=== PATIENT | female | born 1960 | race Caucasian/White ===

== ENCOUNTER 2018-05-09 13:10 | Emergency (ER) | payer OTHER ==
[2018-05-09] MEDS ORDERED: POTASSIUM 25 MEQ EFFERV TAB ONE (14:11)
[2018-05-09 14:29] LABS: Absolute Lymphocytes (CBC) 2.6 K/uL (0.7-4.9); Absolute Monocytes 0.5 K/uL (0.1-1.3); Absolute Neutrophil 7.3 K/uL (1.8-8.0); Basophils % 0.8 % (0-1.3); Hematocrit 40.6 % (36.0-45.0); Lymphocytes % 23.8 % (15.3-44.8); MCH 29.4 pg (27.0-35.0); MCV 87.8 fL (80-100); MPV 8.4 fL (7.6-11.3); Monocytes % 5.1 % (3.3-12.3); RBC Red Blood Cell Count 4.63 M/uL (3.86-4.86)
[2018-05-09 14:37] LABS: Albumin 3.7 g/dL (3.4-5.0); Bilirubin Direct 0.1 mg/dL (0-0.2); Bilirubin Total 0.4 mg/dL (0.2-1.0); Protein, Total 8.1 g/dL (6.4-8.2)
[2018-05-09 14:41] LABS: Potassium 2.6 mmol/L (3.5-5.1)
--- NOTE | 2018-05-09 15:33 | EDPHYS ---
Physician Documentation [facility] Name: Eliza Hill Age: 57 yrs Sex: Female : 1960 Arrival Date: 05/09/2018 Time: 13:13 Bed 28 Private MD: Nitin Fabian ED Physician Ezekiel Urbina HPI: 05/09 17:51 This 57 yrs old Female presents to ER via Ambulatory with complaints of wa Abnormal Lab Results - potassium. 17:51 "I was told to come in because my potassium is low" Per per, Dr. Fabian advised to come wa to ED due to low K on routine labs. admits to feeling generally tired. admits to taking HCTZ. states her doc has already advised her to stop that med. denies CP, SOB, abd pain, dizziness. . Onset: The symptoms/episode began/occurred today. Severity of symptoms: At their worst the symptoms were moderate in the emergency department the symptoms are unchanged. The patient has not experienced similar symptoms in the past. The patient has been recently seen by a physician: the patient's primary care provider, Dr. FABIAN. Historical: - Allergies: 13:38 Tramadol HCl; ph - PMHx: 13:38 COPD; Hypertension; Hypothyroidism; Osteoporosis; Arthritis; Diabetes - NIDDM; Chronic ph pain; - PSHx: 13:38 Hysterectomy; ph - Immunization history:: Adult Immunizations unknown. - Social history:: Smoking status: Patient/guardian denies using tobacco. - Ebola Screening: : No symptoms or risks identified at this time. - Family history:: not pertinent. - Hospitalizations: : No recent hospitalization is reported. ROS: 18:03 Constitutional: Negative for fever, chills, and weight loss, Eyes: Negative for injury, wa pain, redness, and discharge, ENT: Negative for injury, pain, and discharge, Neck: Negative for injury, pain, and swelling, Cardiovascular: Negative for chest pain, palpitations, and edema, Respiratory: Negative for shortness of breath, cough, wheezing, and pleuritic chest pain, Abdomen/GI: Negative for abdominal pain, nausea, vomiting, diarrhea, and constipation, Back: Negative for injury and pain, : Negative for injury, bleeding, discharge, and swelling, MS/Extremity: Negative for injury and deformity, Skin: Negative for injury, rash, and discoloration. 18:03 Neuro: Positive for weakness. 18:03 All other systems are negative. Exam: 18:04 Constitutional: This is a well developed, well nourished patient who is awake, alert, wa and in no acute distress. Head/Face: Normocephalic, atraumatic. Eyes: Pupils equal round and reactive to light, extra-ocular motions intact. Lids and lashes normal. Conjunctiva and sclera are non-icteric and not injected. Cornea within normal limits. Periorbital areas with no swelling, redness, or edema. ENT: Nares patent. No nasal discharge, no septal abnormalities noted. Tympanic membranes are normal and external auditory canals are clear. Oropharynx with no redness, swelling, or masses, exudates, or evidence of obstruction, uvula midline. Mucous membranes moist. Neck: Trachea midline, no thyromegaly or masses palpated, and no cervical lymphadenopathy. Supple, full range of motion without nuchal rigidity, or vertebral point tenderness. No Meningismus. Chest/axilla: Normal chest wall appearance and motion. Nontender with no deformity. No lesions are appreciated. Cardiovascular: Regular rate and rhythm with a normal S1 and S2. No gallops, murmurs, or rubs. Normal PMI, no JVD. No pulse deficits. Respiratory: Lungs have equal breath sounds bilaterally, clear to auscultation and percussion. No rales, rhonchi or wheezes noted. No increased work of breathing, no retractions or nasal flaring. Abdomen/GI: Soft, non-tender, with normal bowel sounds. No distension or tympany. No guarding or rebound. No evidence of tenderness throughout. Back: No spinal tenderness. No costovertebral tenderness. Full range of motion. Skin: Warm, dry with normal turgor. Normal color with no rashes, no lesions, and no evidence of cellulitis. MS/ Extremity: Pulses equal, no cyanosis. Neurovascular intact. Full, normal range of motion. Psych: Awake, alert, with orientation to person, place and time. Behavior, mood, and affect are within normal limits. 18:04 Neuro: Orientation: is normal, Memory: is normal, Cranial nerves: grossly normal. Vital Signs: 13:38 BP 115 / 59; Pulse 66; Resp 22; Temp 97.9; Pulse Ox 92% on R/A; Weight 113.4 kg; Height ph 5 ft. 3 in. (160.02 cm); 14:42 BP 111 / 56; Pulse 67; Resp 18; Pulse Ox 99% on R/A; kr2 15:23 BP 105 / 62; Pulse 70; Resp 17; Pulse Ox 97% on R/A; kr2 13:38 Body Mass Index 44.29 (113.40 kg, 160.02 cm) ph MDM: 13:34 Patient medically screened. me 18:05 Differential Diagnosis hypokalemia. will check labs. will replace. Data reviewed: vital me signs, nurses notes. Test interpretation: by ED physician or midlevel provider: . Test interpretation: by ED physician or midlevel provider: low K noted. ED course: replaced K po. d/c'd with K with close f/u with Dr. Fabian.. 05/09 13:51 Order name: Basic Metabolic Panel; Complete Time: 15:08 me 05/09 13:51 Order name: CBC with Diff; Complete Time: 15:08 me 05/09 13:51 Order name: Hepatic Function; Complete Time: 15:08 me 05/09 13:51 Order name: Urine Microscopic Only me 05/09 15:33 Order name: Urine Dipstick--Ancillary (enter results) 05/09 13:51 Order name: IV Saline Lock; Complete Time: 14:14 me 05/09 13:51 Order name: Labs collected and sent; Complete Time: 14:14 me 05/09 13:51 Order name: Urine Dipstick-Ancillary (obtain specimen); Complete Time: 15:22 me Administered Medications: 14:14 Drug: Potassium Effervescent Tablet 50 mEq Route: PO; kr2 14:43 Follow up: Response: No adverse reaction kr2 Disposition: 05/09/18 15:33 Discharged to Home. Impression: Acute Hypokalemia. - Condition is Stable. - Discharge Instructions: Hypokalemia. - Prescriptions for Potassium Chloride 10 mEq Oral Capsule, Sustained Release - take 4 tablet by ORAL route once daily for 5 days; 20 tablet. - Medication Reconciliation Form, Thank You Letter, Antibiotic Education, Prescription Opioid Use form. - Follow up: Nitin Fabian MD; When: 1 - 2 days; Reason: Recheck today's complaints. - Problem is new. - Symptoms have improved. - Notes: take potassium as prescribed. follow up with your doctor within 2-3 days for further assessement Signatures: Dispatcher [employer] Gin Worrell, RN RN Ezekiel Urbina MD MD wa Reaves, Karey RN RN kr2 Corrections: (The following items were deleted from the chart) 15:42 15:33 05/09/2018 15:33 Discharged to Home. Impression: Acute Hypokalemia. Condition is kr2 Stable. Forms are Medication Reconciliation Form, Thank You Letter, Antibiotic Education, Prescription Opioid Use. Follow up: Nitin Fabian; When: 1 - 2 days; Reason: Recheck today's complaints. Problem is new. Symptoms have improved. raissa
--- NOTE | 2018-05-09 15:33 | ER ---
Nurse's Notes [facility] Name: Eliza Hill Age: 57 yrs Sex: Female : 1960 Arrival Date: 05/09/2018 Time: 13:13 Bed 28 Private MD: Nitin Fabian Diagnosis: Acute Hypokalemia Presentation: 05/09 13:34 Presenting complaint: Patient states: " I had my bl;ood drawn this morning and they ph said my potassium was 2.8 and to come to the ER." Pt denies chest pain or palpitations, reports fatigue and idalmis lower leg tingling. Transition of care: patient was not received from another setting of care. Onset of symptoms was May 09, 2018. Risk Assessment: Do you want to hurt yourself or someone else? Patient reports no desire to harm self or others. Initial Sepsis Screen: Does the patient meet any 2 criteria? No. Patient's initial sepsis screen is negative. Does the patient have a suspected source of infection? No. Patient's initial sepsis screen is negative. Care prior to arrival: None. 13:34 Method Of Arrival: Ambulatory ph 13:34 Acuity: JENNA 3 ph Historical: - Allergies: 13:38 Tramadol HCl; ph - PMHx: 13:38 COPD; Hypertension; Hypothyroidism; Osteoporosis; Arthritis; Diabetes - NIDDM; Chronic ph pain; - PSHx: 13:38 Hysterectomy; ph - Immunization history:: Adult Immunizations unknown. - Social history:: Smoking status: Patient/guardian denies using tobacco. - Ebola Screening: : No symptoms or risks identified at this time. - Family history:: not pertinent. - Hospitalizations: : No recent hospitalization is reported. Screenin:30 Abuse screen: Denies threats or abuse. Denies injuries from another. Nutritional kr2 screening: No deficits noted. Tuberculosis screening: No symptoms or risk factors identified. Fall Risk None identified. Assessment: 13:30 General: Appears in no apparent distress. comfortable, well groomed, well developed, kr2 well nourished, Behavior is calm, cooperative, appropriate for age. Pain: Denies pain. Neuro: Level of Consciousness is awake, alert, obeys commands, Oriented to person, place, time, situation, Reports paresthesias in right leg and left leg. Cardiovascular: Heart tones S1 S2 Capillary refill < 3 seconds in bilateral fingers Patient's skin is warm and dry. Rhythm is regular. Cardiovascular: Reports fatigue, Denies chest pain. Respiratory: Airway is patent Respiratory effort is even, unlabored, Respiratory pattern is regular, symmetrical. GI: Abdomen is flat, non-distended. : Denies burning with urination. EENT: Oral mucosa is dry. Derm: Skin is intact, with poor turgor Skin is pink, warm \\T\\ dry. Musculoskeletal: Circulation, motion, and sensation intact. 14:43 Reassessment: Patient appears in no apparent distress at this time. Patient and/or kr2 family updated on plan of care and expected duration. Pain level reassessed. Patient is alert, oriented x 3, equal unlabored respirations, skin warm/dry/pink. Patient denies pain at this time. 15:22 Reassessment: Patient appears in no apparent distress at this time. Patient and/or kr2 family updated on plan of care and expected duration. Pain level reassessed. Patient is alert, oriented x 3, equal unlabored respirations, skin warm/dry/pink. Patient denies pain at this time. Vital Signs: 13:38 BP 115 / 59; Pulse 66; Resp 22; Temp 97.9; Pulse Ox 92% on R/A; Weight 113.4 kg; Height ph 5 ft. 3 in. (160.02 cm); 14:42 BP 111 / 56; Pulse 67; Resp 18; Pulse Ox 99% on R/A; kr2 15:23 BP 105 / 62; Pulse 70; Resp 17; Pulse Ox 97% on R/A; kr2 13:38 Body Mass Index 44.29 (113.40 kg, 160.02 cm) ph ED Course: 13:13 Patient arrived in ED. sb2 13:14 Nitin Fabian MD is Private Physician. sb2 13:30 Patient has correct armband on for positive identification. Bed in low position. Call kr2 light in reach. Side rails up X 1. residential monitor on. Pulse ox on. NIBP on. Door closed. Warm blanket given. Pillow given. Head of bed elevated. 13:33 Ezekiel Urbina MD is Attending Physician. wa 13:35 Triage completed. ph 13:39 Arm band placed on. ph 13:39 EKG done, by head of academic technology. reviewed by Ezekiel Urbina MD. sm3 13:56 Dolores Faulkner, RN is Primary Nurse. kr2 14:00 Inserted saline lock: 22 gauge in left antecubital area, using aseptic technique. Blood kr2 collected. 15:10 Urine collected: clean catch specimen, clear. kr2 15:32 Nitin Fabian MD is Referral Physician. wa 15:41 No provider procedures requiring assistance completed. IV discontinued, intact, kr2 bleeding controlled, No redness/swelling at site. Pressure dressing applied. Administered Medications: 14:14 Drug: Potassium Effervescent Tablet 50 mEq Route: PO; kr2 14:43 Follow up: Response: No adverse reaction kr2 Outcome: 15:33 Discharge ordered by . wa 15:41 Discharged to home ambulatory, with family. kr2 15:41 Condition: good 15:41 Discharge instructions given to patient, family, Instructed on discharge instructions, follow up and referral plans. medication usage, Demonstrated understanding of instructions, follow-up care, medications, Prescriptions given X 1. 15:42 Patient left the ED. kr2 Signatures: Gin Ramesh, RN RN Ezekiel Urbina MD MD mt Dolores Faulkner, RN RN kr2 Aster Torre sb2 Sarah Sanchez sm3
[2018-05-09 15:40] LABS: Urine Blood NEGATIVE (NEG); Urine Glucose NEGATIVE (NEG); Urine Protein NEGATIVE (NEG); Urine Specific Gravity 1.025 (1.005-1.030); Urine pH 6.5 (5.0-7.0)
[2018-05-09 15:41] LABS: Urine Bacteria <20 /HPF (<20); Urine Culture Reflex Order NOT NEEDED; Urine Mucus 1+ /HPF (NONE SEEN); Urine RBC <5 /HPF (NONE SEEN)
[2018-05-09 15:56] VITALS: TEMP 97.9
[2018-05-09 15:58] VITALS: BP 105/62; O2SAT 97
--- NOTE | 2018-05-10 13:55 | EKG ---
Test Date: 2018-05-09 Test Time: 13:30:36 Erp Business Analyst: NAHOMI MEASUREMENT RESULTS: Intervals: Rate: 66 UT: 154 QRSD: 84 QT: 390 QTc: 408 [place]: P: 37 UT: 154 QRS: 8 T: 167 INTERPRETIVE STATEMENTS: Normal sinus rhythm Inferior infarct, age undetermined Cannot rule out Anterior infarct, age undetermined ST & T wave abnormality, consider lateral ischemia Abnormal ECG Compared to ECG 02/26/2015 16:32:34 Myocardial infarct finding now present ST (T wave) deviation now present Possible ischemia now present Electronically Signed On 05-10-18 13:52:14 CDT by Apolinar Mccain
== END 2018-05-09 15:42 | disposition home or self-care (01) ==
LOC: ER 13:10
DX: E87.6 Hypokalemia (principal); J44.9 Chronic obstructive pulmonary disease, unspecified; E03.9 Hypothyroidism, unspecified; E11.9 Type 2 diabetes mellitus without complications; I10 Essential (primary) hypertension
CPT/HCPCS: 36415; 80048; 80076; 81003; 81015; 85025; 93005; 99284

== ENCOUNTER 2020-03-03 19:41 | Emergency (ER) | payer OTHER ==
--- OUTSIDE RECORDS SUMMARY | 2020-03-03 19:44 | XMS REPORT ---
:1960 Author Organization [facility] t Address [address] [place] [address] [address]. [address] [place] [address] Care Team Providers Name Role Phone Unavailable Unavailable Unavailable Problems Condition Condition Condition Status Onset Resolution Last Treatin g Comments Name Details Category Date Date Treatment Clinician Date Dependence Dependence Problem Active on other on other enabling enabling machines machines and devices and devices Essential Essential Problem Active (primary) (primary) hypertensio hypertensio n n Obstructive Obstructive Problem Active sleep apnea sleep apnea (adult) (adult) (pediatric) (pediatric) Acquired Acquired Problem Active hypothyroid hypothyroid ism ism Generalized Generalized Problem Active anxiety anxiety disorder disorder GERD GERD Problem Active without without esophagitis esophagitis Current Current Problem Active moderate moderate episode of episode of major major depressive depressive disorder disorder without without prior prior episode episode Chronic Chronic Problem Active depression depression Restless Restless Problem Active leg leg syndrome syndrome Morbid Morbid Problem Active (severe) (severe) obesity due obesity due to excess to excess calories calories Insomnia, Insomnia, Problem Active unspecified unspecified type type Controlled Controlled Problem Active type 2 type 2 diabetes diabetes mellitus mellitus without without complicatio complicatio n, without n, without long-term long-term current use current use of insulin of insulin Primary Primary Problem Active osteoarthri osteoarthri tis of both tis of both knees knees Status post Status post Problem Active right knee right knee replacement replacement Chronic Chronic Problem Active obstructive obstructive pulmonary pulmonary disease, disease, unspecified unspecified COPD type COPD type Mixed Mixed Problem Active hyperlipide hyperlipide tonya tonya Urinary Urinary Problem Active incontinenc incontinenc e, e, unspecified unspecified type type Mixed Mixed Problem Active stress and stress and urge urge urinary urinary incontinenc incontinenc e e Status post Status post Problem Active total left total left knee knee replacement replacement Allergies, Adverse Reactions, Alerts Allergy Name Allergy Status Severity Reaction(s) Onset Inactive Treat ing Comments Type Date Date Clinician Toradol Adverse Active Info Not Reaction Available Wellbutrin Adverse Active Info Not Reaction Available Medications Ordered Filled Start Stop Current Ordering Indication Dosage Frequency Signature Comments Components Medication Medication Date Date Medication? Clinician (SIG) Name Name Levi Sims 2019-0 2019- No Reji 1 puff Karen Jones 02-27 Farris 00:00: 00:00 00 :00 HydrOXYzine HydrOXYzine Yes Reji 1 table t HCl HCl Farris as needed Ropinirole Ropinirole Yes Reji 1 tablet 1 HCl HCl Farris to 3 hours before bedtime ReliOn ReliOn Yes Reji as Prime Test Prime Test Farris directed Pantoprazol Pantoprazol Yes Reji 1 table t e Sodium e Sodium Farris Verapamil Verapamil Yes Reji 1 tablet HCl ER HCl ER Farris Accu-Chek Accu-Chek Yes Reji as FastClix FastClix Farris directed Lancets Lancets Albuterol Albuterol Yes Reji 3 ml as Sulfate Sulfate Farris needed CPAP CPAP Yes Reji nightly Machine Machine Farris Clonazepam Clonazepam Yes Reji 1 tablet Farris at bedtime Levothyroxi Levothyroxi Yes Reji 1 table t ne Sodium ne Sodium Farris on an empty stomach in the morning Losartan Losartan Yes Reji 1 tablet Potassium Potassium Farris Metformin Metformin Yes Reji 1 tablet HCl HCl Farris with a meal Atorvastati Atorvastati Yes Reji 1 table t n Calcium n Calcium Farris Gabapentin Gabapentin Yes Reji 1 capsule Farris OneTouch OneTouch Yes Reji TEST BLOOD Verio Verio Farris SUGAR ONCE A DAY Losartan Losartan Yes Reji 1 tablet Potassium Potassium Farris Quetiapine Quetiapine Yes Reji 1 tablet Fumarate Fumarate Farris Venlafaxine Venlafaxine Yes Reji 1 capsu le HCl ER HCl ER Farris with food Spironolact Spironolact Yes Reji 1 table t one one Farris Diclofenac Diclofenac Yes Reji as Sodium Sodium Farris directed Hydrocodone Hydrocodone Yes Reji 1 table t -Acetaminop -Acetaminop Farris as neede d hen hen Metformin Metformin Yes Reji 1/2 tablet HCl HCl Farris Pantoprazol Pantoprazol Yes Reji 1 table t e Sodium e Sodium Farris Amitriptyli Amitriptyli Yes Reji 1 table t ne HCl ne HCl Farris at bedtime Sertraline Sertraline Yes Reji 1 tablet HCl HCl Farris Encounters Start End Encounter Admission Attending Care Care Encounter Date/Time Date/Time Type Type Clinicians Facility Department ID 2020-01-22 2020-01-22 [id number] 08:39:00 08:39:00 [facility] 2020-01-20 2020-01-20 [facility] [id number] 11:28:00 11:28:00 [facility] 2020-01-02 2020-01-02 [id number] 14:00:00 14:00:00 [facility] 2019-12-23 2019-12-23 [facility] [id number] 15:26:00 15:26:00 [facility] 2019-12-04 2019-12-04 [facility] [id number] 13:45:00 13:45:00 [facility] 2019-11-27 2019-11-27 [facility] [id number] 11:15:00 11:15:00 [facility] 2019-10-31 2019-10-31 [facility] [id number] 17:29:00 17:29:00 [facility] 2019-09-30 2019-09-30 [facility] [id number] 16:54:00 16:54:00 [facility] 2019-09-04 2019-09-04 [facility] [id number] 09:00:00 09:00:00 [facility] 2019-05-30 2019-05-30 [id number] 10:45:00 10:45:00 Specialty/U [facility] 2019-05-20 2019-05-20 [facility] [id number] 15:00:00 15:00:00 [facility] 2019-05-08 2019-05-08 [facility] [id number] 09:45:00 09:45:00 [facility] 2019-04-03 2019-04-03 [id number] 12:00:00 12:00:[address] [facility] 2019-03-01 2019-03-01 [facility] [id number] 09:51:00 09:51:[address] [facility] 2019-02-27 2019-02-27 [facility] [id number] 13:45:00 13:45:[address] [facility] 2019-02-04 2019-02-04 [id number] 14:34:00 14:34:[address] [facility] 2019-01-30 2019-01-30 [facility] [id number] 10:33:00 10:33:[address] [facility] 2019-01-29 2019-01-29 [id number] 14:00:00 14:00:[address] [facility] 2018-12-26 2018-12-26 [facility] [id number] 16:11:00 16:11:[address] [facility] 2018 2018 [id number] 14:30:00 14:30:[address] [facility] 2018-12-12 2018-12-12 [id number] 14:31:00 14:31:[address] [facility] 2018-12-11 2018-12-11 [id number] 14:00:00 14:00:[address] [facility] 2018-12-11 2018-12-11 [id number] 09:30:00 09:30:00 [facility] 2018-12-05 2018-12-05 [id number] 09:21:00 09:21:[address] [facility] 2018-12-04 2018-12-04 [id number] 14:45:00 [facility]45:[facility] 2018-12-04 2018-12-04 [id number] 12:18:00 12:18:00 [facility] [employer] [facility] 2018-11-28 2018-11-28 [facility] [id number] 14:45:00 14:45:00 [facility] [employer] [facility] 2018-11-27 2018-11-27 [facility] [id number] 12:23:00 12:23:00 [facility] [employer] [facility] 2018-11-05 2018-11-05 [facility] [id number] 15:27:00 15:27:00 [facility] [employer] [facility] 2018-10-29 2018-10-29 [facility] [id number] 15:06:00 15:06:00 [facility] 2018-10-02 2018-10-02 [facility] [id number] 14:30:00 14:30:00 [facility]
--- OUTSIDE RECORDS SUMMARY | 2020-03-03 19:45 | XMS REPORT ---
:1960 Author Organization [employer] Care Team Providers Name Role Phone FarrisReji Provider Role Unavailable Allergies No Known Allergies Problems Problem Type Condition Code Onset Dates Condition Statu s Problem Chronic depression F32.9 Active Problem 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 Problem Primary osteoarthritis of both M17.0 Active knees Problem Morbid (severe) obesity due to E66.01 Active excess calories Problem Essential (primary) hypertension I10 Active Problem Acquired hypothyroidism E03.9 Acti ve Problem GERD without esophagitis K21.9 Act nadine Problem Insomnia, unspecified type G47.00 A ctive Problem Controlled type 2 diabetes mellitus E11.9 Active without complication, without long-term current use of insulin Problem Status post right knee replacement Z96.651 Active Problem Obstructive sleep apnea (adult) G47.33 Active (pediatric) Problem Restless leg syndrome G25.81 Active Problem Current moderate episode of major F32.1 Active depressive disorder without prior episode Problem Generalized anxiety disorder F41.1 Active Medications No Known Medications Results No Known Results Summary Purpose [employer] Submission
--- OUTSIDE RECORDS SUMMARY | 2020-03-03 19:45 | XMS REPORT ---
:1960 Author Organization [employer]Works Care Team Providers Name Role Phone Talya Farrish Provider Role Unavailable Allergies, Adverse Reactions, Alerts Substance Reaction Event Type Toradol Info Not Available Drug Allergy Wellbutrin Info Not Available Drug Allergy Problems Problem Type Condition Code Onset Dates Condition Statu s Problem Chronic depression F32.9 Active Problem 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 Problem Primary osteoarthritis of both M17.0 Active knees Problem Insomnia, unspecified type G47.00 A ctive [...] episode Problem Generalized anxiety disorder F41.1 Active Assessment Primary osteoarthritis of both M17.0 Active knees Problem Morbid (severe) obesity due to E66.01 Active excess calories Problem Essential (primary) hypertension I10 Active Assessment Status post right knee replacement Z96.651 Active Problem Acquired hypothyroidism E03.9 Acti ve Problem GERD without esophagitis K21.9 Act nadine Medications Medication Code Code Instructions Start End Status Dosage System Date Date Ropinirole HCl ND 18692615579 2 MG Orally Active 1 tablet 1 Once a day to 3 hours before bedtime HydrOXYzine HCl ND 56079942457 25 MG Orally Active 1 tablet every 8 hrs as needed ReliOn Prime Test ND 73435418109 - In Vitro Active as twice a day directed Pantoprazole Sodium NDC 11892822547 40 MG Orally Act nadine 1 tablet Once a day HydrOXYzine HCl NDC 68063729500 50 MG/ML Nov 27, Active 1 t ablet Intramuscular 2019 as needed every 8 hrs PRN for Itching itching Metformin HCl ND 70888308770 500 MG Orally Active 1 tablet Twice a day with a meal Tylenol # 3 NDC 0 300/30mg PO BID Active one tab PRN Verapamil HCl ER ND 55360523851 120 MG Orally Activ e 1 tablet Once a day Accu-Chek FastClix ND 13270322851 - in vitro Active as Lancets twice daily directed Venlafaxine HCl ER ND 04775713282 150 MG Orally Act nadine as directed Venlafaxine HCl ER ND 89282531920 37.5 MG Orally Ac tive 1 capsule Once a day with food Albuterol Sulfate ND 69732042980 (2.5 MG/3ML) Activ e 3 ml as 0.083% needed Inhalation Three times a day MethylPREDNISolone ND 87469304676 4 MG Orally Use Nov 28, A ctive as as directed 2018 directed CPAP Machine ND 0 max pressure 9 Active nigh tly cm of water Losartan Potassium ND 89086948733 100 MG Orally Act nadine 1 tablet Once a day Clonazepam ND 32933458653 0.5 MG Orally Active 1 t ablet Once a day at bedtime Levothyroxine Sodium ND 03848429106 100 MCG Orally Active 1 tablet Once a day on an empty stomach in the morning Quetiapine Fumarate ND 35661407081 200 MG Orally Ac tive 1 tablet Once a day Results No Known Results Summary Purpose eClinicalWorks Submission
--- OUTSIDE RECORDS SUMMARY | 2020-03-03 19:46 | XMS REPORT ---
:1960 Author Organization [employer] Care Team Providers Name Role Phone Brenton Reji Provider Role Unavailable Allergies No Known Allergies Problems Problem Type Condition Code Onset Dates Condition Statu s Problem Controlled type 2 diabetes mellitus E11.9 Active without complication, without long-term current use of insulin Problem Primary osteoarthritis of both M17.0 Active knees Problem Insomnia, unspecified type G47.00 A ctive Problem Chronic obstructive pulmonary J44.9 Active disease, unspecified COPD type Problem Mixed hyperlipidemia E78.2 Active Problem Status post right knee replacement Z96.651 Active Problem Obstructive sleep apnea (adult) G47.33 Active (pediatric) Problem Restless leg syndrome G25.81 Active Problem 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
--- OUTSIDE RECORDS SUMMARY | 2020-03-03 19:46 | XMS REPORT ---
:1960 Author Organization [employer] Care Team Providers Name Role Phone Dary Kristen Provider Role Unavailable Allergies, Adverse Reactions, Alerts Substance Reaction Event Type Toradol Info Not Available Drug Allergy Wellbutrin Info Not Available Drug Allergy Problems Problem Type Condition Code Onset Dates Condition Statu s Problem Primary osteoarthritis of both M17.0 Active knees Problem Obstructive sleep apnea (adult) G47.33 Active (pediatric) Problem Restless leg syndrome G25.81 Active Problem Urinary incontinence, unspecified R32 Active type Problem Status post right knee replacement Z96.651 Active Problem Mixed stress and urge 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 Problem 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 Problem Generalized anxiety disorder F41.1 Active Problem Chronic obstructive pulmonary J44.9 Active disease, unspecified COPD type Problem Mixed hyperlipidemia E78.2 Active Problem Morbid (severe) obesity due to E66.01 Active excess calories Problem GERD without esophagitis K21.9 Act nadine Assessment Mixed stress and urge 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 Problem Chronic depression F32.9 Active Problem Current moderate episode of major F32.1 Active depressive disorder without prior episode Problem Essential (primary) hypertension I10 Active Problem Controlled type 2 diabetes mellitus E11.9 Active without complication, without long-term current use of insulin Problem Acquired hypothyroidism E03.9 Acti ve Problem Insomnia, unspecified type G47.00 A ctive Medications Medication Code Code Instructions Start End Status Dosage System Date Date Levothyroxine ND 73130243754 100 MCG Orally Active 1 tablet Sodium Once a day on an empty stomach in the morning Quetiapine ND 19446141685 200 MG Orally Active 1 t ablet Fumarate Once a day Ropinirole HCl ND 99415452282 2 MG Orally Active 1 tablet 1 Once a day to 3 hours before bedtime Verapamil HCl ER ND 70443467170 120 MG Orally Activ e 1 tablet Once a day Metformin HCl ND 09072314051 500 MG Orally Active 1 tablet Twice a day with a meal Atorvastatin ND 16228289050 20 MG Orally Active 1 tablet Calcium Once a day Albuterol ND 10650716640 (2.5 MG/3ML) Active 3 ml as Sulfate 0.083% needed Inhalation Three times a day Clonazepam ND 59690279979 0.5 MG Orally Active 1 t ablet Once a day at bedtime Levothyroxine ND 65535707716 100 MCG Orally Active 1 tablet Sodium Once a day on an empty stomach in the morning Accu-Chek [facility] 36474969223 - in vitro Active as FastClix Lancets twice daily dir ected Metformin HCl [facility] 92380789172 500 MG Orally Active 1 tablet Twice a day with a meal Venlafaxine HCl [facility] 87066199595 150 MG Orally Active as ER directed HydrOXYzine HCl [facility] 10210685556 25 MG Orally Active 1 tablet every 8 hrs as needed Breo Ellipta [facility] 73013000748 100-25 MCG/INH Active 1 puff Inhalation Once a day CPAP Machine [facility] 0 max pressure 9 Active nigh tly cm of water Pantoprazole [facility] 54593051394 40 MG Orally Active 1 tablet Sodium Once a day Hydrocodone-Acet [facility] [address]-51 7.5-500 MG Active as aminophen Orally directed Pantoprazole [facility] 19501403441 40 MG Orally Active 1 tablet Sodium Once a day ReliOn Prime [facility] 74495217730 - In Vitro Active as Test twice a day directed Losartan [facility] 53326382314 100 MG Orally Active 1 tab let Potassium Once a day Losartan [facility] 35279684078 100 MG Orally Active 1 tab let Potassium Once a day Results Name Result Date Reference Range Unit Abnormali ty Flag URINALYSIS AUTO W/O SCOPE (37993) ----NIT neg 20190530 ----URO 0.2 20190530 ----PROTEIN neg 20190530 ----pH 5.0 20190530 ----BLO neg 20190530 ----GLUCOSE neg 20190530 ----RITA neg 20190530 ----BILIRUBIN neg 20190530 ----KETONES neg 20190530 ----SPECIFIC GRAVITY 1.015 20190530 Summary Purpose eClinicalWorks Submission
--- OUTSIDE RECORDS SUMMARY | 2020-03-03 19:46 | XMS REPORT ---
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 Assessment Obstructive sleep apnea (adult) G47.33 Active (pediatric) Assessment Generalized anxiety disorder F41.1 Active Assessment Current moderate episode of major F32.1 Active depressive disorder without prior episode Assessment Morbid (severe) obesity due to E66.01 Active excess calories Assessment Primary osteoarthritis of both M17.0 Active knees Problem Chronic depression F32.9 Active Assessment Chronic obstructive pulmonary J44.9 Active disease, unspecified COPD type Problem Current moderate episode of major F32.1 Active depressive disorder without prior episode Assessment Restless leg syndrome G25.81 Active Problem Controlled type 2 diabetes mellitus E11.9 Active without complication, without long-term current use of insulin Problem Primary osteoarthritis of both M17.0 Active knees Problem Insomnia, unspecified type G47.00 A ctive Problem Chronic obstructive pulmonary J44.9 Active disease, unspecified COPD type Problem Mixed hyperlipidemia E78.2 Active Assessment Acquired hypothyroidism E03.9 Acti ve Assessment Insomnia, unspecified type G47.00 A ctive Problem Status post right knee replacement Z96.651 Active Assessment GERD without esophagitis K21.9 Act nadine Problem Obstructive sleep apnea (adult) G47.33 Active (pediatric) Problem Restless leg syndrome G25.81 Active Problem 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 Problem Generalized anxiety disorder F41.1 Active Assessment Mixed hyperlipidemia E78.2 Active Assessment Essential (primary) hypertension I10 Active Assessment Controlled type 2 diabetes mellitus E11.9 Active without complication, without long-term current use of insulin Problem Essential (primary) hypertension I10 Active Problem Acquired hypothyroidism E03.9 Acti ve Problem Morbid (severe) obesity due to E66.01 Active excess calories Problem GERD without esophagitis K21.9 Act nadine Medications Medication Code Code Instructions Start End Status Dosage System Date Date Atorvastatin ND 78802844468 10 MG Orally February 27, Active 1 tablet Calcium Once a day 2018 Breo Ellipta ND 11955615714 100-25 MCG/INH February 27May Active 1 puff Inhalation Once 2018 06, a day 2018 CPAP Machine [facility] 0 max pressure 9 Active nigh tly cm of water HydrOXYzine HCl ND 68872449227 25 MG Orally Active 1 tablet every 8 hrs as needed Losartan ND 25474761630 100 MG Orally Active 1 tab let Potassium Once a day Ropinirole HCl ND 40146690094 2 MG Orally Active 1 tablet 1 Once a day to 3 hours before bedtime Levothyroxine ND 52396038490 100 MCG Orally Active 1 tablet Sodium Once a day on an empty stomach in the morning Metformin HCl ND 70625776079 500 MG Orally Active 1 tablet Twice a day with a meal Verapamil HCl ER ND 98325207818 120 MG Orally Activ e 1 tablet Once a day Albuterol ND 28552088983 (2.5 MG/3ML) Active 3 ml as Sulfate 0.083% needed Inhalation Three times a day ReliOn Prime ND 17033362611 - In Vitro Active as Test twice a day directed Accu-Chek [facility] 52274734550 - in vitro Active as FastClix Lancets twice daily dir ected Levothyroxine ND 62748059954 100 MCG Orally Active 1 tablet Sodium Once a day on an empty stomach in the morning Clonazepam ND 19662746885 0.5 MG Orally Active 1 t ablet Once a day at bedtime Venlafaxine HCl ND 39448515875 150 MG Orally Active as ER directed Hydrocodone-Acet [facility] [address]-25 7.5-500 MG Active as aminophen Orally directed Quetiapine ND 64724810853 200 MG Orally Active 1 t ablet Fumarate Once a day Pantoprazole ND 39289215774 40 MG Orally Active 1 tablet Sodium Once a day Venlafaxine HCl ND 62911439136 37.5 MG Orally Activ e 1 capsule ER Once a day with food Results No Known Results Summary Purpose eClinicalWorks Submission
--- OUTSIDE RECORDS SUMMARY | 2020-03-03 19:46 | XMS REPORT ---
[...] Problem Generalized anxiety disorder F41.1 Active Assessment Follow-up exam Z09 Active Assessment Intractable headache, unspecified R51 Active chronicity pattern, unspecified headache type Problem Essential (primary) hypertension I10 Active Problem Acquired hypothyroidism E03.9 Acti ve Problem Morbid (severe) obesity due to E66.01 Active excess calories Problem Chronic depression F32.9 Active Problem GERD without esophagitis K21.9 Act nadine Problem Current moderate episode of major F32.1 Active depressive disorder without prior episode Medications Medication Code Code Instructions Start End Status Dosage System Date Date Levothyroxine ND 97381144799 100 MCG Orally Active 1 tablet Sodium Once a day on an empty stomach in the morning Clonazepam ND 02804587954 0.5 MG Orally Active 1 t ablet Once a day at bedtime ReliOn Prime ND 61487023438 - In Vitro Active as Test twice a day directed Accu-Chek [facility] 84196818369 - in vitro Active as FastClix Lancets twice daily dir ected Verapamil HCl ER ND 83381963431 120 MG Orally Activ e 1 tablet Once a day Atorvastatin ND 96242413380 10 MG Orally February 27, Active 1 tablet Calcium Once a day 2018 Albuterol [facility] 29421321921 (2.5 MG/3ML) Active 3 ml as Sulfate 0.083% needed Inhalation Three times a day Venlafaxine HCl ND 05792374946 150 MG Orally Active as ER directed Pantoprazole ND 44667794584 40 MG Orally Active 1 tablet Sodium Once a day Metformin HCl [facility] 99328350875 500 MG Orally Active 1 tablet Twice a day with a meal Quetiapine ND 20922487397 200 MG Orally Active 1 t ablet Fumarate Once a day CPAP Machine [facility] 0 max pressure 9 Active nigh tly cm of water Ropinirole HCl [facility] 43883333393 2 MG Orally Active 1 tablet 1 Once a day to 3 hours before bedtime HydrOXYzine HCl [facility] 12687879275 25 MG Orally Active 1 tablet every 8 hrs as needed Hydrocodone-Acet [facility] [address]-82 7.5-500 MG Active as aminophen Orally directed Breo Ellipta [facility] 79540941813 100-25 MCG/INH February 27May Active 1 puff Inhalation Once 2018 06, a day 2018 Losartan [facility] 14419942378 100 MG Orally Active 1 tab let Potassium Once a day Results No Known Results Summary Purpose eClinicalWorks Submission
--- OUTSIDE RECORDS SUMMARY | 2020-03-03 19:46 | XMS REPORT ---
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 Assessment Generalized anxiety disorder F41.1 Active Assessment Current moderate episode of major F32.1 Active depressive disorder without prior episode Assessment Morbid (severe) obesity due to E66.01 Active excess calories Assessment Primary osteoarthritis of both M17.0 Active knees Assessment Chronic obstructive pulmonary J44.9 Active disease, unspecified COPD type Problem Current moderate episode of major F32.1 Active depressive disorder without prior episode Assessment Restless leg syndrome G25.81 Active Problem Controlled type 2 diabetes mellitus E11.9 Active without complication, without long-term current use of insulin Assessment GERD without esophagitis K21.9 Act nadine Problem Insomnia, unspecified type G47.00 A ctive Problem Restless leg syndrome G25.81 Active Problem Primary osteoarthritis of both M17.0 Active knees Problem Status post right knee replacement Z96.651 Active Problem Chronic obstructive pulmonary J44.9 Active disease, unspecified COPD type Assessment Essential (primary) hypertension I10 Active Assessment Acquired hypothyroidism E03.9 Acti ve Problem Urinary incontinence, unspecified R32 Active type Assessment Insomnia, unspecified type G47.00 A ctive Problem Generalized anxiety disorder F41.1 Active Problem Obstructive sleep apnea (adult) G47.33 Active (pediatric) Problem Mixed hyperlipidemia E78.2 Active Problem 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 82213312342 150 MG Orally Active as ER directed Albuterol [facility] 32354496195 (2.5 MG/3ML) Active 3 ml as Sulfate 0.083% needed Inhalation Three times a day Levothyroxine ND 25134175049 100 MCG Orally Active 1 tablet Sodium Once a day on an empty stomach in the morning Pantoprazole [facility] 98867495971 40 MG Orally Active 1 tablet Sodium Once a day Clonazepam ND 82653341190 0.5 MG Orally Active 1 t ablet Once a day at bedtime Verapamil HCl ER ND 65851525397 120 MG Orally Activ e 1 tablet Once a day CPAP Machine [facility] 0 max pressure 9 Active nigh tly cm of water HydrOXYzine HCl [facility] 68184592316 25 MG Orally Active 1 tablet every 8 hrs as needed Breo Ellipta [facility] 46158238524 100-25 MCG/INH Active 1 puff Inhalation Once a day Metformin HCl [facility] 50548846298 500 MG Orally Active 1 tablet Twice a day with a meal ReliOn Prime [facility] 03391716900 - In Vitro Active as Test twice a day directed Losartan [facility] 98646088749 100 MG Orally Active 1 tab let Potassium Once a day Levothyroxine [facility] 36826929445 100 MCG Orally Active 1 tablet Sodium Once a day on an empty stomach in the morning Metformin HCl [facility] 17940623152 500 MG Orally Active 1 tablet Twice a day with a meal Hydrocodone-Acet [facility] [address]-65 7.5-500 MG Active as aminophen Orally directed Losartan [facility] 29965363668 100 MG Orally Active 1 tab let Potassium Once a day Pantoprazole ND 64563205635 40 MG Orally Active 1 tablet Sodium Once a day Atorvastatin ND 63077194432 20 MG Orally Active 1 tablet Calcium Once a day Ropinirole HCl [facility] 77472445073 2 MG Orally Active 1 tablet 1 Once a day to 3 hours before bedtime Quetiapine ND 56652974632 200 MG Orally Active 1 t ablet Fumarate Once a day Accu-Chek [facility] 72558237758 - in vitro Active as FastClix Lancets twice daily dir ected Results No Known Results Summary Purpose eClinicalWorks Submission
--- OUTSIDE RECORDS SUMMARY | 2020-03-03 19:47 | XMS REPORT ---
[...] GERD without esophagitis K21.9 Act nadine Assessment Chronic depression F32.9 Active Problem Chronic depression F32.9 Active Problem Current moderate episode of major F32.1 Active depressive disorder without prior episode Problem Essential (primary) hypertension I10 Active Problem Controlled type 2 diabetes mellitus E11.9 Active without complication, without long-term current use of insulin Problem Acquired hypothyroidism E03.9 Acti ve Problem Insomnia, unspecified type G47.00 A ctive Medications No Known Medications Results No Known Results Summary Purpose eClinicalWorks Submission
--- OUTSIDE RECORDS SUMMARY | 2020-03-03 19:47 | XMS REPORT ---
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 Assessment Urinary incontinence, unspecified R32 Active type Assessment Generalized anxiety disorder F41.1 Active Assessment Obstructive sleep apnea (adult) G47.33 Active (pediatric) Assessment Current moderate episode of major F32.1 Active depressive disorder without prior episode Assessment Morbid (severe) obesity due to E66.01 Active excess calories Assessment Primary osteoarthritis of both M17.0 Active knees Assessment Chronic obstructive pulmonary J44.9 Active disease, unspecified COPD type Assessment Restless leg syndrome G25.81 Active Problem Controlled type 2 diabetes mellitus E11.9 Active without complication, without long-term current use of insulin Assessment GERD without esophagitis K21.9 Act nadine Problem Insomnia, unspecified type G47.00 A ctive Assessment Insomnia, unspecified type G47.00 A ctive Problem Primary osteoarthritis of both M17.0 Active knees Problem Obstructive sleep apnea (adult) G47.33 Active (pediatric) Problem Restless leg syndrome G25.81 Active Problem Urinary incontinence, unspecified R32 Active type Problem Status post right knee replacement Z96.651 Active Assessment Controlled type 2 diabetes mellitus E11.9 Active without complication, without long-term current use of insulin Assessment Essential (primary) hypertension I10 Active Problem Mixed stress and urge 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 Assessment Acquired hypothyroidism E03.9 Acti ve Problem 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 Problem Generalized anxiety disorder F41.1 Active Problem Chronic obstructive pulmonary J44.9 Active disease, unspecified COPD type Problem Mixed hyperlipidemia E78.2 Active Problem Morbid (severe) obesity due to E66.01 Active excess calories Problem GERD without esophagitis K21.9 Act nadine Assessment Mixed hyperlipidemia E78.2 Active Problem Chronic depression F32.9 Active Problem Current moderate episode of major F32.1 Active depressive disorder without prior episode Problem Essential (primary) hypertension I10 Active Problem Acquired hypothyroidism E03.9 Acti ve Medications Medication Code Code Instructions Start End Status Dosage System Date Date CPAP Machine ND 0 max pressure 9 Active nigh tly cm of water Quetiapine ND 91364004310 200 MG Orally Active 1 t ablet Fumarate Once a day Metformin HCl [facility] 76440889713 500 MG Orally Active 1 tablet Twice a day with a meal Losartan ND 82948019834 100 MG Orally Active 1 tab let Potassium Once a day Gabapentin ND 06889227208 300 MG Orally Active 1 c apsule Once a day Breo Ellipta [facility] 43117906104 100-25 MCG/INH Active 1 puff Inhalation Once a day Ropinirole HCl [facility] 90059356608 2 MG Orally Active 1 tablet 1 Once a day to 3 hours before bedtime Atorvastatin [facility] 77983105228 20 MG Orally Active 1 tablet Calcium Once a day ReliOn Prime [facility] 98883592166 - In Vitro Active as Test twice a day directed Venlafaxine HCl [facility] 99025275635 150 MG Orally Active as ER directed Atorvastatin [facility] 66058520609 20 MG Orally Active 1 tablet Calcium Once a day Verapamil HCl ER [facility] 94679167170 120 MG Orally Activ e 1 tablet Once a day Hydrocodone-Acet [facility] [address]-72 7.5-500 MG Active as aminophen Orally directed Clonazepam [facility] 88541412181 0.5 MG Orally Active 1 t ablet Once a day at bedtime Levothyroxine [facility] 35492539531 100 MCG Orally Active 1 tablet Sodium Once a day on an empty stomach in the morning HydrOXYzine HCl [facility] 96585666464 25 MG Orally Active 1 tablet every 8 hrs as needed Venlafaxine HCl [facility] 69397082446 75 MG Orally Active 1 tablet Once a day with food Pantoprazole [facility] 40684871667 40 MG Orally Active 1 tablet Sodium Once a day Accu-Chek [facility] 41614635981 - in vitro Active as FastClix Lancets twice daily dir ected Albuterol [facility] 99477191433 (2.5 MG/3ML) Active 3 ml as Sulfate 0.083% needed Inhalation Three times a day Results No Known Results Summary Purpose eClinicalWorks Submission
--- OUTSIDE RECORDS SUMMARY | 2020-03-03 19:47 | XMS REPORT ---
[...] GERD without esophagitis K21.9 Act nadine Problem Chronic depression F32.9 Active Problem Current [...]
--- OUTSIDE RECORDS SUMMARY | 2020-03-03 19:47 | XMS REPORT | Summary of Care ---
:1960 Author Organization [facility] Address [address] [place] [address] Care Team Providers Name Role Phone Rey Farris Primary Care Provider Reason for Visit Reason Comments Refill Request Encounter Details Date Type Department Care Team Description 06/13/2019 Refill [facility] Orthopaedic Rolf, Steven rain S, PAC Refill Request Surgery- [place] [address], [place] [address] [place] [address] [address] [place] [address] [phone] Allergies Active Allergy Reactions Severity Noted Date Comments Bupropion Hcl Itching 04/06/2016 Codeine Itching 08/04/2015 Hyper- is able to take but has to have a counter reaction for th e itching. - per pt. No longer aller gic, when she takes codeine she has to eat.Eliza rasheed MA 01/18/2016 4:26 PM Latex, Natural Rubber Itching Medium 01/08/2019 Ketorolac Tromethamine Anaphylaxis 08/04/2015 Bupropion Unknown - See comments 08/04/2015 Zolpidem Unknown - See comments 04/06/2016 Sleep walk documented as of this encounter (statuses as of 06/13/2019) Medications Medication Sig Dispensed Refills Start Date End Date Status losartan (COZAAR) 50 mg 100 mg daily. 0 07/14/2015 Active tablet HYDROcodone-acetaminophe Take 1 tablet 0 Active n (NORCO) 10-325 mg by mouth every tablet 6 (six) hours as needed. verapamil (VERELAN PM) Take 120 mg by 0 Active 120 mg 24 hr capsule mouth. atorvastatin 80 mg Take 80 mg by 0 Active tablet mouth. Levothyroxine 100 mcg Take 100 mcg 0 Active capsule by mouth. BREO ELLIPTA 100-25 0 03/25/2016 Active mcg/dose DsDv QUEtiapine 200 mg tablet Take 200 mg by 0 Active mouth at bedtime. metFORMIN 500 mg tablet Take 500 mg by 0 Active mouth 2 (two) times daily with meals. rOPINIRole 2 mg tablet Take 2 mg by 0 Active mouth at bedtime. venlafaxine XR 150 mg 24 Take 150 mg by 0 Active hr capsule mouth daily with breakfast. venlafaxine XR 37.5 mg Take 37.5 mg 0 Active 24 hr capsule by mouth daily with breakfast. clonazePAM 0.5 mg Take 0.5 mg by 0 Active tabletIndications: mouth at 1/2tab bedtime. pantoprazole 40 mg EC Take 40 mg by 0 Active tablet mouth daily. amitriptyline 75 mg Take 75 mg by 0 Active tablet mouth at bedtime. cyclobenzaprine 5 mg Take 1 tablet 15 tablet 0 05/05/2019 Active tabletIndications: by mouth 3 Intractable headache, (three) times unspecified chronicity daily. pattern, unspecified headache type cyclobenzaprine 5 mg Take 1 tablet 9 tablet 0 05/05/2019 Active tabletIndications: by mouth 3 Intractable headache, (three) times unspecified chronicity daily. pattern, unspecified headache type DICLOFENAC 75 mg EC TAKE 1 TABLET 60 tablet 0 06/13/201907/13 Active tabletIndications: BY MOUTH 2 Status post total right (TWO) TIMES knee replacement DAILY WITH MEALS FOR 30 DAYS. documented as of this encounter (statuses as of 06/13/2019) Active Problems Problem Noted Date Total knee replacement status 01/07/2019 Primary osteoarthritis of right knee 01/02/2019 Overview: Added automatically from request for michela sky [id number] Hypoxia 04/11/2018 Morbid obesity with body mass index of 40.0-49.9 04/11 Knee pain, left 01/18/2016 Right knee pain 08/04/2015 documented as of this encounter (statuses as of 06/13/2019) Immunizations Name Administration Dates Next Due Pneumococcal Polysaccharide, PPSV23 (PNEUMOVAX) 01/08/2019 documented as of this encounter Social History Tobacco Use Types Packs/Day Years Used Date Never Smoker Cigarettes 2 10 Smokeless Tobacco: Never Used Alcohol Use Drinks/Week oz/Week Comments No 0 Standard drinks or equivalent 0.0 Sex Assigned at Date Recorded Not on file Job Start Date Occupation Industry Not on file Not on file Not on file Travel History Travel Start Travel End No recent travel history available. documented as of this encounter Last Filed Vital Signs Not on filedocumented in this encounter Plan of Treatment Health Maintenance Due Date Last Done Comments HEPATITIS C (HCV) SCREEN 1960 EYE EXAM 12/24/1969 DTaP,Tdap,and Td Vaccines (1 - 12/24/1978 Tdap) PAP SMEAR 12/24/1980 MAMMOGRAM 1999 COLONOSCOPY 12/24/2009 Zoster Recombinant Vaccine 12/24/2009 (SHINGRIX) (1 of 2) INFLUENZA VACCINE (#1) 2019 HgA1C 08/07/2019 02/05/2019, 08/07/2018, 04/11/2018 LDL-C 08/07/2019 08/07/2018, 04/11/2018, 04/06/2016 URINE MICROALBUMIN 08/07/2019 08/07/2018 FOOT EXAM 02/06/2020 02/05/2019, 02/05/2019, 08/07/2018, Additional history exists CREATININE (SERUM) 05/05/2020 05/05/2019, 01/08/2019, 01/04/2019, Additional history exists PNEUMOCOCCAL 0-64 YEARS COMBINED Completed 01/08/2019 SERIES documented as of this encounter Implants Implanted Type Area Journey Lineman Device Shelf Model / Identifier Expiration Serial / Lot Date Bone Cement Palacos R Radiopaque Ayaan #[id number] - [id number] CEMENT Right: Ayaan 08/23/2019 [id number] / Implanted: Qty: 1 on 01/07/2019 by Sedrick Kendall MD at [facility] Knee 8 [id number] / [id number] Bearing Tibial 10 X 63/67 Mm #[id number] - [id number] KNEE Right: Bio met 08/24/2023 [id number] / Implanted: Qty: 1 on 01/07/2019 by Sedrick Kendall MD at [facility] Knee 9 [id number] / [id number] Patella 8 X 31mm Biomet#[id number] - [id number] KNEE Right: Biomet 08/29/2023 [id number] / Implanted: Qty: 1 on 01/07/2019 by Sedrick Kendall MD at [facility] Knee 1 [id number] / [id number] Cr Femoral Right KNEE Right: Biomet 01/21/2028 18 [id number] / Implanted: Qty: 1 on 01/07/2019 by Sedrick Kendall MD at [facility] Knee 1 [id number] / [id number] Adc Plate Tibial Cruciate 67 Mm - [id number] PLATE Right: Biomet 05/03/2028 [id number] / Implanted: Qty: 1 on 01/07/2019 by Sedrick Kendall MD at [facility] Knee J [id number] / [id number] documented as of this encounter Results Not on filedocumented in this encounter Visit Diagnoses Diagnosis Status post total right knee replacement documented in this encounter Insurance Payer Benefit Plan / Subscriber ID Effective Phone Address T ype Group Dates [email or web address] [id number] 2018-Prese Medic are Adv MEDICARE NON MEDICARE NON nt PPO CONTRACTED CONTRACTED [facility] [id number] 2018-Prese Medicare Adv PLUS PLUS nt HMO CLASSIC/VALUE documented as of this encounter
--- OUTSIDE RECORDS SUMMARY | 2020-03-03 19:48 | XMS REPORT | Summary of Care ---
:1960 Author Organization [facility] - Health Address [address] [place] [address] Care Team Providers Name Role Phone Rey Farris Primary Care Provider Encounter Details Date Type Department Care Team Description 11/29/2019 Orders Only [facility] Doctor Unassigned, No [address] [facility] [place] [address] [address] [place] [phone] Allergies Active Allergy Reactions Severity Noted Date [...] as of this encounter (statuses as of 12/02/2019) Medications Medication Sig Dispensed Refills Start Date End Date Status losartan (COZAAR) 50 mg 100 mg daily. 0 07/14/2015 Active tablet HYDROcodone-acetaminophen Take 1 tablet 0 Active (NORCO) 10-325 mg tablet by mouth every 6 (six) hours as needed. verapamil (VERELAN PM) Take 120 mg by 0 Active 120 mg 24 hr capsule mouth. atorvastatin 80 mg tablet Take 80 mg by 0 Active mouth. Levothyroxine 100 mcg Take 100 mcg by 0 Active capsule mouth. BREO ELLIPTA 100-25 0 03/25/2016 Active [...] daily with breakfast. venlafaxine XR 37.5 mg 24 Take 37.5 mg by 0 Active hr capsule mouth daily with breakfast. clonazePAM 0.5 mg Take 0.5 mg by 0 Active tabletIndications: 1/2tab mouth at bedtime. pantoprazole 40 mg EC Take 40 [...] unspecified chronicity daily. pattern, unspecified headache type documented as of this encounter (statuses as of 12/02/2019) Active Problems Problem Noted Date Total knee replacement status 01/07/2019 Primary osteoarthritis of right knee 01/02/2019 Overview: Added automatically from request for michela sky [id number] Hypoxia 04/11/2018 Morbid obesity with body mass index of 40.0-49.9 04/11 Knee pain, left 01/18/2016 Right knee pain 08/04/2015 documented as of this encounter (statuses as of 12/02/2019) Immunizations Name Administration Dates Next Due Pneumococcal [...] filedocumented in this encounter Plan of Treatment Date Type Specialty Care Team Description 12/09/2019 Hospital Encounter Surgery Stevan Calabrese MD [address] [phone] Health Maintenance Due Date Last Done Comments HEPATITIS C (HCV) SCREEN 1960 EYE EXAM 12/24/1969 DTaP,Tdap,and Td Vaccines (1 - 12/24/1970 Tdap) PAP SMEAR 12/24/1980 Breast Cancer Screening 1999 (MAMMOGRAM) COLONOSCOPY 12/24/2009 Zoster Recombinant Vaccine 12/24/2009 (SHINGRIX) (1 of 2) INFLUENZA VACCINE (#1) 2019 HgA1C 08/07/2019 02/05/2019, 08/07/2018, 04/11/2018 LDL-C 08/07/2019 08/07/2018, 04/11/2018, 04/06/2016 URINE MICROALBUMIN 08/07/2019 08/07/2018 FOOT EXAM 02/06/2020 02/05/2019, 02/05/2019, 08/07/2018, Additional history exists CREATININE (SERUM) 05/05/2020 05/05/2019, 01/08/2019, 01/04/2019, Additional history exists PNEUMOCOCCAL 0-64 YEARS COMBINED Completed 01/08/2019 SERIES documented as of this encounter Implants Implanted Type Area Pie Bakery Laborer Device Shelf Model / Identifier Expiration Serial / Lot Date Bone Cement Palacos R Radiopaque Ayaan #[id number] - [id number] CEMENT Right: Ayaan 08/23/2019 [id number] / Implanted: Qty: 1 on 01/07/2019 by Sedrick Kendall MD at [facility] Knee 8 [id number] / [id number] Bearing Tibial 10 X 63/67 Mm #[id number] - [id number] KNEE Right: Bio met 08/24/2023 [id number] / Implanted: Qty: 1 on 01/07/2019 by Sedrick Kendall MD at [facility] Knee 9 [id number] / [id number] Patella 8 X 31mm Biomet#[id number] - [id number] KNEE Right: Biomet 08/29/2023 [id number] / Implanted: Qty: 1 on 01/07/2019 by Sedrick Kendall MD at [facility] Knee 1 [id number] / [id number] Cr Femoral Right KNEE Right: Biomet 01/21/2028 18 3042 / Implanted: Qty: 1 on 01/07/2019 by Sedrick Kendall MD at [facility] Knee 1 [id number] / [id number] Adc Plate Tibial Cruciate 67 Mm - [id number] PLATE Right: Biomet 05/03/2028 [id number] / Implanted: Qty: 1 on 01/07/2019 by Sedrick Kendall MD at [facility] Knee J [id number] / [id number] documented as of this encounter Procedures Procedure Name Priority Date/Time Associated Diagnosis Comme nts REFERRAL- Routine 11/29/2019 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
--- OUTSIDE RECORDS SUMMARY | 2020-03-03 19:48 | XMS REPORT ---
[...] post right knee replacement Z96.651 Active Assessment Mixed hyperlipidemia E78.2 Active Assessment Essential (primary) hypertension I10 Active Problem [...] GERD without esophagitis K21.9 Act nadine Assessment Controlled type 2 diabetes mellitus E11.9 Active without complication, without long-term current use of insulin Problem Chronic depression F32.9 Active Problem Current moderate episode of major F32.1 Active depressive disorder without prior episode Problem Essential (primary) hypertension I10 Active Problem Acquired hypothyroidism E03.9 Acti ve Medications Medication Code Code Instructions Start End Status Dosage System Date Date Metformin HCl [facility] 59026068138 500 MG Active TAKE 1 TABLET BY MOUTH TWICE A DAY WITH A MEAL Pantoprazole [facility] 28489051186 40 MG Active TAKE 1 Sodium TABLET BY MOUTH EVERY DAY HydrOXYzine HCl [facility] 24683063829 25 MG Orally Active 1 tablet every 8 hrs as needed Gabapentin ND 81182968117 300 MG Orally Active 1 c apsule Once a day Accu-Chek [facility] 76132969158 - in vitro Active as FastClix Lancets twice daily dir ected Breo Ellipta [facility] 14389593115 100-25 MCG/INH Active 1 puff Inhalation Once a day Verapamil HCl ER [facility] 21122599359 120 MG Orally Activ e 1 tablet Once a day Levothyroxine [facility] 72702408550 100 MCG Orally Active 1 tablet Sodium Once a day on an empty stomach in the morning Hydrocodone-Acet [facility] [address]-92 7.5-500 MG Active as aminophen Orally directed Levothyroxine [facility] 17742216190 100 MCG Orally Active 1 tablet Sodium Once a day on an empty stomach in the morning ReliOn Prime [facility] 40577093464 - In Vitro Active as Test twice a day directed Metformin HCl [facility] 26478608435 500 MG Orally Active 1 tablet Twice a day with a meal Losartan [facility] 62776694853 100 MG Orally Active 1 tab let Potassium Once a day Venlafaxine HCl [facility] 02685481867 150 MG Orally Active as ER directed Losartan [facility] 37529078791 100 MG Active TAKE 1 Potassium TABLET BY MOUTH EVERY DAY Venlafaxine HCl [facility] 27549249119 75 MG Orally Active 1 tablet Once a day with food Atorvastatin ND 37615298865 20 MG Orally Active 1 tablet Calcium Once a day Atorvastatin [facility] 37426697684 20 MG Orally Active 1 tablet Calcium Once a day Albuterol [facility] 10459505268 (2.5 MG/3ML) Active 3 ml as Sulfate 0.083% needed Inhalation Three times a day Quetiapine ND 33986897145 200 MG Orally Active 1 t ablet Fumarate Once a day OneTouch Verio NDC 0 - Active TEST BLOO D SUGAR ONCE A DAY CPAP Machine NDC 0 max pressure 9 Active nigh tly cm of water Ropinirole HCl ND 37408708988 2 MG Orally Active 1 tablet 1 Once a day to 3 hours before bedtime Clonazepam ND 35815829089 0.5 MG Orally Active 1 t ablet Once a day at bedtime Pantoprazole [facility] 13953267206 40 MG Orally Active 1 tablet Sodium Once a day Results No Known Results Summary Purpose eClinicalWorks Submission
--- OUTSIDE RECORDS SUMMARY | 2020-03-03 19:49 | XMS REPORT ---
:1960 Author Organization eClinicalWorks Care Team Providers Name Role Phone Talya Farrish Provider Role Unavailable Allergies, Adverse Reactions, Alerts Substance Reaction Event Type Toradol Info Not Available Drug Allergy Wellbutrin Info Not Available Drug Allergy Problems Problem Type Condition Code Onset Dates Condition Statu s Assessment Obstructive sleep apnea (adult) G47.33 Active (pediatric) Assessment 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 Assessment Current moderate episode of major F32.1 Active depressive disorder without prior episode Assessment Generalized anxiety disorder F41.1 Active Assessment Morbid (severe) obesity due to E66.01 Active excess calories Assessment Primary osteoarthritis of both M17.0 Active knees Assessment Chronic obstructive pulmonary J44.9 Active disease, unspecified COPD type Assessment Restless leg syndrome G25.81 Active Assessment GERD without esophagitis K21.9 Act nadine Problem Controlled type 2 diabetes mellitus E11.9 Active without complication, without long-term current use of insulin Assessment Insomnia, unspecified type G47.00 A ctive Problem Insomnia, unspecified type G47.00 A ctive Assessment Acquired hypothyroidism E03.9 Acti ve Problem Primary osteoarthritis of both M17.0 Active knees Problem Obstructive sleep apnea (adult) G47.33 Active (pediatric) Problem Restless leg syndrome G25.81 Active Problem Urinary incontinence, unspecified R32 Active type Problem Status post right knee replacement Z96.651 Active Assessment Medicare annual wellness visit, Z00.00 Active subsequent Assessment Mixed hyperlipidemia E78.2 Active Problem Mixed stress and urge 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 Assessment Essential (primary) hypertension I10 Active Problem 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 Problem Generalized anxiety disorder F41.1 Active Problem Chronic obstructive pulmonary J44.9 Active disease, unspecified COPD type Problem Mixed hyperlipidemia E78.2 Active Problem Morbid (severe) obesity due to E66.01 Active excess calories Assessment Urinary incontinence, unspecified R32 Active type Problem GERD without esophagitis K21.9 Act nadine [...] Start End Status Dosage System Date Date Losartan [facility] 63870342287 100 MG Orally Active 1 tab let Potassium Once a day Breo Ellipta [facility] 00312101292 100-25 MCG/INH Active 1 puff Inhalation Once a day Hydrocodone-Acet [facility] [address]-06 7.5-500 MG Active as aminophen Orally directed Ropinirole HCl ND 08192625762 2 MG Orally Active 1 tablet 1 Once a day to 3 hours before bedtime HydrOXYzine HCl ND 14151404520 25 MG Orally Active 1 tablet every 8 hrs as needed Metformin HCl [facility] 12713319352 500 MG Orally Active 1 tablet Twice a day with a meal Clonazepam ND 84972363501 0.5 MG Orally Active 1 t ablet Once a day at bedtime Atorvastatin ND 58532704223 20 MG Orally Active 1 tablet Calcium Once a day Quetiapine ND 07247027948 200 MG Orally Active 1 t ablet Fumarate Once a day CPAP Machine ND 0 max pressure 9 Active nigh tly cm of water Gabapentin ND 49870584964 300 MG Orally Active 1 c apsule Once a day Levothyroxine ND 75729471723 100 MCG Orally Active 1 tablet Sodium Once a day on an empty stomach in the morning ReliOn Prime [facility] 29170596670 - In Vitro Active as Test twice a day directed Accu-Chek [facility] 67799613463 - in vitro Active as FastClix Lancets twice daily dir ected Albuterol [facility] 74371639814 (2.5 MG/3ML) Active 3 ml as Sulfate 0.083% needed Inhalation Three times a day Pantoprazole ND 74267601544 40 MG Orally Active 1 tablet Sodium Once a day Venlafaxine HCl ND 12163852742 150 MG Orally Active as ER directed Verapamil HCl ER ND 26096285440 120 MG Orally Activ e 1 tablet Once a day OneTouch Verio ND 0 - Active TEST BLOO D SUGAR ONCE A DAY Results No Known Results Summary Purpose eClinicalWorks Submission
--- OUTSIDE RECORDS SUMMARY | 2020-03-03 19:49 | XMS REPORT | Summary of Care ---
:[address] [facility] - Health Address [address] [place] [address] Care Team Providers Name Role Phone Rey Farris Primary Care Provider Encounter Details Date Type Department Care Team Description 11/15/[address] [facility] Doctor Unassigned, No [address] [facility] [place] [address] [address] [phone] Allergies Active Allergy Reactions Severity Noted Date [...] as of this encounter (statuses as of 12/04/2019) Medications Medication Sig Dispensed Refills Start Date [...] as of this encounter (statuses as of 12/04/2019) Active Problems Problem Noted Date Total knee replacement status 01/07/2019 Primary osteoarthritis of right knee 01/02/2019 Overview: Added automatically from request for michela sky [id number] Hypoxia 04/11/2018 Morbid obesity with body mass index of 40.0-49.9 04/11 Knee pain, left 01/18/2016 Right knee pain 08/04/2015 documented as of this encounter (statuses as of 12/04/2019) Immunizations Name Administration Dates Next Due Pneumococcal [...] Encounter Surgery Stevan Calabrese MD [address] [address] [phone] Health Maintenance Due Date Last Done [...] of this encounter Implants Implanted Type Area Quantitative Equity Head Device Shelf Model / Identifier Expiration Serial / Lot Date Bone Cement Palacos R Radiopaque Ayaan #[id number] - [id number] CEMENT Right: Ayaan 08/23/2019 [id number] / Implanted: Qty: 1 on 01/07/2019 by Sedrick Kendall MD at [facility] Knee 8 [id number] / [id number] Bearing Tibial 10 X 63/67 Mm #[id number] - [id number] KNEE Right: Bio met 08/24/2023 [id number] / Implanted: Qty: 1 on 01/07/2019 by Sedrick Kendall MD at [facility] Knee 9 [id number] / [id number] Patella 8 X 31mm Biomet#[id number] - [id number] KNEE Right: Biomet 08/29/2023 [id number] / Implanted: Qty: 1 on 01/07/2019 by Sedrick Kendall MD at [facility] Knee 1 [id number] / [id number] Femoral Right KNEE Right: Biomet 01/21/2028 18 [id number] / Implanted: Qty: 1 on 01/07/2019 by Sedrick Kendall MD at [facility] Knee 1 [id number] / [id number] Adc Plate Tibial Cruciate 67 Mm - [id number] PLATE Right: Biomet 05/03/2028 [id number] / Implanted: Qty: 1 on 01/07/2019 by Sedrick Kendall MD at 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
--- OUTSIDE RECORDS SUMMARY | 2020-03-03 19:49 | XMS REPORT | Summary of Care ---
:1960 Author Organization [facility] Address [address] [place] [address] Care Team Providers Name Role Phone Rey Farris Primary Care Provider Reason for Visit Reason Comments New Patient Establish Care/Cardiac Clear ance (Routine) Status Reason Specialty Diagnoses / Referred By Referred To Procedures Contact Contact Closed IM-CARDIOVASCULAR Diagnoses Essential (primary) hypertension Dr. Calabrese requestig cardiac clearance R TKR Need auth from PCP for [facility] Auth: [id number] Reji Farris Qiangjun, DISEASE / Procedures CONSULT/REFERRAL CARDIOLOGY NEW VISIT (FIRST TIME) [address] [facility] Cardiology [address] [address] [place], [place] Phone: [phone] Phone: Encounter Details Date Type Department Care Team Description 01/01/2019 Office Visit [facility] Mauricio Banda M D Chronic pain of right knee (Primary Dx); Cardiology- [address] Essential hypertension; [facility]; [facility], [address] Morbid obesity with body mass index of 4 0.0-49.9; [place], [place] [address] Hyperlipidemia, unspecified hyperlipidem ia type; [address] Type 2 diabetes mellitus without complic ation, without long-term current use of insulin; [phone] SHANNAN (obst ructive sleep apnea) Allergies Active Allergy Reactions Severity Noted Date [...] 12/02/2019) Medications Medication Sig Dispensed Refills Start End Date Status Date losartan (COZAAR) 50 mg 100 mg 0 Active tablet daily. 5 HYDROcodone-acetaminoph Take 1 0 Active en (NORCO) 10-325 mg tablet by tablet mouth every 6 (six) hours as needed. verapamil (VERELAN PM) Take 120 mg 0 Active 120 mg 24 hr capsule by mouth. atorvastatin 80 mg Take 80 mg 0 Active tablet by mouth. Levothyroxine 100 mcg Take 100 mcg 0 Active capsule by mouth. BREO ELLIPTA 100-25 0 Active mcg/dose DsDv 6 QUEtiapine 200 mg Take 200 mg 0 Active tablet by mouth at bedtime. metFORMIN 500 mg tablet Take 500 mg 0 Active by mouth 2 (two) times daily with meals. rOPINIRole 2 mg tablet Take 2 mg by 0 Active mouth at bedtime. venlafaxine XR 150 mg Take 150 mg 0 Active 24 hr capsule by mouth daily with breakfast. venlafaxine XR 37.5 mg Take 37.5 mg 0 Active 24 hr capsule by mouth daily with breakfast. clonazePAM 0.5 mg Take 0.5 mg 0 Active tabletIndications: by mouth at 1/2tab bedtime. hydrOXYzine (ATARAX) 25 Take 25 mg 0 01/01 Discontinued mg tablet by mouth 19 (Therapy every 6 completed) (six) hours. venlafaxine (EFFEXOR) Take 150 mg 0 Discontinued 75 mg tablet by mouth 19 (Dose daily. adjustment ) mirtazapine (REMERON Take 30 mg 0 01/02/20 Discontinued BERTHA-TAB) 30 mg by mouth at 19 (Th erapy disintegrating tablet bedtime. completed) hydrochlorothiazide Take 12.5 mg 0 0 Discontinued (ESIDRIX) 12.5 mg by mouth 19 (D iscontinued capsule daily. by another clinician) SODIUM FLUORIDE by Dental 0 02/06/20 Disc ontinued (PREVIDENT 5000 BOOSTER route. 19 DENTAL) traZODONE 100 mg tablet Take 100 mg 0 04/22 02/09 Discontinued by mouth at 19 bedtime. acetaminophen-codeine Take 1 0 05/05/20 Discontinued 300-30 mg tablet tablet by 19 mouth 2 (two) times daily. aspirin 81 mg chewable Take 81 mg 0 Discontinued tablet by mouth 19 (Patient daily. Preference ) amitriptyline 50 mg 0 01/02/20 Discontinued tablet 8 19 (Discontin ued by another clinician) cycloSPORINE (RESTASIS) Place 1 Drop 0 10/11 Discontinued 0.05 % drops in left eye 19 (Ther apy every 12 completed) (twelve) hours. ALBUTEROL SULFATE Inhale. 0 01/02/20 Di scontinued INHALE 19 (Therapy completed) amoxicillin-clavulanate Take 1 28 tablet 0 Discontinued 875-125 mg per tablet tablet by 9 19 (Therapy mouth every complete d) 12 (twelve) hours. bacitracin 500 Apply to 14 g 0 01/02/20 Disco ntinued unit/gram affected 07 11 (Therapy ointmentIndications: area(s) 3 completed) Infected dog bite of (three) forearm, left, times daily. subsequent encounter documented as of this encounter (statuses as of 12/02/2019) Active Problems Problem Noted Date Total knee replacement status 01/07/2019 Primary osteoarthritis of right knee 01/02/2019 Overview: Added automatically from request for michela jose daniel [id number] Hypoxia 04/11/2018 Morbid obesity with body mass index of 40.0-49.9 04/11 Knee pain, left 01/18/2016 Right knee pain 08/04/2015 documented as of this encounter (statuses as of 12/02/2019) Social History Tobacco Use Types Packs/Day Years Used Date Former Smoker Cigarettes 2 10 Smokeless Tobacco: Never Used Alcohol Use Drinks/Week oz/Week Comments No 0 Standard drinks or equivalent 0.0 Sex Assigned at Date Recorded Not on file Job Start Date Occupation Industry Not on file Not on file Not on file Travel History Travel Start Travel End No recent travel history available. documented as of this encounter Last Filed Vital Signs Vital Sign Reading Time Taken Comments Blood Pressure 129/80 01/01/2019 10:28 AM CDT Pulse 68 01/01/2019 10:28 AM CDT Temperature - - Respiratory Rate 20 01/01/2019 10:28 AM CDT Oxygen Saturation 97% 01/01/2019 10:28 AM CDT Inhaled Oxygen Concentration - - Weight 110.4 kg (243 lb 4.8 oz) 01/01/2019 10:28 AM CDT Height 157.5 cm (5' 2") 01/01/2019 10:28 AM CDT Body Mass Index 44.5 01/01/2019 10:28 AM CDT documented in this encounter Progress Notes Mauricio Banda MD - 01/01/2019 10:00 AM CDT CARDIOLOGY CLINIC NOTE 01/01/2019 Reason for Referral/Presenting Complaint: preop for knee surgery PCP: Reji Farris History of Present Illness: Eliza Collazo is a 58 years old female with history of HTN, HLD, DM, morbid obesity, SHANNAN, COPD,etc. She is scheduled to have right knee surgery next week. Here for preop. Limited walking capacitydue to knee pain. No chest pain. Chronic mild dyspnea on exertion. No edema or orthopnea. BP is wellcontrolled. Had ECHO in 2018 showing normal LVEF. No major valve issues. Then had a nuclear stress te st from Dr. Matthews--self reported normal. Review of Systems: General: (-) fever, (-) chills, (-) weight change, (-) dizziness, (+) fatigue Skin: (-) rash HEENT: (-) headache, (-) change in vision Neck: (-) difficulty swallowing Heme: negative Resp: (-) cough, (+) dyspnea on exertion Cardio: (-) chest pain, (-) palpitations, (-) syncope GI: (-) vomiting, (-) diarrhea : negative Endo: (+) diabetes, (-) thyroid disease Neuro: (-) numbness, (-) tingling, (-) weakness Back: (-) pain DARCI: (-) muscle pain, (-) claudication Psych: (-) anxiety, (-) depression Past Medical History: Past Medical History: Diagnosis Date Anxiety Chlamydia Chronic pain COPD (chronic obstructive pulmonary disease) Depression Diabetes mellitus type 2, noninsulin dependent Gout unclear Hyperlipidemia Hypertension Knee pain, left 01/18/2016 Pain Sleep apnea Spinal stenosis Thyroid disease Current Medications: Current Outpatient Prescriptions Medication Sig Dispense Refill clonazePAM 0.5 mg tablet Take 0.5 mg by mouth at bedtime. venlafaxine XR 150 mg 24 hr capsule Take 150 mg by mouth daily with breakfast. venlafaxine XR 37.5 mg 24 hr capsule Take 37.5 mg by mouth daily with breakfast. acetaminophen-codeine 300-30 mg tablet Take 1 tablet by mouth 2 (two) times daily. metFORMIN 500 mg tablet Take 500 mg by mouth 2 (two) times daily with meals. rOPINIRole 2 mg tablet Take 2 mg by mouth at bedtime. traZODONE 100 mg tablet Take 100 mg by mouth at bedtime. QUEtiapine 200 mg tablet Take 200 mg by mouth at bedtime. SODIUM FLUORIDE (PREVIDENT 5000 BOOSTER DENTAL) by Dental route. atorvastatin 80 mg tablet Take 80 mg by mouth. BREO ELLIPTA 100-25 mcg/dose DsDv Levothyroxine 100 mcg capsule Take 100 mcg by mouth. verapamil (VERELAN PM) 120 mg 24 hr capsule Take 120 mg by mouth. HYDROcodone-acetaminophen (NORCO) 10-325 mg tablet Take 1 tablet by mouth every 6 (six) hours asneeded. losartan (COZAAR) 50 mg tablet 100 mg daily. No current facility-administered medications for this visit. Social History: Social History Social History Marital status: Spouse name: N/A Number of children: N/A Years of education: N/A Occupational History Retired Social History Main Topics Smoking status: Former Smoker Packs/day: 2.00 Years: 10.00 Types: Cigarettes Smokeless tobacco: Never Used Alcohol use No Drug use: No Sexual activity: No Other Topics Concern Not on file Social History Narrative No unusual occupations, pets, hobbies, travel Family History Family History Problem Relation Age of Onset Cancer Mother Breast, Colon Cancer Maternal Aunt Breast Physical Examination: BP 129/80 (BP Location: Left arm, Patient Position: Sitting, BP CUFF SIZE: Adult Large) | Pulse 68| Resp 20 | Ht 5' 2" (1.575 m) | Wt 243 lb 4.8 oz (110.4 kg) | SpO2 97% | BMI 44.50 kg/m Constitutional: alert and oriented x 3 (person, place and date/time); no apparent distress ENT: normocephalic atraumatic, supple, no lymphadenopathy, no bruits, no JVD Lungs: clear to auscultation bilaterally Cardiovascular: S1, S2 normal, regular; no murmurs, rubs or gallops GI: soft; non-tender; non-distended; normoactive bowel sounds : not examined Musculoskeletal: Extremities: no clubbing, cyanosis, or edema Skin: no rashes Neuro: no focal deficits Cardiovascular testing: EKG: Normal sinus rhythm. Non-specific ST-T abnormality Echocardiogram: Left ventricular systolic function is normal. Ejection Fraction = 55-60%. There is mild mitral regurgitation. The aortic root is normal size. There is no pericardial effusion. Stress Test: 2018--Nuclear stress test 04/2018 Nuclear stress test--Negative Assessment/Plan: ICD-10-CM ICD-9-CM 1. Chronic pain of right knee M25.561 719.46 G89.29 338.29 2. Essential hypertension I10 401.9 3. Preop cardiovascular exam Z01.810 V72.81 4. Morbid obesity with body mass index of 40.0-49.9 E66.01 278.01 5. Hyperlipidemia, unspecified hyperlipidemia type E78.5 272.4 6. Type 2 diabetes mellitus without complication, without long-term current use of insulin E11.9 250.00 7. SHANNAN (obstructive sleep apnea) G47.33 327.23 Poor functional capacity mainly due to knee arthritis. No new or worsening cardiac symptoms. ECHO was normal. Reported a negative nuclear stress test in 2018. Low to intermediate cardiac risk. No further testing needed. Thank you for allowing us to participate in the care of your patient. Please feel free to contact usfor any questions or if we can be of further assistance. Addendum--12/02/2019--Low to intermediate cardiac risk. Mauricio Banda MD, FACGONZALEZ [place] [facility] [address] Liaison, Division of Cardiology [facility] documented in this encounter Plan of Treatment Date Type Specialty Care Team Description 12/09/2019 Hospital Encounter Surgery Stevan Calabrese MD [address] [place] [address] [phone] Name Type Priority Associated Diagnoses Order S chedule EKG-12 LEAD ROUTINE HEART STATION Routine Essential hypertensi on Ordered: 01/01/2019 Health Maintenance Due Date Last Done Comments [...] of this encounter Implants Implanted Type Area Executive Vice President And Chief Operating Officer Device Shelf Model / Identifier Expiration Serial / Lot Date Bone Cement Palacos R Radiopaque Ayaan #[id number] - [id number] CEMENT Right: Ayaan 08/23/2019 [id number] / Implanted: Qty: 1 on 01/07/2019 by Sedrick Kendall MD at [facility] Knee 8 [id number] / [id number] Bearing Tibial 10 X 63/67 Mm #[id number] - [id number] KNEE Right: Bio met 08/24/2023 [id number] / Implanted: Qty: 1 on 01/07/2019 by Sedrick Kendall MD at [facility] Knee 9 [id number] / [id number] Patella 8 X 31mm Biomet#[id number] - [id number] KNEE Right: Biomet 08/29/2023 [id number] / Implanted: Qty: 1 on 01/07/2019 by Sedrick Kendall MD at [facility] Knee 1 [id number] / [id number] Cr Femoral Right KNEE Right: Biomet 01/21/2028 18 3042 / Implanted: Qty: 1 on 01/07/2019 by Sedrick Kendall MD at [facility] Knee 1 [id number] / [id number] Adc Plate Tibial Cruciate 67 Mm - [id number] PLATE Right: Biomet 05/03/2028 [id number] / Implanted: Qty: 1 on 01/07/2019 by Sedrick Kendall MD at [facility] Knee J [id number] / [id number] documented as of this encounter Procedures Procedure Name Priority Date/Time Associated Diagnosis Comme nts EKG-12 LEAD Routine 01/01/2019 10:46 AM CDT documented in this encounter Results Not on filedocumented in this encounter Visit Diagnoses Diagnosis Chronic pain of right knee - Primary Essential hypertension Unspecified essential hypertension Preop cardiovascular exam Pre-operative cardiovascular examination Morbid obesity with body mass index of 4 0.0-49.9 Hyperlipidemia, unspecified hyperlipidem ia type Type 2 diabetes mellitus without complic ation, without long-term current use of insulin SHANNAN (obstructive sleep apnea) Obstructive sleep apnea (adult) (pediatr ic) documented in this encounter Insurance Payer Benefit Plan / Subscriber ID Effective Phone Address T ype Group Dates [facility] [id number] 2018-Prese Medic are Adv MEDICARE NON MEDICARE NON nt PPO CONTRACTED CONTRACTED documented as of this encounter
--- OUTSIDE RECORDS SUMMARY | 2020-03-03 19:50 | XMS REPORT | Summary of Care ---
:1960 Author Organization [facility] Address [address] [place] [address] Care Team Providers Name Role Phone Rey Farris Primary Care Provider Encounter Details Date Type Department Care Team Description 12/05/2019 Prep For Surgery [facility], Primary ost eoarthritis Orthopaedic Surgery- Sedrick Moon MD of left knee (Primary [place] [address]) [address] [facility] [address] [place] [id number] [phone] Allergies Active Allergy Reactions Severity Noted Date [...] as of this encounter (statuses as of 12/05/2019) Medications Medication Sig Dispensed Refills Start Date [...] unspecified chronicity daily. pattern, unspecified headache type Hospital, Clinic, or Other Ordered Dose Route Frequency Start Date End Date Status Facility Administered Medication ceFAZolin in dextrose 2 g IVPB ONCE NOW 12/09/2019 020 Active (iso-os) (ANCEF) 2 gram/100 mL Piggyback 2 g celecoxib (CELEBREX) 400 mg Oral ONCE 12/09/2019 12/09/19 20 Active capsule 400 mg gabapentin (NEURONTIN) 300 mg Oral ONCE 12/09/20192019 Active capsule 300 mg oxyCODONE-acetaminophen 2 tablet Oral ONCE 12/09/201912/09 Active (PERCOCET) 5-325 mg per tablet 2 tablet tranexamic acid 1000 mg IVPB ONCE 12/09/2019 12/09/2019 Ac tive (CYKLOKAPRON) 1,000 mg in NaCl 0.9% (NS) 250 mL piggyback documented as of this encounter (statuses as of 12/05/2019) Active Problems Problem Noted Date Total knee replacement status 01/07/2019 Primary osteoarthritis of right knee 01/02/2019 Overview: Added automatically from request for michela sky [id number] Hypoxia 04/11/2018 Morbid obesity with body mass index of 40.0-49.9 04/11 Knee pain, left 01/18/2016 Right knee pain 08/04/2015 documented as of this encounter (statuses as of 12/05/2019) Immunizations Name Administration Dates Next Due Pneumococcal [...] 12/09/2019 Hospital [place] [address] [place] [address] [phone] Name Type Priority Associated Diagnoses Order S chedule Type and Screen - LAB Routine Primary osteoarthritis of 1 Occurrences starting left knee 12/05/2019 unti l 02/03/2020 URINALYSIS LAB Routine Primary osteoarthritis of 1 Occurrences starting left knee 12/05/2019 unti l 02/03/2020 Health Maintenance Due Date Last Done Comments [...] of this encounter Implants Implanted Type Area Tile Burner Device Shelf Model / Identifier Expiration Serial / Lot Date Bone Cement Palacos R Radiopaque Ayaan #[id number] - [id number] CEMENT Right: Ayaan 08/23/2019 [id number] / Implanted: Qty: 1 on 01/07/2019 by Sedrick Kendall MD at [facility] Knee 8 [id number] / [id number] Bearing Tibial 10 X 63/67 Mm #[id number] - [id number] KNEE Right: Bio met 08/24/2023 [id number] / Implanted: Qty: 1 on 01/07/2019 by Sedrick Kendall MD at [facility] Knee 9 [id number] / [id number] Patella 8 X 31mm Biomet#[id number] - [id number] KNEE Right: Biomet 08/29/2023 [id number] / Implanted: Qty: 1 on 01/07/2019 by Sedrick Kendall MD at [facility] Knee 1 [id number] / [id number] Cr Femoral Right KNEE Right: Biomet 01/21/2028 18 3042 / Implanted: Qty: 1 on 01/07/2019 by Sedrick Kendall MD at [facility] Knee 1 [id number] / [id number] Adc Plate Tibial Cruciate 67 Mm - [id number] PLATE Right: Biomet 05/03/2028 [id number] / Implanted: Qty: 1 on 01/07/2019 by Sedrick Kendall MD at [facility] Knee J [id number] / [id number] documented as of this encounter Results Not on filedocumented in this encounter Visit Diagnoses Diagnosis Primary osteoarthritis of left knee - Pr imary Primary localized osteoarthrosis, lower leg documented in this encounter Insurance Payer Benefit Plan / Subscriber ID Effective Phone Address T ype Group Dates [facility] [id number] 2018-Prese Medic are Adv MEDICARE NON MEDICARE NON nt PPO CONTRACTED [facility]ED [facility] [id number] 2018-Prese Medicare Adv PLUS PLUS nt HMO CLASSIC/VALUE documented as of this encounter
--- OUTSIDE RECORDS SUMMARY | 2020-03-03 19:50 | XMS REPORT | Summary of Care ---
:1960 Author Organization [facility] Address [address] [place] [address] Care Team Providers Name Role Phone Rey Farris Primary Care Provider Reason for Visit Reason Comments Notification [facility] from Dr. Banda. She should be having surgery on Monday and hasn't heard from anyone yet Encounter Details Date Type Department Care Team Description 12/05/2019 Telephone [facility] Orthopaedic Sedrick Calabrese otification (The Surgery- Arthur Moon MD patient is calling to [address], [address] check if we received her [address] [place] [address] [address] [place], [place] Dr. Banda. She should be [phone] having surgery on Monday [phone] and hasn't heard from [phone] anyone yet) (Fax) Allergies Active Allergy Reactions Severity Noted Date [...] Added automatically from request for michela sky [id number] Hypoxia 04/11/2018 Morbid obesity with body mass [...] 12/09/2019 Hospital Encounter Surgery Stevan Calabrese MD [facility] [address] [address] [phone] Health Maintenance Due Date Last Done [...] of this encounter Implants Implanted Type Area Graphic Design Manager Device Shelf Model / Identifier Expiration Serial / Lot Date Bone Cement Palacos R Radiopaque Ayaan #[id number] - [id number] CEMENT Right: Ayaan 08/23/2019 [id number] / Implanted: Qty: 1 on 01/07/2019 by Sedrick Kendall MD at [facility] Knee 8 [id number] / [id number] Bearing Tibial 10 X 63/67 Mm #[id number] - [id number] KNEE Right: Bio met 08/24/2023 [id number] / Implanted: Qty: 1 on 01/07/2019 by Sedrick Kendall MD at [facility] Knee 9 [id number] / [id number] Patella 8 X 31mm Biomet#[id number] - [id number] KNEE Right: Biomet 08/29/2023 [id number] / Implanted: Qty: 1 on 01/07/2019 by Sedrick Kendall MD at [facility] Knee 1 [id number] / [id number] Cr Femoral Right KNEE Right: Biomet 01/21/2028 18 3042 / Implanted: Qty: 1 on 01/07/2019 by Sedrick Kendall MD at [facility] Knee 1 [id number] / [id number] Adc Plate Tibial Cruciate 67 Mm - [id number] PLATE Right: Biomet 05/03/2028 [id number] / Implanted: Qty: 1 on 01/07/2019 by Sedrick Kendall MD at [facility] Knee J [id number] / [id number] documented as of this encounter Results Not on filedocumented in this encounter Insurance Payer Benefit Plan / Subscriber ID Effective Phone Address T ype Group Dates [facility] [id number] 2018-Prese Medic are Adv MEDICARE NON MEDICARE NON nt PPO CONTRACTED CONTRACTED [facility] [id number] 2018-Prese Medicare Adv PLUS PLUS nt HMO CLASSIC/VALUE documented as of this encounter
--- OUTSIDE RECORDS SUMMARY | 2020-03-03 19:51 | XMS REPORT | Summary of Care ---
:1960 Author Organization [facility] Address [address] [place] [address] Care Team Providers Name Role Phone Rey Farris Primary Care Provider Reason for Referral Radiology Services (Routine) Status Reason Specialty Diagnoses / Referred By Referred To Procedures Contact Contact New Request Diagnostic Diagnoses Primary osteoarthritis of left knee Reuben Bansal Radiology Procedures XR KNEE <3 VW LEFT S, PAC [address] [place] [address] [place] [address] Reason for Visit Reason Comments Follow-up LT knee OA (Routine) Status Reason Specialty Diagnoses / Referred By Referred To Procedures Contact Contact Authorized Orthopedic Surgery Diagnoses Presence of right artificial knee joint Reji Farris Craig Procedures CONSULT/REFERRAL ORTHOPAEDIC SURGERY 208 [facility] MD Sarai [facility] [address] [place] [phone] Phone: Fax: Encounter Details Date Type Department Care Team Description 11/14/2019 Office Visit [facility] Reuben Bansal S, Primary oste oarthritis Orthopaedic Surgery- PAC of left knee (Primary [place] [address]) [address] [facility] [place] [address] [place] [phone] Allergies Active Allergy Reactions Severity Noted Date [...] as of this encounter (statuses as of 11/14/2019) Medications Medication Sig Dispensed Refills Start Date [...] as of this encounter (statuses as of 11/14/2019) Active Problems Problem Noted Date Total knee replacement status 01/07/2019 Primary osteoarthritis of right knee 01/02/2019 Overview: Added automatically from request for michela sky [id number] [facility] 04/11/2018 Morbid obesity with body mass index of 40.0-49.9 04/11 Knee pain, left 01/18/2016 Right knee pain 08/04/2015 documented as of this encounter (statuses as of 11/14/2019) Immunizations Name Administration Dates Next Due Pneumococcal [...] Sign Reading Time Taken Comments Blood Pressure 124/72 11/14/2019 2:56 PM FURNACE FEEDER Pulse 77 11/14/2019 2:56 PM FURNACE FEEDER Temperature - - Respiratory Rate - - Oxygen Saturation - - Inhaled Oxygen Concentration - - Weight 109.3 kg (241 lb) 11/14/2019 2:56 PM FURNACE FEEDER Height 157.5 cm (5' 2") 11/14/2019 2:56 PM FURNACE FEEDER Body Mass Index 44.08 11/14/2019 2:56 PM FURNACE FEEDER documented in this encounter Progress Notes Reuben Bansal S, PAC - 11/14/2019 2:45 PM CST Cc: Chief Complaint Patient presents with Follow-up LT knee OA Discuss Lt knee surgery options. Has had Rt tkr done already, now is ready for left knee. Came in wbat with cane for assistance. Eh Roth 11/14/2019 2:58 PM Eliza Collazo is a 58 year old female. Here for osteoarthritis of the left knee would like to discuss surgical options, she has had pain inher left knee for 6 years she has to walk with a cane to help with the pain. She is on pain management with and takes hydrocodone for pain control. Her use of narcotic pain control is intermittent and sometimes she can go 3 weeks without hydrocodone. This limits her activities of daily living such as going grocery shopping She underwent a right total knee replacement and that knee is doing excellent she would like to havea left total knee replacement. Allergies Eliza is allergic to latex, natural rubber; bupropion hcl; codeine; toradol [ketorolac tromethamine]; wellbutrin [bupropion]; and zolpidem. Medications Outpatient Medications Prior to Visit Medication Sig Dispense Refill amitriptyline 75 mg tablet Take 75 mg by mouth at bedtime. cyclobenzaprine 5 mg tablet Take 1 tablet by mouth 3 (three) times daily. 15 tablet 0 cyclobenzaprine 5 mg tablet Take 1 tablet by mouth 3 (three) times daily. 9 tablet 0 pantoprazole 40 mg EC tablet Take 40 mg by mouth daily. clonazePAM 0.5 mg tablet Take 0.5 mg by mouth at bedtime. venlafaxine XR 150 mg 24 hr capsule Take 150 mg by mouth daily with breakfast. venlafaxine XR 37.5 mg 24 hr capsule Take 37.5 mg by mouth daily with breakfast. metFORMIN 500 mg tablet Take 500 mg by mouth 2 (two) times daily with meals. rOPINIRole 2 mg tablet Take 2 mg by mouth at bedtime. QUEtiapine 200 mg tablet Take 200 mg by mouth at bedtime. atorvastatin 80 mg tablet Take 80 mg by mouth. BREO ELLIPTA 100-25 mcg/dose DsDv Levothyroxine 100 mcg capsule Take 100 mcg by mouth. verapamil (VERELAN PM) 120 mg 24 hr capsule Take 120 mg by mouth. HYDROcodone-acetaminophen (NORCO) 10-325 mg tablet Take 1 tablet by mouth every 6 (six) hours asneeded. losartan (COZAAR) 50 mg tablet 100 mg daily. No facility-administered medications prior to visit. Histories Past Medical History: Diagnosis Date Anxiety Chlamydia Chronic pain COPD (chronic obstructive pulmonary disease) Depression Diabetes mellitus type 2, noninsulin dependent Gout unclear Hyperlipidemia Hypertension Knee pain, left 01/18/2016 Pain Sleep apnea Spinal stenosis Thyroid disease Past Surgical History: Procedure Laterality Date ADENOIDECTOMY SECTION HYSTERECTOMY JOINT SURGERY Rt knee APA - no TKA, just scope TONSILLECTOMY TOTAL KNEE ARTHROPLASTY Right 01/07/2019 Surgeon: Sedrick Calabrese MD; Location: [facility] Social History Socioeconomic History Marital status: Spouse name: Not on file Number of children: Not on file Years of education: Not on file Highest education level: Not on file Occupational History Occupation: Retired Social Needs Financial resource strain: Not on file Food insecurity: Worry: Not on file Inability: Not on file Transportation needs: Medical: Not on file Non-medical: Not on file Tobacco Use Smoking status: Never Smoker Smokeless tobacco: Never Used Substance and Sexual Activity Alcohol use: No Alcohol/week: 0.0 standard drinks Drug use: No Sexual activity: Never Lifestyle Physical activity: Days per week: Not on file Minutes per session: Not on file Stress: Not on file Relationships Social connections: Talks on phone: Not on file Gets together: Not on file Attends worship service: Not on file Active member of club or organization: Not on file Attends meetings of clubs or organizations: Not on file Relationship status: Not on file Intimate partner violence: Fear of current or ex partner: Not on file Emotionally abused: Not on file Physically abused: Not on file Forced sexual activity: Not on file Other Topics Concern Not on file Social History Narrative No unusual occupations, pets, hobbies, travel Family History Problem Relation Age of Onset Cancer Mother Breast, Colon Cancer Maternal Aunt Breast Review of Systems Constitutional: Negative. HENT: Negative. Eyes: Negative. Respiratory: Negative. Breasts: Negative. Cardiovascular: Negative. Gastrointestinal: Negative. Genitourinary: Negative. Musculoskeletal: Positive for joint swelling. Skin: Negative. Neurological: Negative. Psychiatric/Behavioral: Negative. Endocrine: Endocrine negative Vital Signs BP 124/72 | Pulse 77 | Ht 62" (157.5 cm) | Wt 109.3 kg (241 lb) | BMI 44.08 kg/m Physical Exam Musculoskeletal: Physical Exam Constitutional: oriented to person, place, and time. appears well-developed and well-nourished. HENT: Head: Normocephalic and atraumatic. Right Ear: External ear normal. Left Ear: External ear normal. Eyes: Conjunctivae are normal. Neck: Normal range of motion. No strabismus Neck supple. Cardiovascular: Normal rate and regular rhythm. Pulmonary/Chest: Normal respiratory rate equal chest rise and fall in no apparent distress Abdominal: Abdomen nondistended nontender Neurological: alert and oriented to person, place, and time. No asymmetry Skin: Skin is warm and dry. Psychiatric: normal mood and affect. behavior is normal. Judgment and thought content normal. Nursing note and vitals reviewed. Left knee pain in the medial compartment as well as in the patellofemoral compartment, she has crepitus with a palpable clunking with attempting to extend her knee she has a stable ligamentous exam. Assessment/Plan Diagnosis: 1. Primary osteoarthritis of left knee We will schedule her for a left total knee replacement at [facility] for December 09, 2019 I have discussed the patient's physical exam and reviewed their x- rays/imaging/results with them in detail. Discussed surgery at great lengths regarding risks and benefits. Explained as with any procedure there may be pain, damage to nerve and vascular structures, fat embolism, need for additional surgery, failure of procedure to relieve pain. We spoke of recovery time, expected outcome, possible restrictions and anticipation return to work date as well as possible rehabilitation if needed or required after the surgery. All questions have been answered. Condition and plans were discussed with patient, who expressed understanding and is agreeable to theplan. She will talk to her pain management doctor about postop pain medicine. ACE FEEDER documented in this encounter Plan of Treatment Name Type Priority Associated Diagnoses Date/Ti me XR KNEE <3 VW LEFT IMAGING Routine Primary osteoarthritis of 11/14/2019 3:28 PM left knee FURNACE FEEDER Name Type Priority Associated Diagnoses Order S chedule XR KNEE <3 VW LEFT IMAGING Routine Primary osteoarthritis of Expected: 11/14/2019, left knee Expires: 2020 Health Maintenance Due Date Last Done Comments [...] of this encounter Implants Implanted Type Area Device Repair Technician Device Shelf Model / Identifier Expiration Serial / Lot Date Bone Cement Palacos R Radiopaque Ayaan #[id number] - [id number] CEMENT Right: Ayaan 08/23/2019 [id number] / Implanted: Qty: 1 on 01/07/2019 by Sedrick Kendall MD at [facility] Knee 8 [id number] / [id number] Bearing Tibial 10 X 63/67 Mm #[id number] - [id number] KNEE Right: Bio met 08/24/2023 [id number] / Implanted: Qty: 1 on 01/07/2019 by Sedrick Kendall MD at [facility] Knee 9 [id number] / [id number] Patella 8 X 31mm Biomet#[id number] - [id number] KNEE Right: Biomet 08/29/2023 [id number] / Implanted: Qty: 1 on 01/07/2019 by Sedrick Kendall MD at [facility] Knee 1 [id number] / [id number] Cr Femoral Right KNEE Right: Biomet 01/21/2028 18 3042 / Implanted: Qty: 1 on 01/07/2019 by Sedrick Kendall MD at [facility] Knee 1 [id number] / [id number] Adc Plate Tibial Cruciate 67 Mm - [id number] PLATE Right: Biomet 05/03/2028 [id number] / Implanted: Qty: 1 on 01/07/2019 by Sedrick Kendall MD at [facility] Knee J [id number] / [id number] documented as of this encounter Results Not on filedocumented in this encounter Visit Diagnoses Diagnosis Primary osteoarthritis of left knee - Pr imary Primary localized osteoarthrosis, lower leg documented in this encounter Insurance Payer Benefit Plan / Subscriber ID Effective Dates Phone Addre ss Type Group CAIO CONWAY [id number] 2018-Presen Medicare Adv PLUS PLUS t HMO CLASSIC/VALUE documented as of this encounter
--- OUTSIDE RECORDS SUMMARY | 2020-03-03 19:51 | XMS REPORT | Summary of Care ---
:1960 Author Organization [facility] Address [address] [place] [address] Care Team Providers Name Role Phone Rey Farris Primary Care Provider Encounter Details Date Type Department Care Team Description 11/14/2019 Hospital Encounter [facility] Reuben Bansal S [facility] Orthopedics - PAC Radiology [address] [place] [address] [place] [address] [place], [place] [phone] Allergies Active Allergy Reactions Severity Noted Date [...] as of this encounter (statuses as of 11/15/2019) Medications Medication Sig Dispensed Refills Start Date [...] as of this encounter (statuses as of 11/15/2019) Active Problems Problem Noted Date Total knee replacement status 01/07/2019 Primary osteoarthritis of right knee 01/02/2019 Overview: Added automatically from request for michela jose daniel [id number] [facility] 04/11/2018 Morbid obesity with body mass index of 40.0-49.9 04/11 Knee pain, left 01/18/2016 Right knee pain 08/04/2015 documented as of this encounter (statuses as of 11/15/2019) Immunizations Name Administration Dates Next Due Pneumococcal [...] of this encounter Implants Implanted Type Area Materials Technician Device Shelf Model / Identifier Expiration Serial / Lot Date Bone Cement Palacos R Radiopaque Ayaan #[id number] - [id number] CEMENT Right: Ayaan 08/23/2019 [id number] / Implanted: Qty: 1 on 01/07/2019 by Sedrick Kendall MD at [facility] Knee 8 [id number] / [id number] Bearing Tibial 10 X 63/67 Mm #[id number] - [id number] KNEE Right: Bio met 08/24/2023 [id number] / Implanted: Qty: 1 on 01/07/2019 by Sedrick Kendall MD at [facility] Knee 9 [id number] / [id number] Patella 8 X 31mm Biomet#[id number] - [id number] KNEE Right: Biomet 08/29/2023 [id number] / Implanted: Qty: 1 on 01/07/2019 by Sedrick Kendall MD at [facility] Knee 1 [id number] / [id number] Cr Femoral Right KNEE Right: Biomet 01/21/2028 18 3042 / Implanted: Qty: 1 on 01/07/2019 by Sedrick Kendall MD at [facility] Knee 1 [id number] / [id number] Adc Plate Tibial Cruciate 67 Mm - [id number] PLATE Right: Biomet 05/03/2028 [id number] / Implanted: Qty: 1 on 01/07/2019 by Sedrick Kendall MD at [facility] Knee J [id number] / [id number] documented as of this encounter Procedures Procedure Name Priority Date/Time Associated Diagnosis Comme nts XR KNEE <3 VW LEFT Routine 11/14/2019 3:28 PM Primary osteoar thritis of JUNIOR BUSINESS ANALYST left knee documented in this encounter Results XR KNEE <3 VW LEFT (11/14/2019 3:28 PM JUNIOR BUSINESS ANALYST) Specimen Narrative Performed At This result has an attachment that is no t available. Performing Organization Address City/State/Zipcode Phone Number PACS documented in this encounter Visit Diagnoses Diagnosis Primary osteoarthritis of left knee Primary localized osteoarthrosis, lower leg documented in this encounter Insurance Payer Benefit Plan / Subscriber ID Effective Dates Phone Addre ss Type Group WELLCARE [place] WELLCARE [place] [id number] 2018-Presen Medicare Adv PLUS PLUS t HMO CLASSIC/VALUE ([place]) [place] [address] documented as of this encounter
--- OUTSIDE RECORDS SUMMARY | 2020-03-03 19:51 | XMS REPORT | Summary of Care ---
:1960 Author Organization [facility] Address [address] [place] [address] Care Team Providers Name Role Phone Rey Farris Primary Care Provider Reason for Referral Radiology Services (Routine) Status Reason Specialty Diagnoses / Referred By Referred To Procedures Contact Contact New Request Diagnostic Diagnoses Primary osteoarthritis of left knee Reuben Bansal Radiology Procedures XR KNEE <3 VW LEFT S, PAC [address] [place] [address] [place] [address] Reason for Visit Reason Comments Follow-up LT knee OA (Routine) Status Reason Specialty Diagnoses / Referred By Referred To Procedures Contact Contact Authorized Orthopedic Surgery Diagnoses Presence of right artificial knee joint Reji Farris Craig Procedures CONSULT/REFERRAL ORTHOPAEDIC SURGERY 208 [facility] MD Sarai [facility] [address] [place] [phone] Phone: Fax: Encounter Details Date Type Department Care Team Description 11/14/2019 Office Visit [facility] Reuben Bansal S, Primary oste oarthritis Orthopaedic Surgery- PAC of left knee (Primary [place] [address]) [address] [facility] [place] [address] [place] [phone] Allergies Active Allergy Reactions [...] Added automatically from request for michela sky [id number] [facility] 04/11/2018 Morbid obesity with body mass [...] Comments Blood Pressure 124/72 11/14/2019 2:56 PM CABIN MAN Pulse 77 11/14/2019 2:56 PM CABIN MAN Temperature - - Respiratory Rate - - Oxygen Saturation - - Inhaled Oxygen Concentration - - Weight 109.3 kg (241 lb) 11/14/2019 2:56 PM CABIN MAN Height 157.5 cm (5' 2") 11/14/2019 2:56 PM CABIN MAN Body Mass Index 44.08 11/14/2019 2:56 PM CABIN MAN documented in this encounter Progress Notes Reuben [...] Right 01/07/2019 Surgeon: Sedrick Calabrese MD; Location[place] [facility] Social History Socioeconomic History Marital status: Spouse [...] file Gets together: Not on file Attends judaism service: Not on file Active member of [...] for a left total knee replacement at [facility] for December 09, 2019 I have discussed [...] pain management doctor about postop pain medicine. N MAN documented in this encounter Plan of Treatment Name Type Priority Associated Diagnoses Date/Ti me XR KNEE <3 VW LEFT IMAGING Routine Primary osteoarthritis of 11/14/2019 3:28 PM left knee CABIN MAN Name Type Priority Associated Diagnoses Order S [...] of this encounter Implants Implanted Type Area Senior Manager Asset Protection Device Shelf Model / Identifier Expiration Serial / Lot Date Bone Cement Palacos R Radiopaque Ayaan #[id number] - [id number] CEMENT Right: Ayaan 08/23/2019 [id number] / Implanted: Qty: 1 on 01/07/2019 by Sedrick Kendall MD at [facility] Knee 8 [id number] / [id number] Bearing Tibial 10 X 63/67 Mm #[id number] - [id number] KNEE Right: Bio met 08/24/2023 [id number] / Implanted: Qty: 1 on 01/07/2019 by Sedrick Kendall MD at [facility] Knee 9 [id number] / [id number] Patella 8 X 31mm Biomet#[id number] - [id number] KNEE Right: Biomet 08/29/2023 [id number] / Implanted: Qty: 1 on 01/07/2019 by Sedrick Kendall MD at [facility] Knee 1 [id number] / [id number] Cr Femoral Right KNEE Right: Biomet 01/21/2028 18 3042 / Implanted: Qty: 1 on 01/07/2019 by Sedrick Kendall MD at [facility] Knee 1 [id number] / [id number] Adc Plate Tibial Cruciate 67 Mm - [id number] PLATE Right: Biomet 05/03/2028 [id number] / Implanted: Qty: 1 on 01/07/2019 by Sedrick Kendall MD at [facility] Knee J [id number] / [id number] documented as of this encounter Results Not on filedocumented in this encounter Visit Diagnoses Diagnosis Primary osteoarthritis of left knee - Pr imary Primary localized osteoarthrosis, lower leg documented in this encounter Insurance Payer Benefit Plan / Subscriber ID Effective Dates Phone Addre ss Type Group CAIO CONWAY [id number] 2018-Presen Medicare Adv PLUS PLUS t HMO CLASSIC/VALUE documented as of this encounter
--- OUTSIDE RECORDS SUMMARY | 2020-03-03 19:52 | XMS REPORT | Summary of Care ---
:1960 Author Organization [facility] - Health Address [address] [place] [address] Care Team Providers Name Role Phone Rey Farris Primary Care Provider Encounter Details Date Type Department Care Team Description 11/04/2019 Orders Only [facility] Doctor Unassigned, No [address] [facility] [place] [address] [address] [place] [id number] Allergies Active Allergy Reactions Severity Noted Date [...] as of this encounter (statuses as of 11/20/2019) Medications Medication Sig Dispensed Refills Start Date [...] as of this encounter (statuses as of 11/20/2019) Active Problems Problem Noted Date Total knee replacement status 01/07/2019 Primary osteoarthritis of right knee 01/02/2019 Overview: Added automatically from request for michela sky [id number] [facility] 04/11/2018 Morbid obesity with body mass index of 40.0-49.9 04/11 Knee pain, left 01/18/2016 Right knee pain 08/04/2015 documented as of this encounter (statuses as of 11/20/2019) Immunizations Name Administration Dates Next Due Pneumococcal [...] Encounter Surgery Stevan Calabrese MD [address] [address] [phone] Health Maintenance Due Date Last Done [...] of this encounter Implants Implanted Type Area Aircraft Structure Mechanic Device Shelf Model / Identifier Expiration Serial / Lot Date Bone Cement Palacos R Radiopaque Ayaan #[id number] - [id number] [id number] CEMENT Right: Ayaan 08/23/2019 [id number] / Implanted: Qty: 1 on 01/07/2019 by Sedrick Kendall MD at [facility] Knee 8 [id number] / [id number] Bearing Tibial 10 X 63/67 Mm #[id number] - [id number] KNEE Right: Bio met 08/24/2023 [id number] / Implanted: Qty: 1 on 01/07/2019 by Sedrick Kendall MD at [facility] Knee 9 [id number] / [id number] Patella 8 X 31mm Biomet#[id number] - [id number] KNEE Right: Biomet 08/29/2023 [id number] / Implanted: Qty: 1 on 01/07/2019 by Sedrick Kendall MD at [facility] Knee 1 [id number] / [id number] Cr Femoral Right KNEE Right: Biomet 01/21/2028 18 3042 / Implanted: Qty: 1 on 01/07/2019 by Sedrick Kendall MD at [facility] Knee 1 [id number] / [id number] Adc Plate Tibial Cruciate 67 Mm - [id number] PLATE Right: Biomet 05/03/2028 [id number] / Implanted: Qty: 1 on 01/07/2019 by Sedrick Kendall MD at [facility] Knee J [id number] / [id number] documented as of this encounter Procedures Procedure Name Priority Date/Time Associated Diagnosis Comme nts REFERRAL- Routine 11/04/2019 12:01 AM FOOD AND BEVERAGE OUTLETS MANAGER REQUEST/RESPONSE documented in this encounter Results Not on filedocumented in this encounter Insurance Payer Benefit Plan / Subscriber ID Effective Phone Address T ype Group Dates WELLCARE WELLCARE [id number] 2018-Prese Medic are Adv MEDICARE NON MEDICARE NON nt PPO CONTRACTED CONTRACTED WELL[employer]ARE [place] WELL[employer]ARE [place] [id number] 2018-Prese Medicare Adv PLUS PLUS nt HMO CLASSIC/VALUE documented as of this encounter
--- OUTSIDE RECORDS SUMMARY | 2020-03-03 19:52 | XMS REPORT | Summary of Care ---
:1960 Author Organization [facility] Address [address] [place] [address] Care Team Providers Name Role Phone Rey Farris Primary Care Provider Encounter Details Date Type Department Care Team Description 12/06/2019 Orders Only [facility] Doctor Unassigned, No [address] [facility] [place] [address] [address] [phone] Allergies Active Allergy Reactions Severity Noted Date Comments Bupropion Hcl Itching 04/06/2016 Latex, Natural Rubber Itching Medium 01/08/2019 Ketorolac Tromethamine Anaphylaxis 08/04/2015 Bupropion Unknown - See comments 08/04/2015 Zolpidem Unknown - See comments 04/06/2016 Sleep walk documented as of this encounter (statuses as of 12/06/2019) Medications Medication Sig Dispensed Refills Start Date End Date Status verapamil (VERELAN PM) Take 120 mg by 0 Active 120 mg 24 hr capsule mouth at bedtime. BREO ELLIPTA 100-25 Inhale 1 Puff as 0 03/25/2016 Active mcg/dose DsDv needed. metFORMIN 500 mg tablet Take 500 mg [...] by 0 Active tablet mouth at bedtime. methocarbamol 750 mg Take 750 mg by 0 10/29/2019 Active tablet mouth daily. SERTraline 50 mg tablet Take 50 mg by 0 11/07/2019 Active mouth at bedtime. spironolactone 25 mg Take 25 mg by 0 11/13/2019 Active tablet mouth daily. atorvastatin 20 mg Take 20 mg by 0 10/18/2019 Active tablet mouth daily. HYDROcodone-acetaminophe Take 1 tablet by 0 11/27/19 20 Active n 7.5-325 mg per tablet mouth 3 (three) times daily as needed. levothyroxine 100 mcg Take 100 mcg by 0 10/14/2019 Active tablet mouth every morning. losartan 100 mg tablet Take 100 mg by 0 10/04/2019 Active mouth daily. QUEtiapine 100 mg tablet Take 100 mg by 0 11/25/2019 Active mouth at bedtime. venlafaxine XR 75 mg 24 Take 75 mg by 0 10/29/2019 Active hr capsule mouth every evening. Hospital, Clinic, or Other Ordered Dose Route [...] as of this encounter (statuses as of 12/06/2019) Active Problems Problem Noted Date Primary osteoarthritis of left knee 12/05/2019 Overview: Added automatically from request for michela sky [id number] Total knee replacement status 01/07/2019 Primary osteoarthritis of right knee 01/02/2019 Overview: Added automatically from request for michela sky [id number] Hypoxia 04/11/2018 Morbid obesity with body mass index of 40.0-49.9 04/11 Knee pain, left 01/18/2016 Right knee pain 08/04/2015 documented as of this encounter (statuses as of 12/06/2019) Immunizations Name Administration Dates Next Due Pneumococcal [...] Care Team Description 12/09/2019 Hospital Encounter Surgery Sedrick Calabrese, [address] [place] [address] 12/09/2019 Hospital Encounter Surgery Sedrick Calabrese, Elizabeth sera osteoarthritis of MD left knee [address] [place] [address] [phone] 12/09/2019 Surgery Surgery Sedrick Calabrese, TOTAL KNE E ARTHROPLASTY [address] [place] [address] Health Maintenance Due Date Last Done Comments [...] of this encounter Implants Implanted Type Area Driver Examiner Device Shelf Model / Identifier Expiration Serial / Lot Date Bone Cement Palacos R Radiopaque Ayaan #[id number] - [id number] CEMENT Right: Ayaan 08/23/2019 [id number] / Implanted: Qty: 1 on 01/07/2019 by Sedrick Kendall MD at [facility] Knee 8 [id number] / [id number] Bearing Tibial 10 X 63/67 Mm #[id number] - [id number] KNEE Right: Bio met 08/24/2023 [id number] / Implanted: Qty: 1 on 01/07/2019 by Sedrick Kendall MD at [facility] Knee 9 [id number] / [id number] Patella 8 X 31mm Biomet#397310 - [id number] KNEE Right: Biomet 08/29/2023 [id number] / Implanted: Qty: 1 on 01/07/2019 by Sedrick Kendall MD at [facility] Knee 1 [id number] / [id number] Cr Femoral Right KNEE Right: Biomet 01/21/2028 18 3042 / Implanted: Qty: 1 on 01/07/2019 by Sedrick Kendall MD at [facility] Knee 1 [id number] / [id number] Adc Plate Tibial Cruciate 67 Mm - [id number] PLATE Right: Biomet 05/03/2028 [id number] / Implanted: Qty: 1 on 01/07/2019 by Sedrick Kendall MD at [facility] Knee J [id number] / [id number] documented as of this encounter Procedures Procedure Name Priority Date/Time Associated Diagnosis Comme nts ASSIGNMENT OF BENEFITS Routine 12/06/2019 2:12 PM TONG HOOKER documented in this encounter Results Not on filedocumented in this encounter Insurance Payer Benefit Plan / Subscriber ID Effective Phone Address T ype Group Dates [facility] [id number] 2018-Prese Medic are Adv MEDICARE NON MEDICARE NON nt PPO CONTRACTED CONTRACTED [facility] [place] [facility] HOWIENESHA [id number] 2018-Prese Medicare Adv PLUS PLUS nt HMO CLASSIC/VALUE documented as of this encounter
--- OUTSIDE RECORDS SUMMARY | 2020-03-03 19:53 | XMS REPORT | Summary of Care ---
:1960 Author Organization [facility] Address [address] [place] [address] Care Team Providers Name Role Phone Rey Farris Primary Care Provider Reason for Visit Reason Comments Notification The patient is calling to se e if we have authorization for her surgery. She also stated she has not signed any paperwork Encounter Details Date Type Department Care Team Description 12/02/2019 Telephone [facility] Orthopaedic Sedrick Calabrese otification (The Surgery- Arthur Moon MD patient is calling to [address], [address] see if we have [address] [place] [address] [place], [place] surgery. She also stated [phone] [address] she has not signed any [phone] paperwork) Allergies Active Allergy Reactions Severity Noted Date [...] Added automatically from request for michela sky [id number] Hypoxia 04/11/2018 Morbid obesity with body mass [...] Encounter Surgery Stevan Calabrese MD [address] [phone] Health Maintenance Due Date Last Done [...] of this encounter Implants Implanted Type Area Vmware Consultant Device Shelf Model / Identifier Expiration Serial / Lot Date Bone Cement Palacos R Radiopaque Ayaan #[id number] - [id number] CEMENT Right: Ayaan 08/23/2019 [id number] / Implanted: Qty: 1 on 01/07/2019 by Sedrick Kendall MD at [facility] Knee 8 [id number] / [id number] Bearing Tibial 10 X 63/67 Mm #[id number] - [id number] KNEE Right: Bio met 08/24/2023 [id number] / Implanted: Qty: 1 on 01/07/2019 by Sedrick Kendall MD at [facility] Knee 9 [id number] / [id number] Patella 8 X 31mm Biomet#173981 - [id number] KNEE Right: Biomet 08/29/2023 710869 / Implanted: Qty: 1 on 01/07/2019 by Sedrick Kendall MD at [facility] Knee 1 [id number] / [id number] Cr Femoral Right KNEE Right: Biomet 01/21/2028 18 3042 / Implanted: Qty: 1 on 01/07/2019 by Sedrick Kendall MD at [facility] Knee 1 [id number] / [id number] Adc Plate Tibial Cruciate 67 Mm - [id number] PLATE Right: Biomet 05/03/2028 482012 / Implanted: Qty: 1 on 01/07/2019 by Sedrick Kendall MD at [facility] Knee J [id number] / [id number] documented as of this encounter Results Not on filedocumented in this encounter Insurance Payer Benefit Plan / Subscriber ID Effective Phone Address T ype Group Dates [facility] [id number] 2018-Prese Medic are Adv MEDICARE NON MEDICARE NON nt PPO CONTRACTED CONTRACTED [facility]HA [facility] [id number] 2018-Prese Medicare Adv PLUS PLUS nt HMO CLASSIC/VALUE documented as of this encounter
--- OUTSIDE RECORDS SUMMARY | 2020-03-03 19:53 | XMS REPORT | Summary of Care ---
:1960 Author Organization [facility] Address [address] [place] [address] Care Team Providers Name Role Phone Rey Farris Primary Care Provider Reason for Visit Reason Comments LAB WORK Auth/Cert Status Reason Specialty Diagnoses / Procedures Referred By Mo gironerred To Contact Contact Phlebotomy Diagnoses Primary osteoarthritis of left knee M17.12 (ICD-10-CM) - Primary osteoarthritis of left knee Adc Pob Lab Draw Procedures URINALYSIS TYPE AND SCREEN URINALYSIS TYPE AND SCREEN Professional Office [address] , [address] [place] [address] Fax: Encounter Details Date Type Department Care Team Description 12/06/2019 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 [facility] Sedrick Calabrese MD [address] [place] [address] [place] [address] Primary osteoarthritis Professional Office Pob, 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 of left knee Building Phlebotomy Lab Professional Office Building [address] [facility] , [address] [place] [address] Allergies Active Allergy Reactions Severity Noted Date [...] Added automatically from request for michela sky [id number] Total knee replacement status 01/07/2019 Primary osteoarthritis of right knee 01/02/2019 Overview: Added automatically from request for michela sky [id number] Hypoxia 04/11/2018 Morbid obesity with body mass [...] Team Description 12/09/2019 Hospital Encounter Surgery Sedrick Calabrese MD [address] [place] [address] 12/09/2019 Hospital Encounter Surgery Sedrick Calabrese, Elizabeth sera osteoarthritis of MD left knee [address] [place] [address] 12/09/2019 Surgery Surgery Sedrick Calabrese, TOTAL KNE E ARTHROPLASTY [address] [place] [address] Name Type Priority Associated Diagnoses Date/Ti me URINALYSIS LAB Routine Primary osteoarthritis of le ft knee 12/06/2019 2:39 PM TAG MARKER Health Maintenance Due Date Last Done Comments [...] of this encounter Implants Implanted Type Area Grounds Crew Supervisor Device Shelf Model / Identifier Expiration Serial / Lot Date Bone Cement Palacos R Radiopaque Ayaan #[id number] - [id number] [id number] CEMENT Right: Ayaan 08/23/2019 [id number] / Implanted: Qty: 1 on 01/07/2019 by Sedrick Kendall MD at [facility] Knee 8 [id number] / [id number] Bearing Tibial 10 X 63/67 Mm #815060 - [id number] KNEE Right: Bio met 08/24/2023 409528 / Implanted: Qty: 1 on 01/07/2019 by Sedrick Kendall MD at [facility] Knee 9 [id number] / [id number] Patella 8 X 31mm Biomet#448304 - [id number] KNEE Right: Biomet 08/29/2023 036647 / Implanted: Qty: 1 on 01/07/2019 by Sedrick Kendall MD at [facility] Knee 1 [id number] / [id number] Cr Femoral Right KNEE Right: Biomet 01/21/2028 18 3042 / Implanted: Qty: 1 on 01/07/2019 by Sedrick Kendall MD at [facility] Knee 1 [id number] / [id number] Adc Plate Tibial Cruciate 67 Mm - [id number] PLATE Right: Biomet 05/03/2028 [id number] / Implanted: Qty: 1 on 01/07/2019 by Sedrick Kendall MD at [facility] Knee J [id number] / [id number] documented as of this encounter Results Not on filedocumented in this encounter Visit Diagnoses Diagnosis Primary osteoarthritis of left knee Primary localized osteoarthrosis, lower leg documented in this encounter Insurance Payer Benefit Plan / Subscriber ID Effective Dates Phone Addre ss Type Group [employer] [place] [employer] [place] [id number] 2018-Presen Medicare Adv PLUS PLUS t HMO CLASSIC/VALUE documented as of this encounter
--- OUTSIDE RECORDS SUMMARY | 2020-03-03 19:53 | XMS REPORT | Summary of Care ---
:1960 Author Organization [facility] Address [address] [place] [address] Care Team Providers Name Role Phone Rey Farris Primary Care Provider Encounter Details Date Type Department Care Team Description 12/02/2019 Orders Only [facility] Doctor Unassigned, No [address] [facility] [place] [address] [address] [phone] Allergies Active Allergy Reactions Severity Noted Date [...] by 0 Active tablet mouth at bedtime. documented as of this encounter (statuses as of 12/06/2019) Active Problems Problem Noted Date Primary osteoarthritis of left knee 12/05/2019 Overview: Added automatically from request for michela sky [id number] Total knee replacement status 01/07/2019 Primary osteoarthritis of right knee 01/02/2019 Overview: Added automatically from request for micheal sky [id number] Hypoxia 04/11/2018 Morbid obesity with body mass [...] 12/09/2019 Hospital Encounter Surgery Sedrick Calabrese MD [address] [place] [phone] 12/09/2019 Hospital Encounter Surgery Sedrick Calabrese, [facility] sera osteoarthritis of MD left knee [address] [place] [address] [phone] 12/09/2019 Surgery Surgery Sedrick Calabrese, TOTAL KNE E ARTHROPLASTY [address] [place] [address] [phone] Health Maintenance Due Date Last Done Comments [...] of this encounter Implants Implanted Type Area Rag Sorter Device Shelf Model / Identifier Expiration Serial / Lot Date Bone Cement Palacos R Radiopaque Ayaan #[id number] - [id number] [id number] CEMENT Right: Ayaan 08/23/2019 [id number] / Implanted: Qty: 1 on 01/07/2019 by Sedrick Kendall MD at [facility] Knee 8 [id number] / [id number] Bearing Tibial 10 X 63/67 Mm #092249 - [id number] KNEE Right: Bio met 08/24/2023 812432 / Implanted: Qty: 1 on 01/07/2019 by Sedrick Kendall MD at [facility] Knee 9 [id number] / [id number] Patella 8 X 31mm Biomet#475933 - [id number] KNEE Right: Biomet 08/29/2023 027484 / Implanted: Qty: 1 on 01/07/2019 by Sedrick Kendall MD at [facility] Knee 1 55067 / [id number] Cr Femoral Right KNEE Right: Biomet 01/21/2028 18 3042 / Implanted: Qty: 1 on 01/07/2019 by Sedrick Kendall MD at [facility] Knee 1 [id number] / [id number] Adc Plate Tibial Cruciate 67 Mm - [id number] PLATE Right: Biomet 05/03/2028 304586 / Implanted: Qty: 1 on 01/07/2019 by Sedrick Kendall MD at [facility] Knee J [id number] / [id number] documented as of this encounter Procedures Procedure Name Priority Date/Time Associated Diagnosis Comme nts MEDICAL Routine 12/02/2019 12:01 AM 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
--- OUTSIDE RECORDS SUMMARY | 2020-03-03 19:53 | XMS REPORT | Summary of Care ---
:1960 Author Organization [facility] Address [address] [place] [address] Care Team Providers Name Role Phone Rey Farris Primary Care Provider Encounter Details Date Type Department Care Team Description 12/02/2019 Letter (Out) [facility] Orthopaedic Sedrick Calabrese MD Surgery- [place] [address], [place] [address] [place] [address] [place], [place] [phone] Allergies Active Allergy Reactions Severity Noted Date [...] Added automatically from request for michela sky [id number] Hypoxia 04/11/2018 Morbid obesity with body mass [...] Encounter Surgery Stevan Calabrese MD [address] [phone] Health Maintenance Due Date Last Done [...] of this encounter Implants Implanted Type Area Utility Worker Device Shelf Model / Identifier Expiration Serial / Lot Date Bone Cement Palacos R Radiopaque Ayaan #[id number] - [id number] CEMENT Right: Ayaan 08/23/2019 [id number] / Implanted: Qty: 1 on 01/07/2019 by Sedrick Kendall MD at [facility] Knee 8 [id number] / [id number] Bearing Tibial 10 X 63/67 Mm #383219 - [id number] KNEE Right: Bio met 08/24/2023 978996 / Implanted: Qty: 1 on 01/07/2019 by Sedrick Kendall MD at [facility] Knee 9 [id number] / [id number] Patella 8 X 31mm Biomet#310068 - [id number] KNEE Right: Biomet 08/29/2023 096305 / Implanted: Qty: 1 on 01/07/2019 by Sedrick Kendall MD at [facility] Knee 1 30775 / [id number] Cr Femoral Right KNEE Right: Biomet 01/21/2028 18 3042 / Implanted: Qty: 1 on 01/07/2019 by Sedrick Kendall MD at [facility] Knee 1 [id number] / [id number] Adc Plate Tibial Cruciate 67 Mm - [id number] PLATE Right: Biomet 05/03/2028 [id number] / Implanted: Qty: 1 on 01/07/2019 by Sedrick Kendall MD at [facility] Knee J [id number] / [id number] documented as of this encounter Results Not on filedocumented in this encounter Insurance Payer Benefit Plan / Subscriber ID Effective Phone Address T ype Group Dates [facility] [id number] 2018-Prese Medic are Adv MEDICARE NON MEDICARE NON nt PPO CONTRACTED CONTRACTED [facility] [place]OR[place] [employer] ZORAIDA [id number] 2018-Prese Medicare Adv PLUS PLUS nt HMO CLASSIC/VALUE documented as of this encounter
--- OUTSIDE RECORDS SUMMARY | 2020-03-03 19:54 | XMS REPORT | Summary of Care ---
:1960 Author Organization [facility] - [facility] Address [address] [place] [address] Care Team Providers Name Role Phone Rey Farris Primary Care Provider Reason for Visit Auth/Cert Status Reason Specialty Diagnoses / Procedures Referred By Mo eferred To Contact Contact Surgery Diagnoses Unilateral primary osteoarthritis, left knee Primary osteoarthritis of left knee [M17.12] Adc Pre/P acu/Post Procedures ID TOTAL KNEE ARTHROPLASTY TOTAL KNEE ARTHROPLASTY [id number] - [place] TOTAL KNEE ARTHROPLASTY [address] [place], [place] [address] Fax: Encounter Details Date Type Department Care Team Description 12/09/2019 Anesthesia [facility] Mabel Diehl CRNA [address] [place] [address] [phone] Surgical Center Fariha Lee CRNA [address] [place] [address] [place] [phone] [address] [place] [address] [place] [address] Allergies Active Allergy Reactions Severity Noted Date Comments Bupropion Hcl Itching 04/06/2016 Latex, Natural Rubber Itching Medium 01/08/2019 Ketorolac Tromethamine Anaphylaxis 08/04/2015 Bupropion Unknown - See comments 08/04/2015 Zolpidem Unknown - See comments 04/06/2016 Sleep walk documented as of this encounter (statuses as of 12/09/2019) Medications Medication Sig Dispensed Refills Start Date End Date Status verapamil (VERELAN PM) Take 120 mg by 0 Suspended 120 mg 24 hr capsule mouth at bedtime. BREO ELLIPTA 100-25 Inhale 1 Puff 0 03/25/2016 Suspended mcg/dose DsDv as needed. metFORMIN 500 mg tablet Take 500 mg by 0 Suspended mouth 2 (two) times daily with meals. rOPINIRole 2 mg tablet Take 2 mg by 0 Suspended mouth at bedtime. venlafaxine XR 150 mg Take 150 mg by 0 Suspended 24 hr capsule mouth daily with breakfast. clonazePAM 0.5 mg Take 0.5 mg by 0 Suspended tabletIndications: mouth at 1/2tab bedtime. pantoprazole 40 mg EC Take 40 mg by 0 Suspended tablet mouth daily. amitriptyline 75 mg Take 75 mg by 0 Suspended tablet mouth at bedtime. methocarbamol 750 mg Take 750 mg by 0 10/29/2019 Suspended tablet mouth daily. SERTraline 50 mg tablet Take 50 mg by 0 11/07/2019 Suspended mouth at bedtime. spironolactone 25 mg Take 25 mg by 0 11/13/2019 Suspended tablet mouth daily. atorvastatin 20 mg Take 20 mg by 0 10/18/2019 Suspended tablet mouth daily. HYDROcodone-acetaminoph Take 1 tablet 0 11/27/2019 Suspended en 7.5-325 mg per by mouth 3 tablet (three) times daily as needed. levothyroxine 100 mcg Take 100 mcg 0 10/14/2019 Suspended tablet by mouth every morning. losartan 100 mg tablet Take 100 mg by 0 10/04/2019 Suspended mouth daily. QUEtiapine 100 mg Take 100 mg by 0 11/25/2019 Suspended tablet mouth at bedtime. venlafaxine XR 75 mg 24 Take 75 mg by 0 10/29/2019 Suspended hr capsule mouth every evening. documented as of this encounter (statuses as of 12/09/2019) Active Problems Problem Noted Date Primary osteoarthritis of left knee 12/05/2019 Overview: Added automatically from request for michela jose daniel [id number] Total knee replacement status 01/07/2019 Primary osteoarthritis of right knee 01/02/2019 Overview: Added automatically from request for michela sky [id number] Hypoxia 04/11/2018 Morbid obesity with body mass index of 40.0-49.9 04/11 Knee pain, left 01/18/2016 Right knee pain 08/04/2015 documented as of this encounter (statuses as of 12/09/2019) Immunizations Name Administration Dates Next Due Pneumococcal [...] of this encounter Implants Implanted Type Area Acoustical Installer Device Shelf Model / Identifier Expiration Serial / Date Lot Bone Cement Palacos R Rad[place]aque Ayaan #[id number] - [id number] CEMENT Right: Ayaan 08/23/2019 [id number] / Implanted: Qty: 1 on 01/07/2019 by Sedrick Kendall MD at [facility] Knee 8 [id number] / [id number] Cement Simplex Hv #6194-1-001 - Sn/A CEMENT Left: [place] 01/20/2021 6194-1-001 / Implanted: Qty: 1 on 12/09/2019 by Sedrick Kendall MD at [facility] Knee N /A / [id number] Bearing Tibial 10 X 63/67 Mm #[id number] - [id number] KNEE Right: Bio met 08/24/2023 [id number] / Implanted: Qty: 1 on 01/07/2019 by Sedrick Kendall MD at [facility] Knee 9 [id number] / [id number] Patella 8 X 31mm Biomet#[id number] - [id number] KNEE Right: Biomet 08/29/2023 [id number] / Implanted: Qty: 1 on 01/07/2019 by Sedrick Kendall MD at [facility] Knee 1 [id number] / [id number] Cr Femoral Right KNEE Right: Biomet 01/21/2028 18 [id number] / Implanted: Qty: 1 on 01/07/2019 by Sedrick Kendall MD at [facility] Knee 1 [id number] / [id number] Component Patella 32mm Vera 8mm Biomet #[id number] - [id number] Other Le ft: Biomet 11/11/2024 [id number] / Implanted: Qty: 1 on 12/09/2019 by Sedrick Kendall MD at [facility] Implant Knee 1 [id number] / [id number] Adc Plate Tibial Cruciate 67 Mm - [id number] PLATE Right: Biomet 05/03/2028 [id number] / Implanted: Qty: 1 on 01/07/2019 by Sedrick Kendall MD at [facility] Knee J [id number] / [id number] Screw Acetabular 6.5mm Vera 30mml Cancellous Ayaan #[id number] - [id number] Left: Biomet 09/02/2029 [id number] / Implanted: Qty: 4 on 12/09/2019 by Sedrick Kendall MD at [facility] Knee 1 [id number] / [id number] Component Tibial Tray Cementless 67mml Biomet #[id number] - [id number] Left: Biomet 03/20/2024 [id number] / Implanted: Qty: 1 on 12/09/2019 by Sedrick Kendall MD at [facility] Knee 1 [id number] / [id number] Bearing Tibial 10 X 63/67 Mm #[id number] - [id number] Left: Bio met 07/01/2024 [id number] / Implanted: Qty: 1 on 12/09/2019 by Sedrick Kendall MD at [facility] Knee 1 [id number] / [id number] Adc Femur 57.5 Mm Left - [id number] Left: Biomet 02/11/2029 [id number] / Implanted: Qty: 1 on 12/09/2019 by Sedrick Kendall MD at [facility] Knee 1 [id number] / [id number] Stem Finned Primary 40mm Biomet #[id number] - [id number] Left: Biomet 11/19/2029 [id number] / Implanted: Qty: 1 on 12/09/2019 by Sedrick Kendall MD at [facility] Knee 1 [id number] / [id number] documented as of this encounter Procedures Procedure Name Priority Date/Time Associated Diagnosis Comme nts NERVE BLOCK Routine 12/09/2019 10:23 AM Results for this BACTERIOLOGY RESEARCH ASSISTANT procedure are i n the results section . documented in this encounter Results adductor canal canal blockk (12/09/2019 10:23 AM BACTERIOLOGY RESEARCH ASSISTANT) Narrative Performed At [facility] CRNA 12/09/2019 3:30 PM Nerve Block Laterality: Left Surgical Anesthesia: no Start Time: 12/09/2019 10:02 AM End Time: 12/09/2019 10:20 AM Resident/BALANCER SCALE: Mabel Priest CRNAPerformed by: reside nt/BALANCER SCALE Preanesthetic timeout completed prior to procedure: heriberto duron identified,IV checked, site marked, risks and benefits discussed, surgical consent Patient position: supine. Monitoring: continuous pulse ox, blood p ressure and ECG Injection Technique: single-shot Nerve Block Needle Gauge: 20g. Needle Length: 4.0 Number of Attempts: 1 Technique: Ultrasound guided, Negative a spiration and Intermittent aspiration during injection Medications Given: Regional: Bupiv 0.25% 12.5 mL Bupiv 0.5% 12.5 mL dexamethasone 10 mg/ml 1 mL Additional Notes:Block performed by Nidia Freitas, BALANCER SCALE ___ __ documented in this encounter Administered Medications Medication Order MAR Action Action Date Dose Rate Site ceFAZolin in dextrose (iso-os) Given 12/09/2019 8:22 AM BACTERIOLOGY RESEARCH ASSISTANT 2 g (ANCEF) 2 gram/100 mL Piggyback 2 g 2 g (2,000 mg), IV Piggyback, O.R. HOLDING ONCE, 1 dose, Starting Mon12/09/19 at 0930, Until Mon12/09/19 at 0822, 100 mL, DSU Pre-op, Reason for Anti-Infective: Surgical Prophylaxis, Surgical Prophylaxis: Orthopaedic, Duration of therapy: within 24 hours of surgery Given 12/09/2019 8:07 AM BACTERIOLOGY RESEARCH ASSISTANT 2 g dexamethasone sod phos PF injection Given 12/09/2019 10:25 AM BACTERIOLOGY RESEARCH ASSISTANT 5 mg ONCE INTRA PROCEDURE, Starting 12/09/19 at 1025, Until Mon12/09/19 at 1532, Routine, Intra-op diphenhydrAMINE (BENADRYL) injection Given 12/09/2019 8:56 AM BACTERIOLOGY RESEARCH ASSISTANT 25 mg ONCE INTRA PROCEDURE, Starting 12/09/19 at 0856, Until Mon12/09/19 at 1027, Routine, Intra-op FENTanyl PF (SUBLIMAZE (PF)) injection Given 12/09/2019 8:52 AM BACTERIOLOGY RESEARCH ASSISTANT 50 mcg ONCE INTRA PROCEDURE, Starting 12/09/19 at 0852, Until Mon12/09/19 at 1027, Routine, Intra-op Given 12/09/2019 8:39 AM BACTERIOLOGY RESEARCH ASSISTANT 50 mcg hydralAZINE (APRESOLINE) injection Given 12/09/2019 9:04 AM BACTERIOLOGY RESEARCH ASSISTANT 5 mg ONCE INTRA PROCEDURE, Starting 12/09/19 at 0904, Until Mon12/09/19 at 1027, Routine, Intra-op HYDROmorphOne (DILAUDID) injection Given 12/09/2019 8:56 AM BACTERIOLOGY RESEARCH ASSISTANT 1 mg ONCE INTRA PROCEDURE, Starting 12/09/19 at 0856, Until Mon12/09/19 at 1027, Routine, Intra-op lidocaine 1% (XYLOCAINE) 100 mg/10 mL (1 %) Given 12/09/2019 8:22 AM BACTERIOLOGY RESEARCH ASSISTANT 50 mL injection ONCE INTRA PROCEDURE, Starting 12/09/19 at 0822, Until Mon12/09/19 at 1027, Routine, Intra-op midazolam (VERSED) injection Given 12/09/2019 8:12 AM BACTERIOLOGY RESEARCH ASSISTANT 2 mg ONCE INTRA PROCEDURE, Starting Mon12/09/19 at 0812, Until Mon12/09/19 at 1027, Routine, Intra-op ondansetron (ZOFRAN (PF)) injection Given 12/09/2019 8:53 AM BACTERIOLOGY RESEARCH ASSISTANT 4 mg ONCE INTRA PROCEDURE, Starting Mon12/09/19 at 0853, Until Mon12/09/19 at 1027, Routine, Intra-op propofol IV infusion Given 12/09/2019 8:22 AM BACTERIOLOGY RESEARCH ASSISTANT 150 mg Intravenous, ONCE INTRA PROCEDURE, Starting Mon12/09/19 at 0822, Until Mon12/09/19 at 1027, Routine, Intra-op ropivacaine 0.2 % (NAROPIN (PF)) epidural Given 12/09/2019 1 0:25 AM BACTERIOLOGY RESEARCH ASSISTANT 12.5 mL infusion ONCE INTRA PROCEDURE, Starting Mon12/09/19 at 1025, Until Mon12/09/19 at 1027, Routine, Intra-op ropivacaine 0.5 % (NAROPIN (PF)) injecti on Given 12/09/2019 10:25 AM BACTERIOLOGY RESEARCH ASSISTANT 12.5 mL ONCE INTRA PROCEDURE, Starting Mon12/09/19 at 1025, Until Mon12/09/19 at 1531, Routine, Intra-op tranexamic acid (CYKLOKAPRON) 1,000 mg New Bag 12/09/2019 8:3 1 AM BACTERIOLOGY RESEARCH ASSISTANT 1,000 mg in NaCl 0.9% (NS) 250 mL piggyback 1,000 mg, IV Piggyback, ONCE, 1 dose, Mon12/09/19 at 0715, 250 mL, DSU Pre-op documented in this encounter Insurance Payer Benefit Plan / Subscriber ID Effective Dates Phone Addre ss Type Group [facility] [place] [facility] [place] [id number] 2018-Presen Medicare Adv PLUS PLUS t HMO CLASSIC/VALUE documented as of this encounter
--- OUTSIDE RECORDS SUMMARY | 2020-03-03 19:54 | XMS REPORT | Summary of Care ---
:1960 Author Organization [facility] Address [address] [place] [address] Care Team Providers Name Role Phone Rey Farris Primary Care Provider Encounter Details Date Type Department Care Team Description 12/02/2019 Letter (Out) [facility] Orthopaedic Sedrick Calabrese MD Surgery- [place] [address], [place] [address] [place], [place] [phone] [address] [phone] Allergies Active Allergy Reactions Severity Noted Date [...] as of this encounter (statuses as of 12/03/2019) Medications Medication Sig Dispensed Refills Start Date [...] as of this encounter (statuses as of 12/03/2019) Active Problems Problem Noted Date Total knee replacement status 01/07/2019 Primary osteoarthritis of right knee 01/02/2019 Overview: Added automatically from request for michela sky [id number] Hypoxia 04/11/2018 Morbid obesity with body mass index of 40.0-49.9 04/11 Knee pain, left 01/18/2016 Right knee pain 08/04/2015 documented as of this encounter (statuses as of 12/03/2019) Immunizations Name Administration Dates Next Due Pneumococcal [...] Encounter Surgery Stevan Calabrese MD [address] [place] [phone] Health Maintenance Due Date Last Done [...] of this encounter Implants Implanted Type Area Trolley Operator Device Shelf Model / Identifier Expiration Serial / Lot Date Bone Cement Palacos R Radiopaque Ayaan #[id number] - [id number] CEMENT Right: Ayaan 08/23/2019 [id number] / Implanted: Qty: 1 on 01/07/2019 by Sedrick Kendall MD at [facility] Knee 8 [id number] / [id number] Bearing Tibial 10 X 63/67 Mm #941253 - [id number] KNEE Right: Bio met 08/24/2023 184099 / Implanted: Qty: 1 on 01/07/2019 by Sedrick Kendall MD at [facility] Knee 9 [id number] / [id number] Patella 8 X 31mm Biomet#260736 - [id number] KNEE Right: Biomet 08/29/2023 [id number] / Implanted: Qty: 1 on 01/07/2019 by Sedrick Kendall MD at [facility] Knee 1 [id number] / [id number] Cr Femoral Right KNEE Right: Biomet 01/21/2028 18 3042 / Implanted: Qty: 1 on 01/07/2019 by Sedrick Kendall MD at [facility] Knee 1 [id number] / [id number] Adc Plate Tibial Cruciate 67 Mm - [id number] PLATE Right: Biomet 05/03/2028 [id number] / Implanted: Qty: 1 on 01/07/2019 by Sedrick Kendall MD at [facility] Knee J [id number] / [id number] documented as of this encounter Results Not on filedocumented in this encounter Insurance Payer Benefit Plan / Subscriber ID Effective Phone Address T ype Group Dates [email or web address] [id number] 2018-Prese Medic are Adv MEDICARE NON MEDICARE NON nt PPO CONTRACTED CONTRACTED [facility] [employer] [place] [id number] 2018-Prese Medicare Adv PLUS PLUS nt HMO CLASSIC/VALUE documented as of this encounter
--- OUTSIDE RECORDS SUMMARY | 2020-03-03 19:55 | XMS REPORT | Summary of Care ---
:1960 Author Organization [facility] - [facility] Address [address] [place] [address] Care Team Providers Name Role Phone Rey Farris Primary Care Provider Reason for Visit Auth/Cert Status Reason Specialty Diagnoses / Procedures Referred By Mo eferred To Contact Contact Surgery Diagnoses Unilateral primary osteoarthritis, left knee Primary osteoarthritis of left knee [M17.12] Adc Pre/P acu/Post Procedures [place] TOTAL KNEE ARTHROPLASTY TOTAL KNEE ARTHROPLASTY [id number] - [place] TOTAL KNEE ARTHROPLASTY [address] [facility] [address] [place], [place] [address] Fax: Encounter Details Date Type Department Care Team Description 12/09/2019 Anesthesia [facility] Mabel Diehl CRNA [address] [place] [address] [phone] Surgical Center Fariha Lee CRNA [address] [place] [address] [place] [phone] [address] [place] [address] [place] [address] Allergies Active Allergy Reactions Severity Noted Date Comments Bupropion Hcl Itching 04/06/2016 Latex, Natural Rubber Itching Medium 01/08/2019 Ketorolac Tromethamine Anaphylaxis 08/04/2015 Bupropion Unknown - See comments 08/04/2015 Zolpidem Unknown - See comments 04/06/2016 Sleep walk documented as of this encounter (statuses as of 12/12/2019) Medications Medication Sig Dispensed Refills Start Date [...] as of this encounter (statuses as of 12/12/2019) Active Problems Problem Noted Date Primary osteoarthritis of left knee 12/05/2019 Overview: Added automatically from request for michela jose daniel [id number] Total knee replacement status 01/07/2019 Primary osteoarthritis of right knee 01/02/2019 Overview: Added automatically from request for michela sky [id number] Hypoxia 04/11/2018 Morbid obesity with body mass index of 40.0-49.9 04/11 Knee pain, left 01/18/2016 Right knee pain 08/04/2015 documented as of this encounter (statuses as of 12/12/2019) Immunizations Name Administration Dates Next Due Pneumococcal [...] Treatment Date Type Specialty Care Team Description 12/24/2019 Office Visit Orthopedic Surgery Reuben Bansal, PAC [address] [place] [address] [phone] Health Maintenance Due Date Last Done Comments HEPATITIS C (HCV) SCREEN 1960 EYE EXAM 12/24/1969 DTaP,Tdap,and Td Vaccines (1 - 12/24/1970 Tdap) PAP SMEAR 12/24/1980 Breast Cancer Screening 1999 (MAMMOGRAM) COLONOSCOPY 12/24/2009 Zoster Recombinant Vaccine 12/24/2009 (SHINGRIX) (1 of 2) INFLUENZA VACCINE (#1) 2019 LDL-C 08/07/2019 08/07/2018, 04/11/2018, 04/06/2016 URINE MICROALBUMIN 08/07/2019 08/07/2018 FOOT EXAM 02/06/2020 02/05/2019, 02/05/2019, 08/07/2018, Additional history exists HgA1C 06/08/2020 12/09/2019, 02/05/2019, 08/07/2018, Additional history exists CREATININE (SERUM) 12/10/2020 12/10/2019, 05/05/2019, 01/08/2019, Additional history exists PNEUMOCOCCAL 0-64 YEARS COMBINED Completed 01/08/2019 SERIES documented as of this encounter Implants Implanted Type Area Fishing Rod Mechanic Device Shelf Model / Identifier Expiration Serial / Date Lot Bone Cement Palacos R Rad[place]aque Ayaan #[id number] - [id number] CEMENT Right: Ayaan 08/23/2019 [id number] / Implanted: Qty: 1 on 01/07/2019 by Sedrick Kendall MD at [facility] Knee 8 [id number] / [id number] Cement Simplex Hv #6194-1-001 - Sn/A CEMENT Left: [place] 01/20/2021 6194-1-001 / Implanted: Qty: 1 on 12/09/2019 by Sedrick Kendall MD at [facility] Knee N /A / [id number] Bearing Tibial 10 X 63/67 Mm #[id number] - [id number] KNEE Right: Bio met 08/24/2023 [id number] / Implanted: Qty: 1 on 01/07/2019 by Sedrick Kendall MD at [facility] Knee 9 [id number] / [id number] Patella 8 X 31mm Biomet#047456 - [id number] KNEE Right: Biomet 08/29/2023 [id number] / Implanted: Qty: 1 on 01/07/2019 by Sedrick Kendall MD at [facility] Knee 1 [id number] / [id number] Cr Femoral Right KNEE Right: Biomet 01/21/2028 18 3042 / Implanted: Qty: 1 on 01/07/2019 by Sedrick Kendall MD at [facility] Knee 1 [id number] / [id number] Component Patella 32mm Vera 8mm Biomet #417442 - [id number] Other Le ft: Biomet 11/11/2024 [id number] / Implanted: Qty: 1 on 12/09/2019 by Sedrick Kendall MD at [facility] Implant Knee 1 92064 / [id number] Adc Plate Tibial Cruciate 67 Mm - [id number] PLATE Right: Biomet 05/03/2028 722366 / Implanted: Qty: 1 on 01/07/2019 by Sedrick Kendall MD at [facility] Knee J [id number] / [id number] Screw Acetabular 6.5mm Vera 30mml Cancellous Ayaan #725694 - [id number] SCREW Left: Biomet 09/02/2029 [id number] / Implanted: Qty: 4 on 12/09/2019 by Sedrick Kendall MD at [facility] Knee 1 [id number] / [id number] Component Tibial Tray Cementless 67mml Biomet #137442 - [id number] Left: Biomet 03/20/2024 [id number] / Implanted: Qty: 1 on 12/09/2019 by Sedrick Kendall MD at [facility] Knee 1 [id number] / [id number] Bearing Tibial 10 X 63/67 Mm #850058 - [id number] Left: Bio met 07/01/2024 [id number] / Implanted: Qty: 1 on 12/09/2019 by Sedrick Kendall MD at [facility] Knee 1 [id number] / [id number] Adc Femur 57.5 Mm Left - [id number] Left: Biomet 02/11/2029 [id number] / Implanted: Qty: 1 on 12/09/2019 by Sedrick Kendall MD at [facility] Knee 1 [id number] / [id number] Stem Finned Primary 40mm Biomet #[id number] - [id number] Left: Biomet 11/19/2029 [id number] / Implanted: Qty: 1 on 12/09/2019 by Sedrick Kendall MD at [facility] Knee 1 [id number] / [id number] documented as of this encounter Procedures Procedure Name Priority Date/Time Associated Diagnosis Comme nts NERVE BLOCK Routine 12/09/2019 10:23 AM Results for this IRRIGATION INSTALLATION SPECIALIST procedure are i n the results section . documented in this encounter Results adductor canal canal blockk (12/09/2019 10:23 AM IRRIGATION INSTALLATION SPECIALIST) Narrative Performed At [facility] 12/09/2019 3:30 PM Nerve Block Laterality: Left Surgical Anesthesia: no Start Time: 12/09/2019 10:02 AM End Time: 12/09/2019 10:20 AM Resident/PROGRAM MANAGER ENVIRONMENTAL PLANNING: Mabel Priest CRNAPerformed by: reside nt/PROGRAM MANAGER ENVIRONMENTAL PLANNING Preanesthetic timeout completed prior to procedure: pa tient identified,IV checked, site marked, risks and benefits [...] mL Additional Notes:Block performed by Nidia Freitas, PROGRAM MANAGER ENVIRONMENTAL PLANNING ___ __ documented in this encounter Administered Medications Medication Order MAR Action Action Date Dose Rate Site ceFAZolin in dextrose (iso-os) Given 12/09/2019 8:22 AM IRRIGATION INSTALLATION SPECIALIST 2 g (ANCEF) 2 gram/100 mL Piggyback 2 g 2 g (2,000 mg), IV Piggyback, O.R. HOLDING ONCE, 1 dose, Starting Mon12/09/19 at 0930, Until Mon12/09/19 at 0822, 100 mL, DSU Pre-op, Reason for Anti-Infective: Surgical Prophylaxis, Surgical Prophylaxis: Orthopaedic, Duration of therapy: within 24 hours of surgery Given 12/09/2019 8:07 AM IRRIGATION INSTALLATION SPECIALIST 2 g dexamethasone sod phos PF injection Given 12/09/2019 10:25 AM IRRIGATION INSTALLATION SPECIALIST 5 mg ONCE INTRA PROCEDURE, Starting 12/09/19 at 1025, Until Mon12/09/19 at 1532, Routine, Intra-op diphenhydrAMINE (BENADRYL) injection Given 12/09/2019 8:56 AM IRRIGATION INSTALLATION SPECIALIST 25 mg ONCE INTRA PROCEDURE, Starting 12/09/19 at 0856, Until Mon12/09/19 at 1027, Routine, Intra-op FENTanyl PF (SUBLIMAZE (PF)) injection Given 12/09/2019 8:52 AM IRRIGATION INSTALLATION SPECIALIST 50 mcg ONCE INTRA PROCEDURE, Starting 12/09/19 at 0852, Until Mon12/09/19 at 1027, Routine, Intra-op Given 12/09/2019 8:39 AM IRRIGATION INSTALLATION SPECIALIST 50 mcg hydralAZINE (APRESOLINE) injection Given 12/09/2019 9:04 AM IRRIGATION INSTALLATION SPECIALIST 5 mg ONCE INTRA PROCEDURE, Starting Mon12/09/19 at 0904, Until 12/09/19 at 1027, Routine, Intra-op HYDROmorphOne (DILAUDID) injection Given 12/09/2019 8:56 AM IRRIGATION INSTALLATION SPECIALIST 2 mg ONCE INTRA PROCEDURE, Starting 12/09/19 at 0856, Until 12/09/19 at 1027, Routine, Intra-op lidocaine 1% (XYLOCAINE) 100 mg/10 mL (1 %) Given 12/09/2019 8:22 AM IRRIGATION INSTALLATION SPECIALIST 50 mL injection ONCE INTRA PROCEDURE, Starting 12/09/19 at 0822, Until Mon12/09/19 at 1027, Routine, Intra-op midazolam (VERSED) injection Given 12/09/2019 8:12 AM IRRIGATION INSTALLATION SPECIALIST 2 mg ONCE INTRA PROCEDURE, Starting Mon12/09/19 at 0812, Until Mon12/09/19 at 1027, Routine, Intra-op ondansetron (ZOFRAN (PF)) injection Given 12/09/2019 8:53 AM IRRIGATION INSTALLATION SPECIALIST 4 mg ONCE INTRA PROCEDURE, Starting 12/09/19 at 0853, Until Mon12/09/19 at 1027, Routine, Intra-op propofol IV infusion Given 12/09/2019 8:22 AM IRRIGATION INSTALLATION SPECIALIST 150 mg Intravenous, ONCE INTRA PROCEDURE, Starting 12/09/19 at 0822, Until Mon12/09/19 at 1027, Routine, Intra-op ropivacaine 0.2 % (NAROPIN (PF)) epidural Given 12/09/2019 1 0:25 AM IRRIGATION INSTALLATION SPECIALIST 12.5 mL infusion ONCE INTRA PROCEDURE, Starting 12/09/19 at 1025, Until Mon12/09/19 at 1027, Routine, Intra-op ropivacaine 0.5 % (NAROPIN (PF)) injecti on Given 12/09/2019 10:25 AM IRRIGATION INSTALLATION SPECIALIST 12.5 mL ONCE INTRA PROCEDURE, Starting 12/09/19 at 1025, Until 12/09/19 at 1531, Routine, Intra-op tranexamic acid (CYKLOKAPRON) 1,000 mg New Bag 12/09/2019 8:3 1 AM IRRIGATION INSTALLATION SPECIALIST 1,000 mg in NaCl 0.9% (NS) 250 mL piggyback 1,000 mg, IV Piggyback, ONCE, 1 dose, Mon12/09/19 at 0715, 250 mL, DSU Pre-op documented in this encounter Insurance Payer Benefit Plan / Subscriber ID Effective Dates Phone Addre ss Type Group [employer] [facility] [place] [id number] 2018-Presen Medicare Adv PLUS PLUS t HMO CLASSIC/VALUE documented as of this encounter
--- OUTSIDE RECORDS SUMMARY | 2020-03-03 19:56 | XMS REPORT | Summary of Care ---
:1960 Author Organization [facility] Address [address] [place] [address] Care Team Providers Name Role Phone Rey Farris Primary Care Provider Reason for Visit Reason Comments Notification condition of wound Encounter Details Date Type Department Care Team Description 12/15/2019 Telephone [facility] Orthopaedic Sedrick Calabrese otification (condition Surgery- Arthur Moon MD of wound) [address], [address] [place] [place] [address] [place], [place] [phone] Allergies Active Allergy Reactions Severity Noted Date Comments Bupropion Hcl Itching 04/06/2016 Latex, Natural Rubber Itching Medium 01/08/2019 Ketorolac Tromethamine Anaphylaxis 08/04/2015 Bupropion Unknown - See comments 08/04/2015 Zolpidem Unknown - See comments 04/06/2016 Sleep walk documented as of this encounter (statuses as of 12/16/2019) Medications Medication Sig Dispensed Refills Start Date End Date Status verapamil (VERELAN Take 120 mg by 0 Active PM) 120 mg 24 hr mouth at bedtime. capsule BREO ELLIPTA 100-25 Inhale 1 Puff as 0 03/25/2016 Active mcg/dose DsDv needed. metFORMIN 500 mg Take 500 mg by 0 Active tablet mouth 2 (two) times daily with meals. rOPINIRole 2 mg Take 2 mg by mouth 0 Active tablet at bedtime. venlafaxine XR 150 mg Take 150 mg by 0 Active 24 hr capsule mouth daily with breakfast. clonazePAM 0.5 mg Take 0.5 mg by 0 Active tabletIndications: mouth at bedtime. 1/2tab pantoprazole 40 mg EC Take 40 mg by 0 Active tablet mouth daily. amitriptyline 75 mg Take 75 mg by 0 Active tablet mouth at bedtime. methocarbamol 750 mg Take 750 mg by 0 10/29/2019 Active tablet mouth daily. SERTraline 50 mg Take 50 mg by 0 11/07/2019 Active tablet mouth at bedtime. spironolactone 25 mg Take 25 mg by 0 11/13/2019 Active tablet mouth daily. atorvastatin 20 mg Take 20 mg by 0 10/18/2019 Active tablet mouth daily. HYDROcodone-acetamino Take 1 tablet by 0 11/27/2019 Active phen 7.5-325 mg per mouth 3 (three) tablet times daily as needed. levothyroxine 100 mcg Take 100 mcg by 0 10/14/2019 Active tablet mouth every morning. losartan 100 mg Take 100 mg by 0 10/04/2019 Active tablet mouth daily. QUEtiapine 100 mg Take 100 mg by 0 11/25/2019 Active tablet mouth at bedtime. venlafaxine XR 75 mg Take 75 mg by 0 10/29/2019 Active 24 hr capsule mouth every evening. acetaminophen-codeine Take 2 tablets by 40 tablet 0 12/11/2019 Active (TYLENOL-CODEINE #3) mouth every 4 300-30 mg (four) hours as tabletIndications: needed for Pain Status post total (scale 4-6) or left knee replacement Pain (scale 7-10) (Maximum 10 tablets a day). rivaroxaban (XARELTO) Take 1 tablet by 10 tablet 0 12/11/2019 12/21/2019 Active tabletIndications: mouth daily for 10 knee replacement deep days. Indications: vein thrombosis deep vein prevention thrombosis prevention in knee replacement documented as of this encounter (statuses as of 12/16/2019) Active Problems Problem Noted Date Primary osteoarthritis of left knee 12/05/2019 Overview: Added automatically from request for michela jose daniel [id number] Total knee replacement status 01/07/2019 Primary osteoarthritis of right knee 01/02/2019 Overview: Added automatically from request for michela sky [id number] Hypoxia 04/11/2018 Morbid obesity with body mass index of 40.0-49.9 04/11 Knee pain, left 01/18/2016 Right knee pain 08/04/2015 documented as of this encounter (statuses as of 12/16/2019) Immunizations Name Administration Dates Next Due Pneumococcal [...] Treatment Date Type Specialty Care Team Description 12/17/2019 Office Visit Orthopedic Surgery Reuben Bansal, WILLIAM [address] [place], [place] [phone] 12/24/2019 Office Visit Orthopedic Surgery Reuben Bansal PAC [address] [place], [place] [phone] Health Maintenance Due Date Last Done Comments [...] of this encounter Implants Implanted Type Area Communications Professor Device Shelf Model / Identifier Expiration Serial / Date Lot Bone Cement Palacos R Radiopaque Ayaan #[id number] - [id number] CEMENT Right: Ayaan 08/23/2019 [id number] / Implanted: Qty: 1 on 01/07/2019 by Sedrick Kendall MD at [facility] Knee 8 [id number] / [id number] Cement Simplex #6194-1-001 - Sn/A CEMENT Left: [place] 01/20/2021 6194-1-001 / Implanted: Qty: 1 on 12/09/2019 by Sedrick Kendall MD at [facility] Knee N /A / [id number] Bearing Tibial 10 X 63/67 Mm #[id number] - [id number] KNEE Right: Bio met 08/24/2023 [id number] / Implanted: Qty: 1 on 01/07/2019 by Sedrick Kendall MD at [facility] Knee 9 [id number] / [id number] Patella 8 X 31mm Biomet#478005 - [id number] KNEE Right: Biomet 08/29/2023 [id number] / Implanted: Qty: 1 on 01/07/2019 by Sedrick Kendall MD at [facility] Knee 1 [id number] / [id number] Cr Femoral Right KNEE Right: Biomet 01/21/2028 18 3042 / Implanted: Qty: 1 on 01/07/2019 by Sedrick Kendall MD at [facility] Knee 1 [id number] / [id number] Component Patella 32mm Vera 8mm Biomet #356659 - [id number] Other Le ft: Biomet 11/11/2024 [id number] / Implanted: Qty: 1 on 12/09/2019 by Sedrick Kendall MD at [facility] Implant Knee 1 56306 / [id number] Adc Plate Tibial Cruciate 67 Mm - [id number] PLATE Right: Biomet 05/03/2028 074778 / Implanted: Qty: 1 on 01/07/2019 by Sedrick Kendall MD at [facility] Knee J [id number] / [id number] Screw Acetabular 6.5mm Vera 30mml Cancellous Ayaan #813116 - [id number] Left: Biomet 09/02/2029 123461 / Implanted: Qty: 4 on 12/09/2019 by Sedrick Kendall MD at [facility] Knee 1 [id number] / [id number] Component Tibial Tray Cementless 67mml Biomet #479915 - [id number] Left: Biomet 03/20/2024 [id number] / Implanted: Qty: 1 on 12/09/2019 by Sedrick Kendall MD at [facility] Knee 1 74533 / [id number] Bearing Tibial 10 X 63/67 Mm #793801 - [id number] Left: Bio met 07/01/2024 038192 / Implanted: Qty: 1 on 12/09/2019 by Sedrick Kendall MD at [facility] Knee 1 95634 / [id number] Adc Femur 57.5 Mm Left - [id number] Left: Biomet 02/11/2029 744074 / Implanted: Qty: 1 on 12/09/2019 by Sedrick Kendall MD at [facility] Knee 1 75083 / [id number] Stem Finned Primary 40mm Biomet #674188 - [id number] Left: Biomet 11/19/2029 911475 / Implanted: Qty: 1 on 12/09/2019 by Sedrick Kendall MD at [facility] Knee 1 [id number] / [id number] documented as of this encounter Results Not on filedocumented in this encounter Insurance Payer Benefit Plan / Subscriber ID Effective Phone Address T ype Group Dates [email or web address] [id number] 2018-Prese Medic are Adv MEDICARE NON MEDICARE NON nt PPO CONTRACTED CONTRACTED [facility] [id number] 2018-Prese Medicare Adv PLUS PLUS nt HMO CLASSIC/VALUE documented as of this encounter
--- OUTSIDE RECORDS SUMMARY | 2020-03-03 19:56 | XMS REPORT | Summary of Care ---
:1960 Author Organization [facility] Address [address] [place] [address] Care Team Providers Name Role Phone Rey Farris Primary Care Provider Encounter Details Date Type Department Care Team Description 12/09/2019 Orders Only [facility] Doctor Unassigned, [address] [facility] [place] [address] [address] [place] [id number] Allergies Active Allergy Reactions Severity Noted Date Comments Bupropion Hcl Itching 04/06/2016 Latex, Natural Rubber Itching Medium 01/08/2019 Ketorolac Tromethamine Anaphylaxis 08/04/2015 Bupropion Unknown - See comments 08/04/2015 Zolpidem Unknown - See comments 04/06/2016 Sleep walk documented as of this encounter (statuses as of 12/13/2019) Medications Medication Sig Dispensed Refills Start Date [...] as of this encounter (statuses as of 12/13/2019) Active Problems Problem Noted Date Primary osteoarthritis of left knee 12/05/2019 Overview: Added automatically from request for michela jose daniel [id number] Total knee replacement status 01/07/2019 Primary osteoarthritis of right knee 01/02/2019 Overview: Added automatically from request for michela jose daniel [id number] Hypoxia 04/11/2018 Morbid obesity with body mass index of 40.0-49.9 04/11 Knee pain, left 01/18/2016 Right knee pain 08/04/2015 documented as of this encounter (statuses as of 12/13/2019) Immunizations Name Administration Dates Next Due Pneumococcal [...] Office Visit Orthopedic Surgery Reuben Bansal, PAC [address] [place] [phone] Health Maintenance Due Date Last Done [...] of this encounter Implants Implanted Type Area Delivery Tech Device Shelf Model / Identifier Expiration Serial / Date Lot Bone Cement Palacos R [place] Ayaan #[id number] - [id number] CEMENT Right: Ayaan 08/23/2019 [id number] / Implanted: Qty: 1 on 01/07/2019 by Sedrick Kendall MD at [facility] Knee 8 [id number] / [id number] Cement Simplex Hv #6194-1-001 - Sn/A CEMENT Left: [place] 01/20/2021 6194-1-001 / Implanted: Qty: 1 on 12/09/2019 by Sedrick Kendall MD at [facility] Knee N /A / [id number] Bearing Tibial 10 X 63/67 Mm #987205 - [id number] KNEE Right: Bio met 08/24/2023 262624 / Implanted: Qty: 1 on 01/07/2019 by Sedrick Kendall MD at [facility] Knee 9 90232 / [id number] Patella 8 X 31mm Biomet#894741 - [id number] KNEE Right: Biomet 08/29/2023 [id number] / Implanted: Qty: 1 on 01/07/2019 by Sedrick Kendall MD at [facility] Knee 1 [id number] / [id number] Cr Femoral Right KNEE Right: Biomet 01/21/2028 18 3042 / Implanted: Qty: 1 on 01/07/2019 by Sedrick Kendall MD at [facility] Knee 1 [id number] / [id number] Component Patella 32mm Vera 8mm Biomet #996068 - [id number] Other Le ft: Biomet 11/11/2024 935283 / Implanted: Qty: 1 on 12/09/2019 by Sedrick Kendall MD at [facility] Implant Knee 1 57534 / [id number] Adc Plate Tibial Cruciate 67 Mm - [id number] PLATE Right: Biomet 05/03/2028 998930 / Implanted: Qty: 1 on 01/07/2019 by Sedrick Kendall MD at [facility] Knee J [id number] / [id number] Screw Acetabular 6.5mm Vera 30mml Cancellous Ayaan #043294 - [id number] Left: Biomet 09/02/2029 [id number] / Implanted: Qty: 4 on 12/09/2019 by Sedrick Kendall MD at [facility] Knee 1 30827 / [id number] Component Tibial Tray Cementless 67mml Biomet #712822 - [id number] Left: Biomet 03/20/2024 016273 / Implanted: Qty: 1 on 12/09/2019 by Sedrick Kendall MD at [facility] Knee 1 [id number] / [id number] Bearing Tibial 10 X 63/67 Mm #902377 - [id number] Left: Bio met 07/01/2024 401269 / Implanted: Qty: 1 on 12/09/2019 by Sedrick Kendall MD at [facility] Knee 1 07168 / [id number] Adc Femur 57.5 Mm Left - [id number] Left: Biomet 02/11/2029 985591 / Implanted: Qty: 1 on 12/09/2019 by Sedrick Kendall MD at [facility] Knee 1 65763 / [id number] Stem Finned Primary 40mm Biomet #058642 - [id number] Left: Biomet 11/19/2029 877519 / Implanted: Qty: 1 on 12/09/2019 by Sedrick Kendall MD at [facility] Knee 1 91621 / [id number] documented as of this encounter Procedures Procedure Name Priority Date/Time Associated Diagnosis Comme nts HOSPITAL ADMISSION Routine 12/09/2019 12:01 AM [facility] documented in this encounter Results Not on filedocumented in this encounter Insurance Payer Benefit Plan / Subscriber ID Effective Phone Address T ype Group Dates [facility] [id number] 2018-Prese Medic are Adv MEDICARE NON MEDICARE NON nt PPO [facility]ED [facility] [id number] 2018-Prese Medicare Adv PLUS PLUS nt HMO CLASSIC/VALUE documented as of this encounter
--- OUTSIDE RECORDS SUMMARY | 2020-03-03 19:56 | XMS REPORT | Summary of Care ---
:1960 Author Organization [facility] Address [address] [place] [id number] Care Team Providers Name Role Phone Rey Farris Primary Care Provider Reason for Referral (Routine) Status Reason Specialty Diagnoses / Referred By Referred To Procedures Contact Contact New Request ORT-ORTHOPAEDIC Diagnoses Status post total left knee replacement Reuben Bansal, SURGERY Procedures Discharge Follow-Up: Specialty Service ORT-ORTHOPAEDIC SURGERY; Other - See Comment (2 weeks postop) PAC [address] [place] [address] Radiology Services (Routine) Status Reason Specialty Diagnoses / Referred By Referred To Procedures Contact Contact New Request Diagnostic Diagnoses Primary osteoarthritis of left knee [place], Radiology Procedures X-ray knee less than 3 views left Sedrick Moon MD [address] [place] [address] Reason for Visit Auth/Cert Status Reason Specialty Diagnoses / Procedures Referred By Mo stephenson To Contact Contact Surgery Diagnoses Unilateral primary osteoarthritis, left knee Primary osteoarthritis of left knee [M17.12] Adc Pre/P acu/Post Procedures [place] TOTAL KNEE ARTHROPLASTY TOTAL KNEE ARTHROPLASTY [id number] - [place] TOTAL KNEE ARTHROPLASTY [address] [place] [address] Dr [place], [place] [address] Fax: Encounter Details Date Type Department Care Team Description 12/09/2019 - Hospital Encounter ADC Medicine [place], Primary o steoarthritis 12/12/2019 Surgery Unit Sedrick Moon MD of left knee [address] [place] [address] [place] [address] [address] [phone] [place] [address] Allergies Active Allergy Reactions Severity Noted [...] PM) 120 mg 24 hr mouth at capsule bedtime. BREO ELLIPTA 100-25 Inhale 1 Puff as 0 03/25/2016 Active mcg/dose DsDv needed. metFORMIN 500 mg Take 500 mg by 0 Active tablet mouth 2 (two) times daily with meals. rOPINIRole 2 mg Take 2 mg by 0 A ctive tablet mouth at bedtime. venlafaxine XR 150 Take 150 mg by 0 Active mg 24 hr capsule mouth daily with breakfast. clonazePAM 0.5 mg Take 0.5 mg by 0 Active tabletIndications: mouth at 1/2tab bedtime. pantoprazole 40 mg Take 40 mg by 0 Active EC tablet mouth daily. amitriptyline 75 mg Take [...] by 0 10/18/2019 Active tablet mouth daily. HYDROcodone-acetamin Take 1 tablet by 0 11/27/2019 Active ophen 7.5-325 mg per mouth 3 (three) tablet times daily as needed. levothyroxine 100 Take 100 mcg by 0 10/14/2019 Active mcg tablet mouth every morning. losartan 100 mg Take 100 mg by 0 10/04/2019 Active tablet mouth daily. QUEtiapine 100 mg Take 100 mg by 0 11/25/2019 Active tablet mouth at bedtime. venlafaxine XR 75 mg Take 75 mg by 0 10/29/2019 Active 24 hr capsule mouth every evening. acetaminophen-codein Take 2 tablets 40 tablet 0 12/11/2019 Active e (TYLENOL-CODEINE by mouth every 4 #3) 300-30 mg (four) hours as tabletIndications: needed for Pain Status post total (scale 4-6) or left knee Pain (scale replacement 7-10) (Maximum 10 tablets a day). rivaroxaban Take 1 tablet by 10 tablet 0 12/11/2019 12/21/19 Active (XARELTO) mouth daily for 20 tabletIndications: 10 days. knee replacement Indications: deep vein thrombosis deep vein prevention thrombosis prevention in knee replacement losartan (COZAAR) 50 100 mg daily. 0 07/14/201511/23 Discontinued mg tablet 20 HYDROcodone-acetamin Take 1 tablet by 0 Discontinued ophen (NORCO) 10-325 mouth every 6 20 mg tablet (six) hours as needed. atorvastatin 80 mg Take 80 mg by 0 0 Discontinued tablet mouth. 20 Levothyroxine 100 Take 100 mcg by 0 Discontinued mcg capsule mouth. 20 QUEtiapine 200 mg Take 200 mg by 0 0 Discontinued tablet mouth at 20 bedtime. venlafaxine XR 37.5 Take 37.5 mg by 0 11/23 02/09 Discontinued mg 24 hr capsule mouth daily with 20 breakfast. cyclobenzaprine 5 mg Take 1 tablet by 15 tablet 0 05/05/2019 0 12/06/19 Discontinued tabletIndications: mouth 3 (three) 20 Intractable times daily. headache, unspecified chronicity pattern, unspecified headache type cyclobenzaprine 5 mg Take 1 tablet by 9 tablet 0 05/05/2019 0 12/06/19 Discontinued tabletIndications: mouth 3 (three) 20 Intractable times daily. headache, unspecified chronicity pattern, unspecified headache type documented as of this encounter (statuses as of 12/12/2019) Active Problems Problem Noted Date Primary osteoarthritis of left knee 12/05/2019 Overview: Added automatically from request for michela jose daniel [id number] Total knee replacement status 01/07/2019 Primary osteoarthritis of right knee 01/02/2019 Overview: Added automatically from request for michela jose daniel [id number] Hypoxia 04/11/2018 Morbid obesity with body mass [...] Sign Reading Time Taken Comments Blood Pressure 123/58 12/12/2019 11:00 AM [facility] Pulse 67 12/12/2019 11:00 AM [facility] SEISMO[facility] Temperature 36.9 C (98.4 F) 12/12/2019 11:00 AM [facility] SEISMOGRAPH Respiratory Rate 18 12/12/2019 11:00 AM [facility]TER SEISMOGRAPH Oxygen Saturation 94% 12/12/2019 11:00 AM [facility] SEISMO[facility]APH Inhaled Oxygen Concentration - - Weight 112.5 kg (248 lb) 12/06/2019 11:00 AM [facility] SEISMO[facility] Height 157.5 cm (5' 2") 12/06/2019 11:00 AM [facility] SEISMO[facility] Body Mass Index 45.36 12/06/2019 11:00 AM [facility] SEISMO[facility]APH documented in this encounter Discharge Instructions Yessenia Hussein - 12/10/2019 8:58 AM CSTPlease schedule a 1-[address] Farris when you are discharged from the hospital. Dr Farris [address] [place] [address] [address] [facility] [phone] [facility]APH Additional InstructionsRamona Loza RN - 12/12/2019 Patient Discharge Instructions Discharge date: 12/12/2019 Procedure(s): Procedure(s): TOTAL KNEE ARTHROPLASTY Discharge Orders Nursing Other - Order Comments: Make sure that the drain was pulled yesterday Change postoperative dressing to a aqua cell dressing instructed patient to leave intact until follow-up in the office in 2 weeks Cardiac (2 g Na, Low Fat/Chol) 1800 Calorie Diabetic Consistent Carbs Diet - includes HS Snack; Texture: Regular Texture Regular Diabetic: IDDM Discharge Condition - Discharge Condition: FAIR Discharge Activity Discharge Activity: Amb with Walker/Crutches-Wt Bearing as Tolerated VTE Propylaxis- Was ordered during hospitalization Discharge Follow-Up: Specialty Service ORT-ORTHOPAEDIC SURGERY; Other - See Comment (2 weeks postop) Specialty: ORT-ORTHOPAEDIC SURGERY [26] Patient's Preferred Location: [facility] Discharge Disposition: Home Health not related to Admit, (ARS) When (Patients with risk for unplanned readmission score over 16 or those noted as Hospital Dependent should follow up within 7 days with PCP or primary DX specialist): Other - See Comment 2 weeks postop Risk of Unplanned Readmission:( Score greater than 16 indicates high risk) 10 Home Health Order Order Comments: I certify that Eliza Puentes Ronilenny is under my care and that I, or a nurse practitioner or physician's orthotic assistant working with me, had a lxqb-oh-iecz encounter with this patient on: 12/09/2019. The encounter with Eliza Puentes Zay was in whole or in part, for the following medical condition(s), which is the primary reason for home health care: Left total knee arthoplasty I am ordering and certify that based on my findings the following services are medically necessary home health services: Evaluation and Treatment, Home Safety Eval and Physical Therapy Eval & Treatment Residential Services: Medication Management and Teaching PCP follow up: Reji Farris Call lab results to: My clinical findings support the need for the services listed above because: limited mobility and ROM Further, I certify that my clinical findings support that this patient is homebound (i.e. absences from home require considerable and taxing effort and are for medical reasons or bahai services or infrequently or of short duration when for other reasons) because: Requires assistance of supported de vices to leave the home I understand and acknowledge that this is not a valid order until it is authenticated by a medical provider who has authority within their Scope of Practice to do so. I am inputting this information in my capacity as a scribe. Josh Swanson RN DMEPOS Order Order Comments: Eliza Collazo [id number]- Estimated VERO: 99 Date of Qstn-tg-Lxrv Needs Assessment: 12/09/19 I certify that this patient is under my care and that I, or a nurse practitioner, a certified nurse specialist, or a physician's orthotic assistant working with me, had a pqph-st-uxvv encounter that meets the physician mcep-lf-zoba encounter requirement with this patient on the above given date. Diagnosis and Medical Necessity of Requested Service: Left total knee arthoplasty Ambulatory Aids: Walker (Folder w/Wheels) Please Attach the Following (as applicable): Patient Demographics Sheet I understand and acknowledge that this is not a valid order until it is authenticated by a medical provider who has authority within their Scope of Practice to do so. I am inputting this information in my capacity as a scribe. Josh Swanson RN DMEPOS Order Order Comments: Eliza Collazo [id number] Estimated VERO: 99 Date of Fdby-fr-Kqbt Needs Assessment: 12/11/19 I certify that this patient is under my care and that I, or a nurse practitioner, a certified nurse specialist, or a physician's orthotic assistant working with me, had a khfa-uu-kjcl encounter that meets the physician pobn-mc-wuck encounter requirement with this patient on the above given date. Diagnosis and Medical Necessity of Requested Service: Left total knee arthoplasty 3in1 bedside commode Please Attach the Following (as applicable): Patient Demographics Sheet I understand and acknowledge that this is not a valid order until it is authenticated by a medical provider who has authority within their Scope of Practice to do so. I am inputting this information in my capacity as a scribe. Josh Swanson RN Take Home Medications These are medications ordered for you by your healthcare provider. Do not take any other medications or supplements unless advised by your healthcare provider. Current Discharge Medication List START taking these medications Details acetaminophen-codeine (TYLENOL-CODEINE #3) 300-30 mg tablet Take 2 tablets by mouth every 4 (four) hours as needed for Pain (scale 4-6) or Pain (scale 7-10) (Maximum 10 tablets a day). Qty: 40 tablet, Refills: 0 Associated Diagnoses: Status post total left knee replacement rivaroxaban (XARELTO) tablet Take 1 tablet by mouth daily for 10 days. Indications: deep vein thrombosis prevention in knee replacement Qty: 10 tablet, Refills: 0 Associated Diagnoses: Status post total left knee replacement CONTINUE these medications which have NOT CHANGED Details atorvastatin 20 mg tablet Take 20 mg by mouth daily. HYDROcodone-acetaminophen 7.5-325 mg per tablet Take 1 tablet by mouth 3 (three) times daily as needed. levothyroxine 100 mcg tablet Take 100 mcg by mouth every morning. losartan 100 mg tablet Take 100 mg by mouth daily. methocarbamol 750 mg tablet Take 750 mg by mouth daily. QUEtiapine 100 mg tablet Take 100 mg by mouth at bedtime. SERTraline 50 mg tablet Take 50 mg by mouth at bedtime. spironolactone 25 mg tablet Take 25 mg by mouth daily. !! venlafaxine XR 75 mg 24 hr capsule Take 75 mg by mouth every evening. amitriptyline 75 mg tablet Take 75 mg by mouth at bedtime. pantoprazole 40 mg EC tablet Take 40 mg by mouth daily. clonazePAM 0.5 mg tablet Take 0.5 mg by mouth at bedtime. !! venlafaxine XR 150 mg 24 hr capsule Take 150 mg by mouth daily with breakfast. metFORMIN 500 mg tablet Take 500 mg by mouth 2 (two) times daily with meals. rOPINIRole 2 mg tablet Take 2 mg by mouth at bedtime. BREO ELLIPTA 100-25 mcg/dose DsDv Inhale 1 Puff as needed. verapamil (VERELAN PM) 120 mg 24 hr capsule Take 120 mg by mouth at bedtime. !! - Potential duplicate medications found. Please discuss with provider. If you receive the patient satisfaction survey by mail please complete and return and let us know how we are doing. TOBACCO AVOIDANCE Exposure to tobacco either from smoking or from second hand (environmental) smoke or smokeless tobacco (snuff) is damaging to your health. This information is to encourage everyone to avoid tobacco exposure. It is recommended that you: ? If you smoke or use smokeless tobacco, we encourage you to quit. ? If you have already quit smoking, continue your good work! ? If you do not smoke or use smokeless tobacco, do not start. ? Avoid secondhand smoke. Additional Resources You may want to contact these organizations for further information on smoking and how to quit. [place] Lung Association, http://www.lungusa.org/stop-smoking/ [place] Cancer Society, http://www.cancer.org/Healthy/StayAwayfromTobacco/index [place] Heart Association, http://www.heart.org/HEARTORG/GettingHealthy/QuitSmoking/Quit-Smoking_[facility] _001085_SubHomePage.jsp AttachmentsThe following attachments cannot be sent through Care Everywhere.Knee Arthritis and Fixed Knee Replacement - VIDEO ([place]adian)Knee Replacement, After: Keeping Your Knee Healthy (Chadian)Knee Replacement, After: The First Month ([place])Knee Replacement, Total ([place]adian)Knee Replacement,After: Back at Home ([place])Knee Replacement,After: Controlling Swelling ([place])Acetaminophen; Codeine tablets ([place])Rivaroxaban oral tablets ([place])documented in this encounter Progress Notes Reuben Bansal, PAC - 12/11/2019 5:25 PM CST Orthopedic Surgery Post Operative Note Date of Service: 12/11/2019 Procedure: Patient Active Problem List Diagnosis Right knee pain Knee pain, left Hypoxia Morbid obesity with body mass index of 40.0-49.9 Primary osteoarthritis of right knee Total knee replacement status Primary osteoarthritis of left knee Post-operative Day: 2 Patient is experiencing moderate pain. Her pain came down from 10 over 10 yesterday to 8/10 today she is gradually improving this knee hurt much more than the last total knee she had performed Patient is up and in chair. She has been up and made it out of the bedroom to the hallway but has not yet made around the hallway this is improved from yesterday but still not adequate to get to her home Range of motion is improving. Vitals: BP 126/68 | Pulse 79 | Temp 36.6 C (97.9 F) (Oral) | Resp 18 | Ht 1.575 m (5' 2") | Wt 112.5 kg (248 lb) | SpO2 96% | BMI 45.36 kg/m Wound status: clean, dry and intact Neovascular status: neurovascularly intact Labs: CBC BMP PT/INR WBC (10*3/L) Date Value 12/10/2019 11.65 (H) NA (mmol/L) Date Value 12/10/2019 139 No results found for: PT RBC (10*6/L) Date Value 12/10/2019 4.15 K (mmol/L) Date Value 12/10/2019 3.9 No results found for: PTINR PLT (10*3/L) Date Value 12/10/2019 319 CALCIUM (mg/dL) Date Value 12/10/2019 9.3 HGB (g/dL) Date Value 12/10/2019 11.8 CL (mmol/L) Date Value 12/10/2019 101 aPTT HCT (%) Date Value 12/10/2019 37.6 BUN (mg/dL) Date Value 12/10/2019 11 No results found for: APTTPAT CREATININE (mg/dL) Date Value 12/10/2019 0.54 Assessment and Plan: Eliza Collazo is a 58 year old female with PMH as listed above, admitted to the hospital on 12/09/2019 with: Principal Problem: Primary osteoarthritis of left knee (12/05/2019) POA: Unknown Active Problems: Total knee replacement status (01/07/2019) POA: Yes Assessment: Status post total knee replacement with severe pain control issues and mobility issues this is improving and she should be fit to go home in the morning she also has a comorbid factors of diabetes insulin-dependent as well as hypertension Plan: She will be discharged home in the morning with home health physical therapy follow-up in the office 2 weeks postop. Samir Urbina MD - 12/11/2019 5:00 PM CST [facility] Hospitalist Progress Note SUBJECTIVE: No acute events overnight. CURRENT MEDICATIONS - reviewed. Current Facility-Administered Medications Medication Dose Route Frequency Last Rate Last Dose amitriptyline (ELAVIL) tablet 75 mg 75 mg Oral QHS 75 mg at 12/10/191951 atorvastatin (LIPITOR) tablet 20 mg 20 mg Oral DAILY 20 mg at 12/11/19930 clonazePAM (KLONOPIN) tablet 0.5 mg 0.5 mg Oral QHS 0.5 mg at 12/10/191951 diphenhydrAMINE (BENADRYL) tablet 50 mg 50 mg Oral Q6HPRN 50 mg at 12/11/191654 docusate (COLACE) capsule 100 mg 100 mg Oral Q12H 100 mg at 12/11/19 0931 enoxaparin (LOVENOX) injection 30 mg 30 mg Subcutaneous Q12HA2 30 mg at 12/11/19 0602 HYDROcodone-acetaminophen (NORCO 5) 5-325 mg tablet 1 tablet 1 tablet Oral Q6HPRN 1 tablet at12/10/19 0509 HYDROcodone-acetaminophen (NORCO) 10-325 mg tablet 1 tablet 1 tablet Oral Q4HPRN 1 tablet at 12/11/19 1655 lactated ringers IV infusion 1,000 mL 1,000 mL IV Infusion CONTINUOUS Stopped at 12/09/19 1202 levothyroxine (SYNTHROID) tablet 100 mcg 100 mcg Oral QAM-0600 100 mcg at 12/11/19 0602 losartan (COZAAR) tablet 100 mg 100 mg Oral DAILY 100 mg at 12/11/19 0931 methocarbamol (ROBAXIN) tablet 750 mg 750 mg Oral DAILY 750 mg at 12/11/19 0931 morpHINE 30 mg/30 mL (fixed dose) [employer] injection IV Infusion TITRATE 30 mg at 12/10/19 1140 naloxone (NARCAN) injection 0.4 mg 0.4 mg Slow IV Push SEE-INSTRUCTIONS ondansetron (ZOFRAN (PF)) injection 4 mg 4 mg Slow IV Push Q6HPRN pantoprazole (PROTONIX) EC tablet 40 mg 40 mg Oral DAILY 40 mg at 12/11/19 09 pramipexole (MIRAPEX) tablet 0.25 mg 0.25 mg Oral BID 0.25 mg at 12/11/19 09 SERTraline (ZOLOFT) tablet 50 mg 50 mg Oral QHS 50 mg at 12/10/19 195 Sliding Scale Insulin - Aspart (NOVOLOG) + Fsbg Testing Subcutaneous TID MEALS+HS Stopped at12/10/19 0800 spironolactone (ALDACTONE) tablet 25 mg 25 mg Oral DAILY 25 mg at 12/11/19 0942 venlafaxine XR (EFFEXOR XR) 24 hr capsule 150 mg 150 mg Oral QAM WITH BREAKFAST 150 mg at 12/11/1931 venlafaxine XR (EFFEXOR XR) 24 hr capsule 75 mg 75 mg Oral QPM 75 mg at 12/11/19 1655 verapamil SR (CALAN SR) ER tablet 120 mg 120 mg Oral DAILY 120 mg at 12/11/19 0931 PHYSICAL EXAM: BP (!) 171/91 | Pulse 72 | Temp 36.5 C (97.7 F) (Oral) | Resp 18 | Ht 5' 2" (1.575 m) | Wt 248 lb (112.5 kg) | SpO2 96% | BMI 45.36 kg/m Unable to examine as patient was not present in room LABS/IMAGING - reviewed, pertinent results as below: CBC BMP PT/INR WBC (10*3/L) Date Value 12/10/2019 11.65 (H) NA (mmol/L) Date Value 12/10/2019 139 No results found for: PT RBC (10*6/L) Date Value 12/10/2019 4.15 K (mmol/L) Date Value 12/10/2019 3.9 No results found for: PTINR PLT (10*3/L) Date Value 12/10/2019 319 CALCIUM (mg/dL) Date Value 12/10/2019 9.3 HGB (g/dL) Date Value 12/10/2019 11.8 CL (mmol/L) Date Value 12/10/2019 101 aPTT HCT (%) Date Value 12/10/2019 37.6 BUN (mg/dL) Date Value 12/10/2019 11 No results found for: APTTPAT CREATININE (mg/dL) Date Value 12/10/2019 0.54 IMAGING- Hospital Encounter on 12/09/19 X-ray knee less than 3 views left Narrative EXAM: XR KNEE <3 VW LEFT HISTORY: total knee Maintain knee immobilizer/brace/splint/cast COMPARISON: 11/14/2019. FINDINGS: Images of the left knee demonstrate interval changes of a total knee arthroplasty in satisfactory alignment and without hardware complication. No acute fracture or dislocation is identified. Surgical macy overlie the anterior knee. A partially visualized drainage catheter terminates in the infrapatellar region. Postsurgical changes in the form of soft tissue swelling and subcutaneous gas surrounding the knee joint. Impression Interval total knee arthroplasty without complication. No acute bony abnormality. Preliminary Report Dictated by Resident: Jackelin Perry I, Gina Canseco MD., have reviewed this study and agree with the above report. ASSESSMENT/PLAN Eliza Collazo is a 58 year old female with PMH as listed above, admitted to the hospital with: Status post total left knee arthroplasty by Dr. Calabrese on 12/09/2019 DVT prophylaxis, discharge planning, Ortho pain management will be done by Dr. Calabrese and his team Itching likely due to opioid effect, not a true allergy Benadryl prn Will monitor may benefit with Atarax scheduled SHANNAN Patient may use home CPAP as needed Tachycardia Verapamil 120 mg at bedtime HTN Losartan 100 mg daily HLD Atorvastatin 20 mg daily Hx hypothyroidism On levothyroxine DM type II Hgb A1c pending SSI, Accu-Cheks before meals and at bedtime Holding metformin 500 mg twice a day until discharge Depression/anxiety disorder Sertraline 50 mg at bedtime Venlafaxine 75 mg every bedtime Venlafaxine 150 mg every morning Clonazepam 0.5 mg at bedtime Amitriptyline 75 mg at bedtime Parasomnia Ropinirole 2 mg at bedtime Prophylaxis: DVT- enoxaparin Stress Ulcer: pantoprazole Samir Goode MD ristopher Reece PTA - 12/11/2019 2:35 PM [facility] Physical Therapy Progress Note: Recommendations: Primary discharge plan: home with 15/05 family supervision and home health PT Secondary discharge plan: outpatient PT Equipment recommendations: Rolling Walker PAIN: Continue to c/o left knee pain. Did not rate. PRECAUTIONS: Weight Bearing Precaution: WBAT General Precautions: Fall, Lines/Tubes IV . Bracing/Cast present or required:N/A S: Patient agreeable to working with PT. Less c/o pain this session. Reports she is tired and wants to nap. O: Patient met up in chair. Patient seen for the following: Transfers: Sit to stand: Mod I Stand to sit: Mod I Gait: Ambulated 100ft with RW, Mod I with cues for safety. Therapeutic exercise: instructed patient in the following: TKA protocol x 10 reps each Gait is steady this session. Estefania remained slow with short stride length. Patient took 2 standing rest breaks during gait. Patient agrees she feels ready to DC home. After session, patient Up in chair and call marks provided. A: Patient tolerated session fair. . P: PT will continue POC with emphasis on gait, transfers and functional mobility. Total Timed Tx Codes in Minutes: 41 Min Total Treatment Time in Minutes: 41 Min Cristopher Reece PTA [facility] [place] [id number] [facility] [phone] Gloria Yates PT supv Cristopher Diaz PTA - 12/11/2019 2:31 PM [facility] SEISMOGRAPH Physical Therapy Progress Note: Recommendations: Primary discharge plan: home with 24/7 family supervision and home health PT Secondary discharge plan: outpatient PT Equipment recommendations: Rolling Walker PAIN: Continue to c/o severe pain to left knee. PRECAUTIONS: Weight Bearing Precaution: WBAT General Precautions: Fall, Lines/Tubes IV . Bracing/Cast present or required:N/A S: Patient agreeable to working with PT. Patient c/o left knee pain up to 08/01. O: Patient met up in chair. Patient seen for the following: Transfers: Sit to stand: SBA with verbal cues for technique. Stand to sit: SBA with verbal cues for hand placement. Gait: Ambulated 60ft with RW, SBA with cues for safety. Therapeutic exercise: instructed patient in the following: TKA protocol x 10 reps each Mobility continues to improve. Still reports significant pain but able to distract her from pain with conversation. Gait continues to demonstrated slowed estefania with short stride length. Improved weight bearing. After session, patient Up in chair and call marks provided. A: Patient tolerated session fair. . P: PT will continue POC with emphasis on gait, transfers and functional mobility. Total Timed Tx Codes in Minutes: 43 Min Total Treatment Time in Minutes: 43 Min Cristopher Reece PTA [place] Lic [id number] [facility] [phone] Gloria Yates PT supv Cristopher Diaz PTA - 12/10/2019 2:05 PM [facility]RAFTER SEISMOGRAPH Physical Therapy Progress Note: Recommendations: Primary discharge plan: home with / family supervision and home health PT Secondary discharge plan: outpatient PT Equipment recommendations: Rolling Walker PAIN: Continue to c/o severe pain to left knee. PRECAUTIONS: Weight Bearing Precaution: WBAT General Precautions: Fall, Lines/Tubes IV . Bracing/Cast present or required:N/A S: Patient agreeable to working with PT. Patient c/o left knee pain up to 10/10. Increased pain with movement. Patient medicated for pain (PO) and used [employer]. O: Patient met up in chair. Patient seen for the following: Bed mobility: Sit to supine: CGA with LLE. Transfers: Sit to stand: CGA with verbal cues for technique. Stand to sit: CGA with verbal cues for hand placement. Gait: Ambulated 45ft with RW, CGA with cues for safety. Therapeutic exercise: instructed patient in the following: TKA protocol x 10 reps each Gait continues to be mildly unsteady with 1 balance check (self corrected). Estefania is slowed with less weight bearing than last session. Patient moans with pain on almost every step. Slight improvement with mobility but pain seems slightly worse. Patient reports she is unable to return home yet. After session, patient Up in chair and call marks provided. A: Patient tolerated session fair. . P: PT will continue POC with emphasis on gait, transfers and functional mobility. Total Timed Tx Codes in Minutes: 40 Min Total Treatment Time in Minutes: 40 Min Cristopher Reece PTA Franco Lic [id number] [facility] Rehab Services [facility] [phone] Gloria Yates PT supv Reuben Stark PAC - 12/10/2019 12:40 PM CST Orthopedic Surgery Post Operative Note Date of Service: 12/10/2019 Procedure: Patient Active Problem List Diagnosis Right knee pain Knee pain, left Hypoxia Morbid obesity with body mass index of 40.0-49.9 Primary osteoarthritis of right knee Total knee replacement status Primary osteoarthritis of left knee Post-operative Day: 1 Patient is experiencing severe pain. Patient states the pain is much more severe this time than herlast total knee replacement her pain level is 10 over 10. Patient is up and in chair. She made it to the bedside chair and even to the window but not has notmade it out of the room yet with physical therapy and has not yet proven the mobility needed to go home Range of motion is unchanged. Vitals: BP (!) 160/91 | Pulse 88 | Temp 37.1 C (98.7 F) | Resp 18 | Ht 1.575 m (5' 2") | Wt 112.5 kg (248 lb) | SpO2 98% | BMI 45.36 kg/m Wound status: clean, dry and intact Neovascular status: neurovascularly intact Labs: CBC BMP PT/INR WBC (10*3/L) Date Value 12/10/2019 11.65 (H) NA (mmol/L) Date Value 12/10/2019 139 No results found for: PT RBC (10*6/L) Date Value 12/10/2019 4.15 K (mmol/L) Date Value 12/10/2019 3.9 No results found for: PTINR PLT (10*3/L) Date Value 12/10/2019 319 CALCIUM (mg/dL) Date Value 12/10/2019 9.3 HGB (g/dL) Date Value 12/10/2019 11.8 CL (mmol/L) Date Value 12/10/2019 101 aPTT HCT (%) Date Value 12/10/2019 37.6 BUN (mg/dL) Date Value 12/10/2019 11 No results found for: APTTPAT CREATININE (mg/dL) Date Value 12/10/2019 0.54 Assessment and Plan: Eliza Collazo is a 58 year old female with PMH as listed above, admitted to the hospital on 12/09/2019 with: Principal Problem: Primary osteoarthritis of left knee (12/05/2019) POA: Unknown Active Problems: Total knee replacement status (01/07/2019) POA: Yes Assessment: Status post left total knee replacement postop day one She is having difficulty with pain control and mobility Plan: She should work with physical therapy this afternoon and see if they can get her more mobile also we will have her take the oral medication first on a regular basis and then supplemented with [employer]. Cristopher Diaz PTA - 12/10/2019 11:34 AM DRAFTER SEISMOGRAPH Physical Therapy Progress Note: Recommendations: Primary discharge plan: home with 15/05 family supervision and home health PT Secondary discharge plan: outpatient PT Equipment recommendations: Rolling Walker PAIN: Patient reports severe pain in bed. Does not rate. PRECAUTIONS: Weight Bearing Precaution: WBAT General Precautions: Fall, Lines/Tubes IV . Bracing/Cast present or required:N/A S: Patient agreeable to working with PT. Patient reports she is in severe pain. She feels this surgery was worse than last TKA. Reports she can't go home today due to severe pain. O: Patient met supine in bed with CPM on. Patient seen for the following: Bed mobility: - Supine to sit: Minimal assist Transfers: Sit to stand: Minimal assist using Rolling Walker Stand to sit: Minimal assist using Rolling Walker Static/dynamic standing balance: Fair+ Gait: Assisted patient with ambulation as follows: 20 feet using Rolling Walker and CGA Patient presenting with Step-to gait pattern. . Therapeutic exercise: instructed patient in the following: TKA protocol x 10 reps each Gait is mildly unsteady with very slow estefania. Required occasional cues for RW management, sequence and safety. Patient performs better when distracted with conversation. Patient indicated severe pain with gait. After session, patient Up in chair and call marks provided. A: Patient tolerated session fair. . P: PT will continue POC with emphasis on gait, transfers and functional mobility. Total Timed Tx Codes in Minutes: 42 Min Total Treatment Time in Minutes: 42 Min Cristopher Reece PTA Franco Lic [id number] [facility] Rehab Services [facility] [phone] Gloria Yates PT supv Caryl Lezama LB - 12/09/2019 1:33 PM CSTSubjective Patient ID: Eliza Collazo is a 58 year old female. Care Management Social Functional Assessment Patient Name: Eliza Collazo Age: [age] year old Sex: female Patient's Previous Admission Date at [facility]: 01/07/2019 Current diagnosis and co-morbidities: Primary osteoarthritis of left knee (M17.12) Readmission Questions: Was patient discharged from any acute care hospital within the last 30 days: No Social Functional Assessment: Primary language spoken/preferred: Chadian Mental Status: Alert & Oriented to Person,Place & Time Information given by: Self Patient's support system: Spouse Name and number of support system: César Collazo, Primary Chief Dog License Inspector: Self MPOA: No Living Arrangement: Home Address of living arrangement : [address] [place] [phone] Persons living in home: Self Barriers to returning home: None Baseline functional status- ambulation: Independent Functional status-baseline personal care: Independent Baseline functional status- driving: Independent Baseline functional status- grocery shopping: Independent Functional status-baseline housekeeping: Independent Functional status-baseline meal prep: Independent Current functional status same as prior: Yes Do you have a PCP?: Yes Name of PCP: Reji Farris [facility] Care Agency: No Provider Services: No DME Company: No Equipment: Walker Hemodialysis: No Community resources utilized: None Funding Resources: Medicare Replacement Medicare Replacement name and information: [facility] Prescription coverage plan: Medicare Part D Pharmacy where meds are filled: Other Other pharmacy[facility] Anticipated services prior to disharge: Continue Medical Eval Expected mode of discharge transportation: Same as support system Additional Recommendations for DC: Medical clearance and home health Additional info required for discharge planning: Pending medical evaluation Recommended discharge plan: Home with new Home Health SFA Complete: Social Functional Assessment complete: Yes Alcohol Use Screening (AUDIT-C) How often do you have a drink containing alcohol?: Never SCORE: 0 Did patient elect to have resources provided: No Role of Care Management explained. Any issues or concerns with obtaining/affording your medications at home: no. Are you or your support system able to pick up driver medications at discharge: yes. Review of Systems Objective Physical Exam Assessment/Plan Home with , will arrange for new home health with [facility] Staff Relief FIFI Crenshaw Continuity Person - Care Management [facility] [phone] [email or web address] Mancia PT - 12/09/2019 11:30 AM CST12/09/2019 11:30 AM CPM Initial Set-up S: Orders received. 12/09/2019 O: CPM adjusted for proper fit and padded for comfort. Set-up for L knee with ROM at 0-30 degrees. A: Patient tolerated ROM well P: Therapy will monitor CPM and will increase ROM of CPM while patient is in the hospital per MD orders as patient tolerates. PT will return for functional evaluation tomorrow. Thank you. Arelis Mancia PT Tx License: [id number] TER SEISMOGRAPH documented in this encounter Plan of Treatment Date Type Specialty Care Team Description 12/24/2019 Office Visit Orthopedic Surgery Reuben Bansal, PAC [address] [place], [place] [phone] Name Type Priority Associated Diagnoses Order S chedule CBC with Differential LAB Routine EVERY 24 HOURS (START TIME ADJUSTABLE ) for 1 Days starting 0 12/09/2019 until 0 BASIC METABOLIC PANEL (NA, LAB Routine E VERY 24 HOURS (START K, CL, CO2, GLUCOSE, BUN, TI ME ADJUSTABLE) for 1 CREATININE, CA) Days startin g 12/09/2019 until 0 CBC WITH DIFFERENTIAL LAB Routine Once f or 1 Occurrences starting 2019 until 0 Health Maintenance Due Date Last Done Comments [...] of this encounter Implants Implanted Type Area Privacy Compliance Manager Device Shelf Model / Identifier Expiration Serial / Date Lot Bone Cement [place] Ayaan #[id number] - [id number] CEMENT Right: Ayaan 08/23/2019 [id number] / Implanted: Qty: 1 on 01/07/2019 by [place] Kendall MD at [facility] Knee 8 [id number] / [id number] Cement Simplex Hv #[id number] - Sn/A CEMENT Left: Dixon 01/20/2021 [id number] / Implanted: Qty: 1 on 12/09/2019 by [place] Kendall MD at [facility] Knee N /A / [id number] Bearing Tibial 10 X 63/67 Mm #[id number] - [id number] KNEE Right: Bio met 08/24/2023 [id number] / Implanted: Qty: 1 on 01/07/2019 by [place] Kendall MD at [facility] Knee 9 [id number] / [id number] Patella 8 X 31mm Biomet#[id number] - [id number] KNEE Right: Biomet 08/29/2023 [id number] / Implanted: Qty: 1 on 01/07/2019 by Sedrick Kendall MD at [facility] Knee 1 [id number] / [id number] Femoral Right KNEE Right: Biomet 01/21/2028 [id number] / Implanted: Qty: 1 on 01/07/2019 by Sedrick Kendall MD at [facility] Knee 1 [id number] / [id number] Component Patella 32mm Vera 8mm Biomet #[id number] - [id number] Other Le ft: Biomet 11/11/2024 [id number] / Implanted: Qty: 1 on 12/09/2019 by Sedrick Kendall MD at [facility] Implant Knee 1 [id number] / [id number] Adc Plate Tibial Cruciate 67 Mm - [id number] PLATE Right: Biomet 05/03/2028 [id number] / Implanted: Qty: 1 on 01/07/2019 by Sedrick Kendall MD at [facility] Knee J [id number] / [id number] Screw Acetabular 6.5mm Vera 30mml Cancellous Ayaan #[id number] - [id number] Left: Biomet 09/02/2029 [id number] / Implanted: Qty: 4 on 12/09/2019 by Sedrick Kendall MD at [facility] Knee 1 [id number] / [id number] Component Tibial Tray Cementless 67mml Biomet #[id number] - [id number] Left: Biomet 03/20/2024 [id number] / Implanted: Qty: 1 on 12/09/2019 by Sedrick Kendall MD at [facility] Knee 1 [id number] / [id number] Bearing Tibial 10 X 63/67 Mm #[id number] - [id number] Left: Bio met 07/01/2024 [id number] / Implanted: Qty: 1 on 12/09/2019 by Sedrick Kendall MD at [facility] Knee 1 [id number] / [id number] Adc Femur 57.5 Mm Left - [id number] Left: Biomet 02/11/2029 [id number] / Implanted: Qty: 1 on 12/09/2019 by Sedrick Kendall MD at [facility] Knee 1 [id number] / [id number] Stem Finned Primary 40mm Biomet #[id number] - [id number] Left: Biomet 11/19/2029 [id number] / Implanted: Qty: 1 on 12/09/2019 by Sedrick Kendall MD at [facility] Knee 1 [id number] / [id number] documented as of this encounter Procedures Procedure Name Priority Date/Time Associated Diagnosis Comme nts POCT GLUCOSE Routine 12/12/2019 11:18 Results for (AUTOMATED) AM DRAFTER SEISMOGRAPH this procedure are in the results section. POCT GLUCOSE Routine 12/12/2019 7:36 Results for (AUTOMATED) AM DRAFTER SEISMOGRAPH this procedure are in the results section. POCT GLUCOSE Routine 12/11/2019 8:35 Results for (AUTOMATED) PM DRAFTER SEISMOGRAPH this procedure are in the results section. POCT GLUCOSE Routine 12/11/2019 3:29 Results for (AUTOMATED) PM DRAFTER SEISMOGRAPH this procedure are in the results section. POCT GLUCOSE Routine 12/11/2019 11:49 Results for (AUTOMATED) AM DRAFTER SEISMOGRAPH this procedure are in the results section. POCT GLUCOSE Routine 12/11/2019 7:37 Results for (AUTOMATED) AM DRAFTER SEISMOGRAPH this procedure are in the results section. POCT GLUCOSE Routine 12/10/2019 7:35 Results for (AUTOMATED) PM DRAFTER SEISMOGRAPH this procedure are in the results section. POCT GLUCOSE Routine 12/10/2019 4:04 Results for (AUTOMATED) PM DRAFTER SEISMOGRAPH this procedure are in the results section. POCT GLUCOSE Routine 12/10/2019 7:27 Results for (AUTOMATED) AM DRAFTER SEISMOGRAPH this procedure are in the results section. CBC WITH Routine 12/10/2019 5:03 Results for DIFFERENTIAL AM DRAFTER SEISMOGRAPH this procedure are in the results section. CBC WITH Routine 12/10/2019 5:03 Results for DIFFERENTIAL AM DRAFTER SEISMOGRAPH this procedure are in the results section. BASIC METABOLIC Routine 12/10/2019 5:03 Results for PANEL (NA, K, CL, AM DRAFTER SEISMOGRAPH this proce dure CO2, GLUCOSE, BUN, are in th e CREATININE, CA) results section. POCT GLUCOSE Routine 12/09/2019 7:34 Results for (AUTOMATED) PM DRAFTER SEISMOGRAPH this procedure are in the results section. POCT GLUCOSE Routine 12/09/2019 5:29 Results for (AUTOMATED) PM DRAFTER SEISMOGRAPH this procedure are in the results section. GLYCOSYLATED Routine 12/09/2019 3:54 Results for HEMOGLOBIN (A1C) PM DRAFTER SEISMOGRAPH this proced ure are in the results section. XR KNEE <3 VW LEFT Routine 12/09/2019 11:24 Primary Resul ts for AM DRAFTER SEISMOGRAPH osteoarthritis of this proce dure left knee are in the results section. TOTAL KNEE Level 4 (within 12/09/2019 8:00 Primary ARTHROPLASTY 0-5 days) AM DRAFTER SEISMOGRAPH osteoarthritis of left knee Special Needs BIOMET NOTIFIED 12/05/2019 ( sm HB ABO GROUPING Routine 12/09/2019 7:41 AM DRAFTER SEISMOGRAPH R esults for this procedure are in the resu lts section. POCT GLUCOSE(AGE >30DAYS) Routine 12/09/2019 7:38 AM DRAFTER SEISMOGRAPH Results for this procedure are in the resu lts section. documented in this encounter Results POCT GLUCOSE (AUTOMATED) (12/12/2019 11:18 AM DRAFTER SEISMOGRAPH) Pathologist Sig [facility] POCT GLU 136 (H) 70 - 110 mg/dL [facility] Specimen Blood Performing Organization Address [facility]ode Phone Number [facility] CLIA: [id number], [address] [place], [place] [address] POCT GLUCOSE (AUTOMATED) (12/12/2019 7:36 AM DRAFTER SEISMOGRAPH) Pathologist Sig [facility] POCT GLU 102 70 - 110 mg/dL [facility] Specimen Blood Performing Organization Address City/[facility]/Zipcode Phone Number [facility] CLIA: [id number], [address] [place], [place] [address] POCT GLUCOSE (AUTOMATED) (12/11/2019 8:35 PM DRAFTER SEISMOGRAPH) Pathologist Sig nature POCT GLU 111 (H) 70 - 110 mg/dL [facility] Specimen Blood Performing Organization Address [facility] Phone Number [facility] CLIA: [id number], [address] [place] [address] POCT GLUCOSE (AUTOMATED) (12/11/2019 3:29 PM DRAFTER SEISMOGRAPH) Pathologist Sig nature POCT GLU 120 (H) 70 - 110 mg/dL [facility] Specimen Blood Performing Organization Address [facility] Phone Number [facility] CLIA: [id number], [address] [place] [address] POCT GLUCOSE (AUTOMATED) (12/11/2019 11:49 AM DRAFTER SEISMOGRAPH) Pathologist Sig nature POCT GLU 122 (H) 70 - 110 mg/dL [facility] Specimen Blood Performing Organization Address [facility] Phone Number [facility] CLIA: [id number], [address] [place] [address] POCT GLUCOSE (AUTOMATED) (12/11/2019 7:37 AM DRAFTER SEISMOGRAPH) Pathologist Sig nature POCT GLU 96 70 - 110 mg/dL [facility] Specimen Blood Performing Organization Address [facility] Phone Number [facility] CLIA: [id number], [address] [place] [address] POCT GLUCOSE (AUTOMATED) (12/10/2019 7:35 PM DRAFTER SEISMOGRAPH) Pathologist Sig nature POCT GLU 134 (H) 70 - 110 mg/dL [facility] Specimen Blood Performing Organization Address [facility] Phone Number [facility] CLIA: [id number], [address] [place] [address] POCT GLUCOSE (AUTOMATED) (12/10/2019 4:04 PM DRAFTER SEISMOGRAPH) Pathologist Sig nature POCT GLU 126 (H) 70 - 110 mg/dL [facility] Specimen Blood Performing Organization Address [facility] Phone Number [facility] CLIA: [id number], [address] [place] [address] POCT GLUCOSE (AUTOMATED) (12/10/2019 7:27 AM DRAFTER SEISMOGRAPH) [facility] [place] [place] POCT GLU 110 70 - 110 mg/dL [facility] Specimen Blood Performing Organization Address City/State/Zipcode Phone Number [facility] CLIA: [id number], [address] [place] [address] CBC WITH DIFFERENTIAL (12/10/2019 5:03 AM DRAFTER SEISMOGRAPH) [facility] [place] [place] WBC 11.65 (H) 4.30 - 11.10 [facility] 10*3/L [facility] RBC 4.15 3.93 - 5.25 [facility] 10*6/L [facility] HGB 11.8 11.6 - 15.0 [facility] g/dL [facility] HCT 37.6 35.7 - 45.2 % [facility] MCV 90.6 80.6 - 95.5 fL [facility] MCH 28.4 25.9 - 32.8 pg [facility] MCHC 31.4 (L) 31.6 - 35.1 [facility] g/dL [facility] RDW-SD 41.1 39.0 - 49.9 fL [facility] RDW-CV 12.5 12.0 - 15.5 % [facility] PLT 319 166 - 358 [facility] 10*3/L [facility] MPV 9.9 9.5 - 12.9 fL [facility] NRBC/100 WBC 0.0 0.0 - 10.0 /100 [facility] WBCs [facility] NRBC x10^3 <0.01 10*3/L [facility] GRAN MAT (NEUT) % 76.5 % [facility] IMM GRAN % 0.60 % [facility] LYMPH % 14.5 % [facility] MONO % 8.3 % [facility] EOS % 0.0 % [facility] BASO % 0.1 % [facility] GRAN MAT x10^3(ANC) 8.91 (H) 1.88 - 7.09 [facility] 10*3/uL [facility] IMM GRAN x10^3 0.07 (H) 0.00 - 0.06 [facility] 10*3/uL [facility] LYMPH x10^3 1.69 1.32 - 3.29 [facility] 10*3/uL [facility] MONO x10^3 0.97 (H) 0.33 - 0.92 [facility] 10*3/uL [facility] EOS x10^3 <0.03 (L) 0.03 - 0.39 [facility] 10*3/uL [facility] BASO x10^3 <0.03 0.01 - 0.07 [facility] 10*3/uL [facility] Specimen Blood - ARM, LEFT Performing Organization Address City/State/Zipcode Phone Number [facility] CLIA: [id number], [address] [place], [place] [address] BASIC METABOLIC PANEL (NA, K, CL, CO2, GLUCOSE, BUN, CREATININE, CA) (12/10/2019 5:03 AM DRAFTER SEISMOGRAPH) Pathologist [facility] nature NA 139 135 - 145 [facility] mmol/L [facility] K 3.9 3.5 - 5.0 [facility] mmol/L [facility] CL 101 98 - 108 mmol/L [facility] CO2 TOTAL 29 23 - 31 mmol/L [facility] AGAP 9 2 - 16 [facility] BUN 11 7 - 23 mg/dL [facility] GLUCOSE 144 (H) 70 - 110 mg/dL [facility] CREATININE 0.54 0.50 - 1.04 [facility] mg/dL [facility] CALCIUM 9.3 8.6 - 10.6 [facility] mg/dL [facility] eGFR Calculation 115.6 mL/min/1.73m2 [facility] ([facility] Citizen Of [place]) eGFR Calculation 140.0 mL/min/1.73m2 [facility] () [facility] Specimen Blood - ARM, LEFT Narrative Performed At [facility] ([facility] and Staging of Kidney Disease* + + +- + | GFR (mL/min/1.73 m2) | With Kidney Damage | Without Kidney Damage + + +- + | >90 | Stage one | Normal + + +- + | 60-89 | Stage two | Decreased GFR + + +- + | 30-59 | Stage three | Stage three + + +- + | 15-29 | Stage four | Stage four + + +- + | <15 (or dialysis) | Stage five | Stage five + + +- + *Each stage assumes the associated GFR level has been in effect for at least three months. Stages 1 to 5, with or without kidney disease, indicate chronic kidney disease. Notes: Determination of stages one and two (with eGFR >59mL/min/1.73 m2) requires estimation of kidney damage for at least three months as defined by structural or functional abnormalities of the kidney, manifested by either: Pathological abnormalities or Markers of kidney damage (including abnormalities in the composition of the blood or urine or abnormalities in imaging tests). Performing Organization Address [facility] Phone Number [facility] CLIA: [id number], [address] [place] [address] POCT GLUCOSE (AUTOMATED) (12/09/2019 7:34 PM DRAFTER SEISMOGRAPH) Pathologist Sig nature POCT GLU 212 (H) 70 - 110 mg/dL [facility] Specimen Blood Performing Organization Address [facility] Phone Number [facility] CLIA: [id number], [address] [place] [address] POCT GLUCOSE (AUTOMATED) (12/09/2019 5:29 PM DRAFTER SEISMOGRAPH) Pathologist Sig nature POCT GLU 169 (H) 70 - 110 mg/dL [facility] Specimen Blood Performing Organization Address [facility] Phone Number [facility] CLIA: [id number], [address] [place] [address] GLYCOSYLATED HEMOGLOBIN (A1C) (12/09/2019 3:54 PM DRAFTER SEISMOGRAPH) Pathologist Sig nature HGB A1C 6.6 (H) 4.0 - 6.0 % [facility] Specimen Blood - ARM, RIGHT Narrative Performed At %A1C ([facility]) Interpretation (ADA) [facility] 4.8-5.6 Normal or (Non-Diabetic Ra nge) 5.7-6.4 Increased Risk (Pre-Diabet ic) >6.5 Diabetes Indicated Performing Organization Address [facility] Phone Number [facility] CLIA: [id number], [address] [place] [address] X-ray knee less than 3 views left (12/09/2019 11:24 AM DRAFTER SEISMOGRAPH) Specimen Impressions Performed At PACS/VR/DOSE Interval total knee arthroplasty without complication. No acute bony abnormality. Preliminary Report Dictated by Resident: Gina Frank MD., have reviewed this study an d agree with the above report. Narrative Performed At PACS/VR/DOSE EXAM: XR KNEE <3 VW LEFT HISTORY: total knee Maintain knee immobi lizer/brace/splint/cast COMPARISON: 11/14/2019. FINDINGS: Images of the left knee demonstrate inte rval changes of a total knee arthroplasty in satisfactory alignment and without clarissa dware complication. No acute fracture or dislocation is iden tified. Surgical macy overlie the anterior knee. A partially visualized drainage cat heter terminates in the infrapatellar region. Postsurgical changes in the form of soft tissue swelling and subcutaneous gas surroundin g the knee joint. Procedure Note [facility], Radiant Results Inft User - 2019 1:05 PM DRAFTER SEISMOGRAPH EXAM: XR KNEE <3 VW LEFT HISTORY: total knee Maintain knee immobi lizer/brace/splint/cast COMPARISON: 11/14/2019. FINDINGS: Images of the left knee demonstrate inte rval changes of a total knee arthroplasty in satisfactory alignment a nd without hardware complication. No acute fracture or dislocation is iden tified. Surgical macy overlie the anterior knee. A partially visualize d drainage catheter terminates in the infrapatellar region. Postsurgical c hanges in the form of soft tissue swelling and subcutaneous gas surroundin g the knee joint. IMPRESSION Interval total knee arthroplasty without complication. No acute bony abnormality. Preliminary Report Dictated by Resident: Gina Frank MD., have reviewed this study and agree with the above report. Performing Organization Address City/State/Zipcode Phone Number PACS/VR/DOSE Type and Screen - ONCE Routine (12/09/2019 7:41 AM DRAFTER SEISMOGRAPH) Pathologist Sig nature ABO & RH A Negative LAB Comment: Performed at [facility] Laboratory Services - [facility] Blood Bank [address] [place] [phone] Toll Free: [phone] CLIA No. [id number] IAT Negative LAB Comment: Performed at [facility] Laboratory Services - [facility] Blood Bank [address] [place], [place] [address] Toll Free: [phone] CLIA No. [id number] Specimen Blood - VENOUS Performing Organization Address City/State/Zipcode Phone Number BLD LAB POCT GLUCOSE(AGE >30DAYS) (12/09/2019 7:38 AM DRAFTER SEISMOGRAPH) [facility] Sig nature POCT Glu (age>30days) 134 (A) 70 - 110 mg/dL Specimen Blood - CAPILLARY documented in this encounter Visit Diagnoses Diagnosis Status post total left knee replacement - Primary Primary osteoarthritis of left knee Primary localized osteoarthrosis, lower leg documented in this encounter Administered Medications Medication Order MAR Action Action Date Dose Rate Site amitriptyline (ELAVIL) tablet 75 Given 12/11/2019 9:45 PM DRAFTER SEISMOGRAPH 7 5 mg mg 75 mg, Oral, QHS, First dose on Mon12/09/19 at 2100, Until Discontinued, Routine Given 12/10/2019 7:52 PM DRAFTER SEISMOGRAPH 75 mg Given 12/09/2019 8:42 PM DRAFTER SEISMOGRAPH 75 mg atorvastatin (LIPITOR) tablet 20 mg Given 12/12/2019 8:32 AM DRAFTER SEISMOGRAPH 20 mg 20 mg, Oral, DAILY, First dose on Mon12/10/19 at 0900, Until Discontinued, Routine Given 12/11/2019 9:31 AM DRAFTER SEISMOGRAPH 20 mg Given 12/10/2019 9:13 AM DRAFTER SEISMOGRAPH 20 mg clonazePAM (KLONOPIN) tablet 0.5 mg Given 12/11/2019 9:45 PM DRAFTER SEISMOGRAPH 0.5 mg 0.5 mg, Oral, QHS, First dose on Mon12/09/19 at 2100, Until Discontinued, Routine Given 12/10/2019 7:52 PM DRAFTER SEISMOGRAPH 0.5 mg Given 12/09/2019 8:42 PM DRAFTER SEISMOGRAPH 0.5 mg diphenhydrAMINE (BENADRYL) tablet 50 mg Given 12/12/2019 8:32 AM DRAFTER SEISMOGRAPH 50 mg 50 mg, Oral, Q6HPRN, Starting Mon12/09/19 at 1206, Until Discontinued, Routine, Itching Given 12/11/2019 4:55 PM DRAFTER SEISMOGRAPH 50 mg Given 12/10/2019 2:38 PM DRAFTER SEISMOGRAPH 50 mg docusate (COLACE) capsule 100 mg Given 12/12/2019 8:31 AM DRAFTER SEISMOGRAPH 100 mg 100 mg, Oral, Q12H, First dose on Mon12/09/19 at 2000, Until Discontinued, Routine Given 12/11/2019 9:45 PM DRAFTER SEISMOGRAPH 100 mg Given 12/11/2019 9:31 AM DRAFTER SEISMOGRAPH 100 mg enoxaparin (LOVENOX) injection 30 mg Given 12/12/2019 5:29 AM DRAFTER SEISMOGRAPH 30 mg Abdo men-SC 30 mg, Subcutaneous, Q12HA2, First dose on Mon12/10/19 at 0600, Until Discontinued, Routine Given 12/11/2019 6:19 PM DRAFTER SEISMOGRAPH 30 mg Abdo men Given 12/11/2019 6:02 AM DRAFTER SEISMOGRAPH 30 mg Abdo men-SC HYDROcodone-acetaminophen (NORCO 5) 5-325 Given 2019 5:09 AM DRAFTER SEISMOGRAPH 1 tablet mg tablet 1 tablet 1 tablet, Oral, Q6HPRN, Starting Mon12/09/19 at 0944, Until Discontinued, Routine, Pain (scale 4-6) HYDROcodone-acetaminophen (NORCO) 10-325 Given 12/12/2019 5 :32 AM DRAFTER SEISMOGRAPH 1 tablet mg tablet 1 tablet 1 tablet, Oral, Q4HPRN, Starting Mon12/09/19 at 0944, Until Discontinued, Routine, Pain (scale 7-10) Given 12/12/2019 1:55 AM DRAFTER SEISMOGRAPH 1 tablet Given 12/11/2019 9:45 PM DRAFTER SEISMOGRAPH 1 tablet lactated ringers IV infusion New Bag 12/09/2019 11:49 AM DRAFTER SEISMOGRAPH 1,000 mL 100 mL/hr 1,000 mL at 100 mL/hr, 1,000 mL, IV Infusion, CONTINUOUS, Starting Mon12/09/19 at 0900, Until Discontinued, Routine New Bag 12/09/2019 7:55 AM DRAFTER SEISMOGRAPH 1,000 mL 100 mL/hr levothyroxine (SYNTHROID) tablet 100 mcg Given 12/12/2019 5:30 AM DRAFTER SEISMOGRAPH 100 mcg 100 mcg, Oral, QAM-0600, First dose on Mon12/10/19 at 0600, Until Discontinued, Routine Given 12/11/2019 6:02 AM DRAFTER SEISMOGRAPH 100 mcg Given 12/10/2019 5:09 AM DRAFTER SEISMOGRAPH 100 mcg losartan (COZAAR) tablet 100 mg Given 12/12/2019 8:32 AM DRAFTER SEISMOGRAPH 100 mg 100 mg, Oral, DAILY, First dose on Mon12/10/19 at 0900, Until Discontinued, Routine Given 12/11/2019 9:31 AM DRAFTER SEISMOGRAPH 100 mg Given 12/10/2019 9:13 AM DRAFTER SEISMOGRAPH 100 mg methocarbamol (ROBAXIN) tablet 750 mg Given 12/12/2019 8:31 AM DRAFTER SEISMOGRAPH 750 mg 750 mg, Oral, DAILY, First dose on Mon12/10/19 at 0900, Until Discontinued, Routine Given 12/11/2019 9:31 AM DRAFTER SEISMOGRAPH 750 mg Given 12/10/2019 9:14 AM DRAFTER SEISMOGRAPH 750 mg pantoprazole (PROTONIX) EC tablet 40 mg Given 12/12/2019 8:31 AM DRAFTER SEISMOGRAPH 40 mg 40 mg, Oral, DAILY, First dose on Mon12/10/19 at 0900, Until Discontinued, Routine Given 12/11/2019 9:31 AM DRAFTER SEISMOGRAPH 40 mg Given 12/10/2019 9:14 AM DRAFTER SEISMOGRAPH 40 mg pramipexole (MIRAPEX) tablet 0.25 mg Given 12/12/2019 8:32 AM DRAFTER SEISMOGRAPH 0.25 mg 0.25 mg, Oral, BID, First dose on Mon12/09/19 at 2000, Until Discontinued, managing member approving Restricted medication: SORADC Given 12/11/2019 9:47 PM DRAFTER SEISMOGRAPH 0.25 mg Given 12/11/2019 9:42 AM DRAFTER SEISMOGRAPH 0.25 mg SERTraline (ZOLOFT) tablet 50 mg Given 12/11/2019 9:47 PM DRAFTER SEISMOGRAPH 50 mg 50 mg, Oral, QHS, First dose on Mon12/09/19 at 2100, Until Discontinued, Routine Given 12/10/2019 7:52 PM DRAFTER SEISMOGRAPH 50 mg Given 12/09/2019 8:42 PM DRAFTER SEISMOGRAPH 50 mg Sliding Scale Insulin - Aspart Given 12/09/2019 8:43 PM DRAFTER SEISMOGRAPH 2 U nits Abdomen-SC (NOVOLOG) + Fsbg Testing Subcutaneous, TID MEALS+HS, First dose on Mon12/09/19 at 1700, Until Discontinued, Routine spironolactone (ALDACTONE) tablet 25 mg Given 12/12/2019 8:32 AM DRAFTER SEISMOGRAPH 25 mg 25 mg, Oral, DAILY, First dose on Mon12/10/19 at 0900, Until Discontinued, Routine Given 12/11/2019 9:42 AM DRAFTER SEISMOGRAPH 25 mg Given 12/10/2019 9:13 AM DRAFTER SEISMOGRAPH 25 mg venlafaxine XR (EFFEXOR XR) 24 hr capsule Given 12/12/2019 8:32 AM DRAFTER SEISMOGRAPH 150 mg 150 mg 150 mg, Oral, QAM WITH BREAKFAST, First dose on Mon12/10/19 at 0800, Until Discontinued, Routine Given 12/11/2019 9:31 AM DRAFTER SEISMOGRAPH 150 mg Given 12/10/2019 9:13 AM DRAFTER SEISMOGRAPH 150 mg venlafaxine XR (EFFEXOR XR) 24 hr capsule 75 Given 4:55 PM DRAFTER SEISMOGRAPH 75 mg mg 75 mg, Oral, QPM, First dose on Mon12/09/19 at 1700, Until Discontinued, Routine Given 12/10/2019 5:24 PM DRAFTER SEISMOGRAPH 75 mg Given 12/09/2019 5:38 PM DRAFTER SEISMOGRAPH 75 mg verapamil SR (CALAN SR) ER tablet 120 mg Given 12/12/2019 8:32 AM DRAFTER SEISMOGRAPH 120 mg 120 mg, Oral, DAILY, First dose on Mon12/10/19 at 0900, Until Discontinued Given 12/11/2019 9:31 AM DRAFTER SEISMOGRAPH 120 mg Given 12/10/2019 9:14 AM DRAFTER SEISMOGRAPH 120 mg Medication Order MAR Action Action Date Dose Rate Site ceFAZolin (ANCEF) 1 g in NaCl 0.9% Given 12/10/2019 1:25 AM DRAFTER SEISMOGRAPH 1 g (NS) 50 mL MINI-BAG 1 g, IV Piggyback, Q8H ABX, 2 doses, First dose on Mon12/09/19 at 1600, Last dose on Mon12/10/19 at 0000, 50 mL, Reason for Anti-Infective: Surgical Prophylaxis, Surgical Prophylaxis: Orthopaedic, Duration of therapy: within 24 hours of surgery Given 12/09/2019 4:28 PM DRAFTER SEISMOGRAPH 1 g diphenhydrAMINE (BENADRYL) injection 25 mg Given 12/09/2019 11:00 AM DRAFTER SEISMOGRAPH 25 mg 25 mg, Slow IV Push, ONCE, 1 dose, Mon12/09/19 at 1130, Routine, PACU famotidine (PEPCID AC) tablet 20 mg Given 12/09/2019 12:31 PM DRAFTER SEISMOGRAPH 20 mg 20 mg, Oral, ONCE NOW, 1 dose, Mon12/09/19 at 1315, Routine gabapentin (NEURONTIN) capsule 300 mg Given 12/09/2019 7:54 AM DRAFTER SEISMOGRAPH 300 mg 300 mg, Oral, ONCE, 1 dose, Mon12/09/19 at 0730, Routine, DSU Pre-op lactated ringers IV infusion New Bag 12/10/2019 7:51 PM DRAFTER SEISMOGRAPH 1,000 mL 100 mL/hr 1,000 mL at 100 mL/hr, 1,000 mL, IV Infusion, CONTINUOUS, Starting Mon12/09/19 at 1030, Until Mon12/11/19 at 0706, Routine, PACU morpHINE 30 mg/30 mL (fixed dose) [employer] New Bag 12/10/2019 11:40 AM DRAFTER SEISMOGRAPH 30 mg injection New Bag 12/09/2019 11:56 AM DRAFTER SEISMOGRAPH 30 mg oxyCODONE-acetaminophen (PERCOCET) 5-325 Given 020 7:54 AM DRAFTER SEISMOGRAPH 2 tablets mg per tablet 2 tablet 2 tablet, Oral, ONCE, 1 dose, Mon12/09/19 at 0730, Routine, DSU Pre-op predniSONE (DELTASONE) tablet 40 mg Given 12/09/2019 12:31 PM DRAFTER SEISMOGRAPH 40 mg 40 mg, Oral, ONCE NOW, 1 dose, Mon12/09/19 at 1315, Routine documented in this encounter Insurance Payer Benefit Plan / Subscriber ID Effective Dates Phone Addre ss Type Group [facility] [id number] 2018-Presen Medicare Adv PLUS PLUS t HMO CLASSIC/[place] ) [place] [address] documented as of this encounter
--- OUTSIDE RECORDS SUMMARY | 2020-03-03 19:57 | XMS REPORT | Summary of Care ---
:1960 Author Organization [facility] Address [address] [place] [address] Care Team Providers Name Role Phone Rey Farris Primary Care Provider Reason for Visit Reason Comments Follow-up Wound Check s/p Left TKR DOS:12/09/2019/ Bandage Change (Routine) Status Reason Specialty Diagnoses / Referred By Referred To Procedures Contact Contact Authorized Orthopedic Surgery Diagnoses Presence of right artificial knee joint Reji Farris Craig Procedures CONSULT/REFERRAL ORTHOPAEDIC SURGERY [address] Moon MD [address] [place] [phone] Phone: Fax: Encounter Details Date Type Department Care Team Description 12/17/2019 Office Visit [facility] Orthopaedic Reuben Bansal S, S tatus post total knee Surgery- [place] PAC replacement, left [address], [address] (Primary Dx) [place] [address] [place], [place] [phone] Allergies Active Allergy Reactions Severity Noted Date Comments Bupropion Hcl Itching 04/06/2016 Latex, Natural Rubber Itching Medium 01/08/2019 Ketorolac Tromethamine Anaphylaxis 08/04/2015 Bupropion Unknown - See comments 08/04/2015 Zolpidem Unknown - See comments 04/06/2016 Sleep walk documented as of this encounter (statuses as of 12/17/2019) Medications Medication Sig Dispensed Refills Start Date [...] as of this encounter (statuses as of 12/17/2019) Active Problems Problem Noted Date Primary osteoarthritis of left knee 12/05/2019 Overview: Added automatically from request for michela sky [id number] Total knee replacement status 01/07/2019 Primary osteoarthritis of right knee 01/02/2019 Overview: Added automatically from request for michela sky [id number] Hypoxia 04/11/2018 Morbid obesity with body mass index of 40.0-49.9 04/11 Knee pain, left 01/18/2016 Right knee pain 08/04/2015 documented as of this encounter (statuses as of 12/17/2019) Immunizations Name Administration Dates Next Due Pneumococcal [...] Sign Reading Time Taken Comments Blood Pressure - - Pulse - - Temperature - - Respiratory Rate - - Oxygen Saturation - - Inhaled Oxygen Concentration - - Weight 112.5 kg (248 lb) 12/17/2019 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 For follow-up status post left total knee replacement on 12/09/2019 she has been having severe pain and difficulty sleeping she is not getting relief with Tylenol 3 her aqua cell dressing was coming loose and falling off so it was replaced with Tegaderm from [facility], She got a prescription for [place] from Dr. Brito and the pharmacy is not releasing it to her. Allergies Eliza is allergic to latex, natural rubber; bupropion hcl; toradol [ketorolac tromethamine]; wellbutrin [bupropion]; and zolpidem. Medications Outpatient Medications Prior to Visit Medication Sig Dispense Refill acetaminophen-codeine (TYLENOL-CODEINE #3) 300-30 mg tablet Take 2 tablets by mouth every 4 (four) hours as needed for Pain (scale 4-6) or Pain (scale 7- 10) (Maximum 10 tablets a day). 40 tablet 0 rivaroxaban (XARELTO) tablet Take 1 tablet by mouth daily for 10 days. Indications: deep vein thrombosis prevention in knee replacement 10 tablet 0 atorvastatin 20 mg tablet Take 20 mg [...] tablet Take 25 mg by mouth daily. venlafaxine XR 75 mg 24 hr capsule [...] Take 120 mg by mouth at bedtime. No facility-administered medications prior to visit. Histories [...] Right 01/07/2019 Surgeon: Sedrick Calabrese MD; [place] [facility] [place]ROP[place] Left 12/09/2019 Surgeon: Sedrick Calabrese MD; Location: [facility] Social History Socioeconomic History Marital status: Spouse [...] file Gets together: Not on file Attends zoroastrian service: Not on file Active member of [...] Psychiatric/Behavioral: Negative. Endocrine: Endocrine negative Vital Signs Ht 62" (157.5 cm) | Wt 112.5 kg (248 lb) | BMI 45.36 kg/m Physical Exam Musculoskeletal: Wound is well approximated there is no erythema edema or ecchymosis there is no drainage -6 extension to 92 flexion Assessment/Plan Diagnosis: 1. Status post total knee replacement, left Plan: Her dressings were reapplied with Xeroform 4 x 4's and transport tape She should keep these clean and dry and continue to work on her therapy we will follow-up in 2 weekspostop for staple removal. documented in this encounter Plan of Treatment Date Type Specialty Care Team Description 12/24/2019 Office Visit Orthopedic Surgery Reuben Bansal PAC [facility] [phone] Health Maintenance Due Date Last Done [...] of this encounter Implants Implanted Type Area Market Risk Analyst Device Shelf Model / Identifier Expiration Serial / Date Lot Bone Cement Palacos R Radiopaque Ayaan #[id number] - [id number] CEMENT Right: Ayaan 08/23/2019 [id number] / Implanted: Qty: 1 on 01/07/2019 by Sedrick Kendall MD at [facility] Knee 8 [id number] / [id number] Cement Simplex Hv #6194-1-001 - Sn/A CEMENT Left: Dixon 01/20/2021 6194-1-001 / Implanted: Qty: 1 on 12/09/2019 by Sedrick Kendall MD at [facility] Knee N /A / [id number] Bearing Tibial 10 X 63/67 Mm #[id number] - [id number] KNEE Right: Bio met 08/24/2023 [id number] / Implanted: Qty: 1 on 01/07/2019 by Sedrick Kendall MD at [facility] Knee 9 [id number] / [id number] Patella 8 X 31mm Biomet#093457 - [id number] KNEE Right: Biomet 08/29/2023 [id number] / Implanted: Qty: 1 on 01/07/2019 by Sedrick Kendall MD at [facility] Knee 1 [id number] / [id number] Cr Femoral Right KNEE Right: Biomet 01/21/2028 18 3042 / Implanted: Qty: 1 on 01/07/2019 by Sedrick Kendall MD at [facility] Knee 1 [id number] / [id number] Component Patella 32mm Vera 8mm Biomet #559232 - [id number] Other Le ft: Biomet 11/11/2024 [id number] / Implanted: Qty: 1 on 12/09/2019 by Sedrick Kendall MD at [facility] Implant Knee 1 54815 / [id number] Adc Plate Tibial Cruciate 67 Mm - [id number] PLATE Right: Biomet 05/03/2028 [id number] / Implanted: Qty: 1 on 01/07/2019 by Sedrick Kendall MD at [facility] Knee J [id number] / [id number] Screw Acetabular 6.5mm Vera 30mml Cancellous Ayaan #082921 - [id number] Left: Biomet 09/02/2029 [id number] / Implanted: Qty: 4 on 12/09/2019 by Sedrick Kendall MD at [facility] Knee 1 83818 / [id number] Component Tibial Tray Cementless 67mml Biomet #346635 - [id number] Left: Biomet 03/20/2024 [id number] / Implanted: Qty: 1 on 12/09/2019 by Sedrick Kendall MD at [facility] Knee 1 [id number] / [id number] Bearing Tibial 10 X 63/67 Mm #591273 - [id number] Left: Bio met 07/01/2024 [id number] / Implanted: Qty: 1 on 12/09/2019 by Sedrick Kendall MD at [facility] Knee 1 [id number] / [id number] Adc Femur 57.5 Mm Left - [id number] Left: Biomet 02/11/2029 275587 / Implanted: Qty: 1 on 12/09/2019 by Sedrick Kendall MD at [facility] Knee 1 53637 / [id number] Stem Finned Primary 40mm Biomet #019020 - [id number] Left: Biomet 11/19/2029 [id number] / Implanted: Qty: 1 on 12/09/2019 by Sedrick Kendall MD at [facility] Knee 1 [id number] / [id number] documented as of this encounter Results Not on filedocumented in this encounter Visit Diagnoses Diagnosis Status post total knee replacement, left - Primary documented in this encounter Insurance Payer Benefit Plan / Subscriber ID Effective Dates Phone Addre ss Type Group [facility] [id number] 2018-Presen Medicare Adv PLUS PLUS t HMO CLASSIC/VALUE ) [place] [address] documented as of this encounter
--- OUTSIDE RECORDS SUMMARY | 2020-03-03 19:57 | XMS REPORT | Summary of Care ---
:1960 Author Organization [facility] Address [address] [place] [address] Care Team Providers Name Role Phone Rey [...] [address] [place], [place] [phone] Phone: Fax: Encounter Details Date Type Department Care Team Description 12/17/2019 Office Visit [facility] Orthopaedic Reuben Bansal S, S tatus post total knee Surgery- [place] PAC replacement, left [address], [address] (Primary Dx) [place] [address] [place], [place] [phone] Allergies Active Allergy Reactions Severity Noted [...] Added automatically from request for michela sky [id number] Total knee replacement status 01/07/2019 Primary osteoarthritis of right knee 01/02/2019 Overview: Added automatically from request for michela sky [id number] Hypoxia 04/11/2018 Morbid obesity with body mass [...] 112.5 kg (248 lb) 12/17/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 Brito and the pharmacy is [...] Right 01/07/2019 Surgeon: Sedrick Calabrese MD; [place] [facility] [place]NEE ARTHROPLASTY Left 12/09/2019 Surgeon: Sedrick Calabrese MD; Location: [facility] Social History Socioeconomic History Marital status: Spouse [...] file Gets together: Not on file Attends tenriism service: Not on file Active member of [...] Office Visit Orthopedic Surgery Reuben Bansal PAC [facility] [phone] Health Maintenance Due Date Last Done [...] of this encounter Implants Implanted Type Area Electrician Deck Device Shelf Model / Identifier Expiration Serial / Date Lot Bone Cement Palacos R Radiopaque Ayaan #[id number] - [id number] CEMENT Right: Ayaan 08/23/2019 [id number] / Implanted: Qty: 1 on 01/07/2019 by Sedrick Kendall MD at [facility] Knee 8 [id number] / [id number] Cement Simplex Hv #[id number] - Sn/A CEMENT Left: Dixon 01/20/2021 6194-1-001 / Implanted: Qty: 1 on 12/09/2019 by Sedrick Kendall MD at [facility] Knee N /A / [id number] Bearing Tibial 10 X 63/67 Mm #[id number] - [id number] KNEE Right: Bio met 08/24/2023 [id number] / Implanted: Qty: 1 on 01/07/2019 by Sedrick Kendall MD at [facility] Knee 9 35636 / [id number] Patella 8 X 31mm Biomet#370932 - [id number] KNEE Right: Biomet 08/29/2023 [id number] / Implanted: Qty: 1 on 01/07/2019 by Sedrick Kendall MD at [facility] Knee 1 66092 / [id number] Cr Femoral Right KNEE Right: Biomet 01/21/2028 18 3042 / Implanted: Qty: 1 on 01/07/2019 by Sedrick Kendall MD at [facility] Knee 1 [id number] / [id number] Component Patella 32mm Vera 8mm Biomet #726256 - [id number] Other Le ft: Biomet 11/11/2024 134988 / Implanted: Qty: 1 on 12/09/2019 by Sedrick Kendall MD at [facility] Implant Knee 1 [id number] / [id number] Adc Plate Tibial Cruciate 67 Mm - [id number] PLATE Right: Biomet 05/03/2028 838346 / Implanted: Qty: 1 on 01/07/2019 by Sedrick Kendall MD at [facility] Knee J [id number] / [id number] Screw Acetabular 6.5mm Vera 30mml Cancellous Ayaan #748428 - [id number] Left: Biomet 09/02/2029 905082 / Implanted: Qty: 4 on 12/09/2019 by Sedrick Kendall MD at [facility] Knee 1 26737 / [id number] Component Tibial Tray Cementless 67mml Biomet #415142 - [id number] Left: Biomet 03/20/2024 [id number] / Implanted: Qty: 1 on 12/09/2019 by Sedrick Kendall MD at [facility] Knee 1 93735 / [id number] Bearing Tibial 10 X 63/67 Mm #454745 - [id number] Left: Bio met 07/01/2024 906072 / Implanted: Qty: 1 on 12/09/2019 by Sedrick Kendall MD at [facility] Knee 1 22820 / [id number] Adc Femur 57.5 Mm Left - [id number] Left: Biomet 02/11/2029 801868 / Implanted: Qty: 1 on 12/09/2019 by Sedrick Kendall MD at [facility] Knee 1 [id number] / [id number] Stem Finned Primary 40mm Biomet #088670 - [id number] Left: Biomet 11/19/2029 [id number] / Implanted: Qty: 1 on 12/09/2019 by Sedrick Kendall MD at [facility] Knee 1 [id number] / [id number] documented as of this encounter Results Not on filedocumented in this encounter Visit Diagnoses Diagnosis Status post total knee replacement, left - Primary documented in this encounter Insurance Payer Benefit Plan / Subscriber ID Effective Dates Phone Addre ss Type Group [facility] [id number] 2018-Presen Medicare Adv PLUS PLUS t HMO CLASSIC/VALUE ) [place] [address] documented as of this encounter
--- OUTSIDE RECORDS SUMMARY | 2020-03-03 19:58 | XMS REPORT | Summary of Care ---
:1960 Author Organization [facility] Address [address] [place] [address] Care Team Providers Name Role Phone Rey [...] [address] [place] [phone] Phone: Fax: Encounter Details Date Type Department Care Team Description 12/17/2019 Office Visit [facility] Orthopaedic Reuben Bansal S, S tatus post total knee Surgery- [place] PAC replacement, left [address], [address] (Primary Dx) [place] [address] [place], [place] [phone] Allergies Active Allergy Reactions Severity Noted [...] Added automatically from request for michela sky [id number] Total knee replacement status 01/07/2019 Primary osteoarthritis of right knee 01/02/2019 Overview: Added automatically from request for michela sky [id number] Hypoxia 04/11/2018 Morbid obesity with body mass [...] 112.5 kg (248 lb) 12/17/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 Brito and the pharmacy is [...] Right 01/07/2019 Surgeon: Sedrick Calabrese MD; [place] [facility] [place] Left 12/09/2019 Surgeon: Sedrick Calabrese MD; Location: [facility] OR [facility] Social History Socioeconomic History Marital status: Spouse [...] file Gets together: Not on file Attends church service: Not on file Active member of [...] follow-up in 2 weekspostop for staple removal. Please give her a note to take to the pharmacy that says she is acutely status post total knee replacement on 12/09/2019 Dr. Trevino is handling her pain medication but she will need more than her regular amount to recover from the surgery. TUTOR documented in this encounter Plan of Treatment Date Type Specialty Care Team Description 12/24/2019 Office Visit Orthopedic Surgery Reuben Bansal PAC [address] [address] [phone] Health Maintenance Due Date Last Done [...] of this encounter Implants Implanted Type Area Calciner Feeder Device Shelf Model / Identifier Expiration Serial / Date Lot Bone Cement Palacos R Radiopaque Ayaan #[id number] - [id number] CEMENT Right: Ayaan 08/23/2019 [id number] / Implanted: Qty: 1 on 01/07/2019 by Sedrick Kendall MD at [facility] Knee 8 [id number] / [id number] Cement Simplex Hv #6194-1-001 - Sn/A CEMENT Left: Dixon 01/20/2021 6194-1-001 / Implanted: Qty: 1 on 12/09/2019 by Sedrick Kendall MD at [facility] Knee N /A / [id number] Bearing Tibial 10 X 63/67 Mm #947628 - [id number] KNEE Right: Bio met 08/24/2023 [id number] / Implanted: Qty: 1 on 01/07/2019 by Sedrick Kendall MD at [facility] Knee 9 [id number] / [id number] Patella 8 X 31mm Biomet#744048 - [id number] KNEE Right: Biomet 08/29/2023 [id number] / Implanted: Qty: 1 on 01/07/2019 by Sedrick Kendall MD at [facility] Knee 1 [id number] / [id number] Cr Femoral Right KNEE Right: Biomet 01/21/2028 18 3042 / Implanted: Qty: 1 on 01/07/2019 by Sedrick Kendall MD at [facility] Knee 1 [id number] / [id number] Component Patella 32mm Vera 8mm Biomet #297140 - [id number] Other Le ft: Biomet 11/11/2024 [id number] / Implanted: Qty: 1 on 12/09/2019 by Sedrick Kendall MD at [facility] Im[facility] Knee 1 98454 / [id number] Adc Plate Tibial Cruciate 67 Mm - [id number] PLATE Right: Biomet 05/03/2028 034090 / Implanted: Qty: 1 on 01/07/2019 by Sedrick Kendall MD at [facility] Knee J [id number] / [id number] Screw Acetabular 6.5mm Vera 30mml Cancellous Ayaan #286251 - [id number] Left: Biomet 09/02/2029 [id number] / Implanted: Qty: 4 on 12/09/2019 by Sedrick Kendall MD at [facility] Knee 1 56587 / [id number] Component Tibial Tray Cementless 67mml Biomet #540539 - [id number] Left: Biomet 03/20/2024 [id number] / Implanted: Qty: 1 on 12/09/2019 by Sedrick Kendall MD at [facility] Knee 1 97736 / [id number] Bearing Tibial 10 X 63/67 Mm #351520 - [id number] Left: Bio met 07/01/2024 723058 / Implanted: Qty: 1 on 12/09/2019 by Sedrick Kendall MD at [facility] Knee 1 29583 / [id number] Adc Femur 57.5 Mm Left - [id number] Left: Biomet 02/11/2029 193113 / Implanted: Qty: 1 on 12/09/2019 by Sedrick Kendall MD at [facility] Knee 1 89164 / [id number] Stem Finned Primary 40mm Biomet #434486 - [id number] Left: Biomet 11/19/2029 588692 / Implanted: Qty: 1 on 12/09/2019 by Sedrick Kendall MD at [facility] Knee 1 [id number] / [id number] documented as of this encounter Results Not on filedocumented in this encounter Visit Diagnoses Diagnosis Status post total knee replacement, left - Primary documented in this encounter Insurance Payer Benefit Plan / Subscriber ID Effective Dates Phone Addre ss Type Group [facility] [id number] 2018-Presen Medicare Adv PLUS PLUS t HMO CLASSIC/[place] ([place]) [place] [address] documented as of this encounter
--- OUTSIDE RECORDS SUMMARY | 2020-03-03 19:58 | XMS REPORT | Summary of Care ---
:1960 Author Organization [facility] Address [address] [place] [address] Care Team Providers Name Role Phone Rey aFrris Primary Care Provider Reason for Referral (Routine) Status Reason Specialty Diagnoses / Referred By Referred To Procedures Contact Contact New Request Location Physical Diagnoses Status post total knee replacement, left Reuben Bansal Preference Therapy Procedures CONSULT/REFERRAL PHYSICAL THERAPY S, PAC [address] [place] [address] Radiology Services (Routine) Status Reason Specialty Diagnoses / Referred By Referred To Procedures Contact Contact New Request Diagnostic Diagnoses Status post total knee replacement, left Reuben Bansal, Radiology Procedures XR KNEE <3 VW LEFT PAC [address] [place] [address] Reason for Visit Reason Comments Follow-up Knee Pain left TKR DOS 12/09/19 (Routine) Status Reason Specialty Diagnoses / Referred By Referred To Procedures Contact Contact Authorized ORT-ORTHOPAEDIC Diagnoses Status post total left knee replacement Reuben Bansal, SURGERY / Procedures Discharge Follow-Up: Specialty Service ORT-ORTHOPAEDIC SURGERY; Other - See Comment (2 weeks postop) PAC Orthopedic Surgery [address] [place] [address] Encounter Details Date Type Department Care Team Description 12/24/2019 Office Visit [facility] Orthopaedic Bansal, Reuben S, S tatus post total knee Surgery- [place] PAC replacement, left [address], [address] (Primary Dx) [place] [address] [place], [place] [phone] [phone] Allergies Active Allergy Reactions Severity Noted Date Comments Bupropion Hcl Itching 04/06/2016 Latex, Natural Rubber Itching Medium 01/08/2019 Ketorolac Tromethamine Anaphylaxis 08/04/2015 Bupropion Unknown - See comments 08/04/2015 Zolpidem Unknown - See comments 04/06/2016 Sleep walk documented as of this encounter (statuses as of 12/24/2019) Medications Medication Sig Dispensed Refills Start Date [...] 10/29/2019 Active hr capsule mouth every evening. acetaminophen-codeine Take 2 tablets 40 tablet 0 12/11/2019 Active (TYLENOL-CODEINE #3) by mouth every 4 300-30 mg (four) hours as tabletIndications: needed for Pain Status post total left (scale 4-6) or knee replacement Pain (scale 7-10) (Maximum 10 tablets a day). documented as of this encounter (statuses as of 12/24/2019) Active Problems Problem Noted Date Primary osteoarthritis of left knee 12/05/2019 Overview: Added automatically from request for michela sky [id number] Total knee replacement status 01/07/2019 Primary osteoarthritis of right knee 01/02/2019 Overview: Added automatically from request for michela sky [id number] Hypoxia 04/11/2018 Morbid obesity with body mass index of 40.0-49.9 04/11 Knee pain, left 01/18/2016 Right knee pain 08/04/2015 documented as of this encounter (statuses as of 12/24/2019) Immunizations Name Administration Dates Next Due Pneumococcal [...] Sign Reading Time Taken Comments Blood Pressure 113/84 12/24/2019 1:21 PM CARDIAC CATH TECHNICIAN Pulse - - Temperature - - Respiratory Rate - - Oxygen Saturation - - Inhaled Oxygen Concentration - - Weight 112.5 kg (248 lb) 12/24/2019 1:21 PM CARDIAC CATH TECHNICIAN Height 157.5 cm (5' 2") 12/24/2019 1:21 PM CARDIAC CATH TECHNICIAN Body Mass Index 45.36 12/24/2019 1:21 PM CARDIAC CATH TECHNICIAN documented in this encounter Progress Notes Reuben Bansal, PAC - 12/24/2019 1:00 PM CST Cc: Chief Complaint Patient presents with Follow-up Knee Pain left TKR DOS 12/09/19 Eliza Collazo is a 58 year old female. For follow-up status post left total knee replacement on 12/09/2019 she has been having severe pain and difficulty sleeping she is not getting relief with Tylenol. She has talked to her pain medicine doctor and they have helped to increase her dosage. She got a prescription for [place] from Dr. Brito and the pharmacy is [...] 10 tablets a day). 40 tablet 0 atorvastatin 20 mg tablet Take [...] Right 01/07/2019 Surgeon: Sedrick Calabrese MD; [place] [facility] [place]OTAL KNEE ARTHROPLASTY Left 12/09/2019 Surgeon: Sedrick Calabrese MD; Location[place] [facility] [place] Social History Socioeconomic History Marital status: Spouse [...] file Gets together: Not on file Attends scientology service: Not on file Active member of [...] | BMI 45.36 kg/m Physical Exam Musculoskeletal: Physical Exam Constitutional: [...] content normal. Nursing note and vitals reviewed. Wound is well approximated there is no erythema edema or ecchymosis there is no drainage She has very uncomfortable range of motion but we were able to extend to -4 and flex to 90 Assessment/Plan Diagnosis 1. Status post total knee replacement, left XR KNEE <3 VW LEFT Is scheduled for a note to give to the physical therapist that says she is having point tenderness at the patellar tendon attachment to the tibia and to use caution with active resisted range of motionif there is tenderness in this location. IAC CATH TECHNICIAN documented in this encounter Plan of Treatment Health [...] of this encounter Implants Implanted Type Area Make Up Arranger Device Shelf Model / Identifier Expiration Serial / Date Lot Bone Cement Palacos R Radiopaque Ayaan #[id number] - [id number] [id number] CEMENT Right: Ayaan 08/23/2019 [id number] / Implanted: Qty: 1 on 01/07/2019 by Sedrick Kendall MD at [facility] Knee 8 [id number] / [id number] Cement Simplex Hv #6194-1-001 - Sn/A CEMENT Left: Dixon 01/20/2021 6194-1-001 / Implanted: Qty: 1 on 12/09/2019 by Sedrick Kendall MD at [facility] Knee N /A / [id number] Bearing Tibial 10 X 63/67 Mm #774865 - [id number] KNEE Right: Bio met 08/24/2023 439247 / Implanted: Qty: 1 on 01/07/2019 by Sedrick Kendall MD at [facility] Knee 9 [id number] / [id number] Patella 8 X 31mm Biomet#485593 - [id number] KNEE Right: Biomet 08/29/2023 207670 / Implanted: Qty: 1 on 01/07/2019 by Sedrick Kendall MD at [facility] Knee 1 93343 / [id number] Cr Femoral Right KNEE Right: Biomet 01/21/2028 18 3042 / Implanted: Qty: 1 on 01/07/2019 by Sedrick Kendall MD at [facility] Knee 1 [id number] / [id number] Component Patella 32mm Vera 8mm Biomet #642241 - [id number] Other Le ft: Biomet 11/11/2024 636064 / Implanted: Qty: 1 on 12/09/2019 by Sedrick Kendall MD at [facility] Implant Knee 1 05342 / [id number] Adc Plate Tibial Cruciate 67 Mm - [id number] PLATE Right: Biomet 05/03/2028 145994 / Implanted: Qty: 1 on 01/07/2019 by Sedrick Kendall MD at [facility] Knee J [id number] / [id number] Screw Acetabular 6.5mm Vera 30mml Cancellous Ayaan #148186 - [id number] Left: Biomet 09/02/2029 372506 / Implanted: Qty: 4 on 12/09/2019 by Sedrick Kendall MD at [facility] Knee 1 09067 / [id number] Component Tibial Tray Cementless 67mml Biomet #214396 - [id number] Left: Biomet 03/20/2024 994315 / Implanted: Qty: 1 on 12/09/2019 by Sedrick Kendall MD at [facility] Knee 1 75169 / [id number] Bearing Tibial 10 X 63/67 Mm #133808 - [id number] Left: Bio met 07/01/2024 913985 / Implanted: Qty: 1 on 12/09/2019 by Sedrick Kendall MD at [facility] Knee 1 80887 / [id number] Adc Femur 57.5 Mm Left - [id number] Left: Biomet 02/11/2029 897622 / Implanted: Qty: 1 on 12/09/2019 by Sedrick Kendall MD at [facility] Knee 1 61381 / [id number] Stem Finned Primary 40mm Biomet #792904 - [id number] Left: Biomet 11/19/2029 849642 / Implanted: Qty: 1 on 12/09/2019 by Sedrick Kendall MD at [facility] Knee 1 33260 / [id number] documented as of this encounter Results XR KNEE <3 VW LEFT (12/24/2019 1:22 PM CARDIAC CATH TECHNICIAN) Specimen Narrative Performed At This result has an attachment that is no t available. Status post total knee replacement with press-fit tibia and femur and PACS excellent alignment no signs of periprosthetic fractur e she does have a tibial tubercle osteophyte that is intact. Performing Organization Address City[facility] Phone Number PACS documented in this encounter Visit Diagnoses Diagnosis Status post total knee replacement, left - Primary documented in this encounter Insurance Payer Benefit Plan / Subscriber ID Effective Dates Phone Addre ss Type Group [employer] [place] [id number] 2018-Presen Medicare Adv PLUS PLUS t HMO CLASSIC/VALUE documented as of this encounter
--- OUTSIDE RECORDS SUMMARY | 2020-03-03 19:59 | XMS REPORT | Summary of Care ---
:1960 Author Organization [facility] Address [address] [place] [address] Care Team Providers Name Role Phone Rey Farris Primary Care Provider Encounter Details Date Type Department Care Team Description 12/24/2019 Hospital Encounter [facility] Reuben Bansal S [facility] Orthopedics - PAC Radiology [address] [place] [place] [address] [place], [place] [phone] [phone] Allergies Active Allergy Reactions Severity Noted Date Comments Bupropion Hcl Itching 04/06/2016 Latex, Natural Rubber Itching Medium 01/08/2019 Ketorolac Tromethamine Anaphylaxis 08/04/2015 Bupropion Unknown - See comments 08/04/2015 Zolpidem Unknown - See comments 04/06/2016 Sleep walk documented as of this encounter (statuses as of 2019) Medications Medication Sig Dispensed Refills Start Date [...] as of this encounter (statuses as of 2019) Active Problems Problem Noted Date Primary osteoarthritis of left knee 12/05/2019 Overview: Added automatically from request for michela jose daniel [id number] Total knee replacement status 01/07/2019 Primary osteoarthritis of right knee 01/02/2019 Overview: Added automatically from request for michela jose daniel [id number] Hypoxia 04/11/2018 Morbid obesity with body mass index of 40.0-49.9 04/11 Knee pain, left 01/18/2016 Right knee pain 08/04/2015 documented as of this encounter (statuses as of 2019) Immunizations Name Administration Dates Next Due Pneumococcal [...] Treatment Date Type Specialty Care Team Description 01/27/2020 Office Visit Orthopedic Surgery Reuben Bansal, PAC [address] [place] [phone] Health Maintenance Due Date Last Done [...] of this encounter Implants Implanted Type Area Tax Examiner Device Shelf Model / Identifier Expiration Serial / Date Lot Bone Cement Palacos R Radiopaque Ayaan #[id number] - [id number] CEMENT Right: Ayaan 08/23/2019 [id number] / Implanted: Qty: 1 on 01/07/2019 by Sedrick Kendall MD at [facility] Knee 8 [id number] / [id number] Cement Simplex Hv #6194-1-001 - Sn/A CEMENT Left: Dixon 01/20/2021 6194-1-001 / Implanted: Qty: 1 on 12/09/2019 by Sedrick Kendall MD at [facility] Knee N /A / [id number] Bearing Tibial 10 X 63/67 Mm #221189 - [id number] KNEE Right: Bio met 08/24/2023 632294 / Implanted: Qty: 1 on 01/07/2019 by Sedrick Kendall MD at [facility] Knee 9 [id number] / [id number] Patella 8 X 31mm Biomet#662648 - [id number] KNEE Right: Biomet 08/29/2023 083634 / Implanted: Qty: 1 on 01/07/2019 by Sedrick Kendall MD at [facility] Knee 1 69301 / [id number] Cr Femoral Right KNEE Right: Biomet 01/21/2028 18 3042 / Implanted: Qty: 1 on 01/07/2019 by Sedrick Kendall MD at [facility] Knee 1 00842 / [id number] Component Patella 32mm Vera 8mm Biomet #104727 - [id number] Other Le ft: Biomet 11/11/2024 637884 / Implanted: Qty: 1 on 12/09/2019 by Sedrick Kendall MD at [facility] Implant Knee 1 03645 / [id number] Adc Plate Tibial Cruciate 67 Mm - [id number] PLATE Right: Biomet 05/03/2028 194165 / Implanted: Qty: 1 on 01/07/2019 by Sedrick Kendall MD at [facility] Knee J [id number] / [id number] Screw Acetabular 6.5mm Vera 30mml Cancellous Ayaan #047444 - [id number] Left: Biomet 09/02/2029 967619 / Implanted: Qty: 4 on 12/09/2019 by Sedrick Kendall MD at [facility] Knee 1 57059 / [id number] Component Tibial Tray Cementless 67mml Biomet #196521 - [id number] Left: Biomet 03/20/2024 448249 / Implanted: Qty: 1 on 12/09/2019 by Sedrick Kendall MD at [facility] Knee 1 35925 / [id number] Bearing Tibial 10 X 63/67 Mm #868005 - [id number] Left: Bio met 07/01/2024 850947 / Implanted: Qty: 1 on 12/09/2019 by Sedrick Kendall MD at [facility] Knee 1 87372 / [id number] Adc Femur 57.5 Mm Left - [id number] Left: Biomet 02/11/2029 210542 / Implanted: Qty: 1 on 12/09/2019 by Sedrick Kendall MD at [facility] Knee 1 98968 / [id number] Stem Finned Primary 40mm Biomet #363276 - [id number] Left: Biomet 11/19/2029 916043 / Implanted: Qty: 1 on 12/09/2019 by Sedrick Kendall MD at [facility] Knee 1 28009 / [id number] documented as of this encounter Procedures Procedure Name Priority Date/Time Associated Diagnosis Comme nts XR KNEE <3 VW LEFT Routine 12/24/2019 1:22 PM Status post tot al Results for this ELECTRICAL TECH/PROJECT MANAGER knee replacement, procedure are in left the results section. documented in this encounter Results XR KNEE <3 VW LEFT (12/24/2019 1:22 PM ELECTRICAL TECH/PROJECT MANAGER) Specimen Narrative Performed At This result has an attachment that is no t available. Status post total knee replacement with press-fit tibia and femur and PACS excellent alignment no signs of periprosthetic fractur e she does have a tibial tubercle osteophyte that is intact. Performing Organization Address City/State/Zipcode Phone Number PACS documented in this encounter Visit Diagnoses Diagnosis Status post total knee replacement, left documented in this encounter Insurance Payer Benefit Plan / Subscriber ID Effective Dates Phone Addre ss Type Group [employer] [place] [id number] 2018-Presen Medicare Adv PLUS PLUS t HMO CLASSIC/VALUE documented as of this encounter
--- OUTSIDE RECORDS SUMMARY | 2020-03-03 19:59 | XMS REPORT | Summary of Care ---
:1960 Author Organization [facility] Address [address] [place] [address] Care Team Providers Name Role Phone Rey Farris Primary Care Provider Reason for Visit Reason Comments Follow-up left TKR DOS 12/09/19 (Routine) Status Reason Specialty Diagnoses / Referred By Referred To Procedures Contact Contact Authorized Orthopedic Diagnoses Bilateral primary osteoarthritis of knee Reji Farris, Surgery Procedures CONSULT/REFERRAL ORTHOPAEDIC SURGERY [address] [facility] Sedrick Moon MD SOUTH [address] [facility] 200 [facility] [place] [id number] [place] [address] Phone: [phone] Phone: Encounter Details Date Type Department Care Team Description 01/01/2020 Office Visit [facility] Orthopaedic Reuben Bansal S, S tatus post total knee Surgery- [place] PAC replacement, left [address], [address] (Primary Dx) [place] [address] [place], [place] [phone] [address] Allergies Active Allergy Reactions Severity Noted Date Comments Bupropion Hcl Itching 04/06/2016 Latex, Natural Rubber Itching Medium 01/08/2019 Ketorolac Tromethamine Anaphylaxis 08/04/2015 Bupropion Unknown - See comments 08/04/2015 Zolpidem Unknown - See comments 04/06/2016 Sleep walk documented as of this encounter (statuses as of 01/01/2020) Medications Medication Sig Dispensed Refills Start Date [...] (scale 7-10) (Maximum 10 tablets a day). Diclofenac Sodium 1 % Apply to 100 g 0 01/01/2020 Active gelIndications: Status area(s) 2 (two) post total knee times daily as replacement, left needed for Pain (scale 4-6) (Apply 2 g do not exceed 4 g in a day). documented as of this encounter (statuses as of 01/01/2020) Active Problems Problem Noted Date Primary osteoarthritis of left knee 12/05/2019 Overview: Added automatically from request for michela sky [id number] Total knee replacement status 01/07/2019 Primary osteoarthritis of right knee 01/02/2019 Overview: Added automatically from request for michela sky [id number] Hypoxia 04/11/2018 Morbid obesity with body mass index of 40.0-49.9 04/11 Knee pain, left 01/18/2016 Right knee pain 08/04/2015 documented as of this encounter (statuses as of 01/01/2020) Immunizations Name Administration Dates Next Due Pneumococcal [...] Sign Reading Time Taken Comments Blood Pressure 123/80 01/01/2020 10:55 AM CDT Pulse 83 01/01/2020 10:55 AM CDT Temperature - - Respiratory Rate - - Oxygen Saturation - - Inhaled Oxygen Concentration - - Weight 112.5 kg (248 lb) 01/01/2020 10:55 AM CDT Height 157.5 cm (5' 2") 01/01/2020 10:55 AM CDT Body Mass Index 45.36 01/01/2020 10:55 AM CDT documented in this encounter Progress Notes Reuben Bansal S, PAC - 01/01/2020 10:30 AM CDT Cc: Chief Complaint Patient presents with Follow-up left TKR DOS 12/09/19 Eliza Collazo is a 59 year old female. follow up left total knee replacement 12/09/2019. Allergies Eliza is allergic to latex, natural [...] Right 01/07/2019 Surgeon: Sedrick Calabrese MD; [place] [facility] [place] Left 12/09/2019 Surgeon: Sedrick Calabrese MD; [place] [facility] [place] History Socioeconomic History Marital status: Spouse [...] file Gets together: Not on file Attends yazdanism service: Not on file Active member of [...] Gastrointestinal: Negative. Genitourinary: Negative. Musculoskeletal: Positive for gait problem and joint swelling. Skin: Negative. Psychiatric/Behavioral: Negative. Endocrine: Endocrine negative Vital Signs BP 123/80 | Pulse 83 | Ht 62" (157.5 cm) | Wt 112.5 [...] content normal. Nursing note and vitals reviewed. She has some medial joint line pain and she has some swelling in her left popliteal fossa consistentwith mild effusion she has warmth to her knee which is normal at this point postop her incisions healing nicely she is able to extend to -4 with some patellofemoral crepitus, she has 97 of flexion sheis very sensitive to range of motion. Assessment/Plan 1. Status post total knee replacement, left She is quite uncomfortable in her left knee she has hydrocodone from her pain management doctor we will supplement with some diclofenac gel . documented in this encounter Plan of Treatment Date Type Specialty Care Team Description 01/01/2020 Ancillary Visit Physical Therapy Kathy Fontanez , PT [address] [place] [address] 01/27/2020 Office Visit Orthopedic Surgery Reuben Bansal PAC [address] [place], [place] [address] Health Maintenance Due Date Last Done [...] of this encounter Implants Implanted Type Area Mattress Maker Device Shelf Model / Identifier Expiration Serial / Date Lot Bone Cement Palacos R Radiopaque Ayaan #[id number] - [id number] CEMENT Right: Ayaan 08/23/2019 [id number] / Implanted: Qty: 1 on 01/07/2019 by Sedrick Kendall MD at [facility] Knee 8 [id number] / [id number] Cement Simplex Hv #6194-1-001 - Sn/A CEMENT Left: Dixon 01/20/2021 6194-1-001 / Implanted: Qty: 1 on 12/09/2019 by Sedrick Kendall MD at [facility] Knee N /A / [id number] Bearing Tibial 10 X 63/67 Mm #264607 - [id number] KNEE Right: Bio met 08/24/2023 [id number] / Implanted: Qty: 1 on 01/07/2019 by Sedrick Kendall MD at [facility] Knee 9 96499 / [id number] Patella 8 X 31mm Biomet#194162 - [id number] KNEE Right: Biomet 08/29/2023 163539 / Implanted: Qty: 1 on 01/07/2019 by Sedrick Kendall MD at [facility] Knee 1 98422 / [id number] Cr Femoral Right KNEE Right: Biomet 01/21/2028 18 3042 / Implanted: Qty: 1 on 01/07/2019 by Sedrick Kendall MD at [facility] Knee 1 17156 / [id number] Component Patella 32mm Vera 8mm Biomet #493205 - [id number] Other Le ft: Biomet 11/11/2024 [id number] / Implanted: Qty: 1 on 12/09/2019 by Sedrick Kendall MD at [facility] Implant Knee 1 22722 / [id number] Adc Plate Tibial Cruciate 67 Mm - [id number] PLATE Right: Biomet 05/03/2028 [id number] / Implanted: Qty: 1 on 01/07/2019 by Sedrick Kendall MD at [facility] Knee J [id number] / [id number] Screw Acetabular 6.5mm Vera 30mml Cancellous Ayaan #131710 - [id number] Left: Biomet 09/02/2029 996456 / Implanted: Qty: 4 on 12/09/2019 by Sedrick Kendall MD at [facility] Knee 1 89655 / [id number] Component Tibial Tray Cementless 67mml Biomet #624924 - [id number] Left: Biomet 03/20/2024 163540 / Implanted: Qty: 1 on 12/09/2019 by Sedrick Kendall MD at [facility] Knee 1 72694 / [id number] Bearing Tibial 10 X 63/67 Mm #585869 - [id number] Left: Bio met 07/01/2024 041356 / Implanted: Qty: 1 on 12/09/2019 by Sedrick Kendall MD at [facility] Knee 1 24403 / [id number] Adc Femur 57.5 Mm Left - [id number] Left: Biomet 02/11/2029 287953 / Implanted: Qty: 1 on 12/09/2019 by Sedrick Kendall MD at [facility] Knee 1 02782 / [id number] Stem Finned Primary 40mm Biomet #293962 - [id number] Left: Biomet 11/19/2029 900295 / Implanted: Qty: 1 on 12/09/2019 by Sedrick Kendall MD at [facility] Knee 1 38799 / [id number] documented as of this encounter Results Not on filedocumented in this encounter Visit Diagnoses Diagnosis Status post total knee replacement, left - Primary documented in this encounter Insurance Payer Benefit Plan / Subscriber ID Effective Dates Phone Addre ss Type Group CAIO CONWAY [id number] 2018-Presen Medicare Adv PLUS PLUS t HMO CLASSIC/VALUE ) [place] [address] documented as of this encounter
--- OUTSIDE RECORDS SUMMARY | 2020-03-03 19:59 | XMS REPORT | Summary of Care ---
:1960 Author Organization [facility] Address [address] [place] [address] Care Team Providers Name Role Phone Rey Farris Primary Care Provider Reason for Referral (Routine) Status Reason Specialty Diagnoses / Referred By Referred To Procedures Contact Contact New Request Location Physical Diagnoses Status post total knee replacement, left Reuben Bansal Preference Therapy Procedures CONSULT/REFERRAL PHYSICAL THERAPY S, PAC [address] [place] [address] Radiology Services (Routine) Status Reason Specialty Diagnoses / Referred By Referred To Procedures Contact Contact New Request Diagnostic Diagnoses Status post total knee replacement, left Reuben Bansal, Radiology Procedures XR KNEE <3 VW LEFT PAC [address] [place] [address] Reason for Visit Reason Comments Follow-up Knee Pain left TKR DOS 12/09/19 (Routine) Status Reason Specialty Diagnoses / Referred By Referred To Procedures Contact Contact Authorized ORT-ORTHOPAEDIC Diagnoses Status post total left knee replacement Reuben Bansal, SURGERY / Procedures Discharge Follow-Up: Specialty Service ORT-ORTHOPAEDIC SURGERY; Other - See Comment (2 weeks postop) PAC Orthopedic Surgery [address] [place] [address] Encounter Details Date Type Department Care Team Description 12/24/2019 Office Visit [facility] Orthopaedic Bansal, Reuben S, S tatus post total knee Surgery- [place] PAC replacement, left [address], [address] (Primary Dx) [place] [address] [place], [place] [phone] [address] [phone] Allergies Active Allergy Reactions Severity Noted Date [...] Added automatically from request for michela sky [id number] Total knee replacement status 01/07/2019 Primary osteoarthritis of right knee 01/02/2019 Overview: Added automatically from request for michela sky [id number] Hypoxia 04/11/2018 Morbid obesity with body mass [...] Comments Blood Pressure 113/84 12/24/2019 1:21 PM CLEAT FEEDER Pulse - - Temperature - - Respiratory Rate - - Oxygen Saturation - - Inhaled Oxygen Concentration - - Weight 112.5 kg (248 lb) 12/24/2019 1:21 PM CLEAT FEEDER Height 157.5 cm (5' 2") 12/24/2019 1:21 PM CLEAT FEEDER Body Mass Index 45.36 12/24/2019 1:21 PM CLEAT FEEDER documented in this encounter Progress Notes [...] her dosage. She got a prescription for [place] from Dr. Brito and the pharmacy is [...] TOTAL KNEE ARTHROPLASTY Left 12/09/2019 Surgeon: Sedrick Calabrees MD; [place] [facility] [place] Socioeconomic History Marital status: [...] file Gets together: Not on file Attends mormon service: Not on file Active member of [...] motionif there is tenderness in this location. 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 Device Shelf Model / Identifier Expiration Serial / Date Lot Bone Cement Palacos R Radiopaque Ayaan #[id number] - [id number] CEMENT Right: Ayaan 08/23/2019 [id number] / Implanted: Qty: 1 on 01/07/2019 by Sedrick Kendall MD at [facility] Knee 8 [id number] / [id number] Cement Simplex Hv #6194-1-001 - Sn/A CEMENT Left: Dixon 01/20/2021 6194-1-001 / Implanted: Qty: 1 on 12/09/2019 by Sedrick Kendall MD at [facility] Knee N /A / [id number] Bearing Tibial 10 X 63/67 Mm #257062 - [id number] KNEE Right: Bio met 08/24/2023 927787 / Implanted: Qty: 1 on 01/07/2019 by Sedrick Kendall MD at [facility] Knee 9 [id number] / [id number] Patella 8 X 31mm Biomet#643687 - [id number] KNEE Right: Biomet 08/29/2023 035859 / Implanted: Qty: 1 on 01/07/2019 by Sedrick Kendall MD at [facility] Knee 1 19572 / [id number] Cr Femoral Right KNEE Right: Biomet 01/21/2028 18 3042 / Implanted: Qty: 1 on 01/07/2019 by Sedrick Kendall MD at [facility] Knee 1 18194 / [id number] Component Patella 32mm Vera 8mm Biomet #278448 - [id number] Other Le ft: Biomet 11/11/2024 865736 / Implanted: Qty: 1 on 12/09/2019 by Sedrick Kendall MD at [facility] Implant Knee 1 66911 / [id number] Adc Plate Tibial Cruciate 67 Mm - [id number] PLATE Right: Biomet 05/03/2028 162192 / Implanted: Qty: 1 on 01/07/2019 by Sedrick Kendall MD at [facility] Knee J [id number] / [id number] Screw Acetabular 6.5mm Vera 30mml Cancellous Ayaan #856522 - [id number] SCREW Left: Biomet 09/02/2029 022567 / Implanted: Qty: 4 on 12/09/2019 by Sedrick Kendall MD at [facility] Knee 1 33736 / [id number] Component Tibial Tray Cementless 67mml Biomet #637794 - [id number] Left: Biomet 03/20/2024 183727 / Implanted: Qty: 1 on 12/09/2019 by Sedrick Kendall MD at [facility] Knee 1 16934 / [id number] Bearing Tibial 10 X 63/67 Mm #014898 - [id number] Left: Bio met 07/01/2024 999917 / Implanted: Qty: 1 on 12/09/2019 by Sedrick Kendall MD at [facility] Knee 1 92765 / [id number] Adc Femur 57.5 Mm Left - [id number] Left: Biomet 02/11/2029 500600 / Implanted: Qty: 1 on 12/09/2019 by Sedrick Kendall MD at [facility] Knee 1 37856 / [id number] Stem Finned Primary 40mm Biomet #413236 - [id number] Left: Biomet 11/19/2029 370672 / Implanted: Qty: 1 on 12/09/2019 by Sedrick Kendall MD at [facility] Knee 1 53435 / [id number] documented as of this encounter Results XR KNEE <3 VW LEFT (12/24/2019 1:22 PM CLEAT FEEDER) Specimen Narrative Performed At This result has an attachment that is no t available. Status post total knee replacement with press-fit tibia and femur and PACS excellent alignment no signs of periprosthetic fractur e she does have a tibial tubercle osteophyte that is intact. Performing Organization Address [facility] Phone Number PACS documented in this encounter Visit Diagnoses Diagnosis Status post total knee replacement, left - Primary documented in this encounter Insurance Payer Benefit Plan / Subscriber ID Effective Dates Phone Addre ss Type Group CAIO CONWAY [id number] 2018-Presen Medicare Adv PLUS PLUS t HMO CLASSIC/VALUE documented as of this encounter
--- OUTSIDE RECORDS SUMMARY | 2020-03-03 19:59 | XMS REPORT ---
:1960 Author Organization [employer] Care Team Providers Name Role Phone Reji Farris Provider Role Unavailable Allergies No Known Allergies Problems Problem Type Condition Code Onset Dates Condition Statu s Problem Primary osteoarthritis of both M17.0 Active knees Problem Obstructive sleep apnea (adult) G47.33 Active (pediatric) Problem Restless leg syndrome G25.81 Active Problem Urinary incontinence, unspecified R32 Active type Assessment Current moderate episode of major F32.1 Active depressive disorder without prior episode Problem Status post right knee replacement Z96.651 [...] GERD without esophagitis K21.9 Act nadine Assessment Generalized anxiety disorder F41.1 Active Problem Chronic depression F32.9 Active Problem [...]
--- OUTSIDE RECORDS SUMMARY | 2020-03-03 20:00 | XMS REPORT | Summary of Care ---
:1960 Author Organization [facility] Address [address] [place] [address] Care Team Providers Name Role Phone Rey Farris Primary Care Provider Reason for Visit Reason Comments Follow-up left TKR DOS 12/09/19 (Routine) Status Reason Specialty Diagnoses / Referred By Referred To Procedures Contact Contact Authorized Orthopedic Diagnoses Bilateral primary osteoarthritis of knee Reji Farris, Surgery Procedures CONSULT/REFERRAL ORTHOPAEDIC SURGERY [address] [facility] Sedrick Moon MD SOUTH [address] [facility] 200 [facility] [place] [address] [place] [address] Phone: [phone] Phone: Encounter Details Date Type Department Care Team Description 01/01/2020 Office Visit [facility] Orthopaedic Reuben Bansal S, S tatus post total knee Surgery- [place] PAC replacement, left [address], [address] (Primary Dx) [place] [address] [address] [place], [place] [phone] [address] Allergies Active Allergy Reactions Severity Noted [...] Added automatically from request for michela sky [id number] Total knee replacement status 01/07/2019 Primary osteoarthritis of right knee 01/02/2019 Overview: Added automatically from request for michela sky [id number] Hypoxia 04/11/2018 Morbid obesity with body mass [...] Right 01/07/2019 Surgeon: Sedrick Calabrese MD; [place] [facility] [place] Left 12/09/2019 Surgeon: Sedrick Calabrese MD; [place] [facility] [place] Socioeconomic History Marital [...] file Gets together: Not on file Attends buddhist service: Not on file Active member of [...] Physical Therapy Kathy Fontanez , PT [address] [place] [address] 01/27/2020 Office Visit Orthopedic Surgery Reuben Bansal PAC [address] [place], [place] [address] Health Maintenance Due Date [...] of this encounter Implants Implanted Type Area Door Patcher Device Shelf Model / Identifier Expiration Serial / Date Lot Bone Cement Palacos R Radiopaque Ayaan #[id number] - [id number] CEMENT Right: Ayaan 08/23/2019 [id number] / Implanted: Qty: 1 on 01/07/2019 by Sedrick Kendall MD at [facility] Knee 8 [id number] / [id number] Cement Simplex Hv #6194-1-001 - Sn/A CEMENT Left: Dixon 01/20/2021 6194-1-001 / Implanted: Qty: 1 on 12/09/2019 by Sedrick Kendall MD at [facility] Knee N /A / [id number] Bearing Tibial 10 X 63/67 Mm #084359 - [id number] KNEE Right: Bio met 08/24/2023 791580 / Implanted: Qty: 1 on 01/07/2019 by Sedrick Kendall MD at [facility] Knee 9 43902 / [id number] Patella 8 X 31mm Biomet#499563 - [id number] KNEE Right: Biomet 08/29/2023 221337 / Implanted: Qty: 1 on 01/07/2019 by Sedrick Kendall MD at [facility] Knee 1 02014 / [id number] Cr Femoral Right KNEE Right: Biomet 01/21/2028 18 3042 / Implanted: Qty: 1 on 01/07/2019 by Sedrick Kendall MD at [facility] Knee 1 [id number] / [id number] Component Patella 32mm Vera 8mm Biomet #647116 - [id number] Other Le ft: Biomet 11/11/2024 260389 / Implanted: Qty: 1 on 12/09/2019 by Sedrick Kendall MD at [facility] Implant Knee 1 93224 / [id number] Adc Plate Tibial Cruciate 67 Mm - [id number] PLATE Right: Biomet 05/03/2028 356360 / Implanted: Qty: 1 on 01/07/2019 by Sedrick Kendall MD at [facility] Knee J [id number] / [id number] Screw Acetabular 6.5mm Vera 30mml Cancellous Ayaan #119256 - [id number] Left: Biomet 09/02/2029 437457 / Implanted: Qty: 4 on 12/09/2019 by Sedrick Kendall MD at [facility] Knee 1 95898 / [id number] Component Tibial Tray Cementless 67mml Biomet #284546 - [id number] Left: Biomet 03/20/2024 305796 / Implanted: Qty: 1 on 12/09/2019 by Sedrick Kendall MD at [facility] Knee 1 61358 / [id number] Bearing Tibial 10 X 63/67 Mm #934956 - [id number] Left: Bio met 07/01/2024 481688 / Implanted: Qty: 1 on 12/09/2019 by Sedrick Kendall MD at [facility] Knee 1 94656 / [id number] Adc Femur 57.5 Mm Left - [id number] Left: Biomet 02/11/2029 236507 / Implanted: Qty: 1 on 12/09/2019 by Sedrick Kendall MD at [facility] Knee 1 30696 / [id number] Stem Finned Primary 40mm Biomet #758297 - [id number] Left: Biomet 11/19/2029 047889 / Implanted: Qty: 1 on 12/09/2019 by Sedrick Kendall MD at [facility] Knee 1 81159 / [id number] documented as of this encounter Results Not on filedocumented in this encounter Visit Diagnoses Diagnosis Status post total knee replacement, left - Primary documented in this encounter Insurance Payer Benefit Plan / Subscriber ID Effective Dates Phone Addre ss Type Group CAIO CONWAY [id number] 2018-Presen Medicare Adv PLUS PLUS t HMO CLASSIC/VALUE ) [place] [address] documented as of this encounter
--- OUTSIDE RECORDS SUMMARY | 2020-03-03 20:00 | XMS REPORT | Summary of Care ---
:1960 Author Organization [facility] Address [address] [place] [address] Care Team Providers Name Role Phone Rey Farris Primary Care Provider Reason for Visit Reason Comments Knee Pain (Routine) Status Reason Specialty Diagnoses / Referred By Referred To Procedures Contact Contact Closed Location Physical Therapy Diagnoses Status post total knee replacement, left Reuben Bansal Syst, Preference Procedures CONSULT/REFERRAL PHYSICAL THERAPY [place] PHYSICAL THERAPY EVALUATION LOW COMPLEX 20 MINS [place] PH[facility]AP[facility] EVALUATION MOD COMPLEX 30 MINS [place] PHYSICAL THERAPY EVALUATION HIGH COMPLEX 45 MINS S, PAC Referring/Pcp [place] PHYSICAL THERAPY EVALUATION LOW C OMPLEX 20 MINS [address] [place] [address] Encounter Details Date Type Department Care Team Description 01/01/2020 Ancillary Visit [facility] Sedrick Calabrese MD [address] [facility] [place] [address] Status post total left knee replacement (Primary Dx); Physical Therapy- Kathy Fontanez, PT [address] [place] [address] Weakness; Arthur Gait abnormality; Professional Office [address] [place] [address] Allergies Active Allergy Reactions Severity [...] Added automatically from request for michela sky [id number] Total knee replacement status 01/07/2019 Primary osteoarthritis of right knee 01/02/2019 Overview: Added automatically from request for michela sky [id number] Hypoxia 04/11/2018 Morbid obesity with body mass [...] Signs Not on filedocumented in this encounter Progress Notes Kathy Fontanez, PT - 01/01/2020 2:20 PM CDT Initial Evaluation Date: January 01, 2020 Diagnosis: 1. Status post total left knee replacement 2. Weakness 3. Gait abnormality 4. Poor balance Date of onset: 12/09/19 History of Condition:Patient states that she had left TKA on 12/09/19. She states that she was receiving home health therapy but they only came out about 4 times before she was in so much pain when she would do exercises. She states that she went to follow-up appointment today with orthopedic; she states that he told her that she has got to push through and do the exercises. She states that she requires assistance to get up out of chair. Reports taking hydrocodone about an hour ago due to the intensepain. Knowledge of condition: Fair Quality of life: Fair Prior physical therapy: Yes - Right Knee s/p right TKA 2018 Patient Goals: To be more mobile. Past Medical History: Diagnosis Date Anxiety Chlamydia [...] Right 01/07/2019 Surgeon: Sedrick Calabrese MD; Location: [facility] TOTAL KNEE ARTHROPLASTY Left 12/09/2019 Surgeon: Sedrick Calabrese [place]; [place] [facility] [place]: [place] Evaluation Row Name 01/01/20 1500 General Visit Number 1 Chart Reviewed Yes Family/Caregiver Present Yes Precautions Precautions None Pain Assessment Pain Assessment 0-10 Pain Score 8 Post-Treatment Pain Score 8 Pain Location Knee Pain Orientation Left Pain Descriptors Aching;Burning;Discomfort;Dull;Jabbing;Pins and needles;Pressure;Sharp;Shooting;Stabbing;Throbbing Home Living Type of Home House Lives With Spouse Home Adaptive Equipment Walker rolling or standard;Other (Comment) Prior Function Level of [place] Independent with ADLs and functional transfers Prior Function Comments Patient states that she was Independnent with all ADLs, Transfers, and functional mobility prior to surgery. IADL History Occupation On disability Activity Tolerance Endurance Tolerates 30 min exercise with multiple rests Sensation Therapy Sensation Options Hypersenitive to light touch on left LE Proprioception Proprioception Partial deficits in the RLE;Severe deficits in the LLE Proprioception Comments Right SLS: 5 seconds; Left SLS: Unable Static Sitting Balance Static Sitting-Balance Support No upper extremity supported Static Sitting-Level of Assistance Independent Dynamic Sitting Balance Dynamic Sitting-Balance Support Unilateral upper extremity supported Dynamic Sitting-Balance Lateral lean;Forward lean;Reaching across midline Static Standing Balance Static Standing-Balance Support Right upper extremity supported;Left upper extremity supported Static Standing-Level of Assistance Contact guard;Minimum assistance Dynamic Standing Balance Dynamic Standing-Balance Support Right upper extremity supported;Left upper extremity supported Dynamic Standing-Balance Reaching across midline Transfers Transfer Yes Transfers 2 Transfer From 2 Sit Transfer Type 2 To Transfer to 2 Stand Technique 2 Sit to stand Transfer Device 2 Rolling Walker Transfer Level of Assistance 2 Minimum assistance Ambulation Ambulation Yes Ambulation 1 Surface 1 Level tile Device 1 Rolling walker Assistance 1 Close supervision Quality of Gait 1 Poor Comments/Distance (ft) 1 Decrease estefania, step length, step-two pattern, flexed trun Stairs Stairs No Not tested due to patient's pain level RLE Assessment RLE Assessment WFL LLE Assessment LLE Assessment X AROM LLE (degrees) L Hip Flexion 0-125 120 L Hip Extension 0-30 15 L Hip ABduction 0-45 40 L Hip ADduction 0-25 20 L Knee Flexion 0-140 74 L Knee Extension 0-130 -5 L Ankle Dorsiflexion 0-20 10 L Ankle Plantar Flexion 0-45 42 PROM LLE (degrees) L Knee Flexion 0-140 78 L Knee Extension 0-130 -5 Patient screaming; unable to test due to pain. Strength LLE L Hip Flexion 3/5 L Hip Extension 3/5 L Hip ABduction 3/5 L Hip ADduction 3/5 L Knee Flexion 3/5 L Knee Extension 3/5 L Ankle Dorsiflexion 4/5 L Ankle Plantar Flexion 4/5 Tone LLE LLE Tone WFL Treatment: See Outpatient PT Treatment Flowsheet Assessment: Patient is a 59 year old female who presents to outpatient physical therapy s/p left TKAon 12/09/19. Patient presents with multiple impairments including pain, decreased ROM, gross LE strength, gait deficits, poor balance, and reduced functional mobility. Patient will benefit from skilled physical therapy in order to address stated impairments. Initially we will focus on improving knee ROM (focusing on achieving 0 degrees extension before flexion), and reducing pain. As patient progresses patient will benefit from progressions in LE strengthening, gait pattern, balance, and functional activities in order for patient to return to OF. If you have questions please feel free to contact me. Thank you for your referral. Rehab potential: fair Facilitators to goal achievement: Adequate resources for care Barriers to goal achievement: Medical complexity, Decreased motivation and Pain Short Term Goals: To be met in 9 visits: 1. Patient will increase knee extension ROM to 0 degrees for improved gait pattern. 2. Patient will report no more than 5/10 pain with TE. 3. Patient will be able to perform sit to stand from chair Mod I for improved functional mobility. 4. Patient will report standing tolerance to be at least 15 minutes in order to complete ADLs with greater ease. 5. Patient will be able to complete quad set with good activation for improved quad control. Process Designer Goals: To be met in 16 visits: 1. Patient will increase gross LE strength to at least 4+/5 bilateral in order to ascend/descend step with greater ease. 2. Patient will be able to perform SLS on bilateral LE's for at least 10 seconds for improved gait pattern with LRAD. 3. Patient will be able to perform SLR on left without extension lag indicating improved quad control. 4. Patient will be able to ambulate greater than 200 feet with step-through pattern with no AD for improved community ambulation with decreased fall risk. Plan of Care ROM (knee extension before flexion), Quad Control, Stretching (Hamstring, Gastroc, Quad), LE strengthening, Functional Mobility, Neuromuscular Exercises, Gait Training, Manual (PROM, Joint Mobs), and Modalities PRN. Frequency: 3x/week Duration: 4-8 weeks I have discussed the risks and benefits of the above plan with Eliza Deloris Zay. She is aware of the diagnosis and potential to improve. She participated in the setting of the goals and understandsthe importance of complying with the treatment plan, including home instruction. She agreed to the above frequency and duration of rehab services. Patient- Family Teaching: Patient provided with preferred teaching of verbal information, written information and demonstration on POC and HEP. Shows readiness to learn. Verbal instruction and Writtenmaterial teaching provided. Individual is able to read and verbalizes understanding of teaching provided. Kathy Fontanez PT, DPT [place] License Number: [id number] [email or web address] signed by Kathy Fontanez PT at 01/01/2020 4:36 PM CDTdocumented in this encounter Plan of Treatment Date Type Specialty Care Team Description 01/03/2020 Ancillary Visit Physical Therapy Sedrick Calabrese MD [address] [place] [address] Kathy Fontanez, PT [address] [place] [address] 01/06/2020 Ancillary Visit Physical Therapy Sedrick Calabrese MD [address] [place] [address] Arelis Mancia, PT [address] [place] [address] 01/08/2020 Ancillary Visit Physical Therapy Sedrick Calabrese MD [address] [place] [address] Claudine Reece, MANAGER HUMAN RESOURCES [address] [place] [address] 01/10/2020 Ancillary Visit Physical Therapy Sedrick Calabrese MD [address] [place] [address] Claudine Reece, MANAGER HUMAN RESOURCES [address] [place] [address] 01/27/2020 Office Visit Orthopedic Surgery Reuben Bansal, PAC [address] [place], [place] [address] Health Maintenance Due Date Last Done Comments [...] of this encounter Implants Implanted Type Area Grades 1 Through 5 Teacher Device Shelf Model / Identifier Expiration Serial / Date Lot Bone Cement Palacos R Radiopaque Ayaan #[id number] - [id number] CEMENT Right: Ayaan 08/23/2019 [id number] / Implanted: Qty: 1 on 01/07/2019 by Sedrick Kendall MD at [facility] Knee 8 [id number] / [id number] Cement Simplex Hv #6194-1-001 - Sn/A CEMENT Left: [place] 01/20/2021 6194-1-001 / Implanted: Qty: 1 on 12/09/2019 by Sedrick Kendall MD at [facility] Knee N /A / [id number] Bearing Tibial 10 X 63/67 Mm #[id number] - [id number] KNEE Right: Bio met 08/24/2023 [id number] / Implanted: Qty: 1 on 01/07/2019 by Sedrick Kendall MD at [facility] Knee 9 [id number] / [id number] Patella 8 X 31mm Biomet#533035 - [id number] KNEE Right: Biomet 08/29/2023 [id number] / Implanted: Qty: 1 on 01/07/2019 by Sedrick Kendall MD at [facility] Knee 1 97426 / [id number] Cr Femoral Right KNEE Right: Biomet 01/21/2028 18 3042 / Implanted: Qty: 1 on 01/07/2019 by Sedrick Kendall MD at [facility] Knee 1 02802 / [id number] Component Patella 32mm Vera 8mm Biomet #367018 - [id number] Other Le ft: Biomet 11/11/2024 [id number] / Implanted: Qty: 1 on 12/09/2019 by Sedrick Kendall MD at [facility] Implant Knee 1 [id number] / [id number] Adc Plate Tibial Cruciate 67 Mm - [id number] PLATE Right: Biomet 05/03/2028 753362 / Implanted: Qty: 1 on 01/07/2019 by Sedrick Kendall MD at [facility] Knee J [id number] / [id number] Screw Acetabular 6.5mm Vera 30mml Cancellous Ayaan #038855 - [id number] Left: Biomet 09/02/2029 881982 / Implanted: Qty: 4 on 12/09/2019 by Sedrick Kendall MD at [facility] Knee 1 71251 / [id number] Component Tibial Tray Cementless 67mml Biomet #254170 - [id number] Left: Biomet 03/20/2024 594498 / Implanted: Qty: 1 on 12/09/2019 by Sedrick Kendall MD at [facility] Knee 1 35605 / [id number] Bearing Tibial 10 X 63/67 Mm #074511 - [id number] Left: Bio met 07/01/2024 173394 / Implanted: Qty: 1 on 12/09/2019 by Sedrick Kendall MD at [facility] Knee 1 47699 / [id number] Adc Femur 57.5 Mm Left - [id number] Left: Biomet 02/11/2029 286117 / Implanted: Qty: 1 on 12/09/2019 by Sedrick Kendall MD at [facility] Knee 1 08830 / [id number] Stem Finned Primary 40mm Biomet #629538 - [id number] Left: Biomet 11/19/2029 388838 / Implanted: Qty: 1 on 12/09/2019 by Sedrick Kendall MD at [facility] Knee 1 90483 / [id number] documented as of this encounter Results Not on filedocumented in this encounter Visit Diagnoses Diagnosis Status post total left knee replacement - Primary Weakness Other malaise and fatigue Gait abnormality Abnormality of gait Poor balance documented in this encounter Insurance Payer Benefit Plan / Subscriber ID Effective Dates Phone Addre ss Type Group [employer] [employer] [id number] 2018-Presen Medicare Adv PLUS PLUS t HMO CLASSIC/VALUE documented as of this encounter
--- OUTSIDE RECORDS SUMMARY | 2020-03-03 20:01 | XMS REPORT ---
:1960 Author Organization [employer] Care Team Providers Name Role Phone Brenton Reji Provider Role Unavailable Allergies, Adverse Reactions, Alerts Substance Reaction Event Type Toradol Info Not Available Drug Allergy Wellbutrin Info Not Available Drug Allergy Problems Problem Type Condition Code Onset Dates Condition Statu s Assessment Current moderate episode of major F32.1 Active depressive disorder without prior episode Assessment Generalized anxiety disorder F41.1 Active Assessment Primary osteoarthritis of both M17.0 Active knees Assessment Morbid (severe) obesity due to E66.01 Active excess calories Assessment Chronic obstructive pulmonary J44.9 Active disease, unspecified COPD type Assessment Restless leg syndrome G25.81 Active Assessment GERD without esophagitis K21.9 Act nadine Assessment Insomnia, unspecified type G47.00 A ctive Assessment Acquired hypothyroidism E03.9 Acti ve Problem Insomnia, unspecified type G47.00 A ctive Assessment Essential (primary) hypertension I10 Active Problem Primary osteoarthritis of both M17.0 Active knees Assessment Controlled type 2 diabetes mellitus E11.9 Active without complication, without long-term current use of insulin Problem Restless leg syndrome G25.81 Active Problem Generalized anxiety disorder F41.1 Active Problem Obstructive sleep apnea (adult) G47.33 Active (pediatric) Problem Mixed stress and urge 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 Problem Urinary incontinence, unspecified R32 Active type Assessment 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 Assessment Swelling of left knee joint M25.462 Active Problem 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 Assessment Mixed hyperlipidemia E78.2 Active Problem Mixed hyperlipidemia E78.2 Active Problem 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 Problem Status post right knee replacement Z96.651 Active Problem Chronic obstructive pulmonary J44.9 Active disease, unspecified COPD type Assessment 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 Problem GERD without esophagitis K21.9 Act nadine Assessment Obstructive sleep apnea (adult) G47.33 Active (pediatric) Problem Essential (primary) hypertension I10 Active Assessment Urinary incontinence, unspecified R32 Active type Problem Morbid (severe) obesity due to E66.01 Active excess calories Problem Current moderate episode of major F32.1 Active depressive disorder without prior episode Problem Controlled type 2 diabetes mellitus E11.9 Active without complication, without long-term current use of insulin Problem Acquired hypothyroidism E03.9 Acti ve Problem Chronic depression F32.9 Active Medications Medication Code Code Instructions Start End Status Dosage System Date Date Breo Ellipta [facility] 80155307295 100-25 MCG/INH Active 1 puff Inhalation Once a day Verapamil HCl ER ND 41674768229 120 MG Orally Activ e 1 tablet Once a day Hydrocodone-Acet [facility] [address]-53 7.5-500 MG Active as aminophen Orally directed Venlafaxine HCl ND 19474731607 150 MG Orally Active as ER directed Pantoprazole ND 70615099269 40 MG Orally Active 1 tablet Sodium Once a day Gabapentin ND 24187238364 300 MG Orally Active 1 c apsule Once a day Losartan ND 45507947137 100 MG Orally Active 1 tab let Potassium Once a day Metformin HCl ND 62280218549 500 MG Orally Active 1 tablet Twice a day with a meal OneTouch Verio ND 0 - Active TEST BLOO D SUGAR ONCE A DAY Ropinirole HCl ND 83105640114 2 MG Orally Active 1 tablet 1 Once a day to 3 hours before bedtime CPAP Machine ND 0 max pressure 9 Active nigh tly cm of water Clonazepam ND 11083352709 0.5 MG Orally Active 1 t ablet Once a day at bedtime Levothyroxine ND 28619242197 100 MCG Orally Active 1 tablet Sodium Once a day on an empty stomach in the morning ReliOn Prime [facility] 68324041632 - In Vitro Active as Test twice a day directed Accu-Chek ND 01506086659 - in vitro Active as FastClix Lancets twice daily dir ected HydrOXYzine HCl ND 21913820543 25 MG Orally Active 1 tablet every 8 hrs as needed Quetiapine ND 99636504717 200 MG Orally Active 1 t ablet Fumarate Once a day Atorvastatin ND 63239997313 20 MG Orally Active 1 tablet Calcium Once a day Losartan ND 20225833716 100 MG Active TAKE 1 Potassium TABLET BY MOUTH EVERY DAY Albuterol ND 82034077966 (2.5 MG/3ML) Active 3 ml as Sulfate 0.083% needed Inhalation Three times a day Results No Known Results Summary Purpose eClinicalWorks Submission
--- OUTSIDE RECORDS SUMMARY | 2020-03-03 20:01 | XMS REPORT | Summary of Care ---
:1960 Author Organization [facility] Address [address] [place] [address] Care Team Providers Name Role Phone Rey Farris Primary Care Provider Reason for Visit Reason Comments Rx Concern/Question The patient said that she is allergic to the diclofenac and has discontinued the use of it. It was causing redness and swelling. Please prescribe something d ifferent or give recommendation on what she should do. Encounter Details Date Type Department Care Team Description 01/06/2020 Telephone [facility] Orthopaedic Sedrick Calabrese Concern/Question (The Surgery- Arthur Moon MD patient said that she is [address], [address] allergic to the [address] dic[place] [address] [place], [place] discontinued the use of [phone] [address] it. It was causing [phone] redness and swelling. [phone] Please prescrib e (Fax) something diffe rent or give recommenda tion on what she should do. ) Allergies Active Allergy Reactions Severity Noted Date Comments Bupropion Hcl Itching 04/06/2016 Diclofenac Sodium Swelling 01/07/2020 redness Latex, Natural Rubber Itching Medium 01/08/2019 Ketorolac Tromethamine Anaphylaxis 08/04/2015 Bupropion Unknown - See comments 08/04/2015 Zolpidem Unknown - See comments 04/06/2016 Sleep walk documented as of this encounter (statuses as of 01/07/2020) Medications Medication Sig Dispensed Refills Start Date [...] as of this encounter (statuses as of 01/07/2020) Active Problems Problem Noted Date Primary osteoarthritis of left knee 12/05/2019 Overview: Added automatically from request for michela sky [id number] Total knee replacement status 01/07/2019 Primary osteoarthritis of right knee 01/02/2019 Overview: Added automatically from request for michela sky [id number] Hypoxia 04/11/2018 Morbid obesity with body mass index of 40.0-49.9 04/11 Knee pain, left 01/18/2016 Right knee pain 08/04/2015 documented as of this encounter (statuses as of 01/07/2020) Immunizations Name Administration Dates Next Due Pneumococcal [...] Treatment Date Type Specialty Care Team Description 01/08/2020 Ancillary Visit Physical Therapy Sedrick Calabrese MD [address] [place] [address] [phone] Claudine Reece, MIDDLE SCHOOL DIRECTOR [address] [place] [address] 01/10/2020 Ancillary Visit Physical Therapy Sedrick Calabrese MD [address] [place] [address] Claudine Reece, MIDDLE SCHOOL DIRECTOR [address] [place] [address] 01/27/2020 Office Visit Orthopedic Surgery Reuben Bansal PAC [address] [place], [place] [address] Health Maintenance Due Date Last Done Comments [...] of this encounter Implants Implanted Type Area Kiln Car Repairer Device Shelf Model / Identifier Expiration Serial / Date Lot Bone Cement Palacos R Radiopaque Ayaan #[id number] - [id number] CEMENT Right: Ayaan 08/23/2019 [id number] / Implanted: Qty: 1 on 01/07/2019 by Sedrick Kendall MD at [facility] Knee 8 [id number] / [id number] Cement Simplex Hv #6194-1-001 - Sn/A CEMENT Left: [place] 01/20/2021 6194-1-001 / Implanted: Qty: 1 on 12/09/2019 by Sedrick Kendall MD at [facility] Knee N /A / [id number] Bearing Tibial 10 X 63/67 Mm #840150 - [id number] Right: Bio met 08/24/2023 549740 / Implanted: Qty: 1 on 01/07/2019 by Sedrick Kendall MD at [facility] Knee 9 05968 / [id number] Patella 8 X 31mm Biomet#320436 - [id number] KNEE Right: Biomet 08/29/2023 069055 / Implanted: Qty: 1 on 01/07/2019 by Sedrick Kendall MD at [facility] Knee 1 24657 / [id number] Cr Femoral Right KNEE Right: Biomet 01/21/2028 18 3042 / Implanted: Qty: 1 on 01/07/2019 by Sedrick Kendall MD at [facility] Knee 1 [id number] / [id number] Component Patella 32mm Vera 8mm Biomet #234405 - [id number] Other Le ft: Biomet 11/11/2024 038902 / Implanted: Qty: 1 on 12/09/2019 by Sedrick Kendall MD at [facility] Implant Knee 1 [id number] / [id number] Adc Plate Tibial Cruciate 67 Mm - [id number] PLATE Right: Biomet 05/03/2028 587940 / Implanted: Qty: 1 on 01/07/2019 by Sedrick Kendall MD at [facility] Knee J [id number] / [id number] Screw Acetabular 6.5mm Vera 30mml Cancellous Ayaan #887268 - [id number] Left: Biomet 09/02/2029 525729 / Implanted: Qty: 4 on 12/09/2019 by Sedrick Kendall MD at [facility] Knee 1 [id number] / [id number] Component Tibial Tray Cementless 67mml Biomet #655955 - [id number] Left: Biomet 03/20/2024 [id number] / Implanted: Qty: 1 on 12/09/2019 by Sedrick Kendall MD at [facility] Knee 1 98345 / [id number] Bearing Tibial 10 X 63/67 Mm #866226 - [id number] Left: Bio met 07/01/2024 771981 / Implanted: Qty: 1 on 12/09/2019 by Sedrick Kendall MD at [facility] Knee 1 56884 / [id number] Adc Femur 57.5 Mm Left - [id number] Left: Biomet 02/11/2029 649477 / Implanted: Qty: 1 on 12/09/2019 by Sedrick Kendall MD at [facility] Knee 1 [id number] / [id number] Stem Finned Primary 40mm Biomet #819414 - [id number] Left: Biomet 11/19/2029 [id number] / Implanted: Qty: 1 on 12/09/2019 by Sedrick Kendall MD at [facility] Knee 1 73170 / [id number] documented as of this encounter Results Not on filedocumented in this encounter Insurance Payer Benefit Plan / Subscriber ID Effective Dates Phone Addre ss Type Group [employer] [id number] 2018-Presen Medicare Adv PLUS PLUS t HMO CLASSIC/VALUE documented as of this encounter
--- OUTSIDE RECORDS SUMMARY | 2020-03-03 20:01 | XMS REPORT | Summary of Care ---
:1960 Author Organization [facility] Address [address] [place] [address] Care Team Providers Name Role Phone Rey Farris Primary Care Provider Reason for Visit Reason Comments Follow-up (Routine) Status Reason Specialty Diagnoses / Referred By Referred To Procedures Contact Contact Authorized Physical Therapy Diagnoses Presence of left artificial knee joint Weakness Unspecified abnormalities of gait and mobility Other abnormalities of gait and mobility Reuben Bansal, Gómez Fontanez er, Procedures NM THERAPEUTIC EXERCISES NM NEUROMUSC REEDUCAT,1+ AREAS, EA 15 MIN NM MANUAL THER TECH,1+REGIONS,EA 15 MIN NM THERAPEUT ACTVITY DIRECT PT CONTACT EACH 15 MIN FOLLOW-UP 40 PAC PT [address] [place] [address] [place] [phone] Encounter Details Date Type Department Care Team Description 01/13/2020 Ancillary Visit [facility] Sedrick Calabrese MD [address] [place] [address] Status post total left knee replacement (Primary Dx); Physical Therapy- Cristopher Reece, [address] [address] Weakness; [place] Gait abnormality; Professional Office Decrease d muscle strength; Building Decreased range of motion (R OM) of right knee; 146 [facility] Becka marcos; Dr. Shore 107 Aftercare following right [place] [phone] Allergies Active Allergy Reactions Severity Noted Date Comments Bupropion Hcl Itching 04/06/2016 Diclofenac Sodium Swelling 01/07/2020 redness Latex, Natural Rubber Itching Medium 01/08/2019 Ketorolac Tromethamine Anaphylaxis 08/04/2015 Bupropion Unknown - See comments 08/04/2015 Zolpidem Unknown - See comments 04/06/2016 Sleep walk documented as of this encounter (statuses as of 01/13/2020) Medications Medication Sig Dispensed Refills Start Date [...] as of this encounter (statuses as of 01/13/2020) Active Problems Problem Noted Date Primary osteoarthritis of left knee 12/05/2019 Overview: Added automatically from request for michela sky [id number] Total knee replacement status 01/07/2019 Primary osteoarthritis of right knee 01/02/2019 Overview: Added automatically from request for michela sky [id number] Hypoxia 04/11/2018 Morbid obesity with body mass index of 40.0-49.9 04/11 Knee pain, left 01/18/2016 Right knee pain 08/04/2015 documented as of this encounter (statuses as of 01/13/2020) Immunizations Name Administration Dates Next Due Pneumococcal [...] on filedocumented in this encounter Progress Notes Cristopher Reece, COMPUTER SCIENTIST - 01/13/2020 3:40 PM CDT Physical Therapy Treatment Date: January 13, 2020 Subjective: Reports 4/10 pain to left knee cap. Used gel and pain medication. 1. Status post total left knee replacement 2. Weakness 3. Gait abnormality 4. Decreased muscle strength 5. Decreased range of motion (ROM) of right knee 6. Poor balance 7. Aftercare following right knee joint replacement surgery Objective: Outpatient PT Treatment Row Name 01/13/20 1500 General Visit Number 3 Chart Reviewed Yes General Comments Visit 2 of 12 Activity Tolerance Activity Tolerance Comments AAROM 2-105 Pain Assessment Pain Assessment 0-10 Pain Score 8 Post-Treatment Pain Score 5 - Moderate pain Pain Location Knee Pain Orientation Left Therapeutic Exercise Therapeutic Exercise Activity 1 HS stretch 3x30", Heel slides 5" x2', Quad sets 5" x2' Therapeutic Exercise Activity 2 Supine: SAQ's x15, SLR's x15 Therapeutic Exercise Acitivity 3 Hip adduction with ball x15, Hip abduction with L3 Tband x20 Therapeutic Exercise Activity 4 Seated: LAQ's x20, Hip flex x20, HS curls with Tband L3 x20 Therapeutic Exercise Activity 5 Standing hip flex, hip ext, hip abd, and HS curls - not done today Therapeutic Exercise Activity 6 LE Bike x 4' Gait Training Gait Training Activity 1 2x 50 ft with STC and SBA as precaution. Modalities Cryotherapy (Minutes\\Location) 8' Assessment: Good exercise tolerance today. Able to increase exercise as noted. Able to make full rotations on bike. Increased AROM significantly. God progress today. Plan: Continue with POC 2-3 x 4-8 weeks to decrease pain, increase ROM, improve strength and functional mobility. Will add/advance exercises as able. Cristopher Reece PTA [place] Lic [id number] [facility] Rehab Services [facility] [phone] Gloria Yates, FAYE supv documented in this encounter Plan of Treatment Date Type Specialty Care Team Description 01/15/2020 Ancillary Visit Physical Therapy Sedrick Calabrese MD [address] [place] [address] [phone] Claudine Reece, COMPUTER SCIENTIST [address] [place] [address] 01/27/2020 Office Visit Orthopedic Surgery Reuben Bansal, WILLIAM [address] [place], [place] [address] Health Maintenance Due Date [...] of this encounter Implants Implanted Type Area Java Consultant Device Shelf Model / Identifier Expiration Serial / Date Lot Bone Cement Palacos R Rad[place] Ayaan #[id number] - [id number] CEMENT Right: Ayaan 08/23/2019 [id number] / Implanted: Qty: 1 on 01/07/2019 by Sedrick Kendall MD at [facility] Knee 8 [id number] / [id number] Cement Simplex Hv #6194-1-001 - Sn/A CEMENT Left: Dixon 01/20/2021 6194-1-001 / Implanted: Qty: 1 on 12/09/2019 by Sedrick Kendall MD at [facility] Knee N /A / [id number] Bearing Tibial 10 X 63/67 Mm #010229 - [id number] KNEE Right: Bio met 08/24/2023 [id number] / Implanted: Qty: 1 on 01/07/2019 by Sedrick Kendall MD at [facility] Knee 9 [id number] / [id number] Patella 8 X 31mm Biomet#160078 - [id number] KNEE Right: Biomet 08/29/2023 [id number] / Implanted: Qty: 1 on 01/07/2019 by Sedrick Kendall MD at [facility] Knee 1 20475 / [id number] Cr Femoral Right KNEE Right: Biomet 01/21/2028 18 3042 / Implanted: Qty: 1 on 01/07/2019 by Sedrick Kendall MD at [facility] Knee 1 06107 / [id number] Component Patella 32mm Vera 8mm Biomet #123473 - [id number] Other Le ft: Biomet 11/11/2024 [id number] / Implanted: Qty: 1 on 12/09/2019 by Sedrick Kendall MD at [facility] Implant Knee 1 93060 / [id number] Adc Plate Tibial Cruciate 67 Mm - [id number] PLATE Right: Biomet 05/03/2028 [id number] / Implanted: Qty: 1 on 01/07/2019 by Sedrick Kendall MD at [facility] Knee J [id number] / [id number] Screw Acetabular 6.5mm Vera 30mml Cancellous Ayaan #096187 - [id number] Left: Biomet 09/02/2029 454606 / Implanted: Qty: 4 on 12/09/2019 by Sedrick Kendall MD at [facility] Knee 1 [id number] / [id number] Component Tibial Tray Cementless 67mml Biomet #690352 - [id number] Left: Biomet 03/20/2024 [id number] / Implanted: Qty: 1 on 12/09/2019 by Sedrick Kendall MD at [facility] Knee 1 61738 / [id number] Bearing Tibial 10 X 63/67 Mm #236677 - [id number] Left: Bio met 07/01/2024 000612 / Implanted: Qty: 1 on 12/09/2019 by Sedrick Kendall MD at [facility] Knee 1 41471 / [id number] Adc Femur 57.5 Mm Left - [id number] Left: Biomet 02/11/2029 256025 / Implanted: Qty: 1 on 12/09/2019 by Sedrick Kendall MD at [facility] Knee 1 39946 / [id number] Stem Finned Primary 40mm Biomet #880947 - [id number] Left: Biomet 11/19/2029 625044 / Implanted: Qty: 1 on 12/09/2019 by Sedrick Kendall MD at [facility] Knee 1 65923 / [id number] documented as of this encounter Results Not on filedocumented in this encounter Visit Diagnoses Diagnosis Status post total left knee replacement - Primary Weakness Other malaise and fatigue Gait abnormality Abnormality of gait Decreased muscle strength Muscle weakness (generalized) Decreased range of motion (ROM) of right knee Poor balance Aftercare following right knee joint rep lacement surgery documented in this encounter Insurance Payer Benefit Plan / Subscriber ID Effective Dates Phone Addre ss Type Group [employer] [id number] 2018-Presen Medicare Adv PLUS PLUS t HMO CLASSIC/VALUE documented as of this encounter
--- OUTSIDE RECORDS SUMMARY | 2020-03-03 20:01 | XMS REPORT | Summary of Care ---
:1960 Author Organization [facility] Address [address] [place] [address] Care Team Providers Name Role Phone Rey Farris Primary Care Provider Reason for Visit Reason Comments Follow-up (Routine) Status Reason Specialty Diagnoses / Referred By Referred To Procedures Contact Contact Authorized Physical Therapy Diagnoses Presence of left artificial knee joint Weakness Unspecified abnormalities of gait and mobility Other abnormalities of gait and mobility Reuben Bansal, Gómez Fontanez er, Procedures [place] THERAPEUTIC EXERCISES MI NEUROMUSC REEDUCAT,1+ AREAS, EA 15 MIN MI MANUAL THER TECH,1+REGIONS,EA 15 MIN MI THERAPEUT ACTVITY DIRECT PT CONTACT EACH 15 MIN FOLLOW-UP 40 PAC PT [address] [place] [phone] Encounter Details Date Type Department Care Team Description 01/10/2020 Ancillary Visit [facility] Sedrick Calabrese MD [address] [place] [address] Status post total left knee replacement (Primary Dx); Physical Therapy- Claudine Reece, ICT SUPPORT ENGINEER [address] [place] [address] Weakness; [place] Gait abnormality; Professional Office [address] [place] [address] Allergies Active Allergy Reactions Severity Noted Date Comments Bupropion Hcl Itching 04/06/2016 Diclofenac Sodium Swelling 01/07/2020 redness Latex, Natural Rubber Itching Medium 01/08/2019 Ketorolac Tromethamine Anaphylaxis 08/04/2015 Bupropion Unknown - See comments 08/04/2015 Zolpidem Unknown - See comments 04/06/2016 Sleep walk documented as of this encounter (statuses as of 01/10/2020) Medications Medication Sig Dispensed Refills Start Date [...] as of this encounter (statuses as of 01/10/2020) Active Problems Problem Noted Date Primary osteoarthritis of left knee 12/05/2019 Overview: Added automatically from request for michela sky [id number] Total knee replacement status 01/07/2019 Primary osteoarthritis of right knee 01/02/2019 Overview: Added automatically from request for michela sky [id number] Hypoxia 04/11/2018 Morbid obesity with body mass index of 40.0-49.9 04/11 Knee pain, left 01/18/2016 Right knee pain 08/04/2015 documented as of this encounter (statuses as of 01/10/2020) Immunizations Name Administration Dates Next Due Pneumococcal [...] on filedocumented in this encounter Progress Notes Claudine Reece, ICT SUPPORT ENGINEER - 01/10/2020 11:20 AM CDT Physical Therapy Treatment Date: January 10, 2020 Subjective: Pt reports she has quite a bit of pain this morning. She reports less pain after session, and that she feels "confident". 1. Status post total left knee replacement 2. Weakness 3. Gait abnormality 4. Poor balance Objective: Outpatient PT Treatment Row Name 01/10/20 1100 General Visit Number 2 Chart Reviewed Yes General Comments Visit 1 of 12 Activity Tolerance Activity Tolerance Comments AAROM 3 - 96 Pain Assessment Pain Assessment 0-10 Pain Score 8 Post-Treatment Pain Score 5 - Moderate pain Pain Location Knee Pain Orientation Left Therapeutic Exercise Enter Number of Therapeutic Exercise Activities: 6 Therapeutic Exercise Activity 1 HS stretch 3x30", Heel slides 5" x2', Quad sets 5" x2' Therapeutic Exercise Activity 2 Supine: SAQ's x15, SLR's 2x 10 Therapeutic Exercise Acitivity 3 Hip adduction with ball x15, Hip abduction with L2 Tband x15 Therapeutic Exercise Activity 4 Seated: LAQ's x15, Hip flex x15, HS curls with Tband L2 x15 Therapeutic Exercise Activity 5 Standing hip flex, hip ext, hip abd, and HS curls - not done today Therapeutic Exercise Activity 6 Bike Rock 5' Gait Training Gait Training Activity 1 2x 50 ft with STC and SBA as precaution. Modalities Cryotherapy (Minutes\\Location) 10' HEP: Continue HEP as instructed. Assessment: Pt exhibits slowly improving strength and ROM. She required cues for performance and heel strike with gait. Pt tolerated treatment fair. Plan: Continue with POC 2-3 x 4-8 weeks to decrease pain, increase ROM, improve strength and functional mobility. Will add/advance exercises as able. Claudine Reece PTA [place] Lic#[id number] Supervised by: Gloria Yates PT [facility] Dept. [phone] (phone) documented in this encounter Plan of Treatment Date Type Specialty Care Team Description 01/13/2020 Ancillary Visit Physical Therapy Cristopher Reece PTA [address] [place] [address] 01/15/2020 Ancillary Visit Physical Therapy Claudine Reece PTA [address] [place] [address] 01/27/2020 Office Visit Orthopedic Surgery Reuben Bansal, PAC [address] [place] [phone] Health Maintenance Due Date Last Done [...] of this encounter Implants Implanted Type Area Compensation Programs Manager Device Shelf Model / Identifier Expiration Serial / Date Lot Bone Cement Palacos R [place] Ayaan #[id number] - [id number] CEMENT Right: Ayaan 08/23/2019 [id number] / Implanted: Qty: 1 on 01/07/2019 by Sedrick Kendall MD at [facility] Knee 8 [id number] / [id number] Cement Simplex Hv #6194-1-001 - Sn/A CEMENT Left: Dixon 01/20/2021 6194-1-001 / Implanted: Qty: 1 on 12/09/2019 by Sedrick Kendall MD at [facility] Knee N /A / [id number] Bearing Tibial 10 X 63/67 Mm #381171 - [id number] KNEE Right: Bio met 08/24/2023 499533 / Implanted: Qty: 1 on 01/07/2019 by Sedrick Kendall MD at [facility] Knee 9 37480 / [id number] Patella 8 X 31mm Biomet#144898 - [id number] KNEE Right: Biomet 08/29/2023 254910 / Implanted: Qty: 1 on 01/07/2019 by Sedrick Kendall MD at [facility] Knee 1 85367 / [id number] Cr Femoral Right KNEE Right: Biomet 01/21/2028 18 3042 / Implanted: Qty: 1 on 01/07/2019 by Sedrick Kendall MD at [facility] Knee 1 [id number] / [id number] Component Patella 32mm Vera 8mm Biomet #622787 - [id number] Other Le ft: Biomet 11/11/2024 263255 / Implanted: Qty: 1 on 12/09/2019 by Sedrick Kendall MD at [facility] Implant Knee 1 34232 / [id number] Adc Plate Tibial Cruciate 67 Mm - [id number] PLATE Right: Biomet 05/03/2028 939054 / Implanted: Qty: 1 on 01/07/2019 by Sedrick Kendall MD at [facility] Knee J [id number] / [id number] Screw Acetabular 6.5mm Vera 30mml Cancellous Ayaan #993345 - [id number] Left: Biomet 09/02/2029 015613 / Implanted: Qty: 4 on 12/09/2019 by Sedrick Kendall MD at [facility] Knee 1 80418 / [id number] Component Tibial Tray Cementless 67mml Biomet #812735 - [id number] Left: Biomet 03/20/2024 938441 / Implanted: Qty: 1 on 12/09/2019 by Sedrick Kendall MD at [facility] Knee 1 43755 / [id number] Bearing Tibial 10 X 63/67 Mm #129758 - [id number] Left: Bio met 07/01/2024 488590 / Implanted: Qty: 1 on 12/09/2019 by Sedrick Kendall MD at [facility] Knee 1 86949 / [id number] Adc Femur 57.5 Mm Left - [id number] Left: Biomet 02/11/2029 387645 / Implanted: Qty: 1 on 12/09/2019 by Sedrick Kendall MD at [facility] Knee 1 60886 / [id number] Stem Finned Primary 40mm Biomet #158693 - [id number] Left: Biomet 11/19/2029 166794 / Implanted: Qty: 1 on 12/09/2019 by Sedrick Kendall MD at [facility] Knee 1 33998 / [id number] documented as of this encounter Results Not on filedocumented in this encounter Visit Diagnoses Diagnosis Status post total left knee replacement - Primary Weakness Other malaise and fatigue Gait abnormality Abnormality of gait Poor balance documented in this encounter Insurance Payer Benefit Plan / Subscriber ID Effective Dates Phone Addre ss Type Group [employer] [facility] [id number] 2018-Presen Medicare Adv PLUS PLUS t HMO CLASSIC/VALUE documented as of this encounter
--- OUTSIDE RECORDS SUMMARY | 2020-03-03 20:02 | XMS REPORT | Summary of Care ---
:1960 Author Organization [facility] Address [address] [place] [address] Care Team Providers Name Role Phone Rey Farris Primary Care Provider Encounter Details Date Type Department Care Team Description 01/10/2020 Orders Only [facility] Doctor Unassigned, No [address] [facility] [place] [address] [address] [place] [id number] Allergies Active Allergy Reactions Severity Noted Date Comments Bupropion Hcl Itching 04/06/2016 Diclofenac Sodium Swelling 01/07/2020 redness Latex, Natural Rubber Itching Medium 01/08/2019 Ketorolac Tromethamine Anaphylaxis 08/04/2015 Bupropion Unknown - See comments 08/04/2015 Zolpidem Unknown - See comments 04/06/2016 Sleep walk documented as of this encounter (statuses as of 01/14/2020) Medications Medication Sig Dispensed Refills Start Date [...] as of this encounter (statuses as of 01/14/2020) Active Problems Problem Noted Date Primary osteoarthritis of left knee 12/05/2019 Overview: Added automatically from request for michela jose daniel [id number] Total knee replacement status 01/07/2019 Primary osteoarthritis of right knee 01/02/2019 Overview: Added automatically from request for michela jose daniel [id number] Hypoxia 04/11/2018 Morbid obesity with body mass index of 40.0-49.9 04/11 Knee pain, left 01/18/2016 Right knee pain 08/04/2015 documented as of this encounter (statuses as of 01/14/2020) Immunizations Name Administration Dates Next Due Pneumococcal [...] Ancillary Visit Physical Therapy Sedrick Calabrese MD [address] [place] [address] Claudine Reece, [facility] [address] [place] [address] 01/27/2020 Office Visit Orthopedic Surgery Reuben Bansal, WILLIAM [address] [place], [place] [address] Health Maintenance Due Date [...] of this encounter Implants Implanted Type Area Manager Assessment Device Shelf Model / Identifier Expiration Serial / Date Lot Bone Cement Palac[place] R [place] Ayaan #[id number] - [id number] [id number] CEMENT Right: Ayaan 08/23/2019 [id number] / Implanted: Qty: 1 on 01/07/2019 by Sedrick Kendall MD at [facility] Knee 8 [id number] / [id number] Cement Simplex Hv #6194-1-001 - Sn/A CEMENT Left: Dixon 01/20/2021 6194-1-001 / Implanted: Qty: 1 on 12/09/2019 by Sedrick Kendall MD at [facility] Knee N /A / [id number] Bearing Tibial 10 X 63/67 Mm #731931 - [id number] KNEE Right: Bio met 08/24/2023 457246 / Implanted: Qty: 1 on 01/07/2019 by Sedrick Kendall MD at [facility] Knee 9 50238 / [id number] Patella 8 X 31mm Biomet#210026 - [id number] KNEE Right: Biomet 08/29/2023 755453 / Implanted: Qty: 1 on 01/07/2019 by Sedrick Kendall MD at [facility] Knee 1 00641 / [id number] Cr Femoral Right KNEE Right: Biomet 01/21/2028 18 3042 / Implanted: Qty: 1 on 01/07/2019 by Sedrick Kendall MD at [facility] Knee 1 60559 / [id number] Component Patella 32mm Vera 8mm Biomet #500566 - [id number] Other Le ft: Biomet 11/11/2024 360117 / Implanted: Qty: 1 on 12/09/2019 by Sedrick Kendall MD at [facility] Implant Knee 1 55264 / [id number] Adc Plate Tibial Cruciate 67 Mm - [id number] PLATE Right: Biomet 05/03/2028 469320 / Implanted: Qty: 1 on 01/07/2019 by Sedrick Kendall MD at [facility] Knee J [id number] / [id number] Screw Acetabular 6.5mm Vera 30mml Cancellous Ayaan #050198 - [id number] Left: Biomet 09/02/2029 189621 / Implanted: Qty: 4 on 12/09/2019 by Sedrick Kendall MD at [facility] Knee 1 88301 / [id number] Component Tibial Tray Cementless 67mml Biomet #390805 - [id number] Left: Biomet 03/20/2024 095820 / Implanted: Qty: 1 on 12/09/2019 by Sedrick Kendall MD at [facility] Knee 1 47966 / [id number] Bearing Tibial 10 X 63/67 Mm #042562 - [id number] Left: Bio met 07/01/2024 117132 / Implanted: Qty: 1 on 12/09/2019 by Sedrick Kendall MD at [facility] Knee 1 63815 / [id number] Adc Femur 57.5 Mm Left - [id number] Left: Biomet 02/11/2029 363310 / Implanted: Qty: 1 on 12/09/2019 by Sedrick Kendall MD at [facility] Knee 1 99258 / [id number] Stem Finned Primary 40mm Biomet #628200 - [id number] Left: Biomet 11/19/2029 520042 / Implanted: Qty: 1 on 12/09/2019 by Sedrick Kendall MD at [facility] Knee 1 64114 / [id number] documented as of this encounter Procedures Procedure Name Priority Date/Time Associated Diagnosis Comme nts HOME HEALTH - OTHER Routine 01/10/2020 12:01 AM CDT documented in this encounter Results Not on filedocumented in this encounter Insurance Payer Benefit Plan / Subscriber ID Effective Dates Phone Addre ss Type Group [employer] [place] [id number] 2018-Pres Medicare Adv PLUS PLUS t HMO CLASSIC/VALUE documented as of this encounter
--- OUTSIDE RECORDS SUMMARY | 2020-03-03 20:03 | XMS REPORT | Summary of Care ---
:1960 Author Organization [facility] Address [address] [place] [address] Care Team Providers Name Role Phone Rey Farris Primary Care Provider Encounter Details Date Type Department Care Team Description 12/18/2019 Patient [facility] Orthopaedic Doctor Unamaddie signed, Surgery- [place] [address] [place] [address], [facility] [place] [address] [place] [address] [place] [address] Allergies Active Allergy Reactions Severity Noted Date Comments Bupropion Hcl Itching 04/06/2016 Diclofenac Sodium Swelling 01/07/2020 redness Latex, Natural Rubber Itching Medium 01/08/2019 Ketorolac Tromethamine Anaphylaxis 08/04/2015 Bupropion Unknown - See comments 08/04/2015 Zolpidem Unknown - See comments 04/06/2016 Sleep walk documented as of this encounter (statuses as of 01/18/2020) Medications Medication Sig Dispensed Refills Start Date [...] as of this encounter (statuses as of 01/18/2020) Active Problems Problem Noted Date Primary osteoarthritis of left knee 12/05/2019 Overview: Added automatically from request for michela jose daniel [id number] Total knee replacement status 01/07/2019 Primary osteoarthritis of right knee 01/02/2019 Overview: Added automatically from request for michela jose daniel [id number] Hypoxia 04/11/2018 Morbid obesity with body mass index of 40.0-49.9 04/11 Knee pain, left 01/18/2016 Right knee pain 08/04/2015 documented as of this encounter (statuses as of 01/18/2020) Immunizations Name Administration Dates Next Due Pneumococcal [...] Treatment Date Type Specialty Care Team Description 01/20/2020 Ancillary Visit Physical Therapy Arelis Mancia , PT [address] [place] [address] 01/22/2020 Ancillary Visit Physical Therapy Claudine Reece, BUSINESS LIAISON OFFICER [address] [place] [address] 01/27/2020 Office Visit Orthopedic Surgery Reuben Bansal, PAC [address] [place], [place] [address] Health Maintenance Due Date [...] of this encounter Implants Implanted Type Area Ribbon Winder Device Shelf Model / Identifier Expiration Serial / Date Lot Bone Cement Palacos R Radiopaque Ayaan #[id number] - [id number] CEMENT Right: Ayaan 08/23/2019 [id number] / Implanted: Qty: 1 on 01/07/2019 by Sedrick Kendall MD at [facility] Knee 8 [id number] / [id number] Cement Simplex Hv #6194-1-001 - Sn/A CEMENT Left: Hamlet 01/20/2021 6194-1-001 / Implanted: Qty: 1 on 12/09/2019 by Sedrick Kendall MD at [facility] Knee N /A / [id number] Bearing Tibial 10 X 63/67 Mm #108797 - [id number] KNEE Right: Bio met 08/24/2023 [id number] / Implanted: Qty: 1 on 01/07/2019 by Sedrick Kendall MD at [facility] Knee 9 [id number] / [id number] Patella 8 X 31mm Biomet#044160 - [id number] KNEE Right: Biomet 08/29/2023 929300 / Implanted: Qty: 1 on 01/07/2019 by Sedrick Kendall MD at [facility] Knee 1 [id number] / [id number] Cr Femoral Right KNEE Right: Biomet 01/21/2028 18 3042 / Implanted: Qty: 1 on 01/07/2019 by Sedrick Kendall MD at [facility] Knee 1 32246 / [id number] Component Patella 32mm Vera 8mm Biomet #114951 - [id number] Other Le ft: Biomet 11/11/2024 562879 / Implanted: Qty: 1 on 12/09/2019 by Sedrick Kendall MD at [facility] Implant Knee 1 51097 / [id number] Adc Plate Tibial Cruciate 67 Mm - [id number] PLATE Right: Biomet 05/03/2028 497308 / Implanted: Qty: 1 on 01/07/2019 by Sedrick Kendall MD at [facility] Knee J [id number] / [id number] Screw Acetabular 6.5mm Vera 30mml Cancellous Ayaan #336632 - [id number] Left: Biomet 09/02/2029 507097 / Implanted: Qty: 4 on 12/09/2019 by Sedrick Kendall MD at [facility] Knee 1 14779 / [id number] Component Tibial Tray Cementless 67mml Biomet #940426 - [id number] Left: Biomet 03/20/2024 233405 / Implanted: Qty: 1 on 12/09/2019 by Sedrick Kendall MD at [facility] Knee 1 94089 / [id number] Bearing Tibial 10 X 63/67 Mm #113683 - [id number] Left: Bio met 07/01/2024 477126 / Implanted: Qty: 1 on 12/09/2019 by Sedrick Kendall MD at [facility] Knee 1 08756 / [id number] Adc Femur 57.5 Mm Left - [id number] Left: Biomet 02/11/2029 745810 / Implanted: Qty: 1 on 12/09/2019 by Sedrick Kendall MD at [facility] Knee 1 55509 / [id number] Stem Finned Primary 40mm Biomet #379004 - [id number] Left: Biomet 11/19/2029 227567 / Implanted: Qty: 1 on 12/09/2019 by Sedrick Kendall MD at [facility] Knee 1 85547 / [id number] documented as of this encounter Results Not on filedocumented in this encounter Insurance Payer Benefit Plan / Subscriber ID Effective Dates Phone Addre ss Type Group CAIO CONWAY [id number] 2018-Presen Medicare Adv PLUS PLUS t HMO CLASSIC/VALUE documented as of this encounter
--- OUTSIDE RECORDS SUMMARY | 2020-03-03 20:03 | XMS REPORT | Summary of Care ---
:1960 Author Organization [facility] Address [address] [place] [address] Care Team Providers Name Role Phone Rey Farris Primary Care Provider Reason for Visit Reason Comments Follow-up (Routine) Status Reason Specialty Diagnoses / Referred By Referred To Procedures Contact Contact Authorized Physical Therapy Diagnoses Presence of left artificial knee joint Weakness Unspecified abnormalities of gait and mobility Other abnormalities of gait and mobility Reuben Bansal, Gómez Fontanez er, Procedures [place] THERAPEUTIC EXERCISES [place] NEUROMUSC REEDUCAT,1+ AREAS, EA 15 MIN WA MANUAL THER TECH,1+REGIONS,EA 15 MIN [place] THERAPEUT ACTVITY DIRECT PT CONTACT EACH 15 MIN FOLLOW-UP 40 PAC PT [address] [place] [address] [place] [id number] Encounter Details Date Type Department Care Team Description 01/15/[address] [facility] Sedrick Calabrese MD [address] [place] [address] Status post total left knee replacement (Primary Dx); Physical Therapy- Gloria Sena, PT [address] [place] [address] Weakness; [place] Gait abnormality; Professional Office Decrease d muscle strength; Building Decreased range of motion (R OM) of right knee; [address] [facility] Becka marcos; Dr. Shore 107 Aftercare following right kn ee joint replacement surgery [place] [phone] Allergies Active Allergy Reactions Severity Noted Date Comments Bupropion Hcl Itching 04/06/2016 Diclofenac Sodium Swelling 01/07/2020 redness Latex, Natural Rubber Itching Medium 01/08/2019 Ketorolac Tromethamine Anaphylaxis 08/04/2015 Bupropion Unknown - See comments 08/04/2015 Zolpidem Unknown - See comments 04/06/2016 Sleep walk documented as of this encounter (statuses as of 01/15/2020) Medications Medication Sig Dispensed Refills Start Date [...] as of this encounter (statuses as of 01/15/2020) Active Problems Problem Noted Date Primary osteoarthritis of left knee 12/05/2019 Overview: Added automatically from request for michela sky [id number] Total knee replacement status 01/07/2019 Primary osteoarthritis of right knee 01/02/2019 Overview: Added automatically from request for michela sky [id number] Hypoxia 04/11/2018 Morbid obesity with body mass index of 40.0-49.9 04/11 Knee pain, left 01/18/2016 Right knee pain 08/04/2015 documented as of this encounter (statuses as of 01/15/2020) Immunizations Name Administration Dates Next Due Pneumococcal [...] on filedocumented in this encounter Progress Notes Gloria Sena, PT - 01/15/2020 2:20 PM CDT Physical Therapy Treatment Date: January 15, 2020 Subjective: " I am sore today and my vertigo acted up really bad today." 1. Status post total left knee replacement 2. Weakness 3. Gait abnormality 4. Decreased muscle strength 5. Decreased range of motion (ROM) of right knee 6. Poor balance 7. Aftercare following right knee joint replacement surgery Objective: Outpatient PT Treatment Row Name 01/15/20 1400 General Visit Number 4 Chart Reviewed Yes General Comments Visit 3 of 12 Activity Tolerance Activity Tolerance Comments AAROM 1-103 Pain Assessment Pain Assessment 0-10 Pain Score 5 - Moderate pain Post-Treatment Pain Score 5 - Moderate pain [...] ext, hip abd, and HS curls - x 10 ea with weight bearing on RLE. Therapeutic Exercise Activity 6 Bike not performed today due to increased pain and soreness. Pt refused. Gait Training Gait Training Activity 1 2x 50 ft with STC and SBA as precaution. Modalities Cryotherapy (Minutes\\Location) 8' Assessment: Pt tolerated treatment well today. Patient progressing well and able to tolerate increased repetitions. Patient performing gait with RW but with equal stance time BLEs and good ROM throughout gait cycle. Plan: Patient to continue with POC focusing on strengthening, ROM, and increasing overall mobility. Gloria Yates, PT [place] PT License [phone] [facility] Department (phone) (fax) documented in this encounter Plan of Treatment Date Type Specialty Care Team Description 01/20/2020 Ancillary Visit Physical Therapy Arelis Mancia , PT [address] [place] [address] 01/22/2020 Ancillary Visit Physical Therapy Claudine Reece, IN HOME CAREGIVER [address] [place] [address] 01/27/2020 Office Visit Orthopedic Surgery Reuben Bansal, PAC [address] [place], [place] [address] Health Maintenance Due Date [...] of this encounter Implants Implanted Type Area Pediatric Physician Device Shelf Model / Identifier Expiration Serial / Date Lot Bone Cement Palacos R Radiopaque Ayaan #[id number] - [id number] CEMENT Right: Ayaan 08/23/2019 [id number] / Implanted: Qty: 1 on 01/07/2019 by Sedrick Kendall MD at [facility] Knee 8 [id number] / [id number] Cement Simplex Hv #6194-1-001 - Sn/A CEMENT Left: Dixon 01/20/2021 6194-1-001 / Implanted: Qty: 1 on 12/09/2019 by Sedrick Kendall MD at [facility] Knee N /A / [id number] Bearing Tibial 10 X 63/67 Mm #513990 - [id number] KNEE Right: Bio met 08/24/2023 418927 / Implanted: Qty: 1 on 01/07/2019 by Sedrick Kendall MD at [facility] Knee 9 89659 / [id number] Patella 8 X 31mm Biomet#747078 - [id number] KNEE Right: Biomet 08/29/2023 523481 / Implanted: Qty: 1 on 01/07/2019 by Sedrick Kendall MD at [facility] Knee 1 09612 / [id number] Cr Femoral Right KNEE Right: Biomet 01/21/2028 18 3042 / Implanted: Qty: 1 on 01/07/2019 by Sedrick Kendall MD at [facility] Knee 1 42672 / [id number] Component Patella 32mm Vera 8mm Biomet #720019 - [id number] Other Le ft: Biomet 11/11/2024 112844 / Implanted: Qty: 1 on 12/09/2019 by Sedrick Kendall MD at [facility] Implant Knee 1 40647 / [id number] Adc Plate Tibial Cruciate 67 Mm - [id number] PLATE Right: Biomet 05/03/2028 631868 / Implanted: Qty: 1 on 01/07/2019 by Sedrick Kendall MD at [facility] Knee J [id number] / [id number] Screw Acetabular 6.5mm Vera 30mml Cancellous Ayaan #828705 - [id number] Left: Biomet 09/02/2029 886465 / Implanted: Qty: 4 on 12/09/2019 by Sedrick Kendall MD at [facility] Knee 1 53881 / [id number] Component Tibial Tray Cementless 67mml Biomet #547110 - [id number] Left: Biomet 03/20/2024 224793 / Implanted: Qty: 1 on 12/09/2019 by Sedrick Kendall MD at [facility] Knee 1 15769 / [id number] Bearing Tibial 10 X 63/67 Mm #181990 - [id number] Left: Bio met 07/01/2024 113683 / Implanted: Qty: 1 on 12/09/2019 by Sedrick Kendall MD at [facility] Knee 1 60562 / [id number] Adc Femur 57.5 Mm Left - [id number] Left: Biomet 02/11/2029 059582 / Implanted: Qty: 1 on 12/09/2019 by Sedrick Kendall MD at [facility] Knee 1 40110 / [id number] Stem Finned Primary 40mm Biomet #996268 - [id number] Left: Biomet 11/19/2029 291718 / Implanted: Qty: 1 on 12/09/2019 by Sedrick Kendall MD at [facility] Knee 1 70934 / [id number] documented as of this encounter Results Not [...] Phone Addre ss Type Group [employer] [id number] 2018-Presen Medicare Adv PLUS PLUS t HMO CLASSIC/VALUE documented as of this encounter
--- OUTSIDE RECORDS SUMMARY | 2020-03-03 20:03 | XMS REPORT | Summary of Care ---
:1960 Author Organization [facility] Address [address] [place] [address] Care Team Providers Name Role Phone Rey Farris Primary Care Provider Encounter Details Date Type Department Care Team Description 12/13/2019 Orders Only [facility] Doctor Unassigned, No [address] [facility] [place] [address] [address] [place] [phone] Allergies Active Allergy Reactions Severity Noted Date [...] automatically from request for michela jose daniel [id number] Total knee replacement status 01/07/2019 Primary osteoarthritis of right knee 01/02/2019 Overview: Added automatically from request for michela jose daniel [id number] Hypoxia 04/11/2018 Morbid obesity with body mass [...] Ancillary Visit Physical Therapy Sedrick Calabrese MD [address] [place] [address] Claudine Reece, [facility] [address] [place] [address] 01/27/2020 Office Visit Orthopedic Surgery Reuben Bansal, PAC [address] [place], [place] [address] Health Maintenance Due Date [...] of this encounter Implants Implanted Type Area Signal Circuit Designer Device Shelf Model / Identifier Expiration Serial / Date Lot Bone Cement Palacos R Radiopaque Ayaan #[id number] - [id number] [id number] CEMENT Right: Ayaan 08/23/2019 [id number] / Implanted: Qty: 1 on 01/07/2019 by Sedrick Kendall MD at [facility] Knee 8 [id number] / [id number] Cement Simplex Hv #6194-1-001 - Sn/A CEMENT Left: Dixon 01/20/2021 6194-1-001 / Implanted: Qty: 1 on 12/09/2019 by Sedrick Kendall MD at [facility] Knee N /A / [id number] Bearing Tibial 10 X 63/67 Mm #873865 - [id number] KNEE Right: Bio met 08/24/2023 900281 / Implanted: Qty: 1 on 01/07/2019 by Sedrick Kendall MD at [facility] Knee 9 78383 / [id number] Patella 8 X 31mm Biomet#547402 - [id number] KNEE Right: Biomet 08/29/2023 320309 / Implanted: Qty: 1 on 01/07/2019 by Sedrick Kendall MD at [facility] Knee 1 43011 / [id number] Cr Femoral Right KNEE Right: Biomet 01/21/2028 18 3042 / Implanted: Qty: 1 on 01/07/2019 by Sedrick Kendall MD at [facility] Knee 1 69683 / [id number] Component Patella 32mm Vera 8mm Biomet #377675 - [id number] Other Le ft: Biomet 11/11/2024 681400 / Implanted: Qty: 1 on 12/09/2019 by Sedrick Kendall MD at [facility] Implant Knee 1 05282 / [id number] Adc Plate Tibial Cruciate 67 Mm - [id number] PLATE Right: Biomet 05/03/2028 619357 / Implanted: Qty: 1 on 01/07/2019 by Sedrick Kendall MD at [facility] Knee J [id number] / [id number] Screw Acetabular 6.5mm Vera 30mml Cancellous Ayaan #512819 - [id number] Left: Biomet 09/02/2029 957857 / Implanted: Qty: 4 on 12/09/2019 by Sedrick Kendall MD at [facility] Knee 1 04264 / [id number] Component Tibial Tray Cementless 67mml Biomet #528844 - [id number] Left: Biomet 03/20/2024 692195 / Implanted: Qty: 1 on 12/09/2019 by Sedrick Kendall MD at [facility] Knee 1 52157 / [id number] Bearing Tibial 10 X 63/67 Mm #187470 - [id number] Left: Bio met 07/01/2024 041447 / Implanted: Qty: 1 on 12/09/2019 by Sedrick Kendall MD at [facility] Knee 1 68880 / [id number] Adc Femur 57.5 Mm Left - [id number] Left: Biomet 02/11/2029 149427 / Implanted: Qty: 1 on 12/09/2019 by Sedrick Kendall MD at [facility] Knee 1 41526 / [id number] Stem Finned Primary 40mm Biomet #090983 - [id number] Left: Biomet 11/19/2029 648614 / Implanted: Qty: 1 on 12/09/2019 by Sedrick Kendall MD at [facility] Knee 1 38612 / [id number] documented as of this encounter Procedures Procedure Name Priority Date/Time Associated Diagnosis Comme [facility] 485 Routine 12/13/2019 12:01 AM DIGITAL MEDIA ASSOCIATE documented in this encounter Results Not on filedocumented in this encounter Insurance Payer Benefit Plan / Subscriber ID Effective Dates Phone Addre ss Type Group [employer] [id number] 2018-Presen Medicare Adv PLUS PLUS t HMO CLASSIC/VALUE documented as of this encounter
--- OUTSIDE RECORDS SUMMARY | 2020-03-03 20:04 | XMS REPORT ---
:1960 Author Organization [employer] Care Team Providers Name Role Phone Reji Farris Provider Role Unavailable Allergies No Known Allergies Problems Problem Type Condition Code Onset Dates Condition Statu s Problem Restless leg syndrome G25.81 Active Problem Generalized anxiety disorder F41.1 Active Problem Obstructive sleep apnea (adult) G47.33 Active (pediatric) Problem Mixed stress and urge 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 Problem Urinary incontinence, unspecified R32 Active type Problem 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 Problem Mixed hyperlipidemia E78.2 Active Problem 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 Problem Status post right knee replacement Z96.651 Active Problem Chronic obstructive pulmonary J44.9 Active disease, unspecified COPD type Problem GERD without esophagitis K21.9 Act nadine Problem Essential (primary) hypertension I10 Active Problem Morbid (severe) obesity due to E66.01 Active excess calories Problem Current moderate episode of major F32.1 Active depressive disorder without prior episode Problem Controlled type 2 diabetes mellitus E11.9 Active without complication, without long-term current use of insulin Problem Acquired hypothyroidism E03.9 Acti ve Problem Insomnia, unspecified type G47.00 A ctive Problem Chronic depression F32.9 Active Problem Primary osteoarthritis of both M17.0 Active knees Medications No Known Medications Results No Known Results Summary Purpose eClinical[employer] Submission
--- OUTSIDE RECORDS SUMMARY | 2020-03-03 20:04 | XMS REPORT ---
[...] osteoarthritis of both M17.0 Active knees Medications Medication Code Code Instructions Start End Status Dosage System Date Date ReliOn Prime Test ND 00108675570 - In Vitro Active as twice a day directed Accu-Chek ND 92208422433 - in vitro Active as FastClix Lancets twice daily dir ected HydrOXYzine HCl ND 89084154338 25 MG Orally Active 1 tablet every 8 hrs as needed OneTouch Verio ND 0 - Active TEST BLOO D SUGAR ONCE A DAY Quetiapine NDC 64773591192 100 MG Orally Active 1 t ablet Fumarate Once a day Metformin HCl ND 02714128334 500 MG Orally Active 1 tablet Once a day with a meal Venlafaxine HCl ND 42517789862 75 MG Orally Active 1 capsule ER Once a day with food Ropinirole HCl ND 90012392268 2 MG Orally Active 1 tablet Once a day Albuterol Sulfate ND 57465371866 (2.5 MG/3ML) Activ e 3 ml as 0.083% needed Inhalation Three times a day Spironolactone ND 92957680654 25 MG Orally Active 1 tablet Once a day Clonazepam ND 79514614179 0.5 MG Orally Active 1 t ablet Once a day at bedtime Ropinirole HCl ND 61215820539 2 MG Orally Active 1 tablet 1 Once a day to 3 hours before bedtime Losartan ND 09262577830 100 MG Orally Active 1 tab let Potassium Once a day Verapamil HCl ER ND 38213390817 120 MG Orally Activ e 1 tablet Once a day Diclofenac Sodium ND 01303753381 1 % Transdermal Ac tive as Twice a day directed Gabapentin ND 75186996905 300 MG Orally Active 1 c apsule Once a day Hydrocodone-Aceta ND 84466965134 7.5-325 MG Active 1 tablet minophen Orally PRN as needed Breo Ellipta [facility] 16413397777 100-25 MCG/INH Active 1 puff Inhalation Once a day Losartan ND 40611512028 100 MG Orally Active 1 tab let Potassium Once a day Metformin HCl ND 28168409955 1000 MG Orally Active 1/2 tablet Once a day Atorvastatin ND 81672737063 20 MG Orally Active 1 tablet Calcium Once a day Breo Ellipta ND 83759912500 100-25 MCG/INH Active 1 puff Inhalation Twice a day Pantoprazole ND 66212379132 40 MG Orally Active 1 tablet Sodium Once a day Levothyroxine ND 76400545404 100 MCG Orally Active 1 tablet Sodium Once a day on an empty stomach in the morning CPAP Machine ND 0 max pressure 9 Active nigh tly cm of water Amitriptyline HCl ND 11878329309 75 MG Orally Activ e 1 tablet Once a day at bedtime Sertraline HCl ND 51352368224 50 MG Orally Active 1 tablet Once a day Pantoprazole ND 83314276413 40 MG Orally Active 1 tablet Sodium Once a day Results No Known Results Summary Purpose eClinicalWorks Submission
--- OUTSIDE RECORDS SUMMARY | 2020-03-03 20:05 | XMS REPORT | Summary of Care ---
:1960 Author Organization [facility] Address [address] [place] [address] Care Team Providers Name Role Phone Rey Farris Primary Care Provider Reason for Visit Reason Comments Refill Request Encounter Details Date Type Department Care Team Description 02/18/2020 Refill [facility] Orthopaedic Steven Bansal, PAC Refill Request Surgery- [place] [address], [place] [address] [place] [address] [phone] Allergies Active Allergy Reactions Severity Noted Date Comments Bupropion Hcl Itching 04/06/2016 Diclofenac Sodium Swelling 01/07/2020 redness Latex, Natural Rubber Itching Medium 01/08/2019 Ketorolac Tromethamine Anaphylaxis 08/04/2015 Bupropion Unknown - See comments 08/04/2015 Zolpidem Unknown - See comments 04/06/2016 Sleep walk documented as of this encounter (statuses as of 02/18/2020) Medications Medication Sig Dispensed Refills Start Date End Date Status verapamil (VERELAN Take 120 mg by 0 Active PM) 120 mg 24 hr mouth at capsule bedtime. BREO ELLIPTA 100-25 Inhale 1 Puff 0 03/25/2016 Active mcg/dose DsDv as needed. metFORMIN 500 mg Take 500 mg [...] tablet mouth daily. HYDROcodone-acetamin Take 1 tablet 0 11/27/2019 Active ophen 7.5-325 mg per by mouth 3 tablet (three) times daily as needed. levothyroxine 100 Take 100 mcg 0 10/14/2019 Active mcg tablet by mouth every morning. losartan 100 mg Take 100 mg by 0 10/04/2019 Active tablet mouth daily. QUEtiapine 100 mg Take 100 mg by 0 11/25/2019 Active tablet mouth at bedtime. venlafaxine XR 75 mg Take 75 mg by 0 10/29/2019 Active 24 hr capsule mouth every evening. acetaminophen-codein Take 2 tablets 40 tablet 0 12/11/2019 Active e (TYLENOL-CODEINE by mouth every #3) 300-30 mg 4 (four) hours tabletIndications: as needed for Status post total Pain (scale left knee 4-6) or Pain replacement (scale 7-10) (Maximum 10 tablets a day). DICLOFENAC SODIUM 1 APPLY TO 100 g 0 02/18/2020 Active % gelIndications: AFFECTED AREA Status post total TWICE A DAY knee replacement, NEEDED FOR left PAIN APPLY 2 GRAMS DO NOT EXCEED 4 GRAMS IN A DAY DICLOFENAC SODIUM 1 APPLY TO 100 g 0 01/24/2020 Discontinued % gelIndications: AFFECTED AREA 0 Status post total TWICE A DAY knee replacement, NEEDED FOR left PAIN APPLY 2 GRAMS DO NOT EXCEED 4 GRAMS IN A DAY documented as of this encounter (statuses as of 02/18/2020) Active Problems Problem Noted Date Primary osteoarthritis of left knee 12/05/2019 Overview: Added automatically from request for michela sky [id number] Total knee replacement status 01/07/2019 Primary osteoarthritis of right knee 01/02/2019 Overview: Added automatically from request for michela sky [id number] Hypoxia 04/11/2018 Morbid obesity with body mass index of 40.0-49.9 04/11 Knee pain, left 01/18/2016 Right knee pain 08/04/2015 documented as of this encounter (statuses as of 02/18/2020) Immunizations Name Administration Dates Next Due Pneumococcal [...] Treatment Date Type Specialty Care Team Description 02/24/2020 Ancillary Visit Physical Therapy Sedrick Calabrese MD [address] [place] [phone] Arelis Mancia, PT [address] [place] [phone] Health Maintenance Due Date Last Done Comments HEPATITIS C (HCV) SCREEN 1960 DTaP,Tdap,and Td Vaccines (1 - 12/24/1970 Tdap) PAP SMEAR 12/24/1980 Breast Cancer Screening 1999 (MAMMOGRAM) COLONOSCOPY 12/24/2009 Zoster Recombinant Vaccine 12/24/2009 (SHINGRIX) (1 of 2) INFLUENZA VACCINE (#1) 2019 PNEUMOCOCCAL 0-64 YEARS COMBINED Aged Out 01/08/2019 No longer eligible based on SERIES patient's age to complete this topic documented as of this encounter Implants Implanted Type Area Hvac Estimator Device Shelf Model / Identifier Expiration Serial / Date Lot Bone Cement Palacos R Radiopaque Ayaan #[id number] - [id number] CEMENT Right: Ayaan 08/23/2019 [id number] / Implanted: Qty: 1 on 01/07/2019 by Sedrick Kendall MD at [facility] Knee 8 [id number] / [id number] Cement Simplex Hv #6194-1-001 - Sn/A CEMENT Left: Dixon 01/20/2021 6194-1-001 / Implanted: Qty: 1 on 12/09/2019 by Sedrick Kendall MD at [facility] Knee N /A / [id number] Bearing Tibial 10 X 63/67 Mm #[id number] - [id number] KNEE Right: Bio met 08/24/2023 [id number] / Implanted: Qty: 1 on 01/07/2019 by Sedrick Kendall MD at [facility] Knee 9 [id number] / [id number] Patella 8 X 31mm Biomet#183797 - [id number] KNEE Right: Biomet 08/29/2023 [id number] / Implanted: Qty: 1 on 01/07/2019 by Sedrick Kendall MD at [facility] Knee 1 38926 / [id number] Cr Femoral Right KNEE Right: Biomet 01/21/2028 18 3042 / Implanted: Qty: 1 on 01/07/2019 by Sedrick Kendall MD at [facility] Knee 1 48499 / [id number] Component Patella 32mm Vera 8mm Biomet #814489 - [id number] Other Le ft: Biomet 11/11/2024 [id number] / Implanted: Qty: 1 on 12/09/2019 by Sedrick Kendall MD at [facility] Implant Knee 1 23287 / [id number] Adc Plate Tibial Cruciate 67 Mm - [id number] PLATE Right: Biomet 05/03/2028 [id number] / Implanted: Qty: 1 on 01/07/2019 by Sedrick Kendall MD at [facility] Knee J [id number] / [id number] Screw Acetabular 6.5mm Vera 30mml Cancellous Ayaan #294853 - [id number] Left: Biomet 09/02/2029 064935 / Implanted: Qty: 4 on 12/09/2019 by Sedrick Kendall MD at [facility] Knee 1 [id number] / [id number] Component Tibial Tray Cementless 67mml Biomet #127656 - [id number] Left: Biomet 03/20/2024 [id number] / Implanted: Qty: 1 on 12/09/2019 by Sedrick Kendall MD at [facility] Knee 1 64690 / [id number] Bearing Tibial 10 X 63/67 Mm #795583 - [id number] Left: Bio met 07/01/2024 298284 / Implanted: Qty: 1 on 12/09/2019 by Sedrick Kendall MD at [facility] Knee 1 18734 / [id number] Adc Femur 57.5 Mm Left - [id number] Left: Biomet 02/11/2029 520753 / Implanted: Qty: 1 on 12/09/2019 by Sedrick Kendall MD at [facility] Knee 1 23189 / [id number] Stem Finned Primary 40mm Biomet #148597 - [id number] Left: Biomet 11/19/2029 216505 / Implanted: Qty: 1 on 12/09/2019 by Sedrick Kendall MD at [facility] Knee 1 58020 / [id number] documented as of this encounter Results Not on filedocumented in this encounter Visit Diagnoses Diagnosis Status post total knee replacement, left documented in this encounter Insurance Payer Benefit Plan / Subscriber ID Effective Dates Phone Addre ss Type Group [facility] [id number] 2018-Presen Medicare Adv PLUS PLUS t HMO CLASSIC/VALUE documented as of this encounter
--- OUTSIDE RECORDS SUMMARY | 2020-03-03 20:05 | XMS REPORT | Summary of Care ---
:1960 Author Organization [facility] Address [address] [place] [address] Care Team Providers Name Role Phone Rey Farris Primary Care Provider Reason for Visit Reason Comments Re-evaluation (Routine) Status Reason Specialty Diagnoses / Referred By Referred To Procedures Contact Contact Authorized Physical Therapy Diagnoses Presence of left artificial knee joint Weakness Unspecified abnormalities of gait and mobility Other abnormalities of gait and mobility Reuben Bansal, Gómez Fontanez er, Procedures VT THERAPEUTIC EXERCISES VT NEUROMUSC REEDUCAT,1+ AREAS, EA 15 MIN VT MANUAL THER TECH,1+REGIONS,EA 15 MIN VT THERAPEUT ACTVITY DIRECT PT CONTACT EACH 15 MIN FOLLOW-UP 40 PAC PT [address] [place] [phone] Encounter Details Date Type Department Care Team Description 02/24/2020 Ancillary Visit [facility] Sedrick Calabrese MD [address] [place] [address] Status post total left knee replacement (Primary Dx); Physical Therapy- Arelis Mancia, PT [address] [place] [address] Weakness; [place] Gait abnormality; Professional Office Decrease d muscle strength; Building Decreased range of motion (R OM) of right knee; [address] [facility] Becka marcos; Dr. [address] Aftercare following right kn [place] [phone] Allergies Active Allergy Reactions Severity Noted Date Comments Bupropion Hcl Itching 04/06/2016 Diclofenac Sodium Swelling 01/07/2020 redness Latex, Natural Rubber Itching Medium 01/08/2019 Ketorolac Tromethamine Anaphylaxis 08/04/2015 Bupropion Unknown - See comments 08/04/2015 Zolpidem Unknown - See comments 04/06/2016 Sleep walk documented as of this encounter (statuses as of 02/26/2020) Medications Medication Sig Dispensed Refills Start Date [...] by 0 10/18/2019 Active tablet mouth daily. HYDROcodone-acetaminoph Take 1 tablet by 0 0 Active en 7.5-325 mg per mouth 3 (three) tablet times daily as needed. levothyroxine 100 mcg Take 100 mcg by 0 10/14/2019 Active tablet mouth every morning. losartan 100 mg tablet Take 100 mg by 0 10/04/2019 Active mouth daily. QUEtiapine 100 mg Take 100 [...] 10 tablets a day). DICLOFENAC SODIUM 1 % APPLY TO AFFECTED 100 g 0 02/18/2020 Active gelIndications: Status AREA TWICE A DAY post total knee NEEDED FOR replacement, left PAIN APPLY 2 GRAMS DO NOT EXCEED 4 GRAMS IN A DAY documented as of this encounter (statuses as of 02/26/2020) Active Problems Problem Noted Date Primary osteoarthritis of left knee 12/05/2019 Overview: Added automatically from request for michela sky [id number] Total knee replacement status 01/07/2019 Primary osteoarthritis of right knee 01/02/2019 Overview: Added automatically from request for michela sky [id number] Hypoxia 04/11/2018 Morbid obesity with body mass index of 40.0-49.9 04/11 Knee pain, left 01/18/2016 Right knee pain 08/04/2015 documented as of this encounter (statuses as of 02/26/2020) Immunizations Name Administration Dates Next Due Pneumococcal [...] on filedocumented in this encounter Progress Notes Arelis Mancia, PT - 02/24/2020 1:40 PM CDT Physical Therapy Treatment Date: February 24, 2020 Subjective: L knee pain 5/10. Patient returning to continue PT after Covid 19. 1. Status post total left knee replacement 2. Weakness 3. Gait abnormality 4. Decreased muscle strength 5. Decreased range of motion (ROM) of right knee 6. Poor balance 7. Aftercare following right knee joint replacement surgery Objective: Outpatient PT Treatment Row Name 02/24/20 1400 General General Comments Visit 5 of 12 Activity Tolerance Activity Tolerance Comments AAROM 0-98 Therapeutic Exercise Therapeutic Exercise Activity 1 HS [...] bearing on RLE. Therapeutic Exercise Activity 6 Nu-step: L3 x 6' Modalities Cryotherapy (Minutes\\Location) 8' Assessment: Patient pain level on R knee after PT is 5/10. Patient tolerated PT management during therapeutic exercise with rest due to pain. Plan: Patient to continue with POC focusing on strengthening, ROM, and increasing overall mobility. Arelis Mancia,PT [place] License: [id number] documented in this encounter Plan of Treatment Date Type Specialty Care Team Description 02/28/2020 Ancillary Visit Physical Therapy Claudine Reece, ENTRY WRITER [address] [place] [address] 03/02/2020 Ancillary Visit Physical Therapy Arelis Mancia , PT [address] [place] [address] 03/04/2020 Ancillary Visit Physical Therapy Claudine Reece, ENTRY WRITER [address] [place] [address] Health Maintenance Due Date Last Done Comments HEPATITIS C (HCV) SCREEN 1960 DTaP,Tdap,and Td Vaccines (1 - 12/24/1970 Tdap) PAP SMEAR 12/24/1980 Breast Cancer Screening 1999 (MAMMOGRAM) COLONOSCOPY 12/24/2009 Zoster Recombinant Vaccine 12/24/2009 (SHINGRIX) (1 of 2) INFLUENZA VACCINE (Season Ended) 2020 PNEUMOCOCCAL 0-64 YEARS COMBINED Aged Out 01/08/2019 No longer eligible based on SERIES patient's age to complete this topic documented as of this encounter Implants Implanted Type Area Plate Setter Device Shelf Model / Identifier Expiration Serial / Date Lot Bone Cement Palacos R Radiopaque Ayaan #[id number] - [id number] CEMENT Right: Ayaan 08/23/2019 [id number] / Implanted: Qty: 1 on 01/07/2019 by Sedrick Kendall MD at [facility] Knee 8 [id number] / [id number] Cement Simplex Hv #6194-1-001 - Sn/A CEMENT Left: [place] 01/20/2021 6194-1-001 / Implanted: Qty: 1 on 12/09/2019 by Sedrick Kendall MD at [facility] Knee N /A / [id number] Bearing Tibial 10 X 63/67 Mm #638980 - [id number] KNEE Right: Bio met 08/24/2023 430678 / Implanted: Qty: 1 on 01/07/2019 by Sedrick Kendall MD at [facility] Knee 9 13361 / [id number] Patella 8 X 31mm Biomet#588163 - [id number] KNEE Right: Biomet 08/29/2023 965132 / Implanted: Qty: 1 on 01/07/2019 by Sedrick Kendall MD at [facility] Knee 1 69922 / [id number] Cr Femoral Right KNEE Right: Biomet 01/21/2028 18 3042 / Implanted: Qty: 1 on 01/07/2019 by Sedrick Kendall MD at [facility] Knee 1 68050 / [id number] Component Patella 32mm Vera 8mm Biomet #777263 - [id number] Other Le ft: Biomet 11/11/2024 769938 / Implanted: Qty: 1 on 12/09/2019 by Sedrick Kendall MD at [facility] Implant Knee 1 15562 / [id number] Adc Plate Tibial Cruciate 67 Mm - [id number] PLATE Right: Biomet 05/03/2028 759800 / Implanted: Qty: 1 on 01/07/2019 by Sedrick Kendall MD at [facility] Knee J [id number] / [id number] Screw Acetabular 6.5mm Vera 30mml Cancellous Ayaan #666915 - [id number] Left: Biomet 09/02/2029 764723 / Implanted: Qty: 4 on 12/09/2019 by Sedrick Kendall MD at [facility] Knee 1 42736 / [id number] Component Tibial Tray Cementless 67mml Biomet #395113 - [id number] Left: Biomet 03/20/2024 801877 / Implanted: Qty: 1 on 12/09/2019 by Sedrick Kendall MD at [facility] Knee 1 00012 / [id number] Bearing Tibial 10 X 63/67 Mm #137471 - [id number] Left: Bio met 07/01/2024 829475 / Implanted: Qty: 1 on 12/09/2019 by Sedrick Kendall MD at [facility] Knee 1 67232 / [id number] Adc Femur 57.5 Mm Left - [id number] Left: Biomet 02/11/2029 287542 / Implanted: Qty: 1 on 12/09/2019 by Sedrick Kendall MD at [facility] Knee 1 24508 / [id number] Stem Finned Primary 40mm Biomet #096569 - [id number] Left: Biomet 11/19/2029 444721 / Implanted: Qty: 1 on 12/09/2019 by Sedrick Kendall MD at [facility] Knee 1 31982 / [id number] documented as of this encounter Results Not [...] ss Type Group [facility] [id number] 2018-Presen Medicare Adv PLUS PLUS t HMO CLASSIC/VALUE documented as of this encounter
--- OUTSIDE RECORDS SUMMARY | 2020-03-03 20:05 | XMS REPORT | Summary of Care ---
:1960 Author Organization [facility] Address [address] [place] [address] Care Team Providers Name Role Phone Rey Farris Primary Care Provider Reason for Visit Reason Comments Refill Request Encounter Details Date Type Department Care Team Description 01/24/2020 Refill [facility] Orthopaedic Steven Bansal, PAC Refill Request Surgery- [place] [address], [place] [address] [address] [place] [address] [phone] Allergies Active Allergy Reactions Severity Noted Date Comments Bupropion Hcl Itching 04/06/2016 Diclofenac Sodium Swelling 01/07/2020 redness Latex, Natural Rubber Itching Medium 01/08/2019 Ketorolac Tromethamine Anaphylaxis 08/04/2015 Bupropion Unknown - See comments 08/04/2015 Zolpidem Unknown - See comments 04/06/2016 Sleep walk documented as of this encounter (statuses as of 01/24/2020) Medications Medication Sig Dispensed Refills Start Date [...] 1 APPLY TO 100 g 0 01/24/2020 Active % gelIndications: AFFECTED AREA Status post total TWICE A DAY knee replacement, NEEDED FOR left PAIN APPLY 2 GRAMS DO NOT EXCEED 4 GRAMS IN A DAY Diclofenac Sodium 1 Apply to 100 g 0 01/01/2020 Discontinued % gelIndications: area(s) 2 0 Status post total (two) times knee replacement, daily as left needed for Pain (scale 4-6) (Apply 2 g do not exceed 4 g in a day). documented as of this encounter (statuses as of 01/24/2020) Active Problems Problem Noted Date Primary osteoarthritis of left knee 12/05/2019 Overview: Added automatically from request for michela jose daniel [id number] Total knee replacement status 01/07/2019 Primary osteoarthritis of right knee 01/02/2019 Overview: Added automatically from request for michela sky [id number] Hypoxia 04/11/2018 Morbid obesity with body mass index of 40.0-49.9 04/11 Knee pain, left 01/18/2016 Right knee pain 08/04/2015 documented as of this encounter (statuses as of 01/24/2020) Immunizations Name Administration Dates Next Due Pneumococcal [...] Date Type Specialty Care Team Description 01/27/2020 Ancillary Visit Physical Therapy Arelis Mancia , PT [address] [place] [address] 01/27/2020 Office Visit Orthopedic Surgery Reuben Bansal, PAC [address] [place] [phone] 01/29/2020 Ancillary Visit Physical Therapy Claudine Reece, SENIOR CONTRACTS ADMINISTRATOR [address] [place] [address] Health Maintenance Due Date Last Done Comments [...] of this encounter Implants Implanted Type Area Dope Maintenance Worker Device Shelf Model / Identifier Expiration Serial / Date Lot Bone Cement Palacos R Radiopaque Ayaan #[id number] - [id number] CEMENT Right: Ayaan 08/23/2019 [id number] / Implanted: Qty: 1 on 01/07/2019 by Sedrick Kendall MD at [facility] Knee 8 [id number] / [id number] Cement Simplex Hv #6194-1-001 - Sn/A CEMENT Left: Dixon 01/20/2021 6194-1-001 / Implanted: Qty: 1 on 12/09/2019 by Sedrick Kendall MD at [facility] Knee N /A / [id number] Bearing Tibial 10 X 63/67 Mm #028759 - [id number] KNEE Right: Bio met 08/24/2023 305510 / Implanted: Qty: 1 on 01/07/2019 by Sedrick Kendall MD at [facility] Knee 9 28665 / [id number] Patella 8 X 31mm Biomet#253806 - [id number] KNEE Right: Biomet 08/29/2023 839024 / Implanted: Qty: 1 on 01/07/2019 by Sedrick Kendall MD at [facility] Knee 1 14554 / [id number] Cr Femoral Right KNEE Right: Biomet 01/21/2028 18 3042 / Implanted: Qty: 1 on 01/07/2019 by Sedrick Kendall MD at [facility] Knee 1 62513 / [id number] Component Patella 32mm Vera 8mm Biomet #816989 - [id number] Other Le ft: Biomet 11/11/2024 270461 / Implanted: Qty: 1 on 12/09/2019 by Sedrick Kendall MD at [facility] Implant Knee 1 24421 / [id number] Adc Plate Tibial Cruciate 67 Mm - [id number] PLATE Right: Biomet 05/03/2028 648040 / Implanted: Qty: 1 on 01/07/2019 by Sedrick Kendall MD at [facility] Knee J [id number] / [id number] Screw Acetabular 6.5mm Vera 30mml Cancellous Ayaan #610782 - [id number] Left: Biomet 09/02/2029 668027 / Implanted: Qty: 4 on 12/09/2019 by Sedrick Kendall MD at [facility] Knee 1 29089 / [id number] Component Tibial Tray Cementless 67mml Biomet #783962 - [id number] Left: Biomet 03/20/2024 719725 / Implanted: Qty: 1 on 12/09/2019 by Sedrick Kendall MD at [facility] Knee 1 53549 / [id number] Bearing Tibial 10 X 63/67 Mm #052450 - [id number] Left: Bio met 07/01/2024 070685 / Implanted: Qty: 1 on 12/09/2019 by Sedrick Kendall MD at [facility] Knee 1 33915 / [id number] Adc Femur 57.5 Mm Left - [id number] Left: Biomet 02/11/2029 063474 / Implanted: Qty: 1 on 12/09/2019 by Sedrick Kendall MD at [facility] Knee 1 84785 / [id number] Stem Finned Primary 40mm Biomet #490052 - [id number] Left: Biomet 11/19/2029 762053 / Implanted: Qty: 1 on 12/09/2019 by Sedrick Kendall MD at [facility] Knee 1 63259 / [id number] documented as of this encounter Results Not on filedocumented in this encounter Visit Diagnoses Diagnosis Status post total knee replacement, left documented in this encounter Insurance Payer Benefit Plan / Subscriber ID Effective Dates Phone Addre ss Type Group [facility] [id number] 2018-Presen Medicare Adv PLUS PLUS t HMO CLASSIC/VALUE documented as of this encounter
--- OUTSIDE RECORDS SUMMARY | 2020-03-03 20:06 | XMS REPORT | Summary of Care ---
:1960 Author Organization [facility] Address [address] [place] [id number] Care Team Providers Name Role Phone Rey Farris Primary Care Provider Reason for Visit Reason Comments Follow-up (Routine) Status Reason Specialty Diagnoses / Referred By Referred To Procedures Contact Contact Authorized Physical Therapy Diagnoses Presence of left artificial knee joint Weakness Unspecified abnormalities of gait and mobility Other abnormalities of gait and mobility Reuben Bansal, Gómez Fontanez er, Procedures TN THERAPEUTIC EXERCISES TN NEUROMUSC REEDUCAT,1+ AREAS, EA 15 MIN TN MANUAL THER TECH,1+REGIONS,EA 15 MIN TN THERAPEUT ACTVITY DIRECT PT CONTACT EACH 15 MIN FOLLOW-UP 40 PAC PT [address] [place] [address] X [id number] Encounter Details Date Type Department Care Team Description 02/28/2020 Ancillary Visit [facility] Sedrick Calabrese MD [address] [place] [address] Status post total left knee replacement (Primary Dx); Physical Therapy- Claudine Reece, TIN CONTAINER STRAIGHTENER [address] [place] [address] Weakness; Vaughn Gait abnormality; Professional Office Decrease d muscle strength; Building Decreased range of motion (R OM) of right knee [address] [facility] [address] [place] [address] Allergies Active Allergy Reactions Severity Noted Date Comments Bupropion Hcl Itching 04/06/2016 Diclofenac Sodium Swelling 01/07/2020 redness Latex, Natural Rubber Itching Medium 01/08/2019 Ketorolac Tromethamine Anaphylaxis 08/04/2015 Bupropion Unknown - See comments 08/04/2015 Zolpidem Unknown - See comments 04/06/2016 Sleep walk documented as of this encounter (statuses as of 02/28/2020) Medications Medication Sig Dispensed Refills Start Date [...] as of this encounter (statuses as of 02/28/2020) Active Problems Problem Noted Date Primary osteoarthritis of left knee 12/05/2019 Overview: Added automatically from request for michela sky [id number] Total knee replacement status 01/07/2019 Primary osteoarthritis of right knee 01/02/2019 Overview: Added automatically from request for michela sky [id number] Hypoxia 04/11/2018 Morbid obesity with body mass index of 40.0-49.9 04/11 Knee pain, left 01/18/2016 Right knee pain 08/04/2015 documented as of this encounter (statuses as of 02/28/2020) Immunizations Name Administration Dates Next Due Pneumococcal [...] in this encounter Progress Notes Claudine Reece, TIN CONTAINER STRAIGHTENER - 02/28/2020 1:40 PM CDT Physical Therapy Treatment Date: February 28, 2020 Subjective: Pt has no c/o pain, she states it just feels tight. 1. Status post total left knee replacement 2. Weakness 3. Gait abnormality 4. Decreased muscle strength 5. Decreased range of motion (ROM) of right knee Objective: Outpatient PT Treatment Row Name 02/28/20 1400 General Visit Number 6 Chart Reviewed Yes Family/Caregiver Present No General Comments Visit 6 of 12 Activity Tolerance Activity Tolerance Comments AAROM 0-101 Pain Assessment Pain Assessment 0-10 Pain Location Knee Pain Orientation Left Pain Descriptors Tightness Therapeutic Exercise Therapeutic Exercise Activity 1 HS stretch 3x30", Heel slides 5" x2', Quad sets 5" x2', seated flex stretch 3x30" Therapeutic Exercise Activity 2 Supine: SAQ's x20, SLR's x15 Therapeutic Exercise Acitivity 3 Hip adduction with ball x20, Hip abduction with L3 Tband x20 Therapeutic Exercise Activity 4 Seated: LAQ's x20, Hip flex x20, HS curls with Tband L3 x20 Therapeutic Exercise Activity 5 B Standing hip flex, hip ext, hip abd, and HS curls - x 10 ea withweight bearing on RLE. Therapeutic Exercise Activity 6 Nu-step: L3 x 6' Modalities Cryotherapy (Minutes\\Location) 8' HEP: Continue HEP as instructed. Assessment: Pt exhibits improved strength and should be able to tolerate a weight at next session. She required assistance with keeping track of reps and staying on task. Pt tolerated treatment fair. Plan: Continue with POC 2x 12 sessions to decrease pain, increase ROM, improve strength and functional mobility. Will add/advance exercises as able. Claudine Reece PTA [place] Lic#[id number] Supervised by: Gloria Yates PT [facility] Dept. [phone] (phone) documented in this encounter Plan of Treatment Date Type Specialty Care Team Description 03/02/2020 Ancillary Visit Physical Therapy Arelis Mancia , PT [address] [place] [id number] 03/04/2020 Ancillary Visit Physical Therapy Claudine Reece PTA [address] [place] [address] Health Maintenance Due Date Last Done Comments [...] of this encounter Implants Implanted Type Area Leadership Coach Device Shelf Model / Identifier Expiration Serial / Date Lot Bone Cement [place] Ayaan #[id number] - [id number] CEMENT Right: Ayaan 08/23/2019 [id number] / Implanted: Qty: 1 on 01/07/2019 by Sedrick Kendall MD at [facility] Knee 8 [id number] / [id number] Cement Simplex Hv #[id number] - Sn/A CEMENT Left: [place] 01/20/2021 [id number] / Implanted: Qty: 1 on 12/09/2019 by Sedrick Kendall MD at [facility] Knee N /A / [id number] Bearing Tibial 10 X 63/67 Mm #[id number] - [id number] KNEE Right: Bio met 08/24/2023 [id number] / Implanted: Qty: 1 on 01/07/2019 by Sedrick Kendall MD at [facility] Knee 9 [id number] / [id number] Patella 8 X 31mm Biomet#[id number] - [id number] KNEE Right: Biomet 08/29/2023 [id number] / Implanted: Qty: 1 on 01/07/2019 by Sedrick Kendall MD at [facility] Knee 1 [id number] / [id number] Cr Femoral Right KNEE Right: Biomet 01/21/2028 [id number] / Implanted: Qty: 1 on 01/07/2019 by Sedrick Kendall MD at [facility] Knee 1 [id number] / [id number] Component Patella 32mm Vera 8mm Biomet #[id number] - [id number] Other Le ft: Biomet 11/11/2024 [id number] / Implanted: Qty: 1 on 12/09/2019 by Sedrick Kendall MD at [facility] Implant Knee 1 [id number] / [id number] Adc Plate Tibial Cruciate 67 Mm - [id number] PLATE Right: Biomet 05/03/2028 [id number] / Implanted: Qty: 1 on 01/07/2019 by Sedrick Kendall MD at [facility] Knee J [id number] / [id number] Screw Acetabular 6.5mm Vera 30mml Cancellous Ayaan #[id number] - [id number] Left: Biomet 09/02/2029 [id number] / Implanted: Qty: 4 on 12/09/2019 by Sedrick Kendall MD at [facility] Knee 1 [id number] / [id number] Component Tibial Tray Cementless 67mml Biomet #[id number] - [id number] Left: Biomet 03/20/2024 [id number] / Implanted: Qty: 1 on 12/09/2019 by Sedrick Kendall MD at [facility] Knee 1 [id number] / [id number] Bearing Tibial 10 X 63/67 Mm #[id number] - [id number] Left: Bio met 07/01/2024 [id number] / Implanted: Qty: 1 on 12/09/2019 by Sedrick Kendall MD at [facility] Knee 1 [id number] / [id number] Adc Femur 57.5 Mm Left - [id number] Left: Biomet 02/11/2029 [id number] / Implanted: Qty: 1 on 12/09/2019 by Sedrick Kendall MD at [facility] Knee 1 [id number] / [id number] Stem Finned Primary 40mm Biomet #[id number] - [id number] Left: Biomet 11/19/2029 [id number] / Implanted: Qty: 1 on 12/09/2019 by Sedrick Kendall MD at [facility] Knee 1 [id number] / [id number] documented as of this encounter Results Not on filedocumented in this encounter Visit Diagnoses Diagnosis Status post total left knee replacement - Primary Weakness Other malaise and fatigue Gait abnormality Abnormality of gait Decreased muscle strength Muscle weakness (generalized) Decreased range of motion (ROM) of right knee documented in this encounter Insurance Payer Benefit Plan / Subscriber ID Effective Dates Phone Addre ss Type Group CAIO [place]AY [id number] 2018-Presen Medicare Adv PLUS PLUS t HMO CLASSIC/VALUE documented as of this encounter
[2020-03-03 21:17] LABS: Absolute Lymphocytes (CBC) 3.5 K/uL (0.7-4.9); Basophils % 1.9 % (0-1.3); Hematocrit 39.4 % (36.0-45.0); Lymphocytes % 27.7 % (15.3-44.8); MPV 8.2 fL (7.6-11.3); RBC Red Blood Cell Count 4.55 M/uL (3.86-4.86)
[2020-03-03 21:33] LABS: BUN Blood Urea Nitrogen 16 mg/dL (7-18); Bicarbonate 29 mmol/L (21-32); Glucose Level 75 mg/dL (74-106); NT PRO-BNP 119 pg/mL (<125); Potassium 4.2 mmol/L (3.5-5.1); Sodium Level 140 mmol/L (136-145); Troponin (Emerg Dept Use Only) < 0.02 ng/mL (0.0-0.045)
[2020-03-03 21:35] LABS: Blood Morphology Comment NOT SEEN (NOT SEEN); Platelet Estimate ADEQ; Urine White Blood Cell Casts OK
--- NOTE | 2020-03-03 21:39 | RAD REPORT ---
EXAM DESCRIPTION: RAD - Chest Pa And Lat (2 Views) - 03/03/2020 8:37 pm CLINICAL HISTORY: Cough;COPD;Dyspnea COMPARISON: Limited February 2015 and December 2014 comparison TECHNIQUE: Frontal and lateral views of the chest were obtained. FINDINGS: The lungs are normal volume. No peripheral mass or consolidation. Lung markings are promin ent. 2015 study or significantly limited. Lateral view on this examination is limited. Markings are not clearly different. Heart size is normal and central vasculature is within normal limits. No pleu ral effusion or pneumothorax seen. No acute bony finding noted. No aortic abnormality. IMPRESSION: No acute cardiopulmonary finding confirmed. Prominent baseline interstitial pattern, particularly the left base, could potentially mask early kaitlin ma or infiltrate.
--- NOTE | 2020-03-03 22:10 | EDPHYS ---
Physician Documentation [facility] Name: Eliza Hill Age: 59 yrs Sex: Female : 1960 Arrival Date: 03/03/2020 Time: 19:43 Bed 23 Private MD: ED Physician Adin Anand HPI: 03/03 20:08 This 59 yrs old Female presents to ER via Ambulatory with complaints of rn Shortness Of Breath, Cough, Chills. 20:08 The patient has shortness of breath at rest, with light activity. rn 20:08 Onset: The symptoms/episode began/occurred yesterday. Duration: The symptoms are rn intermittent. The patient's shortness of breath is aggravated by exertion, light activity, is alleviated by nothing. Severity of symptoms: At their worst the symptoms were mild in the emergency department the symptoms are unchanged. The patient has experienced similar episodes in the past. Reports "feels like my bronchitis again", reports productive cough of yellow sputum, no blood, + chills, called pcp and told to come here. No sick contacts. Doesn't feel really sick. No chest pain/abd pain. No trauma. No unilateral leg swelling. . Historical: - Allergies: 19:57 Tramadol HCl; ca1 19:57 Wellbutrin; ca1 - Home Meds: 19:57 atorvastatin Oral [Active]; levothyroxine oral [Active]; losartan Oral [Active]; ca1 - PMHx: 19:57 Arthritis; Chronic pain; COPD; Diabetes - NIDDM; Hypertension; Hypothyroidism; ca1 Osteoporosis; - PSHx: 19:57 Hysterectomy; Knee surgery; ca1 - Immunization history:: Adult Immunizations up to date, . - Social history:: Smoking status: Patient/guardian denies using tobacco, the patient reports quitting approximately 10 years ago. - Family history:: not pertinent. - Hospitalizations: : No recent hospitalization is reported. ROS: 20:08 Constitutional: Negative for fever, + chills Eyes: Negative for injury, pain, redness, rn and discharge, Cardiovascular: Negative for chest pain, palpitations, and edema, Respiratory: + sob and productive cough Abdomen/GI: Negative for abdominal pain, nausea, vomiting, diarrhea, and constipation, Back: Negative for injury and pain, MS/Extremity: Negative for injury and deformity, Skin: Negative for injury, rash, and discoloration, Neuro: Negative for headache, weakness, numbness, tingling, and seizure. Exam: 20:08 Constitutional: This is a well developed, well nourished patient who is awake, alert, rn and in no acute distress. Laughing and joking. Head/Face: Normocephalic, atraumatic. ENT: No stridor Cardiovascular: Regular rate and rhythm. No pulse deficits. Respiratory: Clear bilateral breath sounds. No increased work of breathing, no retractions or nasal flaring. Skin: Warm, dry MS/ Extremity: Pulses equal, no cyanosis. Neurovascular intact. Full, normal range of motion. Equal circumference. Neuro: Awake and alert, GCS 15, oriented to person, place, time, and situation. Motor strength 5/5 in all extremities. Sensory grossly intact. Normal gait. 21:23 ECG was reviewed by the Attending Physician. rn Vital Signs: 19:51 BP 118 / 56; Pulse 78; Resp 19 S; Temp 97.4(TE); Pulse Ox 100% on R/A; Weight 99.79 kg ca1 (R); Height 5 ft. 2 in. (157.48 cm) (R); 22:00 BP 116 / 66; Pulse 72; Resp 16; Pulse Ox 100% on R/A; Pain 0/10; ls4 19:51 Body Mass Index 40.24 (99.79 kg, 157.48 cm) ca1 MDM: 19:58 Patient medically screened. rn 22:06 Differential diagnosis: Bronchitis Chronic Obstructive Pulmonary Disease pneumonia, rn reactive airway disease, COVID-19, viral syndrome. Data reviewed: vital signs, nurses notes, lab test result(s), radiologic studies, plain films, and as a result, I will discharge patient. Test interpretation: by ED physician or midlevel provider: plain radiologic studies, CXR neg for pneumonia or pneumothorax. Counseling: I had a detailed discussion with the patient and/or guardian regarding: the historical points, exam findings, and any diagnostic results supporting the discharge/admit diagnosis, lab results, radiology results, the need for outpatient follow up, to return to the emergency department if symptoms worsen or persist or if there are any questions or concerns that arise at home. Special discussion: I discussed with the patient/guardian in detail that at this point there is no indication for admission to the hospital. It is understood, however, that if the symptoms persist or worsen the patient needs to return immediately for re-evaluation. ED course: No oxygen requirement, slight elevation of wbc, no pneumonia on CXR, will treat with steroids and abx given COPD and change in sputum with subjective chills, will also refill albuterol nebs. . 03/03 20:07 Order name: Blood Culture Adult (2) rn 03/03 20:07 Order name: BMP; Complete Time: 21:49 03/03 20:07 Order name: CBC with Diff; Complete Time: 21:49 03/03 20:07 Order name: NT PRO-BNP; Complete Time: 21:49 03/03 20:07 Order name: Troponin (emerg Dept Use Only); Complete Time: :49 03/03 20:08 Order name: Flu; Complete Time: 21:49 03/03 20:07 Order name: XRAY Chest Pa And Lat (2 Views); Complete Time: 21:49 03/03 20:07 Order name: EKG; Complete Time: 20: 03/03 20:08 Order name: Strep; Complete Time: :49 03/03 20:08 Order name: Procalcitonin 03/03 21:35 Order name: CBC Smear Scan; Complete Time: :49 EDMD 03/03 21:37 Order name: Throat Culture [facility] 03/03 21:58 Order name: COVID-19 03/03 20:08 Order name: Cardiac monitoring; Complete Time: 21: 03/03 20:08 Order name: EKG - Nurse/Tech; Complete Time: 21: 03/03 20:08 Order name: IV Saline Lock; Complete Time: : 03/03 20:08 Order name: Labs collected and sent; Complete Time: : 03/03 20:08 Order name: O2 Per Protocol; Complete Time: : 03/03 20:08 Order name: O2 Sat Monitoring; Complete Time: 21:06 rn EC:23 Rate is 76 beats/min. Rhythm is regular. QRS [place] is Normal. PA interval is normal. QRS rn interval is normal. QT interval is normal. No Q waves. T waves are Normal. No ST changes noted. Clinical impression: Normal ECG. Interpreted by me. Reviewed by me. Administered Medications: 22:42 Drug: Zithromax 500 mg Route: PO; ls4 22:52 Follow up: Response: No adverse reaction ls4 Disposition: 03/03/20 22:09 Discharged to Home. Impression: Chronic obstructive pulmonary disease with acute lower respiratory infection, Bronchitis, not specified as acute or chronic. - Condition is Stable. - Discharge Instructions: Acute Bronchitis, Adult, Chronic Obstructive Pulmonary Disease Exacerbation. - Prescriptions for Prednisone 20 mg Oral Tablet - take 3 tablet by ORAL route once daily for 5 days; 15 tablet. Albuterol Sulfate 2.5 mg /3 mL (0.083 %) Inhalation Solution for Nebulization - inhale 1 unit by NEBULIZATION route every 8 hours As needed; 1 box. Zithromax Z- Rey 250 mg Oral Tablet - take 1 tablet by ORAL route as directed for 5 days Day 1 - take two (2) tablets one time. Day 2, 3, 4 , 5 take one (1) tablet once daily.; 6 tablet. - Medication Reconciliation Form, Thank You Letter, Antibiotic Education, Prescription Opioid Use form. - Follow up: Private Physician; When: As needed; Reason: Recheck today's complaints, Re-evaluation by your physician. - Problem is new. - Symptoms have improved. Signatures: Dispatcher [employer] EDMS Adin Anand MD MD rn Stewart, Lisa, RN RN ls4 Morena Hughes RN RN ca1 Corrections: (The following items were deleted from the chart) 23:01 22:09 03/03/2020 22:09 Discharged to Home. Impression: Chronic obstructive pulmonary ls4 disease with acute lower respiratory infection; Bronchitis, not specified as acute or chronic. Condition is Stable. Forms are Medication Reconciliation Form, Thank You Letter, Antibiotic Education, Prescription Opioid Use. Follow up: Private Physician; When: As needed; Reason: Recheck today's complaints, Re-evaluation by your physician. Problem is new. Symptoms have improved. rn
--- NOTE | 2020-03-03 22:10 | ER ---
Nurse's Notes [facility] Name: Eliza Hill Age: 59 yrs Sex: Female : 1960 Arrival Date: 03/03/2020 Time: 19:43 Bed 23 Private MD: Diagnosis: Chronic obstructive pulmonary disease with acute lower respiratory infection;Bronchitis, not specified as acute or chronic Presentation: 03/03 19:51 Chief complaint: Patient states: "Coughing since last night, chest pains with cough. ca1 After series of coughing spells, my lung would feel tight and I will get out of breath" Reports SOB with exertion since yesterday. Denies fever. Coronavirus screen: Patient reports a cough. Patient reports shortness of breath or difficulty breathing. Patient denies measured and/or subjective temperature greater than 100.4F prior to today's visit. Patient denies travel on a cruise ship or to a country the [facility] currently lists as an affected area. Patient denies contact with known and/or suspected case of COVID-19. Ebola Screen: Patient negative for fever greater than or equal to 101.5 degrees Fahrenheit, and additional compatible Ebola Virus Disease symptoms Patient denies exposure to infectious person. Patient denies travel to an Ebola-affected area in the 21 days before illness onset. No symptoms or risks identified at this time. Initial Sepsis Screen: Does the patient meet any 2 criteria? No. Patient's initial sepsis screen is negative. Does the patient have a suspected source of infection? No. Patient's initial sepsis screen is negative. Risk Assessment: Do you want to hurt yourself or someone else? Patient reports no desire to harm self or others. Onset of symptoms was March 03, 2020. 19:51 Method Of Arrival: Ambulatory ca1 19:51 Acuity: JENNA 3 ca1 Triage Assessment: 19:51 General: Appears in no apparent distress. comfortable, Behavior is calm, cooperative. ls4 Pain: Denies pain. Cardiovascular: Denies chest pain, diaphoresis, fatigue, lightheadedness, nausea, palpitations, shortness of breath, syncope, vomiting, Chest pain is denied. Respiratory: Reports cough that is non-productive, dry, hacking, Airway is patent Respiratory effort is even, unlabored, Respiratory pattern is regular, Breath sounds are clear bilaterally. Onset: The symptoms/episode began/occurred at an unknown time. the patient has mild shortness of breath. GI: No deficits noted. No signs and/or symptoms were reported involving the gastrointestinal system. : No deficits noted. No signs and/or symptoms were reported regarding the genitourinary system. Derm: Skin is pink, warm \\T\\ dry. Musculoskeletal: No deficits noted. Historical: - Allergies: 19:57 Tramadol HCl; ca1 19:57 Wellbutrin; ca1 - Home Meds: 19:57 atorvastatin Oral [Active]; levothyroxine oral [Active]; losartan Oral [Active]; ca1 - PMHx: 19:57 Arthritis; Chronic pain; COPD; Diabetes - NIDDM; Hypertension; Hypothyroidism; ca1 Osteoporosis; - PSHx: 19:57 Hysterectomy; Knee surgery; ca1 - Immunization history:: Adult Immunizations up to date, . - Social history:: Smoking status: Patient/guardian denies using tobacco, the patient reports quitting approximately 10 years ago. - Family history:: not pertinent. - Hospitalizations: : No recent hospitalization is reported. Screenin:31 Abuse screen: Denies threats or abuse. Denies injuries from another. Nutritional ls4 screening: No deficits noted. Tuberculosis screening: No symptoms or risk factors identified. Fall Risk None identified. Assessment: 20:32 Cardiovascular: Denies chest pain, Capillary refill < 3 seconds Patient's skin is warm ls4 and dry. Rhythm is regular Chest pain is denied. 21:56 Reassessment: Patient appears in no apparent distress at this time. Patient and/or ls4 family updated on plan of care and expected duration. Pain level reassessed. Patient is alert, oriented x 3, equal unlabored respirations, skin warm/dry/pink. Respiratory: Airway is patent Respiratory effort is even, unlabored, Respiratory pattern is regular, Breath sounds are clear bilaterally. Breath sounds are diminished in left posterior lower lobe and right posterior lower lobe. 22:30 Reassessment: Patient appears in no apparent distress at this time. Patient and/or ls4 family updated on plan of care and expected duration. Pain level reassessed. Patient is alert, oriented x 3, equal unlabored respirations, skin warm/dry/pink. Vital Signs: 19:51 BP 118 / 56; Pulse 78; Resp 19 S; Temp 97.4(TE); Pulse Ox 100% on R/A; Weight 99.79 kg ca1 (R); Height 5 ft. 2 in. (157.48 cm) (R); 22:00 BP 116 / 66; Pulse 72; Resp 16; Pulse Ox 100% on R/A; Pain 0/10; ls4 19:51 Body Mass Index 40.24 (99.79 kg, 157.48 cm) ca1 ED Course: 19:43 Patient arrived in ED. cl3 19:51 EKG done per protocol. Performed by ED Staff. ls4 19:54 Triage completed. ca1 19:56 Adin Anand MD is Attending Physician. rn 19:57 Arm band placed on right wrist. ca1 20:19 Alesha Jackman RN is Primary Nurse. ls4 20:31 Patient has correct armband on for positive identification. Placed in gown. Bed in low ls4 position. Call light in reach. Side rails up X 1. nurse ortho on. Pulse ox on. NIBP on. Warm blanket given. Pillow given. Verbal reassurance given. 20:31 No provider procedures requiring assistance completed. Inserted saline lock: 20 gauge ls4 in right antecubital area, using aseptic technique. Blood collected. 20:36 XRAY Chest Pa And Lat (2 Views) In Process Unspecified. EDMS 03/04 00:54 IV discontinued, intact, bleeding controlled, No redness/swelling at site. Pressure ls4 dressing applied. Administered Medications: 05 22:42 Drug: Zithromax 500 mg Route: PO; ls4 22:52 Follow up: Response: No adverse reaction ls4 Outcome: 22:09 Discharge ordered by . rn 23:00 Discharged to home ambulatory. ls4 23:00 Condition: good 23:00 Discharge instructions given to patient, Instructed on discharge instructions, follow ls4 up and referral plans. medication usage, Demonstrated understanding of instructions, follow-up care, medications, Prescriptions given X 3. 23:01 Patient left the ED. ls4 Addendum: 03/05/2020 16:27 Addendum: Other pt notified of negative COVID-19 swab results. d m5 Signatures: Dispatcher [employer] EDDC Leonor Sky RN RN dm5 Adin Anand MD MD rn Stewart, Lisa, RN RN ls4 Morena Hughes RN RN ca1 Omari Rosario cl3 Corrections: (The following items were deleted from the chart) 03/03 21:57 20:32 Cardiovascular: Rhythm is regular ls4 ls4
[2020-03-03] MEDS ORDERED: AZITHROMYCIN 250 MG TAB ONE (22:45)
[2020-03-03 23:19] VITALS: BP 118/56; TEMP 97.4; O2SAT 100
--- NOTE | 2020-03-04 07:23 | EKG ---
Test Date: 2020-03-03 Test Time: 20:45:14 Safety Belt Installer: MARLO MEASUREMENT RESULTS: Intervals: Rate: 76 CA: 144 QRSD: 80 QT: 396 QTc: 445 [place]: P: 51 CA: 144 QRS: 21 T: 52 INTERPRETIVE STATEMENTS: Normal sinus rhythm Cannot rule out Anterior infarct, age undetermined Abnormal ECG Compared to ECG 05/09/2018 13:30:36 ST (T wave) deviation no longer present Possible ischemia no longer present Myocardial infarct finding still present Electronically Signed On 03-04-20 07:22:54 CDT by Apolinar Mccain
== END 2020-03-03 23:01 | disposition home or self-care (01) ==
LOC: ER 19:41
DX: J44.0 Chronic obstructive pulmonary disease with (acute) lower respiratory infection (principal); J40 Bronchitis, not specified as acute or chronic; Z20.828 Contact with and (suspected) exposure to other viral communicable diseases; I10 Essential (primary) hypertension; E03.9 Hypothyroidism, unspecified; Z88.5 Allergy status to narcotic agent; Z88.8 Allergy status to other drugs, medicaments and biological substances
CPT/HCPCS: 93005; 87040 ×2; 87070; 85025; 80048; 36415; 87081; 84484; 84145; 83880; 87804 ×2; 71046; 99284; U0001

== ENCOUNTER 2020-11-08 16:02 | Emergency (ER) | payer OTHER ==
--- OUTSIDE RECORDS SUMMARY | 2020-11-08 16:05 | XMS REPORT | Continuity of Care Document ---
:[address] [facility] t Address [address] [place] [address] Care Team Providers Name Role Phone Skylar Klein Attending Clinician Problems Condition Condition Condition Status Onset Resolution Last Treating Co mments Source Name Details Category Date Date Treatment Clinician Date Type 2 Type 2 Problem Active 2019-10 [facility] diabetes Diabetes 0-21 Family mellitus Mellitus 00:00: Practi c without without 00 e complicati Complicati on on Chronic Chronic Problem Active 2019-10 [facility] obstructiv Obstructiv 0- [facility] e lung e Lung 00:00: Practic disease Disease 00 e Obesity Obesity Problem Active [facility] 07-17 Family 00:00: Practic 00 e Migraine Migraine Problem Active Timur ocasio with with 07-17 Family persistent Persistent 00:00: Pr actic visual Visual 00 e aura Aura Female Female Problem Active [place] stress Stress 07-17 Family incontinen Incontinen 00:00: Pr actic ce ce 00 e Osteoarthr Osteoarthr Problem Active [facility] itis itis 07-17 Family 00:00: Practic 00 e Depressive Depressive Problem Active [facility] disorder Disorder 05-19 Family 00:00: Practic 00 e Insomnia Insomnia Problem Active Timur ocasio 05-19 Family 00:00: Practic 00 e Essential Essential Problem Active Carlo chavez hypertensi Hypertensi 7-28 Fa kathleen on on 00:00: Practic 00 e Gastroesop Gastroesop Problem Active [facility] hageal hageal 05-19 Family reflux Reflux 00:00: Practic disease Disease 00 e Allergies, Adverse Reactions, Alerts Allergy Allergy Status Severity Reaction(s) Onset Inactive Treating Comm ents Source Name Type Date Date Clinician TORADOL Allergy Active Moderate Anaphylaxis [facility] to to severe Family substanc Practic e e WELLBUTR Allergy Active Moderate Hives Ding ge IN to to severe Family substanc Practic e e Toradol Adverse Active Info Not [facility] Reaction Available [facility] Wellbutr Adverse Active Info Not [facility] Reaction Available [facility] Medications Ordered Filled Start Stop Current Ordering Indication Dosage Frequency Signature Comments Components Source Medication Medication Date Date Medication? Clinician (SIG) Name Name Levi Sims 2019- No Reji [address] [facility] Ellipta Ellipta 5-08 08-06 [facility]: [facility]:00 [facility]oria 00 :00 [facility] levothyroxi levothyroxi No 1capsul Q1D levothyrox [place] ne 100 mcg ne 100 mcg e(s) ine 100 Family capsule capsule mcg Practic Take 1 Take 1 capsule e capsule capsule Take 1 every day every day capsule by oral by oral every day route. route. by oral route. metformin metformin No 1 Q1D metformin [facility] 1,000 mg 1,000 mg 1,000 mg Fam joelle tablet Take tablet Take tablet Practic 1 tablet 1 tablet Take 1 e every day every day tablet by oral by oral every day route. route. by oral route. pantoprazol pantoprazol No 1 Q1D pantoprazo [place] e 40 mg e 40 mg le 40 mg Famil y tablet,brody tablet,brody tablet,del Practic yed release yed release ayed e Take 1 Take 1 release tablet tablet Take 1 every day every day tablet by oral by oral every day route. route. by oral route. Ropinirole Ropinirole Yes Reji [address] [facility] HCl HCl [facility]arris to 3 hours [facility] - before [facility] bedtime [facility] ReliOn ReliOn Yes Reji as [facility] Prime Test Prime Test Farris directed [facility] Pantoprazol Pantoprazol Yes Reji [address] [facility] e S[facility] e [facility] Verapamil Verapamil Yes Reji [address] [facility] HCl ER HCl ER [facility] Accu-Chek Accu-Chek Yes Reji as [facility] FastClix FastClix Farris directed Rosa kes - Lancets Lancets Memoria l [facility] CPAP CPAP Yes Reji nightly [facility] Machine Machine [facility] Clonazepam Clonazepam Yes Reji [address] [facility] Farris at bedtime [facility] Levothyroxi Levothyroxi Yes Reji [address] [facility] ne Sodium ne Sodium Farris on an Quentin es - empty [facility] Losartan Losartan Yes Reji [address] Potassium Potassium Afrris [facility] Metformin Metformin Yes Reji [address] [facility] HCl HCl Farris with a [facility] - meal [facility] l [facility] Atorvastati Atorvastati Yes Reji TAKE [address] [facility] n Calcium n Calcium Farris TABLET BY [facility] - MOUTH Memoria EVERY DAY l [facility] OneTouch OneTouch Yes Reji TEST BLOOD [facility] Verio Verio Farris SUGAR ONCE [facility] - A DAY [facility] l [facility] Spironolact Spironolact Yes Reji [address] [facility] one one [facility] Diclofenac Diclofenac Yes Reji as [facility] Sodium Sodium Farris directed [facility] Hydrocodone Hydrocodone Yes Reji [address] [facility] -Acetaminop -Acetaminop Farris as needed [facility] - hen hen [facility] l [facility] Venlafaxine Venlafaxine Yes Reji [address] [facility] [address] HCl ER HCl ER Farris with food [facility] Venlafaxine Venlafaxine Yes Reji [address] [facility] [address] HCl HCl Farris with food [facility] Amitriptyli Amitriptyli Yes Reji [address] [facility] ne HCl ne HCl Farris at bedtime [facility] Quetiapine Quetiapine Yes Reji [address] [facility] Fumarate Fumarate [facility] Metformin Metformin Yes Reji TAKE [address] HCl HCl Farris TABLET BY [facility] - M[facility]TH Memoria TWICE A l DAY WITH A Outpati MEAL ent Clinics Atorvastati Atorvastati Yes Reji [address] [facility] n Calcium n Calcium [facility] Losartan Losartan Yes Reji TAKE [address] [facility] Potassium Potassium Farris TABLET BY [facility] - MOUTH Memoria EVERY DAY l Outpati ent Clinics Pantoprazol Pantoprazol Yes Reji TAKE [address] [facility] [facility] e Sodium e Sodium Farris TABLET BY L ukes - MOUTH Memoria EVERY DAY l Outpati ent Clinics Immunizations Ordered Immunization Filled Immunization Date Status Commen ts Source Name Name influenza, influenza, 2020-07-23 Completed [facility] injectable, injectable, 00:00:00 Practice quadrivalent quadrivalent Procedures This patient has no known procedures. Plan of Care Planned Activity Planned Date Details Comments Source Instructions [facility] Encounters Start End Encounter Admission Attending Care Care Encounter Source Date/Time Date/Time Type Type Clinicians Facility Department ID 2020-10-22 2020-10-22 Office FE Bansal [id number] 10:58:24 11:13:24 Visit [facility] [id number] Surgical [id number] Specialti [id number] es [address] 2020-09-22 2020-09-22 [facility] [id number] [facility] 2020-09-16 2020-09-16 [facility] [id number] [facility] 2020-09-02 2020-09-02 [facility] [id number] [facility] 2020-08-10 2020-08-10 [facility] [place] - [id number] [facility] 00:00:00 00:00:00 [facility] joelle box 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 2020-07-23 2020-07-23 [facility] [id number] [facility] 2020-07-14 2020-07-14 [facility] [id number] [facility] 2020-06-18 2020-06-18 [facility] [id number] [facility] 14:13:00 14:13:00 t [facility] [employer] - Drive [facility] Medicine Medicine Outpati ent Clinics 2020-06-17 2020-06-17 [facility] [id number] 11:15:00 11:15:00 t [facility] [employer] - [facility] Medicine Outpati ent Clinics 2020-06-17 2020-06-17 [facility] [id number] 10:40:00 10:40:00 t [employer] s - [facility] Medicine Outpati ent Clinics 2020-06-16 2020-06-16 [facility] [id number] 13:34:00 13:34:00 t [employer] s - [facility] Medicine Outpati ent Clinics 2020-06-08 2020-06-08 [facility] [id number] 14:55:00 14:55:00 t [employer] s - [facility] Medicine Outpati ent Clinics 2020-04-28 2020-04-28 [facility] [id number] 16:48:00 16:48:00 t [employer] [facility] Medicine Outpati ent Clinics 2020-04-07 2020-04-07 [facility] [id number] 08:50:00 08:50:00 t [facility] [employer] - [facility] Medicine Outpati ent Clinics 2020-04-06 2020-04-06 [facility] [id number] 13:20:00 13:20:00 t [facility] [employer] - [facility] Medicine Outpati ent Clinics 2020-04-03 2020-04-03 [facility] [id number] 11:22:00 11:22:00 t [employer] - [facility] Family Medicine l Medicine Outpati ent Clinics 2020-03-17 2020-03-17 [facility] [id number] 10:12:00 10:12:00 t [employer] - [facility] Medicine l Medicine Outpati ent Clinics 2020-03-17 2020-03-17 [facility] [id number] 09:45:00 09:45:00 t [facility] - [facility] Medicine l Medicine Outpati ent Clinics 2020-01-22 2020-01-22 [facility] [id number] 08:39:00 08:39:00 t [employer] [facility] [facility] Medicine l Medicine Outpati ent Clinics 2020-01-20 2020-01-20 [facility] [id number] [facility] 11:28:00 11:28:00 t [facility] [employer] - [facility] Medicine l Medicine Outpati ent Clinics 2020-01-02 2020-01-02 [facility] [id number] 14:00:00 14:00:00 t [employer] [place] [facility] Medicine l Medicine Outpati ent Clinics 2019-12-23 2019-12-23 [facility] [id number] [address] 15:26:00 15:26:00 t [employer] [place] [facility] Medicine l Medicine Outpati ent Clinics 2019-12-04 2019-12-04 [facility] [id number] 13:45:00 13:45:00 t [employer] [facility] Medicine l Medicine Outpati ent Clinics 2019-11-27 2019-11-27 [facility] [id number] [address] 11:15:00 11:15:00 t [employer] [place] [facility] Medicine l Medicine Outpati ent Clinics 2019-10-31 2019-10-31 [facility] [id number] 17:29:00 17:29:00 t [employer] [place] [facility] Medicine l Medicine Outpati ent Clinics 2019-09-30 2019-09-30 [facility] [id number] 16:54:00 16:54:[address] Luke s - Drive [facility] Medicine l Medicine Outpati ent Clinics 2019-09-04 2019-09-04 [facility] [id number] 09:00:00 09:00:00 t Wykoff [employer] [facility] Luke s - Drive [facility] Medicine l Medicine Outpati ent Clinics 2019-05-30 2019-05-30 [facility] [id number] 10:45:00 10:45:00 t Specialty/U Rosa kes - Specialty rology Memori a /Urology Clinic l Clinic Outpati ent Clinics 2019-05-20 2019-05-20 [facility] [id number] [address] 15:00:00 15:00:00 t Wykoff Wykoff [facility] Luke s - Drive [facility] l Medicine Outpati ent Clinics 2019-05-08 2019-05-08 [facility] [id number] 09:45:00 09:45:00 t Wykoff Wy[employer]off [facility] Luke s - Drive [facility] Medicine l Medicine Outpati ent Clinics 2019-04-03 2019-04-03 [facility] [id number] 12:00:00 12:00:00 t Wykoff Wy[employer] Luke s - Drive [facility] Medicine l Medicine Outpati ent Clinics 2019-03-01 2019-03-01 [facility] [id number] 09:51:00 09:51:00 t Wykoff Wykoff [facility] Luke s - Drive [facility] Medicine l Medicine Outpati ent Clinics 2019-02-27 2019-02-27 [facility] [id number] 13:45:00 13:45:00 t Wykoff Wy[employer] Luke s - Drive [facility] l Medicine Outpati ent Clinics 2019-02-04 2019-02-04 [facility] [id number] 14:34:00 14:34:[address] Luke s - Drive [facility] Medicine l Medicine Outpati ent Clinics 2019-01-30 2019-01-30 [facility] [id number] 10:33:00 10:33:00 t Wykoff Wykoff [employer] s - Drive [facility] Medicine Medicine Outpati ent Clinics 2019-01-29 2019-01-29 [facility] [id number] 14:00:00 14:00:00 t Wykoff Wykoff [employer] - Drive [facility] Medicine Outpati ent Clinics 2018-12-26 2018-12-26 [facility] [id number] 16:11:00 16:11:00 t Wykoff Wykoff [employer] - Drive [facility] Medicine Medicine Outpati ent Clinics 2018 2018 [facility] [id number] [facility] 14:30:00 14:30:00 t [employer] [facility] Medicine Outpati ent Clinics 2018-12-12 2018-12-12 [facility] [id number] 14:31:00 14:31:00 t [place] [employer] - [facility] Medicine Outpati ent Clinics 2018-12-11 2018-12-11 [facility] [id number] 14:00:00 14:00:00 t [facility] [employer] [facility] [facility] Medicine Outpati ent Clinics 2018-12-11 2018-12-11 [facility] [id number] 09:30:00 09:30:00 t [facility] - Care Clinic [facility] Clinic l Outpati ent Clinics 2018-12-05 2018-12-05 [facility] [id number] 09:21:00 09:21:00 t [facility] [employer] [address] [facility] Medicine Medicine Outpati ent Clinics 2018-12-04 2018-12-04 [facility] [id number] 14:45:00 14:45:00 t Womens [facility] L [facility] - Care Clinic [facility] Clinic l Outpati ent Clinics 2018-12-04 2018-12-04 [facility] [id number] 12:18:00 12:18:00 t Wykoff Wykoff [employer] s - Drive [facility] Medicine Outpati ent Clinics 2018-11-28 2018-11-28 [facility] [id number] [facility] 14:45:00 14:45:00 t Tech [employer] [facility] Medicine Outpati ent Clinics 2018-11-27 2018-11-27 [facility] [id number] 12:23:00 12:23:00 t Tech [employer] [facility] Medicine Outpati ent Clinics 2018-11-05 2018-11-05 [facility] [id number] [facility] 15:27:00 15:27:00 t [employer] [facility] Medicine Outpati ent Clinics 2018-10-29 2018-10-29 [facility] [id number] 15:06:00 15:06:00 t Tech [employer] [facility] Medicine Outpati ent Clinics 2018-10-02 2018-10-02 [facility] [id number] [facility] 14:30:00 14:30:00 t [employer] [facility] Medicine Outpati ent Clinics Results This patient has no known results.
--- OUTSIDE RECORDS SUMMARY | 2020-11-08 16:06 | XMS REPORT | Summary of Care ---
:1960 Author Organization [facility] Address [address] [place] [address] Care Team Providers Name Role Phone Rey Farris Primary Care Provider Encounter Details Date Type Department Care Team Description 08/19/2020 Orders Only [facility] Doctor Unassigned, No 301 [facility] [place] [address] [address] [place] [id number] Allergies Active Allergy Reactions Severity Noted Date Comments Bupropion Hcl Itching 04/06/2016 Diclofenac Sodium Swelling 01/07/2020 redness Gabapentin Other - See comments 04/20/2020 Weight gain and sleep walk Latex, Natural Rubber Itching Medium 01/08/2019 Ketorolac Tromethamine Anaphylaxis 08/04/2015 Bupropion Unknown - See comments 08/04/2015 Zolpidem Unknown - See comments 04/06/2016 Sleep walk documented as of this encounter (statuses as of 08/19/2020) Medications Medication Sig Dispensed Refills Start Date [...] tablet mouth daily. amitriptyline 75 mg Take 100 mg by 0 Active tablet mouth at [...] % APPLY TO AFFECTED 100 g 0 03/17/2020 Active gelIndications: Status AREA TWICE A DAY post total knee NEEDED FOR replacement, left PAIN APPLY 2 GRAMS DO NOT EXCEED 4 GRAMS IN A DAY albuterol 2.5 mg /3 mL 1 NEBULE PER 0 03/04/2020 Active (0.083 %) nebulizer NEBULIZER EVERY 8 solution HOURS NEEDED melatonin 3 mg tablet Take 3 mg by 0 Active mouth 3 (three) times daily. cinnamon Take by mouth. 0 Acti ve ltdj-nhjojxus-MPL 500-100-150 mg-mcg-mg Cap calcium Take by mouth. 0 Acti ve carbonate/vitamin D3 (CALCIUM 500 + D ORAL) Cholecalciferol, Take by mouth. 0 Active Vitamin D3, (D3-2000) 50 mcg (2,000 unit) capsule MILK THISTLE ORAL Take 350 mg by 0 Active mouth. evening primrose oil Take 100 mg by 0 Active (EVENING PRIMROSE ORAL) mouth. meloxicam 7.5 mg tablet Take 1 tablet by 30 tablet 1 0 Active mouth daily. documented as of this encounter (statuses as of 08/19/2020) Active Problems Problem Noted Date Primary osteoarthritis of left knee 12/05/2019 Overview: Added automatically from request for michela sky [id number] Total knee replacement status 01/07/2019 Primary osteoarthritis of right knee 01/02/2019 Overview: Added automatically from request for michela sky [id number] Hypoxia 04/11/2018 Morbid obesity with body mass index of 40.0-49.9 04/11 Knee pain, left 01/18/2016 Right knee pain 08/04/2015 documented as of this encounter (statuses as of 08/19/2020) Immunizations Name Administration Dates Next Due Pneumococcal Polysaccharide, PPSV23 (PNEUMOVAX) 01/08/2019 documented as of this encounter Social History Tobacco Use Types Packs/Day Years Used Date Never Smoker Cigarettes 2 10 Smokeless Tobacco: Never Used Alcohol Use Drinks/Week oz/Week Comments No 0 Standard drinks or equivalent 0.0 Sex Assigned at Date Recorded Not on file COVID-19 Exposure Response Date Recorded In the last month, have you been in contact with No / Unsure 08/18/2020 3:39 PM CDT someone who was confirmed or suspected to have Coronavirus / COVID-19? documented as of this encounter Last Filed Vital Signs Not on filedocumented in this encounter Plan of Treatment Health Maintenance Due Date Last Done Comments HEPATITIS C (HCV) SCREEN 1960 DTaP,Tdap,and Td Vaccines ( - 12/24/1978 Tdap) PAP SMEAR 12/24/1980 Breast Cancer Screening 1999 (MAMMOGRAM) COLON CANCER SCREENING ANNUAL 12/24/2009 FIT/FOBT COLON CANCER SCREENING FIT DNA 12/24/2009 EVERY 3 YEARS COLON CANCER SCREENING 12/24/2009 SIGMOIDOSCOPY EVERY 5 YEARS COLONOSCOPY 12/24/2009 Colorectal Cancer Screening 12/24/2009 Zoster Recombinant Vaccine 12/24/2009 (SHINGRIX) (1 of 2) INFLUENZA VACCINE (#1) 2020 Depression Screening 12/23/2020 12/24/2019 PNEUMOCOCCAL 0-64 YEARS COMBINED Aged Out 01/08/2019 No longer eligible based on SERIES patient's age to complete this topic documented as of this encounter Implants Implanted Type Area Assistant Department Manager Device Shelf Model / Identifier Expiration Serial / Date Lot Bone Cement Palacos R Radiopaque Ayaan #[id number] - [id number] CEMENT Right: Ayaan 08/23/2019 [id number] / Implanted: Qty: 1 on 01/07/2019 by Sedrick Kendall MD at [facility] Knee 8 [id number] / [id number] Cement Simplex Hv #[id number] - Sn/A CEMENT Left: Dixon 01/20/2021 [id number] / Implanted: Qty: 1 on 12/09/2019 by Sedrick Kendall MD at [facility] Knee N /A / [id number] Bearing Tibial 10 X 63/67 Mm #[id number] - [id number] KNEE Right: Bio met 08/24/2023 [id number] / Implanted: Qty: 1 on 01/07/2019 by Sedrick Kendall MD at [facility] Knee 9 [id number] / [id number] Patella 8 X 31mm Biomet#[id number] - [id number] KNEE Right: Biomet 08/29/2023 [id number] / Implanted: Qty: 1 on 01/07/2019 by Sedrick Kendall MD at [facility] Knee 1 [id number] / [id number] Cr Femoral Right KNEE Right: Biomet 01/21/2028 [id number] / Implanted: Qty: 1 on 01/07/2019 by Sedrick Kendall MD at [facility] Knee 1 [id number] / [id number] Component Patella 32mm Vera 8mm Biomet #[id number] - [id number] Other Le ft: Biomet 11/11/2024 [id number] / Implanted: Qty: 1 on 12/09/2019 by Sedrick Kendall MD at [facility] Implant Knee 1 [id number] / [id number] Adc Plate Tibial Cruciate 67 Mm - [id number] PLATE Right: Biomet 05/03/2028 [id number] / Implanted: Qty: 1 on 01/07/2019 by Sedrick Kendall MD at [facility] Knee J [id number] / [id number] Screw Acetabular 6.5mm Vera 30mml Cancellous Ayaan #[id number] - [id number] Left: Biomet 09/02/2029 [id number] / Implanted: Qty: 4 on 12/09/2019 by Sedrick Kendall MD at [facility] Knee 1 [id number] / [id number] Component Tibial Tray Cementless 67mml Biomet #[id number] - [id number] Left: Biomet 03/20/2024 [id number] / Implanted: Qty: 1 on 12/09/2019 by Sedrick Kendall MD at [facility] Knee 1 [id number] / [id number] Bearing Tibial 10 X 63/67 Mm #[id number] - [id number] Left: Bio met 07/01/2024 [id number] / Implanted: Qty: 1 on 12/09/2019 by Sedrick Kendall MD at [facility] Knee 1 [id number] / [id number] Adc Femur 57.5 Mm Left - [id number] Left: Biomet 02/11/2029 [id number] / Implanted: Qty: 1 on 12/09/2019 by Sedrick Kendall MD at [facility] Knee 1 [id number] / [id number] Stem Finned Primary 40mm Biomet #[id number] - [id number] Left: Biomet 11/19/2029 [id number] / Implanted: Qty: 1 on 12/09/2019 by Sedrick Kendall MD at [facility] Knee 1 [id number] / [id number] documented as of this encounter Procedures Procedure Name Priority Date/Time Associated Diagnosis Comme nts RADIOLOGY DOCUMENTATION Routine 08/19/2020 12:01 AM CDT documented in this encounter Results Not on filedocumented in this encounter Insurance Payer Benefit Plan / Subscriber ID Effective Dates Phone Addre ss Type Group CAIO CONWAY [id number] 2018-[facility] Medicare Adv PLUS PLUS t HMO CLASSIC/VALUE documented as of this encounter
--- OUTSIDE RECORDS SUMMARY | 2020-11-08 16:06 | XMS REPORT | Summary of Care ---
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 [address] [place] [address] Reason for Visit Reason Comments BREAST MASS Encounter Details Date Type Department Care Team Description 09/04/2020 Case Management [facility] Urology- Corazon Garcia la A, SWITCHBOARD OPERATOR HELPER BREAST MASS [place] [address] [address] [place] [address] [place], [place] [address] [place] [address]8 [address] [phone] Allergies Active Allergy Reactions Severity Noted Date Comments Bupropion Hcl Itching 04/06/2016 Diclofenac Sodium Swelling 01/07/2020 redness Gabapentin Other - See comments 04/20/2020 Weight gain and sleep walk Latex, Natural Rubber Itching Medium 01/08/2019 Ketorolac Tromethamine Anaphylaxis 08/04/2015 Bupropion Unknown - See comments 08/04/2015 Zolpidem Unknown - See comments 04/06/2016 Sleep walk documented as of this encounter (statuses as of 09/04/2020) Medications Medication Sig Dispensed Refills Start Date [...] cinnamon Take by mouth. 0 Acti ve scmj-okhmydts-MKV 500-100-150 mg-mcg-mg Cap calcium Take by mouth. 0 Acti ve carbonate/vitamin D3 (CALCIUM 500 + D ORAL) Cholecalciferol, Take by mouth. 0 Active Vitamin D3, (D3-2000) 50 mcg (2,000 unit) capsule MILK THISTLE ORAL Take 350 mg by 0 Active mouth. evening primrose oil Take 100 mg by 0 Active (EVENING PRIMROSE ORAL) mouth. MELOXICAM 7.5 mg TAKE 1 TABLET BY 30 tablet 1 08/27/2020 Active tabletIndications: MOUTH EVERY DAY Status post total knee replacement, left documented as of this encounter (statuses as of 09/04/2020) Active Problems Problem Noted Date Primary osteoarthritis of left knee 12/05/2019 Overview: Added automatically from request for michela sky [id number] Total knee replacement status 01/07/2019 Primary osteoarthritis of right knee 01/02/2019 Overview: Added automatically from request for michela sky [id number] Hypoxia 04/11/2018 Morbid obesity with body mass index of 40.0-49.9 04/11 Knee pain, left 01/18/2016 Right knee pain 08/04/2015 documented as of this encounter (statuses as of 09/04/2020) Immunizations Name Administration Dates Next Due Pneumococcal [...] filedocumented in this encounter Plan of Treatment Name Type Priority Associated Diagnoses Order S chedule BI DIAGNOSTIC MAMMOGRAM IMAGING Routine Mammographic Expe cted: BILATERAL calcification found on 09/04, Expires: diagnostic imaging of 2021 breast Breast mass, left Health Maintenance Due Date Last Done Comments HEPATITIS C (HCV) SCREEN 1960 DTaP,Tdap,and Td Vaccines (1 - 12/24/1978 Tdap) PAP SMEAR 12/24/1980 Breast [...] of this encounter Implants Implanted Type Area Test Administrator Device Shelf Model / Identifier Expiration Serial / Date Lot Bone Cement Palacos R Radiopaque Ayaan #[id number] - [id number] CEMENT Right: Ayaan 08/23/2019 [id number] / Implanted: Qty: 1 on 01/07/2019 by Sedrick Kendall MD at [facility] Knee 8 [id number] / [id number] Cement Simplex Hv #6194-1-001 - Sn/A CEMENT Left: Warner 01/20/2021 [id number] / Implanted: Qty: 1 on 12/09/2019 by Sedrick Kendall MD at [facility] Knee N /A / [id number] Bearing Tibial 10 X 63/67 Mm #[id number] - [id number] KNEE Right: Bio met 08/24/2023 [id number] / Implanted: Qty: 1 on 01/07/2019 by Sedrick Kendall MD at [facility] Knee 9 [id number] / [id number] Patella 8 X 31mm Biomet#242885 - [id number] KNEE Right: Biomet 08/29/2023 [id number] / Implanted: Qty: 1 on 01/07/2019 by Sedrick Kendall MD at [facility] Knee 1 [id number] / [id number] Cr Femoral Right KNEE Right: Biomet 01/21/2028 18 [id number] / Implanted: Qty: 1 on 01/07/2019 by Sedrick Kendall MD at [facility] Knee 1 [id number] / [id number] Component Patella 32mm Vera 8mm Biomet #591503 - [id number] Other Le ft: Biomet 11/11/2024 [id number] / Implanted: Qty: 1 on 12/09/2019 by Sedrick Kendall MD at [facility] Implant Knee 1 11491 / [id number] Adc Plate Tibial Cruciate 67 Mm - [id number] PLATE Right: Biomet 05/03/2028 [id number] / Implanted: Qty: 1 on 01/07/2019 by Sedrick Kendall MD at [facility] Knee J [id number] / [id number] Screw Acetabular 6.5mm Vera 30mml Cancellous Ayaan #[id number] - [id number] Left: Biomet 09/02/2029 [id number] / Implanted: Qty: 4 on 12/09/2019 by Sedrick Kendall MD at [facility] Knee 1 [id number] / [id number] Component Tibial Tray Cementless 67mml Biomet #793300 - [id number] Left: Biomet 03/20/2024 [id number] / Implanted: Qty: 1 on 12/09/2019 by Sedrick Kendall MD at [facility] Knee 1 85130 / [id number] Bearing Tibial 10 X 63/67 Mm #355285 - [id number] Left: Bio met 07/01/2024 [id number] / Implanted: Qty: 1 on 12/09/2019 by Sedrick Kendall MD at [facility] Knee 1 94219 / [id number] Adc Femur 57.5 Mm Left - [id number] Left: Biomet 02/11/2029 [id number] / Implanted: Qty: 1 on 12/09/2019 by Sedrick Kendall MD at [facility] Knee 1 [id number] / [id number] Stem Finned Primary 40mm Biomet #908835 - [id number] Left: Biomet 11/19/2029 [id number] / Implanted: Qty: 1 on 12/09/2019 by Sedrick Kendall MD at [facility] Knee 1 [id number] / [id number] documented as of this encounter Results Not on filedocumented in this encounter Visit Diagnoses Diagnosis Breast mass, left - Primary Lump or mass in breast Mammographic calcification found on diag nostic imaging of breast Other (abnormal) findings on radiologica l examination of breast documented in this encounter Insurance Payer Benefit Plan / Subscriber ID Effective Dates Phone Addre ss Type Group [employer] HOWIENESHA [id number] 2018-Presen Medicare Adv PLUS PLUS t HMO CLASSIC/VALUE documented as of this encounter
--- OUTSIDE RECORDS SUMMARY | 2020-11-08 16:06 | XMS REPORT | Encounter Summary ---
:1960 Author Care Team Providers Name Role Phone Dr. Reji Farris Primary Care Provider [phone] Reason for Visit home visit (initial) Instructions 1. Frailty 2. Essential hypertension 3. Gastroesophageal reflux disea se 4. Type 2 diabetes mellitus with out complication 5. Severe obesity Discussion Note Patient denies any acute issues at this time. Patient encouraged to notify his pcp for any acute cough,fever, and sob. Patient verbalized understanding. Will follow up with patient to complete a AWV. Patient educational handouts: No information available. Plan of Care Patient Instructions Today, I reviewed your medications. If you need help getting your medications filled, our [facility] can sync medication refills, deliver within a 10 mile radius, or [facility] overnight at no additional cost. Please watch for warning symptoms that m ay occur: fever redness/oozing at surgical site shortness of breath uncontrolled pain unexpected weight gain/loss high or low blood p ressure chest pain confusion any other health concerns Call us at if you experie nce any of these symptoms. Evening and Monday clinic hours are av ailable if you have problems. If you have problems after hours, you ca n reach the [facility] physician e business consultant at . Reminders Provider Appointments Telemedicine on or around [facility] 09/12/2020 [facility] None recorded. Referral None recorded. Procedures None recorded. Surgeries None recorded. Imaging None recorded. Medications Name Start Date levothyroxine 100 mcg capsule Take 1 capsule every day by oral route. metformin 1,000 mg tablet Take 1 tablet every day by oral route. pantoprazole 40 mg tablet,delayed release Take 1 tablet every day by oral route. Medications Administered None recorded. Vitals None recorded. Results Lab Results None recorded. Allergies Code Code System Name Reaction Severity Status Onset Toradol Anaphylaxis Moderate to Active Severe Wellbutrin Hives Moderate to Active Severe Problems Name Status Onset Date Source Depressive Disorder Active 05/19/2019 Insomnia Active 05/19/2019 Essential Hypertension Active 05/19/2019 Gastroesophageal Reflux Disease Active 05/19/2019 Obesity Active 07/17/2019 Migraine with Persistent Visual Aura Active 07/17/2019 Female Stress Incontinence Active 07/17/2019 Osteoarthritis Active 07/17/2019 Type 2 Diabetes Mellitus without Complication Active Chronic Obstructive Lung Disease Active 08/12/2020 Procedures None recorded. Vaccine List Vaccine Type influenza, injectable, quadrivalent 07/23/2020 Social History None recorded. 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 History of Present Illness Mini Cog (with scoring) Reported By: Patient Functional Ability: Personal/Social/ 3 word reca ll: Your nurse or doctor will ask you to remember 3 words. In 5 m inutes, they will ask you to repeat them. Patient recalled 3 w ords (3 points) Note: Patient was evaluated today for the following chronic and acute conditions (see HPI below), as well as other concerns:
<p>1. Diabetes
</p><p>2. Hypothyroid </p><p>3. Gerd</p><p>4. HTN</p><p>5.Obesity

Patient utilizes the following resources:
</p><li>Home health care: {{Yes|No, doesn't have skilled needs that require assistance*|No, has skilled needs that require assistance, see Assmentment and Plan}} </li>
<li>Wood And Hardware Outfitter: {{Yes*|No, does not need assistance with ADLs|No, needs assistance with ADLs, see Assessment and Plan}} </li>
<li>Durable Medical Equipment: {{Yes, walker#|Yes|No|No, needs order for _ , see Assessment and Plan}} &lt ;/li>
How many times has the patient been admitted to the hospital in the last 12 months? {{0|1*|2+}}

How many times has the patient been seen in the emergency room in the last 12 months? {{0*|1|2+}}

Has patient been evaluated for Care Management? {{Yes â€“ currently enrolled|Yes - has graduated from care management|Yes â€“ declined Care Management|No â€“ see Assessment andPlan*}}

Does patient have needs or concerns in any of the following areas (Housing, Food, Transportation, Utilities, Personal Safety)? {{Yes â€“ see Assessment and Plan|No*}}

Patient lives: {{In his/her own home or apartment*|In home or apartment of relative|Senior Apartment|Assisted Living Facility|Personal Fci|Jail Faci lity}}

Does patient have difficulty taking his / her medications as directed? {{Yes â€“ see Assessment and Plan*|No}}
<p></p> Review of Systems Comprehensive General Adult ROS Reported By: Patient Constitutional: Constitutional: no fever, no night sweats, no significant weight gain, no significant weight loss, no exercise intolerance Eyes: Eyes: no dry eyes, no vision change, no irritation ENMT: Ears: no difficulty hearing, no ear pain. Nose: no frequent nosebleeds, no nose problems , no sinus problems. Mouth/Throat: no sore throat, no bleeding gums, no snoring, no dry mouth, no mouth ulcers, no oral abnorm alities, no teeth problems Cardiovascular: Cardiovascular: no chest willam n, no arm pain on exertion, no shortness of breath when wal nii, no shortness of breath when lying down, no palpitations, no known heart murmur, no lightheadedness Respiratory: Respiratory: no cough, no wh eezing, no shortness of breath, no coughing up blood, no sleep apnea Gastrointestinal: Gastrointestinal: no abdomin al pain, no nausea, no vomiting, no constipation, normal appe tite, no diarrhea, not vomiting blood, no dyspepsia, no GERD Genitourinary: Genitourinary: no incontinen ce, no difficulty urinating, no hematuria, no increased freq uency Musculoskeletal: Musculoskeletal: no muscle a ches, no muscle weakness, no arthralgias/joint pain, no b ack pain, no swelling in the extremities Integumentary: Skin: no abnormal mole, no j aundice, no rashes, no laceration Neurologic: Neurologic: no loss of consc iousness, no weakness, no numbness, no seizures, no di zziness, no migraines, no headaches, no tremor Psychiatric: Psych: no depression, no sle ep disturbances, feeling safe in a relationship, no alcohol abu se, no anxiety, no hallucinations, no suicidal thoughts Endocrine: Endocrine: no fatigue Hematologic/Lymphatic: Hematologic/Lymphatic no swo llen glands, no bruising, no excessive bleeding Allergic/Immunologic: Allergy/Immunologic: no runn y nose, no sinus pressure, no itching, no hives, no freque nt sneezing Physical Exam Geriatrics Exam Reported By: Patient Psychiatric: Insight: good judgement. Men adalid Status: active and alert, normal mood, normal affect, normal attent iveness. Thought Process: ordered. Orientation: to time, to phuc ce, to person. Memory: recent memory normal, remote memory normal, no per sonality changes. Speech normal speech, normal comprehension"
--- OUTSIDE RECORDS SUMMARY | 2020-11-08 16:06 | XMS REPORT | Summary of Care ---
:1960 Author Organization [facility] Address [address] [place] [address] Care Team Providers Name Role Phone Rey Farris Primary Care Provider Reason for Visit Reason Comments Refill Request Encounter Details Date Type Department Care Team Description 08/27/2020 Refill [facility] Orthopaedic Sedrick Calabrese MD Refill Request Surgery- [place] [address], [place] [address] [place] [address] [place] [address] [phone] Allergies Active Allergy Reactions Severity Noted Date Comments Bupropion Hcl Itching 04/06/2016 Diclofenac Sodium Swelling 01/07/2020 redness Gabapentin Other - See comments 04/20/2020 Weight gain and sleep walk Latex, Natural Rubber Itching Medium 01/08/2019 Ketorolac Tromethamine Anaphylaxis 08/04/2015 Bupropion Unknown - See comments 08/04/2015 Zolpidem Unknown - See comments 04/06/2016 Sleep walk documented as of this encounter (statuses as of 08/27/2020) Medications Medication Sig Dispensed Refills Start Date [...] SODIUM 1 APPLY TO 100 g 0 03/17/2020 Active % gelIndications: AFFECTED AREA Status post total TWICE A DAY knee replacement, NEEDED FOR PAIN left APPLY 2 GRAMS DO NOT EXCEED 4 GRAMS IN A DAY albuterol 2.5 mg /3 1 NEBULE PER 0 03/04/2020 Active mL (0.083 %) NEBULIZER EVERY nebulizer solution 8 HOURS NEEDED melatonin 3 mg Take 3 mg by 0 Ac tive tablet mouth 3 (three) times daily. cinnamon Take by mouth. 0 Acti ve kgii-spdbqmim-YJY 500-100-150 mg-mcg-mg Cap calcium Take by mouth. 0 Acti ve carbonate/vitamin D3 (CALCIUM 500 + D ORAL) Cholecalciferol, Take by mouth. 0 Active Vitamin D3, (D3-2000) 50 mcg (2,000 unit) capsule MILK THISTLE ORAL Take 350 mg by 0 Active mouth. evening primrose oil Take 100 mg by 0 Active (EVENING PRIMROSE mouth. ORAL) MELOXICAM 7.5 mg TAKE 1 TABLET 30 tablet 1 08/27/2020 Active tabletIndications: BY MOUTH EVERY Status post total DAY knee replacement, left meloxicam 7.5 mg Take 1 tablet 30 tablet 1 04/24/2020 08/27/20 2 Discontinued tablet by mouth daily. 0 documented as of this encounter (statuses as of 08/27/2020) Active Problems Problem Noted Date Primary osteoarthritis of left knee 12/05/2019 Overview: Added automatically from request for michela sky [id number] Total knee replacement status 01/07/2019 Primary osteoarthritis of right knee 01/02/2019 Overview: Added automatically from request for michela sky [id number] Hypoxia 04/11/2018 Morbid obesity with body mass index of 40.0-49.9 04/11 Knee pain, left 01/18/2016 Right knee pain 08/04/2015 documented as of this encounter (statuses as of 08/27/2020) Immunizations Name Administration Dates Next Due Pneumococcal [...] of this encounter Implants Implanted Type Area Pricing Manager Device Shelf Model / Identifier Expiration Serial / Date Lot Bone Cement Palacos R Radiopaque Ayaan #[id number] - [id number] CEMENT Right: Ayaan 08/23/2019 [id number] / Implanted: Qty: 1 on 01/07/2019 by Sedrick Kendall MD at [facility] Knee 8 [id number] / [id number] Cement Simplex Hv #6194-1-001 - Sn/A CEMENT Left: [place] 01/20/2021 6194-1-001 / Implanted: Qty: 1 on 12/09/2019 by Sedrick Kendall MD at [facility] Knee N /A / [id number] Bearing Tibial 10 X 63/67 Mm #052473 - [id number] KNEE Right: Bio met 08/24/2023 [id number] / Implanted: Qty: 1 on 01/07/2019 by Sedrick Kendall MD at [facility] Knee 9 [id number] / [id number] Patella 8 X 31mm Biomet#610902 - [id number] KNEE Right: Biomet 08/29/2023 [id number] / Implanted: Qty: 1 on 01/07/2019 by Sedrick Kendall MD at [facility] Knee 1 [id number] / [id number] Cr Femoral Right KNEE Right: Biomet 01/21/2028 18 3042 / Implanted: Qty: 1 on 01/07/2019 by Sedrick Kendall MD at [facility] Knee 1 [id number] / [id number] Component Patella 32mm Vera 8mm Biomet #255242 - [id number] Other Le ft: Biomet 11/11/2024 [id number] / Implanted: Qty: 1 on 12/09/2019 by Sedrick Kendall MD at [facility] Implant Knee 1 20422 / [id number] Adc Plate Tibial Cruciate 67 Mm - [id number] PLATE Right: Biomet 05/03/2028 [id number] / Implanted: Qty: 1 on 01/07/2019 by Sedrick Kendall MD at [facility] Knee J [id number] / [id number] Screw Acetabular 6.5mm Vera 30mml Cancellous Ayaan #214665 - [id number] Left: Biomet 09/02/2029 [id number] / Implanted: Qty: 4 on 12/09/2019 by Sedrick Kendall MD at [facility] Knee 1 [id number] / [id number] Component Tibial Tray Cementless 67mml Biomet #451514 - [id number] Left: Biomet 03/20/2024 [id number] / Implanted: Qty: 1 on 12/09/2019 by Sedrick Kendall MD at [facility] Knee 1 36260 / [id number] Bearing Tibial 10 X 63/67 Mm #466594 - [id number] Left: Bio met 07/01/2024 530874 / Implanted: Qty: 1 on 12/09/2019 by Sedrick Kendall MD at [facility] Knee 1 64728 / [id number] Adc Femur 57.5 Mm Left - [id number] Left: Biomet 02/11/2029 746989 / Implanted: Qty: 1 on 12/09/2019 by Sedrick Kendall MD at [facility] Knee 1 [id number] / [id number] Stem Finned Primary 40mm Biomet #613488 - [id number] Left: Biomet 11/19/2029 [id number] / Implanted: Qty: 1 on 12/09/2019 by Sedrick Kendall MD at [facility] Knee 1 [id number] / [id number] documented as of this encounter Results Not on filedocumented in this encounter Visit Diagnoses Diagnosis Status post total knee replacement, left - Primary documented in this encounter Insurance Payer Benefit Plan / Subscriber ID Effective Dates Phone Addre ss Type Group [employer] [place] [id number] 2018-[id number] Medicare Adv PLUS PLUS t HMO CLASSIC/VALUE documented as of this encounter
--- OUTSIDE RECORDS SUMMARY | 2020-11-08 16:06 | XMS REPORT ---
:1960 Author Organization [facility] Address [address], [address] [place] [address] Care Team Providers Name Role Phone Farris Unavailable [phone] PROBLEMS Type Condition ICD9-CM [id number] Onset Condition SNOMED Code Notes Code Code Dates Status Problem Essential I10 Active 79932620 (primary) hypertension Problem GERD without K21.9 Active 435623619 esophagitis Problem Restless leg G25.81 Active 72682940 syndrome Problem Acquired E03.9 Active 034649089 hypothyroidism Problem Generalized F41.1 Active 65712600 anxiety disorder Problem Obstructive sleep G47.33 Active 29291142 apnea (adult) (pediatric) Problem Current moderate F32.1 Active 93360474 episode of major depressive disorder without prior episode Problem 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 Active 135474549 other enabling machines and devices Problem Primary M17.0 Active 086930878 osteoarthritis of both knees Problem Mixed E78.2 Active 017641185 hyperlipidemia Problem Chronic J44.9 Active 58051589 obstructive pulmonary disease, unspecified COPD type Problem Encounter for Z01.00 Active 572083445 examination of eyes and vision without abnormal findings Problem Insomnia, G47.00 Active 220811321 unspecified type Problem Chronic F32.9 Active 955124209 depression Problem Type 2 diabetes E11.9 Active 052458245 mellitus without complications Problem Controlled type 2 E11.9 Active 083271365 diabetes mellitus without complication, without long-term current use of insulin Problem Morbid (severe) E66.01 Active 582619658 obesity due to excess calories Problem Status post right Z96.651 Active 6768317729365 knee replacement Problem Urinary R32 Active 209179702 incontinence, unspecified type Problem Mixed stress and N39.46 Active 972737566 urge urinary incontinence Problem Status post total Z96.652 Active 4396564574733 left knee replacement ALLERGIES Allergen (clinical drug Drug/Non Drug Allergy Reaction Allergy Type Onset Date Status ingredient) documented on EMR Toradol Unknown Drug Allergy Active Wellbutrin Unknown Drug Allergy Active ENCOUNTERS from 1960 to 2020-09-04 Encounter Location Date Provider Diagnosis [facility] [address], [place] [address] IMMUNIZATIONS Vaccine Route Administration Date Status Fluzone IM Intramuscular Aug 01, 2019 Administered Kenalog (Triamcinolone) IM Intramuscular Nov 28, 2018 Adminis tered SOCIAL HISTORY Tobacco Use: Social History Observation Description Date Details (start date - stop date) Never Smoker Sex Assigned At : Social History Observation Description Sex Assigned At Unknown PHQ9 Question Answer Notes Little interest or pleasure in doing things Nearly every day Feeling down, depressed, or hopeless Nearly every day Trouble falling or staying asleep or sleeping too much Sever al days Feeling tired or having little energy Several days Poor appetite or overeating Not at all Feeling bad about yourself, or that you are a failure, Sever al days or have let yourself or your family down Trouble concentrating on things, such as reading the More th an half the days newspaper or watching television Moving or speaking so slowly that other people could Not at all have noticed; or the opposite, being so fidgety or restless that you have been moving around a lot more than usual Total Score 11 Interpretation Moderate Depression Thoughts that you would be better off or of Not at all hurting yourself in some way Alcohol Screen Question Answer Notes Did you have a drink containing alcohol in the past year? No Points 0 Interpretation Negative Tobacco Use/Smoking Question Answer Notes Are you a never smoker REASON FOR REFERRAL No Information VITAL SIGNS No information MEDICATIONS Medication SIG (Take, Route, Start Date End Date Status Frequency, Duration) Losartan Potassium 100 MG TAKE 1 TABLET BY MOUTH Active EVERY DAY for 90 Diclofenac Sodium 1 % as directed Transdermal Active Twice a day Pantoprazole Sodium 40 MG TAKE 1 TABLET BY MOUTH Active EVERY DAY for 90 CPAP Machine max pressure 9 cm nightly Active of water Metformin HCl 500 MG TAKE 1 TABLET BY MOUTH Active TWICE A DAY WITH A MEAL for 90 Ropinirole HCl 2 MG 1 tablet 1 to 3 hours Active before bedtime Orally Once a day for 90 days Atorvastatin Calcium 20 MG TAKE 1 TABLET BY MOUTH Active EVERY DAY for 90 ReliOn Prime Test - as directed In Vitro twice Active a day for 90 days Accu-Chek FastClix Lancets - as directed in vitro twice Active daily for 90 days Verapamil HCl ER 120 MG TAKE 1 TABLET BY MOUTH Active EVERY DAY for 90 Hydrocodone-Acetaminophen 1 tablet as needed Orally Active 7.5-325 MG PRN Venlafaxine HCl ER 150 MG 1 capsule with food Orally Active Once a day for 90 days Atorvastatin Calcium 40 MG 1 tablet Orally Once a day Active for 90 days Breo Ellipta 100-25 MCG/INH 1 puff Inhalation Twice a Active day Quetiapine Fumarate 200 MG 1 tablet Orally Once a day Active for 90 days Venlafaxine HCl 75 MG 1 tablet with food Orally Active Once a day for 90 days Levothyroxine Sodium 100 MCG 1 tablet on an empty Active stomach in the morning Orally Once a day for 90 Spironolactone 25 MG 1 tablet Orally Once a day Active for 90 days Breo Ellipta 100-25 MCG/INH 1 puff Inhalation Once a Active day for 30 days OneTouch Verio - TEST BLOOD SUGAR ONCE A DAY Unknown for 90 PROCEDURES No Information RESULTS No Results REASON FOR VISIT Imaging disk MEDICAL (GENERAL) HISTORY Type Description Date Medical History Acquired hypothyroidism Medical History Morbid (severe) obesity due to excess ca lories Medical History GERD without esophagitis Medical History Essential (primary) hypertension Medical History Acquired hypothyroidism Medical History GERD without esophagitis Medical History Essential (primary) hypertension Medical History Morbid (severe) obesity due to excess ca lories Medical History Controlled type 2 diabetes mellitus with out complication, without long-term current use of insulin Medical History Primary osteoarthritis of both knees Medical History Insomnia, unspecified type Medical History Restless leg syndrome Medical History Current moderate episode of major depres sive disorder without prior episode Medical History Generalized anxiety disorder Medical History Obstructive sleep apnea (adult) (pediatr ic) Medical History Dependence on other enabling machines an d devices Surgical History C section 1981 Surgical History Knee scope-Osteoarthritis 2012 Surgical History Hysterectomy 2013 Surgical History Tonsillectomy 1977 Surgical History Right TKA- Dr. Calabrese 12/2018 Goals Section No Information Health Concerns No Information MEDICAL EQUIPMENT No Information MENTAL STATUS No Information FUNCTIONAL STATUS No Information ASSESSMENTS No Information PLAN OF TREATMENT Medication Medication Name Sig Start Date Stop Date Verapamil HCl ER 120 MG TAKE 1 TABLET BY MOUTH EVERY DAY for 90 Spironolactone 25 MG 1 tablet Orally Once a day for 90 days Accu-Chek FastClix Lancets - as directed in vitro twice daily for 90 days ReliOn Prime Test - as directed In Vitro twice a day for 90 days Venlafaxine HCl ER 150 MG 1 capsule with food Orally Once a day for 90 days CPAP Machine max pressure 9 cm of nightly water Atorvastatin Calcium 40 MG 1 tablet Orally Once a day for 90 days Ropinirole HCl 2 MG 1 tablet 1 to 3 hours before bedtime Orally Once a day for 90 days Quetiapine Fumarate 200 MG 1 tablet Orally Once a day for 90 days Breo Ellipta 100-25 MCG/INH 1 puff Inhalation Once a day for 30 days Venlafaxine HCl 75 MG 1 tablet with food Orally Once a day for 90 days Metformin HCl 500 MG TAKE 1 TABLET BY MOUTH TWICE A DAY WITH A MEAL for 90 Losartan Potassium 100 MG TAKE 1 TABLET BY MOUTH EVERY DAY for 90 Levothyroxine Sodium 100 MCG 1 tablet on an empty stomach in the morning Orally Once a day for 90 Pantoprazole Sodium 40 MG TAKE 1 TABLET BY MOUTH EVERY DAY for 90 Next Appt Details Provider Name:Reji Farris, 2020-09-08 0 8:30:00 AM, [address], [place], [address], Provider Name:Reji Farris 2020-09-15 1 1:00:00 AM, [address], [place], [address], Insurance Providers Payer Name Payer Address Payer Insured Patient Coverage Cover age End Phone Name Relationship to Start Date David e Insured [employer] [address] [place] [phone]
--- OUTSIDE RECORDS SUMMARY | 2020-11-08 16:06 | XMS REPORT | Summary of Care ---
:1960 Author Organization [facility] Address [address] [place] [address] Care Team Providers Name Role Phone Rey Farris Primary Care Provider Encounter Details Date Type Department Care Team Description 09/04/2020 Orders Only [facility] Doctor Unassigned, No [address] [facility] [place] [address] [address] [id number] Allergies Active Allergy Reactions Severity Noted Date [...] cinnamon Take by mouth. 0 Acti ve [id number] 500-100-150 mg-mcg-mg Cap calcium Take by mouth. [...] Added automatically from request for michela sky [id number] Total knee replacement status 01/07/2019 Primary osteoarthritis of right knee 01/02/2019 Overview: Added automatically from request for michela sky [id number] Hypoxia 04/11/2018 Morbid obesity with body mass [...] of this encounter Implants Implanted Type Area Farmworker Device Shelf Model / Identifier Expiration Serial / Date Lot Bone Cement Palacos R Radiopaque Ayaan #[id number] - [id number] CEMENT Right: Ayaan 08/23/2019 [id number] / Implanted: Qty: 1 on 01/07/2019 by Sedrick Kendall MD at [facility] Knee 8 [id number] / [id number] Cement Simplex Hv #6194-1-001 - Sn/A CEMENT Left: Dixon 01/20/2021 [id number] / Implanted: Qty: 1 on 12/09/2019 by Sedrick Kendall MD at [facility] Knee N /A / [id number] Bearing Tibial 10 X 63/67 Mm #911036 - [id number] KNEE Right: Bio met 08/24/2023 [id number] / Implanted: Qty: 1 on 01/07/2019 by Sedrick Kendall MD at [facility] Knee 9 [id number] / [id number] Patella 8 X 31mm Biomet#575054 - [id number] KNEE Right: Biomet 08/29/2023 [id number] / Implanted: Qty: 1 on 01/07/2019 by Sedrick Kendall MD at [facility] Knee 1 26610 / [id number] Cr Femoral Right KNEE Right: Biomet 01/21/2028 18 3042 / Implanted: Qty: 1 on 01/07/2019 by Sedrick Kendall MD at [facility] Knee 1 [id number] / [id number] Component Patella 32mm Vera 8mm Biomet #728470 - [id number] Other Le ft: Biomet 11/11/2024 704408 / Implanted: Qty: 1 on 12/09/2019 by Sedrick Kendall MD at [facility] Implant Knee 1 85903 / [id number] Adc Plate Tibial Cruciate 67 Mm - [id number] PLATE Right: Biomet 05/03/2028 978147 / Implanted: Qty: 1 on 01/07/2019 by Sedrick Kendall MD at [facility] Knee J [id number] / [id number] Screw Acetabular 6.5mm Vera 30mml Cancellous Ayaan #539927 - [id number] Left: Biomet 09/02/2029 [id number] / Implanted: Qty: 4 on 12/09/2019 by Sedrick Kendall MD at [facility] Knee 1 17029 / [id number] Component Tibial Tray Cementless 67mml Biomet #477332 - [id number] Left: Biomet 03/20/2024 032518 / Implanted: Qty: 1 on 12/09/2019 by Sedrick Kendall MD at [facility] Knee 1 57363 / [id number] Bearing Tibial 10 X 63/67 Mm #632861 - [id number] Left: Bio met 07/01/2024 506249 / Implanted: Qty: 1 on 12/09/2019 by Sedrick Kendall MD at [facility] Knee 1 00896 / [id number] Adc Femur 57.5 Mm Left - [id number] Left: Biomet 02/11/2029 936197 / Implanted: Qty: 1 on 12/09/2019 by Sedrick Kendall MD at [facility] Knee 1 32981 / [id number] Stem Finned Primary 40mm Biomet #636437 - [id number] Left: Biomet 11/19/2029 191881 / Implanted: Qty: 1 on 12/09/2019 by Sedrick Kendall MD at [facility] Knee 1 32500 / [id number] documented as of this encounter Procedures Procedure Name Priority Date/Time Associated Diagnosis Comme nts RADIOLOGY DOCUMENTATION Routine 09/04/2020 12:01 AM 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
--- OUTSIDE RECORDS SUMMARY | 2020-11-08 16:07 | XMS REPORT ---
:1960 Author Organization [facility] Address [address] [place] [address] Care Team Providers Name Role Phone Farris Unavailable [phone] PROBLEMS Type Condition ICD9-CM [id number] Onset Condition SNOMED Code Notes Code Code Dates Status Problem Essential I10 Active 25150806 (primary) hypertension Problem GERD without K21.9 Active 758204758 esophagitis Problem Restless leg G25.81 Active 73198106 syndrome Problem Acquired E03.9 Active 737968482 hypothyroidism Problem Generalized F41.1 Active 34346596 anxiety disorder Problem Obstructive sleep G47.33 Active 67716599 apnea (adult) (pediatric) Problem Current moderate F32.1 Active 32856671 episode of major depressive disorder without prior episode Problem 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 Active 430225491 other enabling machines and devices Problem Primary M17.0 Active 626936168 osteoarthritis of both knees Problem Mixed E78.2 Active 992565476 hyperlipidemia Problem Chronic J44.9 Active 74840269 obstructive pulmonary disease, unspecified COPD type Problem Encounter for Z01.00 Active 114580765 examination of eyes and vision without abnormal findings Problem Insomnia, G47.00 Active 423561547 unspecified type Problem Chronic F32.9 Active 641815044 depression Problem Type 2 diabetes E11.9 Active 250490918 mellitus without complications Problem Controlled type 2 E11.9 Active 645918613 diabetes mellitus without complication, without long-term current use of insulin Problem Morbid (severe) E66.01 Active 946081605 obesity due to excess calories Problem Status post right Z96.651 Active 1285412362226 knee replacement Problem Urinary R32 Active 909693777 incontinence, unspecified type Problem Mixed stress and N39.46 Active 401952144 urge urinary incontinence Problem Status post total Z96.652 Active 1828413251841 left knee replacement ALLERGIES Allergen (clinical drug Drug/Non Drug Allergy Reaction Allergy Type Onset Date Status ingredient) documented on EMR Toradol Unknown Drug Allergy Active Wellbutrin Unknown Drug Allergy Active ENCOUNTERS from 1960 to 2020-09-16 Encounter Location Date Provider Diagnosis [facility] [address] [facility] Aug, [facility] [address] [place], [place] [id number] depressive dis order without prior episode F32.1 IMMUNIZATIONS Vaccine Route Administration Date Status Fluzone [...] No information MEDICATIONS Medication SIG (Take, Route, Notes Start Date End Date Status Frequency, Duration) Losartan Potassium 100 MG TAKE 1 TABLET BY MOUTH Active EVERY DAY for 90 Diclofenac Sodium 1 % as directed Transdermal Active Twice a day Pantoprazole Sodium 40 MG TAKE 1 TABLET BY MOUTH Active EVERY DAY for 90 Venlafaxine HCl ER 150 MG 1 capsule with food in Active the morning Orally Once a day for 30 days Metformin HCl 500 MG TAKE 1 TABLET BY MOUTH Active TWICE A DAY WITH A MEAL for 90 Ropinirole HCl 2 MG 1 tablet 1 to 3 hours Active before bedtime Orally Once a day for 90 days Atorvastatin Calcium 20 MG TAKE 1 TABLET BY MOUTH Active EVERY DAY for 90 ReliOn Prime Test - as directed In Vitro Active twice a day for 90 days Accu-Chek FastClix Lancets as directed in vitro Active - twice daily for 90 days Verapamil HCl ER 120 MG TAKE 1 TABLET BY MOUTH Active EVERY DAY for 90 CPAP Machine max pressure 9 nightly Active cm of water Quetiapine Fumarate 200 MG 1 tablet Orally Once a Active day for 90 days Atorvastatin Calcium 40 MG 1 tablet Orally Once a Active day for 90 days Breo Ellipta 100-25 MCG/INH 1 puff Inhalation Twice Active a day Breo Ellipta 100-25 MCG/INH 1 puff Inhalation Once a Active day for 30 days Hydrocodone-Acetaminophen 1 tablet as needed Active 7.5-325 MG Orally PRN Levothyroxine Sodium 100 1 tablet on an empty Active MCG stomach in the morning Orally Once a day for 90 Spironolactone 25 MG 1 tablet Orally Once a Active day for 90 days Venlafaxine HCl 75 MG 1 tablet with food at Active night Orally Once a day for 30 days OneTouch Verio - TEST BLOOD SUGAR ONCE A Unknown DAY for 90 PROCEDURES No Information RESULTS No Results REASON FOR VISIT refill venlafaxine MEDICAL (GENERAL) HISTORY Type Description Date Medical [...] No Information FUNCTIONAL STATUS No Information ASSESSMENTS Encounter Date Diagnosis Assessment Notes Treatment Notes Treatm ent Clinical Notes Aug, Current moderate episode of major depressive disorder without prior episode (ICD-10 - F32.1) PLAN OF TREATMENT Medication Medication Name Sig [...] Vitro twice a day for 90 days Quetiapine Fumarate 200 MG 1 tablet Orally Once a day for 90 days Venlafaxine HCl ER 150 MG 1 capsule with food in the morning Orally Once a day for 30 days Atorvastatin Calcium 40 MG 1 tablet Orally Once a day for 90 days Ropinirole HCl 2 MG 1 tablet 1 to 3 hours before bedtime Orally Once a day for 90 days Breo Ellipta 100-25 MCG/INH 1 puff Inhalation Once a day for 30 days Venlafaxine HCl 75 MG 1 tablet with food at night Orally Once a day for 30 days CPAP Machine max pressure 9 cm of nightly water Metformin HCl 500 MG TAKE 1 [...] 90 Next Appt Details Provider Name:Reji Farris, 2020-09-22 0 3:20:00 PM, [address], [place], [address], Insurance Providers Payer Name Payer Address Payer Insured Patient Coverage Cover age End Phone Name Relationship to Start Date David e Insured [employer] [address] [place] [phone]
--- OUTSIDE RECORDS SUMMARY | 2020-11-08 16:07 | XMS REPORT | Summary of Care ---
:1960 Author Organization [facility] Address [address] [place] [address] Care Team Providers Name Role Phone Rey Farris Primary Care Provider Reason for Referral Radiology Services (Routine) Status Reason Specialty Diagnoses / Referred By Referred To Procedures Contact Contact New Request Diagnostic Diagnoses Mammographic calcification found on diagnostic imaging of breast Breast mass, left Gramm, Veronica Radiology Procedures BI DIAGNOSTIC MAMMOGRAM BILATERAL A, OIL BURNER SERVICER AND INSTALLER [address] [place] [address] Reason for Visit Radiology Services (Routine) Status Reason Specialty Diagnoses / Referred By Referred To Procedures Contact Contact New Request Diagnostic Diagnoses Mammographic calcification found on diagnostic imaging of breast Breast mass, left Gramm, Veronica Radiology Procedures BI DIAGNOSTIC MAMMOGRAM BILATERAL A, OIL BURNER SERVICER AND INSTALLER [address] [place] [address] Encounter Details Date Type Department Care Team Description 09/04/2020 Hospital Encounter [facility] Gramm , Veronica A, OIL BURNER SERVICER AND INSTALLER Arrived [facility] Karen ry [address] [phone] Allergies Active Allergy Reactions Severity Noted Date Comments Bupropion Hcl Itching 04/06/2016 Diclofenac Sodium Swelling 01/07/2020 redness Gabapentin Other - See comments 04/20/2020 Weight gain and sleep walk Latex, Natural Rubber Itching Medium 01/08/2019 Ketorolac Tromethamine Anaphylaxis 08/04/2015 Bupropion Unknown - See comments 08/04/2015 Zolpidem Unknown - See comments 04/06/2016 Sleep walk documented as of this encounter (statuses as of 09/05/2020) Medications Medication Sig Dispensed Refills Start Date [...] cinnamon Take by mouth. 0 Acti ve [id number]-[id number] 500-100-150 mg-mcg-mg Cap calcium Take by mouth. [...] as of this encounter (statuses as of 09/05/2020) Active Problems Problem Noted Date Primary osteoarthritis of left knee 12/05/2019 Overview: Added automatically from request for michela sky [id number] Total knee replacement status 01/07/2019 Primary osteoarthritis of right knee 01/02/2019 Overview: Added automatically from request for michela sky [id number] Hypoxia 04/11/2018 Morbid obesity with body mass index of 40.0-49.9 04/11 Knee pain, left 01/18/2016 Right knee pain 08/04/2015 documented as of this encounter (statuses as of 09/05/2020) Immunizations Name Administration Dates Next Due Pneumococcal [...] Name Type Priority Associated Diagnoses Date/Ti me BI DIAGNOSTIC IMAGING Routine Mammographic 09/04/2020 2: 23 PM MAMMOGRAM BILATERAL calcification found o n GENERAL OFFICE ASSOCIATE diagnostic imaging of breast Breast mass, left Health Maintenance Due [...] of this encounter Implants Implanted Type Area Engine Cowling Installer Device Shelf Model / Identifier Expiration Serial / Date Lot Bone Cement Palacos R Radiopaque Ayaan #[id number] - [id number] CEMENT Right: Ayaan 08/23/2019 [id number] / Implanted: Qty: 1 on 01/07/2019 by Sedrick Kendall MD at [facility] Knee 8 [id number] / [id number] Cement Simplex Hv #[id number] - Sn/A CEMENT Left: Dixon 01/20/2021 6194-1-001 / Implanted: Qty: 1 on 12/09/2019 by Sedrick Kendall MD at [facility] Knee N /A / [id number] Bearing Tibial 10 X 63/67 Mm #572523 - [id number] KNEE Right: Bio met 08/24/2023 123974 / Implanted: Qty: 1 on 01/07/2019 by Sedrick Kendall MD at [facility] Knee 9 [id number] / [id number] Patella 8 X 31mm Biomet#100846 - [id number] KNEE Right: Biomet 08/29/2023 [id number] / Implanted: Qty: 1 on 01/07/2019 by Sedrick Kendall MD at [facility] Knee 1 41241 / [id number] Cr Femoral Right KNEE Right: Biomet 01/21/2028 18 3042 / Implanted: Qty: 1 on 01/07/2019 by Sedrick Kendall MD at [facility] Knee 1 [id number] / [id number] Component Patella 32mm Vera 8mm Biomet #455631 - [id number] Other Le ft: Biomet 11/11/2024 486757 / Implanted: Qty: 1 on 12/09/2019 by Sedrick Kendall MD at [facility] Implant Knee 1 [id number] / [id number] Adc Plate Tibial Cruciate 67 Mm - [id number] PLATE Right: Biomet 05/03/2028 081929 / Implanted: Qty: 1 on 01/07/2019 by Sedrick Kendall MD at [facility] Knee J [id number] / [id number] Screw Acetabular 6.5mm Vera 30mml Cancellous Ayaan #559012 - [id number] Left: Biomet 09/02/2029 [id number] / Implanted: Qty: 4 on 12/09/2019 by Sedrick Kendall MD at [facility] Knee 1 [id number] / [id number] Component Tibial Tray Cementless 67mml Biomet #126020 - [id number] Left: Biomet 03/20/2024 [id number] / Implanted: Qty: 1 on 12/09/2019 by Sedrick Kendall MD at [facility] Knee 1 [id number] / [id number] Bearing Tibial 10 X 63/67 Mm #993345 - [id number] Left: Bio met 07/01/2024 964179 / Implanted: Qty: 1 on 12/09/2019 by Sedrick Kendall MD at [facility] Knee 1 [id number] / [id number] Adc Femur 57.5 Mm Left - [id number] Left: Biomet 02/11/2029 [id number] / Implanted: Qty: 1 on 12/09/2019 by Sedrick Kendall MD at [facility] Knee 1 [id number] / [id number] Stem Finned Primary 40mm Biomet #741905 - [id number] Left: Biomet 11/19/2029 [id number] / Implanted: Qty: 1 on 12/09/2019 by Sedrick Kendall MD at [facility] Knee 1 12689 / [id number] documented as of this encounter Procedures Procedure Name Priority Date/Time Associated Diagnosis Comme nts BI DIAGNOSTIC Routine 09/04/2020 2:23 PM Mammographic MAMMOGRAM BILATERAL GENERAL OFFICE ASSOCIATE calcification found o n diagnostic imaging of breast Breast mass, left Procedure Note - Skylar Rayo MD - 09/04/2020 5:00 PM GENERAL OFFICE ASSOCIATE Examination: Outside film review of mammogram . Agree with outside imaging o f microcalcifications in the left upper outer mid depth . Further evaluation with stereotactic biopsy of these calcifications advised. BI-RADS Category: Overall: 4B - biopsy is desmond mmended. Recommendation: Stereotactic biopsy is advis ed.. documented in this encounter Results Not on filedocumented in this encounter Visit Diagnoses Diagnosis Mammographic calcification found on diag nostic imaging of breast Other (abnormal) findings on radiologica l examination of breast Breast mass, left Lump or mass in breast documented in this encounter Insurance Payer Benefit Plan / Subscriber ID Effective Dates Phone Addre ss Type Group [facility] [id number] 2018-Presen Medicare Adv PLUS PLUS t HMO CLASSIC/VALUE documented as of this encounter
--- OUTSIDE RECORDS SUMMARY | 2020-11-08 16:07 | XMS REPORT | Summary of Care ---
:1960 Author Organization [facility] Address [address] [place] [address] Care Team Providers Name Role Phone Rey Farris Primary Care Provider Reason for Referral Radiology Services (Routine) Status Reason Specialty Diagnoses / Referred By Referred To Procedures Contact Contact Closed Diagnostic Diagnoses Breast calcification, left Rossana Pozo Radiology Procedures BI STEREOTACTIC CORE BREAST BIOPSY KY Cheng MD [address] [place] [phone] Reason for Visit Radiology Services (Routine) Status Reason Specialty Diagnoses / Referred By Referred To Procedures Contact Contact Closed Diagnostic Diagnoses Breast calcification, left Rossana Pozo Radiology Procedures BI STEREOTACTIC CORE BREAST BIOPSY KY Cheng MD [address] [place] [phone] Encounter Details Date Type Department Care Team Description 09/15/2020 Hospital Encounter [facility] David Pozo S, Arrived [place] Breast Ara reeves MD [address] [facility] [address] [place] [phone] Allergies Active Allergy Reactions Severity Noted Date Comments Bupropion Hcl Itching 04/06/2016 Diclofenac Sodium Swelling 01/07/2020 redness Gabapentin Other - See comments 04/20/2020 Weight gain and sleep walk Latex, Natural Rubber Itching Medium 01/08/2019 Ketorolac Tromethamine Anaphylaxis 08/04/2015 Bupropion Unknown - See comments 08/04/2015 Zolpidem Unknown - See comments 04/06/2016 Sleep walk documented as of this encounter (statuses as of 09/16/2020) Medications Medication Sig Dispensed Refills Start Date [...] cinnamon Take by mouth. 0 Acti ve xbym-gbzhwuis-QDR 500-100-150 mg-mcg-mg Cap calcium Take by mouth. [...] as of this encounter (statuses as of 09/16/2020) Active Problems Problem Noted Date Primary osteoarthritis of left knee 12/05/2019 Overview: Added automatically from request for michela sky [id number] Total knee replacement status 01/07/2019 Primary osteoarthritis of right knee 01/02/2019 Overview: Added automatically from request for michela sky [id number] Hypoxia 04/11/2018 Morbid obesity with body mass index of 40.0-49.9 04/11 Knee pain, left 01/18/2016 Right knee pain 08/04/2015 documented as of this encounter (statuses as of 09/16/2020) Immunizations Name Administration Dates Next Due Pneumococcal [...] been in contact with No / Unsure 09/15/2020 2:09 PM DISPLAY MECHANIC someone who was confirmed or suspected to have Coronavirus / COVID-19? documented as of this encounter Last Filed Vital Signs Not on filedocumented in this encounter Plan of Treatment Name Type Priority Associated Diagnoses Date/Ti me BI STEREOTACTIC CORE IMAGING Routine Breast calcification , 09/15/2020 4:15 PM BREAST BIOPSY LEFT left DISPLAY MECHANIC SURGICAL PATHOLOGY EXAM LAB STAT 08/24 3:33 PM DISPLAY MECHANIC Name Type Priority Associated Diagnoses Order S chedule BI STEREOTACTIC CORE IMAGING Routine Breast calcification , ONCE for 1 Occurrences BREAST BIOPSY LEFT left starting 09/15/2020 until 0 SURGICAL PATHOLOGY EXAM LAB Routine Rele ase Upon Ordering for 1 Occurrenc es starting 2019 Health Maintenance Due Date Last Done Comments HEPATITIS C (HCV) SCREEN 1960 DTaP,Tdap,and Td Vaccines (1 - 12/24/1978 Tdap) PAP SMEAR 12/24/1980 COLON CANCER SCREENING ANNUAL 12/24/2009 FIT/FOBT COLON CANCER SCREENING FIT DNA 12/24/2009 EVERY 3 YEARS COLON CANCER SCREENING 12/24/2009 SIGMOIDOSCOPY EVERY 5 YEARS COLONOSCOPY 12/24/2009 Colorectal Cancer Screening 12/24/2009 Zoster Recombinant Vaccine 12/24/2009 (SHINGRIX) (1 of 2) INFLUENZA VACCINE (#1) 2020 Depression Screening 12/23/2020 12/24/2019 Breast Cancer Screening 09/04/2021 09/04/2020 (MAMMOGRAM) PNEUMOCOCCAL 0-64 YEARS COMBINED Aged Out 01/08/2019 No longer eligible based on SERIES patient's age to complete this topic documented as of this encounter Implants Implanted Type Area Medical Claims Representative Device Shelf Model / Identifier Expiration Serial / Date Lot Bone Cement Palacos R Radiopaque Ayaan #[id number] - [id number] CEMENT Right: Ayaan 08/23/2019 [id number] / Implanted: Qty: 1 on 01/07/2019 by Sedrick Kendall MD at [facility] Knee 8 [id number] / [id number] Cement Simplex Hv #6194-1-001 - Sn/A CEMENT Left: [place] 01/20/2021 6194-1-001 / Implanted: Qty: 1 on 12/09/2019 by Sedrick Kendall MD at [facility] Knee N /A / [id number] Bearing Tibial 10 X 63/67 Mm #662286 - [id number] KNEE Right: Bio met 08/24/2023 017631 / Implanted: Qty: 1 on 01/07/2019 by Sedrick Kendall MD at [facility] Knee 9 16434 / [id number] Patella 8 X 31mm Biomet#258311 - [id number] KNEE Right: Biomet 08/29/2023 [id number] / Implanted: Qty: 1 on 01/07/2019 by Sedrick Kendall MD at [facility] Knee 1 14136 / [id number] Cr Femoral Right KNEE Right: Biomet 01/21/2028 18 3042 / Implanted: Qty: 1 on 01/07/2019 by Sedrick Kendall MD at [facility] Knee 1 [id number] / [id number] Component Patella 32mm Vera 8mm Biomet #280639 - [id number] Other Le ft: Biomet 11/11/2024 149652 / Implanted: Qty: 1 on 12/09/2019 by Sedrick Kendall MD at [facility] Implant Knee 1 20404 / [id number] Adc Plate Tibial Cruciate 67 Mm - [id number] PLATE Right: Biomet 05/03/2028 843962 / Implanted: Qty: 1 on 01/07/2019 by Sedrick Kendall MD at [facility] Knee J [id number] / [id number] Screw Acetabular 6.5mm Vera 30mml Cancellous Ayaan #258401 - [id number] Left: Biomet 09/02/2029 525475 / Implanted: Qty: 4 on 12/09/2019 by Sedrick Kendall MD at [facility] Knee 1 87338 / [id number] Component Tibial Tray Cementless 67mml Biomet #404252 - [id number] Left: Biomet 03/20/2024 135174 / Implanted: Qty: 1 on 12/09/2019 by Sedrick Kendall MD at [facility] Knee 1 72239 / [id number] Bearing Tibial 10 X 63/67 Mm #730585 - [id number] Left: Bio met 07/01/2024 287773 / Implanted: Qty: 1 on 12/09/2019 by Sedrick Kendall MD at [facility] Knee 1 85580 / [id number] Adc Femur 57.5 Mm Left - [id number] Left: Biomet 02/11/2029 884738 / Implanted: Qty: 1 on 12/09/2019 by Sedrick Kendall MD at [facility] Knee 1 35645 / [id number] Stem Finned Primary 40mm Biomet #522684 - [id number] Left: Biomet 11/19/2029 793335 / Implanted: Qty: 1 on 12/09/2019 by Sedrick Kendall MD at [facility] Knee 1 59045 / [id number] documented as of this encounter Results Not on filedocumented in this encounter Visit Diagnoses Diagnosis Breast calcification, left Other (abnormal) findings on radiologica l examination of breast documented in this encounter Insurance Payer Benefit Plan / Subscriber ID Effective Dates Phone Addre ss Type Group [employer] [place] [employer] [place] [id number] 2018-Presen Medicare Adv PLUS PLUS t HMO CLASSIC/VALUE documented as of this encounter
--- OUTSIDE RECORDS SUMMARY | 2020-11-08 16:07 | XMS REPORT | Summary of Care ---
:1960 Author Organization [facility] Address [address] [place] [address] Care Team Providers Name Role Phone Rey Farris Primary Care Provider Reason for Visit Radiology Services (Routine) Status Reason Specialty Diagnoses / Referred By Referred To Procedures Contact Contact New Request Diagnostic Diagnoses Breast calcification, left Rossana Pozo Radiology Procedures BI DIAGNOSTIC TOMOSYNTHESIS LEFT BI DIAGNOSTIC TOMOSYNTHESIS RIGHT S, [address] [place] [address] Encounter Details Date Type Department Care Team Description 09/15/2020 Hospital Encounter [facility] David Pozo S, [facility] Breast Ara g [address] [facility] [address] [place] [phone] Allergies Active Allergy Reactions Severity Noted [...] cinnamon Take by mouth. 0 Acti ve cybi-mpzeajmk-BJM 500-100-150 mg-mcg-mg Cap calcium Take by mouth. [...] Added automatically from request for michela sky [id number] Total knee replacement status 01/07/2019 Primary osteoarthritis of right knee 01/02/2019 Overview: Added automatically from request for michela sky [id number] Hypoxia 04/11/2018 Morbid obesity with body mass [...] with No / Unsure 09/15/2020 2:09 PM VASCULAR SONOGRAPHER someone who was confirmed or suspected to have Coronavirus / COVID-19? documented as of this encounter Last Filed Vital Signs Not on filedocumented in this encounter Plan of Treatment Name Type Priority Associated Diagnoses Date/Ti me BI DIAGNOSTIC IMAGING Routine Breast calcification, 09/15 2:51 PM TOMOSYNTHESIS LEFT left VASCULAR SONOGRAPHER Name Type Priority Associated Diagnoses Order S chedule BI DIAGNOSTIC IMAGING Routine Breast calcification, ONCE for 1 Occurrences TOMOSYNTHESIS LEFT left starting 09/15/2020 until 0 Health Maintenance Due Date Last [...] of this encounter Implants Implanted Type Area Starch Factory Laborer Device Shelf Model / Identifier Expiration Serial / Date Lot Bone Cement Palacos R Radiopaque Ayaan #[id number] - [id number] CEMENT Right: Ayaan 08/23/2019 [id number] / Implanted: Qty: 1 on 01/07/2019 by Sedrick Kendall MD at [facility] Knee 8 [id number] / [id number] Cement Simplex Hv #6194-1-001 - Sn/A CEMENT Left: [place] 01/20/2021 6194-1-001 / Implanted: Qty: 1 on 12/09/2019 by Sedrick Kendall MD at [facility] Knee N /A / [id number] Bearing Tibial 10 X 63/67 Mm #367646 - [id number] KNEE Right: Bio met 08/24/2023 669889 / Implanted: Qty: 1 on 01/07/2019 by Serdick Kendall MD at [facility] Knee 9 95743 / [id number] Patella 8 X 31mm Biomet#530654 - [id number] KNEE Right: Biomet 08/29/2023 990241 / Implanted: Qty: 1 on 01/07/2019 by Sedrick Kendall MD at [facility] Knee 1 97381 / [id number] Cr Femoral Right KNEE Right: Biomet 01/21/2028 18 3042 / Implanted: Qty: 1 on 01/07/2019 by Sedrick Kendall MD at [facility] Knee 1 70895 / [id number] Component Patella 32mm Vera 8mm Biomet #566398 - [id number] Other Le ft: Biomet 11/11/2024 431709 / Implanted: Qty: 1 on 12/09/2019 by Sedrick Kendall MD at [facility] Implant Knee 1 42331 / [id number] Adc Plate Tibial Cruciate 67 Mm - [id number] PLATE Right: Biomet 05/03/2028 181367 / Implanted: Qty: 1 on 01/07/2019 by Sedirck Kendall MD at [facility] Knee J [id number] / [id number] Screw Acetabular 6.5mm Vera 30mml Cancellous Ayaan #830262 - [id number] Left: Biomet 09/02/2029 857598 / Implanted: Qty: 4 on 12/09/2019 by Sedrick Kendall MD at [facility] Knee 1 80323 / [id number] Component Tibial Tray Cementless 67mml Biomet #540077 - [id number] Left: Biomet 03/20/2024 782348 / Implanted: Qty: 1 on 12/09/2019 by Sedrick Kendall MD at [facility] Knee 1 15536 / [id number] Bearing Tibial 10 X 63/67 Mm #400559 - [id number] Left: Bio met 07/01/2024 134934 / Implanted: Qty: 1 on 12/09/2019 by Sedrick Kendall MD at [facility] Knee 1 01653 / [id number] Adc Femur 57.5 Mm Left - [id number] Left: Biomet 02/11/2029 134790 / Implanted: Qty: 1 on 12/09/2019 by Sedrick Kendall MD at [facility] Knee 1 75890 / [id number] Stem Finned Primary 40mm Biomet #514995 - [id number] Left: Biomet 11/19/2029 380028 / Implanted: Qty: 1 on 12/09/2019 by Sedrick Kendall MD at [facility] Knee 1 98641 / [id number] documented as of this encounter Results Not on filedocumented in this encounter Visit Diagnoses Diagnosis Breast calcification, left Other (abnormal) findings on radiologica l examination of breast documented in this encounter Insurance Payer Benefit Plan / Subscriber ID Effective Dates Phone Addre ss Type Group [employer] [place] [employer] [place] [id number] 2018-Presen Medicare Adv PLUS PLUS t HMO CLASSIC/VALUE documented as of this encounter
--- OUTSIDE RECORDS SUMMARY | 2020-11-08 16:08 | XMS REPORT | Summary of Care ---
:1960 Author Organization [facility] Address [address] [place] [address] Care Team Providers Name Role Phone Rey Farris Primary Care Provider Reason for Visit Reason Comments Refill Request Encounter Details Date Type Department Care Team Description 10/19/2020 Refill [facility] Orthopaedic Steven Bansal S, PAC Refill Request Surgery- [place] [address], [place] [address] [place] [address] [phone] Allergies Active Allergy Reactions Severity Noted Date Comments Bupropion Hcl Itching 04/06/2016 Diclofenac Sodium Swelling 01/07/2020 redness Gabapentin Other - See comments 04/20/2020 Weight gain and sleep walk Latex, Natural Rubber Itching Medium 01/08/2019 Ketorolac Tromethamine Anaphylaxis 08/04/2015 Bupropion Unknown - See comments 08/04/2015 Zolpidem Unknown - See comments 04/06/2016 Sleep walk documented as of this encounter (statuses as of 10/20/2020) Medications Medication Sig Dispensed Refills Start Date [...] (scale 7-10) (Maximum 10 tablets a day). albuterol 2.5 mg /3 1 NEBULE PER 0 03/04/2020 Active mL (0.083 %) NEBULIZER EVERY nebulizer solution 8 HOURS NEEDED melatonin 3 mg Take 3 mg by 0 Ac tive tablet mouth 3 (three) times daily. cinnamon Take by mouth. 0 Acti ve ckyv-tuttxgte-ZRP 500-100-150 mg-mcg-mg Cap calcium Take by mouth. 0 Acti ve carbonate/vitamin D3 (CALCIUM 500 + D ORAL) Cholecalciferol, Take by mouth. 0 Active Vitamin D3, (D3-2000) 50 mcg (2,000 unit) capsule MILK THISTLE ORAL Take 350 mg by 0 Active mouth. evening primrose oil Take 100 mg by 0 Active (EVENING PRIMROSE mouth. ORAL) DICLOFENAC SODIUM 1 APPLY TO 100 g 0 09/21/2020 Active % gelIndications: AFFECTED AREA Status post total TWICE A DAY knee replacement, NEEDED FOR PAIN left APPLY 2 GRAMS DO NOT EXCEED 4 GRAMS IN A DAY MELOXICAM 7.5 mg TAKE 1 TABLET 30 tablet 1 10/20/2020 Active tabletIndications: BY MOUTH EVERY Status post total DAY knee replacement, left MELOXICAM 7.5 mg TAKE 1 TABLET 30 tablet 1 08/27/2020 10/20/20 2 Discontinued tabletIndications: BY MOUTH EVERY 0 Status post total DAY knee replacement, left documented as of this encounter (statuses as of 10/20/2020) Active Problems Problem Noted Date Primary osteoarthritis of left knee 12/05/2019 Overview: Added automatically from request for michela sky [id number] Total knee replacement status 01/07/2019 Primary osteoarthritis of right knee 01/02/2019 Overview: Added automatically from request for michela sky [id number] Hypoxia 04/11/2018 Morbid obesity with body mass index of 40.0-49.9 04/11 Knee pain, left 01/18/2016 Right knee pain 08/04/2015 documented as of this encounter (statuses as of 10/20/2020) Immunizations Name Administration Dates Next Due Pneumococcal [...] been in contact with No / Unsure 09/22/2020 12:44 PM [address]M SETTER [address] [address] FORMS someone who was confirmed or suspected to have Coronavirus / COVID-19? documented as of this encounter Last Filed Vital Signs Not on filedocumented in this encounter Plan of Treatment Health Maintenance Due Date Last Done Comments HEPATITIS C (HCV) SCREEN 1960 DTaP,Tdap,and Td Vaccines ( - 12/24/1978 Tdap) PAP SMEAR 12/24/1980 COLON [...] of this encounter Implants Implanted Type Area Press Catcher Device Shelf Model / Identifier Expiration Serial / Date Lot Bone Cement Palacos R Radiopaque Ayaan #[id number] - [id number] CEMENT Right: Ayaan 08/23/2019 [id number] / Implanted: Qty: 1 on 01/07/2019 by Sedrick Kendall MD at [facility] Knee 8 [id number] / [id number] Cement Simplex Hv #6194-1-001 - Sn/A CEMENT Left: [place] 01/20/2021 6194-1-001 / Implanted: Qty: 1 on 12/09/2019 by Sedrick Kendall MD at [facility] Knee N /A / [id number] Bearing Tibial 10 X 63/67 Mm #109632 - [id number] KNEE Right: Bio met 08/24/2023 882833 / Implanted: Qty: 1 on 01/07/2019 by Sedrick Kendall MD at [facility] Knee 9 84645 / [id number] Patella 8 X 31mm Biomet#508004 - [id number] KNEE Right: Biomet 08/29/2023 410363 / Implanted: Qty: 1 on 01/07/2019 by Sedrick Kendall MD at [facility] Knee 1 70156 / [id number] Cr Femoral Right KNEE Right: Biomet 01/21/2028 18 3042 / Implanted: Qty: 1 on 01/07/2019 by Sedrick Kendall MD at [facility] Knee 1 07312 / [id number] Component Patella 32mm Vera 8mm Biomet #786533 - [id number] Other Le ft: Biomet 11/11/2024 468688 / Implanted: Qty: 1 on 12/09/2019 by Sedrick Kendall MD at [facility] Implant Knee 1 06535 / [id number] Adc Plate Tibial Cruciate 67 Mm - [id number] PLATE Right: Biomet 05/03/2028 549705 / Implanted: Qty: 1 on 01/07/2019 by Sedrick Kendall MD at [facility] Knee J [id number] / [id number] Screw Acetabular 6.5mm Vera 30mml Cancellous Ayaan #992724 - [id number] SCREW Left: Biomet 09/02/2029 050802 / Implanted: Qty: 4 on 12/09/2019 by Sedrick Kendall MD at [facility] Knee 1 66322 / [id number] Component Tibial Tray Cementless 67mml Biomet #852488 - [id number] Left: Biomet 03/20/2024 556748 / Implanted: Qty: 1 on 12/09/2019 by Sedrick Kendall MD at [facility] Knee 1 89782 / [id number] Bearing Tibial 10 X 63/67 Mm #502662 - [id number] Left: Bio met 07/01/2024 275797 / Implanted: Qty: 1 on 12/09/2019 by Sedrick Kendall MD at [facility] Knee 1 48690 / [id number] Adc Femur 57.5 Mm Left - [id number] Left: Biomet 02/11/2029 738347 / Implanted: Qty: 1 on 12/09/2019 by Sedrick Kendall MD at [facility] Knee 1 52641 / [id number] Stem Finned Primary 40mm Biomet #946017 - [id number] Left: Biomet 11/19/2029 345229 / Implanted: Qty: 1 on 12/09/2019 by Sedrick Kendall MD at [facility] Knee 1 25867 / [id number] documented as of this encounter Results Not on filedocumented in this encounter Visit Diagnoses Diagnosis Status post total knee replacement, left documented in this encounter Insurance Payer Benefit Plan / Subscriber ID Effective Dates Phone Addre ss Type Group [employer] [place] [id number] 2018-Presen Medicare Adv PLUS PLUS t HMO CLASSIC/VALUE documented as of this encounter
--- OUTSIDE RECORDS SUMMARY | 2020-11-08 16:08 | XMS REPORT ---
:1960 Author Organization [facility] Address [address] [place], [address] [place] [address] Care Team Providers Name Role Phone Farris Unavailable [phone] PROBLEMS Type Condition ICD9-CM [id number] Onset Condition SNOMED Code Notes Code Code Dates Status Problem Essential I10 Active 18525275 (primary) hypertension Problem GERD without K21.9 Active 451056957 esophagitis Problem Restless leg G25.81 Active 76395944 syndrome Problem Acquired E03.9 Active 631916142 hypothyroidism Problem Generalized F41.1 Active 44258780 anxiety disorder Problem Obstructive sleep G47.33 Active 81627065 apnea (adult) (pediatric) Problem Current moderate F32.1 Active 81234158 episode of major depressive disorder without prior episode Problem 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 Active 545876976 other enabling machines and devices Problem Primary M17.0 Active 759339905 osteoarthritis of both knees Problem Mixed E78.2 Active 880241270 hyperlipidemia Problem Chronic J44.9 Active 94044407 obstructive pulmonary disease, unspecified COPD type Problem Encounter for Z01.00 Active 703029428 examination of eyes and vision without abnormal findings Problem Insomnia, G47.00 Active 812480297 unspecified type Problem Chronic F32.9 Active 381885930 depression Problem Type 2 diabetes E11.9 Active 713015838 mellitus without complications Problem Controlled type 2 E11.9 Active 667230283 diabetes mellitus without complication, without long-term current use of insulin Problem Morbid (severe) E66.01 Active 353041752 obesity due to excess calories Problem Status post right Z96.651 Active 7216406110054 knee replacement Problem Urinary R32 Active 787662314 incontinence, unspecified type Problem Mixed stress and N39.46 Active 149957946 urge urinary incontinence Problem Status post total Z96.652 Active 8157067846405 left knee replacement ALLERGIES Allergen (clinical drug Drug/Non Drug Allergy Reaction Allergy Type Onset Date Status ingredient) documented on EMR Toradol Unknown Drug Allergy Active Wellbutrin Unknown Drug Allergy Active ENCOUNTERS from 1960 to 2020-09-22 Encounter Location Date Provider Diagnosis [facility] [place] [address] [place] Sep, Reji Farris Mixed hyp erlipidemia Drive [address] [place], E78.2 ; [place] [address] 2 diabetes gary litus without complic ation, without long-te rm current use of insulin E11.9 ; Essenti al (primary) hyper tension I10 ; Acquired hypothyroidism E03.9 ; Insomnia, unspe cified type G47.00 ; G ERD without esophag itis K21.9 ; Restles s leg syndrome G25.81 ; Chronic obstruc tive pulmonary disea se, unspecified [employer] D type J44.9 ; Status post total left knee replacement Z96 .652 ; Swelling of lef t knee joint M25.462 ; Primary osteoarthritis of both knees M17.0 ; M orbid (severe) obesit y due to excess calories E66.01 ; Current moder ate episode of rahcel r depressive diso rder without prior e pisode F32.1 ; General ized anxiety disorde r F41.1 ; Obstructive s leep apnea (adult) (pediatric) G47 .33 ; Dependence on o ther enabling jody es and devices Z99.89 and Urinary inconti nence, unspecified typ e R32 IMMUNIZATIONS Vaccine Route Administration Date Status Afluria single dose Unknown Jun 16, 2020 Administered Shingrix Unknown Jun 17, 2020 Administered Fluzone IM Intramuscular Aug 01, 2019 Administered [...] REASON FOR REFERRAL No Information VITAL SIGNS Height 62 in Sep, Weight 257.7 lbs Sep, Temperature 96.6 degrees Fahrenheit Sep, BMI 47.13 kg/m2 Sep, Oximetry 96 % Sep, Respiratory Rate 18 /min Sep, Blood pressure systolic 118 mm Hg Sep, Blood pressure diastolic 57 mm Hg Sep, MEDICATIONS Medication SIG (Take, Route, Notes Start Date End Date Status Frequency, Duration) CPAP Machine max pressure 9 nightly Active cm of water Losartan Potassium 100 MG TAKE 1 TABLET BY MOUTH Active EVERY DAY for 90 Quetiapine Fumarate 200 MG 1 tablet Orally Once a Active day for 90 days Metformin HCl 500 MG TAKE 1 TABLET BY MOUTH Active TWICE A DAY WITH A MEAL for 90 Metformin HCl 500 MG 1 tablet with a meal Active Orally Twice a day for 90 days Pantoprazole Sodium 40 MG 1 tablet Orally Once a Active day for 90 days Levothyroxine Sodium 100 1 tablet on an empty Active MCG stomach in the morning Orally Once a day for 90 Breo Ellipta 100-25 MCG/INH 1 puff Inhalation Once a Active day for 30 days Losartan Potassium 100 MG 1 tablet Orally Once a Active day for 90 days Pantoprazole Sodium 40 MG TAKE 1 TABLET BY MOUTH Active EVERY DAY for 90 Diclofenac Sodium 1 % as directed Transdermal Active Twice a day Verapamil HCl ER 120 MG 1 tablet Orally Once a Active day for 90 days Spironolactone 25 MG 1 tablet Orally Once a Active day for 90 days Verapamil HCl ER 120 MG TAKE 1 TABLET BY MOUTH Active EVERY DAY for 90 Hydrocodone-Acetaminophen 1 tablet as needed Active 7.5-325 MG Orally PRN Atorvastatin Calcium 40 MG 1 tablet Orally Once a Active day for 90 days OneTouch Verio - TEST BLOOD SUGAR ONCE A Unknown DAY for 90 Accu-Chek FastClix Lancets as directed in vitro Active - twice daily for 90 days Atorvastatin Calcium 20 MG TAKE 1 TABLET BY MOUTH Active EVERY DAY for 90 ReliOn Prime Test - as directed In Vitro Active twice a day for 90 days Ropinirole HCl 2 MG 1 tablet 1 to 3 hours Active before bedtime Orally Once a day for 90 days Levothyroxine Sodium 100 1 tablet on an empty Active MCG stomach in the morning Orally Once a day for 90 days Breo Ellipta 100-25 MCG/INH 1 puff Inhalation Twice Active a day Venlafaxine HCl 75 MG 1 tablet with food Active Orally Once a day for 90 days Venlafaxine HCl ER 150 MG 1 capsule with food Active Orally Once a day for 90 days PROCEDURES No Information RESULTS No Results REASON FOR VISIT 3 [facility] lab f/u. In office. MEDICAL (GENERAL) HISTORY Type Description Date Medical [...] Notes Treatment Notes Treatm ent Clinical Notes Sep, Mixed hyperlipidemia INCREASED Lipitor 40 (ICD-10 - E78.2) mg. Side effect discussed. Education given. , Hyperlipidemia Education: Hyperlipidemia refers to increased levels of lipids(fats) in the blood, including cholesterol and triglycerides. This can significantly increase your risk of developing coronary artery disease and peripheral artery disease. This can cause chest pain, heart attack, stroke, and fatigue. Treatment is recommended to decrease your risk. Treatment includes: lifestyle modification, low salt/low fat diet, exercise, tobacco cessation, low alcohol intake and sometimes medication. Blood tests (TC,TG, HDL, LDL) are utilized to determine treatment regimens. TC(Total cholesterol) should be below 200. TG(Total Triglycerides) should be below 150. HDL(Good cholesterol) should be above 40. LDL(Bad Cholesterol) should be below 130(if you have one risk factor) or less than 100( if you have more than one risk factor or have DM/CAD/PVD). Compliance with medication and treatment is vital. If you have questions, talk to your doctor. Sep, Controlled type 2 Controlled. diabetes mellitus Education given. , without Diabetes Education complication, Diabetes is a without long-term disorder that current use of disrupts the way insulin (ICD-10 - your body uses E11.9) glucose (sugar). It is a chronic medication condition that requires regular monitoring and treatment throughout your life. Treatment includes: lifestyle modification, self-care measures, and medication. Fortunately, these treatments can keep the blood sugar levels close to normal and minimize the risk of developing complications. The primary blood test to measure the progress of diabetes is the Hemoglobin A1c. Normal levels is less than 7.0 but less than 6.5 is considered excellent control. Fasting blood sugars should be in the range of 80-120 while random blood sugars should range below 200 especially after meals. Carbohydrate (sugar) intake for diabetics should be below 45 grams per meal and 15 grams per snack. Diabetic preventive care is vital to prevent complications, so it is important to have yearly diabetic eye and foot exams with specialists. If your diabetes is not controlled, then contact your doctor to further address.Medication may need to be adjusted and/or added. Sep, Essential (primary) Intermittent hypertension (ICD-10 controlled. - I10) Instructed to measure BP at home and bring in log. Education given. , HTN Education This is a condition that puts at risk for heart attack, stroke, and kidney disease. Lifestyle modification, low fat/low salt diet, exercise, low alcohol intake and medication is utilized to help control your BP. Untreated HTN increases the strain on the heart and arteries, eventually causing organ damage.Normal BP is less than 140/90. High BP is greater than 140/90. If your BP is not controlled, call your doctor. Medication may need to be adjusted and/or added. Compliance with medication is vital. If you have chest pain, shortness of breath, severe nausea/vomiting, fatigue, and other symptoms, you will need to contact your doctor or go to the ER immediately to address. Sep, Acquired Education given. hypothyroidism Stable. (ICD-10 - E03.9) Sep, Insomnia, Referral to unspecified type psychiatrist given. (ICD-10 - G47.00) Education given. Discussed good sleep hygiene.. Sep, GERD without GI protection with esophagitis (ICD-10 NSAIDs intake. - K21.9) Education given. Sep, Restless leg Stable. syndrome (ICD-10 - G25.81) Sep, Chronic obstructive Will trial breo. pulmonary disease, managed by unspecified COPD Aggrawal. type (ICD-10 - J44.9) Sep, Status post total Managed by left knee orthopedic and replacement (ICD-10 recently evaluated - Z96.652) on 12/30/2019. Education given. Encouraged on being compliant. Continue outpatient rehab. Pain managed by pain management. Sep, Swelling of left Discussed knee joint (ICD-10 - differential M25.462) diagnosis. Likely etiology recent surgery. Education given Sep, Primary Managed by PNM. osteoarthritis of Started on Tylenol + both knees (ICD-10 - Codiene. s/p Rirght M17.0) TKA. Planning for Left TKA. Needs cardiac clearance. Sep, Morbid (severe) Counseling given. obesity due to Education given. excess calories (ICD-10 - E66.01) Sep, Current moderate Managed by Psych: episode of major Referral given to depressive disorder new psychiatrist. without prior Education given. , episode (ICD-10 - -- Depression F32.1) Education: Depression is a brain disease that makes you sad, but it is different than normal sadness. Depressed people feel down most of the time for at least 2 weeks. They also have at least one of these 2 symptoms: 1. They no longer enjoy or care about doing the things they used to like to do. 2. They feel sad, down, hopeless, or cranky most of the day, almost every day. It can also make you: lose or gain weight; sleep too much or too little; fell tired or like you have no energy; feel guilty or like you are worth nothing; forget things or feel confused; and think about or suicide. Medication and/or seeing a counselor (such as a psychiatrist, psychologist, nurse or social group worker) may be necessary to treat depression. Both treatments take time to work. If you ever feel like you might hurt yourself or some else, then call your doctor or call 911 or go to the ER. Sep, Generalized anxiety Referral given to disorder (ICD-10 - psychiatrist.-- F41.1) Anxiety Education: Anxiety is a feeling of anxiousness or nervousness. Being extremely anxious or worried on most days for 6 months or longer is not normal. This is a type of anxiety disorder. This disorder can make it hard to do everyday tasks. Other types of anxiety include: post traumatic stress disorder, panic disorder, and phobias. Symptoms of anxiety may include: feeling worried or on the edge, trouble sleeping, or forgetting things. Feelings of stomach aches or chest tightness is another common symptom. Medicine, exercise, and other treatments like counseling, talk therapy, yoga, and massages maybe necessary to treat this disorder. Sep, Obstructive sleep Encouaged on apnea (adult) compliance with (pediatric) (ICD-10 CPAP. - G47.33) Sep, Dependence on other enabling machines and devices (ICD-10 - Z99.89) Sep, Urinary Managed by Urology. incontinence, Education given. unspecified type (ICD-10 - R32) Sep, Other -- Medication reviewed and updated. -- Dietary and Lifestyle modifications addressed regarding diet, exercise and weight managemen t. -- Treatment options, risks and benefits, side effects reviewed in detail. -- Advised on signs/symptoms to monitor and when to call clinic and/or visit the nearest ER. Patient verbalized understanding and agreeable with plan. PLAN OF TREATMENT Medication Medication Name Sig Start Date Stop Date Venlafaxine HCl 75 MG 1 tablet with food Orally Once a day for 90 days Venlafaxine HCl ER 150 MG 1 capsule with food Orally Once a day for 90 days Ropinirole HCl 2 MG 1 tablet 1 to 3 hours before bedtime Orally Once a day for 90 days Levothyroxine Sodium 100 MCG 1 tablet on an empty stomach in the morning Orally Once a day for 90 days CPAP Machine max pressure 9 cm of nightly water Quetiapine Fumarate 200 MG 1 tablet Orally Once a day for 90 days ReliOn Prime Test - as directed In Vitro twice a day for 90 days Accu-Chek FastClix Lancets - as directed in vitro twice daily for 90 days Verapamil HCl ER 120 MG 1 tablet Orally Once a day for 90 days Losartan Potassium 100 MG 1 tablet Orally Once a day for 90 days Pantoprazole Sodium 40 MG 1 tablet Orally Once a day for 90 days Breo Ellipta 100-25 MCG/INH 1 puff Inhalation Once a day for 30 days Metformin HCl 500 MG 1 tablet with a meal Orally Twice a day for 90 days Spironolactone 25 MG 1 tablet Orally Once a day for 90 days Atorvastatin Calcium 40 MG 1 tablet Orally Once a day for 90 days Treatment Notes Assessment Notes Clinical Notes Generalized anxiety disorder Referral given to psychiatrist. -- Anxiety Education: Anxiety is a feeling of anxiousness or nervousness. Being extremely anxious or worried on most days for 6 months or longer is not normal. This is a type of anxiety disorder. This disorder can make it hard to do everyday tasks. Other types of anxiety include: post traumatic stress disorder, panic disorder, and phobias. Symptoms of anxiety may include: feeling worried or on the edge, trouble sleeping, or forgetting things. Feelings of stomach aches or chest tightness is another common symptom. Medicine, exercise, and other treatments like counseling, talk therapy, yoga, and massages maybe necessary to treat this disorder. Mixed hyperlipidemia INCREASED Lipitor 40 mg. Side effect discussed. Education given. , Hyperlipidemia Education: Hyperlipidemia refers to increased levels of lipids(fats) in the blood, including cholesterol and triglycerides. This can significantly increase your risk of developing coronary artery disease and peripheral artery disease. This can cause chest pain, heart attack, stroke, and fatigue. Treatment is recommended to decrease your risk. Treatment includes: lifestyle modification, low salt/low fat diet, exercise, tobacco cessation, low alcohol intake and sometimes medication. Blood tests (TC,TG, HDL, LDL) are utilized to determine treatment regimens. TC(Total cholesterol) should be below 200. TG(Total Triglycerides) should be below 150. HDL(Good cholesterol) should be above 40. LDL(Bad Cholesterol) should be below 130(if you have one risk factor) or less than 100( if you have more than one risk factor or have DM/CAD/PVD). Compliance with medication and treatment is vital. If you have questions, talk to your doctor. Current moderate episode of major Managed by Psych: Referral given to depressive disorder without prior new psychiatrist. Educatio n given. episode , -- Depression Education: Depression is a brain disease that makes you sad, but it is different than normal sadness. Depressed people feel down most of the time for at least 2 weeks. They also have at least one of these 2 symptoms: 1. They no longer enjoy or care about doing the things they used to like to do. 2. They feel sad, down, hopeless, or cranky most of the day, almost every day. It can also make you: lose or gain weight; sleep too much or too little; fell tired or like you have no energy; feel guilty or like you are worth nothing; forget things or feel confused; and think about or suicide. Medication and/or seeing a counselor (such as a psychiatrist, psychologist, nurse or social group worker) may be necessary to treat depression. Both treatments take time to work. If you ever feel like you might hurt yourself or some else, then call your doctor or call 911 or go to the ER. Controlled type 2 diabetes mellitus Controlled. Education gi adam. , without complication, without Diabetes Education Diabetes is a long-term current use of insulin disorder that disrupts the way your body uses glucose (sugar). It is a chronic medication condition that requires regular monitoring and treatment throughout your life. Treatment includes: lifestyle modification, self-care measures, and medication. Fortunately, these treatments can keep the blood sugar levels close to normal and minimize the risk of developing complications. The primary blood test to measure the progress of diabetes is the Hemoglobin A1c. Normal levels is less than 7.0 but less than 6.5 is considered excellent control. Fasting blood sugars should be in the range of 80-120 while random blood sugars should range below 200 especially after meals. Carbohydrate (sugar) intake for diabetics should be below 45 grams per meal and 15 grams per snack. Diabetic preventive care is vital to prevent complications, so it is important to have yearly diabetic eye and foot exams with specialists. If your diabetes is not controlled, then contact your doctor to further address.Medication may need to be adjusted and/or added. Urinary incontinence, unspecified Managed by Urology. Educat ion type given. Essential (primary) hypertension Intermittent controlled. In structed to measure BP at home and bring in log. Education given. , HTN Education This is a condition that puts at risk for heart attack, stroke, and kidney disease. Lifestyle modification, low fat/low salt diet, exercise, low alcohol intake and medication is utilized to help control your BP. Untreated HTN increases the strain on the heart and arteries, eventually causing organ damage.Normal BP is less than 140/90. High BP is greater than 140/90. If your BP is not controlled, call your doctor. Medication may need to be adjusted and/or added. Compliance with medication is vital. If you have chest pain, shortness of breath, severe nausea/vomiting, fatigue, and other symptoms, you will need to contact your doctor or go to the ER immediately to address. Obstructive sleep apnea (adult) Encouaged on compliance with CPAP. (pediatric) Acquired hypothyroidism Education given. Stable. Insomnia, unspecified type Referral to psychiatrist given. Education given. Discussed good sleep hygiene.. GERD without esophagitis GI protection with NSAIDs intake. Education given. Restless leg syndrome Stable. Morbid (severe) obesity due to Counseling given. Education g iven. excess calories Primary osteoarthritis of both Managed by PNM. Started on Ty lenol knees + Codiene. s/p Rirght TKA. Planning for Left TKA. Needs cardiac clearance. Chronic obstructive pulmonary Will trial breo. managed by Dr Guzman disease, unspecified COPD type Aggrawal. Status post total left knee Managed by orthopedic and recent ly replacement evaluated on 12/30/2019. Education given. Encouraged on being compliant. Continue outpatient rehab. Pain managed by pain management. Swelling of left knee joint Discussed differential diagnosis . Likely etiology recent surgery. Education given Treatment Notes Test Name Order Date Lipid Panel With LDL/HDL Ratio 2020-09-22 Thyroid Panel With TSH 2020-09-22 Microalbumin/Creat Ratio, Random Ur 2020-09-22 Hemoglobin A1c 2020-09-22 Comp. Metabolic Panel (14) (CMP) 2020-09-22 CBC With Differential/Platelet 2020-09-22 Next Appt Details 3 Months + Labs 1 week Reason: Provider Name:Rejishabbir Farris, 2020-12-14 0 8:15:00 AM, [address], [address], [place], [address], Provider Name:Reji Farris, 2020-12-21 0 2:10:00 PM, [address] [place], [facility] [address], [place], [address], Insurance Providers Payer Name Payer Address Payer Insured Patient Coverage Cover age End Phone Name Relationship to Start Date David e Insured [employer] [address] [place] self [place] [facility] [place] [phone]
--- OUTSIDE RECORDS SUMMARY | 2020-11-08 16:08 | XMS REPORT | Summary of Care ---
:[address] [facility] Address [address] [place] [address] Care Team Providers Name Role Phone Rey Farris Primary Care Provider Reason for Visit Reason Comments Refill Request Encounter Details Date Type Department Care Team Description 09/14/2020 Refill [facility] Orthopaedic Steven Bansal, PAC Refill Request Surgery- [place] [address], [place] [address] [place] [address] [phone] Allergies Active Allergy Reactions Severity Noted Date Comments Bupropion Hcl Itching 04/06/2016 Diclofenac Sodium Swelling 01/07/2020 redness Gabapentin Other - See comments 04/20/2020 Weight gain and sleep walk Latex, Natural Rubber Itching Medium 01/08/2019 Ketorolac Tromethamine Anaphylaxis 08/04/2015 Bupropion Unknown - See comments 08/04/2015 Zolpidem Unknown - See comments 04/06/2016 Sleep walk documented as of this encounter (statuses as of 09/21/2020) Medications Medication Sig Dispensed Refills Start Date [...] cinnamon Take by mouth. 0 Acti ve pohp-zhioxwhu-UYQ 500-100-150 mg-mcg-mg Cap calcium Take by mouth. [...] Status post total DAY knee replacement, left DICLOFENAC SODIUM 1 APPLY TO 100 g 0 09/21/2020 Active % gelIndications: AFFECTED AREA Status post total TWICE A DAY knee replacement, NEEDED FOR PAIN left APPLY 2 GRAMS DO NOT EXCEED 4 GRAMS IN A DAY DICLOFENAC SODIUM 1 APPLY TO 100 g 0 03/17/2020 Discontinued % gelIndications: AFFECTED AREA 0 Status post total TWICE A DAY knee replacement, NEEDED FOR PAIN left APPLY 2 GRAMS DO NOT EXCEED 4 GRAMS IN A DAY documented as of this encounter (statuses as of 09/21/2020) Active Problems Problem Noted Date Primary osteoarthritis of left knee 12/05/2019 Overview: Added automatically from request for michela sky [id number] Total knee replacement status 01/07/2019 Primary osteoarthritis of right knee 01/02/2019 Overview: Added automatically from request for michela sky [id number] Hypoxia 04/11/2018 Morbid obesity with body mass index of 40.0-49.9 04/11 Knee pain, left 01/18/2016 Right knee pain 08/04/2015 documented as of this encounter (statuses as of 09/21/2020) Immunizations Name Administration Dates Next Due Pneumococcal [...] with No / Unsure 09/15/2020 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 documented as of this encounter Last Filed Vital Signs Not on filedocumented in this encounter Plan of Treatment Date Type Specialty Care Team Description 09/22/2020 Office Visit Surgery Oncology Rossana Pozo MD [address] [place] [address] [phone] Health Maintenance Due Date Last Done Comments [...] of this encounter Implants Implanted Type Area Dive Master Device Shelf Model / Identifier Expiration Serial / Date Lot Bone Cement Palacos R Radiopaque Ayaan #[id number] - [id number] CEMENT Right: Ayaan 08/23/2019 [id number] / Implanted: Qty: 1 on 01/07/2019 by Sedrick Kendall MD at [facility] Knee 8 [id number] / [id number] Cement Simplex Hv #6194-1-001 - Sn/A CEMENT Left: [place] 01/20/2021 6194-1-001 / Implanted: Qty: 1 on 12/09/2019 by Sedrick Kendall MD at [facility] Knee N /A / [id number] Bearing Tibial 10 X 63/67 Mm #849057 - [id number] KNEE Right: Bio met 08/24/2023 [id number] / Implanted: Qty: 1 on 01/07/2019 by Sedrick Kendall MD at [facility] Knee 9 97936 / [id number] Patella 8 X 31mm Biomet#950356 - [id number] KNEE Right: Biomet 08/29/2023 [id number] / Implanted: Qty: 1 on 01/07/2019 by Sedrick Kendall MD at [facility] Knee 1 [id number] / [id number] Cr Femoral Right KNEE Right: Biomet 01/21/2028 18 3042 / Implanted: Qty: 1 on 01/07/2019 by Sedrick Kendall MD at [facility] Knee 1 31212 / [id number] Component Patella 32mm Vera 8mm Biomet #511007 - [id number] Other Le ft: Biomet 11/11/2024 [id number] / Implanted: Qty: 1 on 12/09/2019 by Sedrick Kendall MD at [facility] Implant Knee 1 28027 / [id number] Adc Plate Tibial Cruciate 67 Mm - [id number] PLATE Right: Biomet 05/03/2028 [id number] / Implanted: Qty: 1 on 01/07/2019 by Sedrick Kendall MD at [facility] Knee J [id number] / [id number] Screw Acetabular 6.5mm Vera 30mml Cancellous Ayaan #769103 - [id number] Left: Biomet 09/02/2029 [id number] / Implanted: Qty: 4 on 12/09/2019 by Sedrick Kendall MD at [facility] Knee 1 65060 / [id number] Component Tibial Tray Cementless 67mml Biomet #253580 - [id number] Left: Biomet 03/20/2024 [id number] / Implanted: Qty: 1 on 12/09/2019 by Sedrick Kendall MD at [facility] Knee 1 53267 / [id number] Bearing Tibial 10 X 63/67 Mm #517871 - [id number] Left: Bio met 07/01/2024 [id number] / Implanted: Qty: 1 on 12/09/2019 by Sedrick Kendall MD at [facility] Knee 1 47230 / [id number] Adc Femur 57.5 Mm Left - [id number] Left: Biomet 02/11/2029 [id number] / Implanted: Qty: 1 on 12/09/2019 by Sedrick Kendall MD at [facility] Knee 1 00628 / [id number] Stem Finned Primary 40mm Biomet #462572 - [id number] Left: Biomet 11/19/2029 [id number] / Implanted: Qty: 1 on 12/09/2019 by Sedrick Kendall MD at [facility] Knee 1 52890 / [id number] documented as of this encounter Results Not on filedocumented in this encounter Visit Diagnoses Diagnosis Status post total knee replacement, left documented in this encounter Insurance Payer Benefit Plan / Subscriber ID Effective Dates Phone Addre ss Type Group [facility] [id number] 2018-[place] Medicare Adv PLUS PLUS t HMO CLASSIC/VALUE documented as of this encounter
--- OUTSIDE RECORDS SUMMARY | 2020-11-08 16:08 | XMS REPORT | Summary of Care ---
:1960 Author Organization [facility] Address [address] [place] [address] Care Team Providers Name Role Phone Rey Farris Primary Care Provider Reason for Referral (Routine) Status Reason Specialty Diagnoses / Referred By Referred To Procedures Contact Contact Open Location Physical Therapy Diagnoses Acute pain of right shoulder Status post total knee replacement, left Reuben Bansal Preference Procedures CONSULT/REFERRAL PHYSICAL THERAPY S, PAC [address] [place] [address] Reason for Visit Reason Comments Follow-up Knee Pain Left knee pain/ tingling (Routine) Status Reason Specialty Diagnoses / Referred By Referred To Procedures Contact Contact Authorized Orthopedic Diagnoses Bilateral primary osteoarthritis of knee Reji Farris, Surgery Procedures CONSULT/REFERRAL ORTHOPAEDIC SURGERY [address] [facility] Sedrick Moon MD [facility] [address] Phone: [phone] Phone: Encounter Details Date Type Department Care Team Description 10/22/2020 Office Visit [facility] Orthopaedic Sedrick Calabrese MD [address] [place] [address] Acute pain of right shoulder (Primary Dx ); Surgery- Reuben Lyons S, PAC [address] [place] [address] [phone] Status post total knee replacement, left [address] [place] [address] Allergies Active Allergy Reactions Severity Noted Date Comments Bupropion Hcl Itching 04/06/2016 Diclofenac Sodium Swelling 01/07/2020 redness Gabapentin Other - See comments 04/20/2020 Weight gain and sleep walk Latex, Natural Rubber Itching Medium 01/08/2019 Ketorolac Tromethamine Anaphylaxis 08/04/2015 Bupropion Unknown - See comments 08/04/2015 Zolpidem Unknown - See comments 04/06/2016 Sleep walk documented as of this encounter (statuses as of 10/22/2020) Medications Medication Sig Dispensed Refills Start Date [...] Active tablet mouth at bedtime. methocarbamol 750 Take 750 mg by 0 10/29/2019 Active mg tablet mouth daily. SERTraline 50 mg Take 50 mg by 0 11/07/2019 Active tablet mouth at bedtime. spironolactone 25 Take 25 mg by 0 11/13/2019 Active mg tablet mouth daily. atorvastatin 20 mg Take 20 mg by 0 10/18/2019 Active tablet mouth daily. HYDROcodone-acetami Take 1 tablet 0 11/27/2019 Active nophen 7.5-325 mg by mouth 3 per tablet (three) times daily as needed. levothyroxine 100 Take 100 mcg 0 10/14/2019 Active mcg tablet by mouth every morning. losartan 100 mg Take 100 mg by 0 10/04/2019 Active tablet mouth daily. QUEtiapine 100 mg Take 100 mg by 0 11/25/2019 Active tablet mouth at bedtime. venlafaxine XR 75 Take 75 mg by 0 10/29/2019 Active mg 24 hr capsule mouth every evening. acetaminophen-codei Take 2 tablets 40 tablet 0 12/11/2019 Active ne (TYLENOL-CODEINE by mouth every #3) 300-30 mg 4 (four) hours tabletIndications: as needed for Status post total Pain (scale left knee 4-6) or Pain replacement (scale 7-10) (Maximum 10 tablets a day). albuterol 2.5 mg /3 1 NEBULE PER 0 03/04/2020 Active mL (0.083 %) NEBULIZER nebulizer solution EVERY 8 HOURS NEEDED melatonin 3 mg Take 3 mg by 0 Ac tive tablet mouth 3 (three) times daily. cinnamon Take by 0 Active rcnz-eotizbem-TWM mouth. 500-100-150 mg-mcg-mg Cap calcium Take by 0 Active carbonate/vitamin mouth. D3 (CALCIUM 500 + D ORAL) Cholecalciferol, Take by 0 Act nadine Vitamin D3, mouth. (D3-2000) 50 mcg (2,000 unit) capsule MILK THISTLE ORAL Take 350 mg by 0 Active mouth. evening primrose Take 100 mg by 0 Active oil (EVENING mouth. PRIMROSE ORAL) DICLOFENAC SODIUM 1 APPLY TO 100 g 0 09/21/2020 10/22/20 Discontinued % gelIndications: AFFECTED AREA 20 (Alternate Status post total TWICE A DAY therapy) knee replacement, NEEDED FOR left PAIN APPLY 2 GRAMS DO NOT EXCEED 4 GRAMS IN A DAY MELOXICAM 7.5 mg TAKE 1 TABLET 30 tablet 1 10/20/2020 10/22/20 Discontinued tabletIndications: BY MOUTH EVERY 20 (Alternate Status post total DAY th erapy) knee replacement, left documented as of this encounter (statuses as of 10/22/2020) Active Problems Problem Noted Date Primary osteoarthritis of left knee 12/05/2019 Overview: Added automatically from request for michela jose daniel [id number] Total knee replacement status 01/07/2019 Primary osteoarthritis of right knee 01/02/2019 Overview: Added automatically from request for michela sky [id number] Hypoxia 04/11/2018 Morbid obesity with body mass index of 40.0-49.9 04/11 Knee pain, left 01/18/2016 Right knee pain 08/04/2015 documented as of this encounter (statuses as of 10/22/2020) Immunizations Name Administration Dates Next Due Pneumococcal [...] been in contact with No / Unsure 10/22/2020 10:56 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 documented as of this encounter Last Filed Vital Signs Vital Sign Reading Time Taken Comments Blood Pressure 132/80 10/22/2020 11:08 AM COPY OPERATOR Pulse 73 10/22/2020 11:07 AM COPY OPERATOR Temperature - - Respiratory Rate - - Oxygen Saturation - - Inhaled Oxygen Concentration - - Weight - - Height - - Body Mass Index - - documented in this encounter Progress Notes Reuben Bansal S, PAC - 10/22/2020 4:00 PM CST Cc: Chief Complaint Patient presents with Follow-up Knee Pain Left knee pain/ tingling Follow up Left knee pain/ tinging x2 months No films Eliza Collazo is a 59 year old female. Plating of left knee pain she is status post total knee replacement 12/09/2019. On her left knee herhusband wanted her to have an end of year checkup. Yesterday right shoulder pain was the reason she scheduled the appointment, He has pain on her posterior shoulder where she had a deep muscle massage when she [place] to the massage therapist [place] the mall. Allergies Eliza is allergic to latex, natural rubber; bupropion hcl; diclofenac sodium; gabapentin; toradol [ketorolac tromethamine]; wellbutrin [bupropion]; and zolpidem. Medications Outpatient Medications Prior to Visit Medication Sig Dispense Refill MELOXICAM 7.5 mg tablet TAKE 1 TABLET BY MOUTH EVERY DAY 30 tablet 1 DICLOFENAC SODIUM 1 % gel APPLY TO AFFECTED AREA TWICE A DAY NEEDED FOR PAIN APPLY 2 GRAMS DONOT EXCEED 4 GRAMS IN A DAY 100 g 0 albuterol 2.5 mg /3 mL (0.083 %) nebulizer solution 1 NEBULE PER NEBULIZER EVERY 8 HOURS NEEDED calcium carbonate/vitamin D3 (CALCIUM 500 + D ORAL) Take by mouth. Cholecalciferol, Vitamin D3, (D3-2000) 50 mcg (2,000 unit) capsule Take by mouth. cinnamon kpfe-kpnqigrj-RTV 500-100-150 mg-mcg-mg Cap Take by mouth. evening primrose oil (EVENING PRIMROSE ORAL) Take 100 mg by mouth. melatonin 3 mg tablet Take 3 mg by mouth 3 (three) times daily. MILK THISTLE ORAL Take 350 mg by mouth. acetaminophen-codeine (TYLENOL-CODEINE #3) 300-30 mg tablet Take [...] every evening. amitriptyline 75 mg tablet Take 100 mg by mouth at bedtime. pantoprazole 40 [...] Right 01/07/2019 Surgeon: Sedrick Calabrese MD; Location: [facility] TOTAL KNEE ARTHROPLASTY Left 12/09/2019 Surgeon: Sedrick Calabrese MD; Location: [facility] Social History Socioeconomic History Marital status: Spouse name: Not on file Number of children: Not on file Years of education: Not on file Highest education level: Not on file Occupational History Occupation: Retired Social Needs Financial resource strain: Not on file Food insecurity Worry: Not on file Inability: Not on file Transportation needs Medical: Not on file Non-medical: Not on file Tobacco Use Smoking status: Never Smoker Smokeless tobacco: Never Used Substance and Sexual Activity Alcohol use: No Alcohol/week: 0.0 standard drinks Drug use: No Sexual activity: Never Lifestyle Physical activity Days per week: Not on file Minutes per session: Not on file Stress: Not on file Relationships Social connections Talks on phone: Not on file Gets together: Not on file Attends lutheran service: Not on file Active member of club or organization: Not on file Attends meetings of clubs or organizations: Not on file Relationship status: Not on file Intimate partner violence Fear of current or ex partner: Not [...] Psychiatric/Behavioral: Negative. Endocrine: Endocrine negative Vital Signs There were no vitals taken for this visit. Physical Exam Musculoskeletal: Comments: Physical Exam Constitutional: oriented to person, place, [...] Nursing note and vitals reviewed. Left knee her incision is nicely healed she has a full extension she is only able to flex to 95 her knee is not hot to the touch there is no . She has point tenderness on her posterior lateral scapula to palpation she has full strength internal rotation external rotation supraspinatus 5 over 5 negative Burns impingement test positive Neer impingement test Assessment/Plan 1. Acute pain of right shoulder 2. Status post total knee replacement, left We will give her a prescription for physical therapy for her right shoulder as well as her left kneeshe still needs to work on knee range of motion. OPERATOR documented in this encounter Plan of Treatment [...] of this encounter Implants Implanted Type Area Automatic Presser Device Shelf Model / Identifier Expiration Serial / Date Lot Bone Cement Palacos R Radiopaque Ayaan #[id number] - [id number] CEMENT Right: Ayaan 08/23/2019 [id number] / Implanted: Qty: 1 on 01/07/2019 by Sedrick Kendall MD at [facility] Knee 8 [id number] / [id number] Cement Simplex Hv #6194-1-001 - Sn/A CEMENT Left: [place] 01/20/2021 6194-1-001 / Implanted: Qty: 1 on 12/09/2019 by Sedrick Kendall MD at [facility] Knee N /A / [id number] Bearing Tibial 10 X 63/67 Mm #761819 - [id number] KNEE Right: Bio met 08/24/2023 430968 / Implanted: Qty: 1 on 01/07/2019 by Sedrick Kendall MD at [facility] Knee 9 78343 / [id number] Patella 8 X 31mm Biomet#240897 - [id number] KNEE Right: Biomet 08/29/2023 250958 / Implanted: Qty: 1 on 01/07/2019 by Sedrick Kendall MD at [facility] Knee 1 39782 / [id number] Cr Femoral Right KNEE Right: Biomet 01/21/2028 18 3042 / Implanted: Qty: 1 on 01/07/2019 by Sedrick Kendall MD at [facility] Knee 1 04881 / [id number] Component Patella 32mm Vera 8mm Biomet #767588 - [id number] Other Le ft: Biomet 11/11/2024 186524 / Implanted: Qty: 1 on 12/09/2019 by Sedrick Kendall MD at [facility] Implant Knee 1 98155 / [id number] Adc Plate Tibial Cruciate 67 Mm - [id number] PLATE Right: Biomet 05/03/2028 481755 / Implanted: Qty: 1 on 01/07/2019 by Sedrick Kendall MD at [facility] Knee J [id number] / [id number] Screw Acetabular 6.5mm Vera 30mml Cancellous Ayaan #905385 - [id number] Left: Biomet 09/02/2029 952117 / Implanted: Qty: 4 on 12/09/2019 by Sedrick Kendall MD at [facility] Knee 1 85381 / [id number] Component Tibial Tray Cementless 67mml Biomet #586314 - [id number] Left: Biomet 03/20/2024 526976 / Implanted: Qty: 1 on 12/09/2019 by Sedrick Kendall MD at [facility] Knee 1 93901 / [id number] Bearing Tibial 10 X 63/67 Mm #443494 - [id number] Left: Bio met 07/01/2024 637853 / Implanted: Qty: 1 on 12/09/2019 by Sedrick Kendall MD at [facility] Knee 1 54323 / [id number] Adc Femur 57.5 Mm Left - [id number] Left: Biomet 02/11/2029 775176 / Implanted: Qty: 1 on 12/09/2019 by Sedrick Kendall MD at [facility] Knee 1 67059 / [id number] Stem Finned Primary 40mm Biomet #455177 - [id number] Left: Biomet 11/19/2029 511021 / Implanted: Qty: 1 on 12/09/2019 by Sedrick Kendall MD at [facility] Knee 1 01835 / [id number] documented as of this encounter Results Not on filedocumented in this encounter Visit Diagnoses Diagnosis Acute pain of right shoulder - Primary Status post total knee replacement, left documented in this encounter Insurance Payer Benefit Plan / Subscriber ID Effective Dates Phone Addre ss Type Group [employer] WE[employer] TEX[employer]HA [id number] 2018-[facility] Medicare Adv PLUS PLUS t HMO CLASSIC/VALUE ([place]) [place] [address] documented as of this encounter
--- OUTSIDE RECORDS SUMMARY | 2020-11-08 16:09 | XMS REPORT | Summary of Care ---
:1960 Author Organization [facility] Address [address] [place] [address] Care Team Providers Name Role Phone Rey Farris Primary Care Provider Reason for Referral (Routine) Status Reason Specialty Diagnoses / Referred By Referred To Procedures Contact Contact Open Location Physical Therapy Diagnoses Acute pain of right shoulder Status post total knee replacement, left Reuben Bansal Preference Procedures CONSULT/REFERRAL PHYSICAL THERAPY S, PAC [address] [place] [address] Reason for Visit Reason Comments Follow-up Knee Pain Left knee pain/ tingling (Routine) Status Reason Specialty Diagnoses / Referred By Referred To Procedures Contact Contact Authorized Orthopedic Diagnoses Bilateral primary osteoarthritis of knee Reji Farris, Surgery Procedures CONSULT/REFERRAL ORTHOPAEDIC SURGERY [address] [facility] Sedrick Moon MD [facility] [address] Phone: [phone] Phone: Encounter Details Date Type Department Care Team Description 10/22/2020 Office Visit [facility] Orthopaedic Sedrick Calabrese MD [address] [place] [address] Acute pain of right shoulder (Primary Dx ); Surgery- Reuben Lyons S, PAC [address] [place] [address] [phone] Status post total knee replacement, left [address] [place] [address] Allergies Active Allergy Reactions Severity Noted [...] times daily. cinnamon Take by 0 Active vfxa-ahbltlrf-UDG mouth. 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 documented as of this encounter Last Filed Vital Signs Vital Sign Reading Time Taken Comments Blood Pressure 132/80 10/22/2020 11:08 AM AUTO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 Pulse 73 10/22/2020 11:07 AM AUTO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 Temperature - - Respiratory Rate - - [...] (2,000 unit) capsule Take by mouth. cinnamon tcib-ietiobwm-KDW 500-100-150 mg-mcg-mg Cap Take by mouth. evening [...] Right 01/07/2019 Surgeon: Sedrick Calabrese MD; Location: [facility] TOTAL KNEE ARTHROPLASTY Left 12/09/2019 Surgeon: Sedrick Calabrese MD; Location: [facility] Social History Socioeconomic History Marital status: Spouse [...] to work on knee range of motion. 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 documented in this encounter Plan of Treatment [...] of this encounter Implants Implanted Type Area Chemical Instrumentation Officer Device Shelf Model / Identifier Expiration Serial / Date Lot Bone Cement Palacos R Radiopaque Ayaan #[id number] - [id number] CEMENT Right: Ayaan 08/23/2019 [id number] / Implanted: Qty: 1 on 01/07/2019 by Sedrick Kendall MD at [facility] Knee 8 [id number] / [id number] Cement Simplex Hv #6194-1-001 - Sn/A CEMENT Left: [place] 01/20/2021 6194-1-001 / Implanted: Qty: 1 on 12/09/2019 by Sedrick Kendall MD at [facility] Knee N /A / [id number] Bearing Tibial 10 X 63/67 Mm #137702 - [id number] KNEE Right: Bio met 08/24/2023 338492 / Implanted: Qty: 1 on 01/07/2019 by Sedrick Kendall MD at [facility] Knee 9 25996 / [id number] Patella 8 X 31mm Biomet#389074 - [id number] KNEE Right: Biomet 08/29/2023 997996 / Implanted: Qty: 1 on 01/07/2019 by Sedrick Kendall MD at [facility] Knee 1 51824 / [id number] Cr Femoral Right KNEE Right: Biomet 01/21/2028 18 3042 / Implanted: Qty: 1 on 01/07/2019 by Sedrick Kendall MD at [facility] Knee 1 80415 / [id number] Component Patella 32mm Vera 8mm Biomet #998763 - [id number] Other Le ft: Biomet 11/11/2024 146002 / Implanted: Qty: 1 on 12/09/2019 by Sedrick Kendall MD at [facility] Implant Knee 1 64899 / [id number] Adc Plate Tibial Cruciate 67 Mm - [id number] PLATE Right: Biomet 05/03/2028 744269 / Implanted: Qty: 1 on 01/07/2019 by Sedrick Kendall MD at [facility] Knee J [id number] / [id number] Screw Acetabular 6.5mm Vera 30mml Cancellous Ayaan #980879 - [id number] Left: Biomet 09/02/2029 523735 / Implanted: Qty: 4 on 12/09/2019 by Sedrick Kendall MD at [facility] Knee 1 85486 / [id number] Component Tibial Tray Cementless 67mml Biomet #013070 - [id number] Left: Biomet 03/20/2024 295517 / Implanted: Qty: 1 on 12/09/2019 by Sedrick Kendall MD at [facility] Knee 1 30406 / [id number] Bearing Tibial 10 X 63/67 Mm #059084 - [id number] Left: Bio met 07/01/2024 143948 / Implanted: Qty: 1 on 12/09/2019 by Sedrick Kendall MD at [facility] Knee 1 21511 / [id number] Adc Femur 57.5 Mm Left - [id number] Left: Biomet 02/11/2029 947005 / Implanted: Qty: 1 on 12/09/2019 by Sedrick Kendall MD at [facility] Knee 1 42427 / [id number] Stem Finned Primary 40mm Biomet #311041 - [id number] Left: Biomet 11/19/2029 611678 / Implanted: Qty: 1 on 12/09/2019 by Sedrick Kendall MD at [facility] Knee 1 98544 / [id number] documented as of this encounter Results Not on filedocumented in this encounter Visit Diagnoses Diagnosis Acute pain of right shoulder - Primary Status post total knee replacement, left documented in this encounter Insurance Payer Benefit Plan / Subscriber ID Effective Dates Phone Addre ss Type Group [employer] WE[employer] [id number] 2018-[facility] Medicare Adv PLUS PLUS t HMO CLASSIC/VALUE ([place]) [place] [address] documented as of this encounter
--- NOTE | 2020-11-08 16:37 | EDPHYS ---
Physician Documentation [facility] Name: Eliza Hill Age: 59 yrs Sex: Female : 1960 Arrival Date: 11/08/2020 Time: 16:03 Bed 6 Private MD: ED Physician Luis Jacob HPI: 11/08 16:36 This 59 yrs old Female presents to ER via Ambulatory with complaints of pm1 nervous breakdown. 16:36 The patient presents to the emergency department with nervous breakdown and suicidal pm1 ideation. Onset: The symptoms/episode began/occurred today. Associated signs and symptoms: The patient has no apparent associated signs or symptoms, Pertinent negatives: homicidal ideation. Severity of symptoms: in the emergency department the symptoms have resolved Pain is currently a 0 / 10. Patient had an argument with her sister and mother earlier today about family issues. At the end of the argument as she was leaving the house, she told her mother and family that she was done with their family drama and did not want to visit with her mother if her sister was around. She felt suicidal at that time but does not feel that way now. Her mother called the police and the mental health deputy brought her here. She does not want to be here, she is not suicidal or homicidal, and just wants to go home. Historical: - Allergies: 16:11 Tramadol HCl; ll1 16:11 Wellbutrin; ll1 - PMHx: 16:11 Arthritis; Chronic pain; COPD; Diabetes - NIDDM; Hypertension; Hypothyroidism; ll1 Osteoporosis; - PSHx: 16:11 Knee surgery; Hysterectomy; ll1 - Immunization history:: Adult Immunizations up to date, Flu vaccine is up to date. - Social history:: Smoking status: Patient denies any tobacco usage or history of. ROS: 16:36 Constitutional: Negative for fever, chills, and weight loss, Cardiovascular: Negative pm1 for chest pain, palpitations, and edema, Respiratory: Negative for shortness of breath, cough, wheezing, and pleuritic chest pain, Abdomen/GI: Negative for abdominal pain, nausea, vomiting, diarrhea, and constipation, Back: Negative for injury and pain, MS/Extremity: Negative for injury and deformity, Skin: Negative for injury, rash, and discoloration, Neuro: Negative for headache, weakness, numbness, tingling, and seizure. 16:36 Psych: Negative for drug dependence, alcohol dependence, homicidal ideation, suicidal ideation-resolved. Exam: 16:36 Constitutional: This is a well developed, well nourished patient who is awake, alert, pm1 and in no acute distress. Head/Face: Normocephalic, atraumatic. 16:36 Cardiovascular: Exam negative for acute changes, Rate: normal, Rhythm: regular, Pulses: no pulse deficits are appreciated, Edema: is not appreciated. 16:36 Respiratory: Exam negative for acute changes, respiratory distress, shortness of breath. 16:36 Abdomen/GI: Exam negative for acute changes, Inspection: abdomen appears normal, Palpation: abdomen is soft and non-tender, in all quadrants. 16:36 Neuro: Exam negative for acute changes, Orientation: is normal, Mentation: is normal, Motor: is normal, moves all fours. 16:36 Psych: Behavior/mood is pleasant, cooperative, Affect is calm, Oriented to person, place, time, Patient has no thoughts/intents to harm self or others. Judgement / Insight is normal. Vital Signs: 16:07 BP 143 / 75; Pulse 83; Resp 17; Temp 98.0; Pulse Ox 95% on R/A; Weight 111.13 kg; ll1 Height 5 ft. 2 in. (157.48 cm); Pain 6/10; 16:07 Body Mass Index 44.81 (111.13 kg, 157.48 cm) ll1 MDM: 16:19 Patient medically screened. pm1 16:36 Data reviewed: vital signs. pm1 16:36 Counseling: I had a detailed discussion with the patient and/or guardian regarding: the pm1 historical points, exam findings, and any diagnostic results supporting the discharge/admit diagnosis, the need for outpatient follow up, a psychiatrist, to return to the emergency department if symptoms worsen or persist or if there are any questions or concerns that arise at home. Administered Medications: No medications were administered Disposition: 11/08/20 16:37 Discharged to Home. Impression: Acute stress reaction. - Condition is Stable. - Discharge Instructions: Stress and Stress Management. - Medication Reconciliation Form, Thank You Letter, Antibiotic Education, Prescription Opioid Use form. - Follow up: Emergency Department; When: As needed; Reason: Worsening of condition. Follow up: Private Physician; When: 2 - 3 days; Reason: Recheck today's complaints, Continuance of care, Re-evaluation by your physician. - Problem is new. - Symptoms are resolved. Addendum: 11/09/2020 20:13 Co-signature as Attending Physician, Luis Jacob MD. m a2 Signatures: Darryl Melton RN RN em Red Amos, RETAIL WAREHOUSE SUPERVISOR RETAIL WAREHOUSE SUPERVISOR pm1 Luis Jacob MD MD ma2 Ninfa Rosario RN RN ll1 Corrections: (The following items were deleted from the chart) 11/08 16:54 16:37 Accucheck ordered. pm1 ph 17:12 16:37 11/08/2020 16:37 Discharged to Home. Impression: Acute stress reaction. Condition em is Stable. Forms are Medication Reconciliation Form, Thank You Letter, Antibiotic Education, Prescription Opioid Use. Follow up: Emergency Department; When: As needed; Reason: Worsening of condition. Follow up: Private Physician; When: 2 - 3 days; Reason: Recheck today's complaints, Continuance of care, Re-evaluation by your physician. Problem is new. Symptoms are resolved. pm1
--- NOTE | 2020-11-08 16:37 | ER ---
Nurse's Notes [facility] Name: Eliza Hill Age: 59 yrs Sex: Female : 1960 Arrival Date: 11/08/2020 Time: 16:03 Bed 6 Private MD: Diagnosis: Acute stress reaction Presentation: 11/08 16:07 Chief complaint: Patient states: "I'm having a nervous breakdown." States she felt ll1 suicidal earlier today, but not now. Brought in by mental health deputy. States she is taking her meds as prescribed. BA now. Chief complaint:. Coronavirus screen: Client denies travel out of the [place] in the last 14 days. At this time, the client does not indicate any symptoms associated with coronavirus-19. Ebola Screen: Patient denies travel to an Ebola-affected area in the 21 days before illness onset. Initial Sepsis Screen: Does the patient meet any 2 criteria? No. Patient's initial sepsis screen is negative. Does the patient have a suspected source of infection? No. Patient's initial sepsis screen is negative. Risk Assessment: Do you want to hurt yourself or someone else? Patient reports no desire to harm self or others. Onset of symptoms was November 08, 2020. 16:07 Method Of Arrival: Ambulatory ll1 16:07 Acuity: JENNA 3 ll1 Historical: - Allergies: 16:11 Tramadol HCl; ll1 16:11 Wellbutrin; ll1 - PMHx: 16:11 Arthritis; Chronic pain; COPD; Diabetes - NIDDM; Hypertension; Hypothyroidism; ll1 Osteoporosis; - PSHx: 16:11 Knee surgery; Hysterectomy; ll1 - Immunization history:: Adult Immunizations up to date, Flu vaccine is up to date. - Social history:: Smoking status: Patient denies any tobacco usage or history of. Screenin:00 Abuse screen: Denies threats or abuse. Nutritional screening: No deficits noted. em Tuberculosis screening: No symptoms or risk factors identified. Fall Risk None identified. Assessment: 17:00 General: Appears in no apparent distress. comfortable, Behavior is calm, cooperative, em appropriate for age, Denies denies HI/SI at this time. Pain: Denies pain. Neuro: Level of Consciousness is awake, alert, obeys commands, Oriented to person, place, time, situation, Appropriate for age. Cardiovascular: Capillary refill < 3 seconds Patient's skin is warm and dry. Respiratory: Airway is patent Respiratory effort is even, unlabored, Respiratory pattern is regular, symmetrical. GI: Abdomen is flat. Derm: Skin is intact, is fragile, is thin, Skin is pink, warm \\T\\ dry. Musculoskeletal: Capillary refill < 3 seconds, Range of motion: intact in all extremities. Vital Signs: 16:07 BP 143 / 75; Pulse 83; Resp 17; Temp 98.0; Pulse Ox 95% on R/A; Weight 111.13 kg; ll1 Height 5 ft. 2 in. (157.48 cm); Pain 6/10; 16:07 Body Mass Index 44.81 (111.13 kg, 157.48 cm) ll1 ED Course: 16:03 Patient arrived in ED. ds1 16:11 Triage completed. ll1 16:11 Arm band placed on Patient placed in an exam room, on a stretcher. ll1 16:19 Red Amos NP is PHCP. pm1 16:19 Luis Jacob MD is Attending Physician. pm1 16:41 Darryl Melton, ARTUR is Primary Nurse. em 17:00 Patient has correct armband on for positive identification. em 17:00 No provider procedures requiring assistance completed. Patient did not have IV access em during this emergency room visit. Administered Medications: No medications were administered Outcome: 16:37 Discharge ordered by MD. pm1 17:00 Discharged to home ambulatory. em 17:00 Condition: improved 17:00 Discharge instructions given to patient, Instructed on discharge instructions, follow up and referral plans. Demonstrated understanding of instructions, follow-up care. 17:12 Patient left the ED. em Signatures: Darryl Melton, ARTUR RN Angella Bolton ds1 Red Amos NP NEWSP[employer]ER COLUMNIST pm1 Ninfa Rosario RN RN [facility]
[2020-11-08 17:17] VITALS: BP 143/75; TEMP 98; O2SAT 95
== END 2020-11-08 17:12 | disposition home or self-care (01) ==
LOC: ER 16:02
DX: F43.0 Acute stress reaction (principal); I10 Essential (primary) hypertension; Z88.5 Allergy status to narcotic agent; Z88.8 Allergy status to other drugs, medicaments and biological substances
CPT/HCPCS: 99281

== ENCOUNTER 2022-05-14 18:15 | Emergency (ER) | payer OTHER ==
--- OUTSIDE RECORDS SUMMARY | 2022-05-14 18:31 | XMS REPORT | Continuity of Care Document ---
:1960 Author Organization [facility] t Address [address] [place] [address] Care Team Providers Name Role Phone SHARPLESS Primary Care Physician Unavailable Rey Farris Attending Clinician Unavailable RADIOLOGY Attending Clinician Unavailable Radiology Attending Clinician Unavailable Doctor Unassigned, Name Attending Clinician Unavailable Nurse, Pob Immunization Attending Clinician Unavailable Audi Banerjee DO Attending Clinician Darío RN, T Attending Clinician Unavailable Ebracecilia BOOKING SUPERVISOR Attending Clinician Green BOOKING SUPERVISOR Attending Clinician GREEN Attending Clinician Unavailable Pcp, Does Not Have A Attending Clinician Neil_S_AH Attending Clinician Unavailable Lorraine-Heidi_A_AH Attending Clinician Unavailable Sarai OLIVARES Attending Clinician Unavailable Tutu THOMAS S Attending Clinician Sarai Olivares MD Attending Clinician Skylar JUARES Attending Clinician Unavailable Skylar Juaers MD Attending Clinician Gramm BOOKING SUPERVISOR, A Attending Clinician GRAMM, A Attending Clinician Unavailable Ige-Odunmarisol_J_AH Attending Clinician Unavailable Pob, Lab Main Attending Clinician Unavailable Skylar CAM Attending Clinician Unavailable Chevy CRANE, F Attending Clinician Unavailable Milan Bruno PT Attending Clinician Unavailable Chevy CRANE, Elena Attending Clinician Unavailable Blanche PT, G Attending Clinician Unavailable Huseyin PT Attending Clinician Unavailable Rosa DYE Attending Clinician O Attending Clinician Geovany Banda MD Attending Clinician EASON Admitting Clinician Unavailable Miller_S_AH Admitting Clinician Unavailable Lorraine-Mbayo_A_AH Admitting Clinician Unavailable Ige-Odunuga_J_AH Admitting Clinician Unavailable Sarai OLIVARES Admitting Clinician Unavailable Marshall DOTSON, Sarai Admitting Clinician Payers Payer Name Policy Type Policy Number Effective Date Expiration Date [place] [employer] [place] [id number] 2018 CLASSIC NO PREMIUM 00:00:00 [facility] [place] [facility] [id number] [place] (MEDICARE REPLACEMENT/ADVANT AGE - HMO) Problems Condition Condition Condition Status Onset Resolution Last Treating Co mments Source Name Details Category Date Date Treatment Clinician Date Type 2 Type 2 Problem Active 2019-10 [facility] diabetes Diabetes 0-21 Family mellitus Mellitus 00:00: Practi c without without 00 e complicati Complicati on on Chronic Chronic Problem Active 2019-10 [facility] obstructiv Obstructiv 0-21 Fa kathleen e lung e Lung 00:00: Practic disease Disease 00 e Primary Primary Disease Active Overview: Univ ers osteoarthr osteoarthr 2-13 Formattin ity of itis of itis of 00:00: g of this [place] left knee left knee 00 note Medi mac might be Branch different from the original. Added automatic ally from request for surgery [id number] Obesity Obesity Problem Active [place] -25 Family 00:00: Practic 00 e Migraine Migraine Problem Active Ding ge with with 07-17 Family persistent Persistent 00:00: Pr actic visual Visual 00 e aura Aura Female Female Problem Active [place] stress Stress 07-17 Family incontinen Incontinen 00:00: Pr actic ce ce 00 e Osteoarthr Osteoarthr Problem Active [place] itis itis -25 Family 00:00: Practic 00 e Depressive Depressive Problem Active [place] disorder Disorder 7-28 Family 00:00: Practic 00 e Insomnia Insomnia Problem Active Timur ge 7-28 Family 00:00: Practic 00 e Essential Essential Problem Active Carlo byrne hypertensi Hypertensi 7- Fa kathleen on on 00:00: Practic 00 e Gastroesop Gastroesop Problem Active [place] hageal hageal 7 Family reflux Reflux 00:00: Practic disease Disease 00 e Total knee Total knee Disease Active U nivers replacemen replacemen 3-18 it y of t status t status 00:00: 00 Medical Branch Primary Primary Disease Active Overview: Univ ers osteoarthr osteoarthr 3-13 Formattin ity of itis of itis of 00:00: g of this [place] right knee right knee 00 note Me dical might be Branch different from the original. Added automatic ally from request for surgery [id number] Morbid Morbid Disease Active Univers obesity obesity 6-20 [place] of with body [place] body 00:[place] mass index 00 Me dical of of Branch 40.0-49.9 40.0-49.9 Hypoxia Hypoxia Disease Active Univers 6-20 ity of 00:00: 00 Medical Branch Morbid Morbid Disease Active Univers obesity obesity 6-20 it[place] of with body with body 00:[place] mass index mass index 00 Me dical of of Branch 40.0-49.9 40.0-49.9 Knee pain, Knee pain, Disease Active U nivers left left 3-28 ity of 00:00: [place] [facility] Right knee Right knee Disease Active 2014-10 U nivers pain pain 0-13 ity of 00:00: Medical Branch Allergies, Adverse Reactions, Alerts Allergy Allergy Status Severity Reaction(s) Onset Inactive Treating Comm ents Source Name Type Date Date Clinician Gabapent Propensi Active Other - See Weight U nivers in ty to comments 6 gain and ity of adverse 00:00: sleep [place] reaction 00 walk Medical s Branch GABAPENT DRUG Active Other-Cmnt Univ ers IN INGREDI 6-29 ity of 00:00: [place] 00 Medical Branch DICLOFEN DRUG Active Swelling 2020-0 Univer s AC INGREDI 3-17 ity of SODIUM 00:00: [place] 00 Medical Branch Diclofen Propensi Active Swelling 2020-0 redness Uni vers ac ty to 3-17 ity of Sodium adverse 00:00: [place] reaction 00 Medical s Branch Latex, Propensi Active Itching 2019-0 Univers Natural ty to 3-19 ity of Rubber adverse 00:00: [place] reaction 00 Medical s Branch LATEX, Drug Active Med ITCHING 2018-0 Univers NATURAL Class 3-19 ity of RUBBER 00:00: [place] 00 Medical Branch Latex, Propensi Active Itching 2019-0 Univers Natural ty to 3-19 ity of Rubber adverse 00:00: [place] reaction Medical s Branch Bupropio Propensi Active Itching Unive rs n Hcl ty to 6-15 ity of adverse 00:00: [place] reaction Medical s Branch Zolpidem Propensi Active Unknown - Sleep Uni vers ty to See comments 6-15 walk ity of adverse 00:00: [place] reaction Medical s Branch BUPROPIO DRUG Active ITCHING Univers N HCL INGREDI 6-15 ity of 00:00: [place] 00 Medical Branch ZOLPIDEM DRUG Active Unknown-Cmnt Un edmond INGREDI 6-15 ity of 00:00: [place] 00 Medical Branch Codeine Propensi Active Itching 2014-10 Hyper- is Uni vers ty to 0-13 able to ity of adverse 00:00: take but [place] reaction 00 has to Medical s have a Branch counter reaction for the itching. - per pt. No longer allergic, when she takes codeine she has to eat.Oskar Polanco MA 01/18/2016 4:26 PM [place] Propensi Active Anaphylaxis 2014-10 U nivers c ty to 0-13 ity of Trometha adverse 00:00: [place] mine reaction 00 Medical s Branch Bupropio Propensi Active Unknown - 2014-10 Uni vers n ty to See comments 0-13 ity of adverse 00:00: [place] reaction 00 Medical s Branch KETOROLA DRUG Active Anaphylaxis 2014-10 Uni vers C INGREDI 0-13 ity of TROMETHA 00:00: [place] MINE 00 Medical Branch BUPROPIO DRUG Active Unknown-Cmnt 2014-10 Un edmond N INGREDI 0-13 ity of 00:00: [place] [facility] ZOLPIDEM Allergy Active 2012-[address] [facility]: Medical [place] CODEINE Allergy Active Itching 2012-[address] [facility]: Medical [place] BUPROPIO Allergy Active Itching 2012-[address] [facility] [facility] 00:[facility]: Medical 00 [place] TORADOL Allergy Active Moderate Anaphylaxis [place] to to severe Family substanc Practic e e WELLBUTR Allergy Active Moderate Hives Ding ge IN to to severe Family substanc Practic e e Toradol Adverse Active Info Not Common Reaction Available [facility] Wellbutr Adverse Active Info Not Commo n in Reaction Available [facility] Social History Social Habit Start Date Stop Date Quantity Comments Source Exposure to Not sure [facility] SARS-CoV-2 (event) [facility] History of tobacco Cigarette Smoker [facility] Alcohol intake 2021-07-29 2021-07-29 0 /d University 00:00[facility]00 [facility] Tobacco use and 2019-01-04 2019-01-04 Never used Universit y of exposure 00:00:00 [facility] Cigarettes smoked 2019-01-04 2019-01-04 Univers ity of current (pack per 00:00:00 00:00:00 ) - Reported Branch Cigarette 2019-01-04 2019-01-04 University of pack-years 00:00:00 [facility] Sex [birth year] At [birth year] Universit [facility] 00:00:00 [facility] Smoking Status Start Date Stop Date Source [facility] 2019-01-01 00:00:00 2019-01-01 [facility]:00:00 [facility] Medications Ordered Filled Start Stop Current Ordering Indication Dosage Frequency Signature Comments Components Source Medication Medication Date Date Medication? Clinician (SIG) Name Name jcarlos 2020-10- No 10mL Take 10 mL Univers ifenesin 0-07 10-15 by mouth ity of 10-100 mg/5 00:00: 04:59 [place] 6 [place] mL oral 00 :00 (six) Medical solution hours as Branch needed for Cough for up to 7 days. Indication s: cough codeine-gua 2020-10- No 10mL Take 10 mL Univers ifenesin 0-07 10-15 by mouth ity of 10-100 mg/5 00:00: 04:59 [place] 6 [place] mL oral 00 :00 (six) Medical solution hours as Branch needed for Cough for up to 7 days. Indication s: cough codeine-gua 2020-10- No 10mL Take 10 mL Univers ifenesin 0-07 10-15 by mouth ity of 10-100 mg/5 00:00: 04:59 [place] 6 [place] mL oral 00 :00 (six) Medical solution hours as Branch needed for Cough for up to 7 days. Indication s: cough MELOXICAM 2019-10 Yes [id number] TAKE 1 Univers 7.5 mg 2-29 05 TABLET BY ity of tablet 00:00: MOUTH [place] 00 EVERY DAY Medical Branch MELOXICAM 2019-10- No [id number] TAKE 1 Univers 7.5 mg 2-29 - 05 TABLET BY ity of tablet 00:00: 00:00 MOUTH [place] 00 :00 EVERY DAY Medical Branch MELOXICAM 2019-10- No [id number] TAKE 1 Univers 7.5 mg 2-29 - 05 TABLET BY ity of tablet 00:00: 00:00 MOUTH [place] 00 :00 EVERY DAY Medical Branch DICLOFENAC 2019-10 Yes [id number] APPLY TO Univers SODIUM 1 % 1-30 05 AFFECTED ity o f gel 00:00: AREA TWICE [place] 00 A DAY Medical NEEDED FOR Branch PAIN APPLY 2 GRAMS DO NOT EXCEED 4 GRAMS IN A DAY DICLOFENAC 2019-10 Yes [id number] APPLY TO Univers SODIUM 1 % 1-30 05 AFFECTED ity o f gel 00:00: AREA TWICE [place] 00 A DAY Medical NEEDED FOR Branch PAIN APPLY 2 GRAMS DO NOT EXCEED 4 GRAMS IN A DAY DICLOFENAC 2019-10- No [id number] APPLY TO Univers SODIUM 1 % -10-22 05 AFFECTED ity of gel 00:00: 00:00 AREA TWICE [place] 00 :00 A DAY Medical NEEDED FOR Branch PAIN APPLY 2 GRAMS DO NOT EXCEED 4 GRAMS IN A DAY DICLOFENAC 2019-10- No [id number] APPLY TO Univers SODIUM 1 % 11-21 05 AFFECTED ity of gel 00:00: 00:00 AREA TWICE [place] 00 :00 A DAY Medical NEEDED FOR Branch PAIN APPLY 2 GRAMS DO NOT EXCEED 4 GRAMS IN A DAY MELOXICAM 2019-10 Yes [id number] TAKE 1 Univers 7.5 mg 1-05 05 TABLET BY ity of tablet 00:00: MOUTH [place] 00 EVERY DAY Medical Branch MELOXICAM 2019-10 Yes [id number] TAKE 1 Univers 7.5 mg 1-05 05 TABLET BY ity of tablet 00:00: MOUTH [place] 00 EVERY DAY Medical Branch MELOXICAM 2019-10 Yes [id number] TAKE 1 Univers 7.5 mg 1-05 05 TABLET BY ity of tablet 00:00: MOUTH [place] 00 EVERY DAY Medical Branch MELOXICAM 2019-10 Yes [id number] TAKE 1 Univers 7.5 mg 1-05 05 TABLET BY ity of tablet 00:00: MOUTH [place] 00 EVERY DAY Medical Branch MELOXICAM 2019-10 Yes [id number] TAKE 1 Univers 7.5 mg 1-05 05 TABLET BY ity of tablet 00:00: MOUTH [place] 00 EVERY DAY Medical Branch MELOXICAM 2019-10 Yes [id number] TAKE 1 Univers 7.5 mg 1-05 05 TABLET BY ity of tablet 00:00: MOUTH [place] 00 EVERY DAY Medical Branch MELOXICAM 2019-10 Yes [id number] TAKE 1 Univers 7.5 mg 1-05 05 TABLET BY ity of tablet 00:00: MOUTH [place] 00 EVERY DAY Medical Branch MELOXICAM 2019-10 2020- No [id number] TAKE 1 Univers 7.5 mg 1-05 12-29 05 TABLET BY ity of tablet 00:00: 00:00 MOUTH [place] 00 :00 EVERY DAY Medical Branch meloxicam 2020- No 7.5mg Univer s (MOBIC) 04-24 ity of tablet 7.5 17:00: 04:59 [place] mg 00 :00 Medical Branch meloxicam 2019- 2020- No 7.5mg Univer s (MOBIC) 04-24 ity of tablet 7.5 17:00: 04:59 [place] mg 00 :00 Medical Branch meloxicam 2019- 2020- No 7.5mg Univer s (MOBIC) 04-24 ity of tablet 7.5 17:00: 04:59 [place] mg 00 :00 Medical Branch meloxicam 2020-0 Yes 7.5mg Take 1 Unive rs 7.5 mg 7-03 tablet by ity of tablet 00:00: mouth [place] 00 daily. Medical Branch meloxicam 2020-0 Yes 7.5mg Take 1 Unive rs 7.5 mg 7-03 tablet by ity of tablet 00:00: mouth [place] 00 daily. Medical Branch meloxicam 2020-0 Yes 7.5mg Take 1 Unive rs 7.5 mg 7-03 tablet by ity of tablet 00:00: mouth [place] 00 daily. Medical Branch meloxicam 2020-0 2020- No 7.5mg Take 1 Univ ers 7.5 mg 7-03 11-05 tablet by ity of tablet 00:00: 00:00 mouth [place] 00 :00 daily. Medical Branch calcium 2020-0 Yes Take by Univer s carbonate/v 6-29 mouth. ity of itamin D3 20:44: [place] (CALCIUM 32 Medical 500 + D Branch ORAL) Cholecalcif 2020-0 Yes Take by Un edmond romi, 6-29 mouth. ity of Vitamin D3, 20:44: [place] (D3) Medical 50 mcg Branch (2,000 unit) capsule MILK 2020-0 Yes 350mg Take 350 Univers THISTLE 6-29 mg by ity of ORAL 20:44: mouth. [place] [address] Medical Branch evening 2020-0 Yes 100mg Take 100 Unive rs primrose 6-29 mg by ity of oil 20:44: mouth. [place] (EVENING 32 Medical PRIMROSE Branch ORAL) calcium 2020-0 Yes Take by Univer s carbonate/v 6-29 mouth. ity of itamin D3 20:44: [place] (CALCIUM 32 Medical 500 + D Branch ORAL) Cholecalcif 2020-0 Yes Take by Un edmond romi, 6-29 mouth. ity of Vitamin D3, 20:44: [place] (D3) 32 Medical 50 mcg Branch (2,000 unit) capsule MILK 2020-0 Yes 350mg Take 350 Univers THISTLE 6-29 mg by ity of ORAL 20:44: mouth. [place] [address] Medical Branch evening 2020-0 Yes 100mg Take 100 Unive rs primrose 6-29 mg by ity of oil 20:44: mouth. [place] (EVENING 32 Medical PRIMROSE Branch ORAL) calcium 2020-0 Yes Take by Univer s carbonate/v 6-29 mouth. ity of itamin D3 20:44: [place] (CALCIUM 32 Medical 500 + D Branch ORAL) Cholecalcif 2020-0 Yes Take by Un edmond romi, 6-29 mouth. ity of Vitamin D3, 20:44: [place] (D3) 32 Medical 50 mcg Branch (2,000 unit) capsule MILK 2020-0 Yes 350mg Take 350 Univers THISTLE 6-29 mg by ity of ORAL 20:44: mouth. [place] [address] Medical Branch evening 2020-0 Yes 100mg Take 100 Unive rs primrose 6-29 mg by ity of oil 20:44: mouth. [place] (EVENING 32 Medical PRIMROSE Branch ORAL) calcium 2020-0 Yes Take by Univer s carbonate/v 6-29 mouth. ity of itamin D3 20:44: [place] (CALCIUM 32 Medical 500 + D Branch ORAL) Cholecalcif 2020-0 Yes Take by Un edmond romi, 6-29 mouth. ity of Vitamin D3, 20:44: [place] (D3) 32 Medical 50 mcg Branch (2,000 unit) capsule MILK 2020-0 Yes 350mg Take 350 Univers THISTLE 6-29 mg by ity of ORAL 20:44: mouth. [place] [address] Medical Branch evening 2020-0 Yes 100mg Take 100 Unive rs primrose 6-29 mg by ity of oil 20:44: mouth. [place] (EVENING 32 Medical PRIMROSE Branch ORAL) calcium 2020-0 Yes Take by Univer s carbonate/v 6-29 mouth. ity of itamin D3 20:44: [place] (CALCIUM 32 Medical 500 + D Branch ORAL) Cholecalcif 2020-0 Yes Take by Un edmond romi, 6-29 mouth. ity of Vitamin D3, 20:44: [place] (D3) Medical 50 mcg Branch (2,000 unit) capsule MILK 2020-0 Yes 350mg Take 350 Univers THISTLE 6-29 mg by ity of ORAL 20:44: mouth. [place] [address] Medical Branch evening 2020-0 Yes 100mg Take 100 Unive rs primrose 6-29 mg by ity of oil 20:44: mouth. [place] (EVENING 32 Medical PRIMROSE Branch ORAL) calcium 2020-0 Yes Take by Univer s carbonate/v 6-29 mouth. ity of itamin D3 20:44: [place] (CALCIUM 32 Medical 500 + D Branch ORAL) Cholecalcif 2020-0 Yes Take by Un edmond romi, 6-29 mouth. ity of Vitamin D3, 20:44: [place] (D3) 32 Medical 50 mcg Branch (2,000 unit) capsule MILK 2020-0 Yes 350mg Take 350 Univers THISTLE 6-29 mg by ity of ORAL 20:44: mouth. [place] [address] Medical Branch evening 2020-0 Yes 100mg Take 100 Unive rs primrose 6-29 mg by ity of oil 20:44: mouth. [place] (EVENING 32 Medical PRIMROSE Branch ORAL) calcium 2020-0 Yes Take by Univer s carbonate/v 6-29 mouth. ity of itamin D3 20:44: [place] (CALCIUM 32 Medical 500 + D Branch ORAL) Cholecalcif 2020-0 Yes Take by Un edmond romi, 6-29 mouth. ity of Vitamin D3, 20:44: [place] (D3) 32 Medical 50 mcg Branch (2,000 unit) capsule MILK 2020-0 Yes 350mg Take 350 Univers THISTLE 6-29 mg by ity of ORAL 20:44: mouth. [place] [address] Medical Branch evening 2020-0 Yes 100mg Take 100 Unive rs primrose 6-29 mg by ity of oil 20:44: mouth. [place] (EVENING 32 Medical PRIMROSE Branch ORAL) calcium 2020-0 Yes Take by Univer s carbonate/v 6-29 mouth. ity of itamin D3 20:44: [place] (CALCIUM 32 Medical 500 + D Branch ORAL) Cholecalcif 2020-0 Yes Take by Un edmond romi, 6-29 mouth. ity of Vitamin D3, 20:44: [place] () 32 Medical 50 mcg Branch (2,000 unit) capsule MILK 2020-0 Yes 350mg Take 350 Univers THISTLE 6-29 mg by ity of ORAL 20:44: mouth. [place] [address] Medical Branch evening 2020-0 Yes 100mg Take 100 Unive rs primrose 6-29 mg by ity of oil 20:44: mouth. [place] (EVENING 32 Medical PRIMROSE Branch ORAL) calcium 2020-0 Yes Take by Univer s carbonate/v 6-29 mouth. ity of itamin D3 20:44: [place] (CALCIUM 32 Medical 500 + D Branch ORAL) Cholecalcif 2020-0 Yes Take by Un edmond romi, 6-29 mouth. ity of Vitamin D3, 20:44: [place] (D3) 32 Medical 50 mcg Branch (2,000 unit) capsule MILK 2020-0 Yes 350mg Take 350 Univers THISTLE 6-29 mg by ity of ORAL 20:44: mouth. [place] [address] Medical Branch evening 2020-0 Yes 100mg Take 100 Unive rs primrose 6-29 mg by ity of oil 20:44: mouth. [place] (EVENING 32 Medical PRIMROSE Branch ORAL) calcium 2020-0 Yes Take by Univer s carbonate/v 6-29 mouth. ity of itamin D3 20:44: [place] (CALCIUM 32 Medical 500 + D Branch ORAL) Cholecalcif 2020-0 Yes Take by Un edmond romi, 6-29 mouth. ity of Vitamin D3, 20:44: [place] (D3) Medical 50 mcg Branch (2,000 unit) capsule MILK 2020-0 Yes 350mg Take 350 Univers THISTLE 6-29 mg by ity of ORAL 20:44: mouth. [address] evening 2020-0 Yes 100mg Take 100 Unive rs primrose 6-29 mg by ity of oil 20:44: mouth. [place] (EVENING 32 Medical PRIMROSE Branch ORAL) calcium 2020-0 Yes Take by Univer s carbonate/v 6-29 mouth. ity of itamin D3 20:44: [place] (CALCIUM 32 Medical 500 + D Branch ORAL) Cholecalcif 2020-0 Yes Take by Un edmond romi, 6-29 mouth. ity of Vitamin D3, 20:44: [place] (D3) Medical 50 mcg Branch (2,000 unit) capsule MILK 2020-0 Yes 350mg Take 350 Univers THISTLE 6-29 mg by ity of ORAL 20:44: mouth. [address] Branch evening 2020-0 Yes 100mg Take 100 Unive rs primrose 6-29 mg by ity of oil 20:44: mouth. [place] (EVENING 32 Medical PRIMROSE Branch ORAL) calcium 2020-0 Yes Take by Univer s carbonate/v 6-29 mouth. ity of itamin D3 20:44: [place] (CALCIUM 32 Medical 500 + D Branch ORAL) Cholecalcif 2020-0 Yes Take by Un edmond romi, 6-29 mouth. ity of Vitamin D3, 20:44: [place] (D3) Medical 50 mcg Branch (2,000 unit) capsule MILK 2020-0 Yes 350mg Take 350 Univers THISTLE 6-29 mg by ity of ORAL 20:44: mouth. [place] 32 Medical Branch evening 2020-0 Yes 100mg Take 100 Unive rs primrose 6-29 mg by ity of oil 20:44: mouth. [place] (EVENING 32 Medical PRIMROSE Branch ORAL) calcium 2020-0 Yes Take by Univer s carbonate/v 6-29 mouth. ity of itamin D3 20:44: [place] (CALCIUM 32 Medical 500 + D Branch ORAL) Cholecalcif 2020-0 Yes Take by Un edmond romi, 6-29 mouth. ity of Vitamin D3, 20:44: [place] (D3) Medical 50 mcg Branch (2,000 unit) capsule MILK 2020-0 Yes 350mg Take 350 Univers THISTLE 6-29 mg by ity of ORAL 20:44: mouth. [address] evening 2020-0 Yes 100mg Take 100 Unive rs primrose 6-29 mg by ity of oil 20:44: mouth. [place] (EVENING Medical PRIMROSE Branch ORAL) calcium 2020-0 Yes Take by Univer s carbonate/v 6-29 mouth. ity of itamin D3 20:44: [place] (CALCIUM Medical 500 + D Branch ORAL) Cholecalcif 2020-0 Yes Take by Un edmond romi, 6-29 mouth. ity of Vitamin D3, 20:44: [place] (D3) Medical 50 mcg Branch (2,000 unit) capsule MILK 2020-0 Yes 350mg Take 350 Univers THISTLE 6-29 mg by ity of ORAL 20:44: mouth. [address] evening 2020-0 Yes 100mg Take 100 Unive rs primrose 6-29 mg by ity of oil 20:44: mouth. [place] (EVENING 32 Medical PRIMROSE Branch ORAL) calcium 2020-0 Yes Take by Univer s carbonate/v 6-29 mouth. ity of itamin D3 20:44: [place] (CALCIUM 32 Medical 500 + D Branch ORAL) Cholecalcif 2020-0 Yes Take by Un edmond romi, 6-29 mouth. ity of Vitamin D3, 20:44: [place] (D3) Medical 50 mcg Branch (2,000 unit) capsule MILK 2020-0 Yes 350mg Take 350 Univers THISTLE 6-29 mg by ity of ORAL 20:44: mouth. [address] evening 2020-0 Yes 100mg Take 100 Unive rs primrose 6-29 mg by ity of oil 20:44: mouth. [place] (EVENING 32 Medical PRIMROSE Branch ORAL) calcium 2020-0 Yes Take by Univer s carbonate/v 6-29 mouth. ity of itamin D3 20:44: [place] (CALCIUM 32 Medical 500 + D Branch ORAL) Cholecalcif 2020-0 Yes Take by Un edmond romi, 6-29 mouth. ity of Vitamin D3, 20:44: [place] (D3) Medical 50 mcg Branch (2,000 unit) capsule MILK 2020-0 Yes 350mg Take 350 Univers THISTLE 6-29 mg by ity of ORAL 20:44: mouth. [place] [address] Medical Branch evening 2020-0 Yes 100mg Take 100 Unive rs primrose 6-29 mg by ity of oil 20:44: mouth. [place] (EVENING 32 Medical PRIMROSE Branch ORAL) calcium 2020-0 Yes Take by Univer s carbonate/v 6-29 mouth. ity of itamin D3 20:44: [place] (CALCIUM 32 Medical 500 + D Branch ORAL) Cholecalcif 2020-0 Yes Take by Un edmond rmoi, 6-29 mouth. ity of Vitamin D3, 20:44: [place] (D3) Medical 50 mcg Branch (2,000 unit) capsule MILK 2020-0 Yes 350mg Take 350 Univers THISTLE 6-29 mg by ity of ORAL 20:44: mouth. [place] [address] Medical [place] evening 2020-0 Yes 100mg Take 100 Unive rs primrose 6-29 mg by ity of oil 20:44: mouth. [place] (EVENING 32 Medical PRIMROSE Branch ORAL) calcium 2020-0 Yes Take by Univer s carbonate/v 6-29 mouth. ity of itamin D3 20:44: [place] (CALCIUM 32 Medical 500 + D Branch ORAL) Cholecalcif 2020-0 Yes Take by Un edmond romi, 6-29 mouth. ity of Vitamin D3, 20:44: [place] (D3) Medical 50 mcg Branch (2,000 unit) capsule MILK 2020-0 Yes 350mg Take 350 Univers THISTLE 6-29 mg by ity of ORAL 20:44: mouth. [place] [address] Medical Branch evening 2020-0 Yes 100mg Take 100 Unive rs primrose 6-29 mg by ity of oil 20:44: mouth. [place] (EVENING 32 Medical PRIMROSE Branch ORAL) calcium 2020-0 Yes Take by Univer s carbonate/v 6-29 mouth. ity of itamin D3 20:44: [place] (CALCIUM 32 Medical 500 + D Branch ORAL) Cholecalcif 2020-0 Yes Take by Un edmond romi, 6-29 mouth. ity of Vitamin D3, 20:44: [place] (D3) 32 Medical 50 mcg Branch (2,000 unit) capsule MILK 2020-0 Yes 350mg Take 350 Univers THISTLE 6-29 mg by ity of ORAL 20:44: mouth. [place] [address] Medical Branch evening 2020-0 Yes 100mg Take 100 Unive rs primrose 6-29 mg by ity of oil 20:44: mouth. [place] (EVENING 32 Medical PRIMROSE Branch ORAL) calcium 2020-0 Yes Take by Univer s carbonate/v 6-29 mouth. ity of itamin D3 20:44: [place] (CALCIUM 32 Medical 500 + D Branch ORAL) Cholecalcif 2020-0 Yes Take by Un edmond romi, 6-29 mouth. ity of Vitamin D3, 20:44: [place] (D3) 32 Medical 50 mcg Branch (2,000 unit) capsule MILK 2020-0 Yes 350mg Take 350 Univers THISTLE 6-29 mg by ity of ORAL 20:44: mouth. [place] [address] Medical Branch evening 2020-0 Yes 100mg Take 100 Unive rs primrose 6-29 mg by ity of oil 20:44: mouth. [place] (EVENING 32 Medical PRIMROSE Branch ORAL) calcium 2020-0 Yes Take by Univer s carbonate/v 6-29 mouth. ity of itamin D3 20:44: [place] (CALCIUM 32 Medical 500 + D Branch ORAL) Cholecalcif 2020-0 Yes Take by Un edmond romi, 6-29 mouth. ity of Vitamin D3, 20:44: [place] (D3) 32 Medical 50 mcg Branch (2,000 unit) capsule MILK 2020-0 Yes 350mg Take 350 Univers THISTLE 6-29 mg by ity of ORAL 20:44: mouth. [place] [address] Medical Branch evening 2020-0 Yes 100mg Take 100 Unive rs primrose 6-29 mg by ity of oil 20:44: mouth. [place] (EVENING 32 Medical PRIMROSE Branch ORAL) calcium 2020-0 Yes Take by Univer s carbonate/v 6-29 mouth. ity of itamin D3 20:44: [place] (CALCIUM 32 Medical 500 + D Branch ORAL) Cholecalcif 2020-0 Yes Take by Un edmond romi, 6-29 mouth. ity of Vitamin D3, 20:44: [place] (D3-1999) 32 Medical 50 mcg Branch (2,000 unit) capsule MILK 2020-0 Yes 350mg Take 350 Univers THISTLE 6-29 mg by ity of ORAL 20:44: mouth. [place] 32 Medical Branch evening 2020-0 Yes 100mg Take 100 Unive rs primrose 6-29 mg by ity of oil 20:44: mouth. [place] (EVENING 32 Medical PRIMROSE Branch ORAL) melatonin 3 2020-0 Yes 3mg Take 3 mg U nivers mg tablet 6-29 by mouth 3 ity of 20:38: (three) [place] 55 times Medical daily. Branch cinnamon 2020-0 Yes Take by [employer] bark-chromi 6-29 mouth. ity of um-ALA 20:38: [place] 500-100-150 55 Medical mg-mcg-mg Branch Cap melatonin 3 2020-0 Yes 3mg Take 3 mg U nivers mg tablet 6-29 by mouth 3 ity of 20:38: (three) [place] 55 times Medical daily. Branch cinnamon 2020-0 Yes Take by [employer] bark-chromi 6-29 mouth. ity of um-ALA 20:38: [place] 500-100-150 55 Medical mg-mcg-mg Branch Cap melatonin 3 2020-0 Yes 3mg Take 3 mg U nivers mg tablet 6-29 by mouth 3 ity of 20:38: (three) [place] 55 times Medical daily. Branch cinnamon 2020-0 Yes Take by [place] bark-chromi 6-29 mouth. ity of um-ALA 20:38: [place] 500-100-150 55 Medical mg-mcg-mg Branch Cap melatonin 3 2020-0 Yes 3mg Take 3 mg U nivers mg tablet 6-29 by mouth 3 ity of 20:38: (three) [place] 55 times Medical daily. Branch cinnamon 2020-0 Yes Take by [employer] bark-chromi 6-29 mouth. ity of um-ALA 20:38: [place] 500-100-150 55 Medical mg-mcg-mg Branch Cap melatonin 3 2020-0 Yes 3mg Take 3 mg U nivers mg tablet 6-29 by mouth 3 ity of 20:38: (three) [place] 55 times Medical daily. Branch cinnamon 2020-0 Yes Take by [employer] 6- mouth. ity of um-ALA 20:38: [place] 500-100-150 55 Medical mg-mcg-mg Branch Cap melatonin 3 2020-0 Yes 3mg Take 3 mg U nivers mg tablet 6-29 by mouth 3 ity of 20:38: (three) [place] 55 times Medical daily. Branch cinnamon 2020-0 Yes Take by [employer]-chromi 6-29 mouth. ity of um-ALA 20:38: [place] 500-100-150 55 Medical mg-mcg-mg Branch Cap melatonin 3 2020-0 Yes 3mg Take 3 mg U nivers mg tablet 6-29 by mouth 3 ity of 20:38: (three) [place] 55 times Medical daily. Branch cinnamon 2020-0 Yes Take by [employer] 6- mouth. ity of um-ALA 20:38: [place] 500-100-150 55 Medical mg-mcg-mg Branch Cap melatonin 3 2020-0 Yes 3mg Take 3 mg U nivers mg tablet 6-29 by mouth 3 ity of 20:38: (three) [place] 55 times Medical daily. Branch cinnamon 2020-0 Yes Take by [employer]-chrom[employer] 6- mouth. ity of um-ALA 20:38: [place] 500-100-150 55 Medical mg-mcg-mg Branch Cap melatonin 3 2020-0 Yes 3mg Take 3 mg U nivers mg tablet 6-29 by mouth 3 ity of 20:38: (three) [place] 55 times Medical daily. Branch cinnamon 2020-0 Yes Take by [employer] 6- mouth. ity of um-ALA 20:38: [place] 500-100-150 55 Medical mg-mcg-mg Branch Cap melatonin 3 2020-0 Yes 3mg Take 3 mg U nivers mg tablet 6-29 by mouth 3 ity of 20:38: (three) [place] 55 times Medical daily. Branch cinnamon 2020-0 Yes Take by [employer] 6-29 mouth. ity of um-ALA 20:38: [place] 500-100-150 55 Medical mg-mcg-mg Branch Cap melatonin 3 2020-0 Yes 3mg Take 3 mg U nivers mg tablet 6-29 by mouth 3 ity of 20:38: (three) [place] 55 times Medical daily. Branch cinnamon 2020-0 Yes Take by [place] bark-chromi 6-29 mouth. ity of um-ALA 20:38: [place] 500-100-150 55 Medical mg-mcg-mg Branch Cap melatonin 3 2020-0 Yes 3mg Take 3 mg U nivers mg tablet 6-29 by mouth 3 ity of 20:38: (three) [place] 55 times Medical daily. Branch cinnamon 2020-0 Yes Take by [facility] [employer] bark-chromi 6-29 mouth. ity of um-ALA 20:38: [place] 500-100-150 55 Medical mg-mcg-mg Branch Cap melatonin 3 2020-0 Yes 3mg Take 3 mg U nivers mg tablet 6-29 by mouth 3 ity of 20:38: (three) [place] 55 times Medical daily. Branch cinnamon 2020-0 Yes Take by [facility] [employer] bark-chromi 6-29 mouth. ity of um-ALA 20:38: [place] 500-100-150 55 Medical mg-mcg-mg Branch Cap melatonin 3 2020-0 Yes 3mg Take 3 mg U nivers mg tablet 6-29 by mouth 3 ity of 20:38: (three) [place] 55 times Medical daily. Branch cinnamon 2020-0 Yes Take by [facility] [employer]chrom[employer] 6- mouth. ity of um-ALA 20:38: [place] 500-100-150 55 Medical mg-mcg-mg Branch Cap melatonin 3 2020-0 Yes 3mg Take 3 mg U nivers mg tablet 6-29 by mouth 3 ity of 20:38: (three) [place] 55 times Medical daily. Branch cinnamon 2020-0 Yes Take by [facility] [employer]chrom[employer] 6-29 mouth. ity of um-ALA 20:38: [place] 500-100-150 55 Medical mg-mcg-mg Branch Cap melatonin 3 2020-0 Yes 3mg Take 3 mg U nivers mg tablet 6-29 by mouth 3 ity of 20:38: (three) [place] 55 times Medical daily. Branch cinnamon 2020-0 Yes Take by [facility] [employer] bark-chromi 6-29 mouth. ity of um-ALA 20:38: [place] 500-100-150 55 Medical mg-mcg-mg Branch Cap melatonin 3 2020-0 Yes 3mg Take 3 mg U nivers mg tablet 6-29 by mouth 3 ity of 20:38: (three) [place] 55 times Medical daily. Branch cinnamon 2020-0 Yes Take by [facility] [employer] bark-chromi 6-29 mouth. ity of um-ALA 20:38: [place] 500-100-150 55 Medical mg-mcg-mg Branch Cap melatonin 3 2020-0 Yes 3mg Take 3 mg U nivers mg tablet 6-29 by mouth 3 ity of 20:38: (three) [place] 55 times Medical daily. Branch cinnamon 2020-0 Yes Take by [facility] [employer] bark-chromi 6-29 mouth. ity of um-ALA 20:38: [place] 500-100-150 55 Medical mg-mcg-mg Branch Cap melatonin 3 2020-0 Yes 3mg Take 3 mg U nivers mg tablet 6-29 by mouth 3 ity of 20:38: (three) [place] 55 times Medical daily. Branch cinnamon 2020-0 Yes Take by [facility] [employer] bark-chromi 6-29 mouth. ity of um-ALA 20:38: [place] 500-100-150 55 Medical mg-mcg-mg Branch Cap melatonin 3 2020-0 Yes 3mg Take 3 mg U nivers mg tablet 6-29 by mouth 3 ity of 20:38: (three) [place] 55 times Medical daily. Branch cinnamon 2020-0 Yes Take by [facility] [employer] bark-chromi 6-29 mouth. ity of um-ALA 20:38: [place] 500-100-150 55 Medical mg-mcg-mg Branch Cap melatonin 3 2020-0 Yes 3mg Take 3 mg U nivers mg tablet 6-29 by mouth 3 ity of 20:38: (three) [place] 55 times Medical daily. Branch cinnamon 2020-0 Yes Take by [facility] [employer] bark-chromi 6-29 mouth. ity of um-ALA 20:38: [place] 500-100-150 55 Medical mg-mcg-mg Branch Cap melatonin 3 2020-0 Yes 3mg Take 3 mg U nivers mg tablet 6-29 by mouth 3 ity of 20:38: (three) [place] 55 times Medical daily. Branch cinnamon 2020-0 Yes Take by [facility] [employer] bark-chromi 6-29 mouth. ity of um-ALA 20:38: [place] 500-100-150 55 Medical mg-mcg-mg Branch Cap melatonin 3 2020-0 Yes 3mg Take 3 mg U nivers mg tablet 6-29 by mouth 3 ity of 20:38: (three) [place] 55 times Medical daily. Branch cinnamon 2020-0 Yes Take by [employer] bark-chromi 6-29 mouth. ity of um-ALA 20:38: [place] 500-100-150 55 Medical mg-mcg-mg Branch Cap verapamil 2020-0 Yes 120mg Take 120 Uni vers (VERELAN 6-29 mg by ity of PM) 120 mg 20:35: mouth at [place] 24 hr 30 bedtime. Medical capsule Branch metFORMIN 2020-0 Yes 500mg Take 500 Uni vers 500 mg 6-29 mg by ity of tablet 20:35: mouth 2 [place] 30 (two) Medical times Branch daily with meals. rOPINIRole 2020-0 Yes 2mg Take 2 mg [facility] [place] 2 mg tablet 6-29 by mouth ity of 20:35: at [place] 30 bedtime. Medical Branch venlafaxine 2020-0 Yes 150mg Take 150 U nivers XR 150 mg 6-29 mg by ity of 24 hr 20:35: mouth [place] capsule 30 daily with Medica l breakfast. Branch pantoprazol 2020-0 Yes 40mg Take 40 mg [facility] e 40 mg EC 6-29 by mouth ity o f tablet 20:35: daily. [place] 30 Medical Branch amitriptyli 2020-0 Yes 100mg Take 100 U nivers ne 75 mg 6-29 mg by ity of tablet 20:35: mouth at [place] 30 bedtime. Medical Branch verapamil 2020-0 Yes 120mg Take 120 Uni vers (VERELAN 6-29 mg by ity of PM) 120 mg 20:35: mouth at [place] 24 hr 30 bedtime. Medical capsule Branch metFORMIN 2020-0 Yes 500mg Take 500 Uni vers 500 mg 6-29 mg by ity of tablet 20:35: mouth 2 [place] 30 (two) Medical times Branch daily with meals. rOPINIRole 2020-0 Yes 2mg Take 2 mg [facility] [place] 2 mg tablet 6-29 by mouth ity of 20:35: at [place] 30 bedtime. Medical Branch venlafaxine 2020-0 Yes 150mg Take 150 U nivers XR 150 mg 6-29 mg by ity of 24 hr 20:35: mouth [place] capsule 30 daily with Medica l breakfast. Branch pantoprazol 2020-0 Yes 40mg Take 40 mg [facility] e 40 mg EC 6-29 by mouth ity o f tablet 20:35: daily. [place] 30 Medical Branch amitriptyli 2020-0 Yes 100mg Take 100 U nivers ne 75 mg 6-29 mg by ity of tablet 20:35: mouth at [place] 30 bedtime. Medical Branch verapamil 2020-0 Yes 120mg Take 120 Uni vers (VERELAN 6-29 mg by ity of PM) 120 mg 20:35: mouth at [place] 24 hr 30 bedtime. Medical capsule Branch metFORMIN 2020-0 Yes 500mg Take 500 Uni vers 500 mg 6-29 mg by ity of tablet 20:35: mouth 2 [place] 30 (two) Medical times Branch daily with meals. rOPINIRole 2020-0 Yes 2mg Take 2 mg [facility] [place] 2 mg tablet 6-29 by mouth ity of 20:35: at [place] 30 bedtime. Medical Branch venlafaxine 2020-0 Yes 150mg Take 150 U nivers XR 150 mg 6-29 mg by ity of 24 hr 20:35: mouth [place] capsule 30 daily with Medica l breakfast. Branch pantoprazol 2020-0 Yes 40mg Take 40 mg [facility] e 40 mg EC 6-29 by mouth ity o f tablet 20:35: daily. [place] Medical Branch amitriptyli 2020-0 Yes 100mg Take 100 U nivers ne 75 mg 6-29 mg by ity of tablet 20:35: mouth at [place] 30 bedtime. Medical Branch verapamil 2020-0 Yes 120mg Take 120 Uni vers (VERELAN 6-29 mg by ity of PM) 120 mg 20:35: mouth at [place] 24 hr 30 bedtime. Medical capsule Branch metFORMIN 2020-0 Yes 500mg Take 500 Uni vers 500 mg 6-29 mg by ity of tablet 20:35: mouth 2 [place] 30 (two) Medical times Branch daily with meals. rOPINIRole 2020-0 Yes 2mg Take 2 mg [facility] [place] 2 mg tablet 6-29 by mouth ity of 20:35: at [place] 30 bedtime. Medical Branch venlafaxine 2020-0 Yes 150mg Take 150 U nivers XR 150 mg 6-29 mg by ity of 24 hr 20:35: mouth [place] capsule 30 daily with Medica l breakfast. Branch pantoprazol 2020-0 Yes 40mg Take 40 mg [facility] e 40 mg EC 6-29 by mouth ity o f tablet 20:35: daily. [place] 30 Medical Branch amitriptyli 2020-0 Yes 100mg Take 100 U nivers ne 75 mg 6-29 mg by ity of tablet 20:35: mouth at [place] 30 bedtime. Medical Branch verapamil 2020-0 Yes 120mg Take 120 Uni vers (VERELAN 6-29 mg by ity of PM) 120 mg 20:35: mouth at [place] 24 hr 30 bedtime. Medical capsule Branch metFORMIN 2020-0 Yes 500mg Take 500 Uni vers 500 mg 6-29 mg by ity of tablet 20:35: mouth 2 [place] 30 (two) Medical times Branch daily with meals. rOPINIRole 2020-0 Yes 2mg Take 2 mg [facility] [place] 2 mg tablet 6-29 by mouth ity of 20:35: at [place] 30 bedtime. Medical Branch venlafaxine 2020-0 Yes 150mg Take 150 U nivers XR 150 mg 6-29 mg by ity of 24 hr 20:35: mouth [place] capsule 30 daily with Medica l breakfast. Branch pantoprazol 2020-0 Yes 40mg Take 40 mg [facility] e 40 mg EC 6-29 by mouth ity o f tablet 20:35: daily. [place] [address] Medical Branch amitriptyli 2020-0 Yes 100mg Take 100 U nivers ne 75 mg 6-29 mg by ity of tablet 20:35: mouth at [place] 30 bedtime. Medical Branch verapamil 2020-0 Yes 120mg Take 120 Uni vers (VERELAN 6-29 mg by ity of PM) 120 mg 20:35: mouth at [place] 24 hr 30 bedtime. Medical capsule Branch metFORMIN 2020-0 Yes 500mg Take 500 Uni vers 500 mg 6-29 mg by ity of tablet 20:35: mouth 2 [place] 30 (two) Medical times Branch daily with meals. rOPINIRole 2020-0 Yes 2mg Take 2 mg [facility] [place] 2 mg tablet 6-29 by mouth ity of 20:35: at [place] 30 bedtime. Medical Branch venlafaxine 2020-0 Yes 150mg Take 150 U nivers XR 150 mg 6-29 mg by ity of 24 hr 20:35: mouth [place] capsule 30 daily with Medica l breakfast. Branch pantoprazol 2020-0 Yes 40mg Take 40 mg [facility] e 40 mg EC 6-29 by mouth ity o f tablet 20:35: daily. [place] [address] Medical Branch amitriptyli 2020-0 Yes 100mg Take 100 U nivers ne 75 mg 6-29 mg by ity of tablet 20:35: mouth at [place] 30 bedtime. Medical Branch verapamil 2020-0 Yes 120mg Take 120 Uni vers (VERELAN 6-29 mg by ity of PM) 120 mg 20:35: mouth at [place] 24 hr 30 bedtime. Medical capsule Branch metFORMIN 2020-0 Yes 500mg Take 500 Uni vers 500 mg 6-29 mg by ity of tablet 20:35: mouth 2 [place] 30 (two) Medical times Branch daily with meals. rOPINIRole 2020-0 Yes 2mg Take 2 mg [facility] [place] 2 mg tablet 6-29 by mouth ity of 20:35: at [place] 30 bedtime. Medical Branch venlafaxine 2020-0 Yes 150mg Take 150 U nivers XR 150 mg 6-29 mg by ity of 24 hr 20:35: mouth [place] capsule 30 daily with Medica l breakfast. Branch pantoprazol 2020-0 Yes 40mg Take 40 mg [facility] e 40 mg EC 6-29 by mouth ity o f tablet 20:35: daily. [place] [address] Medical Branch amitriptyli 2020-0 Yes 100mg Take 100 U nivers ne 75 mg 6-29 mg by ity of tablet 20:35: mouth at [place] 30 bedtime. Medical Branch verapamil 2020-0 Yes 120mg Take 120 Uni vers (VERELAN 6-29 mg by ity of PM) 120 mg 20:35: mouth at [place] 24 hr 30 bedtime. Medical capsule Branch metFORMIN 2020-0 Yes 500mg Take 500 Uni vers 500 mg 6-29 mg by ity of tablet 20:35: mouth 2 [place] 30 (two) Medical times Branch daily with meals. rOPINIRole 2020-0 Yes 2mg Take 2 mg [place] 2 mg tablet 6-29 by mouth ity of 20:35: at [place] 30 bedtime. Medical Branch venlafaxine 2020-0 Yes 150mg Take 150 U nivers XR 150 mg 6-29 mg by ity of 24 hr 20:35: mouth [place] capsule 30 daily with Medica l breakfast. Branch pantoprazol 2020-0 Yes 40mg Take 40 mg [facility] e 40 mg EC 6-29 by mouth ity o f tablet 20:35: daily. [place] [address] Medical Branch amitriptyli 2020-0 Yes 100mg Take 100 U nivers ne 75 mg 6-29 mg by ity of tablet 20:35: mouth at [place] 30 bedtime. Medical Branch verapamil 2020-0 Yes 120mg Take 120 Uni vers (VERELAN 6-29 mg by ity of PM) 120 mg 20:35: mouth at [place] 24 hr 30 bedtime. Medical capsule Branch metFORMIN 2020-0 Yes 500mg Take 500 Uni vers 500 mg 6-29 mg by ity of tablet 20:35: mouth 2 [place] 30 (two) Medical times Branch daily with meals. rOPINIRole 2020-0 Yes 2mg Take 2 mg [place] 2 mg tablet 6-29 by mouth ity of 20:35: at [place] 30 bedtime. Medical Branch venlafaxine 2020-0 Yes 150mg Take 150 U nivers XR 150 mg 6-29 mg by ity of 24 hr 20:35: mouth [place] capsule 30 daily with Medica l breakfast. Branch pantoprazol 2020-0 Yes 40mg Take 40 mg [facility] e 40 mg EC 6-29 by mouth ity o f tablet 20:35: daily. [place] 30 Medical Branch amitriptyli 2020-0 Yes 100mg Take 100 U nivers ne 75 mg 6-29 mg by ity of tablet 20:35: mouth at [place] 30 bedtime. Medical Branch verapamil 2020-0 Yes 120mg Take 120 Uni vers (VERELAN 6-29 mg by ity of PM) 120 mg 20:35: mouth at [place] 24 hr 30 bedtime. Medical capsule Branch metFORMIN 2020-0 Yes 500mg Take 500 Uni vers 500 mg 6-29 mg by ity of tablet 20:35: mouth 2 [place] 30 (two) Medical times Branch daily with meals. rOPINIRole 2020-0 Yes 2mg Take 2 mg [place] 2 mg tablet 6-29 by mouth ity of 20:35: at [place] 30 bedtime. Medical Branch venlafaxine 2020-0 Yes 150mg Take 150 U nivers XR 150 mg 6-29 mg by ity of 24 hr 20:35: mouth [place] capsule 30 daily with Medica l breakfast. Branch pantoprazol 2020-0 Yes 40mg Take 40 mg [facility] e 40 mg EC 6-29 by mouth ity o f tablet 20:35: daily. [place] 30 Medical Branch amitriptyli 2020-0 Yes 100mg Take 100 U nivers ne 75 mg 6-29 mg by ity of tablet 20:35: mouth at [place] 30 bedtime. Medical Branch verapamil 2020-0 Yes 120mg Take 120 Uni vers (VERELAN 6-29 mg by ity of PM) 120 mg 20:35: mouth at [place] 24 hr 30 bedtime. Medical capsule Branch metFORMIN 2020-0 Yes 500mg Take 500 Uni vers 500 mg 6-29 mg by ity of tablet 20:35: mouth 2 [place] 30 (two) Medical times Branch daily with meals. rOPINIRole 2020-0 Yes 2mg Take 2 mg [place] 2 mg tablet 6-29 by mouth ity of 20:35: at [place] 30 bedtime. Medical Branch venlafaxine 2020-0 Yes 150mg Take 150 U nivers XR 150 mg 6-29 mg by ity of 24 hr 20:35: mouth [place] capsule 30 daily with Medica l breakfast. Branch pantoprazol 2020-0 Yes 40mg Take 40 mg [facility] e 40 mg EC 6-29 by mouth ity o f tablet 20:35: daily. [place] 30 Medical Branch amitriptyli 2020-0 Yes 100mg Take 100 U nivers ne 75 mg 6-29 mg by ity of tablet 20:35: mouth at [place] 30 bedtime. Medical Branch verapamil 2020-0 Yes 120mg Take 120 Uni vers (VERELAN 6-29 mg by ity of PM) 120 mg 20:35: mouth at [place] 24 hr 30 bedtime. Medical capsule Branch metFORMIN 2020-0 Yes 500mg Take 500 Uni vers 500 mg 6-29 mg by ity of tablet 20:35: mouth 2 [place] 30 (two) Medical times Branch daily with meals. rOPINIRole 2020-0 Yes 2mg Take 2 mg [place] 2 mg tablet 6-29 by mouth ity of 20:35: at [place] 30 bedtime. Medical Branch venlafaxine 2020-0 Yes 150mg Take 150 U nivers XR 150 mg 6-29 mg by ity of 24 hr 20:35: mouth [place] capsule 30 daily with Medica l breakfast. Branch pantoprazol 2020-0 Yes 40mg Take 40 mg [facility] e 40 mg EC 6-29 by mouth ity o f tablet 20:35: daily. [place] 30 Medical Branch amitriptyli 2020-0 Yes 100mg Take 100 U nivers ne 75 mg 6-29 mg by ity of tablet 20:35: mouth at [place] 30 bedtime. Medical Branch verapamil 2020-0 Yes 120mg Take 120 Uni vers (VERELAN 6-29 mg by ity of PM) 120 mg 20:35: mouth at [place] 24 hr 30 bedtime. Medical capsule Branch metFORMIN 2020-0 Yes 500mg Take 500 Uni vers 500 mg 6-29 mg by ity of tablet 20:35: mouth 2 [place] 30 (two) Medical times Branch daily with meals. rOPINIRole 2020-0 Yes 2mg Take 2 mg [place] 2 mg tablet 6-29 by mouth ity of 20:35: at [place] 30 bedtime. Medical Branch venlafaxine 2020-0 Yes 150mg Take 150 U nivers XR 150 mg 6-29 mg by ity of 24 hr 20:35: mouth [place] capsule 30 daily with Medica l breakfast. Branch pantoprazol 2020-0 Yes 40mg Take 40 mg [facility] e 40 mg EC 6-29 by mouth ity o f tablet 20:35: daily. 30 Medical Branch amitriptyli 2020-0 Yes 100mg Take 100 U nivers ne 75 mg 6-29 mg by ity of tablet 20:35: mouth at [place] 30 bedtime. Medical Branch verapamil 2020-0 Yes 120mg Take 120 Uni vers (VERELAN 6-29 mg by ity of PM) 120 mg 20:35: mouth at [place] 24 hr 30 bedtime. Medical capsule Branch metFORMIN 2020-0 Yes 500mg Take 500 Uni vers 500 mg 6-29 mg by ity of tablet 20:35: mouth 2 [place] 30 (two) Medical times Branch daily with meals. rOPINIRole 2020-0 Yes 2mg Take 2 mg [place] 2 mg tablet 6-29 by mouth ity of 20:35: at [place] 30 bedtime. Medical Branch venlafaxine 2020-0 Yes 150mg Take 150 U nivers XR 150 mg 6-29 mg by ity of 24 hr 20:35: mouth [place] capsule 30 daily with Medica l breakfast. Branch pantoprazol 2020-0 Yes 40mg Take 40 mg [facility] e 40 mg EC 6-29 by mouth ity o f tablet 20:35: daily. [place] 30 Medical Branch amitriptyli 2020-0 Yes 100mg Take 100 U nivers ne 75 mg 6-29 mg by ity of tablet 20:35: mouth at [place] 30 bedtime. Medical Branch verapamil 2020-0 Yes 120mg Take 120 Uni vers (VERELAN 6-29 mg by ity of PM) 120 mg 20:35: mouth at [place] 24 hr 30 bedtime. Medical capsule Branch metFORMIN 2020-0 Yes 500mg Take 500 Uni vers 500 mg 6-29 mg by ity of tablet 20:35: mouth 2 [place] 30 (two) Medical times Branch daily with meals. rOPINIRole 2020-0 Yes 2mg Take 2 mg [place] 2 mg tablet 6-29 by mouth ity of 20:35: at [place] 30 bedtime. Medical Branch venlafaxine 2020-0 Yes 150mg Take 150 U nivers XR 150 mg 6-29 mg by ity of 24 hr 20:35: mouth [place] capsule 30 daily with Medica l breakfast. Branch pantoprazol 2020-0 Yes 40mg Take 40 mg [facility] e 40 mg EC 6-29 by mouth ity o f tablet 20:35: daily. [place] 30 Medical Branch amitriptyli 2020-0 Yes 100mg Take 100 U nivers ne 75 mg 6-29 mg by ity of tablet 20:35: mouth at [place] 30 bedtime. Medical Branch verapamil 2020-0 Yes 120mg Take 120 Uni vers (VERELAN 6-29 mg by ity of PM) 120 mg 20:35: mouth at [place] 24 hr 30 bedtime. Medical capsule Branch metFORMIN 2020-0 Yes 500mg Take 500 Uni vers 500 mg 6-29 mg by ity of tablet 20:35: mouth 2 [place] 30 (two) Medical times Branch daily with meals. rOPINIRole 2020-0 Yes 2mg Take 2 mg [place] 2 mg tablet 6-29 by mouth ity of 20:35: at [place] 30 bedtime. Medical Branch venlafaxine 2020-0 Yes 150mg Take 150 U nivers XR 150 mg 6-29 mg by ity of 24 hr 20:35: mouth [place] capsule 30 daily with Medica l breakfast. Branch pantoprazol 2020-0 Yes 40mg Take 40 mg [facility] e 40 mg EC 6-29 by mouth ity o f tablet 20:35: daily. [place] 30 Medical Branch amitriptyli 2020-0 Yes 100mg Take 100 U nivers ne 75 mg 6-29 mg by ity of tablet 20:35: mouth at [place] 30 bedtime. Medical Branch verapamil 2020-0 Yes 120mg Take 120 Uni vers (VERELAN 6-29 mg by ity of PM) 120 mg 20:35: mouth at [place] 24 hr 30 bedtime. Medical capsule Branch metFORMIN 2020-0 Yes 500mg Take 500 Uni vers 500 mg 6-29 mg by ity of tablet 20:35: mouth 2 [place] 30 (two) Medical times Branch daily with meals. rOPINIRole 2020-0 Yes 2mg Take 2 mg [place] 2 mg tablet 6-29 by mouth ity of 20:35: at [place] 30 bedtime. Medical Branch venlafaxine 2020-0 Yes 150mg Take 150 U nivers XR 150 mg 6-29 mg by ity of 24 hr 20:35: mouth [place] capsule 30 daily with Medica l breakfast. Branch pantoprazol 2020-0 Yes 40mg Take 40 mg [facility] e 40 mg EC 6-29 by mouth ity o f tablet 20:35: daily. [place] Medical Branch amitriptyli 2020-0 Yes 100mg Take 100 U nivers ne 75 mg 6-29 mg by ity of tablet 20:35: mouth at [place] 30 bedtime. Medical Branch verapamil 2020-0 Yes 120mg Take 120 Uni vers (VERELAN 6-29 mg by ity of PM) 120 mg 20:35: mouth at [place] 24 hr 30 bedtime. Medical capsule Branch metFORMIN 2020-0 Yes 500mg Take 500 Uni vers 500 mg 6-29 mg by ity of tablet 20:35: mouth 2 [place] (two) Medical times Branch daily with meals. rOPINIRole 2020-0 Yes 2mg Take 2 mg [place] 2 mg tablet 6-29 by mouth ity of 20:35: at [place] 30 bedtime. Medical Branch venlafaxine 2020-0 Yes 150mg Take 150 U nivers XR 150 mg 6-29 mg by ity of 24 hr 20:35: mouth [place] capsule 30 daily with Medica l breakfast. Branch pantoprazol 2020-0 Yes 40mg Take 40 mg [facility] e 40 mg EC 6-29 by mouth ity o f tablet 20:35: daily. [place] Medical Branch amitriptyli 2020-0 Yes 100mg Take 100 U nivers ne 75 mg 6-29 mg by ity of tablet 20:35: mouth at [place] 30 bedtime. Medical Branch verapamil 2020-0 Yes 120mg Take 120 Uni vers (VERELAN 6-29 mg by ity of PM) 120 mg 20:35: mouth at [place] 24 hr 30 bedtime. Medical capsule Branch metFORMIN 2020-0 Yes 500mg Take 500 Uni vers 500 mg 6-29 mg by ity of tablet 20:35: mouth 2 [place] 30 (two) Medical times Branch daily with meals. rOPINIRole 2020-0 Yes 2mg Take 2 mg [place] 2 mg tablet 6-29 by mouth ity of 20:35: at [place] 30 bedtime. Medical Branch venlafaxine 2020-0 Yes 150mg Take 150 U nivers XR 150 mg 6-29 mg by ity of 24 hr 20:35: mouth [place] capsule 30 daily with Medica l breakfast. Branch pantoprazol 2020-0 Yes 40mg Take 40 mg [facility] e 40 mg EC 6-29 by mouth ity o f tablet 20:35: daily. 30 Medical Branch amitriptyli 2020-0 Yes 100mg Take 100 U nivers ne 75 mg 6-29 mg by ity of tablet 20:35: mouth at [place] 30 bedtime. Medical Branch verapamil 2020-0 Yes 120mg Take 120 Uni vers (VERELAN 6-29 mg by ity of PM) 120 mg 20:35: mouth at [place] 24 hr 30 bedtime. Medical capsule Branch metFORMIN 2020-0 Yes 500mg Take 500 Uni vers 500 mg 6-29 mg by ity of tablet 20:35: mouth 2 [place] 30 (two) Medical times Branch daily with meals. rOPINIRole 2020-0 Yes 2mg Take 2 mg [place] 2 mg tablet 6-29 by mouth ity of 20:35: at [place] 30 bedtime. Medical Branch venlafaxine 2020-0 Yes 150mg Take 150 U nivers XR 150 mg 6-29 mg by ity of 24 hr 20:35: mouth [place] capsule 30 daily with Medica l breakfast. Branch pantoprazol 2020-0 Yes 40mg Take 40 mg [facility] e 40 mg EC 6-29 by mouth ity o f tablet 20:35: daily. Medical Branch amitriptyli 2020-0 Yes 100mg Take 100 U nivers ne 75 mg 6-29 mg by ity of tablet 20:35: mouth at [place] 30 bedtime. Medical Branch verapamil 2020-0 Yes 120mg Take 120 Uni vers (VERELAN 6-29 mg by ity of PM) 120 mg 20:35: mouth at [place] 24 hr 30 bedtime. Medical capsule Branch metFORMIN 2020-0 Yes 500mg Take 500 Uni vers 500 mg 6-29 mg by ity of tablet 20:35: mouth 2 [place] 30 (two) Medical times Branch daily with meals. rOPINIRole 2020-0 Yes 2mg Take 2 mg [place] 2 mg tablet 6-29 by mouth ity of 20:35: at [place] 30 bedtime. Medical Branch venlafaxine 2020-0 Yes 150mg Take 150 U nivers XR 150 mg 6-29 mg by ity of 24 hr 20:35: mouth [place] capsule 30 daily with Medica l breakfast. Branch pantoprazol 2020-0 Yes 40mg Take 40 mg [facility] e 40 mg EC 6-29 by mouth ity o f tablet 20:35: daily. 30 Medical Branch amitriptyli 2020-0 Yes 100mg Take 100 U nivers ne 75 mg 6-29 mg by ity of tablet 20:35: mouth at [place] 30 bedtime. Medical Branch verapamil 2020-0 Yes 120mg Take 120 Uni vers (VERELAN 6-29 mg by ity of PM) 120 mg 20:35: mouth at [place] 24 hr 30 bedtime. Medical capsule Branch metFORMIN 2020-0 Yes 500mg Take 500 Uni vers 500 mg 6-29 mg by ity of tablet 20:35: mouth 2 30 (two) Medical times Branch daily with meals. rOPINIRole 2020-0 Yes 2mg Take 2 mg [facility] [place] 2 mg tablet 6-29 by mouth ity of 20:35: at [place] 30 bedtime. Medical Branch venlafaxine 2020-0 Yes 150mg Take 150 U nivers XR 150 mg 6-29 mg by ity of 24 hr 20:35: mouth [place] capsule 30 daily with Medica l breakfast. Branch pantoprazol 2020-0 Yes 40mg Take 40 mg [facility] e 40 mg EC 6-29 by mouth ity o f tablet 20:35: daily. Medical Branch amitriptyli 2020-0 Yes 100mg Take 100 U nivers ne 75 mg 6-29 mg by ity of tablet 20:35: mouth at [place] 30 bedtime. Medical Branch verapamil 2020-0 Yes 120mg Take 120 Uni vers (VERELAN 6-29 mg by ity of PM) 120 mg 20:35: mouth at [place] 24 hr 30 bedtime. Medical capsule Branch metFORMIN 2020-0 Yes 500mg Take 500 [facility] vers 500 mg 6-29 mg by ity of tablet 20:35: mouth 2 30 (two) Medical times Branch daily with meals. rOPINIRole 2020-0 Yes 2mg Take 2 mg [facility] [place] 2 mg tablet 6-29 by mouth ity of 20:35: at [place] 30 bedtime. Medical Branch venlafaxine 2020-0 Yes 150mg Take 150 U nivers XR 150 mg 6-29 mg by ity of 24 hr 20:35: mouth [place] capsule 30 daily with Medica l breakfast. Branch pantoprazol 2020-0 Yes 40mg Take 40 mg [facility] e 40 mg EC 6-29 by mouth ity o f tablet 20:35: daily. [place] [address] Medical Branch amitriptyli 2020-0 Yes 100mg Take 100 U nivers ne 75 mg 6-29 mg by ity of tablet 20:35: mouth at [place] 30 bedtime. Medical Branch calcium 2020-0 Yes Take by [facility] s carbonate/v 6-29 mouth. ity of itamin D3 15:44: [place] (CALCIUM 32 Medical 500 + D Branch ORAL) Cholecalcif 2020-0 Yes Take by [facility] romi, 04-20 mouth. ity of Vitamin D3, 15:44: [place] (D3) Medical 50 mcg Branch (2,000 unit) capsule MILK 2020-0 Yes 350mg Take 350 [facility] THISTLE 6-29 mg by ity of ORAL 15:44: mouth. [place] [address] Medical Branch evening 2020-0 Yes 100mg Take 100 Un[facility] rs primrose 6-29 mg by ity of oil 15:44: mouth. [place] (EVENING 32 Medical PRIMROSE Branch ORAL) calcium 2020-0 Yes Take by [facility]iver s carbonate/v -29 mouth. ity of itamin D3 15:44: [place] (CALCIUM 32 Medical 500 + D Branch ORAL) Cholecalcif 2020-0 Yes Take by [facility] romi, 04-20 mouth. ity of Vitamin D3, 15:44: [place] (D3) Medical 50 mcg Branch (2,000 unit) capsule MILK 2020-0 Yes 350mg Take 350 [facility] THISTLE 6-29 mg by ity of ORAL 15:44: mouth. [place] [address] Medical Branch evening 2020-0 Yes 100mg Take 100 Un[facility] rs primrose 6-29 mg by ity of oil 15:44: mouth. [place] (EVENING 32 Medical PRIMROSE Branch ORAL) calcium 2020-0 Yes Take by [facility] carbonate/v 6-29 mouth. ity of itamin D3 15:44: [place] (CALCIUM 32 Medical 500 + D Branch ORAL) Cholecalcif 2020-0 Yes Take by [facility] romi, 6-29 mouth. ity of Vitamin D3, 15:44: [place] (D3) Medical 50 mcg Branch (2,000 unit) capsule MILK 2020-0 Yes 350mg Take 350 [facility] THISTLE 6-29 mg by ity of ORAL 15:44: mouth. [place] [address] Medical Branch evening 2020-0 Yes 100mg Take 100 Un[facility] rs primrose 6-29 mg by ity of oil 15:44: mouth. [place] (EVENING 32 Medical PRIMROSE Branch ORAL) calcium 2020-0 Yes Take by [facility] carbonate/v 6-29 mouth. ity of itamin D3 15:44: [place] (CALCIUM 32 Medical 500 + D Branch ORAL) Cholecalcif 2020-0 Yes Take by [facility] romi, 6-29 mouth. ity of Vitamin D3, 15:44: [place] (D3) Medical 50 mcg Branch (2,000 unit) capsule MILK 2020-0 Yes 350mg Take 350 [facility] THISTLE 6-29 mg by ity of ORAL 15:44: mouth. [place] [address] Medical Branch evening 2020-0 Yes 100mg Take 100 Un[facility] rs primrose 6-29 mg by ity of oil 15:44: mouth. [place] (EVENING 32 Medical PRIMROSE Branch ORAL) calcium 2020-0 Yes Take by [facility]iver s carbonate/v 6-29 mouth. ity of itamin D3 15:44: [place] (CALCIUM 32 Medical 500 + D Branch ORAL) Cholecalcif 2020-0 Yes Take by [facility] romi, 6-29 mouth. ity of Vitamin D3, 15:44: [place] (D3) Medical 50 mcg Branch (2,000 unit) capsule MILK 2020-0 Yes 350mg Take 350 [facility] THISTLE 6-29 mg by ity of ORAL 15:44: mouth. [place] [address] Medical Branch evening 2020-0 Yes 100mg Take 100 [facility] rs primrose 6-29 mg by ity of oil 15:44: mouth. [place] (EVENING 32 Medical PRIMROSE Branch ORAL) calcium 2020-0 Yes Take by [facility] s carbonate/v 6-29 mouth. ity of itamin D3 15:44: [place] (CALCIUM 32 Medical 500 + D Branch ORAL) Cholecalcif 2020-0 Yes Take by [facility] romi, 6-29 mouth. ity of Vitamin D3, 15:44: [place] (D3) 32 Medical 50 mcg Branch (2,000 unit) capsule MILK 2020-0 Yes 350mg Take 350 [facility] THISTLE 6-29 mg by ity of ORAL 15:44: mouth. [place] [address] Medical Branch evening 2020-0 Yes 100mg Take 100 Un[facility] rs primrose 6-29 mg by ity of oil 15:44: mouth. [place] (EVENING 32 Medical PRIMROSE Branch ORAL) calcium 2020-0 Yes Take by [facility] s carbonate/v 6-29 mouth. ity of itamin D3 15:44: [place] (CALCIUM 32 Medical 500 + D Branch ORAL) Cholecalcif 2020-0 Yes Take by [facility] romi, 6-29 mouth. ity of Vitamin D3, 15:44: [place] (D3) Medical 50 mcg Branch (2,000 unit) capsule MILK 2020-0 Yes 350mg Take 350 [facility] THISTLE 6-29 mg by ity of ORAL 15:44: mouth. [place] [address] Medical [place] evening 2020-0 Yes 100mg Take 100 Unive rs primrose 6-29 mg by ity of oil 15:44: mouth. [place] (EVENING 32 Medical PRIMROSE Branch ORAL) calcium 2020-0 Yes Take by Univer s carbonate/v 6-29 mouth. ity of itamin D3 15:44: [place] (CALCIUM 32 Medical 500 + D Branch ORAL) Cholecalcif 2020-0 Yes Take by [facility] romi, 6-29 mouth. ity of Vitamin D3, 15:44: [place] (D3) Medical 50 mcg Branch (2,000 unit) capsule MILK 2020-0 Yes 350mg Take 350 [facility] THISTLE 6-29 mg by ity of ORAL 15:44: mouth. [address] evening 2020-0 Yes 100mg Take 100 Un[facility] rs primrose 6-29 mg by ity of oil 15:44: mouth. [place] (EVENING 32 Medical PRIMROSE Branch ORAL) calcium 2020-0 Yes Take by Univer s carbonate/v 6-29 mouth. ity of itamin D3 15:44: [place] (CALCIUM 32 Medical 500 + D Branch ORAL) Cholecalcif 2020-0 Yes Take by [facility] romi, 6-29 mouth. ity of Vitamin D3, 15:44: [place] (D3) Medical 50 mcg Branch (2,000 unit) capsule MILK 2020-0 Yes 350mg Take 350 [facility] THISTLE 6-29 mg by ity of ORAL 15:44: mouth. [place] 32 Medical Branch evening 2020-0 Yes 100mg Take 100 Un[facility] rs primrose 6-29 mg by ity of oil 15:44: mouth. [place] (EVENING 32 Medical PRIMROSE Branch ORAL) melatonin 3 2020-0 Yes 3mg Take 3 mg U nivers mg tablet 6-29 by mouth 3 ity of 15:38: (three) [place] 55 times Medical daily. Branch cinnamon 2020-0 Yes Take by Unive rs bark-chromi 6-29 mouth. ity of um-ALA 15:38: [place] 500-100-150 55 Medical mg-mcg-mg Branch Cap melatonin 3 2020-0 Yes 3mg Take 3 mg U nivers mg tablet 6-29 by mouth 3 ity of 15:38: (three) [place] 55 times Medical daily. Branch cinnamon 2020-0 Yes Take by Unive rs bark-chromi 6-29 mouth. ity of um-ALA 15:38: [place] 500-100-150 55 Medical mg-mcg-mg Branch Cap melatonin 3 2020-0 Yes 3mg Take 3 mg U nivers mg tablet 6-29 by mouth 3 ity of 15:38: (three) [place] 55 times Medical daily. Branch cinnamon 2020-0 Yes Take by Unive rs bark-chromi 6-29 mouth. ity of um-ALA 15:38: [place] 500-100-150 55 Medical mg-mcg-mg Branch Cap melatonin 3 2020-0 Yes 3mg Take 3 mg U nivers mg tablet 6-29 by mouth 3 ity of 15:38: (three) [place] 55 times Medical daily. Branch cinnamon 2020-0 Yes Take by Un[facility] rs bark-chromi 6-29 mouth. ity of um-ALA 15:38: [place] 500-100-150 55 Medical mg-mcg-mg Branch Cap melatonin 3 2020-0 Yes 3mg Take 3 mg U nivers mg tablet 6-29 by mouth 3 ity of 15:38: (three) [place] 55 times Medical daily. Branch cinnamon 2020-0 Yes Take by Un[facility] rs bark-chromi 6-29 mouth. ity of um-ALA 15:38: [place] 500-100-150 55 Medical mg-mcg-mg Branch Cap melatonin 3 2020-0 Yes 3mg Take 3 mg U nivers mg tablet 6-29 by mouth 3 ity of 15:38: (three) [place] 55 times Medical daily. Branch cinnamon 2020-0 Yes Take by [facility] rs bark-chromi 6-29 mouth. ity of um-ALA 15:38: [place] 500-100-150 55 Medical mg-mcg-mg Branch Cap melatonin 3 2020-0 Yes 3mg Take 3 mg U nivers mg tablet 6-29 by mouth 3 ity of 15:38: (three) [place] 55 times Medical daily. Branch cinnamon 2020-0 Yes Take by [facility] rs bark-chromi 6-29 mouth. ity of um-ALA 15:38: [place] 500-100-150 55 Medical mg-mcg-mg Branch Cap melatonin 3 2020-0 Yes 3mg Take 3 mg U nivers mg tablet 6-29 by mouth 3 ity of 15:38: (three) [place] 55 times Medical daily. Branch cinnamon 2020-0 Yes Take by [facility] rs bark-chromi 6-29 mouth. ity of um-ALA 15:38: [place] 500-100-150 55 Medical mg-mcg-mg Branch Cap melatonin 3 2020-0 Yes 3mg Take 3 mg U nivers mg tablet 6-29 by mouth 3 ity of 15:38: (three) [place] 55 times Medical daily. Branch cinnamon 2020-0 Yes Take by [facility] bark-chromi 6-29 mouth. ity of um-ALA 15:38: [place] 500-100-150 55 Medical mg-mcg-mg Branch Cap verapamil 2020-0 Yes 120mg Take 120 Uni vers (VERELAN 6-29 mg by ity of PM) 120 mg 15:35: mouth at [place] 24 hr 30 bedtime. Medical capsule Branch metFORMIN 2020-0 Yes 500mg Take 500 Uni vers 500 mg 6-29 mg by ity of tablet 15:35: mouth 2 [place] 30 (two) Medical times Branch daily with meals. rOPINIRole 2020-0 Yes 2mg Take 2 mg [facility] [place] 2 mg tablet 6-29 by mouth ity of 15:35: at [place] 30 bedtime. Medical Branch venlafaxine 2020-0 Yes 150mg Take 150 U nivers XR 150 mg 6-29 mg by ity of 24 hr 15:35: mouth [place] capsule 30 daily with Medica l breakfast. Branch pantoprazol 2020-0 Yes 40mg Take 40 mg [facility] e 40 mg EC 6-29 by mouth ity o f tablet 15:35: daily. [place] 30 Medical Branch amitriptyli 2020-0 Yes 100mg Take 100 U nivers ne 75 mg 6-29 mg by ity of tablet 15:35: mouth at [place] 30 bedtime. Medical Branch verapamil 2020-0 Yes 120mg Take 120 Uni vers (VERELAN 6-29 mg by ity of PM) 120 mg 15:35: mouth at [place] 24 hr 30 bedtime. Medical capsule Branch metFORMIN 2020-0 Yes 500mg Take 500 Uni vers 500 mg 6-29 mg by ity of tablet 15:35: mouth 2 [place] 30 (two) Medical times Branch daily with meals. rOPINIRole 2020-0 Yes 2mg Take 2 mg [facility] [place] 2 mg tablet 6-29 by mouth ity of 15:35: at [place] 30 bedtime. Medical Branch venlafaxine 2020-0 Yes 150mg Take 150 U nivers XR 150 mg 6-29 mg by ity of 24 hr 15:35: mouth [place] capsule 30 daily with Medica l breakfast. Branch pantoprazol 2020-0 Yes 40mg Take 40 mg [facility] e 40 mg EC 6-29 by mouth ity o f tablet 15:35: daily. [place] [address] Medical Branch amitriptyli 2020-0 Yes 100mg Take 100 U nivers ne 75 mg 6-29 mg by ity of tablet 15:35: mouth at [place] 30 bedtime. Medical Branch verapamil 2020-0 Yes 120mg Take 120 Uni vers (VERELAN 6-29 mg by ity of PM) 120 mg 15:35: mouth at [place] 24 hr 30 bedtime. Medical capsule Branch metFORMIN 2020-0 Yes 500mg Take 500 Uni vers 500 mg 6-29 mg by ity of tablet 15:35: mouth 2 [place] 30 (two) Medical times Branch daily with meals. rOPINIRole 2020-0 Yes 2mg Take 2 mg [facility] [place] 2 mg tablet 6-29 by mouth ity of 15:35: at [place] 30 bedtime. Medical Branch venlafaxine 2020-0 Yes 150mg Take 150 U nivers XR 150 mg 6-29 mg by ity of 24 hr 15:35: mouth [place] capsule 30 daily with Medica l breakfast. Branch pantoprazol 2020-0 Yes 40mg Take 40 mg [facility] e 40 mg EC 6-29 by mouth ity o f tablet 15:35: daily. [place] [address] Medical Branch amitriptyli 2020-0 Yes 100mg Take 100 U nivers ne 75 mg 6-29 mg by ity of tablet 15:35: mouth at [place] 30 bedtime. Medical Branch verapamil 2020-0 Yes 120mg Take 120 Uni vers (VERELAN 6-29 mg by ity of PM) 120 mg 15:35: mouth at [place] 24 hr 30 bedtime. Medical capsule Branch metFORMIN 2020-0 Yes 500mg Take 500 Uni vers 500 mg 6-29 mg by ity of tablet 15:35: mouth 2 [place] 30 (two) Medical times Branch daily with meals. rOPINIRole 2020-0 Yes 2mg Take 2 mg [facility] [place] 2 mg tablet 6-29 by mouth ity of 15:35: at [place] 30 bedtime. Medical Branch venlafaxine 2020-0 Yes 150mg Take 150 U nivers XR 150 mg 6-29 mg by ity of 24 hr 15:35: mouth [place] capsule 30 daily with Medica l breakfast. Branch pantoprazol 2020-0 Yes 40mg Take 40 mg [facility] e 40 mg EC 6-29 by mouth ity o f tablet 15:35: daily. [place] 30 Medical Branch amitriptyli 2020-0 Yes 100mg Take 100 U nivers ne 75 mg 6-29 mg by ity of tablet 15:35: mouth at [place] 30 bedtime. Medical Branch verapamil 2020-0 Yes 120mg Take 120 Uni vers (VERELAN 6-29 mg by ity of PM) 120 mg 15:35: mouth at [place] 24 hr 30 bedtime. Medical capsule Branch metFORMIN 2020-0 Yes 500mg Take 500 Uni vers 500 mg 6-29 mg by ity of tablet 15:35: mouth 2 [place] 30 (two) Medical times Branch daily with meals. rOPINIRole 2020-0 Yes 2mg Take 2 mg [facility] [place] 2 mg tablet 6-29 by mouth ity of 15:35: at [place] 30 bedtime. Medical Branch venlafaxine 2020-0 Yes 150mg Take 150 U nivers XR 150 mg 6-29 mg by ity of 24 hr 15:35: mouth [place] capsule 30 daily with Medica l breakfast. Branch pantoprazol 2020-0 Yes 40mg Take 40 mg [facility] e 40 mg EC 6-29 by mouth ity o f tablet 15:35: daily. [place] 30 Medical Branch amitriptyli 2020-0 Yes 100mg Take 100 U nivers ne 75 mg 6-29 mg by ity of tablet 15:35: mouth at [place] 30 bedtime. Medical Branch verapamil 2020-0 Yes 120mg Take 120 Uni vers (VERELAN 6-29 mg by ity of PM) 120 mg 15:35: mouth at [place] 24 hr 30 bedtime. Medical capsule Branch metFORMIN 2020-0 Yes 500mg Take 500 Uni vers 500 mg 6-29 mg by ity of tablet 15:35: mouth 2 [place] 30 (two) Medical times Branch daily with meals. rOPINIRole 2020-0 Yes 2mg Take 2 mg [facility] [place] 2 mg tablet 6-29 by mouth ity of 15:35: at [place] 30 bedtime. Medical Branch venlafaxine 2020-0 Yes 150mg Take 150 U nivers XR 150 mg 6-29 mg by ity of 24 hr 15:35: mouth [place] capsule 30 daily with Medica l breakfast. Branch pantoprazol 2020-0 Yes 40mg Take 40 mg [facility] e 40 mg EC 6-29 by mouth ity o f tablet 15:35: daily. [place] [address] Medical Branch amitriptyli 2020-0 Yes 100mg Take 100 U nivers ne 75 mg 6-29 mg by ity of tablet 15:35: mouth at [place] 30 bedtime. Medical Branch verapamil 2020-0 Yes 120mg Take 120 Uni vers (VERELAN 6-29 mg by ity of PM) 120 mg 15:35: mouth at [place] 24 hr 30 bedtime. Medical capsule Branch metFORMIN 2020-0 Yes 500mg Take 500 Uni vers 500 mg 6-29 mg by ity of tablet 15:35: mouth 2 [place] 30 (two) Medical times Branch daily with meals. rOPINIRole 2020-0 Yes 2mg Take 2 mg [facility] [place] 2 mg tablet 6-29 by mouth ity of 15:35: at [place] 30 bedtime. Medical Branch venlafaxine 2020-0 Yes 150mg Take 150 U nivers XR 150 mg 6-29 mg by ity of 24 hr 15:35: mouth [place] capsule 30 daily with Medica l breakfast. Branch pantoprazol 2020-0 Yes 40mg Take 40 mg [facility] e 40 mg EC 6-29 by mouth ity o f tablet 15:35: daily. [place] [address] Medical Branch amitriptyli 2020-0 Yes 100mg Take 100 U nivers ne 75 mg 6-29 mg by ity of tablet 15:35: mouth at [place] 30 bedtime. Medical Branch verapamil 2020-0 Yes 120mg Take 120 Uni vers (VERELAN 6-29 mg by ity of PM) 120 mg 15:35: mouth at [place] 24 hr 30 bedtime. Medical capsule Branch metFORMIN 2020-0 Yes 500mg Take 500 Uni vers 500 mg 6-29 mg by ity of tablet 15:35: mouth 2 [place] 30 (two) Medical times Branch daily with meals. rOPINIRole 2020-0 Yes 2mg Take 2 mg [facility] [place] 2 mg tablet 6-29 by mouth ity of 15:35: at [place] 30 bedtime. Medical Branch venlafaxine 2020-0 Yes 150mg Take 150 U nivers XR 150 mg 6-29 mg by ity of 24 hr 15:35: mouth [place] capsule 30 daily with Medica l breakfast. Branch pantoprazol 2020-0 Yes 40mg Take 40 mg [facility] e 40 mg EC 6-29 by mouth ity o f tablet 15:35: daily. [place] [address] Medical Branch amitriptyli 2020-0 Yes 100mg Take 100 U nivers ne 75 mg 6-29 mg by ity of tablet 15:35: mouth at [place] 30 bedtime. Medical Branch verapamil 2020-0 Yes 120mg Take 120 Uni vers (VERELAN 6-29 mg by ity of PM) 120 mg 15:35: mouth at [place] 24 hr 30 bedtime. Medical capsule Branch metFORMIN 2020-0 Yes 500mg Take 500 Uni vers 500 mg 6-29 mg by ity of tablet 15:35: mouth 2 [place] 30 (two) Medical times Branch daily with meals. rOPINIRole 2020-0 Yes 2mg Take 2 mg [facility] [place] 2 mg tablet 6-29 by mouth ity of 15:35: at [place] 30 bedtime. Medical Branch venlafaxine 2020-0 Yes 150mg Take 150 U nivers XR 150 mg 6-29 mg by ity of 24 hr 15:35: mouth [place] capsule 30 daily with Medica l breakfast. Branch pantoprazol 2020-0 Yes 40mg Take 40 mg [facility] e 40 mg EC 6-29 by mouth ity o f tablet 15:35: daily. [place] [address] Medical Branch amitriptyli 2020-0 Yes 100mg Take 100 U nivers ne 75 mg 6-29 mg by ity of tablet 15:35: mouth at [place] 30 bedtime. Medical Branch DICLOFENAC 2020-0 Yes [id number] APPLY TO Univers SODIUM 1 % 5-26 05 AFFECTED ity o f gel 00:00: AREA TWICE [place] 00 A DAY Medical NEEDED FOR Branch PAIN APPLY 2 GRAMS DO NOT EXCEED 4 GRAMS IN A DAY DICLOFENAC 2020-0 Yes [id number] APPLY TO Univers SODIUM 1 % 5-26 05 AFFECTED ity o f gel 00:00: AREA TWICE [place] 00 A DAY Medical NEEDED FOR Branch PAIN APPLY 2 GRAMS DO NOT EXCEED 4 GRAMS IN A DAY DICLOFENAC 2020-0 Yes [id number] APPLY TO Univers SODIUM 1 % 5-26 05 AFFECTED ity o f gel 00:00: AREA TWICE [place] 00 A DAY Medical NEEDED FOR Branch PAIN APPLY 2 GRAMS DO NOT EXCEED 4 GRAMS IN A DAY DICLOFENAC 2020-0 Yes [id number] APPLY TO Univers SODIUM 1 % 5-26 05 AFFECTED ity o f gel 00:00: AREA TWICE [place] 00 A DAY Medical NEEDED FOR Branch PAIN APPLY 2 GRAMS DO NOT EXCEED 4 GRAMS IN A DAY DICLOFENAC 2020-0 Yes [id number] APPLY TO Univers SODIUM 1 % 5-26 05 AFFECTED ity o f gel 00:00: AREA TWICE [place] 00 A DAY Medical NEEDED FOR Branch PAIN APPLY 2 GRAMS DO NOT EXCEED 4 GRAMS IN A DAY DICLOFENAC 2020-0 Yes [id number] APPLY TO [facility] SODIUM 1 % 5-26 05 AFFECTED ity o f gel 00:00: AREA TWICE [place] 00 A DAY Medical NEEDED FOR Branch PAIN APPLY 2 GRAMS DO NOT EXCEED 4 GRAMS IN A DAY DICLOFENAC 2020-0 Yes [id number] APPLY TO [facility] SODIUM 1 % 5-26 05 AFFECTED ity o f gel 00:00: AREA TWICE [place] 00 A DAY Medical NEEDED FOR Branch PAIN APPLY 2 GRAMS DO NOT EXCEED 4 GRAMS IN A DAY DICLOFENAC 2020-0 Yes [id number] APPLY TO [facility] SODIUM 1 % 5-26 05 AFFECTED ity o f gel 00:00: AREA TWICE [place] 00 A DAY Medical NEEDED FOR Branch PAIN APPLY 2 GRAMS DO NOT EXCEED 4 GRAMS IN A DAY DICLOFENAC 2020-0 Yes [id number] APPLY TO [facility] SODIUM 1 % 5-26 05 AFFECTED ity o f gel 00:00: AREA TWICE [place] 00 A DAY Medical NEEDED FOR Branch PAIN APPLY 2 GRAMS DO NOT EXCEED 4 GRAMS IN A DAY DICLOFENAC 2020-0 Yes [id number] APPLY TO [facility] SODIUM 1 % 5-26 05 AFFECTED ity o f gel 00:00: AREA TWICE [place] 00 A DAY Medical NEEDED FOR Branch PAIN APPLY 2 GRAMS DO NOT EXCEED 4 GRAMS IN A DAY DICLOFENAC 2020-0 Yes [id number] APPLY TO [facility] SODIUM 1 % 5-26 05 AFFECTED ity o f gel 00:00: AREA TWICE [place] 00 A DAY Medical NEEDED FOR Branch PAIN APPLY 2 GRAMS DO NOT EXCEED 4 GRAMS IN A DAY DICLOFENAC 2020-0 Yes [id number] APPLY TO [facility] SODIUM 1 % 5-26 05 AFFECTED ity o f gel 00:00: AREA TWICE [place] 00 A DAY Medical NEEDED FOR Branch PAIN APPLY 2 GRAMS DO NOT EXCEED 4 GRAMS IN A DAY DICLOFENAC 2020-0 Yes [id number] APPLY TO Univers SODIUM 1 % 5-26 05 AFFECTED ity o f gel 00:00: AREA TWICE [place] 00 A DAY Medical NEEDED FOR Branch PAIN APPLY 2 GRAMS DO NOT EXCEED 4 GRAMS IN A DAY DICLOFENAC 2020-0 Yes [id number] APPLY TO Univers SODIUM 1 % 5-26 05 AFFECTED ity o f gel 00:00: AREA TWICE [place] 00 A DAY Medical NEEDED FOR Branch PAIN APPLY 2 GRAMS DO NOT EXCEED 4 GRAMS IN A DAY DICLOFENAC 2020-0 Yes [id number] APPLY TO Univers SODIUM 1 % 5-26 05 AFFECTED ity o f gel 00:00: AREA TWICE [place] 00 A DAY Medical NEEDED FOR Branch PAIN APPLY 2 GRAMS DO NOT EXCEED 4 GRAMS IN A DAY DICLOFENAC 2020-0 Yes [id number] APPLY TO Univers SODIUM 1 % 5-26 05 AFFECTED ity o f gel 00:00: AREA TWICE [place] 00 A DAY Medical NEEDED FOR Branch PAIN APPLY 2 GRAMS DO NOT EXCEED 4 GRAMS IN A DAY DICLOFENAC 2020-0 Yes [id number] APPLY TO Univers SODIUM 1 % 5-26 05 AFFECTED ity o f gel 00:00: AREA TWICE [place] 00 A DAY Medical NEEDED FOR Branch PAIN APPLY 2 GRAMS DO NOT EXCEED 4 GRAMS IN A DAY DICLOFENAC 2020-0 Yes [id number] APPLY TO [facility] SODIUM 1 % 5-26 05 AFFECTED ity o f gel 00:00: AREA TWICE [place] 00 A DAY Medical NEEDED FOR Branch PAIN APPLY 2 GRAMS DO NOT EXCEED 4 GRAMS IN A DAY DICLOFENAC 2020-0 Yes [id number] APPLY TO Univers SODIUM 1 % 5-26 05 AFFECTED ity o f gel 00:00: AREA TWICE [place] 00 A DAY Medical NEEDED FOR Branch PAIN APPLY 2 GRAMS DO NOT EXCEED 4 GRAMS IN A DAY DICLOFENAC 2020-0 Yes [id number] APPLY TO [facility] SODIUM 1 % 5-26 05 AFFECTED ity o f gel 00:00: AREA TWICE [place] 00 A DAY Medical NEEDED FOR Branch PAIN APPLY 2 GRAMS DO NOT EXCEED 4 GRAMS IN A DAY DICLOFENAC 2020-0 Yes [id number] APPLY TO [facility] SODIUM 1 % 03-17 05 AFFECTED ity o f gel 00:00: AREA TWICE [place] 00 A DAY Medical NEEDED FOR Branch PAIN APPLY 2 GRAMS DO NOT EXCEED 4 GRAMS IN A DAY DICLOFENAC 2020-0 Yes [id number] APPLY TO [facility] SODIUM 1 % 03-17 05 AFFECTED ity o f gel 00:00: AREA TWICE [place] 00 A DAY Medical NEEDED FOR Branch PAIN APPLY 2 GRAMS DO NOT EXCEED 4 GRAMS IN A DAY DICLOFENAC 2020-0 2020- No [id number] APPLY TO [facility] SODIUM 1 % 5-26 09-21 05 AFFECTED ity of gel 00:00: 00:00 AREA TWICE [place] 00 :00 A DAY Medical NEEDED FOR Branch PAIN APPLY 2 GRAMS DO NOT EXCEED 4 GRAMS IN A DAY albuterol 2020-0 Yes 1 NEBULE [facility] ers 2.5 mg /3 5-13 PER ity of mL (0.083 00:00: NEBULIZER [place] as %) 00 EVERY 8 Medical nebulizer HOURS Branch solution NEEDED albuterol 2020-0 Yes 1 NEBULE [facility] ers 2.5 mg /3 5-13 PER ity of mL (0.083 00:00: NEBULIZER [place] %) 00 EVERY 8 Medical nebulizer HOURS Branch solution NEEDED albuterol 2020-0 Yes 1 NEBULE [facility] ers 2.5 mg /3 5-13 PER ity of mL (0.083 00:00: NEBULIZER [place] %) 00 EVERY 8 Medical nebulizer HOURS Branch solution NEEDED albuterol 2020-0 Yes 1 NEBULE [facility] ers 2.5 mg /3 5-13 PER ity of mL (0.083 00:00: NEBULIZER [place] %) 00 EVERY 8 Medical nebulizer HOURS Branch solution NEEDED albuterol 2020-0 Yes 1 NEBULE [facility] ers 2.5 mg /3 5-13 PER ity of mL (0.083 00:00: NEBULIZER [place] %) 00 EVERY 8 Medical nebulizer HOURS Branch solution NEEDED albuterol 2020-0 Yes 1 NEBULE [facility] ers 2.5 mg /3 5-13 PER ity of mL (0.083 00:00: NEBULIZER [place] %) 00 EVERY 8 Medical nebulizer HOURS Branch solution NEEDED albuterol 2020-0 Yes 1 NEBULE [facility] ers 2.5 mg /3 5-13 PER ity of mL (0.083 00:00: NEBULIZER [place] %) 00 EVERY 8 Medical nebulizer HOURS Branch solution NEEDED albuterol 2020-0 Yes 1 NEBULE [facility] ers 2.5 mg /3 5-13 PER ity of mL (0.083 00:00: NEBULIZER [place] %) 00 EVERY 8 Medical nebulizer HOURS Branch solution NEEDED albuterol 2020-0 Yes 1 NEBULE [facility] ers 2.5 mg /3 5-13 PER ity of mL (0.083 00:00: NEBULIZER [place] %) 00 EVERY 8 Medical nebulizer HOURS Branch solution NEEDED albuterol 2020-0 Yes 1 NEBULE [facility] ers 2.5 mg /3 5-13 PER ity of mL (0.083 00:00: NEBULIZER [place] %) 00 EVERY 8 Medical nebulizer HOURS Branch solution NEEDED albuterol 2020-0 Yes 1 NEBULE [facility] ers 2.5 mg /3 5-13 PER ity of mL (0.083 00:00: NEBULIZER [place] %) 00 EVERY 8 Medical nebulizer HOURS Branch solution NEEDED albuterol 2020-0 Yes 1 NEBULE [facility] ers 2.5 mg /3 5-13 PER ity of mL (0.083 00:00: NEBULIZER [place] %) 00 EVERY 8 Medical nebulizer HOURS Branch solution NEEDED albuterol 2020-0 Yes 1 NEBULE [facility] ers 2.5 mg /3 5-13 PER ity of mL (0.083 00:00: NEBULIZER [place] as %) 00 EVERY 8 Medical nebulizer HOURS Branch solution NEEDED albuterol 2020-0 Yes 1 NEBULE [facility] ers 2.5 mg /3 5-13 PER ity of mL (0.083 00:00: NEBULIZER [place] as %) 00 EVERY 8 Medical nebulizer HOURS Branch solution NEEDED albuterol 2020-0 Yes 1 NEBULE [facility] ers 2.5 mg /3 5-13 PER ity of mL (0.083 00:00: NEBULIZER [place] as %) 00 EVERY 8 Medical nebulizer HOURS Branch solution NEEDED albuterol 2020-0 Yes 1 NEBULE [facility] ers 2.5 mg /3 5-13 PER ity of mL (0.083 00:00: NEBULIZER [place] as %) 00 EVERY 8 Medical nebulizer HOURS Branch solution NEEDED albuterol 2020-0 Yes 1 NEBULE [facility] ers 2.5 mg /3 5-13 PER ity of mL (0.083 00:00: NEBULIZER [place] as %) 00 EVERY 8 Medical nebulizer HOURS Branch solution NEEDED albuterol 2020-0 Yes 1 NEBULE [facility] ers 2.5 mg /3 5-13 PER ity of mL (0.083 00:00: NEBULIZER [place] as %) 00 EVERY 8 Medical nebulizer HOURS Branch solution NEEDED albuterol 2020-0 Yes 1 NEBULE [facility] ers 2.5 mg /3 5-13 PER ity of mL (0.083 00:00: NEBULIZER [place] as %) 00 EVERY 8 Medical nebulizer HOURS Branch solution NEEDED albuterol 2020-0 Yes 1 NEBULE [facility] ers 2.5 mg /3 5-13 PER ity of mL (0.083 00:00: NEBULIZER [place] as %) 00 EVERY 8 Medical nebulizer HOURS Branch solution NEEDED albuterol 2020-0 Yes 1 NEBULE [facility] ers 2.5 mg /3 5-13 PER ity of mL (0.083 00:00: NEBULIZER [place] as %) 00 EVERY 8 Medical nebulizer HOURS Branch solution NEEDED albuterol 2020-0 Yes 1 [facility] 2.5 mg /3 5-13 PER ity of mL (0.083 00:00: NEBULIZER [place] as %) 00 EVERY 8 Medical nebulizer HOURS Branch solution NEEDED albuterol 2020-0 Yes 1 [facility] 2.5 mg /3 5-13 PER ity of mL (0.083 00:00: NEBULIZER [place] as %) 00 EVERY 8 Medical nebulizer HOURS Branch solution NEEDED albuterol 2020-0 Yes 1 [facility] 2.5 mg /3 5-13 PER ity of mL (0.083 00:00: NEBULIZER [place] as %) 00 EVERY 8 Medical nebulizer HOURS Branch solution NEEDED albuterol 2020-0 Yes 1 [facility] 2.5 mg /3 5-13 PER ity of mL (0.083 00:00: NEBULIZER [place] as %) 00 EVERY 8 Medical nebulizer HOURS Branch solution NEEDED albuterol 2020-0 Yes 1 [facility] 2.5 mg /3 5-13 PER ity of mL (0.083 00:00: NEBULIZER [place] [facility] %) 00 EVERY 8 Medical nebulizer HOURS Branch solution NEEDED albuterol 2020-0 Yes 1 [facility] 2.5 mg /3 5-13 PER ity of mL (0.083 00:00: NEBULIZER [place] as %) 00 EVERY 8 Medical nebulizer HOURS Branch solution NEEDED albuterol 2020-0 Yes 1 [facility] 2.5 mg /3 5-13 PER ity of mL (0.083 00:00: NEBULIZER [place] as %) 00 EVERY 8 Medical nebulizer HOURS Branch solution NEEDED albuterol 2020-0 Yes 1 [facility] 2.5 mg /3 5-13 PER ity of mL (0.083 00:00: NEBULIZER [place] as %) 00 EVERY 8 Medical nebulizer HOURS Branch solution NEEDED albuterol 2020-0 Yes 1 [facility] 2.5 mg /3 5-13 PER ity of mL (0.083 00:00: NEBULIZER [place] as %) 00 EVERY 8 Medical nebulizer HOURS Branch solution NEEDED albuterol 2020-0 Yes 1 [facility] 2.5 mg /3 5-13 PER ity of mL (0.083 00:00: NEBULIZER [place] as %) 00 EVERY 8 Medical nebulizer HOURS Branch solution NEEDED albuterol 2020-0 Yes 1 [facility] 2.5 mg /3 5-13 PER ity of mL (0.083 00:00: NEBULIZER [place] as %) 00 EVERY 8 Medical nebulizer HOURS Branch solution NEEDED DICLOFENAC 2020-0 Yes [id number] APPLY TO [facility] SODIUM 1 % 4-28 05 AFFECTED ity o f gel 00:00: AREA TWICE [place] 00 A DAY Medical NEEDED FOR Branch PAIN APPLY 2 GRAMS DO NOT EXCEED 4 GRAMS IN A DAY DICLOFENAC 2020-0 Yes [id number] APPLY TO [facility] SODIUM 1 % 4-28 05 AFFECTED ity o f gel 00:00: AREA TWICE [place] 00 A DAY Medical NEEDED FOR Branch PAIN APPLY 2 GRAMS DO NOT EXCEED 4 GRAMS IN A DAY DICLOFENAC 2020-0 Yes [id number] APPLY TO [facility] SODIUM 1 % 4-28 05 AFFECTED ity o f gel 00:00: AREA TWICE [place] 00 A DAY Medical NEEDED FOR Branch PAIN APPLY 2 GRAMS DO NOT EXCEED 4 GRAMS IN A DAY DICLOFENAC 2020- No [id number] APPLY TO [facility] SODIUM 1 % - 05-26 05 AFFECTED ity of gel 00:00: 00:00 AREA TWICE [place] 00 :00 A DAY Medical NEEDED FOR Branch PAIN APPLY 2 GRAMS DO NOT EXCEED 4 GRAMS IN A DAY DICLOFENAC Yes [id number] APPLY TO [facility] SODIUM 1 % 4- 05 AFFECTED ity o f gel 00:00: AREA TWICE [place] 00 A DAY Medical NEEDED FOR Branch PAIN APPLY 2 GRAMS DO NOT EXCEED 4 GRAMS IN A DAY DICLOFENAC 2019- No [id number] APPLY TO [facility] SODIUM 1 % 4- 04-28 05 AFFECTED ity of gel 00:00: 00:00 AREA TWICE [place] 00 :00 A DAY Medical NEEDED FOR Branch PAIN APPLY 2 GRAMS DO NOT EXCEED 4 GRAMS IN A DAY Diclofenac Yes [id number] Apply to [facility] Sodium 1 % 3-11 05 area(s) 2 ity of gel 00:00: (two) [place] 00 times Medical daily as Branch needed for Pain (scale 4-6) (Apply 2 g do not exceed 4 g in a day). Diclofenac Yes [id number] Apply to [facility] Sodium 1 % 3-11 05 area(s) 2 ity of gel 00:00: (two) [place] 00 times Medical daily as Branch needed for Pain (scale 4-6) (Apply 2 g do not exceed 4 g in a day). Diclofenac Yes [id number] Apply to [facility] Sodium 1 % 3-11 05 area(s) 2 ity of gel 00:00: (two) [place] 00 times Medical daily as Branch needed for Pain (scale 4-6) (Apply 2 g do not exceed 4 g in a day). Diclofenac Yes [id number] Apply to [facility] Sodium 1 % 3-11 05 area(s) 2 ity of gel 00:00: (two) [place] 00 times Medical daily as Branch needed for Pain (scale 4-6) (Apply 2 g do not exceed 4 g in a day). Diclofenac Yes [id number] Apply to [facility] Sodium 1 % 3-11 05 area(s) 2 ity of gel 00:00: (two) [place] 00 times Medical daily as Branch needed for Pain (scale 4-6) (Apply 2 g do not exceed 4 g in a day). Diclofenac 2020-0 Yes [id number] Apply to [facility] Sodium 1 % 3-11 05 area(s) 2 ity of gel 00:00: (two) [place] 00 times Medical daily as Branch needed for Pain (scale 4-6) (Apply 2 g do not exceed 4 g in a day). Diclofenac 2020-0 Yes [id number] Apply to [facility] Sodium 1 % 3-11 05 area(s) 2 ity of gel 00:00: (two) [place] 00 times Medical daily as Branch needed for Pain (scale 4-6) (Apply 2 g do not exceed 4 g in a day). Diclofenac 2020-0 Yes [id number] Apply to [facility] Sodium 1 % 3-11 05 area(s) 2 ity of gel 00:00: (two) [place] 00 times Medical daily as Branch needed for Pain (scale 4-6) (Apply 2 g do not exceed 4 g in a day). Diclofenac 2020-0 2020- No [id number] Apply to [facility] Sodium 1 % 3-11 04-03 05 area(s) 2 ity of gel 00:00: 00:00 (two) [place] 00 :00 times Medical daily as Branch needed for Pain (scale 4-6) (Apply 2 g do not exceed 4 g in a day). verapamil 2020-0 Yes 120mg Take 120 Uni vers (VERELAN 2-20 mg by ity of PM) 120 mg 19:22: mouth at [place] as 24 hr 26 bedtime. Medical capsule Branch metFORMIN 2020-0 Yes 500mg Take 500 [facility] vers 500 mg 2-20 mg by ity of tablet 19:22: mouth [place] (two) Medical times Branch daily with meals. rOPINIRole 2020-0 Yes 2mg Take 2 mg [facility] [place] 2 mg tablet 2-20 by mouth ity of 19:22: at [place] [address] bedtime. Medical Branch venlafaxine 2020-0 Yes 150mg Take 150 U nivers XR 150 mg 2-20 mg by ity of 24 hr 19:22: mouth [place] daily with Medica l breakfast. Branch clonazePAM 2020-0 Yes .5mg Take 0.5 [facility] vers 0.5 mg 2-20 mg by ity of tablet 19:22: mouth at [place] [address] bedtime. Medical Branch pantoprazol 2020-0 Yes 40mg Take 40 mg [facility] e 40 mg EC 2-20 by mouth ity o f tablet 19:22: daily. [place] [address] Medical Branch amitriptyli 2020-0 Yes 75mg Take 75 mg [facility] ne 75 mg 2-20 by mouth ity of tablet 19:22: at [place] [address] bedtime. Medical Branch verapamil 2020-0 Yes 120mg Take 120 Uni vers (VERELAN 2-20 mg by ity of PM) 120 mg 19:22: mouth at [place] 24 hr 26 bedtime. Medical capsule Branch metFORMIN 2020-0 Yes 500mg Take 500 [facility] vers 500 mg 2-20 mg by ity of tablet 19:22: mouth 2 [place] [address] (two) Medical times Branch daily with meals. rOPINIRole 2020-0 Yes 2mg Take 2 mg [facility] [place] 2 mg tablet 2-20 by mouth ity of 19:22: at [place] [address] bedtime. Medical Branch venlafaxine 2020-0 Yes 150mg Take 150 U nivers XR 150 mg 2-20 mg by ity of 24 hr 19:22: mouth [place] [address] daily with Medica l breakfast. Branch clonazePAM 2020-0 Yes .5mg Take 0.5 Uni vers 0.5 mg 2-20 mg by ity of tablet 19:22: mouth at [place] [address] bedtime. Medical Branch pantoprazol 2020-0 Yes 40mg Take 40 mg [facility] e 40 mg EC 2-20 by mouth ity o f tablet 19:22: daily. [place] [address] Medical Branch amitriptyli 2020-0 Yes 75mg Take 75 mg [facility] ne 75 mg 2-20 by mouth ity of tablet 19:22: at [place] [address] bedtime. Medical Branch verapamil 2020-0 Yes 120mg Take 120 [facility] vers (VERELAN 2-20 mg by ity of PM) 120 mg 19:22: mouth at [place] 24 hr 26 bedtime. Medical capsule Branch metFORMIN 2020-0 Yes 500mg Take 500 [facility] vers 500 mg 2-20 mg by ity of tablet 19:22: mouth 2 [place] [address] (two) Medical times Branch daily with meals. rOPINIRole 2020-0 Yes 2mg Take 2 mg [facility] [place] 2 mg tablet 2-20 by mouth ity of 19:22: at [place] [address] bedtime. Medical Branch venlafaxine 2020-0 Yes 150mg Take 150 U nivers XR 150 mg 2-20 mg by ity of 24 hr 19:22: mouth [place] capsule daily with Medica l breakfast. Branch clonazePAM 2020-0 Yes .5mg Take 0.5 Uni vers 0.5 mg 2-20 mg by ity of tablet 19:22: mouth at [place] [address] bedtime. Medical Branch pantoprazol 2020-0 Yes 40mg Take 40 mg [facility] e 40 mg EC 2-20 by mouth ity o f tablet 19:22: daily. [place] [address] Medical Branch amitriptyli 2020-0 Yes 75mg Take 75 mg [facility] ne 75 mg 2-20 by mouth ity of tablet 19:22: at [place] [address] bedtime. Medical Branch verapamil 2020-0 Yes 120mg Take 120 [facility] vers (VERELAN 2-20 mg by ity of PM) 120 mg 19:22: mouth at [place] 24 hr 26 bedtime. Medical capsule Branch metFORMIN 2020-0 Yes 500mg Take 500 [facility] vers 500 mg 2-20 mg by ity of tablet 19:22: mouth 2 [place] [address] (two) Medical times Branch daily with meals. rOPINIRole 2020-0 Yes 2mg Take 2 mg [facility] [place] 2 mg tablet 2-20 by mouth ity of 19:22: at [place] [address] bedtime. Medical Branch venlafaxine 2020-0 Yes 150mg Take 150 U nivers XR 150 mg 2-20 mg by ity of 24 hr 19:22: mouth [place] capsule daily with Medica l breakfast. Branch clonazePAM 2020-0 Yes .5mg Take 0.5 [facility] vers 0.5 mg 2-20 mg by ity of tablet 19:22: mouth at [place] [address] bedtime. Medical Branch pantoprazol 2020-0 Yes 40mg Take 40 mg [facility] e 40 mg EC 2-20 by mouth ity o f tablet 19:22: daily. [place] [address] Medical Branch amitriptyli 2020-0 Yes 75mg Take 75 mg [facility] ne 75 mg 2-20 by mouth ity of tablet 19:22: at [place] [address] bedtime. Medical Branch verapamil 2020-0 Yes 120mg Take 120 [facility] vers (VERELAN 2-20 mg by ity of PM) 120 mg 19:22: mouth at [place] as 24 hr 26 bedtime. Medical capsule Branch metFORMIN 2020-0 Yes 500mg Take 500 [facility] vers 500 mg 2-20 mg by ity of tablet 19:22: mouth 2 [place] [address] (two) Medical times Branch daily with meals. rOPINIRole 2020-0 Yes 2mg Take 2 mg [facility] [place] 2 mg tablet 2-20 by mouth ity of 19:22: at [place] [address] bedtime. Medical Branch venlafaxine 2020-0 Yes 150mg Take 150 U nivers XR 150 mg 2-20 mg by ity of 24 hr 19:22: mouth [place] [address] daily with Medica l breakfast. Branch clonazePAM 2020-0 Yes .5mg Take 0.5 Uni vers 0.5 mg 2-20 mg by ity of tablet 19:22: mouth at [place] [address] bedtime. Medical Branch pantoprazol 2020-0 Yes 40mg Take 40 mg [facility] e 40 mg EC 2-20 by mouth ity o f tablet 19:22: daily. [place] [address] Medical Branch amitriptyli 2020-0 Yes 75mg Take 75 mg [facility] ne 75 mg 2-20 by mouth ity of tablet 19:22: at [place] [address] bedtime. Medical Branch verapamil 2020-0 Yes 120mg Take 120 [facility] vers (VERELAN 2-20 mg by ity of PM) 120 mg 19:22: mouth at [facility] as 24 hr 26 bedtime. Medical capsule Branch metFORMIN 2020-0 Yes 500mg Take 500 [facility] vers 500 mg 2-20 mg by ity of tablet 19:22: mouth 2 [place] [address] (two) Medical times Branch daily with meals. rOPINIRole 2020-0 Yes 2mg Take 2 mg [facility] [place] 2 mg tablet 2-20 by mouth ity of 19:22: at [place] [address] bedtime. Medical Branch venlafaxine 2020-0 Yes 150mg Take 150 U nivers XR 150 mg 2-20 mg by ity of 24 hr 19:22: mouth [place] [address] daily with Medica l breakfast. Branch clonazePAM 2020-0 Yes .5mg Take 0.5 Uni vers 0.5 mg 2-20 mg by ity of tablet 19:22: mouth at [place] [address] bedtime. Medical Branch pantoprazol 2020-0 Yes 40mg Take 40 mg [facility] e 40 mg EC 2-20 by mouth ity o f tablet 19:22: daily. [place] [address] Medical Branch amitriptyli 2020-0 Yes 75mg Take 75 mg [facility] ne 75 mg 2-20 by mouth ity of tablet 19:22: at [place] [address] bedtime. Medical Branch verapamil 2020-0 Yes 120mg Take 120 [facility] vers (VERELAN 2-20 mg by ity of PM) 120 mg 19:22: mouth at [place] as 24 hr 26 bedtime. Medical capsule Branch metFORMIN 2020-0 Yes 500mg Take 500 [facility] vers 500 mg 2-20 mg by ity of tablet 19:22: mouth 2 [place] [address] (two) Medical times Branch daily with meals. rOPINIRole 2020-0 Yes 2mg Take 2 mg [facility] [place] 2 mg tablet 2-20 by mouth ity of 19:22: at [place] [address] bedtime. Medical Branch venlafaxine 2020-0 Yes 150mg Take 150 U nivers XR 150 mg 2-20 mg by ity of 24 hr 19:22: mouth [place] capsule daily with Medica l breakfast. Branch clonazePAM 2020-0 Yes .5mg Take 0.5 Uni vers 0.5 mg 2-20 mg by ity of tablet 19:22: mouth at [place] [address] bedtime. Medical Branch pantoprazol 2020-0 Yes 40mg Take 40 mg [facility] e 40 mg EC 2-20 by mouth ity o f tablet 19:22: daily. [place] [address] Medical Branch amitriptyli 2020-0 Yes 75mg Take 75 mg [facility] ne 75 mg 2-20 by mouth ity of tablet 19:22: at [place] [address] bedtime. Medical Branch verapamil 2020-0 Yes 120mg Take 120 Uni vers (VERELAN 2-20 mg by ity of PM) 120 mg 19:22: mouth at [place] as 24 hr 26 bedtime. Medical capsule Branch metFORMIN 2020-0 Yes 500mg Take 500 [facility] vers 500 mg 2-20 mg by ity of tablet 19:22: mouth 2 [place] [address] (two) Medical times [place] daily with meals. rOPINIRole 2020-0 Yes 2mg Take 2 mg [facility] [place] 2 mg tablet 2-20 by mouth ity of 19:22: at [place] [address] bedtime. Medical Branch venlafaxine 2020-0 Yes 150mg Take 150 U nivers XR 150 mg 2-20 mg by ity of 24 hr 19:22: mouth [place] capsule daily with Medica l breakfast. Branch clonazePAM 2020-0 Yes .5mg Take 0.5 [facility] vers 0.5 mg 2-20 mg by ity of tablet 19:22: mouth at [place] [address] bedtime. Medical Branch pantoprazol 2020-0 Yes 40mg Take 40 mg [facility] e 40 mg EC 2-20 by mouth ity o f tablet 19:22: daily. [place] [address] Medical Branch amitriptyli 2020-0 Yes 75mg Take 75 mg [facility] ne 75 mg 2-20 by mouth ity of tablet 19:22: at [place] [address] bedtime. Medical Branch verapamil 2020-0 Yes 120mg Take 120 Uni vers (VERELAN 2-20 mg by ity of PM) 120 mg 19:22: mouth at [facility] as 24 hr 26 bedtime. Medical capsule Branch metFORMIN 2020-0 Yes 500mg Take 500 [facility] vers 500 mg 2-20 mg by ity of tablet 19:22: mouth 2 [place] [address] (two) Medical times Branch daily with meals. rOPINIRole 2020-0 Yes 2mg Take 2 mg [facility] [place] 2 mg tablet 2-20 by mouth ity of 19:22: at [place] [address] bedtime. Medical Branch venlafaxine 2020-0 Yes 150mg Take 150 U nivers XR 150 mg 2-20 mg by ity of 24 hr 19:22: mouth [place] [address] daily with Medica l breakfast. Branch clonazePAM 2020-0 Yes .5mg Take 0.5 Uni vers 0.5 mg 2-20 mg by ity of tablet 19:22: mouth at [place] [address] bedtime. Medical Branch pantoprazol 2020-0 Yes 40mg Take 40 mg [facility] e 40 mg EC 2-20 by mouth ity o f tablet 19:22: daily. [place] [address] Medical Branch amitriptyli 2020-0 Yes 75mg Take 75 mg [facility] ne 75 mg 2-20 by mouth ity of tablet 19:22: at [place] [address] bedtime. Medical Branch clonazePAM 2020-0 Yes .5mg Take 0.5 Uni vers 0.5 mg 2-20 mg by ity of tablet 19:22: mouth at [place] [address] bedtime. Medical Branch clonazePAM 2020-0 Yes .5mg Take 0.5 Uni vers 0.5 mg 2-20 mg by ity of tablet 19:22: mouth at [place] [address] bedtime. Medical Branch clonazePAM 2020-0 Yes .5mg Take 0.5 Uni vers 0.5 mg 2-20 mg by ity of tablet 19:22: mouth at [place] [address] bedtime. Medical Branch clonazePAM 2020-0 Yes .5mg Take 0.5 Uni vers 0.5 mg 2-20 mg by ity of tablet 19:22: mouth at [place] [address] bedtime. Medical Branch clonazePAM 2020-0 Yes .5mg Take 0.5 [facility] vers 0.5 mg 2-20 mg by ity of tablet 19:22: mouth at [place] [address] bedtime. Medical Branch clonazePAM 2020-0 Yes .5mg Take 0.5 Uni vers 0.5 mg 2-20 mg by ity of tablet 19:22: mouth at [place] [address] bedtime. Medical Branch clonazePAM 2020-0 Yes .5mg Take 0.5 Uni vers 0.5 mg 2-20 mg by ity of tablet 19:22: mouth at [place] [address] bedtime. Medical Branch clonazePAM 2020-0 Yes .5mg Take 0.5 Uni vers 0.5 mg 2-20 mg by ity of tablet 19:22: mouth at [place] [address] bedtime. Medical Branch clonazePAM 2020-0 Yes .5mg Take 0.5 Uni vers 0.5 mg 2-20 mg by ity of tablet 19:22: mouth at [place] [address] bedtime. Medical Branch clonazePAM 2020-0 Yes .5mg Take 0.5 Uni vers 0.5 mg 2-20 mg by ity of tablet 19:22: mouth at [place] [address] bedtime. Medical Branch clonazePAM 2020-0 Yes .5mg Take 0.5 Uni vers 0.5 mg 2-20 mg by ity of tablet 19:22: mouth at [place] [address] bedtime. Medical Branch clonazePAM 2020-0 Yes .5mg Take 0.5 Uni vers 0.5 mg 2-20 mg by ity of tablet 19:22: mouth at [place] [address] bedtime. Medical Branch clonazePAM 2020-0 Yes .5mg Take 0.5 Uni vers 0.5 mg 2-20 mg by ity of tablet 19:22: mouth at [place] [address] bedtime. Medical Branch clonazePAM 2020-0 Yes .5mg Take 0.5 Uni vers 0.5 mg 2-20 mg by ity of tablet 19:22: mouth at [place] [address] bedtime. Medical Branch clonazePAM 2020-0 Yes .5mg Take 0.5 Uni vers 0.5 mg 2-20 mg by ity of tablet 19:22: mouth at [place] [address] bedtime. Medical Branch clonazePAM 2020-0 Yes .5mg Take 0.5 Uni vers 0.5 mg 2-20 mg by ity of tablet 19:22: mouth at [place] [address] bedtime. Medical Branch clonazePAM 2020-0 Yes .5mg Take 0.5 Uni vers 0.5 mg 2-20 mg by ity of tablet 19:22: mouth at [place] [address] bedtime. Medical Branch clonazePAM 2020-0 Yes .5mg Take 0.5 Uni vers 0.5 mg 2-20 mg by ity of tablet 19:22: mouth at [place] [address] bedtime. Medical Branch clonazePAM 2020-0 Yes .5mg Take 0.5 Uni vers 0.5 mg 2-20 mg by ity of tablet 19:22: mouth at [place] [address] bedtime. Medical Branch clonazePAM 2020-0 Yes .5mg Take 0.5 Uni vers 0.5 mg 2-20 mg by ity of tablet 19:22: mouth at [place] [address] bedtime. Medical Branch clonazePAM 2020-0 Yes .5mg Take 0.5 Uni vers 0.5 mg 2-20 mg by ity of tablet 19:22: mouth at [place] [address] bedtime. Medical Branch clonazePAM 2020-0 Yes .5mg Take 0.5 Uni vers 0.5 mg 2-20 mg by ity of tablet 19:22: mouth at [place] [address] bedtime. Medical Branch clonazePAM 2020-0 Yes .5mg Take 0.5 Uni vers 0.5 mg 2-20 mg by ity of tablet 19:22: mouth at [place] [address] bedtime. Medical Branch verapamil 2020-0 Yes 120mg Take 120 Uni vers (VERELAN 2-20 mg by ity of PM) 120 mg 19:22: mouth at [place] as 24 hr 26 bedtime. Medical capsule Branch metFORMIN 2020-0 Yes 500mg Take 500 Uni vers 500 mg 2-20 mg by ity of tablet 19:22: mouth 2 26 (two) Medical times Branch daily with meals. rOPINIRole 2020-0 Yes 2mg Take 2 mg [place] 2 mg tablet 2-20 by mouth ity of 19:22: at [place] [address] bedtime. Medical Branch venlafaxine 2020-0 Yes 150mg Take 150 U nivers XR 150 mg 2-20 mg by ity of 24 hr 19:22: mouth [place] [address] daily with Medica l breakfast. Branch clonazePAM 2020-0 Yes .5mg Take 0.5 Uni vers 0.5 mg 2-20 mg by ity of tablet 19:22: mouth at [place] [address] bedtime. Medical Branch pantoprazol 2020-0 Yes 40mg Take 40 mg [facility] e 40 mg EC 2-20 by mouth ity o f tablet 19:22: daily. [place] [address] Medical Branch amitriptyli 2020-0 Yes 75mg Take 75 mg [facility] ne 75 mg 2-20 by mouth ity of tablet 19:22: at [place] [address] bedtime. Medical Branch verapamil 2020-0 Yes 120mg Take 120 Uni vers (VERELAN 2-20 mg by ity of PM) 120 mg 19:22: mouth at [place] as 24 hr 26 bedtime. Medical capsule Branch metFORMIN 2020-0 Yes 500mg Take 500 Uni vers 500 mg 2-20 mg by ity of tablet 19:22: mouth 2 [place] [address] (two) Medical times Branch daily with meals. rOPINIRole 2020-0 Yes 2mg Take 2 mg [place] 2 mg tablet 2-20 by mouth ity of 19:22: at [place] [address] bedtime. Medical Branch venlafaxine 2020-0 Yes 150mg Take 150 U nivers XR 150 mg 2-20 mg by ity of 24 hr 19:22: mouth [place] [address] daily with Medica l breakfast. Branch clonazePAM 2020-0 Yes .5mg Take 0.5 Uni vers 0.5 mg 2-20 mg by ity of tablet 19:22: mouth at [place] [address] bedtime. Medical Branch pantoprazol 2020-0 Yes 40mg Take 40 mg [facility] e 40 mg EC 2-20 by mouth ity o f tablet 19:22: daily. [place] [address] Medical Branch amitriptyli 2020-0 Yes 75mg Take 75 mg [facility] ne 75 mg 2-20 by mouth ity of tablet 19:22: at [place] [address] bedtime. Medical Branch verapamil 2020-0 Yes 120mg Take 120 Uni vers (VERELAN 2-20 mg by ity of PM) 120 mg 19:22: mouth at [place] as 24 hr 26 bedtime. Medical capsule Branch metFORMIN 2020-0 Yes 500mg Take 500 Uni vers 500 mg 2-20 mg by ity of tablet 19:22: mouth 2 [place] [address] (two) Medical times Branch daily with meals. rOPINIRole 2020-0 Yes 2mg Take 2 mg [place] 2 mg tablet 2-20 by mouth ity of 19:22: at [place] [address] bedtime. Medical Branch venlafaxine 2020-0 Yes 150mg Take 150 U nivers XR 150 mg 2-20 mg by ity of 24 hr 19:22: mouth [place] [address] daily with Medica l breakfast. Branch clonazePAM 2020-0 Yes .5mg Take 0.5 Uni vers 0.5 mg 2-20 mg by ity of tablet 19:22: mouth at [place] [address] bedtime. Medical Branch pantoprazol 2020-0 Yes 40mg Take 40 mg [facility] e 40 mg EC 2-20 by mouth ity o f tablet 19:22: daily. [place] [address] Medical Branch amitriptyli 2020-0 Yes 75mg Take 75 mg [facility] ne 75 mg 2-20 by mouth ity of tablet 19:22: at [place] [address] bedtime. Medical Branch verapamil 2020-0 Yes 120mg Take 120 Uni vers (VERELAN 2-20 mg by ity of PM) 120 mg 19:22: mouth at [place] as 24 hr bedtime. Medical capsule Branch metFORMIN 2020-0 Yes 500mg Take 500 Uni vers 500 mg 2-20 mg by ity of tablet 19:22: mouth 2 [place] [address] (two) Medical times Branch daily with meals. rOPINIRole 2020-0 Yes 2mg Take 2 mg [place] 2 mg tablet 2-20 by mouth ity of 19:22: at [place] [address] bedtime. Medical Branch venlafaxine 2020-0 Yes 150mg Take 150 U nivers XR 150 mg 2-20 mg by ity of 24 hr 19:22: mouth [place] [address] daily with Medica l breakfast. Branch clonazePAM 2020-0 Yes .5mg Take 0.5 Uni vers 0.5 mg 2-20 mg by ity of tablet 19:22: mouth at [place] [address] bedtime. Medical Branch pantoprazol 2020-0 Yes 40mg Take 40 mg [facility] e 40 mg EC 2-20 by mouth ity o f tablet 19:22: daily. [place] [address] Medical Branch amitriptyli 2020-0 Yes 75mg Take 75 mg [facility] ne 75 mg 2-20 by mouth ity of tablet 19:22: at [place] [address] bedtime. Medical Branch verapamil 2020-0 Yes 120mg Take 120 Uni vers (VERELAN 2-20 mg by ity of PM) 120 mg 19:22: mouth at [place] as 24 hr bedtime. Medical capsule Branch metFORMIN 2020-0 Yes 500mg Take 500 [facility] vers 500 mg 2-20 mg by ity of tablet 19:22: mouth 2 [place] [address] (two) Medical times Branch daily with meals. rOPINIRole 2020-0 Yes 2mg Take 2 mg [place] 2 mg tablet 2-20 by mouth ity of 19:22: at [place] [address] bedtime. Medical Branch venlafaxine 2020-0 Yes 150mg Take 150 U nivers XR 150 mg 2-20 mg by ity of 24 hr 19:22: mouth [place] [address] daily with Medica l breakfast. Branch clonazePAM 2020-0 Yes .5mg Take 0.5 Uni vers 0.5 mg 2-20 mg by ity of tablet 19:22: mouth at [place] [address] bedtime. Medical Branch pantoprazol 2020-0 Yes 40mg Take 40 mg [facility] e 40 mg EC 2-20 by mouth ity o f tablet 19:22: daily. [place] [address] Medical Branch amitriptyli 2020-0 Yes 75mg Take 75 mg [facility] ne 75 mg 2-20 by mouth ity of tablet 19:22: at [place] [address] bedtime. Medical Branch verapamil 2020-0 Yes 120mg Take 120 Uni vers (VERELAN 2-20 mg by ity of PM) 120 mg 19:22: mouth at [facility] as 24 hr bedtime. Medical capsule Branch metFORMIN 2020-0 Yes 500mg Take 500 Uni vers 500 mg 2-20 mg by ity of tablet 19:22: mouth 2 [place] [address] (two) Medical times Branch daily with meals. rOPINIRole 2020-0 Yes 2mg Take 2 mg [place] 2 mg tablet 2-20 by mouth ity of 19:22: at [place] [address] bedtime. Medical Branch venlafaxine 2020-0 Yes 150mg Take 150 U nivers XR 150 mg 2-20 mg by ity of 24 hr 19:22: mouth [place] [address] daily with Medica l breakfast. Branch clonazePAM 2020-0 Yes .5mg Take 0.5 Uni vers 0.5 mg 2-20 mg by ity of tablet 19:22: mouth at [place] [address] bedtime. Medical Branch pantoprazol 2020-0 Yes 40mg Take 40 mg [facility] e 40 mg EC 2-20 by mouth ity o f tablet 19:22: daily. [place] [address] Medical Branch amitriptyli 2020-0 Yes 75mg Take 75 mg [facility] ne 75 mg 2-20 by mouth ity of tablet 19:22: at [place] [address] bedtime. Medical Branch verapamil 2020-0 Yes 120mg Take 120 Uni vers (VERELAN 2-20 mg by ity of PM) 120 mg 19:22: mouth at [place] as 24 hr bedtime. Medical capsule Branch metFORMIN 2020-0 Yes 500mg Take 500 [facility] vers 500 mg 2-20 mg by ity of tablet 19:22: mouth 2 [place] [address] (two) Medical times Branch daily with meals. rOPINIRole 2020-0 Yes 2mg Take 2 mg [place] 2 mg tablet 2-20 by mouth ity of 19:22: at [place] [address] bedtime. Medical Branch venlafaxine 2020-0 Yes 150mg Take 150 U nivers XR 150 mg 2-20 mg by ity of 24 hr 19:22: mouth [place] [address] daily with Medica l breakfast. Branch clonazePAM 2020-0 Yes .5mg Take 0.5 Uni vers 0.5 mg 2-20 mg by ity of tablet 19:22: mouth at [place] [address] bedtime. Medical Branch pantoprazol 2020-0 Yes 40mg Take 40 mg [facility] e 40 mg EC 2-20 by mouth ity o f tablet 19:22: daily. [place] [address] Medical Branch amitriptyli 2020-0 Yes 75mg Take 75 mg [facility] ne 75 mg 2-20 by mouth ity of tablet 19:22: at [place] [address] bedtime. Medical Branch verapamil 2020-0 Yes 120mg Take 120 Uni vers (VERELAN 2-20 mg by ity of PM) 120 mg 19:22: mouth at [facility] as 24 hr 26 bedtime. Medical capsule Branch metFORMIN 2020-0 Yes 500mg Take 500 [facility] vers 500 mg 2-20 mg by ity of tablet 19:22: mouth 2 [place] [address] (two) Medical times Branch daily with meals. rOPINIRole 2020-0 Yes 2mg Take 2 mg [facility] [place] 2 mg tablet 2-20 by mouth ity of 19:22: at [place] [address] bedtime. Medical Branch venlafaxine 2020-0 Yes 150mg Take 150 U nivers XR 150 mg 2-20 mg by ity of 24 hr 19:22: mouth [place] [address] daily with Medica l breakfast. Branch clonazePAM 2020-0 Yes .5mg Take 0.5 Uni vers 0.5 mg 2-20 mg by ity of tablet 19:22: mouth at [place] [address] bedtime. Medical Branch pantoprazol 2020-0 Yes 40mg Take 40 mg [facility] e 40 mg EC 2-20 by mouth ity o f tablet 19:22: daily. [place] [address] Medical Branch amitriptyli 2020-0 Yes 75mg Take 75 mg [facility] ne 75 mg 2-20 by mouth ity of tablet 19:22: at [place] [address] bedtime. Medical Branch verapamil 2020-0 Yes 120mg Take 120 [facility] vers (VERELAN 2-20 mg by ity of PM) 120 mg 19:22: mouth at [place] as 24 hr 26 bedtime. Medical capsule Branch metFORMIN 2020-0 Yes 500mg Take 500 [facility] vers 500 mg 2-20 mg by ity of tablet 19:22: mouth 2 [place] [address] (two) Medical times [place] daily with meals. rOPINIRole 2020-0 Yes 2mg Take 2 mg [facility] [place] 2 mg tablet 2-20 by mouth ity of 19:22: at [place] [address] bedtime. Medical Branch venlafaxine 2020-0 Yes 150mg Take 150 U nivers XR 150 mg 2-20 mg by ity of 24 hr 19:22: mouth [place] [address] daily with Medica l breakfast. Branch clonazePAM 2020-0 Yes .5mg Take 0.5 Uni vers 0.5 mg 2-20 mg by ity of tablet 19:22: mouth at [place] [address] bedtime. Medical Branch pantoprazol 2020-0 Yes 40mg Take 40 mg [facility] e 40 mg EC 2-20 by mouth ity o f tablet 19:22: daily. [place] [address] Medical Branch amitriptyli 2020-0 Yes 75mg Take 75 mg [facility] ne 75 mg 2-20 by mouth ity of tablet 19:22: at [place] [address] bedtime. Medical Branch verapamil 2020-0 Yes 120mg Take 120 [facility] vers (VERELAN 2-20 mg by ity of PM) 120 mg 19:22: mouth at [facility] as 24 hr 26 bedtime. Medical capsule Branch metFORMIN 2020-0 Yes 500mg Take 500 [facility] vers 500 mg 2-20 mg by ity of tablet 19:22: mouth 2 [place] [address] (two) Medical times [place] daily with meals. rOPINIRole 2020-0 Yes 2mg Take 2 mg [facility] [place] 2 mg tablet 2-20 by mouth ity of 19:22: at [place] [address] bedtime. Medical Branch venlafaxine 2020-0 Yes 150mg Take 150 U nivers XR 150 mg 2-20 mg by ity of 24 hr 19:22: mouth [place] [address] daily with Medica l breakfast. Branch clonazePAM 2020-0 Yes .5mg Take 0.5 Uni vers 0.5 mg 2-20 mg by ity of tablet 19:22: mouth at [place] [address] bedtime. Medical Branch pantoprazol 2020-0 Yes 40mg Take 40 mg [facility] e 40 mg EC 2-20 by mouth ity o f tablet 19:22: daily. [place] [address] Medical Branch amitriptyli 2020-0 Yes 75mg Take 75 mg [facility] ne 75 mg 2-20 by mouth ity of tablet 19:22: at [place] [address] bedtime. Medical Branch verapamil 2020-0 Yes 120mg Take 120 [facility] vers (VERELAN 2-20 mg by ity of PM) 120 mg 19:22: mouth at [place] as 24 hr 26 bedtime. Medical capsule Branch metFORMIN 2020-0 Yes 500mg Take 500 [facility] vers 500 mg 2-20 mg by ity of tablet 19:22: mouth 2 [place] [address] (two) Medical times [place] daily with meals. rOPINIRole 2020-0 Yes 2mg Take 2 mg [facility] [place] 2 mg tablet 2-20 by mouth ity of 19:22: at [place] [address] bedtime. Medical Branch venlafaxine 2020-0 Yes 150mg Take 150 U nivers XR 150 mg 2-20 mg by ity of 24 hr 19:22: mouth [place] [address] daily with Medica l breakfast. Branch clonazePAM 2020-0 Yes .5mg Take 0.5 Uni vers 0.5 mg 2-20 mg by ity of tablet 19:22: mouth at [place] [address] bedtime. Medical Branch pantoprazol 2020-0 Yes 40mg Take 40 mg [facility] e 40 mg EC 2-20 by mouth ity o f tablet 19:22: daily. [place] [address] Medical Branch amitriptyli 2020-0 Yes 75mg Take 75 mg [facility] ne 75 mg 2-20 by mouth ity of tablet 19:22: at [place] [address] bedtime. Medical Branch verapamil 2020-0 Yes 120mg Take 120 [facility] vers (VERELAN 2-20 mg by ity of PM) 120 mg 19:22: mouth at [place] as 24 hr bedtime. Medical capsule Branch metFORMIN 2020-0 Yes 500mg Take 500 [facility] vers 500 mg 2-20 mg by ity of tablet 19:22: mouth 2 [place] [address] (two) Medical times [place] daily with meals. rOPINIRole 2020-0 Yes 2mg Take 2 mg [facility] [place] 2 mg tablet 2-20 by mouth ity of 19:22: at [place] [address] bedtime. Medical Branch venlafaxine 2020-0 Yes 150mg Take 150 U nivers XR 150 mg 2-20 mg by ity of 24 hr 19:22: mouth [place] capsule daily with Medica l breakfast. Branch clonazePAM 2020-0 Yes .5mg Take 0.5 Uni vers 0.5 mg 2-20 mg by ity of tablet 19:22: mouth at [place] [address] bedtime. Medical Branch pantoprazol 2020-0 Yes 40mg Take 40 mg [facility] e 40 mg EC 2-20 by mouth ity o f tablet 19:22: daily. [place] [address] Medical Branch amitriptyli 2020-0 Yes 75mg Take 75 mg [facility] ne 75 mg 2-20 by mouth ity of tablet 19:22: at [place] [address] bedtime. Medical Branch verapamil 2020-0 Yes 120mg Take 120 Uni vers (VERELAN 2-20 mg by ity of PM) 120 mg 19:22: mouth at [place] as 24 hr 26 bedtime. Medical capsule Branch metFORMIN 2020-0 Yes 500mg Take 500 [facility] vers 500 mg 2-20 mg by ity of tablet 19:22: mouth [place] [address] (two) Medical times Branch daily with meals. rOPINIRole 2020-0 Yes 2mg Take 2 mg [facility] [place] 2 mg tablet 2-20 by mouth ity of 19:22: at [place] [address] bedtime. Medical Branch venlafaxine 2020-0 Yes 150mg Take 150 U nivers XR 150 mg 2-20 mg by ity of 24 hr 19:22: mouth [place] [address] daily with Medica l breakfast. Branch clonazePAM 2020-0 Yes .5mg Take 0.5 Uni vers 0.5 mg 2-20 mg by ity of tablet 19:22: mouth at [place] [address] bedtime. Medical Branch pantoprazol 2020-0 Yes 40mg Take 40 mg [facility] e 40 mg EC 2-20 by mouth ity o f tablet 19:22: daily. [place] [address] Medical Branch amitriptyli 2020-0 Yes 75mg Take 75 mg [facility] ne 75 mg 2-20 by mouth ity of tablet 19:22: at [place] [address] bedtime. Medical Branch verapamil 2020-0 Yes 120mg Take 120 Uni vers (VERELAN 2-20 mg by ity of PM) 120 mg 19:22: mouth at [place] as 24 hr 26 bedtime. Medical capsule Branch metFORMIN 2020-0 Yes 500mg Take 500 [facility] vers 500 mg 2-20 mg by ity of tablet 19:22: mouth 2 [place] [address] (two) Medical times Branch daily with meals. rOPINIRole 2020-0 Yes 2mg Take 2 mg [facility] [place] 2 mg tablet 2-20 by mouth ity of 19:22: at [place] [address] bedtime. Medical Branch venlafaxine 2020-0 Yes 150mg Take 150 U nivers XR 150 mg 2-20 mg by ity of 24 hr 19:22: mouth [place] capsule daily with Medica l breakfast. Branch clonazePAM 2020-0 Yes .5mg Take 0.5 Uni vers 0.5 mg 2-20 mg by ity of tablet 19:22: mouth at [place] [address] bedtime. Medical Branch pantoprazol 2020-0 Yes 40mg Take 40 mg [facility] e 40 mg EC 2-20 by mouth ity o f tablet 19:22: daily. [place] [address] Medical Branch amitriptyli 2020-0 Yes 75mg Take 75 mg [facility] ne 75 mg 2-20 by mouth ity of tablet 19:22: at [place] [address] bedtime. Medical Branch verapamil 2020-0 Yes 120mg Take 120 Uni vers (VERELAN 2-20 mg by ity of PM) 120 mg 19:22: mouth at [facility] as 24 hr bedtime. Medical capsule Branch metFORMIN 2020-0 Yes 500mg Take 500 [facility] vers 500 mg 2-20 mg by ity of tablet 19:22: mouth 2 [place] [address] (two) Medical times Branch daily with meals. rOPINIRole 2020-0 Yes 2mg Take 2 mg [facility] [place] 2 mg tablet 2-20 by mouth ity of 19:22: at [place] [address] bedtime. Medical Branch venlafaxine 2020-0 Yes 150mg Take 150 U nivers XR 150 mg 2-20 mg by ity of 24 hr 19:22: mouth [place] capsule daily with Medica l breakfast. Branch clonazePAM 2020-0 Yes .5mg Take 0.5 Uni vers 0.5 mg 2-20 mg by ity of tablet 19:22: mouth at [place] [address] bedtime. Medical Branch pantoprazol 2020-0 Yes 40mg Take 40 mg [facility] e 40 mg EC 2-20 by mouth ity o f tablet 19:22: daily. [place] [address] Medical Branch amitriptyli 2020-0 Yes 75mg Take 75 mg [facility] ne 75 mg 2-20 by mouth ity of tablet 19:22: at [place] [address] bedtime. Medical Branch verapamil 2020-0 Yes 120mg Take 120 [facility] vers (VERELAN 2-20 mg by ity of PM) 120 mg 19:22: mouth at [place] as 24 hr 26 bedtime. Medical capsule Branch metFORMIN 2020-0 Yes 500mg Take 500 [facility] vers 500 mg 2-20 mg by ity of tablet 19:22: mouth 2 [place] [address] (two) Medical times Branch daily with meals. rOPINIRole 2020-0 Yes 2mg Take 2 mg [facility] [place] 2 mg tablet 2-20 by mouth ity of 19:22: at [place] [address] bedtime. Medical Branch venlafaxine 2020-0 Yes 150mg Take 150 U nivers XR 150 mg 2-20 mg by ity of 24 hr 19:22: mouth [place] capsule daily with Medica l breakfast. Branch clonazePAM 2020-0 Yes .5mg Take 0.5 Uni vers 0.5 mg 2-20 mg by ity of tablet 19:22: mouth at [place] [address] bedtime. Medical Branch pantoprazol 2020-0 Yes 40mg Take 40 mg [facility] e 40 mg EC 2-20 by mouth ity o f tablet 19:22: daily. [place] [address] Medical Branch amitriptyli 2020-0 Yes 75mg Take 75 mg [facility] ne 75 mg 2-20 by mouth ity of tablet 19:22: at [place] [address] bedtime. Medical Branch verapamil 2020-0 Yes 120mg Take 120 Uni vers (VERELAN 2-20 mg by ity of PM) 120 mg 19:22: mouth at [place] as 24 hr 26 bedtime. Medical capsule Branch metFORMIN 2020-0 Yes 500mg Take 500 [facility] vers 500 mg 2-20 mg by ity of tablet 19:22: mouth 2 [place] [address] (two) Medical times Branch daily with meals. rOPINIRole 2020-0 Yes 2mg Take 2 mg [facility] [place] 2 mg tablet 2-20 by mouth ity of 19:22: at [place] [address] bedtime. Medical Branch venlafaxine 2020-0 Yes 150mg Take 150 U nivers XR 150 mg 2-20 mg by ity of 24 hr 19:22: mouth [place] capsule daily with Medica l breakfast. Branch clonazePAM 2020-0 Yes .5mg Take 0.5 Uni vers 0.5 mg 2-20 mg by ity of tablet 19:22: mouth at [place] [address] bedtime. Medical Branch pantoprazol 2020-0 Yes 40mg Take 40 mg [facility] e 40 mg EC 2-20 by mouth ity o f tablet 19:22: daily. [place] [address] Medical Branch amitriptyli 2020-0 Yes 75mg Take 75 mg [facility] ne 75 mg 2-20 by mouth ity of tablet 19:22: at [place] [address] bedtime. Medical Branch verapamil 2020-0 Yes 120mg Take 120 Uni vers (VERELAN 2-20 mg by ity of PM) 120 mg 19:22: mouth at [facility] as 24 hr 26 bedtime. Medical capsule Branch metFORMIN 2020-0 Yes 500mg Take 500 Uni vers 500 mg 2-20 mg by ity of tablet 19:22: mouth 2 [place] [address] (two) Medical times Branch daily with meals. rOPINIRole 2020-0 Yes 2mg Take 2 mg [facility] [place] 2 mg tablet 2-20 by mouth ity of 19:22: at [place] [address] bedtime. Medical Branch venlafaxine 2020-0 Yes 150mg Take 150 U nivers XR 150 mg 2-20 mg by ity of 24 hr 19:22: mouth [place] [address] daily with Medica l breakfast. Branch clonazePAM 2020-0 Yes .5mg Take 0.5 Uni vers 0.5 mg 2-20 mg by ity of tablet 19:22: mouth at [place] [address] bedtime. Medical Branch pantoprazol 2020-0 Yes 40mg Take 40 mg [facility] e 40 mg EC 2-20 by mouth ity o f tablet 19:22: daily. [place] [address] Medical Branch amitriptyli 2020-0 Yes 75mg Take 75 mg [facility] ne 75 mg 2-20 by mouth ity of tablet 19:22: at [place] [address] bedtime. Medical Branch verapamil 2020-0 Yes 120mg Take 120 Uni vers (VERELAN 2-20 mg by ity of PM) 120 mg 19:22: mouth at [place] as 24 hr 26 bedtime. Medical capsule Branch metFORMIN 2020-0 Yes 500mg Take 500 Uni vers 500 mg 2-20 mg by ity of tablet 19:22: mouth 2 [place] [address] (two) Medical times Branch daily with meals. rOPINIRole 2020-0 Yes 2mg Take 2 mg [facility] [place] 2 mg tablet 2-20 by mouth ity of 19:22: at [place] [address] bedtime. Medical Branch venlafaxine 2020-0 Yes 150mg Take 150 U nivers XR 150 mg 2-20 mg by ity of 24 hr 19:22: mouth [place] [address] daily with Medica l breakfast. Branch clonazePAM 2020-0 Yes .5mg Take 0.5 Uni vers 0.5 mg 2-20 mg by ity of tablet 19:22: mouth at [place] [address] bedtime. Medical Branch pantoprazol 2020-0 Yes 40mg Take 40 mg [facility] e 40 mg EC 2-20 by mouth ity o f tablet 19:22: daily. [place] [address] Medical Branch amitriptyli 2020-0 Yes 75mg Take 75 mg [facility] ne 75 mg 2-20 by mouth ity of tablet 19:22: at [place] [address] bedtime. Medical Branch clonazePAM 2020-0 Yes .5mg Take 0.5 Uni vers 0.5 mg 2-20 mg by ity of tablet 13:22: mouth at [place] [address] bedtime. Medical Branch clonazePAM 2020-0 Yes .5mg Take 0.5 Uni vers 0.5 mg 2-20 mg by ity of tablet 13:22: mouth at [place] [address] bedtime. Medical Branch clonazePAM 2020-0 Yes .5mg Take 0.5 Uni vers 0.5 mg 2-20 mg by ity of tablet 13:22: mouth at [place] [address] bedtime. Medical Branch clonazePAM 2020-0 Yes .5mg Take 0.5 Uni vers 0.5 mg 2-20 mg by ity of tablet 13:22: mouth at [place] [address] bedtime. Medical Branch clonazePAM 2020-0 Yes .5mg Take 0.5 Uni vers 0.5 mg 2-20 mg by ity of tablet 13:22: mouth at [place] [address] bedtime. Medical Branch clonazePAM 2020-0 Yes .5mg Take 0.5 Uni vers 0.5 mg 2-20 mg by ity of tablet 13:22: mouth at [place] [address] bedtime. Medical Branch clonazePAM 2020-0 Yes .5mg Take 0.5 Uni vers 0.5 mg 2-20 mg by ity of tablet 13:22: mouth at [place] [address] bedtime. Medical Branch clonazePAM 2020-0 Yes .5mg Take 0.5 Uni vers 0.5 mg 2-20 mg by ity of tablet 13:22: mouth at [place] [address] bedtime. Medical Branch clonazePAM 2020-0 Yes .5mg Take 0.5 Uni vers 0.5 mg 2-20 mg by ity of tablet 13:22: mouth at [place] [address] bedtime. Medical Branch verapamil 2020-0 Yes 120mg Take 120 Uni vers (VERELAN 2-19 mg by ity of PM) 120 mg 23:24: mouth at [place] as 24 hr 51 bedtime. Medical capsule Branch metFORMIN 2020-0 Yes 500mg Take 500 Uni vers 500 mg 2-19 mg by ity of tablet 23:24: mouth 2 [place] [address] (two) Medical times Branch daily with meals. rOPINIRole 2020-0 Yes 2mg Take 2 mg [facility] [place] 2 mg tablet 2-19 by mouth ity of 23:24: at [place] [address] bedtime. Medical Branch venlafaxine 2020-0 Yes 150mg Take 150 U nivers XR 150 mg 2-19 mg by ity of 24 hr 23:24: mouth [place] capsule daily with Medica l breakfast. Branch clonazePAM 2020-0 Yes .5mg Take 0.5 Uni vers 0.5 mg 2-19 mg by ity of tablet 23:24: mouth at [place] [address] bedtime. Medical Branch pantoprazol 2020-0 Yes 40mg Take 40 mg [facility] e 40 mg EC 2-19 by mouth ity o f tablet 23:24: daily. [place] [address] Medical Branch amitriptyli 2020-0 Yes 75mg Take 75 mg [facility] ne 75 mg 2-19 by mouth ity of tablet 23:24: at [place] [address] bedtime. Medical Branch acetaminoph 2020-0 Yes [id number] 2{tbl} Take 2 Univers en-codeine 2-19 05 tablets by ity of (TYLENOL-CO 00:00: mouth [place] DEINE #3) 00 every 4 Medical 300-30 mg (four) Branch tablet hours as needed for Pain (scale 4-6) or Pain (scale 7-10) (Maximum 10 tablets a day). acetaminoph 2020-0 Yes [id number] 2{tbl} Take 2 Univers en-codeine 2-19 05 tablets by ity of (TYLENOL-CO 00:00: mouth [place] DEINE #3) 00 every 4 Medical 300-30 mg (four) Branch tablet hours as needed for Pain (scale 4-6) or Pain (scale 7-10) (Maximum 10 tablets a day). acetaminoph 2020-0 Yes [id number] 2{tbl} Take 2 [facility] en-codeine 2-19 05 tablets by ity of (TYLENOL-CO 00:00: mouth [place] DEINE #3) 00 every 4 Medical 300-30 mg (four) Branch tablet hours as needed for Pain (scale 4-6) or Pain (scale 7-10) (Maximum 10 tablets a day). acetaminoph 2020-0 Yes [id number] 2{tbl} Take 2 [facility] en-codeine 2-19 05 tablets by ity of (TYLENOL-CO 00:00: mouth [place] DEINE #3) 00 every 4 Medical 300-30 mg (four) Branch tablet hours as needed for Pain (scale 4-6) or Pain (scale 7-10) (Maximum 10 tablets a day). acetaminoph 2020-0 Yes [id number] 2{tbl} Take 2 [facility] en-codeine 2-19 05 tablets by ity of (TYLENOL-CO 00:00: mouth [place] DEINE #3) 00 every 4 Medical 300-30 mg (four) Branch tablet hours as needed for Pain (scale 4-6) or Pain (scale 7-10) (Maximum 10 tablets a day). acetaminoph 2020-0 Yes [id number] 2{tbl} Take 2 [facility] en-codeine 2-19 05 tablets by ity of (TYLENOL-CO 00:00: mouth [place] DEINE #3) 00 every 4 Medical 300-30 mg (four) Branch tablet hours as needed for Pain (scale 4-6) or Pain (scale 7-10) (Maximum 10 tablets a day). acetaminoph 2020-0 Yes [id number] 2{tbl} Take 2 [facility] en-codeine 2-19 05 tablets by ity of (TYLENOL-CO 00:00: mouth [place] DEINE #3) 00 every 4 Medical 300-30 mg (four) Branch tablet hours as needed for Pain (scale 4-6) or Pain (scale 7-10) (Maximum 10 tablets a day). acetaminoph 2020-0 Yes [id number] 2{tbl} Take 2 [facility] en-codeine 2-19 05 tablets by ity of (TYLENOL-CO 00:00: mouth [place] DEINE #3) 00 every 4 Medical 300-30 mg (four) Branch tablet hours as needed for Pain (scale 4-6) or Pain (scale 7-10) (Maximum 10 tablets a day). acetaminoph 2020-0 Yes [id number] 2{tbl} Take 2 [facility] en-codeine 2-19 05 tablets by ity of (TYLENOL-CO 00:00: mouth [place] DEINE #3) 00 every 4 Medical 300-30 mg (four) Branch tablet hours as needed for Pain (scale 4-6) or Pain (scale 7-10) (Maximum 10 tablets a day). acetaminoph 2020-0 Yes [id number] 2{tbl} Take 2 [facility] en-codeine 2-19 05 tablets by ity of (TYLENOL-CO 00:00: mouth [place] DEINE #3) 00 every 4 Medical 300-30 mg (four) Branch tablet hours as needed for Pain (scale 4-6) or Pain (scale 7-10) (Maximum 10 tablets a day). acetaminoph 2020-0 Yes [id number] 2{tbl} Take 2 [facility] en-codeine 2-19 05 tablets by ity of (TYLENOL-CO 00:00: mouth [place] DEINE #3) 00 every 4 Medical 300-30 mg (four) Branch tablet hours as needed for Pain (scale 4-6) or Pain (scale 7-10) (Maximum 10 tablets a day). acetaminoph 2020-0 Yes [id number] 2{tbl} Take 2 [facility] en-codeine 2-19 05 tablets by ity of (TYLENOL-CO 00:00: mouth [place] DEINE #3) 00 every 4 Medical 300-30 mg (four) Branch tablet hours as needed for Pain (scale 4-6) or Pain (scale 7-10) (Maximum 10 tablets a day). acetaminoph 2020-0 Yes [id number] 2{tbl} Take 2 Univers en-codeine 2-19 05 tablets by ity of (TYLENOL-CO 00:00: mouth [place] DEINE #3) 00 every 4 Medical 300-30 mg (four) Branch tablet hours as needed for Pain (scale 4-6) or Pain (scale 7-10) (Maximum 10 tablets a day). acetaminoph 2020-0 Yes [id number] 2{tbl} Take 2 Univers en-codeine 2-19 05 tablets by ity of (TYLENOL-CO 00:00: mouth [place] DEINE #3) 00 every 4 Medical 300-30 mg (four) Branch tablet hours as needed for Pain (scale 4-6) or Pain (scale 7-10) (Maximum 10 tablets a day). acetaminoph 2020-0 Yes [id number] 2{tbl} Take 2 Univers en-codeine 2-19 05 tablets by ity of (TYLENOL-CO 00:00: mouth [place] DEINE #3) 00 every 4 Medical 300-30 mg (four) Branch tablet hours as needed for Pain (scale 4-6) or Pain (scale 7-10) (Maximum 10 tablets a day). acetaminoph 2020-0 Yes [id number] 2{tbl} Take 2 Univers en-codeine 2-19 05 tablets by ity of (TYLENOL-CO 00:00: mouth [place] DEINE #3) 00 every 4 Medical 300-30 mg (four) Branch tablet hours as needed for Pain (scale 4-6) or Pain (scale 7-10) (Maximum 10 tablets a day). acetaminoph 2020-0 Yes [id number] 2{tbl} Take 2 Univers en-codeine 2-19 05 tablets by ity of (TYLENOL-CO 00:00: mouth [place] DEINE #3) 00 every 4 Medical 300-30 mg (four) Branch tablet hours as needed for Pain (scale 4-6) or Pain (scale 7-10) (Maximum 10 tablets a day). acetaminoph 2020-0 Yes [id number] 2{tbl} Take 2 [facility] en-codeine 2-19 05 tablets by ity of (TYLENOL-CO 00:00: mouth [place] DEINE #3) 00 every 4 Medical 300-30 mg (four) Branch tablet hours as needed for Pain (scale 4-6) or Pain (scale 7-10) (Maximum 10 tablets a day). acetaminoph 2020-0 Yes [id number] 2{tbl} Take 2 Univers en-codeine 2-19 05 tablets by ity of (TYLENOL-CO 00:00: mouth [place] DEINE #3) 00 every 4 Medical 300-30 mg (four) Branch tablet hours as needed for Pain (scale 4-6) or Pain (scale 7-10) (Maximum 10 tablets a day). acetaminoph 2020-0 Yes [id number] 2{tbl} Take 2 [facility] en-codeine 2-19 05 tablets by ity of (TYLENOL-CO 00:00: mouth [place] DEINE #3) 00 every 4 Medical 300-30 mg (four) Branch tablet hours as needed for Pain (scale 4-6) or Pain (scale 7-10) (Maximum 10 tablets a day). acetaminoph 2020-0 Yes [id number] 2{tbl} Take 2 [facility] en-codeine 2-19 05 tablets by ity of (TYLENOL-CO 00:00: mouth [place] DEINE #3) 00 every 4 Medical 300-30 mg (four) Branch tablet hours as needed for Pain (scale 4-6) or Pain (scale 7-10) (Maximum 10 tablets a day). acetaminoph 2020-0 Yes [id number] 2{tbl} Take 2 Univers en-codeine 2-19 05 tablets by ity of (TYLENOL-CO 00:00: mouth [place] DEINE #3) 00 every 4 Medical 300-30 mg (four) Branch tablet hours as needed for Pain (scale 4-6) or Pain (scale 7-10) (Maximum 10 tablets a day). acetaminoph 2020-0 Yes [id number] 2{tbl} Take 2 [facility] en-codeine 2-19 05 tablets by ity of (TYLENOL-CO 00:00: mouth [place] DEINE #3) 00 every 4 Medical 300-30 mg (four) Branch tablet hours as needed for Pain (scale 4-6) or Pain (scale 7-10) (Maximum 10 tablets a day). acetaminoph 2020-0 Yes [id number] 2{tbl} Take 2 Univers en-codeine 2-19 05 tablets by ity of (TYLENOL-CO 00:00: mouth [place] DEINE #3) 00 every 4 Medical 300-30 mg (four) Branch tablet hours as needed for Pain (scale 4-6) or Pain (scale 7-10) (Maximum 10 tablets a day). acetaminoph 2020-0 Yes [id number] 2{tbl} Take 2 Univers en-codeine 2-19 05 tablets by ity of (TYLENOL-CO 00:00: mouth [place] DEINE #3) 00 every 4 Medical 300-30 mg (four) Branch tablet hours as needed for Pain (scale 4-6) or Pain (scale 7-10) (Maximum 10 tablets a day). acetaminoph 2020-0 Yes [id number] 2{tbl} Take 2 Univers en-codeine 2-19 05 tablets by ity of (TYLENOL-CO 00:00: mouth [place] DEINE #3) 00 every 4 Medical 300-30 mg (four) Branch tablet hours as needed for Pain (scale 4-6) or Pain (scale 7-10) (Maximum 10 tablets a day). acetaminoph 2020-0 Yes [id number] 2{tbl} Take 2 Univers en-codeine 2-19 05 tablets by ity of (TYLENOL-CO 00:00: mouth [place] DEINE #3) 00 every 4 Medical 300-30 mg (four) Branch tablet hours as needed for Pain (scale 4-6) or Pain (scale 7-10) (Maximum 10 tablets a day). acetaminoph 2020-0 Yes [id number] 2{tbl} Take 2 Univers en-codeine 2-19 05 tablets by ity of (TYLENOL-CO 00:00: mouth [place] DEINE #3) 00 every 4 Medical 300-30 mg (four) Branch tablet hours as needed for Pain (scale 4-6) or Pain (scale 7-10) (Maximum 10 tablets a day). acetaminoph 2020-0 Yes [id number] 2{tbl} Take 2 Univers en-codeine 2-19 05 tablets by ity of (TYLENOL-CO 00:00: mouth [place] DEINE #3) 00 every 4 Medical 300-30 mg (four) Branch tablet hours as needed for Pain (scale 4-6) or Pain (scale 7-10) (Maximum 10 tablets a day). acetaminoph 2020-0 Yes [id number] 2{tbl} Take 2 Univers en-codeine 2-19 05 tablets by ity of (TYLENOL-CO 00:00: mouth [place] DEINE #3) 00 every 4 Medical 300-30 mg (four) Branch tablet hours as needed for Pain (scale 4-6) or Pain (scale 7-10) (Maximum 10 tablets a day). acetaminoph 2020-0 Yes [id number] 2{tbl} Take 2 Univers en-codeine 2-19 05 tablets by ity of (TYLENOL-CO 00:00: mouth [place] DEINE #3) 00 every 4 Medical 300-30 mg (four) Branch tablet hours as needed for Pain (scale 4-6) or Pain (scale 7-10) (Maximum 10 tablets a day). acetaminoph 2020-0 Yes [id number] 2{tbl} Take 2 [facility] en-codeine 2-19 05 tablets by ity of (TYLENOL-CO 00:00: mouth [place] DEINE #3) 00 every 4 Medical 300-30 mg (four) Branch tablet hours as needed for Pain (scale 4-6) or Pain (scale 7-10) (Maximum 10 tablets a day). acetaminoph 2020-0 Yes [id number] 2{tbl} Take 2 [facility] en-codeine 2-19 05 tablets by ity of (TYLENOL-CO 00:00: mouth [place] DEINE #3) 00 every 4 Medical 300-30 mg (four) Branch tablet hours as needed for Pain (scale 4-6) or Pain (scale 7-10) (Maximum 10 tablets a day). acetaminoph 2020-0 Yes [id number] 2{tbl} Take 2 [facility] en-codeine 2-19 05 tablets by ity of (TYLENOL-CO 00:00: mouth [place] DEINE #3) 00 every 4 Medical 300-30 mg (four) Branch tablet hours as needed for Pain (scale 4-6) or Pain (scale 7-10) (Maximum 10 tablets a day). acetaminoph 2020-0 Yes [id number] 2{tbl} Take 2 [facility] en-codeine 2-19 05 tablets by ity of (TYLENOL-CO 00:00: mouth [place] DEINE #3) 00 every 4 Medical 300-30 mg (four) Branch tablet hours as needed for Pain (scale 4-6) or Pain (scale 7-10) (Maximum 10 tablets a day). acetaminoph 2020-0 Yes [id number] 2{tbl} Take 2 Univers en-codeine 2-19 05 tablets by ity of (TYLENOL-CO 00:00: mouth [place] DEINE #3) 00 every 4 Medical 300-30 mg (four) Branch tablet hours as needed for Pain (scale 4-6) or Pain (scale 7-10) (Maximum 10 tablets a day). acetaminoph 2020-0 Yes [id number] 2{tbl} Take 2 Univers en-codeine 2-19 05 tablets by ity of (TYLENOL-CO 00:00: mouth [place] DEINE #3) 00 every 4 Medical 300-30 mg (four) Branch tablet hours as needed for Pain (scale 4-6) or Pain (scale 7-10) (Maximum 10 tablets a day). acetaminoph 2020-0 Yes [id number] 2{tbl} Take 2 [facility] en-codeine 2-19 05 tablets by ity of (TYLENOL-CO 00:00: mouth [place] DEINE #3) 00 every 4 Medical 300-30 mg (four) Branch tablet hours as needed for Pain (scale 4-6) or Pain (scale 7-10) (Maximum 10 tablets a day). acetaminoph 2020-0 Yes [id number] 2{tbl} Take 2 [facility] en-codeine 2-19 05 tablets by ity of (TYLENOL-CO 00:00: mouth [place] DEINE #3) 00 every 4 Medical 300-30 mg (four) Branch tablet hours as needed for Pain (scale 4-6) or Pain (scale 7-10) (Maximum 10 tablets a day). acetaminoph 2020-0 Yes [id number] 2{tbl} Take 2 Univers en-codeine 2-19 05 tablets by ity of (TYLENOL-CO 00:00: mouth [place] DEINE #3) 00 every 4 Medical 300-30 mg (four) Branch tablet hours as needed for Pain (scale 4-6) or Pain (scale 7-10) (Maximum 10 tablets a day). acetaminoph 2020-0 Yes [id number] 2{tbl} Take 2 [facility] en-codeine 2-19 05 tablets by ity of (TYLENOL-CO 00:00: mouth [place] DEINE #3) 00 every 4 Medical 300-30 mg (four) Branch tablet hours as needed for Pain (scale 4-6) or Pain (scale 7-10) (Maximum 10 tablets a day). acetaminoph 2020-0 Yes [id number] 2{tbl} Take 2 [facility] en-codeine 2-19 05 tablets by ity of (TYLENOL-CO 00:00: mouth [place] DEINE #3) 00 every 4 Medical 300-30 mg (four) Branch tablet hours as needed for Pain (scale 4-6) or Pain (scale 7-10) (Maximum 10 tablets a day). acetaminoph 2020-0 Yes [id number] 2{tbl} Take 2 [facility] en-codeine 2-19 05 tablets by ity of (TYLENOL-CO 00:00: mouth [place] DEINE #3) 00 every 4 Medical 300-30 mg (four) Branch tablet hours as needed for Pain (scale 4-6) or Pain (scale 7-10) (Maximum 10 tablets a day). acetaminoph 2020-0 Yes [id number] 2{tbl} Take 2 [facility] en-codeine 2-19 05 tablets by ity of (TYLENOL-CO 00:00: mouth [place] DEINE #3) 00 every 4 Medical 300-30 mg (four) Branch tablet hours as needed for Pain (scale 4-6) or Pain (scale 7-10) (Maximum 10 tablets a day). acetaminoph 2020-0 Yes [id number] 2{tbl} Take 2 [facility] en-codeine 2-19 05 tablets by ity of (TYLENOL-CO 00:00: mouth [place] DEINE #3) 00 every 4 Medical 300-30 mg (four) Branch tablet hours as needed for Pain (scale 4-6) or Pain (scale 7-10) (Maximum 10 tablets a day). acetaminoph 2020-0 Yes [id number] 2{tbl} Take 2 [facility] en-codeine 2-19 05 tablets by ity of (TYLENOL-CO 00:00: mouth [place] DEINE #3) 00 every 4 Medical 300-30 mg (four) Branch tablet hours as needed for Pain (scale 4-6) or Pain (scale 7-10) (Maximum 10 tablets a day). acetaminoph 2019-0 Yes [id number] 2{tbl} Take 2 [facility] en-codeine 2-19 05 tablets by ity of (TYLENOL-CO 00:00: mouth [place] DEINE #3) 00 every 4 Medical 300-30 mg (four) Branch tablet hours as needed for Pain (scale 4-6) or Pain (scale 7-10) (Maximum 10 tablets a day). acetaminoph 2020-0 Yes [id number] 2{tbl} Take 2 Univers en-codeine 2-19 05 tablets by ity of (TYLENOL-CO 00:00: mouth [place] DEINE #3) 00 every 4 Medical 300-30 mg (four) Branch tablet hours as needed for Pain (scale 4-6) or Pain (scale 7-10) (Maximum 10 tablets a day). acetaminoph 0 Yes [id number] 2{tbl} Take 2 Univers en-codeine 2-19 05 tablets by ity of (TYLENOL-CO 00:00: mouth [place] DEINE #3) 00 every 4 Medical 300-30 mg (four) Branch tablet hours as needed for Pain (scale 4-6) or Pain (scale 7-10) (Maximum 10 tablets a day). acetaminoph 2020-0 Yes [id number] 2{tbl} Take 2 Univers en-codeine 2-19 05 tablets by ity of (TYLENOL-CO 00:00: mouth [place] DEINE #3) 00 every 4 Medical 300-30 mg (four) Branch tablet hours as needed for Pain (scale 4-6) or Pain (scale 7-10) (Maximum 10 tablets a day). acetaminoph 2020-0 Yes [id number] 2{tbl} Take 2 [facility] en-codeine 2-19 05 tablets by ity of (TYLENOL-CO 00:00: mouth [place] DEINE #3) 00 every 4 Medical 300-30 mg (four) Branch tablet hours as needed for Pain (scale 4-6) or Pain (scale 7-10) (Maximum 10 tablets a day). acetaminoph 2020-0 Yes [id number] 2{tbl} Take 2 Univers en-codeine 2-19 05 tablets by ity of (TYLENOL-CO 00:00: mouth [place] DEINE #3) 00 every 4 Medical 300-30 mg (four) Branch tablet hours as needed for Pain (scale 4-6) or Pain (scale 7-10) (Maximum 10 tablets a day). acetaminoph 2020-0 Yes [id number] 2{tbl} Take 2 Univers en-codeine 2-19 05 tablets by ity of (TYLENOL-CO 00:00: mouth [place] DEINE #3) 00 every 4 Medical 300-30 mg (four) Branch tablet hours as needed for Pain (scale 4-6) or Pain (scale 7-10) (Maximum 10 tablets a day). acetaminoph 2020-0 Yes [id number] 2{tbl} Take 2 Univers en-codeine 2-19 05 tablets by ity of (TYLENOL-CO 00:00: mouth [place] DEINE #3) 00 every 4 Medical 300-30 mg (four) Branch tablet hours as needed for Pain (scale 4-6) or Pain (scale 7-10) (Maximum 10 tablets a day). acetaminoph 2020-0 Yes [id number] 2{tbl} Take 2 Univers en-codeine 2-19 05 tablets by ity of (TYLENOL-CO 00:00: mouth [place] DEINE #3) 00 every 4 Medical 300-30 mg (four) Branch tablet hours as needed for Pain (scale 4-6) or Pain (scale 7-10) (Maximum 10 tablets a day). acetaminoph 2020-0 Yes [id number] 2{tbl} Take 2 Univers en-codeine 2-19 05 tablets by ity of (TYLENOL-CO 00:00: mouth [place] DEINE #3) 00 every 4 Medical 300-30 mg (four) Branch tablet hours as needed for Pain (scale 4-6) or Pain (scale 7-10) (Maximum 10 tablets a day). acetaminoph 2020-0 Yes [id number] 2{tbl} Take 2 Univers en-codeine 2-19 05 tablets by ity of (TYLENOL-CO 00:00: mouth [place] DEINE #3) 00 every 4 Medical 300-30 mg (four) Branch tablet hours as needed for Pain (scale 4-6) or Pain (scale 7-10) (Maximum 10 tablets a day). acetaminoph 2020-0 Yes [id number] 2{tbl} Take 2 Univers en-codeine 2-19 05 tablets by ity of (TYLENOL-CO 00:00: mouth [place] DEINE #3) 00 every 4 Medical 300-30 mg (four) Branch tablet hours as needed for Pain (scale 4-6) or Pain (scale 7-10) (Maximum 10 tablets a day). acetaminoph 2020-0 Yes [id number] 2{tbl} Take 2 Univers en-codeine 2-19 05 tablets by ity of (TYLENOL-CO 00:00: mouth [place] DEINE #3) 00 every 4 Medical 300-30 mg (four) Branch tablet hours as needed for Pain (scale 4-6) or Pain (scale 7-10) (Maximum 10 tablets a day). acetaminoph 2020-0 Yes [id number] 2{tbl} Take 2 Univers en-codeine 2-19 05 tablets by ity of (TYLENOL-CO 00:00: mouth [place] DEINE #3) 00 every 4 Medical 300-30 mg (four) Branch tablet hours as needed for Pain (scale 4-6) or Pain (scale 7-10) (Maximum 10 tablets a day). rivaroxaban 2019-0 2020- No 1481 10mg Take 1 Uni vers (XARELTO) 12-11- tablet by ity of tablet 00:00: 05:59 mouth [place] 00 :00 daily for Medical 10 days. Branch Indication s: deep vein thrombosis prevention in knee replacemen t rivaroxaban 2019-0 2020- No 1481 10mg Take 1 Uni vers (XARELTO) 12-11- tablet by ity of tablet 00:00: 05:59 mouth [place] 00 :00 daily for Medical 10 days. Branch Indication s: deep vein thrombosis prevention in knee replacemen t rivaroxaban 2019- 2020- No 1481 10mg Take 1 Uni vers (XARELTO) 12-11 tablet by ity of tablet 00:00: 05:59 mouth [place] 00 :00 daily for Medical 10 days. Branch Indication s: deep vein thrombosis prevention in knee replacemen t rivaroxaban 2019-0 2020- No 1481 10mg Take 1 Uni vers (XARELTO) 12-11- tablet by ity of tablet 00:00: 05:59 mouth [place] 00 :00 daily for Medical 10 days. Branch Indication s: deep vein thrombosis prevention in knee replacemen t rivaroxaban 2019-0 2020- No 1481 10mg Take 1 Uni vers (XARELTO) 12-11- tablet by ity of tablet 00:00: 05:59 mouth [place] 00 :00 daily for Medical 10 days. Branch Indication s: deep vein thrombosis prevention in knee replacemen t rivaroxaban 2020-0 2020- No 1481 10mg Take 1 Uni vers (XARELTO) 12-11- tablet by ity of tablet 00:00: 05:59 mouth [place] 00 :00 daily for Medical 10 days. Branch Indication s: deep vein thrombosis prevention in knee replacemen t verapamil 2020-0 Yes 120mg 120 mg, Univ ers SR (CALAN 2-18 Oral, ity of SR) ER 15:00: DAILY, [place] tablet 120 00 First dose Med ical mg on Mon Branch 12/10/19 at 0900, Until Discontinu ed spironolact 2020-0 Yes 25mg 25 mg, Univ ers one 2-18 Oral, ity of (ALDACTONE) 15:00: DAILY, [place] tablet 25 00 First dose Medi mac mg on [facility] 12/10/19 at 0900, Until Discontinu ed, Routine pantoprazol 2020-0 Yes 40mg 40 mg, Univ ers e 2-18 Oral, ity of (PROTONIX) 15:00: DAILY, [place] EC tablet 00 First dose Medi mac 40 mg on [facility] 12/10/19 at 0900, Until Discontinu ed, Routine methocarbam 2020-0 Yes 750mg 750 mg, [facility] [place] ol 2-18 Oral, ity of (ROBAXIN) 15:00: DAILY, [place] tablet 750 00 First dose Med ical mg on [facility] 12/10/19 at 0900, Until Discontinu ed, Routine losartan 2020-0 Yes 100mg 100 mg, Unive rs (COZAAR) 2-18 Oral, ity of tablet 100 15:00: DAILY, [place] mg 00 First dose Medical on [facility] 12/10/19 at 0900, Until Discontinu ed, Routine atorvastati 2020-0 Yes 20mg 20 mg, Univ ers n (LIPITOR) 2-18 Oral, ity of tablet 20 15:00: DAILY, [place] mg 00 First dose Medical on [facility] 12/10/19 at 0900, Until Discontinu ed, Routine venlafaxine 2020-0 Yes 150mg 150 mg, [facility] [place] XR (EFFEXOR 2-18 Oral, QAM ity of XR) 24 hr 14:00: WITH [place] capsule 150 00 BREAKFAST, Me dical mg First dose Branch on Mon12/10/19 at 0800, Until Discontinu ed, Routine enoxaparin 2020-0 Yes 30mg 30 mg, Unive rs (LOVENOX) 2-18 Subcutaneo ity of injection 12:00: us, [place] 30 mg 00 Q12HA2, Medical First dose Branch on Mon12/10/19 at 0600, Until Discontinu ed, Routine levothyroxi 2020-0 Yes 100ug 100 mcg, U nivers ne 2-18 Oral, ity of (SYNTHROID) 12:00: QAM-0600, [place] tablet 100 00 First dose Med ical mcg on Mon [place] 12/10/19 at 0600, Until Discontinu ed, Routine SERTraline 2020-0 Yes 50mg 50 mg, Unive rs (ZOLOFT) 2-18 Oral, QHS, ity o f tablet 50 03:00: First dose [place] mg 00 on [facility] 12/09/19 at Branch 2100, Until Discontinu ed, Routine clonazePAM 2020-0 Yes .5mg 0.5 mg, Univ ers (KLONOPIN) 2-18 Oral, QHS, ity of tablet 0.5 03:00: First dose [place] mg 00 on [facility] 12/09/19 at Branch 2100, Until Discontinu ed, Routine amitriptyli 2020-0 Yes 75mg 75 mg, Univ ers ne (ELAVIL) 2-18 Oral, QHS, it y of tablet 75 03:00: First dose [place] mg 00 on [facility] 12/09/19 at Branch 2100, Until Discontinu ed, Routine docusate 2020-0 Yes 100mg 100 mg, Unive rs (COLACE) 2-18 Oral, ity of capsule 100 02:00: Q12H, [place] mg 00 First dose Medical on Mon [place] 12/09/19 at 2000, Until Discontinu ed, Routine pramipexole 2020-0 Yes .25mg 0.25 mg, U nivers (MIRAPEX) 2-18 Oral, BID, ity of tablet 0.25 02:00: First dose [place] mg 00 on [facility] 12/09/19 at Branch 2000, Until Discontinu ed
Facu lty member approving Restricted medication : SORADC Sliding 2020-0 Yes Subcutaneo Univ ers Scale 2-17 us, TID ity of Insulin - 23:00: MEALS+HS, [place] Aspart 00 First dose Medical (NOVOLOG) + on Mon [place] [facility] 12/09/19 at Testing 1700, Until Discontinu ed, Routine venlafaxine 2020-0 Yes 75mg 75 mg, Univ ers XR (EFFEXOR 2-17 Oral, QPM, it y of XR) 24 hr 23:00: First dose [place] capsule 75 00 on [facility] mg 12/09/19 at Branch 1700, Until Discontinu ed, Routine predniSONE 2020-0 2020- No 40mg 40 mg, Univ ers (DELTASONE) 12-09 Oral, ONCE i ty of tablet 40 19:15: 18:31 NOW, 1 [place] mg 00 :00 dose, [facility] 12/09/19 at Branch 1315, Routine famotidine 2020- No 20mg 20 mg, [facility] (PEPCID AC) 12-09 Oral, ONCE i ty of tablet 20 19:15: 18:31 NOW, 1 [place] mg 00 :00 dose, [facility] 12/09/19 at Branch 1315, Routine diphenhydrA Yes 50mg 50 mg, [facility] 12-09 Oral, ity of (BENADRYL) 18:06: Q6HPRN, [place] tablet 50 29 Starting Medica l mg [facility] 12/09/19 at 1206, Until Discontinu ed, Routine, Itching diphenhydrA 0 2020- No 25mg 25 mg, [place] [facility] 12-09 Slow IV ity of (BENADRYL) 17:30: 17:00 Push, [place] injection 00 :00 ONCE, 1 Medical 25 mg dose, [facility] 12/09/19 at 1130, Routine, PACU morpHINE 30 2019- 2020- No Unive rs mg/30 mL 12-09 ity of (fixed 16:44: 23:15 [place] dose) MEDICAL/SURGERY REGISTERED NURSE 17 :34 Medical injection [place] lactated 2020- No 1000mL at 100 [facility] ringers IV 12-09 mL/hr, ity of infusion 16:30: 13:06 1,000 mL, [place] 1,000 mL 00 :24 IV Medical Infusion, [place] CONTINUOUS , Starting [facility] 12/09/19 at 1030, Until Mon12/11/19 at 0706, Routine, PACU dexamethaso 2019-0 2020- No ONCE INTRA Univers ne sod phos 12-09 PROCEDURE, i ty of PF 16:25: 21:32 Starting [place] injection 00 :13 [facility] 12/09/19 at Branch 1025, Until Mon12/09/19 at 1532, Routine, Intra-op ropivacaine 2019-0 2020- No ONCE INTRA Univers 0.5 % 12-09 PROCEDURE, ity of (NAROPIN 16:25: 21:31 [place] (PF)) 00 :44 Mon Medical injection 12/09/19 at [facility] 1025, Until 12/09/19 at 1531, Routine, Intra-op ropivacaine 2020-0 2020- No ONCE INTRA Univers 0.2 % 12-09 PROCEDURE, ity of (NAROPIN 16:25: 16:27 [place] (PF)) 00 :56 Mon Medical epidural 12/09/19 at [facility] h infusion 1025, Until 12/09/19 at 1027, Routine, Intra-op dexamethaso 2020-0 2020- No ONCE INTRA Univers ne sod phos 12-09 PROCEDURE, i ty of PF 16:25: 21:32 Starting [place] injection 00 :13 Mon Medical 12/09/19 at [place] 1025, Until 12/09/19 at 1532, Routine, Intra-op ropivacaine 2020-0 2020- No ONCE INTRA Univers 0.5 % 12-09 PROCEDURE, ity of (NAROPIN 16:25: 21:31 [place] (PF)) 00 :44 Mon Medical injection 12/09/19 at [facility] 1025, Until 12/09/19 at 1531, Routine, Intra-op ropivacaine 2020-0 2020- No ONCE INTRA Univers 0.2 % 12-09 PROCEDURE, ity of (NAROPIN 16:25: 16:27 [place] (PF)) 00 :56 Mon Medical epidural 12/09/19 at [facility] h infusion 1025, Until 12/09/19 at 1027, Routine, Intra-op verapamil 2020-0 Yes 120mg Take 120 Uni vers (VERELAN 2-17 mg by ity of PM) 120 mg 15:47: mouth at [facility] as 24 hr 19 bedtime. Medical capsule Branch metFORMIN 2020-0 Yes 500mg Take 500 Uni vers 500 mg 2-17 mg by ity of tablet 15:47: mouth 2 [place] 19 (two) Medical times Branch daily with meals. rOPINIRole 2020-0 Yes 2mg Take 2 mg [place] 2 mg tablet 2-17 by mouth ity of 15:47: at [place] 19 bedtime. Medical Branch venlafaxine 2020-0 Yes 150mg Take 150 U nivers XR 150 mg 2-17 mg by ity of 24 hr 15:47: mouth [place] capsule 19 daily with Medica l breakfast. Branch clonazePAM 2020-0 Yes .5mg Take 0.5 Uni vers 0.5 mg 2-17 mg by ity of tablet 15:47: mouth at [place] [address] bedtime. Medical Branch pantoprazol 2020-0 Yes 40mg Take 40 mg Univers e 40 mg EC 2-17 by mouth ity o f tablet 15:47: daily. [place] [address] Medical Branch amitriptyli 2020-0 Yes 75mg Take 75 mg Univers ne 75 mg 2-17 by mouth ity of tablet 15:47: at [place] [address] bedtime. Medical Branch naloxone 2020-0 Yes .4mg 0.4 mg, Univer s (NARCAN) 2-17 Slow IV ity of injection 15:44: Push, [place] 0.4 mg 34 SEE-INSTRU Medical CTIONS, Branch Starting 12/09/19 at 0944, Until Discontinu ed, Routine HYDROcodone 2020-0 Yes 1{tbl} 1 tablet, Univers -acetaminop 2-17 Oral, ity of hen (NORCO) 15:44: Q4HPRN, [place] 10-325 mg 10 Starting Medica l tablet 1 Mon [place] tablet 12/09/19 at 0944, Until Discontinu ed, Routine, Pain (scale 7-10) HYDROcodone 2020-0 Yes 1{tbl} 1 tablet, Univers -acetaminop 2-17 Oral, ity of hen (NORCO 15:44: Q6HPRN, [place] 5) 5-325 mg 07 Starting Medi mac tablet [address] [facility] tablet 12/09/19 at 0944, Until Discontinu ed, Routine, Pain (scale 4-6) ondansetron 2020-0 Yes 4mg 4 mg, Slow Univers (ZOFRAN 2-17 IV Push, ity of (PF)) 15:43: Q6HPRN, [place] injection 4 54 Starting Medi mac mg Mon Branch 12/09/19 at 0943, Until Discontinu ed, Routine, Nausea and Vomiting (N/V) ceFAZolin 2020-0 2020- No 2000mg 2 g (2,000 Univers in dextrose 2-17 02-17 mg), IV ity of (iso-os) 15:30: 14:22 [place], [place] (ANCEF) 2 00 :00 O.R. Medical gram/100 mL HOLDING Branc h Piggyback 2 ONCE, 1 g dose, Starting 12/09/19 at 0930, Until 12/09/19 at 0822, 100 mL, DSU Pre-op
Reason for Anti-Infec tive: Surgical Prophylaxi s
Surgi mac Prophylaxi s: Orthopaedi c
Durat ion of therapy: within 24 hours of surgery ceFAZolin 2020-0 2020- No 2000mg 2 g (2,000 Univers in dextrose 12-09 mg), IV ity of (iso-os) 15:30: 14:22 [place], [place] (ANCEF) 2 00 :00 O.R. Medical gram/100 mL HOLDING Branc h Piggyback 2 ONCE, 1 g dose, Starting 12/09/19 at 0930, Until 12/09/19 at 0822, 100 mL, DSU Pre-op
Reason for Anti-Infec tive: Surgical Prophylaxi s
Surgi mac Prophylaxi s: Orthopaedi c
Durat ion of therapy: within 24 hours of surgery hydralAZINE 2020-0 2020- No ONCE INTRA Univers (APRESOLINE 12-09 PROCEDURE, i ty of ) injection 15:04: 16:27 Starting [place] 00 :56 Mon Medical 12/09/19 at Branch 0904, Until 12/09/19 at 1027, Routine, Intra-op hydralAZINE 2020-0 2020- No ONCE INTRA Univers (APRESOLINE 12-09 PROCEDURE, i ty of ) injection 15:04: 16:27 Starting [place] 00 :56 Mon Medical 12/09/19 at Branch 0904, Until 12/09/19 at 1027, Routine, Intra-op lactated 2020-0 Yes 1000mL at 100 Unive rs ringers IV 2-17 mL/hr, ity of infusion 15:00: 1,000 mL, [place] 1,000 mL 00 IV Medical Infusion, Branch CONTINUOUS , Starting 12/09/19 at 0900, Until Discontinu ed, Routine HYDROmorphO 2020-0 2020- No ONCE INTRA Univers ne 12-09 PROCEDURE, ity of (DILAUDID) 14:56: 16:27 [place] injection 00 :56 Mon Medical 12/09/19 at Branch 08, Until 12/09/19 at 1027, Routine, Intra-op diphenhydrA 2020-0 2020- No ONCE INTRA Univers MINE 12-09 PROCEDURE, ity of (BENADRYL) 14:56: 16:27 [place] injection 00 :56 Mon Medical 12/09/19 at Branch [facility], Until 12/09/19 at 1027, Routine, Intra-op HYDROmorphO 2020-0 2020- No ONCE INTRA Univers ne 12-09 PROCEDURE, ity of (DILAUDID) 14:56: 16:27 [place] injection 00 :56 Mon Medical 12/09/19 at Branch [facility], Until Mon12/09/19 at 1027, Routine, Intra-op diphenhydrA 2020-0 2020- No ONCE INTRA Univers MINE 12-09 PROCEDURE, ity of (BENADRYL) 14:56: 16:27 [place] injection 00 :56 Mon Medical 12/09/19 at Branch [facility], Until Mon12/09/19 at 1027, Routine, Intra-op ondansetron 2020-0 2020- No ONCE INTRA Univers (ZOFRAN 12-09 PROCEDURE, ity o f (PF)) 14:53: 16:27 Starting [place] injection 00 :56 Mon Medical 12/09/19 at [place] [address], Until Mon12/09/19 at 1027, Routine, Intra-op ondansetron 2020-0 2020- No ONCE INTRA Univers (ZOFRAN 12-09 PROCEDURE, ity o f (PF)) 14:53: 16:27 Starting [place] injection 00 :56 [facility] Medical 12/09/19 at Branch [facility], Until 12/09/19 at 1027, Routine, Intra-op FENTanyl PF 2020-0 2020- No ONCE INTRA Univers (SUBLIMAZE 12-09 PROCEDURE, it y of (PF)) 14:52: 16:27 Starting [place] injection 00 :56 Mon Medical 12/09/19 at Branch [facility], Until 12/09/19 at 1027, Routine, Intra-op FENTanyl PF 2020-0 2020- No ONCE INTRA Univers (SUBLIMAZE 12-09 PROCEDURE, it y of (PF)) 14:52: 16:27 Starting [place] injection 00 :56 Mon Medical 12/09/19 at Branch 0852, Until 12/09/19 at 1027, Routine, Intra-op propofol IV 2020-0 2020- No Intravenou Univers infusion 12-09 s, ONCE ity of 14:22: 16:27 INTRA [place] 00 :56 PROCEDURE, Medical Starting Branch 12/09/19 at 0822, Until 12/09/19 at 1027, Routine, Intra-op lidocaine 2020-0 2020- No ONCE INTRA U nivers 1% 12-09 PROCEDURE, ity of (XYLOCAINE) 14:22: 16:27 Starting [place] 100 mg/10 00 :56 Mon Medical mL (1 %) 12/09/19 at [facility] h injection 0822, Until 12/09/19 at 1027, Routine, Intra-op propofol IV 2020-0 2020- No Intravenou Univers infusion 12-09 s, ONCE ity of 14:22: 16:27 INTRA [place] 00 :56 PROCEDURE, Medical Starting Branch [facility] 12/09/19 at 0822, Until Mon12/09/19 at 1027, Routine, Intra-op lidocaine 2020-0 2020- No ONCE INTRA U nivers 1% 12-09 PROCEDURE, ity of (XYLOCAINE) 14:22: 16:27 Starting [place] 100 mg/10 00 :56 Mon Medical mL (1 %) 12/09/19 at [facility] h injection 0822, Until 12/09/19 at 1027, Routine, Intra-op midazolam 2020-0 2020- No ONCE INTRA U nivers (VERSED) 12-09 PROCEDURE, ity of injection 14:12: 16:27 Starting [place] 00 :56 Mon Medical 12/09/19 at Branch 0812, Until 12/09/19 at 1027, Routine, Intra-op midazolam 2020-0 2020- No ONCE INTRA U nivers (VERSED) 12-09 PROCEDURE, ity of injection 14:12: 16:27 Starting [place] 00 :56 Mon Medical 12/09/19 at Branch 0812, Until 12/09/19 at 1027, Routine, Intra-op gabapentin 2020-0 2020- No 300mg 300 mg, [place] (NEURONTIN) 12-09 Oral, ity of capsule 300 13:30: 13:54 ONCE, 1 [place] mg 00 :00 dose, [facility] Medical 12/09/19 at Branch 0730, Routine, DSU Pre-op oxyCODONE-a 2020- No 2{tbl} 2 tablet, Univers cetaminophe 12-09 Oral, ity of n 13:30: 13:54 ONCE, 1 [place] (PERCOCET) 00 :00 dose, [facility] Medi mac 5-325 mg 12/09/19 at Bran h per tablet 0730, 2 tablet Routine, DSU Pre-op tranexamic 2019- No 1000mg 1,000 mg, Univers acid 12-09 IV ity of (CYKLOKAPRO 13:15: 14:31 Piggyback, [place] N) 1,000 mg 00 :00 ONCE, 1 Medic al in NaCl dose, [facility] 0.9% (NS) 12/09/19 at 250 mL 0715, 250 piggyback mL, DSU Pre-op tranexamic 2019- No 1000mg 1,000 mg, Univers acid 12-09 IV ity of (CYKLOKAPRO 13:15: 14:[facility] [place] [facility]) 1,000 mg 00 :00 ONCE, 1 Medic al in NaCl dose, [facility] 0.9% (NS) 12/09/19 at 250 mL 0715, 250 piggyback mL, DSU Pre-op ceFAZolin 2019- No 2g Univers in dextrose 12-09 ity of (iso-os) 06:00: 17:59 [place] (ANCEF) 2 00 :00 Medical gram/100 mL Branch Piggyback 2 g celecoxib 2020- No 400mg Univer s (CELEBREX) 12-09 ity of capsule 400 06:00: 17:59 [place] mg 00 :00 Medical Branch gabapentin 2019-0 2020- No 300mg Unive rs (NEURONTIN) 12-09 ity of capsule 300 06:00: 17:59 [place] mg 00 :00 Medical Branch oxyCODONE-a 2019-0 2020- No 2{tbl} Uni vers cetaminophe 12-09 ity of n 06:00: 17:59 [place] (PERCOCET) 00 :00 Medical 5-325 mg Branch per tablet 2 tablet tranexamic 2020-0 2020- No 1000mg Univ ers acid 12-09 ity of (CYKLOKAPRO 06:00: 17:59 [place] N) 1,000 mg 00 :00 Medical in NaCl Branch 0.9% (NS) 250 mL piggyback ceFAZolin 2019-0 2020- No 2g Univers in dextrose 12-09 ity of (iso-os) 06:00: 17:59 [place] (ANCEF) 2 00 :00 Medical gram/100 mL Branch Piggyback 2 g celecoxib 2019-0 2020- No 400mg Univer s (CELEBREX) 12-09 ity of capsule 400 06:00: 17:59 [place] mg 00 :00 Medical Branch gabapentin 2019-0 2020- No 300mg Unive rs (NEURONTIN) 12-09 ity of capsule 300 06:00: 17:59 [place] mg 00 :00 Medical Branch oxyCODONE-a 2019-0 2020- No 2{tbl} Uni vers cetaminophe 12-09 ity of n 06:00: 17:59 [place] (PERCOCET) 00 :00 Medical 5-325 mg Branch per tablet 2 tablet tranexamic 2019-0 2020- No 1000mg Univ ers acid 12-09 ity of (CYKLOKAPRO 06:00: 17:59 [place] N) 1,000 mg 00 :00 Medical in NaCl Branch 0.9% (NS) 250 mL piggyback ceFAZolin 0 2020- No 2g Univers in dextrose 12-09 ity of (iso-os) 06:00: 17:59 [place] (ANCEF) 2 00 :00 Medical gram/100 mL Branch Piggyback 2 g celecoxib 2019-0 2020- No 400mg Univer s (CELEBREX) 12-09 ity of capsule 400 06:00: 17:59 [place] mg 00 :00 Medical Branch gabapentin 2019-0 2020- No 300mg Unive rs (NEURONTIN) 12-09 ity of capsule 300 06:00: 17:59 [place] mg 00 :00 Medical Branch oxyCODONE-a 2019-0 2020- No 2{tbl} Uni vers cetaminophe 12-09 ity of n 06:00: 17:59 [place] (PERCOCET) 00 :00 Medical 5-325 mg Branch per tablet 2 tablet tranexamic 2019- No 1000mg Univ ers acid 12-09 ity of (CYKLOKAPRO 06:00: 17:59 [place] N) 1,000 mg 00 :00 Medical in NaCl Branch 0.9% (NS) 250 mL piggyback ceFAZolin 2019- No 2g Univers in dextrose 12-09 ity of (iso-os) 06:00: 17:59 [place] (ANCEF) 2 00 :00 Medical gram/100 mL Branch Piggyback 2 g celecoxib 2019- No 400mg Univer s (CELEBREX) 12-09 ity of capsule 400 06:00: 17:59 [place] mg 00 :00 Medical Branch gabapentin 2020- No 300mg Unive rs (NEURONTIN) 12-09 ity of capsule 300 06:00: 17:59 [place] mg 00 :00 Medical Branch oxyCODONE-a 2020- No 2{tbl} Uni vers cetaminophe 12-09 ity of n 06:00: 17:59 [place] (PERCOCET) 00 :00 Medical 5-325 mg Branch per tablet 2 tablet tranexamic 2020- No 1000mg Univ ers acid 12-09 ity of (CYKLOKAPRO 06:00: 17:59 [place] N) 1,000 mg 00 :00 Medical in NaCl Branch 0.9% (NS) 250 mL piggyback verapamil 2019-0 Yes 120mg Take 120 Uni vers (VERELAN 2-14 mg by ity of PM) 120 mg 17:34: mouth at [place] as 24 hr 28 bedtime. Medical capsule Branch metFORMIN 2019-0 Yes 500mg Take 500 Uni vers 500 mg 2-14 mg by ity of tablet 17:34: mouth 2 [place] 28 (two) Medical times Branch daily with meals. rOPINIRole 2019-0 Yes 2mg Take 2 mg [facility] [place] 2 mg tablet 2-14 by mouth ity of 17:34: at [place] 28 bedtime. Medical Branch venlafaxine 0 Yes 150mg Take 150 U nivers XR 150 mg 2-14 mg by ity of 24 hr 17:34: mouth [place] capsule 28 daily with Medica l breakfast. Branch clonazePAM 2020-0 Yes .5mg Take 0.5 Uni vers 0.5 mg 2-14 mg by ity of tablet 17:34: mouth at [place] [address] bedtime. Medical Branch pantoprazol 2020-0 Yes 40mg Take 40 mg Univers e 40 mg EC 2-14 by mouth ity o f tablet 17:34: daily. [place] [address] Medical Branch amitriptyli 2020-0 Yes 75mg Take 75 mg Univers ne 75 mg 2-14 by mouth ity of tablet 17:34: at [place] [address] bedtime. Medical Branch verapamil 2020-0 Yes 120mg Take 120 Uni vers (VERELAN 2-14 mg by ity of PM) 120 mg 17:34: mouth at [place] as 24 hr 28 bedtime. Medical capsule Branch metFORMIN 2020-0 Yes 500mg Take 500 Uni vers 500 mg 2-14 mg by ity of tablet 17:34: mouth 2 (two) Medical times Branch daily with meals. rOPINIRole 2020-0 Yes 2mg Take 2 mg [place] 2 mg tablet 2-14 by mouth ity of 17:34: at [place] [address] bedtime. Medical Branch venlafaxine 2020-0 Yes 150mg Take 150 U nivers XR 150 mg 2-14 mg by ity of 24 hr 17:34: mouth [place] daily with Medica l breakfast. Branch clonazePAM 2020-0 Yes .5mg Take 0.5 Uni vers 0.5 mg 2-14 mg by ity of tablet 17:34: mouth at [place] [address] bedtime. Medical Branch pantoprazol 2020-0 Yes 40mg Take 40 mg Univers e 40 mg EC 2-14 by mouth ity o f tablet 17:34: daily. [place] [address] Medical Branch amitriptyli 2020-0 Yes 75mg Take 75 mg [facility] ne 75 mg 2-14 by mouth ity of tablet 17:34: at [place] [address] bedtime. Medical Branch verapamil 2020-0 Yes 120mg Take 120 Uni vers (VERELAN 2-14 mg by ity of PM) 120 mg 17:34: mouth at [place] as 24 hr 28 bedtime. Medical capsule Branch metFORMIN 2020-0 Yes 500mg Take 500 Uni vers 500 mg 2-14 mg by ity of tablet 17:34: mouth 2 [place] [address] (two) Medical times Branch daily with meals. rOPINIRole 2019-0 Yes 2mg Take 2 mg [place] 2 mg tablet 2-14 by mouth ity of 17:34: at [place] [address] bedtime. Medical Branch venlafaxine 0 Yes 150mg Take 150 U nivers XR 150 mg 2-14 mg by ity of 24 hr 17:34: mouth [place] capsule 28 daily with Medica l breakfast. Branch clonazePAM 2019- Yes .5mg Take 0.5 Uni vers 0.5 mg 2-14 mg by ity of tablet 17:34: mouth at [place] [address] bedtime. Medical Branch pantoprazol Yes 40mg Take 40 mg Univers e 40 mg EC 2-14 by mouth ity o f tablet 17:34: daily. [place] [address] Medical Branch amitriptyli 2019-0 Yes 75mg Take 75 mg Univers ne 75 mg 2-14 by mouth ity of tablet 17:34: at [place] [address] bedtime. Medical Branch HYDROcodone 2020- No 1{tbl} Take 1 U nivers -acetaminop 2-14 02-14 tablet by it y of hen (NORCO) 17:33: 00:00 [place] 10-325 mg 12 :00 every 6 Medical tablet (six) Branch hours as needed. atorvastati 2019-0 2020- No 80mg Take 80 mg Univers n 80 mg 2-14 02-14 by mouth. ity of tablet 17:33: 00:00 [place] 12 :00 Medical Branch Levothyroxi 2019-0 2020- No 100ug Take 100 Univers ne 100 mcg 2-14 02-14 mcg by ity of capsule 17:33: 00:00 mouth. [place] 12 :00 Medical Branch QUEtiapine 2019-0 2020- No 200mg Take 200 U nivers 200 mg 2-14 02-14 mg by ity of tablet 17:33: 00:00 mouth at [place] 12 :00 bedtime. Medical Branch venlafaxine 0 2020- No 37.5mg Take 37.5 Univers XR 37.5 mg 2-14 02-14 mg by ity of 24 hr 17:33: 00:00 mouth [place] capsule 12 :00 daily with Medica l breakfast. Branch HYDROcodone 2019- Yes 1{tbl} Take 1 [place] -acetaminop 2-05 tablet by ity of hen 7.5-325 00:00: mouth 3 [place] mg per 00 (three) Medical tablet times Branch daily as needed. HYDROcodone 2020-0 Yes 1{tbl} Take 1 [place] -acetaminop 2-05 tablet by ity of hen 7.5-325 00:00: mouth 3 [place] mg per 00 (three) Medical tablet times Branch daily as needed. HYDROcodone 2020-0 Yes 1{tbl} Take 1 [place] -acetaminop 2-05 tablet by ity of hen 7.5-325 00:00: mouth 3 [place] mg per 00 (three) Medical tablet times Branch daily as needed. HYDROcodone 2020-0 Yes 1{tbl} Take 1 [place] -acetaminop 2-05 tablet by ity of hen 7.5-325 00:00: mouth 3 [place] mg per 00 (three) Medical tablet times Branch daily as needed. HYDROcodone 2020-0 Yes 1{tbl} Take 1 [place] -acetaminop 2-05 tablet by ity of hen 7.5-325 00:00: mouth 3 [place] mg per 00 (three) Medical tablet times Branch daily as needed. HYDROcodone 2020-0 Yes 1{tbl} Take 1 [place] -acetaminop 2-05 tablet by ity of hen 7.5-325 00:00: mouth 3 [place] mg per 00 (three) Medical tablet times Branch daily as needed. HYDROcodone 2020-0 Yes 1{tbl} Take 1 [place] -acetaminop 2-05 tablet by ity of hen 7.5-325 00:00: mouth 3 [place] mg per 00 (three) Medical tablet times Branch daily as needed. HYDROcodone 2020-0 Yes 1{tbl} Take 1 [place] -acetaminop 2-05 tablet by ity of hen 7.5-325 00:00: mouth 3 [place] mg per 00 (three) Medical tablet times Branch daily as needed. HYDROcodone 2020-0 Yes 1{tbl} Take 1 [place] -acetaminop 2-05 tablet by ity of hen 7.5-325 00:00: mouth 3 [place] mg per 00 (three) Medical tablet times Branch daily as needed. HYDROcodone 2020-0 Yes 1{tbl} Take 1 [facility] [place] -acetaminop 2-05 tablet by ity of hen 7.5-325 00:00: mouth 3 [place] mg per 00 (three) Medical tablet times Branch daily as needed. HYDROcodone 2020-0 Yes 1{tbl} Take 1 [facility] [place] -acetaminop 2-05 tablet by ity of hen 7.5-325 00:00: mouth 3 [place] mg per 00 (three) Medical tablet times Branch daily as needed. HYDROcodone 2020-0 Yes 1{tbl} Take 1 [facility] [place] -acetaminop 2-05 tablet by ity of hen 7.5-325 00:00: mouth 3 [place] mg per 00 (three) Medical tablet times Branch daily as needed. HYDROcodone 2020-0 Yes 1{tbl} Take 1 [place] -acetaminop 2-05 tablet by ity of hen 7.5-325 00:00: mouth 3 [place] mg per 00 (three) Medical tablet times Branch daily as needed. HYDROcodone 2020-0 Yes 1{tbl} Take 1 [place] -acetaminop 2-05 tablet by ity of hen 7.5-325 00:00: mouth 3 [place] mg per 00 (three) Medical tablet times Branch daily as needed. HYDROcodone 2020-0 Yes 1{tbl} Take 1 [place] -acetaminop 2-05 tablet by ity of hen 7.5-325 00:00: mouth 3 [place] mg per 00 (three) Medical tablet times Branch daily as needed. HYDROcodone 2020-0 Yes 1{tbl} Take 1 [place] -acetaminop 2-05 tablet by ity of hen 7.5-325 00:00: mouth 3 [place] mg per 00 (three) Medical tablet times Branch daily as needed. HYDROcodone 2020-0 Yes 1{tbl} Take 1 [place] -acetaminop 2-05 tablet by ity of hen 7.5-325 00:00: mouth 3 [place] mg per 00 (three) Medical tablet times Branch daily as needed. HYDROcodone 2020-0 Yes 1{tbl} Take 1 [place] -acetaminop 2-05 tablet by ity of hen 7.5-325 00:00: mouth 3 [place] mg per 00 (three) Medical tablet times Branch daily as needed. HYDROcodone 2020-0 Yes 1{tbl} Take 1 [facility] [place] -acetaminop 2-05 tablet by ity of hen 7.5-325 00:00: mouth 3 [place] mg per 00 (three) Medical tablet times Branch daily as needed. HYDROcodone 2020-0 Yes 1{tbl} Take 1 [facility] [place] -acetaminop 2-05 tablet by ity of hen 7.5-325 00:00: mouth 3 [place] mg per 00 (three) Medical tablet times Branch daily as needed. HYDROcodone 2020-0 Yes 1{tbl} Take 1 [facility] [place] -acetaminop 2-05 tablet by ity of hen 7.5-325 00:00: mouth 3 [place] mg per 00 (three) Medical tablet times Branch daily as needed. HYDROcodone 2020-0 Yes 1{tbl} Take 1 [place] -acetaminop 2-05 tablet by ity of hen 7.5-325 00:00: mouth 3 [place] mg per 00 (three) Medical tablet times Branch daily as needed. HYDROcodone 2020-0 Yes 1{tbl} Take 1 [place] -acetaminop 2-05 tablet by ity of hen 7.5-325 00:00: mouth 3 [place] mg per 00 (three) Medical tablet times Branch daily as needed. HYDROcodone 2020-0 Yes 1{tbl} Take 1 [place] -acetaminop 2-05 tablet by ity of hen 7.5-325 00:00: mouth 3 [place] mg per 00 (three) Medical tablet times Branch daily as needed. HYDROcodone 2020-0 Yes 1{tbl} Take 1 [place] -acetaminop 2-05 tablet by ity of hen 7.5-325 00:00: mouth 3 [place] as mg per 00 (three) Medical tablet times Branch daily as needed. HYDROcodone 2020-0 Yes 1{tbl} Take 1 [place] -acetaminop 2-05 tablet by ity of hen 7.5-325 00:00: mouth 3 [place] mg per 00 (three) Medical tablet times Branch daily as needed. HYDROcodone 2020-0 Yes 1{tbl} Take 1 [place] -acetaminop 2-05 tablet by ity of hen 7.5-325 00:00: mouth 3 [place] mg per 00 (three) Medical tablet times Branch daily as needed. HYDROcodone 2020-0 Yes 1{tbl} Take 1 [place] -acetaminop 2-05 tablet by ity of hen 7.5-325 00:00: mouth 3 [place] mg per 00 (three) Medical tablet times Branch daily as needed. HYDROcodone 2020-0 Yes 1{tbl} Take 1 [facility] [place] -acetaminop 2-05 tablet by ity of hen 7.5-325 00:00: mouth 3 [place] mg per 00 (three) Medical tablet times Branch daily as needed. HYDROcodone 2020-0 Yes 1{tbl} Take 1 [place] -acetaminop 2-05 tablet by ity of hen 7.5-325 00:00: mouth 3 [place] as mg per 00 (three) Medical tablet times Branch daily as needed. HYDROcodone 2020-0 Yes 1{tbl} Take 1 [place] -acetaminop 2-05 tablet by ity of hen 7.5-325 00:00: mouth 3 [place] as mg per 00 (three) Medical tablet times Branch daily as needed. HYDROcodone 2020-0 Yes 1{tbl} Take 1 [place] -acetaminop 2-05 tablet by ity of hen 7.5-325 00:00: mouth 3 [place] as mg per 00 (three) Medical tablet times Branch daily as needed. HYDROcodone 2020-0 Yes 1{tbl} Take 1 [place] -acetaminop 2-05 tablet by ity of hen 7.5-325 00:00: mouth 3 [place] mg per 00 (three) Medical tablet times Branch daily as needed. HYDROcodone 2020-0 Yes 1{tbl} Take 1 [place] -acetaminop 2-05 tablet by ity of hen 7.5-325 00:00: mouth 3 [place] as mg per 00 (three) Medical tablet times Branch daily as needed. HYDROcodone 2020-0 Yes 1{tbl} Take 1 [place] -acetaminop 2-05 tablet by ity of hen 7.5-325 00:00: mouth 3 [place] as mg per 00 (three) Medical tablet times Branch daily as needed. HYDROcodone 2020-0 Yes 1{tbl} Take 1 [place] -acetaminop 2-05 tablet by ity of hen 7.5-325 00:00: mouth 3 [place] as mg per 00 (three) Medical tablet times Branch daily as needed. HYDROcodone 2020-0 Yes 1{tbl} Take 1 [place] -acetaminop 2-05 tablet by ity of hen 7.5-325 00:00: mouth 3 [place] as mg per 00 (three) Medical tablet times Branch daily as needed. HYDROcodone 2020-0 Yes 1{tbl} Take 1 [place] -acetaminop 2-05 tablet by ity of hen 7.5-325 00:00: mouth 3 [place] as mg per 00 (three) Medical tablet times Branch daily as needed. HYDROcodone 2020-0 Yes 1{tbl} Take 1 [place] -acetaminop 2-05 tablet by ity of hen 7.5-325 00:00: mouth 3 [place] as mg per 00 (three) Medical tablet times Branch daily as needed. HYDROcodone 2020-0 Yes 1{tbl} Take 1 [place] -acetaminop 2-05 tablet by ity of hen 7.5-325 00:00: mouth 3 [place] as mg per 00 (three) Medical tablet times Branch daily as needed. HYDROcodone 2020-0 Yes 1{tbl} Take 1 [place] -acetaminop 2-05 tablet by ity of hen 7.5-325 00:00: mouth 3 [place] as mg per 00 (three) Medical tablet times Branch daily as needed. HYDROcodone 2020-0 Yes 1{tbl} Take 1 [place] -acetaminop 2-05 tablet by ity of hen 7.5-325 00:00: mouth 3 [place] mg per 00 (three) Medical tablet times Branch daily as needed. HYDROcodone 2020-0 Yes 1{tbl} Take 1 [place] -acetaminop 2-05 tablet by ity of hen 7.5-325 00:00: mouth 3 [place] as mg per 00 (three) Medical tablet times Branch daily as needed. HYDROcodone 2020-0 Yes 1{tbl} Take 1 [place] -acetaminop 2-05 tablet by ity of hen 7.5-325 00:00: mouth 3 [place] as mg per 00 (three) Medical tablet times Branch daily as needed. HYDROcodone 2020-0 Yes 1{tbl} Take 1 [place] -acetaminop 2-05 tablet by ity of hen 7.5-325 00:00: mouth 3 [place] mg per 00 (three) Medical tablet times Branch daily as needed. HYDROcodone 2020-0 Yes 1{tbl} Take 1 [place] -acetaminop 2-05 tablet by ity of hen 7.5-325 00:00: mouth 3 [place] as mg per 00 (three) Medical tablet times Branch daily as needed. HYDROcodone 2020-0 Yes 1{tbl} Take 1 [place] -acetaminop 2-05 tablet by ity of hen 7.5-325 00:00: mouth 3 [place] as mg per 00 (three) Medical tablet times Branch daily as needed. HYDROcodone 2020-0 Yes 1{tbl} Take 1 [place] -acetaminop 2-05 tablet by ity of hen 7.5-325 00:00: mouth 3 [place] mg per 00 (three) Medical tablet times Branch daily as needed. HYDROcodone 2020-0 Yes 1{tbl} Take 1 [place] -acetaminop 2-05 tablet by ity of hen 7.5-325 00:00: mouth 3 [place] as mg per 00 (three) Medical tablet times Branch daily as needed. HYDROcodone 2020-0 Yes 1{tbl} Take 1 [place] -acetaminop 2-05 tablet by ity of hen 7.5-325 00:00: mouth 3 [place] as mg per 00 (three) Medical tablet times Branch daily as needed. HYDROcodone 2020-0 Yes 1{tbl} Take 1 [place] -acetaminop 2-05 tablet by ity of hen 7.5-325 00:00: mouth 3 [place] as mg per 00 (three) Medical tablet times Branch daily as needed. HYDROcodone 2020-0 Yes 1{tbl} Take 1 [place] -acetaminop 2-05 tablet by ity of hen 7.5-325 00:00: mouth 3 [place] as mg per 00 (three) Medical tablet times Branch daily as needed. HYDROcodone 2020-0 Yes 1{tbl} Take 1 [place] -acetaminop 2-05 tablet by ity of hen 7.5-325 00:00: mouth 3 [place] as mg per 00 (three) Medical tablet times Branch daily as needed. HYDROcodone 2020-0 Yes 1{tbl} Take 1 [place] -acetaminop 2-05 tablet by ity of hen 7.5-325 00:00: mouth 3 [place] as mg per 00 (three) Medical tablet times Branch daily as needed. HYDROcodone 2020-0 Yes 1{tbl} Take 1 [place] -acetaminop 2-05 tablet by ity of hen 7.5-325 00:00: mouth 3 [place] as mg per 00 (three) Medical tablet times Branch daily as needed. HYDROcodone 2020-0 Yes 1{tbl} Take 1 [place] -acetaminop 2-05 tablet by ity of hen 7.5-325 00:00: mouth 3 [place] as mg per 00 (three) Medical tablet times Branch daily as needed. HYDROcodone 2020-0 Yes 1{tbl} Take 1 [place] -acetaminop 2-05 tablet by ity of hen 7.5-325 00:00: mouth 3 [place] as mg per 00 (three) Medical tablet times Branch daily as needed. HYDROcodone 2020-0 Yes 1{tbl} Take 1 [place] -acetaminop 2-05 tablet by ity of hen 7.5-325 00:00: mouth 3 [place] as mg per 00 (three) Medical tablet times Branch daily as needed. HYDROcodone 2020-0 Yes 1{tbl} Take 1 [place] -acetaminop 2-05 tablet by ity of hen 7.5-325 00:00: mouth 3 [place] as mg per 00 (three) Medical tablet times Branch daily as needed. HYDROcodone 2020-0 Yes 1{tbl} Take 1 [place] -acetaminop 2-05 tablet by ity of hen 7.5-325 00:00: mouth 3 [place] as mg per 00 (three) Medical tablet times Branch daily as needed. HYDROcodone 2020-0 Yes 1{tbl} Take 1 [place] -acetaminop 2-05 tablet by ity of hen 7.5-325 00:00: mouth 3 [place] as mg per 00 (three) Medical tablet times Branch daily as needed. HYDROcodone 2020-0 Yes 1{tbl} Take 1 [place] -acetaminop 2-05 tablet by ity of hen 7.5-325 00:00: mouth 3 [place] as mg per 00 (three) Medical tablet times Branch daily as needed. HYDROcodone 2020-0 Yes 1{tbl} Take 1 [place] -acetaminop 2-05 tablet by ity of hen 7.5-325 00:00: mouth 3 [place] as mg per 00 (three) Medical tablet times Branch daily as needed. HYDROcodone 2020-0 Yes 1{tbl} Take 1 [place] -acetaminop 2-05 tablet by ity of hen 7.5-325 00:00: mouth 3 [place] mg per 00 (three) Medical tablet times Branch daily as needed. QUEtiapine 2020-0 Yes 100mg Take 100 [place] 100 mg 2-03 mg by ity of tablet 00:00: mouth at [place] [address] bedtime. Medical Branch QUEtiapine 2020-0 Yes 100mg Take 100 [place] 100 mg 2-03 mg by ity of tablet 00:00: mouth at [place] [address] bedtime. Medical Branch QUEtiapine 2020-0 Yes 100mg Take 100 [place] 100 mg 2-03 mg by ity of tablet 00:00: mouth at [place] [address] bedtime. Medical Branch QUEtiapine 2020-0 Yes 100mg Take 100 [place] 100 mg 2-03 mg by ity of tablet 00:00: mouth at [place] [address] bedtime. Medical Branch QUEtiapine 2020-0 Yes 100mg Take 100 [place] 100 mg 2-03 mg by ity of tablet 00:00: mouth at [place] [address] bedtime. Medical Branch QUEtiapine 2020-0 Yes 100mg Take 100 [place] 100 mg 2-03 mg by ity of tablet 00:00: mouth at [place] [address] bedtime. Medical Branch QUEtiapine 2020-0 Yes 100mg Take 100 [place] 100 mg 2-03 mg by ity of tablet 00:00: mouth at [place] [address] bedtime. Medical Branch QUEtiapine 2020-0 Yes 100mg Take 100 [place] 100 mg 2-03 mg by ity of tablet 00:00: mouth at [place] [address] bedtime. Medical Branch QUEtiapine 2020-0 Yes 100mg Take 100 [place] 100 mg 2-03 mg by ity of tablet 00:00: mouth at [place] [address] bedtime. Medical Branch QUEtiapine 2020-0 Yes 100mg Take 100 [place] 100 mg 2-03 mg by ity of tablet 00:00: mouth at [place] [address] bedtime. Medical Branch QUEtiapine 2020-0 Yes 100mg Take 100 [place] 100 mg 2-03 mg by ity of tablet 00:00: mouth at [place] [address] bedtime. Medical Branch QUEtiapine 2020-0 Yes 100mg Take 100 [place] 100 mg 2-03 mg by ity of tablet 00:00: mouth at [place] [address] bedtime. Medical Branch QUEtiapine 2020-0 Yes 100mg Take 100 [place] 100 mg 2-03 mg by ity of tablet 00:00: mouth at [place] [address] bedtime. Medical Branch QUEtiapine 2020-0 Yes 100mg Take 100 [place] 100 mg 2-03 mg by ity of tablet 00:00: mouth at [place] [address] bedtime. Medical Branch QUEtiapine 2020-0 Yes 100mg Take 100 [place] 100 mg 2-03 mg by ity of tablet 00:00: mouth at [place] [address] bedtime. Medical Branch QUEtiapine 2020-0 Yes 100mg Take 100 [place] 100 mg 2-03 mg by ity of tablet 00:00: mouth at [place] [address] bedtime. Medical Branch QUEtiapine 2020-0 Yes 100mg Take 100 [place] 100 mg 2-03 mg by ity of tablet 00:00: mouth at [place] [address] bedtime. Medical Branch QUEtiapine 2020-0 Yes 100mg Take 100 [place] 100 mg 2-03 mg by ity of tablet 00:00: mouth at [place] [address] bedtime. Medical Branch QUEtiapine 2020-0 Yes 100mg Take 100 [place] 100 mg 2-03 mg by ity of tablet 00:00: mouth at [place] [address] bedtime. Medical Branch QUEtiapine 2020-0 Yes 100mg Take 100 [place] 100 mg 2-03 mg by ity of tablet 00:00: mouth at [place] [address] bedtime. Medical Branch QUEtiapine 2020-0 Yes 100mg Take 100 [place] 100 mg 2-03 mg by ity of tablet 00:00: mouth at [place] [address] bedtime. Medical Branch QUEtiapine 2020-0 Yes 100mg Take 100 [place] 100 mg 2-03 mg by ity of tablet 00:00: mouth at [place] [address] bedtime. Medical Branch QUEtiapine 2020-0 Yes 100mg Take 100 [place] 100 mg 2-03 mg by ity of tablet 00:00: mouth at [place] [address] bedtime. Medical Branch QUEtiapine 2020-0 Yes 100mg Take 100 [place] 100 mg 2-03 mg by ity of tablet 00:00: mouth at [place] [address] bedtime. Medical Branch QUEtiapine 2020-0 Yes 100mg Take 100 [place] 100 mg 2-03 mg by ity of tablet 00:00: mouth at [place] [address] bedtime. Medical Branch QUEtiapine 2020-0 Yes 100mg Take 100 [place] 100 mg 2-03 mg by ity of tablet 00:00: mouth at [place] [address] bedtime. Medical Branch QUEtiapine 2020-0 Yes 100mg Take 100 [place] 100 mg 2-03 mg by ity of tablet 00:00: mouth at [place] [address] bedtime. Medical Branch QUEtiapine 2020-0 Yes 100mg Take 100 [place] 100 mg 2-03 mg by ity of tablet 00:00: mouth at [place] [address] bedtime. Medical Branch QUEtiapine 2020-0 Yes 100mg Take 100 [place] 100 mg 2-03 mg by ity of tablet 00:00: mouth at [place] [address] bedtime. Medical Branch QUEtiapine 2020-0 Yes 100mg Take 100 [place] 100 mg 2-03 mg by ity of tablet 00:00: mouth at [place] [address] bedtime. Medical Branch QUEtiapine 2020-0 Yes 100mg Take 100 [place] 100 mg 2-03 mg by ity of tablet 00:00: mouth at [place] [address] bedtime. Medical Branch QUEtiapine 2020-0 Yes 100mg Take 100 [place] 100 mg 2-03 mg by ity of tablet 00:00: mouth at [place] [address] bedtime. Medical Branch QUEtiapine 2020-0 Yes 100mg Take 100 [place] 100 mg 2-03 mg by ity of tablet 00:00: mouth at [place] [address] bedtime. Medical Branch QUEtiapine 2020-0 Yes 100mg Take 100 [place] 100 mg 2-03 mg by ity of tablet 00:00: mouth at [place] [address] bedtime. Medical Branch QUEtiapine 2020-0 Yes 100mg Take 100 [place] 100 mg 2-03 mg by ity of tablet 00:00: mouth at [place] [address] bedtime. Medical Branch QUEtiapine 2020-0 Yes 100mg Take 100 [place] 100 mg 2-03 mg by ity of tablet 00:00: mouth at [place] [address] bedtime. Medical Branch QUEtiapine 2020-0 Yes 100mg Take 100 [place] 100 mg 2-03 mg by ity of tablet 00:00: mouth at [place] [address] bedtime. Medical Branch QUEtiapine 2020-0 Yes 100mg Take 100 [place] 100 mg 2-03 mg by ity of tablet 00:00: mouth at [place] [address] bedtime. Medical Branch QUEtiapine 2020-0 Yes 100mg Take 100 [place] 100 mg 2-03 mg by ity of tablet 00:00: mouth at [place] [address] bedtime. Medical Branch QUEtiapine 2020-0 Yes 100mg Take 100 [place] 100 mg 2-03 mg by ity of tablet 00:00: mouth at [place] [address] bedtime. Medical Branch QUEtiapine 2020-0 Yes 100mg Take 100 [place] 100 mg 2-03 mg by ity of tablet 00:00: mouth at [place] [address] bedtime. Medical Branch QUEtiapine 2020-0 Yes 100mg Take 100 [place] 100 mg 2-03 mg by ity of tablet 00:00: mouth at [place] [address] bedtime. Medical Branch QUEtiapine 2020-0 Yes 100mg Take 100 [place] 100 mg 2-03 mg by ity of tablet 00:00: mouth at [place] [address] bedtime. Medical Branch QUEtiapine 2020-0 Yes 100mg Take 100 [place] 100 mg 2-03 mg by ity of tablet 00:00: mouth at [place] [address] bedtime. Medical Branch QUEtiapine 2020-0 Yes 100mg Take 100 [place] 100 mg 2-03 mg by ity of tablet 00:00: mouth at [place] [address] bedtime. Medical Branch QUEtiapine 2020-0 Yes 100mg Take 100 [place] 100 mg 2-03 mg by ity of tablet 00:00: mouth at [place] [address] bedtime. Medical Branch QUEtiapine 2020-0 Yes 100mg Take 100 [place] 100 mg 2-03 mg by ity of tablet 00:00: mouth at [place] [address] bedtime. Medical Branch QUEtiapine 2020-0 Yes 100mg Take 100 [place] 100 mg 2-03 mg by ity of tablet 00:00: mouth at [place] [address] bedtime. Medical Branch QUEtiapine 2020-0 Yes 100mg Take 100 [place] 100 mg 2-03 mg by ity of tablet 00:00: mouth at [place] [address] bedtime. Medical Branch QUEtiapine 2020-0 Yes 100mg Take 100 [place] 100 mg 2-03 mg by ity of tablet 00:00: mouth at [place] [address] bedtime. Medical Branch QUEtiapine 2020-0 Yes 100mg Take 100 [place] 100 mg 2-03 mg by ity of tablet 00:00: mouth at [place] [address] bedtime. Medical Branch QUEtiapine 2020-0 Yes 100mg Take 100 [place] 100 mg 2-03 mg by ity of tablet 00:00: mouth at [place] [address] bedtime. Medical Branch QUEtiapine 2020-0 Yes 100mg Take 100 [place] 100 mg 2-03 mg by ity of tablet 00:00: mouth at [place] [address] bedtime. Medical Branch QUEtiapine 2020-0 Yes 100mg Take 100 [place] 100 mg 2-03 mg by ity of tablet 00:00: mouth at [place] [address] bedtime. Medical Branch QUEtiapine 2020-0 Yes 100mg Take 100 [facility] [place] 100 mg 2-03 mg by ity of tablet 00:00: mouth at [place] [address] bedtime. Medical Branch QUEtiapine 2020-0 Yes 100mg Take 100 [place] 100 mg 2-03 mg by ity of tablet 00:00: mouth at [place] [address] bedtime. Medical Branch QUEtiapine 2020-0 Yes 100mg Take 100 [place] 100 mg 2-03 mg by ity of tablet 00:00: mouth at [place] [address] bedtime. Medical Branch QUEtiapine 2020-0 Yes 100mg Take 100 [place] 100 mg 2-03 mg by ity of tablet 00:00: mouth at [place] [address] bedtime. Medical Branch QUEtiapine 2020-0 Yes 100mg Take 100 [place] 100 mg 2-03 mg by ity of tablet 00:00: mouth at [place] [address] bedtime. [facility] QUEtiapine 2020-0 Yes 100mg Take 100 [place] 100 mg 2-03 mg by ity of tablet 00:00: mouth at [place] [address] bedtime. [facility] QUEtiapine 2020-0 Yes 100mg Take 100 [place] 100 mg 2-03 mg by ity of tablet 00:00: mouth at [place] [address] bedtime. [facility] QUEtiapine 2020-0 Yes 100mg Take 100 [place] 100 mg 2-03 mg by ity of tablet 00:00: mouth at [place] [address] bedtime. [facility] QUEtiapine 2020-0 Yes 100mg Take 100 [place] 100 mg 2-03 mg by ity of tablet 00:00: mouth at [place] [address] bedtime. [facility] QUEtiapine 2020-0 Yes 100mg Take 100 [place] 100 mg 2-03 mg by ity of tablet 00:00: mouth at [place] [address] bedtime. [facility] spironolact 2020-0 Yes 25mg Take 25 mg [facility] one 25 mg 1-22 by mouth ity of tablet 00:00: daily. [place] [facility] spironolact 2020-0 Yes 25mg Take 25 mg [facility] one 25 mg 1-22 by mouth ity of tablet 00:00: daily. [place] [facility] spironolact 2020-0 Yes 25mg Take 25 mg [facility] one 25 mg 1-22 by mouth ity of tablet 00:00: daily. [place] [facility] spironolact 2020-0 Yes 25mg Take 25 mg [facility] one 25 mg 1-22 by mouth ity of tablet 00:00: daily. [place] [facility] spironolact 2020-0 Yes 25mg Take 25 mg [facility] one 25 mg 1-22 by mouth ity of tablet 00:00: daily. [place] [facility] spironolact 2020-0 Yes 25mg Take 25 mg [facility] one 25 mg 1-22 by mouth ity of tablet 00:00: daily. [place] [facility] spironolact 2020-0 Yes 25mg Take 25 mg [facility] one 25 mg 1-22 by mouth ity of tablet 00:00: daily. [place] [facility] spironolact 2020-0 Yes 25mg Take 25 mg [facility] one 25 mg 1-22 by mouth ity of tablet 00:00: daily. [place] [facility] spironolact 2020-0 Yes 25mg Take 25 mg [facility] one 25 mg 1-22 by mouth ity of tablet 00:00: daily. [place] [facility] spironolact 2020-0 Yes 25mg Take 25 mg [facility] one 25 mg 1-22 by mouth ity of tablet 00:00: daily. [place] [facility] spironolact 2020-0 Yes 25mg Take 25 mg [facility] one 25 mg 1-22 by mouth ity of tablet 00:00: daily. [place] [facility] spironolact 2020-0 Yes 25mg Take 25 mg [facility] one 25 mg 1-22 by mouth ity of tablet 00:00: daily. [place] [facility] spironolact 2020-0 Yes 25mg Take 25 mg [facility] one 25 mg 1-22 by mouth ity of tablet 00:00: daily. [place] [facility] spironolact 2020-0 Yes 25mg Take 25 mg [facility] one 25 mg 1-22 by mouth ity of tablet 00:00: daily. [place] [facility] spironolact 2020-0 Yes 25mg Take 25 mg [facility] one 25 mg 1-22 by mouth ity of tablet 00:00: daily. [place] [facility] spironolact 2020-0 Yes 25mg Take 25 mg [facility] one 25 mg 1-22 by mouth ity of tablet 00:00: daily. [place] [facility] spironolact 2020-0 Yes 25mg Take 25 mg [facility] one 25 mg 1-22 by mouth ity of tablet 00:00: daily. [place] [facility] spironolact 2020-0 Yes 25mg Take 25 mg [facility] one 25 mg 1-22 by mouth ity of tablet 00:00: daily. [place] [facility] spironolact 2020-0 Yes 25mg Take 25 mg [facility] one 25 mg 1-22 by mouth ity of tablet 00:00: daily. [place] [facility] spironolact 2020-0 Yes 25mg Take 25 mg [facility] one 25 mg 1-22 by mouth ity of tablet 00:00: daily. [place] [facility] spironolact 2020-0 Yes 25mg Take 25 mg [facility] one 25 mg 1-22 by mouth ity of tablet 00:00: daily. [place] [facility] spironolact 2020-0 Yes 25mg Take 25 mg [facility] one 25 mg 1-22 by mouth ity of tablet 00:00: daily. [place] [facility] spironolact 2020-0 Yes 25mg Take 25 mg [facility] one 25 mg 1-22 by mouth ity of tablet 00:00: daily. [place] [facility] spironolact 2020-0 Yes 25mg Take 25 mg [facility] one 25 mg 1-22 by mouth ity of tablet 00:00: daily. [place] [facility] spironolact 2020-0 Yes 25mg Take 25 mg [facility] one 25 mg 1-22 by mouth ity of tablet 00:00: daily. [place] [facility] spironolact 2020-0 Yes 25mg Take 25 mg [facility] one 25 mg 1-22 by mouth ity of tablet 00:00: daily. [place] [facility] spironolact 2020-0 Yes 25mg Take 25 mg [facility] one 25 mg 1-22 by mouth ity of tablet 00:00: daily. [address] spironolact 2020-0 Yes 25mg Take 25 mg [facility] one 25 mg 1-22 by mouth ity of tablet 00:00: daily. [place] [facility] spironolact 2020-0 Yes 25mg Take 25 mg [facility] one 25 mg 1-22 by mouth ity of tablet 00:00: daily. [place] [facility] spironolact 2020-0 Yes 25mg Take 25 mg [facility] one 25 mg 1-22 by mouth ity of tablet 00:00: daily. [place] [facility] spironolact 2020-0 Yes 25mg Take 25 mg [facility] one 25 mg 1-22 by mouth ity of tablet 00:00: daily. [place] [facility] spironolact 2020-0 Yes 25mg Take 25 mg [facility] one 25 mg 1-22 by mouth ity of tablet 00:00: daily. [place] [facility] spironolact 2020-0 Yes 25mg Take 25 mg [facility] one 25 mg 1-22 by mouth ity of tablet 00:00: daily. [place] [facility] spironolact 2020-0 Yes 25mg Take 25 mg [facility] one 25 mg 1-22 by mouth ity of tablet 00:00: daily. [place] [facility] spironolact 2020-0 Yes 25mg Take 25 mg [facility] one 25 mg 1-22 by mouth ity of tablet 00:00: daily. [place] [facility] spironolact 2020-0 Yes 25mg Take 25 mg [facility] one 25 mg 1-22 by mouth ity of tablet 00:00: daily. [place] [facility] spironolact 2020-0 Yes 25mg Take 25 mg [facility] one 25 mg 1-22 by mouth ity of tablet 00:00: daily. [place] [facility] spironolact 2020-0 Yes 25mg Take 25 mg [facility] one 25 mg 1-22 by mouth ity of tablet 00:00: daily. [place] [facility] spironolact 2020-0 Yes 25mg Take 25 mg [facility] one 25 mg 1-22 by mouth ity of tablet 00:00: daily. [place] [facility] spironolact 2020-0 Yes 25mg Take 25 mg [facility] one 25 mg 1-22 by mouth ity of tablet 00:00: daily. [place] [facility] spironolact 2020-0 Yes 25mg Take 25 mg [facility] one 25 mg 1-22 by mouth ity of tablet 00:00: daily. [place] [facility] spironolact 2020-0 Yes 25mg Take 25 mg [facility] one 25 mg 1-22 by mouth ity of tablet 00:00: daily. [place] [facility] spironolact 2020-0 Yes 25mg Take 25 mg [facility] one 25 mg 1-22 by mouth ity of tablet 00:00: daily. [place] [facility] spironolact 2020-0 Yes 25mg Take 25 mg [facility] one 25 mg 1-22 by mouth ity of tablet 00:00: daily. [place] [facility] spironolact 2020-0 Yes 25mg Take 25 mg [facility] one 25 mg 1-22 by mouth ity of tablet 00:00: daily. [place] [facility] spironolact 2020-0 Yes 25mg Take 25 mg [facility] one 25 mg 1-22 by mouth ity of tablet 00:00: daily. [place] [facility] spironolact 2020-0 Yes 25mg Take 25 mg [facility] one 25 mg 1-22 by mouth ity of tablet 00:00: daily. [place] [facility] spironolact 2020-0 Yes 25mg Take 25 mg [facility] one 25 mg 1-22 by mouth ity of tablet 00:00: daily. [place] [facility] spironolact 2020-0 Yes 25mg Take 25 mg [facility] one 25 mg 1-22 by mouth ity of tablet 00:00: daily. [place] [facility] spironolact 2020-0 Yes 25mg Take 25 mg [facility] one 25 mg 1-22 by mouth ity of tablet 00:00: daily. [place] [facility] spironolact 2020-0 Yes 25mg Take 25 mg [facility] one 25 mg 1-22 by mouth ity of tablet 00:00: daily. [place] [facility] spironolact 2020-0 Yes 25mg Take 25 mg [facility] one 25 mg 1-22 by mouth ity of tablet 00:00: daily. [place] [facility] spironolact 2020-0 Yes 25mg Take 25 mg [facility] one 25 mg 1-22 by mouth ity of tablet 00:00: daily. [place] [facility] spironolact 2020-0 Yes 25mg Take 25 mg [facility] one 25 mg 1-22 by mouth ity of tablet 00:00: daily. [place] [facility] spironolact 2020-0 Yes 25mg Take 25 mg [facility] one 25 mg 1-22 by mouth ity of tablet 00:00: daily. [address] spironolact 2020-0 Yes 25mg Take 25 mg [facility] one 25 mg 1-22 by mouth ity of tablet 00:00: daily. [facility] spironolact 2020-0 Yes 25mg Take 25 mg [facility] one 25 mg 1-22 by mouth ity of tablet 00:00: daily. [facility] spironolact 2020-0 Yes 25mg Take 25 mg [facility] one 25 mg 1-22 by mouth ity of tablet 00:00: daily. [facility] spironolact 2020-0 Yes 25mg Take 25 mg [facility] one 25 mg 1-22 by mouth ity of tablet 00:00: daily. [facility] spironolact 2020-0 Yes 25mg Take 25 mg [facility] one 25 mg 1-22 by mouth ity of tablet 00:00: daily. [facility] spironolact 2020-0 Yes 25mg Take 25 mg [facility] one 25 mg 1-22 by mouth ity of tablet 00:00: daily. [facility] spironolact 2020-0 Yes 25mg Take 25 mg [facility] one 25 mg 1-22 by mouth ity of tablet 00:00: daily. [facility] spironolact 2020-0 Yes 25mg Take 25 mg [facility] one 25 mg 1-22 by mouth ity of tablet 00:00: daily. [facility] spironolact 2020-0 Yes 25mg Take 25 mg [facility] one 25 mg 1-22 by mouth ity of tablet 00:00: daily. [place] [facility] SERTraline 2020-0 Yes 50mg Take 50 mg U nivers 50 mg 1-16 by mouth ity of tablet 00:00: at [place] [address] bedtime. [facility] SERTraline 2020-0 Yes 50mg Take 50 mg U nivers 50 mg 1-16 by mouth ity of tablet 00:00: at [place] [address] bedtime. [facility] SERTraline 2020-0 Yes 50mg Take 50 mg U nivers 50 mg 1-16 by mouth ity of tablet 00:00: at [place] [address] bedtime. [facility] SERTraline 2020-0 Yes 50mg Take 50 mg U n[facility] 50 mg 1-16 by mouth ity of tablet 00:00: at [place] [address] bedtime. [facility] SERTraline 2020-0 Yes 50mg Take 50 mg U nivers 50 mg 1-16 by mouth ity of tablet 00:00: at [place] [address] bedtime. [facility] SERTraline 2020-0 Yes 50mg Take 50 mg U nivers 50 mg 1-16 by mouth ity of tablet 00:00: at [place] [address] bedtime. [facility] SERTraline 2020-0 Yes 50mg Take 50 mg U nivers 50 mg 1-16 by mouth ity of tablet 00:00: at [place] [address] bedtime. [facility] SERTraline 2020-0 Yes 50mg Take 50 mg U nivers 50 mg 1-16 by mouth ity of tablet 00:00: at [place] [address] bedtime. [facility] SERTraline 2020-0 Yes 50mg Take 50 mg U nivers 50 mg 1-16 by mouth ity of tablet 00:00: at [place] [address] bedtime. [facility] SERTraline 2020-0 Yes 50mg Take 50 mg U nivers 50 mg 1-16 by mouth ity of tablet 00:00: at [place] [address] bedtime. [facility] SERTraline 2020-0 Yes 50mg Take 50 mg U nivers 50 mg 1-16 by mouth ity of tablet 00:00: at [place] [address] bedtime. [facility] SERTraline 2020-0 Yes 50mg Take 50 mg U nivers 50 mg 1-16 by mouth ity of tablet 00:00: at [place] [address] bedtime. [facility] SERTraline 2020-0 Yes 50mg Take 50 mg U nivers 50 mg 1-16 by mouth ity of tablet 00:00: at [place] [address] bedtime. [facility] SERTraline 2020-0 Yes 50mg Take 50 mg U nivers 50 mg 1-16 by mouth ity of tablet 00:00: at [place] [address] bedtime. [facility] SERTraline 2020-0 Yes 50mg Take 50 mg U nivers 50 mg 1-16 by mouth ity of tablet 00:00: at [place] [address] bedtime. [facility] SERTraline 2020-0 Yes 50mg Take 50 mg U nivers 50 mg 1-16 by mouth ity of tablet 00:00: at [place] [address] bedtime. [facility] SERTraline 2020-0 Yes 50mg Take 50 mg U nivers 50 mg 1-16 by mouth ity of tablet 00:00: at [place] [address] bedtime. [facility] SERTraline 2020-0 Yes 50mg Take 50 mg U nivers 50 mg 1-16 by mouth ity of tablet 00:00: at [place] [address] bedtime. [facility] SERTraline 2020-0 Yes 50mg Take 50 mg U nivers 50 mg 1-16 by mouth ity of tablet 00:00: at [place] [address] bedtime. [facility] SERTraline 2020-0 Yes 50mg Take 50 mg U nivers 50 mg 1-16 by mouth ity of tablet 00:00: at [place] [address] bedtime. [facility] SERTraline 2020-0 Yes 50mg Take 50 mg U nivers 50 mg 1-16 by mouth ity of tablet 00:00: at [place] [address] bedtime. [facility] SERTraline 2020-0 Yes 50mg Take 50 mg U nivers 50 mg 1-16 by mouth ity of tablet 00:00: at [place] [address] bedtime. [facility] SERTraline 2020-0 Yes 50mg Take 50 mg U nivers 50 mg 1-16 by mouth ity of tablet 00:00: at [place] [address] bedtime. [facility] SERTraline 2020-0 Yes 50mg Take 50 mg U n[facility] 50 mg 1-16 by mouth ity of tablet 00:00: at [place] [address] bedtime. [facility] SERTraline 2020-0 Yes 50mg Take 50 mg U n[facility] 50 mg 1-16 by mouth ity of tablet 00:00: at [place] [address] bedtime. [facility] SERTraline 2020-0 Yes 50mg Take 50 mg U nivers 50 mg 1-16 by mouth ity of tablet 00:00: at [place] [address] bedtime. [facility] SERTraline 2020-0 Yes 50mg Take 50 mg U nivers 50 mg 1-16 by mouth ity of tablet 00:00: at [place] [address] bedtime. [facility] SERTraline 2020-0 Yes 50mg Take 50 mg U nivers 50 mg 1-16 by mouth ity of tablet 00:00: at [place] [address] bedtime. [facility] SERTraline 2020-0 Yes 50mg Take 50 mg U nivers 50 mg 1-16 by mouth ity of tablet 00:00: at [place] [address] bedtime. [facility] SERTraline 2020-0 Yes 50mg Take 50 mg U nivers 50 mg 1-16 by mouth ity of tablet 00:00: at [place] [address] bedtime. [facility] SERTraline 2020-0 Yes 50mg Take 50 mg U nivers 50 mg 1-16 by mouth ity of tablet 00:00: at [place] [address] bedtime. [facility] SERTraline 2020-0 Yes 50mg Take 50 mg U nivers 50 mg 1-16 by mouth ity of tablet 00:00: at [place] [address] bedtime. [facility] SERTraline 2020-0 Yes 50mg Take 50 mg U n[facility] 50 mg 1-16 by mouth ity of tablet 00:00: at [place] [address] bedtime. [facility] SERTraline 2020-0 Yes 50mg Take 50 mg U nivers 50 mg 1-16 by mouth ity of tablet 00:00: at [place] [address] bedtime. [facility] SERTraline 2020-0 Yes 50mg Take 50 mg U nivers 50 mg 1-16 by mouth ity of tablet 00:00: at [place] [address] bedtime. [facility] SERTraline 2020-0 Yes 50mg Take 50 mg U nivers 50 mg 1-16 by mouth ity of tablet 00:00: at [place] [address] bedtime. [facility] SERTraline 2020-0 Yes 50mg Take 50 mg U nivers 50 mg 1-16 by mouth ity of tablet 00:00: at [place] [address] bedtime. [facility] SERTraline 2020-0 Yes 50mg Take 50 mg U n[facility] 50 mg 1-16 by mouth ity of tablet 00:00: at [place] [address] bedtime. [facility] SERTraline 2020-0 Yes 50mg Take 50 mg U nivers 50 mg 1-16 by mouth ity of tablet 00:00: at [place] [address] bedtime. [facility] SERTraline 2020-0 Yes 50mg Take 50 mg U nivers 50 mg 1-16 by mouth ity of tablet 00:00: at [place] [address] bedtime. [facility] SERTraline 2020-0 Yes 50mg Take 50 mg U n[facility] 50 mg 1-16 by mouth ity of tablet 00:00: at [place] [address] bedtime. [facility] SERTraline 2020-0 Yes 50mg Take 50 mg U [facility] 50 mg 1-16 by mouth ity of tablet 00:00: at [place] [address] bedtime. [facility] SERTraline 2020-0 Yes 50mg Take 50 mg U nivers 50 mg 1-16 by mouth ity of tablet 00:00: at [place] [address] bedtime. [facility] SERTraline 2020-0 Yes 50mg Take 50 mg U nivers 50 mg 1-16 by mouth ity of tablet 00:00: at [place] [address] bedtime. [facility] SERTraline 2020-0 Yes 50mg Take 50 mg U nivers 50 mg 1-16 by mouth ity of tablet 00:00: at [place] 00 bedtime. [facility] SERTraline 2020-0 Yes 50mg Take 50 mg U nivers 50 mg 1-16 by mouth ity of tablet 00:00: at [place] [address] bedtime. [facility] SERTraline 2020-0 Yes 50mg Take 50 mg U nivers 50 mg 1-16 by mouth ity of tablet 00:00: at [place] [address] bedtime. [facility] SERTraline 2020-0 Yes 50mg Take 50 mg U [facility] 50 mg 1-16 by mouth ity of tablet 00:00: at [place] [address] bedtime. [facility] SERTraline 2020-0 Yes 50mg Take 50 mg U nivers 50 mg 1-16 by mouth ity of tablet 00:00: at [place] [address] bedtime. [facility] SERTraline 2020-0 Yes 50mg Take 50 mg U nivers 50 mg 1-16 by mouth ity of tablet 00:00: at [place] [address] bedtime. [facility] SERTraline 2020-0 Yes 50mg Take 50 mg U nivers 50 mg 1-16 by mouth ity of tablet 00:00: at [place] [address] bedtime. [facility] SERTraline 2020-0 Yes 50mg Take 50 mg U nivers 50 mg 1-16 by mouth ity of tablet 00:00: at [place] [address] bedtime. [facility] SERTraline 2020-0 Yes 50mg Take 50 mg U nivers 50 mg 1-16 by mouth ity of tablet 00:00: at [place] [address] bedtime. [facility] SERTraline 2020-0 Yes 50mg Take 50 mg U nivers 50 mg 1-16 by mouth ity of tablet 00:00: at [place] [address] bedtime. [facility] SERTraline 2020-0 Yes 50mg Take 50 mg U nivers 50 mg 1-16 by mouth ity of tablet 00:00: at [place] [address] bedtime. [facility] SERTraline 2020-0 Yes 50mg Take 50 mg U nivers 50 mg 1-16 by mouth ity of tablet 00:00: at [place] [address] bedtime. [facility] SERTraline 2020-0 Yes 50mg Take 50 mg U nivers 50 mg 1-16 by mouth ity of tablet 00:00: at [place] [address] bedtime. [facility] SERTraline 2020-0 Yes 50mg Take 50 mg U nivers 50 mg 1-16 by mouth ity of tablet 00:00: at [place] [address] bedtime. [facility] SERTraline 2020-0 Yes 50mg Take 50 mg U nivers 50 mg 1-16 by mouth ity of tablet 00:00: at [place] [address] bedtime. [facility] SERTraline 2020-0 Yes 50mg Take 50 mg U nivers 50 mg 1-16 by mouth ity of tablet 00:00: at [place] [address] bedtime. [facility] SERTraline 2020-0 Yes 50mg Take 50 mg U nivers 50 mg 1-16 by mouth ity of tablet 00:00: at [place] [address] bedtime. [facility] SERTraline 2020-0 Yes 50mg Take 50 mg U nivers 50 mg 1-16 by mouth ity of tablet 00:00: at [place] [address] bedtime. [facility] SERTraline 2020-0 Yes 50mg Take 50 mg U nivers 50 mg 1-16 by mouth ity of tablet 00:00: at [place] [address] bedtime. [facility] SERTraline 2020-0 Yes 50mg Take 50 mg U nivers 50 mg 1-16 by mouth ity of tablet 00:00: at [place] [address] bedtime. [facility] methocarbam 2020-0 Yes 750mg Take 750 U nivers [place] 750 mg 1-07 mg by ity of tablet 00:00: mouth [place] daily. [facility] venlafaxine 2020-0 Yes 75mg Take 75 mg [facility] XR 75 mg 24 1-07 by mouth ity of hr capsule 00:00: every [place] [address] evening. [facility] methocarbam 2020-0 Yes 750mg Take 750 U nivers [place] 750 mg 1-07 mg by ity of tablet 00:00: mouth [place] daily. [facility] venlafaxine 2020-0 Yes 75mg Take 75 mg [facility] XR 75 mg 24 1-07 by mouth ity of hr capsule 00:00: every [place] [address] evening. [facility] methocarbam 2020-0 Yes 750mg Take 750 U nivers ol 750 mg 1-07 mg by ity of tablet 00:00: mouth [place] daily. [facility] venlafaxine 2020-0 Yes 75mg Take 75 mg [facility] XR 75 mg 24 1-07 by mouth ity of hr capsule 00:00: every [place] [address] evening. [facility] methocarbam 2020-0 Yes 750mg Take 750 U nivers ol 750 mg 1-07 mg by ity of tablet 00:00: mouth [place] 00 daily. [facility] venlafaxine 2020-0 Yes 75mg Take 75 mg [facility] XR 75 mg 24 1-07 by mouth ity of hr capsule 00:00: every [place] 00 evening. [facility] methocarbam 2020-0 Yes 750mg Take 750 U nivers ol 750 mg 1-07 mg by ity of tablet 00:00: mouth [place] 00 daily. [facility] venlafaxine 2020-0 Yes 75mg Take 75 mg [facility] XR 75 mg 24 1-07 by mouth ity of hr capsule 00:00: every [place] 00 evening. [facility] methocarbam 2020-0 Yes 750mg Take 750 U nivers ol 750 mg 1-07 mg by ity of tablet 00:00: mouth 00 daily. [facility] venlafaxine 2020-0 Yes 75mg Take 75 mg [facility] XR 75 mg 24 1-07 by mouth ity of hr capsule 00:00: every [place] 00 evening. [facility] methocarbam 2020-0 Yes 750mg Take 750 U nivers ol 750 mg 1-07 mg by ity of tablet 00:00: mouth [place] 00 daily. [facility] venlafaxine 2020-0 Yes 75mg Take 75 mg [facility] XR 75 mg 24 1-07 by mouth ity of hr capsule 00:00: every [place] 00 evening. [facility] methocarbam 2020-0 Yes 750mg Take 750 U nivers ol 750 mg 1-07 mg by ity of tablet 00:00: mouth [place] 00 daily. [facility] venlafaxine 2020-0 Yes 75mg Take 75 mg [facility] XR 75 mg 24 1-07 by mouth ity of hr capsule 00:00: every [place] 00 evening. [facility] methocarbam 2020-0 Yes 750mg Take 750 U nivers ol 750 mg 1-07 mg by ity of tablet 00:00: mouth [place] 00 daily. [facility] venlafaxine 2020-0 Yes 75mg Take 75 mg [facility] XR 75 mg 24 1-07 by mouth ity of hr capsule 00:00: every [place] 00 evening. [facility] methocarbam 2020-0 Yes 750mg Take 750 U nivers ol 750 mg 1-07 mg by ity of tablet 00:00: mouth [place] 00 daily. [facility] venlafaxine 2020-0 Yes 75mg Take 75 mg [facility] XR 75 mg 24 1-07 by mouth ity of hr capsule 00:00: every [place] 00 evening. [facility] methocarbam 2020-0 Yes 750mg Take 750 U nivers ol 750 mg 1-07 mg by ity of tablet 00:00: mouth [place] 00 daily. [facility] venlafaxine 2020-0 Yes 75mg Take 75 mg [facility] XR 75 mg 24 1-07 by mouth ity of hr capsule 00:00: every [place] 00 evening. [facility] methocarbam 2020-0 Yes 750mg Take 750 U nivers ol 750 mg 1-07 mg by ity of tablet 00:00: mouth [place] 00 daily. [facility] venlafaxine 2020-0 Yes 75mg Take 75 mg [facility] XR 75 mg 24 1-07 by mouth ity of hr capsule 00:00: every 00 evening. [facility] methocarbam 2020-0 Yes 750mg Take 750 U nivers ol 750 mg 1-07 mg by ity of tablet 00:00: mouth 00 daily. [facility] venlafaxine 2020-0 Yes 75mg Take 75 mg [facility] XR 75 mg 24 1-07 by mouth ity of hr capsule 00:00: every 00 evening. [facility] methocarbam 2020-0 Yes 750mg Take 750 U nivers ol 750 mg 1-07 mg by ity of tablet 00:00: mouth 00 daily. [facility] venlafaxine 2020-0 Yes 75mg Take 75 mg [facility] XR 75 mg 24 1-07 by mouth ity of hr capsule 00:00: every 00 evening. [facility] methocarbam 2020-0 Yes 750mg Take 750 U nivers ol 750 mg 1-07 mg by ity of tablet 00:00: mouth [place] 00 daily. [facility] venlafaxine 2020-0 Yes 75mg Take 75 mg [facility] XR 75 mg 24 1-07 by mouth ity of hr capsule 00:00: every 00 evening. [facility] methocarbam 2020-0 Yes 750mg Take 750 U nivers ol 750 mg 1-07 mg by ity of tablet 00:00: mouth [place] 00 daily. [facility] venlafaxine 2020-0 Yes 75mg Take 75 mg [facility] XR 75 mg 24 1-07 by mouth ity of hr capsule 00:00: every [place] 00 evening. [facility] methocarbam 2020-0 Yes 750mg Take 750 U nivers ol 750 mg 1-07 mg by ity of tablet 00:00: mouth [place] 00 daily. [facility] venlafaxine 2020-0 Yes 75mg Take 75 mg [facility] XR 75 mg 24 1-07 by mouth ity of hr capsule 00:00: every 00 evening. [facility] methocarbam 2020-0 Yes 750mg Take 750 U nivers ol 750 mg 1-07 mg by ity of tablet 00:00: mouth 00 daily. [facility] venlafaxine 2020-0 Yes 75mg Take 75 mg [facility] XR 75 mg 24 1-07 by mouth ity of hr capsule 00:00: every 00 evening. [facility] methocarbam 2020-0 Yes 750mg Take 750 U nivers ol 750 mg 1-07 mg by ity of tablet 00:00: mouth 00 daily. [facility] venlafaxine 2020-0 Yes 75mg Take 75 mg [facility] XR 75 mg 24 1-07 by mouth ity of hr capsule 00:00: every 00 evening. [facility] methocarbam 2020-0 Yes 750mg Take 750 U nivers ol 750 mg 1-07 mg by ity of tablet 00:00: mouth 00 daily. [facility] venlafaxine 2020-0 Yes 75mg Take 75 mg [facility] XR 75 mg 24 1-07 by mouth ity of hr capsule 00:00: every [place] 00 evening. [facility] methocarbam 2020-0 Yes 750mg Take 750 U nivers ol 750 mg 1-07 mg by ity of tablet 00:00: mouth 00 daily. [facility] venlafaxine 2020-0 Yes 75mg Take 75 mg [facility] XR 75 mg 24 1-07 by mouth ity of hr capsule 00:00: every 00 evening. [facility] methocarbam 2020-0 Yes 750mg Take 750 U nivers ol 750 mg 1-07 mg by ity of tablet 00:00: mouth 00 daily. [facility] venlafaxine 2020-0 Yes 75mg Take 75 mg [facility] XR 75 mg 24 1-07 by mouth ity of hr capsule 00:00: every 00 evening. [facility] methocarbam 2020-0 Yes 750mg Take 750 U nivers ol 750 mg 1-07 mg by ity of tablet 00:00: mouth 00 daily. [facility] venlafaxine 2020-0 Yes 75mg Take 75 mg [facility] XR 75 mg 24 1-07 by mouth ity of hr capsule 00:00: every 00 evening. [facility] methocarbam 2020-0 Yes 750mg Take 750 U nivers ol 750 mg 1-07 mg by ity of tablet 00:00: mouth 00 daily. [facility] venlafaxine 2020-0 Yes 75mg Take 75 mg [facility] XR 75 mg 24 1-07 by mouth ity of hr capsule 00:00: every 00 evening. [facility] methocarbam 2020-0 Yes 750mg Take 750 U nivers ol 750 mg 1-07 mg by ity of tablet 00:00: mouth 00 daily. [facility] venlafaxine 2020-0 Yes 75mg Take 75 mg [facility] XR 75 mg 24 1-07 by mouth ity of hr capsule 00:00: every [place] 00 evening. [facility] methocarbam 2020-0 Yes 750mg Take 750 U nivers ol 750 mg 1-07 mg by ity of tablet 00:00: mouth [place] 00 daily. [facility] venlafaxine 2020-0 Yes 75mg Take 75 mg [facility] XR 75 mg 24 1-07 by mouth ity of hr capsule 00:00: every [place] 00 evening. [facility] methocarbam 2020-0 Yes 750mg Take 750 U nivers ol 750 mg 1-07 mg by [facility]y of tablet 00:00: mouth [place] 00 daily. [facility] venlafaxine 2020-0 Yes 75mg Take 75 mg [facility] XR 75 mg 24 1-07 by mouth ity of hr capsule 00:00: every [place] 00 evening. [facility] methocarbam 2020-0 Yes 750mg Take 750 U nivers ol 750 mg 1-07 mg by ity of tablet 00:00: mouth 00 daily. [facility] venlafaxine 2020-0 Yes 75mg Take 75 mg [facility] XR 75 mg 24 1-07 by mouth ity of hr capsule 00:00: every [place] 00 evening. [facility] methocarbam 2020-0 Yes 750mg Take 750 U nivers ol 750 mg 1-07 mg by ity of tablet 00:00: mouth 00 daily. [facility] venlafaxine 2020-0 Yes 75mg Take 75 mg [facility] XR 75 mg 24 1-07 by mouth ity of hr capsule 00:00: every [place] 00 evening. [facility] methocarbam 2020-0 Yes 750mg Take 750 U nivers ol 750 mg 1-07 mg by ity of tablet 00:00: mouth [place] 00 daily. [facility] venlafaxine 2020-0 Yes 75mg Take 75 mg [facility] XR 75 mg 24 1-07 by mouth ity of hr capsule 00:00: every [place] 00 evening. [facility] methocarbam 2020-0 Yes 750mg Take 750 U nivers ol 750 mg 1-07 mg by ity of tablet 00:00: mouth 00 daily. [facility] venlafaxine 2020-0 Yes 75mg Take 75 mg [facility] XR 75 mg 24 1-07 by mouth ity of hr capsule 00:00: every 00 evening. [facility] methocarbam 2020-0 Yes 750mg Take 750 U nivers ol 750 mg 1-07 mg by ity of tablet 00:00: mouth 00 daily. [facility] venlafaxine 2020-0 Yes 75mg Take 75 mg [facility] XR 75 mg 24 1-07 by mouth ity of hr capsule 00:00: every 00 evening. [facility] methocarbam 2020-0 Yes 750mg Take 750 U nivers ol 750 mg 1-07 mg by ity of tablet 00:00: mouth 00 daily. [facility] venlafaxine 2020-0 Yes 75mg Take 75 mg [facility] XR 75 mg 24 1-07 by mouth ity of hr capsule 00:00: every [place] 00 evening. [facility] methocarbam 2020-0 Yes 750mg Take 750 U nivers ol 750 mg 1-07 mg by ity of tablet 00:00: mouth 00 daily. [facility] venlafaxine 2020-0 Yes 75mg Take 75 mg [facility] XR 75 mg 24 1-07 by mouth ity of hr capsule 00:00: every [place] 00 evening. [facility] methocarbam 2020-0 Yes 750mg Take 750 U nivers ol 750 mg 1-07 mg by ity of tablet 00:00: mouth [place] 00 daily. [facility] venlafaxine 2020-0 Yes 75mg Take 75 mg [facility] XR 75 mg 24 1-07 by mouth ity of hr capsule 00:00: every [place] 00 evening. [facility] methocarbam 2020-0 Yes 750mg Take 750 [facility] nivers ol 750 mg 1-07 mg by ity of tablet 00:00: mouth 00 daily. [facility] venlafaxine 2020-0 Yes 75mg Take 75 mg [facility] XR 75 mg 24 1-07 by mouth ity of hr capsule 00:00: every [place] 00 evening. [facility] methocarbam 2020-0 Yes 750mg Take 750 [facility] nivers ol 750 mg 1-07 mg by ity of tablet 00:00: mouth 00 daily. [facility] venlafaxine 2020-0 Yes 75mg Take 75 mg [facility] XR 75 mg 24 1-07 by mouth ity of hr capsule 00:00: every [place] 00 evening. [facility] methocarbam 2020-0 Yes 750mg Take 750 U nivers ol 750 mg 1-07 mg by ity of tablet 00:00: mouth [place] 00 daily. [facility] venlafaxine 2020-0 Yes 75mg Take 75 mg [facility] XR 75 mg 24 1-07 by mouth ity of hr capsule 00:00: every [place] 00 evening. [facility] methocarbam 2020-0 Yes 750mg Take 750 [facility] nivers ol 750 mg 1-07 mg by ity of tablet 00:00: mouth [place] 00 daily. [facility] venlafaxine 2020-0 Yes 75mg Take 75 mg [facility] XR 75 mg 24 1-07 by mouth ity of hr capsule 00:00: every [place] 00 evening. [facility] methocarbam 2020-0 Yes 750mg Take 750 [facility] nivers ol 750 mg 1-07 mg by ity of tablet 00:00: mouth [place] 00 daily. [facility] venlafaxine 2020-0 Yes 75mg Take 75 mg [facility] XR 75 mg 24 1-07 by mouth ity of hr capsule 00:00: every [place] 00 evening. [facility] methocarbam 2020-0 Yes 750mg Take 750 U nivers ol 750 mg 1-07 mg by ity of tablet 00:00: mouth [place] 00 daily. [facility] venlafaxine 2020-0 Yes 75mg Take 75 mg [facility] XR 75 mg 24 1-07 by mouth ity of hr capsule 00:00: every [place] 00 evening. [facility] methocarbam 2020-0 Yes 750mg Take 750 U nivers ol 750 mg 1-07 mg by ity of tablet 00:00: mouth [place] 00 daily. [facility] venlafaxine 2020-0 Yes 75mg Take 75 mg [facility] XR 75 mg 24 1-07 by mouth ity of hr capsule 00:00: every [place] 00 evening. [facility] methocarbam 2020-0 Yes 750mg Take 750 U nivers ol 750 mg 1-07 mg by ity of tablet 00:00: mouth [place] 00 daily. [facility] venlafaxine 2020-0 Yes 75mg Take 75 mg [facility] XR 75 mg 24 1-07 by mouth ity of hr capsule 00:00: every [place] 00 evening. [facility] methocarbam 2020-0 Yes 750mg Take 750 U nivers ol 750 mg 1-07 mg by ity of tablet 00:00: mouth [place] 00 daily. [facility] venlafaxine 2020-0 Yes 75mg Take 75 mg [facility] XR 75 mg 24 1-07 by mouth ity of hr capsule 00:00: every [place] 00 evening. [facility] methocarbam 2020-0 Yes 750mg Take 750 U nivers ol 750 mg 1-07 mg by ity of tablet 00:00: mouth 00 daily. [facility] venlafaxine 2020-0 Yes 75mg Take 75 mg [facility] XR 75 mg 24 1-07 by mouth ity of hr capsule 00:00: every 00 evening. [facility] methocarbam 2020-0 Yes 750mg Take 750 U nivers ol 750 mg 1-07 mg by ity of tablet 00:00: mouth 00 daily. [facility] venlafaxine 2020-0 Yes 75mg Take 75 mg [facility] XR 75 mg 24 1-07 by mouth ity of hr capsule 00:00: every 00 evening. [facility] methocarbam 2020-0 Yes 750mg Take 750 U nivers ol 750 mg 1-07 mg by ity of tablet 00:00: mouth 00 daily. [facility] venlafaxine 2020-0 Yes 75mg Take 75 mg [facility] XR 75 mg 24 1-07 by mouth ity of hr capsule 00:00: every 00 evening. [facility] methocarbam 2020-0 Yes 750mg Take 750 U nivers ol 750 mg 1-07 mg by ity of tablet 00:00: mouth 00 daily. [facility] venlafaxine 2020-0 Yes 75mg Take 75 mg [facility] XR 75 mg 24 1-07 by mouth ity of hr capsule 00:00: every 00 evening. [facility] methocarbam 2020-0 Yes 750mg Take 750 U nivers ol 750 mg 1-07 mg by ity of tablet 00:00: mouth 00 daily. [facility] venlafaxine 2020-0 Yes 75mg Take 75 mg [facility] XR 75 mg 24 1-07 by mouth ity of hr capsule 00:00: every 00 evening. [facility] methocarbam 2020-0 Yes 750mg Take 750 U nivers ol 750 mg 1-07 mg by ity of tablet 00:00: mouth 00 daily. [facility] venlafaxine 2020-0 Yes 75mg Take 75 mg [facility] XR 75 mg 24 1-07 by mouth ity of hr capsule 00:00: every [place] 00 evening. [facility] methocarbam 2020-0 Yes 750mg Take 750 U nivers ol 750 mg 1-07 mg by ity of tablet 00:00: mouth [place] 00 daily. [facility] venlafaxine 2020-0 Yes 75mg Take 75 mg [facility] XR 75 mg 24 1-07 by mouth ity of hr capsule 00:00: every [place] 00 evening. [facility] methocarbam 2020-0 Yes 750mg Take 750 U nivers ol 750 mg 1-07 mg by ity of tablet 00:00: mouth [place] 00 daily. [facility] venlafaxine 2020-0 Yes 75mg Take 75 mg [facility] XR 75 mg 24 1-07 by mouth ity of hr capsule 00:00: every [place] 00 evening. [facility] methocarbam 2020-0 Yes 750mg Take 750 U nivers ol 750 mg 1-07 mg by ity of tablet 00:00: mouth [place] 00 daily. [facility] venlafaxine 2020-0 Yes 75mg Take 75 mg [facility] XR 75 mg 24 1-07 by mouth ity of hr capsule 00:00: every [place] 00 evening. [facility] methocarbam 2020-0 Yes 750mg Take 750 U nivers ol 750 mg 1-07 mg by ity of tablet 00:00: mouth [place] 00 daily. [facility] venlafaxine 2020-0 Yes 75mg Take 75 mg [facility] XR 75 mg 24 1-07 by mouth ity of hr capsule 00:00: every [place] 00 evening. [facility] methocarbam 2020-0 Yes 750mg Take 750 U nivers ol 750 mg 1-07 mg by ity of tablet 00:00: mouth [place] 00 daily. [facility] venlafaxine 2020-0 Yes 75mg Take 75 mg [facility] XR 75 mg 24 1-07 by mouth ity of hr capsule 00:00: every [place] 00 evening. [facility] methocarbam 2020-0 Yes 750mg Take 750 U nivers ol 750 mg 1-07 mg by ity of tablet 00:00: mouth [place] 00 daily. [facility] venlafaxine 2020-0 Yes 75mg Take 75 mg [facility] XR 75 mg 24 1-07 by mouth ity of hr capsule 00:00: every [place] 00 evening. [facility] methocarbam 2020-0 Yes 750mg Take 750 U nivers ol 750 mg 1-07 mg by ity of tablet 00:00: mouth [place] 00 daily. [facility] venlafaxine 2020-0 Yes 75mg Take 75 mg [facility] XR 75 mg 24 1-07 by mouth ity of hr capsule 00:00: every [place] 00 evening. [facility] methocarbam 2020-0 Yes 750mg Take 750 U nivers ol 750 mg 1-07 mg by ity of tablet 00:00: mouth 00 daily. [facility] venlafaxine 2020-0 Yes 75mg Take 75 mg [facility] XR 75 mg 24 1-07 by mouth ity of hr capsule 00:00: every [place] 00 evening. [facility] methocarbam 2020-0 Yes 750mg Take 750 U nivers ol 750 mg 1-07 mg by ity of tablet 00:00: mouth 00 daily. [facility] venlafaxine 2020-0 Yes 75mg Take 75 mg [facility] XR 75 mg 24 1-07 by mouth ity of hr capsule 00:00: every [place] 00 evening. [facility] methocarbam 2020-0 Yes 750mg Take 750 U nivers ol 750 mg 1-07 mg by ity of tablet 00:00: mouth [place] 00 daily. [facility] venlafaxine 2020-0 Yes 75mg Take 75 mg [facility] XR 75 mg 24 1-07 by mouth ity of hr capsule 00:00: every [place] 00 evening. [facility] methocarbam 2020-0 Yes 750mg Take 750 U nivers ol 750 mg 1-07 mg by ity of tablet 00:00: mouth 00 daily. [facility] venlafaxine 2020-0 Yes 75mg Take 75 mg [facility] XR 75 mg 24 1-07 by mouth ity of hr capsule 00:00: every [place] 00 evening. [facility] methocarbam 2020-0 Yes 750mg Take 750 U nivers ol 750 mg 1-07 mg by ity of tablet 00:00: mouth 00 daily. [facility] venlafaxine 2020-0 Yes 75mg Take 75 mg [facility] XR 75 mg 24 1-07 by mouth ity of hr capsule 00:00: every [place] 00 evening. [facility] methocarbam 2020-0 Yes 750mg Take 750 U nivers ol 750 mg 1-07 mg by ity of tablet 00:00: mouth [place] 00 daily. [facility] venlafaxine 2020-0 Yes 75mg Take 75 mg [facility] XR 75 mg 24 1-07 by mouth ity of hr capsule 00:00: every [place] evening. [facility] methocarbam 0 Yes 750mg Take 750 U nivers ol 750 mg 1-07 mg by ity of tablet 00:00: mouth daily. [facility] venlafaxine 0 Yes 75mg Take 75 mg [facility] XR 75 mg 24 1-07 by mouth ity of hr capsule 00:00: every [place] evening. [facility] atorvastati 2018-10 Yes 20mg Take 20 mg [facility] n 20 mg 2-27 by mouth ity of tablet 00:00: daily. [facility] atorvastati 2018-10 Yes 20mg Take 20 mg [facility] n 20 mg 2-27 by mouth ity of tablet 00:00: daily. [facility] atorvastati 2018-10 Yes 20mg Take 20 mg [facility] n 20 mg 2-27 by mouth ity of tablet 00:00: daily. [facility] atorvastati 2018-10 Yes 20mg Take 20 mg [facility] n 20 mg 2-27 by mouth ity of tablet 00:00: daily. [facility] atorvastati 2018-10 Yes 20mg Take 20 mg [facility] n 20 mg 2-27 by mouth ity of tablet 00:00: daily. [facility] atorvastati 2018-10 Yes 20mg Take 20 mg [facility] n 20 mg 2-27 by mouth ity of tablet 00:00: daily. [facility] atorvastati 2018-10 Yes 20mg Take 20 mg [facility] n 20 mg 2-27 by mouth ity of tablet 00:00: daily. [facility] atorvastati 2018-10 Yes 20mg Take 20 mg [facility] n 20 mg 2-27 by mouth ity of tablet 00:00: daily. [facility] atorvastati 2018-10 Yes 20mg Take 20 mg [facility] n 20 mg 2-27 by mouth ity of tablet 00:00: daily. [facility] atorvastati 2018-10 Yes 20mg Take 20 mg [facility] n 20 mg 2-27 by mouth ity of tablet 00:00: daily. [facility] atorvastati 2018-10 Yes 20mg Take 20 mg [facility] n 20 mg 2-27 by mouth ity of tablet 00:00: daily. [facility] atorvastati 2018-10 Yes 20mg Take 20 mg [facility] n 20 mg 2-27 by mouth ity of tablet 00:00: daily. [facility] atorvasta 2018-10 Yes 20mg Take 20 mg [facility] n 20 mg 2-27 by mouth ity of tablet 00:00: daily. [facility] atorvasta 2018-10 Yes 20mg Take 20 mg [facility] n 20 mg 2-27 by mouth ity of tablet 00:00: daily. [facility] atorvasta 2018-10 Yes 20mg Take 20 mg [facility] n 20 mg 2-27 by mouth ity of tablet 00:00: daily. [facility] atorvasta 2018-10 Yes 20mg Take 20 mg [facility] n 20 mg 2-27 by mouth ity of tablet 00:00: daily. [facility] atorvasta 2018-10 Yes 20mg Take 20 mg [facility] n 20 mg 2-27 by mouth ity of tablet 00:00: daily. [facility] atorvasta 2018-10 Yes 20mg Take 20 mg [facility] n 20 mg 2-27 by mouth ity of tablet 00:00: daily. [facility] atorvasta 2018-10 Yes 20mg Take 20 mg [facility] n 20 mg 2-27 by mouth ity of tablet 00:00: daily. [facility] atorvasta 2018-10 Yes 20mg Take 20 mg [facility] n 20 mg 2-27 by mouth ity of tablet 00:00: daily. [facility] atorvasta 2018-10 Yes 20mg Take 20 mg [facility] n 20 mg 2-27 by mouth ity of tablet 00:00: daily. [facility] atorvasta 2018-10 Yes 20mg Take 20 mg [facility] n 20 mg 2-27 by mouth ity of tablet 00:00: daily. [facility] atorvasta 2018-10 Yes 20mg Take 20 mg [facility] n 20 mg 2-27 by mouth ity of tablet 00:00: daily. [facility] atorvasta 2018-10 Yes 20mg Take 20 mg [facility] n 20 mg 2-27 by mouth ity of tablet 00:00: daily. [facility] atorvasta 2018-10 Yes 20mg Take 20 mg [facility] n 20 mg 2-27 by mouth ity of tablet 00:00: daily. [facility] atorvasta 2018-10 Yes 20mg Take 20 mg [facility] n 20 mg 2-27 by mouth ity of tablet 00:00: daily. [facility] atorvasta 2018-10 Yes 20mg Take 20 mg [facility] n 20 mg 2-27 by mouth ity of tablet 00:00: daily. [facility] atorvasta 2018-10 Yes 20mg Take 20 mg [facility] n 20 mg 2-27 by mouth ity of tablet 00:00: daily. [facility] atorvasta 2018-10 Yes 20mg Take 20 mg [facility] n 20 mg 2-27 by mouth ity of tablet 00:00: daily. [facility] atorvasta 2018-10 Yes 20mg Take 20 mg [facility] n 20 mg 2-27 by mouth ity of tablet 00:00: daily. [facility] atorvasta 2018-10 Yes 20mg Take 20 mg [facility] n 20 mg 2-27 by mouth ity of tablet 00:00: daily. [facility] atorvasta 2018-10 Yes 20mg Take 20 mg [facility] n 20 mg 2-27 by mouth ity of tablet 00:00: daily. [facility] atorvasta 2018-10 Yes 20mg Take 20 mg [facility] n 20 mg 2-27 by mouth ity of tablet 00:00: daily. [facility] atorvasta 2018-10 Yes 20mg Take 20 mg [facility] n 20 mg 2-27 by mouth ity of tablet 00:00: daily. [facility] atorvasta 2018-10 Yes 20mg Take 20 mg [facility] n 20 mg 2-27 by mouth ity of tablet 00:00: daily. [facility] atorvasta 2018-10 Yes 20mg Take 20 mg [facility] n 20 mg 2-27 by mouth ity of tablet 00:00: daily. [facility] atorvasta 2018-10 Yes 20mg Take 20 mg [facility] n 20 mg 2-27 by mouth ity of tablet 00:00: daily. [facility] atorvasta 2018-10 Yes 20mg Take 20 mg [facility] n 20 mg 2-27 by mouth ity of tablet 00:00: daily. [facility] atorvasta 2018-10 Yes 20mg Take 20 mg [facility] n 20 mg 2-27 by mouth ity of tablet 00:00: daily. [facility] atorvasta 2018-10 Yes 20mg Take 20 mg [facility] n 20 mg 2-27 by mouth ity of tablet 00:00: daily. [facility] atorvasta 2018-10 Yes 20mg Take 20 mg [facility] n 20 mg 2-27 by mouth ity of tablet 00:00: daily. [facility] atorvasta 2018-10 Yes 20mg Take 20 mg [facility] n 20 mg 2-27 by mouth ity of tablet 00:00: daily. [facility] atorvasta 2018-10 Yes 20mg Take 20 mg [facility] n 20 mg 2-27 by mouth ity of tablet 00:00: daily. [facility] atorvasta 2018-10 Yes 20mg Take 20 mg [facility] n 20 mg 2-27 by mouth ity of tablet 00:00: daily. [facility] atorvasta 2018-10 Yes 20mg Take 20 mg [facility] n 20 mg 2-27 by mouth ity of tablet 00:00: daily. [facility] atorvasta 2018-10 Yes 20mg Take 20 mg [facility] n 20 mg 2-27 by mouth ity of tablet 00:00: daily. [facility] atorvasta 2018-10 Yes 20mg Take 20 mg [facility] n 20 mg 2-27 by mouth ity of tablet 00:00: daily. [facility] atorvasta 2018-10 Yes 20mg Take 20 mg [facility] n 20 mg 2-27 by mouth ity of tablet 00:00: daily. [facility] atorvasta 2018-10 Yes 20mg Take 20 mg [facility] n 20 mg 2-27 by mouth ity of tablet 00:00: daily. [facility] atorvasta 2018-10 Yes 20mg Take 20 mg [facility] n 20 mg 2-27 by mouth ity of tablet 00:00: daily. [facility] atorvasta 2018-10 Yes 20mg Take 20 mg [facility] n 20 mg 2-27 by mouth ity of tablet 00:00: daily. [facility] atorvasta 2018-10 Yes 20mg Take 20 mg [facility] n 20 mg 2-27 by mouth ity of tablet 00:00: daily. [facility] atorvasta 2018-10 Yes 20mg Take 20 mg [facility] n 20 mg 2-27 by mouth ity of tablet 00:00: daily. [facility] atorvasta 2018-10 Yes 20mg Take 20 mg [facility] n 20 mg 2-27 by mouth ity of tablet 00:00: daily. [facility] atorvasta 2018-10 Yes 20mg Take 20 mg [facility] n 20 mg 2-27 by mouth ity of tablet 00:00: daily. [facility] atorvastati 2018-10 Yes 20mg Take 20 mg [facility] n 20 mg 2-27 by mouth ity of tablet 00:00: daily. [facility] atorvastati 2018-10 Yes 20mg Take 20 mg [facility] n 20 mg 2-27 by mouth ity of tablet 00:00: daily. [facility] atorvasta 2018-10 Yes 20mg Take 20 mg [facility] n 20 mg 2-27 by mouth ity of tablet 00:00: daily. [facility] atorvasta 2018-10 Yes 20mg Take 20 mg [facility] n 20 mg 2-27 by mouth ity of tablet 00:00: daily. [facility] atorvasta 2018-10 Yes 20mg Take 20 mg [facility] n 20 mg 2-27 by mouth ity of tablet 00:00: daily. [facility] atorvasta 2018-10 Yes 20mg Take 20 mg [facility] n 20 mg 2-27 by mouth ity of tablet 00:00: daily. [place] [facility] atorvasta 2018-10 Yes 20mg Take 20 mg [facility] n 20 mg 2-27 by mouth ity of tablet 00:00: daily. [place] [facility] atorvastati 2018-10 Yes 20mg Take 20 mg [facility] n 20 mg 2-27 by mouth ity of tablet 00:00: daily. [facility] atorvastati 2018-10 Yes 20mg Take 20 mg [facility] n 20 mg 2-27 by mouth ity of tablet 00:00: daily. [address] levothyroxi 2018- Yes 100ug Take 100 U nivers ne 100 mcg 2-23 mcg by ity of tablet 00:00: mouth [place] every Medical morning. Branch levothyroxi 2018-10 Yes 100ug Take 100 U nivers ne 100 mcg 2-23 mcg by ity of tablet 00:00: mouth [place] every Medical morning. Branch levothyroxi 2018-10 Yes 100ug Take 100 U nivers ne 100 mcg 2-23 mcg by ity of tablet 00:00: mouth [place] every Medical morning. Branch levothyroxi 2018-10 Yes 100ug Take 100 U nivers ne 100 mcg 2-23 mcg by ity of tablet 00:00: mouth [place] 00 every Medical morning. Branch levothyroxi 2018-10 Yes 100ug Take 100 U nivers ne 100 mcg 2-23 mcg by ity of tablet 00:00: mouth [place] 00 every Medical morning. Branch levothyroxi 2018-10 Yes 100ug Take 100 U nivers ne 100 mcg 2-23 mcg by ity of tablet 00:00: mouth [place] 00 every Medical morning. Branch levothyroxi 2018-10 Yes 100ug Take 100 U nivers ne 100 mcg 2-23 mcg by ity of tablet 00:00: mouth [place] 00 every Medical morning. Branch levothyroxi 2018-10 Yes 100ug Take 100 U nivers ne 100 mcg 2-23 mcg by ity of tablet 00:00: mouth [place] 00 every Medical morning. Branch levothyroxi 2018-10 Yes 100ug Take 100 U nivers ne 100 mcg 2-23 mcg by ity of tablet 00:00: mouth [place] 00 every Medical morning. Branch levothyroxi 2018-10 Yes 100ug Take 100 U nivers ne 100 mcg 2-23 mcg by ity of tablet 00:00: mouth [place] 00 every Medical morning. Branch levothyroxi 2018-10 Yes 100ug Take 100 U nivers ne 100 mcg 2-23 mcg by ity of tablet 00:00: mouth [place] 00 every Medical morning. Branch levothyroxi 2018-10 Yes 100ug Take 100 U nivers ne 100 mcg 2-23 mcg by ity of tablet 00:00: mouth [place] 00 every Medical morning. Branch levothyroxi 2018-10 Yes 100ug Take 100 U nivers ne 100 mcg 2-23 mcg by ity of tablet 00:00: mouth [place] 00 every Medical morning. Branch levothyroxi 2018-10 Yes 100ug Take 100 U nivers ne 100 mcg 2-23 mcg by ity of tablet 00:00: mouth [place] 00 every Medical morning. Branch levothyroxi 2018-10 Yes 100ug Take 100 U nivers ne 100 mcg 2-23 mcg by ity of tablet 00:00: mouth [place] 00 every Medical morning. Branch levothyroxi 2018-10 Yes 100ug Take 100 U nivers ne 100 mcg 2-23 mcg by ity of tablet 00:00: mouth [place] 00 every Medical morning. Branch levothyroxi 2018-10 Yes 100ug Take 100 U nivers ne 100 mcg 2-23 mcg by ity of tablet 00:00: mouth [place] 00 every Medical morning. Branch levothyroxi 2018-10 Yes 100ug Take 100 U nivers ne 100 mcg 2-23 mcg by ity of tablet 00:00: mouth [place] 00 every Medical morning. Branch levothyroxi 2018-10 Yes 100ug Take 100 U nivers ne 100 mcg 2-23 mcg by ity of tablet 00:00: mouth [place] 00 every Medical morning. Branch levothyroxi 2018-10 Yes 100ug Take 100 U nivers ne 100 mcg 2-23 mcg by ity of tablet 00:00: mouth [place] 00 every Medical morning. Branch levothyroxi 2018-10 Yes 100ug Take 100 U nivers ne 100 mcg 2-23 mcg by ity of tablet 00:00: mouth [place] 00 every Medical morning. Branch levothyroxi 2018-10 Yes 100ug Take 100 U nivers ne 100 mcg 2-23 mcg by ity of tablet 00:00: mouth [place] 00 every Medical morning. Branch levothyroxi 2018-10 Yes 100ug Take 100 U nivers ne 100 mcg 2-23 mcg by ity of tablet 00:00: mouth [place] 00 every Medical morning. Branch levothyroxi 2018-10 Yes 100ug Take 100 U nivers ne 100 mcg 2-23 mcg by ity of tablet 00:00: mouth [place] 00 every Medical morning. Branch levothyroxi 2018-10 Yes 100ug Take 100 U nivers ne 100 mcg 2-23 mcg by ity of tablet 00:00: mouth [place] 00 every Medical morning. Branch levothyroxi 2018-10 Yes 100ug Take 100 U nivers ne 100 mcg 2-23 mcg by ity of tablet 00:00: mouth [place] 00 every Medical morning. Branch levothyroxi 2018-10 Yes 100ug Take 100 U nivers ne 100 mcg 2-23 mcg by ity of tablet 00:00: mouth [place] 00 every Medical morning. Branch levothyroxi 2018-10 Yes 100ug Take 100 U nivers ne 100 mcg 2-23 mcg by ity of tablet 00:00: mouth [place] 00 every Medical morning. Branch levothyroxi 2018-10 Yes 100ug Take 100 U nivers ne 100 mcg 2-23 mcg by ity of tablet 00:00: mouth [place] 00 every Medical morning. Branch levothyroxi 2018-10 Yes 100ug Take 100 U nivers ne 100 mcg 2-23 mcg by ity of tablet 00:00: mouth [place] 00 every Medical morning. Branch levothyroxi 2018-10 Yes 100ug Take 100 U nivers ne 100 mcg 2-23 mcg by ity of tablet 00:00: mouth [place] 00 every Medical morning. Branch levothyroxi 2018-10 Yes 100ug Take 100 U nivers ne 100 mcg 2-23 mcg by ity of tablet 00:00: mouth [place] 00 every Medical morning. Branch levothyroxi 2018-10 Yes 100ug Take 100 U nivers ne 100 mcg 2-23 mcg by ity of tablet 00:00: mouth [place] 00 every Medical morning. Branch levothyroxi 2018-10 Yes 100ug Take 100 U nivers ne 100 mcg 2-23 mcg by ity of tablet 00:00: mouth [place] 00 every Medical morning. Branch levothyroxi 2018-10 Yes 100ug Take 100 U nivers ne 100 mcg 2-23 mcg by ity of tablet 00:00: mouth [place] 00 every Medical morning. Branch levothyroxi 2018-10 Yes 100ug Take 100 U nivers ne 100 mcg 2-23 mcg by ity of tablet 00:00: mouth [place] 00 every Medical morning. Branch levothyroxi 2018-10 Yes 100ug Take 100 U nivers ne 100 mcg 2-23 mcg by ity of tablet 00:00: mouth [place] 00 every Medical morning. Branch levothyroxi 2018-10 Yes 100ug Take 100 U nivers ne 100 mcg 2-23 mcg by ity of tablet 00:00: mouth [place] 00 every Medical morning. Branch levothyroxi 2018-10 Yes 100ug Take 100 U nivers ne 100 mcg 2-23 mcg by ity of tablet 00:00: mouth [place] 00 every Medical morning. Branch levothyroxi 2018-10 Yes 100ug Take 100 U nivers ne 100 mcg 2-23 mcg by ity of tablet 00:00: mouth [place] 00 every Medical morning. Branch levothyroxi 2018-10 Yes 100ug Take 100 U nivers ne 100 mcg 2-23 mcg by ity of tablet 00:00: mouth [place] 00 every Medical morning. Branch levothyroxi 2018-10 Yes 100ug Take 100 U nivers ne 100 mcg 2-23 mcg by ity of tablet 00:00: mouth [place] 00 every Medical morning. Branch levothyroxi 2018-10 Yes 100ug Take 100 U nivers ne 100 mcg 2-23 mcg by ity of tablet 00:00: mouth [place] 00 every Medical morning. Branch levothyroxi 2018-10 Yes 100ug Take 100 U nivers ne 100 mcg 2-23 mcg by ity of tablet 00:00: mouth [place] 00 every Medical morning. Branch levothyroxi 2018-10 Yes 100ug Take 100 U nivers ne 100 mcg 2-23 mcg by ity of tablet 00:00: mouth [place] 00 every Medical morning. Branch levothyroxi 2018-10 Yes 100ug Take 100 U nivers ne 100 mcg 2-23 mcg by ity of tablet 00:00: mouth [place] 00 every Medical morning. Branch levothyroxi 2018-10 Yes 100ug Take 100 U nivers ne 100 mcg 2-23 mcg by ity of tablet 00:00: mouth [place] 00 every Medical morning. Branch levothyroxi 2018-10 Yes 100ug Take 100 U nivers ne 100 mcg 2-23 mcg by ity of tablet 00:00: mouth [place] 00 every Medical morning. Branch levothyroxi 2018-10 Yes 100ug Take 100 U nivers ne 100 mcg 2-23 mcg by [facility] of tablet 00:00: mouth [place] 00 every Medical morning. Branch levothyroxi 2018-10 Yes 100ug Take 100 U nivers ne 100 mcg 2-23 mcg by ity of tablet 00:00: mouth [place] 00 every Medical morning. Branch levothyroxi 2018-10 Yes 100ug Take 100 [facility] nivers ne 100 mcg 2-23 mcg by ity of tablet 00:00: mouth [place] 00 every Medical morning. Branch levothyroxi 2018-10 Yes 100ug Take 100 [facility] nivers ne 100 mcg 2-23 mcg by ity of tablet 00:00: mouth [place] 00 every Medical morning. Branch levothyroxi 2018-10 Yes 100ug Take 100 [facility] nivers ne 100 mcg 2-23 mcg by ity of tablet 00:00: mouth [place] 00 every Medical morning. Branch levothyroxi 2018-10 Yes 100ug Take 100 [facility] nivers ne 100 mcg 2-23 mcg by ity of tablet 00:00: mouth [place] 00 every Medical morning. Branch levothyroxi 2018-10 Yes 100ug Take 100 [facility] nivers ne 100 mcg 2-23 mcg by [facility]y of tablet 00:00: mouth [place] 00 every Medical morning. Branch levothyroxi 2018-10 Yes 100ug Take 100 [facility] nivers ne 100 mcg 2-23 mcg by [facility]y of tablet 00:00: mouth [place] 00 every Medical morning. Branch levothyroxi 2018-10 Yes 100ug Take 100 [facility] n[facility] ne 100 mcg 2-23 mcg by [facility]y of tablet 00:00: mouth [place] 00 every Medical morning. Branch levothyroxi 2018-10 Yes 100ug Take 100 [facility] n[facility] ne 100 mcg 2-23 mcg by [facility]y of tablet 00:00: mouth [place] 00 every Medical morning. Branch levothyroxi 2018-10 Yes 100ug Take 100 [facility] nivers ne 100 mcg 2-23 mcg by [facility]y of tablet 00:00: mouth [place] 00 every Medical morning. Branch levothyroxi 2018-10 Yes 100ug Take 100 [facility] n[facility] ne 100 mcg 2-23 mcg by [facility]y of tablet 00:00: mouth [place] 00 every Medical morning. Branch levothyroxi 2018-10 Yes 100ug Take 100 [facility] n[facility] ne 100 mcg 2-23 mcg by [facility] of tablet 00:00: mouth [place] 00 every Medical morning. Branch levothyroxi 2018-10 Yes 100ug Take 100 [facility] n[facility] ne 100 mcg 2-23 mcg by [facility]y of tablet 00:00: mouth [place] 00 every Medical morning. Branch levothyroxi 2018-10 Yes 100ug Take 100 [facility] n[facility] ne 100 mcg 2-23 mcg by [facility]y of tablet 00:00: mouth [place] 00 every Medical morning. Branch levothyroxi 2018-10 Yes 100ug Take 100 [facility] n[facility] ne 100 mcg 2-23 mcg by [facility]y of tablet 00:00: mouth [place] 00 every Medical morning. Branch losartan 2018-10 Yes 100mg Take 100 [facility] 100 mg 2-13 mg by [facility] of tablet 00:00: mouth [place] 00 daily. Medical Branch losartan 2018-10 Yes 100mg Take 100 [facility] 100 mg 2-13 mg by [facility] of tablet 00:00: mouth [place] 00 daily. Medical Branch losartan 2018-10 Yes 100mg Take 100 [facility] 100 mg 2-13 mg by [facility] of tablet 00:00: mouth [place] 00 daily. Medical Branch losartan 2018-10 Yes 100mg Take 100 [facility] 100 mg 2-13 mg by ity of tablet 00:00: mouth [place] 00 daily. Medical Branch losartan 2018- Yes 100mg Take 100 [facility] 100 mg 2-13 mg by [facility]y of tablet 00:00: mouth [place] 00 daily. Medical Branch losartan 2018- Yes 100mg Take 100 [facility] 100 mg 2-13 mg by [facility]y of tablet 00:00: mouth [place] 00 daily. Medical Branch losartan 2018- Yes 100mg Take 100 [facility] 100 mg 2-13 mg by ity of tablet 00:00: mouth [place] 00 daily. Medical Branch losartan 2018- Yes 100mg Take 100 [facility] 100 mg 2-13 mg by ity of tablet 00:00: mouth [place] 00 daily. Medical Branch losartan 2018-10 Yes 100mg Take 100 [facility] 100 mg 2-13 mg by ity of tablet 00:00: mouth [place] 00 daily. Medical Branch losartan 2018-10 Yes 100mg Take 100 [facility] 100 mg 2-13 mg by ity of tablet 00:00: mouth [place] 00 daily. Medical Branch losartan 2018- Yes 100mg Take 100 [facility] 100 mg 2-13 mg by ity of tablet 00:00: mouth [place] 00 daily. Medical Branch losartan 2018-10 Yes 100mg Take 100 [facility] 100 mg 2-13 mg by ity of tablet 00:00: mouth [place] 00 daily. Medical Branch losartan 2018- Yes 100mg Take 100 [facility] 100 mg 2-13 mg by ity of tablet 00:00: mouth [place] 00 daily. Medical Branch losartan 2018- Yes 100mg Take 100 [facility] 100 mg 2-13 mg by ity of tablet 00:00: mouth [place] 00 daily. Medical Branch losartan 2018- Yes 100mg Take 100 [facility] 100 mg 2-13 mg by ity of tablet 00:00: mouth [place] 00 daily. Medical Branch losartan 2018- Yes 100mg Take 100 [facility] 100 mg 2-13 mg by [facility]y of tablet 00:00: mouth [place] 00 daily. Medical Branch losartan 2018- Yes 100mg Take 100 [facility] 100 mg 2-13 mg by [facility]y of tablet 00:00: mouth [place] 00 daily. Medical Branch losartan 2018- Yes 100mg Take 100 [facility] 100 mg 2-13 mg by [facility]y of tablet 00:00: mouth [place] 00 daily. Medical Branch losartan 2018- Yes 100mg Take 100 [facility] 100 mg 2-13 mg by [facility]y of tablet 00:00: mouth [place] 00 daily. Medical [facility] losartan 2018- Yes 100mg Take 100 [facility] 100 mg 2-13 mg by [facility]y of tablet 00:00: mouth [place] 00 daily. Medical Branch losartan 2018- Yes 100mg Take 100 [facility] 100 mg 2-13 mg by [facility]y of tablet 00:00: mouth [place] 00 daily. Medical Branch losartan 2018- Yes 100mg Take 100 [facility] 100 mg 2-13 mg by [facility] of tablet 00:00: mouth [place] 00 daily. Medical Branch losartan 2018- Yes 100mg Take 100 [facility] 100 mg 2-13 mg by [facility]y of tablet 00:00: mouth [place] 00 daily. Medical Branch losartan 2018- Yes 100mg Take 100 [facility] 100 mg 2-13 mg by ity of tablet 00:00: mouth [place] 00 daily. Medical Branch losartan 2018- Yes 100mg Take 100 [facility] 100 mg 2-13 mg by [facility]y of tablet 00:00: mouth [place] 00 daily. Medical Branch losartan 2018- Yes 100mg Take 100 [facility] 100 mg 2-13 mg by ity of tablet 00:00: mouth [place] 00 daily. Medical Branch losartan 2018-10 Yes 100mg Take 100 [facility] 100 mg 2-13 mg by [facility]y of tablet 00:00: mouth [place] 00 daily. Medical Branch losartan 2018- Yes 100mg Take 100 [facility] 100 mg 2-13 mg by ity of tablet 00:00: mouth [place] 00 daily. Medical Branch losartan 2018- Yes 100mg Take 100 [facility] 100 mg 2-13 mg by ity of tablet 00:00: mouth [place] 00 daily. Medical Branch losartan 2019- Yes 100mg Take 100 [facility] 100 mg 2-13 mg by ity of tablet 00:00: mouth [place] 00 daily. Medical [facility] losartan 2018- Yes 100mg Take 100 [facility] 100 mg 2-13 mg by ity of tablet 00:00: mouth [place] 00 daily. Medical Branch losartan 2019- Yes 100mg Take 100 [facility] 100 mg 2-13 mg by ity of tablet 00:00: mouth [place] 00 daily. Medical Branch losartan 2018- Yes 100mg Take 100 [facility] 100 mg 2-13 mg by ity of tablet 00:00: mouth [place] 00 daily. Medical [facility] losartan 2018- Yes 100mg Take 100 [facility] 100 mg 2-13 mg by [facility]y of tablet 00:00: mouth [place] 00 daily. Medical [facility] losartan 2019- Yes 100mg Take 100 [facility] 100 mg 2-13 mg by ity of tablet 00:00: mouth [place] 00 daily. Medical [facility] losartan 2018- Yes 100mg Take 100 [facility] 100 mg 2-13 mg by ity of tablet 00:00: mouth [place] 00 daily. Medical [facility] losartan 2018- Yes 100mg Take 100 [facility] 100 mg 2-13 mg by [facility]y of tablet 00:00: mouth [place] 00 daily. Medical [facility] losartan 2018- Yes 100mg Take 100 [facility] 100 mg 2-13 mg by ity of tablet 00:00: mouth [place] 00 daily. [facility] losartan 2018- Yes 100mg Take 100 [facility] 100 mg 2-13 mg by [facility]y of tablet 00:00: mouth [place] 00 daily. Medical [facility] losartan 2018-10 Yes 100mg Take 100 [facility] 100 mg 2-13 mg by ity of tablet 00:00: mouth [place] 00 daily. Medical [facility] losartan 2018- Yes 100mg Take 100 [facility] 100 mg 2-13 mg by [facility]y of tablet 00:00: mouth [place] 00 daily. Medical [facility] losartan 2018- Yes 100mg Take 100 [facility] 100 mg 2-13 mg by ity of tablet 00:00: mouth [place] 00 daily. Medical [facility] losartan 2018- Yes 100mg Take 100 [facility] 100 mg 2-13 mg by ity of tablet 00:00: mouth [place] 00 daily. Medical Branch losartan 2018- Yes 100mg Take 100 [facility] 100 mg 2-13 mg by [facility] of tablet 00:00: mouth [place] 00 daily. Medical Branch losartan 2018- Yes 100mg Take 100 [facility] 100 mg 2-13 mg by [facility] of tablet 00:00: mouth [place] 00 daily. [facility] losartan 2018- Yes 100mg Take 100 [facility] 100 mg 2-13 mg by ity of tablet 00:00: mouth [place] 00 daily. Medical [facility] losartan 2019-1 Yes 100mg Take 100 [facility] 100 mg 2-13 mg by ity of tablet 00:00: mouth [place] 00 daily. Medical [facility] losartan 2018- Yes 100mg Take 100 [facility] 100 mg 2-13 mg by ity of tablet 00:00: mouth [place] 00 daily. [facility] Branch losartan 2019- Yes 100mg Take 100 [facility] 100 mg 2-13 mg by ity of tablet 00:00: mouth [place] 00 daily. Medical [facility] losartan 2019- Yes 100mg Take 100 [facility] 100 mg 2-13 mg by ity of tablet 00:00: mouth [place] 00 daily. Medical [facility] losartan 2018- Yes 100mg Take 100 [facility] 100 mg 2-13 mg by ity of tablet 00:00: mouth [place] 00 daily. Medical Branch losartan 2018- Yes 100mg Take 100 [facility] 100 mg 2-13 mg by ity of tablet 00:00: mouth [place] 00 daily. Medical [facility] losartan 2018- Yes 100mg Take 100 [facility] 100 mg 2-13 mg by ity of tablet 00:00: mouth [place] 00 daily. Medical Branch losartan 2018- Yes 100mg Take 100 [facility] 100 mg 2-13 mg by ity of tablet 00:00: mouth [place] 00 daily. Medical Branch losartan 2018- Yes 100mg Take 100 [facility] 100 mg 2-13 mg by ity of tablet 00:00: mouth [place] 00 daily. Medical [facility] losartan 2018- Yes 100mg Take 100 [facility] 100 mg 2-13 mg by ity of tablet 00:00: mouth [place] 00 daily. Medical Branch losartan 2018- Yes 100mg Take 100 [facility] 100 mg 2-13 mg by ity of tablet 00:00: mouth [place] 00 daily. Medical Branch losartan 2018-1 Yes 100mg Take 100 [facility] 100 mg 2-13 mg by ity of tablet 00:00: mouth [place] 00 daily. Medical Branch losartan 2018- Yes 100mg Take 100 [facility] 100 mg 2-13 mg by ity of tablet 00:00: mouth [place] 00 daily. Medical Branch losartan 2018- Yes 100mg Take 100 [facility] 100 mg 2-13 mg by ity of tablet 00:00: mouth [place] 00 daily. Medical Branch losartan 2019- Yes 100mg Take 100 [facility] 100 mg 2-13 mg by ity of tablet 00:00: mouth [place] 00 daily. Medical Branch losartan 2019-1 Yes 100mg Take 100 [facility] 100 mg 2-13 mg by ity of tablet 00:00: mouth [place] 00 daily. Medical Branch losartan 2019-1 Yes 100mg Take 100 [facility] 100 mg 2-13 mg by ity of tablet 00:00: mouth [place] 00 daily. Medical Branch losartan 2019-1 Yes 100mg Take 100 [facility] 100 mg 2-13 mg by ity of tablet 00:00: mouth [place] 00 daily. Medical Branch DICLOFENAC 2019-0 2019- No [id number] 75mg TAKE 1 [facility] 75 mg EC 06-13 05 TABLET BY ity o f tablet 00:00: 04:59 MOUTH 2 [place] 00 :00 (TWO) Medical TIMES Branch DAILY WITH MEALS FOR 30 DAYS. amitriptyli 2018-0 Yes 75mg Take 75 mg [facility] ne 75 mg 7-14 by mouth [facility] of tablet 21:41: at [place] [address] bedtime. Medical Branch amitriptyli 2018-0 Yes 75mg Take 75 mg [facility] ne 75 mg 7-14 by mouth ity of tablet 21:41: at [place] [address] bedtime. Medical Branch amitriptyli 2018-0 Yes 75mg Take 75 mg [facility] ne 75 mg 7-14 by mouth ity of tablet 21:41: at [place] [address] bedtime. Medical Branch amitriptyli 2018-0 Yes 75mg Take 75 mg [facility] ne 75 mg 7-14 by mouth ity of tablet 21:41: at [place] [address] bedtime. Medical Branch amitriptyli 2018-0 Yes 75mg Take 75 mg [facility] ne 75 mg 7-14 by mouth ity of tablet 21:41: at [place] [address] bedtime. Medical Branch amitriptyli 2018-0 Yes 75mg Take 75 mg [facility] ne 75 mg 7-14 by mouth ity of tablet 21:41: at [place] [address] bedtime. Medical Branch amitriptyli 2018-0 Yes 75mg Take 75 mg [facility] ne 75 mg 7-14 by mouth ity of tablet 21:41: at [place] [address] bedtime. Medical Branch amitriptyli 2018-0 Yes 75mg Take 75 mg [facility] ne 75 mg 7-14 by mouth ity of tablet 21:41: at [place] [address] bedtime. Medical Branch amitriptyli 2018-0 Yes 75mg Take 75 mg [facility] ne 75 mg 7-14 by mouth ity of tablet 21:41: at [place] [address] bedtime. Medical Branch amitriptyli 2019-0 Yes 75mg Take 75 mg [facility] ne 75 mg 7-14 by mouth ity of tablet 21:41: at [place] [address] bedtime. Medical Branch amitriptyli 2018-0 Yes 75mg Take 75 mg [facility] ne 75 mg 7-14 by mouth ity of tablet 21:41: at [place] [address] bedtime. Medical Branch amitriptyli 2018-0 Yes 75mg Take 75 mg [facility] ne 75 mg 7-14 by mouth ity of tablet 21:41: at [place] [address] bedtime. Medical Branch atorvastati Yes 80mg Take 80 mg [facility] n 80 mg 7-14 by mouth. ity of tablet 21:39: [place] [address] Medical Branch Levothyroxi Yes 100ug Take 100 [facility] nivers ne 100 mcg 7-14 mcg by ity of capsule 21:39: mouth. [place] [address] Medical Branch QUEtiapine Yes 200mg Take 200 [facility] [place] 200 mg 7-14 mg by ity of tablet 21:39: mouth at [place] [address] bedtime. Medical Branch metFORMIN Yes 500mg Take 500 [facility] vers 500 mg 7-14 mg by ity of tablet 21:39: mouth 2 [place] [address] (two) Medical times Branch daily with meals. rOPINIRole Yes 2mg Take 2 mg [facility] [place] 2 mg tablet 7-14 by mouth ity of 21:39: at [place] [address] bedtime. Medical Branch venlafaxine Yes 150mg Take 150 U nivers XR 150 mg 7-14 mg by ity of 24 hr 21:39: mouth [place] capsule 29 daily with Medica l breakfast. Branch venlafaxine Yes 37.5mg Take 37.5 [facility] XR 37.5 mg 7-14 mg by ity of 24 hr 21:39: mouth [place] capsule 29 daily with Medica l breakfast. Branch clonazePAM Yes .5mg Take 0.5 [facility] vers 0.5 mg 7-14 mg by ity of tablet 21:39: mouth at [place] [address] bedtime. Medical Branch pantoprazol Yes 40mg Take 40 mg [facility] e 40 mg EC 7-14 by mouth ity o f tablet 21:39: daily. [place] [address] Medical Branch HYDROcodone Yes 1{tbl} Take 1 [facility] [place] -acetaminop 7-14 tablet by [facility] of hen (NORCO) 21:39: mouth [place] 10-325 mg 29 every 6 Medical tablet (six) Branch hours as needed. verapamil Yes 120mg Take 120 [facility] vers (VERELAN 7-14 mg by ity of PM) 120 mg 21:39: mouth. [place] 24 hr 29 Medical capsule Branch atorvastati Yes 80mg Take 80 mg [facility] n 80 mg 7-14 by mouth. ity of tablet 21:39: [place] [address] Medical Branch Levothyroxi Yes 100ug Take 100 [facility] nivers ne 100 mcg 7-14 mcg by ity of capsule 21:39: mouth. [place] [address] Medical Branch QUEtiapine 0 Yes 200mg Take 200 [facility] [place] 200 mg 7-14 mg by ity of tablet 21:39: mouth at [place] [address] bedtime. Medical Branch metFORMIN Yes 500mg Take 500 [facility] vers 500 mg 7-14 mg by ity of tablet 21:39: mouth 2 [place] [address] (two) Medical times Branch daily with meals. rOPINIRole Yes 2mg Take 2 mg [facility] [place] 2 mg tablet 7-14 by mouth ity of 21:39: at [place] [address] bedtime. Medical Branch venlafaxine Yes 150mg Take 150 [facility] nivers XR 150 mg 7-14 mg by ity of 24 hr 21:39: mouth [place] capsule 29 daily with Medica l breakfast. Branch venlafaxine Yes 37.5mg Take 37.5 [facility] XR 37.5 mg 7-14 mg by ity of 24 hr 21:39: mouth [place] capsule 29 daily with Medica l breakfast. Branch clonazePAM Yes .5mg Take 0.5 [facility] vers 0.5 mg 7-14 mg by ity of tablet 21:39: mouth at [place] [address] bedtime. Medical Branch pantoprazol Yes 40mg Take 40 mg [facility] e 40 mg EC 7-14 by mouth ity o f tablet 21:39: daily. [address] Branch HYDROcodone 0 Yes 1{tbl} Take 1 [facility] [place] -acetaminop 7-14 tablet by ity of hen (NORCO) 21:39: mouth [place] 10-325 mg 29 every 6 Medical tablet (six) Branch hours as needed. verapamil Yes 120mg Take 120 [facility] vers (VERELAN 7-14 mg by ity of PM) 120 mg 21:39: mouth. [place] 24 hr Medical capsule Branch atorvastati 0 Yes 80mg Take 80 mg [facility] n 80 mg 7-14 by mouth. ity of tablet 21:39: [place] [address] Medical Branch Levothyroxi 0 Yes 100ug Take 100 [facility] nivers ne 100 mcg 7-14 mcg by ity of capsule 21:39: mouth. [place] 29 Medical Branch QUEtiapine Yes 200mg Take 200 [facility] [place] 200 mg 7-14 mg by ity of tablet 21:39: mouth at [place] [address] bedtime. Medical Branch metFORMIN Yes 500mg Take 500 [facility] vers 500 mg 7-14 mg by ity of tablet 21:39: mouth 2 [place] [address] (two) Medical times Branch daily with meals. rOPINIRole Yes 2mg Take 2 mg [facility] [place] 2 mg tablet 7-14 by mouth ity of 21:39: at [place] [address] bedtime. Medical Branch venlafaxine Yes 150mg Take 150 [facility] nivers XR 150 mg 7-14 mg by ity of 24 hr 21:39: mouth [place] capsule 29 daily with Medica l breakfast. Branch venlafaxine Yes 37.5mg Take 37.5 [facility] XR 37.5 mg 7-14 mg by ity of 24 hr 21:39: mouth [place] capsule 29 daily with Medica l breakfast. Branch clonazePAM Yes .5mg Take 0.5 [facility] vers 0.5 mg 7-14 mg by ity of tablet 21:39: mouth at [place] [address] bedtime. Medical Branch pantoprazol Yes 40mg Take 40 mg [facility] e 40 mg EC 7-14 by mouth ity o f tablet 21:39: daily. [place] [address] Medical Branch HYDROcodone Yes 1{tbl} Take 1 [facility] [place] -acetaminop 7-14 tablet by ity of hen (NORCO) 21:39: mouth [place] 10-325 mg 29 every 6 Medical tablet (six) Branch hours as needed. verapamil Yes 120mg Take 120 [facility] vers (VERELAN 7-14 mg by ity of PM) 120 mg 21:39: mouth. [place] 24 hr Medical capsule Branch atorvastati Yes 80mg Take 80 mg [facility] n 80 mg 7-14 by mouth. ity of tablet 21:39: [place] [address] Medical Branch Levothyroxi Yes 100ug Take 100 [facility] nivers ne 100 mcg 7-14 mcg by ity of capsule 21:39: mouth. [place] [address] Medical Branch QUEtiapine Yes 200mg Take 200 [facility] [place] 200 mg 7-14 mg by ity of tablet 21:39: mouth at [place] [address] bedtime. Medical Branch metFORMIN Yes 500mg Take 500 [facility] vers 500 mg 7-14 mg by ity of tablet 21:39: mouth 2 [place] [address] (two) Medical times Branch daily with meals. rOPINIRole Yes 2mg Take 2 mg [facility] [place] 2 mg tablet 7-14 by mouth ity of 21:39: at [place] [address] bedtime. Medical Branch venlafaxine Yes 150mg Take 150 U nivers XR 150 mg 7-14 mg by ity of 24 hr 21:39: mouth [place] capsule 29 daily with Medica l breakfast. Branch venlafaxine Yes 37.5mg Take 37.5 [facility] XR 37.5 mg 7-14 mg by ity of 24 hr 21:39: mouth [place] capsule 29 daily with Medica l breakfast. Branch clonazePAM Yes .5mg Take 0.5 [facility] vers 0.5 mg 7-14 mg by ity of tablet 21:39: mouth at [place] [address] bedtime. Medical Branch pantoprazol Yes 40mg Take 40 mg [facility] e 40 mg EC 7-14 by mouth ity o f tablet 21:39: daily. [place] [address] Medical Branch HYDROcodone Yes 1{tbl} Take 1 [facility] [place] -acetaminop 7-14 tablet by ity of hen ([facility]CO) 21:39: mouth [place] 10-325 mg 29 every 6 Medical tablet (six) Branch hours as needed. verapamil Yes 120mg Take 120 [facility] vers (VERELAN 7-14 mg by ity of PM) 120 mg 21:39: mouth. [place] 24 hr Medical capsule Branch atorvastati Yes 80mg Take 80 mg [facility] n 80 mg 7-14 by mouth. ity of tablet 21:39: [place] [address] Medical Branch Levothyroxi Yes 100ug Take 100 [facility] nivers ne 100 mcg 7-14 mcg by ity of capsule 21:39: mouth. [place] [address] Medical Branch QUEtiapine Yes 200mg Take 200 [facility] [place] 200 mg 7-14 mg by ity of tablet 21:39: mouth at [place] [address] bedtime. Medical Branch metFORMIN Yes 500mg Take 500 [facility] vers 500 mg 7-14 mg by ity of tablet 21:39: mouth 2 [place] [address] (two) Medical times Branch daily with meals. rOPINIRole Yes 2mg Take 2 mg [facility] [place] 2 mg tablet 7-14 by mouth ity of 21:39: at [place] [address] bedtime. Medical Branch venlafaxine Yes 150mg Take 150 [facility] nivers XR 150 mg 7-14 mg by ity of 24 hr 21:39: mouth [place] capsule 29 daily with Medica l breakfast. Branch venlafaxine Yes 37.5mg Take 37.5 [facility] XR 37.5 mg 7-14 mg by ity of 24 hr 21:39: mouth [place] capsule 29 daily with Medica l breakfast. Branch clonazePAM Yes .5mg Take 0.5 [facility] vers 0.5 mg 7-14 mg by ity of tablet 21:39: mouth at [place] [address] bedtime. Medical Branch pantoprazol Yes 40mg Take 40 mg [facility] e 40 mg EC 7-14 by mouth ity o f tablet 21:39: daily. [place] [address] Medical Branch HYDROcodone Yes 1{tbl} Take 1 [facility] [place] -acetaminop 7-14 tablet by ity of hen ([facility]CO) 21:39: mouth [place] 10-325 mg 29 every 6 Medical tablet (six) Branch hours as needed. verapamil Yes 120mg Take 120 [facility] vers (VERELAN 7-14 mg by ity of PM) 120 mg 21:39: mouth. [place] 24 hr Medical capsule Branch atorvastati Yes 80mg Take 80 mg [facility] n 80 mg 7-14 by mouth. ity of tablet 21:39: [place] [address] Medical Branch Levothyroxi Yes 100ug Take 100 [facility] nivers ne 100 mcg 7-14 mcg by ity of capsule 21:39: mouth. [place] [address] Medical Branch QUEtiapine Yes 200mg Take 200 [facility] [place] 200 mg 7-14 mg by ity of tablet 21:39: mouth at [place] [address] bedtime. Medical Branch metFORMIN Yes 500mg Take 500 [facility] vers 500 mg 7-14 mg by ity of tablet 21:39: mouth 2 [place] [address] (two) Medical times Branch daily with meals. rOPINIRole Yes 2mg Take 2 mg [facility] [place] 2 mg tablet 7-14 by mouth ity of 21:39: at [place] [address] bedtime. Medical Branch venlafaxine Yes 150mg Take 150 U nivers XR 150 mg 7-14 mg by ity of 24 hr 21:39: mouth [place] capsule 29 daily with Medica l breakfast. Branch venlafaxine Yes 37.5mg Take 37.5 [facility] XR 37.5 mg 7-14 mg by ity of 24 hr 21:39: mouth [place] capsule 29 daily with Medica l breakfast. Branch clonazePAM Yes .5mg Take 0.5 [facility] vers 0.5 mg 7-14 mg by ity of tablet 21:39: mouth at [place] [address] bedtime. Medical Branch HYDROcodone Yes 1{tbl} Take 1 [facility] [place] -acetaminop 7-14 tablet by ity of hen (NORCO) 21:39: mouth [place] 10-325 mg 29 every 6 Medical tablet (six) Branch hours as needed. verapamil Yes 120mg Take 120 [facility] vers (VERELAN 7-14 mg by ity of PM) 120 mg 21:39: mouth. [place] 24 hr Medical capsule Branch atorvastati Yes 80mg Take 80 mg [facility] n 80 mg 7-14 by mouth. ity of tablet 21:39: [place] [address] Medical Branch Levothyroxi Yes 100ug Take 100 [facility] nivers ne 100 mcg 7-14 mcg by ity of capsule 21:39: mouth. [place] [address] Medical Branch QUEtiapine Yes 200mg Take 200 [facility] [place] 200 mg 7-14 mg by ity of tablet 21:39: mouth at [place] [address] bedtime. Medical Branch metFORMIN Yes 500mg Take 500 [facility] vers 500 mg 7-14 mg by ity of tablet 21:39: mouth 2 [place] 29 (two) Medical times Branch daily with meals. rOPINIRole Yes 2mg Take 2 mg [facility] [place] 2 mg tablet 7-14 by mouth ity of 21:39: at [place] [address] bedtime. Medical Branch venlafaxine Yes 150mg Take 150 U nivers XR 150 mg 7-14 mg by ity of 24 hr 21:39: mouth [place] capsule 29 daily with Medica l breakfast. Branch venlafaxine Yes 37.5mg Take 37.5 [facility] XR 37.5 mg 7-14 mg by ity of 24 hr 21:39: mouth [place] capsule 29 daily with Medica l breakfast. Branch clonazePAM Yes .5mg Take 0.5 [facility] vers 0.5 mg 7-14 mg by ity of tablet 21:39: mouth at [place] [address] bedtime. Medical Branch pantoprazol Yes 40mg Take 40 mg [facility] e 40 mg EC 7-14 by mouth ity o f tablet 21:39: daily. [place] [address] Medical Branch HYDROcodone Yes 1{tbl} Take 1 [facility] [place] -acetaminop 7-14 tablet by ity of hen (NORCO) 21:39: mouth [place] 10-325 mg 29 every 6 Medical tablet (six) Branch hours as needed. verapamil Yes 120mg Take 120 [facility] vers (VERELAN 7-14 mg by ity of PM) 120 mg 21:39: mouth. [place] [address] hr Medical capsule Branch atorvastati Yes 80mg Take 80 mg [facility] n 80 mg 7-14 by mouth. ity of tablet 21:39: [place] [address] Medical Branch Levothyroxi Yes 100ug Take 100 U nivers ne 100 mcg 7-14 mcg by ity of capsule 21:39: mouth. [place] [address] Medical Branch QUEtiapine Yes 200mg Take 200 [facility] [place] 200 mg 7-14 mg by ity of tablet 21:39: mouth at [place] [address] bedtime. Medical Branch metFORMIN Yes 500mg Take 500 [facility] vers 500 mg 7-14 mg by ity of tablet 21:39: mouth 2 [place] [address] (two) Medical times Branch daily with meals. rOPINIRole Yes 2mg Take 2 mg [facility] [place] 2 mg tablet 7-14 by mouth ity of 21:39: at [place] [address] bedtime. Medical Branch venlafaxine Yes 150mg Take 150 U nivers XR 150 mg 7-14 mg by ity of 24 hr 21:39: mouth [place] capsule 29 daily with Medica l breakfast. Branch venlafaxine Yes 37.5mg Take 37.5 [facility] XR 37.5 mg 7-14 mg by ity of 24 hr 21:39: mouth [place] capsule 29 daily with Medica l breakfast. Branch clonazePAM Yes .5mg Take 0.5 [facility] vers 0.5 mg 7-14 mg by ity of tablet 21:39: mouth at [place] [address] bedtime. Medical Branch pantoprazol Yes 40mg Take 40 mg [facility] e 40 mg EC 7-14 by mouth ity o f tablet 21:39: daily. [place] [address] Medical Branch HYDROcodone Yes 1{tbl} Take 1 [facility] [place] -acetaminop 7-14 tablet by ity of hen (NORCO) 21:39: mouth [place] 10-325 mg 29 every 6 Medical tablet (six) Branch hours as needed. verapamil Yes 120mg Take 120 [facility] vers (VERELAN 7-14 mg by ity of PM) 120 mg 21:39: mouth. [place] 24 hr Medical capsule Branch atorvastati Yes 80mg Take 80 mg [facility] n 80 mg 7-14 by mouth. ity of tablet 21:39: [place] [address] Medical Branch Levothyroxi Yes 100ug Take 100 U nivers ne 100 mcg 7-14 mcg by ity of capsule 21:39: mouth. [place] [address] Medical Branch QUEtiapine Yes 200mg Take 200 [facility] [place] 200 mg 7-14 mg by ity of tablet 21:39: mouth at [place] [address] bedtime. Medical Branch metFORMIN Yes 500mg Take 500 [facility] vers 500 mg 7-14 mg by ity of tablet 21:39: mouth 2 [place] [address] (two) Medical times Branch daily with meals. rOPINIRole Yes 2mg Take 2 mg [facility] [place] 2 mg tablet 7-14 by mouth ity of 21:39: at [place] [address] bedtime. Medical Branch venlafaxine Yes 150mg Take 150 U nivers XR 150 mg 7-14 mg by ity of 24 hr 21:39: mouth [place] capsule 29 daily with Medica l breakfast. Branch venlafaxine Yes 37.5mg Take 37.5 [facility] XR 37.5 mg 7-14 mg by ity of 24 hr 21:39: mouth [place] capsule 29 daily with Medica l breakfast. Branch clonazePAM Yes .5mg Take 0.5 Uni vers 0.5 mg 7-14 mg by ity of tablet 21:39: mouth at [place] [address] bedtime. Medical Branch pantoprazol Yes 40mg Take 40 mg [facility] e 40 mg EC 7-14 by mouth ity o f tablet 21:39: daily. [place] [address] Medical Branch HYDROcodone Yes 1{tbl} Take 1 [facility] [place] -acetaminop 7-14 tablet by ity of hen (NORCO) 21:39: mouth [place] 10-325 mg 29 every 6 Medical tablet (six) Branch hours as needed. verapamil Yes 120mg Take 120 Uni vers (VERELAN 7-14 mg by ity of PM) 120 mg 21:39: mouth. [place] 24 hr 29 Medical capsule Branch atorvastati Yes 80mg Take 80 mg [facility] n 80 mg 7-14 by mouth. ity of tablet 21:39: [place] [address] Medical Branch Levothyroxi Yes 100ug Take 100 U nivers ne 100 mcg 7-14 mcg by ity of capsule 21:39: mouth. [place] [address] Medical Branch QUEtiapine Yes 200mg Take 200 [facility] [place] 200 mg 7-14 mg by ity of tablet 21:39: mouth at [place] [address] bedtime. Medical Branch metFORMIN Yes 500mg Take 500 Uni vers 500 mg 7-14 mg by ity of tablet 21:39: mouth 2 [place] [address] (two) Medical times Branch daily with meals. rOPINIRole Yes 2mg Take 2 mg [facility] [place] 2 mg tablet 7-14 by mouth ity of 21:39: at [place] [address] bedtime. Medical Branch venlafaxine Yes 150mg Take 150 U nivers XR 150 mg 7-14 mg by ity of 24 hr 21:39: mouth [place] capsule 29 daily with Medica l breakfast. Branch venlafaxine Yes 37.5mg Take 37.5 [facility] XR 37.5 mg 7-14 mg by ity of 24 hr 21:39: mouth [place] capsule 29 daily with Medica l breakfast. Branch clonazePAM Yes .5mg Take 0.5 Uni vers 0.5 mg 7-14 mg by ity of tablet 21:39: mouth at [place] [address] bedtime. Medical Branch pantoprazol Yes 40mg Take 40 mg [facility] e 40 mg EC 7-14 by mouth ity o f tablet 21:39: daily. [place] [address] Medical Branch HYDROcodone Yes 1{tbl} Take 1 [facility] [place] -acetaminop 7-14 tablet by ity of hen (NORCO) 21:39: mouth [place] 10-325 mg 29 every 6 Medical tablet (six) Branch hours as needed. verapamil Yes 120mg Take 120 Uni vers (VERELAN 7-14 mg by ity of PM) 120 mg 21:39: mouth. [place] 24 hr 29 Medical capsule Branch atorvastati Yes 80mg Take 80 mg [facility] n 80 mg 7-14 by mouth. ity of tablet 21:39: [place] [address] Medical Branch Levothyroxi Yes 100ug Take 100 U nivers ne 100 mcg 7-14 mcg by ity of capsule 21:39: mouth. [place] [address] Medical Branch QUEtiapine Yes 200mg Take 200 [place] 200 mg 7-14 mg by ity of tablet 21:39: mouth at [place] [address] bedtime. Medical Branch metFORMIN Yes 500mg Take 500 Uni vers 500 mg 7-14 mg by ity of tablet 21:39: mouth 2 [place] [address] (two) Medical times Branch daily with meals. rOPINIRole Yes 2mg Take 2 mg [place] 2 mg tablet 7-14 by mouth ity of 21:39: at [place] [address] bedtime. Medical Branch venlafaxine Yes 150mg Take 150 U nivers XR 150 mg 7-14 mg by ity of 24 hr 21:39: mouth [place] capsule 29 daily with Medica l breakfast. Branch venlafaxine Yes 37.5mg Take 37.5 [facility] XR 37.5 mg 7-14 mg by ity of 24 hr 21:39: mouth [place] capsule 29 daily with Medica l breakfast. Branch clonazePAM Yes .5mg Take 0.5 Uni vers 0.5 mg 7-14 mg by ity of tablet 21:39: mouth at [place] [address] bedtime. Medical Branch pantoprazol Yes 40mg Take 40 mg [facility] e 40 mg EC 7-14 by mouth ity o f tablet 21:39: daily. [place] [address] Medical Branch HYDROcodone Yes 1{tbl} Take 1 [facility] [place] -acetaminop 7-14 tablet by ity of hen (NORCO) 21:39: mouth [place] 10-325 mg 29 every 6 Medical tablet (six) Branch hours as needed. verapamil Yes 120mg Take 120 Uni vers (VERELAN 7-14 mg by ity of PM) 120 mg 21:39: mouth. [place] 24 hr Medical capsule Branch atorvastati Yes 80mg Take 80 mg [facility] n 80 mg 7-14 by mouth. ity of tablet 21:39: [place] [address] Medical Branch Levothyroxi Yes 100ug Take 100 U nivers ne 100 mcg 7-14 mcg by ity of capsule 21:39: mouth. [place] [address] Medical Branch QUEtiapine Yes 200mg Take 200 [place] 200 mg 7-14 mg by ity of tablet 21:39: mouth at [place] [address] bedtime. Medical Branch metFORMIN Yes 500mg Take 500 Uni vers 500 mg 7-14 mg by ity of tablet 21:39: mouth 2 [place] [address] (two) Medical times Branch daily with meals. rOPINIRole Yes 2mg Take 2 mg [place] 2 mg tablet 7-14 by mouth ity of 21:39: at [place] [address] bedtime. Medical Branch venlafaxine Yes 150mg Take 150 U nivers XR 150 mg 7-14 mg by ity of 24 hr 21:39: mouth [place] capsule 29 daily with Medica l breakfast. Branch venlafaxine Yes 37.5mg Take 37.5 [facility] XR 37.5 mg 7-14 mg by ity of 24 hr 21:39: mouth [place] capsule 29 daily with Medica l breakfast. Branch clonazePAM Yes .5mg Take 0.5 Uni vers 0.5 mg 7-14 mg by ity of tablet 21:39: mouth at [place] [address] bedtime. Medical Branch pantoprazol Yes 40mg Take 40 mg [facility] e 40 mg EC 7-14 by mouth ity o f tablet 21:39: daily. [address] Branch HYDROcodone Yes 1{tbl} Take 1 [facility] [place] -acetaminop 7-14 tablet by ity of hen (NORCO) 21:39: mouth [place] 10-325 mg 29 every 6 Medical tablet (six) Branch hours as needed. verapamil Yes 120mg Take 120 Uni vers (VERELAN 7-14 mg by ity of PM) 120 mg 21:39: mouth. [place] 24 hr Medical capsule Branch atorvastati Yes 80mg Take 80 mg [facility] n 80 mg 7-14 by mouth. ity of tablet 21:39: [place] [address] Medical Branch Levothyroxi Yes 100ug Take 100 U nivers ne 100 mcg 7-14 mcg by ity of capsule 21:39: mouth. [place] 29 Medical Branch QUEtiapine Yes 200mg Take 200 [place] 200 mg 7-14 mg by ity of tablet 21:39: mouth at [place] 29 bedtime. Medical Branch metFORMIN 2019 Yes 500mg Take 500 Uni vers 500 mg 7-14 mg by ity of tablet 21:39: mouth 2 [place] 29 (two) Medical times Branch daily with meals. rOPINIRole Yes 2mg Take 2 mg [facility] [place] 2 mg tablet 7-14 by mouth ity of 21:39: at [place] 29 bedtime. Medical Branch venlafaxine Yes 150mg Take 150 U nivers XR 150 mg 7-14 mg by ity of 24 hr 21:39: mouth [place] capsule 29 daily with Medica l breakfast. Branch venlafaxine Yes 37.5mg Take 37.5 [facility] XR 37.5 mg 7-14 mg by ity of 24 hr 21:39: mouth [place] capsule 29 daily with Medica l breakfast. Branch clonazePAM Yes .5mg Take 0.5 Uni vers 0.5 mg 7-14 mg by ity of tablet 21:39: mouth at [place] 29 bedtime. Medical Branch pantoprazol Yes 40mg Take 40 mg [facility] e 40 mg EC 7-14 by mouth ity o f tablet 21:39: daily. [place] 29 Medical Branch HYDROcodone Yes 1{tbl} Take 1 [facility] [place] -acetaminop 7-14 tablet by ity of hen (NORCO) 21:39: mouth [place] 10-325 mg 29 every 6 Medical tablet (six) Branch hours as needed. verapamil Yes 120mg Take 120 Uni vers (VERELAN 7-14 mg by ity of PM) 120 mg 21:39: mouth. [place] 24 hr 29 Medical capsule Branch traZODONE 2019- No 100mg Take 100 [facility] [place] 100 mg 7-14 07-14 mg by ity of tablet 21:39: 00:00 mouth at [place] 01 :00 bedtime. Medical Branch acetaminoph 2019 2019- No 1{tbl} Take 1 U nivers en-codeine 7-14 07-14 tablet by ity of 300-30 mg 21:36: 00:00 [place] 2 [place] tablet 15 :00 (two) Medical times Branch daily. cyclobenzap 2019 Yes [id number] 5mg Take 1 Univers rine 5 mg 7-14 tablet by ity o f tablet 00:00: mouth 3 00 (three) Medical times Branch daily. cyclobenzap Yes [id number] 5mg Take 1 [facility] rine 5 mg 7-14 tablet by ity o f tablet 00:00: mouth 3 00 (three) Medical times Branch daily. cyclobenzap Yes [id number] 5mg Take 1 [facility] rine 5 mg 7-14 tablet by ity o f tablet 00:00: mouth 3 00 (three) Medical times Branch daily. cyclobenzap Yes [id number] 5mg Take 1 [facility] rine 5 mg 7-14 tablet by ity o f tablet 00:00: mouth 3 00 (three) Medical times Branch daily. cyclobenzap Yes [id number] 5mg Take 1 [facility] rine 5 mg 7-14 tablet by ity o f tablet 00:00: mouth 3 (three) Medical times Branch daily. cyclobenzap Yes [id number] 5mg Take 1 [facility] rine 5 mg 7-14 tablet by ity o f tablet 00:00: mouth 3 (three) Medical times Branch daily. cyclobenzap Yes [id number] 5mg Take 1 [facility] rine 5 mg 7-14 tablet by ity o f tablet 00:00: mouth 3 (three) Medical times Branch daily. cyclobenzap Yes [id number] 5mg Take 1 [facility] rine 5 mg 7-14 tablet by ity o f tablet 00:00: mouth 3 (three) Medical times Branch daily. cyclobenzap Yes [id number] 5mg Take 1 [facility] rine 5 mg 7-14 tablet by ity o f tablet 00:00: mouth 3 00 (three) Medical times Branch daily. cyclobenzap 2018-0 Yes [id number] 5mg Take 1 [facility] rine 5 mg 7-14 tablet by ity o f tablet 00:00: mouth 3 00 (three) Medical times Branch daily. cyclobenzap 2018-0 Yes [id number] 5mg Take 1 [facility] rine 5 mg 7-14 tablet by ity o f tablet 00:00: mouth 3 00 (three) Medical times Branch daily. cyclobenzap Yes [id number] 5mg Take 1 [facility] rine 5 mg 7-14 tablet by ity o f tablet 00:00: mouth 3 [place] 00 (three) Medical times Branch daily. cyclobenzap Yes [id number] 5mg Take 1 [facility] rine 5 mg 7-14 tablet by ity o f tablet 00:00: mouth 3 [place] 00 (three) Medical times Branch daily. cyclobenzap Yes [id number] 5mg Take 1 [facility] rine 5 mg 7-14 tablet by ity o f tablet 00:00: mouth 3 00 (three) Medical times Branch daily. cyclobenzap Yes [id number] 5mg Take 1 [facility] rine 5 mg 7-14 tablet by ity o f tablet 00:00: mouth 3 00 (three) Medical times Branch daily. cyclobenzap 0 Yes [id number] 5mg Take 1 [facility] rine 5 mg 7-14 tablet by ity o f tablet 00:00: mouth 3 00 (three) Medical times Branch daily. cyclobenzap Yes [id number] 5mg Take 1 [facility] rine 5 mg 7-14 tablet by ity o f tablet 00:00: mouth 3 00 (three) Medical times Branch daily. cyclobenzap Yes [id number] 5mg Take 1 [facility] rine 5 mg 7-14 tablet by ity o f tablet 00:00: mouth 3 00 (three) Medical times Branch daily. cyclobenzap Yes [id number] 5mg Take 1 [facility] rine 5 mg 7-14 tablet by ity o f tablet 00:00: mouth 3 (three) Medical times Branch daily. cyclobenzap 0 Yes [id number] 5mg Take 1 [facility] rine 5 mg 7-14 tablet by ity o f tablet 00:00: mouth 3 00 (three) Medical times Branch daily. cyclobenzap 2018-0 Yes [id number] 5mg Take 1 [facility] rine 5 mg 7-14 tablet by ity o f tablet 00:00: mouth 3 00 (three) Medical times Branch daily. cyclobenzap 2018-0 Yes [id number] 5mg Take 1 [facility] rine 5 mg 7-14 tablet by ity o f tablet 00:00: mouth 3 00 (three) Medical times Branch daily. cyclobenzap 2018- Yes [id number] 5mg Take 1 [facility] rine 5 mg 7-14 tablet by ity o f tablet 00:00: mouth 3 [place] 00 (three) Medical times Branch daily. cyclobenzap 2018- Yes [id number] 5mg Take 1 [facility] rine 5 mg 7-14 tablet by ity o f tablet 00:00: mouth 3 [place] 00 (three) Medical times Branch daily. cyclobenzap 2019- No [id number] 5mg Take 1 [facility] rine 5 mg 7-14 02-14 tablet by ity of tablet 00:00: 00:00 mouth 3 [place] 00 :00 (three) Medical times Branch daily. cyclobenzap 2020- No [id number] 5mg Take 1 [facility] rine 5 mg 7-14 02-14 tablet by ity of tablet 00:00: 00:00 mouth 3 [place] 00 :00 (three) Medical times Branch daily. Breo Breo 2018- No Reji 1 puff [facility] Ellipta Ellipta 08 08-06 [facility] 00:00: 00:00 - [facility] 00 :00 [facility] SODIUM 2018- No by Dental Unive rs FLUORIDE 16 16 route. ity of (PREVIDENT 17:01: 00:00 [place] 5000 48 :00 Medical BOOSTER Branch DENTAL) mirtazapine 2018- No 30mg Take 30 mg Univers (REMERON 01-01 by mouth ity of BERTHA-TAB) 30 15:40: 00:00 at [place] mg 13 :00 bedtime. Medical disintegrat Branch ing tablet hydrOXYzine 2018- No 25mg Take 25 mg Univers (ATARAX) 25 01-0112 by mouth ity of mg tablet 15:38: 00:00 every 6 [place] 32 :00 (six) Medical hours. Branch hydrochloro 2019- No 12.5mg Take 12.5 Univers thiazide 01-01-12 mg by ity of (ESIDRIX) 15:38: 00:00 mouth [place] 12.5 mg 08 :00 daily. Medical capsule Branch cycloSPORIN 2019- No 1[drp] Place 1 Univers E - 03-12 Drop in ity of (RESTASIS) 15:36: 00:00 left eye [place] 0.05 % 49 :00 every 12 Medical drops (twelve) Branch hours. aspirin 81 2019-0 2019- No 81mg Take 81 mg Univers mg chewable 01-0112 by mouth ity of tablet 15:36: 00:00 daily. [place] 27 :00 Medical Branch venlafaxine 2018- No 150mg Take 150 Univers (EFFEXOR) 01-01 mg by ity of 75 mg 15:34: 00:00 mouth [place] tablet 15 :00 daily. Medical Branch ALBUTEROL 2018- No Inhale. Univ ers SULFATE 01-01 ity of INHALE 15:31: 00:00 [place] 02 :00 Medical Branch bacitracin 2019- No [id number] Apply to Univers 500 11-07 affected ity of unit/gram 00:00: 00:00 area(s) 3 [place] ointment 00 :00 (three) Medical times Branch daily. amoxicillin 2018- No 1{tbl} Take 1 U nivers -clavulanat 10-30 tablet by it y of e 875-125 00:00: 00:00 mouth [place] mg per 00 :00 every 12 Medical tablet (twelve) Branch hours. amitriptyli 2017-10- No Unive rs ne 50 mg 12 ity of tablet 00:00: 00:00 [place] 00 :00 Medical Branch BREO Yes 1{puff} Inhale 1 Univer s ELLIPTA 6-03 Puff as ity of 100-25 00:00: needed. [place] mcg/dose Medical DsDv Branch BREO Yes Univers ELLIPTA 6-03 ity of 100-25 00:00: [place] mcg/dose Medical DsDv Branch BREO Yes 1{puff} Inhale 1 Univer s ELLIPTA 6-03 Puff as ity of 100-25 00:00: needed. [place] mcg/dose Medical DsDv Branch BREO Yes 1{puff} Inhale 1 Univer s ELLIPTA 6-03 Puff as ity of 100-25 00:00: needed. [place] mcg/dose 00 Medical [facility] Branch [facility] Yes 1{puff} Inhale 1 Univer s ELLIPTA 6-03 Puff as ity of 100-25 00:00: needed. [place] mcg/dose [address] [facility] [address] Yes 1{puff} Inhale 1 Univer s ELLIPTA 6-03 Puff as ity of 100-25 00:00: needed. [place] mcg/dose 00 Medical [facility] Branch [facility] 0 Yes 1{puff} Inhale 1 Univer s ELLIPTA 6-03 Puff as ity of 100-25 00:00: needed. [place] mcg/dose 00 Medical [facility]Dv Branch [facility] 0 Yes 1{puff} Inhale 1 Univer s ELLIPTA 6-03 Puff as ity of 100-25 00:00: needed. [place] mcg/dose 00 Medical [facility] Branch [facility] 0 Yes 1{puff} Inhale 1 Univer s ELLIPTA 6-03 Puff as ity of 100-25 00:00: needed. [place] mcg/dose [address] [facility] 0 Yes 1{puff} Inhale 1 Univer s ELLIPTA 6-03 Puff as ity of 100-25 00:00: needed. [place] mcg/dose [address] [facility] 0 Yes Univers ELLIPTA 6-03 ity of 100-25 00:00: [place] mcg/dose [address] [facility] 0 Yes 1{puff} Inhale 1 Univer s ELLIPTA 6-03 Puff as ity of 100-25 00:00: needed. [place] mcg/dose [address] [facility] 0 Yes 1{puff} Inhale 1 Univer s ELLIPTA 6-03 Puff as ity of 100-25 00:00: needed. [place] mcg/dose [address] [facility] 0 Yes 1{puff} Inhale 1 Univer s ELLIPTA 6-03 Puff as ity of 100-25 00:00: needed. [place] mcg/dose [address] [facility] 0 Yes 1{puff} Inhale 1 Univer s ELLIPTA 6-03 Puff as ity of 100-25 00:00: needed. [place] mcg/dose 00 Medical [facility]v Branch [facility] 0 Yes 1{puff} Inhale 1 Univer s ELLIPTA 6-03 Puff as ity of 100-25 00:00: needed. [place] mcg/dose [address] [facility] 2016-0 Yes 1{puff} Inhale 1 Univer s ELLIPTA 6-03 Puff as ity of 100-25 00:00: needed. [place] mcg/dose [address] [facility] 2015-0 Yes 1{puff} Inhale 1 Univer s ELLIPTA 6-03 Puff as ity of 100-25 00:00: needed. [place] mcg/dose [address] [facility] 2016-0 Yes Univers ELLIPTA 6-03 ity of 100-25 00:00: [place] mcg/dose [address] [facility] 2015-0 Yes 1{puff} Inhale 1 Univer s ELLIPTA 6-03 Puff as ity of 100-25 00:00: needed. [place] mcg/dose [address] [facility] 2015-0 Yes 1{puff} Inhale 1 Univer s ELLIPTA 6-03 Puff as ity of 100-25 00:00: needed. [place] mcg/dose [address] [facility] 0 Yes 1{puff} Inhale 1 Univer s ELLIPTA 6-03 Puff as ity of 100-25 00:00: needed. [place] mcg/dose [address] [facility] 0 Yes 1{puff} Inhale 1 Univer s ELLIPTA 6-03 Puff as ity of 100-25 00:00: needed. [place] mcg/dose [address] [facility] 2015-0 Yes 1{puff} Inhale 1 Univer s ELLIPTA 6-03 Puff as ity of 100-25 00:00: needed. [place] mcg/dose [address] [facility] 0 Yes 1{puff} Inhale 1 Univer s ELLIPTA 6-03 Puff as ity of 100-25 00:00: needed. [place] mcg/dose [address] [facility] 2016-0 Yes Univers ELLIPTA 6-03 ity of 100-25 00:00: [place] mcg/dose [address] [facility] 2015-0 Yes 1{puff} Inhale 1 Univer s ELLIPTA 6-03 Puff as ity of 100-25 00:00: needed. [place] mcg/dose [address] [facility] 2015-0 Yes 1{puff} Inhale 1 Univer s ELLIPTA 6-03 Puff as ity of 100-25 00:00: needed. [place] mcg/dose [address] [facility] 2016-0 Yes 1{puff} Inhale 1 Univer s ELLIPTA 6-03 Puff as ity of 100-25 00:00: needed. [place] mcg/dose [address] [facility] 2015-0 Yes 1{puff} Inhale 1 Univer s ELLIPTA 6-03 Puff as ity of 100-25 00:00: needed. [place] mcg/dose [address] [facility] 2015-0 Yes 1{puff} Inhale 1 Univer s ELLIPTA 6-03 Puff as ity of 100-25 00:00: needed. [place] mcg/dose [address] [facility] 2015-0 Yes 1{puff} Inhale 1 Univer s ELLIPTA 6-03 Puff as ity of 100-25 00:00: needed. [place] mcg/dose [address] [facility] 2015-0 Yes Univers ELLIPTA 6-03 ity of 100-25 00:00: [place] mcg/dose [address] 0 Yes 1{puff} Inhale 1 Univer s ELLIPTA 6-03 Puff as ity of 100-25 00:00: needed. [place] mcg/dose [address] [facility] 2015-0 Yes 1{puff} Inhale 1 Univer s ELLIPTA 6-03 Puff as ity of 100-25 00:00: needed. [place] mcg/dose [address] [facility] 2015-0 Yes 1{puff} Inhale 1 Univer s ELLIPTA 6-03 Puff as ity of 100-25 00:00: needed. [place] mcg/dose [address] [facility] 2015-0 Yes 1{puff} Inhale 1 Univer s ELLIPTA 6-03 Puff as ity of 100-25 00:00: needed. [place] mcg/dose [address] [facility] 2015-0 Yes 1{puff} Inhale 1 Univer s ELLIPTA 6-03 Puff as ity of 100-25 00:00: needed. [place] mcg/dose [address] [facility] 2015-0 Yes 1{puff} Inhale 1 Univer s ELLIPTA 6-03 Puff as ity of 100-25 00:00: needed. [place] mcg/dose 00 Medical D[facility]Dv Branch [facility] 2016-0 Yes 1{puff} Inhale 1 Univer s ELLIPTA 6-03 Puff as ity of 100-25 00:00: needed. [place] mcg/dose 00 Medical D[facility]Dv Branch [facility] 2016-0 Yes 1{puff} Inhale 1 Univer s ELLIPTA 6-03 Puff as ity of 100-25 00:00: needed. [place] mcg/dose 00 Medical DsDv Branch [facility] 2016-0 Yes Univers ELLIPTA 6-03 ity of 100-25 00:00: [place] mcg/dose 00 Medical D[facility]Dv Branch [facility] 2016-0 Yes 1{puff} Inhale 1 Univer s ELLIPTA 6-03 Puff as ity of 100-25 00:00: needed. [place] mcg/dose 00 Medical [facility]Dv Branch [facility] 0 Yes 1{puff} Inhale 1 Univer s ELLIPTA 6-03 Puff as ity of 100-25 00:00: needed. [place] mcg/dose [address] [facility] 0 Yes 1{puff} Inhale 1 Univer s ELLIPTA 6-03 Puff as ity of 100-25 00:00: needed. [place] mcg/dose [address] [facility] 0 Yes 1{puff} Inhale 1 Univer s ELLIPTA 6-03 Puff as ity of 100-25 00:00: needed. [place] mcg/dose [address] [facility] 0 Yes 1{puff} Inhale 1 Univer s ELLIPTA 6-03 Puff as ity of 100-25 00:00: needed. [place] mcg/dose [address] [facility] 2016-0 Yes Univers ELLIPTA 6-03 ity of 100-25 00:00: [place] mcg/dose [address] [facility] 2016-0 Yes Univers ELLIPTA 6-03 ity of 100-25 00:00: [place] mcg/dose 00 Medical D[facility]Dv Branch [facility] 2016-0 Yes Univers ELLIPTA 6-03 ity of 100-25 00:00: [place] mcg/dose 00 Medical DsDv Branch [facility] 2016-0 Yes Univers ELLIPTA 6-03 ity of 100-25 00:00: [place] mcg/dose 00 Medical D[facility]Dv Branch [facility] 2016-0 Yes 1{puff} Inhale 1 Univer s ELLIPTA 6-03 Puff as ity of 100-25 00:00: needed. [place] mcg/dose [address] [facility] 2016-0 Yes 1{puff} Inhale 1 Univer s ELLIPTA 6-03 Puff as ity of 100-25 00:00: needed. [place] mcg/dose [address] [facility] 2016-0 Yes Univers ELLIPTA 6-03 ity of 100-25 00:00: [place] mcg/dose [address] [facility] 2016-0 Yes 1{puff} Inhale 1 Univer s ELLIPTA 6-03 Puff as ity of 100-25 00:00: needed. [place] mcg/dose [address] [facility] 2015-0 Yes 1{puff} Inhale 1 Univer s ELLIPTA 6-03 Puff as ity of 100-25 00:00: needed. [place] mcg/dose [address] [facility] 2015-0 Yes 1{puff} Inhale 1 Univer s ELLIPTA 6-03 Puff as ity of 100-25 00:00: needed. [place] mcg/dose 00 Medical [facility] Branch [facility] 0 Yes 1{puff} Inhale 1 Univer s ELLIPTA 6-03 Puff as ity of 100-25 00:00: needed. [place] mcg/dose [address] [facility] 2015-0 Yes 1{puff} Inhale 1 Univer s ELLIPTA 6-03 Puff as ity of 100-25 00:00: needed. [place] mcg/dose [address] [facility] 2016-0 Yes Univers ELLIPTA 6-03 ity of 100-25 00:00: [place] mcg/dose 00 Medical DsDv [facility] 2016-0 Yes 1{puff} Inhale 1 Univer s ELLIPTA 6-03 Puff as ity of 100-25 00:00: needed. [place] mcg/dose [address] [facility] 2015-0 Yes 1{puff} Inhale 1 Univer s ELLIPTA 6-03 Puff as ity of 100-25 00:00: needed. [place] mcg/dose [address] [facility] 2015-0 Yes 1{puff} Inhale 1 Univer s ELLIPTA 6-03 Puff as ity of 100-25 00:00: needed. [place] mcg/dose [address] [facility] 2015-0 Yes 1{puff} Inhale 1 Univer s ELLIPTA 6-03 Puff as ity of 100-25 00:00: needed. [place] mcg/dose 00 Medical [facility]v Branch [facility] 2015-0 Yes 1{puff} Inhale 1 Univer s ELLIPTA 6-03 Puff as ity of 100-25 00:00: needed. [place] mcg/dose [address] [facility] 2015-0 Yes 1{puff} Inhale 1 Univer s ELLIPTA 6-03 Puff as ity of 100-25 00:00: needed. [place] mcg/dose [address] [facility] 0 Yes 1{puff} Inhale 1 Univer s ELLIPTA 6-03 Puff as ity of 100-25 00:00: needed. [place] mcg/dose [address] [facility] 0 Yes 1{puff} Inhale 1 Univer s ELLIPTA 6-03 Puff as ity of 100-25 00:00: needed. [place] mcg/dose [address] [facility] 0 Yes 1{puff} Inhale 1 Univer s ELLIPTA 6-03 Puff as ity of 100-25 00:00: needed. [place] mcg/dose [address] [facility] 0 Yes 1{puff} Inhale 1 Univer s ELLIPTA 6-03 Puff as ity of 100-25 00:00: needed. [place] mcg/dose [address] [facility] 2015-0 Yes Univers ELLIPTA 6-03 ity of 100-25 00:00: [place] mcg/dose [address] [facility] 2015-0 Yes 1{puff} Inhale 1 Univer s ELLIPTA 6-03 Puff as ity of 100-25 00:00: needed. [place] mcg/dose [address] [facility] 2015-0 Yes 1{puff} Inhale 1 Univer s ELLIPTA 6-03 Puff as ity of 100-25 00:00: needed. [place] mcg/dose [address] [facility] 0 Yes 1{puff} Inhale 1 Univer s ELLIPTA 6-03 Puff as ity of 100-25 00:00: needed. [place] mcg/dose 00 [facility] BREO 2016-0 Yes 1{puff} Inhale 1 Univer s ELLIPTA 6-03 Puff as ity of 100-25 00:00: needed. [place] mcg/dose 00 Medical [facility] BREO 2016-0 Yes 1{puff} Inhale 1 Univer s ELLIPTA 6-03 Puff as ity of 100-25 00:00: needed. [place] mcg/dose 00 Medical [facility] BREO 2016-0 Yes 1{puff} Inhale 1 Univer s ELLIPTA 6-03 Puff as ity of 100-25 00:00: needed. [place] mcg/dose 00 Medical [facility] BREO 2015-0 Yes 1{puff} Inhale 1 Univer s ELLIPTA 6-03 Puff as ity of 100-25 00:00: needed. [place] mcg/dose 00 [facility] losartan 2014-0 Yes 100mg 100 mg Univer s (COZAAR) 50 9-22 daily. ity of mg tablet 00:00: [facility] losartan 2014-0 Yes 100mg 100 mg Univer s (COZAAR) 50 9-22 daily. ity of mg tablet 00:00: [facility] losartan 2014-0 Yes 100mg 100 mg Univer s (COZAAR) 50 9-22 daily. ity of mg tablet 00:00: [facility] losartan 2014-0 Yes 100mg 100 mg Univer s (COZAAR) 50 9-22 daily. ity of mg tablet 00:00: Medical Branch losartan 2014-0 Yes 100mg 100 mg Univer s (COZAAR) 50 9-22 daily. ity of mg tablet 00:00: Medical Branch losartan 2014-0 Yes 100mg 100 mg Univer s (COZAAR) 50 9-22 daily. ity of mg tablet 00:00: Medical Branch losartan 2014-0 Yes 100mg 100 mg Univer s (COZAAR) 50 9-22 daily. ity of mg tablet 00:00: [facility] [place] losartan 2014-0 Yes 100mg 100 mg Univer s (COZAAR) 50 9-22 daily. ity of mg tablet 00:00: Medical Branch losartan 2014-0 Yes 100mg 100 mg Univer s (COZAAR) 50 9-22 daily. ity of mg tablet 00:00: [facility] losartan Yes 100mg 100 mg Univer s (COZAAR) 50 9-22 daily. ity of mg tablet 00:00: [place] [facility] losartan Yes 100mg 100 mg Univer s (COZAAR) 50 9-22 daily. ity of mg tablet 00:00: [place] [facility] losartan Yes 100mg 100 mg Univer s (COZAAR) 50 9-22 daily. ity of mg tablet 00:00: [place] [facility] losartan Yes 100mg 100 mg Univer s (COZAAR) 50 9-22 daily. ity of mg tablet 00:00: [place] [facility] losartan 2020- No 100mg 100 mg Unive rs (COZAAR) 50 9- 02-14 daily. ity o f mg tablet 00:00: 00:00 [place] : [facility] Ropinirole Ropinirole Yes Reji 1 tablet 1 Common HCl HCl [facility]arris to 3 hours [facility] before [facility] bedtime [facility] ReliOn ReliOn Yes Reji as Common Prime Test Prime Test [facility] directed [facility] Pantoprazol Pantoprazol Yes Reji 1 tablet Common e Sodium e Sodium Farris [facility] Verapamil Verapamil Yes Reji 1 tablet Common HCl ER HCl ER Farris [facility] Accu-Chek Accu-Chek Yes Reji as Com mon FastClix FastClix Farris directed Sp edmund Lancets Lancets [facility] CPAP CPAP Yes Reji nightly Common Machine Machine Farris [facility] Clonazepam Clonazepam Yes Reji 1 tablet Common [facility] at bedtime [facility] Levothyroxi Levothyroxi Yes Reji 1 tablet Common ne Sodium ne Sodium [place] on an Spi rit empty - [facility] stomach in [facility] Losartan Losartan Yes Reji 1 tablet C ommon Potassium Potassium [facility] Spir it [facility] Metformin Metformin Yes Reji 1 tablet Common HCl HCl [place] with a [facility] meal [facility] Atorvastati Atorvastati Yes Reji TAKE 1 Common n Calcium n Calcium [facility]arris TABLET BY Spirit MOUTH - [facility] EVERY DAY [facility] OneTouch OneTouch Yes Reji TEST BLOOD Common Verio Verio [facility] SUGAR ONCE [facility] A DAY [facility] Spironolact Spironolact Yes Reji 1 tablet Common one one Farris [facility] Diclofenac Diclofenac Yes Reji as C ommon Sodium Sodium [facility] directed [facility] Hydrocodone Hydrocodone Yes Reji 1 tablet Common -Acetaminop -Acetaminop [place] as needed [facility] hen hen [facility] Venlafaxine Venlafaxine Yes Reji 1 capsule Common HCl ER HCl ER [facility] Venlafaxine Venlafaxine Yes Reji 1 tablet Common HCl HCl [place] with food [facility] Amitriptyli Amitriptyli Yes Reji 1 tablet Common ne HCl ne HCl [place] at bedtime [facility] Quetiapine Quetiapine Yes Reji 1 tablet Common Fumarate Fumarate Farris [facility] Metformin Metformin Yes Reji TAKE 1 C ommon HCl HCl [place] TABLET BY Spirit MOUTH - [facility] TWICE A DAY WITH A [facility] Atorvastati Atorvastati Yes Reji 1 tablet Common n Calcium n Calcium [place] Spir [facility] Losartan Losartan Yes Reji TAKE 1 Com mon Potassium Potassium [place] TABLET BY Spirit MOUTH - [facility] EVERY DAY [facility] Pantoprazol Pantoprazol Yes Reji TAKE 1 Common e Sodium e Sodium [place] TABLET BY S pirit MOUTH - CHI EVERY DAY [facility] levothyroxi levothyroxi No 1capsul Q1D levothyrox [place] ne 100 mcg ne 100 mcg e(s) ine 100 Family capsule capsule mcg Practic Take 1 Take 1 capsule e capsule capsule Take 1 every day every day capsule by oral by oral every day route. route. by oral route. metformin metformin No 1 Q1D metformin [place] 1,000 mg 1,000 mg 1,000 mg Fam [...] every day route. route. by oral route. Immunizations Ordered Filled Immunization Date Status Comments [facility] e Immunization Name Name SARS-COV-2 COVID-19 2021-08-17 Completed Unive rsity of MODERNA BOOSTER 00:00:00 [place] [facility] ical VACCINE Branch SARS-COV-2 COVID-19 2021-08-17 Completed Unive rsity of MODERNA BOOSTER 00:00:00 [place] [facility] VACCINE Branch SARS-COV-2 COVID-19 2021-08-17 Completed Unive rsity of MODERNA BOOSTER 00:00:00 [place] [facility] VACCINE Branch SARS-COV-2 COVID-19 2021-08-17 Completed Unive rsity of MODERNA BOOSTER 00:00:00 [place] [facility] ical VACCINE Branch influenza, influenza, 2020-07-23 Completed [facility] Family injectable, injectable, 00:00:00 Practice quadrivalent quadrivalent Pneumococcal 2019-01-08 Completed University o f Polysaccharide, 00:00:00 [place] [facility] ical PPSV23 (PNEUMOVAX) Branch Pneumococcal 2019-01-08 Completed University o f Polysaccharide, 00:00:00 [place] [facility] ical PPSV23 (PNEUMOVAX) Branch Pneumococcal 2019-01-08 Completed University o f Polysaccharide, 00:00:00 [place] [facility] ical PPSV23 (PNEUMOVAX) Branch Pneumococcal 2019-01-08 Completed University o f Polysaccharide, 00:00:00 [place] [facility] ical PPSV23 (PNEUMOVAX) Branch Pneumococcal 2019-01-08 Completed University o f Polysaccharide, 00:00:00 [place] [facility] ical PPSV23 (PNEUMOVAX) Branch Pneumococcal 2019-01-08 Completed University o f Polysaccharide, 00:00:00 [place] [facility] ical PPSV23 (PNEUMOVAX) Branch Pneumococcal 2019-01-08 Completed University o f Polysaccharide, 00:00:00 [place] Med ical PPSV23 (PNEUMOVAX) Branch Pneumococcal 2019-01-08 Completed University o f Polysaccharide, 00:00:00 [place] [facility] ical PPSV23 (PNEUMOVAX) Branch Pneumococcal 2019-01-08 Completed University o f Polysaccharide, 00:00:00 [place] [facility] ical PPSV23 (PNEUMOVAX) Branch Pneumococcal 2019-01-08 Completed University o f Polysaccharide, 00:00:00 [place] [facility] ical PPSV23 (PNEUMOVAX) Branch Pneumococcal 2019-01-08 Completed University o f Polysaccharide, 00:00:00 [place] Med ical PPSV23 (PNEUMOVAX) Branch Pneumococcal 2019-01-08 Completed University o f Polysaccharide, 00:00:00 [place] [facility] ical PPSV23 (PNEUMOVAX) Branch Pneumococcal 2019-01-08 Completed University o f Polysaccharide, 00:00:00 [place] [facility] ical PPSV23 (PNEUMOVAX) Branch Pneumococcal 2019-01-08 Completed University o f Polysaccharide, 00:00:00 [place] [facility] ical PPSV23 (PNEUMOVAX) Branch Pneumococcal 2019-01-08 Completed University o f Polysaccharide, 00:00:00 [place] [facility] ical PPSV23 (PNEUMOVAX) Branch Pneumococcal 2019-01-08 Completed University o f Polysaccharide, 00:00:00 [place] Med ical PPSV23 (PNEUMOVAX) Branch Pneumococcal 2019-01-08 Completed University o f Polysaccharide, 00:00:00 [place] Med ical PPSV23 (PNEUMOVAX) Branch Pneumococcal 2019-01-08 Completed University o f Polysaccharide, 00:00:00 [place] Med ical PPSV23 (PNEUMOVAX) Branch Pneumococcal 2019-01-08 Completed University o f Polysaccharide, 00:00:00 [place] Med ical PPSV23 (PNEUMOVAX) Branch Pneumococcal 2019-01-08 Completed University o f Polysaccharide, 00:00:00 [place] Med ical PPSV23 (PNEUMOVAX) Branch Pneumococcal 2019-01-08 Completed University o f Polysaccharide, 00:00:00 [place] Med ical PPSV23 (PNEUMOVAX) Branch Pneumococcal 2019-01-08 Completed University o f Polysaccharide, 00:00:00 [place] [facility] ical PPSV23 (PNEUMOVAX) Branch Pneumococcal 2019-01-08 Completed University o f Polysaccharide, 00:00:00 [place] [facility] ical PPSV23 (PNEUMOVAX) Branch Pneumococcal 2019-01-08 Completed University o f Polysaccharide, 00:00:00 [place] [facility] ical PPSV23 (PNEUMOVAX) Branch Pneumococcal 2019-01-08 Completed University o f Polysaccharide, 00:00:00 [place] Med ical PPSV23 (PNEUMOVAX) Branch Pneumococcal 2019-01-08 Completed University o f Polysaccharide, 00:00:00 [place] Med ical PPSV23 (PNEUMOVAX) Branch Pneumococcal 2019-01-08 Completed University o f Polysaccharide, 00:00:00 [place] Med ical PPSV23 (PNEUMOVAX) Branch Pneumococcal 2019-01-08 Completed University o f Polysaccharide, 00:00:00 [place] [facility] ical PPSV23 (PNEUMOVAX) Branch Pneumococcal 2019-01-08 Completed University o f Polysaccharide, 00:00:00 [place] Med ical PPSV23 (PNEUMOVAX) Branch Pneumococcal 2019-01-08 Completed University o f Polysaccharide, 00:00:00 [place] [facility] ical PPSV23 (PNEUMOVAX) Branch Pneumococcal 2019-01-08 Completed University o f Polysaccharide, 00:00:00 [place] Med ical PPSV23 (PNEUMOVAX) Branch Pneumococcal 2019-01-08 Completed University o f Polysaccharide, 00:00:00 [place] Med ical PPSV23 (PNEUMOVAX) Branch Pneumococcal 2019-01-08 Completed University o f Polysaccharide, 00:00:00 [place] [facility] ical PPSV23 (PNEUMOVAX) Branch Pneumococcal 2019-01-08 Completed University o f Polysaccharide, 00:00:00 [place] Med ical PPSV23 (PNEUMOVAX) Branch Pneumococcal 2019-01-08 Completed University o f Polysaccharide, 00:00:00 [place] Med ical PPSV23 (PNEUMOVAX) Branch Pneumococcal 2019-01-08 Completed University o f Polysaccharide, 00:00:00 [place] Med ical PPSV23 (PNEUMOVAX) Branch Pneumococcal 2019-01-08 Completed University o f Polysaccharide, 00:00:00 [place] Med ical PPSV23 (PNEUMOVAX) Branch Pneumococcal 2019-01-08 Completed University o f Polysaccharide, 00:00:00 [place] Med ical PPSV23 (PNEUMOVAX) Branch Pneumococcal 2019-01-08 Completed University o f Polysaccharide, 00:00:00 [place] Med ical PPSV23 (PNEUMOVAX) Branch Pneumococcal 2019-01-08 Completed University o f Polysaccharide, 00:00:00 [place] Med ical PPSV23 (PNEUMOVAX) Branch Pneumococcal 2019-01-08 Completed University o f Polysaccharide, 00:00:00 [place] Med ical PPSV23 (PNEUMOVAX) Branch Pneumococcal 2019-01-08 Completed University o f Polysaccharide, 00:00:00 [place] Med ical PPSV23 (PNEUMOVAX) Branch Pneumococcal 2019-01-08 Completed University o f Polysaccharide, 00:00:00 [place] [facility] ical PPSV23 (PNEUMOVAX) Branch Pneumococcal 2019-01-08 Completed University o f Polysaccharide, 00:00:00 [place] [facility] ical PPSV23 (PNEUMOVAX) Branch Pneumococcal 2019-01-08 Completed University o f Polysaccharide, 00:00:00 [place] Med ical PPSV23 (PNEUMOVAX) Branch Pneumococcal 2019-01-08 Completed University o f Polysaccharide, 00:00:00 [place] Med ical PPSV23 (PNEUMOVAX) Branch Pneumococcal 2019-01-08 Completed University o f Polysaccharide, 00:00:00 [place] Med ical PPSV23 (PNEUMOVAX) Branch Pneumococcal 2019-01-08 Completed University o f Polysaccharide, 00:00:00 [place] Med ical PPSV23 (PNEUMOVAX) Branch Pneumococcal 2019-01-08 Completed University o f Polysaccharide, 00:00:00 [place] Med ical PPSV23 (PNEUMOVAX) Branch Pneumococcal 2019-01-08 Completed University o f Polysaccharide, 00:00:00 [place] Med ical PPSV23 (PNEUMOVAX) Branch Pneumococcal 2019-01-08 Completed University o f Polysaccharide, 00:00:00 [place] [facility] ical PPSV23 (PNEUMOVAX) Branch Pneumococcal 2019-01-08 Completed University o f Polysaccharide, 00:00:00 [place] [facility] ical PPSV23 (PNEUMOVAX) Branch Pneumococcal 2019-01-08 Completed University o f Polysaccharide, 00:00:00 [place] [facility] ical PPSV23 (PNEUMOVAX) Branch Pneumococcal 2019-01-08 Completed University o f Polysaccharide, 00:00:00 [place] Med ical PPSV23 (PNEUMOVAX) Branch Pneumococcal 2019-01-08 Completed University o f Polysaccharide, 00:00:00 [place] Med ical PPSV23 (PNEUMOVAX) Branch Pneumococcal 2019-01-08 Completed University o f Polysaccharide, 00:00:00 [place] [facility] ical PPSV23 (PNEUMOVAX) Branch Pneumococcal 2019-01-08 Completed University o f Polysaccharide, 00:00:00 [place] [facility] ical PPSV23 (PNEUMOVAX) Branch Pneumococcal 2019-01-08 Completed University o f Polysaccharide, 00:00:00 [place] [facility] ical PPSV23 (PNEUMOVAX) Branch Pneumococcal 2019-01-08 Completed University o f Polysaccharide, 00:00:00 [place] Med ical PPSV23 (PNEUMOVAX) Branch Pneumococcal 2019-01-08 Completed University o f Polysaccharide, 00:00:00 [place] Med ical PPSV23 (PNEUMOVAX) Branch Pneumococcal 2019-01-08 Completed University o f Polysaccharide, 00:00:00 [place] Med ical PPSV23 (PNEUMOVAX) Branch Pneumococcal 2019-01-08 Completed University o f Polysaccharide, 00:00:00 [place] Med ical PPSV23 (PNEUMOVAX) Branch Pneumococcal 2019-01-08 Completed University o f Polysaccharide, 00:00:00 [place] Med ical PPSV23 (PNEUMOVAX) Branch Pneumococcal 2019-01-08 Completed University o f Polysaccharide, 00:00:00 [place] Med ical PPSV23 (PNEUMOVAX) Branch Pneumococcal 2019-01-08 Completed University o f Polysaccharide, 00:00:00 [place] Med ical PPSV23 (PNEUMOVAX) Branch Pneumococcal 2019-01-08 Completed University o f Polysaccharide, 00:00:00 [place] Med ical PPSV23 (PNEUMOVAX) Branch Pneumococcal 2019-01-08 Completed University o f Polysaccharide, 00:00:00 [place] Med ical PPSV23 (PNEUMOVAX) Branch Pneumococcal 2019-01-08 Completed University o f Polysaccharide, 00:00:00 [place] Med ical PPSV23 (PNEUMOVAX) Branch Pneumococcal 2019-01-08 Completed University o f Polysaccharide, 00:00:00 [place] Med ical PPSV23 (PNEUMOVAX) Branch Pneumococcal 2019-01-08 Completed University o f Polysaccharide, 00:00:00 [place] Med ical PPSV23 (PNEUMOVAX) Branch Pneumococcal 2019-01-08 Completed University o f Polysaccharide, 00:00:00 [place] Med ical PPSV23 (PNEUMOVAX) Branch Pneumococcal 2019-01-08 Completed University o f Polysaccharide, 00:00:00 [place] Med ical PPSV23 (PNEUMOVAX) Branch Pneumococcal 2019-01-08 Completed University o f Polysaccharide, 00:00:00 [place] Med ical PPSV23 (PNEUMOVAX) Branch Pneumococcal 2019-01-08 Completed University o f Polysaccharide, 00:00:00 [place] Med ical PPSV23 (PNEUMOVAX) Branch Pneumococcal 2019-01-08 Completed University o f Polysaccharide, 00:00:00 [place] Med ical PPSV23 (PNEUMOVAX) Branch Pneumococcal 2019-01-08 Completed University o f Polysaccharide, 00:00:00 [place] Med ical PPSV23 (PNEUMOVAX) Branch Pneumococcal 2019-01-08 Completed University o f Polysaccharide, 00:00:00 [place] [facility] ical PPSV23 (PNEUMOVAX) Branch Vital Signs Vital Name Observation Time Observation Value Comments Source Systolic blood 2021-07-29 18:49:00 135 mm[Hg] [facility] Diastolic blood 2021-07-29 18:49:00 83 mm[Hg] [facility]ive [facility] Heart rate 2021-07-29 18:49:00 72 /min [facility] Body temperature 2021-07-29 18:49:00 36.56 Macarena [facility] Respiratory rate 2021-07-29 18:49:00 20 /min [facility] Body height 2021-07-29 18:49:00 157.5 cm [facility] Body weight 2021-07-29 18:49:00 107.049 kg [facility] BMI 2021-07-29 18:49:00 43.16 kg/m2 Universi ty [facility] Oxygen saturation in 2021-07-29 18:49:00 96 /min University of Arterial blood by [facility] Pulse oximetry Branch Systolic blood 2020-10-22 17:08:00 132 mm[Hg] [facility]iver [facility] Diastolic blood 2020-10-22 17:08:00 80 mm[Hg] [facility]ive rsity [facility] Heart rate 2020-10-22 17:07:00 73 /min Universi ty of [facility] Branch Systolic blood 2020-10-22 17:08:00 132 mm[Hg] [facility]iver [facility] Diastolic blood 2020-10-22 17:08:00 80 mm[Hg] [facility]ive [facility] Heart rate 2020-10-22 17:07:00 73 /min [facility] Systolic blood 2020-04-24 15:41:00 132 mm[Hg] [facility] Diastolic blood 2020-04-24 15:41:00 82 mm[Hg] [facility] Heart rate 2020-04-24 15:41:00 71 /min [facility] Body height 2020-04-24 15:41:00 157.5 cm [facility] Body weight 2020-04-24 15:41:00 109.317 kg Universi ty of [facility] BMI 2020-04-24 15:41:00 44.08 kg/m2 [facility]i ty of [facility] Systolic blood 2020-04-20 20:12:00 136 mm[Hg] [facility] Diastolic blood 2020-04-20 20:12:00 88 mm[Hg] Unive rsity of pressure [facility] Heart rate 2020-04-20 20:08:00 80 /min Universi ty of [facility] Body weight 2020-04-20 20:08:00 112.492 kg Universi ty of [facility] BMI 2020-04-20 20:08:00 45.36 kg/m2 [facility] Systolic blood 2020-01-01 15:55:00 123 mm[Hg] [facility] Diastolic blood 2020-01-01 15:55:00 80 mm[Hg] [facility] Heart rate 2020-01-01 15:55:00 83 /min [facility] Body height 2020-01-01 15:55:00 157.5 cm [facility] Body weight 2020-01-01 15:55:00 112.492 kg [facility] BMI 2020-01-01 15:55:00 45.36 kg/m2 [facility] Systolic blood 2019-12-24 19:21:00 113 mm[Hg] [facility] Diastolic blood 2019-12-24 19:21:00 84 mm[Hg] [facility] Body height 2019-12-24 19:21:00 157.5 cm Universi ty of [facility] Body weight 2019-12-24 19:21:00 112.492 kg Universi ty of [facility] BMI 2019-12-24 19:21:00 45.36 kg/m2 [facility] Body height 2019-12-17 19:15:00 157.5 cm [facility] Body weight 2019-12-17 19:15:00 112.492 kg Universi ty of [facility] BMI 2019-12-17 19:15:00 45.36 kg/m2 Universi ty [facility] [place] [facility] Systolic blood 2019-12-12 17:00:00 123 mm[Hg] Univer sity of pressure [place] [facility] Diastolic blood 2019-12-12 17:00:00 58 mm[Hg] Unive rsity of pressure [place] [facility] Heart rate 2019-12-12 17:00:00 67 /min [facility]i ty [facility] [place] [facility] Body temperature 2019-12-12 17:00:00 36.89 Macarena Univ ersity of [place] [facility] Respiratory rate 2019-12-12 17:00:00 18 /min Univ ersity of [place] [facility] Oxygen saturation in 2019-12-12 17:00:00 94 /min University of Arterial blood by [employer] Pulse oximetry Branch Body height 2019-12-06 17:00:00 157.5 cm [facility]i ty [facility] [place] [facility] Body weight 2019-12-06 17:00:00 112.492 kg [facility]i [facility] [place] [facility] BMI 2019-12-06 17:00:00 45.36 kg/m2 [facility] [place] [facility] Systolic blood 2019-01-01 15:28:00 129 mm[Hg] Univer sity of pressure [place] [facility] Diastolic blood 2019-01-01 15:28:00 80 mm[Hg] Unive rsity of pressure [place] [facility] Heart rate 2019-01-01 15:28:00 68 /min [facility]i ty [facility] [place] [facility] Respiratory rate 2019-01-01 15:28:00 20 /min Univ ersity of [place] [facility] Body height 2019-01-01 15:28:00 157.5 cm Universi ty [facility] [place] [facility] Body weight 2019-01-01 15:28:00 110.36 kg Universi ty of [place] [facility] BMI 2019-01-01 15:28:00 44.50 kg/m2 [facility]i ty [facility] [place] [facility] Oxygen saturation in 2019-01-01 15:28:00 97 /min University of Arterial blood by [employer] Pulse oximetry Branch Systolic blood 2019-11-14 20:56:00 124 mm[Hg] Univer sity of pressure [place] [facility] Diastolic blood 2019-11-14 20:56:00 72 mm[Hg] Unive rsity of pressure [place] [facility] Heart rate 2019-11-14 20:56:00 77 /min [facility]i ty [facility] [place] [facility] Body height 2019-11-14 20:56:00 157.5 cm [facility] Body weight 2019-11-14 20:56:00 109.317 kg [facility] BMI 2019-11-14 20:56:00 44.08 kg/m2 [facility] Procedures Procedure Date / Time Performing Clinician Source Performed DEXA AXIAL (HIP AND 2022-02-09 20:42:00 Requisition, Paper [facility] SPINE) Medical Branch ASSIGNMENT OF BENEFITS 2022-02-09 19:39:03 Doctor Unassigned, Un [facility] AUTHORIZATION FOR RELEASE 2022-01-19 05:01:00 Doctor [place], [place] [facility] SARS-COV-2 COVID-19 2021-08-17 18:27:50 Doctor [place], [facility] VACCINE BOOSTER,0.25ML,IM [place] [facility] (MODERNA) XR CHEST 2 VW 2021-07-29 19:11:12 Latha [facility] o f [place] [facility] ASSIGNMENT OF BENEFITS 2021-07-29 18:44:44 Doctor Unassigned, [facility] INSURANCE CORRESPONDENCE 2020-11-27 06:01:00 Doctor Unassigned, [facility] [place] [facility] BI DIAGNOSTIC MAMMOGRAM 2020-09-04 20:23:40 Veronica Garcia [facility] BILATERAL Medical Branch RADIOLOGY DOCUMENTATION 2020-09-04 06:01:00 Doctor Unassigned, [facility] RADIOLOGY DOCUMENTATION 2020-08-19 05:01:00 Doctor Unassigned, [facility] AUTHORIZATION TO RELEASE 2020-07-23 05:01:00 Doctor Lauriessmolly, [facility] PHI TO [facility] CBC WITH DIFFERENTIAL 2020-04-20 20:58:00 Jeanie Olivares [facility] [place] XR KNEE <3 VW LEFT 2020-04-20 18:44:02 Jeanie Olivares [facility] [place] HOME HEALTH - OTHER 2020-01-10 05:01:00 Doctor Eduardo, [facility] XR KNEE <3 VW LEFT 2019-12-24 19:22:41 [facility] HOME HEALTH 485 2019-12-13 06:01:00 Doctor Unassigned, [facility] POCT GLUCOSE (AUTOMATED) 2019-12-12 17:18:00 [facility] POCT GLUCOSE (AUTOMATED) 2019-12-12 13:36:00 Jeanie Olivares [facility] POCT GLUCOSE (AUTOMATED) 2019-12-12 02:35:00 Jeanie Olivares [facility] POCT GLUCOSE (AUTOMATED) 2019-12-11 21:29:00 Jeanie Olivares U niversity [facility] POCT GLUCOSE (AUTOMATED) 2019-12-11 17:49:00 [facility]) 2019-12-11 13:37:00 Jeanie Olivares U niversity [facility] POCT GLUCOSE (AUTOMATED) 2019-12-11 01:35:00 Jeanie Olivares [facility] POCT GLUCOSE (AUTOMATED) 2019-12-10 22:04:00 Jeanie Olivares U niversity [facility] POCT GLUCOSE (AUTOMATED) 2019-12-10 13:27:00 [facility] BASIC METABOLIC PANEL 2019-12-10 11:03:00 [facility] Cummings [facility] [place] (NA, K, CL, CO2, GLUCOSE, Medica l Branch BUN, CREATININE, CA) CBC WITH DIFFERENTIAL 2019-12-10 11:03:00 Alicia Cummings [facility] POCT GLUCOSE (AUTOMATED) 2019-12-10 01:34:00 [facility] PO[facility] GLUCOSE (AUTOMATED) 2019-12-09 23:29:00 [facility] GLYCOSYLATED HEMOGLOBIN 2019-12-09 21:54:00 Alicia Cummigns [facility] (A1C) [facility] XR KNEE <3 VW LEFT 2019-12-09 17:24:03 Olivares, Jeanie L [facility] NERVE BLOCK 2019-12-09 16:23:03 O [facility] Mabel Armenta [facility] TOTAL KNEE ARTHROPLASTY 2019-12-09 14:00:00 Jeanie Olivares Un [facility] HB ABO GROUPING 2019-12-09 13:41:00 Jeanie Olivares [facility] POCT GLUCOSE(AGE >30DAYS) 2019-12-09 13:38:00 [place] [facility] HOSPITAL ADMISSION 2019-12-09 06:01:00 Doctor Unassmolly, [facility] Name Medical Branch ASSIGNMENT OF BENEFITS 2019-12-06 20:12:00 Doctor Unassmolly, [facility] Name Medical [place] MEDICAL RELEASE/CLEARANCE 2019-12-02 06:01:00 Doctor Eduardo, [facility] FORMS [facility] REFERRAL- 2019-11-29 06:01:00 Doctor [place], [facility] REQUEST/RESPONSE [facility] [place] INSURANCE CORRESPONDENCE 2019-11-15 06:01:00 Doctor Unassigned, [facility] Name Medical [place] XR KNEE <3 VW LEFT 2019-11-14 21:28:52 [facility] REFERRAL- 2019-11-04 06:01:00 Doctor Unaoctaviaigned, [facility] REQUEST/RESPONSE [facility] EKG-12 LEAD 2019-01-01 15:46:22 [facility] Plan of Care Planned Activity Planned Date Details Comments Source Instructions [facility] Practice Encounters Start End Encounter Admission Attending Care Care Encounter Source Date/Time Date/Time Type Type Clinicians Facility Department ID 2021-11-17 Outpatient Farris, ST[facility] [id number] Common 14:39:28 Reji [facility] 2021-11-17 Outpatient Farris, STLMLC [facility] [id number] Common 14:03:56 Reji [facility] 2021-11-17 Outpatient Farris, STLC [facility] [id number] Common 14:00:52 Reji [facility] 2021-11-17 Outpatient Farris, [facility] [id number] Common 13:58:35 Reji [id number] [facility] 2021-11-17 Outpatient Farris, STLMLC STLMLC [id number] Common 13:57:02 Reji [id number] [facility] 2021-11-17 Outpatient Farris, STLMLC STLMLC [id number] Common 13:06:10 Reji [id number] [facility] 2021-11-17 Outpatient Farris, STLMLC STLMLC [id number] Common 12:34:42 Reji [id number] [facility] 2021-11-17 Outpatient Farris, STLMLC STLMLC [id number] Common 12:33:57 Reji [id number] [facility] 2021-11-17 Outpatient Farris, STLMLC STLMLC [id number] Common 12:09:48 Reji [id number] [facility] 2021-11-17 Outpatient Farris, STLMLC STLMLC [id number] Common 11:22:51 Reji [id number] [facility] 2021-11-17 Outpatient Farris, STLMLC STLMLC [id number] Common 11:17:29 Reji [id number] [facility] 2021-11-17 Outpatient Farris, STLMLC STLMLC [id number] Common 11:05:43 Reji [id number] [facility] 2021-11-17 Outpatient Farris, STLMLC STLMLC [id number] Common 11:01:56 Reji [id number] [facility] 2022-10-06 2022-10-06 Outpatient R RADIOLOGY [facility] [id number] 1P-20 Univers 00:00:00 00:00:00 [id number] [facility] 2022-04-01 2022-04-01 ambulatory STLMLC STLMLC [id number] Common 00:00:00 00:00:00 [facility] 2022-02-15 2022-02-15 ambulatory STLMLC STLMLC [id number] Common 00:00:00 00:00:00 [facility] 2022-02-09 2022-02-09 Outpatient R RADIOLOGY [facility] [id number] Univers 14:41:40 23:59:00 [facility] 2022-02-09 2022-02-09 Hospital Radiology [facility] 1.2.840.114 [id number] Univers 14:41:40 23:59:00 Encounter [place] 350.1.13.10 ity [facility] 4.2.7.2.686 [facility] [phone] [facility] [address] 2022-02-09 2022-02-09 Outpatient R RADIOLOGY [facility] [id number] 1P-20 Univers 15:35:00 15:35:00 [id number] [facility] 2022-02-09 2022-02-09 Orders Doctor BREA 1.2.840.114 [id number] Univers 00:00:00 00:00:00 Only Unassigned, KARIN 350.1.13.10 ity of [place] [facility] 4.2.7.2.686 Franco as [phone] [address] 2022-01-19 2022-01-19 Orders Doctor BREA 1.2.840.114 [id number] Univers 00:00:00 00:00:00 Only Unassigned, KARIN 350.1.13.10 ity of [place] [facility] 4.2.7.2.686 Franco as [phone] [address] 2021-12-19 2021-12-19 ambulatory STLMLC STLMLC [id number] Common 00:00:00 00:00:00 [facility] 2021-11-16 2021-11-16 ambulatory STLMLC STLMLC [id number] Common 00:00:00 00:00:00 [facility] 2021-11-16 2021-11-16 ambulatory STLMLC STLMLC [id number] Common 00:00:00 00:00:00 [facility] 2021-08-17 2021-08-17 Outpatient [facility] [id number] Univers 14:00:00 14:00:00 [facility] 2021-08-17 2021-08-17 Imm/Inj Nurse, Adc Pob Immunization [facility] 1.2.840.114 [id number] Univers 13:26:44 13:26:58 Visit Larry Banerjee 350.1.13 .10 it[place] of [place].7.2.[place] ricardocelso [phone] Ak dical nal 421 [facility] 2021-08-16 2021-08-16 Outpatient [facility] [id number] Univers 16:10:00 16:10:00 ity [facility] 2021-08-16 2021-08-16 Outpatient STLMLC STLMLC [id number] Common 00:00:00 00:00:00 [facility] 2021-07-31 2021-07-31 Letter BREA Chanel 1.2.840.114 [id number] Univers 00:00:00 00:00:00 (Out) Elissa FRAZIER 350.1.13.10 it y of [facility] 4.2.7.2.686 Franco as [phone] [address] 2021-07-29 2021-07-29 [facility] 1.2.386.493 [id number] Univers 13:59:13 23:59:00 Encounter [facility] 350.1.13.10 ity of [place] 4.2.7.2.686 Franco as Matthew?Blea [phone] Ak dicjose marques [address] [facility] 2021-07-29 2021-07-29 Urgent [facility]pson [facility] 1.2.840.114 [id number] Univers 13:44:55 14:13:[address] [facility] 350.1.13.10 ity of [place] 4.2.7.2.686 Franco as Matthew?Blea [phone] Ak dical jaylyney [address] [facility] 2021-07-29 2021-07-29 Outpatient R [facility] [id number] -[id number] Univers 13:45:00 13:45:00 [id number] ity [facility] 2021-07-29 2021-07-29 [facility] [id number] Univers 13:45:00 13:45:00 LOVE [facility] 2021-07-29 2021-07-29 Outpatient STLMLC STLMLC [id number] Common 00:00:00 00:00:00 [facility] 2021-07-29 2021-07-29 Orders Doctor BREA 1.2.840.114 [id number] Univers 00:00:00 00:00:00 Only Unassigned, KARIN 350.1.13.10 ity of [place] [facility] 4.2.7.2.686 Franco as [phone] [address] 2021-07-29 2021-07-29 Telephone Pcp, [facility] 1.2.422.656 [id number] Univers 00:00:00 00:00:00 Patient Health 350.1.13.10 it y of Does Not Surgical [place].2.[place].2.686 [place] Specialti [phone] Ak dical es [address] [place] 2021-07-02 2021-07-02 Outpatient STLMLC STLMLC [id number] Common 00:00:00 00:00:00 [facility] 2021-05-14 2021-05-14 Outpatient STLMLC STLMLC [id number] Common 00:00:00 00:00:00 [facility] 2021-04-08 2021-04-08 Outpatient Miller_S_AH VFP VFP [id number] [facility] 04:53:00 04:53:00 [id number] Family Practic e 2021-03-09 2021-03-09 Outpatient Lorraine-Mbayo VFP VFP [id number] [facility] 04:44:00 04:44:00 _A_AH 64450 Family Practic e 2021-02-16 2021-02-16 Outpatient STLMLC STLMLC [id number] Common 00:00:00 00:00:00 [facility] 2021-01-26 2021-01-26 Outpatient STLMLC STLMLC [id number] Common 00:00:00 00:00:00 [facility] 2021-01-14 2021-01-14 Outpatient STLMLC STLMLC [id number] Common 00:00:00 00:00:00 [facility] 2020-12-30 2020-12-30 [facility] 1.2.840.114 [id number] Univers 00:00:00 00:00:00 Outreach Larry VILLANUEVA 350.1.13.10 i ty of [facility] 4.2.7.2.686 [place] [phone] Ak dic[address] 2020 2020 Outpatient [facility] [id number] Univers 14:30:00 14:30:00 [facility] 2020-12-21 2020-12-21 Outpatient STLMLC STLC [id number] Common 00:00:00 00:00:00 [facility] 2020-12-07 2020-12-07 Outpatient R [facility] [id number] -[id number] Univers 10:00:00 10:00:00 [id number] [facility] 2020-12-07 2020-12-07 [facility] [id number] Univers 10:00:00 10:00:[address] [facility] [place] [place] 2020-11-30 2020-11-30 Outpatient R [facility] [id number] -20 Univers 11:00:00 11:00:00 [id number] [facility] 2020-11-30 2020-11-30 [facility] [id number] Univers 11:00:00 11:00:[address] [facility] [place] 2020-11-30 2020-11-30 Outpatient STLC STLC [id number] Common 00:00:00 00:00:00 [facility] 2020-11-30 2020-11-30 Outpatient STLC STLC [id number] Common 00:00:00 00:00:00 [facility] 2020-11-27 2020-11-27 Orders Doctor GUIDRY 1.2.840.114 [id number] Univers 00:00:00 00:00:00 Only Unassigned, KARIN 350.1.13.10 ity of [place] [facility] 4.2.7.2.686 Franco as [phone] [address] 2020-11-23 2020-11-23 Outpatient STLMLC STLMLC [id number] Common 00:00:00 00:00:00 [facility] 2020-10-22 2020-10-22 [facility] [id number] 1P-20 Univers 16:00:00 16:00:00 JEANIE [id number] [facility] 2020-10-22 2020-10-22 Outpatient [facility] [id number] Univers 16:00:00 16:00:00 JEANIE [facility] 2020-10-22 2020-10-22 Office [facility] 1.2.840.114 [id number] 10:58:24 11:13:24 Visit [facility] 350.1.13.10 Surgical 4.2.7.2.686 Specialti [phone] es [address] [place] [address] 2020-10-22 2020-10-22 Office Madhav Cam [facility] 1.2.840.114 [id number] Univers 10:58:24 11:13:24 Visit Marshall Jeanie Sarai [facility] 350.1.13.10 ity of Surgical 4.2.7.2.686 Franco as Specialti [phone] Ak dical es 198 [facility] 2020-10-19 2020-10-19 Refill [facility] 1.2.840.114 [id number] Univers 00:00:00 00:00:00 [facility] 350.1.13.10 it y of Surgical 4.2.7.2.686 Franco as Specialti [phone] Ak dical es 198 [facility] 2020-09-22 2020-09-22 Outpatient [facility] [id number] 1P-20 Univers 13:00:00 13:00:00 ROSSANA [facility] 2020-09-22 2020-09-22 Outpatient [facility] [id number] Univers 13:00:00 13:00:00 [facility] 2020-09-22 2020-09-22 Outpatient STLMLC STLMLC [id number] Common 00:00:00 00:00:00 [facility] 2020-09-16 2020-09-16 Outpatient STLMLC STLC [id number] Common 00:00:00 00:00:00 [facility] 2020-09-15 2020-09-15 [facility] 1.2.840.114 [id number] Univers 14:18:23 23:59:00 Encounter Rossana Cheng SPECIALTY 350.1.13.10 ity of CARE [place]2.7.2.686 [place] [phone] Ak dical [place] 800 [facility] 2020-09-15 2020-09-15 Outpatient R [facility] [id number] 1P-20 Univers 15:00:00 15:00:00 ROSSANA [id number] ity [facility] 2020-09-15 2020-09-15 [facility] 1.2.840.114 [id number] Univers 14:17:33 14:17:33 Encounter Rossana Cheng SPECIALTY 350.1.13.10 ity of CARE 4.2.7.2.686 [place] NOT[place] D[place] AT [phone] Ak dicjose AGUILARCammie 800 [facility] 2020-09-15 2020-09-15 Outpatient R [facility] [id number] Univers 00:00:00 00:00:00 [facility] 2020-09-14 2020-09-14 [facility] 1.2.840.114 [id number] Univers 00:00:00 00:00:00 [facility] 350.1.13.10 it y of Surgical 4.2.7.2.686 Franco as Specialti [phone] Ak dical es 198 [facility] 2020-09-04 2020-09-04 [facility] 1.2.840.114 [id number] Univers 14:23:39 23:59:00 Encounter Veronica A SPECIALTY 350.1.13.10 ity of CARE [place]2.7.2.[place] [phone] Ak dical VICTORY 802 [facility] 2020-09-04 2020-09-04 Outpatient R [facility] [id number] Univers 14:23:39 14:23:39 VERONICA [facility] 2020-09-04 2020-09-04 Case Radha, [facility] 1.2.840.114 [id number] Univers 00:00:00 00:00:00 Management Veronica Martinez Arthur 350.1.13.10 it[place] of [place].2.[place] Profess[place] [phone] Me dical nal 204 [facility] 2020-09-04 2020-09-04 Orders Doctor BREA 1.2.840.114 [id number] Univers 00:00:00 00:00:00 Only Unassigned, KARIN 350.1.13.10 ity of [place] [facility] 4.2.7.2.686 Franco as [phone] [address] 2020-09-02 2020-09-02 Outpatient STLMLC STLMLC [id number] Common 00:00:00 00:00:00 [facility] 2020-08-27 2020-08-27 [facility] 1.2.870.525 [id number] Univers 00:00:00 00:00:00 [facility] 350.1.13.10 it y of Surgical 4.2.7.2.686 [place] as Specialti [phone] Ak dical es 198 [facility] 2020-08-25 2020-08-25 Outpatient [facility] [id number] [facility] 01:08:00 01:08:00 _J_AH 53511 Family Practic e 2020-08-19 2020-08-19 Orders Doctor GUIDRY 1.2.840.114 [id number] Univers 00:00:00 00:00:00 Only Unassigned, KARIN 350.1.13.10 ity of [place] [facility] 4.2.7.2.686 Franco as [phone] [address] 2020-08-18 2020-08-18 Outpatient Mo JUARES [facility] [id number] 1P-20 Univers 16:00:00 16:00:00 ROSSANA [id number] [facility] 2020-08-18 2020-08-18 Outpatient Mo JUARES [facility] [id number] Univers 16:00:00 16:00:00 ROSSANA [facility] 2020-08-10 2020-08-10 [place] VFP [place] - [id number] V illage 00:00:00 00:00:00 [facility] Ozzy box SWINE NUTRITIONIST: Medical - Practi c [address] [email or web address] [email or web address], [address], [place] [address] , Ph. 2020-08-04 2020-08-04 Outpatient R [facility] [id number] 1P-20 Univers 14:15:00 14:15:00 ROSSANA [id number] [facility] 2020-08-04 2020-08-04 Outpatient R [facility] [id number] Univers 14:15:00 14:15:00 ROSSANA [facility] 2020-07-28 2020-07-28 Outpatient R [facility] [id number] 1P-20 Univers 13:30:00 13:30:00 ROSSANA [facility] 2020-07-23 2020-07-23 Outpatient STLMLC STLMLC [id number] Common 00:00:00 00:00:00 [facility] 2020-07-23 2020-07-23 Orders Doctor GUIDRY 1.2.840.114 [id number] Univers 00:00:00 00:00:00 Only Unassigned, KARIN 350.1.13.10 ity of [place] [facility] 4.2.7.2.686 Franco as [phone] [address] 2020-07-14 2020-07-14 Outpatient STLMLC STLMLC [id number] Common 00:00:00 00:00:00 [facility] 2020-06-18 2020-06-18 Outpatient [facility] [id number] Common 14:13:00 14:13:00 t [employer] [address] [facility] 2020-06-17 2020-06-17 Outpatient [facility] [id number] Common 11:15:00 11:15:[address] [facility] 2020-06-17 2020-06-17 Outpatient [facility] [id number] Common 10:40:00 10:40:00 [place] [address] [facility] 2020-06-16 2020-06-16 Outpatient [facility] [id number] Common 13:34:00 13:34:00 t [place] [address] [facility] 2020-06-08 2020-06-08 Outpatient [facility] [id number] Common 14:55:00 14:55:00 t [place] [address] [facility] 2020-05-25 2020-05-25 Out[facility] [id number] 1P-20 Univers 14:00:00 14:00:00 JEANIE [facility] 2020-05-25 2020-05-25 Out[facility] [id number] Univers 14:00:00 14:00[facility] 2020-04-28 2020-04-28 Outpatient Brazyolande [facility] [id number] Common 16:48:00 16:48:00 t [place] [address] [facility] 2020-04-24 2020-04-24 Office [facility] 1.2.845.067 [id number] Univers 10:15:34 10:56:19 Visit Jeanie Moon [employer] 350.1.13.10 it y of Surgical 4.2.7.2.686 [place] as Specialti [phone] Ak dical [address] 2020-04-24 2020-04-24 Outpatient R MARSHALL [facility] [id number] 1P-20 Univers 10:45:00 10:45:00 JEANIE [facility] 2020-04-24 2020-04-24 Outpatient [facility] [id number] Univers 10:45:00 10:45:00 JEANIE [facility] 2020-04-24 2020-04-24 Telephone [facility] 1.2.840.114 [id number] Univers 00:00:00 00:00:00 Jeanie Sarai [employer] 350.1.13.10 it y of Surgical 4.2.7.2.686 [place] as Specialti [phone] Ak dical es 198 [facility] 2020-04-22 2020-04-22 Outpatient R [facility] [id number] -[id number] Univers 14:00:00 14:00:00 [facility] 2020-04-22 2020-04-22 Outpatient R [facility] [id number] Univers 14:00:00 14:00:00 [facility] 2020-04-22 2020-04-22 Telephone Marshall [facility] 1.2.840.114 [id number] Univers 00:00:00 00:00:00 Jeanie [facility] 350.1.13.10 it y of Surgical 4.2.7.2.686 Franco as Specialti [phone] Ak dical es 198 [facility] 2020-04-21 2020-04-21 Telephone Marshall [facility] 1.2.840.114 [id number] [facility] 00:00:00 00:00:00 Jeanie [facility] 350.1.13.10 it y of Surgical 4.2.7.2.686 [place] as Specialti [phone] Ak dical es 198 [facility] 2020-04-20 2020-04-20 Hospital [facility] 1.2.840.114 [id number] Univers 13:18:00 23:59:00 Encounter Jeanie Gibson 350.1.13.10 it[place] of [place] 4[place]2.7.2.686 [place] [phone] [facility] [address] 2020-04-20 2020-04-20 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 [facility] 1.2.8 40.114 [id number] Univers 15:43:30 15:58:30 Visit Jeanie Olivares 350.1.13.10 it[place] of [place] 4.2.7.2.686 [place] [phone] Ak dical nal 353 [facility] 2020-04-20 2020-04-20 Office Marshall [facility] 1.2.264.211 [id number] Univers 14:51:38 15:28:40 Visit Jeanie [facility] 350.1.13.10 it y of Surgical 4.2.7.2.686 [place] as Specialti [phone] Me dical es 198 [facility] 2020-04-20 2020-04-20 Outpatient R MARSHALL [facility] [id number]-20 Univers 15:15:00 15:15:00 JEANIE [id number] [facility] 2020-04-20 2020-04-20 [facility] [id number] Univers 15:15:00 15:15:00 JEANIE ity [facility] 2020-04-20 2020-04-20 Telephone Marshall [facility] 1.2.840.114 [id number] Univers 00:00:00 00:00:00 Jeanie [facility] 350.1.13.10 it y of Surgical 4.2.7.2.686 [place] as Specialti [phone] Ak dical es 198 [facility] 2020-04-15 2020-04-15 Outpatient [facility] [id number] -[id number] Univers 15:40:00 15:40:00 [id number] ity [facility] 2020-04-14 2020-04-14 [facility] [id number] -[id number] Univers 16:00:00 16:00:00 MADHAV [id number] ity [facility] 2020-04-14 2020-04-14 Outpatient Mo CAM [facility] [id number] Univers 16:00:00 16:00:00 [facility] 2020-04-13 2020-04-13 Outpatient R [facility] [id number] -[id number] Univers 15:00:00 15:00:00 [id number] ity [facility] 2020-04-08 2020-04-08 Ancillary Cristopher Reece [facility] 1.2.840. 114 [id number] Univers 16:28:21 17:08:21 Visit Olivares Jeanie Moon [place] 350.1.13.10 ity [facility] 4.2.7.2.686 [place] Professio [phone] Ak dical nal 179 [facility] 2020-04-08 2020-04-08 Outpatient [facility] [id number] -[id number] Univers 16:20:00 16:20:00 [id number] ity [facility] 2020-04-07 2020-04-07 Outpatient [facility] [id number] Common 08:50:00 08:50:00 t [employer] [address] it [address] [facility] 2020-04-06 2020-04-06 Outpatient R [facility] [id number] -[id number] Univers 16:40:00 16:40:00 [id number] ity [facility] 2020-04-06 2020-04-06 Outpatient Brazyolande [facility] [id number] Common 13:20:00 13:20:[address] [facility] 2020-04-03 2020-04-03 Ancillary Milan Gloria Bruno [facility] 1 .2.840.114 [id number] Univers 15:07:26 15:47:26 Visit Jeanie Olivares 350.1.13.10 it[place].2.[place] [phone] Ak dical nal 179 [facility] 2020-04-03 2020-04-03 Outpatient [facility] [id number] -[id number] Univers 15:00:00 15:00:00 [id number] ity [facility] 2020-04-03 2020-04-03 Outpatient [facility]ande [facility] [id number] Common 11:22:00 11:22:00 t [employer] Spir it [address] [facility] 2020-04-02 2020-04-02 Outpatient [facility] [id number] -[id number] Univers 16:20:00 16:20:00 [id number] ity [facility] 2020-03-26 2020-03-26 Ancillary [place] Gloria Bruno [facility] 1 .2.840.114 [id number] Univers 14:01:58 14:41:58 Visit Jeanie Olivares 350.1.13.10 [place].2.[place].2.[place] [phone] Ak dical nal 179 [facility] 2020-03-26 2020-03-26 Outpatient R [facility] [id number] -[id number] Univers 14:00:00 14:00:00 ity [facility] 2020-03-26 2020-03-26 [facility] [id number] Univers 14:00:00 14:00:00 JEANIE [facility] 2020-03-17 2020-03-17 Outpatient [facility] [id number] Common 10:12:00 10:12:00 t [place] [employer] [address] Spir [address] [facility] 2020-03-17 2020-03-17 Outpatient [facility] [id number] Common 09:45:00 09:45:00 [place] [address] [facility] 2020-03-13 2020-03-13 Jefferson Cam [facility] 1.2.840.114 [id number] Univers 00:00:00 00:00:00 [facility] 350.1.13.10 it y of Surgical 4.2.7.2.686 Franco as Specialti [phone] Ak dical es 198 [facility] 2020-03-04 2020-03-04 Outpatient [facility] [id number] Univers 14:00:00 14:00:00 [id number] [facility] 2020-03-02 2020-03-02 Outpatient R [facility] [id number] -[id number] Univers 14:00:00 14:00:00 [id number] [facility] 2020-02-28 2020-02-28 Ancillary Claudine Reece [facility] 1.2.840 .114 [id number] Univers 13:40:00 14:20:00 Visit Jeanie Olivares 350.1.13.10 [place].2.[place] [phone] Ak dical nal 179 [facility] 2020-02-28 2020-02-28 Outpatient R [facility] [id number] -[id number] Univers 13:40:00 13:40:00 [id number] ity [facility] 2020-02-24 2020-02-24 Ancillary Arelis Mancia [facility] 1.2.840. 114 [id number] Univers 13:46:56 14:26:56 Visit Jeanie Olivares 350.1.13.10 it[place] 4.2.7.2.686 [place] [phone] Ak dical nal 179 [facility] 2020-02-24 2020-02-24 Outpatient R [facility] [id number] Univers 13:40:00 13:40:00 y [facility] 2020-02-24 2020-02-24 [facility]patient [facility] [id number] Univers 13:40:00 13:40:00 JEANIE [facility] 2020-02-18 2020-02-18 [facility] [id number] Univers 00:00:00 00:00:00 [facility] [id number] it y of Surgical [id number] [place] as Specialti [phone] Me dical es 198 [facility] 2020-01-29 2020-01-29 Outpatient R [facility] [id number] Univers 13:40:00 13:40:00 y [facility] 2020-01-27 2020-01-27 [facility] [id number] Univers 14:45:00 14:45:00 MADHAV [facility] 2020-01-27 2020-01-27 [facility] [id number] Univers 14:45:00 14:45:00 [facility] 2020-01-24 2020-01-24 [facility] [id number] Univers 00:00:00 00:00:00 [place] [facility] [facility] [id number] it y of Surgical 4.2.7.2.686 Franco as Specialti [phone] Me dical es 198 [facility] 2020-01-22 2020-01-22 Outpatient [facility] [id number] -[id number] Univers 15:40:00 15:40:00 ity [facility] 2020-01-22 2020-01-22 Outpatient [facility] 30 Common 08:39:00 08:39:00 t [employer] [facility] it [facility] 2020-01-20 2020-01-20 Outpatient R [facility] [id number] -[id number] Univers 15:40:00 15:40:00 ity [facility] 2020-01-20 2020-01-20 Outpatient [facility] [id number] Common 11:28:00 11:28:00 t [employer] [facility] it [facility] 2020-01-15 2020-01-15 Ancillary Gloria Sena [facility] 1 .2.840.114 [id number] Univers 14:13:47 15:21:49 Visit Jeanie Olivares 350.1.13.10 ity [facility] [place] [phone] Ak dical nal 179 [facility] 2020-01-15 2020-01-15 Outpatient [facility] [id number] -[id number] Univers 14:20:00 14:20:00 [id number] [facility] 2020-01-13 2020-01-13 Ancillary Chevy Cristopher Edwards [facility] 1.2.840. 114 [id number] Univers 15:19:19 15:59:19 Visit Jeanie Olivares 350.1.13.10 ity [facility] [place]2.7.2.[place] [phone] Ak dical nal 179 [facility] 2020-01-13 2020-01-13 Outpatient R [facility] [id number] -[id number] Univers 15:40:00 15:40:00 [id number] [facility] 2020-01-10 2020-01-10 Ancillary Chevy Claudine Elena [facility] 1.2.840 .114 [id number] Univers 11:22:12 12:16:12 Visit Jeanie Olivares 350.1.13.10 ity [facility] [place].7.2.[place] [phone] Ak dical nal 179 [facility] 2020-01-10 2020-01-10 Outpatient [facility] [id number] -[id number] Univers 11:20:00 11:20:00 ity [facility] 2020-01-10 2020-01-10 Orders Doctor GUIDRY 1.2.840.114 [id number] Univers 00:00:00 00:00:00 Only Unassigned, KARIN 350.1.13.10 ity of [facility] 4.2.7.2.686 Franco as [phone] [facility] [address] [place] 2020-01-08 2020-01-08 Outpatient [facility] [id number] -[id number] Univers 14:00:00 14:00:00 [id number] [facility] 2020-01-06 2020-01-06 Outpatient [facility] [id number] -[id number] Univers 13:40:00 13:40:00 [id number] ity [facility] 2020-01-06 2020-01-06 Telephone Marshall [facility] 1.2.840.114 [id number] Univers 00:00:00 00:00:00 Jeanie Moon [facility] 350.1.13.10 it y of Surgical 4.2.7.2.686 Franco as Specialti [phone] Ak dical es 198 [facility] 2020-01-03 2020-01-03 Outpatient R [facility] [id number] -[id number] Univers 10:40:00 10:40:00 [id number] ity [facility] 2020-01-02 2020-01-02 Out[facility] [id number] Common 14:00:00 14:00:00 t [employer] [facility] it Drive [facility] 2020-01-01 2020-01-01 Ancillary Kathy Fontanez [facility] 1.2.840. 114 [id number] Univers 13:53:42 15:14:13 Visit Jeanie Olivareston 350.1.13.10 ity of [place] 4.2.7.2.686 [place] Professio [phone] Me dical nal 179 [facility] 2020-01-01 2020-01-01 Outpatient [facility] [id number] -[id number] Univers 14:20:00 14:20:00 [id number] [facility] 2020-01-01 2020-01-01 Outpatient R [facility] [id number] Univers 14:20:00 14:20:00 ity [facility] 2020-01-01 2020-01-01 Office Tutu [facility] 1.2.840.114 [id number] Univers 10:33:21 10:48:21 Visit Madhav Cheng [facility] 350.1.13.10 it y of Surgical 4.2.7.2.686 Franco as Specialti [phone] Me dical es 198 [facility] 2020-01-01 2020-01-01 [facility] [id number] Univers 10:30:00 10:30:00 [facility] 2019-12-24 2019-12-24 [facility] [id number] Univers 13:22:40 23:59:00 [facility] 2019-12-24 2019-12-24 [facility] 1.2.840.114 [id number] Univers 13:22:00 23:59:00 Encounter [facility] 350.1.13.10 ity of Surgical 4.2.7.2.686 Franco as Specialti [phone] Me dical es 809 [facility] 2019-12-24 2019-12-24 [facility] 1.2.840.114 [id number] Univers 13:06:00 13:21:00 Visit [facility] 350.1.13.10 it y of Surgical 4.2.7.2.686 Franco as Specialti [phone] Me dical es 198 [facility] 2019-12-23 2019-12-23 Out[facility] [id number] Common 15:26:00 15:26:00 [employer] [facility] 2019-12-18 2019-12-18 Patient Doctor [facility] 1.2.840.114 [id number] Univers 00:00:00 00:00:00 Secure Msg Unassigned, Health 350.1.13.10 ity of [place] [facility] 4.2.7.2.686 Franco as Specialti [phone] Me dical es 198 [facility] 2019-12-17 2019-12-17 [facility] 1.2.840.114 [id number] Univers 13:14:41 14:01:42 Visit [facility] 350.1.13.10 it y of Surgical 4.2.7.2.686 Franco as Specialti [phone] Me dical es 198 [facility] 2019-12-17 2019-12-17 [facility] [id number] -[id number] Univers 13:30:00 13:30:00 MADHAV [id number] ity [facility] 2019-12-17 2019-12-17 Outpatient R CAM [facility] [id number] Univers 13:30:00 13:30:00 MADHAV ity [facility] 2019-12-15 2019-12-15 [facility]phone [facility] 1.2.840.114 [id number] Univers 00:00:00 00:00:00 Jeanie Moon [facility] 350.1.13.10 it y of Surgical 4.2.7.2.686 Franco as Special [phone] Ak dical es 198 [facility] 2019-12-13 2019-12-13 Orders Doctor BREA 1.2.840.114 [id number] Univers 00:00:00 00:00:00 Only Unassigned, KARIN 350.1.13.10 ity of [place] [facility] 4.2.7.2.686 Franco as [phone] [facility] [address] [place] 2019-12-09 2019-12-12 [facility] S[facility] [id number] Univers 07:00:00 13:20:00 [facility]-12[facility]09 2019-12-12 [facility] 1.2.840.114 [id number] Univers 07:00:00 13:20:00 Encounter Jeanie Gibson 350.1.13.10 it[place].2.686 [place] [phone] [facility] [address] [place] 2019-12-11 2019-12-11 Outpatient [facility] [facility] [phone] [facility] 07:26:00 07:26:00 _J_AH [id number] Family Practic e 2019-12-09 2019-12-09 Anesthesia Fariha Lee [facility] 1. 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 [facility] 1.2.8 40.114 [id number] Univers 14:09:10 14:24:10 Visit Jeanie Olivares 350.1.13.10 ity of [place].7.2.[place] [phone] Me dical nal 353 [facility] 2019-12-06 2019-12-06 Orders Doctor BREA 1.2.840.114 [id number] Univers 00:00:00 00:00:00 Only Unassigned, KARIN 350.1.13.10 ity of [place] [facility] 4.2.7.2.686 Franco as [phone] [address] 2019-12-05 2019-12-05 [facility] 1.2.840.114 [id number] Univers 00:00:00 00:00:00 Surgery Jeanie Moon [facility] 350.1.13.10 it y of Surgical 4.2.7.2.686 Franco as Specialti [phone] Me dical es 198 [facility] 2019-12-05 2019-12-05 Telephone Marshall [facility] 1.2.840.114 [id number] Univers 00:00:00 00:00:00 Jeanie Moon [employer] 350.1.13.10 it y of Surgical 4.2.7.2.686 Franco as Specialti [phone] Ak dical es 198 [facility] 2019-12-04 2019-12-04 Outpatient [facility] [id number] Common 13:45:00 13:45:00 t [employer] [facility] 2019-01-01 2019-12-02 Office Solo [facility] 1.2.840.114 [id number] Univers 10:19:05 17:54:28 Visit Mauricio Gibson 350.1.13.10 ity [place]2.7.2.[place] [phone] Ak dical nal 059 [facility] 2019-12-02 2019-12-02 Letter Marshall [facility] 1.2.680.350 [id number] Univers 00:00:00 00:00:00 (Out) Jeanie Moon [facility] 350.1.13.10 it y of Surgical 4.2.7.2.686 Franco as Specialti [phone] Ak dical es 198 [facility] 2019-12-02 2019-12-02 Telephone Marshall [facility] 1.2.840.114 [id number] Univers 00:00:00 00:00:00 Jeanie Moon Health 350.1.13.10 it y of Surgical 4.2.7.2.686 Franco as Specialti [phone] Ak dical es 198 [facility] 2019-12-02 2019-12-02 Letter Marshall [facility] 1.2.995.412 [id number] Univers 00:00:00 00:00:00 (Out) Jeanie Moon Health 350.1.13.10 it y of Surgical 4.2.7.2.686 Franco as Specialti [phone] Ak dical es 198 [facility] 2019-12-02 2019-12-02 Orders Doctor BREA Jay.2.840.114 [id number] Univers 00:00:00 00:00:00 Only Unassigned, KARIN 350.1.13.10 ity of [place] [facility] 4.2.7.2.686 Franco as [phone] [address] 2019-11-29 2019-11-29 Orders Doctor BREA 1.2.840.114 [id number] Univers 00:00:00 00:00:00 Only Unassigned, KARIN 350.1.13.10 ity of [place] [facility] 4.2.7.2.686 Franco as [phone] [address] 2019-11-27 2019-11-27 Out[facility] [id number] Common 11:15:00 11:15:00 t [employer] Sp[address] it [address] [facility] 2019-11-15 2019-11-15 Orders Doctor BREA Jay.2.840.114 [id number] Univers 00:00:00 00:00:00 Only Unassigned, KARIN 350.1.13.10 ity of [place] [facility] 4.2.7.2.686 Franco as [phone] [address] 2019-11-14 2019-11-14 [facility] 1.2.840.114 [id number] Univers 15:28:00 23:59:00 Encounter Madhav [facility] 350.1.13.10 ity of Surgical 4.2.7.2.686 Franco as Specialti [phone] Me dical es 809 [facility] 2019-11-14 2019-11-14 Outpatient R [facility] [id number] Univers 14:45:00 15:38:34 [facility] 2019-11-14 2019-11-14 Office [facility] 1.2.840.114 [id number] Univers 14:50:54 15:05:54 Visit Madhav [facility] 350.1.13.10 it y of Surgical 4.2.7.2.686 Franco as Specialti [phone] Ak dical es 198 [facility] 2019-11-14 2019-11-14 [facility] [id number] Univers 10:30:00 10:30:[address] [facility] [place] 2019-11-08 2019-11-08 [facility] [id number] Univers 08:15:00 08:15:[address] [facility] [place] 2019-11-07 2019-11-07 [facility] [id number] Univers 10:30:00 10:30:[address] [facility] [place] 2019-11-04 2019-11-04 Orders Doctor GUIDRY 1.2.840.114 [id number] Univers 00:00:00 00:00:00 Only Unassigned, KARIN 350.1.13.10 ity of [place] [facility] 4.2.7.2.686 Franco as [phone] [address] 2019-10-31 2019-10-31 Outpatient [facility] [id number] Common 17:29:00 17:29:00 [employer] [facility] 2019-09-30 2019-09-30 Outpatient [facility] [id number] Common 16:54:00 16:54:00 [place] [address] [facility] 2019-09-04 2019-09-04 Outpatient [facility] [id number] Common 09:00:00 09:00:00 [place] [address] [facility] 2019-06-13 2019-06-13 [place] [facility] 1.2.840.114 [id number] Univers 00:00:00 00:00:00 [facility] 350.1.13.10 it y of Surgical 4.2.7.2.686 Franco as Specialti [phone] Ak dical es 198 [place] 2019-05-30 2019-05-30 Outpatient [facility] [id number] Common 10:45:00 10:45:00 t Specialty/U [facility] 2019-05-20 2019-05-20 [facility] [id number] Common 15:00:00 15:00:00 [place] [address] [facility] 2019-05-08 2019-05-08 Out[facility] [id number] Common 09:45:00 09:45:00 [place] [address] [facility] 2019-04-03 2019-04-03 Out[facility] [id number] Common 12:00:00 12:00:00 [place] [address] Family [facility] 2019-03-01 2019-03-01 Out[facility] [id number] Common 09:51:00 09:51:00 [place] [address] [facility] 2019-02-27 2019-02-27 Out[facility] [id number] Common 13:45:00 13:45:00 [place] [address] [facility] 2019-02-11 2019-02-11 Outpatient Mo OLIVARES [facility] [id number] Univers 16:00:00 16:54:05 JEANIE russo [facility] 2019-02-04 2019-02-04 Out[facility] [id number] Common 14:34:00 14:34:00 [place] [address] [facility] 2019-01-30 2019-01-30 Outpatient [facility] [id number] Common 10:33:00 10:33:00 [place] [address] [facility] 2019-01-29 2019-01-29 Outpatient [facility] [id number] Common 14:00:00 14:00:00 [place] [address] [facility] 2019-01-04 2019-01-04 Outpatient Mo OLIVARES [facility] [id number] Univers 14:45:00 14:45:00 JEANIE russo [facility] 2018-12-26 2018-12-26 Out[facility] [id number] Common 16:11:00 16:11:00 [place] [address] [facility] 2018 2018 Outpatient [facility] [id number] Common 14:30:00 14:30:00 [place] [address] [facility] 2018-12-12 2018-12-12 Out[facility] [id number] Common 14:31:00 14:31:00 [place] [address] [facility] 2018-12-11 2018-12-11 Out[facility] [id number] Common 14:00:00 14:00:00 [place] [address] [facility] 2018-12-11 2018-12-11 Outpatient [facility] [id number] Common 09:30:00 09:30:00 t [facility] 2018-12-05 2018-12-05 Out[facility] [id number] Common 09:21:00 09:21:00 [place] [address] [facility] 2018-12-04 2018-12-04 Outpatient [facility] [id number] Common 14:45:00 14:45:00 t [facility] 2018-12-04 2018-12-04 Outpatient [facility] [id number] Common 12:18:00 12:18:00 [place] [address] [facility] 2018-11-28 2018-11-28 Outpatient [facility] [id number] Common 14:45:00 14:45:00 [place] [address] [facility] 2018-11-27 2018-11-27 Outpatient [facility] [id number] Common 12:23:00 12:23:00 [place] [address] [facility] 2018-11-05 2018-11-05 Outpatient [facility] [id number] Common 15:27:00 15:27:00 [place] [address] [facility] 2018-10-29 2018-10-29 Outpatient [facility] [id number] Common 15:06:00 15:06:00 [place] [address] [facility] 2018-10-02 2018-10-02 Outpatient [facility] [id number] Common 14:30:00 14:30:00 [place] [address] [facility] Results Test Description Test Time Test Comments Results Result Comments Source CBC WITH DIFFERENTIAL 2020-04-20 21:02:00 Test Item Value Reference Range Interpretation Comme nts WBC (test code = 6690-2) See_Comment [A utomated message] The system which ge nerated this result transmit shyann reference range: 4.30 - 1 1.10 10*3/?L. The reference r ronnie was not used to interpr et this result as normal/abnor mal. RBC (test code = 789-8) See_Comment [Au tomated message] The system which ge nerated this result transmit shyann reference range: 3.93 - 5 .25 10*6/?L. The reference r ronnie was not used to interpr et this result as normal/abnor mal. HGB (test code = 718-7) 14.1 g/dL 11.6-15 HCT (test code = 4544-3) 44.3 % 35.7-45.2 MCV (test code = 787-2) 88.1 fL 80.6-95.5 MCH (test code = 785-6) 28.0 pg 25.9-32.8 MCHC (test code = 786-4) 31.8 g/dL 31.6-35.1 RDW-SD (test code = 10183-3) 42.5 fL 39-49.9 RDW-CV (test code = 788-0) 13.2 % 12-15.5 PLT (test code = 777-3) See_Comment H [Au tomated message] The system which ge nerated this result transmit shyann reference range: 166 - 35 8 10*3/?L. The reference range was not used to interpret th is result as normal/abnormal . MPV (test code = 00505-6) 9.0 fL 9.5-12.9 L NRBC/100 WBC (test code = See_Comment [ Automated message] The [id number]) system which [employer] nerated this result transmit shyann reference range: 0.0 - 10 .0 /100 WBCs. The reference r ronnie was not used to interpr et this result as normal/abnor mal. NRBC x10^3 (test code = <0.01 See_Comment [Au tomated message] The 5453937818) system which [employer] nerated this result transmit shyann reference range: 10*3/?L. The reference range was not u sed to interpret this result as normal/abnormal . GRAN MAT (NEUT) % (test code 81.5 % = 770-8) IMM GRAN % (test code = 0.60 % 8820524341) LYMPH % (test code = 736-9) 15.4 % MONO % (test code = 5905-5) 2.2 % EOS % (test code = 713-8) 0.1 % BASO % (test code = 706-2) 0.2 % GRAN MAT x10^3(ANC) (test 9.02 10*3/uL 1.88-7.09 H code = 2336911176) IMM GRAN x10^3 (test code = 0.07 10*3/uL 0-0.06 H 5305282508) LYMPH x10^3 (test code = 1.70 10*3/uL 1.32-3.29 731-0) MONO x10^3 (test code = 0.24 10*3/uL 0.33-0.92 L 742-7) EOS x10^3 (test code = <0.03 0.03-0.39 L 711-2) BASO x10^3 (test code = <0.03 0.01-0.07 704-7) Lab Interpretation (test Abnormal code = 30315-6) [facility] [id number] 19:50:00 No acute fracture. Small joint effusion and mild soft tissue swelling. Stable alignment of the kneearthroplasty without hardware complication EXAM: XR KNEE <3 VW LEFT HISTORY: Left knee pain - Standing knee AP and lateral Standing left knee AP andlateral COMPARISON: 12/24/2019 FINDINGS: Changes of total knee arthroplasty are seen with stable componentalignment. A small joint effusion is present along with mild soft tissueswelling. No acute fracture is seen. [facility], Radiant Results Inft User - 04/20/2020 2:51 PM CDTEXAM:XR KNEE <3 VW LEFTHISTORY:Left knee pain - Standing knee AP and lateral Standing left knee AP andlateralCOMPARISON:12/24/2019FINDINGS: Changes of total knee arthroplasty are seenwith stable componentalignment. A small joint effusion is present along with mild soft tissueswelling. No acute fracture is seen.IMPRESSIONNo acute fracture.Small joint effusion and mild soft tissue swelling.Stable alignment of the knee arthroplasty without hardware complicationUnNorth [facility] Surgical Center HospitalXR KNEE <3 VW [id number] 19:52:13Status post total knee replacement with press-fit tibia and femur and excellent alignment no signs of periprosthetic fracture she does have a tibial tubercle osteophyte that is intact. ?[facility]2019-12-12 17:37:00 Test Item Value Reference Range Interpretation Comments POCT GLU (test code = 3775722012) 136 mg/dL 70-110 H Lab Interpretation (test code = Abnormal 12973-3) [facility] GLUCOSE (AUTOMATED)2019-12-12 14:18:00 Test Item Value Reference Range Interpretation Comments POCT GLU (test code = 5002319944) 102 mg/dL 70-110 Lab Interpretation (test code = Normal 67129-9) [facility] GLUCOSE (AUTOMATED)2019-12-12 02:54:00 Test Item Value Reference Range Interpretation Comments POCT GLU (test code = 1990547663) 111 mg/dL 70-110 H Lab Interpretation (test code = Abnormal 71969-9) [facility] GLUCOSE (AUTOMATED)2019-12-11 23:20:00 Test Item Value Reference Range Interpretation Comments POCT GLU (test code = 1209728959) 120 mg/dL 70-110 H Lab Interpretation (test code = Abnormal 38963-1) [facility] GLUCOSE (AUTOMATED)2019-12-11 17:55:00 Test Item Value Reference Range Interpretation Comments POCT GLU (test code = 8380116266) 122 mg/dL 70-110 H Lab Interpretation (test code = Abnormal 77579-9) [facility] GLUCOSE (AUTOMATED)2019-12-11 13:46:00 Test Item Value Reference Range Interpretation Comments POCT GLU (test code = 9895554440) 96 mg/dL 70-110 Lab Interpretation (test code = Normal 22366-8) [facility] GLUCOSE (AUTOMATED)2019-12-11 02:14:00 Test Item Value Reference Range Interpretation Comments POCT GLU (test code = 2452663839) 134 mg/dL 70-110 H Lab Interpretation (test code = Abnormal 47066-1) [facility] GLUCOSE (AUTOMATED)2019-12-10 22:28:00 Test Item Value Reference Range Interpretation Comments POCT GLU (test code = 5426713407) 126 mg/dL 70-110 H Lab Interpretation (test code = Abnormal 55150-4) [facility] GLUCOSE (AUTOMATED)2019-12-10 18:58:00 Test Item Value Reference Range Interpretation Comments POCT GLU (test code = 1288597144) 110 mg/dL 70-110 Lab Interpretation (test code = Normal 35242-6) [facility] METABOLIC PANEL (NA, K, CL, CO2, GLUCOSE, BUN, CREATININE, CA)2019-12-10 12:25:00 Test Item Value Reference Range Interpretation Comments NA (test code = 139 mmol/L 135-145 5264376298) K (test code = 3.9 mmol/L 3.5-5 6161126604) CL (test code = 101 mmol/L 98-108 2652721350) CO2 TOTAL (test code = 29 mmol/L 23-31 3488949929) AGAP (test code = 2-16 9387083384) BUN (test code = 11 mg/dL 7-23 1718798552) GLUCOSE (test code = 144 mg/dL 70-110 H 3416993787) CREATININE (test code = 0.54 mg/dL 0.5-1.04 4178072287) CALCIUM (test code = 9.3 mg/dL 8.6-10.6 0235260642) eGFR Calculation mL/min/1.73m2 (Non-) (test code = 6526081791) eGFR Calculation mL/min/1.73m2 () (test code = 2577734708) ALIDA (test code = ALIDA) Association of Glomerular Filtration Rate (GFR) and Staging of Kidney Disease* + --+ --+ ------+| GFR (mL/min/1.73 m2) ?| With Kidney Damage ?| ?Without Kidney Damage+ --------+ --------+ +| ?>90 ?| ?Stage one ?| ? Normal ?+ ---+ ---+ -------+| ?60-89 ?| ?Stage two ?| ? Decreased GFR ? + --+ --+ ------+| ?30-59 ?| ?Stage three ?| ? Stage three ? + --+ --+ ------+| ?15-29 ?| ?Stage four ? | ? Stage four ?+ ---+ ---+ -------+| ?<15 (or dialysis) ? ?| ?Stage five ? | ? Stage five ?+ ---+ ---+ -------+ *Each stage assumes the associated GFR level has been in effect for at least three months. ?Stages 1 to 5, with or without kidney disease, indicate chronic kidney disease. Notes: Determination of stages one and two (with eGFR >59mL/min/1.73 m2) requires estimation of kidney damage for at least three months as defined by structural or functional abnormalities of the kidney, manifested by either:Pathological abnormalities or Markers of kidney damage (including abnormalities in the composition of the blood or urine or abnormalities in imaging tests). Lab Interpretation Abnormal (test code = 52497-9) [facility] WITH [id number] 12:16:00 Test Item Value Reference Range Interpretation Comments WBC (test code = See_Comment H [Automated 6890-2) message] The sy stem which generated this result transmitted reference range : 4.30 - 11.10 10*3/?L. The reference range was not used to interpret this result as normal/abnormal . RBC (test code = See_Comment [Automated 789-8) message] The sy stem which generated this result transmitted reference range : 3.93 - 5.25 10*6/?L. The reference range was not used to interpret this result as normal/abnormal . HGB (test code = 11.8 g/dL 11.6-15 718-7) HCT (test code = 37.6 % 35.7-45.2 4544-3) MCV (test code = 90.6 fL 80.6-95.5 787-2) MCH (test code = 28.4 pg 25.9-32.8 785-6) MCHC (test code = 31.4 g/dL 31.6-35.1 L 786-4) RDW-SD (test code = 41.1 fL 39-49.9 63304-7) RDW-CV (test code = 12.5 % 12-15.5 788-0) PLT (test code = See_Comment [Automated 777-3) message] The sy stem which generated this result transmitted reference range : 166 - 358 10*3/ ?L. The reference r ronnie was not used to interpret this result as normal/abnormal . MPV (test code = 9.9 fL 9.5-12.9 46634-5) NRBC/100 WBC (test See_Comment [Automat ed code = 8866332610) message] The system which generated this result transmitted reference range : 0.0 - 10.0 /100 WBCs. The refer ence range was not u sed to interpret th is result as normal/abnormal . NRBC x10^3 (test code <0.01 See_Comment [Auto mated = 1574337084) message] The s ystem which generated this result transmitted reference range : 10*3/?L. The reference range was not used to interpret this result as normal/abnormal . GRAN MAT (NEUT) % 76.5 % (test code = 770-8) IMM GRAN % (test code 0.60 % = 9302355150) LYMPH % (test code = 14.5 % 736-9) MONO % (test code = 8.3 % 5905-5) EOS % (test code = 0.0 % 713-8) BASO % (test code = 0.1 % 706-2) GRAN MAT x10^3(ANC) 8.91 10*3/uL 1.88-7.09 H (test code = 1290048610) IMM GRAN x10^3 (test 0.07 10*3/uL 0-0.06 H code = 3858753460) LYMPH x10^3 (test code 1.69 10*3/uL 1.32-3.29 = 731-0) MONO x10^3 (test code 0.97 10*3/uL 0.33-0.92 H = 742-7) EOS x10^3 (test code = <0.03 0.03-0.39 L 711-2) BASO x10^3 (test code <0.03 0.01-0.07 = 704-7) Lab Interpretation Abnormal (test code = 60741-8) [facility] GLUCOSE (AUTOMATED)2019-12-10 11:25:00 Test Item Value Reference Range Interpretation Comments POCT GLU (test code = 4820133003) 169 mg/dL 70-110 H Lab Interpretation (test code = Abnormal 87181-7) [facility] GLUCOSE (AUTOMATED)2019-12-10 02:02:00 Test Item Value Reference Range Interpretation Comments POCT GLU (test code = 5878449015) 212 mg/dL 70-110 H Lab Interpretation (test code = Abnormal 48056-8) [facility]-12-09 22:20:00 Test Item Value Reference Interpretation Comments Range HGB A1C (test code = See_Comment H [Autom ated 4548-4) message] The system which generated this result transmitted reference range : 4.0 - 6.0 % NGSP. The reference range was not used to interpret this result as normal/abnormal . ALIDA (test code = %A1C (NGSP) ALIDA) Interpretation (ADA)4.8-5.6 ? ? Normal or (Non-Diabetic Range)5.7-6.4 ? ? Increased Risk (Pre-Diabetic)>6.5 ?Diabetes Indicated Lab Interpretation Abnormal (test code = 57305-0) [facility] views [id number] 19:04:07 Interval total knee arthroplasty without complication. No acute bony abnormality. Preliminary Report Dictated by Resident: Gina Frank MD., have reviewed this study and agree with the abovereport. EXAM: XR KNEE <3 VW LEFT HISTORY: total knee Maintain knee immobilizer/bra ce/splint/cast COMPARISON: 11/14/2019. FINDINGS: Images of the left knee demonstrate interval changesof a total kneearthroplasty in satisfactory alignment and without hardware complication.No acute fracture or dislocation is identified. Surgical macy overliethe anterior knee. A partially visualized drainage catheter terminates inthe infrapatellar region. Postsurgical changes in the form of soft tissueswelling and subcutaneous gas surrounding the knee joint. [facility], Radiant Results Inft User - 12/09/2019 1:05 PM CSTEXAM: XR KNEE <3 VW LEFTHISTORY: total knee Maintain knee immobilizer/brace/splint/castCOMPARISON: 11/14/2019.FINDINGS:Images of the left knee demonstrate interval changes of a totalkneearthroplasty in satisfactory alignment and without hardware complication.No acute fracture or dislocation is identified. Surgical macy overliethe anterior knee. A partially visualized drainage catheter terminates inthe infrapatellar region. Postsurgical changes in the form of soft tissueswelling and subcutaneous gas surrounding the knee joint.IMPRESSIONInterval total knee arthroplasty without complication.No acute bony abnormality.Preliminary Report Dictated by Resident: Lyle Valencia MD., have reviewed this study and agree with the abovereport. [facility] canal [id number] 16:23:03 Mitchell Pa CRNA ? ? 12/09/2019 ?3:30 PM Nerve Block Laterality: LeftSurgical Anesthesia: no Start Time: 12/09/2019 10:02 AMEnd Time: 12/09/2019 10:20 AMResident/MANAGER CONVENTION: Mabel Nguyen CRNAPerformed by: resident/HARDIKPreanesthetic timeout completed prior to procedure: patient identified,IV checked, site marked, risks and benefits discussed, surgical consentPatient position: supine.Monitoring: continuous pulse ox, blood pressure and ECGInjection Technique: single-shotNerve Block Needle Gauge: 20g.Needle Length: 4.0Number of Attempts: 1Technique: Ultrasound guided, Negative aspiration and Intermittent aspiration during injection Medications Given: Regional:Bupiv 0.25% 12.5 mLBupiv 0.5% 12.5 mLdexamethasone 10 mg/ml 1 mL Additional Notes:Block performed by Nidia Shah CRNA [facility] Centerad[facility] canal [id number] 16:23:03Mitchell Pa CRNA ? ? 12/09/2019 ?3:30 PM Nerve Block Laterality: LeftSurgical Anesthesia: no Start Time: 12/09/2019 10:02 AMEnd Time: 12/09/2019 10:20 HARLEENesident/MANAGER CONVENTION: Mabel Nguyen CRNAPerformed by: resident/HARDIKPreanesthetic timeout completed prior to procedure: patient identified,IV checked, site marked, risks and benefits discussed, surgical consentPatient position: supine.Monitoring: c ontinuous pulse ox, blood pressure and ECGInjection Technique: single-shotNerve Block Needle Gauge: 20g.Needle Length: 4.0Number of Attempts: 1Technique: Ultrasound guided, Negative aspiration and Intermittent aspiration during injection Medications Given: Regional:Bupiv 0.25% 12.5 mLBupiv 0.5% 12.5 mL dexamethasone 10 mg/ml 1 mL Additional Notes:Block performed by Niida Shah, HARDIK [facility] CenterType and Screen - ONCE [id number] 14:40:06 Test Item Value Reference Range Interpretation Comments ABO & RH (test code A Negative Performe d at [facility] = 20) [facility] [place], [place] [id number] Free: [phone] A No. [id number] IAT (test code = Negative Performed a t [facility] 1185) [facility] [place] [address]Toll Free: [phone] A No. [id number] [facility]AGE >30DAYS)2019-12-09 13:38:00 Test Item Value Reference Range Interpretation Comments POCT Glu (age>30days) (test code = 134 mg/dL 70-110 A 3342) Lab Interpretation (test code = Abnormal 67500-0) [facility]"
[2022-05-14] MEDS ORDERED: BEBTELOVIMAB 175 MG/2 ML VIAL IV ONE (21:51)
[2022-05-14] MEDS ORDERED: METHYLPREDNISOLONE 125 MG INJ ONE (22:39)
[2022-05-14] MEDS ORDERED: DIPHENHYDRAMINE 50 MG/ML VIAL ONE (22:39)
[2022-05-14] MEDS ORDERED: LORazepam 2 MG/ML VIAL ONE (23:03)
--- NOTE | 2022-05-14 23:39 | ER ---
Nurse's Notes [facility] Name: Eliza Hill Age: 61 yrs Sex: Female : 1960 Arrival Date: 05/14/2022 Time: 18:18 Bed 16 Private MD: Diagnosis: Coronavirus infection, unspecified Presentation: 05/14 19:13 Chief complaint: Patient states: PATIENT STATED HER TESTED POSITIVE FOR COVID 1 AND SHE NEEDS TO BE TESTED. Coronavirus screen: Vaccine status: Patient reports receiving the 2nd dose of the covid vaccine. Ebola Screen: Patient negative for fever greater than or equal to 101.5 degrees Fahrenheit, and additional compatible Ebola Virus Disease symptoms. Initial Sepsis Screen: Does the patient meet any 2 criteria? No. Patient's initial sepsis screen is negative. Does the patient have a suspected source of infection? No. Patient's initial sepsis screen is negative. Risk Assessment: Do you want to hurt yourself or someone else? Patient reports no desire to harm self or others. 19:13 Method Of Arrival: Ambulatory [facility] 19:13 Acuity: JENNA [address] [facility] Triage Assessment: 19:16 General: Appears in no apparent distress. Behavior is calm, cooperative, appropriate [facility] for age. Pain: Denies pain. Historical: - Allergies: 19:16 Tramadol HCl; 1 19:16 Wellbutrin; [facility] - Home Meds: 19:16 atorvastatin Oral [Active]; levothyroxine oral [Active]; losartan Oral [Active]; [facility] - PMHx: 19:16 Arthritis; Chronic pain; COPD; Diabetes - NIDDM; Hypothyroidism; Hypertension; 1 Osteoporosis; - Immunization history:: Adult Immunizations up to date. - Social history:: Smoking status: Patient denies any tobacco usage or history of. Screenin:30 Fall Risk Total Edwards Fall Scale indicates High Risk Score (45 or more points). Fall lp1 prevention measures have been instituted. Family Present and informed to notify staff if the need to leave the bedside As available patient and family educated on Fall Prevention Program and Strategies. 05/15 00:02 Abuse screen: Denies threats or abuse. Denies injuries from another. Nutritional lp1 screening: No deficits noted. Tuberculosis screening: No symptoms or risk factors identified. Assessment: 00:16 Reassessment: at bedside for patient discharge. General: Appears in no apparent lp1 distress. Behavior is calm, cooperative. Pain: Denies pain. Neuro: Level of Consciousness is awake, alert, obeys commands, Oriented to person, place, time, situation, Gait is steady. Cardiovascular: Patient's skin is warm and dry. Respiratory: Respiratory effort is even, unlabored. Derm: Skin is pink, warm \\T\\ dry. Musculoskeletal: No deficits noted. 00:17 Reassessment: Patient given sandwich and juice per request. 1 Vital Signs: 05/14 19:13 BP 145 / 88; Pulse 69; Resp 20; Temp 97.9(TE); Pulse Ox 98% on R/A; Weight 99.79 kg; 1 Height 5 ft. 3 in. (160.02 cm); Pain 0/10; 23:15 BP 137 / 56; Pulse 63; Resp 18; Pulse Ox 97% on R/A; lp1 05/15 00:18 BP 142 / 70; Pulse 60; Resp 18; Pulse Ox 97% on R/A; Pain 0/10; lp1 05/14 19:13 Body Mass Index 38.97 (99.79 kg, 160.02 cm) [facility] ED Course: 05/14 18:18 Patient arrived in ED. as 19:09 Joaquim Duff PA is PHCP. [facility] 19:09 Balta Barreto DO is Attending Physician. [facility] 19:[address] [facility] 19:17 Arm band placed on right wrist. [facility] 19:46 COVID-19 SARS RT PCR (Document "Date of Onset" if Symptomatic) Sent. [facility] 05/15 00:02 Patient has correct armband on for positive identification. lp1 00:02 No provider procedures requiring assistance completed. 1 00:17 IV discontinued, No redness/swelling at site. Pressure dressing applied. lp1 Administered Medications: 05/14 21:59 Drug: Bebtelovimab 1 application Route: IV; Rate: calculated rate; Site: right vc1 antecubital; 22:35 Drug: SOLU-Medrol (methylPrednisoLONE) 125 mg Route: IVP; Site: right antecubital; vc1 23:00 Drug: Ativan (LORazepam) 0.5 mg Route: IVP; Site: right antecubital; vc1 05/15 00:18 Follow up: Response: No adverse reaction; Marked relief of symptoms; RASS: Alert and lp1 Calm (0) 05/14 23:01 Drug: diphenhydrAMINE 12.5 mg Route: IVP; Site: right antecubital; vc1 Medication: 05/15 00:02 VIS not applicable for this client. lp1 Outcome: 05/14 23:39 Discharge ordered by MD. skelton 05/15 00:17 Discharged to home with significant other. lp1 Condition: good Discharge instructions given to patient, Instructed on discharge instructions, follow up and referral plans. medication usage, Demonstrated understanding of instructions, follow-up care, medications, Prescriptions given X 1. 00:18 Patient left the ED. lp1 Signatures: Joaquim Duff PA PA jmm Martinez, Amelia as Pena, Laura, RN RN lp1 Elizabeth Proctor RN RN vc1 Belgica Finn RN RN 1
--- NOTE | 2022-05-14 23:39 | EDPHYS ---
Physician Documentation [facility] Name: Eliza Hill Age: 61 yrs Sex: Female : 1960 Arrival Date: 05/14/2022 Time: 18:18 Bed 16 Private MD: ED Physician Balta Barreto HPI: 05/14 19:19 This 61 yrs old Female presents to ER via Ambulatory with complaints of r/o covid. jmm 19:19 The patient or guardian reports cough. Onset: The symptoms/episode began/occurred jmm gradually. Modifying factors: The symptoms are alleviated by nothing. the symptoms are aggravated by nothing. Associated signs and symptoms: Pertinent positives: sore throat. It is unknown whether or not the patient has had similar symptoms in the past. Multiple family members just tested positive for COVID. Historical: - Allergies: 19:16 Tramadol HCl; bh1 19:16 Wellbutrin; bh1 - Home Meds: 19:16 atorvastatin Oral [Active]; levothyroxine oral [Active]; losartan Oral [Active]; bh1 - PMHx: 19:16 Arthritis; Chronic pain; COPD; Diabetes - NIDDM; Hypothyroidism; Hypertension; bh1 Osteoporosis; - Immunization history:: Adult Immunizations up to date. - Social history:: Smoking status: Patient denies any tobacco usage or history of. ROS: 19:19 Cardiovascular: Negative for chest pain, palpitations, and edema. jmm 19:19 Constitutional: Positive for body aches, chills. 19:19 Respiratory: Positive for cough. 19:19 All other systems are negative. Exam: 19:19 Constitutional: This is a well developed, well nourished patient who is awake, alert, jmm and in no acute distress. Head/Face: atraumatic. Eyes: EOMI, no conjunctival erythema appreciated ENT: Moist Mucus Membranes Neck: Trachea midline, Supple Chest/axilla: Normal chest wall appearance and motion. Cardiovascular: Regular rate and rhythm. No edema appreciated Respiratory: Normal respirations, no respiratory distress appreciated Abdomen/GI: Non distended Back: Normal ROM Skin: General appearance color normal MS/ Extremity: Moves all extremities, no obvious deformities appreciated, no edema noted to the lower extremities Neuro: Awake and alert Psych: Behavior is normal, Mood is normal, Patient is cooperative and pleasant Vital Signs: 19:13 BP 145 / 88; Pulse 69; Resp 20; Temp 97.9(TE); Pulse Ox 98% on R/A; Weight 99.79 kg; 1 Height 5 ft. 3 in. (160.02 cm); Pain 0/10; 23:15 BP 137 / 56; Pulse 63; Resp 18; Pulse Ox 97% on R/A; lp1 05/15 00:18 BP 142 / 70; Pulse 60; Resp 18; Pulse Ox 97% on R/A; Pain 0/10; lp1 05/14 19:13 Body Mass Index 38.97 (99.79 kg, 160.02 cm) 1 MDM: 05/14 19:51 Patient medically screened. [facility] 23:37 Data reviewed: vital signs, nurses notes. Counseling: I had a detailed discussion with costa the patient and/or guardian regarding: the historical points, exam findings, and any diagnostic results supporting the discharge/admit diagnosis, the need for outpatient follow up, to return to the emergency department if symptoms worsen or persist or if there are any questions or concerns that arise at home. ED course: After monoclonal antibodies were administered. Patient states that he felt lightheaded. Patient subsequently developed seizure-like activity. Patient soon was able to speak without difficulty and exhibited no postictal symptoms. Patient was able to text without difficulty with her family while being observed.. 05/14 19:19 Order name: COVID-19 SARS RT PCR (Document "Date of Onset" if Symptomatic); Complete [facility] Time: 20:53 05/14 20:54 Order name: Saline Lock; Complete Time: 21:59 [facility] 05/14 22:40 Order name: EKG; Complete Time: 22:40 [facility] Administered Medications: 21:59 Drug: Bebtelovimab 1 application Route: IV; Rate: calculated rate; Site: right vc1 antecubital; 22:35 Drug: SOLU-Medrol (methylPrednisoLONE) 125 mg Route: IVP; Site: right antecubital; vc1 23:00 Drug: Ativan (LORazepam) 0.5 mg Route: IVP; Site: right antecubital; vc1 05/15 00:18 Follow up: Response: No adverse reaction; Marked relief of symptoms; RASS: Alert and lp1 Calm (0) 05/14 23:01 Drug: diphenhydrAMINE 12.5 mg Route: IVP; Site: right antecubital; vc1 Disposition: 05/15 06:32 Co-signature as Attending Physician, Balta Barreto DO I was immediately available on-site ms3 in the Emergency Department for consultation in the care of the patient.. Disposition Summary: 05/14/22 23:39 Discharge Ordered Location: Home [facility] Condition: Stable [facility] Diagnosis - Coronavirus infection, unspecified [facility] Followup: [facility] - With: Private Physician - When: 2 - 3 days - Reason: Recheck today's complaints, Continuance of care, Re-evaluation by your physician Discharge Instructions: - Discharge Summary Sheet [facility] - COVID-19 [facility] Forms: - Medication Reconciliation Form [facility] - Thank You Letter [facility] - Antibiotic Education [facility] - Prescription Opioid Use [facility] Prescriptions: - PAXLOVID - take 300 milligram by ORAL route 2 times per day for 5 days; 1 packet; Refills: [facility] 0, Product Selection Permitted Signatures: Dispatcher [employer] EDMS Joaquim Duff PA PA jmm Sims, Marcus, DO DO ms3 Elizabeth Proctor RN RN vc1 Belgica Finn RN RN 1 Francie Beckman RN lp1 Corrections: (The following items were deleted from the chart) 05/14 22:42 22:40 EKG - Nurse/Tech ordered. costa skelton 22:42 22:40 Labs collected and sent ordered. costa skelton 22:42 22:40 Suicide Screening ([place]) ordered. costa skelton 22:44 22:40 Urine Dipstick-Ancillary ordered. [facility]1
[2022-05-15 00:54] VITALS: TEMP 97.9
[2022-05-15 00:56] VITALS: O2SAT 97
[2022-05-15 00:57] VITALS: BP 142/70
== END 2022-05-15 00:18 | disposition home or self-care (01) ==
LOC: ER 18:15
DX: U07.1 COVID-19 (principal); E11.9 Type 2 diabetes mellitus without complications; I10 Essential (primary) hypertension; E03.9 Hypothyroidism, unspecified; J44.9 Chronic obstructive pulmonary disease, unspecified
CPT/HCPCS: 82947; 96375; 96374; 99283; U0003; J1200; J2930

== ENCOUNTER 2022-05-19 11:34 | Emergency (ER) | payer OTHER ==
--- NOTE | 2022-05-19 12:56 | RAD REPORT ---
EXAM DESCRIPTION: RAD - Chest Single View - 05/19/2022 12:25 pm CLINICAL HISTORY: COUGH COMPARISON: Two view chest 03/03/2020 TECHNIQUE: AP portable chest image was obtained 05/19/2022 12:25 pm . FINDINGS: Lungs are clear. Interstitial pattern matches comparison. Heart and vasculature are normal . No measurable pleural effusion and no pneumothorax. No acute bony abnormality seen. No acute aortic findings suspected. IMPRESSION: No acute cardiopulmonary process. No significant change from comparison study.
--- NOTE | 2022-05-19 13:50 | EDPHYS ---
Physician Documentation [facility] Name: Eliza Hill Age: 61 yrs Sex: Female : 1960 Arrival Date: 05/19/2022 Time: 11:36 Bed 12 Private MD: Brenton [facility] ED Physician Jeff Hernandez HPI: 05/19 13:47 This 61 yrs old Female presents to ER via Ambulatory with complaints of covid+, low pm1 pulse ox. 13:47 The patient or guardian reports low reading on her home pulse ox at home. Reports pm1 readings in the 70s. Onset: The symptoms/episode began/occurred. 13:47 Onset: The symptoms/episode began/occurred today, checked pulse ox reading today. pm1 Severity of symptoms: in the emergency department the symptoms are unchanged. Modifying factors: The symptoms are alleviated by nothing, the symptoms are aggravated by nothing. Associated signs and symptoms: Pertinent positives: productive cough at night. Ran out of her Guaifenesin with codeine and it helps her cough and congestion. Patient has been using her albuterol treatment at home as needed, Pertinent negatives: chest pain, fever, shortness of breath. The patient has not experienced similar symptoms in the past. The patient has been recently seen at the [facility] Emergency Department, Patient diagnosed with covid 4 days ago in the ER here. Historical: - Allergies: 11:48 Wellbutrin; bm7 11:48 Tramadol HCl; bm7 11:48 Latex, Natural Rubber; bm7 - PMHx: 11:48 Arthritis; Chronic pain; COPD; Diabetes - NIDDM; Hypertension; Hypothyroidism; bm7 Osteoporosis; - Immunization history:: Adult Immunizations up to date. - Social history:: Smoking status: Patient/guardian denies using tobacco products. ROS: 13:47 Constitutional: Negative for fever, chills, and weight loss, Cardiovascular: Negative pm1 for chest pain, palpitations, and edema. 13:47 Abdomen/GI: Negative for abdominal pain, nausea, vomiting, diarrhea, and constipation, MS/Extremity: Negative for injury and deformity, Skin: Negative for injury, rash, and discoloration, Neuro: Negative for headache, weakness, numbness, tingling, and seizure. 13:47 Respiratory: Positive for cough, Negative for dyspnea on exertion, shortness of breath, wheezing. 13:47 All other systems are negative. Exam: 13:47 Constitutional: This is a well developed, well nourished patient who is awake, alert, pm1 and in no acute distress. Head/Face: Normocephalic, atraumatic. 13:47 Skin: Warm, dry with normal turgor. Normal color with no rashes, no lesions, and no evidence of cellulitis. MS/ Extremity: Pulses equal, no cyanosis. Neurovascular intact. Full, normal range of motion. 13:47 Eyes: Exam is negative for acute changes, Periorbital structures: appear normal, Pupils: no acute changes, Extraocular movements: no acute changes, Conjunctiva: no acute changes, no injection. 13:47 ENT: Exam is negative for acute changes, Mouth: Lips: normal, moist, Oral mucosa: normal, pink and intact, moist. 13:47 Cardiovascular: Exam negative for acute changes, Rate: normal, Rhythm: regular, Pulses: no pulse deficits are appreciated, Heart sounds: normal, normal S1and S2. 13:47 Respiratory: Exam negative for acute changes, respiratory distress, shortness of breath, Breath sounds: are clear throughout. 13:47 Neuro: Exam negative for acute changes, Orientation: is normal, Mentation: is normal, Motor: is normal, moves all fours. Vital Signs: 11:43 BP 133 / 82; Pulse 80; Resp 20; Temp 97.3(TE); Pulse Ox 98% on R/A; Weight 99.79 kg bm7 (R); Height 5 ft. 2 in. (157.48 cm); Pain 0/10; 11:43 Body Mass Index 40.24 (99.79 kg, 157.48 cm) bm7 MDM: 13:18 Patient medically screened. pm1 13:47 ED course: The patient placed her personal pulse ox on her finger and she will be what pm1 she believed to be 74% saturation. Reported to the patient that it was actually her heart rate that she was mistaking for her O2 saturation. Patient with heart rate 74 and pulse ox saturation of 95%. Patient will be given cough medication for symptomatic relief. Patient's most bothersome symptom is cough at night. She ran out of her guaifenesin with codeine will give her Tussionex in the ER and discharged her home with a prescription for guaifenesin with codeine. 13:47 Data reviewed: vital signs. Data interpreted: Pulse oximetry: on room air is 95 %. pm1 Interpretation: normal. 13:52 ED course: [place] reviewed. pm1 05/19 12:08 Order name: Chest Single View XRAY; Complete Time: 13:16 bm7 Administered Medications: No medications were administered Disposition Summary: 05/19/22 13:49 Discharge Ordered Location: Home pm1 Problem: new pm1 Symptoms: have improved pm1 Condition: Stable pm1 Diagnosis - Coronavirus infection, unspecified pm1 Followup: pm1 - With: Emergency Department - When: As needed - Reason: Worsening of condition Followup: pm1 - With: Private Physician - When: 2 - 3 days - Reason: Recheck today's complaints, Continuance of care, Re-evaluation by your physician Discharge Instructions: - Discharge Summary Sheet pm1 - COVID-19 pm1 - COVID-19 Frequently Asked Questions pm1 - 10 Things You Can Do to Manage Your COVID-19 Symptoms at Home - [facility] pm1 - COVID-19: Quarantine vs. Isolation - [facility] pm1 Forms: - Medication Reconciliation Form pm1 - Thank You Letter pm1 - Antibiotic Education pm1 - Prescription Opioid Use pm1 Prescriptions: - Guaifenesin AC 10-100 mg/5 mL Oral Liquid - take 10 milliliters by ORAL route every 4 hours As needed; 240 milliliter; pm1 Refills: 0, Product Selection Permitted Signatures: Dispatcher [employer] EDRed Burr NP DYE BOX OPERATOR pm1 Bernarda Carrillo, RN RN bm7
--- NOTE | 2022-05-19 13:50 | ER ---
Nurse's Notes [facility] Name: Eliza Hill Age: 61 yrs Sex: Female : 1960 Arrival Date: 05/19/2022 Time: 11:36 Bed 12 Private MD: Reji Farris Diagnosis: Coronavirus infection, unspecified Presentation: 05/19 11:46 Chief complaint: Patient states: I was diagnosed with COVID here on Monday and this bm7 morning I was checking my oxygen because I was coughing and it said 72 % on my home reader and my doctor said to come right in. Coronavirus screen: Vaccine status: Patient reports receiving the 2nd dose of the covid vaccine. Patient reports receiving the 1st dose of the Covid vaccine. Client presents with at least one sign or symptom that may indicate coronavirus-19. Standard/surgical mask placed on the client. Ebola Screen: No symptoms or risks identified at this time. Initial Sepsis Screen: Does the patient meet any 2 criteria? No. Patient's initial sepsis screen is negative. Does the patient have a suspected source of infection? No. Patient's initial sepsis screen is negative. Risk Assessment: Do you want to hurt yourself or someone else? Patient reports no desire to harm self or others. Onset of symptoms was May 05, 2022. Care prior to arrival: None. 11:46 Method Of Arrival: Ambulatory 7 11:46 Acuity: JENNA 3 bm7 Triage Assessment: 11:48 General: Appears in no apparent distress. uncomfortable, Behavior is anxious, pt states bm7 my brother and I all have COVID and we can not all get along because we are all together all the time and I have PTSD from my and it makes me feel worse. Pain: Denies pain. EENT: No deficits noted. No signs and/or symptoms were reported regarding the EENT system. Neuro: Level of Consciousness is awake, alert, obeys commands, Oriented to person, place, time. Cardiovascular: Heart tones S1 S2 Patient's skin is warm and dry. Chest pain is denied. Respiratory: Airway is patent Respiratory effort is even, unlabored, Respiratory pattern is regular, symmetrical, Breath sounds are clear bilaterally. Denies cough, shortness of breath on exertion, pain with cough. GI: No deficits noted. No signs and/or symptoms were reported involving the gastrointestinal system. : No deficits noted. No signs and/or symptoms were reported regarding the genitourinary system. Derm: No deficits noted. No signs and/or symptoms reported regarding the dermatologic system. Musculoskeletal: No deficits noted. No signs and/or symptoms reported regarding the musculoskeletal system. Historical: - Allergies: 11:48 Wellbutrin; bm7 11:48 Tramadol HCl; bm7 11:48 Latex, Natural Rubber; bm7 - PMHx: 11:48 Arthritis; Chronic pain; COPD; Diabetes - NIDDM; Hypertension; Hypothyroidism; bm7 Osteoporosis; - Immunization history:: Adult Immunizations up to date. - Social history:: Smoking status: Patient/guardian denies using tobacco products. Screenin:20 Abuse screen: Denies threats or abuse. Denies injuries from another. Nutritional iw screening: No deficits noted. Tuberculosis screening: No symptoms or risk factors identified. Fall Risk None identified. Assessment: 12:00 General: Appears in no apparent distress. Behavior is calm, cooperative. Neuro: Level iw of Consciousness is awake, alert, obeys commands, Oriented to person, place, time, situation, Moves all extremities. Full function. Cardiovascular: Patient's skin is warm and dry. Respiratory: Reports cough that is non-productive, Airway is patent Respiratory effort is even, unlabored, Respiratory pattern is regular, symmetrical, Breath sounds are clear bilaterally. GI: Abdomen is non-distended. Derm: Skin is intact, is healthy with good turgor. Musculoskeletal: Range of motion: intact in all extremities. Vital Signs: 11:43 BP 133 / 82; Pulse 80; Resp 20; Temp 97.3(TE); Pulse Ox 98% on R/A; Weight 99.79 kg bm7 (R); Height 5 ft. 2 in. (157.48 cm); Pain 0/10; 11:43 Body Mass Index 40.24 (99.79 kg, 157.48 cm) bm7 ED Course: 11:36 Patient arrived in ED. as 11:37 Reji Farris DO is Private Physician. as 11:43 Arm band placed on right wrist. bm7 11:48 Triage completed. bm7 12:00 Patient has correct armband on for positive identification. iw 12:00 No provider procedures requiring assistance completed. Patient did not have IV access iw during this emergency room visit. 12:26 Chest Single View XRAY In Process Unspecified. EDMS 13:16 Kanwal Mcdonald, RN is Primary Nurse. iw 13:16 Red Amos NP is PHCP. pm1 13:16 Jeff Hernandez MD is Attending Physician. pm1 Administered Medications: No medications were administered Medication: 12:00 VIS not applicable for this client. iw Outcome: 13:49 Discharge ordered by MD. pm1 14:20 Discharged to home ambulatory, with family. iw 14:20 Condition: good 14:20 Discharge instructions given to patient, Instructed on discharge instructions, follow up and referral plans. Demonstrated understanding of instructions, follow-up care, medications, Prescriptions given X 1. 14:21 Patient left the ED. iw Signatures: Dispatcher [employer] EDMS Judith Rangel as Kanwal Mcdonald, ARTUR RN iw Red Amos NP MARKETING LIAISON pm1 Bernarda Carrillo RN RN bm7 Corrections: (The following items were deleted from the chart) 12:08 11:46 Acuity: JENNA 4 bm7 bm7
[2022-05-19] MEDS ORDERED: HYDROCODONE/CHLORPHEN 5 ML/OSYR ONE (14:16)
[2022-05-19 15:10] VITALS: BP 133/82; TEMP 97.3; O2SAT 98
== END 2022-05-19 14:21 | disposition home or self-care (01) ==
LOC: ER 11:34
DX: U07.1 COVID-19 (principal); J44.9 Chronic obstructive pulmonary disease, unspecified; I10 Essential (primary) hypertension; E11.9 Type 2 diabetes mellitus without complications; Z88.5 Allergy status to narcotic agent; Z88.8 Allergy status to other drugs, medicaments and biological substances; Z91.040 Latex allergy status; Z91.048 Other nonmedicinal substance allergy status
CPT/HCPCS: 71045; 99283

== ENCOUNTER 2022-07-17 19:46 | Emergency (ER) | payer OTHER ==
--- OUTSIDE RECORDS SUMMARY | 2022-07-17 20:17 | XMS REPORT | Continuity of Care Document ---
:1960 Author Organization [facility] t Address [address] [place] [address] Care Team Providers Name Role Phone Sharpless Primary Care Physician Reji Farris Attending Clinician Unavailable RADIOLOGY Attending Clinician Unavailable Radiology Attending Clinician Unavailable Doctor Unassigned, [place] Attending Clinician Unavailable Nurse, Adc Pob Immunization Attending Clinician Unavailable Larry Banerjee DO Attending Clinician Elissa Chanel RN Attending Clinician Unavailable Katerina Medellin Attending Clinician Love Bruce Attending Clinician LOVE ROBERTS Attending Clinician Unavailable Pcp, Patient Does Not Have A Attending Clinician [phone] Neil_S_AH Attending Clinician Unavailable Erin_Juan_BROOKE Attending Clinician Unavailable JEANIE OLIVARES Attending Clinician Unavailable Madhav Klein Attending Clinician Jeanie Olivares MD Attending Clinician ROSSANA JUARES Attending Clinician Unavailable Blanquita DOTSON, Rossana Perkins Attending Clinician Hyacinth HUMAN RESOURCES RECRUITERVeronica Torres Attending Clinician VERONICA CLAROS Attending Clinician Unavailable Ige-Odunuga_J_AH Attending Clinician Unavailable Pob, 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 Attending Clinician Unavailable MADHAV CAM Attending Clinician Unavailable Chevy OYSTERMAN, Cristopher Edwards Attending Clinician Unavailable Milan Bruno PT, Gloria Attending Clinician Unavailable Chevy CRANE, Claudine Parker Attending Clinician Unavailable Blanche PT, Arelis Pineda Attending Clinician Unavailable Huseyin PT, Kathy Attending Clinician Unavailable Fariha Lee CRNA Attending Clinician [phone] Attending Clinician Mabel Armenta CRNA, MD, Mauricio Attending Clinician LAURA EASON Admitting Clinician Unavailable Miller_S_AH Admitting Clinician Unavailable Lorraine-Claudyo_A_AH Admitting Clinician Unavailable Ige-Odunmarisol_J_AH Admitting Clinician Unavailable JEANIE OLIVARES Admitting Clinician Unavailable Marshall DOTSON, Jeanie Moon Admitting Clinician Payers Payer Name Policy Type Policy Number Effective Date Expiration Date Skylar horton [employer] [place] [id number] 2018 CLASSIC NO PREMIUM 00:00:00 [facility] [place] [id number] [place] (MEDICARE REPLACEMENT/ADVANT AGE - HMO) Problems Condition Condition Condition Status Onset Resolution Last Treating Co mments Source Name Details Category Date Date Treatment Clinician Date Type 2 Type 2 Problem Active 2019-10 [facility] diabetes Diabetes 0-21 Family mellitus Mellitus 00:00: Practi c without without 00 e complicati Complicati on on Chronic Chronic Problem Active 2019-10 [facility] obstructiv Obstructiv 0-21 Fa kathleen e lung e Lung 00:00: Practic disease Disease 00 e Primary Primary Disease Active Overview: Univ ers osteoarthr osteoarthr 2-13 Formatt[place] ity of itis of itis of 00:00: g of this [place] left knee left knee 00 note Medi mac might be Branch different from the original. 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 e aura Aura Female Female Problem Active [facility] stress Stress 9-25 Family incontinen Incontinen 00:00: Pr actic ce ce 00 e Osteoarthr Osteoarthr Problem Active [place] [facility] itis itis 9-25 Family 00:00: Practic 00 e Depressive Depressive Problem Active [place] disorder Disorder 7-28 Family 00:00: Practic 00 e Insomnia Insomnia Problem Active Timur ge 7-28 Family 00:00: Practic 00 e Essential Essential Problem Active Carlo chavez hypertensi Hypertensi 7- Fa kathleen on on 00:00: Practic 00 e Gastroesop Gastroesop Problem Active [place] [facility] hageal hageal 7-28 Family reflux Reflux 00:00: Practic disease Disease 00 e Total knee Total knee Disease Active U nivers replacemen replacemen 3-18 it y of t status t status 00:00: [place] 00 Medical Branch Primary Primary Disease Active Overview: Univ ers osteoarthr osteoarthr 3-13 Formattin ity of itis of itis of 00:00: g of this [place] right knee right knee 00 note Me dical might be Branch different from the original. Added automatic ally from request for surgery [id number] Morbid Morbid Disease Active Univers obesity obesity 6-20 ity of with body with body 00:[place] mass index mass index 00 Me dical of of Branch 40.0-49.9 40.0-49.9 Hypoxia Hypoxia Disease Active Univers 6-20 ity of 00:00: [place] 00 Medical Branch Morbid Morbid Disease Active [...] nivers pain pain 0-13 ity of 00:00: [place] 00 Medical Branch Allergies, Adverse Reactions, Alerts Allergy Allergy Status Severity Reaction(s) Onset Inactive Treating Comm ents Source Name Type Date Date Clinician Gabapent Propensi Active Other - See Weight U nivers in ty to comments 04-20 gain and ity of adverse 00:00: sleep [place] reaction 00 walk Medical s Branch GABAPENT DRUG Active Other-Cmnt Univ ers IN INGREDI - ity of 00:00: [place] [facility] DICLOFEN DRUG Active Swelling Univer s AC INGREDI 3-17 ity of SODIUM 00:00: [place] [facility] Diclofen Propensi Active Swelling 0 redness Uni vers ac ty to 3-17 ity of Sodium adverse 00:00: [place] reaction Medical s Branch Latex, Propensi Active Itching Univers Natural ty to 3-19 ity of Rubber adverse 00:00: [place] reaction Medical s Branch LATEX, Drug Active Med ITCHING Univers NATURAL Class 3-19 ity of RUBBER 00:00: Medical Branch Latex, Propensi Active Itching Univers Natural ty to 3-19 ity of Rubber adverse 00:00: [place] reaction Medical s Branch Bupropio Propensi Active Itching Unive rs n Hcl ty to 6-15 ity of adverse 00:00: [place] reaction Medical s Branch Zolpidem Propensi Active Unknown - Sleep Uni vers ty to See comments 04-06 walk ity of adverse 00:00: [place] reaction Medical s Branch BUPROPIO DRUG Active ITCHING Univers N HCL INGREDI 6-15 ity of 00:00: [place] [facility] ZOLPIDEM DRUG Active Unknown-Cmnt Un edmond INGREDI 6-15 ity of 00:00: [place] [facility] Codeine Propensi Active Itching 2014-10 Hyper- is Uni vers ty to 0-13 able to ity of adverse 00:00: take but [place] reaction has to Medical s have a Branch [...] N INGREDI 0-13 ity of 00:00: [place] 00 [facility] ZOLPIDEM Allergy Active 2012-[address] [facility] 00 [place] CODEINE Allergy Active Itching 2012-[address] [facility] Zolpidem Drug Active 2012-[address] [facility] [facility] Codeine Drug Active Itching 2012-[address] [facility] [address] [facility] 00 [facility] Bupropio Drug Active Itching 2012-[address] [facility] [facility] Medical 00 [facility] BUPROPIO Allergy Active Itching 2012-[address] [facility] [facility] 00:[facility]: Medical 00 [place] Toradol Adverse Active Info Not Common Reaction Available [facility] Wellbutr Adverse Active Info Not Commo n in Reaction Available [facility] TORADOL Allergy Active Moderate Anaphylaxis [place] to to severe Family substanc Practic e e WELLBUTR Allergy Active Moderate Hives Ding ge IN to to severe Family substanc Practic e e Social History Social Habit Start Date Stop Date Quantity Comments Source Exposure to Not sure [facility] SARS-CoV-2 (event) [facility] History of tobacco Cigarette Smoker University of use [facility] Tobacco use and 2019-01-04 2019-01-04 Never used Universit y of exposure 00:00:00 00:00:00 [facility] Cigarettes smoked 2019-01-04 2019-01-04 Univers ity of current (pack per 00:00:00 00:00:00 ) - Reported Branch Cigarette 2019-01-04 2019-01-04 University of pack-years 00:00:00 00:00:00 [facility] Alcohol intake 2013-09-11 2013-09-[address] [facility] 00:[facility] 00:00:00 non-drinker of Medical Ce nter alcohol (finding) Sex Ass[birth year] At [birth year] [facility] Pages 00:00:00 00:00:00 [facility] Center Smoking Status Start Date Stop Date Source Never smoker [facility] Former smoker 2019-01-01 00:00:00 2019-01-01 00:00:00 [facility] Medications Ordered Filled Start Stop Current Ordering [...] days. Indication s: cough MELOXICAM 2019-10 Yes [id number] TAKE 1 Univers 7.5 mg 2-29 05 TABLET BY ity of tablet 00:00: MOUTH [place] 00 EVERY DAY Medical Branch MELOXICAM 2019-10 2020- No [id number] TAKE 1 Univers 7.5 mg 2-29 12-31 05 TABLET BY ity of tablet 00:00: 00:00 MOUTH [place] 00 :00 EVERY DAY Medical Branch MELOXICAM 2019-10 2020- No [id number] TAKE 1 Univers 7.5 mg 2-29 12-31 05 TABLET BY ity of tablet 00:00: 00:00 MOUTH [place] 00 :00 EVERY DAY Medical Branch DICLOFENAC 2019-10 Yes [id number] APPLY TO Univers SODIUM 1 % 11-21 05 AFFECTED ity o f gel 00:00: AREA TWICE [place] 00 A DAY Medical NEEDED FOR Branch PAIN APPLY 2 GRAMS DO NOT EXCEED 4 GRAMS IN A DAY DICLOFENAC 2019-10 Yes [id number] APPLY TO Univers SODIUM 1 % 11-21 05 AFFECTED ity o f gel 00:00: AREA TWICE [place] 00 A DAY Medical NEEDED FOR Branch PAIN APPLY 2 GRAMS DO NOT EXCEED 4 GRAMS IN A DAY DICLOFENAC 2019-10 2020- No [id number] APPLY TO Univers SODIUM 1 % 11-21 05 AFFECTED ity of gel 00:00: 00:00 AREA TWICE [place] 00 :00 A DAY Medical NEEDED FOR Branch PAIN APPLY 2 GRAMS DO NOT EXCEED 4 GRAMS IN A DAY DICLOFENAC 2019-10 2020- No [id number] APPLY TO Univers SODIUM 1 % 11-21 05 AFFECTED ity of gel 00:00: 00:00 AREA TWICE [place] 00 :00 A DAY Medical NEEDED FOR Branch PAIN APPLY 2 GRAMS DO NOT EXCEED 4 GRAMS IN A DAY MELOXICAM 2019-10 Yes [id number] TAKE 1 Univers 7.5 mg 1-05 05 TABLET BY ity of tablet 00:00: MOUTH [place] 00 EVERY DAY Medical Branch MELOXICAM 2019-10 Yes [id number] TAKE 1 Univers 7.5 mg 1-05 05 TABLET BY ity of tablet 00:00: MOUTH [place] 00 EVERY DAY Medical Branch MELOXICAM 2019-10 Yes [id number] TAKE 1 Univers 7.5 mg 1-05 05 TABLET BY ity of tablet 00:00: MOUTH [place] 00 EVERY DAY Medical Branch MELOXICAM 2019-10 Yes [id number] TAKE 1 Univers 7.5 mg 1-05 05 TABLET BY ity of tablet 00:00: MOUTH [place] 00 EVERY DAY Medical Branch MELOXICAM 2019-10 Yes [id number] TAKE 1 Univers 7.5 mg 1-05 05 TABLET BY ity of tablet 00:00: MOUTH [place] 00 EVERY DAY Medical Branch MELOXICAM 2019-10 Yes [id number] TAKE 1 Univers 7.5 mg 1-05 05 TABLET BY ity of tablet 00:00: MOUTH [place] 00 EVERY DAY Medical Branch MELOXICAM 2019-10 Yes [id number] TAKE 1 Univers 7.5 mg 1-05 05 TABLET BY ity of tablet 00:00: MOUTH [place] 00 EVERY DAY Medical Branch MELOXICAM 2020-1 2020- No [id number] TAKE 1 Univers 7.5 mg 10-27 05 TABLET BY ity of tablet 00:00: 00:00 MOUTH [place] 00 :00 EVERY DAY [facility] meloxicam 2020-0 2020- No 7.5mg Univer s (MOBIC) 04-24 ity of tablet 7.5 17:00: 04:59 [place] mg 00 :00 [facility] meloxicam 2020-0 2020- No 7.5mg Univer s (MOBIC) 04-24 ity of tablet 7.5 17:00: 04:59 [place] mg 00 :00 [facility] meloxicam 2019-0 2020- No 7.5mg Univer s (MOBIC) 04-24 ity of tablet 7.5 17:00: 04:59 [place] mg 00 :00 [facility] meloxicam 2020-0 Yes 7.5mg Take 1 Unive rs 7.5 mg 7-03 tablet by ity of tablet 00:00: mouth [place] 00 daily. [facility] meloxicam 2019-0 Yes 7.5mg Take 1 Unive rs 7.5 mg 7-03 tablet by ity of tablet 00:00: mouth [place] 00 daily. [facility] meloxicam 2020-0 Yes 7.5mg Take 1 Unive rs 7.5 mg 7-03 tablet by ity of tablet 00:00: mouth [place] 00 daily. [facility] meloxicam 2020- No 7.5mg Take 1 Univ ers 7.5 mg 7- 11-05 tablet by ity of tablet 00:00: 00:00 mouth [place] 00 :00 daily. [facility] calcium 2020-0 Yes Take by Univers carbonate/v 04-20 mouth. ity of itamin D3 20:44: [place] (CALCIUM 32 [facility] 500 + D [place] ORAL) Cholecalcif 2019-0 Yes Take by Uni vers romi, 6 mouth. ity of Vitamin D3, 20:44: [place] (D3-1999) [address] [place] [address] 50 mcg [place] (2,000 unit) capsule MILK 2020-0 Yes 350mg Take 350 Univers THISTLE 6-29 mg by ity of ORAL 20:44: mouth. [address] evening 2020-0 Yes 100mg Take 100 Unive rs primrose 6-29 mg by ity of oil 20:44: mouth. [place] (EVENING 32 Medical PRIMROSE Branch ORAL) calcium 2020-0 Yes Take by Univers carbonate/v 6-29 mouth. ity of itamin D3 20:44: [place] (CALCIUM 32 Medical 500 + D Branch ORAL) Cholecalcif 2020-0 Yes Take by Uni vers romi, 6-29 mouth. ity of Vitamin D3, 20:44: [place] (D3) Medical 50 mcg Branch (2,000 unit) capsule MILK 2020-0 Yes 350mg Take 350 Univers THISTLE 6-29 mg by ity of ORAL 20:44: mouth. [place] [address] Medical Branch evening 2020-0 Yes 100mg Take 100 Unive rs primrose 6-29 mg by ity of oil 20:44: mouth. [place] (EVENING 32 Medical PRIMROSE Branch ORAL) calcium 2020-0 Yes Take by Univers carbonate/v 6-29 mouth. ity of itamin D3 20:44: [place] (CALCIUM 32 Medical 500 + D Branch ORAL) Cholecalcif 2020-0 Yes Take by Uni vers romi, 6-29 mouth. ity of Vitamin D3, 20:44: [place] (D3) Medical 50 mcg Branch (2,000 unit) capsule MILK 2020-0 Yes 350mg Take 350 Univers THISTLE 6-29 mg by ity of ORAL 20:44: mouth. [address] evening 2020-0 Yes 100mg Take 100 Unive rs primrose 6-29 mg by ity of oil 20:44: mouth. [place] (EVENING 32 Medical PRIMROSE Branch ORAL) calcium 2020-0 Yes Take by Univers carbonate/v 6-29 mouth. ity of itamin D3 20:44: [place] (CALCIUM 32 Medical 500 + D Branch ORAL) Cholecalcif 2020-0 Yes Take by Uni vers romi, 6-29 mouth. ity of Vitamin D3, 20:44: [place] (D3) Medical 50 mcg Branch (2,000 unit) capsule MILK 2020-0 Yes 350mg Take 350 Univers THISTLE 6-29 mg by ity of ORAL 20:44: mouth. [address] evening 2020-0 Yes 100mg Take 100 Unive rs primrose 6-29 mg by ity of oil 20:44: mouth. [place] (EVENING 32 Medical PRIMROSE Branch ORAL) calcium 2020-0 Yes Take by Univers carbonate/v 6-29 mouth. ity of itamin D3 20:44: [place] (CALCIUM 32 Medical 500 + D Branch ORAL) Cholecalcif 2020-0 Yes Take by Uni vers romi, 6-29 mouth. ity of Vitamin D3, 20:44: [place] () Medical 50 mcg Branch (2,000 unit) capsule MILK 2020-0 Yes 350mg Take 350 Univers THISTLE 6-29 mg by ity of ORAL 20:44: mouth. [place] [address] Medical Branch evening 2020-0 Yes 100mg Take 100 Unive rs primrose 6-29 mg by ity of oil 20:44: mouth. [place] (EVENING 32 Medical PRIMROSE Branch ORAL) calcium 2020-0 Yes Take by Univers carbonate/v 6-29 mouth. ity of itamin D3 20:44: [place] (CALCIUM 32 Medical 500 + D Branch ORAL) Cholecalcif 2020-0 Yes Take by Uni vers romi, 6-29 mouth. ity of Vitamin D3, 20:44: [place] (D3) Medical 50 mcg Branch (2,000 unit) capsule MILK 2020-0 Yes 350mg Take 350 Univers THISTLE 6-29 mg by ity of ORAL 20:44: mouth. [place] [address] Medical Branch evening 2020-0 Yes 100mg Take 100 Unive rs primrose 6-29 mg by ity of oil 20:44: mouth. [place] (EVENING 32 Medical PRIMROSE Branch ORAL) calcium 2020-0 Yes Take by Univers carbonate/v 6-29 mouth. ity of itamin D3 20:44: [place] (CALCIUM 32 Medical 500 + D Branch ORAL) Cholecalcif 2020-0 Yes Take by Uni vers romi, 6-29 mouth. ity of Vitamin D3, 20:44: [place] () Medical 50 mcg Branch (2,000 unit) capsule MILK 2020-0 Yes 350mg Take 350 Univers THISTLE 6-29 mg by ity of ORAL 20:44: mouth. [place] [address] Medical Branch evening 2020-0 Yes 100mg Take 100 Unive rs primrose 6-29 mg by ity of oil 20:44: mouth. [place] (EVENING 32 Medical PRIMROSE Branch ORAL) calcium 2020-0 Yes Take by Univers carbonate/v 6-29 mouth. ity of itamin D3 20:44: [place] (CALCIUM 32 Medical 500 + D Branch ORAL) Cholecalcif 2020-0 Yes Take by Uni vers romi, 6-29 mouth. ity of Vitamin D3, 20:44: [place] (D3) 32 Medical 50 mcg Branch (2,000 unit) capsule MILK 2020-0 Yes 350mg Take 350 Univers THISTLE 6-29 mg by ity of ORAL 20:44: mouth. [place] [address] Medical Branch evening 2020-0 Yes 100mg Take 100 Unive rs primrose 6-29 mg by ity of oil 20:44: mouth. [place] (EVENING 32 Medical PRIMROSE Branch ORAL) calcium 2020-0 Yes Take by Univers carbonate/v 6-29 mouth. ity of itamin D3 20:44: [place] (CALCIUM 32 Medical 500 + D Branch ORAL) Cholecalcif 2020-0 Yes Take by Uni vers romi, 6-29 mouth. ity of Vitamin D3, 20:44: [place] () 32 Medical 50 mcg Branch (2,000 unit) capsule MILK 2020-0 Yes 350mg Take 350 Univers THISTLE 6-29 mg by ity of ORAL 20:44: mouth. [place] [address] Medical Branch evening 2020-0 Yes 100mg Take 100 Unive rs primrose 6-29 mg by ity of oil 20:44: mouth. [place] (EVENING 32 Medical PRIMROSE Branch ORAL) calcium 2020-0 Yes Take by Univers carbonate/v 6-29 mouth. ity of itamin D3 20:44: [place] (CALCIUM 32 Medical 500 + D Branch ORAL) Cholecalcif 2020-0 Yes Take by Uni vers romi, 6-29 mouth. ity of Vitamin D3, 20:44: [place] () Medical 50 mcg Branch (2,000 unit) capsule MILK 2020-0 Yes 350mg Take 350 Univers THISTLE 6-29 mg by ity of ORAL 20:44: mouth. [address] Branch evening 2020-0 Yes 100mg Take 100 Unive rs primrose 6-29 mg by ity of oil 20:44: mouth. [place] (EVENING 32 Medical PRIMROSE Branch ORAL) calcium 2020-0 Yes Take by Univers carbonate/v 6-29 mouth. ity of itamin D3 20:44: [place] (CALCIUM 32 Medical 500 + D Branch ORAL) Cholecalcif 2020-0 Yes Take by Uni vers romi, 6-29 mouth. ity of Vitamin D3, 20:44: [place] (D3) 32 Medical 50 mcg Branch (2,000 unit) capsule MILK 2020-0 Yes 350mg Take 350 Univers THISTLE 6-29 mg by ity of ORAL 20:44: mouth. [place] [address] Medical Branch evening 2020-0 Yes 100mg Take 100 Unive rs primrose 6-29 mg by ity of oil 20:44: mouth. [place] (EVENING 32 Medical PRIMROSE Branch ORAL) calcium 2020-0 Yes Take by Univers carbonate/v 6-29 mouth. ity of itamin D3 20:44: [place] (CALCIUM 32 Medical 500 + D Branch ORAL) Cholecalcif 2020-0 Yes Take by Uni vers romi, 6-29 mouth. ity of Vitamin D3, 20:44: [place] (D3) Medical 50 mcg Branch (2,000 unit) capsule MILK 2020-0 Yes 350mg Take 350 Univers THISTLE 6-29 mg by ity of ORAL 20:44: mouth. [address] evening 2020-0 Yes 100mg Take 100 Unive rs primrose 6-29 mg by ity of oil 20:44: mouth. [place] (EVENING Medical PRIMROSE Branch ORAL) calcium 2020-0 Yes Take by Univers carbonate/v 6-29 mouth. ity of itamin D3 20:44: [place] (CALCIUM 32 Medical 500 + D Branch ORAL) Cholecalcif 2020-0 Yes Take by Uni vers romi, 6-29 mouth. ity of Vitamin D3, 20:44: [place] (D3) Medical 50 mcg Branch (2,000 unit) capsule MILK 2020-0 Yes 350mg Take 350 Univers THISTLE 6-29 mg by ity of ORAL 20:44: mouth. [address] evening 2020-0 Yes 100mg Take 100 Unive rs primrose 6-29 mg by ity of oil 20:44: mouth. [place] (EVENING 32 Medical PRIMROSE Branch ORAL) calcium 2020-0 Yes Take by Univers carbonate/v 6-29 mouth. ity of itamin D3 20:44: [place] (CALCIUM 32 Medical 500 + D Branch ORAL) Cholecalcif 2020-0 Yes Take by Uni vers romi, 6-29 mouth. ity of Vitamin D3, 20:44: [place] (D3) Medical 50 mcg Branch (2,000 unit) capsule MILK 2020-0 Yes 350mg Take 350 Univers THISTLE 6-29 mg by ity of ORAL 20:44: mouth. [address] evening 2020-0 Yes 100mg Take 100 Unive rs primrose 6-29 mg by ity of oil 20:44: mouth. [place] (EVENING 32 Medical PRIMROSE Branch ORAL) calcium 2020-0 Yes Take by Univers carbonate/v 6-29 mouth. ity of itamin D3 20:44: [place] (CALCIUM 32 Medical 500 + D Branch ORAL) Cholecalcif 2020-0 Yes Take by Uni vers romi, 6-29 mouth. ity of Vitamin D3, 20:44: [place] (D3) Medical 50 mcg Branch (2,000 unit) capsule MILK 2020-0 Yes 350mg Take 350 Univers THISTLE 6-29 mg by ity of ORAL 20:44: mouth. [place] [address] Medical Branch evening 2020-0 Yes 100mg Take 100 Unive rs primrose 6-29 mg by ity of oil 20:44: mouth. [place] (EVENING 32 Medical PRIMROSE Branch ORAL) calcium 2020-0 Yes Take by Univers carbonate/v 6-29 mouth. ity of itamin D3 20:44: [place] (CALCIUM 32 Medical 500 + D Branch ORAL) Cholecalcif 2020-0 Yes Take by Uni vers romi, 6-29 mouth. ity of Vitamin D3, 20:44: [place] (D3) Medical 50 mcg Branch (2,000 unit) capsule MILK 2020-0 Yes 350mg Take 350 Univers THISTLE 6-29 mg by ity of ORAL 20:44: mouth. [address] evening 2020-0 Yes 100mg Take 100 Unive rs primrose 6-29 mg by ity of oil 20:44: mouth. [place] (EVENING 32 Medical PRIMROSE Branch ORAL) calcium 2020-0 Yes Take by Univers carbonate/v 6-29 mouth. ity of itamin D3 20:44: [place] (CALCIUM 32 Medical 500 + D Branch ORAL) Cholecalcif 2020-0 Yes Take by Uni vers romi, 6-29 mouth. ity of Vitamin D3, 20:44: [place] (D3) Medical 50 mcg Branch (2,000 unit) capsule MILK 2020-0 Yes 350mg Take 350 Univers THISTLE 6-29 mg by ity of ORAL 20:44: mouth. [address] Branch evening 2020-0 Yes 100mg Take 100 Unive rs primrose 6-29 mg by ity of oil 20:44: mouth. [place] (EVENING 32 Medical PRIMROSE Branch ORAL) calcium 2020-0 Yes Take by Univers carbonate/v 6-29 mouth. ity of itamin D3 20:44: [place] (CALCIUM 32 Medical 500 + D Branch ORAL) Cholecalcif 2020-0 Yes Take by Uni vers romi, 6-29 mouth. ity of Vitamin D3, 20:44: [place] (D3) 32 Medical 50 mcg Branch (2,000 unit) capsule MILK 2020-0 Yes 350mg Take 350 Univers THISTLE 6-29 mg by ity of ORAL 20:44: mouth. [place] [address] Medical Branch evening 2020-0 Yes 100mg Take 100 Unive rs primrose 6-29 mg by ity of oil 20:44: mouth. [place] (EVENING 32 Medical PRIMROSE Branch ORAL) calcium 2020-0 Yes Take by Univers carbonate/v 6-29 mouth. ity of itamin D3 20:44: [place] (CALCIUM 32 Medical 500 + D Branch ORAL) Cholecalcif 2020-0 Yes Take by Uni vers romi, 6-29 mouth. ity of Vitamin D3, 20:44: [place] () 32 Medical 50 mcg Branch (2,000 unit) capsule MILK 2020-0 Yes 350mg Take 350 Univers THISTLE 6-29 mg by ity of ORAL 20:44: mouth. [place] [address] Medical Branch evening 2020-0 Yes 100mg Take 100 Unive rs primrose 6-29 mg by ity of oil 20:44: mouth. [place] (EVENING 32 Medical PRIMROSE Branch ORAL) calcium 2020-0 Yes Take by Univers carbonate/v 6-29 mouth. ity of itamin D3 20:44: [place] (CALCIUM 32 Medical 500 + D Branch ORAL) Cholecalcif 2020-0 Yes Take by Uni vers romi, 6-29 mouth. ity of Vitamin D3, 20:44: [place] () Medical 50 mcg Branch (2,000 unit) capsule MILK 2020-0 Yes 350mg Take 350 Univers THISTLE 6-29 mg by ity of ORAL 20:44: mouth. [place] [address] Medical Branch evening 2020-0 Yes 100mg Take 100 Unive rs primrose 6-29 mg by ity of oil 20:44: mouth. [place] (EVENING 32 Medical PRIMROSE Branch ORAL) calcium 2020-0 Yes Take by Univers carbonate/v 6-29 mouth. ity of itamin D3 20:44: [place] (CALCIUM 32 Medical 500 + D Branch ORAL) Cholecalcif 2020-0 Yes Take by Uni vers romi, 6-29 mouth. ity of Vitamin D3, 20:44: [place] (D3) 32 Medical 50 mcg Branch (2,000 unit) capsule MILK 2020-0 Yes 350mg Take 350 Univers THISTLE 6-29 mg by ity of ORAL 20:44: mouth. [place] [address] Medical Branch evening 2020-0 Yes 100mg Take 100 Unive rs primrose 6-29 mg by ity of oil 20:44: mouth. [place] (EVENING 32 Medical PRIMROSE Branch ORAL) calcium 2020-0 Yes Take by Univers carbonate/v 04-20 mouth. ity of itamin D3 20:44: [place] (CALCIUM 32 Medical 500 + D Branch ORAL) Cholecalcif 2020-0 Yes Take by Uni vers romi, 04-20 mouth. ity of Vitamin D3, 20:44: [place] (D3) 32 Medical 50 mcg Branch (2,000 unit) capsule MILK 2020-0 Yes 350mg Take 350 Univers THISTLE 6-29 mg by ity of ORAL 20:44: mouth. [place] [address] Medical Branch evening 2020-0 Yes 100mg Take 100 Unive rs primrose 6-29 mg by ity of oil 20:44: mouth. [place] (EVENING 32 Medical PRIMROSE Branch ORAL) melatonin 3 2020-0 Yes 3mg Take 3 mg U nivers mg tablet 6-29 by mouth 3 ity of 20:38: (three) [place] 55 times Medical daily. Branch cinnamon 2020-0 Yes [facility] - mouth. ity of um-ALA 20:38: [place] 500-100-150 55 Medical mg-mcg-mg Branch Cap melatonin 3 2020-0 Yes 3mg Take 3 mg U nivers mg tablet 6-29 by mouth 3 ity of 20:38: (three) [place] 55 times Medical daily. Branch cinnamon 2020-0 Yes Take by [facility] bark-chromi 6-29 mouth. ity of um-ALA 20:38: [place] 500-100-150 55 Medical mg-mcg-mg Branch Cap melatonin 3 2020-0 Yes 3mg Take 3 mg U nivers mg tablet 6-29 by mouth 3 ity of 20:38: (three) [place] 55 times Medical daily. Branch cinnamon 2020-0 Yes Take by [facility] bark-chromi 6-29 mouth. ity of um-ALA 20:38: [place] 500-100-150 55 Medical mg-mcg-mg Branch Cap melatonin 3 2020-0 Yes 3mg Take 3 mg U nivers mg tablet 6-29 by mouth 3 ity of 20:38: (three) [place] 55 times Medical daily. Branch cinnamon 2020-0 Yes Take by [facility] [facility] [employer] 04-20 mouth. ity of um-ALA 20:38: [place] 500-100-150 55 Medical mg-mcg-mg Branch Cap melatonin 3 2020-0 Yes 3mg Take 3 mg U nivers mg tablet 6-29 by mouth 3 ity of 20:38: (three) [place] 55 times Medical daily. Branch cinnamon 2020-0 Yes Take by [facility] [employer] 04-20 mouth. ity of um-ALA 20:38: [place] 500-100-150 55 Medical mg-mcg-mg Branch Cap melatonin 3 2020-0 Yes 3mg Take 3 mg U nivers mg tablet 6-29 by mouth 3 ity of 20:38: (three) [place] 55 times Medical daily. Branch cinnamon 2020-0 Yes Take by [facility] [employer] 04-20 mouth. ity of um-ALA 20:38: [place] 500-100-150 55 Medical mg-mcg-mg Branch Cap melatonin 3 2020-0 Yes 3mg Take 3 mg U nivers mg tablet 6-29 by mouth 3 ity of 20:38: (three) [place] 55 times Medical daily. Branch cinnamon 2020-0 Yes Take by [facility] [employer] 04-20 mouth. ity of um-ALA 20:38: [place] 500-100-150 55 Medical mg-mcg-mg Branch Cap melatonin 3 2020-0 Yes 3mg Take 3 mg U nivers mg tablet 6-29 by mouth 3 ity of 20:38: (three) [place] 55 times Medical daily. Branch cinnamon 2020-0 Yes Take by [facility] [employer] 04-20 mouth. ity of um-ALA 20:38: [place] 500-100-150 55 Medical mg-mcg-mg Branch Cap melatonin 3 2020-0 Yes 3mg Take 3 mg U nivers mg tablet 6-29 by mouth 3 ity of 20:38: (three) [place] 55 times Medical daily. Branch cinnamon 2020-0 Yes Take by [facility] [employer] 6- mouth. ity of um-ALA 20:38: [place] 500-100-150 55 Medical mg-mcg-mg Branch Cap melatonin 3 2020-0 Yes 3mg Take 3 mg U nivers mg tablet 6-29 by mouth 3 ity of 20:38: (three) [place] 55 times Medical daily. Branch cinnamon 2020-0 Yes Take by [facility] [employer] 04-20 mouth. ity of um-ALA 20:38: [place] 500-100-150 55 Medical mg-mcg-mg Branch Cap melatonin 3 2020-0 Yes 3mg Take 3 mg U nivers mg tablet 6-29 by mouth 3 ity of 20:38: (three) [place] 55 times Medical daily. Branch cinnamon 2020-0 Yes Take by [facility] [employer] 04-20 mouth. ity of um-ALA 20:38: [place] 500-100-150 55 Medical mg-mcg-mg Branch Cap melatonin 3 2020-0 Yes 3mg Take 3 mg U nivers mg tablet 6-29 by mouth 3 ity of 20:38: (three) [place] 55 times Medical daily. Branch cinnamon 2020-0 Yes Take by [facility] [employer] 04-20 mouth. ity of um-ALA 20:38: [place] 500-100-150 55 Medical mg-mcg-mg Branch Cap melatonin 3 2020-0 Yes 3mg Take 3 mg U nivers mg tablet 6-29 by mouth 3 ity of 20:38: (three) [place] 55 times Medical daily. Branch cinnamon 2020-0 Yes Take by [facility] [employer] 04-20 mouth. ity of um-ALA 20:38: [place] 500-100-150 55 Medical mg-mcg-mg Branch Cap melatonin 3 2020-0 Yes 3mg Take 3 mg U nivers mg tablet 6-29 by mouth 3 ity of 20:38: (three) [place] 55 times Medical daily. Branch cinnamon 2020-0 Yes Take by [facility] [employer] - mouth. ity of um-ALA 20:38: [place] 500-100-150 55 Medical mg-mcg-mg Branch Cap melatonin 3 2020-0 Yes 3mg Take 3 mg U nivers mg tablet 6-29 by mouth 3 ity of 20:38: (three) [place] 55 times Medical daily. Branch cinnamon 2020-0 Yes Take by [facility] [employer] 6- mouth. ity of um-ALA 20:38: [place] 500-100-150 55 Medical mg-mcg-mg Branch Cap melatonin 3 2020-0 Yes 3mg Take 3 mg U nivers mg tablet 6-29 by mouth 3 ity of 20:38: (three) [place] 55 times Medical daily. Branch cinnamon 2020-0 Yes Take by [facility] bark-chromi 04-20 mouth. ity of um-ALA 20:38: [place] 500-100-150 55 Medical mg-mcg-mg Branch Cap melatonin 3 2020-0 Yes 3mg Take 3 mg U nivers mg tablet 6-29 by mouth 3 ity of 20:38: (three) [place] 55 times Medical daily. Branch cinnamon 2020-0 Yes Take by [facility] bark-chromi 04-20 mouth. ity of um-ALA 20:38: [place] 500-100-150 55 Medical mg-mcg-mg Branch Cap melatonin 3 2020-0 Yes 3mg Take 3 mg U nivers mg tablet 6-29 by mouth 3 ity of 20:38: (three) [place] 55 times Medical daily. Branch cinnamon 2020-0 Yes Take by [facility] [employer] 04-20 mouth. ity of um-ALA 20:38: [place] 500-100-150 55 Medical mg-mcg-mg Branch Cap melatonin 3 2020-0 Yes 3mg Take 3 mg U nivers mg tablet 6-29 by mouth 3 ity of 20:38: (three) [place] 55 times Medical daily. Branch cinnamon 2020-0 Yes Take by [facility] bark-chromi 04-20 mouth. ity of um-ALA 20:38: [place] 500-100-150 55 Medical mg-mcg-mg Branch Cap melatonin 3 2020-0 Yes 3mg Take 3 mg U nivers mg tablet 6-29 by mouth 3 ity of 20:38: (three) [place] 55 times Medical daily. Branch cinnamon 2020-0 Yes Take by [facility] bark-chromi - mouth. ity of um-ALA 20:38: [place] 500-100-150 55 Medical mg-mcg-mg Branch Cap melatonin 3 2020-0 Yes 3mg Take 3 mg U nivers mg tablet 6-29 by mouth 3 ity of 20:38: (three) [place] 55 times Medical daily. Branch cinnamon 2020-0 Yes Take by [facility] bark-chromi 6- mouth. ity of um-ALA 20:38: [place] 500-100-150 55 Medical mg-mcg-mg Branch Cap melatonin 3 2020-0 Yes 3mg Take 3 mg U nivers mg tablet 6-29 by mouth 3 ity of 20:38: (three) [place] 55 times Medical daily. Branch cinnamon 2020-0 Yes Take by [facility] s bark-chromi 6-29 mouth. ity of um-ALA 20:38: [place] 500-100-150 55 Medical mg-mcg-mg Branch Cap melatonin 3 2020-0 Yes 3mg Take 3 mg U nivers mg tablet 6-29 by mouth 3 ity of 20:38: (three) [place] 55 times Medical daily. Branch cinnamon 2020-0 Yes Take by [facility] bark-chromi 6-29 mouth. ity of um-ALA 20:38: [place] 500-100-150 55 Medical mg-mcg-mg Branch Cap verapamil 2020-0 Yes 120mg Take 120 Uni vers (VERELAN 6-29 mg by ity of PM) 120 mg 20:35: mouth at [place] 24 hr 30 bedtime. Medical capsule Branch metFORMIN 2020-0 Yes 500mg Take 500 Uni vers 500 mg 6-29 mg by ity of tablet 20:35: mouth 2 [place] 30 (two) Medical times [place] daily with meals. rOPINIRole 2020-0 Yes 2mg Take 2 mg [place] 2 mg tablet 6-29 by mouth ity of 20:35: at [place] 30 bedtime. Medical Branch venlafaxine 2020-0 Yes 150mg Take 150 U nivers XR 150 mg 6-29 mg by ity of 24 hr 20:35: mouth [place] capsule 30 daily with Medica l breakfast. Branch pantoprazol 2020-0 Yes 40mg Take 40 mg Univers e 40 mg EC 6-29 by mouth ity o f tablet 20:35: daily. [place] 30 Medical Branch amitriptyli 2020-0 Yes 100mg Take 100 U nivers ne 75 mg 6-29 mg by ity of tablet 20:35: mouth at [place] 30 bedtime. Medical Branch verapamil 2020-0 Yes 120mg Take 120 Uni vers (VERELAN 6-29 mg by ity of PM) 120 mg 20:35: mouth at [place] 24 hr 30 bedtime. Medical capsule Branch metFORMIN 2020-0 Yes 500mg Take 500 Uni vers 500 mg 6-29 mg by ity of tablet 20:35: mouth 2 [place] 30 (two) Medical times Branch daily with [...] by ity of tablet 20:35: mouth 2 [place] 30 (two) Medical times Branch daily with [...] mouth ity o f tablet 20:35: daily. [place] 30 Medical Branch amitriptyli 2020-0 Yes 100mg [...] by ity of tablet 20:35: mouth 2 [place] 30 (two) Medical times Branch daily with meals. rOPINIRole 2020-0 Yes 2mg Take 2 mg Un [place] 2 mg tablet 6-29 by mouth ity of 20:35: at [place] 30 bedtime. Medical Branch venlafaxine 2020-0 Yes 150mg Take 150 U nivers XR 150 mg 6-29 mg by ity of 24 hr 20:35: mouth [place] capsule 30 daily with Medica l breakfast. Branch pantoprazol 2020-0 Yes 40mg Take 40 mg Univers e 40 mg EC 6-29 by mouth ity o f tablet 20:35: daily. [place] Medical Branch amitriptyli 2020-0 Yes 100mg Take [...] by ity of tablet 20:35: mouth 2 [place] 30 (two) Medical times Branch daily with [...] mouth ity o f tablet 20:35: daily. [place] Medical Branch amitriptyli 2020-0 Yes 100mg Take [...] by ity of tablet 20:35: mouth 2 [place] 30 (two) Medical times Branch daily with [...] mouth ity o f tablet 20:35: daily. [place] Medical Branch amitriptyli 2020-0 Yes 100mg Take [...] mouth ity o f tablet 20:35: daily. [place] [address] Medical Branch amitriptyli 2020-0 Yes 100mg Take 100 U nivers ne 75 mg 6-29 mg by ity of tablet 20:35: mouth at [place] 30 bedtime. Medical Branch verapamil 2020-0 Yes 120mg Take 120 Uni vers (VERELAN 6-29 mg by ity of PM) 120 mg 20:35: mouth at [place] 24 hr 30 bedtime. Medical capsule Branch metFORMIN 2020-0 Yes 500mg Take 500 Uni vers 500 mg 6-29 mg by ity of tablet 20:35: mouth 2 [place] 30 (two) Medical times Branch daily with meals. rOPINIRole 2020-0 Yes 2mg Take 2 mg [place] 2 mg tablet 6-29 by mouth ity of 20:35: at [place] 30 bedtime. Medical Branch venlafaxine 2020-0 Yes 150mg Take 150 U nivers XR 150 mg 6-29 mg by ity of 24 hr 20:35: mouth [place] capsule 30 daily with Medica l breakfast. Branch pantoprazol 2020-0 Yes 40mg Take 40 mg Univers e 40 mg EC 6-29 by mouth ity o f tablet 20:35: daily. [place] [address] Medical Branch amitriptyli 2020-0 Yes 100mg Take 100 U nivers ne 75 mg 6-29 mg by ity of tablet 20:35: mouth at [place] 30 bedtime. Medical Branch verapamil 2020-0 Yes 120mg Take 120 Uni vers (VERELAN 6-29 mg by ity of PM) 120 mg 20:35: mouth at [place] 24 hr 30 bedtime. Medical capsule Branch metFORMIN 2020-0 Yes 500mg Take 500 Uni vers 500 mg 6-29 mg by ity of tablet 20:35: mouth 2 [place] 30 (two) Medical times Branch daily with meals. rOPINIRole 2020-0 Yes 2mg Take 2 mg [place] 2 mg tablet 6-29 by mouth ity of 20:35: at [place] 30 bedtime. Medical Branch venlafaxine 2020-0 Yes 150mg Take 150 U nivers XR 150 mg 6-29 mg by ity of 24 hr 20:35: mouth [place] capsule 30 daily with Medica l breakfast. Branch pantoprazol 2020-0 Yes 40mg Take 40 mg Univers e 40 mg EC 6-29 by mouth ity o f tablet 20:35: daily. [place] Medical Branch amitriptyli 2020-0 Yes 100mg Take 100 U nivers ne 75 mg 6-29 mg by ity of tablet 20:35: mouth at [place] 30 bedtime. Medical Branch verapamil 2020-0 Yes 120mg Take 120 Uni vers (VERELAN 6-29 mg by ity of PM) 120 mg 20:35: mouth at [place] 24 hr 30 bedtime. Medical capsule Branch metFORMIN 2020-0 Yes 500mg Take 500 Uni vers 500 mg 6-29 mg by ity of tablet 20:35: mouth 2 [place] 30 (two) Medical times Branch daily with meals. rOPINIRole 2020-0 Yes 2mg Take 2 mg [place] 2 mg tablet 6-29 by mouth ity of 20:35: at [place] 30 bedtime. Medical Branch venlafaxine 2020-0 Yes 150mg Take 150 U nivers XR 150 mg 6-29 mg by ity of 24 hr 20:35: mouth [place] capsule 30 daily with Medica l breakfast. Branch pantoprazol 2020-0 Yes 40mg Take 40 mg Univers e 40 mg EC 6-29 by mouth ity o f tablet 20:35: daily. [place] Medical Branch amitriptyli 2020-0 Yes 100mg Take 100 U nivers ne 75 mg 6-29 mg by ity of tablet 20:35: mouth at [place] 30 bedtime. Medical Branch verapamil 2020-0 Yes 120mg Take 120 Uni vers (VERELAN 6-29 mg by ity of PM) 120 mg 20:35: mouth at [place] 24 hr 30 bedtime. Medical capsule Branch metFORMIN 2020-0 Yes 500mg Take 500 Uni vers 500 mg 6-29 mg by ity of tablet 20:35: mouth 2 [place] 30 (two) Medical times Branch daily with meals. rOPINIRole 2020-0 Yes 2mg Take 2 mg [place] 2 mg tablet 6-29 by mouth ity of 20:35: at [place] 30 bedtime. Medical Branch venlafaxine 2020-0 Yes 150mg Take 150 U nivers XR 150 mg 6-29 mg by ity of 24 hr 20:35: mouth [place] capsule 30 daily with Medica l breakfast. Branch pantoprazol 2020-0 Yes 40mg Take 40 mg Univers e 40 mg EC 6-29 by mouth ity o f tablet 20:35: daily. [place] [address] Medical Branch amitriptyli 2020-0 Yes 100mg Take [...] by ity of tablet 20:35: mouth 2 [place] 30 (two) Medical times Branch daily with meals. rOPINIRole 2020-0 Yes 2mg Take 2 mg [place] 2 mg tablet 6-29 by mouth ity of 20:35: at [place] 30 bedtime. Medical Branch venlafaxine 2020-0 Yes 150mg Take 150 U nivers XR 150 mg 6-29 mg by ity of 24 hr 20:35: mouth [place] capsule 30 daily with Medica l breakfast. Branch pantoprazol 2020-0 Yes 40mg Take 40 mg Univers e 40 mg EC 6-29 by mouth ity o f tablet 20:35: daily. [place] [address] Medical Branch amitriptyli 2020-0 Yes 100mg Take [...] by ity of tablet 20:35: mouth 2 [place] 30 (two) Medical times Branch daily with [...] mouth ity o f tablet 20:35: daily. [place] 30 Medical Branch amitriptyli 2020-0 Yes 100mg [...] by ity of tablet 20:35: mouth 2 [place] 30 (two) Medical times Branch daily with meals. rOPINIRole 2020-0 Yes 2mg Take 2 mg [place] 2 mg tablet 6-29 by mouth ity of 20:35: at [place] 30 bedtime. Medical Branch venlafaxine 2020-0 Yes 150mg Take 150 U nivers XR 150 mg 6-29 mg by ity of 24 hr 20:35: mouth [place] capsule 30 daily with Medica l breakfast. Branch pantoprazol 2020-0 Yes 40mg Take 40 mg Univers e 40 mg EC 6-29 by mouth ity o f tablet 20:35: daily. [place] [address] Medical Branch amitriptyli 2020-0 Yes 100mg Take 100 U nivers ne 75 mg 6-29 mg by ity of tablet 20:35: mouth at [place] 30 bedtime. Medical Branch verapamil 2020-0 Yes 120mg Take 120 Uni vers (VERELAN 6-29 mg by ity of PM) 120 mg 20:35: mouth at [place] 24 hr 30 bedtime. Medical capsule Branch metFORMIN 2020-0 Yes 500mg Take 500 Uni vers 500 mg 6-29 mg by ity of tablet 20:35: mouth 2 [place] 30 (two) Medical times Branch daily with meals. rOPINIRole 2020-0 Yes 2mg Take 2 mg [place] 2 mg tablet 6-29 by mouth ity of 20:35: at [place] 30 bedtime. Medical Branch venlafaxine 2020-0 Yes 150mg Take 150 U nivers XR 150 mg 6-29 mg by ity of 24 hr 20:35: mouth [place] capsule 30 daily with Medica l breakfast. Branch pantoprazol 2020-0 Yes 40mg Take 40 mg Univers e 40 mg EC 6-29 by mouth ity o f tablet 20:35: daily. [place] Medical Branch amitriptyli 2020-0 Yes 100mg Take 100 U nivers ne 75 mg 6-29 mg by ity of tablet 20:35: mouth at [place] 30 bedtime. Medical Branch verapamil 2020-0 Yes 120mg Take 120 Uni vers (VERELAN 6-29 mg by ity of PM) 120 mg 20:35: mouth at [place] 24 hr 30 bedtime. Medical capsule Branch metFORMIN 2020-0 Yes 500mg Take 500 Uni vers 500 mg 6-29 mg by ity of tablet 20:35: mouth 2 [place] 30 (two) Medical times Branch daily with meals. rOPINIRole 2020-0 Yes 2mg Take 2 mg [place] 2 mg tablet 6-29 by mouth ity of 20:35: at [place] 30 bedtime. Medical Branch venlafaxine 2020-0 Yes 150mg Take 150 U nivers XR 150 mg 6-29 mg by ity of 24 hr 20:35: mouth [place] capsule 30 daily with Medica l breakfast. Branch pantoprazol 2020-0 Yes 40mg Take 40 mg Univers e 40 mg EC 6-29 by mouth ity o f tablet 20:35: daily. [place] Medical Branch amitriptyli 2020-0 Yes 100mg Take 100 U nivers ne 75 mg 6-29 mg by ity of tablet 20:35: mouth at [place] 30 bedtime. Medical Branch verapamil 2020-0 Yes 120mg Take 120 Uni vers (VERELAN 6-29 mg by ity of PM) 120 mg 20:35: mouth at [place] 24 hr 30 bedtime. Medical capsule Branch metFORMIN 2020-0 Yes 500mg Take 500 Uni vers 500 mg 6-29 mg by ity of tablet 20:35: mouth 2 [place] 30 (two) Medical times Branch daily with meals. rOPINIRole 2020-0 Yes 2mg Take 2 mg [place] 2 mg tablet 6-29 by mouth ity of 20:35: at [place] 30 bedtime. Medical Branch venlafaxine 2020-0 Yes 150mg Take 150 U nivers XR 150 mg 6-29 mg by ity of 24 hr 20:35: mouth [place] capsule 30 daily with Medica l breakfast. Branch pantoprazol 2020-0 Yes 40mg Take 40 mg Univers e 40 mg EC 6-29 by mouth ity o f tablet 20:35: daily. [place] [address] Medical Branch amitriptyli 2020-0 Yes 100mg Take [...] by ity of tablet 20:35: mouth 2 [place] 30 (two) Medical times Branch daily with meals. rOPINIRole 2020-0 Yes 2mg Take 2 mg [place] 2 mg tablet 6-29 by mouth ity of 20:35: at [place] 30 bedtime. Medical Branch venlafaxine 2020-0 Yes 150mg Take 150 U nivers XR 150 mg 6-29 mg by ity of 24 hr 20:35: mouth [place] capsule 30 daily with Medica l breakfast. Branch pantoprazol 2020-0 Yes 40mg Take 40 mg Univers e 40 mg EC 6-29 by mouth ity o f tablet 20:35: daily. [place] [address] Medical Branch amitriptyli 2020-0 Yes 100mg Take 100 U nivers ne 75 mg 6-29 mg by ity of tablet 20:35: mouth at [place] 30 bedtime. Medical Branch verapamil 2020-0 Yes 120mg Take 120 Uni vers (VERELAN 6-29 mg by ity of PM) 120 mg 20:35: mouth at [place] 24 hr 30 bedtime. Medical capsule Branch metFORMIN 2020-0 Yes 500mg Take 500 Uni vers 500 mg 6-29 mg by ity of tablet 20:35: mouth 2 [place] 30 (two) Medical times Branch daily with meals. rOPINIRole 2020-0 Yes 2mg Take 2 mg [place] 2 mg tablet 6-29 by mouth ity of 20:35: at [place] 30 bedtime. Medical Branch venlafaxine 2020-0 Yes 150mg Take 150 U nivers XR 150 mg 6-29 mg by ity of 24 hr 20:35: mouth [place] capsule 30 daily with Medica l breakfast. Branch pantoprazol 2020-0 Yes 40mg Take 40 mg Univers e 40 mg EC 6-29 by mouth ity o f tablet 20:35: daily. [place] [address] Medical Branch amitriptyli 2020-0 Yes 100mg Take [...] mouth ity o f tablet 20:35: daily. [place] Medical Branch amitriptyli 2020-0 Yes 100mg Take [...] mouth ity o f tablet 20:35: daily. [place] 30 Medical Branch amitriptyli 2020-0 Yes 100mg Take 100 U nivers ne 75 mg 6-29 mg by ity of tablet 20:35: mouth at [place] 30 bedtime. Medical Branch verapamil 2020-0 Yes 120mg Take 120 Uni vers (VERELAN 6-29 mg by ity of PM) 120 mg 20:35: mouth at [place] 24 hr 30 bedtime. Medical capsule Branch metFORMIN 2020-0 Yes 500mg Take 500 Uni vers 500 mg 6-29 mg by ity of tablet 20:35: mouth 2 [place] 30 (two) Medical times Branch daily with meals. rOPINIRole 2020-0 Yes 2mg Take 2 mg [place] 2 mg tablet 04-20 by mouth ity of 20:35: at [place] 30 bedtime. Medical Branch venlafaxine 2020-0 Yes 150mg Take 150 U nivers XR 150 mg 6-29 mg by ity of 24 hr 20:35: mouth [place] capsule 30 daily with Medica l breakfast. Branch pantoprazol 2020-0 Yes 40mg Take 40 mg Univers e 40 mg EC 6- by mouth ity o f tablet 20:35: daily. [place] [address] Medical Branch amitriptyli 2020-0 Yes 100mg Take 100 U nivers ne 75 mg 6-29 mg by ity of tablet 20:35: mouth at [place] 30 bedtime. Medical Branch calcium 2020-0 Yes Take by [facility] carbonate/v -29 mouth. ity of itamin D3 15:44: [place] (CALCIUM 32 Medical 500 + D Branch ORAL) Cholecalcif 2020-0 Yes Take by Uni vers romi, 04-20 mouth. ity of Vitamin D3, 15:44: [place] (D3) Medical 50 mcg Branch (2,000 unit) capsule MILK 2020-0 Yes 350mg Take 350 Univers THISTLE 6-29 mg by ity of ORAL 15:44: mouth. [place] [address] Medical Branch evening 2020-0 Yes 100mg Take 100 Unive rs primrose 6-29 mg by ity of oil 15:44: mouth. [place] (EVENING 32 Medical PRIMROSE Branch ORAL) calcium 2020-0 Yes Take by [facility] carbonate/v 6-29 mouth. ity of itamin D3 15:44: [place] (CALCIUM 32 Medical 500 + D Branch ORAL) Cholecalcif 2020-0 Yes Take by Uni vers romi, 6-29 mouth. ity of Vitamin D3, 15:44: [place] (D3) Medical 50 mcg Branch (2,000 unit) capsule MILK 2020-0 Yes 350mg Take 350 Univers THISTLE 6-29 mg by ity of ORAL 15:44: mouth. [address] evening 2020-0 Yes 100mg Take 100 Unive rs primrose 6-29 mg by ity of oil 15:44: mouth. [place] (EVENING 32 Medical PRIMROSE Branch ORAL) calcium 2020-0 Yes Take by Univers carbonate/v 6-29 mouth. ity of itamin D3 15:44: [place] (CALCIUM 32 Medical 500 + D Branch ORAL) Cholecalcif 2020-0 Yes Take by Uni vers romi, 6-29 mouth. ity of Vitamin D3, 15:44: [place] (D3) Medical 50 mcg Branch (2,000 unit) capsule MILK 2020-0 Yes 350mg Take 350 Univers THISTLE 6-29 mg by ity of ORAL 15:44: mouth. [address] evening 2020-0 Yes 100mg Take 100 Unive rs [place]rose 6-29 mg by ity of oil 15:44: mouth. [place] (EVENING Medical PRIMROSE Branch ORAL) calcium 2020-0 Yes Take by Univers carbonate/v 6-29 mouth. ity of itamin D3 15:44: [place] (CALCIUM Medical 500 + D Branch ORAL) Cholecalcif 2020-0 Yes Take by Uni vers romi, 6-29 mouth. ity of Vitamin D3, 15:44: [place] () [address] [place] [id number] 50 mcg Branch (2,000 unit) capsule MILK 2020-0 Yes 350mg Take 350 Univers THISTLE 6-29 mg by ity of ORAL 15:44: mouth. [address] evening 2020-0 Yes 100mg Take 100 Unive rs primrose 6-29 mg by ity of oil 15:44: mouth. [place] (EVENING Medical PRIMROSE Branch ORAL) calcium 2020-0 Yes Take by [facility] carbonate/v 6-29 mouth. ity of itamin D3 15:44: [place] (CALCIUM 32 Medical 500 + D Branch ORAL) Cholecalcif 2020-0 Yes Take by Uni vers romi, 6-29 mouth. ity of Vitamin D3, 15:44: [place] (D3) Medical 50 mcg Branch (2,000 unit) capsule MILK 2020-0 Yes 350mg Take 350 Univers THISTLE 6-29 mg by ity of ORAL 15:44: mouth. [address] evening 2020-0 Yes 100mg Take 100 Unive rs primrose 6-29 mg by ity of oil 15:44: mouth. [place] (EVENING 32 Medical PRIMROSE Branch ORAL) calcium 2020-0 Yes Take by [facility] carbonate/v 6-29 mouth. ity of itamin D3 15:44: [place] (CALCIUM 32 Medical 500 + D Branch ORAL) Cholecalcif 2020-0 Yes Take by Uni vers romi, 6-29 mouth. ity of Vitamin D3, 15:44: [place] (D3) Medical 50 mcg Branch (2,000 unit) capsule MILK 2020-0 Yes 350mg Take 350 Univers THISTLE 6-29 mg by ity of ORAL 15:44: mouth. [place] [address] Medical Branch evening 2020-0 Yes 100mg Take 100 Unive rs primrose 6-29 mg by ity of oil 15:44: mouth. [place] (EVENING 32 Medical PRIMROSE Branch ORAL) calcium 2020-0 Yes Take by [facility] carbonate/v 6-29 mouth. ity of itamin D3 15:44: [place] (CALCIUM 32 Medical 500 + D Branch ORAL) Cholecalcif 2020-0 Yes Take by Uni vers romi, 6-29 mouth. ity of Vitamin D3, 15:44: [place] (D3) Medical 50 mcg Branch (2,000 unit) capsule MILK 2020-0 Yes 350mg Take 350 Univers THISTLE 6-29 mg by ity of ORAL 15:44: mouth. [place] [address] Medical [place] evening 2020-0 Yes 100mg Take 100 Unive rs primrose 6-29 mg by ity of oil 15:44: mouth. [place] (EVENING 32 Medical PRIMROSE Branch ORAL) calcium 2020-0 Yes Take by Univers carbonate/v 6-29 mouth. ity of itamin D3 15:44: [place] (CALCIUM 32 Medical 500 + D Branch ORAL) Cholecalcif 2020-0 Yes Take by Uni vers romi, 6-29 mouth. ity of Vitamin D3, 15:44: [place] (D3) Medical 50 mcg Branch (2,000 unit) capsule MILK 2020-0 Yes 350mg Take 350 Univers THISTLE 6-29 mg by ity of ORAL 15:44: mouth. [place] [address] Medical [place] evening 2020-0 Yes 100mg Take 100 Unive rs primrose 6-29 mg by ity of oil 15:44: mouth. [place] (EVENING 32 Medical PRIMROSE Branch ORAL) calcium 2020-0 Yes Take by [facility] carbonate/v - mouth. ity of itamin D3 15:44: [place] (CALCIUM 32 Medical 500 + D Branch ORAL) Cholecalcif 2020-0 Yes Take by Uni vers romi, 04-20 mouth. ity of Vitamin D3, 15:44: [place] (D3-1999) 32 Medical 50 mcg Branch (2,000 unit) capsule MILK 2020-0 Yes 350mg Take 350 Univers THISTLE 6-29 mg by ity of ORAL 15:44: mouth. [place] 32 Medical Branch evening 2020-0 Yes 100mg Take 100 Unive rs [place]rose 6-29 mg by ity of oil 15:44: mouth. [place] (EVENING 32 Medical PRIMROSE Branch ORAL) melatonin 3 2020-0 Yes 3mg Take 3 mg U nivers mg tablet 6-29 by mouth 3 ity of 15:38: (three) [place] 55 times Medical daily. Branch cinnamon 2020-0 Yes Take by [facility] s bark-chromi 6- mouth. ity of um-ALA 15:38: [place] 500-100-150 55 Medical mg-mcg-mg Branch Cap melatonin 3 2020-0 Yes 3mg Take 3 mg U nivers mg tablet 6-29 by mouth 3 ity of 15:38: (three) [place] 55 times Medical daily. Branch cinnamon 2020-0 Yes Take by [facility] bark-chromi 6-29 mouth. ity of um-ALA 15:38: [place] 500-100-150 55 Medical mg-mcg-mg Branch Cap melatonin 3 2020-0 Yes 3mg Take 3 mg U nivers mg tablet 6-29 by mouth 3 ity of 15:38: (three) [place] 55 times Medical daily. Branch cinnamon 2020-0 Yes Take by [facility] bark-chromi 6-29 mouth. ity of um-ALA 15:38: [place] 500-100-150 55 Medical mg-mcg-mg Branch Cap melatonin 3 2020-0 Yes 3mg Take 3 mg U nivers mg tablet 6-29 by mouth 3 ity of 15:38: (three) [place] 55 times Medical daily. Branch cinnamon 2020-0 Yes Take by [facility] s bark-chromi 6-29 mouth. ity of um-ALA 15:38: [place] 500-100-150 55 Medical mg-mcg-mg Branch Cap melatonin 3 2020-0 Yes 3mg Take 3 mg U nivers mg tablet 6-29 by mouth 3 ity of 15:38: (three) [place] 55 times Medical daily. Branch cinnamon 2020-0 Yes Take by [facility] bark-chromi 6-29 mouth. ity of um-ALA 15:38: [place] 500-100-150 55 Medical mg-mcg-mg Branch Cap melatonin 3 2020-0 Yes 3mg Take 3 mg U nivers mg tablet 6-29 by mouth 3 ity of 15:38: (three) [place] 55 times Medical daily. Branch cinnamon 2020-0 Yes Take by [facility] bark-chromi 6-29 mouth. ity of um-ALA 15:38: [place] 500-100-150 55 Medical mg-mcg-mg Branch Cap melatonin 3 2020-0 Yes 3mg Take 3 mg U nivers mg tablet 6-29 by mouth 3 ity of 15:38: (three) [place] 55 times Medical daily. Branch cinnamon 2020-0 Yes Take by [facility] bark-chromi 6-29 mouth. ity of um-ALA 15:38: [place] 500-100-150 55 Medical mg-mcg-mg Branch Cap melatonin 3 2020-0 Yes 3mg Take 3 mg U nivers mg tablet 6-29 by mouth 3 ity of 15:38: (three) [place] 55 times Medical daily. Branch cinnamon 2020-0 Yes Take by [facility] [employer]-chromi 6-29 mouth. ity of um-ALA 15:38: [place] 500-100-150 55 Medical mg-mcg-mg Branch Cap melatonin 3 2020-0 Yes 3mg Take 3 mg U nivers mg tablet 6-29 by mouth 3 ity of 15:38: (three) [place] 55 times Medical daily. Branch cinnamon 2020-0 Yes Take by [facility] bark-chromi 6-29 mouth. ity of um-ALA 15:38: [...] mouth ity o f tablet 15:35: daily. [place] 30 Medical Branch amitriptyli 2020-0 Yes 100mg [...] by ity of tablet 15:35: mouth 2 [place] 30 (two) Medical times Branch daily with [...] mouth ity o f tablet 15:35: daily. [place] [facility] Branch amitriptyli 2020-0 Yes 100mg Take [...] by ity of tablet 15:35: mouth 2 [place] 30 (two) Medical times Branch daily with [...] mouth ity o f tablet 15:35: daily. [place] 30 Medical Branch amitriptyli 2020-0 Yes 100mg [...] by ity of tablet 15:35: mouth 2 [place] 30 (two) Medical times Branch daily with [...] mouth ity o f tablet 15:35: daily. [place] [facility] Branch amitriptyli 2020-0 Yes 100mg Take [...] mouth ity o f tablet 15:35: daily. [place] 30 Medical Branch amitriptyli 2020-0 Yes 100mg [...] by ity of tablet 15:35: mouth 2 [place] 30 (two) Medical times Branch daily with meals. rOPINIRole 2020-0 Yes 2mg Take 2 mg [place] 2 mg tablet 6-29 by mouth ity of 15:35: at [place] 30 bedtime. Medical Branch venlafaxine 2020-0 Yes 150mg Take 150 U nivers XR 150 mg 6-29 mg by ity of 24 hr 15:35: mouth [place] capsule 30 daily with Medica l breakfast. Branch pantoprazol 2020-0 Yes 40mg Take 40 mg [facility] e 40 mg EC 6-29 by mouth ity o f tablet 15:35: daily. [place] [facility] Branch amitriptyli 2020-0 Yes 100mg Take 100 U nivers ne 75 mg 6-29 mg by ity of tablet 15:35: mouth at [place] 30 bedtime. Medical Branch verapamil 2020-0 Yes 120mg Take 120 Uni vers (VERELAN 6-29 mg by ity of PM) 120 mg 15:35: mouth at [place] as 24 hr 30 bedtime. Medical capsule Branch metFORMIN 2020-0 Yes 500mg Take 500 Uni vers 500 mg 6-29 mg by ity of tablet 15:35: mouth 2 [place] 30 (two) Medical times Branch daily with meals. rOPINIRole 2020-0 Yes 2mg Take 2 mg [place] 2 mg tablet 6-29 by mouth ity of 15:35: at [place] 30 bedtime. Medical Branch venlafaxine 2020-0 Yes 150mg Take 150 U nivers XR 150 mg 6-29 mg by ity of 24 hr 15:35: mouth [place] capsule 30 daily with Medica l breakfast. Branch pantoprazol 2020-0 Yes 40mg Take 40 mg Univers e 40 mg EC 6-29 by mouth ity o f tablet 15:35: daily. [place] 30 Medical Branch amitriptyli 2020-0 Yes 100mg Take 100 U nivers ne 75 mg 6-29 mg by ity of tablet 15:35: mouth at [place] 30 bedtime. Medical Branch verapamil 2020-0 Yes 120mg Take 120 Uni vers (VERELAN 6-29 mg by ity of PM) 120 mg 15:35: mouth at [place] as 24 hr 30 bedtime. Medical capsule Branch metFORMIN 2020-0 Yes 500mg Take 500 Uni vers 500 mg 6-29 mg by ity of tablet 15:35: mouth 2 [place] 30 (two) Medical times Branch daily with meals. rOPINIRole 2020-0 Yes 2mg Take 2 mg [place] 2 mg tablet 6-29 by mouth ity of 15:35: at [place] 30 bedtime. Medical Branch venlafaxine 2020-0 Yes 150mg Take 150 U nivers XR 150 mg 6-29 mg by ity of 24 hr 15:35: mouth [place] capsule 30 daily with Medica l breakfast. Branch pantoprazol 2020-0 Yes 40mg Take 40 mg Univers e 40 mg EC 6-29 by mouth ity o f tablet 15:35: daily. [place] [address] Medical Branch amitriptyli 2020-0 Yes 100mg Take 100 U nivers ne 75 mg 6-29 mg by ity of tablet 15:35: mouth at [place] 30 bedtime. Medical Branch verapamil 2020-0 Yes 120mg Take 120 Uni vers (VERELAN 6-29 mg by ity of PM) 120 mg 15:35: mouth at [place] 24 hr 30 bedtime. Medical capsule Branch metFORMIN 2020-0 Yes 500mg Take 500 Uni vers 500 mg 6-29 mg by ity of tablet 15:35: mouth 2 [place] 30 (two) Medical times Branch daily with meals. rOPINIRole 2020-0 Yes 2mg Take 2 mg [place] 2 mg tablet 6-29 by mouth ity of 15:35: at [place] 30 bedtime. Medical Branch venlafaxine 2020-0 Yes 150mg Take 150 U nivers XR 150 mg 6-29 mg by ity of 24 hr 15:35: mouth [place] capsule 30 daily with Medica l breakfast. Branch pantoprazol Yes 40mg Take 40 mg Univers e 40 mg EC 6-29 by mouth ity o f tablet 15:35: daily. [place] 30 Medical Branch amitriptyli 0 Yes 100mg Take 100 U nivers ne 75 mg 6-29 mg by ity of tablet 15:35: mouth at [place] 30 bedtime. Medical Branch DICLOFENAC Yes [id number] APPLY TO Univers SODIUM 1 % 5-26 05 AFFECTED ity o f gel 00:00: AREA TWICE [place] 00 A DAY Medical NEEDED FOR Branch PAIN APPLY 2 GRAMS DO NOT EXCEED 4 GRAMS IN A DAY DICLOFENAC Yes [id number] APPLY TO Univers SODIUM 1 % 5-26 05 AFFECTED ity o f gel 00:00: AREA TWICE [place] 00 A DAY Medical NEEDED FOR Branch PAIN APPLY 2 GRAMS DO NOT EXCEED 4 GRAMS IN A DAY DICLOFENAC Yes [id number] APPLY TO [facility] SODIUM 1 % 5-26 05 AFFECTED ity o f gel 00:00: AREA TWICE [place] 00 A DAY Medical NEEDED FOR Branch PAIN APPLY 2 GRAMS DO NOT EXCEED 4 GRAMS IN A DAY DICLOFENAC Yes [id number] APPLY TO [facility] SODIUM 1 % 5-26 05 AFFECTED ity o f gel 00:00: AREA TWICE [place] 00 A DAY Medical NEEDED FOR Branch PAIN APPLY 2 GRAMS DO NOT EXCEED 4 GRAMS IN A DAY DICLOFENAC 0 Yes [id number] APPLY TO [facility] SODIUM 1 % 5-26 05 AFFECTED ity o f gel 00:00: AREA TWICE [place] 00 A DAY Medical NEEDED FOR Branch PAIN APPLY 2 GRAMS DO NOT EXCEED 4 GRAMS IN A DAY DICLOFENAC 0 Yes [id number] APPLY TO Univers SODIUM 1 % 5-26 05 AFFECTED ity o f gel 00:00: AREA TWICE [place] 00 A DAY Medical NEEDED FOR Branch PAIN APPLY 2 GRAMS DO NOT EXCEED 4 GRAMS IN A DAY DICLOFENAC 0 Yes [id number] APPLY TO [facility] SODIUM 1 % 5-26 05 AFFECTED ity o f gel 00:00: AREA TWICE [place] 00 A DAY Medical NEEDED FOR Branch PAIN APPLY 2 GRAMS DO NOT EXCEED 4 GRAMS IN A DAY DICLOFENAC 0 Yes [id number] APPLY TO [facility] SODIUM 1 % 5-26 05 AFFECTED ity o f gel 00:00: AREA TWICE [place] 00 A DAY Medical NEEDED FOR Branch PAIN APPLY 2 GRAMS DO NOT EXCEED 4 GRAMS IN A DAY DICLOFENAC 2020-0 Yes [id number] APPLY TO [facility] SODIUM 1 % 5-26 05 AFFECTED ity o f gel 00:00: AREA TWICE [place] 00 A DAY Medical NEEDED FOR Branch PAIN APPLY 2 GRAMS DO NOT EXCEED 4 GRAMS IN A DAY DICLOFENAC 2020-0 Yes [id number] APPLY TO [facility] SODIUM 1 % 5-26 05 AFFECTED ity o f gel 00:00: AREA TWICE [place] 00 A DAY Medical NEEDED FOR Branch PAIN APPLY 2 GRAMS DO NOT EXCEED 4 GRAMS IN A DAY DICLOFENAC 2020-0 Yes [id number] APPLY TO [facility] SODIUM 1 % 5-26 05 AFFECTED ity o f gel 00:00: AREA TWICE [place] 00 A DAY Medical NEEDED FOR Branch PAIN APPLY 2 GRAMS DO NOT EXCEED 4 GRAMS IN A DAY DICLOFENAC 2020-0 Yes [id number] APPLY TO [facility] SODIUM 1 % 5-26 05 AFFECTED ity o f gel 00:00: AREA TWICE [place] 00 A DAY Medical NEEDED FOR Branch PAIN APPLY 2 GRAMS DO NOT EXCEED 4 GRAMS IN A DAY DICLOFENAC 2020-0 Yes [id number] APPLY TO [facility] SODIUM 1 % 5-26 05 AFFECTED ity o f gel 00:00: AREA TWICE [place] 00 A DAY Medical NEEDED FOR Branch PAIN APPLY 2 GRAMS DO NOT EXCEED 4 GRAMS IN A DAY DICLOFENAC 2020-0 Yes [id number] APPLY TO [facility] SODIUM 1 % 5-26 05 AFFECTED ity o f gel 00:00: AREA TWICE [place] 00 A DAY Medical NEEDED FOR Branch PAIN APPLY 2 GRAMS DO NOT EXCEED 4 GRAMS IN A DAY DICLOFENAC 2020-0 Yes [id number] APPLY TO [facility] SODIUM 1 % 5-26 05 AFFECTED ity o f gel 00:00: AREA TWICE [place] 00 A DAY Medical NEEDED FOR Branch PAIN APPLY 2 GRAMS DO NOT EXCEED 4 GRAMS IN A DAY DICLOFENAC 2020-0 Yes [id number] APPLY TO Univers SODIUM 1 % 5-26 05 AFFECTED ity o f gel 00:00: AREA TWICE [place] 00 A DAY Medical NEEDED FOR Branch PAIN APPLY 2 GRAMS DO NOT EXCEED 4 GRAMS IN A DAY DICLOFENAC 2020-0 Yes [id number] APPLY TO [facility] SODIUM 1 % 5-26 05 AFFECTED ity o f gel 00:00: AREA TWICE [place] 00 A DAY Medical NEEDED FOR Branch PAIN APPLY 2 GRAMS DO NOT EXCEED 4 GRAMS IN A DAY DICLOFENAC 2020-0 Yes [id number] APPLY TO [facility] SODIUM 1 % 5-26 05 AFFECTED ity o f gel 00:00: AREA TWICE [place] 00 A DAY Medical NEEDED FOR Branch PAIN APPLY 2 GRAMS DO NOT EXCEED 4 GRAMS IN A DAY DICLOFENAC 2020-0 Yes [id number] APPLY TO [facility] SODIUM 1 % 5-26 05 AFFECTED ity o f gel 00:00: AREA TWICE [place] 00 A DAY Medical NEEDED FOR Branch PAIN APPLY 2 GRAMS DO NOT EXCEED 4 GRAMS IN A DAY DICLOFENAC 2020-0 Yes [id number] APPLY TO [facility] SODIUM 1 % 5-26 05 AFFECTED ity o f gel 00:00: AREA TWICE [place] 00 A DAY Medical NEEDED FOR Branch PAIN APPLY 2 GRAMS DO NOT EXCEED 4 GRAMS IN A DAY DICLOFENAC 2020-0 Yes [id number] APPLY TO [facility] SODIUM 1 % 5-26 05 AFFECTED ity o f gel 00:00: AREA TWICE [place] 00 A DAY Medical NEEDED FOR Branch PAIN APPLY 2 GRAMS DO NOT EXCEED 4 GRAMS IN A DAY DICLOFENAC 2020-0 Yes [id number] APPLY TO [facility] SODIUM 1 % 5-26 05 AFFECTED ity o f gel 00:00: AREA TWICE [place] 00 A DAY Medical NEEDED FOR Branch PAIN APPLY 2 GRAMS DO NOT EXCEED 4 GRAMS IN A DAY DICLOFENAC 2020-0 2020- No [id number] APPLY TO Univers SODIUM 1 % 5-26 -30 05 AFFECTED ity of gel 00:00: 00:00 [...] HOURS Branch solution NEEDED DICLOFENAC 2020-0 Yes [id number] APPLY TO [facility] SODIUM 1 % 4-28 05 AFFECTED ity o f gel 00:00: AREA TWICE [place] 00 A DAY Medical NEEDED FOR Branch PAIN APPLY 2 GRAMS DO NOT EXCEED 4 GRAMS IN A DAY DICLOFENAC Yes [id number] APPLY TO [facility] SODIUM 1 % 4-28 05 AFFECTED ity o f gel 00:00: AREA TWICE [place] 00 A DAY Medical NEEDED FOR Branch PAIN APPLY 2 GRAMS DO NOT EXCEED 4 GRAMS IN A DAY DICLOFENAC Yes [id number] APPLY TO [facility] SODIUM 1 % - 05 AFFECTED ity o f gel 00:00: AREA TWICE [place] 00 A DAY Medical NEEDED FOR Branch PAIN APPLY 2 GRAMS DO NOT EXCEED 4 GRAMS IN A DAY DICLOFENAC 2019- No [id number] APPLY TO [facility] SODIUM 1 % 4- 05-26 05 AFFECTED ity of gel 00:00: 00:00 AREA TWICE [place] 00 :00 A DAY Medical NEEDED FOR Branch PAIN APPLY 2 GRAMS DO NOT EXCEED 4 GRAMS IN A DAY DICLOFENAC Yes [id number] APPLY TO [facility] SODIUM 1 % 4-03 05 AFFECTED ity o f gel 00:00: AREA TWICE [place] 00 A DAY Medical NEEDED FOR Branch PAIN APPLY 2 GRAMS DO NOT EXCEED 4 GRAMS IN A DAY DICLOFENAC 2019- No [id number] APPLY TO [facility] SODIUM 1 % 4-03 04-28 05 AFFECTED ity of gel 00:00: 00:00 AREA TWICE [place] 00 :00 A DAY Medical NEEDED FOR Branch PAIN APPLY 2 GRAMS DO NOT EXCEED 4 GRAMS IN A DAY Diclofenac Yes [id number] Apply to [facility] Sodium 1 % 3-11 05 area(s) 2 ity of gel 00:00: (two) [place] 00 times Medical daily as Branch needed for Pain (scale 4-6) (Apply 2 g do not exceed 4 g in a day). Diclofenac Yes [id number] Apply to [facility] Sodium 1 % 3-11 05 area(s) 2 ity of gel 00:00: (two) [place] 00 times Medical daily as Branch needed for Pain (scale 4-6) (Apply 2 g do not exceed 4 g in a day). Diclofenac Yes [id number] Apply to Univers Sodium 1 % 3-11 05 area(s) 2 ity of gel 00:00: (two) [place] 00 times Medical daily as Branch needed for Pain (scale 4-6) (Apply 2 g do not exceed 4 g in a day). Diclofenac Yes [id number] Apply to [facility] Sodium 1 % 3-11 05 area(s) 2 ity of gel 00:00: (two) [place] 00 times Medical daily as Branch needed for Pain (scale 4-6) (Apply 2 g do not exceed 4 g in a day). Diclofenac 2020-0 Yes [id number] Apply to [facility] Sodium 1 % 3-11 05 area(s) 2 ity of gel 00:00: (two) [place] 00 times Medical daily as Branch needed for Pain (scale 4-6) (Apply 2 g do not exceed 4 g in a day). Diclofenac 2020-0 Yes [id number] Apply to [facility] Sodium 1 % 3-11 05 area(s) 2 ity of gel 00:00: (two) [place] 00 times Medical daily as Branch needed for Pain (scale 4-6) (Apply 2 g do not exceed 4 g in a day). Diclofenac 2020-0 Yes [id number] Apply to [facility] Sodium 1 % 3-11 05 area(s) 2 ity of gel 00:00: (two) [place] 00 times Medical daily as Branch needed for Pain (scale 4-6) (Apply 2 g do not exceed 4 g in a day). Diclofenac 2020-0 Yes [id number] Apply to [facility] Sodium 1 % 3-11 05 area(s) 2 ity of gel 00:00: (two) [place] 00 times Medical daily as Branch needed for Pain (scale 4-6) (Apply 2 g do not exceed 4 g in a day). Diclofenac 2020-0 2020- No [id number] Apply to [facility] Sodium 1 % 3-11 04-03 05 area(s) 2 ity of gel 00:00: 00:00 (two) [place] 00 :00 times Medical daily as Branch needed for Pain (scale 4-6) (Apply 2 g do not exceed 4 g in a day). verapamil 2020-0 Yes 120mg Take 120 Uni vers (VERELAN 2-20 mg by ity of PM) 120 mg 19:22: mouth at [facility] as 24 hr 26 bedtime. Medical capsule Branch metFORMIN 2020-0 Yes 500mg Take 500 Uni vers 500 mg 2-20 mg by ity of tablet 19:22: mouth 2 [place] 26 (two) Medical times Branch daily with meals. rOPINIRole 2020-0 Yes 2mg Take 2 mg [place] 2 mg tablet 2-20 by mouth ity of 19:22: at [place] [address] bedtime. Medical Branch venlafaxine 2020-0 Yes 150mg Take 150 U nivers XR 150 mg 2-20 mg by ity of 24 hr 19:22: mouth [place] [address] daily with Medica l breakfast. Branch clonazePAM 2020-0 Yes .5mg Take 0.5 Uni vers 0.5 mg 2-20 mg by ity of tablet 19:22: mouth at [place] [address] bedtime. Medical Branch pantoprazol 2020-0 Yes 40mg Take 40 mg [facility] e 40 mg EC 2-20 by mouth ity o f tablet 19:22: daily. [place] [address] Medical Branch amitriptyli 2020-0 Yes 75mg Take 75 mg [facility] ne 75 mg 2-20 by mouth ity of tablet 19:22: at [place] [address] bedtime. Medical Branch verapamil 2020-0 Yes 120mg Take 120 Uni vers (VERELAN 2-20 mg by ity of PM) 120 mg 19:22: mouth at [place] as 24 hr bedtime. Medical capsule Branch metFORMIN 2020-0 Yes 500mg Take 500 Uni vers 500 mg 2-20 mg by ity of tablet 19:22: mouth 2 [place] [address] (two) Medical times Branch daily with meals. rOPINIRole 2020-0 Yes 2mg Take 2 mg [place] 2 mg tablet 2-20 by mouth ity of 19:22: at [place] [address] bedtime. Medical Branch venlafaxine 2020-0 Yes 150mg Take 150 U nivers XR 150 mg 2-20 mg by ity of 24 hr 19:22: mouth [place] [address] daily with Medica l breakfast. Branch clonazePAM 2020-0 Yes .5mg Take 0.5 Uni vers 0.5 mg 2-20 mg by ity of tablet 19:22: mouth at [place] [address] bedtime. Medical Branch pantoprazol 2020-0 Yes 40mg Take 40 mg [facility] e 40 mg EC 2-20 by mouth ity o f tablet 19:22: daily. [place] [address] Medical Branch amitriptyli 2020-0 Yes 75mg Take 75 mg Univers ne 75 mg 2-20 by mouth ity of tablet 19:22: at [place] [address] bedtime. Medical Branch verapamil 2020-0 Yes 120mg Take 120 Uni vers (VERELAN 2-20 mg by ity of PM) 120 mg 19:22: mouth at [place] as 24 hr bedtime. Medical capsule Branch metFORMIN 2020-0 Yes 500mg Take 500 Uni vers 500 mg 2-20 mg by ity of tablet 19:22: mouth 2 [place] [address] (two) Medical times Branch daily with meals. rOPINIRole 2020-0 Yes 2mg Take 2 mg [place] 2 mg tablet 2-20 by mouth ity of 19:22: at [place] [address] bedtime. Medical Branch venlafaxine 2020-0 Yes 150mg Take 150 U nivers XR 150 mg 2-20 mg by ity of 24 hr 19:22: mouth [place] capsule daily with Medica l breakfast. Branch clonazePAM 2020-0 Yes .5mg Take 0.5 Uni vers 0.5 mg 2-20 mg by ity of tablet 19:22: mouth at [place] [address] bedtime. Medical Branch pantoprazol 2020-0 Yes 40mg Take 40 mg [facility] e 40 mg EC 2-20 by mouth ity o f tablet 19:22: daily. [place] [address] Medical Branch amitriptyli 2020-0 Yes 75mg Take 75 mg Univers ne 75 mg 2-20 by mouth ity of tablet 19:22: at [place] [address] bedtime. Medical Branch verapamil 2020-0 Yes 120mg Take 120 Uni vers (VERELAN 2-20 mg by ity of PM) 120 mg 19:22: mouth at [place] as 24 hr bedtime. Medical capsule Branch metFORMIN 2020-0 Yes 500mg Take 500 Uni vers 500 mg 2-20 mg by ity of tablet 19:22: mouth 2 [place] [address] (two) Medical times Branch daily with meals. rOPINIRole 2020-0 Yes 2mg Take 2 mg [place] 2 mg tablet 2-20 by mouth ity of 19:22: at [place] [address] bedtime. Medical Branch venlafaxine 2020-0 Yes 150mg Take 150 U nivers XR 150 mg 2-20 mg by ity of 24 hr 19:22: mouth [place] capsule daily with Medica l breakfast. Branch clonazePAM 2020-0 Yes .5mg Take 0.5 Uni vers 0.5 mg 2-20 mg by ity of tablet 19:22: mouth at [place] [address] bedtime. Medical Branch pantoprazol 2020-0 Yes 40mg Take 40 mg Univers e 40 mg EC 2-20 by mouth ity o f tablet 19:22: daily. [place] [address] Medical Branch amitriptyli 2020-0 Yes 75mg Take 75 mg Univers ne 75 mg 2-20 by mouth ity of tablet 19:22: at [place] [address] bedtime. Medical Branch verapamil 2020-0 Yes 120mg Take 120 Uni vers (VERELAN 2-20 mg by ity of PM) 120 mg 19:22: mouth at [place] 24 hr 26 bedtime. Medical capsule Branch metFORMIN 2020-0 Yes 500mg Take 500 Uni vers 500 mg 2-20 mg by ity of tablet 19:22: mouth 2 [place] [address] (two) Medical times Branch daily with meals. rOPINIRole 2020-0 Yes 2mg Take 2 mg [place] 2 mg tablet 2-20 by mouth ity of 19:22: at [place] [address] bedtime. Medical Branch venlafaxine 2020-0 Yes 150mg Take 150 U nivers XR 150 mg 2-20 mg by ity of 24 hr 19:22: mouth [place] [address] daily with Medica l breakfast. Branch clonazePAM 2020-0 Yes .5mg Take 0.5 Uni vers 0.5 mg 2-20 mg by ity of tablet 19:22: mouth at [place] [address] bedtime. Medical Branch pantoprazol 2020-0 Yes 40mg Take 40 mg [facility] e 40 mg EC 2-20 by mouth ity o f tablet 19:22: daily. [place] [address] Medical Branch amitriptyli 2020-0 Yes 75mg Take 75 mg Univers ne 75 mg 2-20 by mouth ity of tablet 19:22: at [place] [address] bedtime. Medical Branch verapamil 2020-0 Yes 120mg Take 120 Uni vers (VERELAN 2-20 mg by ity of PM) 120 mg 19:22: mouth at [place] as 24 hr bedtime. Medical capsule Branch metFORMIN 2020-0 Yes 500mg Take 500 Uni vers 500 mg 2-20 mg by ity of tablet 19:22: mouth 2 [place] [address] (two) Medical times Branch daily with meals. rOPINIRole 2020-0 Yes 2mg Take 2 mg [place] 2 mg tablet 2-20 by mouth ity of 19:22: at [place] [address] bedtime. Medical Branch venlafaxine 2020-0 Yes 150mg Take 150 U nivers XR 150 mg 2-20 mg by ity of 24 hr 19:22: mouth [place] [address] daily with Medica l breakfast. Branch clonazePAM 2020-0 Yes .5mg Take 0.5 Uni vers 0.5 mg 2-20 mg by ity of tablet 19:22: mouth at [place] [address] bedtime. Medical Branch pantoprazol 2020-0 Yes 40mg Take 40 mg Univers e 40 mg EC 2-20 by mouth ity o f tablet 19:22: daily. [place] [address] Medical Branch amitriptyli 2020-0 Yes 75mg Take 75 mg Univers ne 75 mg 2-20 by mouth ity of tablet 19:22: at [place] [address] bedtime. Medical Branch verapamil 2020-0 Yes 120mg Take 120 Uni vers (VERELAN 2-20 mg by ity of PM) 120 mg 19:22: mouth at [facility] as 24 hr 26 bedtime. Medical capsule Branch metFORMIN 2020-0 Yes 500mg Take 500 Uni vers 500 mg 2-20 mg by ity of tablet 19:22: mouth 2 [place] [address] (two) Medical times Branch daily with meals. rOPINIRole 2020-0 Yes 2mg Take 2 mg [place] 2 mg tablet 2-20 by mouth ity of 19:22: at [place] [address] bedtime. Medical Branch venlafaxine 2020-0 Yes 150mg Take 150 U nivers XR 150 mg 2-20 mg by ity of 24 hr 19:22: mouth [place] [address] daily with Medica l breakfast. Branch clonazePAM 2020-0 Yes .5mg Take 0.5 Uni vers 0.5 mg 2-20 mg by ity of tablet 19:22: mouth at [place] [address] bedtime. Medical Branch pantoprazol 2020-0 Yes 40mg Take 40 mg Univers e 40 mg EC 2-20 by mouth ity o f tablet 19:22: daily. [place] [address] Medical Branch amitriptyli 2020-0 Yes 75mg Take 75 mg Univers ne 75 mg 2-20 by mouth ity of tablet 19:22: at [place] [address] bedtime. Medical Branch verapamil 2020-0 Yes 120mg Take 120 Uni vers (VERELAN 2-20 mg by ity of PM) 120 mg 19:22: mouth at [place] as 24 hr bedtime. Medical capsule Branch metFORMIN 2020-0 Yes 500mg Take 500 Uni vers 500 mg 2-20 mg by ity of tablet 19:22: mouth 2 [place] [address] (two) Medical times Branch daily with meals. rOPINIRole 2020-0 Yes 2mg Take 2 mg [place] 2 mg tablet 2-20 by mouth ity of 19:22: at [place] [address] bedtime. Medical Branch venlafaxine 2020-0 Yes 150mg Take 150 U nivers XR 150 mg 2-20 mg by ity of 24 hr 19:22: mouth [place] capsule daily with Medica l breakfast. Branch clonazePAM 2020-0 Yes .5mg Take 0.5 Uni vers 0.5 mg 2-20 mg by ity of tablet 19:22: mouth at [place] [address] bedtime. Medical Branch pantoprazol 2020-0 Yes 40mg Take 40 mg Univers e 40 mg EC 2-20 by mouth ity o f tablet 19:22: daily. [place] [address] Medical Branch amitriptyli 2020-0 Yes 75mg Take 75 mg Univers ne 75 mg 2-20 by mouth ity of tablet 19:22: at [place] [address] bedtime. Medical Branch verapamil 2020-0 Yes 120mg Take 120 Uni vers (VERELAN 2-20 mg by ity of PM) 120 mg 19:22: mouth at [facility] as 24 hr 26 bedtime. Medical capsule Branch metFORMIN 2020-0 Yes 500mg Take 500 Uni vers 500 mg 2-20 mg by ity of tablet 19:22: mouth [place] [address] (two) Medical times Branch daily with meals. rOPINIRole 2020-0 Yes 2mg Take 2 mg [place] 2 mg tablet 2-20 by mouth ity of 19:22: at [place] [address] bedtime. Medical Branch venlafaxine 2020-0 Yes 150mg Take 150 U nivers XR 150 mg 2-20 mg by ity of 24 hr 19:22: mouth [facility] daily with Medica l breakfast. Branch clonazePAM 2020-0 Yes .5mg Take 0.5 Uni vers 0.5 mg 2-20 mg by ity of tablet 19:22: mouth at [place] [address] bedtime. Medical Branch pantoprazol 2020-0 Yes 40mg Take 40 mg Univers e 40 mg EC 2-20 by mouth ity o f tablet 19:22: daily. [place] [address] Medical Branch amitriptyli 2020-0 Yes 75mg Take 75 mg Univers ne 75 mg 2-20 by mouth ity of tablet 19:22: at [place] [address] bedtime. Medical Branch clonazePAM 2020-0 Yes .5mg Take 0.5 Uni vers 0.5 mg 2-20 mg by ity of tablet 19:22: mouth at [place] [address] bedtime. Medical Branch clonazePAM 2020-0 Yes .5mg Take 0.5 Uni vers 0.5 mg 2-20 mg by ity of tablet 19:22: mouth at [place] [address] bedtime. Medical Branch clonazePAM 2020-0 Yes .5mg Take 0.5 Uni vers 0.5 mg 2-20 mg by ity of tablet 19:22: mouth at [place] [address] bedtime. Medical Branch clonazePAM 2020-0 Yes .5mg Take 0.5 Uni vers 0.5 mg 2-20 mg by ity of tablet 19:22: mouth at [place] [address] bedtime. Medical Branch clonazePAM 2020-0 Yes .5mg Take 0.5 Uni vers 0.5 mg 2-20 mg by ity of tablet 19:22: mouth at [place] [address] bedtime. Medical Branch clonazePAM 2020-0 Yes .5mg Take 0.5 Uni vers 0.5 mg 2-20 mg by ity of tablet 19:22: mouth at [place] [address] bedtime. Medical Branch clonazePAM 2020-0 Yes .5mg Take 0.5 Uni vers 0.5 mg 2-20 mg by ity of tablet 19:22: mouth at [place] [address] bedtime. Medical Branch clonazePAM 2020-0 Yes .5mg Take 0.5 Uni vers 0.5 mg 2-20 mg by ity of tablet 19:22: mouth at [place] [address] bedtime. Medical Branch clonazePAM 2020-0 Yes .5mg Take 0.5 Uni vers 0.5 mg 2-20 mg by ity of tablet 19:22: mouth at [place] [address] bedtime. Medical Branch clonazePAM 2020-0 Yes .5mg Take 0.5 Uni vers 0.5 mg 2-20 mg by ity of tablet 19:22: mouth at [place] [address] bedtime. Medical Branch clonazePAM 2020-0 Yes .5mg Take 0.5 Uni vers 0.5 mg 2-20 mg by ity of tablet 19:22: mouth at [place] [address] bedtime. Medical Branch clonazePAM 2020-0 Yes .5mg Take 0.5 Uni vers 0.5 mg 2-20 mg by ity of tablet 19:22: mouth at [place] [address] bedtime. Medical Branch clonazePAM 2020-0 Yes .5mg Take 0.5 Uni vers 0.5 mg 2-20 mg by ity of tablet 19:22: mouth at [place] [address] bedtime. Medical Branch clonazePAM 2020-0 Yes .5mg Take 0.5 Uni vers 0.5 mg 2-20 mg by ity of tablet 19:22: mouth at [place] [address] bedtime. Medical Branch clonazePAM 2020-0 Yes .5mg Take 0.5 Uni vers 0.5 mg 2-20 mg by ity of tablet 19:22: mouth at [place] [address] bedtime. Medical Branch clonazePAM 2020-0 Yes .5mg Take 0.5 Uni vers 0.5 mg 2-20 mg by ity of tablet 19:22: mouth at [place] [address] bedtime. Medical Branch clonazePAM 2020-0 Yes .5mg Take 0.5 Uni vers 0.5 mg 2-20 mg by ity of tablet 19:22: mouth at [place] [address] bedtime. Medical Branch clonazePAM 2020-0 Yes .5mg Take 0.5 Uni vers 0.5 mg 2-20 mg by ity of tablet 19:22: mouth at [place] [address] bedtime. Medical Branch clonazePAM 2020-0 Yes .5mg Take 0.5 Uni vers 0.5 mg 2-20 mg by ity of tablet 19:22: mouth at [place] [address] bedtime. Medical Branch clonazePAM 2020-0 Yes .5mg Take 0.5 Uni vers 0.5 mg 2-20 mg by ity of tablet 19:22: mouth at [place] [address] bedtime. Medical Branch clonazePAM 2020-0 Yes .5mg Take 0.5 Uni vers 0.5 mg 2-20 mg by ity of tablet 19:22: mouth at [place] [address] bedtime. Medical Branch clonazePAM 2020-0 Yes .5mg Take 0.5 Uni vers 0.5 mg 2-20 mg by ity of tablet 19:22: mouth at [place] [address] bedtime. Medical Branch clonazePAM 2020-0 Yes .5mg Take 0.5 Uni vers 0.5 mg 2-20 mg by ity of tablet 19:22: mouth at [place] [address] bedtime. Medical Branch verapamil 2020-0 Yes 120mg Take 120 Uni vers (VERELAN 2-20 mg by ity of PM) 120 mg 19:22: mouth at [place] as 24 hr 26 bedtime. Medical capsule Branch metFORMIN 2020-0 Yes 500mg Take 500 Uni vers 500 mg 2-20 mg by ity of tablet 19:22: mouth 2 [place] [address] (two) Medical times Branch daily with meals. rOPINIRole 2020-0 Yes 2mg Take 2 mg [place] 2 mg tablet 2-20 by mouth ity of 19:22: at [place] [address] bedtime. Medical Branch venlafaxine 2020-0 Yes 150mg Take 150 U nivers XR 150 mg 2-20 mg by ity of 24 hr 19:22: mouth [place] capsule daily with Medica l breakfast. Branch clonazePAM 2020-0 Yes .5mg Take 0.5 Uni vers 0.5 mg 2-20 mg by ity of tablet 19:22: mouth at [place] [address] bedtime. Medical Branch pantoprazol 2020-0 Yes 40mg Take 40 mg [facility] e 40 mg EC 2-20 by mouth ity o f tablet 19:22: daily. [place] [address] Medical Branch amitriptyli 2020-0 Yes 75mg Take 75 mg [facility] ne 75 mg 2-20 by mouth ity of tablet 19:22: at [place] [address] bedtime. Medical Branch verapamil 2020-0 Yes 120mg Take 120 Uni vers (VERELAN 2-20 mg by ity of PM) 120 mg 19:22: mouth at [place] 24 hr 26 bedtime. Medical capsule Branch metFORMIN 2020-0 Yes 500mg Take 500 [facility] vers 500 mg 2-20 mg by ity of tablet 19:22: mouth [place] [address] (two) Medical times Branch daily with meals. rOPINIRole 2020-0 Yes 2mg Take 2 mg [place] 2 mg tablet 2-20 by mouth ity of 19:22: at [place] [address] bedtime. Medical Branch venlafaxine 2020-0 Yes 150mg Take 150 U nivers XR 150 mg 2-20 mg by ity of 24 hr 19:22: mouth [place] capsule daily with Medica l breakfast. Branch clonazePAM 2020-0 Yes .5mg Take 0.5 Uni vers 0.5 mg 2-20 mg by ity of tablet 19:22: mouth at [place] [address] bedtime. Medical Branch pantoprazol 2020-0 Yes 40mg Take 40 mg [facility] e 40 mg EC 2-20 by mouth ity o f tablet 19:22: daily. [place] [address] Medical Branch amitriptyli 2020-0 Yes 75mg Take 75 mg [facility] ne 75 mg 2-20 by mouth ity of tablet 19:22: at [place] [address] bedtime. Medical Branch verapamil 2020-0 Yes 120mg Take 120 [facility] vers (VERELAN 2-20 mg by ity of PM) 120 mg 19:22: mouth at [place] 24 hr 26 bedtime. Medical capsule Branch metFORMIN 2020-0 Yes 500mg Take 500 [facility] vers 500 mg 2-20 mg by ity of tablet 19:22: mouth 2 [place] [address] (two) Medical times Branch daily with meals. rOPINIRole 2020-0 Yes 2mg Take 2 mg [place] 2 mg tablet 2-20 by mouth ity of 19:22: at [place] [address] bedtime. Medical Branch venlafaxine 2020-0 Yes 150mg Take 150 U nivers XR 150 mg 2-20 mg by ity of 24 hr 19:22: mouth [place] capsule daily with Medica l breakfast. Branch clonazePAM 2020-0 Yes .5mg Take 0.5 Uni vers 0.5 mg 2-20 mg by ity of tablet 19:22: mouth at [place] [address] bedtime. Medical Branch pantoprazol 2020-0 Yes 40mg Take 40 mg [facility] e 40 mg EC 2-20 by mouth ity o f tablet 19:22: daily. [place] [address] Medical Branch amitriptyli 2020-0 Yes 75mg Take 75 mg [facility] ne 75 mg 2-20 by mouth ity of tablet 19:22: at [place] [address] bedtime. Medical Branch verapamil 2020-0 Yes 120mg Take 120 [facility] vers (VERELAN 2-20 mg by ity of PM) 120 mg 19:22: mouth at [facility] as 24 hr bedtime. Medical capsule Branch metFORMIN 2020-0 Yes 500mg Take 500 Uni vers 500 mg 2-20 mg by ity of tablet 19:22: mouth 2 [place] [address] (two) Medical times Branch daily with meals. rOPINIRole 2020-0 Yes 2mg Take 2 mg [place] 2 mg tablet 2-20 by mouth ity of 19:22: at [place] [address] bedtime. Medical Branch venlafaxine 2020-0 Yes 150mg Take 150 U nivers XR 150 mg 2-20 mg by ity of 24 hr 19:22: mouth [place] capsule daily with Medica l breakfast. Branch clonazePAM 2020-0 Yes .5mg Take 0.5 Uni vers 0.5 mg 2-20 mg by ity of tablet 19:22: mouth at [place] [address] bedtime. Medical Branch pantoprazol 2020-0 Yes 40mg Take 40 mg [facility] e 40 mg EC 2-20 by mouth ity o f tablet 19:22: daily. [place] [address] Medical Branch amitriptyli 2020-0 Yes 75mg Take 75 mg [facility] ne 75 mg 2-20 by mouth ity of tablet 19:22: at [place] [address] bedtime. Medical Branch verapamil 2020-0 Yes 120mg Take 120 [facility] vers (VERELAN 2-20 mg by ity of PM) 120 mg 19:22: mouth at [place] 24 hr 26 bedtime. Medical capsule Branch metFORMIN 2020-0 Yes 500mg Take 500 [facility] vers 500 mg 2-20 mg by ity of tablet 19:22: mouth 2 [place] [address] (two) Medical times Branch daily with meals. rOPINIRole 2020-0 Yes 2mg Take 2 mg [place] 2 mg tablet 2-20 by mouth ity of 19:22: at [place] [address] bedtime. Medical Branch venlafaxine 2020-0 Yes 150mg Take 150 U nivers XR 150 mg 2-20 mg by ity of 24 hr 19:22: mouth [place] capsule daily with Medica l breakfast. Branch clonazePAM 2020-0 Yes .5mg Take 0.5 Uni vers 0.5 mg 2-20 mg by ity of tablet 19:22: mouth at [place] [address] bedtime. Medical Branch pantoprazol 2020-0 Yes 40mg Take 40 mg [facility] e 40 mg EC 2-20 by mouth ity o f tablet 19:22: daily. [place] [address] Medical Branch amitriptyli 2020-0 Yes 75mg Take 75 mg [facility] ne 75 mg 2-20 by mouth ity of tablet 19:22: at [place] [address] bedtime. Medical Branch verapamil 2020-0 Yes 120mg Take 120 Uni vers (VERELAN 2-20 mg by ity of PM) 120 mg 19:22: mouth at [place] as 24 hr 26 bedtime. Medical capsule Branch metFORMIN 2020-0 Yes 500mg Take 500 Uni vers 500 mg 2-20 mg by ity of tablet 19:22: mouth 2 [place] [address] (two) Medical times Branch daily with meals. rOPINIRole 2020-0 Yes 2mg Take 2 mg [place] 2 mg tablet 2-20 by mouth ity of 19:22: at [place] [address] bedtime. Medical Branch venlafaxine 2020-0 Yes 150mg Take 150 U nivers XR 150 mg 2-20 mg by ity of 24 hr 19:22: mouth [place] capsule daily with Medica l breakfast. Branch clonazePAM 2020-0 Yes .5mg Take 0.5 Uni vers 0.5 mg 2-20 mg by ity of tablet 19:22: mouth at [place] [address] bedtime. Medical Branch pantoprazol 2020-0 Yes 40mg Take 40 mg [facility] e 40 mg EC 2-20 by mouth ity o f tablet 19:22: daily. [place] [address] Medical Branch amitriptyli 2020-0 Yes 75mg Take 75 mg [facility] ne 75 mg 2-20 by mouth ity of tablet 19:22: at [place] [address] bedtime. Medical Branch verapamil 2020-0 Yes 120mg Take 120 Uni vers (VERELAN 2-20 mg by ity of PM) 120 mg 19:22: mouth at [place] 24 hr 26 bedtime. Medical capsule Branch metFORMIN 2020-0 Yes 500mg Take 500 Uni vers 500 mg 2-20 mg by ity of tablet 19:22: mouth 2 [place] [address] (two) Medical times Branch daily with meals. rOPINIRole 2020-0 Yes 2mg Take 2 mg [place] 2 mg tablet 2-20 by mouth ity of 19:22: at [place] [address] bedtime. Medical Branch venlafaxine 2020-0 Yes 150mg Take 150 U nivers XR 150 mg 2-20 mg by ity of 24 hr 19:22: mouth [place] [address] daily with Medica l breakfast. Branch clonazePAM 2020-0 Yes .5mg Take 0.5 Uni vers 0.5 mg 2-20 mg by ity of tablet 19:22: mouth at [place] [address] bedtime. Medical Branch pantoprazol 2020-0 Yes 40mg Take 40 mg [facility] e 40 mg EC 2-20 by mouth ity o f tablet 19:22: daily. [place] [address] Medical Branch amitriptyli 2020-0 Yes 75mg Take 75 mg Univers ne 75 mg 2-20 by mouth ity of tablet 19:22: at [place] [address] bedtime. Medical Branch verapamil 2020-0 Yes 120mg Take 120 Uni vers (VERELAN 2-20 mg by ity of PM) 120 mg 19:22: mouth at [place] 24 hr 26 bedtime. Medical capsule Branch metFORMIN 2020-0 Yes 500mg Take 500 Uni vers 500 mg 2-20 mg by ity of tablet 19:22: mouth 2 [place] [address] (two) Medical times Branch daily with meals. rOPINIRole 2020-0 Yes 2mg Take 2 mg [place] 2 mg tablet 2-20 by mouth ity of 19:22: at [place] [address] bedtime. Medical Branch venlafaxine 2020-0 Yes 150mg Take 150 U nivers XR 150 mg 2-20 mg by ity of 24 hr 19:22: mouth [place] capsule 26 daily with Medica l breakfast. Branch clonazePAM 2020-0 Yes .5mg Take 0.5 Uni vers 0.5 mg 2-20 mg by ity of tablet 19:22: mouth at [place] [address] bedtime. Medical Branch pantoprazol 2020-0 Yes 40mg Take 40 mg [facility] e 40 mg EC 2-20 by mouth ity o f tablet 19:22: daily. [place] [address] Medical Branch amitriptyli 2020-0 Yes 75mg Take 75 mg Univers ne 75 mg 2-20 by mouth ity of tablet 19:22: at [place] [address] bedtime. Medical Branch verapamil 2020-0 Yes 120mg Take 120 Uni vers (VERELAN 2-20 mg by ity of PM) 120 mg 19:22: mouth at [place] as 24 hr bedtime. Medical capsule Branch metFORMIN 2020-0 Yes 500mg Take 500 Uni vers 500 mg 2-20 mg by ity of tablet 19:22: mouth 2 [place] [address] (two) Medical times Branch daily with meals. rOPINIRole 2020-0 Yes 2mg Take 2 mg [place] 2 mg tablet 2-20 by mouth ity of 19:22: at [place] [address] bedtime. Medical Branch venlafaxine 2020-0 Yes 150mg Take 150 U nivers XR 150 mg 2-20 mg by ity of 24 hr 19:22: mouth [place] capsule daily with Medica l breakfast. Branch clonazePAM 2020-0 Yes .5mg Take 0.5 Uni vers 0.5 mg 2-20 mg by ity of tablet 19:22: mouth at [place] [address] bedtime. Medical Branch pantoprazol 2020-0 Yes 40mg Take 40 mg Univers e 40 mg EC 2-20 by mouth ity o f tablet 19:22: daily. [place] [address] Medical Branch amitriptyli 2020-0 Yes 75mg Take 75 mg Univers ne 75 mg 2-20 by mouth ity of tablet 19:22: at [place] [address] bedtime. Medical Branch verapamil 2020-0 Yes 120mg Take 120 Uni vers (VERELAN 2-20 mg by ity of PM) 120 mg 19:22: mouth at [place] as 24 hr bedtime. Medical capsule Branch metFORMIN 2020-0 Yes 500mg Take 500 Uni vers 500 mg 2-20 mg by ity of tablet 19:22: mouth 2 [place] [address] (two) Medical times Branch daily with meals. rOPINIRole 2020-0 Yes 2mg Take 2 mg [place] 2 mg tablet 2-20 by mouth ity of 19:22: at [place] [address] bedtime. Medical Branch venlafaxine 2020-0 Yes 150mg Take 150 U nivers XR 150 mg 2-20 mg by ity of 24 hr 19:22: mouth [place] capsule daily with Medica l breakfast. Branch clonazePAM 2020-0 Yes .5mg Take 0.5 Uni vers 0.5 mg 2-20 mg by ity of tablet 19:22: mouth at [place] [address] bedtime. Medical Branch pantoprazol 2020-0 Yes 40mg Take 40 mg Univers e 40 mg EC 2-20 by mouth ity o f tablet 19:22: daily. [place] [address] Medical Branch amitriptyli 2020-0 Yes 75mg Take 75 mg Univers ne 75 mg 2-20 by mouth ity of tablet 19:22: at [place] [address] bedtime. Medical Branch verapamil 2020-0 Yes 120mg Take 120 Uni vers (VERELAN 2-20 mg by ity of PM) 120 mg 19:22: mouth at [facility] as 24 hr bedtime. Medical capsule Branch metFORMIN 2020-0 Yes 500mg Take 500 Uni vers 500 mg 2-20 mg by ity of tablet 19:22: mouth 2 [place] [address] (two) Medical times Branch daily with meals. rOPINIRole 2020-0 Yes 2mg Take 2 mg [place] 2 mg tablet 2-20 by mouth ity of 19:22: at [place] [address] bedtime. Medical Branch venlafaxine 2020-0 Yes 150mg Take 150 U nivers XR 150 mg 2-20 mg by ity of 24 hr 19:22: mouth [place] [address] daily with Medica l breakfast. Branch clonazePAM 2020-0 Yes .5mg Take 0.5 Uni vers 0.5 mg 2-20 mg by ity of tablet 19:22: mouth at [place] [address] bedtime. Medical Branch pantoprazol 2020-0 Yes 40mg Take 40 mg Univers e 40 mg EC 2-20 by mouth ity o f tablet 19:22: daily. [place] [address] Medical Branch amitriptyli 2020-0 Yes 75mg Take 75 mg Univers ne 75 mg 2-20 by mouth ity of tablet 19:22: at [place] [address] bedtime. Medical Branch verapamil 2020-0 Yes 120mg Take 120 Uni vers (VERELAN 2-20 mg by ity of PM) 120 mg 19:22: mouth at [place] as 24 hr 26 bedtime. Medical capsule Branch metFORMIN 2020-0 Yes 500mg Take 500 Uni vers 500 mg 2-20 mg by ity of tablet 19:22: mouth 2 [place] [address] (two) Medical times Branch daily with meals. rOPINIRole 2020-0 Yes 2mg Take 2 mg [place] 2 mg tablet 2-20 by mouth ity of 19:22: at [place] [address] bedtime. Medical Branch venlafaxine 2020-0 Yes 150mg Take 150 U nivers XR 150 mg 2-20 mg by ity of 24 hr 19:22: mouth [place] capsule daily with Medica l breakfast. Branch clonazePAM 2020-0 Yes .5mg Take 0.5 Uni vers 0.5 mg 2-20 mg by ity of tablet 19:22: mouth at [place] [address] bedtime. Medical Branch pantoprazol 2020-0 Yes 40mg Take 40 mg Univers e 40 mg EC 2-20 by mouth ity o f tablet 19:22: daily. [place] [address] Medical Branch amitriptyli 2020-0 Yes 75mg Take 75 mg Univers ne 75 mg 2-20 by mouth ity of tablet 19:22: at [place] [address] bedtime. Medical Branch verapamil 2020-0 Yes 120mg Take 120 Uni vers (VERELAN 2-20 mg by ity of PM) 120 mg 19:22: mouth at [place] 24 hr 26 bedtime. Medical capsule Branch metFORMIN 2020-0 Yes 500mg Take 500 Uni vers 500 mg 2-20 mg by ity of tablet 19:22: mouth 2 [place] [address] (two) Medical times Branch daily with meals. rOPINIRole 2020-0 Yes 2mg Take 2 mg [place] 2 mg tablet 2-20 by mouth ity of 19:22: at [place] [address] bedtime. Medical Branch venlafaxine 2020-0 Yes 150mg Take 150 U nivers XR 150 mg 2-20 mg by ity of 24 hr 19:22: mouth [place] capsule daily with Medica l breakfast. Branch clonazePAM 2020-0 Yes .5mg Take 0.5 Uni vers 0.5 mg 2-20 mg by ity of tablet 19:22: mouth at [place] [address] bedtime. Medical Branch pantoprazol 2020-0 Yes 40mg Take 40 mg Univers e 40 mg EC 2-20 by mouth ity o f tablet 19:22: daily. [place] [address] Medical Branch amitriptyli 2020-0 Yes 75mg Take 75 mg Univers ne 75 mg 2-20 by mouth ity of tablet 19:22: at [place] [address] bedtime. Medical Branch verapamil 2020-0 Yes 120mg Take 120 Uni vers (VERELAN 2-20 mg by ity of PM) 120 mg 19:22: mouth at [place] 24 hr 26 bedtime. Medical capsule Branch metFORMIN 2020-0 Yes 500mg Take 500 Uni vers 500 mg 2-20 mg by ity of tablet 19:22: mouth 2 [place] [address] (two) Medical times Branch daily with meals. rOPINIRole 2020-0 Yes 2mg Take 2 mg [place] 2 mg tablet 2-20 by mouth ity of 19:22: at [place] [address] bedtime. Medical Branch venlafaxine 2020-0 Yes 150mg Take 150 U nivers XR 150 mg 2-20 mg by ity of 24 hr 19:22: mouth [place] [address] daily with Medica l breakfast. Branch clonazePAM 2020-0 Yes .5mg Take 0.5 Uni vers 0.5 mg 2-20 mg by ity of tablet 19:22: mouth at [place] [address] bedtime. Medical Branch pantoprazol 2020-0 Yes 40mg Take 40 mg Univers e 40 mg EC 2-20 by mouth ity o f tablet 19:22: daily. [place] [address] Medical Branch amitriptyli 2020-0 Yes 75mg Take 75 mg Univers ne 75 mg 2-20 by mouth ity of tablet 19:22: at [place] [address] bedtime. Medical Branch verapamil 2020-0 Yes 120mg Take 120 Uni vers (VERELAN 2-20 mg by ity of PM) 120 mg 19:22: mouth at [place] 24 hr 26 bedtime. Medical capsule Branch metFORMIN 2020-0 Yes 500mg Take 500 Uni vers 500 mg 2-20 mg by ity of tablet 19:22: mouth 2 [place] [address] (two) Medical times Branch daily with meals. rOPINIRole 2020-0 Yes 2mg Take 2 mg [place] 2 mg tablet 2-20 by mouth ity of 19:22: at [place] [address] bedtime. Medical Branch venlafaxine 2020-0 Yes 150mg Take 150 U nivers XR 150 mg 2-20 mg by ity of 24 hr 19:22: mouth [place] [address] daily with Medica l breakfast. Branch clonazePAM 2020-0 Yes .5mg Take 0.5 Uni vers 0.5 mg 2-20 mg by ity of tablet 19:22: mouth at [place] [address] bedtime. Medical Branch pantoprazol 2020-0 Yes 40mg Take 40 mg Univers e 40 mg EC 2-20 by mouth ity o f tablet 19:22: daily. [place] [address] Medical Branch amitriptyli 2020-0 Yes 75mg Take 75 mg Univers ne 75 mg 2-20 by mouth ity of tablet 19:22: at [place] [address] bedtime. Medical Branch verapamil 2020-0 Yes 120mg Take 120 Uni vers (VERELAN 2-20 mg by ity of PM) 120 mg 19:22: mouth at [place] as 24 hr bedtime. Medical capsule Branch metFORMIN 2020-0 Yes 500mg Take 500 Uni vers 500 mg 2-20 mg by ity of tablet 19:22: mouth 2 [place] [address] (two) Medical times [place] daily with meals. rOPINIRole 2020-0 Yes 2mg Take 2 mg [place] 2 mg tablet 2-20 by mouth ity of 19:22: at [place] [address] bedtime. Medical Branch venlafaxine 2020-0 Yes 150mg Take 150 U nivers XR 150 mg 2-20 mg by ity of 24 hr 19:22: mouth [place] [address] daily with Medica l breakfast. Branch clonazePAM 2020-0 Yes .5mg Take 0.5 Uni vers 0.5 mg 2-20 mg by ity of tablet 19:22: mouth at [place] [address] bedtime. Medical Branch pantoprazol 2020-0 Yes 40mg Take 40 mg Univers e 40 mg EC 2-20 by mouth ity o f tablet 19:22: daily. [place] [address] Medical Branch amitriptyli 2020-0 Yes 75mg Take 75 mg Univers ne 75 mg 2-20 by mouth ity of tablet 19:22: at [place] [address] bedtime. Medical Branch verapamil 2020-0 Yes 120mg Take 120 Uni vers (VERELAN 2-20 mg by ity of PM) 120 mg 19:22: mouth at [place] as 24 hr bedtime. Medical capsule Branch metFORMIN 2020-0 Yes 500mg Take 500 Uni vers 500 mg 2-20 mg by ity of tablet 19:22: mouth 2 [place] [address] (two) Medical times [place] daily with meals. rOPINIRole 2020-0 Yes 2mg Take 2 mg [place] 2 mg tablet 2-20 by mouth ity of 19:22: at [place] [address] bedtime. Medical Branch venlafaxine 2020-0 Yes 150mg Take 150 U nivers XR 150 mg 2-20 mg by ity of 24 hr 19:22: mouth [place] capsule daily with Medica l breakfast. Branch clonazePAM 2020-0 Yes .5mg Take 0.5 Uni vers 0.5 mg 2-20 mg by ity of tablet 19:22: mouth at [place] [address] bedtime. Medical Branch pantoprazol 2020-0 Yes 40mg Take 40 mg Univers e 40 mg EC 2-20 by mouth ity o f tablet 19:22: daily. [place] [address] Medical Branch amitriptyli 2020-0 Yes 75mg Take 75 mg [facility] ne 75 mg 2-20 by mouth ity of tablet 19:22: at [place] [address] bedtime. Medical Branch verapamil 2020-0 Yes 120mg Take 120 Uni vers (VERELAN 2-20 mg by ity of PM) 120 mg 19:22: mouth at [place] as 24 hr 26 bedtime. Medical capsule Branch metFORMIN 2020-0 Yes 500mg Take 500 Uni vers 500 mg 2-20 mg by ity of tablet 19:22: mouth 2 [place] [address] (two) Medical times Branch daily with meals. rOPINIRole 2020-0 Yes 2mg Take 2 mg [place] 2 mg tablet 2-20 by mouth ity of 19:22: at [place] [address] bedtime. Medical Branch venlafaxine 2020-0 Yes 150mg Take 150 U nivers XR 150 mg 2-20 mg by ity of 24 hr 19:22: mouth [place] capsule daily with Medica l breakfast. Branch clonazePAM 2020-0 Yes .5mg Take 0.5 Uni vers 0.5 mg 2-20 mg by ity of tablet 19:22: mouth at [place] [address] bedtime. Medical Branch pantoprazol 2020-0 Yes 40mg Take 40 mg Univers e 40 mg EC 2-20 by mouth ity o f tablet 19:22: daily. [place] [address] Medical Branch amitriptyli 2020-0 Yes 75mg Take 75 mg Univers ne 75 mg 2-20 by mouth ity of tablet 19:22: at [place] [address] bedtime. Medical Branch verapamil 2020-0 Yes 120mg Take 120 Uni vers (VERELAN 2-20 mg by ity of PM) 120 mg 19:22: mouth at [place] as 24 hr 26 bedtime. Medical capsule Branch metFORMIN 2020-0 Yes 500mg Take 500 Uni vers 500 mg 2-20 mg by ity of tablet 19:22: mouth 2 [place] [address] (two) Medical times Branch daily with meals. rOPINIRole 2020-0 Yes 2mg Take 2 mg [place] 2 mg tablet 2-20 by mouth ity of 19:22: at [place] [address] bedtime. Medical Branch venlafaxine 2020-0 Yes 150mg Take 150 U nivers XR 150 mg 2-20 mg by ity of 24 hr 19:22: mouth [place] [address] daily with Medica l breakfast. Branch clonazePAM 2020-0 Yes .5mg Take 0.5 Uni vers 0.5 mg 2-20 mg by ity of tablet 19:22: mouth at [place] [address] bedtime. Medical Branch pantoprazol 2020-0 Yes 40mg Take 40 mg Univers e 40 mg EC 2-20 by mouth ity o f tablet 19:22: daily. [place] [address] Medical Branch amitriptyli 2020-0 Yes 75mg Take 75 mg Univers ne 75 mg 2-20 by mouth ity of tablet 19:22: at [place] [address] bedtime. Medical Branch clonazePAM 2020-0 Yes .5mg Take 0.5 Uni vers 0.5 mg 2-20 mg by ity of tablet 13:22: mouth at [place] [address] bedtime. Medical Branch clonazePAM 2020-0 Yes .5mg Take 0.5 Uni vers 0.5 mg 2-20 mg by ity of tablet 13:22: mouth at [place] [address] bedtime. Medical Branch clonazePAM 2020-0 Yes .5mg Take 0.5 Uni vers 0.5 mg 2-20 mg by ity of tablet 13:22: mouth at [place] [address] bedtime. Medical Branch clonazePAM 2020-0 Yes .5mg Take 0.5 Uni vers 0.5 mg 2-20 mg by ity of tablet 13:22: mouth at [place] [address] bedtime. Medical Branch clonazePAM 2020-0 Yes .5mg Take 0.5 Uni vers 0.5 mg 2-20 mg by ity of tablet 13:22: mouth at [place] [address] bedtime. Medical Branch clonazePAM 2020-0 Yes .5mg Take 0.5 Uni vers 0.5 mg 2-20 mg by ity of tablet 13:22: mouth at [place] [address] bedtime. Medical Branch clonazePAM 2020-0 Yes .5mg Take 0.5 Uni vers 0.5 mg 2-20 mg by ity of tablet 13:22: mouth at [place] [address] bedtime. Medical Branch clonazePAM 2020-0 Yes .5mg Take 0.5 Uni vers 0.5 mg 2-20 mg by ity of tablet 13:22: mouth at [place] [address] bedtime. Medical Branch clonazePAM 2020-0 Yes .5mg Take 0.5 Uni vers 0.5 mg 2-20 mg by ity of tablet 13:22: mouth at [place] [address] bedtime. Medical Branch verapamil 2020-0 Yes 120mg Take 120 Uni vers (VERELAN 2-19 mg by ity of PM) 120 mg 23:24: mouth at [place] as 24 hr 51 bedtime. Medical capsule Branch metFORMIN 2020-0 Yes 500mg Take 500 Uni vers 500 mg 2-19 mg by ity of tablet 23:24: mouth 2 [place] [address] (two) Medical times Branch daily with meals. rOPINIRole 2020-0 Yes 2mg Take 2 mg [place] 2 mg tablet 2-19 by mouth ity of 23:24: at [place] [address] bedtime. Medical Branch venlafaxine 2020-0 Yes 150mg Take 150 U nivers XR 150 mg 2-19 mg by ity of 24 hr 23:24: mouth [place] capsule daily with Medica l breakfast. Branch clonazePAM 2020-0 Yes .5mg Take 0.5 Uni vers 0.5 mg 2-19 mg by ity of tablet 23:24: mouth at [place] [address] bedtime. Medical Branch pantoprazol 2020-0 Yes 40mg Take 40 mg Univers e 40 mg EC 2-19 by mouth ity o f tablet 23:24: daily. [place] [address] Medical Branch amitriptyli 2020-0 Yes 75mg Take 75 mg Univers ne 75 mg 2-19 by mouth ity of tablet 23:24: at [place] [address] bedtime. Medical Branch acetaminoph 2020-0 Yes [id number] 2{tbl} Take 2 Univers en-codeine 2-19 05 tablets by ity of (TYLENOL-CO 00:00: mouth [place] DEINE #3) 00 every 4 Medical 300-30 mg (four) Branch tablet hours as needed for Pain (scale 4-6) or Pain (scale 7-10) (Maximum 10 tablets a day). acetaminoph 2020-0 Yes [id number] 2{tbl} Take 2 Univers en-codeine 2-19 05 tablets by ity of (TYLENOL-CO 00:00: mouth [place] DEINE #3) 00 every 4 Medical 300-30 mg (four) Branch tablet hours as needed for Pain (scale 4-6) or Pain (scale 7-10) (Maximum 10 tablets a day). acetaminoph 2020-0 Yes [id number] 2{tbl} Take 2 Univers en-codeine 2-19 05 tablets by ity of (TYLENOL-CO 00:00: mouth [place] DEINE #3) 00 every 4 Medical 300-30 mg (four) Branch tablet hours as needed for Pain (scale 4-6) or Pain (scale 7-10) (Maximum 10 tablets a day). acetaminoph 2020-0 Yes [id number] 2{tbl} Take 2 Univers en-codeine 2-19 05 tablets by ity of (TYLENOL-CO 00:00: mouth [place] DEINE #3) 00 every 4 Medical 300-30 mg (four) Branch tablet hours as needed for Pain (scale 4-6) or Pain (scale 7-10) (Maximum 10 tablets a day). acetaminoph 2020-0 Yes [id number] 2{tbl} Take 2 Univers en-codeine 2-19 05 tablets by ity of (TYLENOL-CO 00:00: mouth [place] DEINE #3) 00 every 4 Medical 300-30 mg (four) Branch tablet hours as needed for Pain (scale 4-6) or Pain (scale 7-10) (Maximum 10 tablets a day). acetaminoph 2020-0 Yes [id number] 2{tbl} Take 2 Univers en-codeine 2-19 05 tablets by ity of (TYLENOL-CO 00:00: mouth [place] DEINE #3) 00 every 4 Medical 300-30 mg (four) Branch tablet hours as needed for Pain (scale 4-6) or Pain (scale 7-10) (Maximum 10 tablets a day). acetaminoph 2020-0 Yes [id number] 2{tbl} Take 2 [facility] en-codeine 2-19 05 tablets by ity of (TYLENOL-CO 00:00: mouth [place] DEINE #3) 00 every 4 Medical 300-30 mg (four) Branch tablet hours as needed for Pain (scale 4-6) or Pain (scale 7-10) (Maximum 10 tablets a day). acetaminoph 2020-0 Yes [id number] 2{tbl} Take 2 Univers en-codeine 2-19 05 tablets by ity of (TYLENOL-CO 00:00: mouth [place] DEINE #3) 00 every 4 Medical 300-30 mg (four) Branch tablet hours as needed for Pain (scale 4-6) or Pain (scale 7-10) (Maximum 10 tablets a day). acetaminoph 2020-0 Yes [id number] 2{tbl} Take 2 [facility] en-codeine 2-19 05 tablets by ity of (TYLENOL-CO 00:00: mouth [place] DEINE #3) 00 every 4 Medical 300-30 mg (four) Branch tablet hours as needed for Pain (scale 4-6) or Pain (scale 7-10) (Maximum 10 tablets a day). acetaminoph 2020-0 Yes [id number] 2{tbl} Take 2 Univers en-codeine 2-19 05 tablets by ity of (TYLENOL-CO 00:00: mouth [place] DEINE #3) 00 every 4 Medical 300-30 mg (four) Branch tablet hours as needed for Pain (scale 4-6) or Pain (scale 7-10) (Maximum 10 tablets a day). acetaminoph 2020-0 Yes [id number] 2{tbl} Take 2 [facility] en-codeine 2-19 05 tablets by ity of (TYLENOL-CO 00:00: mouth [place] DEINE #3) 00 every 4 Medical 300-30 mg (four) Branch tablet hours as needed for Pain (scale 4-6) or Pain (scale 7-10) (Maximum 10 tablets a day). acetaminoph 2020-0 Yes [id number] 2{tbl} Take 2 Univers en-codeine 2-19 05 tablets by ity of (TYLENOL-CO 00:00: mouth [place] DEINE #3) 00 every 4 Medical 300-30 mg (four) Branch tablet hours as needed for Pain (scale 4-6) or Pain (scale 7-10) (Maximum 10 tablets a day). acetaminoph 2020-0 Yes [id number] 2{tbl} Take 2 [facility] en-codeine 2-19 05 tablets by ity of (TYLENOL-CO 00:00: mouth [place] DEINE #3) 00 every 4 Medical 300-30 mg (four) Branch tablet hours as needed for Pain (scale 4-6) or Pain (scale 7-10) (Maximum 10 tablets a day). acetaminoph 2020-0 Yes [id number] 2{tbl} Take 2 [facility] en-codeine 2-19 05 tablets by ity of (TYLENOL-CO 00:00: mouth [place] DEINE #3) 00 every 4 Medical 300-30 mg (four) Branch tablet hours as needed for Pain (scale 4-6) or Pain (scale 7-10) (Maximum 10 tablets a day). acetaminoph 2020-0 Yes [id number] 2{tbl} Take 2 [facility] en-codeine 2-19 05 tablets by ity of (TYLENOL-CO 00:00: mouth [place] DEINE #3) 00 every 4 Medical 300-30 mg (four) Branch tablet hours as needed for Pain (scale 4-6) or Pain (scale 7-10) (Maximum 10 tablets a day). acetaminoph 2020-0 Yes [id number] 2{tbl} Take 2 [facility] en-codeine 2-19 05 tablets by ity of (TYLENOL-CO 00:00: mouth [place] DEINE #3) 00 every 4 Medical 300-30 mg (four) Branch tablet hours as needed for Pain (scale 4-6) or Pain (scale 7-10) (Maximum 10 tablets a day). acetaminoph 2020-0 Yes [id number] 2{tbl} Take 2 [facility] en-codeine 2-19 05 tablets by ity of (TYLENOL-CO 00:00: mouth [place] DEINE #3) 00 every 4 Medical 300-30 mg (four) Branch tablet hours as needed for Pain (scale 4-6) or Pain (scale 7-10) (Maximum 10 tablets a day). acetaminoph 2020-0 Yes [id number] 2{tbl} Take 2 [facility] en-codeine 2-19 05 tablets by ity of (TYLENOL-CO 00:00: mouth [place] DEINE #3) 00 every 4 Medical 300-30 mg (four) Branch tablet hours as needed for Pain (scale 4-6) or Pain (scale 7-10) (Maximum 10 tablets a day). acetaminoph 2020-0 Yes [id number] 2{tbl} Take 2 [facility] en-codeine 2-19 05 tablets by ity of (TYLENOL-CO 00:00: mouth [place] DEINE #3) 00 every 4 Medical 300-30 mg (four) Branch tablet hours as needed for Pain (scale 4-6) or Pain (scale 7-10) (Maximum 10 tablets a day). acetaminoph 2020-0 Yes [id number] 2{tbl} Take 2 [facility] en-codeine 2-19 05 tablets by ity of (TYLENOL-CO 00:00: mouth [place] DEINE #3) 00 every 4 Medical 300-30 mg (four) Branch tablet hours as needed for Pain (scale 4-6) or Pain (scale 7-10) (Maximum 10 tablets a day). acetaminoph 2020-0 Yes [id number] 2{tbl} Take 2 [facility] en-codeine 2-19 05 tablets by ity of (TYLENOL-CO 00:00: mouth [place] DEINE #3) 00 every 4 Medical 300-30 mg (four) Branch tablet hours as needed for Pain (scale 4-6) or Pain (scale 7-10) (Maximum 10 tablets a day). acetaminoph 2020-0 Yes [id number] 2{tbl} Take 2 [facility] en-codeine 2-19 05 tablets by ity of (TYLENOL-CO 00:00: mouth [place] DEINE #3) 00 every 4 Medical 300-30 mg (four) Branch tablet hours as needed for Pain (scale 4-6) or Pain (scale 7-10) (Maximum 10 tablets a day). acetaminoph 2020-0 Yes [id number] 2{tbl} Take 2 [facility] en-codeine 2-19 05 tablets by ity of (TYLENOL-CO 00:00: mouth [place] DEINE #3) 00 every 4 Medical 300-30 mg (four) Branch tablet hours as needed for Pain (scale 4-6) or Pain (scale 7-10) (Maximum 10 tablets a day). acetaminoph 2020-0 Yes [id number] 2{tbl} Take 2 [facility] en-codeine 2-19 05 tablets by ity of (TYLENOL-CO 00:00: mouth [place] DEINE #3) 00 every 4 Medical 300-30 mg (four) Branch tablet hours as needed for Pain (scale 4-6) or Pain (scale 7-10) (Maximum 10 tablets a day). acetaminoph 2020-0 Yes [id number] 2{tbl} Take 2 [facility] en-codeine 2-19 05 tablets by ity of (TYLENOL-CO 00:00: mouth [place] DEINE #3) 00 every 4 Medical 300-30 mg (four) Branch tablet hours as needed for Pain (scale 4-6) or Pain (scale 7-10) (Maximum 10 tablets a day). acetaminoph 2020-0 Yes [id number] 2{tbl} Take 2 [facility] en-codeine 2-19 05 tablets by ity of (TYLENOL-CO 00:00: mouth [place] DEINE #3) 00 every 4 Medical 300-30 mg (four) Branch tablet hours as needed for Pain (scale 4-6) or Pain (scale 7-10) (Maximum 10 tablets a day). acetaminoph 2020-0 Yes [id number] 2{tbl} Take 2 [facility] en-codeine 2-19 05 tablets by ity of (TYLENOL-CO 00:00: mouth [place] DEINE #3) 00 every 4 Medical 300-30 mg (four) Branch tablet hours as needed for Pain (scale 4-6) or Pain (scale 7-10) (Maximum 10 tablets a day). acetaminoph 2020-0 Yes [id number] 2{tbl} Take 2 [facility] en-codeine 2-19 05 tablets by ity of (TYLENOL-CO 00:00: mouth [place] DEINE #3) 00 every 4 Medical 300-30 mg (four) Branch tablet hours as needed for Pain (scale 4-6) or Pain (scale 7-10) (Maximum 10 tablets a day). acetaminoph 2020-0 Yes [id number] 2{tbl} Take 2 [facility] en-codeine 2-19 05 tablets by ity of (TYLENOL-CO 00:00: mouth [place] DEINE #3) 00 every 4 Medical 300-30 mg (four) Branch tablet hours as needed for Pain (scale 4-6) or Pain (scale 7-10) (Maximum 10 tablets a day). acetaminoph 2020-0 Yes [id number] 2{tbl} Take 2 [facility] en-codeine 2-19 05 tablets by ity of (TYLENOL-CO 00:00: mouth [place] DEINE #3) 00 every 4 Medical 300-30 mg (four) Branch tablet hours as needed for Pain (scale 4-6) or Pain (scale 7-10) (Maximum 10 tablets a day). acetaminoph 2020-0 Yes [id number] 2{tbl} Take 2 [facility] en-codeine 2-19 05 tablets by ity of (TYLENOL-CO 00:00: mouth [place] DEINE #3) 00 every 4 Medical 300-30 mg (four) Branch tablet hours as needed for Pain (scale 4-6) or Pain (scale 7-10) (Maximum 10 tablets a day). acetaminoph 2020-0 Yes [id number] 2{tbl} Take 2 [facility] en-codeine 2-19 05 tablets by ity of (TYLENOL-CO 00:00: mouth [place] DEINE #3) 00 every 4 Medical 300-30 mg (four) Branch tablet hours as needed for Pain (scale 4-6) or Pain (scale 7-10) (Maximum 10 tablets a day). acetaminoph 2020-0 Yes [id number] 2{tbl} Take 2 [facility] en-codeine 2-19 05 tablets by ity of (TYLENOL-CO 00:00: mouth [place] DEINE #3) 00 every 4 Medical 300-30 mg (four) Branch tablet hours as needed for Pain (scale 4-6) or Pain (scale 7-10) (Maximum 10 tablets a day). acetaminoph 2020-0 Yes [id number] 2{tbl} Take 2 [facility] en-codeine 2-19 05 tablets by ity of (TYLENOL-CO 00:00: mouth [place] DEINE #3) 00 every 4 Medical 300-30 mg (four) Branch tablet hours as needed for Pain (scale 4-6) or Pain (scale 7-10) (Maximum 10 tablets a day). acetaminoph 2020-0 Yes [id number] 2{tbl} Take 2 [facility] en-codeine 2-19 05 tablets by ity of (TYLENOL-CO 00:00: mouth [place] DEINE #3) 00 every 4 Medical 300-30 mg (four) Branch tablet hours as needed for Pain (scale 4-6) or Pain (scale 7-10) (Maximum 10 tablets a day). acetaminoph 2020-0 Yes [id number] 2{tbl} Take 2 [facility] en-codeine 2-19 05 tablets by ity of (TYLENOL-CO 00:00: mouth [place] DEINE #3) 00 every 4 Medical 300-30 mg (four) Branch tablet hours as needed for Pain (scale 4-6) or Pain (scale 7-10) (Maximum 10 tablets a day). acetaminoph 2020-0 Yes [id number] 2{tbl} Take 2 [facility] en-codeine 2-19 05 tablets by ity of (TYLENOL-CO 00:00: mouth [place] DEINE #3) 00 every 4 Medical 300-30 mg (four) Branch tablet hours as needed for Pain (scale 4-6) or Pain (scale 7-10) (Maximum 10 tablets a day). acetaminoph 2020-0 Yes [id number] 2{tbl} Take 2 [facility] en-codeine 2-19 05 tablets by ity of (TYLENOL-CO 00:00: mouth [place] DEINE #3) 00 every 4 Medical 300-30 mg (four) Branch tablet hours as needed for Pain (scale 4-6) or Pain (scale 7-10) (Maximum 10 tablets a day). acetaminoph 2020-0 Yes [id number] 2{tbl} Take 2 [facility] en-codeine 2-19 05 tablets by ity of (TYLENOL-CO 00:00: mouth [place] DEINE #3) 00 every 4 Medical 300-30 mg (four) Branch tablet hours as needed for Pain (scale 4-6) or Pain (scale 7-10) (Maximum 10 tablets a day). acetaminoph 2020-0 Yes [id number] 2{tbl} Take 2 [facility] en-codeine 2-19 05 tablets by ity of (TYLENOL-CO 00:00: mouth [place] DEINE #3) 00 every 4 Medical 300-30 mg (four) Branch tablet hours as needed for Pain (scale 4-6) or Pain (scale 7-10) (Maximum 10 tablets a day). acetaminoph 2020-0 Yes [id number] 2{tbl} Take 2 [facility] en-codeine 2-19 05 tablets by ity of (TYLENOL-CO 00:00: mouth [place] DEINE #3) 00 every 4 Medical 300-30 mg (four) Branch tablet hours as needed for Pain (scale 4-6) or Pain (scale 7-10) (Maximum 10 tablets a day). acetaminoph 2020-0 Yes [id number] 2{tbl} Take 2 [facility] en-codeine 2-19 05 tablets by ity of (TYLENOL-CO 00:00: mouth [place] DEINE #3) 00 every 4 Medical 300-30 mg (four) Branch tablet hours as needed for Pain (scale 4-6) or Pain (scale 7-10) (Maximum 10 tablets a day). acetaminoph 2020-0 Yes [id number] 2{tbl} Take 2 [facility] en-codeine 2-19 05 tablets by ity of (TYLENOL-CO 00:00: mouth [place] DEINE #3) 00 every 4 Medical 300-30 mg (four) Branch tablet hours as needed for Pain (scale 4-6) or Pain (scale 7-10) (Maximum 10 tablets a day). acetaminoph 2020-0 Yes [id number] 2{tbl} Take 2 [facility] en-codeine 2-19 05 tablets by ity of (TYLENOL-CO 00:00: mouth [place] DEINE #3) 00 every 4 Medical 300-30 mg (four) Branch tablet hours as needed for Pain (scale 4-6) or Pain (scale 7-10) (Maximum 10 tablets a day). acetaminoph 2020-0 Yes [id number] 2{tbl} Take 2 [facility] en-codeine 2-19 05 tablets by ity of (TYLENOL-CO 00:00: mouth [place] DEINE #3) 00 every 4 Medical 300-30 mg (four) Branch tablet hours as needed for Pain (scale 4-6) or Pain (scale 7-10) (Maximum 10 tablets a day). acetaminoph 2020-0 Yes [id number] 2{tbl} Take 2 [facility] en-codeine 2-19 05 tablets by ity of (TYLENOL-CO 00:00: mouth [place] DEINE #3) 00 every 4 Medical 300-30 mg (four) Branch tablet hours as needed for Pain (scale 4-6) or Pain (scale 7-10) (Maximum 10 tablets a day). acetaminoph 2020-0 Yes [id number] 2{tbl} Take 2 [facility] en-codeine 2-19 05 tablets by ity of (TYLENOL-CO 00:00: mouth [place] DEINE #3) 00 every 4 Medical 300-30 mg (four) Branch tablet hours as needed for Pain (scale 4-6) or Pain (scale 7-10) (Maximum 10 tablets a day). acetaminoph 2020-0 Yes [id number] 2{tbl} Take 2 [facility] en-codeine 2-19 05 tablets by ity of (TYLENOL-CO 00:00: mouth [place] DEINE #3) 00 every 4 Medical 300-30 mg (four) Branch tablet hours as needed for Pain (scale 4-6) or Pain (scale 7-10) (Maximum 10 tablets a day). acetaminoph 2020-0 Yes [id number] 2{tbl} Take 2 [facility] en-codeine 2-19 05 tablets by ity of (TYLENOL-CO 00:00: mouth [place] DEINE #3) 00 every 4 Medical 300-30 mg (four) Branch tablet hours as needed for Pain (scale 4-6) or Pain (scale 7-10) (Maximum 10 tablets a day). acetaminoph 2020-0 Yes [id number] 2{tbl} Take 2 [facility] en-codeine 2-19 05 tablets by ity of (TYLENOL-CO 00:00: mouth [place] DEINE #3) 00 every 4 Medical 300-30 mg (four) Branch tablet hours as needed for Pain (scale 4-6) or Pain (scale 7-10) (Maximum 10 tablets a day). acetaminoph 2020-0 Yes [id number] 2{tbl} Take 2 [facility] en-codeine 2-19 05 tablets by ity of (TYLENOL-CO 00:00: mouth [place] DEINE #3) 00 every 4 Medical 300-30 mg (four) Branch tablet hours as needed for Pain (scale 4-6) or Pain (scale 7-10) (Maximum 10 tablets a day). acetaminoph 2020-0 Yes [id number] 2{tbl} Take 2 [facility] en-codeine 2-19 05 tablets by ity of (TYLENOL-CO 00:00: mouth [place] DEINE #3) 00 every 4 Medical 300-30 mg (four) Branch tablet hours as needed for Pain (scale 4-6) or Pain (scale 7-10) (Maximum 10 tablets a day). acetaminoph 2020-0 Yes [id number] 2{tbl} Take 2 [facility] en-codeine 2-19 05 tablets by ity of (TYLENOL-CO 00:00: mouth [place] DEINE #3) 00 every 4 Medical 300-30 mg (four) Branch tablet hours as needed for Pain (scale 4-6) or Pain (scale 7-10) (Maximum 10 tablets a day). acetaminoph 2020-0 Yes [id number] 2{tbl} Take 2 Univers en-codeine 2-19 05 tablets by ity of (TYLENOL-CO 00:00: mouth [place] DEINE #3) 00 every 4 Medical 300-30 mg (four) Branch tablet hours as needed for Pain (scale 4-6) or Pain (scale 7-10) (Maximum 10 tablets a day). acetaminoph 2020-0 Yes [id number] 2{tbl} Take 2 Univers en-codeine 2-19 05 tablets by ity of (TYLENOL-CO 00:00: mouth [place] DEINE #3) 00 every 4 Medical 300-30 mg (four) Branch tablet hours as needed for Pain (scale 4-6) or Pain (scale 7-10) (Maximum 10 tablets a day). acetaminoph 2020-0 Yes [id number] 2{tbl} Take 2 Univers en-codeine 2-19 05 tablets by ity of (TYLENOL-CO 00:00: mouth [place] DEINE #3) 00 every 4 Medical 300-30 mg (four) Branch tablet hours as needed for Pain (scale 4-6) or Pain (scale 7-10) (Maximum 10 tablets a day). acetaminoph 2020-0 Yes [id number] 2{tbl} Take 2 Univers en-codeine 2-19 05 tablets by ity of (TYLENOL-CO 00:00: mouth [place] DEINE #3) 00 every 4 Medical 300-30 mg (four) Branch tablet hours as needed for Pain (scale 4-6) or Pain (scale 7-10) (Maximum 10 tablets a day). acetaminoph 2020-0 Yes [id number] 2{tbl} Take 2 Univers en-codeine 2-19 05 tablets by ity of (TYLENOL-CO 00:00: mouth [place] DEINE #3) 00 every 4 Medical 300-30 mg (four) Branch tablet hours as needed for Pain (scale 4-6) or Pain (scale 7-10) (Maximum 10 tablets a day). acetaminoph 2020-0 Yes [id number] 2{tbl} Take 2 Univers en-codeine 2-19 05 tablets by ity of (TYLENOL-CO 00:00: mouth [place] DEINE #3) 00 every 4 Medical 300-30 mg (four) Branch tablet hours as needed for Pain (scale 4-6) or Pain (scale 7-10) (Maximum 10 tablets a day). acetaminoph 2019- Yes [id number] 2{tbl} Take 2 Univers en-codeine 2-19 05 tablets by ity of (TYLENOL-CO 00:00: mouth [place] DEINE #3) 00 every 4 Medical 300-30 mg (four) Branch tablet hours as needed for Pain (scale 4-6) or Pain (scale 7-10) (Maximum 10 tablets a day). rivaroxaban 2019- 2020- No 1481 10mg Take 1 Uni vers (XARELTO) 12-11 tablet by ity of tablet 00:00: 05:59 mouth [place] 00 :00 daily for Medical 10 days. Branch Indication s: deep vein thrombosis prevention in knee replacemen t rivaroxaban 2019-2019- No 1481 10mg Take 1 Uni vers (XARELTO) 12-11 tablet by ity of tablet 00:00: 05:59 mouth [place] 00 :00 daily for Medical 10 days. Branch Indication s: deep vein thrombosis prevention in knee replacemen t rivaroxaban 2019-2019- No 1481 10mg Take 1 Uni vers (XARELTO) 12-11 tablet by ity of tablet 00:00: 05:59 mouth [place] 00 :00 daily for Medical 10 days. Branch Indication s: deep vein thrombosis prevention in knee replacemen t rivaroxaban 2019-2019- No 1481 10mg Take 1 Uni vers [...] 00 First dose Med ical mg on [facility] 12/10/19 at 0900, Until Discontinu ed spironolact 2020-0 Yes 25mg 25 mg, Univ ers one 2-18 Oral, ity of (ALDACTONE) 15:00: DAILY, [place] tablet 25 00 First dose Medi mac mg on [facility] 12/10/19 at 0900, Until Discontinu ed, Routine pantoprazol 2020-0 Yes 40mg 40 mg, Univ ers e 2-18 Oral, ity of (PROTONIX) 15:00: DAILY, [place] EC tablet 00 First dose Medi mac 40 mg on [facility] 12/10/19 at 0900, Until Discontinu ed, Routine methocarbam 2020-0 Yes 750mg 750 mg, Un edmond ol 2-18 Oral, ity of (ROBAXIN) 15:00: DAILY, [place] tablet 750 00 First dose Med ical mg on [facility] 12/10/19 at 0900, Until Discontinu ed, Routine losartan 2020-0 Yes 100mg 100 mg, Unive rs (COZAAR) 2-18 Oral, ity of tablet 100 15:00: DAILY, [place] mg 00 First dose Medical on [facility] 12/10/19 at 0900, Until Discontinu ed, Routine atorvastati 2020-0 Yes 20mg 20 mg, Univ ers n (LIPITOR) 2-18 Oral, ity of tablet 20 15:00: DAILY, [place] mg 00 First dose Medical on [facility] 12/10/19 at 0900, Until Discontinu ed, Routine venlafaxine 2020-0 Yes 150mg 150 mg, Un [place] XR (EFFEXOR 2-18 Oral, QAM ity of XR) 24 hr 14:00: WITH [place] capsule 150 00 BREAKFAST, Me dical mg First dose Branch on [facility] 12/10/19 at 0800, Until Discontinu ed, Routine enoxaparin [...] 00 First dose Med ical mcg on Mon12/10/19 at 0600, Until Discontinu ed, Routine SERTraline 2020-0 Yes 50mg 50 mg, Unive rs (ZOLOFT) 2-18 Oral, QHS, ity o f tablet 50 03:00: First dose [place] mg 00 on [facility] 12/09/19 at Branch 2100, Until Discontinu ed, Routine clonazePAM 2020-0 Yes .5mg 0.5 mg, Univ ers (KLONOPIN) 2-18 Oral, QHS, ity of tablet 0.5 03:00: First dose [place] mg 00 on [facility] 12/09/19 at Branch 2100, Until Discontinu ed, Routine amitriptyli 2020-0 Yes 75mg 75 mg, Univ ers ne (ELAVIL) 2-18 Oral, QHS, it y of tablet 75 03:00: First dose [place] mg 00 on [facility] 12/09/19 at Branch 2100, Until Discontinu ed, Routine docusate 2020-0 Yes 100mg 100 mg, Unive rs (COLACE) 2-18 Oral, ity of capsule 100 02:00: Q12H, [place] mg 00 First dose Medical on [facility] 12/09/19 at 2000, Until Discontinu ed, Routine pramipexole 2020-0 Yes .25mg 0.25 mg, U nivers (MIRAPEX) 2-18 Oral, BID, ity of tablet 0.25 02:00: First dose [place] mg 00 on [facility] 12/09/19 at Branch 2000, Until Discontinu ed
Facu lty member approving Restricted medication : SORADC Sliding 2020-0 Yes Subcutaneo Univ ers Scale 2-17 us, TID ity of Insulin - 23:00: MEALS+HS, [place] as Aspart 00 First dose Medical (NOVOLOG) + on Mon Branch [facility] 12/09/19 at Testing 1700, Until Discontinu ed, Routine venlafaxine 2019-0 Yes 75mg 75 mg, [facility] ers XR (EFFEXOR 2-17 Oral, QPM, it y of XR) 24 hr 23:00: First dose [place] capsule 75 00 on Mon Medical mg 12/09/19 at Branch 1700, Until Discontinu ed, Routine predniSONE 2019-2019- No 40mg 40 mg, [facility] [place] [facility] (DELTASONE) 12-09 Oral, ONCE i ty of tablet 40 19:15: 18:31 NOW, 1 [place] mg 00 :00 dose, [facility] 12/09/19 at Branch 1315, Routine famotidine 2019-2019- No 20mg 20 mg, [facility] [place] [facility] (PEPCID AC) 12-09 Oral, ONCE i ty of tablet 20 19:15: 18:31 NOW, 1 [place] mg 00 :00 dose, [facility] 12/09/19 at Branch 1315, Routine diphenhydrA 2019- Yes 50mg 50 mg, [facility] [place] [facility] MINE 12-09 Oral, ity of (BENADRYL) 18:06: Q6HPRN, [place] tablet 50 29 Starting Medica l mg [facility] 12/09/19 at 1206, Until Discontinu ed, Routine, Itching diphenhydrA 2019- No 25mg 25 mg, Uni vers MINE 12-09 Slow IV ity of (BENADRYL) 17:30: 17:00 Push, [place] injection 00 :00 ONCE, 1 Medical 25 mg dose, [facility] 12/09/19 at 1130, Routine, PACU morpHINE 30 2019-0 2019- No Unive rs mg/30 mL 12-09 ity of (fixed 16:44: 23:15 [place] dose) DIRECTOR RECREATION 17 :34 Medical injection Branch lactated 2019- 2020- No 1000mL at 100 [facility] ers ringers IV 12-09 mL/hr, ity of infusion 16:30: 13:06 1,000 mL, [place] 1,000 mL 00 :24 IV Medical Infusion, Branch CONTINUOUS , Starting 12/09/19 at 1030, Until 12/11/19 at 0706, Routine, PACU dexamethaso 2019-0 2020- No ONCE INTRA Univers ne sod phos 12-09 PROCEDURE, i ty of PF 16:25: 21:32 Starting [place] injection 00 :13 Mon Medical 12/09/19 at [place] [id number], Until 12/09/19 at 1532, Routine, Intra-op ropivacaine 2020-0 2020- No ONCE INTRA Univers 0.5 % 12-09 PROCEDURE, ity of (NAROPIN 16:25: 21:31 [place] (PF)) 00 :44 Mon Medical injection 12/09/19 at [facility] 1025, Until 12/09/19 at 1531, Routine, Intra-op ropivacaine 2020-0 2020- No ONCE INTRA Univers 0.2 % 12-09 PROCEDURE, ity of (NAROPIN 16:25: 16:27 [place] (PF)) 00 :56 Mon Medical epidural 12/09/19 at [facility] h infusion 1025, Until 12/09/19 at 1027, Routine, Intra-op dexamethaso 2020-0 2020- No ONCE INTRA Univers ne sod phos 12-09 PROCEDURE, i ty of PF 16:25: 21:32 Starting [place] injection 00 :13 Mon Medical 12/09/19 at [place] 1025, Until 12/09/19 at 1532, Routine, Intra-op ropivacaine 2020-0 2020- No ONCE INTRA Univers 0.5 % 12-09 PROCEDURE, ity of (NAROPIN 16:25: 21:31 [place] (PF)) 00 :44 Mon Medical injection 12/09/19 at [facility] 1025, Until 12/09/19 at 1531, Routine, Intra-op ropivacaine 2020-0 2020- No ONCE INTRA Univers 0.2 % 12-09 PROCEDURE, ity of (NAROPIN 16:25: 16:27 [place] (PF)) 00 :56 Mon Medical epidural 12/09/19 at [facility] h infusion 1025, Until 12/09/19 at 1027, Routine, Intra-op verapamil 2020-0 Yes 120mg Take 120 Uni vers (VERELAN 2-17 mg by ity of PM) 120 mg 15:47: mouth at [facility] as 24 hr 19 bedtime. Medical capsule [place] metFORMIN 2020-0 Yes 500mg Take 500 Uni vers 500 mg 2-17 mg by ity of tablet 15:47: mouth 2 [place] 19 (two) Medical times Branch daily with meals. rOPINIRole 2020-0 Yes 2mg Take 2 mg [place] 2 mg tablet 2-17 by mouth ity of 15:47: at [place] [address] bedtime. Medical Branch venlafaxine 2020-0 Yes 150mg Take 150 U nivers XR 150 mg 2-17 mg by ity of 24 hr 15:47: mouth [place] capsule 19 daily with Medica l breakfast. Branch clonazePAM 2020-0 Yes .5mg Take 0.5 Uni vers 0.5 mg 2-17 mg by ity of tablet 15:47: mouth at [place] [address] bedtime. Medical Branch pantoprazol 2020-0 Yes 40mg Take 40 mg Univers e 40 mg EC 2-17 by mouth ity o f tablet 15:47: daily. [place] [address] Medical Branch amitriptyli 2020-0 Yes 75mg Take 75 mg Univers ne 75 mg 2-17 by mouth ity of tablet 15:47: at [place] [address] bedtime. Medical Branch naloxone 2020-0 Yes .4mg 0.4 mg, Univer s (NARCAN) 2-17 Slow IV ity of injection 15:44: Push, [place] 0.4 mg 34 SEE-INSTRU Medical [facility] Starting 12/09/19 at 0944, Until Discontinu ed, Routine HYDROcodone 2020-0 Yes 1{tbl} 1 tablet, Univers -acetaminop 2-17 Oral, ity of hen (NORCO) 15:44: Q4HPRN, [place] 10-325 mg 10 Starting Medica l tablet 1 Mon [place] tablet 12/09/19 at 0944, Until Discontinu ed, Routine, Pain (scale 7-10) HYDROcodone 2020-0 Yes 1{tbl} 1 tablet, Univers -acetaminop 2-17 Oral, ity of hen (NORCO 15:44: Q6HPRN, [place] 5) 5-325 mg 07 Starting Medi mac tablet 1 Mon [place] tablet 12/09/19 at 0944, Until Discontinu ed, [...] g dose, Starting 12/09/19 at 0930, Until Mon12/09/19 at 0822, 100 mL, DSU Pre-op
Reason [...] g dose, Starting 12/09/19 at 0930, Until Mon12/09/19 at 0822, 100 mL, DSU Pre-op
Reason [...] 2020-0 2020- No ONCE INTRA Univers (APRESOLINE -12-09 PROCEDURE, i ty of ) injection 15:04: 16:27 Starting [place] 00 :56 Mon Medical 12/09/19 at Branch 0904, Until Mon12/09/19 at 1027, Routine, Intra-op lactated 2020-0 Yes 1000mL at 100 Unive rs ringers IV 2-17 mL/hr, ity of infusion 15:00: 1,000 mL, [place] 1,000 mL 00 IV Medical Infusion, Branch CONTINUOUS , Starting Mon12/09/19 at 0900, Until Discontinu ed, Routine HYDROmorphO 2020-0 2020- No ONCE INTRA Univers ne 12-09 PROCEDURE, ity of (DILAUDID) 14:56: 16:27 Starting [place] injection 00 :56 Mon Medical 12/09/19 at Branch 0856, Until Mon12/09/19 at 1027, Routine, Intra-op diphenhydrA 2020-0 2020- No ONCE INTRA Univers MINE 12-09 PROCEDURE, ity of (BENADRYL) 14:56: 16:27 Starting [place] injection 00 :56 Mon Medical 12/09/19 at Branch 0856, Until Mon12/09/19 at 1027, Routine, Intra-op HYDROmorphO 2020-0 2020- No ONCE INTRA Univers ne 12-09 PROCEDURE, ity of (DILAUDID) 14:56: 16:27 Starting [place] injection 00 :56 Mon Medical 12/09/19 at Branch 0856, Until Mon12/09/19 at 1027, Routine, Intra-op diphenhydrA 2020-0 2020- No ONCE INTRA Univers MINE 12-09 PROCEDURE, ity of (BENADRYL) 14:56: 16:27 Starting [place] injection 00 :56 Mon Medical 12/09/19 at Branch 0856, Until Mon12/09/19 at 1027, Routine, Intra-op ondansetron 2020-0 2020- No ONCE INTRA Univers (ZOFRAN 12-09 PROCEDURE, ity o f (PF)) 14:53: 16:27 Starting [place] injection 00 :56 Mon Medical 12/09/19 at Branch 0853, Until Mon12/09/19 at 1027, Routine, Intra-op ondansetron 2020-0 2020- No ONCE INTRA Univers (ZOFRAN 12-09 PROCEDURE, ity o f (PF)) 14:53: 16:27 Starting [place] injection 00 :56 Mon Medical 12/09/19 at Branch 08, Until Mon12/09/19 at 1027, Routine, Intra-op FENTanyl PF 2020-0 2020- No ONCE INTRA Univers (SUBLIMAZE 12-09 PROCEDURE, it y of (PF)) 14:52: 16:27 Starting [place] injection 00 :56 [facility] 12/09/19 at Branch 0852, Until Mon12/09/19 at 1027, Routine, Intra-op FENTanyl PF 2020-0 2020- No ONCE INTRA Univers (SUBLIMAZE 12-09 PROCEDURE, it y of (PF)) 14:52: 16:27 Starting [place] injection 00 :56 [facility] 12/09/19 at Branch 0852, Until 12/09/19 at 1027, Routine, Intra-op propofol IV 2020-0 2020- No Intravenou Univers infusion 12-09 s, ONCE ity of 14:22: 16:27 INTRA [place] 00 :56 PROCEDURE, Medical Starting Branch [facility] 12/09/19 at 0822, Until Mon12/09/19 at 1027, Routine, Intra-op lidocaine 2020-0 2020- No ONCE INTRA U nivers 1% 12-09 PROCEDURE, ity of (XYLOCAINE) 14:22: 16:27 Starting [place] 100 mg/10 00 :56 [facility] mL (1 %) 12/09/19 at [facility] h injection 0822, Until Mon12/09/19 at 1027, Routine, Intra-op propofol IV 2020-0 2020- No Intravenou Univers infusion 12-09 s, ONCE ity of 14:22: 16:27 INTRA [place] 00 :56 PROCEDURE, Medical Starting Branch [facility] 12/09/19 at 0822, Until Mon12/09/19 at 1027, Routine, Intra-op lidocaine 2020-0 2020- No ONCE INTRA U nivers 1% 12-09 PROCEDURE, ity of (XYLOCAINE) 14:22: 16:27 [place] 100 mg/10 00 :56 Mon Medical mL (1 %) 12/09/19 at [facility] h injection 0822, Until Mon12/09/19 at 1027, Routine, Intra-op midazolam 2020-0 2020- No ONCE INTRA U nivers (VERSED) 12-09 PROCEDURE, ity of injection 14:12: 16:27 Starting [place] 00 :56 [facility] 2/17/20 at Branch 0812, Until 12/09/19 at 1027, Routine, Intra-op midazolam 2019-0 2020- No ONCE INTRA U nivers (VERSED) 12-09 PROCEDURE, ity of injection 14:12: 16:27 Starting [place] 00 :56 Mon Medical 12/09/19 at Branch 0812, Until 12/09/19 at 1027, Routine, Intra-op gabapentin 2019-2019- No 300mg 300 mg, [place] (NEURONTIN) 12-09 Oral, ity of capsule 300 13:30: 13:54 ONCE, 1 [place] mg 00 :00 dose, Mon Medical 12/09/19 at Branch 0730, Routine, DSU Pre-op oxyCODONE-a 2019- No 2{tbl} 2 tablet, Univers cetaminophe 12-09 Oral, ity of n 13:30: 13:54 ONCE, 1 [place] (PERCOCET) 00 :00 dose, Mon Medi mac 5-325 mg 12/09/19 at [facility] h per tablet 0730, 2 tablet Routine, DSU Pre-op tranexamic 2019- No 1000mg 1,000 mg, Univers acid 12-09 IV ity of (CYKLOKAPRO 13:15: 14:[facility] [place] [facility] 1,000 mg 00 :00 ONCE, 1 Medic al in NaCl dose, [facility] 0.9% (NS) 12/09/19 at 250 mL 0715, 250 piggyback mL, DSU Pre-op tranexamic 2019- No 1000mg 1,000 mg, Univers acid 12-09 IV ity of (CYKLOKAPRO 13:15: 14:31 [facility], [place] N) 1,000 mg 00 :00 ONCE, 1 Medic al in NaCl dose, [facility] 0.9% (NS) 12/09/19 at 250 mL 0715, 250 piggyback mL, DSU Pre-op ceFAZolin 2019- No 2g Univers in dextrose 12-09 ity of (iso-os) 06:00: 17:59 [place] (ANCEF) 2 00 :00 Medical gram/100 mL Branch [place] 2 g celecoxib 2019- No 400mg Univer s (CELEBREX) 12-09 ity of capsule 400 06:00: 17:59 [place] mg 00 :00 Medical Branch gabapentin 2020-0 2020- No 300mg Unive rs (NEURONTIN) 12-09 ity of capsule 300 06:00: 17:59 [place] mg 00 :00 Medical Branch oxyCODONE-a 2020-0 2020- No 2{tbl} Uni vers cetaminophe 12-09 [...] [place] mg 00 :00 Medical Branch gabapentin 2020-0 2020- No 300mg Unive rs (NEURONTIN) 12-09 [...] gram/100 mL Branch [place] 2 g celecoxib 2020-0 2020- No 400mg Univer s (CELEBREX) 12-09 [...] Branch 0.9% (NS) 250 mL piggyback ceFAZolin 2020- No 2g Univers in dextrose 12-09 ity of (iso-os) 06:00: 17:59 [place] (ANCEF) 2 00 :00 Medical gram/100 mL [...] by ity of tablet 17:34: mouth 2 [place] [address] (two) Medical times Branch daily with meals. rOPINIRole 2020-0 Yes 2mg Take 2 mg [place] 2 mg tablet 2-14 by mouth ity of 17:34: at [place] [address] bedtime. Medical Branch venlafaxine 2020-0 Yes 150mg Take 150 U nivers XR 150 mg 2-14 mg by ity of 24 hr 17:34: mouth [place] capsule 28 daily with Medica l breakfast. Branch clonazePAM 2020-0 Yes .5mg Take 0.5 Uni vers 0.5 mg 2-14 mg by ity of tablet 17:34: mouth at [place] [address] bedtime. Medical Branch pantoprazol 2020-0 Yes 40mg Take 40 mg Univers e 40 mg EC 2-14 by mouth ity o f tablet 17:34: daily. [place] [address] Medical Branch amitriptyli 2020-0 Yes 75mg Take 75 mg Univers ne 75 mg 2-14 by mouth ity of tablet 17:34: at [place] [address] bedtime. Medical Branch verapamil 2020-0 Yes 120mg Take 120 Uni vers (VERELAN 2-14 mg by ity of PM) 120 mg 17:34: mouth at [place] 24 hr 28 bedtime. Medical capsule Branch metFORMIN 2020-0 Yes 500mg Take 500 Uni vers 500 mg 2-14 mg by ity of tablet 17:34: mouth 2 [place] [address] (two) Medical times Branch daily with meals. rOPINIRole 2020-0 Yes 2mg Take 2 mg [place] 2 mg tablet 2-14 by mouth ity of 17:34: at [place] [address] bedtime. Medical Branch venlafaxine 2020-0 Yes 150mg Take 150 U nivers XR 150 mg 2-14 mg by ity of 24 hr 17:34: mouth [place] capsule 28 daily with Medica l breakfast. Branch clonazePAM 2020-0 Yes .5mg Take 0.5 Uni vers 0.5 mg 2-14 mg by ity of tablet 17:34: mouth at [place] [address] bedtime. Medical Branch pantoprazol 2020-0 Yes 40mg Take 40 mg Univers e 40 mg EC 2-14 by mouth ity o f tablet 17:34: daily. [place] [address] Medical Branch amitriptyli 2020-0 Yes 75mg Take 75 mg Univers ne 75 mg 2-14 by mouth ity of tablet 17:34: at [place] [address] bedtime. Medical Branch verapamil 2020-0 Yes 120mg Take 120 Uni vers (VERELAN 2-14 mg by ity of PM) 120 mg 17:34: mouth at [facility] as 24 hr 28 bedtime. Medical capsule Branch metFORMIN Yes 500mg Take 500 Uni vers 500 mg 2-14 mg by ity of tablet 17:34: mouth 2 [place] 28 (two) Medical times Branch daily with meals. rOPINIRole 20200 Yes 2mg Take 2 mg [place] 2 mg tablet 2-14 by mouth ity of 17:34: at [place] [address] bedtime. Medical Branch venlafaxine Yes 150mg Take 150 U nivers XR 150 mg 2-14 mg by ity of 24 hr 17:34: mouth [place] capsule daily with Medica l breakfast. Branch clonazePAM Yes .5mg Take 0.5 Uni vers 0.5 mg 2-14 mg by ity of tablet 17:34: mouth at [place] [address] bedtime. Medical Branch pantoprazol Yes 40mg Take 40 mg Univers e 40 mg EC 2-14 by mouth ity o f tablet 17:34: daily. [place] [address] Medical Branch amitriptyli Yes 75mg Take 75 mg Univers ne 75 mg 2-14 by mouth ity of tablet 17:34: at [place] [address] bedtime. Medical Branch HYDROcodone 2020- No 1{tbl} Take 1 U nivers -acetaminop 2-14 -14 tablet by it y of hen (NORCO) 17:33: 00:00 mouth [place] 10-325 mg 12 :00 every 6 Medical tablet (six) Branch hours as needed. atorvastati 2020- No 80mg Take 80 mg Univers n 80 mg 2-14 02-14 by mouth. ity of tablet 17:33: 00:00 [place] 12 :00 Medical Branch Levothyroxi 2020- No 100ug Take 100 Univers ne 100 mcg -14 -14 mcg by ity of capsule 17:33: 00:00 mouth. [place] 12 :00 Medical Branch QUEtiapine 2020- No 200mg Take 200 U nivers 200 mg 2-14 -14 mg by ity of tablet 17:33: 00:00 mouth at [place] 12 :00 bedtime. Medical Branch venlafaxine 2020-0 2020- No 37.5mg Take 37.5 Univers XR 37.5 mg 2-14 02-14 mg by ity of 24 hr 17:33: 00:00 mouth [place] capsule 12 :00 daily with Medica l breakfast. Branch HYDROcodone 2020-0 Yes 1{tbl} Take 1 Un [...] ity of hen 7.5-325 00:00: mouth 3 [place] mg per 00 (three) Medical tablet [...] by ity of tablet 00:00: mouth at [place] [address] bedtime. Medical Branch QUEtiapine 2020-0 Yes 100mg Take 100 [place] 100 mg 2-03 mg by ity of tablet 00:00: mouth at [place] [address] bedtime. Medical Branch QUEtiapine 2020-0 Yes 100mg Take 100 [place] 100 mg 2-03 mg by ity of tablet 00:00: mouth at [place] [address] bedtime. Medical Branch QUEtiapine 2020-0 Yes 100mg Take 100 [place] 100 mg 2-03 mg by ity of tablet 00:00: mouth at [place] [address] bedtime. Medical Branch QUEtiapine 2020-0 Yes 100mg Take 100 [place] 100 mg 2-03 mg by ity of tablet 00:00: mouth at [place] [address] bedtime. Medical Branch QUEtiapine 2020-0 Yes 100mg Take 100 [place] 100 mg 2-03 mg by ity of tablet 00:00: mouth at [place] [address] bedtime. Medical Branch QUEtiapine 2020-0 Yes 100mg Take 100 [place] 100 mg 2-03 mg by ity of tablet 00:00: mouth at [place] [address] bedtime. Medical Branch QUEtiapine 2020-0 Yes 100mg Take 100 [place] 100 mg 2-03 mg by ity of tablet 00:00: mouth at [place] [address] bedtime. Medical Branch QUEtiapine 2020-0 Yes 100mg Take 100 [place] 100 mg 2-03 mg by ity of tablet 00:00: mouth at [place] [address] bedtime. Medical Branch QUEtiapine 2020-0 Yes 100mg Take 100 [place] 100 mg 2-03 mg by ity of tablet 00:00: mouth at [place] [address] bedtime. Medical Branch QUEtiapine 2020-0 Yes 100mg Take 100 [place] 100 mg 2-03 mg by ity of tablet 00:00: mouth at [place] [address] bedtime. Medical Branch QUEtiapine 2020-0 Yes 100mg Take 100 [place] 100 mg 2-03 mg by ity of tablet 00:00: mouth at [place] [address] bedtime. Medical Branch QUEtiapine 2020-0 Yes 100mg Take 100 [place] 100 mg 2-03 mg by ity of tablet 00:00: mouth at [place] [address] bedtime. Medical Branch QUEtiapine 2020-0 Yes 100mg Take 100 [place] 100 mg 2-03 mg by ity of tablet 00:00: mouth at [place] [address] bedtime. Medical Branch QUEtiapine 2020-0 Yes 100mg Take 100 [place] 100 mg 2-03 mg by ity of tablet 00:00: mouth at [place] [address] bedtime. Medical Branch QUEtiapine 2020-0 Yes 100mg Take 100 [place] 100 mg 2-03 mg by ity of tablet 00:00: mouth at [place] [address] bedtime. Medical Branch QUEtiapine 2020-0 Yes 100mg Take 100 [place] 100 mg 2-03 mg by ity of tablet 00:00: mouth at [place] [address] bedtime. Medical Branch QUEtiapine 2020-0 Yes 100mg Take 100 [place] 100 mg 2-03 mg by ity of tablet 00:00: mouth at [place] [address] bedtime. Medical Branch QUEtiapine 2020-0 Yes 100mg Take 100 [place] 100 mg 2-03 mg by ity of tablet 00:00: mouth at [place] [address] bedtime. Medical Branch QUEtiapine 2020-0 Yes 100mg Take 100 [place] 100 mg 2-03 mg by ity of tablet 00:00: mouth at [place] [address] bedtime. Medical Branch QUEtiapine 2020-0 Yes 100mg Take 100 [place] 100 mg 2-03 mg by ity of tablet 00:00: mouth at [place] [address] bedtime. Medical Branch QUEtiapine 2020-0 Yes 100mg Take 100 [place] 100 mg 2-03 mg by ity of tablet 00:00: mouth at [place] [address] bedtime. Medical Branch QUEtiapine 2020-0 Yes 100mg Take 100 [place] 100 mg 2-03 mg by ity of tablet 00:00: mouth at [place] [address] bedtime. Medical Branch QUEtiapine 2020-0 Yes 100mg Take 100 [place] 100 mg 2-03 mg by ity of tablet 00:00: mouth at [place] [address] bedtime. Medical Branch QUEtiapine 2020-0 Yes 100mg Take 100 [place] 100 mg 2-03 mg by ity of tablet 00:00: mouth at [place] [address] bedtime. Medical Branch QUEtiapine 2020-0 Yes 100mg Take 100 [place] 100 mg 2-03 mg by ity of tablet 00:00: mouth at [place] [address] bedtime. Medical Branch QUEtiapine 2020-0 Yes 100mg Take 100 [place] 100 mg 2-03 mg by ity of tablet 00:00: mouth at [place] [address] bedtime. Medical Branch QUEtiapine 2020-0 Yes 100mg Take 100 [place] 100 mg 2-03 mg by ity of tablet 00:00: mouth at [place] [address] bedtime. Medical Branch QUEtiapine 2020-0 Yes 100mg Take 100 [place] 100 mg 2-03 mg by ity of tablet 00:00: mouth at [place] [address] bedtime. Medical Branch QUEtiapine 2020-0 Yes 100mg Take 100 [place] 100 mg 2-03 mg by ity of tablet 00:00: mouth at [place] [address] bedtime. Medical Branch QUEtiapine 2020-0 Yes 100mg Take 100 [place] 100 mg 2-03 mg by ity of tablet 00:00: mouth at [place] [address] bedtime. Medical Branch QUEtiapine 2020-0 Yes 100mg Take 100 [place] 100 mg 2-03 mg by ity of tablet 00:00: mouth at [place] [address] bedtime. Medical Branch QUEtiapine 2020-0 Yes 100mg Take 100 [place] 100 mg 2-03 mg by ity of tablet 00:00: mouth at [place] [address] bedtime. Medical Branch QUEtiapine 2020-0 Yes 100mg Take 100 [place] 100 mg 2-03 mg by ity of tablet 00:00: mouth at [place] [address] bedtime. Medical Branch QUEtiapine 2020-0 Yes 100mg Take 100 [place] 100 mg 2-03 mg by ity of tablet 00:00: mouth at [place] [address] bedtime. Medical Branch QUEtiapine 2020-0 Yes 100mg Take 100 [place] 100 mg 2-03 mg by ity of tablet 00:00: mouth at [place] [address] bedtime. Medical Branch QUEtiapine 2020-0 Yes 100mg Take 100 [place] 100 mg 2-03 mg by ity of tablet 00:00: mouth at [place] [address] bedtime. Medical Branch QUEtiapine 2020-0 Yes 100mg Take 100 [place] 100 mg 2-03 mg by ity of tablet 00:00: mouth at [place] [address] bedtime. Medical Branch QUEtiapine 2020-0 Yes 100mg Take 100 [place] 100 mg 2-03 mg by ity of tablet 00:00: mouth at [place] [address] bedtime. Medical Branch QUEtiapine 2020-0 Yes 100mg Take 100 [place] 100 mg 2-03 mg by ity of tablet 00:00: mouth at [place] [address] bedtime. Medical Branch QUEtiapine 2020-0 Yes 100mg Take 100 [place] 100 mg 2-03 mg by ity of tablet 00:00: mouth at [place] [address] bedtime. Medical Branch QUEtiapine 2020-0 Yes 100mg Take 100 [place] 100 mg 2-03 mg by ity of tablet 00:00: mouth at [place] [address] bedtime. Medical Branch QUEtiapine 2020-0 Yes 100mg Take 100 [place] 100 mg 2-03 mg by ity of tablet 00:00: mouth at [place] [address] bedtime. Medical Branch QUEtiapine 2020-0 Yes 100mg Take 100 [place] 100 mg 2-03 mg by ity of tablet 00:00: mouth at [place] [address] bedtime. Medical Branch QUEtiapine 2020-0 Yes 100mg Take 100 [place] 100 mg 2-03 mg by ity of tablet 00:00: mouth at [place] [address] bedtime. Medical Branch QUEtiapine 2020-0 Yes 100mg Take 100 [place] 100 mg 2-03 mg by ity of tablet 00:00: mouth at [place] [address] bedtime. Medical Branch QUEtiapine 2020-0 Yes 100mg Take 100 [place] 100 mg 2-03 mg by ity of tablet 00:00: mouth at [place] [address] bedtime. Medical Branch QUEtiapine 2020-0 Yes 100mg Take 100 [place] 100 mg 2-03 mg by ity of tablet 00:00: mouth at [place] [address] bedtime. Medical Branch QUEtiapine 2020-0 Yes 100mg Take 100 [place] 100 mg 2-03 mg by ity of tablet 00:00: mouth at [place] [address] bedtime. Medical Branch QUEtiapine 2020-0 Yes 100mg Take 100 [place] 100 mg 2-03 mg by ity of tablet 00:00: mouth at [place] [address] bedtime. Medical Branch QUEtiapine 2020-0 Yes 100mg Take 100 [place] 100 mg 2-03 mg by ity of tablet 00:00: mouth at [place] [address] bedtime. Medical Branch QUEtiapine 2020-0 Yes 100mg Take 100 [place] 100 mg 2-03 mg by ity of tablet 00:00: mouth at [place] [address] bedtime. Medical Branch QUEtiapine 2020-0 Yes 100mg Take 100 [place] 100 mg 2-03 mg by ity of tablet 00:00: mouth at [place] [address] bedtime. Medical Branch QUEtiapine 2020-0 Yes 100mg Take 100 [place] 100 mg 2-03 mg by ity of tablet 00:00: mouth at [place] [address] bedtime. Medical Branch QUEtiapine 2020-0 Yes 100mg Take 100 [place] 100 mg 2-03 mg by ity of tablet 00:00: mouth at [place] [address] bedtime. Medical Branch QUEtiapine 2020-0 Yes 100mg Take 100 [place] 100 mg 2-03 mg by ity of tablet 00:00: mouth at [place] [address] bedtime. Medical Branch QUEtiapine 2020-0 Yes 100mg Take 100 [place] 100 mg 2-03 mg by ity of tablet 00:00: mouth at [place] [address] bedtime. Medical Branch QUEtiapine 2020-0 Yes 100mg Take 100 [place] 100 mg 2-03 mg by ity of tablet 00:00: mouth at [place] [address] bedtime. Medical Branch QUEtiapine 2020-0 Yes 100mg Take 100 [place] 100 mg 2-03 mg by ity of tablet 00:00: mouth at [place] [address] bedtime. Medical Branch QUEtiapine 2020-0 Yes 100mg Take 100 [place] 100 mg 2-03 mg by ity of tablet 00:00: mouth at [place] [address] bedtime. Medical Branch QUEtiapine 2020-0 Yes 100mg Take 100 [place] 100 mg 2-03 mg by ity of tablet 00:00: mouth at [place] [address] bedtime. Medical Branch QUEtiapine 2020-0 Yes 100mg Take 100 [place] 100 mg 2-03 mg by ity of tablet 00:00: mouth at [place] [address] bedtime. Medical Branch QUEtiapine 2020-0 Yes 100mg Take 100 [place] 100 mg 2-03 mg by ity of tablet 00:00: mouth at [place] [address] bedtime. Medical Branch QUEtiapine 2020-0 Yes 100mg Take 100 [place] 100 mg 2-03 mg by ity of tablet 00:00: mouth at [place] [address] bedtime. Medical Branch spironolact 2020-0 Yes 25mg Take 25 mg Univers one 25 mg 1-22 by mouth ity of tablet 00:00: daily. [place] Medical Branch spironolact 2020-0 Yes 25mg Take 25 mg Univers one 25 mg 1-22 by mouth ity of tablet 00:00: daily. [place] Medical Branch spironolact 2020-0 Yes 25mg Take 25 mg Univers one 25 mg 1-22 by mouth ity of tablet 00:00: daily. [place] Medical Branch spironolact 2020-0 Yes 25mg Take 25 mg Univers one 25 mg 1-22 by mouth ity of tablet 00:00: daily. [place] [facility] Branch spironolact 2020-0 Yes 25mg Take 25 mg Univers one 25 mg 1-22 by mouth ity of tablet 00:00: daily. [place] [facility] Branch spironolact 2020-0 Yes 25mg Take 25 mg Univers one 25 mg 1-22 by mouth ity of tablet 00:00: daily. [place] [facility] Branch spironolact 2020-0 Yes 25mg Take 25 mg Univers one 25 mg 1-22 by mouth ity of tablet 00:00: daily. [place] [facility] Branch spironolact 2020-0 Yes 25mg Take 25 mg Univers one 25 mg 1-22 by mouth ity of tablet 00:00: daily. [place] [facility] Branch spironolact 2020-0 Yes 25mg Take 25 mg Univers one 25 mg 1-22 by mouth ity of tablet 00:00: daily. [place] [facility] Branch spironolact 2020-0 Yes 25mg Take 25 mg Univers one 25 mg 1-22 by mouth ity of tablet 00:00: daily. [place] [facility] Branch spironolact 2020-0 Yes 25mg Take 25 mg Univers one 25 mg 1-22 by mouth ity of tablet 00:00: daily. [address] Branch spironolact 2020-0 Yes 25mg Take 25 mg Univers one 25 mg 1-22 by mouth ity of tablet 00:00: daily. [place] [facility] spironolact 2020-0 Yes 25mg Take 25 mg Univers one 25 mg 1-22 by mouth ity of tablet 00:00: daily. [place] [facility] spironolact 2020-0 Yes 25mg Take 25 mg Univers one 25 mg 1-22 by mouth ity of tablet 00:00: daily. [place] [facility] spironolact 2020-0 Yes 25mg Take 25 mg Univers one 25 mg 1-22 by mouth ity of tablet 00:00: daily. [place] [facility] spironolact 2020-0 Yes 25mg Take 25 mg Univers one 25 mg 1-22 by mouth ity of tablet 00:00: daily. [place] [facility] spironolact 2020-0 Yes 25mg Take 25 mg Univers one 25 mg 1-22 by mouth ity of tablet 00:00: daily. [place] [facility] spironolact 2020-0 Yes 25mg Take 25 mg Univers one 25 mg 1-22 by mouth ity of tablet 00:00: daily. [place] [facility] spironolact 2020-0 Yes 25mg Take 25 mg Univers one 25 mg 1-22 by mouth ity of tablet 00:00: daily. [place] [facility] spironolact 2020-0 Yes 25mg Take 25 mg Univers one 25 mg 1-22 by mouth ity of tablet 00:00: daily. [place] [facility] spironolact 2020-0 Yes 25mg Take 25 mg Univers one 25 mg 1-22 by mouth ity of tablet 00:00: daily. [place] [facility] spironolact 2020-0 Yes 25mg Take 25 mg Univers one 25 mg 1-22 by mouth ity of tablet 00:00: daily. [place] [facility] spironolact 2020-0 Yes 25mg Take 25 mg Univers one 25 mg 1-22 by mouth ity of tablet 00:00: daily. [place] [facility] spironolact 2020-0 Yes 25mg Take 25 mg Univers one 25 mg 1-22 by mouth ity of tablet 00:00: daily. [address] spironolact 2020-0 Yes 25mg Take 25 mg Univers one 25 mg 1-22 by mouth ity of tablet 00:00: daily. [place] [facility] spironolact 2020-0 Yes 25mg Take 25 mg Univers one 25 mg 1-22 by mouth ity of tablet 00:00: daily. [place] [facility] spironolact 2020-0 Yes 25mg Take 25 mg Univers one 25 mg 1-22 by mouth ity of tablet 00:00: daily. [place] [facility] spironolact 2020-0 Yes 25mg Take 25 mg Univers one 25 mg 1-22 by mouth ity of tablet 00:00: daily. [place] [facility] spironolact 2020-0 Yes 25mg Take 25 mg Univers one 25 mg 1-22 by mouth ity of tablet 00:00: daily. [place] [facility] spironolact 2020-0 Yes 25mg Take 25 mg Univers one 25 mg 1-22 by mouth ity of tablet 00:00: daily. [place] [facility] spironolact 2020-0 Yes 25mg Take 25 mg Univers one 25 mg 1-22 by mouth ity of tablet 00:00: daily. [place] [facility] spironolact 2020-0 Yes 25mg Take 25 mg Univers one 25 mg 1-22 by mouth ity of tablet 00:00: daily. [place] [facility] spironolact 2020-0 Yes 25mg Take 25 mg Univers one 25 mg 1-22 by mouth ity of tablet 00:00: daily. [place] [facility] spironolact 2020-0 Yes 25mg Take 25 mg Univers one 25 mg 1-22 by mouth ity of tablet 00:00: daily. [place] [facility] spironolact 2020-0 Yes 25mg Take 25 mg Univers one 25 mg 1-22 by mouth ity of tablet 00:00: daily. [place] [facility] spironolact 2020-0 Yes 25mg Take 25 mg Univers one 25 mg 1-22 by mouth ity of tablet 00:00: daily. [place] [facility] spironolact 2020-0 Yes 25mg Take 25 mg Univers one 25 mg 1-22 by mouth ity of tablet 00:00: daily. [place] [facility] spironolact 2020-0 Yes 25mg Take 25 mg Univers one 25 mg 1-22 by mouth ity of tablet 00:00: daily. [address] spironolact 2020-0 Yes 25mg Take 25 mg Univers one 25 mg 1-22 by mouth ity of tablet 00:00: daily. [place] [facility] spironolact 2020-0 Yes 25mg Take 25 mg Univers one 25 mg 1-22 by mouth ity of tablet 00:00: daily. [place] [facility] spironolact 2020-0 Yes 25mg Take 25 mg Univers one 25 mg 1-22 by mouth ity of tablet 00:00: daily. [place] [facility] Branch spironolact 2020-0 Yes 25mg Take 25 mg Univers one 25 mg 1-22 by mouth ity of tablet 00:00: daily. [place] [facility] spironolact 2020-0 Yes 25mg Take 25 mg Univers one 25 mg 1-22 by mouth ity of tablet 00:00: daily. [place] [facility] spironolact 2020-0 Yes 25mg Take 25 mg Univers one 25 mg 1-22 by mouth ity of tablet 00:00: daily. [place] [facility] spironolact 2020-0 Yes 25mg Take 25 mg Univers one 25 mg 1-22 by mouth ity of tablet 00:00: daily. [place] [facility] spironolact 2020-0 Yes 25mg Take 25 mg Univers one 25 mg 1-22 by mouth ity of tablet 00:00: daily. [place] [facility] spironolact 2020-0 Yes 25mg Take 25 mg Univers one 25 mg 1-22 by mouth ity of tablet 00:00: daily. [place] [facility] spironolact 2020-0 Yes 25mg Take 25 mg Univers one 25 mg 1-22 by mouth ity of tablet 00:00: daily. [place] [facility] spironolact 2020-0 Yes 25mg Take 25 mg Univers one 25 mg 1-22 by mouth ity of tablet 00:00: daily. [place] [facility] spironolact 2020-0 Yes 25mg Take 25 mg Univers one 25 mg 1-22 by mouth ity of tablet 00:00: daily. [place] [facility] spironolact 2020-0 Yes 25mg Take 25 mg Univers one 25 mg 1-22 by mouth ity of tablet 00:00: daily. [place] [facility] spironolact 2020-0 Yes 25mg Take 25 mg Univers one 25 mg 1-22 by mouth ity of tablet 00:00: daily. [address] spironolact 2020-0 Yes 25mg Take 25 mg Univers one 25 mg 1-22 by mouth ity of tablet 00:00: daily. [place] [facility] spironolact 2020-0 Yes 25mg Take 25 mg [...] by mouth ity of tablet 00:00: daily. [place] [facility] SERTraline 2020-0 Yes 50mg Take 50 mg U nivers 50 mg 1-16 by mouth ity of tablet 00:00: at [place] [address] bedtime. Medical Branch SERTraline 2020-0 Yes 50mg Take 50 mg U nivers 50 mg 1-16 by mouth ity of tablet 00:00: at [place] [address] bedtime. Medical Branch SERTraline 2020-0 Yes 50mg Take 50 mg U nivers 50 mg 1-16 by mouth ity of tablet 00:00: at [place] [address] bedtime. Medical Branch SERTraline 2020-0 Yes 50mg Take 50 mg U nivers 50 mg 1-16 by mouth ity of tablet 00:00: at [place] [address] bedtime. Medical Branch SERTraline 2020-0 Yes 50mg Take 50 mg U nivers 50 mg 1-16 by mouth ity of tablet 00:00: at [place] [address] bedtime. Medical Branch SERTraline 2020-0 Yes 50mg Take 50 mg U nivers 50 mg 1-16 by mouth ity of tablet 00:00: at [place] [address] bedtime. Medical Branch SERTraline 2020-0 Yes 50mg Take 50 mg U nivers 50 mg 1-16 by mouth ity of tablet 00:00: at [place] [address] bedtime. Medical Branch SERTraline 2020-0 Yes 50mg Take 50 mg U nivers 50 mg 1-16 by mouth ity of tablet 00:00: at [place] [address] bedtime. Medical Branch SERTraline 2020-0 Yes 50mg Take 50 mg U nivers 50 mg 1-16 by mouth ity of tablet 00:00: at [place] [address] bedtime. Medical Branch SERTraline 2020-0 Yes 50mg Take 50 mg U nivers 50 mg 1-16 by mouth ity of tablet 00:00: at [place] [address] bedtime. Medical Branch SERTraline 2020-0 Yes 50mg Take 50 mg U nivers 50 mg 1-16 by mouth ity of tablet 00:00: at [place] [address] bedtime. Medical Branch SERTraline 2020-0 Yes 50mg Take 50 mg U nivers 50 mg 1-16 by mouth ity of tablet 00:00: at [place] [address] bedtime. Medical Branch SERTraline 2020-0 Yes 50mg Take 50 mg U nivers 50 mg 1-16 by mouth ity of tablet 00:00: at [place] [address] bedtime. [facility] SERTraline 2020-0 Yes 50mg Take 50 mg [facility] nivers 50 mg 1-16 by mouth ity of tablet 00:00: at [place] [address] bedtime. [facility] SERTraline 2020-0 Yes 50mg Take 50 mg U nivers 50 mg 1-16 by mouth ity of tablet 00:00: at [place] [address] bedtime. [facility] SERTraline 2020-0 Yes 50mg Take 50 mg U nivers 50 mg 1-16 by mouth ity of tablet 00:00: at [place] [address] bedtime. [facility] SERTraline 2020-0 Yes 50mg Take 50 mg U nivers 50 mg 1-16 by mouth ity of tablet 00:00: at [place] [address] bedtime. [facility] SERTraline 2020-0 Yes 50mg Take 50 mg [facility] nivers 50 mg 1-16 by mouth ity of tablet 00:00: at [place] [address] bedtime. [facility] SERTraline 2020-0 Yes 50mg Take 50 mg U nivers 50 mg 1-16 by mouth ity of tablet 00:00: at [place] [address] bedtime. [facility] SERTraline 2020-0 Yes 50mg Take 50 mg [facility] nivers 50 mg 1-16 by mouth ity of tablet 00:00: at [place] [address] bedtime. [facility] SERTraline 2020-0 Yes 50mg Take 50 mg [facility] nivers 50 mg 1-16 by mouth ity of tablet 00:00: at [place] [address] bedtime. [facility] SERTraline 2020-0 Yes 50mg Take 50 mg U nivers 50 mg 1-16 by mouth ity of tablet 00:00: at [place] [address] bedtime. [facility] SERTraline 2020-0 Yes 50mg Take 50 mg [facility] nivers 50 mg 1-16 by mouth ity of tablet 00:00: at [place] [address] bedtime. [facility] SERTraline 2020-0 Yes 50mg Take 50 mg [facility] nivers 50 mg 1-16 by mouth ity of tablet 00:00: at [place] [address] bedtime. [facility] SERTraline 2020-0 Yes 50mg Take 50 mg [facility] nivers 50 mg 1-16 by mouth ity of tablet 00:00: at [place] [address] bedtime. [facility] SERTraline 2020-0 Yes 50mg Take 50 mg [facility] nivers 50 mg 1-16 by mouth ity of tablet 00:00: at [place] [address] bedtime. [facility] SERTraline 2020-0 Yes 50mg Take 50 mg U nivers 50 mg 1-16 by mouth ity of tablet 00:00: at [place] [address] bedtime. [facility] SERTraline 2020-0 Yes 50mg Take 50 mg [facility] nivers 50 mg 1-16 by mouth ity of tablet 00:00: at [place] [address] bedtime. [facility] SERTraline 2020-0 Yes 50mg Take 50 mg [facility] nivers 50 mg 1-16 by mouth ity of tablet 00:00: at [place] [address] bedtime. [facility] SERTraline 2020-0 Yes 50mg Take 50 mg [facility] nivers 50 mg 1-16 by mouth ity of tablet 00:00: at [place] [address] bedtime. [facility] SERTraline 2020-0 Yes 50mg Take 50 mg [facility] nivers 50 mg 1-16 by mouth ity of tablet 00:00: at [place] [address] bedtime. [facility] SERTraline 2020-0 Yes 50mg Take 50 mg [facility] nivers 50 mg 1-16 by mouth ity of tablet 00:00: at [place] [address] bedtime. [facility] SERTraline 2020-0 Yes 50mg Take 50 mg [facility] nivers 50 mg 1-16 by mouth ity of tablet 00:00: at [place] [address] bedtime. [facility] SERTraline 2020-0 Yes 50mg Take 50 mg [facility] nivers 50 mg 1-16 by mouth ity of tablet 00:00: at [place] [address] bedtime. [facility] SERTraline 2020-0 Yes 50mg Take 50 mg [facility] nivers 50 mg 1-16 by mouth ity of tablet 00:00: at [place] [address] bedtime. [facility] SERTraline 2020-0 Yes 50mg Take 50 mg [facility] nivers 50 mg 1-16 by mouth ity of tablet 00:00: at [place] [address] bedtime. [facility] SERTraline 2020-0 Yes 50mg Take 50 mg [facility] nivers 50 mg 1-16 by mouth ity of tablet 00:00: at [place] [address] bedtime. [facility] SERTraline 2020-0 Yes 50mg Take 50 mg [facility] nivers 50 mg 1-16 by mouth ity of tablet 00:00: at [place] [address] bedtime. [facility] SERTraline 2020-0 Yes 50mg Take 50 mg [facility] nivers 50 mg 1-16 by mouth ity of tablet 00:00: at [place] [address] bedtime. [facility] SERTraline 2020-0 Yes 50mg Take 50 mg [facility] nivers 50 mg 1-16 by mouth ity of tablet 00:00: at [place] [address] bedtime. [facility] SERTraline 2020-0 Yes 50mg Take 50 mg [facility] nivers 50 mg 1-16 by mouth ity of tablet 00:00: at [place] [address] bedtime. [facility] SERTraline 2020-0 Yes 50mg Take 50 mg [facility] n[facility] 50 mg 1-16 by mouth ity of tablet 00:00: at [place] [address] bedtime. [facility] SERTraline 2020-0 Yes 50mg Take 50 mg [facility] n[facility] 50 mg 1-16 by mouth ity of tablet 00:00: at [place] [address] bedtime. [facility] SERTraline 2020-0 Yes 50mg Take 50 mg [facility] nivers 50 mg 1-16 by mouth ity of tablet 00:00: at [place] [address] bedtime. [facility] SERTraline 2020-0 Yes 50mg Take 50 mg [facility] nivers 50 mg 1-16 by mouth ity of tablet 00:00: at [place] [address] bedtime. [facility] SERTraline 2020-0 Yes 50mg Take 50 mg [facility] 50 mg 1-16 by mouth ity of tablet 00:00: at [place] [address] bedtime. [facility] SERTraline 2020-0 Yes 50mg Take 50 mg [facility] 50 mg 1-16 by mouth ity of tablet 00:00: at [place] [address] bedtime. [facility] SERTraline 2020-0 Yes 50mg Take 50 mg [facility]ivers 50 mg 1-16 by mouth ity of tablet 00:00: at [place] [address] bedtime. [facility] SERTraline 2020-0 Yes 50mg Take 50 mg [facility] nivers 50 mg 1-16 by mouth ity of tablet 00:00: at [place] [address] bedtime. [facility] SERTraline 2020-0 Yes 50mg Take 50 mg [facility] 50 mg 1-16 by mouth ity of tablet 00:00: at [place] [address] bedtime. [facility] SERTraline 2020-0 Yes 50mg Take 50 mg [facility] nivers 50 mg 1-16 by mouth ity of tablet 00:00: at [place] [address] bedtime. [facility] SERTraline 2020-0 Yes 50mg Take 50 mg [facility] nivers 50 mg 1-16 by mouth ity of tablet 00:00: at [place] [address] bedtime. [facility] SERTraline 2020-0 Yes 50mg Take 50 mg [facility] nivers 50 mg 1-16 by mouth ity of tablet 00:00: at [place] [address] bedtime. [facility] SERTraline 2020-0 Yes 50mg Take 50 mg [facility] 50 mg 1-16 by mouth ity of tablet 00:00: at [place] [address] bedtime. [facility] SERTraline 2020-0 Yes 50mg Take 50 mg [facility]ivers 50 mg 1-16 by mouth ity of tablet 00:00: at [place] [address] bedtime. [facility] SERTraline 2020-0 Yes 50mg Take 50 mg [facility] nivers 50 mg 1-16 by mouth ity of tablet 00:00: at [place] [address] bedtime. [facility] SERTraline 2020-0 Yes 50mg Take 50 mg [facility] nivers 50 mg 1-16 by mouth ity of tablet 00:00: at [place] [address] bedtime. [facility] SERTraline 2020-0 Yes 50mg Take 50 mg [facility] 50 mg 1-16 by mouth ity of tablet 00:00: at [place] [address] bedtime. [facility] SERTraline 2020-0 Yes 50mg Take 50 mg [facility] nivers 50 mg 1-16 by mouth ity of tablet 00:00: at [place] [address] bedtime. [facility] SERTraline 2020-0 Yes 50mg Take 50 mg [facility] nivers 50 mg 1-16 by mouth ity of tablet 00:00: at [place] [address] bedtime. [facility] SERTraline 2020-0 Yes 50mg Take 50 mg [facility] n[facility] 50 mg 1-16 by mouth ity of tablet 00:00: at [place] [address] bedtime. [facility] SERTraline 2020-0 Yes 50mg Take 50 mg [facility] 50 mg 1-16 by mouth ity of tablet 00:00: at [place] [address] bedtime. [facility] SERTraline 2020-0 Yes 50mg Take 50 mg [facility]ivers 50 mg 1-16 by mouth ity of tablet 00:00: at [place] [address] bedtime. [facility] SERTraline 2020-0 Yes 50mg Take 50 mg [facility] 50 mg 1-16 by mouth ity of tablet 00:00: at [place] [address] bedtime. [facility] methocarbam 2020-0 Yes 750mg Take 750 U nivers ol 750 mg 1-07 mg by ity of tablet 00:00: mouth [place] daily. [facility] venlafaxine 2020-0 Yes 75mg Take 75 mg [facility] 75 mg 24 1-07 by mouth ity of hr capsule 00:00: every [place] [address] evening. [facility] methocarbam 2020-0 Yes 750mg Take 750 U nivers ol 750 mg 1-07 mg by ity of tablet 00:00: mouth [place] daily. [facility] venlafaxine 2020-0 Yes 75mg Take 75 mg [facility] X[facility] 75 mg 24 1-07 by mouth ity of hr capsule 00:00: every [place] [address] evening. [facility] methocarbam 2020-0 Yes 750mg [...] mouth ity of hr capsule 00:00: every [place] 00 evening. [facility] methocarbam 2020-0 Yes 750mg Take 750 U nivers ol 750 mg 1-07 mg by ity of tablet 00:00: mouth [place] 00 daily. [facility] venlafaxine 2020-0 Yes 75mg Take 75 mg [facility] X[facility] 75 mg 24 1-07 by mouth ity of hr capsule 00:00: every [place] 00 evening. [facility] methocarbam 2020-0 Yes 750mg Take 750 U nivers ol 750 mg 1-07 mg by ity of tablet 00:00: mouth [place] 00 daily. [facility] venlafaxine 2020-0 Yes 75mg Take 75 mg [facility] X[facility] 75 mg 24 1-07 by mouth ity of hr capsule 00:00: every [place] 00 evening. [facility] methocarbam 2020-0 Yes 750mg Take 750 U nivers ol 750 mg 1-07 mg by ity of tablet 00:00: mouth 00 daily. [facility] venlafaxine 2020-0 Yes 75mg Take 75 mg [facility] X[facility] 75 mg 24 1-07 by mouth ity of hr capsule 00:00: every [place] 00 evening. [facility] methocarbam 2020-0 Yes 750mg Take 750 U nivers ol 750 mg 1-07 mg by ity of tablet 00:00: mouth 00 daily. [facility] venlafaxine 2020-0 Yes 75mg Take 75 mg [facility] X[facility] 75 mg 24 1-07 by mouth ity of hr capsule 00:00: every [place] 00 evening. [facility] methocarbam 2020-0 Yes 750mg Take 750 U nivers ol 750 mg 1-07 mg by ity of tablet 00:00: mouth [place] 00 daily. [facility] venlafaxine 2020-0 Yes [...] mouth ity of hr capsule 00:00: every [place] 00 evening. [facility] methocarbam 2020-0 Yes 750mg Take 750 U nivers ol 750 mg 1-07 mg by ity of tablet 00:00: mouth 00 daily. [facility] venlafaxine 2020-0 Yes 75mg Take 75 mg [facility] X[facility] 75 mg 24 1-07 by mouth ity of hr capsule 00:00: every [place] 00 evening. [facility] methocarbam 2020-0 Yes 750mg Take 750 U nivers ol 750 mg 1-07 mg by ity of tablet 00:00: mouth [place] 00 daily. [facility] venlafaxine 2020-0 Yes 75mg Take 75 mg [facility] X[facility] 75 mg 24 1-07 by mouth ity of hr capsule 00:00: every [place] 00 evening. [facility] methocarbam 2020-0 Yes 750mg Take 750 U nivers ol 750 mg 1-07 mg by ity of tablet 00:00: mouth 00 daily. [facility] venlafaxine 2020-0 Yes 75mg Take 75 mg [facility] X[facility] 75 mg 24 1-07 by mouth ity of hr capsule 00:00: every [place] 00 evening. [facility] methocarbam 2020-0 Yes 750mg Take 750 U nivers ol 750 mg 1-07 mg by ity of tablet 00:00: mouth [place] 00 daily. [facility] venlafaxine 2020-0 Yes 75mg Take 75 mg [facility] X[facility] 75 mg 24 1-07 by mouth ity of hr capsule 00:00: every [place] 00 evening. [facility] methocarbam 2020-0 Yes 750mg Take 750 U nivers ol 750 mg 1-07 mg by ity of tablet 00:00: mouth 00 daily. [facility] venlafaxine 2020-0 Yes 75mg Take 75 mg [facility] XR 75 mg 24 1-07 by mouth ity of hr capsule 00:00: every [place] 00 evening. [facility] methocarbam 2020-0 Yes 750mg Take 750 U nivers ol 750 mg 1-07 mg by ity of tablet 00:00: mouth [place] 00 daily. [facility] venlafaxine 2020-0 Yes 75mg Take 75 mg [facility] X[facility] 75 mg 24 1-07 by mouth ity of hr capsule 00:00: every [place] 00 evening. [facility] methocarbam 2020-0 Yes 750mg Take 750 U nivers ol 750 mg 1-07 mg by ity of tablet 00:00: mouth [place] 00 daily. [facility] venlafaxine 2020-0 Yes 75mg Take 75 mg [facility] X[facility] 75 mg 24 1-07 by mouth ity of hr capsule 00:00: every [place] 00 evening. [facility] methocarbam 2020-0 Yes 750mg Take 750 U nivers ol 750 mg 1-07 mg by ity of tablet 00:00: mouth [place] 00 daily. [facility] venlafaxine 2020-0 Yes 75mg Take 75 mg [facility] X[facility] 75 mg 24 1-07 by mouth ity of hr capsule 00:00: every [place] 00 evening. [facility] methocarbam 2020-0 Yes 750mg Take 750 U nivers ol 750 mg 1-07 mg by ity of tablet 00:00: mouth [place] 00 daily. [facility] venlafaxine 2020-0 Yes 75mg Take 75 mg [facility] X[facility] 75 mg 24 1-07 by mouth ity of hr capsule 00:00: every [place] 00 evening. [facility] methocarbam 2020-0 Yes 750mg Take 750 U nivers ol 750 mg 1-07 mg by ity of tablet 00:00: mouth [place] 00 daily. [facility] venlafaxine 2020-0 Yes 75mg Take 75 mg [facility] X[facility] 75 mg 24 1-07 by mouth ity of hr capsule 00:00: every [place] 00 evening. [facility] methocarbam 2020-0 Yes [...] mouth ity of hr capsule 00:00: every [place] 00 evening. [facility] methocarbam 2020-0 Yes 750mg Take 750 U nivers ol 750 mg 1-07 mg by ity of tablet 00:00: mouth 00 daily. [facility] venlafaxine 2020-0 Yes 75mg Take 75 mg [facility] XR 75 mg 24 1-07 by mouth ity of hr capsule 00:00: every [place] 00 evening. [facility] methocarbam 2020-0 Yes 750mg Take 750 U nivers ol 750 mg 1-07 mg by ity of tablet 00:00: mouth [place] 00 daily. [facility] venlafaxine 2020-0 Yes 75mg Take 75 mg [facility] X[facility] 75 mg 24 1-07 by mouth ity of hr capsule 00:00: every [place] 00 evening. [facility] methocarbam 2020-0 Yes 750mg Take 750 U nivers ol 750 mg 1-07 mg by ity of tablet 00:00: mouth [place] 00 daily. [facility] venlafaxine 2020-0 Yes 75mg Take 75 mg [facility] X[facility] 75 mg 24 1-07 by mouth ity of hr capsule 00:00: every [place] 00 evening. [facility] methocarbam 2020-0 Yes 750mg Take 750 U nivers ol 750 mg 1-07 mg by ity of tablet 00:00: mouth [place] 00 daily. [facility] venlafaxine 2020-0 Yes 75mg Take 75 mg [facility] X[facility] 75 mg 24 1-07 by mouth ity of hr capsule 00:00: every [place] 00 evening. [facility] methocarbam 2020-0 Yes 750mg Take 750 U nivers ol 750 mg 1-07 mg by ity of tablet 00:00: mouth 00 daily. [facility] venlafaxine 2020-0 Yes 75mg Take 75 mg [facility] XR 75 mg 24 1-07 by mouth ity of hr capsule 00:00: every [place] 00 evening. [facility] methocarbam 2020-0 Yes 750mg Take 750 U nivers ol 750 mg 1-07 mg by ity of tablet 00:00: mouth 00 daily. [facility] venlafaxine 2020-0 Yes 75mg Take 75 mg [facility] XR 75 mg 24 1-07 by mouth ity of hr capsule 00:00: every [place] 00 evening. [facility] methocarbam 2020-0 Yes 750mg Take 750 U nivers ol 750 mg 1-07 mg by ity of tablet 00:00: mouth [place] 00 daily. [facility] venlafaxine 2020-0 Yes 75mg Take 75 mg [facility] X[facility] 75 mg 24 1-07 by mouth ity of hr capsule 00:00: every [place] 00 evening. [facility] methocarbam 2020-0 Yes 750mg Take 750 U nivers ol 750 mg 1-07 mg by ity of tablet 00:00: mouth [place] 00 daily. [facility] venlafaxine 2020-0 Yes 75mg Take 75 mg [facility] XR 75 mg 24 1-07 by mouth ity of hr capsule 00:00: every [place] 00 evening. [facility] methocarbam 2020-0 Yes 750mg Take 750 U nivers ol 750 mg 1-07 mg by ity of tablet 00:00: mouth [place] 00 daily. [facility] venlafaxine 2020-0 Yes 75mg Take 75 mg [facility] X[facility] 75 mg 24 1-07 by mouth ity of hr capsule 00:00: every [place] 00 evening. [facility] methocarbam 2020-0 Yes 750mg Take 750 U nivers ol 750 mg 1-07 mg by ity of tablet 00:00: mouth [place] 00 daily. [facility] venlafaxine 2020-0 Yes 75mg Take 75 mg [facility] XR 75 mg 24 1-07 by mouth ity of hr capsule 00:00: every [place] 00 evening. [facility] methocarbam 2020-0 Yes [...] mouth ity of hr capsule 00:00: every [place] 00 evening. [facility] methocarbam 2020-0 Yes 750mg Take 750 U nivers ol 750 mg 1-07 mg by ity of tablet 00:00: mouth 00 daily. [facility] venlafaxine 2020-0 Yes 75mg Take 75 mg [facility] XR 75 mg 24 1-07 by mouth ity of hr capsule 00:00: every [place] 00 evening. [facility] methocarbam 2020-0 Yes 750mg Take 750 U nivers ol 750 mg 1-07 mg by ity of tablet 00:00: mouth [place] 00 daily. [facility] venlafaxine 2020-0 Yes 75mg Take 75 mg [facility] XR 75 mg 24 1-07 by mouth ity of hr capsule 00:00: every [place] 00 evening. [facility] methocarbam 2020-0 Yes 750mg Take 750 U nivers ol 750 mg 1-07 mg by ity of tablet 00:00: mouth [place] 00 daily. [facility] venlafaxine 2020-0 Yes 75mg Take 75 mg [facility] XR 75 mg 24 1-07 by mouth ity of hr capsule 00:00: every [place] 00 evening. [facility] methocarbam 2020-0 Yes 750mg Take 750 U nivers ol 750 mg 1-07 mg by ity of tablet 00:00: mouth 00 daily. [facility] venlafaxine 2020-0 Yes 75mg Take 75 mg [facility] XR 75 mg 24 1-07 by mouth ity of hr capsule 00:00: every [place] 00 evening. [facility] methocarbam 2020-0 Yes [...] mouth ity of hr capsule 00:00: every [place] 00 evening. [facility] methocarbam 2020-0 Yes 750mg Take 750 U nivers ol 750 mg 1-07 mg by ity of tablet 00:00: mouth 00 daily. [facility] venlafaxine 2020-0 Yes 75mg Take 75 mg [facility] XR 75 mg 24 1-07 by mouth ity of hr capsule 00:00: every [place] 00 evening. [facility] methocarbam 2020-0 Yes 750mg Take 750 U nivers ol 750 mg 1-07 mg by ity of tablet 00:00: mouth [place] 00 daily. [facility] venlafaxine 2020-0 Yes 75mg Take 75 mg [facility] XR 75 mg 24 1-07 by mouth ity of hr capsule 00:00: every [place] 00 evening. [facility] methocarbam 2020-0 Yes 750mg Take 750 U nivers ol 750 mg 1-07 mg by ity of tablet 00:00: mouth 00 daily. [facility] venlafaxine 2020-0 Yes 75mg Take 75 mg [facility] XR 75 mg 24 1-07 by mouth ity of hr capsule 00:00: every [place] 00 evening. [facility] methocarbam 2020-0 Yes 750mg Take 750 U nivers ol 750 mg 1-07 mg by ity of tablet 00:00: mouth 00 daily. [facility] venlafaxine 2020-0 Yes 75mg Take 75 mg [facility] XR 75 mg 24 1-07 by mouth ity of hr capsule 00:00: every [place] 00 evening. [facility] methocarbam 2020-0 Yes 750mg Take 750 U nivers ol 750 mg 1-07 mg by ity of tablet 00:00: mouth 00 daily. [facility] venlafaxine 2020-0 Yes 75mg Take 75 mg [facility] XR 75 mg 24 1-07 by mouth ity of hr capsule 00:00: every [place] 00 evening. [facility] methocarbam 2020-0 Yes [...] mouth ity of hr capsule 00:00: every [place] 00 evening. [facility] methocarbam 2020-0 Yes 750mg Take 750 U nivers ol 750 mg 1-07 mg by ity of tablet 00:00: mouth 00 daily. [facility] venlafaxine 2020-0 Yes 75mg Take 75 mg [facility] XR 75 mg 24 1-07 by mouth ity of hr capsule 00:00: every [place] 00 evening. [facility] methocarbam 2020-0 Yes 750mg Take 750 U nivers ol 750 mg 1-07 mg by ity of tablet 00:00: mouth [place] 00 daily. [facility] venlafaxine 2020-0 Yes [...] mouth ity of hr capsule 00:00: every [place] evening. [facility] methocarbam 2020-0 Yes 750mg Take 750 U nivers ol 750 mg 1-07 mg by ity of tablet 00:00: mouth 00 daily. [facility] venlafaxine 2020-0 Yes 75mg Take 75 mg [facility] XR 75 mg 24 1-07 by mouth ity of hr capsule 00:00: every [place] evening. [facility] methocarbam 2020-0 Yes 750mg Take 750 U nivers ol 750 mg 1-07 mg by ity of tablet 00:00: mouth [place] 00 daily. [facility] venlafaxine 2020-0 Yes 75mg Take 75 mg [facility] XR 75 mg 24 1-07 by mouth ity of hr capsule 00:00: every [place] evening. [facility] atorvasta 2018-10 Yes 20mg Take 20 mg [facility] n 20 mg 2-27 by mouth ity of tablet 00:00: daily. [facility] atorvasta 2018-10 Yes 20mg Take 20 mg [facility] n 20 mg 2-27 by mouth ity of tablet 00:00: daily. [facility] atorvasta 2018-10 Yes 20mg Take 20 mg [facility] n 20 mg 2-27 by mouth ity of tablet 00:00: daily. [facility] atorvasta 2018-10 Yes 20mg Take 20 mg [facility] n 20 mg 2-27 by mouth ity of tablet 00:00: daily. [facility] atorvasta 2018-10 Yes 20mg Take 20 mg [facility] n 20 mg 2-27 by mouth ity of tablet 00:00: daily. [facility] atorvasta 2018-10 Yes 20mg Take 20 mg [facility] n 20 mg 2-27 by mouth ity of tablet 00:00: daily. [facility] atorvasta 2018-10 Yes 20mg Take 20 mg [facility] n 20 mg 2-27 by mouth ity of tablet 00:00: daily. [facility] atorvasta 2018-10 Yes 20mg Take 20 mg [facility] n 20 mg 2-27 by mouth ity of tablet 00:00: daily. [facility] atorvasta 2018-10 Yes 20mg Take 20 mg [facility] n 20 mg 2-27 by mouth ity of tablet 00:00: daily. [facility] atorvasta 2018-10 Yes 20mg Take 20 mg [facility] n 20 mg 2-27 by mouth ity of tablet 00:00: daily. [facility] atorvasta 2018-10 Yes 20mg Take 20 mg [facility] n 20 mg 2-27 by mouth ity of tablet 00:00: daily. [facility] atorvasta 2018-10 Yes 20mg Take 20 mg [facility] n 20 mg 2-27 by mouth ity of tablet 00:00: daily. [facility] atorvasta 2018-10 Yes 20mg Take 20 mg [facility] n 20 mg 2-27 by mouth ity of tablet 00:00: daily. [facility] atorvasta 2018-10 Yes 20mg Take 20 mg [facility] n 20 mg 2-27 by mouth ity of tablet 00:00: daily. [facility] atorvasta 2018-10 Yes 20mg Take 20 mg [facility] n 20 mg 2-27 by mouth ity of tablet 00:00: daily. [facility] atorvasta 2018-10 Yes 20mg Take 20 mg [facility] n 20 mg 2-27 by mouth ity of tablet 00:00: daily. [facility] atorvasta 2018-10 Yes 20mg Take 20 mg [facility] n 20 mg 2-27 by mouth ity of tablet 00:00: daily. [facility] atorvasta 2018-10 Yes 20mg Take 20 mg [facility] n 20 mg 2-27 by mouth ity of tablet 00:00: daily. [facility] atorvasta 2018-10 Yes 20mg Take 20 mg [facility] n 20 mg 2-27 by mouth ity of tablet 00:00: daily. [facility] atorvasta 2018-10 Yes 20mg Take 20 mg [facility] n 20 mg 2-27 by mouth ity of tablet 00:00: daily. [facility] atorvasta 2018-10 Yes 20mg Take 20 mg [facility] n 20 mg 2-27 by mouth ity of tablet 00:00: daily. [facility] atorvasta 2018-10 Yes 20mg Take 20 mg [facility] n 20 mg 2-27 by mouth ity of tablet 00:00: daily. [facility] atorvasta 2018-10 Yes 20mg Take 20 mg [facility] n 20 mg 2-27 by mouth ity of tablet 00:00: daily. [facility] atorvasta 2018-10 Yes 20mg Take 20 mg [facility] n 20 mg 2-27 by mouth ity of tablet 00:00: daily. [facility] Yes 20mg Take 20 mg [facility] n 20 mg 2-27 by mouth ity of tablet 00:00: daily. [facility] Yes 20mg Take 20 mg [facility] n 20 mg 2-27 by mouth ity of tablet 00:00: daily. [facility] atorvasta 2018-10 Yes 20mg Take 20 mg [facility] n 20 mg 2-27 by mouth ity of tablet 00:00: daily. [facility] atorvasta 2018-10 Yes 20mg Take 20 mg [facility] n 20 mg 2-27 by mouth ity of tablet 00:00: daily. [facility] Yes 20mg Take 20 mg [facility] n 20 mg 2-27 by mouth ity of tablet 00:00: daily. [facility] Yes 20mg Take 20 mg [facility] n 20 mg 2-27 by mouth ity of tablet 00:00: daily. [facility] atorvasta 2018-10 Yes 20mg Take 20 mg [facility] n 20 mg 2-27 by mouth ity of tablet 00:00: daily. [facility] atorvasta 2018-10 Yes 20mg Take 20 mg [facility] n 20 mg 2-27 by mouth ity of tablet 00:00: daily. [facility] atorvasta 2018-10 Yes 20mg Take 20 mg [facility] n 20 mg 2-27 by mouth ity of tablet 00:00: daily. [facility] atorvasta 2018-10 Yes 20mg Take 20 mg [facility] n 20 mg 2-27 by mouth ity of tablet 00:00: daily. [facility] atorvasta 2018-10 Yes 20mg Take 20 mg [facility] n 20 mg 2-27 by mouth ity of tablet 00:00: daily. [facility] atorvasta 2018-10 Yes 20mg Take 20 mg [facility] n 20 mg 2-27 by mouth ity of tablet 00:00: daily. [facility] atorvasta 2018-10 Yes 20mg Take 20 mg [facility] n 20 mg 2-27 by mouth ity of tablet 00:00: daily. [facility] atorvasta 2018-10 Yes 20mg Take 20 mg [facility] n 20 mg 2-27 by mouth ity of tablet 00:00: daily. [facility] atorvasta 2018-10 Yes 20mg Take 20 mg [facility] n 20 mg 2-27 by mouth ity of tablet 00:00: daily. [facility] atorvasta 2018-10 Yes 20mg Take 20 mg [facility] n 20 mg 2-27 by mouth ity of tablet 00:00: daily. [facility] atorvasta 2018-10 Yes 20mg Take 20 mg [facility] n 20 mg 2-27 by mouth ity of tablet 00:00: daily. [facility] atorvasta 2018-10 Yes 20mg Take 20 mg [facility] n 20 mg 2-27 by mouth ity of tablet 00:00: daily. [facility] atorvasta 2018-10 Yes 20mg Take 20 mg [facility] n 20 mg 2-27 by mouth ity of tablet 00:00: daily. [facility] atorvasta 2018-10 Yes 20mg Take 20 mg [facility] n 20 mg 2-27 by mouth ity of tablet 00:00: daily. [facility] atorvasta 2018-10 Yes 20mg Take 20 mg [facility] n 20 mg 2-27 by mouth ity of tablet 00:00: daily. [facility] atorvasta 2018-10 Yes 20mg Take 20 mg [facility] n 20 mg 2-27 by mouth ity of tablet 00:00: daily. [facility] atorvasta 2018-10 Yes 20mg Take 20 mg [facility] n 20 mg 2-27 by mouth ity of tablet 00:00: daily. [facility] atorvasta 2018-10 Yes 20mg Take 20 mg [facility] n 20 mg 2-27 by mouth ity of tablet 00:00: daily. [facility] atorvasta 2018-10 Yes 20mg Take 20 mg [facility] n 20 mg 2-27 by mouth ity of tablet 00:00: daily. [facility] atorvasta 2018-10 Yes 20mg Take 20 mg [facility] n 20 mg 2-27 by mouth ity of tablet 00:00: daily. [facility] atorvasta 2018-10 Yes 20mg Take 20 mg [facility] n 20 mg 2-27 by mouth ity of tablet 00:00: daily. [facility] atorvasta 2018-10 Yes 20mg Take 20 mg [facility] n 20 mg 2-27 by mouth ity of tablet 00:00: daily. [facility] atorvastati 2018-10 Yes 20mg Take 20 mg [facility] n 20 mg 2-27 by mouth ity of tablet 00:00: daily. [facility] atorvasta 2018-10 Yes 20mg Take 20 mg [facility] n 20 mg 2-27 by mouth ity of tablet 00:00: daily. [facility] atorvasta 2018-10 Yes 20mg Take 20 mg [facility] n 20 mg 2-27 by mouth ity of tablet 00:00: daily. [facility] atorvasta 2018-10 Yes 20mg Take 20 mg [facility] n 20 mg 2-27 by mouth ity of tablet 00:00: daily. [facility] atorvasta 2018-10 Yes 20mg Take 20 mg [facility] n 20 mg 2-27 by mouth ity of tablet 00:00: daily. [facility] atorvasta 2018-10 Yes 20mg Take 20 mg [facility] n 20 mg 2-27 by mouth ity of tablet 00:00: daily. [facility] atorvasta 2018-10 Yes 20mg Take 20 mg [facility] n 20 mg 2-27 by mouth ity of tablet 00:00: daily. [facility] atorvastati 2018-10 Yes 20mg Take 20 mg [facility] n 20 mg 2-27 by mouth ity of tablet 00:00: daily. [facility] atorvasta 2018-10 Yes 20mg Take 20 mg [facility] n 20 mg 2-27 by mouth ity of tablet 00:00: daily. [facility] atorvasta 2018-10 Yes 20mg Take 20 mg [facility] n 20 mg 2-27 by mouth ity of tablet 00:00: daily. [facility] atorvasta 2018-10 Yes 20mg Take 20 mg [facility] n 20 mg 2-27 by mouth ity of tablet 00:00: daily. [facility] atorvastati 2018-10 Yes 20mg Take 20 mg [facility] n 20 mg 2-27 by mouth ity of tablet 00:00: daily. [facility] levothyroxi 2018-10 Yes 100ug Take 100 U [...] mouth [place] 00 daily. Medical Branch DICLOFENAC 2019- No [id number] 75mg TAKE 1 [facility] 75 mg EC 06-13 05 TABLET BY ity o f tablet 00:00: 04:59 MOUTH 2 [place] 00 :00 (TWO) Medical TIMES Branch DAILY WITH MEALS FOR 30 DAYS. amitriptyli Yes 75mg Take 75 mg [facility] ne 75 mg 7-14 by mouth ity of tablet 21:41: at [place] [address] bedtime. Medical Branch amitriptyli Yes 75mg Take 75 mg [facility] ne 75 mg 7-14 by mouth ity of tablet 21:41: at [place] [address] bedtime. Medical Branch amitriptyli Yes 75mg Take 75 mg [facility] ne 75 mg 7-14 by mouth ity of tablet 21:41: at [place] [address] bedtime. Medical Branch amitriptyli Yes 75mg Take 75 mg [facility] ne 75 mg 7-14 by mouth ity of tablet 21:41: at [place] [address] bedtime. Medical Branch amitriptyli Yes 75mg Take 75 mg [facility] ne 75 mg 7-14 by mouth ity of tablet 21:41: at [place] [address] bedtime. Medical Branch amitriptyli Yes 75mg Take 75 mg [facility] ne 75 mg 7-14 by mouth ity of tablet 21:41: at [place] [address] bedtime. Medical Branch amitriptyli 2018- Yes 75mg Take 75 mg [facility] ne 75 mg 7-14 by mouth ity of tablet 21:41: at [place] [address] bedtime. Medical Branch amitriptyli 0 Yes 75mg Take 75 mg [facility] ne 75 mg 7-14 by mouth ity of tablet 21:41: at [place] [address] bedtime. Medical Branch amitriptyli Yes 75mg Take 75 mg [facility] ne 75 mg 7-14 by mouth ity of tablet 21:41: at [place] [address] bedtime. Medical Branch amitriptyli Yes 75mg Take 75 mg [facility] ne 75 mg 7-14 by mouth ity of tablet 21:41: at [place] [address] bedtime. Medical Branch amitriptyli Yes 75mg Take 75 mg [facility] ne 75 mg 7-14 by mouth ity of tablet 21:41: at [place] [address] bedtime. Medical Branch amitriptyli Yes 75mg Take 75 mg [facility] ne 75 mg 7-14 by mouth ity of tablet 21:41: at [place] [address] bedtime. Medical Branch atorvastati Yes 80mg Take 80 mg [facility] n 80 mg 7-14 by mouth. ity of tablet 21:39: [place] [address] Medical Branch Levothyroxi Yes 100ug Take 100 U nivers ne 100 mcg 7-14 mcg by ity of capsule 21:39: mouth. [place] [address] Medical Branch QUEtiapine Yes 200mg Take 200 [place] 200 mg 7-14 mg by ity of tablet 21:39: mouth at [place] [address] bedtime. Medical Branch metFORMIN Yes 500mg Take 500 Uni vers 500 mg 7-14 mg by ity of tablet 21:39: mouth 2 [place] [address] (two) Medical times Branch daily with meals. rOPINIRole Yes 2mg Take 2 mg [place] 2 mg tablet 7-14 by mouth ity of 21:39: at [place] [address] bedtime. Medical Branch venlafaxine Yes 150mg Take 150 U nivers XR 150 mg 7-14 mg by ity of 24 hr 21:39: mouth [place] capsule 29 daily with Medica l breakfast. Branch venlafaxine Yes 37.5mg Take 37.5 [facility] XR 37.5 mg 7-14 mg by ity of 24 hr 21:39: mouth [place] capsule 29 daily with Medica l breakfast. Branch clonazePAM Yes .5mg Take 0.5 Uni vers 0.5 mg 7-14 mg by ity of tablet 21:39: mouth at [place] [address] bedtime. Medical Branch pantoprazol Yes 40mg Take 40 mg [facility] e 40 mg EC 7-14 by mouth ity o f tablet 21:39: daily. [place] [address] Medical Branch HYDROcodone Yes 1{tbl} Take 1 Un [place] -acetaminop 7-14 tablet by ity of hen (NORCO) 21:39: mouth [place] 10-325 mg 29 every 6 Medical tablet (six) Branch hours as needed. verapamil Yes 120mg Take 120 Uni vers (VERELAN 7-14 mg by ity of PM) 120 mg 21:39: mouth. [place] 24 hr Medical capsule Branch atorvastati Yes 80mg Take 80 mg [facility] n 80 mg 7-14 by mouth. ity of tablet 21:39: [place] [address] Medical Branch Levothyroxi Yes 100ug Take 100 U nivers ne 100 mcg 7-14 mcg by ity of capsule 21:39: mouth. [place] [address] Medical Branch QUEtiapine Yes 200mg Take 200 [place] 200 mg 7-14 mg by ity of tablet 21:39: mouth at [place] [address] bedtime. Medical Branch metFORMIN Yes 500mg Take 500 Uni vers 500 mg 7-14 mg by ity of tablet 21:39: mouth 2 [place] [address] (two) Medical times Branch daily with meals. rOPINIRole Yes 2mg Take 2 mg [place] 2 mg tablet 7-14 by mouth ity of 21:39: at [place] [address] bedtime. Medical Branch venlafaxine Yes 150mg Take [...] by ity of tablet 21:39: mouth at [place] [address] bedtime. Medical Branch pantoprazol Yes 40mg Take 40 mg [facility] e 40 mg EC 7-14 by mouth ity o f tablet 21:39: daily. [place] [address] Medical Branch HYDROcodone Yes 1{tbl} Take 1 Un [place] -acetaminop 7-14 tablet by ity of hen (NORCO) 21:39: mouth [place] 10-325 mg 29 every 6 Medical tablet (six) Branch hours as needed. verapamil 2019-0 Yes 120mg Take 120 Uni vers (VERELAN 7-14 mg by ity of PM) 120 mg 21:39: mouth. [place] 24 hr 29 Medical capsule Branch atorvastati Yes 80mg Take 80 mg [facility] n 80 mg 7-14 by mouth. ity of tablet 21:39: [place] [address] Medical Branch Levothyroxi Yes 100ug Take 100 U nivers ne 100 mcg 7-14 mcg by ity of capsule 21:39: mouth. [place] [address] Medical Branch QUEtiapine Yes 200mg Take 200 [place] 200 mg 7-14 mg by ity of tablet 21:39: mouth at [place] [address] bedtime. Medical Branch metFORMIN Yes 500mg Take 500 Uni vers 500 mg 7-14 mg by ity of tablet 21:39: mouth 2 [place] [address] (two) Medical times Branch daily with meals. rOPINIRole Yes 2mg Take 2 mg [place] 2 mg tablet 7-14 by mouth ity of 21:39: at [place] [address] bedtime. Medical Branch venlafaxine Yes 150mg Take [...] by ity of tablet 21:39: mouth at [place] [address] bedtime. Medical Branch pantoprazol Yes 40mg Take 40 mg [facility] e 40 mg EC 7-14 by mouth ity o f tablet 21:39: daily. [place] [address] Medical Branch HYDROcodone Yes 1{tbl} Take 1 Un [place] -acetaminop 7-14 tablet by ity of hen (NORCO) 21:39: mouth [place] 10-325 mg 29 every 6 Medical tablet (six) Branch hours as needed. verapamil Yes 120mg Take 120 Uni vers (VERELAN 7-14 mg by ity of PM) 120 mg 21:39: mouth. [place] 24 hr 29 Medical capsule Branch atorvastati Yes 80mg Take 80 mg [facility] n 80 mg 7-14 by mouth. ity of tablet 21:39: [place] [address] Medical Branch Levothyroxi Yes 100ug Take 100 U nivers ne 100 mcg 7-14 mcg by ity of capsule 21:39: mouth. [place] [address] Medical Branch QUEtiapine Yes 200mg Take 200 [place] 200 mg 7-14 mg by ity of tablet 21:39: mouth at [place] [address] bedtime. Medical Branch metFORMIN Yes 500mg Take 500 Uni vers 500 mg 7-14 mg by ity of tablet 21:39: mouth 2 [place] [address] (two) Medical times Branch daily with meals. rOPINIRole Yes 2mg Take 2 mg [place] 2 mg tablet 7-14 by mouth ity of 21:39: at [place] [address] bedtime. Medical Branch venlafaxine Yes 150mg Take 150 U nivers XR 150 mg 7-14 mg by ity of 24 hr 21:39: mouth [place] capsule 29 daily with Medica l breakfast. Branch venlafaxine Yes 37.5mg Take 37.5 [facility] XR 37.5 mg 7-14 mg by ity of 24 hr 21:39: mouth [place] capsule 29 daily with Medica l breakfast. Branch clonazePAM Yes .5mg Take 0.5 Uni vers 0.5 mg 7-14 mg by ity of tablet 21:39: mouth at [place] [address] bedtime. Medical Branch pantoprazol Yes 40mg Take 40 mg [facility] e 40 mg EC 7-14 by mouth ity o f tablet 21:39: daily. [place] [address] Medical Branch HYDROcodone Yes 1{tbl} Take 1 Un [place] -acetaminop 7-14 tablet by ity of hen (NORCO) 21:39: mouth [place] 10-325 mg 29 every 6 Medical tablet (six) Branch hours as needed. verapamil Yes 120mg Take 120 Uni vers (VERELAN 7-14 mg by ity of PM) 120 mg 21:39: mouth. [place] 24 hr Medical capsule Branch atorvastati Yes 80mg Take 80 mg [facility] n 80 mg 7-14 by mouth. ity of tablet 21:39: [place] [address] Medical Branch Levothyroxi Yes 100ug Take 100 U nivers ne 100 mcg 7-14 mcg by ity of capsule 21:39: mouth. [place] [address] Medical Branch QUEtiapine Yes 200mg Take 200 [place] 200 mg 7-14 mg by ity of tablet 21:39: mouth at [place] [address] bedtime. Medical Branch metFORMIN Yes 500mg Take 500 Uni vers 500 mg 7-14 mg by ity of tablet 21:39: mouth 2 [place] [address] (two) Medical times Branch daily with meals. rOPINIRole Yes 2mg Take 2 mg [place] 2 mg tablet 7-14 by mouth ity of 21:39: at [place] [address] bedtime. Medical Branch venlafaxine Yes 150mg Take 150 U nivers XR 150 mg 7-14 mg by ity of 24 hr 21:39: mouth [place] capsule 29 daily with Medica l breakfast. Branch venlafaxine Yes 37.5mg Take 37.5 [facility] XR 37.5 mg 7-14 mg by ity of 24 hr 21:39: mouth [place] capsule 29 daily with Medica l breakfast. Branch clonazePAM Yes .5mg Take 0.5 Uni vers 0.5 mg 7-14 mg by ity of tablet 21:39: mouth at [place] [address] bedtime. Medical Branch pantoprazol Yes 40mg Take 40 mg [facility] e 40 mg EC 7-14 by mouth ity o f tablet 21:39: daily. [place] [address] Medical Branch HYDROcodone Yes 1{tbl} Take 1 Un [place] -acetaminop 7-14 tablet by ity of hen (NORCO) 21:39: mouth [place] 10-325 mg 29 every 6 Medical tablet (six) Branch hours as needed. verapamil Yes 120mg Take 120 Uni vers (VERELAN 7-14 mg by ity of PM) 120 mg 21:39: mouth. [place] 24 hr Medical capsule Branch atorvastati Yes 80mg Take 80 mg [facility] n 80 mg 7-14 by mouth. ity of tablet 21:39: [place] [address] Medical Branch Levothyroxi Yes 100ug Take 100 U nivers ne 100 mcg 7-14 mcg by ity of capsule 21:39: mouth. [place] [address] Medical Branch QUEtiapine Yes 200mg Take 200 [place] 200 mg 7-14 mg by ity of tablet 21:39: mouth at [place] [address] bedtime. Medical Branch metFORMIN Yes 500mg Take 500 Uni vers 500 mg 7-14 mg by ity of tablet 21:39: mouth 2 [place] [address] (two) Medical times Branch daily with meals. rOPINIRole Yes 2mg Take 2 mg [place] 2 mg tablet 7-14 by mouth ity of 21:39: at [place] [address] bedtime. Medical Branch venlafaxine Yes 150mg Take [...] by ity of tablet 21:39: mouth at [place] [address] bedtime. Medical Branch HYDROcodone Yes 1{tbl} Take 1 Un [place] -acetaminop 7-14 tablet by ity of hen (NORCO) 21:39: mouth [place] 10-325 mg 29 every 6 Medical tablet (six) Branch hours as needed. verapamil Yes 120mg Take 120 Uni vers (VERELAN 7-14 mg by ity of PM) 120 mg 21:39: mouth. [place] 24 hr 29 Medical capsule Branch atorvastati Yes 80mg Take 80 mg [facility] n 80 mg 7-14 by mouth. ity of tablet 21:39: [place] [address] Medical Branch Levothyroxi Yes 100ug Take 100 U nivers ne 100 mcg 7-14 mcg by ity of capsule 21:39: mouth. [place] [address] Medical Branch QUEtiapine Yes 200mg Take 200 [place] 200 mg 7-14 mg by ity of tablet 21:39: mouth at [place] [address] bedtime. Medical Branch metFORMIN Yes 500mg Take 500 Uni vers 500 mg 7-14 mg by ity of tablet 21:39: mouth 2 [place] [address] (two) Medical times Branch daily with meals. rOPINIRole Yes 2mg Take 2 mg [place] 2 mg tablet 7-14 by mouth ity of 21:39: at [place] [address] bedtime. Medical Branch venlafaxine Yes 150mg Take [...] by ity of tablet 21:39: mouth at [place] [address] bedtime. Medical Branch pantoprazol Yes 40mg Take 40 mg [facility] e 40 mg EC 7-14 by mouth ity o f tablet 21:39: daily. [place] [address] Medical Branch HYDROcodone Yes 1{tbl} Take 1 Un [place] -acetaminop 7-14 tablet by ity of hen (NORCO) 21:39: mouth [place] 10-325 mg 29 every 6 Medical tablet (six) Branch hours as needed. verapamil Yes 120mg Take 120 Uni vers (VERELAN 7-14 mg by ity of PM) 120 mg 21:39: mouth. [place] 24 hr Medical capsule Branch atorvastati Yes 80mg Take 80 mg [facility] n 80 mg 7-14 by mouth. ity of tablet 21:39: [place] [address] Medical Branch Levothyroxi Yes 100ug Take 100 U nivers ne 100 mcg 7-14 mcg by ity of capsule 21:39: mouth. [place] [address] Medical Branch QUEtiapine Yes 200mg Take 200 [place] 200 mg 7-14 mg by ity of tablet 21:39: mouth at [place] [address] bedtime. Medical Branch metFORMIN Yes 500mg Take 500 Uni vers 500 mg 7-14 mg by ity of tablet 21:39: mouth 2 [place] [address] (two) Medical times Branch daily with meals. rOPINIRole Yes 2mg Take 2 mg [place] 2 mg tablet 7-14 by mouth ity of 21:39: at [place] [address] bedtime. Medical Branch venlafaxine Yes 150mg Take [...] by ity of tablet 21:39: mouth at [place] [address] bedtime. Medical Branch pantoprazol Yes 40mg Take 40 mg [facility] e 40 mg EC 7-14 by mouth ity o f tablet 21:39: daily. [place] [address] Medical Branch HYDROcodone Yes 1{tbl} Take 1 Un [place] -acetaminop 7-14 tablet by ity of hen (NORCO) 21:39: mouth [place] 10-325 mg 29 every 6 Medical tablet (six) Branch hours as needed. verapamil Yes 120mg Take 120 Uni vers (VERELAN 7-14 mg by ity of PM) 120 mg 21:39: mouth. [place] 24 hr Medical capsule Branch atorvastati Yes 80mg Take 80 mg [facility] n 80 mg 7-14 by mouth. ity of tablet 21:39: [place] [address] Medical Branch Levothyroxi Yes 100ug Take 100 U nivers ne 100 mcg 7-14 mcg by ity of capsule 21:39: mouth. [place] [address] Medical Branch QUEtiapine Yes 200mg Take 200 [place] 200 mg 7-14 mg by ity of tablet 21:39: mouth at [place] [address] bedtime. Medical Branch metFORMIN Yes 500mg Take 500 Uni vers 500 mg 7-14 mg by ity of tablet 21:39: mouth 2 [place] [address] (two) Medical times Branch daily with meals. rOPINIRole Yes 2mg Take 2 mg [place] 2 mg tablet 7-14 by mouth ity of 21:39: at [place] [address] bedtime. Medical Branch venlafaxine Yes 150mg Take 150 U nivers XR 150 mg 7-14 mg by ity of 24 hr 21:39: mouth [place] capsule 29 daily with Medica l breakfast. Branch venlafaxine Yes 37.5mg Take 37.5 [facility] XR 37.5 mg 7-14 mg by ity of 24 hr 21:39: mouth [place] capsule 29 daily with Medica l breakfast. Branch clonazePAM 2019-0 Yes .5mg Take 0.5 Uni vers 0.5 mg 7-14 mg by ity of tablet 21:39: mouth at [place] [address] bedtime. Medical Branch pantoprazol Yes 40mg Take 40 mg [facility] e 40 mg EC 7-14 by mouth ity o f tablet 21:39: daily. [place] [address] Medical Branch HYDROcodone Yes 1{tbl} Take 1 [facility] [place] -acetaminop 7-14 tablet by ity of hen (NORCO) 21:39: mouth [place] 10-325 mg 29 every 6 Medical tablet (six) Branch hours as needed. verapamil Yes 120mg Take 120 Uni vers (VERELAN 7-14 mg by ity of PM) 120 mg 21:39: mouth. [place] 24 hr Medical capsule Branch atorvastati Yes 80mg Take 80 mg [facility] n 80 mg 7-14 by mouth. ity of tablet 21:39: [place] [address] Medical Branch Levothyroxi Yes 100ug Take 100 U nivers ne 100 mcg 7-14 mcg by ity of capsule 21:39: mouth. [place] [address] Medical Branch QUEtiapine Yes 200mg Take 200 [place] 200 mg 7-14 mg by ity of tablet 21:39: mouth at [place] [address] bedtime. Medical Branch metFORMIN Yes 500mg Take 500 Uni vers 500 mg 7-14 mg by ity of tablet 21:39: mouth 2 [place] [address] (two) Medical times Branch daily with meals. rOPINIRole Yes 2mg Take 2 mg [place] 2 mg tablet 7-14 by mouth ity of 21:39: at [place] [address] bedtime. Medical Branch venlafaxine Yes 150mg Take [...] by ity of tablet 21:39: mouth at [place] [address] bedtime. Medical Branch pantoprazol Yes 40mg Take 40 mg [facility] e 40 mg EC 7-14 by mouth ity o f tablet 21:39: daily. [place] [address] Medical Branch HYDROcodone Yes 1{tbl} Take 1 [facility] [place] -acetaminop 7-14 tablet by ity of hen (NORCO) 21:39: mouth [place] 10-325 mg 29 every 6 Medical tablet (six) Branch hours as needed. verapamil Yes 120mg Take 120 Uni vers (VERELAN 7-14 mg by ity of PM) 120 mg 21:39: mouth. [place] 24 hr Medical capsule Branch atorvastati Yes 80mg Take 80 mg [facility] n 80 mg 7-14 by mouth. ity of tablet 21:39: [place] [address] Medical Branch Levothyroxi Yes 100ug Take 100 U nivers ne 100 mcg 7-14 mcg by ity of capsule 21:39: mouth. [place] [address] Medical Branch QUEtiapine Yes 200mg Take 200 [place] 200 mg 7-14 mg by ity of tablet 21:39: mouth at [place] [address] bedtime. Medical Branch metFORMIN Yes 500mg Take 500 Uni vers 500 mg 7-14 mg by ity of tablet 21:39: mouth 2 [place] [address] (two) Medical times Branch daily with meals. rOPINIRole Yes 2mg Take 2 mg [place] 2 mg tablet 7-14 by mouth ity of 21:39: at [place] [address] bedtime. Medical Branch venlafaxine Yes 150mg Take 150 U nivers XR 150 mg 7-14 mg by ity of 24 hr 21:39: mouth [place] capsule 29 daily with Medica l breakfast. Branch venlafaxine Yes 37.5mg Take 37.5 [facility] XR 37.5 mg 7-14 mg by ity of 24 hr 21:39: mouth [place] capsule 29 daily with Medica l breakfast. Branch clonazePAM Yes .5mg Take 0.5 Uni vers 0.5 mg 7-14 mg by ity of tablet 21:39: mouth at [place] [address] bedtime. Medical Branch pantoprazol Yes 40mg Take 40 mg [facility] e 40 mg EC 7-14 by mouth ity o f tablet 21:39: daily. [place] [address] Medical Branch HYDROcodone Yes 1{tbl} Take 1 [facility] [place] -acetaminop 7-14 tablet by ity of hen (NORCO) 21:39: mouth [place] 10-325 mg 29 every 6 Medical tablet (six) Branch hours as needed. verapamil Yes 120mg Take 120 Uni vers (VERELAN 7-14 mg by ity of PM) 120 mg 21:39: mouth. [place] 24 hr 29 Medical capsule Branch atorvastati Yes 80mg Take 80 mg [facility] n 80 mg 7-14 by mouth. ity of tablet 21:39: [place] [address] Medical Branch Levothyroxi Yes 100ug Take 100 U nivers ne 100 mcg 7-14 mcg by ity of capsule 21:39: mouth. [place] [address] Medical Branch QUEtiapine Yes 200mg Take 200 [place] 200 mg 7-14 mg by ity of tablet 21:39: mouth at [place] [address] bedtime. Medical Branch metFORMIN Yes 500mg Take 500 Uni vers 500 mg 7-14 mg by ity of tablet 21:39: mouth 2 [place] [address] (two) Medical times Branch daily with meals. rOPINIRole Yes 2mg Take 2 mg [place] 2 mg tablet 7-14 by mouth ity of 21:39: at [place] [address] bedtime. Medical Branch venlafaxine Yes 150mg Take [...] by ity of tablet 21:39: mouth at [place] [address] bedtime. Medical Branch pantoprazol Yes 40mg Take 40 mg [facility] e 40 mg EC 7-14 by mouth ity o f tablet 21:39: daily. [place] [address] Medical Branch HYDROcodone 0 Yes 1{tbl} Take 1 [facility] [place] -acetaminop 7-14 tablet by ity of hen (NORCO) 21:39: mouth [place] 10-325 mg 29 every 6 Medical tablet (six) Branch hours as needed. verapamil Yes 120mg Take 120 Uni vers (VERELAN 7-14 mg by ity of PM) 120 mg 21:39: mouth. [place] 24 hr 29 Medical capsule Branch atorvastati 2018- Yes 80mg Take 80 mg [facility] n 80 mg 7-14 by mouth. ity of tablet 21:39: [place] [address] Medical Branch Levothyroxi Yes 100ug Take 100 U nivers ne 100 mcg 7-14 mcg by ity of capsule 21:39: mouth. [place] [address] Medical Branch QUEtiapine Yes 200mg Take 200 [place] 200 mg 7-14 mg by ity of tablet 21:39: mouth at [place] [address] bedtime. Medical Branch metFORMIN 0 Yes 500mg Take 500 Uni vers 500 mg 7-14 mg by ity of tablet 21:39: mouth 2 [place] [address] (two) Medical times Branch daily with meals. rOPINIRole Yes 2mg Take 2 mg [place] 2 mg tablet 7-14 by mouth ity of 21:39: at [place] [address] bedtime. Medical Branch venlafaxine Yes 150mg Take [...] by ity of tablet 21:39: mouth at [place] [address] bedtime. Medical Branch pantoprazol Yes 40mg Take 40 mg [facility] e 40 mg EC 7-14 by mouth ity o f tablet 21:39: daily. [place] [address] Medical Branch HYDROcodone 2018-0 Yes 1{tbl} Take 1 [place] -acetaminop 7-14 tablet by ity of hen (NORCO) 21:39: mouth [place] 10-325 mg 29 every 6 Medical tablet (six) Branch hours as needed. verapamil Yes 120mg Take 120 Uni vers (VERELAN 7-14 mg by ity of PM) 120 mg 21:39: mouth. [place] 24 hr Medical capsule Branch traZODONE 2018-0 2019- No 100mg Take 100 [place] 100 mg 7-14 07-14 mg by ity of tablet 21:39: 00:00 mouth at [place] 01 :00 bedtime. Medical Branch acetaminoph 2019- 2019- No 1{tbl} Take 1 U nivers en-codeine 7-14 07-14 tablet by ity of 300-30 mg 21:36: 00:00 mouth 2 [place] tablet 15 :00 (two) Medical times Branch daily. cyclobenzap 2019- Yes [id number] 5mg Take 1 [facility] rine 5 mg 7-14 tablet by ity o f tablet 00:00: mouth 3 00 (three) Medical times Branch daily. cyclobenzap 2019-0 Yes [id number] 5mg Take 1 [facility] rine 5 mg 7-14 tablet by ity o f tablet 00:00: mouth 3 (three) Medical times Branch daily. cyclobenzap 2019-0 Yes [id number] 5mg Take 1 [facility] rine 5 mg 7-14 tablet by ity o f tablet 00:00: mouth 3 (three) Medical times Branch daily. cyclobenzap 2018- Yes [id number] 5mg Take 1 [facility] rine 5 mg 7-14 tablet by ity o f tablet 00:00: mouth 3 (three) Medical times Branch daily. cyclobenzap 2019-0 Yes [id number] 5mg Take 1 [facility] rine 5 mg 7-14 tablet by ity o f tablet 00:00: mouth 3 (three) Medical times Branch daily. cyclobenzap 2019-0 Yes [id number] 5mg Take 1 [facility] rine 5 mg 7-14 tablet by ity o f tablet 00:00: mouth 3 (three) Medical times Branch daily. cyclobenzap 2019-0 Yes [id number] 5mg Take 1 [facility] rine 5 mg 7-14 tablet by ity o f tablet 00:00: mouth 3 (three) Medical times Branch daily. cyclobenzap 2019-0 Yes [id number] 5mg Take 1 [facility] rine 5 mg 7-14 tablet by ity o f tablet 00:00: mouth 3 (three) Medical times Branch daily. cyclobenzap 2019-0 Yes [id number] 5mg Take 1 [facility] rine 5 mg 7-14 tablet by ity o f tablet 00:00: mouth 3 (three) Medical times Branch daily. cyclobenzap 2019-0 Yes [id number] 5mg Take 1 [facility] rine 5 mg 7-14 tablet by ity o f tablet 00:00: mouth 3 00 (three) Medical times Branch daily. cyclobenzap 2018-0 Yes [id number] 5mg Take 1 [facility] rine 5 mg 7-14 tablet by ity o f tablet 00:00: mouth 3 00 (three) Medical times Branch daily. cyclobenzap 2018-0 Yes [id number] 5mg Take 1 [facility] rine 5 mg 7-14 tablet by ity o f tablet 00:00: mouth 3 00 (three) Medical times Branch daily. cyclobenzap 2018-0 Yes [id number] 5mg Take 1 [facility] rine 5 mg 7-14 tablet by ity o f tablet 00:00: mouth 3 (three) Medical times Branch daily. cyclobenzap 2018-0 Yes [id number] 5mg Take 1 [facility] rine 5 mg 7-14 tablet by ity o f tablet 00:00: mouth 3 (three) Medical times Branch daily. cyclobenzap 2018-0 Yes [id number] 5mg Take 1 [facility] rine 5 mg 7-14 tablet by ity o f tablet 00:00: mouth 3 (three) Medical times Branch daily. cyclobenzap 2018-0 Yes [id number] 5mg Take 1 [facility] rine 5 mg 7-14 tablet by ity o f tablet 00:00: mouth 3 (three) Medical times Branch daily. cyclobenzap 2018-0 Yes [id number] 5mg Take 1 [facility] rine 5 mg 7-14 tablet by ity o f tablet 00:00: mouth 3 (three) Medical times Branch daily. cyclobenzap 2018-0 Yes [id number] 5mg Take 1 [facility] rine 5 mg 7-14 tablet by ity o f tablet 00:00: mouth 3 00 (three) Medical times Branch daily. cyclobenzap 2018-0 Yes [id number] 5mg Take 1 [facility] rine 5 mg 7-14 tablet by ity o f tablet 00:00: mouth 3 00 (three) Medical times Branch daily. cyclobenzap 2018-0 Yes [id number] 5mg Take 1 [facility] rine 5 mg 7-14 tablet by ity o f tablet 00:00: mouth 3 00 (three) Medical times Branch daily. cyclobenzap 2018-0 Yes [id number] 5mg Take 1 Univers rine 5 mg 7-14 tablet by ity o f tablet 00:00: mouth 3 [place] 00 (three) Medical times Branch daily. cyclobenzap 2018- Yes [id number] 5mg Take 1 Univers rine 5 mg 7-14 tablet by ity o f tablet 00:00: mouth 3 [place] 00 (three) Medical times Branch daily. cyclobenzap 2018- Yes [id number] 5mg Take 1 Univers rine 5 mg 7-14 tablet by ity o f tablet 00:00: mouth 3 [place] 00 (three) Medical times Branch daily. cyclobenzap Yes [id number] 5mg Take 1 Univers rine 5 mg 7-14 tablet by ity o f tablet 00:00: mouth 3 [place] 00 (three) Medical times Branch daily. cyclobenzap 2019- No [id number] 5mg Take 1 Univers rine 5 mg 7-14 02-14 tablet by ity of tablet 00:00: 00:00 mouth 3 [place] 00 :00 (three) Medical times Branch daily. cyclobenzap 2019- No [id number] 5mg Take 1 Univers rine 5 mg 7-14 02-14 tablet by ity of tablet 00:00: 00:00 mouth 3 [place] 00 :00 (three) Medical times Branch daily. Breo Breo 2019- No Reji 1 puff Common Ellipta Ellipta 02-27 08-06 [facility] 00:00: 00:00 - [facility] 00 :00 [facility] SODIUM 2018- No by Dental Unive rs FLUORIDE 4-16 -16 route. ity of (PREVIDENT 17:01: 00:00 [place] 5000 48 :00 Medical BOOSTER Branch DENTAL) mirtazapine 2019- No 30mg Take 30 mg Univers (REMERON 01-01 by mouth ity of BERTHA-TAB) 30 15:40: 00:00 at [place] mg 13 :00 bedtime. Medical disintegrat Branch ing tablet hydrOXYzine 2018- No 25mg Take 25 mg Univers (ATARAX) 25 01-01 by mouth ity of mg tablet 15:38: 00:00 every 6 [place] :[place] (six) Medical hours. Branch hydrochloro 2019- No 12.5mg Take 12.5 Univers thiazide 3-12 03-12 mg by ity of (ESIDRIX) 15:38: 00:00 mouth [place] 12.5 mg 08 :00 daily. Medical capsule Branch cycloSPORIN 2019- No 1[drp] Place 1 Univers E 01-01 Drop in ity of (RESTASIS) 15:36: 00:00 [place] 0.05 % 49 :00 every 12 Medical drops (twelve) Branch hours. aspirin 81 2019- No 81mg Take 81 mg Univers [...] 02 :00 Medical Branch bacitracin 2019- No [id number] Apply to Univers 500 11-07 affected ity of unit/gram 00:00: 00:00 area(s) 3 [place] ointment 00 :00 (three) Medical times Branch daily. amoxicillin 2018- No 1{tbl} Take 1 U nivers -clavulanat 10-30 tablet by it y of e [id number] 00:00: 00:00 mouth [place] mg per 00 :00 every 12 Medical tablet (twelve) Branch hours. amitriptyli 2017-10- No Unive rs ne 50 mg 001-01 ity of tablet 00:00: 00:00 [place] 00 :00 Medical Branch BREO Yes 1{puff} Inhale 1 Univer s ELLIPTA 6-03 Puff as ity of 100-25 00:00: needed. [place] mcg/dose 00 Medical DsDv Branch BREO Yes Univers ELLIPTA 6-03 ity of 100-25 00:00: [place] mcg/dose 00 Medical DsDv Branch BREO Yes 1{puff} Inhale 1 Univer s ELLIPTA 6-03 Puff as ity of 100-25 00:00: needed. [place] mcg/dose 00 Medical [facility] Branch [facility] 2016-0 Yes 1{puff} Inhale 1 Univer s ELLIPTA 6-03 Puff as ity of 100-25 00:00: needed. [place] mcg/dose 00 Medical DsDv Branch [facility] 2015-0 Yes 1{puff} Inhale 1 Univer s ELLIPTA 6-03 Puff as ity of 100-25 00:00: needed. [place] mcg/dose 00 Medical D[facility]Dv Branch [facility] 2015-0 Yes 1{puff} Inhale 1 Univer s ELLIPTA 6-03 Puff as ity of 100-25 00:00: needed. [place] mcg/dose 00 Medical DsDv Branch [facility] 2015-0 Yes 1{puff} Inhale 1 Univer s ELLIPTA 6-03 Puff as ity of 100-25 00:00: needed. [place] mcg/dose 00 Medical DsDv Branch [facility] 0 Yes 1{puff} Inhale 1 Univer s ELLIPTA 6-03 Puff as ity of 100-25 00:00: needed. [place] mcg/dose 00 Medical DsDv Branch [facility] 2015-0 Yes 1{puff} Inhale 1 Univer s ELLIPTA 6-03 Puff as ity of 100-25 00:00: needed. [place] mcg/dose 00 Medical DsDv Branch [facility] 2015-0 Yes 1{puff} Inhale 1 Univer s ELLIPTA 6-03 Puff as ity of 100-25 00:00: needed. [place] mcg/dose 00 Medical DsDv Branch [facility] 2016-0 Yes Univers ELLIPTA 6-03 ity of 100-25 00:00: [place] mcg/dose 00 Medical DsDv Branch [facility] 2016-0 Yes 1{puff} Inhale 1 Univer s ELLIPTA 6-03 Puff as ity of 100-25 00:00: needed. [place] mcg/dose 00 Medical DsDv Branch [facility] 2015-0 Yes 1{puff} Inhale 1 Univer s ELLIPTA 6-03 Puff as ity of 100-25 00:00: needed. [place] mcg/dose 00 Medical DsDv Branch [facility] 2015-0 Yes 1{puff} Inhale 1 Univer s ELLIPTA 6-03 Puff as ity of 100-25 00:00: needed. [place] mcg/dose 00 Medical DsDv Branch [facility] 20160 Yes 1{puff} Inhale 1 Univer s ELLIPTA 6-03 Puff as ity of 100-25 00:00: needed. [place] mcg/dose 00 Medical DsDv Branch [facility] 0 Yes 1{puff} Inhale 1 Univer s ELLIPTA 6-03 Puff as ity of 100-25 00:00: needed. [place] mcg/dose 00 Medical DsDv Branch [facility] 0 Yes 1{puff} Inhale 1 Univer s ELLIPTA 6-03 Puff as ity of 100-25 00:00: needed. [place] mcg/dose 00 Medical DsDv Branch [facility] 0 Yes 1{puff} Inhale 1 Univer s ELLIPTA 6-03 Puff as ity of 100-25 00:00: needed. [place] mcg/dose 00 Medical DsDv Branch [facility] 0 Yes Univers ELLIPTA 6-03 ity of 100-25 00:00: [place] mcg/dose 00 Medical DsDv Branch [facility] 0 Yes 1{puff} Inhale 1 Univer s ELLIPTA 6-03 Puff as ity of 100-25 00:00: needed. [place] mcg/dose 00 Medical DsDv Branch [facility] 0 Yes 1{puff} Inhale 1 Univer s ELLIPTA 6-03 Puff as ity of 100-25 00:00: needed. [place] mcg/dose 00 Medical Dv Branch [facility] 0 Yes 1{puff} Inhale 1 Univer s ELLIPTA 6-03 Puff as ity of 100-25 00:00: needed. [place] mcg/dose 00 Medical DsDv Branch [facility] 0 Yes 1{puff} Inhale 1 Univer s ELLIPTA 6-03 Puff as ity of 100-25 00:00: needed. [place] mcg/dose 00 Medical DsDv Branch [facility] 0 Yes 1{puff} Inhale 1 Univer s ELLIPTA 6-03 Puff as ity of 100-25 00:00: needed. [place] mcg/dose 00 Medical DsDv Branch [facility] 0 Yes 1{puff} Inhale 1 Univer s ELLIPTA 6-03 Puff as ity of 100-25 00:00: needed. [place] mcg/dose 00 Medical DsDv Branch BREO 2016-0 Yes Univers ELLIPTA 6-03 ity of 100-25 00:00: [place] mcg/dose 00 Medical DsDv Branch [facility] 2016-0 Yes 1{puff} Inhale 1 Univer s ELLIPTA 6-03 Puff as ity of 100-25 00:00: needed. [place] mcg/dose 00 Medical DsDv Branch [facility] 2016-0 Yes 1{puff} Inhale 1 Univer s ELLIPTA 6-03 Puff as ity of 100-25 00:00: needed. [place] mcg/dose 00 Medical DsDv Branch [facility] 2016-0 Yes 1{puff} Inhale 1 Univer s ELLIPTA 6-03 Puff as ity of 100-25 00:00: needed. [place] mcg/dose 00 Medical DsDv Branch [facility] 2015-0 Yes 1{puff} Inhale 1 Univer s ELLIPTA 6-03 Puff as ity of 100-25 00:00: needed. [place] mcg/dose 00 Medical DsDv Branch [facility] 2016-0 Yes 1{puff} Inhale 1 Univer s ELLIPTA 6-03 Puff as ity of 100-25 00:00: needed. [place] mcg/dose 00 Medical DsDv Branch [facility] 2016-0 Yes 1{puff} Inhale 1 Univer s ELLIPTA 6-03 Puff as ity of 100-25 00:00: needed. [place] mcg/dose 00 Medical DsDv Branch [facility] 2016-0 Yes Univers ELLIPTA 6-03 ity of 100-25 00:00: [place] mcg/dose 00 Medical DsDv Branch [facility] 2016-0 Yes 1{puff} Inhale 1 Univer s ELLIPTA 6-03 Puff as ity of 100-25 00:00: needed. [place] mcg/dose 00 Medical DsDv Branch [facility] 2016-0 Yes 1{puff} Inhale 1 Univer s ELLIPTA 6-03 Puff as ity of 100-25 00:00: needed. [place] mcg/dose 00 Medical DsDv Branch [facility] 2016-0 Yes 1{puff} Inhale 1 Univer s ELLIPTA 6-03 Puff as ity of 100-25 00:00: needed. [place] mcg/dose 00 Medical DsDv Branch [facility] 2016-0 Yes 1{puff} Inhale 1 Univer s ELLIPTA 6-03 Puff as ity of 100-25 00:00: needed. [place] mcg/dose 00 Medical DsDv Branch [facility] 2016-0 Yes 1{puff} Inhale 1 Univer s ELLIPTA 6-03 Puff as ity of 100-25 00:00: needed. [place] mcg/dose 00 Medical DsDv Branch [facility] 2015-0 Yes 1{puff} Inhale 1 Univer s ELLIPTA 6-03 Puff as ity of 100-25 00:00: needed. [place] mcg/dose 00 Medical DsDv Branch [facility] 2015-0 Yes 1{puff} Inhale 1 Univer s ELLIPTA 6-03 Puff as ity of 100-25 00:00: needed. [place] mcg/dose 00 Medical DsDv Branch [facility] 2015-0 Yes 1{puff} Inhale 1 Univer s ELLIPTA 6-03 Puff as ity of 100-25 00:00: needed. [place] mcg/dose 00 Medical DsDv Branch [facility] 2015-0 Yes Univers ELLIPTA 6-03 ity of 100-25 00:00: [place] mcg/dose 00 Medical DsDv Branch [facility] 2015-0 Yes 1{puff} Inhale 1 Univer s ELLIPTA 6-03 Puff as ity of 100-25 00:00: needed. [place] mcg/dose 00 Medical DsDv Branch [facility] 0 Yes 1{puff} Inhale 1 Univer s ELLIPTA 6-03 Puff as ity of 100-25 00:00: needed. [place] mcg/dose 00 Medical DsDv Branch [facility] 2015-0 Yes 1{puff} Inhale 1 Univer s ELLIPTA 6-03 Puff as ity of 100-25 00:00: needed. [place] mcg/dose 00 Medical DsDv Branch [facility] 2015-0 Yes 1{puff} Inhale 1 Univer s ELLIPTA 6-03 Puff as ity of 100-25 00:00: needed. [place] mcg/dose 00 Medical DsDv Branch [facility] 2015-0 Yes 1{puff} Inhale 1 Univer s ELLIPTA 6-03 Puff as ity of 100-25 00:00: needed. [place] mcg/dose 00 Medical DsDv Branch [facility] 2016-0 Yes Univers ELLIPTA 6-03 ity of 100-25 00:00: [place] mcg/dose 00 Medical DsDv Branch [facility] 2015-0 Yes Univers ELLIPTA 6-03 ity of 100-25 00:00: [place] mcg/dose 00 Medical DsDv Branch [facility] 2016-0 Yes Univers ELLIPTA 6-03 ity of 100-25 00:00: [place] mcg/dose 00 Medical DsDv Branch [facility] 2016-0 Yes Univers ELLIPTA 6-03 ity of 100-25 00:00: [place] mcg/dose 00 Medical DsDv Branch [facility] 2016-0 Yes 1{puff} Inhale 1 Univer s ELLIPTA 6-03 Puff as ity of 100-25 00:00: needed. [place] mcg/dose 00 Medical DsDv Branch [facility] 2016-0 Yes 1{puff} Inhale 1 Univer s ELLIPTA 6-03 Puff as ity of 100-25 00:00: needed. [place] mcg/dose 00 Medical DsDv Branch [facility] 2015-0 Yes Univers ELLIPTA 6-03 ity of 100-25 00:00: [place] mcg/dose 00 Medical DsDv Branch [facility] 2016-0 Yes 1{puff} Inhale 1 Univer s ELLIPTA 6-03 Puff as ity of 100-25 00:00: needed. [place] mcg/dose 00 Medical DsDv Branch [facility] 2015-0 Yes 1{puff} Inhale 1 Univer s ELLIPTA 6-03 Puff as ity of 100-25 00:00: needed. [place] mcg/dose 00 Medical DsDv Branch [facility] 2016-0 Yes 1{puff} Inhale 1 Univer s ELLIPTA 6-03 Puff as ity of 100-25 00:00: needed. [place] mcg/dose 00 Medical DsDv Branch [facility] 2016-0 Yes 1{puff} Inhale 1 Univer s ELLIPTA 6-03 Puff as ity of 100-25 00:00: needed. [place] mcg/dose 00 Medical DsDv Branch [facility] 2016-0 Yes 1{puff} Inhale 1 Univer s ELLIPTA 6-03 Puff as ity of 100-25 00:00: needed. [place] mcg/dose 00 Medical DsDv Branch [facility] 2016-0 Yes Univers ELLIPTA 6-03 ity of 100-25 00:00: [place] mcg/dose 00 Medical DsDv Branch [facility] 2016-0 Yes 1{puff} Inhale 1 Univer s ELLIPTA 6-03 Puff as ity of 100-25 00:00: needed. [place] mcg/dose 00 Medical DsDv Branch [facility] 2016-0 Yes 1{puff} Inhale 1 Univer s ELLIPTA 6-03 Puff as ity of 100-25 00:00: needed. [place] mcg/dose 00 Medical DsDv Branch [facility] 2016-0 Yes 1{puff} Inhale 1 Univer s ELLIPTA 6-03 Puff as ity of 100-25 00:00: needed. [place] mcg/dose 00 Medical DsDv Branch [facility] 2016-0 Yes 1{puff} Inhale 1 Univer s ELLIPTA 6-03 Puff as ity of 100-25 00:00: needed. [place] mcg/dose 00 Medical DsDv Branch [facility] 2015-0 Yes 1{puff} Inhale 1 Univer s ELLIPTA 6-03 Puff as ity of 100-25 00:00: needed. [place] mcg/dose 00 Medical DsDv Branch [facility] 2015-0 Yes 1{puff} Inhale 1 Univer s ELLIPTA 6-03 Puff as ity of 100-25 00:00: needed. [place] mcg/dose 00 Medical DsDv Branch [facility] 2015-0 Yes 1{puff} Inhale 1 Univer s ELLIPTA 6-03 Puff as ity of 100-25 00:00: needed. [place] mcg/dose 00 Medical DsDv Branch [facility] 2015-0 Yes 1{puff} Inhale 1 Univer s ELLIPTA 6-03 Puff as ity of 100-25 00:00: needed. [place] mcg/dose 00 Medical DsDv Branch [facility] 2016-0 Yes 1{puff} Inhale 1 Univer s ELLIPTA 6-03 Puff as ity of 100-25 00:00: needed. [place] mcg/dose 00 Medical DsDv Branch [facility] 2015-0 Yes 1{puff} Inhale 1 Univer s ELLIPTA 6-03 Puff as ity of 100-25 00:00: needed. [place] mcg/dose 00 Medical DsDv Branch [facility] 2016-0 Yes Univers ELLIPTA 6-03 ity of 100-25 00:00: [place] mcg/dose 00 Medical DsDv Branch [facility] 2016-0 Yes 1{puff} Inhale 1 Univer s ELLIPTA 6-03 Puff as ity of 100-25 00:00: needed. [place] mcg/dose 00 Medical DsDv Branch [facility] 2015-0 Yes 1{puff} Inhale 1 Univer s ELLIPTA 6-03 Puff as ity of 100-25 00:00: needed. [place] mcg/dose [address] [facility] Branch [facility] 0 Yes 1{puff} Inhale 1 Univer s ELLIPTA 6-03 Puff as ity of 100-25 00:00: needed. [place] mcg/dose [address] [facility] Branch [facility] 2015-0 Yes 1{puff} Inhale 1 Univer s ELLIPTA 6-03 Puff as ity of 100-25 00:00: needed. [place] mcg/dose [address] [facility] Branch [facility] 0 Yes 1{puff} Inhale 1 Univer s ELLIPTA 6-03 Puff as ity of 100-25 00:00: needed. [place] mcg/dose [address] [facility] Branch [facility] 0 Yes 1{puff} Inhale 1 Univer s ELLIPTA 6-03 Puff as ity of 100-25 00:00: needed. [place] mcg/dose [address] [facility] Branch [facility] 0 Yes 1{puff} Inhale 1 Univer s ELLIPTA 6-03 Puff as ity of 100-25 00:00: needed. [place] mcg/dose 00 [facility] Branch losartan 2014-0 Yes 100mg 100 mg Univer s (COZAAR) 50 9-22 daily. ity of mg tablet 00:00: [facility] losartan 2014-0 Yes 100mg 100 mg Univer s (COZAAR) 50 9-22 daily. ity of mg tablet 00:00: Medical [place] losartan 2014-0 Yes 100mg 100 mg Univer s (COZAAR) 50 9-22 daily. ity of mg tablet 00:00: Medical [place] losartan 2014-0 Yes 100mg 100 mg Univer s (COZAAR) 50 9-22 daily. ity of mg tablet 00:00: Medical Branch losartan 2014-0 Yes 100mg 100 mg Univer s (COZAAR) 50 9-22 daily. ity of mg tablet 00:00: Medical Branch losartan 2014-0 Yes 100mg 100 mg Univer s (COZAAR) 50 9-22 daily. ity of mg tablet 00:00: [facility] Branch losartan 2015-0 Yes 100mg 100 mg Univer s (COZAAR) 50 9-22 daily. ity of mg tablet 00:00: [facility] losartan 2014- Yes 100mg 100 mg Univer s (COZAAR) 50 9-22 daily. ity of mg tablet 00:00: [facility] Branch losartan Yes 100mg 100 mg Univer s (COZAAR) 50 9-22 daily. ity of mg tablet 00:00: [facility] Branch losartan Yes 100mg 100 mg Univer s (COZAAR) 50 9-22 daily. ity of mg tablet 00:00: [facility] Branch losartan Yes 100mg 100 mg Univer s (COZAAR) 50 9-22 daily. ity of mg tablet 00:00: [facility] losartan Yes 100mg 100 mg Univer s (COZAAR) 50 9-22 daily. ity of mg tablet 00:00: [facility] losartan Yes 100mg 100 mg Univer s (COZAAR) 50 9-22 daily. ity of mg tablet 00:00: [facility] losartan 2014-0 2020- No 100mg 100 mg Unive rs (COZAAR) 50 9-22 02-14 daily. ity o f mg tablet 00:00: 00:00 [place] 00 :00 [facility] verapamil 2012-10 Yes 120mg QD Take [address] [facility] [address] (VERELAN 1-20 mg by [facility] PM) 120 MG 13:32: mouth Medica l 24 hr 13 daily. Center capsule esomeprazol 2012-10 Yes 40mg QD Take [address] [facility] (NEXIUM) 1-20 by mouth [facility] 40 MG 13:32: daily. Medical capsule 13 [facility] solifenacin 2012-10 Yes 5mg QD Take [address] (VESICARE) 1-20 by mouth [facility] 10 MG 13:32: daily. Medical tablet 13 [facility] atorvastati 2012-10 Yes 20mg QD Take [address] [facility] (LIPITOR) 1-20 by mouth Luke s 20 MG 13:32: daily. Medical tablet 13 [facility] cetirizine 2012-10 Yes 10mg QD Take [address] (ZYRTEC) 10 1-20 by mouth Luke s MG tablet 13:32: daily. Medica l 13 [facility] verapamil 2012-10 Yes 120mg QD Take [address] (VERELAN 1-20 mg by [facility] PM) 120 MG 13:32: mouth Medica l 24 hr 13 daily. [facility] capsule esomeprazol 2012-10 Yes 40mg QD Take [address] [facility] (NEXIUM) 1-20 by mouth [facility] 40 MG 13:32: daily. Medical capsule 13 [facility] solifenacin 2012-10 Yes 5mg QD Take [address] (VESICARE) 1-20 by mouth [facility] 10 MG 13:32: daily. Medical tablet 13 [facility] atorvastati 2012-10 Yes 20mg QD Take [address] [facility] (LIPITOR) 1-20 by mouth Luke s 20 MG 13:32: daily. Medical tablet 13 [facility] cetirizine 2012-10 Yes 10mg QD Take [address] (ZYRTEC) 10 1-20 by mouth Luke s MG tablet 13:32: daily. Medica l 13 [facility] albuterol 2012-10 Yes 2{puff} Inhale [address] (PROVENTIL 1-20 puffs by [facility] HFA;VENTOLI 13:32: mouth via M edical N HFA) 90 12 inhaler Center mcg/actuati every 6 on inhaler (six) hours as needed. desvenlafax 2012-10 Yes 100mg QD Take [address] ine 1-20 mg by [facility] succinate 13:32: mouth Medical (PRISTIQ) 12 daily. [facility] 100 MG 24 hr tablet clonazePAM 2012-10 Yes .5mg QD Take 0.[address] (KLONOPIN) 1-20 mg by [facility] 0.5 MG 13:32: mouth Medical tablet 12 daily. [facility] QUEtiapine 2012-10 Yes 150mg QD Take [address] (SEROQUEL 1-20 mg by [facility] XR) 150 mg 13:32: mouth Medica l Tb24 12 daily. [facility] levothyroxi 2012-10 Yes 75ug QD Take [address] ne 1-20 mcg by [facility] (SYNTHROID, 13:32: mouth Medic al LEVOTHROID) 12 daily. [facility] 75 MCG tablet albuterol 2012-10 Yes 2{puff} Inhale [address] (PROVENTIL 1-20 puffs by [facility] HFA;VENTOLI 13:32: mouth via M edical N HFA) 90 12 inhaler Center mcg/actuati every 6 on inhaler (six) hours as needed. desvenlafax 2012-10 Yes 100mg QD Take [address] ine 1-20 mg by [facility] succinate 13:32: mouth Medical (PRISTIQ) 12 daily. [facility] 100 MG 24 hr tablet clonazePAM 2012-10 Yes .5mg QD Take 0.[address] (KLONOPIN) 1-20 mg by [facility] 0.5 MG 13:32: mouth Medical tablet 12 daily. [facility] QUEtiapine 2012-10 Yes 150mg QD Take [address] (SEROQUEL 1-20 mg by [facility] XR) 150 mg 13:32: mouth Medica l Tb24 12 daily. [facility] levothyroxi 2012-10 Yes 75ug QD Take [address] ne 1-20 mcg by [facility] (SYNTHROID, 13:32: mouth Medic al LEVOTHROID) 12 daily. Center 75 MCG tablet Ropinirole Ropinirole Yes Reji 1 tablet 1 Common HCl HCl [facility] to 3 hours Spirit before [facility] bedtime [facility] ReliOn ReliOn Yes Reji as Common Prime Test Prime Test [facility] directed [facility] Pantoprazol Pantoprazol Yes Reji 1 tablet Common e Sodium e Sodium [facility] Verapamil Verapamil Yes Reji 1 tablet Common HCl ER HCl ER [facility] Accu-Chek Accu-Chek Yes Reji as Com mon FastClix FastClix [facility] directed Sp edmund Lancets Lancets [facility] CPAP CPAP Yes Reji nightly Common Machine Machine [facility] Clonazepam Clonazepam Yes Reji 1 tablet Common [facility] at bedtime [facility] Levothyroxi Levothyroxi Yes Reji 1 tablet Common ne Sodium ne Sodium [place] on an Spi rit empty - [facility] stomach in [facility] Losartan Losartan Yes Reji 1 tablet C ommon Potassium Potassium [facility] Spir it - [facility] Sunset Metformin Metformin Yes Reji 1 tablet Common HCl HCl [place] with a Spirit meal [facility] Atorvastati Atorvastati Yes Reji TAKE 1 Common n Calcium n Calcium [facility] TABLET BY Spirit MOUTH - [facility] EVERY DAY [facility] OneTouch OneTouch Yes Reji TEST BLOOD Common Verio Verio [facility] SUGAR ONCE [facility] A [facility] Spironolact Spironolact Yes Reji 1 tablet Common one one [facility] Diclofenac Diclofenac Yes Reji as C ommon Sodium Sodium [facility] directed [facility] Hydrocodone Hydrocodone Yes Reji 1 tablet Common -Acetaminop -Acetaminop [place] as needed Spirit hen hen [facility] Venlafaxine Venlafaxine Yes Reji 1 capsule Common HCl ER HCl ER [facility] Venlafaxine Venlafaxine Yes Reji 1 tablet Common HCl HCl [place] with food [facility] Amitriptyli Amitriptyli Yes Reji 1 tablet Common ne HCl ne HCl [facility] at bedtime [facility] Quetiapine Quetiapine Yes Reji 1 tablet Common Fumarate Fumarate [facility] Metformin Metformin Yes Reji TAKE 1 C ommon HCl HCl [facility] TABLET BY Spirit MOUTH - [facility] TWICE A DAY WITH A [facility] Atorvastati Atorvastati Yes Reji 1 tablet Common n Calcium n Calcium [facility] Spir [facility] Losartan Losartan Yes Reji TAKE 1 Com mon Potassium Potassium [place] TABLET BY Spirit MOUTH - [facility] EVERY DAY [facility] Pantoprazol Pantoprazol Yes Reji TAKE 1 Common e Sodium e Sodium [place] TABLET BY S pirit MOUTH - [facility] EVERY DAY [facility] levothyroxi levothyroxi No 1capsul Q1D levothyrox [facility] ne 100 mcg ne 100 mcg e(s) [...] Immunizations Ordered Filled Immunization Date Status Comments [facility] e Immunization Name Name SARS-COV-2 COVID-19 2021-08-17 [...] 2020-07-23 Completed [facility] Family injectable, injectable, 00:00:00 Practice quadrivalent quadrivalent [...] 2019-01-08 Completed University o f Polysaccharide, 00:00:00 [place] Med ical PPSV23 (PNEUMOVAX) Branch Vital Signs Vital Name Observation Time Observation Value Comments Source Systolic blood 2021-07-29 18:49:00 135 mm[Hg] Univer sity of pressure [facility] Diastolic blood 2021-07-29 18:49:00 83 mm[Hg] Unive rsity of [facility] Heart rate 2021-07-29 18:49:00 72 /min Universi ty of [facility] Body temperature 2021-07-29 18:49:00 36.56 [place] Univ ersity of [facility] Respiratory rate 2021-07-29 18:49:00 20 /min Univ ers[facility] of [facility] Body height 2021-07-29 18:49:00 157.5 cm [facility] Body weight 2021-07-29 18:49:00 107.049 kg [facility] BMI 2021-07-29 18:49:00 43.16 kg/m2 Universi ty [facility] Oxygen saturation in 2021-07-29 18:49:00 96 /min [facility] of Arterial blood by [facility] Pulse oximetry Branch Systolic blood 2020-10-22 17:08:00 132 mm[Hg] Univer sity of pressure [facility] Diastolic blood 2020-10-22 17:08:00 80 mm[Hg] Unive rsity of pressure [facility] Heart rate 2020-10-22 17:07:00 73 /min [facility] Systolic blood 2020-10-22 17:08:00 132 mm[Hg] Univer sity of pressure [facility] Diastolic blood 2020-10-22 17:08:00 80 mm[Hg] Unive rsity of pressure [facility] Heart rate 2020-10-22 17:07:00 73 /min [facility] Systolic blood 2020-04-24 15:41:00 132 mm[Hg] Univer sity of pressure [facility] Diastolic blood 2020-04-24 15:41:00 82 mm[Hg] [facility] [facility] Heart rate 2020-04-24 15:41:00 71 /min [facility] Body height 2020-04-24 15:41:00 157.5 cm [facility] Body weight 2020-04-24 15:41:00 109.317 kg [facility] BMI 2020-04-24 15:41:00 44.08 kg/m2 [facility] Systolic blood 2020-04-20 20:12:00 136 mm[Hg] Univer sity of pressure [facility] Diastolic blood 2020-04-20 20:12:00 88 mm[Hg] Unive rsity of pressure [facility] Heart rate 2020-04-20 20:08:00 80 /min [facility] Body weight 2020-04-20 20:08:00 [address] [facility] BMI 2020-04-20 20:08:00 45.36 kg/m2 [facility] Systolic blood 2020-01-01 15:55:00 123 mm[Hg] Univer sity of pressure [facility] Diastolic blood 2020-01-01 15:55:00 80 mm[Hg] Unive rsity of pressure [facility] Heart rate 2020-01-01 15:55:00 83 /min [facility] ty of [facility] Body height 2020-01-01 15:55:00 157.5 cm [facility] Body weight 2020-01-01 15:55:00 112.492 kg [facility] BMI 2020-01-01 15:55:00 45.36 kg/m2 [facility] Systolic blood 2019-12-24 19:21:00 113 mm[Hg] Univer sity of pressure [facility] Diastolic blood 2019-12-24 19:21:00 84 mm[Hg] Unive rsity of pressure [facility] Body height 2019-12-24 19:21:00 157.[address] [facility] Body weight 2019-12-24 19:21:[address] [facility] BMI 2019-12-24 19:21:00 45.36 kg/m2 [facility] Body height 2019-12-17 19:15:00 157[address] [facility] Body weight 2019-12-17 19:15:[address] [facility] BMI 2019-12-17 19:15:00 45.36 kg/m2 [facility] Systolic blood 2019-12-12 17:00:00 123 mm[Hg] [facility] Diastolic blood 2019-12-12 17:00:00 58 mm[Hg] [facility] Heart rate 2019-12-12 17:00:00 67 /min [facility] Body temperature 2019-12-12 17:00:00 36.89 Macarena [facility] Respiratory rate 2019-12-12 17:00:00 18 /min [facility] Oxygen saturation in 2019-12-12 17:00:00 94 /min [facility] Arterial blood by [employer]ulse oximetry Branch Body height 2019-12-06 17:00:00 157.5 cm [facility] Body weight 2019-12-06 17:00:00 112.492 kg [facility] BMI 2019-12-06 17:00:00 45.36 kg/m2 [facility] Systolic blood 2019-01-01 15:28:00 129 mm[Hg] [facility] Diastolic blood 2019-01-01 15:28:00 80 mm[Hg] [facility] Heart rate 2019-01-01 15:28:00 68 /min [facility] Respiratory rate 2019-01-01 15:28:00 20 /min [facility] Body height 2019-01-01 15:28:00 157.5 cm [facility] Body weight 2019-01-01 15:28:00 110.36 kg [facility] BMI 2019-01-01 15:28:00 44.50 kg/m2 [facility] Oxygen saturation in 2019-01-01 15:28:00 97 /min [facility] Arterial blood by [employer]ulse oxim[employer] Branch Systolic blood 2019-11-14 20:56:00 124 mm[Hg] [facility] Diastolic blood 2019-11-14 20:56:00 72 mm[Hg] [facility] Heart rate 2019-11-14 20:56:00 77 /min [facility] Body height 2019-11-14 20:56:00 157.5 cm [facility] Body weight 2019-11-14 20:56:00 109.317 kg [facility] BMI 2019-11-14 20:56:00 44.08 kg/m2 [facility] Procedures Procedure Date / Time Performing Clinician Source Performed DEXA AXIAL (HIP AND 2022-02-09 20:42:00 Requisition, Paper [facility] SPINE) Medical Branch ASSIGNMENT OF BENEFITS 2022-02-09 19:39:03 Doctor Unassigned, [facility] [place] [facility] AUTHORIZATION FOR RELEASE 2022-01-19 05:01:00 Doctor Eduardo, [facility] [place] [facility] SARS-COV-2 COVID-19 2021-08-17 18:27:50 Doctor Unatonny, [facility] VACCINE BOOSTER,0.25ML,IM [place] [facility] (MODERNA) XR CHEST 2 VW 2021-07-29 19:11:12 [facility] o f [facility] ASSIGNMENT OF BENEFITS 2021-07-29 18:44:44 Doctor Unassigned, [facility] [place] [facility] INSURANCE CORRESPONDENCE 2020-11-27 06:01:00 Doctor Eduardo, [facility] [place] [facility] BI DIAGNOSTIC MAMMOGRAM 2020-09-04 20:23:40 Veronica Claros [facility] BILATERAL Medical Branch RADIOLOGY DOCUMENTATION 2020-09-04 06:01:00 Doctor Unassmolly, [facility] [place] [facility] RADIOLOGY DOCUMENTATION 2020-08-19 05:01:00 Doctor Unassmolly, [facility] [place] [facility] AUTHORIZATION TO RELEASE 2020-07-23 05:01:00 Doctor Eduardo, [facility] PHI TO [email or web address]] [place] [facility] CBC WITH DIFFERENTIAL 2020-04-20 20:58:00 Jeanie Olivares [facility] [place] XR KNEE <3 VW LEFT 2020-04-20 18:44:02 Jeanie Olivares [facility] HOME HEALTH - OTHER 2020-01-10 05:01:00 Doctor Eduardo, [facility] [place] [facility] XR KNEE <3 VW LEFT 2019-12-24 19:22:[address] [facility] HOME HEALTH 485 2019-12-13 06:01:00 Doctor Unassigned, [facility] [place] [facility] POCT GLUCOSE (AUTOMATED) 2019-12-12 17:18:00 [facility]) 2019-12-12 13:36:[address] [facility] [facility] POCT GLUCOSE (AUTOMATED) 2019-12-12 02:35:00 Jeanie Olivares U niversity of [facility] POCT GLUCOSE (AUTOMATED) 2019-12-11 21:29:[address] [facility] POCT GLUCOSE (AUTOMATED) 2019-12-11 17:49:00 Jean[facility] POCT GLUCOSE (AUTOMATED) 2019-12-11 13:37:[address] [facility] POCT GLUCOSE (AUTOMATED) 2019-12-11 01:35:[address] [facility] POCT GLUCOSE (AUTOMATED) 2019-12-10 22:04:00 Jeanie [facility]ares [facility] PO[facility] GLUCOSE (AUTOMATED) 2019-12-10 13:27:00 [facility] BASIC METABOLIC PANEL 2019-12-10 11:03:00 [facility] (NA, K, CL, CO2, GLUCOSE, Medica l Branch BUN, CREATININE, CA) CBC WITH DIFFERENTIAL 2019-12-10 11:03:00 Alicia Cummings [facility] POCT GLUCOSE (AUTOMATED) 2019-12-10 01:34:00 Jeanie Olivares [facility] POCT GLUCOSE (AUTOMATED) 2019-12-09 23:29:00 Jeanie Olivares [facility] GLYCOSYLATED HEMOGLOBIN 2019-12-09 21:54:00 Alicia Cummings [facility] (A1C) [facility] XR KNEE <3 VW LEFT 2019-12-09 17:24:03 Jeanie Olivares [facility] NERVE BLOCK 2019-12-09 16:23:03 O [facility] Mabel Armenta [facility] TOTAL KNEE ARTHROPLASTY 2019-12-09 14:00:00 Jeanie Olivares Un [facility] HB ABO GROUPING 2019-12-09 13:41:00 Jeanie Olivares [facility] POCT GLUCOSE(AGE >30DAYS) 2019-12-09 13:38:00 Mitchell Pa [facility] HOSPITAL ADMISSION 2019-12-09 06:01:00 Doctor Unassigned, [facility] Name Medical Branch ASSIGNMENT OF BENEFITS 2019-12-06 20:12:00 Doctor Unassmolly, [facility] Name Medical [place] MEDICAL RELEASE/CLEARANCE 2019-12-02 06:01:00 Doctor Unaoctaviaigned, [facility] FORMS [place] REFERRAL- 2019-11-29 06:01:00 Doctor Unatonny, [facility] REQUEST/RESPONSE [place] [facility] [place] INSURANCE CORRESPONDENCE 2019-11-15 06:01:00 Doctor Unassigned, [facility] Name [facility] XR KNEE <3 VW LEFT 2019-11-14 21:28:[address] [facility] REFERRAL- 2019-11-04 06:01:00 Doctor Unaoctaviaigned, [facility] REQUEST/RESPONSE [place] [facility] [place] EKG-12 LEAD 2019-01-01 15:46:22 [facility] o f [facility] Plan of Care Planned Activity Planned Date Details Comments Source Instructions [facility] Practice Encounters Start End Encounter Admission Attending Care Care Encounter Source Date/Time Date/Time Type Type Clinicians Facility Department ID 2022-06-07 [facility] [id number] Common 15:03:00 Reji [facility] 2021-11-17 [facility] [id number] Common 14:39:28 Reji [facility] 2021-11-17 [facility] [id number] Common 14:03:56 Reji [facility] 2021-11-17 Outpatient Farris, STLMLC STLMLC [id number] Common 14:00:52 Reji [id number] [facility] 2021-11-17 Outpatient Farris, STLMLC STLMLC [id number] Common 13:58:35 Reji [id number] [facility] 2021-11-17 Outpatient Farris, STLMLC STLMLC [id number] Common 13:57:02 Reji [id number] [facility] 2021-11-17 Outpatient Farris, STLMLC STLMLC [id number] Common 13:06:10 Reji [id number] [facility] 2021-11-17 Outpatient Farris, STLMLC STLMLC [id number] Common 12:34:42 Reji [id number] [facility] 2021-11-17 Outpatient Farris, STLMLC STLMLC [id number] Common 12:33:57 Reji [id number] [facility] 2021-11-17 Outpatient Farris, STLMLC STLMLC [id number] Common 12:09:48 Reji [id number] [facility] 2021-11-17 Outpatient Farris, STLMLC STLMLC [id number] Common 11:22:51 Reji [id number] [facility] 2021-11-17 Outpatient Farris, STLMLC STLMLC [id number] Common 11:17:29 Reji [id number] [facility] 2021-11-17 Outpatient Farris, STLMLC STLMLC [id number] Common 11:05:43 Reji [id number] [facility] 2021-11-17 Outpatient Farris, STLMLC STLMLC [id number] Common 11:01:56 Reji [id number] [facility] 2022-10-06 2022-10-06 Outpatient R RADIOLOGY [facility] [id number]-20 Univers 00:00:00 00:00:00 [id number] ity of [facility] 2022-06-24 2022-06-24 ambulatory STLMLC STLMLC [id number] Common 00:00:00 00:00:00 [facility] 2022-06-16 2022-06-16 ambulatory STLMLC STLMLC [id number] Common 00:00:00 00:00:00 [facility] 2022-06-13 2022-06-13 ambulatory STLMLC STLMLC [id number] Common 00:00:00 00:00:00 [facility] 2022-06-08 2022-06-08 ambulatory STLMLC STLMLC [id number] Common 00:00:00 00:00:00 [facility] 2022-06-06 2022-06-06 ambulatory STLMLC STLMLC [id number] Common 00:00:00 00:00:00 [facility] 2022-05-19 2022-05-19 ambulatory STLMLC STLMLC [id number] Common 00:00:00 00:00:00 [facility] 2022-04-01 2022-04-01 ambulatory STLMLC STLMLC [id number] Common 00:00:00 00:00:00 [facility] 2022-02-15 2022-02-15 ambulatory STLMLC STLMLC [id number] Common 00:00:00 00:00:00 [facility] 2022-02-09 2022-02-09 Outpatient R RADIOLOGY [facility] [id number] Univers 14:41:40 23:59:[address] [facility] 2022-02-09 2022-02-09 Hospital Radiology [facility] [[email or web address]] 1.2.840.114 [id number] Univers 14:41:40 23:59:00 Encounter [place] [id number] ity [facility] 4.2.7.2.686 [facility] [id number] [facility] [address] Branch 2022-02-09 2022-02-09 Outpatient R RADIOLOGY [facility] [id number]-20 Univers 15:35:00 15:35:[id number] [facility] 2022-02-09 2022-02-09 Orders Doctor GUIDRY 1.2.840.114 [id number] Univers 00:00:00 00:00:00 Only Unassigned, KARIN [id number] ity of [place] 4.2.7.2.686 Franco as [phone] [address] 2022-01-19 2022-01-19 Orders Doctor BREA 1.2.840.114 [id number] Univers 00:00:00 00:00:00 Only Unassigned, KARIN [id number] ity of [place] [facility] 4.2.7.2.686 Franco as [phone] [address] 2021-12-19 2021-12-19 ambulatory STLMLC STLMLC [id number] Common 00:00:00 00:00:00 [facility] 2021-11-16 2021-11-16 ambulatory STLMLC STLMLC [id number] Common 00:00:00 00:00:00 [facility] 2021-11-16 2021-11-16 ambulatory STLMLC STLMLC [id number] Common 00:00:00 00:00:00 [facility] 2021-08-17 2021-08-17 Outpatient [facility] [id number] Univers 14:00:00 14:00:00 ity of [facility] 2021-08-17 2021-08-17 Imm/Inj Nurse, Adc Pob Immunization [facility] [[email or web address]] 1.2.840.114 [id number] Univers 13:26:44 13:26:58 Visit Larry Banerjee 350.1.13 .10 ity [facility] 4.2.7.2.686 Francoa s essio [phone] [address] 2021-08-16 2021-08-16 Outpatient [facility] [id number] Univers 16:10:00 16:10:00 ity of [facility] 2021-08-16 2021-08-16 Outpatient STLMLC STLMLC [id number] Common 00:00:00 00:00:00 [facility] 2021-07-31 2021-07-31 Letter BREA Chanel 1.2.840.114 [id number] Univers 00:00:00 00:00:00 (Out) Elissa FRAZIER 350.1.13.10 it y of HOSPITAL 4.2.7.2.686 Franco as [phone] [facility] 019 [place] 2021-07-29 2021-07-29 [facility] 1.2.389.323 [id number] Univers 13:59:13 23:59:00 Encounter [facility] 350.1.13.10 ity of [place] 4.2.7.2.686 Franco as Matthew?Blea [id number] Sd dical jerald 808 [place] Medical Office [facility] 2021-07-29 2021-07-29 [facility] 1.2.840.114 [id number] Univers 13:44:55 14:13:54 [facility] 350.1.13.10 ity of [place] 4.2.7.2.686 Franco as Matthew?Blea [phone] [facility] Office [facility] 2021-07-29 2021-07-29 Outpatient R [facility] [id number] Univers 13:45:00 13:45:00 [id number] ity of [facility] 2021-07-29 2021-07-29 [facility] [id number] Univers 13:45:00 13:45:[address] [facility] 2021-07-29 2021-07-29 Orders Doctor BREA 1.2.840.114 [id number] Univers 00:00:00 00:00:00 Only Unassigned, KARIN 350.1.13.10 ity of [place] 4.2.7.2.686 Franco as [phone] [facility] 009 [place] 2021-07-29 2021-07-29 Telephone Pcp, [facility] [[email or web address]] 1.2.354.535 [id number] Univers 00:00:00 00:00:00 Patient Health 350.1.13.10 it y of Does Not Surgical 4.2.7.2.686 [place] Specialti [phone] Sd dical es [address] [facility] 2021-07-29 2021-07-29 Outpatient STLMLC STLMLC [id number] Common 00:00:00 00:00:00 [facility] 2021-07-02 2021-07-02 Outpatient STLMLC STLMLC [id number] Common 00:00:00 00:00:00 [facility] 2021-05-14 2021-05-14 Outpatient STLMLC STLMLC [id number] Common 00:00:00 00:00:00 [facility] 2021-04-08 2021-04-08 Outpatient Miller_S_AH VFP VFP [id number] [facility] 04:53:00 04:53:00 [id number] Family Practic e 2021-03-09 2021-03-09 Outpatient Lorraine-Mbayo VFP VFP [id number] [facility] 04:44:00 04:44:00 _A_AH [id number] Family Practic e 2021-02-16 2021-02-16 Outpatient STLMLC STLMLC [id number] Common 00:00:00 00:00:00 [facility] 2021-01-26 2021-01-26 Outpatient STLMLC STLMLC [id number] Common 00:00:00 00:00:00 [facility] 2021-01-14 2021-01-14 Outpatient STLMLC STLMLC [id number] Common 00:00:00 00:00:00 [facility] 2020-12-30 2020-12-30 Patient Chriss, [facility] [[email or web address]] 1.2.840.114 [id number] Univers 00:00:00 00:00:00 Outreach [facility] 350.1.13.10 i ty [facility] 4.2.7.2.686 Paz WARD [id number] Sd dical [address] 2020 2020 Outpatient [facility] [id number] Univers 14:30:00 14:30:00 ity of [facility] 2020-12-21 2020-12-21 Outpatient STLMLC STLMLC [id number] Common 00:00:00 00:00:00 [facility] 2020-12-07 2020-12-07 Outpatient R [facility] [id number] Univers 10:00:00 10:00:[id number] [facility] 2020-12-07 2020-12-07 Outpatient R MARSHALL [facility] [id number] Univers 10:00:00 10:00:00 JEANIE [facility] 2020-11-30 2020-11-30 Outpatient R [facility] [id number] Univers 11:00:00 11:00:00 [id number] [facility] 2020-11-30 2020-11-30 Outpatient R [facility] [id number] Univers 11:00:00 11:00:00 [facility] 2020-11-30 2020-11-30 Outpatient STLMLC STLMLC [id number] Common 00:00:00 00:00:00 [facility] 2020-11-30 2020-11-30 Outpatient STLMLC STLMLC [id number] Common 00:00:00 00:00:00 [facility] 2020-11-27 2020-11-27 Orders Doctor BREA 1.2.840.114 [id number] Univers 00:00:00 00:00:00 Only Unassigned, KARNI 350.1.13.10 ity of [facility] 4.2.7.2.686 Franco as [phone] [address] 2020-11-23 2020-11-23 Outpatient STLMLC STLMLC [id number] Common 00:00:00 00:00:00 [facility] 2020-10-22 2020-10-22 Outpatient Mo MARSHALL [facility] [id number]-20 Univers 16:00:00 16:00:00 JEANIE [id number] [facility] 2020-10-22 2020-10-22 Outpatient Mo MARSHALL [facility] [id number] Univers 16:00:00 16:00:00 [facility] 2020-10-22 2020-10-22 Office Tutu [facility] [[email or web address]] 1.2.840.114 [id number] 10:58:24 11:13:24 Visit [facility] 350.1.13.10 Surgical 4.2.7.2.686 Specialti [phone] es [address] [place] 2020-10-22 2020-10-22 Office Madhav Cam [facility] [[email or web address]] 1.2.840.114 [id number] Univers 10:58:24 11:13:24 Visit Jeanie Olivares [facility] 350.1.13.10 ity of Surgical 4.2.7.2.686 Franco as Specialti [phone] Me dical es [address] [facility] 2020-10-19 2020-10-19 [facility] 1.2.840.114 [id number] Univers 00:00:00 00:00:00 Madhav Perkins [facility] 350.1.13.10 it y of Surgical 4.2.7.2.686 Franco as Specialti [phone] Sd dical es [address] [facility] 2020-09-22 2020-09-[address] [facility] [id number]-20 Univers 13:00:00 13:00:[address] [facility] 2020-09-22 2020-09-[address] [facility] [id number] Univers 13:00:00 13:00:00 [facility] 2020-09-22 2020-09-22 Outpatient STLMLC STLMLC [id number] Common 00:00:00 00:00:00 [facility] 2020-09-16 2020-09-16 Outpatient STLMLC STLMLC [id number] Common 00:00:00 00:00:00 [facility] 2020-09-15 2020-09-15 [facility] 1.2.840.114 [id number] Univers 14:18:23 23:59:00 Encounter Rossana Perkins SPECIALTY 350.1.13.10 ity [place] [id number] Sd dical FRANSISCA [address] [place] [address] 2020-09-15 2020-09-[address] [facility] [id number]-20 Univers 15:00:00 15:00:00 [facility]SANA [id number] [facility] 2020-09-15 2020-09-15 [facility] 1.2.840.114 [id number] Univers 14:17:33 14:17:33 Encounter Rossana S SPECIALTY 350.1.13.10 ity of [place].7.2.[place] [id number] Sd dandyjose GONGORA 800 [facility] 2020-09-15 2020-09-15 Outpatient R BLANQUITA [facility] [id number] Univers 00:00:00 00:00:[address] [facility] 2020-09-14 2020-09-14 [facility] 1.2.840.114 [id number] Univers 00:00:00 00:00:00 [facility] 350.1.13.10 it y of Surgical 4.2.7.2.686 Franco as Specialti [phone] Me dical es [address] [facility] 2020-09-04 2020-09-04 [facility] 1.2.840.114 [id number] Univers 14:23:39 23:59:00 Encounter Veronica Martinez SPECIALTY 350.1.13.10 ity of [place].2.[place] [id number] Sd wilma GONGORA 802 [facility] 2020-09-04 2020-09-04 Outpatient R [facility] [id number] Univers 14:23:39 14:23:[address] [facility] 2020-09-04 2020-09-04 Case [facility] 1.2.840.114 [id number] Univers 00:00:00 00:00:00 Management Veronica Gibson 350.1.13.10 ity of [place]2.7.2.686 [place] [phone] Me dical nal 204 [facility] 2020-09-04 2020-09-04 Orders Doctor GUIDRY 1.2.840.114 [id number] Univers 00:00:00 00:00:00 Only Unassigned, KARIN 350.1.13.10 ity of [place] [facility] 4.2.7.2.686 Franco as [phone] [facility] 00[address] [place] 2020-09-02 2020-09-02 Outpatient STLMLC STLMLC [id number] Common 00:00:00 00:00:00 [facility] 2020-08-27 2020-08-27 [facility] 1.2.431.309 [id number] Univers 00:00:00 00:00:00 Jeanie [facility] 350.1.13.10 it y of Surgical 4.2.7.2.686 Franco as Specialti [id number] Sd dical es [address] [place] 2020-08-25 2020-08-25 [id number] [facility] 01:08:00 01:08:00 _J_AH [id number] Family Practic e 2020-08-19 2020-08-19 Orders Doctor BREA 1.2.840.114 [id number] Univers 00:00:00 00:00:00 Only Unassigned, [place] 350.1.13.10 ity of [place] [facility] 4.2.7.2.686 Franco as [phone] [address] 2020-08-18 2020-08-18 Outpatient Mo [facility] [id number]-20 Univers 16:00:00 16:00:00 ROSSANA [id number] [facility] 2020-08-18 2020-08-18 Outpatient Mo [facility] [id number] Univers 16:00:00 16:00:00 [facility]SANA [facility] 2020-08-10 2020-08-10 [facility] [place] - [id number] V illage 00:00:00 00:00:00 [facility] 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 2020-08-04 2020-08-04 Outpatient Mo [facility] [id number] 1P-20 Univers 14:15:00 14:15:00 ROSSANA [id number] [facility] 2020-08-04 2020-08-04 Outpatient Mo [facility] [facility] [id number] Univers 14:15:00 14:15:00 [facility] 2020-07-28 Outpatient Mo JUARES [facility] [id number] 1P-20 Univers 13:30:00 13:30:[address] [facility] 2020-07-23 2020-07-23 Orders Doctor BREA 1.2.840.114 [id number] Univers 00:00:00 00:00:00 Only Unassigned, KARIN 350.1.13.10 ity [place] [facility] 4.2.7.2.686 Franco as [phone] [address] 2020-07-23 2020-07-23 Outpatient STLMLC STLMLC [id number] Common 00:00:00 00:00:00 [facility] 2020-07-14 2020-07-14 Outpatient STLMLC STLMLC [id number] Common 00:00:00 00:00:00 [facility] 2020-06-18 2020-06-18 Out[facility] [id number] Common 14:13:00 14:13:[address] [facility] 2020-06-17 2020-06-17 Outpatient [facility] [id number] Common 11:15:00 11:15:[address] [facility] 2020-06-17 2020-06-17 Outpatient [facility] [id number] Common 10:40:00 10:40:[address] [facility] 2020-06-16 2020-06-16 Outpatient [facility] [id number] Common 13:34:00 13:34:[address] [facility] 2020-06-08 2020-06-08 Outpatient [facility] [id number] Common 14:55:00 14:55:[address] [facility] 2020-05-25 2020-05-25 Outpatient Mo OLIVARES [facility] [id number] 1P-20 Univers 14:00:00 14:00:00 [facility] 2020-05-25 [facility] [id number] Univers 14:00:00 14:00:00 JEANIE [facility] 2020-04-28 2020-04-28 Outpatient [facility] [id number] Common 16:48:00 16:48:00 [employer] [place] [address] it [address] [facility] 2020-04-24 2020-04-24 Office Olivares [facility] [[email or web address]] 1.2.040.624 [id number] Univers 10:15:34 10:56:19 Visit Jeanie Moon [facility] 350.1.13.10 it y of Surgical 4.2.7.2.686 Franco as Specialti [phone] Sd dical es [address] [facility] 2020-04-24 2020-04-24 Outpatient R [facility] [id number] 1P-20 Univers 10:45:00 10:45:00 JEANIE [facility] 2020-04-24 2020-04-24 Outpatient R [facility] [id number] Univers 10:45:00 10:45:00 [facility] 2020-04-24 2020-04-24 Telephone [facility] 1.2.840.114 [id number] Univers 00:00:00 00:00:00 Jeanie Moon [facility] 350.1.13.10 it y of Surgical 4.2.7.2.686 Franco as Specialti [phone] Sd dical es [address] [facility] 2020-04-22 2020-04-22 Outpatient R [facility] [id number] -20 Univers 14:00:00 14:00:00 [facility] 2020-04-22 2020-04-22 Outpatient R [facility] [id number] Univers 14:00:00 14:00:00 [facility] 2020-04-22 Telephone [facility] 1.2.840.114 [id number] Univers 00:00:00 00:00:00 Jeanie Moon [facility] 350.1.13.10 it y of Surgical 4.2.7.2.686 Franco as Specialti [phone] Sd dical es [address] [facility] 2020-04-21 2020-04-21 Telephone [facility] 1.2.840.114 [id number] Univers 00:00:00 00:00:00 Jeanie Moon Health 350.1.13.10 it y of Surgical 4.2.7.2.686 Franco as Specialti [phone] Sd dical es [address] [facility] 2020-04-20 2020-04-20 Hospital [facility] 1.2.840.114 [id number] Univers 13:18:00 23:59:00 Encounter Jeanie Gibson 350.1.13.10 ity of [place] [phone] [facility] [address] [place] 2020-04-20 2020-04-20 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, 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 [facility] [[email or web address]] 1.2.8 40.114 [id number] Univers 15:43:30 15:58:30 Visit Jeanie Olivares 350.1.13.10 ity of [place].2.686 [place] [facility] [phone] Sd dical nal 353 [facility] 2020-04-20 2020-04-20 Office [facility] 1.2.720.635 [id number] Univers 14:51:38 15:28:40 Visit Jeanie Solorzano 350.1.13.10 it y of Surgical 4.2.7.2.686 Franco as Specialti [phone] Sd dical es [address] [facility] 2020-04-20 2020-04-20 Outpatient R [facility] [id number] 1P-20 Univers 15:15:00 15:15:[id number] [facility] 2020-04-20 2020-04-20 Outpatient R [facility] [id number] Univers 15:15:00 15:15:00 [facility] 2020-04-20 2020-04-20 Telephone [facility] 1.2.840.114 [id number] Univers 00:00:00 00:00:00 Jeanie Moon Health 350.1.13.10 it y of Surgical 4.2.7.2.686 Franco as Specialti [phone] Sd dical es [address] [facility] 2020-04-15 2020-04-15 Outpatient [facility] [id number] -20 Univers 15:40:00 15:40:00 [id number] ity of [facility] 2020-04-14 2020-04-14 Outpatient Mo CAM [facility] [id number] -20 Univers 16:00:00 16:00:00 MADHAV [id number] ity of [facility] 2020-04-14 2020-04-14 Outpatient Mo CAM [facility] [id number] Univers 16:00:00 16:00:00 MADHAV ity of [facility] 2020-04-13 2020-04-13 Outpatient R [facility] [id number] -20 Univers 15:00:00 15:00:00 [id number] ity of [facility] 2020-04-08 2020-04-08 Ancillary Cristopher Reece [facility] [[email or web address]] 1.2.840. 114 [id number] Univers 16:28:21 17:08:21 Visit Jeanie Olivares 350.1.13.10 ity of [place] Professio [phone] Sd dical nal [address] [place] [address] 2020-04-08 2020-04-08 Outpatient [facility] [id number] -20 Univers 16:20:00 16:20:00 [id number] ity of [facility] 2020-04-07 2020-04-07 Outpatient [facility] [id number] Common 08:50:00 08:50:[address] [facility] 2020-04-06 2020-04-06 Outpatient R [facility] [id number] -20 Univers 16:40:00 16:40:00 [id number] ity of [facility] 2020-04-06 2020-04-06 Outpatient [facility] [id number] Common 13:20:00 13:20:[address] [facility] 2020-04-03 2020-04-03 Ancillary Gloria Sena [facility] [[email or web address]] 1 .2.840.114 [id number] Univers 15:07:26 15:47:26 Visit Jeanie Olivares 350.1.13.10 it[place] of [place] Profess[place] [phone] Sd dical nal 179 [facility] 2020-04-03 2020-04-03 Outpatient [facility] [id number] -20 Univers 15:00:00 15:00:[id number] [facility] 2020-04-03 2020-04-03 Outpatient [facility] [id number] Common 11:22:00 11:22:[address] [facility] 2020-04-02 2020-04-02 Outpatient [facility] [id number] -20 Univers 16:20:00 16:20:[id number] [facility] 2020-03-26 2020-03-26 Ancillary Milan Rosa Brunosha [facility] [[email or web address]] 1 .2.840.114 [id number] Univers 14:01:58 14:41:58 Visit Jeanie Olivares 350.1.13.10 ity of [place] 4.2.7.2.686 Paz perkins Professio [phone] Sd dical nal 179 [facility] 2020-03-26 2020-03-26 Outpatient R [facility] [id number] -20 Univers 14:00:00 14:00:[address] [facility] 2020-03-26 2020-03-26 Outpatient R OLIVARES, [facility] [id number] Univers 14:00:00 14:00:00 [facility] 2020-03-17 2020-03-17 [facility] [id number] Common 10:12:00 10:12:[address] [facility] 2020-03-17 2020-03-17 Outpatient [facility] [id number] Common 09:45:00 09:45:[address] [facility] 2020-03-13 2020-03-13 Jefferson Cam [facility] [[email or web address]] 1.2.840.114 [id number] Univers 00:00:00 00:00:00 [facility] 350.1.13.10 it y of Surgical 4.2.7.2.686 Franco as Specialti [phone] Sd dical es [address] [facility] 2020-03-04 2020-03-04 Outpatient [facility] [id number] -20 Univers 14:00:00 14:00:00 [id number] ity of [facility] 2020-03-02 2020-03-02 Outpatient R [facility] [id number] -20 Univers 14:00:00 14:00:00 [id number] ity of [facility] 2020-02-28 2020-02-28 Ancillary Claudine Reece [facility] [[email or web address]] 1.2.840 .114 [id number] Univers 13:40:00 14:20:00 Visit Jeanie Olivares 350.1.13.10 [place] Profess[place] [phone] Me dical nal 179 [facility] 2020-02-28 2020-02-28 Outpatient R [facility] [id number] -20 Univers 13:40:00 13:40:00 ity of [facility] 2020-02-24 2020-02-24 Ancillary Arelis Mancia [facility] [[email or web address]] 1.2.840. 114 [id number] Univers 13:46:56 14:26:56 Visit Jeanie Olivares 350.1.13.10 it[place] Profess[place] [phone] Sd dical nal 179 [facility] 2020-02-24 2020-02-24 Outpatient R [facility] [id number] -20 Univers 13:40:00 13:40:00 ity of [facility] 2020-02-24 2020-02-24 Outpatient [facility] [id number] Univers 13:40:00 13:40:[address] [facility] 2020-02-18 2020-02-18 [place] [facility] [[email or web address]] 1.2.840.114 [id number] Univers 00:00:00 00:00:00 [facility] 350.1.13.10 it y of Surgical 4.2.7.2.686 Franco as Specialti [phone] Sd dical es [address] [facility] 2020-01-29 2020-01-29 Outpatient R [facility] [id number] -20 Univers 13:40:00 13:40:[address] [facility] 2020-01-27 2020-01-27 Outpatient Mo CAM [facility] [id number] -20 Univers 14:45:00 14:45:00 MADHAV ity of [facility] 2020-01-27 2020-01-27 Outpatient Mo CAM [facility] [id number] Univers 14:45:00 14:45:00 MADHAV ity of [facility] 2020-01-24 2020-01-24 [facility]iane [facility] 1.2.840.114 [id number] Univers 00:00:00 00:00:00 Madhav [facility] 350.1.13.10 it y of Surgical 4.2.7.2.686 Franco as Specialti [phone] Me dical es [address] [facility] 2020-01-22 2020-01-22 Outpatient [facility] [id number] -20 Univers 15:40:00 15:40:00 ity of [facility] 2020-01-22 2020-01-22 Outpatient [facility] [id number] Common 08:39:00 08:39:[address] [facility] 2020-01-20 2020-01-20 Outpatient R [facility] [id number] -20 Univers 15:40:00 15:40:00 ity of [facility] 2020-01-20 2020-01-20 Outpatient [facility] [id number] Common 11:28:00 11:28:[address] [facility] 2020-01-15 2020-01-15 Ancillary Gloria Sena [facility] [[email or web address]] 1 ..840.114 [id number] Univers 14:13:47 15:21:49 Visit Jeanie Olivares [place] 350.1.13.10 [place] [phone] Me dical nal 179 [facility] 2020-01-15 2020-01-15 Outpatient [facility] [id number] -20 Univers 14:20:00 14:20:[id number] [facility] 2020-01-13 2020-01-13 Ancillary Cristopher Reece [facility] [[email or web address]] 1.2.840. 114 [id number] Univers 15:19:19 15:59:19 Visit Jeanie Olivares Sarai Gibson 350.1.13.10 it[place] Profess[place] [phone] Sd dical nal 179 [facility] 2020-01-13 2020-01-13 Outpatient R [facility] [id number] Univers 15:40:00 15:40:00 [id number] ity of [facility] 2020-01-10 2020-01-10 Ancillary Claudine Reece [facility] [[email or web address]] 1.2.840 .114 [id number] Univers 11:22:12 12:16:12 Visit Marshall Jeanie Sarai Gibson 350.1.13.10 ity [facility] 4.2.7.2.686 [place] Profess[place] [phone] Sd dical nal 179 [facility] 2020-01-10 2020-01-10 Outpatient [facility] [id number] Univers 11:20:00 11:20:[address] [facility] 2020-01-10 2020-01-10 Orders Doctor BREA 1.2.840.114 [id number] Univers 00:00:00 00:00:00 Only Unassigned, KARIN 350.1.13.10 ity of [place] [facility] 4.2.7.2.686 Franco as [phone] [address] 2020-01-08 2020-01-08 Outpatient [facility] [id number] -20 Univers 14:00:00 14:00:00 [id number] ity of [facility] 2020-01-06 2020-01-06 Outpatient [facility] [id number] Univers 13:40:00 13:40:00 [id number] ity of [facility] 2020-01-06 2020-01-06 Telephone Marshall [facility] [[email or web address]] 1.2.840.114 [id number] Univers 00:00:00 00:00:00 Jeanie Moon [facility] 350.1.13.10 it y of Surgical 4.2.7.2.686 Franco as Specialti [phone] Sd dical es [address] [facility] 2020-01-03 2020-01-03 Outpatient R [facility] [id number] Univers 10:40:00 10:40:[id number] [facility] 2020-01-02 2020-01-02 Outpatient Brazyolande [facility] [id number] Common 14:00:00 14:00:00 Cov[facility] it [facility] 2020-01-01 2020-01-01 Ancillary Kathy Fontanez [facility] [[email or web address]] 1.2.840. 114 [id number] Univers 13:53:42 15:14:13 Visit Jeanie Olivares [place] 350.1.13.10 ity of [place] Profess[place] [phone] Me dical nal 179 [facility] 2020-01-01 2020-01-01 Outpatient [facility] [id number] -20 Univers 14:20:00 14:20:[id number] [facility] 2020-01-01 2020-01-01 Outpatient R [facility] [id number] Univers 14:20:00 14:20:[address] [facility] 2020-01-01 2020-01-01 Office [facility] 1.2.840.114 [id number] Univers 10:33:21 10:48:21 Visit [facility] 350.1.13.10 it y of Surgical 4.2.7.2.686 Franco as Specialti [phone] Me dical es [address] [facility] 2020-01-01 2020-01-01 Outpatient [facility] [id number] Univers 10:30:00 10:30:[address] [facility] 2019-12-24 2019-12-24 Outpatient [facility] [id number] Univers 13:22:40 23:59:[address] [facility] 2019-12-24 2019-12-24 [facility] 1.2.840.114 [id number] Univers 13:22:00 23:59:[address] [facility] 350.1.13.10 ity of Surgical 4.2.7.2.686 Franco as Specialti [phone] Me dical es [address] [facility] 2019-12-24 2019-12-24 Office [facility] 1.2.840.114 [id number] Univers 13:06:00 13:21:00 Visit Madhav Perkins [facility] 350.1.13.10 it y of Surgical 4.2.7.2.686 Franco as Specialti [phone] Me dical es [address] [facility] 2019-12-23 2019-12-23 Outpatient Vero Avelar [id number] Common 15:26:00 15:26:[address] [facility] 2019-12-18 2019-12-18 Patient Doctor [facility] [[email or web address]] 1.2.840.114 [id number] Univers 00:00:00 00:00:00 Secure Msg Unassigned, Health 350.1.13.10 ity of [place] Surgical 4.2.7.2.686 Franco as Specialti [phone] Sd dical es [address] [facility] 2019-12-17 2019-12-17 Office [facility] 1.2.840.114 [id number] Univers 13:14:41 14:01:42 Visit Madhav Perkins [facility] 350.1.13.10 it y of Surgical 4.2.7.2.686 Franco as Specialti [phone] Sd dical es [address] [facility] 2019-12-17 2019-12-17 Outpatient Mo CAM [facility] [id number] -20 Univers 13:30:00 13:30:[id number] [facility] 2019-12-17 2019-12-17 Outpatient Mo [facility] [id number] Univers 13:30:00 13:30:[address] [facility] 2019-12-15 2019-12-15 Telephone [facility] 1.2.840.114 [id number] Univers 00:00:00 00:00:00 Jeanie Health 350.1.13.10 it y of Surgical 4.2.7.2.686 Franco as Specialti [phone] Sd dical es [address] [facility] 2019-12-13 2019-12-13 Orders Doctor BREA 1.2.840.114 [id number] Univers 00:00:00 00:00:00 Only Unassigned, KARIN 350.1.13.10 ity of [place] [facility] 4.2.7.2.686 Franco as [phone] [facility] [address] 2019-12-09 2019-12-12 Outpatient R [facility] SOR [id number] Univers 07:00:00 13:20:00 JEANIE itgiuliana of [facility] 2019-12-09 2019-12-12 Hospital Marshall [email or web address]] 1.2.840.114 [id number] Univers 07:00:00 13:20:00 Encounter Jeanie Gibson 350.1.13.10 ity of [place] [phone] [facility] [address] 2019-12-11 2019-12-11 Outpatient Ige-[place] VFP VFP [phone] Village 07:26:00 07:26:00 _J_AH [id number] Family Practic e 2019-12-09 2019-12-09 Anesthesia Fariha Lee [facility] [[email or web address]] 1. 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 2019-12-06 2019-12-06 Orders Doctor GUIDRY 1.2.840.114 [id number] Univers 00:00:00 00:00:00 Only Unassigned, KARIN 350.1.13.10 ity of [place] [facility] 4.2.7.2.686 Franco as [phone] [facility] [address] [place] 2019-12-05 2019-12-05 Prep For FE Olivares 1.2.840.114 [id number] Univers 00:00:00 00:00:00 Surgery Jeanie Moon [facility] 350.1.13.10 it y of Surgical 4.2.7.2.686 Franco as Specialti [phone] Me dical es [address] [facility] 2019-12-05 2019-12-05 Telephone FE Olivares 1.2.840.114 [id number] Univers 00:00:00 00:00:00 Jeanie Moon [facility] 350.1.13.10 it y of Surgical 4.2.7.2.686 Franco as Specialti [phone] Sd dical es [address] [facility] 2019-12-04 2019-12-04 Outpatient [facility] [id number] Common 13:45:00 13:45:00 t [facility] it Drive [facility] 2019-01-01 2019-12-02 Office FE Banda 1.2.840.114 [id number] Univers 10:19:05 17:54:28 Visit Mauricio [place] 350.1.13.10 ity of [place].2.[place] [phone] Sd dical nal 059 [facility] 2019-12-02 2019-12-02 Letter FE Olivares 1.2.577.414 [id number] Univers 00:00:00 00:00:00 (Out) Jeanie Moon [facility] 350.1.13.10 it y of Surgical 4.2.7.2.686 Franco as Specialti [phone] Sd dical es [address] [facility] 2019-12-02 2019-12-02 Telephone FE Olivares 1.2.840.114 [id number] Univers 00:00:00 00:00:00 Jeanie Moon [facility] 350.1.13.10 it y of Surgical 4.2.7.2.686 Franco as Specialti [phone] Sd dical es [address] [facility] 2019-12-02 2019-12-02 Letter FE Olivares 1.2.729.570 [id number] Univers 00:00:00 00:00:00 (Out) Jeanie L [facility] 350.1.13.10 it y of Surgical 4.2.7.2.686 Franco as Specialti [phone] Me dical es [address] [facility] 2019-12-02 2019-12-02 Orders Doctor BREA 1.2.840.114 [id number] Univers 00:00:00 00:00:00 Only Unassigned, KARIN 350.1.13.10 ity of [place] [facility] 4.2.7.2.686 Franco as [phone] [address] 2019-11-29 2019-11-29 Orders Doctor BREA 1.2.840.114 [id number] Univers 00:00:00 00:00:00 Only Unassigned, KARIN 350.1.13.10 ity of [place] [facility] 4.2.7.2.686 Franco as [phone] [address] 2019-11-27 2019-11-27 Outpatient [facility] [id number] Common 11:15:00 11:15:00 Covestor Spir it [facility] 2019-11-15 2019-11-15 Orders Doctor BREA 1.2.840.114 [id number] Univers 00:00:00 00:00:00 Only Unassigned, KARIN 350.1.13.10 ity of [place] [facility] 4.2.7.2.686 Franco as [phone] [address] 2019-11-14 2019-11-14 [facility] 1.2.840.114 [id number] Univers 15:28:00 23:59:00 Encounter Madhav S Health 350.1.13.10 ity of Surgical 4.2.7.2.686 Franco as Specialti [phone] Sd dical es [address] [facility] 2019-11-14 2019-11-14 Outpatient [facility] [id number] Univers 14:45:00 15:38:34 MADHAV ity of [facility] 2019-11-14 2019-11-14 Office [facility] 1.2.840.114 [id number] Univers 14:50:54 15:05:54 Visit Madhav [facility] 350.1.13.10 it y of Surgical 4.2.7.2.686 Franco as Specialti [phone] Me dical es [address] [facility] 2019-11-14 2019-11-14 Outpatient Mo OLIVARES [facility] [id number] Univers 10:30:00 10:30:00 [facility] 2019-11-08 2019-11-08 Outpatient Mo OLIVARES [facility] [id number] Univers 08:15:00 08:15:00 [facility] 2019-11-07 2019-11-07 Outpatient Mo [facility] [id number] Univers 10:30:00 10:30:00 [facility] 2019-11-04 2019-11-04 Orders Doctor GUIDRY [id number] Univers 00:00:00 00:00:00 Only Unassigned, KARIN [id number] ity of [place] [facility] [id number] Franco as [phone] [address] 2019-10-31 2019-10-31 [facility] [id number] Common 17:29:00 17:29:[address] [facility] 2019-09-30 2019-09-30 [facility] [id number] Common 16:54:00 16:54:[address] [facility] 2019-09-04 2019-09-04 [facility] [id number] Common 09:00:00 09:00:[address] Drive [facility] 2019-06-13 2019-06-13 [facility] [id number] Univers 00:00:00 00:00:00 Madhav [facility] [id number] it y of Surgical [id number] Franco as Specialti [phone] Me dical es 198 [facility] 2019-05-30 2019-05-30 [facility] [id number] Common 10:45:00 10:45:00 t Specialty/U Sp edmund Specialty rology - /Urology Clinic [facility] 2019-05-20 2019-05-20 [facility] [id number] Common 15:00:00 15:00:[address] Drive [facility] 2019-05-08 2019-05-08 Outpatient [id number] Common 09:45:00 09:45:[address] [facility] 2019-04-03 2019-04-03 [id number] Common 12:00:00 12:00:[address] [facility] 2019-03-01 2019-03-01 [facility] [id number] Common 09:51:00 09:51:[address] [facility] 2019-02-27 2019-02-27 [facility] [id number] Common 13:45:00 13:45:[address] [facility] 2019-02-11 2019-02-11 [facility] [id number] Univers 16:00:00 16:54:05 [facility] 2019-02-04 [facility] [id number] Common 14:34:00 14:34:[address] [facility] 2019-01-30 2019-01-30 [id number] Common 10:33:00 10:33:[address] [facility] 2019-01-29 2019-01-29 [facility] [id number] Common 14:00:00 14:00:[address] [facility] 2019-01-04 2019-01-04 [facility] [id number] [facility] 14:45:00 14:45:[address] [facility] 2018-12-26 2018-12-26 [facility] [id number] Common 16:11:00 16:11:[address] [facility] 2018 2018 Outpatient [facility] [id number] Common 14:30:00 14:30:[address] [facility] 2018-12-12 2018-12-12 [facility] [id number] Common 14:31:00 14:31:[address] [facility] 2018-12-11 2018-12-11 Out[facility] [id number] Common 14:00:00 14:00:[address] [facility] 2018-12-11 2018-12-11 [facility] [id number] Common 09:30:00 09:30:00 t [facility] 2018-12-05 2018-12-05 [facility] [id number] Common 09:21:00 09:21:[address] [facility] 2018-12-04 2018-12-04 [facility] [id number] Common 14:45:00 14:45:00 t [facility] 2018-12-04 2018-12-04 [facility] [id number] Common 12:18:00 12:18:[address] [facility] 2018-11-28 2018-11-28 [facility] [id number] Common 14:45:00 14:45:[address] [facility] 2018-11-27 2018-11-27 [facility] [id number] Common 12:23:00 12:23:[address] [facility] 2018-11-05 2018-11-05 [facility] [id number] Common 15:27:00 15:27:[address] [facility] 2018-10-29 2018-10-29 Outpatient Vero [facility] 23 [id number] Common 15:06:00 15:06:[address] [facility] 2018-10-02 2018-10-02 Outpatient [facility] [id number] Common 14:30:00 14:30:[address] [facility] Results Test Description Test Time Test Comments [...] 31.8 g/dL 31.6-35.1 RDW-SD (test code = 67714-3) 42.5 fL 39-49.9 RDW-CV (test code = 788-0) 13.2 % 12-15.5 PLT (test code = 777-3) See_Comment H [Au tomated message] The system which ge nerated this result transmit shyann reference range: 166 - 35 8 10*3/?L. The reference range was not used to interpret th is result as normal/abnormal . MPV (test code = 34959-7) 9.0 fL 9.5-12.9 L NRBC/100 WBC (test code = See_Comment [ Automated message] The 6558580889) system which [employer] nerated this result transmit shyann reference range: 0.0 - 10 .0 /100 WBCs. The reference r ronnie was not used to interpr et this result as normal/abnor mal. NRBC x10^3 (test code = <0.01 See_Comment [Au tomated message] The 6101111730) system which ge nerated this result transmit shyann reference range: 10*3/?L. The reference range was not u sed to interpret this result as normal/abnormal . GRAN MAT (NEUT) % (test code 81.5 % = 770-8) IMM GRAN % (test code = 0.60 % 5244627830) LYMPH % (test code = 736-9) 15.4 % MONO % (test code = 5905-5) 2.2 % EOS % (test code = 713-8) 0.1 % BASO % (test code = 706-2) 0.2 % GRAN MAT x10^3(ANC) (test 9.02 10*3/uL 1.88-7.09 H code = 1766119858) IMM GRAN x10^3 (test code = 0.07 10*3/uL 0-0.06 H 7992321924) LYMPH x10^3 (test code = 1.70 10*3/uL 1.32-3.29 731-0) MONO x10^3 (test code = 0.24 10*3/uL 0.33-0.92 L 742-7) EOS x10^3 (test code = <0.03 0.03-0.39 L 711-2) BASO x10^3 (test code = <0.03 0.01-0.07 704-7) Lab Interpretation (test Abnormal code = 28617-1) [facility] <3 VW [id number] 19:50:00 No acute fracture. Small joint effusion [...] andlateralCOMPARISON:12/24/2019FINDINGS: Changes of total knee arthroplasty are seen with stable componentalignment. A small joint effusion is present along with mild soft tissueswelling. No acute fracture is seen.IMPRESSIONNo acute fracture.Small joint effusion and mild soft tissue swelling.Stable alignment of the knee arthroplasty without hardware complicationUnMidCoast Medical Center – CentralXR KNEE <3 VW [id number] 19:52:13Status post total knee replacement with press-fit tibia and femur and excellent alignment no signs of periprosthetic fracture she does have a tibial tubercle osteophyte that is intact. ?[facility] GLUCOSE (AUTOMATED)2019-12-12 17:37:00 Test Item Value Reference Range Interpretation Comments POCT GLU (test code = 3994558360) 136 mg/dL 70-110 H Lab Interpretation (test code = Abnormal 80126-3) [facility] GLUCOSE (AUTOMATED)2019-12-12 14:18:00 Test Item Value Reference Range Interpretation Comments POCT GLU (test code = 6312636992) 102 mg/dL 70-110 Lab Interpretation (test code = Normal 88593-6) [facility] GLUCOSE (AUTOMATED)2019-12-12 02:54:00 Test Item Value Reference Range Interpretation Comments POCT GLU (test code = 9089861320) 111 mg/dL 70-110 H Lab Interpretation (test code = Abnormal 69056-2) [facility] GLUCOSE (AUTOMATED)2019-12-11 23:20:00 Test Item Value Reference Range Interpretation Comments POCT GLU (test code = 4207592760) 120 mg/dL 70-110 H Lab Interpretation (test code = Abnormal 64934-3) [facility] GLUCOSE (AUTOMATED)2019-12-11 17:55:00 Test Item Value Reference Range Interpretation Comments POCT GLU (test code = 0788202853) 122 mg/dL 70-110 H Lab Interpretation (test code = Abnormal 70238-8) [facility] GLUCOSE (AUTOMATED)2019-12-11 13:46:00 Test Item Value Reference Range Interpretation Comments POCT GLU (test code = 8820439910) 96 mg/dL 70-110 Lab Interpretation (test code = Normal 64022-6) [facility] GLUCOSE (AUTOMATED)2019-12-11 02:14:00 Test Item Value Reference Range Interpretation Comments POCT GLU (test code = 7751034908) 134 mg/dL 70-110 H Lab Interpretation (test code = Abnormal 24167-9) [facility] GLUCOSE (AUTOMATED)2019-12-10 22:28:00 Test Item Value Reference Range Interpretation Comments POCT GLU (test code = 2326649582) 126 mg/dL 70-110 H Lab Interpretation (test code = Abnormal 20147-8) [facility] GLUCOSE (AUTOMATED)2019-12-10 18:58:00 Test Item Value Reference Range Interpretation Comments POCT GLU (test code = 5464735625) 110 mg/dL 70-110 Lab Interpretation (test code = Normal 02409-7) [facility] METABOLIC PANEL (NA, K, CL, CO2, GLUCOSE, BUN, CREATININE, CA)2019-12-10 12:25:00 Test Item Value Reference Range Interpretation Comments NA (test code = 139 mmol/L 135-145 5593049832) K (test code = 3.9 mmol/L 3.5-5 4494524069) CL (test code = 101 mmol/L 98-108 1796141408) CO2 TOTAL (test code = 29 mmol/L 23-31 2291113028) AGAP (test code = 2-16 0408106904) BUN (test code = 11 mg/dL 7-23 2387114693) GLUCOSE (test code = 144 mg/dL 70-110 H 8355796025) CREATININE (test code = 0.54 mg/dL 0.5-1.04 9800613011) CALCIUM (test code = 9.3 mg/dL 8.6-10.6 2608061482) eGFR Calculation mL/min/1.73m2 (Non-) (test code = 7869071362) eGFR Calculation mL/min/1.73m2 () (test code = 3312753099) ALIDA (test code = ALIDA) Association of [...] tests). Lab Interpretation Abnormal (test code = 38525-2) [facility] WITH [id number] 12:16:00 Test Item Value Reference Range Interpretation Comments WBC (test code = See_Comment H [Automated 8772-2) message] The sy stem which generated this result transmitted reference range : 4.30 - 11.10 10*3/?L. The reference range was not used to interpret this result as normal/abnormal . RBC (test code = See_Comment [Automated 739-8) message] The sy stem which generated this [...] RDW-SD (test code = 41.1 fL 39-49.9 46909-4) RDW-CV (test code = 12.5 % 12-15.5 788-0) PLT (test code = See_Comment [Automated 777-3) message] The sy stem which generated this result transmitted reference range : 166 - 358 10*3/ ?L. The reference r ronnie was not used to interpret this result as normal/abnormal . MPV (test code = 9.9 fL 9.5-12.9 66467-7) NRBC/100 WBC (test See_Comment [Automat ed code = 1801499672) message] The system which generated this result transmitted reference range : 0.0 - 10.0 /100 WBCs. The refer ence range was not u sed to interpret th is result as normal/abnormal . NRBC x10^3 (test code <0.01 See_Comment [Auto mated = 5069674810) message] The s ystem which generated this result transmitted reference range : 10*3/?L. The reference range was not used to interpret this result as normal/abnormal . GRAN MAT (NEUT) % 76.5 % (test code = 770-8) IMM GRAN % (test code 0.60 % = 2087193143) LYMPH % (test code = 14.5 % 736-9) MONO % (test code = 8.3 % 5905-5) EOS % (test code = 0.0 % 713-8) BASO % (test code = 0.1 % 706-2) GRAN MAT x10^3(ANC) 8.91 10*3/uL 1.88-7.09 H (test code = 4268794069) IMM GRAN x10^3 (test 0.07 10*3/uL 0-0.06 H code = 7217816221) LYMPH x10^3 (test code 1.69 10*3/uL 1.32-3.29 = 731-0) MONO x10^3 (test code 0.97 10*3/uL 0.33-0.92 H = 742-7) EOS x10^3 (test code = <0.03 0.03-0.39 L 711-2) BASO x10^3 (test code <0.03 0.01-0.07 = 704-7) Lab Interpretation Abnormal (test code = 80158-2) [facility] GLUCOSE (AUTOMATED)2019-12-10 11:25:00 Test Item Value Reference Range Interpretation Comments POCT GLU (test code = 1002735973) 169 mg/dL 70-110 H Lab Interpretation (test code = Abnormal 97287-4) [facility] GLUCOSE (AUTOMATED)2019-12-10 02:02:00 Test Item Value Reference Range Interpretation Comments POCT GLU (test code = 2495823001) 212 mg/dL 70-110 H Lab Interpretation (test code = Abnormal 02444-3) [facility]GLYCOSYLATED HEMOGLOBIN (A1C)2019-12-09 22:20:00 Test Item Value Reference [...] Indicated Lab Interpretation Abnormal (test code = 62830-9) [facility] CampusX-[facility] knee less than 3 views [id number] 19:04:07 Interval total knee arthroplasty without complication. [...] and subcutaneous gas surrounding the knee joint. [facility], Radiant Results Inft User - 12/09/2019 1:05 PM CSTEXAM: XR KNEE <3 VW LEFTHISTORY: total knee Maintain knee immobilizer/brace/splint/castCOMPARISON: 11/14/2019.FINDINGS:Images of the left knee demonstrate interval changes of a total kneearthroplasty in satisfactory alignment and without hardware complication.No acute fracture or dislocation is identified. Surgical macy overliethe anterior knee. A partially visualized drainage catheter terminates inthe infrapatellar region. Postsurgical changes in the form of soft tissueswellingand subcutaneous gas surrounding the knee joint.IMPRESSIONInterval total knee arthroplasty without complication.No acute bony abnormality.Preliminary Report Dictated by Resident: Jackelin Kirkland, Ahuja MD., have reviewed this study and agree with the abovereport. [facility] Campusadductor canal canal [id number] 16:23:03 Mitchell Pa CRNA ? ? 12/09/2019 ?3:30 PM Nerve Block Laterality: LeftSurgical Anesthesia: no Start Time: 12/09/2019 10:02 AMEnd Time: 12/09/2019 10:20 AMResident/TOBACCO PACKER: Mabel Nguyen CRNAPerformed by: resident/HARDIKPreanesthetic timeout completed [...] Additional Notes:Block performed by Nidia Shah CRNA [facility] Campusadductor canal canal [id number] 16:23:03Mitchell Pa CRNA ? ? 12/09/2019 ?3:30 PM Nerve Block Laterality: LeftSurgical Anesthesia: no Start Time: 12/09/2019 10:02 AMEnd Time: 12/09/2019 10:20 AMResident/HARDIK: Mabel Nguyen CRNAPerformed by: resident/CRNAPreanesthetic timeout completed prior to procedure: patient identified,IV checked, site marked, risks and benefits discussed, surgical consentPatient position: supine.Monitoring: co ntinuous pulse ox, blood pressure and ECGInjection Technique: single-shotNerve Block Needle Gauge: 20g.Needle Length: 4.0Number of Attempts: 1Technique: Ultrasound guided, Negative aspiration and Intermittent aspiration during injection Medications Given: Regional:Bupiv 0.25% 12.5 mLBupiv 0.5% 12.5 mLd examethasone 10 mg/ml 1 mL Additional Notes:Block performed by Nidia Shah CRNA [facility] CampusType and Screen - ONCE [id number] 14:40:06 Test Item Value Reference Range Interpretation Comments ABO & RH (test code A Negative Performe d at [facility] = 20) [facility] [address] [place] [phone] Free: [phone] A No. [id number] IAT (test code = Negative Performed a t [facility] [[email or web address]] 1185) [facility] [address] [place] [phone] Free: [phone] A No. [id number] [facility] CampusPOCT GLUCOSE(AGE >30DAYS)2019-12-09 13:38:00 Test Item Value Reference Range Interpretation Comments POCT Glu (age>30days) (test code = 134 mg/dL 70-110 A 3342) Lab Interpretation (test code = Abnormal 48005-3) [facility]"
[2022-07-17] MEDS ORDERED: PROMETH/COD 6.25/10MG SYRUP 5ML ONE (21:08)
--- NOTE | 2022-07-17 21:26 | RAD REPORT ---
EXAM DESCRIPTION: RAD - Chest Single View - 07/17/2022 8:59 pm CLINICAL HISTORY: COUGH COMPARISON: PA chest 05/19/2022, two view chest 03/03/2020 TECHNIQUE: AP portable chest image was obtained 07/17/2022 8:59 pm . FINDINGS: No focal lung parenchymal process. Interstitial pattern matches comparison. Hilar regions are similar to comparisons. Heart and vasculature are normal. No measurable pleural effusion and no p neumothorax. No acute bony abnormality seen. No acute aortic findings suspected. IMPRESSION: No acute cardiopulmonary process. No significant change from comparison study.
[2022-07-17 21:28] LABS: Absolute Lymphocytes (CBC) 1.9 K/uL (0.7-4.9); Hematocrit 37.1 % (36.0-45.0); Lymphocytes % 20.1 % (15.3-44.8); MCV 88.9 fL (80-100); MPV 7.5 fL (7.6-11.3); RBC Red Blood Cell Count 4.17 M/uL (3.86-4.86)
[2022-07-17 21:30] LABS: Protime INR 1.15
[2022-07-17 21:56] LABS: ALT/SGPT 37 U/L (12-78); Albumin 3.4 g/dL (3.4-5.0); Alkaline Phosphatase 113 U/L (45-117); BUN Blood Urea Nitrogen 13 mg/dL (7-18); Bicarbonate 30 mmol/L (21-32); Bilirubin Total 0.4 mg/dL (0.2-1.0); Glomerular Filtration Rate 87 ml/min (=/>90); Glucose Level 96 mg/dL (74-106); NT PRO-BNP 264 pg/mL (<125); Sodium Level 136 mmol/L (136-145); Troponin High Sensitivity 5.6 pg/mL (<58.9)
[2022-07-17 21:57] LABS: AST/SGOT 31 U/L (15-37); Bilirubin Direct < 0.1 mg/dL (0-0.2); Magnesium 2.1 mg/dL (1.8-2.4)
[2022-07-17 23:50] LABS: Urine Blood Negative (Negative); Urine Glucose Negative (Negative); Urine Protein Negative (Negative); Urine Specific Gravity 1.015 (1.005-1.030); Urine pH 6.5 (5.0-7.0)
--- NOTE | 2022-07-18 00:01 | EDPHYS ---
Physician Documentation [facility] Name: Eliza Hill Age: 61 yrs Sex: Female : 1960 Arrival Date: 07/17/2022 Time: 19:52 Bed Treatment Private MD: ED Physician Claudette Velasquez HPI: 07/17 20:45 This 61 yrs old Female presents to ER via Ambulatory with complaints of Covid. cp 20:45 The patient or guardian reports cough, that is constant, with productive sputum, cp shortness of breath, nasal congestion. 20:45 Onset: The symptoms/episode began/occurred 2 day(s) ago. Associated signs and symptoms: cp Pertinent positives: sore throat, body aches, Pertinent negatives: fever. Severity of symptoms: in the emergency department the symptoms are unchanged despite home interventions. Historical: - Allergies: 20:03 Latex, Natural Rubber; hb 20:03 Tramadol HCl; hb 20:03 Wellbutrin; hb - PMHx: 20:03 Arthritis; Chronic pain; COPD; Diabetes - NIDDM; Hypertension; Hypothyroidism; hb Osteoporosis; - Immunization history:: Client reports receiving the 2nd dose of the Covid vaccine, moderna. - Social history:: Smoking status: Patient denies any tobacco usage or history of. ROS: 20:50 Constitutional: Positive for body aches, chills, Negative for fever, poor PO intake. cp 20:50 Eyes: Negative for injury, pain, redness, and discharge. cp 20:50 ENT: Positive for sore throat, Negative for drainage from ear(s), ear pain, difficulty swallowing, difficulty handling secretions. 20:50 Respiratory: Positive for cough, shortness of breath, Negative for wheezing. 20:50 Abdomen/GI: Negative for abdominal pain, vomiting, diarrhea, constipation. 20:50 Neuro: Positive for headache, Negative for altered mental status, weakness. 20:50 All other systems are negative. Exam: 20:55 Constitutional: The patient appears in no acute distress, alert, awake, cp non-diaphoretic, non-toxic, well developed, well nourished, appears ill 20:55 Head/Face: Normocephalic, atraumatic. cp 20:55 Eyes: Periorbital structures: appear normal, Conjunctiva: normal, no exudate, no injection, Sclera: no appreciated abnormality, Lids and lashes: appear normal, bilaterally. 20:55 ENT: External ear(s): are unremarkable, Ear canal(s): are normal, clear, TM's: dullness, bilaterally, Nose: is normal, Mouth: Lips: moist, Oral mucosa: moist, Posterior pharynx: Airway: no evidence of obstruction, patent, Tonsils: with erythema, no enlargement, no exudate, erythema, that is mild. 20:55 Neck: ROM/movement: is normal, is supple, without pain, no range of motions limitations, no meningismus, Lymph nodes: no appreciated lymphadenopathy. 20:55 Chest/axilla: Inspection: normal. 20:55 Cardiovascular: Rate: normal, Rhythm: regular, Edema: is not appreciated, JVD: is not appreciated. 20:55 Respiratory: the patient does not display signs of respiratory distress, Respirations: labored breathing, is not present, intercostal retractions, are absent, Breath sounds: bronchial sounds, that are mild, are heard diffusely, stridor, is not appreciated, + upper airway congestion. wheezing: is not appreciated. 20:55 Abdomen/GI: Inspection: abdomen appears normal, Palpation: abdomen is soft and non-tender, in all quadrants. 20:55 Back: CVA tenderness, is absent. 20:55 Skin: cellulitis, is not appreciated, no rash present. 20:55 Neuro: Orientation: to person, place \T\ time. Mentation: is normal, Motor: moves all fours, strength is normal. Vital Signs: 20:01 BP 163 / 71; Pulse 77; Resp 16; Temp 99; Pulse Ox 97% on R/A; Weight 100.24 kg; Height hb 5 ft. 8 in. (172.72 cm); Pain 8/10; 23:45 BP 155 / 75; Pulse 77; Resp 24; Pulse Ox 100% ; kb3 07/18 00:23 BP 146 / 71; Pulse 77; Resp 18 S; Pulse Ox 96% on R/A; as6 07/17 20:01 Body Mass Index 33.60 (100.24 kg, 172.72 cm) hb MDM: 07/17 20:06 Patient medically screened. 07/17 20:31 Order name: Influenza Screen (a \T\ B); Complete Time: 23:04 cp 07/17 23:05 Interpretation: Reviewed. 07/17 20:31 Order name: Basic Metabolic Panel; Complete Time: 23:04 07/17 23:04 Interpretation: Normal except: GFR 87. 07/17 20:31 Order name: CBC with Diff; Complete Time: 23:04 07/17 23:04 Interpretation: Normal except: MPV 7.5. 07/17 20:31 Order name: LFT's; Complete Time: 23:04 07/17 23:05 Interpretation: Normal except: GLOB 4.6; A/G 0.7. 07/17 20:31 Order name: Magnesium; Complete Time: 23:04 07/17 20:31 Order name: NT PRO-BNP; Complete Time: 23:04 07/17 20:31 Order name: PT-INR; Complete Time: 23:04 07/17 20:31 Order name: Troponin HS; Complete Time: 23:04 07/17 20:31 Order name: Strep; Complete Time: 23:04 07/17 23:06 Interpretation: Reviewed. 07/17 21:23 Order name: SARS-COV-2 RT PCR; Complete Time: 23:04 [facility] 07/17 21:23 Order name: Respiratory Syncytial Virus Ag; Complete Time: 23:04 [facility] 07/17 21:53 Order name: Throat Culture [facility] 07/17 20:31 Order name: XRAY Chest (1 view); Complete Time: 23:04 07/17 23:05 Interpretation: Report review. 07/17 20:31 Order name: EKG; Complete Time: 20:32 07/17 20:31 Order name: Cardiac monitoring; Complete Time: 22:56 07/17 20:31 Order name: EKG - Nurse/Tech; Complete Time: 22:56 07/17 20:31 Order name: IV Saline Lock; Complete Time: 21:10 07/17 20:31 Order name: Labs collected and sent; Complete Time: 21:10 07/17 20:31 Order name: O2 Per Protocol; Complete Time: 22:56 07/17 20:31 Order name: O2 Sat Monitoring; Complete Time: 22:56 07/17 23:10 Order name: Urine Dipstick-Ancillary (obtain specimen); Complete Time: 23:57 07/17 23:51 Order name: Urine Dipstick-Ancillary; Complete Time: 00:01 EDMS Administered Medications: 20:31 CANCELLED (Physician Discretion): Tessalon Perle (benzonatate) 200 mg PO once cp 21:10 Drug: Phenergan (promethazine) -Codeine Liquid (6.25mg - 10mg / 5mL) 10 ml Route: PO; as6 22:00 Follow up: Response: No adverse reaction; Other kb3 07/18 00:23 Drug: Afrin (oxymetazoline) Drops (0.05 %) 1 sprays Route: Intranasal; Site: both nares;as6 00:23 Follow up: Response: No adverse reaction as6 Disposition Summary: 07/18/22 00:00 Discharge Ordered Location: Home cp Problem: new cp Symptoms: have improved cp Condition: Stable cp Diagnosis - Acute bronchitis, unspecified cp Followup: cp - With: Private Physician - When: 2 - 3 days - Reason: Recheck today's complaints Discharge Instructions: - Discharge Summary Sheet cp - Acute Bronchitis, Adult cp Forms: - Medication Reconciliation Form cp - Thank You Letter cp - Antibiotic Education cp - Prescription Opioid Use cp Prescriptions: - Bromfed DM 2-30-10 mg/5 mL Oral syrup - take 10 milliliter by ORAL route every 6 hours; 180 milliliter; Refills: 0, cp Product Selection Permitted - Zithromax Z-Rey 250 mg Oral Tablet - take 1 tablet by ORAL route as directed for 5 days Day 1 - take two (2) tablets cp one time. Day 2, 3, 4 , 5 take one (1) tablet once daily.; 6 tablet; Refills: 0, Product Selection Permitted - Flonase Allergy Relief 50 mcg/actuation Nasal spray,suspension - spray 1 spray by INTRANASAL route once daily; 1 Device; Refills: 0, Product cp Selection Permitted Addendum: 07/19/2022 01:34 STAFF ATTESTATION STATEMENT: I was immediately available onsite in the emergency s d2 department for consultation in the care of this patient. I did not see or examine this patient. Claudette Velasquez MD. Signatures: Dispatcher [employer] EDUT Jeff White PA PA cp Kathy Jim RN RN Cristian Ricks RN RN as6 Claudette Velasquez MD MD sd2 Jaida Case RN kb3 Corrections: (The following items were deleted from the chart) 07/17 20:31 20:31 Tessalon Perle (benzonatate) 200 mg PO once ordered. cp cp 21:23 20:32 COVID,FLU,RSV CPL+MR.LAB.BRZ ordered. EDMS EDMS 07/19 00:19 07/18 20:45 This 61 yrs old Female presents to ER via Ambulatory with complaints of cp Covid. cp
--- NOTE | 2022-07-18 00:01 | ER ---
Nurse's Notes [facility] Name: Eliza Hill Age: 61 yrs Sex: Female : 1960 Arrival Date: 07/17/2022 Time: 19:52 Bed Treatment Private MD: Diagnosis: Acute bronchitis, unspecified Presentation: 07/17 20:01 Chief complaint: Cough, congestion, body aches, malaise, pain with cough, sore throat, hb and headache x 2 days. Home COVID + test today. Coronavirus screen: Client presents with at least one sign or symptom that may indicate coronavirus-19. Standard/surgical mask placed on the client. Provider contacted for isolation considerations. Ebola Screen: No symptoms or risks identified at this time. Onset of symptoms was July 16, 2022. 20:01 Method Of Arrival: Ambulatory hb 20:01 Acuity: JENNA 3 hb 20:07 Initial Sepsis Screen: Does the patient meet any 2 criteria? No. Patient's initial as6 sepsis screen is negative. Does the patient have a suspected source of infection? No. Patient's initial sepsis screen is negative. Risk Assessment: Do you want to hurt yourself or someone else? Patient reports no desire to harm self or others. Historical: - Allergies: 20:03 Latex, Natural Rubber; hb 20:03 Tramadol HCl; hb 20:03 Wellbutrin; hb - PMHx: 20:03 Arthritis; Chronic pain; COPD; Diabetes - NIDDM; Hypertension; Hypothyroidism; hb Osteoporosis; - Immunization history:: Client reports receiving the 2nd dose of the Covid vaccine, moderna. - Social history:: Smoking status: Patient denies any tobacco usage or history of. Screenin:11 Abuse screen: Denies threats or abuse. Denies injuries from another. Nutritional as6 screening: No deficits noted. Tuberculosis screening: No symptoms or risk factors identified. Fall Risk None identified. Assessment: 20:10 General: Appears uncomfortable, ill, Behavior is calm, cooperative. Pain: Complains of as6 pain in generalized Quality of pain is described as aching. Neuro: Level of Consciousness is awake, alert, Reports headache. Respiratory: Reports cough that is productive, Respiratory effort is even, unlabored. EENT: Reports nasal congestion nasal discharge. 23:30 General: Assisted pt to restroom via WC. Pt with occasional strong cough and moderate kb3 nasal congestion. PT reports feeling unwell. 23:30 General: Pt reports she checked her blood sugar and it was 88. kb3 Vital Signs: 20:01 BP 163 / 71; Pulse 77; Resp 16; Temp 99; Pulse Ox 97% on R/A; Weight 100.24 kg; Height hb 5 ft. 8 in. (172.72 cm); Pain 8/10; 23:45 BP 155 / 75; Pulse 77; Resp 24; Pulse Ox 100% ; kb3 07/18 00:23 BP 146 / 71; Pulse 77; Resp 18 S; Pulse Ox 96% on R/A; as6 07/17 20:01 Body Mass Index 33.60 (100.24 kg, 172.72 cm) hb ED Course: 07/17 19:52 Patient arrived in ED. ja2 20:03 Triage completed. hb 20:03 Arm band placed on. hb 20:06 Jeff White PA is PHCP. cp 20:06 Claudette Velasquez MD is Attending Physician. cp 20:07 Cristian Ricks, ARTUR is Primary Nurse. as6 20:11 Patient has correct armband on for positive identification. as6 21:01 XRAY Chest (1 view) In Process Unspecified. EDMS 21:10 Inserted saline lock: 20 gauge in right antecubital area, using aseptic technique. as6 Blood collected. 21:58 EKG done, by ED staff, reviewed by Jeff BUSTILLO. mb4 23:45 No provider procedures requiring assistance completed. kb3 07/18 00:23 IV discontinued, intact, bleeding controlled, No redness/swelling at site. Pressure as6 dressing applied. Administered Medications: 07/17 20:31 CANCELLED (Physician Discretion): Tessalon Perle (benzonatate) 200 mg PO once cp 21:10 Drug: Phenergan (promethazine) -Codeine Liquid (6.25mg - 10mg / 5mL) 10 ml Route: PO; as6 22:00 Follow up: Response: No adverse reaction; Other kb3 07/18 00:23 Drug: Afrin (oxymetazoline) Drops (0.05 %) 1 sprays Route: Intranasal; Site: both nares;as6 00:23 Follow up: Response: No adverse reaction as6 Medication: 07/17 23:45 VIS not applicable for this client. kb3 Outcome: 07/18 00:00 Discharge ordered by . cp 00:23 Discharged to home via wheelchair. as6 00:23 Condition: stable 00:23 Discharge instructions given to patient, Instructed on discharge instructions, follow up and referral plans. medication usage, Demonstrated understanding of instructions, follow-up care, medications, Prescriptions given X 3. 00:24 Patient left the ED. as6 Signatures: Dispatcher [employer] EDMS Jeff White PA PA cp Baxter, Heather, RN RN Danuta Jim mb4 Janine Vega Ashby, RN RN as6 Jaida Case, RN RN kb3 Corrections: (The following items were deleted from the chart) 07/17 20:26 20:01 Chief complaint: Cough, congestion, body aches, malaise, pain with cough, sore hb throat, and headache. Home COVID + test today,
[2022-07-18] MEDS ORDERED: OXYMETAZOLINE HCL 0.05% 15ML NAS ONE (00:19)
--- NOTE | 2022-07-18 14:08 | EKG ---
Test Date: 2022-07-17 Test Time: 21:50:48 [employer] Process [employer] Operator: JOE MEASUREMENT RESULTS: Intervals: Rate: 73 TN: 138 QRSD: 78 QT: 244 QTc: 268 [place]: P: 60 TN: 138 QRS: 37 T: 194 INTERPRETIVE STATEMENTS: Normal Sinus rhythm ST & T wave abnormality, consider inferolateral ischemia Abnormal ECG Compared to ECG 03/03/2020 20:45:14 ST (T wave) deviation now present Possible ischemia now present Myocardial infarct finding no longer present Electronically Signed On 07-18-22 14:08:04 CDT by Jalen Chaves
[2022-07-20 02:09] VITALS: TEMP 99
[2022-07-20 02:15] VITALS: BP 146/71; O2SAT 96
== END 2022-07-18 00:24 | disposition home or self-care (01) ==
LOC: ER 19:46
DX: J20.9 Acute bronchitis, unspecified (principal); I10 Essential (primary) hypertension; Z20.822 Contact with and (suspected) exposure to COVID-19; Z88.5 Allergy status to narcotic agent; Z88.8 Allergy status to other drugs, medicaments and biological substances; Z91.040 Latex allergy status; Z91.048 Other nonmedicinal substance allergy status
CPT/HCPCS: 93005; 87070; 85025; 80048; 36415; 83735; 85610; 80076; 87081; 81003; 84484; 83880; 87807; 87804 ×2; 71045; U0003; 99284

== ENCOUNTER 2022-10-03 08:21 | Observation (INO) | payer OTHER ==
--- OUTSIDE RECORDS SUMMARY | 2022-10-03 08:49 | XMS REPORT | Continuity of Care Document ---
:1960 Author Organization [facility] t Address [address] [place] [address] Care Team Providers Name Role Phone Sharpless Primary Care Physician Reji Farris Attending Clinician Unavailable RADIOLOGY Attending Clinician Unavailable Radiology Attending Clinician Unavailable Doctor Unassigned, [place] Attending Clinician Unavailable Nurse, Adc Pob Immunization Attending Clinician Unavailable Larry Banerjee DO Attending Clinician Elissa Chanel RN Attending Clinician Unavailable Katerina Medellin Attending Clinician Love Bruce Attending Clinician LOVE ROBERTS Attending Clinician Unavailable Pcp, Patient Does Not Have A Attending Clinician [phone] Neil_S_AH Attending Clinician Unavailable Erin_Juan_BROOKE Attending Clinician Unavailable JEANIE OLIVARES Attending Clinician Unavailable Madhav Klein Attending Clinician Jeanie Olivares MD Attending Clinician ROSSANA JUARES Attending Clinician Unavailable Blanquita DOTSON, Rossana Perkins Attending Clinician Radha CRAYON GRADERIban Attending Clinician IBAN CLAROS Attending Clinician Unavailable Ige-[place]un[place]_J_AH Attending Clinician Unavailable Pob, 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 Attending Clinician Unavailable MADHAV CAM Attending Clinician Unavailable Chevy CHIN STRAP MAKER, Cristopher Edwards Attending Clinician Unavailable Milan Bruno PT, Gloria Attending Clinician Unavailable Chevy CRANE, Claudine Parker Attending Clinician Unavailable Blanche PT, Arelis Pineda Attending Clinician Unavailable Huseyin PT, Kathy Attending Clinician Unavailable Fariha Lee CRNA Attending Clinician [phone] Attending Clinician Mabel Armenta CRNA, MD, Mauricio Attending Clinician LAURA EASON Admitting Clinician Unavailable Miller_S_AH Admitting Clinician Unavailable Lorraine-Mbayo_A_AH Admitting Clinician Unavailable Ige-[place]_J_AH Admitting Clinician Unavailable JEANIE OLIVARES Admitting Clinician Unavailable Marshall DOTSON, Jeanie Moon Admitting Clinician Payers Payer Name Policy Type Policy Number Effective Date Expiration Date Skylar horton [facility] [id number] 2018 CLASSIC NO 00:00:00 PREMIUM HMO [facility] [id number] (MEDICARE 00:00:00 REPLACEMENT HMO) [place] [id number] [facility] [place] [id number] [facility] OF [place] - [id number] [place] 00:00:00 (MEDICARE REPLACEMENT/ADVAN TAGE - HMO) Problems Condition Condition Condition Status Onset Resolution Last Treating Co mments Source Name Details Category Date Date Treatment Clinician Date Primary Primary Disease Active Overview: Univ ers osteoarthr osteoarthr 2-13 Formattin ity of itis of itis of 00:00: g of this [place] left knee left knee 00 note Medi mac might be Branch different from the original. Added automatic ally from request for surgery [id number] Obesity Obesity Problem Active 2019-0 Village 9-25 Family 00:00: Practic 00 e [...] Disorder 05-19 Family 00:00: Practic 00 e Gastroesop Gastroesop Problem Active [place] ill[place] hageal hageal 05-19 Family reflux Reflux 00:00: Practic disease Disease 00 e Primary Primary Disease Active Overview: Univ ers osteoarthr osteoarthr 3-13 Formattin ity of itis of itis of 00:00: g of this [place] right knee right knee 00 note Me dical might be Branch different from the original. Added automatic ally from request for surgery [id number] Hypoxia Hypoxia Disease Active Univers 6-20 ity of 00:00: [place] [facility] Knee pain, Knee pain, Disease Active U nivers left left 3-28 ity of 00:00: [place] [facility] Right knee Right knee Disease Active 2014-10 U nivers pain pain 0-13 ity of 00:00: [place] [address] Medical Branch [id number] Body mass Problem Com mon index Spirit [BMI] - [facility]I 40.0-44.9, [facility] [id number] GERD Problem Common without Spirit esophagiti - [facility] s [facility] Anxiety Anxiety Problem [facility] - [facility] Morbid Morbid Problem Common obesity (severe) Spirit obesity - [facility] due to [facility] 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 edmund disorder matic - CHI stress St disorder) [facility] [id number] Type 2 Problem Common diabetes Spirit mellitus - [facility] without complicati [facility] [id number] Current Problem Common moderate Spirit episode of - CHI major St depressive [facility] disorder Medical without Center prior episode [id number] Dependence Problem Co mmon on other Spirit enabling - CHI machines [facility] [id number] Insomnia, Problem Com mon unspecifie Spirit d type - [facility] [id number] Restless Problem Commo n leg Spirit syndrome - [facility] [id number] Primary Problem Commo n osteoarthr Spirit itis of - [facility]I both knees [facility] [id number] Mixed Problem Common hyperlipid Spirit emia - [facility] [id number] Chronic Problem Common obstructiv Spirit e - [facility] Med[facility] d COPD Center type [id number] Status Problem Commo n 105 post total Spirit left knee - [facility] replac[facility] [id number] Generalize Problem Com mon d anxiety Spirit disorder - [facility] [id number] Acquired Problem Comm on hypothyroi Spirit dism - [facility] [id number] Obstructiv Problem Com mon e sleep Spirit apnea - [facility] (adult) (pediatric [facility] ) [facility] [id number] Essential Problem Comm on (primary) Spirit hypertensi - [facility] on [facility] [id number] Chronic Problem Commo n depression Spirit - [facility] [id number] Urinary Problem Commo n incontinen Spirit ce, - CHI unspecifie [facility] [id number] Mixed Problem Common stress and Spirit urge - CHI urinary [facility] [id number] Encounter Problem Com mon for Spirit examinatio - CHI n of eyes and vision [facility] without Medical abnormal Center findings Allergies, Adverse Reactions, Alerts Allergy Allergy Status Severity Reaction(s) Onset Inactive Treating Comm ents Source Name Type Date Date Clinician Gabapent Propensi Active Other - See 2020-0 Weight U nivers in ty to comments 04-20 gain and ity of adverse 00:00: sleep [place] reaction 00 walk [facility] GABAPENT DRUG Active Other-Cmnt 2020-0 Univ ers IN INGREDI 6-29 ity of 00:00: [facility] DICLOFEN DRUG Active Swelling 2019-0 Univer s AC INGREDI 3-17 ity of SODIUM 00:00: [facility] Diclofen Propensi Active Swelling 2020-0 redness Uni vers ac ty to 3-17 ity of Sodium adverse 00:00: [place] reaction [facility] Latex, Propensi Active Itching 2018- Univers Natural ty to 3-19 ity of Rubber adverse 00:00: [place] reaction [facility] LATEX, Drug Active Med ITCHING 2019-0 Univers NATURAL Class 3-19 ity of RUBBER 00:00: [place] 00 Medical Branch Latex, Propensi Active Itching 2019-0 Univers Natural ty to 3-19 ity of Rubber adverse 00:00: [place] reaction 00 Medical s Branch Bupropio Propensi Active Itching Unive rs n Hcl ty to 6-15 ity of adverse 00:00: [place] reaction 00 Medical s Branch Zolpidem Propensi Active Unknown - Sleep Uni vers ty to See comments 6-15 walk ity of adverse 00:00: [place] reaction 00 Medical s Branch BUPROPIO DRUG Active ITCHING [...] 01/18/2016 4:26 PM Ketorola Propensi Active Anaphylaxis 2014- U nivers c ty to 0-13 ity [...] INGREDI 0-13 ity of 00:00: [place] 00 Medical Branch Zolpidem Drug Active 2012-[address] [facility] Codeine Drug Active Itching 2012-[address] [facility] Bupropio Drug Active Itching 2012-[address] [facility] Hcl Allergy 1-20 [facility] ZOLPIDEM Allergy Active 2012-[address] [facility]: Medical 00 [place] CODEINE Allergy Active Itching 2012-[address] [facility] Medical 00 [place] BUPROPIO Allergy Active Itching 2012-[address] [facility] [address] N HCL 11-11 [facility] 00:00: Medical 00 [place] [id number] Drug Active Unknown Common allergy [facility] TORADOL Allergy Active Moderate Anaphylaxis [place] to to severe Family substanc Practic e e WELLBUTR Allergy Active Moderate Hives Ding ge IN to to severe Family substanc Practic e e Social History Social Habit Start Date Stop Date Quantity Comments Source History of Tobacco [facility] - Use [facility] Exposure to Not sure University of SARS-CoV-2 (event) [facility] Tobacco use and 2019-01-04 2019-01-04 Never used Universit y of exposure 00:00:00 00:00:00 [facility] Cigarettes smoked 2019-01-04 2019-01-04 Univers ity of current (pack per 00:00:00 00:00:00 [facility] ) - Reported [place] Cigarette 2019-01-04 2019-01-04 University of pack-years 00:00:00 00:00:00 [facility] Alcohol intake 2013-09-11 2013-09-11 Current [facility] es 00:00:00 00:00:00 non-drinker of Medical Ce nter alcohol (finding) Sex Ass[birth year] [facility] 00:00:00 00:00:00 [facility] Smoking Status Start Date Stop Date Source Never Smoker [facility] Former smoker 2019-01-01 00:00:00 2019-01-01 00:00:00 Universi ty of [facility] Medications Ordered Filled Start Stop Current Ordering Indication Dosage Frequency Signature Comments Components Source Medication Medication Date Date Medication? Clinician (SIG) Name Name Ferrous Ferrous No 1{table BID Ferrous Sulfate 325 Sulfate 325 1-25 t} Sulfate (65 Fe) MG (65 Fe) MG 00:00: 325 (65 00 Fe) MG Ferrous Ferrous No 1{table BID Ferrous Sulfate 325 Sulfate 325 1-25 t} Sulfate (65 Fe) MG (65 Fe) MG 00:00: 325 (65 00 Fe) MG codeine-gua 2020-10- No 10mL Take 10 mL [...] up to 7 days. Indication s: cough Accu-Chek Accu-Chek 2021-0 No Accu-Chek FastClix FastClix 4-06 FastClix Lancets - Lancets - 00:00: Lancets - 00 Accu-Chek Accu-Chek 2021-0 No Accu-Chek FastClix FastClix 4-06 FastClix Lancets - Lancets - 00:00: Lancets - 00 Accu-Chek Accu-Chek 2021-0 No Accu-Chek FastClix FastClix 4-06 FastClix Lancets - Lancets - 00:00: Lancets - 00 Accu-Chek Accu-Chek 2021-0 No Accu-Chek FastClix FastClix 4-06 FastClix Lancets - Lancets - 00:00: Lancets - 00 Accu-Chek Accu-Chek 2021-0 No Accu-Chek FastClix FastClix 4-06 FastClix Lancets - Lancets - 00:00: Lancets - 00 Accu-Chek Accu-Chek 2021-0 No Accu-Chek FastClix FastClix 4-06 FastClix Lancets - Lancets - 00:00: Lancets - 00 Accu-Chek Accu-Chek 2021-0 No Accu-Chek FastClix FastClix 4-06 FastClix Lancets - Lancets - 00:00: Lancets - 00 Accu-Chek Accu-Chek 2021-0 No Accu-Chek FastClix FastClix 4-06 FastClix Lancets - Lancets - 00:00: Lancets - 00 Accu-Chek Accu-Chek 2021-0 No Accu-Chek FastClix FastClix 4-06 FastClix Lancets - Lancets - 00:00: Lancets - 00 Accu-Chek Accu-Chek 2021-0 No Accu-Chek FastClix FastClix 4-06 FastClix Lancets - Lancets - 00:00: Lancets - 00 Accu-Chek Accu-Chek 2021-0 No Accu-Chek FastClix FastClix 4-06 FastClix Lancets - Lancets - 00:00: Lancets - 00 Accu-Chek Accu-Chek 2021-0 No Accu-Chek FastClix FastClix 4-06 FastClix Lancets - Lancets - 00:00: Lancets - 00 Accu-Chek Accu-Chek 2021-0 No Accu-Chek FastClix FastClix 4-06 FastClix Lancets - Lancets - 00:00: Lancets - 00 Accu-Chek Accu-Chek 2021-0 No Accu-Chek FastClix FastClix 4-06 FastClix Lancets - Lancets - 00:00: Lancets - 00 Accu-Chek Accu-Chek 2021-0 No Accu-Chek FastClix FastClix 4-06 FastClix Lancets - Lancets - 00:00: Lancets - 00 Accu-Chek Accu-Chek 2021-0 No Accu-Chek FastClix FastClix 4-06 FastClix Lancets - Lancets - 00:00: Lancets - 00 Accu-Chek Accu-Chek 2021-0 No Accu-Chek FastClix FastClix 4-06 FastClix Lancets - Lancets - 00:00: Lancets - 00 Accu-Chek Accu-Chek 2021-0 No Accu-Chek FastClix FastClix 4- FastClix Lancets - Lancets - 00:00: Lancets - 00 Strips Strips 2021-0 2022- No Strips 01-26 00:00: 00:00 00 :00 Strips Strips 2021-0 2022- No Strips 01-26 00:00: 00:00 00 :00 Strips Strips 2021-0 2022- No Strips 01-26 00:00: 00:00 00 :00 Strips Strips 2021-0 2022- No Strips 01-26 00:00: 00:00 00 :00 Strips Strips 2021-0 2022- No Strips 01-26 00:00: 00:00 00 :00 MELOXICAM 2019- Yes [id number] TAKE 1 Univers 7.5 mg 2- 05 TABLET BY ity of tablet 00:00: MOUTH [place] 00 EVERY DAY Medical Branch MELOXICAM 2019-10 2020- No [id number] TAKE 1 Univers 7.5 mg 2-10-22 05 TABLET BY ity of tablet 00:00: 00:00 MOUTH [place] 00 :00 EVERY DAY Medical Branch MELOXICAM 2019-10 2020- No [id number] TAKE 1 Univers 7.5 mg 2-29 10-22 05 TABLET BY ity of tablet 00:00: 00:00 MOUTH [place] 00 :00 EVERY DAY Medical Branch DICLOFENAC 2019-10 Yes [id number] APPLY TO Univers SODIUM 1 % 1-30 05 AFFECTED ity o f gel 00:00: AREA TWICE [place] 00 A DAY Medical NEEDED FOR Branch PAIN APPLY 2 GRAMS DO NOT EXCEED 4 GRAMS IN A DAY DICLOFENAC 2019-10 Yes [id number] APPLY TO Univers SODIUM 1 % 1-30 05 AFFECTED ity o f gel 00:00: AREA TWICE [place] 00 A DAY Medical NEEDED FOR Branch PAIN APPLY 2 GRAMS DO NOT EXCEED 4 GRAMS IN A DAY DICLOFENAC 2019-10 2020- No [id number] APPLY TO Univers SODIUM 1 % 1-30 10-22 05 AFFECTED ity of gel 00:00: 00:00 AREA TWICE [place] 00 :00 A DAY Medical NEEDED FOR Branch PAIN APPLY 2 GRAMS DO NOT EXCEED 4 GRAMS IN A DAY DICLOFENAC 2019-10 2020- No [id number] APPLY TO Univers SODIUM 1 % 1-30 -31 05 AFFECTED ity of gel 00:00: 00:00 AREA TWICE [place] 00 :00 A DAY Medical NEEDED FOR Branch PAIN APPLY 2 GRAMS DO NOT EXCEED 4 GRAMS IN A DAY MELOXICAM 2019-10 Yes [id number] TAKE 1 Univers 7.5 mg 1-05 05 TABLET BY ity of tablet 00:00: MOUTH [place] 00 EVERY DAY Medical Branch MELOXICAM 2019-10 Yes [id number] TAKE 1 Univers 7.5 mg 1-05 05 TABLET BY ity of tablet 00:00: MOUTH [place] 00 EVERY DAY Medical Branch MELOXICAM 2019-10 Yes [id number] TAKE 1 Univers 7.5 mg 1-05 05 TABLET BY ity of tablet 00:00: MOUTH [place] 00 EVERY DAY Medical Branch MELOXICAM 2019-10 Yes [id number] TAKE 1 Univers 7.5 mg 1-05 05 TABLET BY ity of tablet 00:00: MOUTH [place] 00 EVERY DAY Medical Branch MELOXICAM 2019-10 Yes [id number] TAKE 1 Univers 7.5 mg 1-05 05 TABLET BY ity of tablet 00:00: MOUTH [place] 00 EVERY DAY Medical Branch MELOXICAM 2019-10 Yes [id number] TAKE 1 Univers 7.5 mg 1-05 05 TABLET BY ity of tablet 00:00: MOUTH [place] 00 EVERY DAY Medical Branch MELOXICAM 2019-10 Yes [id number] TAKE 1 Univers 7.5 mg 1-05 05 TABLET BY ity of tablet 00:00: MOUTH [place] 00 EVERY DAY Medical Branch MELOXICAM 2019-10 2020- No [id number] TAKE 1 Univers 7.5 mg -05 10-20 05 TABLET BY ity of tablet 00:00: 00:00 MOUTH [place] 00 :00 EVERY DAY Medical Branch meloxicam 2020- No 7.5mg Univer s (MOBIC) 04-24 ity of tablet 7.5 17:00: 04:59 [place] mg 00 :00 Medical Branch meloxicam 2020- No 7.5mg Univer s (MOBIC) 04-24 ity of tablet 7.5 17:00: 04:59 [place] mg 00 :00 Medical Branch meloxicam 2020- No 7.5mg Univer [...] of tablet 00:00: mouth [place] 00 daily. [facility] Branch meloxicam 2020-0 2020- No 7.5mg Take 1 Univ ers 7.5 mg 7-03 11-05 tablet by ity of tablet 00:00: 00:00 mouth [place] 00 :00 daily. [facility] Branch calcium 2020-0 Yes Take by Univers carbonate/v 6-29 mouth. ity of itamin D3 20:44: [place] (CALCIUM Medical 500 + D Branch ORAL) Cholecalcif 2020-0 Yes Take by Uni vers romi, 6-29 mouth. ity of Vitamin D3, 20:44: [place] (D3) [address] [place] [address] 50 mcg [place] (2,000 unit) capsule MILK 2020-0 Yes 350mg Take 350 Univers THISTLE 6-29 mg by ity of ORAL 20:44: mouth. [address] evening 2020-0 Yes 100mg Take 100 Unive rs primrose 6-29 mg by ity of oil 20:44: mouth. [place] (EVENING 32 Medical PRIMROSE Branch ORAL) calcium 2020-0 Yes Take by Univers carbonate/v 6-29 mouth. ity of itamin D3 20:44: [place] (CALCIUM Medical 500 + D Branch ORAL) Cholecalcif 2020-0 Yes Take by Uni vers romi, 6-29 mouth. ity of Vitamin D3, 20:44: [place] (D3) [address] [place] [address] 50 mcg [place] (2,000 unit) capsule MILK 2020-0 Yes 350mg Take 350 Univers THISTLE 6-29 mg by ity of ORAL 20:44: mouth. [address] evening 2020-0 Yes 100mg Take 100 Unive rs primrose 6-29 mg by ity of oil 20:44: mouth. [place] (EVENING 32 Medical PRIMROSE Branch ORAL) calcium 2020-0 Yes Take by Univers carbonate/v 6-29 mouth. ity of itamin D3 20:44: [place] (CALCIUM 32 Medical 500 + D Branch ORAL) Cholecalcif 2020-0 Yes Take by Uni vers romi, 6-29 mouth. ity of Vitamin D3, 20:44: [place] (D3) Medical 50 mcg Branch (2,000 unit) capsule MILK 2020-0 Yes 350mg Take 350 Univers THISTLE 6-29 mg by ity of ORAL 20:44: mouth. [place] [address] Medical Branch evening 2020-0 Yes 100mg Take 100 Unive rs primrose 6-29 mg by ity of oil 20:44: mouth. [place] (EVENING 32 Medical PRIMROSE Branch ORAL) calcium 2020-0 Yes Take by Univers carbonate/v 6-29 mouth. ity of itamin D3 20:44: [place] (CALCIUM 32 Medical 500 + D Branch ORAL) Cholecalcif 2020-0 Yes Take by Uni vers romi, 6-29 mouth. ity of Vitamin D3, 20:44: [place] (D3) Medical 50 mcg Branch (2,000 unit) capsule MILK 2020-0 Yes 350mg Take 350 Univers THISTLE 6-29 mg by ity of ORAL 20:44: mouth. [place] [address] Medical Branch evening 2020-0 Yes 100mg Take 100 Unive rs primrose 6-29 mg by ity of oil 20:44: mouth. [place] (EVENING 32 Medical PRIMROSE Branch ORAL) calcium 2020-0 Yes Take by Univers carbonate/v 6-29 mouth. ity of itamin D3 20:44: [place] (CALCIUM 32 Medical 500 + D Branch ORAL) Cholecalcif 2020-0 Yes Take by Uni vers romi, 6-29 mouth. ity of Vitamin D3, 20:44: [place] (D3) Medical 50 mcg Branch (2,000 unit) capsule MILK 2020-0 Yes 350mg Take 350 Univers THISTLE 6-29 mg by ity of ORAL 20:44: mouth. [place] [address] Medical Branch evening 2020-0 Yes 100mg Take 100 Unive rs primrose 6-29 mg by ity of oil 20:44: mouth. [place] (EVENING 32 Medical PRIMROSE Branch ORAL) calcium 2020-0 Yes Take by Univers carbonate/v 6-29 mouth. ity of itamin D3 20:44: [place] (CALCIUM 32 Medical 500 + D Branch ORAL) Cholecalcif 2020-0 Yes Take by Uni vers romi, 6-29 mouth. ity of Vitamin D3, 20:44: [place] (D3) Medical 50 mcg Branch (2,000 unit) capsule MILK 2020-0 Yes 350mg Take 350 Univers THISTLE 6-29 mg by ity of ORAL 20:44: mouth. [address] evening 2020-0 Yes 100mg Take 100 Unive rs primrose 6-29 mg by ity of oil 20:44: mouth. [place] (EVENING 32 Medical PRIMROSE Branch ORAL) calcium 2020-0 Yes Take by Univers carbonate/v 6-29 mouth. ity of itamin D3 20:44: [place] (CALCIUM 32 Medical 500 + D Branch ORAL) Cholecalcif 2020-0 Yes Take by Uni vers romi, 6-29 mouth. ity of Vitamin D3, 20:44: [place] (D3) Medical 50 mcg Branch (2,000 unit) capsule MILK 2020-0 Yes 350mg Take 350 Univers THISTLE 6-29 mg by ity of ORAL 20:44: mouth. [address] evening 2020-0 Yes 100mg Take 100 Unive rs primrose 6-29 mg by ity of oil 20:44: mouth. [place] (EVENING Medical PRIMROSE Branch ORAL) calcium 2020-0 Yes Take by Univers carbonate/v 6-29 mouth. ity of itamin D3 20:44: [place] (CALCIUM 32 Medical 500 + D Branch ORAL) Cholecalcif 2020-0 Yes Take by Uni vers romi, 6-29 mouth. ity of Vitamin D3, 20:44: [place] () Medical 50 mcg Branch (2,000 unit) capsule MILK 2020-0 Yes 350mg Take 350 Univers THISTLE 6-29 mg by ity of ORAL 20:44: mouth. [address] evening 2020-0 Yes 100mg Take 100 Unive rs primrose 6-29 mg by ity of oil 20:44: mouth. [place] (EVENING 32 Medical PRIMROSE Branch ORAL) calcium 2020-0 Yes Take by Univers carbonate/v 6-29 mouth. ity of itamin D3 20:44: [place] (CALCIUM 32 Medical 500 + D Branch ORAL) Cholecalcif 2020-0 Yes Take by Uni vers romi, 6-29 mouth. ity of Vitamin D3, 20:44: [place] (D3) 32 Medical 50 mcg Branch (2,000 unit) capsule MILK 2020-0 Yes 350mg Take 350 Univers THISTLE 6-29 mg by ity of ORAL 20:44: mouth. [place] [address] Medical [place] evening 2020-0 Yes 100mg Take 100 Unive rs primrose 6-29 mg by ity of oil 20:44: mouth. [place] (EVENING 32 Medical PRIMROSE Branch ORAL) calcium 2020-0 Yes Take by Univers carbonate/v 6-29 mouth. ity of itamin D3 20:44: [place] (CALCIUM 32 Medical 500 + D Branch ORAL) Cholecalcif 2020-0 Yes Take by Uni vers romi, 6-29 mouth. ity of Vitamin D3, 20:44: [place] () Medical 50 mcg Branch (2,000 unit) capsule MILK 2020-0 Yes 350mg Take 350 Univers THISTLE 6-29 mg by ity of ORAL 20:44: mouth. [address] evening 2020-0 Yes 100mg Take 100 Unive rs primrose 6-29 mg by ity of oil 20:44: mouth. [place] (EVENING Medical PRIMROSE Branch ORAL) calcium 2020-0 Yes Take by Univers carbonate/v 6-29 mouth. ity of itamin D3 20:44: [place] (CALCIUM Medical 500 + D Branch ORAL) Cholecalcif 2020-0 Yes Take by Uni vers romi, 6-29 mouth. ity of Vitamin D3, 20:44: [place] (D3) Medical 50 mcg Branch (2,000 unit) capsule MILK 2020-0 Yes 350mg Take 350 Univers THISTLE 6-29 mg by ity of ORAL 20:44: mouth. [address] evening 2020-0 Yes 100mg Take 100 Unive rs primrose 6-29 mg by ity of oil 20:44: mouth. [place] (EVENING Medical PRIMROSE Branch ORAL) calcium 2020-0 Yes Take by Univers carbonate/v 6-29 mouth. ity of itamin D3 20:44: [place] (CALCIUM 32 Medical 500 + D Branch ORAL) Cholecalcif 2020-0 Yes Take by Uni vers romi, 6-29 mouth. ity of Vitamin D3, 20:44: [place] (D3) Medical 50 mcg Branch (2,000 unit) capsule MILK 2020-0 Yes 350mg Take 350 Univers THISTLE 6-29 mg by ity of ORAL 20:44: mouth. [address] evening 2020-0 Yes 100mg Take 100 Unive rs primrose 6-29 mg by ity of oil 20:44: mouth. [place] (EVENING 32 Medical PRIMROSE Branch ORAL) calcium 2020-0 Yes Take by Univers carbonate/v 6-29 mouth. ity of itamin D3 20:44: [place] (CALCIUM 32 Medical 500 + D Branch ORAL) Cholecalcif 2020-0 Yes Take by Uni vers romi, 6-29 mouth. ity of Vitamin D3, 20:44: [place] () 32 Medical 50 mcg Branch (2,000 unit) capsule MILK 2020-0 Yes 350mg Take 350 Univers THISTLE 6-29 mg by ity of ORAL 20:44: mouth. [place] [address] Medical Branch evening 2020-0 Yes 100mg Take 100 Unive rs primrose 6-29 mg by ity of oil 20:44: mouth. [place] (EVENING 32 Medical PRIMROSE Branch ORAL) calcium 2020-0 Yes Take by Univers carbonate/v 6-29 mouth. ity of itamin D3 20:44: [place] (CALCIUM 32 Medical 500 + D Branch ORAL) Cholecalcif 2020-0 Yes Take by Uni vers romi, 6-29 mouth. ity of Vitamin D3, 20:44: [place] (D3) Medical 50 mcg Branch (2,000 unit) capsule MILK 2020-0 Yes 350mg Take 350 Univers THISTLE 6-29 mg by ity of ORAL 20:44: mouth. [place] [address] Medical [place] evening 2020-0 Yes 100mg Take 100 Unive rs primrose 6-29 mg by ity of oil 20:44: mouth. [place] (EVENING 32 Medical PRIMROSE Branch ORAL) calcium 2020-0 Yes Take by Univers carbonate/v 6-29 mouth. ity of itamin D3 20:44: [place] (CALCIUM 32 Medical 500 + D Branch ORAL) Cholecalcif 2020-0 Yes Take by Uni vers romi, 6-29 mouth. ity of Vitamin D3, 20:44: [place] (D3) Medical 50 mcg Branch (2,000 unit) capsule MILK 2020-0 Yes 350mg Take 350 Univers THISTLE 6-29 mg by ity of ORAL 20:44: mouth. [place] [address] Medical Branch evening 2020-0 Yes 100mg Take 100 Unive rs primrose 6-29 mg by ity of oil 20:44: mouth. [place] (EVENING 32 Medical PRIMROSE Branch ORAL) calcium 2020-0 Yes Take by Univers carbonate/v 6-29 mouth. ity of itamin D3 20:44: [place] (CALCIUM 32 Medical 500 + D Branch ORAL) Cholecalcif 2020-0 Yes Take by Uni vers romi, 6-29 mouth. ity of Vitamin D3, 20:44: [place] (D3) Medical 50 mcg Branch (2,000 unit) capsule MILK 2020-0 Yes 350mg Take 350 Univers THISTLE 6-29 mg by ity of ORAL 20:44: mouth. [place] [address] Medical Branch evening 2020-0 Yes 100mg Take 100 Unive rs primrose 6-29 mg by ity of oil 20:44: mouth. [place] (EVENING 32 Medical PRIMROSE Branch ORAL) calcium 2020-0 Yes Take by Univers carbonate/v 6-29 mouth. ity of itamin D3 20:44: [place] (CALCIUM 32 Medical 500 + D Branch ORAL) Cholecalcif 2020-0 Yes Take by Uni vers romi, 6-29 mouth. ity of Vitamin D3, 20:44: [place] (D3) Medical 50 mcg Branch (2,000 unit) capsule MILK 2020-0 Yes 350mg Take 350 [facility] THISTLE 6-29 mg by ity of ORAL 20:44: mouth. [place] [address] Medical Branch evening 2020-0 Yes 100mg Take 100 Unive rs primrose 6-29 mg by ity of oil 20:44: mouth. [place] (EVENING 32 Medical PRIMROSE Branch ORAL) calcium 2020-0 Yes Take by [facility] carbonate/v 6-29 mouth. ity of itamin D3 20:44: [place] (CALCIUM 32 Medical 500 + D Branch ORAL) Cholecalcif 2020-0 Yes Take by [facility] vers romi, 6-29 mouth. ity of Vitamin D3, 20:44: [place] (D3) Medical 50 mcg Branch (2,000 unit) capsule MILK 2020-0 Yes 350mg Take 350 [facility] THISTLE 6-29 mg by ity of ORAL 20:44: mouth. [place] [address] Medical Branch evening 2020-0 Yes 100mg Take 100 Unive rs primrose 6-29 mg by ity of oil 20:44: mouth. [place] (EVENING 32 Medical PRIMROSE Branch ORAL) calcium 2020-0 Yes Take by [facility] carbonate/v 6-29 mouth. ity of itamin D3 20:44: [place] (CALCIUM 32 Medical 500 + D Branch ORAL) Cholecalcif 2020-0 Yes Take by [facility] vers romi, 6-29 mouth. ity of Vitamin D3, 20:44: [place] (D3) Medical 50 mcg Branch (2,000 unit) capsule MILK 2020-0 Yes 350mg Take 350 [facility] THISTLE 6-29 mg by ity of ORAL 20:44: mouth. [address] Branch evening 2020-0 Yes 100mg Take 100 Unive rs primrose 6-29 mg by ity of oil 20:44: mouth. [place] (EVENING 32 Medical PRIMROSE Branch ORAL) calcium 2020-0 Yes Take by [facility] carbonate/v 6-29 mouth. ity of itamin D3 20:44: [place] (CALCIUM 32 Medical 500 + D Branch ORAL) Cholecalcif 2020-0 Yes Take by [facility] vers romi, 6-29 mouth. ity of Vitamin D3, 20:44: [place] (D3) Medical 50 mcg Branch (2,000 unit) capsule MILK 2020-0 Yes 350mg Take 350 [facility] THISTLE 6-29 mg by ity of ORAL 20:44: mouth. [place] [address] Medical [place] evening 2020-0 Yes 100mg Take 100 Unive rs primrose 6-29 mg by ity of oil 20:44: mouth. [place] (EVENING 32 Medical PRIMROSE Branch ORAL) calcium 2020-0 Yes Take by [facility] carbonate/v 6-29 mouth. ity of itamin D3 20:44: [place] (CALCIUM 32 Medical 500 + D Branch ORAL) Cholecalcif 2020-0 Yes Take by [facility] vers romi, 6-29 mouth. ity of Vitamin D3, 20:44: [place] (D3) Medical 50 mcg Branch (2,000 unit) capsule MILK 2020-0 Yes 350mg Take 350 [facility] THISTLE 6-29 mg by ity of ORAL 20:44: mouth. [address] Branch evening 2020-0 Yes 100mg Take 100 Unive rs primrose 6-29 mg by ity of oil 20:44: mouth. [place] (EVENING 32 Medical PRIMROSE Branch ORAL) calcium 2020-0 Yes Take by [facility] carbonate/v 6-29 mouth. ity of itamin D3 20:44: [place] (CALCIUM 32 Medical 500 + D Branch ORAL) Cholecalcif 2020-0 Yes Take by [facility] vers romi, 6-29 mouth. ity of Vitamin D3, 20:44: [place] (D3) 32 Medical 50 mcg Branch (2,000 unit) capsule MILK 2020-0 Yes 350mg Take 350 [facility] THISTLE 6-29 mg by ity of ORAL 20:44: mouth. [place] 32 Medical Branch evening 2020-0 Yes 100mg Take 100 Unive rs primrose 6-29 mg by ity of oil 20:44: mouth. [place] (EVENING 32 Medical PRIMROSE Branch ORAL) melatonin 3 2020-0 Yes 3mg Take 3 mg U nivers mg tablet 6-29 by mouth 3 ity of 20:38: (three) [place] 55 times Medical daily. Branch cinnamon 2020-0 Yes Take by [facility] Silica-chromi 6-29 mouth. ity of um-ALA 20:38: [place] 500-100-150 55 Medical mg-mcg-mg Branch Cap melatonin 3 2020-0 Yes 3mg Take 3 mg U nivers mg tablet 6-29 by mouth 3 ity of 20:38: (three) [place] 55 times Medical daily. Branch cinnamon 2020-0 Yes Take by [facility] [employer] bark-chromi 6-29 mouth. ity of um-ALA 20:38: [place] 500-100-150 55 Medical mg-mcg-mg Branch Cap melatonin 3 2020-0 Yes 3mg Take 3 mg U nivers mg tablet 6-29 by mouth 3 ity of 20:38: (three) [place] 55 times Medical daily. Branch cinnamon 2020-0 Yes Take by [employer] [place] Silica-chromi 6-29 mouth. ity of um-ALA 20:38: [place] 500-100-150 55 Medical mg-mcg-mg Branch Cap melatonin 3 2020-0 Yes 3mg Take 3 mg U nivers mg tablet 6-29 by mouth 3 ity of 20:38: (three) [place] 55 times Medical daily. Branch cinnamon 2020-0 Yes Take by [employer] [facility] Silica-chromi 6-29 mouth. ity of um-ALA 20:38: [place] 500-100-150 55 Medical mg-mcg-mg Branch Cap melatonin 3 2020-0 Yes 3mg Take 3 mg U nivers mg tablet 6-29 by mouth 3 ity of 20:38: (three) [place] 55 times Medical daily. Branch cinnamon 2020-0 Yes Take by [employer] bark-chromi 6-29 mouth. ity of um-ALA 20:38: [place] 500-100-150 55 Medical mg-mcg-mg Branch Cap melatonin 3 2020-0 Yes 3mg Take 3 mg U nivers mg tablet 6-29 by mouth 3 ity of 20:38: (three) [place] 55 times Medical daily. Branch cinnamon 2020-0 Yes Take by [facility] Starline-chromi 04-20 mouth. ity of um-ALA 20:38: [place] 500-100-150 55 Medical mg-mcg-mg Branch Cap melatonin 3 2020-0 Yes 3mg Take 3 mg U nivers mg tablet 6-29 by mouth 3 ity of 20:38: (three) [place] 55 times Medical daily. Branch cinnamon 2020-0 Yes Take by [facility] Starline-chromi 04-20 mouth. ity of um-ALA 20:38: [place] 500-100-150 55 Medical mg-mcg-mg Branch Cap melatonin 3 2020-0 Yes 3mg Take 3 mg U nivers mg tablet 6-29 by mouth 3 ity of 20:38: (three) [place] 55 times Medical daily. Branch cinnamon 2020-0 Yes Take by [facility] Starline-chromi 6 mouth. ity of um-ALA 20:38: [place] 500-100-150 55 Medical mg-mcg-mg Branch Cap melatonin 3 2020-0 Yes 3mg Take 3 mg U nivers mg tablet 6-29 by mouth 3 ity of 20:38: (three) [place] 55 times Medical daily. Branch cinnamon 2020-0 Yes Take by [facility] Starline-chromi 04-20 mouth. ity of um-ALA 20:38: [place] 500-100-150 55 Medical mg-mcg-mg Branch Cap melatonin 3 2020-0 Yes 3mg Take 3 mg U nivers mg tablet 6-29 by mouth 3 ity of 20:38: (three) [place] 55 times Medical daily. Branch cinnamon 2020-0 Yes Take by [facility] Starline-chromi - mouth. ity of um-ALA 20:38: [place] 500-100-150 55 Medical mg-mcg-mg Branch Cap melatonin 3 2020-0 Yes 3mg Take 3 mg U nivers mg tablet 6-29 by mouth 3 ity of 20:38: (three) [place] 55 times Medical daily. Branch cinnamon 2020-0 Yes Take by [facility] bark-chromi 6- mouth. ity of um-ALA 20:38: [place] 500-100-150 55 Medical mg-mcg-mg Branch Cap melatonin 3 2020-0 Yes 3mg Take 3 mg U nivers mg tablet 6-29 by mouth 3 ity of 20:38: (three) [place] 55 times Medical daily. Branch cinnamon 2020-0 Yes Take by [facility] Starline-chromi 6- mouth. ity of um-ALA 20:38: [place] 500-100-150 55 Medical mg-mcg-mg Branch Cap melatonin 3 2020-0 Yes 3mg Take 3 mg U nivers mg tablet 6-29 by mouth 3 ity of 20:38: (three) [place] 55 times Medical daily. Branch cinnamon 2020-0 Yes Take by [facility] Starline-chromi 6- mouth. ity of um-ALA 20:38: [place] 500-100-150 55 Medical mg-mcg-mg Branch Cap melatonin 3 2020-0 Yes 3mg Take 3 mg U nivers mg tablet 6-29 by mouth 3 ity of 20:38: (three) [place] 55 times Medical daily. Branch cinnamon 2020-0 Yes Take by [facility] Starline-chromi 6- mouth. ity of um-ALA 20:38: [place] 500-100-150 55 Medical mg-mcg-mg Branch Cap melatonin 3 2020-0 Yes 3mg Take 3 mg U nivers mg tablet 6-29 by mouth 3 ity of 20:38: (three) [place] 55 times Medical daily. Branch cinnamon 2020-0 Yes Take by [facility] MedLinkchromi 04-20 mouth. ity of um-ALA 20:38: [place] 500-100-150 55 Medical mg-mcg-mg Branch Cap melatonin 3 2020-0 Yes 3mg Take 3 mg U nivers mg tablet 6-29 by mouth 3 ity of 20:38: (three) [place] 55 times Medical daily. Branch cinnamon 2020-0 Yes Take by [facility] Starline-chromi 6- mouth. ity of um-ALA 20:38: [place] 500-100-150 55 Medical mg-mcg-mg Branch Cap melatonin 3 2020-0 Yes 3mg Take 3 mg U nivers mg tablet 6-29 by mouth 3 ity of 20:38: (three) [place] 55 times Medical daily. Branch cinnamon 2020-0 Yes Take by [facility] Starline-chromi 6-29 mouth. ity of um-ALA 20:38: [place] 500-100-150 55 Medical mg-mcg-mg Branch Cap melatonin 3 2020-0 Yes 3mg Take 3 mg U nivers mg tablet 6-29 by mouth 3 ity of 20:38: (three) [place] 55 times Medical daily. Branch cinnamon 2020-0 Yes Take by [facility] Starline-chromi 04-20 mouth. ity of um-ALA 20:38: [place] 500-100-150 55 Medical mg-mcg-mg Branch Cap melatonin 3 2020-0 Yes 3mg Take 3 mg U nivers mg tablet 6-29 by mouth 3 ity of 20:38: (three) [place] 55 times Medical daily. Branch cinnamon 2020-0 Yes Take by [facility] Starline-chromi 04-20 mouth. ity of um-ALA 20:38: [place] 500-100-150 55 Medical mg-mcg-mg Branch Cap melatonin 3 2020-0 Yes 3mg Take 3 mg U nivers mg tablet 6-29 by mouth 3 ity of 20:38: (three) [place] 55 times Medical daily. Branch cinnamon 2020-0 Yes Take by [facility] Starline-chromi 04-20 mouth. ity of um-ALA 20:38: [place] 500-100-150 55 Medical mg-mcg-mg Branch Cap melatonin 3 2020-0 Yes 3mg Take 3 mg U nivers mg tablet 6-29 by mouth 3 ity of 20:38: (three) [place] 55 times Medical daily. Branch cinnamon 2020-0 Yes Take by [facility] Starline-chromi 04-20 mouth. ity of um-ALA 20:38: [place] 500-100-150 55 Medical mg-mcg-mg Branch Cap melatonin 3 2020-0 Yes 3mg Take 3 mg U nivers mg tablet 6-29 by mouth 3 ity of 20:38: (three) [place] 55 times Medical daily. Branch cinnamon 2020-0 Yes Take by [facility] Starline-chromi 04-20 mouth. ity of um-ALA 20:38: [place] 500-100-150 55 Medical mg-mcg-mg Branch Cap melatonin 3 2020-0 Yes 3mg Take 3 mg U nivers mg tablet 6-29 by mouth 3 ity of 20:38: (three) [place] 55 times Medical daily. Branch cinnamon 2020-0 Yes Take by [facility] bark-chromi 6- mouth. ity of um-ALA 20:38: [...] mouth ity o f tablet 20:35: daily. [place] [address] Medical Branch amitriptyli 2020-0 Yes 100mg Take 100 U nivers ne 75 mg 6-29 mg by ity of tablet 20:35: mouth at [place] 30 bedtime. Medical Branch verapamil 2020-0 Yes 120mg Take 120 Uni vers (VERELAN 6-29 mg by ity of PM) 120 mg 20:35: mouth at [place] 24 hr 30 bedtime. Medical capsule Branch metFORMIN 2020-0 Yes 500mg Take 500 Uni vers 500 mg 6-29 mg by ity of tablet 20:35: mouth 2 [place] 30 (two) Medical times Branch daily with meals. rOPINIRole 2020-0 Yes 2mg Take 2 mg Un edmond 2 mg tablet 6-29 by mouth ity of 20:35: at [place] 30 bedtime. Medical Branch venlafaxine 2020-0 Yes 150mg Take 150 U nivers XR 150 mg 6-29 mg by ity of 24 hr 20:35: mouth [place] capsule 30 daily with Medica l breakfast. Branch pantoprazol 2020-0 Yes 40mg Take 40 mg Univers e 40 mg EC 6-29 by mouth ity o f tablet 20:35: daily. [place] 30 Medical Branch amitriptyli 2020-0 Yes 100mg Take 100 U nivers ne 75 mg 6-29 mg by ity of tablet 20:35: mouth at [place] 30 bedtime. Medical Branch verapamil 2020-0 Yes [...] mouth ity o f tablet 20:35: daily. [place] Medical Branch amitriptyli 2020-0 Yes 100mg Take 100 U nivers ne 75 mg 6-29 mg by ity of tablet 20:35: mouth at [place] 30 bedtime. Medical Branch verapamil 2020-0 Yes 120mg Take 120 Uni vers (VERELAN 6-29 mg by ity of PM) 120 mg 20:35: mouth at [place] 24 hr 30 bedtime. Medical capsule Branch metFORMIN 2020-0 Yes 500mg Take 500 Uni vers 500 mg 6-29 mg by ity of tablet 20:35: mouth 2 [place] 30 (two) Medical times Branch daily with meals. rOPINIRole 2020-0 Yes 2mg Take 2 mg Un edmond 2 mg tablet 6-29 by mouth ity of 20:35: at [place] 30 bedtime. Medical Branch venlafaxine 2020-0 Yes 150mg Take 150 U nivers XR 150 mg 6-29 mg by ity of 24 hr 20:35: mouth [place] capsule 30 daily with Medica l breakfast. Branch pantoprazol 2020-0 Yes 40mg Take 40 mg [facility] e 40 mg EC 6-29 by mouth ity o f tablet 20:35: daily. [place] 30 Medical Branch amitriptyli 2020-0 Yes 100mg [...] by ity of tablet 20:35: mouth 2 [place] 30 (two) Medical times Branch daily with [...] mouth ity o f tablet 20:35: daily. [place] 30 Medical Branch amitriptyli 2020-0 Yes 100mg [...] by ity of tablet 20:35: mouth 2 [place] 30 (two) Medical times Branch daily with [...] mouth ity o f tablet 20:35: daily. [place] 30 Medical Branch amitriptyli 2020-0 Yes 100mg [...] by ity of tablet 20:35: mouth 2 [place] 30 (two) Medical times Branch daily with meals. rOPINIRole 2020-0 Yes 2mg Take 2 mg Un edmond 2 mg tablet 6-29 by mouth ity of 20:35: at [place] 30 bedtime. Medical Branch venlafaxine 2020-0 Yes 150mg Take 150 U nivers XR 150 mg 6-29 mg by ity of 24 hr 20:35: mouth [place] capsule 30 daily with Medica l breakfast. Branch pantoprazol 2020-0 Yes 40mg Take 40 mg [facility] e 40 mg EC 6-29 by mouth ity o f tablet 20:35: daily. [place] 30 Medical Branch amitriptyli 2020-0 Yes 100mg Take 100 U nivers ne 75 mg 6-29 mg by ity of tablet 20:35: mouth at [place] 30 bedtime. Medical Branch verapamil 2020-0 Yes 120mg Take 120 Uni vers (VERELAN 6-29 mg by ity of PM) 120 mg 20:35: mouth at [place] 24 hr 30 bedtime. Medical capsule Branch metFORMIN 2020-0 Yes 500mg Take 500 Uni vers 500 mg 6-29 mg by ity of tablet 20:35: mouth 2 [place] 30 (two) Medical times Branch daily with meals. rOPINIRole 2020-0 Yes 2mg Take 2 mg Un edmond 2 mg tablet 6-29 by mouth ity of 20:35: at [place] 30 bedtime. Medical Branch venlafaxine 2020-0 Yes 150mg Take 150 U nivers XR 150 mg 6-29 mg by ity of 24 hr 20:35: mouth [place] capsule 30 daily with Medica l breakfast. Branch pantoprazol 2020-0 Yes 40mg Take 40 mg [facility] e 40 mg EC 6-29 by mouth ity o f tablet 20:35: daily. [place] 30 Medical Branch amitriptyli 2020-0 Yes 100mg Take 100 U nivers ne 75 mg 6-29 mg by ity of tablet 20:35: mouth at [place] 30 bedtime. Medical Branch verapamil 2020-0 Yes [...] by ity of tablet 20:35: mouth at [place] 30 bedtime. Medical Branch verapamil 2020-0 Yes 120mg Take 120 Uni vers (VERELAN 6-29 mg by ity of PM) 120 mg 20:35: mouth at [place] 24 hr 30 bedtime. Medical capsule Branch metFORMIN 2020-0 Yes 500mg Take 500 Uni vers 500 mg 6-29 mg by ity of tablet 20:35: mouth 2 (two) Medical times Branch daily with meals. rOPINIRole 2020-0 Yes 2mg Take 2 mg Un ed[place] 2 mg tablet 6-29 by mouth ity of 20:35: at [place] 30 bedtime. Medical Branch venlafaxine 2020-0 Yes [...] 6-29 by mouth ity of 20:35: at [place] 30 bedtime. Medical Branch venlafaxine 2020-0 Yes [...] by ity of tablet 20:35: mouth at [place] 30 bedtime. Medical Branch verapamil 2020-0 Yes 120mg Take 120 [facility] vers (VERELAN 6-29 mg by ity of PM) 120 mg 20:35: mouth at [place] 24 hr 30 bedtime. Medical capsule Branch metFORMIN 2020-0 Yes 500mg Take 500 Uni vers 500 mg 6-29 mg by ity of tablet 20:35: mouth 2 [place] (two) Medical times Branch daily with meals. rOPINIRole 2020-0 Yes 2mg Take 2 mg Un [place] 2 mg tablet 6-29 by mouth ity of 20:35: at [place] 30 bedtime. Medical Branch venlafaxine 2020-0 Yes [...] by ity of tablet 20:35: mouth at [place] 30 bedtime. Medical Branch verapamil 2020-0 Yes 120mg Take 120 Uni vers (VERELAN 6-29 mg by ity of PM) 120 mg 20:35: mouth at [place] 24 hr 30 bedtime. Medical capsule Branch metFORMIN 2020-0 Yes 500mg Take 500 Uni vers 500 mg 6-29 mg by ity of tablet 20:35: mouth 2 [place] 30 (two) Medical times Branch daily with [...] by ity of tablet 20:35: mouth 2 [place] 30 (two) Medical times Branch daily with [...] by ity of tablet 20:35: mouth 2 [place] 30 (two) Medical times Branch daily with [...] by ity of tablet 20:35: mouth 2 [place] 30 (two) Medical times Branch daily with [...] by ity of tablet 20:35: mouth 2 [place] 30 (two) Medical times Branch daily with [...] mouth ity o f tablet 20:35: daily. [place] Medical Branch amitriptyli 2020-0 Yes 100mg Take [...] by ity of tablet 20:35: mouth 2 [place] 30 (two) Medical times Branch daily with [...] mouth ity o f tablet 20:35: daily. [place] Medical Branch amitriptyli 2020-0 Yes 100mg Take [...] mouth ity o f tablet 20:35: daily. [place] [address] Medical Branch amitriptyli 2020-0 Yes 100mg Take 100 U nivers ne 75 mg 6-29 mg by ity of tablet 20:35: mouth at [place] 30 bedtime. Medical Branch verapamil 2020-0 Yes 120mg Take 120 Uni vers (VERELAN 6-29 mg by ity of PM) 120 mg 20:35: mouth at [place] 24 hr 30 bedtime. Medical capsule Branch metFORMIN 2020-0 Yes 500mg Take 500 Uni vers 500 mg 6-29 mg by ity of tablet 20:35: mouth 2 [place] 30 (two) Medical times Branch daily with meals. rOPINIRole 2020-0 Yes 2mg Take 2 mg Un [place] 2 mg tablet 6-29 by mouth ity of 20:35: at [place] 30 bedtime. Medical Branch venlafaxine 2020-0 Yes 150mg Take 150 U nivers XR 150 mg 6-29 mg by ity of 24 hr 20:35: mouth [place] capsule 30 daily with Medica l breakfast. Branch pantoprazol 2020-0 Yes 40mg Take 40 mg [facility] e 40 mg EC 6-29 by mouth ity o f tablet 20:35: daily. [place] [address] Medical Branch amitriptyli 2020-0 Yes 100mg Take 100 U nivers ne 75 mg 6-29 mg by ity of tablet 20:35: mouth at [place] 30 bedtime. Medical Branch verapamil 2020-0 Yes 120mg Take 120 Uni vers (VERELAN 6-29 mg by ity of PM) 120 mg 20:35: mouth at [place] 24 hr 30 bedtime. Medical capsule Branch metFORMIN 2020-0 Yes 500mg Take 500 Uni vers 500 mg 6-29 mg by ity of tablet 20:35: mouth 2 [place] 30 (two) Medical times Branch daily with meals. rOPINIRole 2020-0 Yes 2mg Take 2 mg Un [place] 2 mg tablet 6-29 by mouth ity of 20:35: at [place] 30 bedtime. Medical Branch venlafaxine 2020-0 Yes 150mg Take 150 U nivers XR 150 mg 6-29 mg by ity of 24 hr 20:35: mouth [place] capsule 30 daily with Medica l breakfast. Branch pantoprazol 2020-0 Yes 40mg Take 40 mg [facility] e 40 mg EC 6-29 by mouth ity o f tablet 20:35: daily. [place] Medical Branch amitriptyli 2020-0 Yes 100mg Take 100 U nivers ne 75 mg 6-29 mg by ity of tablet 20:35: mouth at [place] 30 bedtime. Medical Branch verapamil 2020-0 Yes 120mg Take 120 Uni vers (VERELAN 6-29 mg by ity of PM) 120 mg 20:35: mouth at [place] 24 hr 30 bedtime. Medical capsule Branch metFORMIN 2020-0 Yes 500mg Take 500 Uni vers 500 mg 6-29 mg by ity of tablet 20:35: mouth 2 [place] 30 (two) Medical times Branch daily with meals. rOPINIRole 2020-0 Yes 2mg Take 2 mg Un [place] 2 mg tablet 6-29 by mouth ity of 20:35: at [place] 30 bedtime. Medical Branch venlafaxine 2020-0 Yes 150mg Take 150 U nivers XR 150 mg 6-29 mg by ity of 24 hr 20:35: mouth [place] capsule 30 daily with Medica l breakfast. Branch pantoprazol 2020-0 Yes 40mg Take 40 mg [facility] e 40 mg EC 6-29 by mouth ity o f tablet 20:35: daily. [place] Medical Branch amitriptyli 2020-0 Yes 100mg Take 100 U nivers ne 75 mg 6-29 mg by ity of tablet 20:35: mouth at [place] 30 bedtime. Medical Branch verapamil 2020-0 Yes 120mg Take 120 Uni vers (VERELAN 6-29 mg by ity of PM) 120 mg 20:35: mouth at [place] 24 hr 30 bedtime. Medical capsule Branch metFORMIN 2020-0 Yes 500mg Take 500 Uni vers 500 mg 6-29 mg by ity of tablet 20:35: mouth 2 [place] 30 (two) Medical times Branch daily with meals. rOPINIRole 2020-0 Yes 2mg Take 2 mg Un [place] 2 mg tablet 6-29 by mouth ity of 20:35: at [place] 30 bedtime. Medical Branch venlafaxine 2020-0 Yes 150mg Take 150 U nivers XR 150 mg 6-29 mg by ity of 24 hr 20:35: mouth [place] capsule 30 daily with Medica l breakfast. Branch pantoprazol 2020-0 Yes 40mg Take 40 mg [facility] e 40 mg EC 6-29 by mouth ity o f tablet 20:35: daily. [place] [address] Medical Branch amitriptyli 2020-0 Yes 100mg Take 100 U nivers ne 75 mg 6-29 mg by ity of tablet 20:35: mouth at [place] 30 bedtime. Medical Branch calcium 2020-0 Yes Take by [facility] carbonate/v 04-20 mouth. ity of itamin D3 15:44: [place] (CALCIUM 32 Medical 500 + D Branch ORAL) Cholecalcif 2020-0 Yes Take by Uni vers romi, 04-20 mouth. ity of Vitamin D3, 15:44: [place] () Medical 50 mcg Branch (2,000 unit) capsule MILK 2020-0 Yes 350mg Take 350 [facility] THISTLE 6-29 mg by ity of ORAL 15:44: mouth. [address] evening 2020-0 Yes 100mg Take 100 Unive rs primrose 6-29 mg by ity of oil 15:44: mouth. [place] (EVENING 32 Medical PRIMROSE Branch ORAL) calcium 2020-0 Yes Take by [facility] carbonate/v -29 mouth. ity of itamin D3 15:44: [place] (CALCIUM 32 Medical 500 + D Branch ORAL) Cholecalcif 2020-0 Yes Take by [facility] vers romi, 04-20 mouth. ity of Vitamin D3, 15:44: [place] (D3) Medical 50 mcg Branch (2,000 unit) capsule MILK 2020-0 Yes 350mg Take 350 [facility] THISTLE 6-29 mg by ity of ORAL 15:44: mouth. [address] evening 2020-0 Yes 100mg Take 100 Unive rs primrose 6-29 mg by ity of oil 15:44: mouth. [place] (EVENING 32 Medical PRIMROSE Branch ORAL) calcium 2020-0 Yes Take by [facility] carbonate/v 6-29 mouth. ity of itamin D3 15:44: [place] (CALCIUM 32 Medical 500 + D Branch ORAL) Cholecalcif 2020-0 Yes Take by Uni vers romi, 6- mouth. ity of Vitamin D3, 15:44: [place] (D3) Medical 50 mcg Branch (2,000 unit) capsule MILK 2020-0 Yes 350mg Take 350 [facility] THISTLE 6-29 mg by ity of ORAL 15:44: mouth. [address] evening 2020-0 Yes 100mg Take 100 Unive rs primrose 6-29 mg by ity of oil 15:44: mouth. [place] (EVENING 32 Medical PRIMROSE Branch ORAL) calcium 2020-0 Yes Take by [facility] carbonate/v 6-29 mouth. ity of itamin D3 15:44: [place] (CALCIUM 32 Medical 500 + D Branch ORAL) Cholecalcif 2020-0 Yes Take by [facility] vers romi, 6-29 mouth. ity of Vitamin D3, 15:44: [place] (D3) Medical 50 mcg Branch (2,000 unit) capsule MILK 2020-0 Yes 350mg Take 350 [facility] THISTLE 6-29 mg by ity of ORAL 15:44: mouth. [address] evening 2020-0 Yes 100mg Take 100 Unive rs primrose 6-29 mg by ity of oil 15:44: mouth. [place] (EVENING Medical PRIMROSE Branch ORAL) calcium 2020-0 Yes Take by [facility] carbonate/v 6-29 mouth. ity of itamin D3 15:44: [place] (CALCIUM Medical 500 + D Branch ORAL) Cholecalcif 2020-0 Yes Take by [facility] vers romi, 6-29 mouth. ity of Vitamin D3, 15:44: [place] (D3) Medical 50 mcg Branch (2,000 unit) capsule MILK 2020-0 Yes 350mg Take 350 [facility] THISTLE 6-29 mg by ity of ORAL 15:44: mouth. [address] evening 2020-0 Yes 100mg Take 100 Unive rs primrose 6-29 mg by ity of oil 15:44: mouth. [place] (EVENING Medical PRIMROSE Branch ORAL) calcium 2020-0 Yes Take by [facility] carbonate/v 6-29 mouth. ity of itamin D3 15:44: [place] (CALCIUM 32 Medical 500 + D Branch ORAL) Cholecalcif 2020-0 Yes Take by [facility] vers romi, 6-29 mouth. ity of Vitamin D3, 15:44: [place] (D3) Medical 50 mcg Branch (2,000 unit) capsule MILK 2020-0 Yes 350mg Take 350 [facility] THISTLE 6-29 mg by ity of ORAL 15:44: mouth. [address] evening 2020-0 Yes 100mg Take 100 Unive rs primrose 6-29 mg by ity of oil 15:44: mouth. [place] (EVENING 32 Medical PRIMROSE Branch ORAL) calcium 2020-0 Yes Take by [facility] carbonate/v 6-29 mouth. ity of itamin D3 15:44: [place] (CALCIUM 32 Medical 500 + D Branch ORAL) Cholecalcif 2020-0 Yes Take by Uni vers romi, 6-29 mouth. ity of Vitamin D3, 15:44: [place] (D3) Medical 50 mcg Branch (2,000 unit) capsule MILK 2020-0 Yes 350mg Take 350 [facility] THISTLE 6-29 mg by ity of ORAL 15:44: mouth. [place] [address] Medical Branch evening 2020-0 Yes 100mg Take 100 Unive rs primrose 6-29 mg by ity of oil 15:44: mouth. [place] (EVENING 32 Medical PRIMROSE Branch ORAL) calcium 2020-0 Yes Take by [facility] carbonate/v 6-29 mouth. ity of itamin D3 15:44: [place] (CALCIUM 32 Medical 500 + D Branch ORAL) Cholecalcif 2020-0 Yes Take by Uni vers romi, 6-29 mouth. ity of Vitamin D3, 15:44: [place] (D3) Medical 50 mcg Branch (2,000 unit) capsule MILK 2020-0 Yes 350mg Take 350 [facility] THISTLE 6-29 mg by ity of ORAL 15:44: mouth. [place] [address] Medical [place] evening 2020-0 Yes 100mg Take 100 Unive rs primrose 6-29 mg by ity of oil 15:44: mouth. [place] (EVENING 32 Medical PRIMROSE Branch ORAL) calcium 2020-0 Yes Take by [facility] carbonate/v 6-29 mouth. ity of itamin D3 15:44: [place] (CALCIUM 32 Medical 500 + D Branch ORAL) Cholecalcif 2020-0 Yes Take by Uni vers romi, 6-29 mouth. ity of Vitamin D3, 15:44: [place] (D3) Medical 50 mcg Branch (2,000 unit) capsule MILK 2020-0 Yes 350mg Take 350 [facility] THISTLE 6-29 mg by ity of ORAL 15:44: mouth. [address] evening 2020-0 Yes 100mg Take 100 Unive rs primrose 6-29 mg by ity of oil 15:44: mouth. [place] (EVENING 32 Medical PRIMROSE Branch ORAL) melatonin 3 2020-0 Yes 3mg Take 3 mg U nivers mg tablet 04-20 by mouth 3 ity of 15:38: (three) [place] 55 times Medical daily. Branch cinnamon 2020-0 Yes Take by [facility] Starline-chromi 6-29 mouth. ity of um-ALA 15:38: [place] 500-100-150 55 Medical mg-mcg-mg Branch Cap melatonin 3 2020-0 Yes 3mg Take 3 mg U nivers mg tablet 6-29 by mouth 3 ity of 15:38: (three) [place] 55 times Medical daily. Branch cinnamon 2020-0 Yes Take by [facility] Starline-chromi 6-29 mouth. ity of um-ALA 15:38: [place] 500-100-150 55 Medical mg-mcg-mg Branch Cap melatonin 3 2020-0 Yes 3mg Take 3 mg U nivers mg tablet 6-29 by mouth 3 ity of 15:38: (three) [place] 55 times Medical daily. Branch cinnamon 2020-0 Yes Take by [facility] Starline-chromi 6-29 mouth. ity of um-ALA 15:38: [place] 500-100-150 55 Medical mg-mcg-mg Branch Cap melatonin 3 2020-0 Yes 3mg Take 3 mg U nivers mg tablet 6-29 by mouth 3 ity of 15:38: (three) [place] 55 times Medical daily. Branch cinnamon 2020-0 Yes Take by [facility] Starline-chromi 6-29 mouth. ity of um-ALA 15:38: [place] 500-100-150 55 Medical mg-mcg-mg Branch Cap melatonin 3 2020-0 Yes 3mg Take 3 mg U nivers mg tablet 6-29 by mouth 3 ity of 15:38: (three) [place] 55 times Medical daily. Branch cinnamon 2020-0 Yes Take by [facility] Starline-chromi 6-29 mouth. ity of um-ALA 15:38: [place] 500-100-150 55 Medical mg-mcg-mg Branch Cap melatonin 3 2020-0 Yes 3mg Take 3 mg U nivers mg tablet 6-29 by mouth 3 ity of 15:38: (three) [place] 55 times Medical daily. Branch cinnamon 2020-0 Yes Take by [place] [facility] bark-chromi 6-29 mouth. ity of um-ALA 15:38: [place] 500-100-150 55 Medical mg-mcg-mg Branch Cap melatonin 3 2020-0 Yes 3mg Take 3 mg U nivers mg tablet 6-29 by mouth 3 ity of 15:38: (three) [place] 55 times Medical daily. Branch cinnamon 2020-0 Yes Take by [facility] bark-chromi 6-29 mouth. ity of um-ALA 15:38: [place] 500-100-150 55 Medical mg-mcg-mg Branch Cap melatonin 3 2020-0 Yes 3mg Take 3 mg U nivers mg tablet 6-29 by mouth 3 ity of 15:38: (three) [place] 55 times Medical daily. Branch cinnamon 2020-0 Yes Take by [facility] bark-chromi 6-29 mouth. ity of um-ALA 15:38: [place] 500-100-150 55 Medical mg-mcg-mg Branch Cap melatonin 3 2020-0 Yes 3mg Take 3 mg U nivers mg tablet 6-29 by mouth 3 ity of 15:38: (three) [place] 55 times Medical daily. Branch cinnamon 2020-0 Yes Take by [facility] bark-chromi 6-29 mouth. ity of um-ALA 15:38: [...] mouth ity o f tablet 15:35: daily. [place] 30 Medical Branch amitriptyli 2020-0 Yes 100mg [...] by ity of tablet 15:35: mouth 2 [place] 30 (two) Medical times Branch daily with [...] mouth ity o f tablet 15:35: daily. [place] 30 Medical Branch amitriptyli 2020-0 Yes 100mg [...] by ity of tablet 15:35: mouth 2 [place] 30 (two) Medical times Branch daily with [...] mouth ity o f tablet 15:35: daily. [place] 30 Medical Branch amitriptyli 2020-0 Yes 100mg Take 100 U nivers ne 75 mg 6-29 mg by ity of tablet 15:35: mouth at [place] 30 bedtime. Medical Branch verapamil 2020-0 Yes 120mg Take 120 Uni vers (VERELAN 6-29 mg by ity of PM) 120 mg 15:35: mouth at [place] 24 hr 30 bedtime. Medical capsule Branch metFORMIN 2020-0 Yes 500mg Take 500 Uni vers 500 mg 6-29 mg by ity of tablet 15:35: mouth 2 [place] 30 (two) Medical times Branch daily with meals. rOPINIRole 2020-0 Yes 2mg Take 2 mg [facility] [place] 2 mg tablet 6-29 by mouth ity of 15:35: at [place] 30 bedtime. Medical Branch venlafaxine 2020-0 Yes 150mg Take 150 U nivers XR 150 mg 6-29 mg by ity of 24 hr 15:35: mouth [place] capsule 30 daily with Medica l breakfast. Branch pantoprazol 2020-0 Yes 40mg Take 40 mg [facility] e 40 mg EC 6-29 by mouth ity o f tablet 15:35: daily. [place] 30 Medical Branch amitriptyli 2020-0 Yes 100mg [...] mouth ity o f tablet 15:35: daily. [place] 30 Medical Branch amitriptyli 2020-0 Yes 100mg Take 100 U nivers ne 75 mg 6-29 mg by ity of tablet 15:35: mouth at [place] 30 bedtime. Medical Branch verapamil 2020-0 Yes 120mg Take 120 Uni vers (VERELAN 6-29 mg by ity of PM) 120 mg 15:35: mouth at [place] 24 hr 30 bedtime. Medical capsule Branch metFORMIN 2020-0 Yes 500mg Take 500 Uni vers 500 mg 6-29 mg by ity of tablet 15:35: mouth 2 [place] 30 (two) Medical times Branch daily with meals. rOPINIRole 2020-0 Yes 2mg Take 2 mg [facility] [place] 2 mg tablet 6-29 by mouth ity of 15:35: at [place] 30 bedtime. Medical Branch venlafaxine 2020-0 Yes 150mg Take 150 U nivers XR 150 mg 6-29 mg by ity of 24 hr 15:35: mouth [place] capsule 30 daily with Medica l breakfast. Branch pantoprazol 2020-0 Yes 40mg Take 40 mg [facility] e 40 mg EC 6-29 by mouth ity o f tablet 15:35: daily. [place] 30 Medical Branch amitriptyli 2020-0 Yes 100mg [...] 6-29 by mouth ity of 15:35: at [place] 30 bedtime. Medical Branch venlafaxine 2020-0 Yes 150mg Take 150 U nivers XR 150 mg 6-29 mg by ity of 24 hr 15:35: mouth [place] capsule 30 daily with Medica l breakfast. Branch pantoprazol 2020-0 Yes 40mg Take 40 mg [facility] e 40 mg EC 6-29 by mouth ity o f tablet 15:35: daily. [place] 30 Medical Branch amitriptyli 2020-0 Yes 100mg Take 100 U nivers ne 75 mg 6-29 mg by ity of tablet 15:35: mouth at [place] 30 bedtime. Medical Branch verapamil 2020-0 Yes 120mg Take 120 Uni vers (VERELAN 6-29 mg by ity of PM) 120 mg 15:35: mouth at [place] 24 hr 30 bedtime. Medical capsule Branch metFORMIN 2020-0 Yes 500mg Take 500 Uni vers 500 mg 6-29 mg by ity of tablet 15:35: mouth 2 [place] 30 (two) Medical times Branch daily with meals. rOPINIRole 2020-0 Yes 2mg Take 2 mg [facility] [place] 2 mg tablet 6-29 by mouth ity of 15:35: at [place] 30 bedtime. Medical Branch venlafaxine 2020-0 Yes 150mg Take 150 U nivers XR 150 mg 6-29 mg by ity of 24 hr 15:35: mouth [place] capsule 30 daily with Medica l breakfast. Branch pantoprazol 2020-0 Yes 40mg Take 40 mg Univers e 40 mg EC 6-29 by mouth ity o f tablet 15:35: daily. [place] 30 Medical Branch amitriptyli 2020-0 Yes 100mg Take 100 U nivers ne 75 mg 6-29 mg by ity of tablet 15:35: mouth at [place] 30 bedtime. Medical Branch DICLOFENAC 2020-0 Yes [id number] APPLY TO Univers SODIUM 1 % 5-26 05 AFFECTED ity o f gel 00:00: AREA TWICE [place] 00 A DAY Medical NEEDED FOR Branch PAIN APPLY 2 GRAMS DO NOT EXCEED 4 GRAMS IN A DAY DICLOFENAC 2020-0 Yes [id number] APPLY TO Univers SODIUM 1 % 5-26 05 AFFECTED ity o f gel 00:00: AREA TWICE [place] 00 A DAY Medical NEEDED FOR Branch PAIN APPLY 2 GRAMS DO NOT EXCEED 4 GRAMS IN A DAY DICLOFENAC 2020-0 Yes [id number] APPLY TO [facility] SODIUM 1 % 5-26 05 AFFECTED ity o f gel 00:00: AREA TWICE [place] 00 A DAY Medical NEEDED FOR Branch PAIN APPLY 2 GRAMS DO NOT EXCEED 4 GRAMS IN A DAY DICLOFENAC 2020-0 Yes [id number] APPLY TO [facility] SODIUM 1 % 5-26 05 AFFECTED ity o f gel 00:00: AREA TWICE [place] 00 A DAY Medical NEEDED FOR Branch PAIN APPLY 2 GRAMS DO NOT EXCEED 4 GRAMS IN A DAY DICLOFENAC 2020-0 Yes [id number] APPLY TO [facility] SODIUM 1 % 5-26 05 AFFECTED ity o f gel 00:00: AREA TWICE [place] 00 A DAY Medical NEEDED FOR Branch PAIN APPLY 2 GRAMS DO NOT EXCEED 4 GRAMS IN A DAY DICLOFENAC 2020-0 Yes [id number] APPLY TO [facility] SODIUM 1 % 5-26 05 AFFECTED ity o f gel 00:00: AREA TWICE [place] 00 A DAY Medical NEEDED FOR Branch PAIN APPLY 2 GRAMS DO NOT EXCEED 4 GRAMS IN A DAY DICLOFENAC 2020-0 Yes [id number] APPLY TO [facility] SODIUM 1 % 5-26 05 AFFECTED ity o f gel 00:00: AREA TWICE [place] 00 A DAY Medical NEEDED FOR Branch PAIN APPLY 2 GRAMS DO NOT EXCEED 4 GRAMS IN A DAY DICLOFENAC 2020-0 Yes [id number] APPLY TO Univers SODIUM 1 % 5-26 05 AFFECTED ity o f gel 00:00: AREA TWICE [place] 00 A DAY Medical NEEDED FOR Branch PAIN APPLY 2 GRAMS DO NOT EXCEED 4 GRAMS IN A DAY DICLOFENAC 2020-0 Yes [id number] APPLY TO [facility] SODIUM 1 % 5-26 05 AFFECTED ity o f gel 00:00: AREA TWICE [place] 00 A DAY Medical NEEDED FOR Branch PAIN APPLY 2 GRAMS DO NOT EXCEED 4 GRAMS IN A DAY DICLOFENAC 2020-0 Yes [id number] APPLY TO [facility] SODIUM 1 % 5-26 05 AFFECTED ity o f gel 00:00: AREA TWICE [place] 00 A DAY Medical NEEDED FOR Branch PAIN APPLY 2 GRAMS DO NOT EXCEED 4 GRAMS IN A DAY DICLOFENAC 2020-0 Yes [id number] APPLY TO [facility] SODIUM 1 % 5-26 05 AFFECTED ity o f gel 00:00: AREA TWICE [place] 00 A DAY Medical NEEDED FOR Branch PAIN APPLY 2 GRAMS DO NOT EXCEED 4 GRAMS IN A DAY DICLOFENAC 2020-0 Yes [id number] APPLY TO [facility] SODIUM 1 % 5-26 05 AFFECTED ity o f gel 00:00: AREA TWICE [place] 00 A DAY Medical NEEDED FOR Branch PAIN APPLY 2 GRAMS DO NOT EXCEED 4 GRAMS IN A DAY DICLOFENAC 2020-0 Yes [id number] APPLY TO [facility] SODIUM 1 % 5-26 05 AFFECTED ity o f gel 00:00: AREA TWICE [place] 00 A DAY Medical NEEDED FOR Branch PAIN APPLY 2 GRAMS DO NOT EXCEED 4 GRAMS IN A DAY DICLOFENAC 2020-0 Yes [id number] APPLY TO [facility] SODIUM 1 % 5-26 05 AFFECTED ity o f gel 00:00: AREA TWICE [place] 00 A DAY Medical NEEDED FOR Branch PAIN APPLY 2 GRAMS DO NOT EXCEED 4 GRAMS IN A DAY DICLOFENAC 2020-0 Yes [id number] APPLY TO [facility] SODIUM 1 % 5-26 05 AFFECTED ity o f gel 00:00: AREA TWICE [place] 00 A DAY Medical NEEDED FOR Branch PAIN APPLY 2 GRAMS DO NOT EXCEED 4 GRAMS IN A DAY DICLOFENAC 2020-0 Yes [id number] APPLY TO [facility] SODIUM 1 % 5-26 05 AFFECTED ity o f gel 00:00: AREA TWICE [place] 00 A DAY Medical NEEDED FOR Branch PAIN APPLY 2 GRAMS DO NOT EXCEED 4 GRAMS IN A DAY DICLOFENAC 2020-0 Yes [id number] APPLY TO [facility] SODIUM 1 % 5-26 05 AFFECTED ity o f gel 00:00: AREA TWICE [place] 00 A DAY Medical NEEDED FOR Branch PAIN APPLY 2 GRAMS DO NOT EXCEED 4 GRAMS IN A DAY DICLOFENAC 2020-0 Yes [id number] APPLY TO [facility] SODIUM 1 % 5-26 05 AFFECTED ity o f gel 00:00: AREA TWICE [place] 00 A DAY Medical NEEDED FOR Branch PAIN APPLY 2 GRAMS DO NOT EXCEED 4 GRAMS IN A DAY DICLOFENAC 2020-0 Yes [id number] APPLY TO [facility] SODIUM 1 % 5-26 05 AFFECTED ity o f gel 00:00: AREA TWICE [place] 00 A DAY Medical NEEDED FOR Branch PAIN APPLY 2 GRAMS DO NOT EXCEED 4 GRAMS IN A DAY DICLOFENAC 2020-0 Yes [id number] APPLY TO [facility] SODIUM 1 % 5-26 05 AFFECTED ity o f gel 00:00: AREA TWICE [place] 00 A DAY Medical NEEDED FOR Branch PAIN APPLY 2 GRAMS DO NOT EXCEED 4 GRAMS IN A DAY DICLOFENAC 2020-0 Yes [id number] APPLY TO [facility] SODIUM 1 % 5-26 05 AFFECTED ity o f gel 00:00: AREA TWICE [place] 00 A DAY Medical NEEDED FOR Branch PAIN APPLY 2 GRAMS DO NOT EXCEED 4 GRAMS IN A DAY DICLOFENAC 2020-0 Yes [id number] APPLY TO [facility] SODIUM 1 % - 05 AFFECTED ity o f gel 00:00: AREA TWICE [place] 00 A DAY Medical NEEDED FOR Branch PAIN APPLY 2 GRAMS DO NOT EXCEED 4 GRAMS IN A DAY DICLOFENAC 2020-0 2020- No [id number] APPLY TO [facility] SODIUM 1 % 5-26 11-30 05 AFFECTED ity of gel 00:00: 00:00 [...] HOURS Branch solution NEEDED DICLOFENAC 2020-0 Yes [id number] APPLY TO [facility] SODIUM 1 % 4-28 05 AFFECTED ity o f gel 00:00: AREA TWICE [place] 00 A DAY Medical NEEDED FOR Branch PAIN APPLY 2 GRAMS DO NOT EXCEED 4 GRAMS IN A DAY DICLOFENAC 2020-0 Yes [id number] APPLY TO [facility] SODIUM 1 % 4-28 05 AFFECTED ity o f gel 00:00: AREA TWICE [place] 00 A DAY Medical NEEDED FOR Branch PAIN APPLY 2 GRAMS DO NOT EXCEED 4 GRAMS IN A DAY DICLOFENAC 2020-0 Yes [id number] APPLY TO [facility] SODIUM 1 % 4-28 05 AFFECTED ity o f gel 00:00: AREA TWICE [place] 00 A DAY Medical NEEDED FOR Branch PAIN APPLY 2 GRAMS DO NOT EXCEED 4 GRAMS IN A DAY DICLOFENAC 2020-0 2020- No [id number] APPLY TO [facility] SODIUM 1 % 4-28 05-26 05 AFFECTED ity of gel 00:00: 00:00 AREA TWICE [place] 00 :00 A DAY Medical NEEDED FOR Branch PAIN APPLY 2 GRAMS DO NOT EXCEED 4 GRAMS IN A DAY DICLOFENAC 2020-0 Yes [id number] APPLY TO [facility] SODIUM 1 % 4-03 05 AFFECTED ity o f gel 00:00: AREA TWICE [place] 00 A DAY Medical NEEDED FOR Branch PAIN APPLY 2 GRAMS DO NOT EXCEED 4 GRAMS IN A DAY DICLOFENAC 2020- No [id number] APPLY TO [facility] SODIUM 1 % 4-03 04-28 05 AFFECTED ity of gel 00:00: 00:00 AREA TWICE [place] 00 :00 A DAY Medical NEEDED FOR Branch PAIN APPLY 2 GRAMS DO NOT EXCEED 4 GRAMS IN A DAY Diclofenac 0 Yes [id number] Apply to [facility] Sodium 1 % 3-11 05 area(s) 2 ity of gel 00:00: (two) [place] 00 times Medical daily as Branch needed for Pain (scale 4-6) (Apply 2 g do not exceed 4 g in a day). Diclofenac 0 Yes [id number] Apply to [facility] Sodium 1 % 3-11 05 area(s) 2 ity of gel 00:00: (two) [place] 00 times Medical daily as Branch needed for Pain (scale 4-6) (Apply 2 g do not exceed 4 g in a day). Diclofenac 0 Yes [id number] Apply to [facility] Sodium 1 % 3-11 05 area(s) 2 ity of gel 00:00: (two) [place] 00 times Medical daily as Branch needed for Pain (scale 4-6) (Apply 2 g do not exceed 4 g in a day). Diclofenac 0 Yes [id number] Apply to [facility] Sodium 1 % 3-11 05 area(s) 2 ity of gel 00:00: (two) [place] 00 times Medical daily as Branch needed for Pain (scale 4-6) (Apply 2 g do not exceed 4 g in a day). Diclofenac 0 Yes [id number] Apply to [facility] Sodium 1 % 3-11 05 area(s) 2 ity of gel 00:00: (two) [place] 00 times Medical daily as Branch needed for Pain (scale 4-6) (Apply 2 g do not exceed 4 g in a day). Diclofenac 0 Yes [id number] Apply to [facility] Sodium 1 % 3-11 05 area(s) 2 ity of gel 00:00: (two) [place] 00 times Medical daily as Branch needed for Pain (scale 4-6) (Apply 2 g do not exceed 4 g in a day). Diclofenac 2020-0 Yes [id number] Apply to [facility] Sodium 1 % 3-11 05 area(s) 2 ity of gel 00:00: (two) [place] 00 times Medical daily as Branch needed for Pain (scale 4-6) (Apply 2 g do not exceed 4 g in a day). Diclofenac 2020-0 Yes [id number] Apply to [facility] Sodium 1 % 3-11 05 area(s) 2 ity of gel 00:00: (two) [place] 00 times Medical daily as Branch needed for Pain (scale 4-6) (Apply 2 g do not exceed 4 g in a day). Diclofenac 2020-0 2020- No [id number] Apply to [facility] Sodium 1 % 3-11 04-03 05 area(s) 2 ity of gel 00:00: 00:00 (two) [place] 00 :00 times Medical daily as Branch [...] by ity of tablet 19:22: mouth 2 [place] [address] (two) Medical times Branch daily with meals. rOPINIRole 2020-0 Yes 2mg Take 2 mg [place] 2 mg tablet 2-20 by mouth ity of 19:22: at [place] [address] bedtime. Medical Branch venlafaxine 2020-0 Yes 150mg Take 150 U nivers XR 150 mg 2-20 mg by ity of 24 hr 19:22: mouth [place] capsule daily with Medica l breakfast. Branch clonazePAM 2020-0 Yes .5mg Take 0.5 Uni vers 0.5 mg 2-20 mg by ity of tablet 19:22: mouth at [place] [address] bedtime. Medical Branch pantoprazol 2020-0 Yes 40mg Take 40 mg [facility] e 40 mg EC 2-20 by mouth ity o f tablet 19:22: daily. [place] [address] Medical Branch amitriptyli 2020-0 Yes 75mg Take 75 mg [facility] ne 75 mg 2-20 by mouth ity of tablet 19:22: at [place] [address] bedtime. Medical Branch verapamil 2020-0 Yes 120mg Take 120 Uni vers (VERELAN 2-20 mg by ity of PM) 120 mg 19:22: mouth at [place] 24 hr 26 bedtime. Medical capsule Branch metFORMIN 2020-0 Yes 500mg Take 500 Uni vers 500 mg 2-20 mg by ity of tablet 19:22: mouth 2 [place] [address] (two) Medical times Branch daily with meals. rOPINIRole 2020-0 Yes 2mg Take 2 mg [place] 2 mg tablet 2-20 by mouth ity of 19:22: at [place] [address] bedtime. Medical Branch venlafaxine 2020-0 Yes 150mg Take 150 U nivers XR 150 mg 2-20 mg by ity of 24 hr 19:22: mouth [place] capsule daily with Medica l breakfast. Branch clonazePAM 2020-0 Yes .5mg Take 0.5 Uni vers 0.5 mg 2-20 mg by ity of tablet 19:22: mouth at [place] [address] bedtime. Medical Branch pantoprazol 2020-0 Yes 40mg Take 40 mg [facility] e 40 mg EC 2-20 by mouth ity o f tablet 19:22: daily. [place] [address] Medical Branch amitriptyli 2020-0 Yes 75mg Take 75 mg [facility] ne 75 mg 2-20 by mouth ity of tablet 19:22: at [place] [address] bedtime. Medical Branch verapamil 2020-0 Yes 120mg Take 120 Uni vers (VERELAN 2-20 mg by ity of PM) 120 mg 19:22: mouth at [place] 24 hr 26 bedtime. Medical capsule Branch metFORMIN 2020-0 Yes 500mg Take 500 Uni vers 500 mg 2-20 mg by ity of tablet 19:22: mouth 2 [place] [address] (two) Medical times Branch daily with meals. rOPINIRole 2020-0 Yes 2mg Take 2 mg [place] 2 mg tablet 2-20 by mouth ity of 19:22: at [place] [address] bedtime. Medical Branch venlafaxine 2020-0 Yes 150mg Take 150 U nivers XR 150 mg 2-20 mg by ity of 24 hr 19:22: mouth [place] capsule daily with Medica l breakfast. Branch clonazePAM 2020-0 Yes .5mg Take 0.5 Uni vers 0.5 mg 2-20 mg by ity of tablet 19:22: mouth at [place] [address] bedtime. Medical Branch pantoprazol 2020-0 Yes 40mg Take 40 mg [facility] e 40 mg EC 2-20 by mouth ity o f tablet 19:22: daily. [place] [address] Medical Branch amitriptyli 2020-0 Yes 75mg Take 75 mg [facility] ne 75 mg 2-20 by mouth ity of tablet 19:22: at [place] [address] bedtime. Medical Branch verapamil 2020-0 Yes 120mg Take 120 Uni vers (VERELAN 2-20 mg by ity of PM) 120 mg 19:22: mouth at [place] 24 hr 26 bedtime. Medical capsule Branch metFORMIN 2020-0 Yes 500mg Take 500 Uni vers 500 mg 2-20 mg by ity of tablet 19:22: mouth 2 [place] [address] (two) Medical times Branch daily with meals. rOPINIRole 2020-0 Yes 2mg Take 2 mg [place] 2 mg tablet 2-20 by mouth ity of 19:22: at [place] [address] bedtime. Medical Branch venlafaxine 2020-0 Yes 150mg Take 150 U nivers XR 150 mg 2-20 mg by ity of 24 hr 19:22: mouth [place] [address] daily with Medica l breakfast. Branch clonazePAM 2020-0 Yes .5mg Take 0.5 Uni vers 0.5 mg 2-20 mg by ity of tablet 19:22: mouth at [place] [address] bedtime. Medical Branch pantoprazol 2020-0 Yes 40mg Take 40 mg [facility] e 40 mg EC 2-20 by mouth ity o f tablet 19:22: daily. [place] [address] Medical Branch amitriptyli 2020-0 Yes 75mg Take 75 mg [facility] ne 75 mg 2-20 by mouth ity of tablet 19:22: at [place] [address] bedtime. Medical Branch verapamil 2020-0 Yes 120mg Take 120 Uni vers (VERELAN 2-20 mg by ity of PM) 120 mg 19:22: mouth at [place] 24 hr 26 bedtime. Medical capsule Branch metFORMIN 2020-0 Yes 500mg Take 500 Uni vers 500 mg 2-20 mg by ity of tablet 19:22: mouth 2 [place] [address] (two) Medical times Branch daily with meals. rOPINIRole 2020-0 Yes 2mg Take 2 mg [place] 2 mg tablet 2-20 by mouth ity of 19:22: at [place] [address] bedtime. Medical Branch venlafaxine 2020-0 Yes 150mg Take 150 U nivers XR 150 mg 2-20 mg by ity of 24 hr 19:22: mouth [place] [address] daily with Medica l breakfast. Branch clonazePAM 2020-0 Yes .5mg Take 0.5 Uni vers 0.5 mg 2-20 mg by ity of tablet 19:22: mouth at [place] [address] bedtime. Medical Branch pantoprazol 2020-0 Yes 40mg Take 40 mg [facility] e 40 mg EC 2-20 by mouth ity o f tablet 19:22: daily. [place] [address] Medical Branch amitriptyli 2020-0 Yes 75mg Take 75 mg [facility] ne 75 mg 2-20 by mouth ity of tablet 19:22: at [place] [address] bedtime. Medical Branch verapamil 2020-0 Yes 120mg Take 120 Uni vers (VERELAN 2-20 mg by ity of PM) 120 mg 19:22: mouth at [place] 24 hr 26 bedtime. Medical capsule Branch metFORMIN 2020-0 Yes 500mg Take 500 Uni vers 500 mg 2-20 mg by ity of tablet 19:22: mouth 2 [place] [address] (two) Medical times Branch daily with meals. rOPINIRole 2020-0 Yes 2mg Take 2 mg [place] 2 mg tablet 2-20 by mouth ity of 19:22: at [place] [address] bedtime. Medical Branch venlafaxine 2020-0 Yes 150mg Take 150 U nivers XR 150 mg 2-20 mg by ity of 24 hr 19:22: mouth [place] capsule daily with Medica l breakfast. Branch clonazePAM 2020-0 Yes .5mg Take 0.5 Uni vers 0.5 mg 2-20 mg by ity of tablet 19:22: mouth at [place] [address] bedtime. Medical Branch pantoprazol 2020-0 Yes 40mg Take 40 mg [facility] e 40 mg EC 2-20 by mouth ity o f tablet 19:22: daily. [place] [address] Medical Branch amitriptyli 2020-0 Yes 75mg Take 75 mg [facility] ne 75 mg 2-20 by mouth ity of tablet 19:22: at [place] [address] bedtime. Medical Branch verapamil 2020-0 Yes 120mg Take 120 Uni vers (VERELAN 2-20 mg by ity of PM) 120 mg 19:22: mouth at [place] 24 hr 26 bedtime. Medical capsule Branch metFORMIN 2020-0 Yes 500mg Take 500 Uni vers 500 mg 2-20 mg by ity of tablet 19:22: mouth 2 [place] [address] (two) Medical times Branch daily with meals. rOPINIRole 2020-0 Yes 2mg Take 2 mg [place] 2 mg tablet 2-20 by mouth ity of 19:22: at [place] [address] bedtime. Medical Branch venlafaxine 2020-0 Yes 150mg Take 150 U nivers XR 150 mg 2-20 mg by ity of 24 hr 19:22: mouth [place] capsule 26 daily with Medica l breakfast. Branch clonazePAM 2020-0 Yes .5mg Take 0.5 Uni vers 0.5 mg 2-20 mg by ity of tablet 19:22: mouth at [place] [address] bedtime. Medical Branch pantoprazol 2020-0 Yes 40mg Take 40 mg [facility] e 40 mg EC 2-20 by mouth ity o f tablet 19:22: daily. [place] [address] Medical Branch amitriptyli 2020-0 Yes 75mg Take 75 mg [facility] ne 75 mg 2-20 by mouth ity of tablet 19:22: at [place] [address] bedtime. Medical Branch verapamil 2020-0 Yes 120mg Take 120 Uni vers (VERELAN 2-20 mg by ity of PM) 120 mg 19:22: mouth at [facility] as 24 hr bedtime. Medical capsule Branch metFORMIN 2020-0 Yes 500mg Take 500 Uni vers 500 mg 2-20 mg by ity of tablet 19:22: mouth 2 [place] [address] (two) Medical times Branch daily with meals. rOPINIRole 2020-0 Yes 2mg Take 2 mg [place] 2 mg tablet 2-20 by mouth ity of 19:22: at [place] [address] bedtime. Medical Branch venlafaxine 2020-0 Yes 150mg Take 150 U nivers XR 150 mg 2-20 mg by ity of 24 hr 19:22: mouth [place] [address] daily with Medica l breakfast. Branch clonazePAM 2020-0 Yes .5mg Take 0.5 Uni vers 0.5 mg 2-20 mg by ity of tablet 19:22: mouth at [place] [address] bedtime. Medical Branch pantoprazol 2020-0 Yes 40mg Take 40 mg [facility] e 40 mg EC 2-20 by mouth ity o f tablet 19:22: daily. [place] [address] Medical Branch amitriptyli 2020-0 Yes 75mg Take 75 mg [facility] ne 75 mg 2-20 by mouth ity of tablet 19:22: at [place] [address] bedtime. Medical Branch verapamil 2020-0 Yes 120mg Take 120 Uni vers (VERELAN 2-20 mg by ity of PM) 120 mg 19:22: mouth at [place] 24 hr 26 bedtime. Medical capsule Branch metFORMIN 2020-0 Yes 500mg Take 500 Uni vers 500 mg 2-20 mg by ity of tablet 19:22: mouth 2 [place] [address] (two) Medical times Branch daily with meals. rOPINIRole 2020-0 Yes 2mg Take 2 mg [facility] [place] 2 mg tablet 2-20 by mouth ity of 19:22: at [place] [address] bedtime. Medical Branch venlafaxine 2020-0 Yes 150mg Take 150 U nivers XR 150 mg 2-20 mg by ity of 24 hr 19:22: mouth [place] capsule daily with Medica l breakfast. Branch clonazePAM 2020-0 Yes .5mg Take 0.5 Uni vers 0.5 mg 2-20 mg by ity of tablet 19:22: mouth at [place] [address] bedtime. Medical Branch pantoprazol 2020-0 Yes 40mg Take 40 mg [facility] e 40 mg EC 2-20 by mouth ity o f tablet 19:22: daily. [place] [address] Medical Branch amitriptyli 2020-0 Yes 75mg Take 75 mg [facility] ne 75 mg 2-20 by mouth ity of tablet 19:22: at [place] [address] bedtime. Medical Branch clonazePAM 2020-0 Yes .5mg Take 0.5 Uni vers 0.5 mg 2-20 mg by ity of tablet 19:22: mouth at [place] [address] bedtime. Medical Branch clonazePAM 2020-0 Yes .5mg Take 0.5 Uni vers 0.5 mg 2-20 mg by ity of tablet 19:22: mouth at [place] [address] bedtime. Medical Branch clonazePAM 2020-0 Yes .5mg Take 0.5 Uni vers 0.5 mg 2-20 mg by ity of tablet 19:22: mouth at [place] [address] bedtime. Medical Branch clonazePAM 2020-0 Yes .5mg Take 0.5 Uni vers 0.5 mg 2-20 mg by ity of tablet 19:22: mouth at [place] [address] bedtime. Medical Branch clonazePAM 2020-0 Yes .5mg Take 0.5 Uni vers 0.5 mg 2-20 mg by ity of tablet 19:22: mouth at [place] [address] bedtime. Medical Branch clonazePAM 2020-0 Yes .5mg Take 0.5 Uni vers 0.5 mg 2-20 mg by ity of tablet 19:22: mouth at [place] [address] bedtime. Medical Branch clonazePAM 2020-0 Yes .5mg Take 0.5 Uni vers 0.5 mg 2-20 mg by ity of tablet 19:22: mouth at [place] [address] bedtime. Medical Branch clonazePAM 2020-0 Yes .5mg Take 0.5 Uni vers 0.5 mg 2-20 mg by ity of tablet 19:22: mouth at [place] [address] bedtime. Medical Branch clonazePAM 2020-0 Yes .5mg Take 0.5 Uni vers 0.5 mg 2-20 mg by ity of tablet 19:22: mouth at [place] [address] bedtime. Medical Branch clonazePAM 2020-0 Yes .5mg Take 0.5 Uni vers 0.5 mg 2-20 mg by ity of tablet 19:22: mouth at [place] [address] bedtime. Medical Branch clonazePAM 2020-0 Yes .5mg Take 0.5 Uni vers 0.5 mg 2-20 mg by ity of tablet 19:22: mouth at [place] [address] bedtime. Medical Branch clonazePAM 2020-0 Yes .5mg Take 0.5 Uni vers 0.5 mg 2-20 mg by ity of tablet 19:22: mouth at [place] [address] bedtime. Medical Branch clonazePAM 2020-0 Yes .5mg Take 0.5 Uni vers 0.5 mg 2-20 mg by ity of tablet 19:22: mouth at [place] [address] bedtime. Medical Branch clonazePAM 2020-0 Yes .5mg Take 0.5 Uni vers 0.5 mg 2-20 mg by ity of tablet 19:22: mouth at [place] [address] bedtime. Medical Branch clonazePAM 2020-0 Yes .5mg Take 0.5 Uni vers 0.5 mg 2-20 mg by ity of tablet 19:22: mouth at [place] [address] bedtime. Medical Branch clonazePAM 2020-0 Yes .5mg Take 0.5 Uni vers 0.5 mg 2-20 mg by ity of tablet 19:22: mouth at [place] [address] bedtime. Medical Branch clonazePAM 2020-0 Yes .5mg Take 0.5 Uni vers 0.5 mg 2-20 mg by ity of tablet 19:22: mouth at [place] [address] bedtime. Medical Branch clonazePAM 2020-0 Yes .5mg Take 0.5 Uni vers 0.5 mg 2-20 mg by ity of tablet 19:22: mouth at [place] [address] bedtime. Medical Branch clonazePAM 2020-0 Yes .5mg Take 0.5 Uni vers 0.5 mg 2-20 mg by ity of tablet 19:22: mouth at [place] [address] bedtime. Medical Branch clonazePAM 2020-0 Yes .5mg Take 0.5 Uni vers 0.5 mg 2-20 mg by ity of tablet 19:22: mouth at [place] [address] bedtime. Medical Branch clonazePAM 2020-0 Yes .5mg Take 0.5 Uni vers 0.5 mg 2-20 mg by ity of tablet 19:22: mouth at [place] [address] bedtime. Medical Branch clonazePAM 2020-0 Yes .5mg Take 0.5 Uni vers 0.5 mg 2-20 mg by ity of tablet 19:22: mouth at [place] [address] bedtime. Medical Branch clonazePAM 2020-0 Yes .5mg Take 0.5 Uni vers 0.5 mg 2-20 mg by ity of tablet 19:22: mouth at [place] [address] bedtime. Medical Branch verapamil 2020-0 Yes 120mg Take 120 Uni vers (VERELAN 2-20 mg by ity of PM) 120 mg 19:22: mouth at [facility] as 24 hr 26 bedtime. Medical capsule Branch metFORMIN 2020-0 Yes 500mg Take 500 Uni vers 500 mg 2-20 mg by ity of tablet 19:22: mouth 2 [place] [address] (two) Medical times Branch daily with meals. rOPINIRole 2020-0 Yes 2mg Take 2 mg [place] 2 mg tablet 2-20 by mouth ity of 19:22: at [place] [address] bedtime. Medical Branch venlafaxine 2020-0 Yes 150mg Take 150 U nivers XR 150 mg 2-20 mg by ity of 24 hr 19:22: mouth [place] [address] daily with Medica l breakfast. Branch clonazePAM 2020-0 Yes .5mg Take 0.5 Uni vers 0.5 mg 2-20 mg by ity of tablet 19:22: mouth at [place] [address] bedtime. Medical Branch pantoprazol 2020-0 Yes 40mg Take 40 mg Univers e 40 mg EC 2-20 by mouth ity o f tablet 19:22: daily. [place] [address] Medical Branch amitriptyli 2020-0 Yes 75mg Take 75 mg [facility] ne 75 mg 2-20 by mouth ity of tablet 19:22: at [place] [address] bedtime. Medical Branch verapamil 2020-0 Yes 120mg Take 120 Uni vers (VERELAN 2-20 mg by ity of PM) 120 mg 19:22: mouth at [place] as 24 hr 26 bedtime. Medical capsule Branch metFORMIN 2020-0 Yes 500mg Take 500 Uni vers 500 mg 2-20 mg by ity of tablet 19:22: mouth 2 [place] [address] (two) Medical times Branch daily with meals. rOPINIRole 2020-0 Yes 2mg Take 2 mg [place] 2 mg tablet 2-20 by mouth ity of 19:22: at [place] [address] bedtime. Medical Branch venlafaxine 2020-0 Yes 150mg Take 150 U nivers XR 150 mg 2-20 mg by ity of 24 hr 19:22: mouth [place] capsule daily with Medica l breakfast. Branch clonazePAM 2020-0 Yes .5mg Take 0.5 Uni vers 0.5 mg 2-20 mg by ity of tablet 19:22: mouth at [place] [address] bedtime. Medical Branch pantoprazol 2020-0 Yes 40mg Take 40 mg Univers e 40 mg EC 2-20 by mouth ity o f tablet 19:22: daily. [place] [address] Medical Branch amitriptyli 2020-0 Yes 75mg Take 75 mg [facility] ne 75 mg 2-20 by mouth ity of tablet 19:22: at [place] [address] bedtime. Medical Branch verapamil 2020-0 Yes 120mg Take 120 Uni vers (VERELAN 2-20 mg by ity of PM) 120 mg 19:22: mouth at [place] as 24 hr 26 bedtime. Medical capsule Branch metFORMIN 2020-0 Yes 500mg Take 500 Uni vers 500 mg 2-20 mg by ity of tablet 19:22: mouth 2 [place] [address] (two) Medical times Branch daily with meals. rOPINIRole 2020-0 Yes 2mg Take 2 mg [place] 2 mg tablet 2-20 by mouth ity of 19:22: at [place] [address] bedtime. Medical Branch venlafaxine 2020-0 Yes 150mg Take 150 U nivers XR 150 mg 2-20 mg by ity of 24 hr 19:22: mouth [place] capsule daily with Medica l breakfast. Branch clonazePAM 2020-0 Yes .5mg Take 0.5 Uni vers 0.5 mg 2-20 mg by ity of tablet 19:22: mouth at [place] [address] bedtime. Medical Branch pantoprazol 2020-0 Yes 40mg Take 40 mg Univers e 40 mg EC 2-20 by mouth ity o f tablet 19:22: daily. [place] [address] Medical Branch amitriptyli 2020-0 Yes 75mg Take 75 mg Univers ne 75 mg 2-20 by mouth ity of tablet 19:22: at [place] [address] bedtime. Medical Branch verapamil 2020-0 Yes 120mg Take 120 Uni vers (VERELAN 2-20 mg by ity of PM) 120 mg 19:22: mouth at [place] as 24 hr 26 bedtime. Medical capsule Branch metFORMIN 2020-0 Yes 500mg Take 500 Uni vers 500 mg 2-20 mg by ity of tablet 19:22: mouth 2 [place] [address] (two) Medical times Branch daily with meals. rOPINIRole 2020-0 Yes 2mg Take 2 mg [place] 2 mg tablet 2-20 by mouth ity of 19:22: at [place] [address] bedtime. Medical Branch venlafaxine 2020-0 Yes 150mg Take 150 U nivers XR 150 mg 2-20 mg by ity of 24 hr 19:22: mouth [place] [address] daily with Medica l breakfast. Branch clonazePAM 2020-0 Yes .5mg Take 0.5 Uni vers 0.5 mg 2-20 mg by ity of tablet 19:22: mouth at [place] [address] bedtime. Medical Branch pantoprazol 2020-0 Yes 40mg Take 40 mg Univers e 40 mg EC 2-20 by mouth ity o f tablet 19:22: daily. [place] [address] Medical Branch amitriptyli 2020-0 Yes 75mg Take 75 mg Univers ne 75 mg 2-20 by mouth ity of tablet 19:22: at [place] [address] bedtime. Medical Branch verapamil 2020-0 Yes 120mg Take 120 Uni vers (VERELAN 2-20 mg by ity of PM) 120 mg 19:22: mouth at [place] as 24 hr 26 bedtime. Medical capsule Branch metFORMIN 2020-0 Yes 500mg Take 500 Uni vers 500 mg 2-20 mg by ity of tablet 19:22: mouth 2 [place] [address] (two) Medical times [place] daily with meals. rOPINIRole 2020-0 Yes 2mg Take 2 mg [place] 2 mg tablet 2-20 by mouth ity of 19:22: at [place] [address] bedtime. Medical Branch venlafaxine 2020-0 Yes 150mg Take 150 U nivers XR 150 mg 2-20 mg by ity of 24 hr 19:22: mouth [place] [address] daily with Medica l breakfast. Branch clonazePAM 2020-0 Yes .5mg Take 0.5 Uni vers 0.5 mg 2-20 mg by ity of tablet 19:22: mouth at [place] [address] bedtime. Medical Branch pantoprazol 2020-0 Yes 40mg Take 40 mg Univers e 40 mg EC 2-20 by mouth ity o f tablet 19:22: daily. [place] [address] Medical Branch amitriptyli 2020-0 Yes 75mg Take 75 mg Univers ne 75 mg 2-20 by mouth ity of tablet 19:22: at [place] [address] bedtime. Medical Branch verapamil 2020-0 Yes 120mg Take 120 Uni vers (VERELAN 2-20 mg by ity of PM) 120 mg 19:22: mouth at [place] as 24 hr 26 bedtime. Medical capsule Branch metFORMIN 2020-0 Yes 500mg Take 500 Uni vers 500 mg 2-20 mg by ity of tablet 19:22: mouth 2 [place] [address] (two) Medical times Branch daily with meals. rOPINIRole 2020-0 Yes 2mg Take 2 mg [place] 2 mg tablet 2-20 by mouth ity of 19:22: at [place] [address] bedtime. Medical Branch venlafaxine 2020-0 Yes 150mg Take 150 U nivers XR 150 mg 2-20 mg by ity of 24 hr 19:22: mouth [place] [address] daily with Medica l breakfast. Branch clonazePAM 2020-0 Yes .5mg Take 0.5 Uni vers 0.5 mg 2-20 mg by ity of tablet 19:22: mouth at [place] [address] bedtime. Medical Branch pantoprazol 2020-0 Yes 40mg Take 40 mg Univers e 40 mg EC 2-20 by mouth ity o f tablet 19:22: daily. [place] [address] Medical Branch amitriptyli 2020-0 Yes 75mg Take 75 mg Univers ne 75 mg 2-20 by mouth ity of tablet 19:22: at [place] [address] bedtime. Medical Branch verapamil 2020-0 Yes 120mg Take 120 Uni vers (VERELAN 2-20 mg by ity of PM) 120 mg 19:22: mouth at [place] as 24 hr bedtime. Medical capsule Branch metFORMIN 2020-0 Yes 500mg Take 500 Uni vers 500 mg 2-20 mg by ity of tablet 19:22: mouth 2 [place] [address] (two) Medical times Branch daily with meals. rOPINIRole 2020-0 Yes 2mg Take 2 mg [place] 2 mg tablet 2-20 by mouth ity of 19:22: at [place] [address] bedtime. Medical Branch venlafaxine 2020-0 Yes 150mg Take 150 U nivers XR 150 mg 2-20 mg by ity of 24 hr 19:22: mouth [place] [address] daily with Medica l breakfast. Branch clonazePAM 2020-0 Yes .5mg Take 0.5 Uni vers 0.5 mg 2-20 mg by ity of tablet 19:22: mouth at [place] [address] bedtime. Medical Branch pantoprazol 2020-0 Yes 40mg Take 40 mg Univers e 40 mg EC 2-20 by mouth ity o f tablet 19:22: daily. [place] [address] Medical Branch amitriptyli 2020-0 Yes 75mg Take 75 mg Univers ne 75 mg 2-20 by mouth ity of tablet 19:22: at [place] [address] bedtime. Medical Branch verapamil 2020-0 Yes 120mg Take 120 Uni vers (VERELAN 2-20 mg by ity of PM) 120 mg 19:22: mouth at [facility] as 24 hr 26 bedtime. Medical capsule Branch metFORMIN 2020-0 Yes 500mg Take 500 Uni vers 500 mg 2-20 mg by ity of tablet 19:22: mouth 2 [place] [address] (two) Medical times Branch daily with meals. rOPINIRole 2020-0 Yes 2mg Take 2 mg [place] 2 mg tablet 2-20 by mouth ity of 19:22: at [place] [address] bedtime. Medical Branch venlafaxine 2020-0 Yes 150mg Take 150 U nivers XR 150 mg 2-20 mg by ity of 24 hr 19:22: mouth [place] [address] daily with Medica l breakfast. Branch clonazePAM 2020-0 Yes .5mg Take 0.5 Uni vers 0.5 mg 2-20 mg by ity of tablet 19:22: mouth at [place] [address] bedtime. Medical Branch pantoprazol 2020-0 Yes 40mg Take 40 mg Univers e 40 mg EC 2-20 by mouth ity o f tablet 19:22: daily. [place] [address] Medical Branch amitriptyli 2020-0 Yes 75mg Take 75 mg Univers ne 75 mg 2-20 by mouth ity of tablet 19:22: at [place] [address] bedtime. Medical Branch verapamil 2020-0 Yes 120mg Take 120 Uni vers (VERELAN 2-20 mg by ity of PM) 120 mg 19:22: mouth at [facility] as 24 hr 26 bedtime. Medical capsule Branch metFORMIN 2020-0 Yes 500mg Take 500 Uni vers 500 mg 2-20 mg by ity of tablet 19:22: mouth 2 [place] [address] (two) Medical times Branch daily with meals. rOPINIRole 2020-0 Yes 2mg Take 2 mg [place] 2 mg tablet 2-20 by mouth ity of 19:22: at [place] [address] bedtime. Medical Branch venlafaxine 2020-0 Yes 150mg Take 150 U nivers XR 150 mg 2-20 mg by ity of 24 hr 19:22: mouth [place] capsule daily with Medica l breakfast. Branch clonazePAM 2020-0 Yes .5mg Take 0.5 Uni vers 0.5 mg 2-20 mg by ity of tablet 19:22: mouth at [place] [address] bedtime. Medical Branch pantoprazol 2020-0 Yes 40mg Take 40 mg Univers e 40 mg EC 2-20 by mouth ity o f tablet 19:22: daily. [place] [address] Medical Branch amitriptyli 2020-0 Yes 75mg Take 75 mg Univers ne 75 mg 2-20 by mouth ity of tablet 19:22: at [place] [address] bedtime. Medical Branch verapamil 2020-0 Yes 120mg Take 120 Uni vers (VERELAN 2-20 mg by ity of PM) 120 mg 19:22: mouth at [facility] as 24 hr bedtime. Medical capsule Branch metFORMIN 2020-0 Yes 500mg Take 500 Uni vers 500 mg 2-20 mg by ity of tablet 19:22: mouth 2 [place] [address] (two) Medical times Branch daily with meals. rOPINIRole 2020-0 Yes 2mg Take 2 mg [place] 2 mg tablet 2-20 by mouth ity of 19:22: at [place] [address] bedtime. Medical Branch venlafaxine 2020-0 Yes 150mg Take 150 U nivers XR 150 mg 2-20 mg by ity of 24 hr 19:22: mouth [place] capsule daily with Medica l breakfast. Branch clonazePAM 2020-0 Yes .5mg Take 0.5 Uni vers 0.5 mg 2-20 mg by ity of tablet 19:22: mouth at [place] [address] bedtime. Medical Branch pantoprazol 2020-0 Yes 40mg Take 40 mg Univers e 40 mg EC 2-20 by mouth ity o f tablet 19:22: daily. [place] [address] Medical Branch amitriptyli 2020-0 Yes 75mg Take 75 mg Univers ne 75 mg 2-20 by mouth ity of tablet 19:22: at [place] [address] bedtime. Medical Branch verapamil 2020-0 Yes 120mg Take 120 Uni vers (VERELAN 2-20 mg by ity of PM) 120 mg 19:22: mouth at [place] as 24 hr 26 bedtime. Medical capsule Branch metFORMIN 2020-0 Yes 500mg Take 500 Uni vers 500 mg 2-20 mg by ity of tablet 19:22: mouth 2 [place] [address] (two) Medical times Branch daily with meals. rOPINIRole 2020-0 Yes 2mg Take 2 mg [place] 2 mg tablet 2-20 by mouth ity of 19:22: at [place] [address] bedtime. Medical Branch venlafaxine 2020-0 Yes 150mg Take 150 U nivers XR 150 mg 2-20 mg by ity of 24 hr 19:22: mouth [place] [address] daily with Medica l breakfast. Branch clonazePAM 2020-0 Yes .5mg Take 0.5 Uni vers 0.5 mg 2-20 mg by ity of tablet 19:22: mouth at [place] [address] bedtime. Medical Branch pantoprazol 2020-0 Yes 40mg Take 40 mg Univers e 40 mg EC 2-20 by mouth ity o f tablet 19:22: daily. [place] [address] Medical Branch amitriptyli 2020-0 Yes 75mg Take 75 mg Univers ne 75 mg 2-20 by mouth ity of tablet 19:22: at [place] [address] bedtime. Medical Branch verapamil 2020-0 Yes 120mg Take 120 Uni vers (VERELAN 2-20 mg by ity of PM) 120 mg 19:22: mouth at [place] as 24 hr bedtime. Medical capsule Branch metFORMIN 2020-0 Yes 500mg Take 500 Uni vers 500 mg 2-20 mg by ity of tablet 19:22: mouth 2 [place] [address] (two) Medical times Branch daily with meals. rOPINIRole 2020-0 Yes 2mg Take 2 mg [place] 2 mg tablet 2-20 by mouth ity of 19:22: at [place] [address] bedtime. Medical Branch venlafaxine 2020-0 Yes 150mg Take 150 U nivers XR 150 mg 2-20 mg by ity of 24 hr 19:22: mouth [place] [address] daily with Medica l breakfast. Branch clonazePAM 2020-0 Yes .5mg Take 0.5 Uni vers 0.5 mg 2-20 mg by ity of tablet 19:22: mouth at [place] [address] bedtime. Medical Branch pantoprazol 2020-0 Yes 40mg Take 40 mg Univers e 40 mg EC 2-20 by mouth ity o f tablet 19:22: daily. [place] [address] Medical Branch amitriptyli 2020-0 Yes 75mg Take 75 mg Univers ne 75 mg 2-20 by mouth ity of tablet 19:22: at [place] [address] bedtime. Medical Branch verapamil 2020-0 Yes 120mg Take 120 Uni vers (VERELAN 2-20 mg by ity of PM) 120 mg 19:22: mouth at [place] as 24 hr 26 bedtime. Medical capsule Branch metFORMIN 2020-0 Yes 500mg Take 500 Uni vers 500 mg 2-20 mg by ity of tablet 19:22: mouth 2 [place] [address] (two) Medical times Branch daily with meals. rOPINIRole 2020-0 Yes 2mg Take 2 mg [place] 2 mg tablet 2-20 by mouth ity of 19:22: at [place] [address] bedtime. Medical Branch venlafaxine 2020-0 Yes 150mg Take 150 U nivers XR 150 mg 2-20 mg by ity of 24 hr 19:22: mouth [place] [address] daily with Medica l breakfast. Branch clonazePAM 2020-0 Yes .5mg Take 0.5 Uni vers 0.5 mg 2-20 mg by ity of tablet 19:22: mouth at [place] [address] bedtime. Medical Branch pantoprazol 2020-0 Yes 40mg Take 40 mg Univers e 40 mg EC 2-20 by mouth ity o f tablet 19:22: daily. [place] [address] Medical Branch amitriptyli 2020-0 Yes 75mg Take 75 mg Univers ne 75 mg 2-20 by mouth ity of tablet 19:22: at [place] [address] bedtime. Medical Branch verapamil 2020-0 Yes 120mg Take 120 Uni vers (VERELAN 2-20 mg by ity of PM) 120 mg 19:22: mouth at [place] as 24 hr bedtime. Medical capsule Branch metFORMIN 2020-0 Yes 500mg Take 500 Uni vers 500 mg 2-20 mg by ity of tablet 19:22: mouth 2 [place] [address] (two) Medical times Branch daily with meals. rOPINIRole 2020-0 Yes 2mg Take 2 mg [place] 2 mg tablet 2-20 by mouth ity of 19:22: at [place] [address] bedtime. Medical Branch venlafaxine 2020-0 Yes 150mg Take 150 U nivers XR 150 mg 2-20 mg by ity of 24 hr 19:22: mouth [place] capsule daily with Medica l breakfast. Branch clonazePAM 2020-0 Yes .5mg Take 0.5 Uni vers 0.5 mg 2-20 mg by ity of tablet 19:22: mouth at [place] [address] bedtime. Medical Branch pantoprazol 2020-0 Yes 40mg Take 40 mg Univers e 40 mg EC 2-20 by mouth ity o f tablet 19:22: daily. [place] [address] Medical Branch amitriptyli 2020-0 Yes 75mg Take 75 mg Univers ne 75 mg 2-20 by mouth ity of tablet 19:22: at [place] [address] bedtime. Medical Branch verapamil 2020-0 Yes 120mg Take 120 Uni vers (VERELAN 2-20 mg by ity of PM) 120 mg 19:22: mouth at [place] as 24 hr bedtime. Medical capsule Branch metFORMIN 2020-0 Yes 500mg Take 500 Uni vers 500 mg 2-20 mg by ity of tablet 19:22: mouth 2 [place] [address] (two) Medical times Branch daily with meals. rOPINIRole 2020-0 Yes 2mg Take 2 mg [place] 2 mg tablet 2-20 by mouth ity of 19:22: at [place] [address] bedtime. Medical Branch venlafaxine 2020-0 Yes 150mg Take 150 U nivers XR 150 mg 2-20 mg by ity of 24 hr 19:22: mouth [place] [address] daily with Medica l breakfast. Branch clonazePAM 2020-0 Yes .5mg Take 0.5 Uni vers 0.5 mg 2-20 mg by ity of tablet 19:22: mouth at [place] [address] bedtime. Medical Branch pantoprazol 2020-0 Yes 40mg Take 40 mg Univers e 40 mg EC 2-20 by mouth ity o f tablet 19:22: daily. [place] [address] Medical Branch amitriptyli 2020-0 Yes 75mg Take 75 mg Univers ne 75 mg 2-20 by mouth ity of tablet 19:22: at [place] [address] bedtime. Medical Branch verapamil 2020-0 Yes 120mg Take 120 Uni vers (VERELAN 2-20 mg by ity of PM) 120 mg 19:22: mouth at [place] as 24 hr 26 bedtime. Medical capsule Branch metFORMIN 2020-0 Yes 500mg Take 500 Uni vers 500 mg 2-20 mg by ity of tablet 19:22: mouth 2 [place] [address] (two) Medical times Branch daily with meals. rOPINIRole 2020-0 Yes 2mg Take 2 mg [place] 2 mg tablet 2-20 by mouth ity of 19:22: at [place] [address] bedtime. Medical Branch venlafaxine 2020-0 Yes 150mg Take 150 U nivers XR 150 mg 2-20 mg by ity of 24 hr 19:22: mouth [place] [address] daily with Medica l breakfast. Branch clonazePAM 2020-0 Yes .5mg Take 0.5 Uni vers 0.5 mg 2-20 mg by ity of tablet 19:22: mouth at [place] [address] bedtime. Medical Branch pantoprazol 2020-0 Yes 40mg Take 40 mg Univers e 40 mg EC 2-20 by mouth ity o f tablet 19:22: daily. [place] [address] Medical Branch amitriptyli 2020-0 Yes 75mg Take 75 mg Univers ne 75 mg 2-20 by mouth ity of tablet 19:22: at [place] [address] bedtime. Medical Branch verapamil 2020-0 Yes 120mg Take 120 Uni vers (VERELAN 2-20 mg by ity of PM) 120 mg 19:22: mouth at [facility] as 24 hr 26 bedtime. Medical capsule Branch metFORMIN 2020-0 Yes 500mg Take 500 Uni vers 500 mg 2-20 mg by ity of tablet 19:22: mouth 2 [place] [address] (two) Medical times Branch daily with meals. rOPINIRole 2020-0 Yes 2mg Take 2 mg [place] 2 mg tablet 2-20 by mouth ity of 19:22: at [place] [address] bedtime. Medical Branch venlafaxine 2020-0 Yes 150mg Take 150 U nivers XR 150 mg 2-20 mg by ity of 24 hr 19:22: mouth [place] [address] daily with Medica l breakfast. Branch clonazePAM 2020-0 Yes .5mg Take 0.5 Uni vers 0.5 mg 2-20 mg by ity of tablet 19:22: mouth at [place] [address] bedtime. Medical Branch pantoprazol 2020-0 Yes 40mg Take 40 mg Univers e 40 mg EC 2-20 by mouth ity o f tablet 19:22: daily. [place] [address] Medical Branch amitriptyli 2020-0 Yes 75mg Take 75 mg Univers ne 75 mg 2-20 by mouth ity of tablet 19:22: at [place] [address] bedtime. Medical Branch verapamil 2020-0 Yes 120mg Take 120 Uni vers (VERELAN 2-20 mg by ity of PM) 120 mg 19:22: mouth at [place] as 24 hr 26 bedtime. Medical capsule Branch metFORMIN 2020-0 Yes 500mg Take 500 Uni vers 500 mg 2-20 mg by ity of tablet 19:22: mouth 2 [place] [address] (two) Medical times Branch daily with meals. rOPINIRole 2020-0 Yes 2mg Take 2 mg [place] 2 mg tablet 2-20 by mouth ity of 19:22: at [place] [address] bedtime. Medical Branch venlafaxine 2020-0 Yes 150mg Take 150 U nivers XR 150 mg 2-20 mg by ity of 24 hr 19:22: mouth [place] capsule daily with Medica l breakfast. Branch clonazePAM 2020-0 Yes .5mg Take 0.5 Uni vers 0.5 mg 2-20 mg by ity of tablet 19:22: mouth at [place] [address] bedtime. Medical Branch pantoprazol 2020-0 Yes 40mg Take 40 mg [facility] e 40 mg EC 2-20 by mouth ity o f tablet 19:22: daily. [place] [address] Medical Branch amitriptyli 2020-0 Yes 75mg Take 75 mg [facility] ne 75 mg 2-20 by mouth ity of tablet 19:22: at [place] [address] bedtime. Medical Branch verapamil 2020-0 Yes 120mg Take 120 Uni vers (VERELAN 2-20 mg by ity of PM) 120 mg 19:22: mouth at [facility] as 24 hr 26 bedtime. Medical capsule Branch metFORMIN 2020-0 Yes 500mg Take 500 Uni vers 500 mg 2-20 mg by ity of tablet 19:22: mouth 2 [place] [address] (two) Medical times Branch daily with meals. rOPINIRole 2020-0 Yes 2mg Take 2 mg [place] 2 mg tablet 2-20 by mouth ity of 19:22: at [place] [address] bedtime. Medical Branch venlafaxine 2020-0 Yes 150mg Take 150 U nivers XR 150 mg 2-20 mg by ity of 24 hr 19:22: mouth [place] capsule daily with Medica l breakfast. Branch clonazePAM 2020-0 Yes .5mg Take 0.5 Uni vers 0.5 mg 2-20 mg by ity of tablet 19:22: mouth at [place] [address] bedtime. Medical Branch pantoprazol 2020-0 Yes 40mg Take 40 mg [facility] e 40 mg EC 2-20 by mouth ity o f tablet 19:22: daily. [place] [address] Medical Branch amitriptyli 2020-0 Yes 75mg Take 75 mg [facility] ne 75 mg 2-20 by mouth ity of tablet 19:22: at [place] [address] bedtime. Medical Branch clonazePAM 2020-0 Yes .5mg Take 0.5 Uni vers 0.5 mg 2-20 mg by ity of tablet 13:22: mouth at [place] [address] bedtime. Medical Branch clonazePAM 2020-0 Yes .5mg Take 0.5 Uni vers 0.5 mg 2-20 mg by ity of tablet 13:22: mouth at [place] [address] bedtime. Medical Branch clonazePAM 2020-0 Yes .5mg Take 0.5 Uni vers 0.5 mg 2-20 mg by ity of tablet 13:22: mouth at [place] [address] bedtime. Medical Branch clonazePAM 2020-0 Yes .5mg Take 0.5 Uni vers 0.5 mg 2-20 mg by ity of tablet 13:22: mouth at [place] [address] bedtime. Medical Branch clonazePAM 2020-0 Yes .5mg Take 0.5 Uni vers 0.5 mg 2-20 mg by ity of tablet 13:22: mouth at [place] [address] bedtime. Medical Branch clonazePAM 2020-0 Yes .5mg Take 0.5 Uni vers 0.5 mg 2-20 mg by ity of tablet 13:22: mouth at [place] [address] bedtime. Medical Branch clonazePAM 2020-0 Yes .5mg Take 0.5 Uni vers 0.5 mg 2-20 mg by ity of tablet 13:22: mouth at [place] [address] bedtime. Medical Branch clonazePAM 2020-0 Yes .5mg Take 0.5 Uni vers 0.5 mg 2-20 mg by ity of tablet 13:22: mouth at [place] [address] bedtime. Medical Branch clonazePAM 2020-0 Yes .5mg Take 0.5 Uni vers 0.5 mg 2-20 mg by ity of tablet 13:22: mouth at [place] [address] bedtime. Medical Branch verapamil 2020-0 Yes 120mg Take 120 Uni vers (VERELAN 2-19 mg by ity of PM) 120 mg 23:24: mouth at [place] as 24 hr 51 bedtime. Medical capsule Branch metFORMIN 2020-0 Yes 500mg Take 500 Uni vers 500 mg 2-19 mg by ity of tablet 23:24: mouth 2 [place] [address] (two) Medical times Branch daily with meals. rOPINIRole 2020-0 Yes 2mg Take 2 mg [place] 2 mg tablet 2-19 by mouth ity of 23:24: at [place] [address] bedtime. Medical Branch venlafaxine 2019-0 Yes 150mg Take 150 U nivers XR 150 mg 2-19 mg by ity of 24 hr 23:24: mouth [place] [address] daily with Medica l breakfast. Branch clonazePAM 2019-0 Yes .5mg Take 0.5 Uni vers 0.5 mg 2-19 mg by ity of tablet 23:24: mouth at [place] [address] bedtime. Medical Branch pantoprazol 2019-0 Yes 40mg Take 40 mg Univers e 40 mg EC 2-19 by mouth ity o f tablet 23:24: daily. [place] [address] Medical Branch amitriptyli 2019-0 Yes 75mg Take 75 mg Univers ne 75 mg 2-19 by mouth ity of tablet 23:24: at [place] [address] bedtime. Medical Branch acetaminoph 2019-0 Yes [id number] 2{tbl} Take 2 Univers en-codeine 2-19 05 tablets by ity of (TYLENOL-CO 00:00: mouth [place] DEINE #3) 00 every 4 Medical 300-30 mg (four) Branch tablet hours as needed for Pain (scale 4-6) or Pain (scale 7-10) (Maximum 10 tablets a day). acetaminoph 2019-0 Yes [id number] 2{tbl} Take 2 Univers en-codeine 2-19 05 tablets by ity of (TYLENOL-CO 00:00: mouth [place] DEINE #3) 00 every 4 Medical 300-30 mg (four) Branch tablet hours as needed for Pain (scale 4-6) or Pain (scale 7-10) (Maximum 10 tablets a day). acetaminoph 2019-0 Yes [id number] 2{tbl} Take 2 Univers en-codeine 2-19 05 tablets by ity of (TYLENOL-CO 00:00: mouth [place] DEINE #3) 00 every 4 Medical 300-30 mg (four) Branch tablet hours as needed for Pain (scale 4-6) or Pain (scale 7-10) (Maximum 10 tablets a day). acetaminoph 2019-0 Yes [id number] 2{tbl} Take 2 [facility] en-codeine 2-19 05 tablets by ity of (TYLENOL-CO 00:00: mouth [place] DEINE #3) 00 every 4 Medical 300-30 mg (four) Branch tablet hours as needed for Pain (scale 4-6) or Pain (scale 7-10) (Maximum 10 tablets a day). acetaminoph 2020-0 Yes [id number] 2{tbl} Take 2 [facility] en-codeine 2-19 05 tablets by ity of (TYLENOL-CO 00:00: mouth [place] DEINE #3) 00 every 4 Medical 300-30 mg (four) Branch tablet hours as needed for Pain (scale 4-6) or Pain (scale 7-10) (Maximum 10 tablets a day). acetaminoph 2020-0 Yes [id number] 2{tbl} Take 2 [facility] en-codeine 2-19 05 tablets by ity of (TYLENOL-CO 00:00: mouth [place] DEINE #3) 00 every 4 Medical 300-30 mg (four) Branch tablet hours as needed for Pain (scale 4-6) or Pain (scale 7-10) (Maximum 10 tablets a day). acetaminoph 2020-0 Yes [id number] 2{tbl} Take 2 [facility] en-codeine 2-19 05 tablets by ity of (TYLENOL-CO 00:00: mouth [place] DEINE #3) 00 every 4 Medical 300-30 mg (four) Branch tablet hours as needed for Pain (scale 4-6) or Pain (scale 7-10) (Maximum 10 tablets a day). acetaminoph 2020-0 Yes [id number] 2{tbl} Take 2 [facility] en-codeine 2-19 05 tablets by ity of (TYLENOL-CO 00:00: mouth [place] DEINE #3) 00 every 4 Medical 300-30 mg (four) Branch tablet hours as needed for Pain (scale 4-6) or Pain (scale 7-10) (Maximum 10 tablets a day). acetaminoph 2020-0 Yes [id number] 2{tbl} Take 2 [facility] en-codeine 2-19 05 tablets by ity of (TYLENOL-CO 00:00: mouth [place] DEINE #3) 00 every 4 Medical 300-30 mg (four) Branch tablet hours as needed for Pain (scale 4-6) or Pain (scale 7-10) (Maximum 10 tablets a day). acetaminoph 2020-0 Yes [id number] 2{tbl} Take 2 [facility] en-codeine 2-19 05 tablets by ity of (TYLENOL-CO 00:00: mouth [place] DEINE #3) 00 every 4 Medical 300-30 mg (four) Branch tablet hours as needed for Pain (scale 4-6) or Pain (scale 7-10) (Maximum 10 tablets a day). acetaminoph 2020-0 Yes [id number] 2{tbl} Take 2 [facility] en-codeine 2-19 05 tablets by ity of (TYLENOL-CO 00:00: mouth [place] DEINE #3) 00 every 4 Medical 300-30 mg (four) Branch tablet hours as needed for Pain (scale 4-6) or Pain (scale 7-10) (Maximum 10 tablets a day). acetaminoph 2020-0 Yes [id number] 2{tbl} Take 2 [facility] en-codeine 2-19 05 tablets by ity of (TYLENOL-CO 00:00: mouth [place] DEINE #3) 00 every 4 Medical 300-30 mg (four) Branch tablet hours as needed for Pain (scale 4-6) or Pain (scale 7-10) (Maximum 10 tablets a day). acetaminoph 2020-0 Yes [id number] 2{tbl} Take 2 [facility] en-codeine 2-19 05 tablets by ity of (TYLENOL-CO 00:00: mouth [place] DEINE #3) 00 every 4 Medical 300-30 mg (four) Branch tablet hours as needed for Pain (scale 4-6) or Pain (scale 7-10) (Maximum 10 tablets a day). acetaminoph 2020-0 Yes [id number] 2{tbl} Take 2 [facility] en-codeine 2-19 05 tablets by ity of (TYLENOL-CO 00:00: mouth [place] DEINE #3) 00 every 4 Medical 300-30 mg (four) Branch tablet hours as needed for Pain (scale 4-6) or Pain (scale 7-10) (Maximum 10 tablets a day). acetaminoph 2020-0 Yes [id number] 2{tbl} Take 2 [facility] en-codeine 2-19 05 tablets by ity of (TYLENOL-CO 00:00: mouth [place] DEINE #3) 00 every 4 Medical 300-30 mg (four) Branch tablet hours as needed for Pain (scale 4-6) or Pain (scale 7-10) (Maximum 10 tablets a day). acetaminoph 2020-0 Yes [id number] 2{tbl} Take 2 [facility] en-codeine 2-19 05 tablets by ity of (TYLENOL-CO 00:00: mouth [place] DEINE #3) 00 every 4 Medical 300-30 mg (four) Branch tablet hours as needed for Pain (scale 4-6) or Pain (scale 7-10) (Maximum 10 tablets a day). acetaminoph 2020-0 Yes [id number] 2{tbl} Take 2 [facility] en-codeine 2-19 05 tablets by ity of (TYLENOL-CO 00:00: mouth [place] DEINE #3) 00 every 4 Medical 300-30 mg (four) Branch tablet hours as needed for Pain (scale 4-6) or Pain (scale 7-10) (Maximum 10 tablets a day). acetaminoph 2020-0 Yes [id number] 2{tbl} Take 2 [facility] en-codeine 2-19 05 tablets by ity of (TYLENOL-CO 00:00: mouth [place] DEINE #3) 00 every 4 Medical 300-30 mg (four) Branch tablet hours as needed for Pain (scale 4-6) or Pain (scale 7-10) (Maximum 10 tablets a day). acetaminoph 2020-0 Yes [id number] 2{tbl} Take 2 [facility] en-codeine 2-19 05 tablets by ity of (TYLENOL-CO 00:00: mouth [place] DEINE #3) 00 every 4 Medical 300-30 mg (four) Branch tablet hours as needed for Pain (scale 4-6) or Pain (scale 7-10) (Maximum 10 tablets a day). acetaminoph 2020-0 Yes [id number] 2{tbl} Take 2 [facility] en-codeine 2-19 05 tablets by ity of (TYLENOL-CO 00:00: mouth [place] DEINE #3) 00 every 4 Medical 300-30 mg (four) Branch tablet hours as needed for Pain (scale 4-6) or Pain (scale 7-10) (Maximum 10 tablets a day). acetaminoph 2020-0 Yes [id number] 2{tbl} Take 2 [facility] en-codeine 2-19 05 tablets by ity of (TYLENOL-CO 00:00: mouth [place] DEINE #3) 00 every 4 Medical 300-30 mg (four) Branch tablet hours as needed for Pain (scale 4-6) or Pain (scale 7-10) (Maximum 10 tablets a day). acetaminoph 2020-0 Yes [id number] 2{tbl} Take 2 [facility] en-codeine 2-19 05 tablets by ity of (TYLENOL-CO 00:00: mouth [place] DEINE #3) 00 every 4 Medical 300-30 mg (four) Branch tablet hours as needed for Pain (scale 4-6) or Pain (scale 7-10) (Maximum 10 tablets a day). acetaminoph 2020-0 Yes [id number] 2{tbl} Take 2 [facility] en-codeine 2-19 05 tablets by ity of (TYLENOL-CO 00:00: mouth [place] DEINE #3) 00 every 4 Medical 300-30 mg (four) Branch tablet hours as needed for Pain (scale 4-6) or Pain (scale 7-10) (Maximum 10 tablets a day). acetaminoph 2020-0 Yes [id number] 2{tbl} Take 2 [facility] en-codeine 2-19 05 tablets by ity of (TYLENOL-CO 00:00: mouth [place] DEINE #3) 00 every 4 Medical 300-30 mg (four) Branch tablet hours as needed for Pain (scale 4-6) or Pain (scale 7-10) (Maximum 10 tablets a day). acetaminoph 2020-0 Yes [id number] 2{tbl} Take 2 [facility] en-codeine 2-19 05 tablets by ity of (TYLENOL-CO 00:00: mouth [place] DEINE #3) 00 every 4 Medical 300-30 mg (four) Branch tablet hours as needed for Pain (scale 4-6) or Pain (scale 7-10) (Maximum 10 tablets a day). acetaminoph 2020-0 Yes [id number] 2{tbl} Take 2 [facility] en-codeine 2-19 05 tablets by ity of (TYLENOL-CO 00:00: mouth [place] DEINE #3) 00 every 4 Medical 300-30 mg (four) Branch tablet hours as needed for Pain (scale 4-6) or Pain (scale 7-10) (Maximum 10 tablets a day). acetaminoph 2020-0 Yes [id number] 2{tbl} Take 2 [facility] en-codeine 2-19 05 tablets by ity of (TYLENOL-CO 00:00: mouth [place] DEINE #3) 00 every 4 Medical 300-30 mg (four) Branch tablet hours as needed for Pain (scale 4-6) or Pain (scale 7-10) (Maximum 10 tablets a day). acetaminoph 2020-0 Yes [id number] 2{tbl} Take 2 [facility] en-codeine 2-19 05 tablets by ity of (TYLENOL-CO 00:00: mouth [place] DEINE #3) 00 every 4 Medical 300-30 mg (four) Branch tablet hours as needed for Pain (scale 4-6) or Pain (scale 7-10) (Maximum 10 tablets a day). acetaminoph 2020-0 Yes [id number] 2{tbl} Take 2 [facility] en-codeine 2-19 05 tablets by ity of (TYLENOL-CO 00:00: mouth [place] DEINE #3) 00 every 4 Medical 300-30 mg (four) Branch tablet hours as needed for Pain (scale 4-6) or Pain (scale 7-10) (Maximum 10 tablets a day). acetaminoph 2020-0 Yes [id number] 2{tbl} Take 2 [facility] en-codeine 2-19 05 tablets by ity of (TYLENOL-CO 00:00: mouth [place] DEINE #3) 00 every 4 Medical 300-30 mg (four) Branch tablet hours as needed for Pain (scale 4-6) or Pain (scale 7-10) (Maximum 10 tablets a day). acetaminoph 2020-0 Yes [id number] 2{tbl} Take 2 [facility] en-codeine 2-19 05 tablets by ity of (TYLENOL-CO 00:00: mouth [place] DEINE #3) 00 every 4 Medical 300-30 mg (four) Branch tablet hours as needed for Pain (scale 4-6) or Pain (scale 7-10) (Maximum 10 tablets a day). acetaminoph 2020-0 Yes [id number] 2{tbl} Take 2 [facility] en-codeine 2-19 05 tablets by ity of (TYLENOL-CO 00:00: mouth [place] DEINE #3) 00 every 4 Medical 300-30 mg (four) Branch tablet hours as needed for Pain (scale 4-6) or Pain (scale 7-10) (Maximum 10 tablets a day). acetaminoph 2020-0 Yes [id number] 2{tbl} Take 2 [facility] en-codeine 2-19 05 tablets by ity of (TYLENOL-CO 00:00: mouth [place] DEINE #3) 00 every 4 Medical 300-30 mg (four) Branch tablet hours as needed for Pain (scale 4-6) or Pain (scale 7-10) (Maximum 10 tablets a day). acetaminoph 2020-0 Yes [id number] 2{tbl} Take 2 [facility] en-codeine 2-19 05 tablets by ity of (TYLENOL-CO 00:00: mouth [place] DEINE #3) 00 every 4 Medical 300-30 mg (four) Branch tablet hours as needed for Pain (scale 4-6) or Pain (scale 7-10) (Maximum 10 tablets a day). acetaminoph 2020-0 Yes [id number] 2{tbl} Take 2 [facility] en-codeine 2-19 05 tablets by ity of (TYLENOL-CO 00:00: mouth [place] DEINE #3) 00 every 4 Medical 300-30 mg (four) Branch tablet hours as needed for Pain (scale 4-6) or Pain (scale 7-10) (Maximum 10 tablets a day). acetaminoph 2020-0 Yes [id number] 2{tbl} Take 2 [facility] en-codeine 2-19 05 tablets by ity of (TYLENOL-CO 00:00: mouth [place] DEINE #3) 00 every 4 Medical 300-30 mg (four) Branch tablet hours as needed for Pain (scale 4-6) or Pain (scale 7-10) (Maximum 10 tablets a day). acetaminoph 2020-0 Yes [id number] 2{tbl} Take 2 [facility] en-codeine 2-19 05 tablets by ity of (TYLENOL-CO 00:00: mouth [place] DEINE #3) 00 every 4 Medical 300-30 mg (four) Branch tablet hours as needed for Pain (scale 4-6) or Pain (scale 7-10) (Maximum 10 tablets a day). acetaminoph 2020-0 Yes [id number] 2{tbl} Take 2 [facility] en-codeine 2-19 05 tablets by ity of (TYLENOL-CO 00:00: mouth [place] DEINE #3) 00 every 4 Medical 300-30 mg (four) Branch tablet hours as needed for Pain (scale 4-6) or Pain (scale 7-10) (Maximum 10 tablets a day). acetaminoph 2020-0 Yes [id number] 2{tbl} Take 2 [facility] en-codeine 2-19 05 tablets by ity of (TYLENOL-CO 00:00: mouth [place] DEINE #3) 00 every 4 Medical 300-30 mg (four) Branch tablet hours as needed for Pain (scale 4-6) or Pain (scale 7-10) (Maximum 10 tablets a day). acetaminoph 2020-0 Yes [id number] 2{tbl} Take 2 [facility] en-codeine 2-19 05 tablets by ity of (TYLENOL-CO 00:00: mouth [place] DEINE #3) 00 every 4 Medical 300-30 mg (four) Branch tablet hours as needed for Pain (scale 4-6) or Pain (scale 7-10) (Maximum 10 tablets a day). acetaminoph 2020-0 Yes [id number] 2{tbl} Take 2 [facility] en-codeine 2-19 05 tablets by ity of (TYLENOL-CO 00:00: mouth [place] DEINE #3) 00 every 4 Medical 300-30 mg (four) Branch tablet hours as needed for Pain (scale 4-6) or Pain (scale 7-10) (Maximum 10 tablets a day). acetaminoph 2020-0 Yes [id number] 2{tbl} Take 2 [facility] en-codeine 2-19 05 tablets by ity of (TYLENOL-CO 00:00: mouth [place] DEINE #3) 00 every 4 Medical 300-30 mg (four) Branch tablet hours as needed for Pain (scale 4-6) or Pain (scale 7-10) (Maximum 10 tablets a day). acetaminoph 2020-0 Yes [id number] 2{tbl} Take 2 [facility] en-codeine 2-19 05 tablets by ity of (TYLENOL-CO 00:00: mouth [place] DEINE #3) 00 every 4 Medical 300-30 mg (four) Branch tablet hours as needed for Pain (scale 4-6) or Pain (scale 7-10) (Maximum 10 tablets a day). acetaminoph 2020-0 Yes [id number] 2{tbl} Take 2 [facility] en-codeine 2-19 05 tablets by ity of (TYLENOL-CO 00:00: mouth [place] DEINE #3) 00 every 4 Medical 300-30 mg (four) Branch tablet hours as needed for Pain (scale 4-6) or Pain (scale 7-10) (Maximum 10 tablets a day). acetaminoph 2020-0 Yes [id number] 2{tbl} Take 2 [facility] en-codeine 2-19 05 tablets by ity of (TYLENOL-CO 00:00: mouth [place] DEINE #3) 00 every 4 Medical 300-30 mg (four) Branch tablet hours as needed for Pain (scale 4-6) or Pain (scale 7-10) (Maximum 10 tablets a day). acetaminoph 2020-0 Yes [id number] 2{tbl} Take 2 [facility] en-codeine 2-19 05 tablets by ity of (TYLENOL-CO 00:00: mouth [place] DEINE #3) 00 every 4 Medical 300-30 mg (four) Branch tablet hours as needed for Pain (scale 4-6) or Pain (scale 7-10) (Maximum 10 tablets a day). acetaminoph 2020-0 Yes [id number] 2{tbl} Take 2 [facility] en-codeine 2-19 05 tablets by ity of (TYLENOL-CO 00:00: mouth [place] DEINE #3) 00 every 4 Medical 300-30 mg (four) Branch tablet hours as needed for Pain (scale 4-6) or Pain (scale 7-10) (Maximum 10 tablets a day). acetaminoph 2020-0 Yes [id number] 2{tbl} Take 2 [facility] en-codeine 2-19 05 tablets by ity of (TYLENOL-CO 00:00: mouth [place] DEINE #3) 00 every 4 Medical 300-30 mg (four) Branch tablet hours as needed for Pain (scale 4-6) or Pain (scale 7-10) (Maximum 10 tablets a day). acetaminoph 2020-0 Yes [id number] 2{tbl} Take 2 [facility] en-codeine 2-19 05 tablets by ity of (TYLENOL-CO 00:00: mouth [place] DEINE #3) 00 every 4 Medical 300-30 mg (four) Branch tablet hours as needed for Pain (scale 4-6) or Pain (scale 7-10) (Maximum 10 tablets a day). acetaminoph 2020-0 Yes [id number] 2{tbl} Take 2 [facility] en-codeine 2-19 05 tablets by ity of (TYLENOL-CO 00:00: mouth [place] DEINE #3) 00 every 4 Medical 300-30 mg (four) Branch tablet hours as needed for Pain (scale 4-6) or Pain (scale 7-10) (Maximum 10 tablets a day). acetaminoph 2020-0 Yes [id number] 2{tbl} Take 2 [facility] en-codeine 2-19 05 tablets by ity of (TYLENOL-CO 00:00: mouth [place] DEINE #3) 00 every 4 Medical 300-30 mg (four) Branch tablet hours as needed for Pain (scale 4-6) or Pain (scale 7-10) (Maximum 10 tablets a day). acetaminoph 2020-0 Yes [id number] 2{tbl} Take 2 [facility] en-codeine 2-19 05 tablets by ity of (TYLENOL-CO 00:00: mouth [place] DEINE #3) 00 every 4 Medical 300-30 mg (four) Branch tablet hours as needed for Pain (scale 4-6) or Pain (scale 7-10) (Maximum 10 tablets a day). acetaminoph 2020-0 Yes [id number] 2{tbl} Take 2 [facility] en-codeine 2-19 05 tablets by ity of (TYLENOL-CO 00:00: mouth [place] DEINE #3) 00 every 4 Medical 300-30 mg (four) Branch tablet hours as needed for Pain (scale 4-6) or Pain (scale 7-10) (Maximum 10 tablets a day). acetaminoph 2020-0 Yes [id number] 2{tbl} Take 2 Univers en-codeine 2-19 05 tablets by ity of (TYLENOL-CO 00:00: mouth [place] DEINE #3) 00 every 4 Medical 300-30 mg (four) Branch tablet hours as needed for Pain (scale 4-6) or Pain (scale 7-10) (Maximum 10 tablets a day). acetaminoph 2020-0 Yes [id number] 2{tbl} Take 2 Univers en-codeine 2-19 05 tablets by ity of (TYLENOL-CO 00:00: mouth [place] DEINE #3) 00 every 4 Medical 300-30 mg (four) Branch tablet hours as needed for Pain (scale 4-6) or Pain (scale 7-10) (Maximum 10 tablets a day). acetaminoph 2020-0 Yes [id number] 2{tbl} Take 2 Univers en-codeine 2-19 05 tablets by ity of (TYLENOL-CO 00:00: mouth [place] DEINE #3) 00 every 4 Medical 300-30 mg (four) Branch tablet hours as needed for Pain (scale 4-6) or Pain (scale 7-10) (Maximum 10 tablets a day). acetaminoph 2019-0 Yes [id number] 2{tbl} Take 2 Univers en-codeine 2-19 05 tablets by ity of (TYLENOL-CO 00:00: mouth [place] DEINE #3) 00 every 4 Medical 300-30 mg (four) Branch tablet hours as needed for Pain (scale 4-6) or Pain (scale 7-10) (Maximum 10 tablets a day). acetaminoph 2019-0 Yes [id number] 2{tbl} Take 2 Univers en-codeine 2-19 05 tablets by ity of (TYLENOL-CO 00:00: mouth [place] DEINE #3) 00 every 4 Medical 300-30 mg (four) Branch tablet hours as needed for Pain (scale 4-6) or Pain (scale 7-10) (Maximum 10 tablets a day). acetaminoph 2019-0 Yes [id number] 2{tbl} Take 2 Univers en-codeine 2-19 05 tablets by ity of (TYLENOL-CO 00:00: mouth [place] DEINE #3) 00 every 4 Medical 300-30 mg (four) Branch tablet hours as needed for Pain (scale 4-6) or Pain (scale 7-10) (Maximum 10 tablets a day). acetaminoph 2019-0 Yes [id number] 2{tbl} Take 2 Univers en-codeine 2-19 05 tablets by ity of (TYLENOL-CO 00:00: mouth [place] DEINE #3) 00 every 4 Medical 300-30 mg (four) Branch tablet hours as needed for Pain (scale 4-6) or Pain (scale 7-10) (Maximum 10 tablets a day). rivaroxaban 0 2020- No 1481 10mg Take 1 Uni vers (XARELTO) 2-19 03-01 tablet by ity of tablet 00:00: 05:59 mouth [place] 00 :00 daily for Medical 10 days. Branch Indication s: deep vein thrombosis prevention in knee replacemen t rivaroxaban 2019-0 2019- No 1481 10mg Take 1 Uni vers [...] prevention in knee replacemen t rivaroxaban 2019-0 2019- No 1481 10mg Take 1 Uni vers (XARELTO) 12-11 tablet by ity of tablet 00:00: 05:59 mouth [place] 00 :00 daily for Medical 10 days. Branch Indication s: deep vein thrombosis prevention in knee replacemen t rivaroxaban 2019-0 2019- No 1481 10mg Take 1 Uni vers (XARELTO) 12-11 tablet by ity of tablet 00:00: 05:59 mouth [place] 00 :00 daily for Medical 10 days. Branch Indication s: deep vein thrombosis prevention in knee replacemen t rivaroxaban 2019-0 2019- No 1481 10mg Take 1 Uni vers (XARELTO) 12-11 tablet by ity of tablet 00:00: 05:59 mouth [place] 00 :00 daily for Medical 10 days. Branch Indication s: deep vein thrombosis prevention in knee replacemen t verapamil 2019-0 Yes 120mg 120 mg, Univ ers SR (CALAN 2-18 Oral, ity of SR) ER 15:00: DAILY, [place] tablet 120 00 First dose Med ical mg on Mon12/10/19 at 0900, Until Discontinu ed spironolact 2019-0 Yes 25mg 25 mg, Univ ers one 2-18 Oral, ity of (ALDACTONE) 15:00: DAILY, [place] 25 00 First dose Med[place] mg on Mon12/10/19 at 0900, Until Discontinu ed, Routine pantoprazol 2020-0 Yes 40mg 40 mg, Univ ers e 2-18 Oral, ity of (PROTONIX) 15:00: DAILY, [place] EC tablet 00 First dose Medi mac 40 mg on [facility] 12/10/19 at 0900, Until Discontinu ed, Routine methocarbam 2020-0 Yes 750mg 750 mg, Un [place] ol 2-18 Oral, ity of (ROBAXIN) 15:00: DAILY, [place] tablet 750 00 First dose Med ical mg on [facility] 12/10/19 at 0900, Until Discontinu ed, Routine losartan 2020-0 Yes 100mg 100 mg, Unive rs (COZAAR) 2-18 Oral, ity of tablet 100 15:00: DAILY, [place] mg 00 First dose Medical on [facility] 12/10/19 at 0900, Until Discontinu ed, Routine atorvastati 2020-0 Yes 20mg 20 mg, Univ ers n (LIPITOR) 2-18 Oral, ity of tablet 20 15:00: DAILY, [place] mg 00 First dose Medical on [facility] 12/10/19 at 0900, Until Discontinu ed, Routine venlafaxine 2020-0 Yes 150mg 150 mg, Un [place] XR (EFFEXOR 2-18 Oral, QAM ity of XR) 24 hr 14:00: WITH [place] capsule 150 00 BREAKFAST, Me dical mg First dose Branch on [facility] 12/10/19 at 0800, Until Discontinu ed, Routine enoxaparin 2020-0 Yes 30mg 30 mg, Unive rs (LOVENOX) 2-18 Subcutaneo ity of injection 12:00: us, [place] 30 mg 00 Q12HA2, Medical First dose Branch on [facility] 12/10/19 at 0600, Until Discontinu ed, Routine levothyroxi 2020-0 Yes 100ug 100 mcg, U nivers ne 2-18 Oral, ity of (SYNTHROID) 12:00: QAM-0600, [place] tablet 100 00 First dose Med ical mcg on [facility] 12/10/19 at 0600, Until Discontinu ed, Routine SERTraline 2020-0 Yes 50mg 50 mg, Unive rs (ZOLOFT) 2-18 Oral, QHS, ity o f tablet 50 03:00: [place] dose [place] 00 on [facility] 12/09/19 at Branch 2100, Until Discontinu ed, Routine clonazePAM 2020-0 Yes .5mg 0.5 mg, Univ ers (KLONOPIN) 2-18 Oral, QHS, ity of tablet 0.5 03:00: First dose [place] mg 00 on [facility] 12/09/19 at Branch 2100, Until Discontinu ed, Routine amitriptyli 2020-0 Yes 75mg 75 mg, [place] [facility] ers ne (ELAVIL) 2-18 Oral, QHS, it y of tablet 75 03:00: First dose [place] mg 00 on [facility] 12/09/19 at Branch 2100, Until Discontinu ed, Routine docusate 2020-0 Yes 100mg 100 mg, Unive rs (COLACE) 2-18 Oral, ity of capsule 100 02:00: Q12H, [place] mg 00 First dose Medical on [facility] 12/09/19 at 2000, Until Discontinu ed, Routine pramipexole 2020-0 Yes .25mg 0.25 mg, U nivers (MIRAPEX) 2-18 Oral, BID, ity of tablet 0.25 02:00: First dose [place] mg 00 on [facility] 12/09/19 at Branch 2000, Until Discontinu ed
Facu lty member approving Restricted medication : SORADC Sliding 2020-0 Yes Subcutaneo [facility] ers Scale 2-17 us, TID ity of Insulin - 23:00: MEALS+HS, [place] as Aspart 00 First dose Medical (NOVOLOG) + on [facility] 12/09/19 at Testing 1700, Until Discontinu ed, Routine venlafaxine 2020-0 Yes 75mg 75 mg, [place] [facility] ers XR (EFFEXOR 2-17 Oral, QPM, it y of XR) 24 hr 23:00: [place] dose [place] capsule 75 00 on [facility] mg 12/09/19 at Branch 1700, Until Discontinu ed, Routine predniSONE 2020-0 2020- No 40mg 40 mg, [facility] ers (DELTASONE) 12-09 Oral, ONCE i ty of tablet 40 19:15: 18:31 NOW, 1 [place] mg 00 :00 dose, [facility] 12/09/19 at Branch 1315, Routine famotidine 2020-0 2020- No 20mg 20 mg, [facility] ers (PEPCID AC) 12-09 Oral, ONCE i ty of tablet 20 19:15: 18:31 NOW, 1 [place] mg 00 :00 dose, [facility] Medical 12/09/19 at Branch 1315, Routine diphenhydrA 2019- Yes 50mg 50 mg, [place] [facility] ers MINE 12-09 Oral, ity of (BENADRYL) 18:06: Q6HPRN, [place] tablet 50 29 Starting Medica l mg [facility] 12/09/19 at 1206, Until Discontinu ed, Routine, Itching diphenhydrA 2019- 2020- No 25mg 25 mg, [facility] vers MINE 12-09 Slow IV ity of (BENADRYL) 17:30: 17:00 Push, [place] injection 00 :00 ONCE, 1 Medical 25 mg dose, [facility] 12/09/19 at 1130, Routine, PACU morpHINE 30 2019- 2020- No Unive rs mg/30 mL 12-09 ity of (fixed 16:44: 23:15 [place] dose) SQUILGEER 17 :34 Medical injection [place] lactated 2020- No 1000mL at 100 [facility] ers ringers IV 12-09 mL/hr, ity of infusion 16:30: 13:06 1,000 mL, [place] as 1,000 mL 00 :24 IV Medical Infusion, Branch CONTINUOUS , Starting Mon12/09/19 at 1030, Until 12/11/19 at 0706, Routine, PACU dexamethaso 2019-0 2020- No ONCE INTRA Univers ne sod phos 12-09 PROCEDURE, i ty of PF 16:25: 21:32 Starting [place] injection 00 :13 Mon Medical 12/09/19 at Branch 1025, Until Mon12/09/19 at 1532, Routine, Intra-op ropivacaine 2020-0 2020- No ONCE INTRA Univers 0.5 % 12-09 PROCEDURE, ity of (NAROPIN 16:25: 21:31 [place] (PF)) 00 :44 Mon Medical injection 12/09/19 at [facility] 1025, Until Mon12/09/19 at 1531, Routine, Intra-op ropivacaine 2020-0 2020- No ONCE INTRA Univers 0.2 % 12-09 PROCEDURE, ity of (NAROPIN 16:25: 16:27 [place] (PF)) 00 :56 Mon Medical epidural 12/09/19 at [facility] h infusion 1025, Until 12/09/19 at 1027, Routine, Intra-op dexamethaso 2020-0 2020- No ONCE INTRA Univers ne sod phos 12-09 PROCEDURE, i ty of PF 16:25: 21:32 Starting [place] injection 00 :13 Mon Medical 12/09/19 at [place] 1025, Until 12/09/19 at 1532, Routine, Intra-op ropivacaine 2020-0 2020- No ONCE INTRA Univers 0.5 % 12-09 PROCEDURE, ity of (NAROPIN 16:25: 21:31 [place] (PF)) 00 :44 Mon Medical injection 12/09/19 at [facility] 1025, Until 12/09/19 at 1531, Routine, Intra-op ropivacaine 2020-0 2020- No ONCE INTRA Univers 0.2 % 12-09 PROCEDURE, ity of (NAROPIN 16:25: 16:27 [place] (PF)) 00 :56 Mon Medical epidural 12/09/19 at [facility] h infusion 1025, Until 12/09/19 at 1027, Routine, Intra-op verapamil 2020-0 Yes 120mg Take 120 Uni vers (VERELAN 2-17 mg by ity of PM) 120 mg 15:47: mouth at [facility] as 24 hr 19 bedtime. Medical capsule Branch metFORMIN 2020-0 Yes 500mg Take 500 Uni vers 500 mg 2-17 mg by ity of tablet 15:47: mouth 2 [place] 19 (two) Medical times Branch daily with meals. rOPINIRole 2020-0 Yes 2mg Take 2 mg [place] 2 mg tablet 2-17 by mouth ity of 15:47: at [place] [address] bedtime. Medical Branch venlafaxine 2020-0 Yes 150mg Take 150 U nivers XR 150 mg 2-17 mg by ity of 24 hr 15:47: mouth [place] capsule 19 daily with Medica l breakfast. Branch clonazePAM 2020-0 Yes .5mg Take 0.5 Uni vers 0.5 mg 2-17 mg by ity of tablet 15:47: mouth at [place] 19 bedtime. Medical Branch pantoprazol 2020-0 Yes 40mg Take 40 mg Univers e 40 mg EC 2-17 by mouth ity o f tablet 15:47: daily. [address] Branch amitriptyli 2020-0 Yes 75mg Take 75 mg Univers ne 75 mg 2-17 by mouth ity of tablet 15:47: at [place] [address] bedtime. [facility] Branch naloxone 2020-0 Yes .4mg 0.4 mg, Univer s (NARCAN) 2-17 Slow IV ity of injection 15:44: Push, [place] 0.4 mg 34 SEE-INSTRU Medical CTIONS, Branch Starting 12/09/19 at 0944, Until Discontinu ed, Routine HYDROcodone 2020-0 Yes 1{tbl} 1 tablet, Univers -acetaminop 2-17 Oral, ity of hen (NORCO) 15:44: Q4HPRN, [place] 10-325 mg 10 Starting Medica l tablet 1 [facility] tablet 12/09/19 at 0944, Until Discontinu ed, Routine, Pain (scale 7-10) HYDROcodone 2020-0 Yes 1{tbl} 1 tablet, Univers -acetaminop 2-17 Oral, ity of hen (NORCO 15:44: Q6HPRN, [place] 5) 5-325 mg 07 Starting Medi mac tablet 1 [facility] tablet 12/09/19 at 0944, Until Discontinu ed, Routine, Pain (scale 4-6) ondansetron 2019-0 Yes 4mg 4 mg, Slow Univers (ZOFRAN 2-17 IV Push, ity of (PF)) 15:43: Q6HPRN, [place] injection 4 54 Starting Medi mac mg [facility] 12/09/19 at 0943, Until Discontinu ed, Routine, Nausea and Vomiting (N/V) ceFAZolin 2019-0 2020- No 2000mg 2 g (2,000 Univers in dextrose 2-17 02-17 mg), IV ity of (iso-os) 15:30: 14:22 [place] (ANCEF) 2 00 :00 O.R. Medical gram/100 mL HOLDING Branc h Piggyback 2 ONCE, 1 g dose, Starting [facility] 12/09/19 at 0930, Until Mon12/09/19 at 0822, [...] 15:04: 16:27 [place] 00 :56 [facility] 12/09/19 at Branch 0904, Until 12/09/19 at [...] Mon Medical 12/09/19 at Branch 0856, Until 12/09/19 at 1027, Routine, Intra-op diphenhydrA 2020-0 2020- No ONCE INTRA Univers MINE 12-09 PROCEDURE, ity of (BENADRYL) 14:56: 16:27 [place] injection 00 :56 Mon Medical 12/09/19 at Branch 08, Until 12/09/19 at 1027, Routine, Intra-op HYDROmorphO 2020-0 2020- No ONCE INTRA Univers ne 12-09 PROCEDURE, ity of (DILAUDID) 14:56: 16:27 [place] injection 00 :56 Mon Medical 12/09/19 at Branch 08, Until 12/09/19 at 1027, Routine, Intra-op diphenhydrA 2020-0 2020- No ONCE INTRA Univers MINE 12-09 PROCEDURE, ity of (BENADRYL) 14:56: 16:27 [place] 00 :56 [facility] Medical 12/09/19 at Branch [facility], Until Mon12/09/19 at 1027, Routine, Intra-op ondansetron 2020-0 2020- No ONCE INTRA Univers (ZOFRAN 12-09 PROCEDURE, ity o f (PF)) 14:53: 16:27 Starting [place] injection 00 :56 [facility] Medical 12/09/19 at Branch [facility], Until Mon12/09/19 at 1027, Routine, Intra-op ondansetron 2020-0 2020- No ONCE INTRA Univers (ZOFRAN 12-09 PROCEDURE, ity o f (PF)) 14:53: 16:27 Starting [place] injection 00 :56 [facility] Medical 12/09/19 at Branch [facility], Until 12/09/19 at 1027, Routine, Intra-op FENTanyl PF 2020-0 2020- No ONCE INTRA Univers (SUBLIMAZE 12-09 PROCEDURE, it y of (PF)) 14:52: 16:27 Starting [place] injection 00 :56 [facility] Medical 12/09/19 at Branch [facility], Until 12/09/19 at 1027, Routine, Intra-op FENTanyl PF 2020-0 2020- No ONCE INTRA Univers (SUBLIMAZE 12-09 PROCEDURE, it y of (PF)) 14:52: 16:27 Starting [place] injection 00 :56 [facility] Medical 12/09/19 at Branch [facility], Until Mon12/09/19 at 1027, Routine, Intra-op propofol IV 2020-0 2020- No Intravenou Univers infusion 12-09 s, ONCE ity of 14:22: 16:27 INTRA [place] 00 :56 PROCEDURE, Medical Starting Branch [facility] 12/09/19 at 0822, Until [facility] 12/09/19 at 1027, Routine, Intra-op lidocaine 2020-0 2020- No ONCE INTRA U nivers 1% 12-09 PROCEDURE, ity of (XYLOCAINE) 14:22: 16:27 [place] 100 mg/10 00 :56 Mon Medical mL (1 %) 12/09/19 at [facility] h injection 0822, Until [facility] 12/09/19 at 1027, Routine, Intra-op propofol IV 2020-0 2020- No Intravenou Univers infusion 12-09 s, ONCE ity of 14:22: 16:27 INTRA [place] 00 :56 PROCEDURE, Medical Starting Branch [facility] 12/09/19 at 0822, Until [facility] 12/09/19 at 1027, Routine, Intra-op lidocaine 2020-0 2020- No ONCE INTRA U nivers 1% 12-09 PROCEDURE, ity of (XYLOCAINE) 14:: 16:27 Starting [place] 100 mg/10 00 :56 Mon Medical mL (1 %) 12/09/19 at [facility] h injection 0822, Until 12/09/19 at 1027, Routine, Intra-op midazolam 2020-0 2020- No ONCE INTRA U nivers (VERSED) 12-09 PROCEDURE, ity of injection 14:12: 16:27 Starting [place] 00 :56 [facility] 12/09/19 at Branch 0812, Until [facility] 12/09/19 at 1027, Routine, Intra-op midazolam 2020-0 2020- No ONCE INTRA U nivers (VERSED) 12-09 PROCEDURE, ity of injection 14:12: 16:27 Starting [place] 00 :56 [facility] Medical 12/09/19 at Branch 0812, Until [facility] 12/09/19 at 1027, Routine, Intra-op gabapentin 2020-0 2020- No 300mg 300 mg, [place] (NEURONTIN) 12-09 Oral, ity of capsule 300 13:30: 13:54 ONCE, 1 [place] mg 00 :00 dose, Mon Medical 12/09/19 at Branch 0730, Routine, DSU Pre-op oxyCODONE-a 2019-0 2020- No 2{tbl} 2 tablet, Univers cetaminophe 12-09 Oral, ity of n 13:30: 13:54 ONCE, 1 [place] (PERCOCET) 00 :00 dose, Mon Medi mac 5-325 mg 12/09/19 at Branc h per tablet 0730, 2 tablet Routine, DSU Pre-op tranexamic 2020- No 1000mg 1,000 mg, Univers acid 12-09 IV ity of (CYKLOKAPRO 13:15: 14:31 Piggyback, [facility] [place]) 1,000 mg 00 :00 ONCE, 1 Medic al in NaCl dose, Mon Branch 0.9% (NS) 12/09/19 at 250 mL 0715, 250 piggyback mL, DSU Pre-op tranexamic 2020- No 1000mg 1,000 mg, Univers acid 12-09 IV ity of (CYKLOKAPRO 13:15: 14:31 Piggyback, [place] N) 1,000 mg 00 :00 ONCE, 1 Medic al in NaCl dose, Mon Branch 0.9% (NS) 12/09/19 at 250 mL 0715, 250 piggyback mL, DSU Pre-op ceFAZolin 2020- No 2g Univers in dextrose 12-09 ity of (iso-os) 06:00: 17:59 [place] (ANCEF) 2 00 :00 Medical gram/100 mL Branch Piggyback 2 g celecoxib 2019- 2020- No 400mg Univer s (CELEBREX) 12-09 ity of capsule 400 06:00: 17:59 [place] mg 00 :00 Medical Branch gabapentin 2019-0 2020- No 300mg Unive rs (NEURONTIN) 12-09 ity of capsule 300 06:00: 17:59 [place] mg 00 :00 Medical Branch oxyCODONE-a 2020-0 2020- No 2{tbl} Uni vers cetaminophe 12-09 ity of n 06:00: 17:59 [place] (PERCOCET) 00 :00 Medical 5-325 mg Branch per tablet 2 tablet tranexamic 2020- No 1000mg Univ ers acid 12-09 ity of (CYKLOKAPRO 06:00: 17:59 [place] N) 1,000 mg 00 :00 Medical in NaCl Branch 0.9% (NS) 250 mL piggyback ceFAZolin 2020-0 2020- No 2g Univers in dextrose 12-09 [...] [place] mg 00 :00 Medical Branch gabapentin 2019- No 300mg Unive rs (NEURONTIN) 12-09 ity of capsule 300 06:00: 17:59 [place] mg 00 :00 Medical Branch oxyCODONE-a 2019- No 2{tbl} Uni vers cetaminophe 12-09 ity of n 06:00: 17:59 [place] (PERCOCET) 00 :00 Medical 5-325 mg Branch [...] 2-14 by mouth ity of 17:34: at [place] 28 bedtime. Medical Branch venlafaxine 2019-0 Yes 150mg Take 150 U nivers XR 150 mg 2-14 mg by ity of 24 hr 17:34: mouth [place] capsule 28 daily with Medica l breakfast. Branch clonazePAM 2019-0 Yes .5mg Take 0.5 Uni vers 0.5 mg 2-14 mg by ity of tablet 17:34: mouth at [place] 28 bedtime. Medical Branch pantoprazol 2019-0 Yes 40mg Take 40 mg Univers e 40 mg EC 2-14 by mouth ity o f tablet 17:34: daily. [place] [address] Medical Branch amitriptyli 2020-0 Yes 75mg Take 75 mg Univers ne 75 mg 2-14 by mouth ity of tablet 17:34: at [place] [address] bedtime. Medical Branch verapamil 2020-0 Yes 120mg Take 120 Uni vers (VERELAN 2-14 mg by ity of PM) 120 mg 17:34: mouth at [place] 24 hr 28 bedtime. Medical capsule Branch metFORMIN 2020-0 Yes 500mg Take 500 Uni vers 500 mg 2-14 mg by ity of tablet 17:34: mouth 2 [place] [address] (two) Medical times Branch daily with meals. rOPINIRole 2020-0 Yes 2mg Take 2 mg [place] 2 mg tablet 2-14 by mouth ity of 17:34: at [place] [address] bedtime. Medical Branch venlafaxine 2020-0 Yes 150mg Take 150 U nivers XR 150 mg 2-14 mg by ity of 24 hr 17:34: mouth [place] [id number] daily with Medica l breakfast. Branch clonazePAM 2020-0 Yes .5mg Take 0.5 Uni vers 0.5 mg 2-14 mg by ity of tablet 17:34: mouth at [place] [address] bedtime. Medical Branch pantoprazol 2020-0 Yes 40mg Take 40 mg Univers e 40 mg EC 2-14 by mouth ity o f tablet 17:34: daily. [place] [address] Medical Branch amitriptyli 2020-0 Yes 75mg Take 75 mg Univers ne 75 mg 2-14 by mouth ity of tablet 17:34: at [place] [address] bedtime. Medical Branch verapamil 2020-0 Yes 120mg Take 120 Uni vers (VERELAN 2-14 mg by ity of PM) 120 mg 17:34: mouth at [place] 24 hr 28 bedtime. Medical capsule Branch metFORMIN 2020-0 Yes 500mg Take 500 Uni vers 500 mg 2-14 mg by ity of tablet 17:34: mouth 2 [place] [address] (two) Medical times Branch daily with meals. rOPINIRole 2020-0 Yes 2mg Take 2 mg [place] 2 mg tablet 2-14 by mouth ity of 17:34: at [place] [address] bedtime. Medical Branch venlafaxine 2020-0 Yes 150mg Take 150 U nivers XR 150 mg 2-14 mg by ity of 24 hr 17:34: mouth [place] capsule 28 daily with Medica l breakfast. Branch clonazePAM 2019-0 Yes .5mg Take 0.5 Uni vers 0.5 mg 2-14 mg by ity of tablet 17:34: mouth at [place] [address] bedtime. Medical Branch pantoprazol 2019-0 Yes 40mg Take 40 mg Univers e 40 mg EC 2-14 by mouth ity o f tablet 17:34: daily. [place] [address] Medical Branch amitriptyli 2019-0 Yes 75mg Take 75 mg Univers ne 75 mg 2-14 by mouth ity of tablet 17:34: at [place] [address] bedtime. Medical Branch HYDROcodone 2019-0 2020- No 1{tbl} Take 1 U nivers -acetaminop 2-14 02-14 tablet by it y of hen (NORCO) 17:33: 00:00 mouth [place] 10-325 mg 12 :00 every 6 Medical tablet (six) Branch hours as needed. atorvastati 2019-0 2020- No 80mg Take 80 mg Univers n 80 mg 2-14 02-14 by mouth. ity of tablet 17:33: 00:00 [place] 12 :00 Medical Branch Levothyroxi 2019-0 2020- No 100ug Take 100 Univers ne 100 mcg 2-14 02-14 mcg by ity of capsule 17:33: 00:00 mouth. [place] 12 :00 Medical Branch QUEtiapine 2019-0 2020- No 200mg Take 200 U nivers 200 mg 2-14 02-14 mg by ity of tablet 17:33: 00:00 mouth at [place] 12 :00 bedtime. Medical Branch venlafaxine 0 2020- No 37.5mg Take 37.5 Univers XR 37.5 mg 2-14 02-14 mg by ity of 24 hr 17:33: 00:00 mouth [place] capsule 12 :00 daily with Medica l breakfast. Branch HYDROcodone 2020-0 Yes 1{tbl} Take 1 Un [place] -acetaminop 2-05 tablet by ity of hen [...] HYDROcodone 2020-0 Yes 1{tbl} Take 1 Un [place] -acetaminop 2-05 tablet by ity of hen 7.5-325 00:00: mouth 3 [place] mg per 00 (three) Medical tablet times Branch daily as needed. HYDROcodone 2020-0 Yes 1{tbl} Take 1 [place] -acetaminop 2-05 tablet by ity of hen [...] ity of hen 7.5-325 00:00: mouth 3 [place] mg per 00 (three) Medical tablet [...] by ity of tablet 00:00: mouth at [place] [address] bedtime. Medical Branch QUEtiapine 2020-0 Yes 100mg Take 100 [place] 100 mg 2-03 mg by ity of tablet 00:00: mouth at [place] [address] bedtime. Medical Branch QUEtiapine 2020-0 Yes 100mg Take 100 [place] 100 mg 2-03 mg by ity of tablet 00:00: mouth at [place] [address] bedtime. Medical Branch QUEtiapine 2020-0 Yes 100mg Take 100 [place] 100 mg 2-03 mg by ity of tablet 00:00: mouth at [place] [address] bedtime. Medical Branch QUEtiapine 2020-0 Yes 100mg Take 100 [place] 100 mg 2-03 mg by ity of tablet 00:00: mouth at [place] [address] bedtime. Medical Branch QUEtiapine 2020-0 Yes 100mg Take 100 [place] 100 mg 2-03 mg by ity of tablet 00:00: mouth at [place] [address] bedtime. Medical Branch QUEtiapine 2020-0 Yes 100mg Take 100 [place] 100 mg 2-03 mg by ity of tablet 00:00: mouth at [place] [address] bedtime. Medical Branch QUEtiapine 2020-0 Yes 100mg Take 100 [place] 100 mg 2-03 mg by ity of tablet 00:00: mouth at [place] [address] bedtime. Medical Branch QUEtiapine 2020-0 Yes 100mg Take 100 [place] 100 mg 2-03 mg by ity of tablet 00:00: mouth at [place] [address] bedtime. Medical Branch QUEtiapine 2020-0 Yes 100mg Take 100 [place] 100 mg 2-03 mg by ity of tablet 00:00: mouth at [place] [address] bedtime. Medical Branch QUEtiapine 2020-0 Yes 100mg Take 100 [place] 100 mg 2-03 mg by ity of tablet 00:00: mouth at [place] [address] bedtime. Medical Branch QUEtiapine 2020-0 Yes 100mg Take 100 [place] 100 mg 2-03 mg by ity of tablet 00:00: mouth at [place] [address] bedtime. Medical Branch QUEtiapine 2020-0 Yes 100mg Take 100 [place] 100 mg 2-03 mg by ity of tablet 00:00: mouth at [place] [address] bedtime. Medical Branch QUEtiapine 2020-0 Yes 100mg Take 100 [place] 100 mg 2-03 mg by ity of tablet 00:00: mouth at [place] [address] bedtime. Medical Branch QUEtiapine 2020-0 Yes 100mg Take 100 [place] 100 mg 2-03 mg by ity of tablet 00:00: mouth at [place] [address] bedtime. Medical Branch QUEtiapine 2020-0 Yes 100mg Take 100 [place] 100 mg 2-03 mg by ity of tablet 00:00: mouth at [place] [address] bedtime. Medical Branch QUEtiapine 2020-0 Yes 100mg Take 100 [place] 100 mg 2-03 mg by ity of tablet 00:00: mouth at [place] [address] bedtime. Medical Branch QUEtiapine 2020-0 Yes 100mg Take 100 [place] 100 mg 2-03 mg by ity of tablet 00:00: mouth at [place] [address] bedtime. Medical Branch QUEtiapine 2020-0 Yes 100mg Take 100 [place] 100 mg 2-03 mg by ity of tablet 00:00: mouth at [place] [address] bedtime. Medical Branch QUEtiapine 2020-0 Yes 100mg Take 100 [place] 100 mg 2-03 mg by ity of tablet 00:00: mouth at [place] [address] bedtime. Medical Branch QUEtiapine 2020-0 Yes 100mg Take 100 [place] 100 mg 2-03 mg by ity of tablet 00:00: mouth at [place] [address] bedtime. Medical Branch QUEtiapine 2020-0 Yes 100mg Take 100 [place] 100 mg 2-03 mg by ity of tablet 00:00: mouth at [place] [address] bedtime. Medical Branch QUEtiapine 2020-0 Yes 100mg Take 100 [place] 100 mg 2-03 mg by ity of tablet 00:00: mouth at [place] [address] bedtime. Medical Branch QUEtiapine 2020-0 Yes 100mg Take 100 [place] 100 mg 2-03 mg by ity of tablet 00:00: mouth at [place] [address] bedtime. Medical Branch QUEtiapine 2020-0 Yes 100mg Take 100 [place] 100 mg 2-03 mg by ity of tablet 00:00: mouth at [place] [address] bedtime. Medical Branch QUEtiapine 2020-0 Yes 100mg Take 100 [place] 100 mg 2-03 mg by ity of tablet 00:00: mouth at [place] [address] bedtime. Medical Branch QUEtiapine 2020-0 Yes 100mg Take 100 [place] 100 mg 2-03 mg by ity of tablet 00:00: mouth at [place] [address] bedtime. Medical Branch QUEtiapine 2020-0 Yes 100mg Take 100 [place] 100 mg 2-03 mg by ity of tablet 00:00: mouth at [place] [address] bedtime. Medical Branch QUEtiapine 2020-0 Yes 100mg Take 100 [place] 100 mg 2-03 mg by ity of tablet 00:00: mouth at [place] [address] bedtime. Medical Branch QUEtiapine 2020-0 Yes 100mg Take 100 [place] 100 mg 2-03 mg by ity of tablet 00:00: mouth at [place] [address] bedtime. Medical Branch QUEtiapine 2020-0 Yes 100mg Take 100 [place] 100 mg 2-03 mg by ity of tablet 00:00: mouth at [place] [address] bedtime. Medical Branch QUEtiapine 2020-0 Yes 100mg Take 100 [place] 100 mg 2-03 mg by ity of tablet 00:00: mouth at [place] [address] bedtime. Medical Branch QUEtiapine 2020-0 Yes 100mg Take 100 [place] 100 mg 2-03 mg by ity of tablet 00:00: mouth at [place] [address] bedtime. Medical Branch QUEtiapine 2020-0 Yes 100mg Take 100 [place] 100 mg 2-03 mg by ity of tablet 00:00: mouth at [place] [address] bedtime. Medical Branch QUEtiapine 2020-0 Yes 100mg Take 100 [place] 100 mg 2-03 mg by ity of tablet 00:00: mouth at [place] [address] bedtime. Medical Branch QUEtiapine 2020-0 Yes 100mg Take 100 [place] 100 mg 2-03 mg by ity of tablet 00:00: mouth at [place] [address] bedtime. Medical Branch QUEtiapine 2020-0 Yes 100mg Take 100 [place] 100 mg 2-03 mg by ity of tablet 00:00: mouth at [place] [address] bedtime. Medical Branch QUEtiapine 2020-0 Yes 100mg Take 100 [place] 100 mg 2-03 mg by ity of tablet 00:00: mouth at [place] [address] bedtime. Medical Branch QUEtiapine 2020-0 Yes 100mg Take 100 [place] 100 mg 2-03 mg by ity of tablet 00:00: mouth at [place] [address] bedtime. Medical Branch QUEtiapine 2020-0 Yes 100mg Take 100 [place] 100 mg 2-03 mg by ity of tablet 00:00: mouth at [place] [address] bedtime. Medical Branch QUEtiapine 2020-0 Yes 100mg Take 100 [place] 100 mg 2-03 mg by ity of tablet 00:00: mouth at [place] [address] bedtime. Medical Branch QUEtiapine 2020-0 Yes 100mg Take 100 [place] 100 mg 2-03 mg by ity of tablet 00:00: mouth at [place] [address] bedtime. Medical Branch QUEtiapine 2020-0 Yes 100mg Take 100 [place] 100 mg 2-03 mg by ity of tablet 00:00: mouth at [place] [address] bedtime. Medical Branch QUEtiapine 2020-0 Yes 100mg Take 100 [place] 100 mg 2-03 mg by ity of tablet 00:00: mouth at [place] [address] bedtime. Medical Branch QUEtiapine 2020-0 Yes 100mg Take 100 [place] 100 mg 2-03 mg by ity of tablet 00:00: mouth at [place] [address] bedtime. Medical Branch QUEtiapine 2020-0 Yes 100mg Take 100 [place] 100 mg 2-03 mg by ity of tablet 00:00: mouth at [place] [address] bedtime. Medical Branch QUEtiapine 2020-0 Yes 100mg Take 100 [place] 100 mg 2-03 mg by ity of tablet 00:00: mouth at [place] [address] bedtime. Medical Branch QUEtiapine 2020-0 Yes 100mg Take 100 [place] 100 mg 2-03 mg by ity of tablet 00:00: mouth at [place] [address] bedtime. Medical Branch QUEtiapine 2020-0 Yes 100mg Take 100 [place] 100 mg 2-03 mg by ity of tablet 00:00: mouth at [place] [address] bedtime. Medical Branch QUEtiapine 2020-0 Yes 100mg Take 100 [place] 100 mg 2-03 mg by ity of tablet 00:00: mouth at [place] [address] bedtime. Medical Branch QUEtiapine 2020-0 Yes 100mg Take 100 [place] 100 mg 2-03 mg by ity of tablet 00:00: mouth at [place] [address] bedtime. Medical Branch QUEtiapine 2020-0 Yes 100mg Take 100 [place] 100 mg 2-03 mg by ity of tablet 00:00: mouth at [place] [address] bedtime. Medical Branch QUEtiapine 2020-0 Yes 100mg Take 100 [place] 100 mg 2-03 mg by ity of tablet 00:00: mouth at [place] [address] bedtime. Medical Branch QUEtiapine 2020-0 Yes 100mg Take 100 [place] 100 mg 2-03 mg by ity of tablet 00:00: mouth at [place] [address] bedtime. Medical Branch QUEtiapine 2020-0 Yes 100mg Take 100 [place] 100 mg 2-03 mg by ity of tablet 00:00: mouth at [place] [address] bedtime. Medical Branch QUEtiapine 2020-0 Yes 100mg Take 100 [place] 100 mg 2-03 mg by ity of tablet 00:00: mouth at [place] [address] bedtime. Medical Branch QUEtiapine 2020-0 Yes 100mg Take 100 [place] 100 mg 2-03 mg by ity of tablet 00:00: mouth at [place] [address] bedtime. Medical Branch QUEtiapine 2020-0 Yes 100mg Take 100 [place] 100 mg 2-03 mg by ity of tablet 00:00: mouth at [place] [address] bedtime. Medical Branch QUEtiapine 2020-0 Yes 100mg Take 100 [place] 100 mg 2-03 mg by ity of tablet 00:00: mouth at [place] [address] bedtime. Medical Branch QUEtiapine 2020-0 Yes 100mg Take 100 [place] 100 mg 2-03 mg by ity of tablet 00:00: mouth at [place] [address] bedtime. Medical Branch QUEtiapine 2020-0 Yes 100mg Take 100 [place] 100 mg 2-03 mg by ity of tablet 00:00: mouth at [place] [address] bedtime. Medical Branch QUEtiapine 2020-0 Yes 100mg Take 100 [place] 100 mg 2-03 mg by ity of tablet 00:00: mouth at [place] [address] bedtime. Medical Branch QUEtiapine 2020-0 Yes 100mg Take 100 [place] 100 mg 2-03 mg by ity of tablet 00:00: mouth at [place] [address] bedtime. Medical Branch QUEtiapine 2020-0 Yes 100mg Take 100 [place] 100 mg 2-03 mg by ity of tablet 00:00: mouth at [place] [address] bedtime. Medical Branch spironolact 2020-0 Yes 25mg Take 25 mg Univers one 25 mg 1-22 by mouth ity of tablet 00:00: daily. [place] [address] Medical Branch spironolact 2020-0 Yes 25mg Take 25 mg Univers one 25 mg 1-22 by mouth ity of tablet 00:00: daily. [place] Medical Branch spironolact 2020-0 Yes 25mg Take 25 mg Univers one 25 mg 1-22 by mouth ity of tablet 00:00: daily. [place] [facility] spironolact 2020-0 Yes 25mg Take 25 mg Univers one 25 mg 1-22 by mouth ity of tablet 00:00: daily. [place] [facility] spironolact 2020-0 Yes 25mg Take 25 mg Univers one 25 mg 1-22 by mouth ity of tablet 00:00: daily. [place] [facility] spironolact 2020-0 Yes 25mg Take 25 mg Univers one 25 mg 1-22 by mouth ity of tablet 00:00: daily. [place] [facility] spironolact 2020-0 Yes 25mg Take 25 mg Univers one 25 mg 1-22 by mouth ity of tablet 00:00: daily. [place] [facility] spironolact 2020-0 Yes 25mg Take 25 mg Univers one 25 mg 1-22 by mouth ity of tablet 00:00: daily. [place] [facility] spironolact 2020-0 Yes 25mg Take 25 mg Univers one 25 mg 1-22 by mouth ity of tablet 00:00: daily. [place] [facility] spironolact 2020-0 Yes 25mg Take 25 mg Univers one 25 mg 1-22 by mouth ity of tablet 00:00: daily. [place] [facility] spironolact 2020-0 Yes 25mg Take 25 mg Univers one 25 mg 1-22 by mouth ity of tablet 00:00: daily. [place] [facility] spironolact 2020-0 Yes 25mg Take 25 mg Univers one 25 mg 1-22 by mouth ity of tablet 00:00: daily. [place] [facility] spironolact 2020-0 Yes 25mg Take 25 mg Univers one 25 mg 1-22 by mouth ity of tablet 00:00: daily. [place] [facility] spironolact 2020-0 Yes 25mg Take 25 mg Univers one 25 mg 1-22 by mouth ity of tablet 00:00: daily. [place] [facility] spironolact 2020-0 Yes 25mg Take 25 mg Univers one 25 mg 1-22 by mouth ity of tablet 00:00: daily. [address] spironolact 2020-0 Yes 25mg Take 25 mg Univers one 25 mg 1-22 by mouth ity of tablet 00:00: daily. [place] [facility] spironolact 2020-0 Yes 25mg Take 25 mg Univers one 25 mg 1-22 by mouth ity of tablet 00:00: daily. [place] [facility] spironolact 2020-0 Yes 25mg Take 25 mg Univers one 25 mg 1-22 by mouth ity of tablet 00:00: daily. [place] [facility] spironolact 2020-0 Yes 25mg Take 25 mg Univers one 25 mg 1-22 by mouth ity of tablet 00:00: daily. [place] [facility] spironolact 2020-0 Yes 25mg Take 25 mg Univers one 25 mg 1-22 by mouth ity of tablet 00:00: daily. [place] [facility] spironolact 2020-0 Yes 25mg Take 25 mg Univers one 25 mg 1-22 by mouth ity of tablet 00:00: daily. [place] [facility] spironolact 2020-0 Yes 25mg Take 25 mg Univers one 25 mg 1-22 by mouth ity of tablet 00:00: daily. [place] [facility] spironolact 2020-0 Yes 25mg Take 25 mg Univers one 25 mg 1-22 by mouth ity of tablet 00:00: daily. [place] [facility] spironolact 2020-0 Yes 25mg Take 25 mg Univers one 25 mg 1-22 by mouth ity of tablet 00:00: daily. [place] [facility] spironolact 2020-0 Yes 25mg Take 25 mg Univers one 25 mg 1-22 by mouth ity of tablet 00:00: daily. [place] [facility] spironolact 2020-0 Yes 25mg Take 25 mg Univers one 25 mg 1-22 by mouth ity of tablet 00:00: daily. [place] [facility] spironolact 2020-0 Yes 25mg Take 25 mg Univers one 25 mg 1-22 by mouth ity of tablet 00:00: daily. [place] [facility] spironolact 2020-0 Yes 25mg Take 25 mg Univers one 25 mg 1-22 by mouth ity of tablet 00:00: daily. [place] [facility] spironolact 2020-0 Yes 25mg Take 25 mg Univers one 25 mg 1-22 by mouth ity of tablet 00:00: daily. [address] spironolact 2020-0 Yes 25mg Take 25 mg Univers one 25 mg 1-22 by mouth ity of tablet 00:00: daily. [place] [facility] spironolact 2020-0 Yes 25mg Take 25 mg Univers one 25 mg 1-22 by mouth ity of tablet 00:00: daily. [place] [facility] spironolact 2020-0 Yes 25mg Take 25 mg Univers one 25 mg 1-22 by mouth ity of tablet 00:00: daily. [place] [facility] Branch spironolact 2020-0 Yes 25mg Take 25 mg Univers one 25 mg 1-22 by mouth ity of tablet 00:00: daily. [place] [facility] spironolact 2020-0 Yes 25mg Take 25 mg Univers one 25 mg 1-22 by mouth ity of tablet 00:00: daily. [place] [facility] [facility]0 Yes 25mg Take 25 mg [facility] 25 mg 1-22 by mouth ity of tablet 00:00: daily. [place] [facility] spironolact 2020-0 Yes 25mg Take 25 mg [facility] one 25 mg 1-22 by mouth ity of tablet 00:00: daily. [place] [facility] spironolact 2020-0 Yes 25mg Take 25 mg [facility] one 25 mg 1-22 by mouth ity of tablet 00:00: daily. [place] [facility] spironolact 2020-0 Yes 25mg Take 25 mg [facility] one 25 mg 1-22 by mouth ity of tablet 00:00: daily. [place] [facility] spironolact 2020-0 Yes 25mg Take 25 mg [facility] one 25 mg 1-22 by mouth ity of tablet 00:00: daily. [place] [facility] spironolact 2020-0 Yes 25mg Take 25 mg [facility] one 25 mg 1-22 by mouth ity of tablet 00:00: daily. [place] [facility] spironolact 2020-0 Yes 25mg Take 25 mg [facility] one 25 mg 1-22 by mouth ity of tablet 00:00: daily. [place] [facility] spironolact 2020-0 Yes 25mg Take 25 mg [facility] one 25 mg 1-22 by mouth ity of tablet 00:00: daily. [place] [facility] spironolact 2020-0 Yes 25mg Take 25 mg [facility] one 25 mg 1-22 by mouth ity of tablet 00:00: daily. [address] spironolact 2020-0 Yes 25mg Take 25 mg [facility] one 25 mg 1-22 by mouth ity of tablet 00:00: daily. [place] [facility] spironolact 2020-0 Yes 25mg Take 25 mg [facility] one 25 mg 1-22 by mouth ity of tablet 00:00: daily. [place] [facility] spironolact 2020-0 Yes 25mg Take 25 mg [facility] one 25 mg 1-22 by mouth ity of tablet 00:00: daily. [place] [facility] spironolact 2020-0 Yes 25mg Take 25 mg [facility] one 25 mg 1-22 by mouth ity of tablet 00:00: daily. [place] [facility] spironolact 2020-0 Yes 25mg Take 25 mg [facility] one 25 mg 1-22 by mouth ity of tablet 00:00: daily. [place] [facility] spironolact 2020-0 Yes 25mg Take 25 mg [facility] one 25 mg 1-22 by mouth ity of tablet 00:00: daily. [place] [facility] spironolact 2020-0 Yes 25mg Take 25 mg [facility] one 25 mg 1-22 by mouth ity of tablet 00:00: daily. [place] [facility] spironolact 2020-0 Yes 25mg Take 25 mg [facility] one 25 mg 1-22 by mouth ity of tablet 00:00: daily. [place] [facility] spironolact 2020-0 Yes 25mg Take 25 mg [facility] one 25 mg 1-22 by mouth ity of tablet 00:00: daily. [place] [facility] spironolact 2020-0 Yes 25mg Take 25 mg [facility] one 25 mg 1-22 by mouth ity of tablet 00:00: daily. [place] [facility] spironolact 2020-0 Yes 25mg Take 25 mg [facility] one 25 mg 1-22 by mouth ity of tablet 00:00: daily. [place] [facility] spironolact 2020-0 Yes 25mg Take 25 mg [facility] one 25 mg 1-22 by mouth ity of tablet 00:00: daily. [place] [facility] spironolact 2020-0 Yes 25mg Take 25 mg [facility] one 25 mg 1-22 by mouth ity of tablet 00:00: daily. [place] [facility] spironolact 2020-0 Yes 25mg Take 25 mg [facility] one 25 mg 1-22 by mouth ity of tablet 00:00: daily. [place] [facility] spironolact 2020-0 Yes 25mg Take 25 mg [facility] one 25 mg 1-22 by mouth ity of tablet 00:00: daily. [place] [facility] spironolact 2020-0 Yes 25mg Take [...] ity of tablet 00:00: daily. [facility] SERTraline 2020-0 Yes 50mg Take 50 mg [facility] n[facility] 50 mg 1-16 by mouth ity of tablet 00:00: at [place] [address] bedtime. [facility] SERTraline 2020-0 Yes 50mg Take 50 mg [facility] nivers 50 mg 1-16 by mouth ity of tablet 00:00: at [place] [address] bedtime. [facility] SERTraline 2020-0 Yes 50mg Take 50 mg [facility] nivers 50 mg 1-16 by mouth ity of tablet 00:00: at [place] [address] bedtime. [facility] SERTraline 2020-0 Yes 50mg Take 50 mg [facility] nivers 50 mg 1-16 by mouth ity of tablet 00:00: at [place] [address] bedtime. [facility] SERTraline 2020-0 Yes 50mg Take 50 mg [facility] nivers 50 mg 1-16 by mouth ity of tablet 00:00: at [place] [address] bedtime. [facility] SERTraline 2020-0 Yes 50mg Take 50 mg [facility] nivers 50 mg 1-16 by mouth ity of tablet 00:00: at [place] [address] bedtime. [facility] SERTraline 2020-0 Yes 50mg Take 50 mg [facility] nivers 50 mg 1-16 by mouth ity of tablet 00:00: at [place] [address] bedtime. [facility] SERTraline 2020-0 Yes 50mg Take 50 mg [facility] nivers 50 mg 1-16 by mouth ity of tablet 00:00: at [place] [address] bedtime. [facility] SERTraline 2020-0 Yes 50mg Take 50 mg U nivers 50 mg 1-16 by mouth ity of tablet 00:00: at [place] [address] bedtime. [facility] SERTraline 2020-0 Yes 50mg Take 50 mg [facility] nivers 50 mg 1-16 by mouth ity of tablet 00:00: at [place] [address] bedtime. [facility] SERTraline 2020-0 Yes 50mg Take 50 mg U nivers 50 mg 1-16 by mouth ity of tablet 00:00: at [place] [address] bedtime. [facility] SERTraline 2020-0 Yes 50mg Take 50 mg U nivers 50 mg 1-16 by mouth ity of tablet 00:00: at [place] [address] bedtime. [facility] SERTraline 2020-0 Yes 50mg Take 50 mg [facility] nivers 50 mg 1-16 by mouth ity of tablet 00:00: at [place] [address] bedtime. [facility] SERTraline 2020-0 Yes 50mg Take 50 mg [facility] nivers 50 mg 1-16 by mouth ity of tablet 00:00: at [place] [address] bedtime. [facility] SERTraline 2020-0 Yes 50mg Take 50 mg U nivers 50 mg 1-16 by mouth ity of tablet 00:00: at [place] [address] bedtime. [facility] SERTraline 2020-0 Yes 50mg Take 50 mg [facility] nivers 50 mg 1-16 by mouth ity of tablet 00:00: at [place] [address] bedtime. [facility] SERTraline 2020-0 Yes 50mg Take 50 mg [facility] nivers 50 mg 1-16 by mouth ity of tablet 00:00: at [place] [address] bedtime. [facility] SERTraline 2020-0 Yes 50mg Take 50 mg [facility] nivers 50 mg 1-16 by mouth ity of tablet 00:00: at [place] [address] bedtime. [facility] SERTraline 2020-0 Yes 50mg Take 50 mg [facility] nivers 50 mg 1-16 by mouth ity of tablet 00:00: at [place] [address] bedtime. [facility] SERTraline 2020-0 Yes 50mg Take 50 mg [facility] nivers 50 mg 1-16 by mouth ity of tablet 00:00: at [place] [address] bedtime. [facility] SERTraline 2020-0 Yes 50mg Take 50 mg [facility] nivers 50 mg 1-16 by mouth ity of tablet 00:00: at [place] [address] bedtime. [facility] SERTraline 2020-0 Yes 50mg Take 50 mg [facility] nivers 50 mg 1-16 by mouth ity of tablet 00:00: at [place] [address] bedtime. [facility] SERTraline 2020-0 Yes 50mg Take 50 mg [facility] nivers 50 mg 1-16 by mouth ity of tablet 00:00: at [place] [address] bedtime. [facility] SERTraline 2020-0 Yes 50mg Take 50 mg [facility] nivers 50 mg 1-16 by mouth ity of tablet 00:00: at [place] [address] bedtime. [facility] SERTraline 2020-0 Yes 50mg Take 50 mg [facility] nivers 50 mg 1-16 by mouth ity of tablet 00:00: at [place] [address] bedtime. [facility] SERTraline 2020-0 Yes 50mg Take 50 mg [facility] nivers 50 mg 1-16 by mouth ity of tablet 00:00: at [place] [address] bedtime. [facility] SERTraline 2020-0 Yes 50mg Take 50 mg [facility] nivers 50 mg 1-16 by mouth ity of tablet 00:00: at [place] [address] bedtime. [facility] SERTraline 2020-0 Yes 50mg Take 50 mg U nivers 50 mg 1-16 by mouth ity of tablet 00:00: at [place] [address] bedtime. [facility] SERTraline 2020-0 Yes 50mg Take 50 mg [facility] nivers 50 mg 1-16 by mouth ity of tablet 00:00: at [place] [address] bedtime. [facility] SERTraline 2020-0 Yes 50mg Take 50 mg [facility] nivers 50 mg 1-16 by mouth ity of tablet 00:00: at [place] [address] bedtime. [facility] SERTraline 2020-0 Yes 50mg Take 50 mg [facility] n[facility] 50 mg 1-16 by mouth ity of tablet 00:00: at [place] [address] bedtime. [facility] SERTraline 2020-0 Yes 50mg Take 50 mg [facility] nivers 50 mg 1-16 by mouth ity of tablet 00:00: at [place] [address] bedtime. [facility] SERTraline 2020-0 Yes 50mg Take 50 mg [facility] n[facility] 50 mg 1-16 by mouth ity of tablet 00:00: at [place] [address] bedtime. [facility] SERTraline 2020-0 Yes 50mg Take 50 mg [facility] nivers 50 mg 1-16 by mouth ity of tablet 00:00: at [place] [address] bedtime. [facility] SERTraline 2020-0 Yes 50mg Take 50 mg [facility] nivers 50 mg 1-16 by mouth ity of tablet 00:00: at [place] [address] bedtime. [facility] SERTraline 2020-0 Yes 50mg Take 50 mg [facility] nivers 50 mg 1-16 by mouth ity of tablet 00:00: at [place] [address] bedtime. [facility] SERTraline 2020-0 Yes 50mg Take 50 mg [facility] nivers 50 mg 1-16 by mouth ity of tablet 00:00: at [place] [address] bedtime. [facility] SERTraline 2020-0 Yes 50mg Take 50 mg [facility] nivers 50 mg 1-16 by mouth ity of tablet 00:00: at [place] [address] bedtime. [facility] SERTraline 2020-0 Yes 50mg Take 50 mg [facility] nivers 50 mg 1-16 by mouth ity of tablet 00:00: at [place] [address] bedtime. [facility] SERTraline 2020-0 Yes 50mg Take 50 mg [facility] nivers 50 mg 1-16 by mouth ity of tablet 00:00: at [place] [address] bedtime. [facility] SERTraline 2020-0 Yes 50mg Take 50 mg U nivers 50 mg 1-16 by mouth ity of tablet 00:00: at [place] [address] bedtime. [facility] SERTraline 2020-0 Yes 50mg Take 50 mg [facility] nivers 50 mg 1-16 by mouth ity of tablet 00:00: at [place] [address] bedtime. [facility] SERTraline 2020-0 Yes 50mg Take 50 mg [facility] nivers 50 mg 1-16 by mouth ity of tablet 00:00: at [place] [address] bedtime. [facility] SERTraline 2020-0 Yes 50mg Take 50 mg [facility] nivers 50 mg 1-16 by mouth ity of tablet 00:00: at [place] [address] bedtime. [facility] SERTraline 2020-0 Yes 50mg Take 50 mg [facility] nivers 50 mg 1-16 by mouth ity of tablet 00:00: at [place] [address] bedtime. [facility] SERTraline 2020-0 Yes 50mg Take 50 mg [facility] nivers 50 mg 1-16 by mouth ity of tablet 00:00: at [place] [address] bedtime. [facility] SERTraline 2020-0 Yes 50mg Take 50 mg [facility] nivers 50 mg 1-16 by mouth ity of tablet 00:00: at [place] [address] bedtime. [facility] SERTraline 2020-0 Yes 50mg Take 50 mg [facility] nivers 50 mg 1-16 by mouth ity of tablet 00:00: at [place] [address] bedtime. [facility] SERTraline 2020-0 Yes 50mg Take 50 mg U nivers 50 mg 1-16 by mouth ity of tablet 00:00: at [place] [address] bedtime. [facility] SERTraline 2020-0 Yes 50mg Take 50 mg U nivers 50 mg 1-16 by mouth ity of tablet 00:00: at [place] [address] bedtime. [facility] SERTraline 2020-0 Yes 50mg Take 50 mg [facility] nivers 50 mg 1-16 by mouth ity of tablet 00:00: at [place] [address] bedtime. [facility] SERTraline 2020-0 Yes 50mg Take 50 mg [facility] nivers 50 mg 1-16 by mouth ity of tablet 00:00: at [place] [address] bedtime. [facility] SERTraline 2020-0 Yes 50mg Take 50 mg [facility] nivers 50 mg 1-16 by mouth ity of tablet 00:00: at [place] [address] bedtime. [facility] SERTraline 2020-0 Yes 50mg Take 50 mg [facility] nivers 50 mg 1-16 by mouth ity of tablet 00:00: at [place] [address] bedtime. [facility] SERTraline 2020-0 Yes 50mg Take 50 mg [facility] nivers 50 mg 1-16 by mouth ity of tablet 00:00: at [place] [address] bedtime. [facility] SERTraline 2020-0 Yes 50mg Take 50 mg [facility] nivers 50 mg 1-16 by mouth ity of tablet 00:00: at [place] [address] bedtime. [facility] SERTraline 2020-0 Yes 50mg Take 50 mg [facility] nivers 50 mg 1-16 by mouth ity of tablet 00:00: at [place] [address] bedtime. [facility] SERTraline 2020-0 Yes 50mg Take 50 mg [facility] nivers 50 mg 1-16 by mouth ity of tablet 00:00: at [place] [address] bedtime. [facility] SERTraline 2020-0 Yes 50mg Take 50 mg [facility] nivers 50 mg 1-16 by mouth ity of tablet 00:00: at [place] [address] bedtime. [facility] SERTraline 2020-0 Yes 50mg Take 50 mg [facility] nivers 50 mg 1-16 by mouth ity of tablet 00:00: at [place] [address] bedtime. [facility] SERTraline 2020-0 Yes 50mg Take 50 mg [facility] nivers 50 mg 1-16 by mouth ity of tablet 00:00: at [place] [address] bedtime. [facility] SERTraline 2020-0 Yes 50mg Take 50 mg [facility] nivers 50 mg 1-16 by mouth ity of tablet 00:00: at [place] [address] bedtime. [facility] SERTraline 2020-0 Yes 50mg Take 50 mg [facility] nivers 50 mg 1-16 by mouth ity of tablet 00:00: at [place] [address] bedtime. [facility] SERTraline 2020-0 Yes 50mg Take 50 mg U nivers 50 mg 1-16 by mouth ity of tablet 00:00: at [place] [address] bedtime. [facility] methocarbam 2020-0 Yes 750mg Take 750 U nivers ol 750 mg 1-07 mg by ity of tablet 00:00: mouth [place] 00 daily. [facility] venlafaxine 2020-0 Yes 75mg Take 75 mg [facility] XR 75 mg 24 1-07 by mouth ity of hr capsule 00:00: every [place] evening. [facility] methocarbam 2020-0 Yes 750mg Take 750 U nivers ol 750 mg 1-07 mg by ity of tablet 00:00: mouth [place] daily. [facility] venlafaxine 2020-0 Yes 75mg Take 75 mg [facility] XR 75 mg 24 1-07 by mouth ity of hr capsule 00:00: every [place] 00 evening. [facility] methocarbam 2020-0 Yes 750mg Take 750 U nivers ol 750 mg 1-07 mg by ity of tablet 00:00: mouth [place] daily. [facility] venlafaxine 2020-0 Yes 75mg Take 75 mg [facility] XR 75 mg 24 1-07 by mouth ity of hr capsule 00:00: every [place] 00 evening. [facility] methocarbam 2020-0 Yes 750mg Take 750 U nivers ol 750 mg 1-07 mg by ity of tablet 00:00: mouth [place] 00 daily. [facility] venlafaxine 2020-0 Yes 75mg Take 75 mg [facility] XR 75 mg 24 1-07 by mouth ity of hr capsule 00:00: every [place] 00 evening. [facility] methocarbam 2020-0 Yes 750mg Take 750 U nivers ol 750 mg 1-07 mg by ity of tablet 00:00: mouth [place] 00 daily. [facility] venlafaxine 2020-0 Yes 75mg Take 75 mg [facility] XR 75 mg 24 1-07 by mouth ity of hr capsule 00:00: every [place] 00 evening. [facility] methocarbam 2020-0 Yes 750mg Take 750 U nivers ol 750 mg 1-07 mg by ity of tablet 00:00: mouth 00 daily. [facility] venlafaxine 2020-0 Yes 75mg Take 75 mg [facility] XR 75 mg 24 1-07 by mouth ity of hr capsule 00:00: every [place] 00 evening. [facility] methocarbam 2020-0 Yes 750mg Take 750 U nivers ol 750 mg 1-07 mg by ity of tablet 00:00: mouth 00 daily. [facility] venlafaxine 2020-0 Yes 75mg Take 75 mg [facility] XR 75 mg 24 1-07 by mouth ity of hr capsule 00:00: every [place] 00 evening. [facility] methocarbam 2020-0 Yes 750mg Take 750 U nivers ol 750 mg 1-07 mg by ity of tablet 00:00: mouth [place] 00 daily. [facility] venlafaxine 2020-0 Yes 75mg Take 75 mg [facility] XR 75 mg 24 1-07 by mouth ity of hr capsule 00:00: every [place] 00 evening. [facility] methocarbam 2020-0 Yes 750mg Take 750 U nivers ol 750 mg 1-07 mg by ity of tablet 00:00: mouth [place] 00 daily. [facility] venlafaxine 2020-0 Yes 75mg Take 75 mg [facility] XR 75 mg 24 1-07 by mouth ity of hr capsule 00:00: every [place] 00 evening. [facility] methocarbam 2020-0 Yes 750mg Take 750 U nivers ol 750 mg 1-07 mg by ity of tablet 00:00: mouth [place] 00 daily. [facility] venlafaxine 2020-0 Yes 75mg Take 75 mg [facility] XR 75 mg 24 1-07 by mouth ity of hr capsule 00:00: every [place] 00 evening. [facility] methocarbam 2020-0 Yes 750mg Take 750 U nivers ol 750 mg 1-07 mg by ity of tablet 00:00: mouth [place] 00 daily. [facility] venlafaxine 2020-0 Yes 75mg Take 75 mg [facility] XR 75 mg 24 1-07 by mouth ity of hr capsule 00:00: every [place] 00 evening. [facility] methocarbam 2020-0 Yes [...] mouth ity of hr capsule 00:00: every [place] 00 evening. [facility] methocarbam 2020-0 Yes 750mg Take 750 U nivers ol 750 mg 1-07 mg by ity of tablet 00:00: mouth 00 daily. [facility] venlafaxine 2020-0 Yes 75mg Take 75 mg [facility] XR 75 mg 24 1-07 by mouth ity of hr capsule 00:00: every [place] 00 evening. [facility] methocarbam 2020-0 Yes 750mg Take 750 U nivers ol 750 mg 1-07 mg by ity of tablet 00:00: mouth [place] 00 daily. [facility] venlafaxine 2020-0 Yes 75mg Take 75 mg [facility] XR 75 mg 24 1-07 by mouth ity of hr capsule 00:00: every [place] 00 evening. [facility] methocarbam 2020-0 Yes 750mg Take 750 U nivers ol 750 mg 1-07 mg by ity of tablet 00:00: mouth [place] 00 daily. [facility] venlafaxine 2020-0 Yes 75mg Take 75 mg [facility] XR 75 mg 24 1-07 by mouth ity of hr capsule 00:00: every [place] 00 evening. [facility] methocarbam 2020-0 Yes 750mg Take 750 U nivers ol 750 mg 1-07 mg by ity of tablet 00:00: mouth 00 daily. [facility] venlafaxine 2020-0 Yes 75mg Take 75 mg [facility] XR 75 mg 24 1-07 by mouth ity of hr capsule 00:00: every [place] 00 evening. [facility] methocarbam 2020-0 Yes [...] mouth ity of hr capsule 00:00: every [place] 00 evening. [facility] methocarbam 2020-0 Yes 750mg Take 750 U nivers ol 750 mg 1-07 mg by ity of tablet 00:00: mouth 00 daily. [facility] venlafaxine 2020-0 Yes 75mg Take 75 mg [facility] XR 75 mg 24 1-07 by mouth ity of hr capsule 00:00: every [place] 00 evening. [facility] methocarbam 2020-0 Yes 750mg Take 750 U nivers ol 750 mg 1-07 mg by ity of tablet 00:00: mouth [place] 00 daily. [facility] venlafaxine 2020-0 Yes 75mg Take 75 mg [facility] XR 75 mg 24 1-07 by mouth ity of hr capsule 00:00: every [place] 00 evening. [facility] methocarbam 2020-0 Yes 750mg Take 750 U nivers ol 750 mg 1-07 mg by ity of tablet 00:00: mouth 00 daily. [facility] venlafaxine 2020-0 Yes 75mg Take 75 mg [facility] XR 75 mg 24 1-07 by mouth ity of hr capsule 00:00: every [place] 00 evening. [facility] methocarbam 2020-0 Yes 750mg Take 750 U nivers ol 750 mg 1-07 mg by ity of tablet 00:00: mouth 00 daily. [facility] venlafaxine 2020-0 Yes 75mg Take 75 mg [facility] XR 75 mg 24 1-07 by mouth ity of hr capsule 00:00: every [place] 00 evening. [facility] methocarbam 2020-0 Yes 750mg Take 750 U nivers ol 750 mg 1-07 mg by ity of tablet 00:00: mouth 00 daily. [facility] venlafaxine 2020-0 Yes 75mg Take 75 mg [facility] XR 75 mg 24 1-07 by mouth ity of hr capsule 00:00: every [place] 00 evening. [facility] methocarbam 2020-0 Yes [...] mouth ity of hr capsule 00:00: every [place] 00 evening. [facility] methocarbam 2020-0 Yes 750mg Take 750 U nivers ol 750 mg 1-07 mg by ity of tablet 00:00: mouth 00 daily. [facility] venlafaxine 2020-0 Yes 75mg Take 75 mg [facility] XR 75 mg 24 1-07 by mouth ity of hr capsule 00:00: every [place] 00 evening. [facility] methocarbam 2020-0 Yes 750mg Take 750 U nivers ol 750 mg 1-07 mg by ity of tablet 00:00: mouth [place] 00 daily. [facility] venlafaxine 2020-0 Yes [...] mouth ity of hr capsule 00:00: every [place] 00 evening. [facility] methocarbam 2020-0 Yes 750mg Take 750 U nivers ol 750 mg 1-07 mg by ity of tablet 00:00: mouth 00 daily. [facility] venlafaxine 2020-0 Yes 75mg Take 75 mg [facility] XR 75 mg 24 1-07 by mouth ity of hr capsule 00:00: every [place] 00 evening. [facility] methocarbam 2020-0 Yes 750mg Take 750 U nivers ol 750 mg 1-07 mg by ity of tablet 00:00: mouth [place] 00 daily. [facility] venlafaxine 2020-0 Yes 75mg Take 75 mg [facility] XR 75 mg 24 1-07 by mouth ity of hr capsule 00:00: every [place] 00 evening. [facility] methocarbam 2020-0 Yes 750mg Take 750 U nivers ol 750 mg 1-07 mg by ity of tablet 00:00: mouth [place] 00 daily. [facility] venlafaxine 2020-0 Yes 75mg Take 75 mg [facility] XR 75 mg 24 1-07 by mouth ity of hr capsule 00:00: every [place] 00 evening. [facility] methocarbam 2020-0 Yes 750mg Take 750 U nivers ol 750 mg 1-07 mg by ity of tablet 00:00: mouth [place] 00 daily. [facility] venlafaxine 2020-0 Yes 75mg Take 75 mg [facility] XR 75 mg 24 1-07 by mouth ity of hr capsule 00:00: every [place] 00 evening. [facility] methocarbam 2020-0 Yes 750mg Take 750 U nivers ol 750 mg 1-07 mg by ity of tablet 00:00: mouth [place] 00 daily. [facility] venlafaxine 2020-0 Yes 75mg Take 75 mg [facility] XR 75 mg 24 1-07 by mouth ity of hr capsule 00:00: every [place] 00 evening. [facility] methocarbam 2020-0 Yes 750mg Take 750 U nivers ol 750 mg 1-07 mg by ity of tablet 00:00: mouth [place] 00 daily. [facility] venlafaxine 2020-0 Yes 75mg Take 75 mg [facility] XR 75 mg 24 1-07 by mouth ity of hr capsule 00:00: every [place] 00 evening. [facility] methocarbam 2020-0 Yes [...] mouth ity of hr capsule 00:00: every [place] 00 evening. [facility] methocarbam 2020-0 Yes 750mg Take 750 U nivers ol 750 mg 1-07 mg by ity of tablet 00:00: mouth 00 daily. [facility] venlafaxine 2020-0 Yes 75mg Take 75 mg [facility] XR 75 mg 24 1-07 by mouth ity of hr capsule 00:00: every [place] 00 evening. [facility] methocarbam 2020-0 Yes 750mg Take 750 U nivers ol 750 mg 1-07 mg by ity of tablet 00:00: mouth 00 daily. [facility] venlafaxine 2020-0 Yes 75mg Take 75 mg [facility] XR 75 mg 24 1-07 by mouth ity of hr capsule 00:00: every [place] 00 evening. [facility] methocarbam 2020-0 Yes 750mg Take 750 U nivers ol 750 mg 1-07 mg by ity of tablet 00:00: mouth 00 daily. [facility] venlafaxine 2020-0 Yes 75mg Take 75 mg [facility] XR 75 mg 24 1-07 by mouth ity of hr capsule 00:00: every [place] 00 evening. [facility] methocarbam 2020-0 Yes 750mg Take 750 U nivers ol 750 mg 1-07 mg by ity of tablet 00:00: mouth [place] 00 daily. [facility] venlafaxine 2020-0 Yes 75mg Take 75 mg [facility] XR 75 mg 24 1-07 by mouth ity of hr capsule 00:00: every [place] 00 evening. [facility] methocarbam 2020-0 Yes 750mg Take 750 U nivers ol 750 mg 1-07 mg by ity of tablet 00:00: mouth [place] 00 daily. [facility] venlafaxine 2020-0 Yes 75mg Take 75 mg [facility] XR 75 mg 24 1-07 by mouth ity of hr capsule 00:00: every [place] 00 evening. [facility] methocarbam 2020-0 Yes 750mg Take 750 U nivers ol 750 mg 1-07 mg by ity of tablet 00:00: mouth [place] 00 daily. [facility] venlafaxine 2020-0 Yes 75mg Take 75 mg [facility] XR 75 mg 24 1-07 by mouth ity of hr capsule 00:00: every [place] 00 evening. [facility] methocarbam 2020-0 Yes 750mg Take 750 U nivers ol 750 mg 1-07 mg by ity of tablet 00:00: mouth [place] 00 daily. [facility] venlafaxine 2020-0 Yes 75mg Take 75 mg [facility] XR 75 mg 24 1-07 by mouth ity of hr capsule 00:00: every [place] 00 evening. [facility] methocarbam 2020-0 Yes 750mg Take 750 U nivers ol 750 mg 1-07 mg by ity of tablet 00:00: mouth [place] 00 daily. [facility] venlafaxine 2020-0 Yes 75mg Take 75 mg [facility] XR 75 mg 24 1-07 by mouth ity of hr capsule 00:00: every [place] 00 evening. [facility] methocarbam 2020-0 Yes 750mg Take 750 U nivers ol 750 mg 1-07 mg by ity of tablet 00:00: mouth [place] 00 daily. [facility] venlafaxine 2020-0 Yes 75mg Take 75 mg [facility] XR 75 mg 24 1-07 by mouth ity of hr capsule 00:00: every [place] 00 evening. [facility] methocarbam 2020-0 Yes 750mg Take 750 U nivers ol 750 mg 1-07 mg by ity of tablet 00:00: mouth [place] 00 daily. [facility] venlafaxine 2020-0 Yes 75mg Take 75 mg [facility] XR 75 mg 24 1-07 by mouth ity of hr capsule 00:00: every [place] 00 evening. [facility] methocarbam 2020-0 Yes 750mg Take 750 U nivers ol 750 mg 1-07 mg by ity of tablet 00:00: mouth 00 daily. [facility] venlafaxine 2020-0 Yes 75mg Take 75 mg [facility] XR 75 mg 24 1-07 by mouth ity of hr capsule 00:00: every [place] 00 evening. [facility] methocarbam 2020-0 Yes 750mg Take 750 U nivers ol 750 mg 1-07 mg by ity of tablet 00:00: mouth 00 daily. [facility] venlafaxine 2020-0 Yes 75mg Take 75 mg [facility] XR 75 mg 24 1-07 by mouth ity of hr capsule 00:00: every [place] 00 evening. [facility] methocarbam 2020-0 Yes 750mg Take 750 U nivers ol 750 mg 1-07 mg by ity of tablet 00:00: mouth [place] 00 daily. [facility] venlafaxine 2020-0 Yes 75mg Take 75 mg [facility] XR 75 mg 24 1-07 by mouth ity of hr capsule 00:00: every [place] 00 evening. [facility] methocarbam 2020-0 Yes 750mg Take 750 U nivers ol 750 mg 1-07 mg by ity of tablet 00:00: mouth [place] 00 daily. [facility] venlafaxine 2020-0 Yes 75mg Take 75 mg [facility] XR 75 mg 24 1-07 by mouth ity of hr capsule 00:00: every [place] 00 evening. [facility] methocarbam 2020-0 Yes 750mg Take 750 U nivers ol 750 mg 1-07 mg by ity of tablet 00:00: mouth [place] 00 daily. [facility] venlafaxine 2020-0 Yes 75mg Take 75 mg [facility] XR 75 mg 24 1-07 by mouth ity of hr capsule 00:00: every [place] 00 evening. [facility] methocarbam 2020-0 Yes 750mg Take 750 U nivers ol 750 mg 1-07 mg by ity of tablet 00:00: mouth [place] 00 daily. [facility] venlafaxine 2020-0 Yes 75mg Take 75 mg [facility] XR 75 mg 24 1-07 by mouth ity of hr capsule 00:00: every [place] 00 evening. Medical Branch methocarbam 2020-0 Yes 750mg Take 750 U nivers ol 750 mg 1-07 mg by ity of tablet 00:00: mouth [place] 00 daily. Medical Branch venlafaxine 2020-0 Yes 75mg Take 75 mg [facility] XR 75 mg 24 1-07 by mouth ity of hr capsule 00:00: every evening. [facility] Branch atorvasta 2018-10 Yes 20mg Take 20 mg [facility] n 20 mg 2-27 by mouth ity of tablet 00:00: daily. [facility] atorvasta 2018-10 Yes 20mg Take 20 mg [facility] n 20 mg 2-27 by mouth ity of tablet 00:00: daily. [facility] Yes 20mg Take 20 mg [facility] n 20 mg 2-27 by mouth ity of tablet 00:00: daily. [facility] atorvasta 2018-10 Yes 20mg Take 20 mg [facility] n 20 mg 2-27 by mouth ity of tablet 00:00: daily. [facility] atorvasta 2018-10 Yes 20mg Take 20 mg [facility] n 20 mg 2-27 by mouth ity of tablet 00:00: daily. [facility] atorvasta 2018-10 Yes 20mg Take 20 mg [facility] n 20 mg 2-27 by mouth ity of tablet 00:00: daily. [facility] atorvasta 2018-10 Yes 20mg Take 20 mg [facility] n 20 mg 2-27 by mouth ity of tablet 00:00: daily. [facility] atorvasta 2018-10 Yes 20mg Take 20 mg [facility] n 20 mg 2-27 by mouth ity of tablet 00:00: daily. [facility] atorvasta 2018-10 Yes 20mg Take 20 mg [facility] n 20 mg 2-27 by mouth ity of tablet 00:00: daily. [facility] atorvasta 2018-10 Yes 20mg Take 20 mg [facility] n 20 mg 2-27 by mouth ity of tablet 00:00: daily. [facility] atorvasta 2018-10 Yes 20mg Take 20 mg [facility] n 20 mg 2-27 by mouth ity of tablet 00:00: daily. [facility] atorvasta 2018-10 Yes 20mg Take 20 mg [facility] n 20 mg 2-27 by mouth ity of tablet 00:00: daily. [facility] atorvasta 2018-10 Yes 20mg Take 20 mg [facility] n 20 mg 2-27 by mouth ity of tablet 00:00: daily. [facility] atorvasta 2018-10 Yes 20mg Take 20 mg [facility] n 20 mg 2-27 by mouth ity of tablet 00:00: daily. [facility] atorvasta 2018-10 Yes 20mg Take 20 mg [facility] n 20 mg 2-27 by mouth ity of tablet 00:00: daily. [facility] Yes 20mg Take 20 mg [facility] n 20 mg 2-27 by mouth ity of tablet 00:00: daily. [facility] Yes 20mg Take 20 mg [facility] n 20 mg 2-27 by mouth ity of tablet 00:00: daily. [facility] atorvasta 2018-10 Yes 20mg Take 20 mg [facility] n 20 mg 2-27 by mouth ity of tablet 00:00: daily. [facility] atorvasta 2018-10 Yes 20mg Take 20 mg [facility] n 20 mg 2-27 by mouth ity of tablet 00:00: daily. [facility] Yes 20mg Take 20 mg [facility] n 20 mg 2-27 by mouth ity of tablet 00:00: daily. [facility] Yes 20mg Take 20 mg [facility] n 20 mg 2-27 by mouth ity of tablet 00:00: daily. [facility] atorvasta 2018-10 Yes 20mg Take 20 mg [facility] n 20 mg 2-27 by mouth ity of tablet 00:00: daily. [facility] atorvasta 2018-10 Yes 20mg Take 20 mg [facility] n 20 mg 2-27 by mouth ity of tablet 00:00: daily. [facility] atorvasta 2018-10 Yes 20mg Take 20 mg [facility] n 20 mg 2-27 by mouth ity of tablet 00:00: daily. [facility] atorvasta 2018-10 Yes 20mg Take 20 mg [facility] n 20 mg 2-27 by mouth ity of tablet 00:00: daily. [facility] atorvasta 2018-10 Yes 20mg Take 20 mg [facility] n 20 mg 2-27 by mouth ity of tablet 00:00: daily. [facility] atorvasta 2018-10 Yes 20mg Take 20 mg [facility] n 20 mg 2-27 by mouth ity of tablet 00:00: daily. [facility] atorvasta 2018-10 Yes 20mg Take 20 mg [facility] n 20 mg 2-27 by mouth ity of tablet 00:00: daily. [facility] atorvasta 2018-10 Yes 20mg Take 20 mg [facility] n 20 mg 2-27 by mouth ity of tablet 00:00: daily. [facility] atorvasta 2018-10 Yes 20mg Take 20 mg [facility] n 20 mg 2-27 by mouth ity of tablet 00:00: daily. [facility] atorvasta 2018-10 Yes 20mg Take 20 mg [facility] n 20 mg 2-27 by mouth ity of tablet 00:00: daily. [facility] atorvasta 2018-10 Yes 20mg Take 20 mg [facility] n 20 mg 2-27 by mouth ity of tablet 00:00: daily. [facility] atorvasta 2018-10 Yes 20mg Take 20 mg [facility] n 20 mg 2-27 by mouth ity of tablet 00:00: daily. [facility] atorvasta 2018-10 Yes 20mg Take 20 mg [facility] n 20 mg 2-27 by mouth ity of tablet 00:00: daily. [facility] atorvasta 2018-10 Yes 20mg Take 20 mg [facility] n 20 mg 2-27 by mouth ity of tablet 00:00: daily. [facility] atorvasta 2018-10 Yes 20mg Take 20 mg [facility] n 20 mg 2-27 by mouth ity of tablet 00:00: daily. [facility] atorvasta 2018-10 Yes 20mg Take 20 mg [facility] n 20 mg 2-27 by mouth ity of tablet 00:00: daily. [facility] atorvasta 2018-10 Yes 20mg Take 20 mg [facility] n 20 mg 2-27 by mouth ity of tablet 00:00: daily. [facility] atorvasta 2018-10 Yes 20mg Take 20 mg [facility] n 20 mg 2-27 by mouth ity of tablet 00:00: daily. [facility] atorvasta 2018-10 Yes 20mg Take 20 mg [facility] n 20 mg 2-27 by mouth ity of tablet 00:00: daily. [facility] atorvasta 2018-10 Yes 20mg Take 20 mg [facility] n 20 mg 2-27 by mouth ity of tablet 00:00: daily. [facility] atorvasta 2018-10 Yes 20mg Take 20 mg [facility] n 20 mg 2-27 by mouth ity of tablet 00:00: daily. [facility] atorvasta 2018-10 Yes 20mg Take 20 mg [facility] n 20 mg 2-27 by mouth ity of tablet 00:00: daily. [facility] atorvasta 2018-10 Yes 20mg Take 20 mg [facility] n 20 mg 2-27 by mouth ity of tablet 00:00: daily. [facility] atorvasta 2018-10 Yes 20mg Take 20 mg [facility] n 20 mg 2-27 by mouth ity of tablet 00:00: daily. [facility] atorvasta 2018-10 Yes 20mg Take 20 mg [facility] n 20 mg 2-27 by mouth ity of tablet 00:00: daily. [facility] atorvasta 2018-10 Yes 20mg Take 20 mg [facility] n 20 mg 2-27 by mouth ity of tablet 00:00: daily. [facility] atorvasta 2018-10 Yes 20mg Take 20 mg [facility] n 20 mg 2-27 by mouth ity of tablet 00:00: daily. [facility] atorvasta 2018-10 Yes 20mg Take 20 mg [facility] n 20 mg 2-27 by mouth ity of tablet 00:00: daily. [facility] atorvasta 2018-10 Yes 20mg Take 20 mg [facility] n 20 mg 2-27 by mouth ity of tablet 00:00: daily. [facility] atorvasta 2018-10 Yes 20mg Take 20 mg [facility] n 20 mg 2-27 by mouth ity of tablet 00:00: daily. [facility] atorvasta 2018-10 Yes 20mg Take 20 mg [facility] n 20 mg 2-27 by mouth ity of tablet 00:00: daily. [facility] atorvasta 2018-10 Yes 20mg Take 20 mg [facility] n 20 mg 2-27 by mouth ity of tablet 00:00: daily. [facility] atorvasta 2018-10 Yes 20mg Take 20 mg [facility] n 20 mg 2-27 by mouth ity of tablet 00:00: daily. [facility] atorvasta 2018-10 Yes 20mg Take 20 mg [facility] n 20 mg 2-27 by mouth ity of tablet 00:00: daily. [facility] atorvasta 2018-10 Yes 20mg Take 20 mg [facility] n 20 mg 2-27 by mouth ity of tablet 00:00: daily. [facility] atorvastati 2018-10 Yes 20mg Take 20 mg [facility] n 20 mg 2-27 by mouth ity of tablet 00:00: daily. [facility] atorvasta 2018-10 Yes 20mg Take 20 mg [facility] n 20 mg 2-27 by mouth ity of tablet 00:00: daily. [facility] atorvasta 2018-10 Yes 20mg Take 20 mg [facility] n 20 mg 2-27 by mouth ity of tablet 00:00: daily. [facility] atorvasta 2018-10 Yes 20mg Take 20 mg [facility] n 20 mg 2-27 by mouth ity of tablet 00:00: daily. [facility] atorvasta 2018-10 Yes 20mg Take 20 mg [facility] n 20 mg 2-27 by mouth ity of tablet 00:00: daily. [facility] atorvasta 2018-10 Yes 20mg Take 20 mg [facility] n 20 mg 2-27 by mouth ity of tablet 00:00: daily. [facility] atorvasta 2018-10 Yes 20mg Take 20 mg [facility] n 20 mg 2-27 by mouth ity of tablet 00:00: daily. [facility] atorvasta 2018-10 Yes 20mg Take 20 mg [facility] n 20 mg 2-27 by mouth ity of tablet 00:00: daily. [address] levothyroxi 2018-10 Yes 100ug Take 100 U nivers ne 100 mcg 2-23 mcg by ity of tablet 00:00: mouth [place] every Medical morning. Branch levothyroxi 2018-10 Yes 100ug Take 100 U nivers ne 100 mcg 2-23 mcg by ity of tablet 00:00: mouth [place] every Medical morning. [place] levothyroxi 2018-10 Yes 100ug Take 100 U nivers ne 100 mcg 2-23 mcg by ity of tablet 00:00: mouth [place] every Medical morning. [place] levothyroxi 2018-10 Yes 100ug Take 100 U nivers ne 100 mcg 2-23 mcg by ity of tablet 00:00: mouth [place] every Medical morning. [place] levothyroxi 2018-10 Yes 100ug Take 100 U nivers ne 100 mcg 2-23 mcg by ity of tablet 00:00: mouth [place] every Medical morning. Branch levothyroxi 2018-10 Yes [...] [place] 00 daily. Medical Branch DICLOFENAC 2019- 2019- No [id number] 75mg TAKE 1 [facility] 75 mg EC 06-13 05 TABLET BY ity o f tablet 00:00: 04:59 MOUTH 2 [place] 00 :00 (TWO) Medical TIMES Branch DAILY WITH MEALS FOR 30 DAYS. amitriptyli Yes 75mg Take 75 mg [facility] ne 75 mg 7-14 by mouth ity of tablet 21:41: at [place] [address] bedtime. Medical Branch amitriptyli 2019-0 Yes 75mg Take 75 mg [facility] ne 75 mg 7-14 by mouth ity of tablet 21:41: at [place] [address] bedtime. Medical Branch amitriptyli 2019-0 Yes 75mg Take 75 mg [facility] ne 75 mg 7-14 by mouth ity of tablet 21:41: at [place] [address] bedtime. Medical Branch amitriptyli 2019-0 Yes 75mg Take 75 mg [facility] ne 75 mg 7-14 by mouth ity of tablet 21:41: at [place] [address] bedtime. Medical Branch amitriptyli 2019-0 Yes 75mg Take 75 mg [facility] ne 75 mg 7-14 by mouth ity of tablet 21:41: at [place] [address] bedtime. Medical Branch amitriptyli 2018-0 Yes 75mg Take 75 mg [facility] ne 75 mg 7-14 by mouth ity of tablet 21:41: at [place] [address] bedtime. Medical Branch amitriptyli 2018-0 Yes 75mg Take 75 mg [facility] ne 75 mg 7-14 by mouth ity of tablet 21:41: at [place] [address] bedtime. Medical Branch amitriptyli 2018- Yes 75mg Take 75 mg [facility] ne 75 mg 7-14 by mouth ity of tablet 21:41: at [place] [address] bedtime. Medical Branch amitriptyli 2018-0 Yes 75mg Take 75 mg [facility] ne 75 mg 7-14 by mouth ity of tablet 21:41: at [place] [address] bedtime. Medical Branch amitriptyli 2019-0 Yes 75mg Take 75 mg [facility] ne 75 mg 7-14 by mouth ity of tablet 21:41: at [place] [address] bedtime. Medical Branch amitriptyli 2018-0 Yes 75mg Take 75 mg [facility] ne 75 mg 7-14 by mouth ity of tablet 21:41: at [place] [address] bedtime. Medical Branch amitriptyli 2019-0 Yes 75mg Take 75 mg [facility] ne 75 mg 7-14 by mouth ity of tablet 21:41: at [place] [address] bedtime. Medical Branch atorvastati 2018-0 Yes 80mg Take 80 mg [facility] n 80 mg 7-14 by mouth. ity of tablet 21:39: [place] 29 Medical Branch Levothyroxi 2018-0 Yes 100ug Take 100 U nivers ne 100 mcg 7-14 mcg by ity of capsule 21:39: mouth. [place] [address] Medical Branch QUEtiapine Yes 200mg Take 200 [place] 200 mg 7-14 mg by ity of tablet 21:39: mouth at [place] [address] bedtime. Medical Branch metFORMIN Yes 500mg Take 500 Uni vers 500 mg 7-14 mg by ity of tablet 21:39: mouth 2 [place] [address] (two) Medical times Branch daily with meals. rOPINIRole 2019 Yes 2mg Take 2 mg [place] 2 mg tablet 7-14 by mouth ity of 21:39: at [place] [address] bedtime. Medical Branch venlafaxine Yes 150mg Take 150 U nivers XR 150 mg 7-14 mg by ity of 24 hr 21:39: mouth [place] capsule 29 daily with Medica l breakfast. Branch venlafaxine Yes 37.5mg Take 37.5 [facility] XR 37.5 mg 7-14 mg by ity of 24 hr 21:39: mouth [place] capsule 29 daily with Medica l breakfast. Branch clonazePAM Yes .5mg Take 0.5 Uni vers 0.5 mg 7-14 mg by ity of tablet 21:39: mouth at [place] [address] bedtime. Medical Branch pantoprazol Yes 40mg Take 40 mg [facility] e 40 mg EC 7-14 by mouth ity o f tablet 21:39: daily. [place] [address] Medical Branch HYDROcodone Yes 1{tbl} Take 1 Un [place] -acetaminop 7-14 tablet by ity of hen (NORCO) 21:39: mouth [place] 10-325 mg 29 every 6 Medical tablet (six) Branch hours as needed. verapamil Yes 120mg Take 120 Uni vers (VERELAN 7-14 mg by ity of PM) 120 mg 21:39: mouth. [place] 24 hr Medical capsule Branch atorvastati Yes 80mg Take 80 mg [facility] n 80 mg 7-14 by mouth. ity of tablet 21:39: [place] [address] Medical Branch Levothyroxi Yes 100ug Take 100 U nivers ne 100 mcg 7-14 mcg by ity of capsule 21:39: mouth. [place] [address] Medical Branch QUEtiapine Yes 200mg Take 200 Un [place] 200 mg 7-14 mg by ity of tablet 21:39: mouth at [place] [address] bedtime. Medical Branch metFORMIN Yes 500mg Take 500 Uni vers 500 mg 7-14 mg by ity of tablet 21:39: mouth 2 [place] [address] (two) Medical times Branch daily with meals. rOPINIRole Yes 2mg Take 2 mg [place] 2 mg tablet 7-14 by mouth ity of 21:39: at [place] [address] bedtime. Medical Branch venlafaxine Yes 150mg Take [...] by ity of tablet 21:39: mouth at [place] [address] bedtime. Medical Branch pantoprazol Yes 40mg Take 40 mg [facility] e 40 mg EC 7-14 by mouth ity o f tablet 21:39: daily. [place] [address] Medical Branch HYDROcodone Yes 1{tbl} Take 1 Un [place] -acetaminop 7-14 tablet by ity of hen (NORCO) 21:39: mouth [place] 10-325 mg 29 every 6 Medical tablet (six) Branch hours as needed. verapamil Yes 120mg Take 120 Uni vers (VERELAN 7-14 mg by ity of PM) 120 mg 21:39: mouth. [place] 24 hr Medical capsule Branch atorvastati Yes 80mg Take 80 mg [facility] n 80 mg 7-14 by mouth. ity of tablet 21:39: [place] [address] Medical Branch Levothyroxi Yes 100ug Take 100 U nivers ne 100 mcg 7-14 mcg by ity of capsule 21:39: mouth. [place] [address] Medical Branch QUEtiapine Yes 200mg Take 200 Un [place] 200 mg 7-14 mg by ity of tablet 21:39: mouth at [place] [address] bedtime. Medical Branch metFORMIN Yes 500mg Take 500 Uni vers 500 mg 7-14 mg by ity of tablet 21:39: mouth 2 [place] [address] (two) Medical times Branch daily with meals. rOPINIRole Yes 2mg Take 2 mg [place] 2 mg tablet 7-14 by mouth ity of 21:39: at [place] [address] bedtime. Medical Branch venlafaxine Yes 150mg Take [...] by ity of tablet 21:39: mouth at [place] [address] bedtime. Medical Branch pantoprazol Yes 40mg Take 40 mg [facility] e 40 mg EC 7-14 by mouth ity o f tablet 21:39: daily. [place] [address] Medical Branch HYDROcodone Yes 1{tbl} Take 1 Un [place] -acetaminop 7-14 tablet by ity of hen (NORCO) 21:39: mouth [place] 10-325 mg 29 every 6 Medical tablet (six) Branch hours as needed. verapamil Yes 120mg Take 120 Uni vers (VERELAN 7-14 mg by ity of PM) 120 mg 21:39: mouth. [place] 24 hr Medical capsule Branch atorvastati Yes 80mg Take 80 mg [facility] n 80 mg 7-14 by mouth. ity of tablet 21:39: [place] [address] Medical Branch Levothyroxi Yes 100ug Take 100 U nivers ne 100 mcg 7-14 mcg by ity of capsule 21:39: mouth. [place] [address] Medical Branch QUEtiapine Yes 200mg Take 200 Un [place] 200 mg 7-14 mg by ity of tablet 21:39: mouth at [place] [address] bedtime. Medical Branch metFORMIN Yes 500mg Take 500 Uni vers 500 mg 7-14 mg by ity of tablet 21:39: mouth 2 [place] [address] (two) Medical times Branch daily with meals. rOPINIRole Yes 2mg Take 2 mg [place] 2 mg tablet 7-14 by mouth ity of 21:39: at [place] [address] bedtime. Medical Branch venlafaxine Yes 150mg Take [...] by ity of tablet 21:39: mouth at [place] [address] bedtime. Medical Branch pantoprazol Yes 40mg Take 40 mg [facility] e 40 mg EC 7-14 by mouth ity o f tablet 21:39: daily. [place] [address] Medical Branch HYDROcodone Yes 1{tbl} Take 1 Un [place] -acetaminop 7-14 tablet by ity of hen (NORCO) 21:39: mouth [place] 10-325 mg 29 every 6 Medical tablet (six) Branch hours as needed. verapamil Yes 120mg Take 120 Uni vers (VERELAN 7-14 mg by ity of PM) 120 mg 21:39: mouth. [place] 24 hr Medical capsule Branch atorvastati Yes 80mg Take 80 mg [facility] n 80 mg 7-14 by mouth. ity of tablet 21:39: [place] [address] Medical Branch Levothyroxi Yes 100ug Take 100 U nivers ne 100 mcg 7-14 mcg by ity of capsule 21:39: mouth. [place] [address] Medical Branch QUEtiapine Yes 200mg Take 200 [place] 200 mg 7-14 mg by ity of tablet 21:39: mouth at [place] [address] bedtime. Medical Branch metFORMIN Yes 500mg Take 500 Uni vers 500 mg 7-14 mg by ity of tablet 21:39: mouth 2 [place] [address] (two) Medical times Branch daily with meals. rOPINIRole Yes 2mg Take 2 mg Un [place] 2 mg tablet 7-14 by mouth ity of 21:39: at [place] [address] bedtime. Medical Branch venlafaxine Yes 150mg Take [...] by ity of tablet 21:39: mouth at [place] [address] bedtime. Medical Branch pantoprazol Yes 40mg Take 40 mg [facility] e 40 mg EC 7-14 by mouth ity o f tablet 21:39: daily. [place] [address] Medical Branch HYDROcodone Yes 1{tbl} Take 1 Un [place] -acetaminop 7-14 tablet by ity of hen (NORCO) 21:39: mouth [place] 10-325 mg 29 every 6 Medical tablet (six) Branch hours as needed. verapamil Yes 120mg Take 120 Uni vers (VERELAN 7-14 mg by ity of PM) 120 mg 21:39: mouth. [place] 24 hr Medical capsule Branch atorvastati Yes 80mg Take 80 mg [facility] n 80 mg 7-14 by mouth. ity of tablet 21:39: [place] [address] Medical Branch Levothyroxi Yes 100ug Take 100 U nivers ne 100 mcg 7-14 mcg by ity of capsule 21:39: mouth. [place] [address] Medical Branch QUEtiapine Yes 200mg Take 200 [place] 200 mg 7-14 mg by ity of tablet 21:39: mouth at [place] [address] bedtime. Medical Branch metFORMIN Yes 500mg Take 500 Uni vers 500 mg 7-14 mg by ity of tablet 21:39: mouth 2 [place] [address] (two) Medical times Branch daily with meals. rOPINIRole Yes 2mg Take 2 mg [place] 2 mg tablet 7-14 by mouth ity of 21:39: at [place] [address] bedtime. Medical Branch venlafaxine Yes 150mg Take [...] by ity of tablet 21:39: mouth at [place] [address] bedtime. Medical Branch HYDROcodone Yes 1{tbl} Take 1 [place] -acetaminop 7-14 tablet by ity of hen (NORCO) 21:39: mouth [place] 10-325 mg 29 every 6 Medical tablet (six) Branch hours as needed. verapamil Yes 120mg Take 120 Uni vers (VERELAN 7-14 mg by ity of PM) 120 mg 21:39: mouth. [place] 24 hr Medical capsule Branch atorvastati Yes 80mg Take 80 mg [facility] n 80 mg 7-14 by mouth. ity of tablet 21:39: [place] [address] Medical Branch Levothyroxi Yes 100ug Take 100 U nivers ne 100 mcg 7-14 mcg by ity of capsule 21:39: mouth. [place] [address] Medical Branch QUEtiapine Yes 200mg Take 200 [place] 200 mg 7-14 mg by ity of tablet 21:39: mouth at [place] [address] bedtime. Medical Branch metFORMIN Yes 500mg Take 500 Uni vers 500 mg 7-14 mg by ity of tablet 21:39: mouth 2 [place] [address] (two) Medical times Branch daily with meals. rOPINIRole Yes 2mg Take 2 mg [place] 2 mg tablet 7-14 by mouth ity of 21:39: at [place] [address] bedtime. Medical Branch venlafaxine Yes 150mg Take [...] by ity of tablet 21:39: mouth at [place] [address] bedtime. Medical Branch pantoprazol Yes 40mg Take 40 mg [facility] e 40 mg EC 7-14 by mouth ity o f tablet 21:39: daily. [place] [address] Medical Branch HYDROcodone Yes 1{tbl} Take 1 [place] -acetaminop 7-14 tablet by ity of hen (NORCO) 21:39: mouth [place] 10-325 mg 29 every 6 Medical tablet (six) Branch hours as needed. verapamil Yes 120mg Take 120 Uni vers (VERELAN 7-14 mg by ity of PM) 120 mg 21:39: mouth. [place] 24 hr Medical capsule Branch atorvastati Yes 80mg Take 80 mg [facility] n 80 mg 7-14 by mouth. ity of tablet 21:39: [place] [address] Medical Branch Levothyroxi Yes 100ug Take 100 U nivers ne 100 mcg 7-14 mcg by ity of capsule 21:39: mouth. [place] [address] Medical Branch QUEtiapine Yes 200mg Take 200 [place] 200 mg 7-14 mg by ity of tablet 21:39: mouth at [place] [address] bedtime. Medical Branch metFORMIN Yes 500mg Take 500 Uni vers 500 mg 7-14 mg by ity of tablet 21:39: mouth 2 [place] [address] (two) Medical times Branch daily with meals. rOPINIRole Yes 2mg Take 2 mg [place] 2 mg tablet 7-14 by mouth ity of 21:39: at [place] [address] bedtime. Medical Branch venlafaxine Yes 150mg Take [...] by ity of tablet 21:39: mouth at [place] [address] bedtime. Medical Branch pantoprazol Yes 40mg Take 40 mg [facility] e 40 mg EC 7-14 by mouth ity o f tablet 21:39: daily. [place] [address] Medical Branch HYDROcodone Yes 1{tbl} Take 1 [place] -acetaminop 7-14 tablet by ity of hen (NORCO) 21:39: mouth [place] 10-325 mg 29 every 6 Medical tablet (six) Branch hours as needed. verapamil Yes 120mg Take 120 Uni vers (VERELAN 7-14 mg by ity of PM) 120 mg 21:39: mouth. [place] 24 hr 29 Medical capsule Branch atorvastati Yes 80mg Take 80 mg [facility] n 80 mg 7-14 by mouth. ity of tablet 21:39: [place] [address] Medical Branch Levothyroxi Yes 100ug Take 100 U nivers ne 100 mcg 7-14 mcg by ity of capsule 21:39: mouth. [place] [address] Medical Branch QUEtiapine Yes 200mg Take 200 [place] 200 mg 7-14 mg by ity of tablet 21:39: mouth at [place] [address] bedtime. Medical Branch metFORMIN Yes 500mg Take 500 Uni vers 500 mg 7-14 mg by ity of tablet 21:39: mouth 2 [place] [address] (two) Medical times Branch daily with meals. rOPINIRole Yes 2mg Take 2 mg [place] 2 mg tablet 7-14 by mouth ity of 21:39: at [place] [address] bedtime. Medical Branch venlafaxine Yes 150mg Take [...] by ity of tablet 21:39: mouth at [place] [address] bedtime. Medical Branch pantoprazol Yes 40mg Take 40 mg [facility] e 40 mg EC 7-14 by mouth ity o f tablet 21:39: daily. [place] [address] Medical Branch HYDROcodone Yes 1{tbl} Take 1 [place] -acetaminop 7-14 tablet by ity of hen (NORCO) 21:39: mouth [place] 10-325 mg 29 every 6 Medical tablet (six) Branch hours as needed. verapamil Yes 120mg Take 120 Uni vers (VERELAN 7-14 mg by ity of PM) 120 mg 21:39: mouth. [place] 24 hr Medical capsule Branch atorvastati 2019-0 Yes 80mg Take 80 mg [facility] n 80 mg 7-14 by mouth. ity of tablet 21:39: [place] [address] Medical Branch Levothyroxi Yes 100ug Take 100 U nivers ne 100 mcg 7-14 mcg by ity of capsule 21:39: mouth. [place] [address] Medical Branch QUEtiapine Yes 200mg Take 200 [place] 200 mg 7-14 mg by ity of tablet 21:39: mouth at [place] [address] bedtime. Medical Branch metFORMIN Yes 500mg Take 500 Uni vers 500 mg 7-14 mg by ity of tablet 21:39: mouth 2 [place] [address] (two) Medical times Branch daily with meals. rOPINIRole Yes 2mg Take 2 mg [place] 2 mg tablet 7-14 by mouth ity of 21:39: at [place] [address] bedtime. Medical Branch venlafaxine Yes 150mg Take 150 U nivers XR 150 mg 7-14 mg by ity of 24 hr 21:39: mouth [place] capsule 29 daily with Medica l breakfast. Branch venlafaxine Yes 37.5mg Take 37.5 [facility] XR 37.5 mg 7-14 mg by ity of 24 hr 21:39: mouth [place] capsule 29 daily with Medica l breakfast. Branch clonazePAM Yes .5mg Take 0.5 Uni vers 0.5 mg 7-14 mg by ity of tablet 21:39: mouth at [place] [address] bedtime. Medical Branch pantoprazol Yes 40mg Take 40 mg [facility] e 40 mg EC 7-14 by mouth ity o f tablet 21:39: daily. [place] [address] Medical Branch HYDROcodone Yes 1{tbl} Take 1 [place] -acetaminop 7-14 tablet by ity of hen (NORCO) 21:39: mouth [place] 10-325 mg 29 every 6 Medical tablet (six) Branch hours as needed. verapamil Yes 120mg Take 120 Uni vers (VERELAN 7-14 mg by ity of PM) 120 mg 21:39: mouth. [place] 24 hr Medical capsule Branch atorvastati Yes 80mg Take 80 mg [facility] n 80 mg 7-14 by mouth. ity of tablet 21:39: [place] [address] Medical Branch Levothyroxi Yes 100ug Take 100 U nivers ne 100 mcg 7-14 mcg by ity of capsule 21:39: mouth. [place] [address] Medical Branch QUEtiapine Yes 200mg Take 200 [place] 200 mg 7-14 mg by ity of tablet 21:39: mouth at [place] [address] bedtime. Medical Branch metFORMIN Yes 500mg Take 500 Uni vers 500 mg 7-14 mg by ity of tablet 21:39: mouth 2 [place] [address] (two) Medical times Branch daily with meals. rOPINIRole Yes 2mg Take 2 mg [place] 2 mg tablet 7-14 by mouth ity of 21:39: at [place] [address] bedtime. Medical Branch venlafaxine Yes 150mg Take 150 U nivers XR 150 mg 7-14 mg by ity of 24 hr 21:39: mouth [place] capsule 29 daily with Medica l breakfast. Branch venlafaxine Yes 37.5mg Take 37.5 [facility] XR 37.5 mg 7-14 mg by ity of 24 hr 21:39: mouth [place] capsule 29 daily with Medica l breakfast. Branch clonazePAM Yes .5mg Take 0.5 Uni vers 0.5 mg 7-14 mg by ity of tablet 21:39: mouth at [place] [address] bedtime. Medical Branch pantoprazol Yes 40mg Take 40 mg Univers e 40 mg EC 7-14 by mouth ity o f tablet 21:39: daily. [place] [address] Medical Branch HYDROcodone Yes 1{tbl} Take 1 [facility] [place] -acetaminop 7-14 tablet by ity of hen (NORCO) 21:39: mouth [place] 10-325 mg 29 every 6 Medical tablet (six) Branch hours as needed. verapamil Yes 120mg Take 120 Uni vers (VERELAN 7-14 mg by ity of PM) 120 mg 21:39: mouth. [place] 24 hr Medical capsule Branch atorvastati Yes 80mg Take 80 mg Univers n 80 mg 7-14 by mouth. ity of tablet 21:39: [place] [address] Medical Branch Levothyroxi Yes 100ug Take 100 U nivers ne 100 mcg 7-14 mcg by ity of capsule 21:39: mouth. [place] [address] Medical Branch QUEtiapine Yes 200mg Take 200 [facility] [place] 200 mg 7-14 mg by ity of tablet 21:39: mouth at [place] [address] bedtime. Medical Branch metFORMIN Yes 500mg Take 500 Uni vers 500 mg 7-14 mg by ity of tablet 21:39: mouth 2 [place] [address] (two) Medical times Branch daily with meals. rOPINIRole Yes 2mg Take 2 mg [facility] [place] 2 mg tablet 7-14 by mouth ity of 21:39: at [place] [address] bedtime. Medical Branch venlafaxine Yes 150mg Take [...] by ity of tablet 21:39: mouth at [place] [address] bedtime. Medical Branch pantoprazol Yes 40mg Take 40 mg [facility] e 40 mg EC 7-14 by mouth ity o f tablet 21:39: daily. [place] [address] Medical Branch HYDROcodone Yes 1{tbl} Take 1 [facility] [place] -acetaminop 7-14 tablet by ity of hen (NORCO) 21:39: mouth [place] 10-325 mg 29 every 6 Medical tablet (six) Branch hours as needed. verapamil Yes 120mg Take 120 Uni vers (VERELAN 7-14 mg by ity of PM) 120 mg 21:39: mouth. [place] 24 hr Medical capsule Branch atorvastati Yes 80mg Take 80 mg [facility] n 80 mg 7-14 by mouth. ity of tablet 21:39: [place] [address] Medical Branch Levothyroxi Yes 100ug Take 100 U nivers ne 100 mcg 7-14 mcg by ity of capsule 21:39: mouth. [place] [address] Medical Branch QUEtiapine Yes 200mg Take 200 [facility] [place] 200 mg 7-14 mg by ity of tablet 21:39: mouth at [place] [address] bedtime. Medical Branch metFORMIN Yes 500mg Take 500 Uni vers 500 mg 7-14 mg by ity of tablet 21:39: mouth 2 [place] [address] (two) Medical times Branch daily with meals. rOPINIRole Yes 2mg Take 2 mg [facility] [place] 2 mg tablet 7-14 by mouth ity of 21:39: at [place] 29 bedtime. Medical Branch venlafaxine Yes 150mg [...] by ity of tablet 21:39: mouth at [place] 29 bedtime. Medical Branch pantoprazol Yes 40mg Take 40 mg [facility] e 40 mg EC 7-14 by mouth ity o f tablet 21:39: daily. [place] 29 Medical Branch HYDROcodone Yes 1{tbl} Take 1 [facility] [place] -acetaminop 7-14 tablet by ity of hen (NORCO) 21:39: mouth [place] 10-325 mg 29 every 6 Medical tablet (six) Branch hours as needed. verapamil Yes 120mg Take 120 Uni vers (VERELAN 7-14 mg by ity of PM) 120 mg 21:39: mouth. [place] 24 hr 29 Medical capsule Branch traZODONE 2019- No 100mg Take 100 [facility] [place] 100 mg 7-14 07-14 mg by ity of tablet 21:39: 00:00 mouth at [place] 01 :00 bedtime. Medical Branch acetaminoph 2019- No 1{tbl} Take 1 U nivers en-codeine 7-14 07-14 tablet by ity of 300-30 mg 21:36: 00:00 mouth 2 [place] tablet 15 :00 (two) Medical times Branch daily. cyclobenzap Yes [id number] 5mg Take 1 [facility] rine 5 mg 7-14 tablet by ity o f tablet 00:00: mouth 3 [place] 00 (three) Medical times Branch daily. cyclobenzap Yes [id number] 5mg Take 1 [facility] rine 5 mg 7-14 tablet by ity o f tablet 00:00: mouth 3 [place] 00 (three) Medical times Branch daily. cyclobenzap 2018-0 Yes [id number] 5mg Take 1 [facility] rine 5 mg 7-14 tablet by ity o f tablet 00:00: mouth 3 00 (three) Medical times Branch daily. cyclobenzap 2018-0 Yes [id number] 5mg Take 1 [facility] rine 5 mg 7-14 tablet by ity o f tablet 00:00: mouth 3 00 (three) Medical times Branch daily. cyclobenzap 2018-0 Yes [id number] 5mg Take 1 [facility] rine 5 mg 7-14 tablet by ity o f tablet 00:00: mouth 3 00 (three) Medical times Branch daily. cyclobenzap 2018-0 Yes [id number] 5mg Take 1 [facility] rine 5 mg 7-14 tablet by ity o f tablet 00:00: mouth 3 (three) Medical times Branch daily. cyclobenzap 0 Yes [id number] 5mg Take 1 [facility] rine 5 mg 7-14 tablet by ity o f tablet 00:00: mouth 3 (three) Medical times Branch daily. cyclobenzap 0 Yes [id number] 5mg Take 1 [facility] rine 5 mg 7-14 tablet by ity o f tablet 00:00: mouth 3 (three) Medical times Branch daily. cyclobenzap 2018-0 Yes [id number] 5mg Take 1 [facility] rine 5 mg 7-14 tablet by ity o f tablet 00:00: mouth 3 (three) Medical times Branch daily. cyclobenzap 2018-0 Yes [id number] 5mg Take 1 [facility] rine 5 mg 7-14 tablet by ity o f tablet 00:00: mouth 3 (three) Medical times Branch daily. cyclobenzap 2018-0 Yes [id number] 5mg Take 1 [facility] rine 5 mg 7-14 tablet by ity o f tablet 00:00: mouth 3 00 (three) Medical times Branch daily. cyclobenzap 2018-0 Yes [id number] 5mg Take 1 [facility] rine 5 mg 7-14 tablet by ity o f tablet 00:00: mouth 3 00 (three) Medical times Branch daily. cyclobenzap 2018-0 Yes [id number] 5mg Take 1 [facility] rine 5 mg 7-14 tablet by ity o f tablet 00:00: mouth 3 00 (three) Medical times Branch daily. cyclobenzap 2019-0 Yes [id number] 5mg Take 1 [facility] rine 5 mg 7-14 tablet by ity o f tablet 00:00: mouth 3 00 (three) Medical times Branch daily. cyclobenzap 2018-0 Yes [id number] 5mg Take 1 Univers rine 5 mg 7-14 tablet by ity o f tablet 00:00: mouth 3 00 (three) Medical times Branch daily. cyclobenzap 2018-0 Yes [id number] 5mg Take 1 [facility] rine 5 mg 7-14 tablet by ity o f tablet 00:00: mouth 3 00 (three) Medical times Branch daily. cyclobenzap 2018-0 Yes [id number] 5mg Take 1 Univers rine 5 mg 7-14 tablet by ity o f tablet 00:00: mouth 3 (three) Medical times Branch daily. cyclobenzap 2018-0 Yes [id number] 5mg Take 1 [facility] rine 5 mg 7-14 tablet by ity o f tablet 00:00: mouth 3 (three) Medical times Branch daily. cyclobenzap 2018-0 Yes [id number] 5mg Take 1 Univers rine 5 mg 7-14 tablet by ity o f tablet 00:00: mouth 3 (three) Medical times Branch daily. cyclobenzap 2018-0 Yes [id number] 5mg Take 1 Univers rine 5 mg 7-14 tablet by ity o f tablet 00:00: mouth 3 (three) Medical times Branch daily. cyclobenzap 2018-0 Yes [id number] 5mg Take 1 Univers rine 5 mg 7-14 tablet by ity o f tablet 00:00: mouth 3 00 (three) Medical times Branch daily. cyclobenzap 2018-0 Yes [id number] 5mg Take 1 Univers rine 5 mg 7-14 tablet by ity o f tablet 00:00: mouth 3 00 (three) Medical times Branch daily. cyclobenzap 2018-0 Yes [id number] 5mg Take 1 Univers rine 5 mg 7-14 tablet by ity o f tablet 00:00: mouth 3 [place] 00 (three) Medical times Branch daily. cyclobenzap 2018-0 Yes [id number] 5mg Take 1 Univers rine 5 mg 7-14 tablet by ity o f tablet 00:00: mouth 3 00 (three) Medical times Branch daily. cyclobenzap 2020- No [id number] 5mg Take 1 Univers rine 5 mg 7-14 02-14 tablet by ity of tablet 00:00: 00:00 mouth 3 [place] 00 :00 (three) Medical times Branch daily. cyclobenzap 2019- No [id number] 5mg Take 1 Univers rine 5 mg 7-14 02-14 tablet by ity of tablet 00:00: 00:00 mouth 3 [place] 00 :00 (three) Medical times Branch daily. Breo Breo 2018- No Reji 1 puff Common Ellipta Ellipta 5-08 08-06 [facility] 00:00: 00:00 - [facility] :00 [facility] SODIUM 2018- No by Dental Unive rs FLUORIDE 4-16 16 route. ity of (PREVIDENT 17:01: 00:00 [place] 5000 48 :00 Medical BOOSTER Branch DENTAL) mirtazapine 2018- No 30mg Take 30 mg Univers (REMERON 01-0112 by mouth ity of BERTHA-TAB) 30 15:40: 00:00 at [place] mg 13 :00 bedtime. Medical disintegrat Branch ing tablet hydrOXYzine 2018- No 25mg Take 25 mg Univers (ATARAX) 25 01-01-12 by mouth ity of mg tablet 15:38: 00:00 every 6 [place] 32 :00 (six) Medical hours. Branch hydrochloro 2018- No 12.5mg Take 12.5 Univers thiazide -12 03-12 mg by ity of (ESIDRIX) 15:38: 00:00 mouth [place] 12.5 mg 08 :00 daily. Medical capsule Branch cycloSPORIN 2018- No 1[drp] Place 1 Univers E -09 24-12 Drop in ity of (RESTASIS) 15:36: 00:00 [place] eye [place] 0.05 % 49 :00 every 12 Medical drops (twelve) Branch hours. aspirin 81 2018- No 81mg Take 81 mg Univers mg chewable 01-01-12 by mouth ity of tablet 15:36: 00:00 daily. [place] 27 :00 Medical Branch venlafaxine 2018- No 150mg Take 150 Univers (EFFEXOR) 01-01 03-12 mg by ity of 75 mg 15:34: 00:00 mouth [place] tablet 15 :00 daily. Medical Branch ALBUTEROL 2019-0 2019- No Inhale. Univ ers SULFATE 12 12 ity of INHALE 15:31: 00:00 [place] 02 :00 Medical Branch Kenalog Kenalog 2019-0 No 40mg Common (Triamcinol (Triamcinol 2-06 S pirit one) one) 00:00: - [facility] 00 [facility] Kenalog Kenalog 2019-0 No 40mg Common (Triamcinol (Triamcinol 2-06 S pirit one) one) 00:00: - [facility] 00 [facility] Kenalog Kenalog 2019-0 No 40mg Common (Triamcinol (Triamcinol 2-06 S pirit one) one) 00:00: - [facility] 00 [facility] Kenalog Kenalog 2019-0 No 40mg Common (Triamcinol (Triamcinol 2-06 S pirit one) one) 00:00: - [facility] 00 [facility] Kenalog Kenalog 2019-0 No 40mg Common (Triamcinol (Triamcinol 2-06 S pirit one) one) 00:00: - [facility] 00 [facility] Kenalog Kenalog 2019-0 No 40mg Common (Triamcinol (Triamcinol 2-06 S pirit one) one) 00:00: - [facility] 00 [facility] Kenalog Kenalog 2019-0 No 40mg Common (Triamcinol (Triamcinol 2-06 S pirit one) one) 00:00: - [facility] 00 [facility] Kenalog Kenalog 2019-0 No 40mg Common (Triamcinol (Triamcinol 2-06 S pirit one) one) 00:00: - [facility] 00 [facility] Kenalog Kenalog 2019-0 No 40mg Common (Triamcinol (Triamcinol 2-06 S pirit one) one) 00:00: - [facility] 00 [facility] Kenalog Kenalog 2019-0 No 40mg Common (Triamcinol (Triamcinol 2-06 S pirit one) one) 00:00: - [facility] 00 [facility] Kenalog Kenalog 2019-0 No 40mg Common (Triamcinol (Triamcinol 2-06 S pirit one) one) 00:00: - [facility] 00 [facility] Kel Knowlesalog 2018-0 No 40mg Common (Triamcinol (Triamcinol 2-06 S pirit one) one) 00:00: - [facility] 00 [facility] Kel Kenalog 2018-0 No 40mg Common (Triamcinol (Triamcinol 2-06 S pirit one) one) 00:00: - [facility] 00 [facility] Kel Knowlesalog 2018-0 No 40mg Common (Triamcinol (Triamcinol 2-06 S pirit one) one) 00:00: - [facility] 00 [facility] bacitracin 2019- No [id number] Apply to [facility] 500 11-07 03-12 affected ity of unit/gram 00:00: 00:00 area(s) 3 [place] ointment 00 :00 (three) Medical times Branch daily. amoxicillin 2019- No 1{tbl} Take 1 U nivers -clavulanat 10-30-12 tablet by it y of e 875-125 00:00: 00:00 mouth [place] mg per 00 :00 every 12 Medical tablet (twelve) Branch hours. amitriptyli 2017-10 2019- No Unive rs ne 50 mg 0 03-12 ity of tablet 00:00: 00:00 [place] 00 [...] needed. [place] mcg/dose 00 Medical DsDv Branch [facility] 2016-0 Yes 1{puff} Inhale 1 Univer s ELLIPTA 6-03 Puff as ity of 100-25 00:00: needed. [place] mcg/dose 00 Medical DsDv Branch [facility] 2015-0 Yes 1{puff} Inhale 1 Univer s ELLIPTA 6-03 Puff as ity of 100-25 00:00: needed. [place] mcg/dose 00 Medical DsDv Branch [facility] 0 Yes 1{puff} Inhale 1 Univer s ELLIPTA 6-03 Puff as ity of 100-25 00:00: needed. [place] mcg/dose 00 Medical DsDv Branch [facility] 0 Yes 1{puff} Inhale 1 Univer s ELLIPTA 6-03 Puff as ity of 100-25 00:00: needed. [place] mcg/dose 00 Medical DsDv Branch [facility] 0 Yes 1{puff} Inhale 1 Univer s ELLIPTA 6-03 Puff as ity of 100-25 00:00: needed. [place] mcg/dose 00 Medical DsDv Branch [facility] 2015-0 Yes Univers ELLIPTA 6-03 ity of 100-25 00:00: [place] mcg/dose 00 Medical DsDv Branch [facility] 2015-0 Yes 1{puff} Inhale 1 Univer s ELLIPTA 6-03 Puff as ity of 100-25 00:00: needed. [place] mcg/dose 00 Medical DsDv Branch [facility] 2015-0 Yes 1{puff} Inhale 1 Univer s ELLIPTA 6-03 Puff as ity of 100-25 00:00: needed. [place] mcg/dose 00 Medical DsDv Branch [facility] 0 Yes 1{puff} Inhale 1 Univer s ELLIPTA 6-03 Puff as ity of 100-25 00:00: needed. [place] mcg/dose 00 Medical DsDv Branch [facility] 2015-0 Yes 1{puff} Inhale 1 Univer s ELLIPTA 6-03 Puff as ity of 100-25 00:00: needed. [place] mcg/dose 00 Medical DsDv Branch [facility] 2015-0 Yes 1{puff} Inhale 1 Univer s ELLIPTA 6-03 Puff as ity of 100-25 00:00: needed. [place] mcg/dose 00 Medical DsDv Branch [facility] 2016-0 Yes 1{puff} Inhale 1 Univer s ELLIPTA 6-03 Puff as ity of 100-25 00:00: needed. [place] mcg/dose 00 Medical DsDv Branch [facility] 0 Yes 1{puff} Inhale 1 Univer s ELLIPTA 6-03 Puff as ity of 100-25 00:00: needed. [place] mcg/dose 00 Medical DsDv Branch [facility] 2015-0 Yes Univers ELLIPTA 6-03 ity of 100-25 00:00: [place] mcg/dose 00 Medical DsDv Branch [facility] 0 Yes 1{puff} Inhale 1 Univer s ELLIPTA 6-03 Puff as ity of 100-25 00:00: needed. [place] mcg/dose 00 Medical DsDv Branch [facility] 0 Yes 1{puff} Inhale 1 Univer s ELLIPTA 6-03 Puff as ity of 100-25 00:00: needed. [place] mcg/dose 00 Medical DsDv Branch [facility] 0 Yes 1{puff} Inhale 1 Univer s ELLIPTA 6-03 Puff as ity of 100-25 00:00: needed. [place] mcg/dose 00 Medical DsDv Branch [facility] 0 Yes 1{puff} Inhale 1 Univer s ELLIPTA 6-03 Puff as ity of 100-25 00:00: needed. [place] mcg/dose 00 Medical DsDv Branch [facility] 2015-0 Yes 1{puff} Inhale 1 Univer s ELLIPTA 6-03 Puff as ity of 100-25 00:00: needed. [place] mcg/dose 00 Medical DsDv Branch [facility] 0 Yes 1{puff} Inhale 1 Univer s ELLIPTA 6-03 Puff as ity of 100-25 00:00: needed. [place] mcg/dose 00 Medical DsDv Branch [facility] 2015-0 Yes Univers ELLIPTA 6-03 ity of 100-25 00:00: [place] mcg/dose 00 Medical DsDv Branch [facility] 2015-0 Yes 1{puff} Inhale 1 Univer s ELLIPTA 6-03 Puff as ity of 100-25 00:00: needed. [place] mcg/dose 00 Medical DsDv Branch [facility] 2016-0 Yes 1{puff} Inhale 1 Univer s ELLIPTA 6-03 Puff as ity of 100-25 00:00: needed. [place] mcg/dose 00 Medical [facility] Branch [facility] 0 Yes 1{puff} Inhale 1 Univer s ELLIPTA 6-03 Puff as ity of 100-25 00:00: needed. [place] mcg/dose 00 Medical Dv Branch [facility] 0 Yes 1{puff} Inhale 1 Univer s ELLIPTA 6-03 Puff as ity of 100-25 00:00: needed. [place] mcg/dose 00 Medical [facility] Branch [facility] Yes 1{puff} Inhale 1 Univer s ELLIPTA 6-03 Puff as ity of 100-25 00:00: needed. [place] mcg/dose 00 Medical [facility] Branch [facility] Yes 1{puff} Inhale 1 Univer s ELLIPTA 6-03 Puff as ity of 100-25 00:00: needed. [place] mcg/dose 00 Medical [facility] 0 Yes Univers ELLIPTA 6-03 ity of 100-25 00:00: [place] mcg/dose 00 Medical [facility] 0 Yes 1{puff} Inhale 1 Univer s ELLIPTA 6-03 Puff as ity of 100-25 00:00: needed. [place] mcg/dose 00 Medical [facility] Yes 1{puff} Inhale 1 Univer s ELLIPTA 6-03 Puff as ity of 100-25 00:00: needed. [place] mcg/dose 00 Medical Dv Branch [facility] 0 Yes 1{puff} Inhale 1 Univer s ELLIPTA 6-03 Puff as ity of 100-25 00:00: needed. [place] mcg/dose 00 Medical [facility] Branch [facility] 0 Yes 1{puff} Inhale 1 Univer s ELLIPTA 6-03 Puff as ity of 100-25 00:00: needed. [place] mcg/dose 00 Medical [facility] Branch [facility] 0 Yes 1{puff} Inhale 1 Univer s ELLIPTA 6-03 Puff as ity of 100-25 00:00: needed. [place] mcg/dose 00 Medical DsDv Branch [facility] 0 Yes 1{puff} Inhale 1 Univer s ELLIPTA 6-03 Puff as ity of 100-25 00:00: needed. [place] mcg/dose 00 Medical DsDv Branch [facility] 2016-0 Yes 1{puff} Inhale 1 Univer s ELLIPTA 6-03 Puff as ity of 100-25 00:00: needed. [place] mcg/dose 00 Medical DsDv Branch [facility] 2015-0 Yes 1{puff} Inhale 1 Univer s ELLIPTA 6-03 Puff as ity of 100-25 00:00: needed. [place] mcg/dose 00 Medical DsDv Branch [facility] 0 Yes Univers ELLIPTA 6-03 ity of 100-25 00:00: [place] mcg/dose 00 Medical DsDv Branch [facility] 2015-0 Yes 1{puff} Inhale 1 Univer s ELLIPTA 6-03 Puff as ity of 100-25 00:00: needed. [place] mcg/dose 00 Medical DsDv Branch [facility] 2015-0 Yes 1{puff} Inhale 1 Univer s ELLIPTA 6-03 Puff as ity of 100-25 00:00: needed. [place] mcg/dose 00 Medical DsDv Branch [facility] 0 Yes 1{puff} Inhale 1 Univer s ELLIPTA 6-03 Puff as ity of 100-25 00:00: needed. [place] mcg/dose 00 Medical DsDv Branch [facility] 0 Yes 1{puff} Inhale 1 Univer s ELLIPTA 6-03 Puff as ity of 100-25 00:00: needed. [place] mcg/dose 00 Medical DsDv Branch [facility] 2015-0 Yes 1{puff} Inhale 1 Univer s ELLIPTA 6-03 Puff as ity of 100-25 00:00: needed. [place] mcg/dose 00 Medical DsDv Branch [facility] 2016-0 Yes Univers ELLIPTA 6-03 ity of 100-25 00:00: [place] mcg/dose 00 Medical DsDv Branch [facility] 2015-0 Yes Univers ELLIPTA 6-03 ity of 100-25 00:00: [place] mcg/dose 00 Medical DsDv Branch [facility] 2016-0 Yes Univers ELLIPTA 6-03 ity of 100-25 00:00: [place] mcg/dose 00 Medical DsDv Branch [facility] 2015-0 Yes Univers ELLIPTA 6-03 ity of 100-25 00:00: [place] mcg/dose 00 Medical DsDv Branch [facility] 2016-0 Yes 1{puff} Inhale 1 Univer s ELLIPTA 6-03 Puff as ity of 100-25 00:00: needed. [place] mcg/dose 00 Medical DsDv Branch [facility] 0 Yes 1{puff} Inhale 1 Univer s ELLIPTA 6-03 Puff as ity of 100-25 00:00: needed. [place] mcg/dose 00 Medical DsDv Branch [facility] 2016-0 Yes Univers ELLIPTA 6-03 ity of 100-25 00:00: [place] mcg/dose 00 Medical DsDv Branch [facility] 0 Yes 1{puff} Inhale 1 Univer s ELLIPTA 6-03 Puff as ity of 100-25 00:00: needed. [place] mcg/dose 00 Medical DsDv Branch [facility] 0 Yes 1{puff} Inhale 1 Univer s ELLIPTA 6-03 Puff as ity of 100-25 00:00: needed. [place] mcg/dose Medical Dv Branch [facility] 0 Yes 1{puff} Inhale 1 Univer s ELLIPTA 6-03 Puff as ity of 100-25 00:00: needed. [place] mcg/dose 00 Medical DsDv Branch [facility] 0 Yes 1{puff} Inhale 1 Univer s ELLIPTA 6-03 Puff as ity of 100-25 00:00: needed. [place] mcg/dose 00 Medical DsDv Branch [facility] 0 Yes 1{puff} Inhale 1 Univer s ELLIPTA 6-03 Puff as ity of 100-25 00:00: needed. [place] mcg/dose 00 Medical DsDv Branch [facility] 0 Yes Univers ELLIPTA 6-03 ity of 100-25 00:00: [place] mcg/dose 00 Medical DsDv Branch [facility] 0 Yes 1{puff} Inhale 1 Univer s ELLIPTA 6-03 Puff as ity of 100-25 00:00: needed. [place] mcg/dose 00 Medical DsDv Branch [facility] 0 Yes 1{puff} Inhale 1 Univer s ELLIPTA 6-03 Puff as ity of 100-25 00:00: needed. [place] mcg/dose 00 Medical DsDv Branch [facility] 0 Yes 1{puff} Inhale 1 Univer s ELLIPTA 6-03 Puff as ity of 100-25 00:00: needed. [place] mcg/dose 00 Medical DsDv Branch [facility] 2016-0 Yes 1{puff} Inhale 1 Univer s ELLIPTA 6-03 Puff as ity of 100-25 00:00: needed. [place] mcg/dose 00 Medical DsDv Branch [facility] 2015-0 Yes 1{puff} Inhale 1 Univer s ELLIPTA 6-03 Puff as ity of 100-25 00:00: needed. [place] mcg/dose 00 Medical DsDv Branch [facility] 0 Yes 1{puff} Inhale 1 Univer s ELLIPTA 6-03 Puff as ity of 100-25 00:00: needed. [place] mcg/dose 00 Medical DsDv Branch [facility] 0 Yes 1{puff} Inhale 1 Univer s ELLIPTA 6-03 Puff as ity of 100-25 00:00: needed. [place] mcg/dose 00 Medical DsDv Branch [facility] 0 Yes 1{puff} Inhale 1 Univer s ELLIPTA 6-03 Puff as ity of 100-25 00:00: needed. [place] mcg/dose 00 Medical DsDv Branch [facility] 0 Yes 1{puff} Inhale 1 Univer s ELLIPTA 6-03 Puff as ity of 100-25 00:00: needed. [place] mcg/dose 00 Medical DsDv Branch [facility] 0 Yes 1{puff} Inhale 1 Univer s ELLIPTA 6-03 Puff as ity of 100-25 00:00: needed. [place] mcg/dose 00 Medical DsDv Branch [facility] 2015-0 Yes Univers ELLIPTA 6-03 ity of 100-25 00:00: [place] mcg/dose 00 Medical DsDv Branch [facility] 2015-0 Yes 1{puff} Inhale 1 Univer s ELLIPTA 6-03 Puff as ity of 100-25 00:00: needed. [place] mcg/dose 00 Medical DsDv Branch [facility] 0 Yes 1{puff} Inhale 1 Univer s ELLIPTA 6-03 Puff as ity of 100-25 00:00: needed. [place] mcg/dose 00 Medical DsDv Branch [facility] 0 Yes 1{puff} Inhale 1 Univer s ELLIPTA 6-03 Puff as ity of 100-25 00:00: needed. [place] mcg/dose 00 Medical Dv Branch BREO 2016-0 Yes 1{puff} Inhale 1 Univer s ELLIPTA 6-03 Puff as ity of 100-25 00:00: needed. [place] mcg/dose 00 Medical Dv Branch BREO 2016-0 Yes 1{puff} Inhale 1 Univer s ELLIPTA 6-03 Puff as ity of 100-25 00:00: needed. [place] mcg/dose 00 Medical Dv Branch BREO 2015-0 Yes 1{puff} Inhale 1 Univer s ELLIPTA 6-03 Puff as ity of 100-25 00:00: needed. [place] mcg/dose 00 Medical Dv Branch BREO 2016-0 Yes 1{puff} Inhale 1 Univer s ELLIPTA 6-03 Puff as ity of 100-25 00:00: needed. [place] mcg/dose 00 Medical [facility] Branch losartan 2014-0 Yes 100mg 100 mg Univer s (COZAAR) 50 9-22 daily. ity of mg tablet 00:00: Medical Branch losartan 2014-0 Yes 100mg 100 mg Univer s (COZAAR) 50 9-22 daily. ity of mg tablet 00:00: [facility] Branch losartan 2014-0 Yes 100mg 100 mg Univer s (COZAAR) 50 9-22 daily. ity of mg tablet 00:00: Medical Branch losartan 2014-0 Yes 100mg 100 mg Univer s (COZAAR) 50 9-22 daily. ity of mg tablet 00:00: Medical Branch losartan 2015-0 Yes 100mg 100 mg [...] 9-22 daily. ity of mg tablet 00:00: [facility] losartan 2014-0 Yes 100mg 100 mg Univer s (COZAAR) 50 9-22 daily. ity of mg tablet 00:00: [facility] losartan 2014-0 Yes 100mg 100 mg Univer s (COZAAR) 50 9-22 daily. ity of mg tablet 00:00: [facility] losartan 2014- Yes 100mg 100 mg Univer s (COZAAR) 50 9-22 daily. ity of mg tablet 00:00: [facility] losartan 2014- Yes 100mg 100 mg Univer s (COZAAR) 50 9-22 daily. ity of mg tablet 00:00: [facility] losartan 2014-0 2020- No 100mg 100 mg Unive rs (COZAAR) 50 9-22 02-14 daily. ity o f mg tablet 00:00: 00:00 [place] 00 :00 [facility] atorvastati 2012-10 Yes 20mg QD Take [address] [facility] (LIPITOR) 1-20 by mouth [facility] 20 MG 13:32: daily. Medical tablet 13 [place] cetirizine 2012-10 Yes 10mg QD Take [address] (ZYRTEC) 10 1-20 by mouth [facility] MG tablet 13:32: daily. Medica l 13 [place] verapamil 2012-10 Yes 120mg QD Take [address] [facility] (VERELAN 1-20 mg by [facility]) 120 MG 13:32: mouth Medica l 24 hr 13 daily. Center capsule esomeprazol 2012-10 Yes 40mg QD Take [address] [facility] (NEXIUM) 1-20 by mouth [facility] 40 MG 13:32: daily. Medical capsule 13 [place] solifenacin 2012-10 Yes 5mg QD Take [address] (VESICARE) 1-20 by mouth [facility] 10 MG 13:32: daily. Medical tablet 13 [place] atorvastati 2012-10 Yes 20mg QD Take [address] [facility] (LIPITOR) 1-20 by mouth [facility] 20 MG 13:32: daily. Medical tablet 13 [place] cetirizine 2012-10 Yes 10mg QD Take [address] (ZYRTEC) 10 1-20 by mouth [facility] MG tablet 13:32: daily. Medica l 13 [place] verapamil 2012-10 Yes 120mg QD Take [address] [facility] (VERELAN 1-20 mg by [facility] PM) 120 MG 13:32: mouth Medica l 24 hr 13 daily. [place] capsule esomeprazol 2012-10 Yes 40mg QD Take [address] [facility] (NEXIUM) 1-20 [facility] 40 MG 13:32: daily. Medical capsule 13 [place] solifenacin 2012-10 Yes 5mg QD Take [address] [facility] (VESICARE) 1-20 [facility] 10 MG 13:32: daily. Medical tablet 13 [place] atorvastati 2012-10 Yes 20mg QD Take [address] [facility] (LIPITOR) 1-20 by mouth [facility] 20 MG 13:32: daily. Medical tablet 13 [place] cetirizine 2012-10 Yes 10mg QD Take [address] [facility] (ZYRTEC) 10 1-20 by mouth [facility] MG tablet 13:32: daily. [facility] l 13 [place] verapamil 2012-10 Yes 120mg QD Take [address] [facility] (VERELAN 1-20 mg by [facility]) 120 MG 13:32: mouth Medica l 24 hr 13 daily. [place] capsule esomeprazol 2012-10 Yes 40mg QD Take [address] [facility] (NEXIUM) 1-20 by mouth [facility] 13:32: daily. Medical capsule 13 [place] solifenacin 2012-10 Yes 5mg QD Take [address] (VESICARE) 1-20 by mouth [facility] 10 MG 13:32: daily. Medical tablet 13 [place] albuterol 2012-10 Yes 2{puff} Inhale [address] (PROVENTIL 1-20 puffs by [facility] HFA;VENTOLI 13:32: mouth via M edical N HFA) 90 12 inhaler Center mcg/actuati every 6 on inhaler (six) hours as needed. desvenlafax 2012-10 Yes 100mg QD Take [address] ine 1-20 mg by [facility] succinate 13:32: mouth Medical (PRISTIQ) 12 daily. [place] 100 MG 24 hr tablet clonazePAM 2012-10 Yes .5mg QD Take 0.[address] [facility] (KLONOPIN) 1-20 mg by [facility] 0.5 MG 13:32: mouth Medical tablet 12 daily. [place] QUEtiapine 2012-10 Yes 150mg QD Take [address] (SEROQUEL 1-20 mg by [facility] XR) 150 mg 13:32: mouth Medica l Tb24 12 daily. [place] levothyroxi 2012-10 Yes 75ug QD Take [address] [facility] ne 1-20 mcg by [facility] (SYNTHROID, 13:32: mouth Medic al LEVOTHROID) 12 daily. Center 75 MCG tablet albuterol 2012-10 Yes 2{puff} Inhale [address] (PROVENTIL 1-20 puffs by [facility] HFA;VENTOLI 13:32: mouth via M edical N HFA) 90 12 inhaler Center mcg/actuati every 6 on inhaler (six) hours as needed. desvenlafax 2012-10 Yes 100mg QD Take [address] ine 1-20 mg by [facility] succinate 13:32: mouth Medical (PRISTIQ) 12 daily. [place] 100 MG 24 hr tablet clonazePAM 2012-10 Yes .5mg QD Take 0.[address] [facility] (KLONOPIN) 1-20 mg by [facility] 0.5 MG 13:32: mouth Medical tablet 12 daily. [place] QUEtiapine 2012-10 Yes 150mg QD Take [address] (SEROQUEL 1-20 mg by [facility] XR) 150 mg 13:32: mouth Medica l Tb24 12 daily. [place] levothyroxi 2012-10 Yes 75ug QD Take [address] [facility] [address] ne 1-20 mcg by [facility] (SYNTHROID, 13:32: mouth Medic al LEVOTHROID) 12 daily. [place] 75 MCG tablet albuterol 2012-10 Yes 2{puff} Inhale [address] (PROVENTIL 1-20 puffs by [facility] HFA;VENTOLI 13:32: mouth via M edical N HFA) 90 12 inhaler Center mcg/actuati every 6 on inhaler (six) hours as needed. desvenlafax 2012-10 Yes 100mg QD Take [address] ine 1-20 mg by [facility] succinate 13:32: mouth Medical (PRISTIQ) 12 daily. [place] 100 MG 24 hr tablet clonazePAM 2012-10 Yes .5mg QD Take 0.[address] [facility] (KLONOPIN) 1-20 mg by [facility] 0.5 MG 13:32: mouth Medical tablet 12 daily. [place] QUEtiapine 2012-10 Yes 150mg QD Take [address] (SEROQUEL 1-20 mg by [facility] XR) 150 mg 13:32: mouth Medica l Tb24 12 daily. [place] levothyroxi 2012-10 Yes 75ug QD Take [address] ne 1-20 mcg by [facility] (SYNTHROID, 13:32: mouth Medic al LEVOTHROID) 12 daily. [place] 75 MCG tablet Ropinirole Ropinirole Yes Reji 1 tablet 1 Common HCl HCl [facility] to 3 hours [facility] before [facility] bedtime [facility] ReliOn ReliOn Yes Erji as Common Prime Test Prime Test [facility] directed [facility] Pantoprazol Pantoprazol Yes Reji 1 tablet Common e Sodium e Sodium [facility] Verapamil Verapamil Yes Reji 1 tablet Common HCl ER HCl ER [facility] Accu-Chek Accu-Chek Yes Reji as Com mon FastClix FastClix Farris directed Sp edmund Lancets Lancets [facility] CPAP CPAP Yes Reji nightly Common Machine Machine [facility] Clonazepam Clonazepam Yes Reji 1 tablet Common [facility] at bedtime [facility] Levothyroxi Levothyroxi Yes Reji 1 tablet Common ne Sodium ne Sodium [facility] on an Spi rit empty - [facility] stomach in [facility] Losartan Losartan Yes Reji 1 tablet C ommon Potassium Potassium [facility] Spir it [facility] Metformin Metformin Yes Reji 1 tablet Common HCl HCl [facility] with a Spirit meal [facility] Atorvastati Atorvastati Yes Reji TAKE 1 Common n Calcium n Calcium [facility] TABLET BY Spirit MOUTH - [facility] EVERY DAY [facility] OneTouch OneTouch Yes Reji TEST BLOOD Common Verio Verio [facility] SUGAR ONCE Spirit A DAY [facility] Spironolact Spironolact Yes Reji 1 tablet Common one one [facility] Diclofenac Diclofenac Yes Reji as C ommon Sodium Sodium [facility] directed [facility] Hydrocodone Hydrocodone Yes Reji 1 tablet Common -Acetaminop -Acetaminop [facility] as needed [facility] hen hen [facility] Venlafaxine Venlafaxine Yes Reji 1 capsule Common HCl ER HCl ER [facility] with food Spiri [facility] Venlafaxine Venlafaxine Yes Reji 1 tablet Common HCl HCl [facility] with food [facility] Amitriptyli Amitriptyli Yes Reji 1 tablet Common ne HCl ne HCl [facility] at bedtime Spir [facility] Quetiapine Quetiapine Yes Reji 1 tablet Common Fumarate Fumarate [facility] Metformin Metformin Yes Reji TAKE 1 C ommon HCl HCl [facility] TABLET BY Spirit MOUTH - [facility] TWICE A DAY WITH A [facility] Atorvastati Atorvastati Yes Reji 1 tablet Common n Calcium n Calcium [facility] Spir [facility] Losartan Losartan Yes Reji TAKE 1 Com mon Potassium Potassium [facility] TABLET BY Spirit MOUTH - [facility] EVERY DAY [facility] Pantoprazol Pantoprazol Yes Reji TAKE 1 Common e Sodium e Sodium [place] TABLET BY S pirit MOUTH - [facility] EVERY DAY [facility] Accu-Chek Accu-Chek No Accu-Chek FastClix FastClix FastClix Lancets - Lancets - Lancets - Atorvastati Atorvastati No Atorvastat n Calcium n Calcium in Calcium 40 MG 40 MG 40 MG Tumersaid Tumersaid No Tumersaid Diclofenac Diclofenac No BID Diclofenac Sodium 1 % Sodium 1 % Sodium 1 % Venlafaxine Venlafaxine No 1{capsu QD Venlafaxin HCl ER 150 HCl ER 150 le_with e HCl ER MG MG _food} 150 MG Vitamin C Vitamin C No Vitamin C HYDROcodone HYDROcodone No 1{table HYDROcodon -Acetaminop -Acetaminop t_as_ne e-Acetamin hen 7.5-325 hen 7.5-325 eded} ophen MG MG 7.5-325 MG methylPREDN methylPREDN No QD methylPRED ISolone 4 ISolone 4 NISolone 4 MG MG MG Verapamil Verapamil No Verapamil HCl ER 120 HCl ER 120 HCl ER 120 MG MG MG Artemisia Artemisia No Artemisia ReliOn ReliOn No BID ReliOn Prime Test Prime Test Prime Test - - - Losartan Losartan No Losartan Potassium Potassium Potassium 100 MG 100 MG 100 MG Azithromyci Azithromyci No QD Azithromyc n 250 MG n 250 MG in 250 MG Vitamin D3 Vitamin D3 No Vitamin D3 Venlafaxine Venlafaxine No Venlafaxin HCl 75 MG HCl 75 MG e HCl 75 MG Pantoprazol Pantoprazol No Pantoprazo e Sodium 40 e Sodium 40 le Sodium MG MG 40 MG QUEtiapine QUEtiapine No 1{table QD QUEtiapine Fumarate Fumarate t} Fumarate 200 MG 200 MG 200 MG Spironolact Spironolact No Spironolac one 25 MG one 25 MG tone 25 MG ProAir HFA ProAir HFA No 2{puffs ProAir HFA 108 (90 108 (90 _as_nee 108 (90 Base) Base) ded} Base) MCG/ACT MCG/ACT MCG/ACT metFORMIN metFORMIN No metFORMIN HCl 500 MG HCl 500 MG HCl 500 MG Zinc 50 MG Zinc 50 MG No 1{table QD Zinc 50 MG t} Levothyroxi Levothyroxi No QD Levothyrox ne Sodium ne Sodium ine Sodium 100 MCG 100 MCG 100 MCG Levothyroxi Levothyroxi No Levothyrox ne Sodium ne Sodium ine Sodium 100 MCG 100 MCG 100 MCG rOPINIRole rOPINIRole No QD rOPINIRole HCl 2 MG HCl 2 MG HCl 2 MG Ferrous Ferrous No Ferrous Sulfate 325 Sulfate 325 Sulfate (65 Fe) MG (65 Fe) MG 325 (65 Fe) MG Benzonatate Benzonatate No 1{capsu Benzonatat 200 MG 200 MG le_as_n e 200 MG eeded} Breo Breo No 1{puff} BID Breo Ellipta Ellipta Ellipta 100-25 100-25 100-25 MCG/INH MCG/INH MCG/INH OneTouch OneTouch No OneTouch Verio - Verio - Verio - Temazepam Temazepam No 1{capsu QD Temazepam 30 MG 30 MG le_at_b 30 MG edtime_ as_need ed} CPAP CPAP No CPAP Machine max Machine max Machine pressure 9 pressure 9 max cm of water cm of water pressure 9 cm of water Accu-Chek Accu-Chek No Accu-Chek FastClix FastClix FastClix Lancets - Lancets - Lancets - Atorvastati Atorvastati No Atorvastat n Calcium n Calcium in Calcium 40 MG 40 MG 40 MG Tumersaid Tumersaid No Tumersaid Diclofenac Diclofenac No BID Diclofenac Sodium 1 % Sodium 1 % Sodium 1 % Venlafaxine Venlafaxine No 1{capsu QD Venlafaxin HCl ER 150 HCl ER 150 le_with e HCl ER MG MG _food} 150 MG Vitamin C Vitamin C No Vitamin C HYDROcodone HYDROcodone No 1{table HYDROcodon -Acetaminop -Acetaminop t_as_ne e-Acetamin hen 7.5-325 hen 7.5-325 eded} ophen MG MG 7.5-325 MG methylPREDN methylPREDN No QD methylPRED ISolone 4 ISolone 4 NISolone 4 MG MG MG Verapamil Verapamil No Verapamil HCl ER 120 HCl ER 120 HCl ER 120 MG MG MG Artemisia Artemisia No Artemisia ReliOn ReliOn No BID ReliOn Prime Test Prime Test Prime Test - - - Losartan Losartan No Losartan Potassium Potassium Potassium 100 MG 100 MG 100 MG Azithromyci Azithromyci No QD Azithromyc n 250 MG n 250 MG in 250 MG Vitamin D3 Vitamin D3 No Vitamin D3 Venlafaxine Venlafaxine No Venlafaxin HCl 75 MG HCl 75 MG e HCl 75 MG Pantoprazol Pantoprazol No Pantoprazo e Sodium 40 e Sodium 40 le Sodium MG MG 40 MG Spironolact Spironolact No 1{table QD Spironolac one 25 MG one 25 MG t} tone 25 MG OneTouch OneTouch No OneTouch Verio - Verio - Verio - Atorvastati Atorvastati No Atorvastat n Calcium n Calcium in Calcium 40 MG 40 MG 40 MG Atorvastati Atorvastati No 1{table QD Atorvastat n Calcium n Calcium t} in Calcium 40 MG 40 MG 40 MG HYDROcodone HYDROcodone No 1{table HYDROcodon -Acetaminop -Acetaminop t_as_ne e-Acetamin hen 7.5-325 hen 7.5-325 eded} ophen MG MG 7.5-325 MG Levothyroxi Levothyroxi No Levothyrox ne Sodium ne Sodium ine Sodium 100 MCG 100 MCG 100 MCG Temazepam Temazepam No 1{capsu QD Temazepam 30 MG 30 MG le_at_b 30 MG edtime_ as_need ed} Venlafaxine Venlafaxine No Venlafaxin HCl 75 MG HCl 75 MG e HCl 75 MG CPAP CPAP No CPAP Machine max Machine max Machine pressure 9 pressure 9 max cm of water cm of water pressure 9 cm of water ProAir HFA ProAir HFA No 2{puffs ProAir HFA 108 (90 108 (90 _as_nee 108 (90 Base) Base) ded} Base) MCG/ACT MCG/ACT MCG/ACT Diclofenac Diclofenac No BID Diclofenac Sodium 1 % Sodium 1 % Sodium 1 % Verapamil Verapamil No Verapamil HCl ER 120 HCl ER 120 HCl ER 120 MG MG MG metFORMIN metFORMIN No metFORMIN HCl 500 MG HCl 500 MG HCl 500 MG rOPINIRole rOPINIRole No QD rOPINIRole HCl 2 MG HCl 2 MG HCl 2 MG Pantoprazol Pantoprazol No Pantoprazo e Sodium 40 e Sodium 40 le Sodium MG MG 40 MG QUEtiapine QUEtiapine No 1{table QD QUEtiapine Fumarate Fumarate t} Fumarate 200 MG 200 MG 200 MG Breo Breo No 1{puff} BID Breo Ellipta Ellipta Ellipta 100-25 100-25 100-25 MCG/INH MCG/INH MCG/INH ReliOn ReliOn No BID ReliOn Prime Test Prime Test Prime Test - - - Accu-Chek Accu-Chek No Accu-Chek FastClix FastClix FastClix Lancets - Lancets - Lancets - Losartan Losartan No Losartan Potassium Potassium Potassium 100 MG 100 MG 100 MG Venlafaxine Venlafaxine No 1{capsu QD Venlafaxin HCl ER 150 HCl ER 150 le_with e HCl ER MG MG _food} 150 MG Verapamil Verapamil No Verapamil HCl ER 120 HCl ER 120 HCl ER 120 MG MG MG Pantoprazol Pantoprazol No 1{table QD Pantoprazo e Sodium 40 e Sodium 40 t} le Sodium MG MG 40 MG Atorvastati Atorvastati No Atorvastat n Calcium n Calcium in Calcium 40 MG 40 MG 40 MG QUEtiapine QUEtiapine No 1{table QD QUEtiapine Fumarate Fumarate t} Fumarate 200 MG 200 MG 200 MG Venlafaxine Venlafaxine No Venlafaxin HCl 75 MG HCl 75 MG e HCl 75 MG OneTouch OneTouch No OneTouch Verio - Verio - Verio - metFORMIN metFORMIN No metFORMIN HCl 500 MG HCl 500 MG HCl 500 MG CPAP CPAP No CPAP Machine max Machine max Machine pressure 9 pressure 9 max cm of water cm of water pressure 9 cm of water Diclofenac Diclofenac No BID Diclofenac Sodium 1 % Sodium 1 % Sodium 1 % Levothyroxi Levothyroxi No Levothyrox ne Sodium ne Sodium ine Sodium 100 MCG 100 MCG 100 MCG Temazepam Temazepam No 1{capsu QD Temazepam 30 MG 30 MG le_at_b 30 MG edtime_ as_need ed} HYDROcodone HYDROcodone No 1{table HYDROcodon -Acetaminop -Acetaminop t_as_ne e-Acetamin hen 7.5-325 hen 7.5-325 eded} ophen MG MG 7.5-325 MG metFORMIN metFORMIN No 1{table BID metFORMIN HCl 500 MG HCl 500 MG t_with_ HCl 500 MG a_meal} Atorvastati Atorvastati No 1{table QD Atorvastat n Calcium n Calcium t} in Calcium 40 MG 40 MG 40 MG Losartan Losartan No 1{table QD Losartan Potassium Potassium t} Potassium 100 MG 100 MG 100 MG Pantoprazol Pantoprazol No Pantoprazo e Sodium 40 e Sodium 40 le Sodium MG MG 40 MG Spironolact Spironolact No 1{table QD Spironolac one 25 MG one 25 MG t} tone 25 MG Breo Breo No 1{puff} BID Breo Ellipta Ellipta Ellipta 100-25 100-25 100-25 MCG/INH MCG/INH MCG/INH Losartan Losartan No Losartan Potassium Potassium Potassium 100 MG 100 MG 100 MG Verapamil Verapamil No 1{table QD Verapamil HCl ER 120 HCl ER 120 t} HCl ER 120 MG MG MG ReliOn ReliOn No BID ReliOn Prime Test Prime Test Prime Test - - - Accu-Chek Accu-Chek No Accu-Chek FastClix FastClix FastClix Lancets - Lancets - Lancets - Levothyroxi Levothyroxi No QD Levothyrox ne Sodium ne Sodium ine Sodium 100 MCG 100 MCG 100 MCG Venlafaxine Venlafaxine No 1{capsu QD Venlafaxin HCl ER 150 HCl ER 150 le_with e HCl ER MG MG _food} 150 MG ProAir HFA ProAir HFA No 2{puffs ProAir HFA 108 (90 108 (90 _as_nee 108 (90 Base) Base) ded} Base) MCG/ACT MCG/ACT MCG/ACT rOPINIRole rOPINIRole No QD rOPINIRole HCl 2 MG HCl 2 MG HCl 2 MG Venlafaxine Venlafaxine No 1{table QD Venlafaxin HCl 75 MG HCl 75 MG t_with_ e HCl 75 food} MG Venlafaxine Venlafaxine No Venlafaxin HCl 75 MG HCl 75 MG e HCl 75 MG Atorvastati Atorvastati No 1{table QD Atorvastat n Calcium n Calcium t} in Calcium 40 MG 40 MG 40 MG Pantoprazol Pantoprazol No 1{table QD Pantoprazo e Sodium 40 e Sodium 40 t} le Sodium MG MG 40 MG Breo Breo No 1{puff} BID Breo Ellipta Ellipta Ellipta 100-25 100-25 100-25 MCG/INH MCG/INH MCG/INH Pantoprazol Pantoprazol No Pantoprazo e Sodium 40 e Sodium 40 le Sodium MG MG 40 MG Losartan Losartan No 1{table QD Losartan Potassium Potassium t} Potassium 100 MG 100 MG 100 MG Losartan Losartan No Losartan Potassium Potassium Potassium 100 MG 100 MG 100 MG Verapamil Verapamil No 1{table QD Verapamil HCl ER 120 HCl ER 120 t} HCl ER 120 MG MG MG ProAir HFA ProAir HFA No 2{puffs ProAir HFA 108 (90 108 (90 _as_nee 108 (90 Base) Base) ded} Base) MCG/ACT MCG/ACT MCG/ACT metFORMIN metFORMIN No metFORMIN HCl 500 MG HCl 500 MG HCl 500 MG ReliOn ReliOn No BID ReliOn Prime Test Prime Test Prime Test - - - HYDROcodone HYDROcodone No 1{table HYDROcodon -Acetaminop -Acetaminop t_as_ne e-Acetamin hen 7.5-325 hen 7.5-325 eded} ophen MG MG 7.5-325 MG Verapamil Verapamil No Verapamil HCl ER 120 HCl ER 120 HCl ER 120 MG MG MG Temazepam Temazepam No 1{capsu QD Temazepam 30 MG 30 MG le_at_b 30 MG edtime_ as_need ed} Accu-Chek Accu-Chek No Accu-Chek FastClix FastClix FastClix Lancets - Lancets - Lancets - Venlafaxine Venlafaxine No 1{capsu QD Venlafaxin HCl ER 150 HCl ER 150 le_with e HCl ER MG MG _food} 150 MG OneTouch OneTouch No OneTouch Verio - Verio - Verio - Levothyroxi Levothyroxi No Levothyrox ne Sodium ne Sodium ine Sodium 100 MCG 100 MCG 100 MCG Venlafaxine Venlafaxine No 1{table QD Venlafaxin HCl 75 MG HCl 75 MG t_with_ e HCl 75 food} MG Spironolact Spironolact No 1{table QD Spironolac one 25 MG one 25 MG t} tone 25 MG Diclofenac Diclofenac No BID Diclofenac Sodium 1 % Sodium 1 % Sodium 1 % Levothyroxi Levothyroxi No QD Levothyrox ne Sodium ne Sodium ine Sodium 100 MCG 100 MCG 100 MCG metFORMIN metFORMIN No 1{table BID metFORMIN HCl 500 MG HCl 500 MG t_with_ HCl 500 MG a_meal} Atorvastati Atorvastati No Atorvastat n Calcium n Calcium in Calcium 40 MG 40 MG 40 MG rOPINIRole rOPINIRole No QD rOPINIRole HCl 2 MG HCl 2 MG HCl 2 MG QUEtiapine QUEtiapine No 1{table QD QUEtiapine Fumarate Fumarate t} Fumarate 200 MG 200 MG 200 MG CPAP CPAP No CPAP Machine max Machine max Machine pressure 9 pressure 9 max cm of water cm of water pressure 9 cm of water Venlafaxine Venlafaxine No Venlafaxin HCl 75 MG HCl 75 MG e HCl 75 MG Atorvastati Atorvastati No 1{table QD Atorvastat n Calcium n Calcium t} in Calcium 40 MG 40 MG 40 MG Pantoprazol Pantoprazol No 1{table QD Pantoprazo e Sodium 40 e Sodium 40 t} le Sodium MG MG 40 MG Breo Breo No 1{puff} BID Breo Ellipta Ellipta Ellipta 100-25 100-25 100-25 MCG/INH MCG/INH MCG/INH Pantoprazol Pantoprazol No Pantoprazo e Sodium 40 e Sodium 40 le Sodium MG MG 40 MG Losartan Losartan No 1{table QD Losartan Potassium Potassium t} Potassium 100 MG 100 MG 100 MG Losartan Losartan No Losartan Potassium Potassium Potassium 100 MG 100 MG 100 MG Verapamil Verapamil No 1{table QD Verapamil HCl ER 120 HCl ER 120 t} HCl ER 120 MG MG MG ProAir HFA ProAir HFA No 2{puffs ProAir HFA 108 (90 108 (90 _as_nee 108 (90 Base) Base) ded} Base) MCG/ACT MCG/ACT MCG/ACT metFORMIN metFORMIN No metFORMIN HCl 500 MG HCl 500 MG HCl 500 MG ReliOn ReliOn No BID ReliOn Prime Test Prime Test Prime Test - - - HYDROcodone HYDROcodone No 1{table HYDROcodon -Acetaminop -Acetaminop t_as_ne e-Acetamin hen 7.5-325 hen 7.5-325 eded} ophen MG MG 7.5-325 MG Verapamil Verapamil No Verapamil HCl ER 120 HCl ER 120 HCl ER 120 MG MG MG Temazepam Temazepam No 1{capsu QD Temazepam 30 MG 30 MG le_at_b 30 MG edtime_ as_need ed} Accu-Chek Accu-Chek No Accu-Chek FastClix FastClix FastClix Lancets - Lancets - Lancets - Venlafaxine Venlafaxine No 1{capsu QD Venlafaxin HCl ER 150 HCl ER 150 le_with e HCl ER MG MG _food} 150 MG OneTouch OneTouch No OneTouch Verio - Verio - Verio - Levothyroxi Levothyroxi No Levothyrox ne Sodium ne Sodium ine Sodium 100 MCG 100 MCG 100 MCG Venlafaxine Venlafaxine No 1{table QD Venlafaxin HCl 75 MG HCl 75 MG t_with_ e HCl 75 food} MG Spironolact Spironolact No 1{table QD Spironolac one 25 MG one 25 MG t} tone 25 MG Diclofenac Diclofenac No BID Diclofenac Sodium 1 % Sodium 1 % Sodium 1 % Levothyroxi Levothyroxi No QD Levothyrox ne Sodium ne Sodium ine Sodium 100 MCG 100 MCG 100 MCG metFORMIN metFORMIN No 1{table BID metFORMIN HCl 500 MG HCl 500 MG t_with_ HCl 500 MG a_meal} Atorvastati Atorvastati No Atorvastat n Calcium n Calcium in Calcium 40 MG 40 MG 40 MG rOPINIRole rOPINIRole No QD rOPINIRole HCl 2 MG HCl 2 MG HCl 2 MG QUEtiapine QUEtiapine No 1{table QD QUEtiapine Fumarate Fumarate t} Fumarate 200 MG 200 MG 200 MG CPAP CPAP No CPAP Machine max Machine max Machine pressure 9 pressure 9 max cm of water cm of water pressure 9 cm of water Pantoprazol Pantoprazol No Pantoprazo e Sodium 40 e Sodium 40 le Sodium MG MG 40 MG ReliOn ReliOn No BID ReliOn Prime Test Prime Test Prime Test - - - Losartan Losartan No Losartan Potassium Potassium Potassium 100 MG 100 MG 100 MG Losartan Losartan No 1{table QD Losartan Potassium Potassium t} Potassium 100 MG 100 MG 100 MG Venlafaxine Venlafaxine No 1{capsu QD Venlafaxin HCl ER 150 HCl ER 150 le_with e HCl ER MG MG _food} 150 MG ProAir HFA ProAir HFA No 2{puffs ProAir HFA 108 (90 108 (90 _as_nee 108 (90 Base) Base) ded} Base) MCG/ACT MCG/ACT MCG/ACT metFORMIN metFORMIN No metFORMIN HCl 500 MG HCl 500 MG HCl 500 MG Ferrous Ferrous No Ferrous Sulfate 325 Sulfate 325 Sulfate (65 Fe) MG (65 Fe) MG 325 (65 Fe) MG Venlafaxine Venlafaxine No Venlafaxin HCl 75 MG HCl 75 MG e HCl 75 MG Spironolact Spironolact No 1{table QD Spironolac one 25 MG one 25 MG t} tone 25 MG HYDROcodone HYDROcodone No 1{table HYDROcodon -Acetaminop -Acetaminop t_as_ne e-Acetamin hen 7.5-325 hen 7.5-325 eded} ophen MG MG 7.5-325 MG Diclofenac Diclofenac No BID Diclofenac Sodium 1 % Sodium 1 % Sodium 1 % Levothyroxi Levothyroxi No Levothyrox ne Sodium ne Sodium ine Sodium 100 MCG 100 MCG 100 MCG levothyroxi levothyroxi No 1capsul Q1D levothyrox [place] ne 100 mcg ne 100 mcg e(s) ine 100 Family capsule capsule mcg Practic Take 1 Take 1 capsule e capsule capsule Take 1 every day every day capsule by oral by oral every day route. route. by oral route. Verapamil Verapamil No Verapamil HCl ER 120 HCl ER 120 HCl ER 120 MG MG MG Temazepam Temazepam No 1{capsu QD Temazepam 30 MG 30 MG le_at_b 30 MG edtime_ as_need ed} metFORMIN metFORMIN No 1{table BID metFORMIN HCl 500 MG HCl 500 MG t_with_ HCl 500 MG a_meal} Atorvastati Atorvastati No 1{table QD Atorvastat n Calcium n Calcium t} in Calcium 40 MG 40 MG 40 MG OneTouch OneTouch No OneTouch Verio - Verio - Verio - Accu-Chek Accu-Chek No Accu-Chek FastClix FastClix FastClix Lancets - Lancets - Lancets - Breo Breo No 1{puff} BID Breo Ellipta Ellipta Ellipta 100-25 100-25 100-25 MCG/INH MCG/INH MCG/INH Verapamil Verapamil No 1{table QD Verapamil HCl ER 120 HCl ER 120 t} HCl ER 120 MG MG MG Levothyroxi Levothyroxi No QD Levothyrox ne Sodium ne Sodium ine Sodium 100 MCG 100 MCG 100 MCG Pantoprazol Pantoprazol No 1{table QD Pantoprazo e Sodium 40 e Sodium 40 t} le Sodium MG MG 40 MG metformin metformin No 1 Q1D metformin [place] 1,000 mg 1,000 mg 1,000 mg Fam joelle tablet Take tablet Take tablet Practic 1 tablet 1 tablet Take 1 e every day every day tablet by oral by oral every day route. route. by oral route. Atorvastati Atorvastati No Atorvastat n Calcium n Calcium in Calcium 40 MG 40 MG 40 MG rOPINIRole rOPINIRole No QD rOPINIRole HCl 2 MG HCl 2 MG HCl 2 MG QUEtiapine QUEtiapine No 1{table QD QUEtiapine Fumarate Fumarate t} Fumarate 200 MG 200 MG 200 MG CPAP CPAP No CPAP Machine max Machine max Machine pressure 9 pressure 9 max cm of water cm of water pressure 9 cm of water Pantoprazol Pantoprazol No 1{table QD Pantoprazo e Sodium 40 e Sodium 40 t} le Sodium MG MG 40 MG Vitamin C Vitamin C No Vitamin C Tumersaid Tumersaid No Tumersaid rOPINIRole rOPINIRole No QD rOPINIRole HCl 2 MG HCl 2 MG HCl 2 MG Losartan Losartan No 1{table QD Losartan Potassium Potassium t} Potassium 100 MG 100 MG 100 MG Verapamil Verapamil No 1{table QD Verapamil HCl ER 120 HCl ER 120 t} HCl ER 120 MG MG MG pantoprazol pantoprazol No 1 Q1D pantoprazo [place] e 40 mg e 40 mg le 40 mg Famil y tablet,brody tablet,brody tablet,del Practic yed release yed release ayed e Take 1 Take 1 release tablet tablet Take 1 every day every day tablet by oral by oral every day route. route. by oral route. CPAP CPAP No CPAP Machine max Machine max Machine pressure 9 pressure 9 max cm of water cm of water pressure 9 cm of water ReliOn ReliOn No BID ReliOn Prime Test Prime Test Prime Test - - - Losartan Losartan No Losartan Potassium Potassium Potassium 100 MG 100 MG 100 MG Temazepam Temazepam No 1{capsu QD Temazepam 30 MG 30 MG le_at_b 30 MG edtime_ as_need ed} Atorvastati Atorvastati No Atorvastat n Calcium n Calcium in Calcium 40 MG 40 MG 40 MG Verapamil Verapamil No Verapamil HCl ER 120 HCl ER 120 HCl ER 120 MG MG MG metFORMIN metFORMIN No metFORMIN HCl 500 MG HCl 500 MG HCl 500 MG Vitamin D3 Vitamin D3 No Vitamin D3 Ferrous Ferrous No Ferrous Sulfate 325 Sulfate 325 Sulfate (65 Fe) MG (65 Fe) MG 325 (65 Fe) MG Artemisia Artemisia No Artemisia Zinc 50 MG Zinc 50 MG No 1{table QD Zinc 50 MG t} Diclofenac Diclofenac No BID Diclofenac Sodium 1 % Sodium 1 % Sodium 1 % HYDROcodone HYDROcodone No 1{table HYDROcodon -Acetaminop -Acetaminop t_as_ne e-Acetamin hen 7.5-325 hen 7.5-325 eded} ophen MG MG 7.5-325 MG Levothyroxi Levothyroxi No QD Levothyrox ne Sodium ne Sodium ine Sodium 100 MCG 100 MCG 100 MCG metFORMIN metFORMIN No 1{table QD metFORMIN HCl 500 MG HCl 500 MG t_with_ HCl 500 MG a_meal} Breo Breo No 1{puff} BID Breo Ellipta Ellipta Ellipta 100-25 100-25 100-25 MCG/INH MCG/INH MCG/INH Pantoprazol Pantoprazol No Pantoprazo e Sodium 40 e Sodium 40 le Sodium MG MG 40 MG Accu-Chek Accu-Chek No Accu-Chek FastClix FastClix FastClix Lancets - Lancets - Lancets - OneTouch OneTouch No OneTouch Verio - Verio - Verio - Levothyroxi Levothyroxi No Levothyrox ne Sodium ne Sodium ine Sodium 100 MCG 100 MCG 100 MCG ProAir HFA ProAir HFA No 2{puffs ProAir HFA 108 (90 108 (90 _as_nee 108 (90 Base) Base) ded} Base) MCG/ACT MCG/ACT MCG/ACT QUEtiapine QUEtiapine No 1{table QD QUEtiapine Fumarate Fumarate t} Fumarate 200 MG 200 MG 200 MG Venlafaxine Venlafaxine No Venlafaxin HCl 75 MG HCl 75 MG e HCl 75 MG Ferrous Ferrous No 1{table BID Ferrous Sulfate 325 Sulfate 325 t} Sulfate (65 Fe) MG (65 Fe) MG 325 (65 Fe) MG Venlafaxine Venlafaxine No 1{table QD Venlafaxin HCl 75 MG HCl 75 MG t_with_ e HCl 75 food} MG Venlafaxine Venlafaxine No 1{capsu QD Venlafaxin HCl ER 150 HCl ER 150 le_with e HCl ER MG MG _food} 150 MG Atorvastati Atorvastati No 1{table QD Atorvastat n Calcium n Calcium t} in Calcium 40 MG 40 MG 40 MG Spironolact Spironolact No 1{table QD Spironolac one 25 MG one 25 MG t} tone 25 MG Temazepam Temazepam No 1{capsu QD Temazepam 30 MG 30 MG le_at_b 30 MG edtime_ as_need ed} Atorvastati Atorvastati No Atorvastat n Calcium n Calcium in Calcium 40 MG 40 MG 40 MG Verapamil Verapamil No Verapamil HCl ER 120 HCl ER 120 HCl ER 120 MG MG MG rOPINIRole rOPINIRole No QD rOPINIRole HCl 2 MG HCl 2 MG HCl 2 MG Vitamin C Vitamin C No Vitamin C Tumersaid Tumersaid No Tumersaid Vitamin D3 Vitamin D3 No Vitamin D3 CPAP CPAP No CPAP Machine max Machine max Machine pressure 9 pressure 9 max cm of water cm of water pressure 9 cm of water ReliOn ReliOn No BID ReliOn Prime Test Prime Test Prime Test - - - Losartan Losartan No Losartan Potassium Potassium Potassium 100 MG 100 MG 100 MG Artemisia Artemisia No Artemisia Accu-Chek Accu-Chek No Accu-Chek FastClix FastClix FastClix Lancets - Lancets - Lancets - metFORMIN metFORMIN No metFORMIN HCl 500 MG HCl 500 MG HCl 500 MG Levothyroxi Levothyroxi No Levothyrox ne Sodium ne Sodium ine Sodium 100 MCG 100 MCG 100 MCG Pantoprazol Pantoprazol No Pantoprazo e Sodium 40 e Sodium 40 le Sodium MG MG 40 MG Diclofenac Diclofenac No BID Diclofenac Sodium 1 % Sodium 1 % Sodium 1 % ProAir HFA ProAir HFA No 2{puffs ProAir HFA 108 (90 108 (90 _as_nee 108 (90 Base) Base) ded} Base) MCG/ACT MCG/ACT MCG/ACT Levothyroxi Levothyroxi No QD Levothyrox ne Sodium ne Sodium ine Sodium 100 MCG 100 MCG 100 MCG OneTouch OneTouch No OneTouch Verio - Verio - Verio - Ferrous Ferrous No Ferrous Sulfate 325 Sulfate 325 Sulfate (65 Fe) MG (65 Fe) MG 325 (65 Fe) MG Zinc 50 MG Zinc 50 MG No 1{table QD Zinc 50 MG t} metFORMIN metFORMIN No 1{table QD metFORMIN HCl 500 MG HCl 500 MG t_with_ HCl 500 MG a_meal} Losartan Losartan No 1{table QD Losartan Potassium Potassium t} Potassium 100 MG 100 MG 100 MG Verapamil Verapamil No 1{table QD Verapamil HCl ER 120 HCl ER 120 t} HCl ER 120 MG MG MG Breo Breo No 1{puff} BID Breo Ellipta Ellipta Ellipta 100-25 100-25 100-25 MCG/INH MCG/INH MCG/INH QUEtiapine QUEtiapine No 1{table QD QUEtiapine Fumarate Fumarate t} Fumarate 200 MG 200 MG 200 MG Venlafaxine Venlafaxine No Venlafaxin HCl 75 MG HCl 75 MG e HCl 75 MG HYDROcodone HYDROcodone No 1{table HYDROcodon -Acetaminop -Acetaminop t_as_ne e-Acetamin hen 7.5-325 hen 7.5-325 eded} ophen MG MG 7.5-325 MG Venlafaxine Venlafaxine No 1{table QD Venlafaxin HCl 75 MG HCl 75 MG t_with_ e HCl 75 food} MG Venlafaxine Venlafaxine No 1{capsu QD Venlafaxin HCl ER 150 HCl ER 150 le_with e HCl ER MG MG _food} 150 MG Atorvastati Atorvastati No 1{table QD Atorvastat n Calcium n Calcium t} in Calcium 40 MG 40 MG 40 MG Spironolact Spironolact No 1{table QD Spironolac one 25 MG one 25 MG t} tone 25 MG Verapamil Verapamil No 1{table QD Verapamil HCl ER 120 HCl ER 120 t} HCl ER 120 MG MG MG Venlafaxine Venlafaxine No 1{capsu QD Venlafaxin HCl ER 150 HCl ER 150 le_with e HCl ER MG MG _food} 150 MG Verapamil Verapamil No Verapamil HCl ER 120 HCl ER 120 HCl ER 120 MG MG MG OneTouch OneTouch No OneTouch Verio - Verio - Verio - Atorvastati Atorvastati No Atorvastat n Calcium n Calcium in Calcium 40 MG 40 MG 40 MG Tumersaid Tumersaid No Tumersaid Losartan Losartan No 1{table QD Losartan Potassium Potassium t} Potassium 100 MG 100 MG 100 MG metFORMIN metFORMIN No metFORMIN HCl 500 MG HCl 500 MG HCl 500 MG Ferrous Ferrous No 1{table BID Ferrous Sulfate 325 Sulfate 325 t} Sulfate (65 Fe) MG (65 Fe) MG 325 (65 Fe) MG Temazepam Temazepam No 1{capsu QD Temazepam 30 MG 30 MG le_at_b 30 MG edtime_ as_need ed} Vitamin D3 Vitamin D3 No Vitamin D3 Losartan Losartan No Losartan Potassium Potassium Potassium 100 MG 100 MG 100 MG Artemisia Artemisia No Artemisia Venlafaxine Venlafaxine No 1{table QD Venlafaxin HCl 75 MG HCl 75 MG t_with_ e HCl 75 food} MG Spironolact Spironolact No 1{table QD Spironolac one 25 MG one 25 MG t} tone 25 MG ProAir HFA ProAir HFA No 2{puffs ProAir HFA 108 (90 108 (90 _as_nee 108 (90 Base) Base) ded} Base) MCG/ACT MCG/ACT MCG/ACT Levothyroxi Levothyroxi No Levothyrox ne Sodium ne Sodium ine Sodium 100 MCG 100 MCG 100 MCG CPAP CPAP No CPAP Machine max Machine max Machine pressure 9 pressure 9 max cm of water cm of water pressure 9 cm of water Pantoprazol Pantoprazol No 1{table QD Pantoprazo e Sodium 40 e Sodium 40 t} le Sodium MG MG 40 MG rOPINIRole rOPINIRole No QD rOPINIRole HCl 2 MG HCl 2 MG HCl 2 MG Spironolact Spironolact No Spironolac one 25 MG one 25 MG tone 25 MG Accu-Chek Accu-Chek No Accu-Chek FastClix FastClix FastClix Lancets - Lancets - Lancets - Levothyroxi Levothyroxi No QD Levothyrox ne Sodium ne Sodium ine Sodium 100 MCG 100 MCG 100 MCG Venlafaxine Venlafaxine No Venlafaxin HCl 75 MG HCl 75 MG e HCl 75 MG ReliOn ReliOn No BID ReliOn Prime Test Prime Test Prime Test - - - Vitamin C Vitamin C No Vitamin C Atorvastati Atorvastati No 1{table QD Atorvastat n Calcium n Calcium t} in Calcium 40 MG 40 MG 40 MG Pantoprazol Pantoprazol No Pantoprazo e Sodium 40 e Sodium 40 le Sodium MG MG 40 MG Zinc 50 MG Zinc 50 MG No 1{table QD Zinc 50 MG t} metFORMIN metFORMIN No 1{table QD metFORMIN HCl 500 MG HCl 500 MG t_with_ HCl 500 MG a_meal} QUEtiapine QUEtiapine No 1{table QD QUEtiapine Fumarate Fumarate t} Fumarate 200 MG 200 MG 200 MG Ferrous Ferrous No Ferrous Sulfate 325 Sulfate 325 Sulfate (65 Fe) MG (65 Fe) MG 325 (65 Fe) MG Diclofenac Diclofenac No BID Diclofenac Sodium 1 % Sodium 1 % Sodium 1 % Breo Breo No 1{puff} BID Breo Ellipta Ellipta Ellipta 100-25 100-25 100-25 MCG/INH MCG/INH MCG/INH HYDROcodone HYDROcodone No 1{table HYDROcodon -Acetaminop -Acetaminop t_as_ne e-Acetamin hen 7.5-325 hen 7.5-325 eded} ophen MG MG 7.5-325 MG Temazepam Temazepam No 1{capsu QD Temazepam 30 MG 30 MG le_at_b 30 MG edtime_ as_need ed} Venlafaxine Venlafaxine No 1{capsu QD Venlafaxin HCl ER 150 HCl ER 150 le_with e HCl ER MG MG _food} 150 MG Ferrous Ferrous No 1{table BID Ferrous Sulfate 325 Sulfate 325 t} Sulfate (65 Fe) MG (65 Fe) MG 325 (65 Fe) MG Verapamil Verapamil No Verapamil HCl ER 120 HCl ER 120 HCl ER 120 MG MG MG Atorvastati Atorvastati No Atorvastat n Calcium n Calcium in Calcium 40 MG 40 MG 40 MG Losartan Losartan No Losartan Potassium Potassium Potassium 100 MG 100 MG 100 MG metFORMIN metFORMIN No metFORMIN HCl 500 MG HCl 500 MG HCl 500 MG Venlafaxine Venlafaxine No 1{table QD Venlafaxin HCl 75 MG HCl 75 MG t_with_ e HCl 75 food} MG Losartan Losartan No 1{table QD Losartan Potassium Potassium t} Potassium 100 MG 100 MG 100 MG Vitamin D3 Vitamin D3 No Vitamin D3 ProAir HFA ProAir HFA No 2{puffs ProAir HFA 108 (90 108 (90 _as_nee 108 (90 Base) Base) ded} Base) MCG/ACT MCG/ACT MCG/ACT Artemisia Artemisia No Artemisia ReliOn ReliOn No BID ReliOn Prime Test Prime Test Prime Test - - - Spironolact Spironolact No 1{table QD Spironolac one 25 MG one 25 MG t} tone 25 MG Atorvastati Atorvastati No 1{table QD Atorvastat n Calcium n Calcium t} in Calcium 40 MG 40 MG 40 MG Venlafaxine Venlafaxine No Venlafaxin HCl 75 MG HCl 75 MG e HCl 75 MG CPAP CPAP No CPAP Machine max Machine max Machine pressure 9 pressure 9 max cm of water cm of water pressure 9 cm of water rOPINIRole rOPINIRole No QD rOPINIRole HCl 2 MG HCl 2 MG HCl 2 MG Zinc 50 MG Zinc 50 MG No 1{table QD Zinc 50 MG t} Accu-Chek Accu-Chek No Accu-Chek FastClix FastClix FastClix Lancets - Lancets - Lancets - metFORMIN metFORMIN No 1{table QD metFORMIN HCl 500 MG HCl 500 MG t_with_ HCl 500 MG a_meal} Spironolact Spironolact No Spironolac one 25 MG one 25 MG tone 25 MG Levothyroxi Levothyroxi No Levothyrox ne Sodium ne Sodium ine Sodium 100 MCG 100 MCG 100 MCG Vitamin C Vitamin C No Vitamin C Tumersaid Tumersaid No Tumersaid Pantoprazol Pantoprazol No Pantoprazo e Sodium 40 e Sodium 40 le Sodium MG MG 40 MG OneTouch OneTouch No OneTouch Verio - Verio - Verio - Pantoprazol Pantoprazol No 1{table QD Pantoprazo e Sodium 40 e Sodium 40 t} le Sodium MG MG 40 MG QUEtiapine QUEtiapine No 1{table QD QUEtiapine Fumarate Fumarate t} Fumarate 200 MG 200 MG 200 MG Ferrous Ferrous No Ferrous Sulfate 325 Sulfate 325 Sulfate (65 Fe) MG (65 Fe) MG 325 (65 Fe) MG Diclofenac Diclofenac No BID Diclofenac Sodium 1 % Sodium 1 % Sodium 1 % Breo Breo No 1{puff} BID Breo Ellipta Ellipta Ellipta 100-25 100-25 100-25 MCG/INH MCG/INH MCG/INH HYDROcodone HYDROcodone No 1{table HYDROcodon -Acetaminop -Acetaminop t_as_ne e-Acetamin hen 7.5-325 hen 7.5-325 eded} ophen MG MG 7.5-325 MG metFORMIN metFORMIN No metFORMIN HCl 500 MG HCl 500 MG HCl 500 MG OneTouch OneTouch No OneTouch Verio - Verio - Verio - Spironolact Spironolact No 1{table QD Spironolac one 25 MG one 25 MG t} tone 25 MG Accu-Chek Accu-Chek No Accu-Chek FastClix FastClix FastClix Lancets - Lancets - Lancets - Levothyroxi Levothyroxi No Levothyrox ne Sodium ne Sodium ine Sodium 100 MCG 100 MCG 100 MCG Atorvastati Atorvastati No 1{table QD Atorvastat n Calcium n Calcium t} in Calcium 40 MG 40 MG 40 MG Breo Breo No 1{puff} BID Breo Ellipta Ellipta Ellipta 100-25 100-25 100-25 MCG/INH MCG/INH MCG/INH Pantoprazol Pantoprazol No Pantoprazo e Sodium 40 e Sodium 40 le Sodium MG MG 40 MG Venlafaxine Venlafaxine No 1{table QD Venlafaxin HCl 75 MG HCl 75 MG t_with_ e HCl 75 food} MG Losartan Losartan No Losartan Potassium Potassium Potassium 100 MG 100 MG 100 MG Venlafaxine Venlafaxine No Venlafaxin HCl 75 MG HCl 75 MG e HCl 75 MG Venlafaxine Venlafaxine No 1{capsu QD Venlafaxin HCl ER 150 HCl ER 150 le_with e HCl ER MG MG _food} 150 MG ReliOn ReliOn No BID ReliOn Prime Test Prime Test Prime Test - - - Ferrous Ferrous No 1{table BID Ferrous Sulfate 325 Sulfate 325 t} Sulfate (65 Fe) MG (65 Fe) MG 325 (65 Fe) MG Ferrous Ferrous No Ferrous Sulfate 325 Sulfate 325 Sulfate (65 Fe) MG (65 Fe) MG 325 (65 Fe) MG Spironolact Spironolact No Spironolac one 25 MG one 25 MG tone 25 MG ProAir HFA ProAir HFA No 2{puffs ProAir HFA 108 (90 108 (90 _as_nee 108 (90 Base) Base) ded} Base) MCG/ACT MCG/ACT MCG/ACT Losartan Losartan No 1{table QD Losartan Potassium Potassium t} Potassium 100 MG 100 MG 100 MG QUEtiapine QUEtiapine No 1{table QD QUEtiapine Fumarate Fumarate t} Fumarate 200 MG 200 MG 200 MG rOPINIRole rOPINIRole No QD rOPINIRole HCl 2 MG HCl 2 MG HCl 2 MG Vitamin D3 Vitamin D3 No Vitamin D3 Pantoprazol Pantoprazol No 1{table QD Pantoprazo e Sodium 40 e Sodium 40 t} le Sodium MG MG 40 MG Verapamil Verapamil No Verapamil HCl ER 120 HCl ER 120 HCl ER 120 MG MG MG Atorvastati Atorvastati No Atorvastat n Calcium n Calcium in Calcium 40 MG 40 MG 40 MG CPAP CPAP No CPAP Machine max Machine max Machine pressure 9 pressure 9 max cm of water cm of water pressure 9 cm of water Diclofenac Diclofenac No BID Diclofenac Sodium 1 % Sodium 1 % Sodium 1 % HYDROcodone HYDROcodone No 1{table HYDROcodon -Acetaminop -Acetaminop t_as_ne e-Acetamin hen 7.5-325 hen 7.5-325 eded} ophen MG MG 7.5-325 MG Verapamil Verapamil No 1{table QD Verapamil HCl ER 120 HCl ER 120 t} HCl ER 120 MG MG MG Zinc 50 MG Zinc 50 MG No 1{table QD Zinc 50 MG t} metFORMIN metFORMIN No 1{table QD metFORMIN HCl 500 MG HCl 500 MG t_with_ HCl 500 MG a_meal} Levothyroxi Levothyroxi No QD Levothyrox ne Sodium ne Sodium ine Sodium 100 MCG 100 MCG 100 MCG Artemisia Artemisia No Artemisia Temazepam Temazepam No 1{capsu QD Temazepam 30 MG 30 MG le_at_b 30 MG edtime_ as_need ed} Vitamin C Vitamin C No Vitamin C Tumersaid Tumersaid No Tumersaid Accu-Chek Accu-Chek No Accu-Chek FastClix FastClix FastClix Lancets - Lancets - Lancets - OneTouch OneTouch No OneTouch Verio - Verio - Verio - Spironolact Spironolact No 1{table QD Spironolac one 25 MG one 25 MG t} tone 25 MG metFORMIN metFORMIN No 1{table QD metFORMIN HCl 500 MG HCl 500 MG t_with_ HCl 500 MG a_meal} Levothyroxi Levothyroxi No Levothyrox ne Sodium ne Sodium ine Sodium 100 MCG 100 MCG 100 MCG Atorvastati Atorvastati No 1{table QD Atorvastat n Calcium n Calcium t} in Calcium 40 MG 40 MG 40 MG Losartan Losartan No Losartan Potassium Potassium Potassium 100 MG 100 MG 100 MG Pantoprazol Pantoprazol No Pantoprazo e Sodium 40 e Sodium 40 le Sodium MG MG 40 MG Venlafaxine Venlafaxine No 1{table QD Venlafaxin HCl 75 MG HCl 75 MG t_with_ e HCl 75 food} MG metFORMIN metFORMIN No metFORMIN HCl 500 MG HCl 500 MG HCl 500 MG Venlafaxine Venlafaxine No Venlafaxin HCl 75 MG HCl 75 MG e HCl 75 MG Venlafaxine Venlafaxine No 1{capsu QD Venlafaxin HCl ER 150 HCl ER 150 le_with e HCl ER MG MG _food} 150 MG ReliOn ReliOn No BID ReliOn Prime Test Prime Test Prime Test - - - Breo Breo No 1{puff} BID Breo Ellipta Ellipta Ellipta 100-25 100-25 100-25 MCG/INH MCG/INH MCG/INH Spironolact Spironolact No Spironolac one 25 MG one 25 MG tone 25 MG ProAir HFA ProAir HFA No 2{puffs ProAir HFA 108 (90 108 (90 _as_nee 108 (90 Base) Base) ded} Base) MCG/ACT MCG/ACT MCG/ACT Losartan Losartan No 1{table QD Losartan Potassium Potassium t} Potassium 100 MG 100 MG 100 MG rOPINIRole rOPINIRole No QD rOPINIRole HCl 2 MG HCl 2 MG HCl 2 MG Levothyroxi Levothyroxi No QD Levothyrox ne Sodium ne Sodium ine Sodium 100 MCG 100 MCG 100 MCG Vitamin D3 Vitamin D3 No Vitamin D3 CPAP CPAP No CPAP Machine max Machine max Machine pressure 9 pressure 9 max cm of water cm of water pressure 9 cm of water Verapamil Verapamil No Verapamil HCl ER 120 HCl ER 120 HCl ER 120 MG MG MG Ferrous Ferrous No Ferrous Sulfate 325 Sulfate 325 Sulfate (65 Fe) MG (65 Fe) MG 325 (65 Fe) MG QUEtiapine QUEtiapine No 1{table QD QUEtiapine Fumarate Fumarate t} Fumarate 200 MG 200 MG 200 MG Diclofenac Diclofenac No BID Diclofenac Sodium 1 % Sodium 1 % Sodium 1 % HYDROcodone HYDROcodone No 1{table HYDROcodon -Acetaminop -Acetaminop t_as_ne e-Acetamin hen 7.5-325 hen 7.5-325 eded} ophen MG MG 7.5-325 MG Verapamil Verapamil No 1{table QD Verapamil HCl ER 120 HCl ER 120 t} HCl ER 120 MG MG MG Zinc 50 MG Zinc 50 MG No 1{table QD Zinc 50 MG t} Pantoprazol Pantoprazol No 1{table QD Pantoprazo e Sodium 40 e Sodium 40 t} le Sodium MG MG 40 MG Atorvastati Atorvastati No Atorvastat n Calcium n Calcium in Calcium 40 MG 40 MG 40 MG Artemisia Artemisia No Artemisia Temazepam Temazepam No 1{capsu QD Temazepam 30 MG 30 MG le_at_b 30 MG edtime_ as_need ed} Vitamin C Vitamin C No Vitamin C Tumersaid Tumersaid No Tumersaid Losartan Losartan No Losartan Potassium Potassium Potassium 100 MG 100 MG 100 MG Spironolact Spironolact No Spironolac one 25 MG one 25 MG tone 25 MG Venlafaxine Venlafaxine No 1{table QD Venlafaxin HCl 75 MG HCl 75 MG t_with_ e HCl 75 food} MG Accu-Chek Accu-Chek No Accu-Chek FastClix FastClix FastClix Lancets - Lancets - Lancets - Venlafaxine Venlafaxine No Venlafaxin HCl 75 MG HCl 75 MG e HCl 75 MG Venlafaxine Venlafaxine No 1{capsu QD Venlafaxin HCl ER 150 HCl ER 150 le_with e HCl ER MG MG _food} 150 MG Diclofenac Diclofenac No BID Diclofenac Sodium 1 % Sodium 1 % Sodium 1 % Losartan Losartan No 1{table QD Losartan Potassium Potassium t} Potassium 100 MG 100 MG 100 MG Breo Breo No 1{puff} BID Breo Ellipta Ellipta Ellipta 100-25 100-25 100-25 MCG/INH MCG/INH MCG/INH ReliOn ReliOn No BID ReliOn Prime Test Prime Test Prime Test - - - ProAir HFA ProAir HFA No 2{puffs ProAir HFA 108 (90 108 (90 _as_nee 108 (90 Base) Base) ded} Base) MCG/ACT MCG/ACT MCG/ACT metFORMIN metFORMIN No metFORMIN HCl 500 MG HCl 500 MG HCl 500 MG Verapamil Verapamil No Verapamil HCl ER 120 HCl ER 120 HCl ER 120 MG MG MG Verapamil Verapamil No 1{table QD Verapamil HCl ER 120 HCl ER 120 t} HCl ER 120 MG MG MG Atorvastati Atorvastati No 1{table QD Atorvastat n Calcium n Calcium t} in Calcium 40 MG 40 MG 40 MG Levothyroxi Levothyroxi No QD Levothyrox ne Sodium ne Sodium ine Sodium 100 MCG 100 MCG 100 MCG Atorvastati Atorvastati No Atorvastat n Calcium n Calcium in Calcium 40 MG 40 MG 40 MG Vitamin D3 Vitamin D3 No Vitamin D3 QUEtiapine QUEtiapine No 1{table QD QUEtiapine Fumarate Fumarate t} Fumarate 200 MG 200 MG 200 MG Levothyroxi Levothyroxi No Levothyrox ne Sodium ne Sodium ine Sodium 100 MCG 100 MCG 100 MCG Zinc 50 MG Zinc 50 MG No 1{table QD Zinc 50 MG t} rOPINIRole rOPINIRole No QD rOPINIRole HCl 2 MG HCl 2 MG HCl 2 MG HYDROcodone HYDROcodone No 1{table HYDROcodon -Acetaminop -Acetaminop t_as_ne e-Acetamin hen 7.5-325 hen 7.5-325 eded} ophen MG MG 7.5-325 MG OneTouch OneTouch No OneTouch Verio - Verio - Verio - Spironolact Spironolact No 1{table QD Spironolac one 25 MG one 25 MG t} tone 25 MG Pantoprazol Pantoprazol No Pantoprazo e Sodium 40 e Sodium 40 le Sodium MG MG 40 MG CPAP CPAP No CPAP Machine max Machine max Machine pressure 9 pressure 9 max cm of water cm of water pressure 9 cm of water Ferrous Ferrous No Ferrous Sulfate 325 Sulfate 325 Sulfate (65 Fe) MG (65 Fe) MG 325 (65 Fe) MG Artemisia Artemisia No Artemisia Temazepam Temazepam No 1{capsu QD Temazepam 30 MG 30 MG le_at_b 30 MG edtime_ as_need ed} Vitamin C Vitamin C No Vitamin C Tumersaid Tumersaid No Tumersaid Losartan Losartan No Losartan Potassium Potassium Potassium 100 MG 100 MG 100 MG Spironolact Spironolact No Spironolac one 25 MG one 25 MG tone 25 MG Venlafaxine Venlafaxine No 1{table QD Venlafaxin HCl 75 MG HCl 75 MG t_with_ e HCl 75 food} MG Accu-Chek Accu-Chek No Accu-Chek FastClix FastClix FastClix Lancets - Lancets - Lancets - Venlafaxine Venlafaxine No Venlafaxin HCl 75 MG HCl 75 MG e HCl 75 MG Venlafaxine Venlafaxine No 1{capsu QD Venlafaxin HCl ER 150 HCl ER 150 le_with e HCl ER MG MG _food} 150 MG Diclofenac Diclofenac No BID Diclofenac Sodium 1 % Sodium 1 % Sodium 1 % Losartan Losartan No 1{table QD Losartan Potassium Potassium t} Potassium 100 MG 100 MG 100 MG Breo Breo No 1{puff} BID Breo Ellipta Ellipta Ellipta 100-25 100-25 100-25 MCG/INH MCG/INH MCG/INH ReliOn ReliOn No BID ReliOn Prime Test Prime Test Prime Test - - - ProAir HFA ProAir HFA No 2{puffs ProAir HFA 108 (90 108 (90 _as_nee 108 (90 Base) Base) ded} Base) MCG/ACT MCG/ACT MCG/ACT metFORMIN metFORMIN No metFORMIN HCl 500 MG HCl 500 MG HCl 500 MG Verapamil Verapamil No Verapamil HCl ER 120 HCl ER 120 HCl ER 120 MG MG MG Verapamil Verapamil No 1{table QD Verapamil HCl ER 120 HCl ER 120 t} HCl ER 120 MG MG MG Atorvastati Atorvastati No 1{table QD Atorvastat n Calcium n Calcium t} in Calcium 40 MG 40 MG 40 MG Levothyroxi Levothyroxi No QD Levothyrox ne Sodium ne Sodium ine Sodium 100 MCG 100 MCG 100 MCG Atorvastati Atorvastati No Atorvastat n Calcium n Calcium in Calcium 40 MG 40 MG 40 MG Vitamin D3 Vitamin D3 No Vitamin D3 QUEtiapine QUEtiapine No 1{table QD QUEtiapine Fumarate Fumarate t} Fumarate 200 MG 200 MG 200 MG Levothyroxi Levothyroxi No Levothyrox ne Sodium ne Sodium ine Sodium 100 MCG 100 MCG 100 MCG Zinc 50 MG Zinc 50 MG No 1{table QD Zinc 50 MG t} rOPINIRole rOPINIRole No QD rOPINIRole HCl 2 MG HCl 2 MG HCl 2 MG HYDROcodone HYDROcodone No 1{table HYDROcodon -Acetaminop -Acetaminop t_as_ne e-Acetamin hen 7.5-325 hen 7.5-325 eded} ophen MG MG 7.5-325 MG OneTouch OneTouch No OneTouch Verio - Verio - Verio - Spironolact Spironolact No 1{table QD Spironolac one 25 MG one 25 MG t} tone 25 MG Pantoprazol Pantoprazol No Pantoprazo e Sodium 40 e Sodium 40 le Sodium MG MG 40 MG CPAP CPAP No CPAP Machine max Machine max Machine pressure 9 pressure 9 max cm of water cm of water pressure 9 cm of water Ferrous Ferrous No Ferrous Sulfate 325 Sulfate 325 Sulfate (65 Fe) MG (65 Fe) MG 325 (65 Fe) MG Artemisia Artemisia No Artemisia Temazepam Temazepam No 1{capsu QD Temazepam 30 MG 30 MG le_at_b 30 MG edtime_ as_need ed} Vitamin C Vitamin C No Vitamin C Tumersaid Tumersaid No Tumersaid QUEtiapine QUEtiapine No 1{table QD QUEtiapine Fumarate Fumarate t} Fumarate 200 MG 200 MG 200 MG Spironolact Spironolact No Spironolac one 25 MG one 25 MG tone 25 MG ProAir HFA ProAir HFA No 2{puffs ProAir HFA 108 (90 108 (90 _as_nee 108 (90 Base) Base) ded} Base) MCG/ACT MCG/ACT MCG/ACT metFORMIN metFORMIN No metFORMIN HCl 500 MG HCl 500 MG HCl 500 MG Zinc 50 MG Zinc 50 MG No 1{table QD Zinc 50 MG t} Levothyroxi Levothyroxi No QD Levothyrox ne Sodium ne Sodium ine Sodium 100 MCG 100 MCG 100 MCG Levothyroxi Levothyroxi No Levothyrox ne Sodium ne Sodium ine Sodium 100 MCG 100 MCG 100 MCG rOPINIRole rOPINIRole No QD rOPINIRole HCl 2 MG HCl 2 MG HCl 2 MG Ferrous Ferrous No Ferrous Sulfate 325 Sulfate 325 Sulfate (65 Fe) MG (65 Fe) MG 325 (65 Fe) MG Benzonatate Benzonatate No 1{capsu Benzonatat 200 MG 200 MG le_as_n e 200 MG eeded} Breo Breo No 1{puff} BID Breo Ellipta Ellipta Ellipta 100-25 100-25 100-25 MCG/INH MCG/INH MCG/INH OneTouch OneTouch No OneTouch Verio - Verio - Verio - Temazepam Temazepam No 1{capsu QD Temazepam 30 MG 30 MG le_at_b 30 MG edtime_ as_need ed} CPAP CPAP No CPAP Machine max Machine max Machine pressure 9 pressure 9 max cm of water cm of water pressure 9 cm of water Accu-Chek Accu-Chek No Accu-Chek FastClix FastClix FastClix Lancets - Lancets - Lancets - Atorvastati Atorvastati No Atorvastat n Calcium n Calcium in Calcium 40 MG 40 MG 40 MG Tumersaid Tumersaid No Tumersaid Diclofenac Diclofenac No BID Diclofenac Sodium 1 % Sodium 1 % Sodium 1 % Venlafaxine Venlafaxine No 1{capsu QD Venlafaxin HCl ER 150 HCl ER 150 le_with e HCl ER MG MG _food} 150 MG Vitamin C Vitamin C No Vitamin C HYDROcodone HYDROcodone No 1{table HYDROcodon -Acetaminop -Acetaminop t_as_ne e-Acetamin hen 7.5-325 hen 7.5-325 eded} ophen MG MG 7.5-325 MG methylPREDN methylPREDN No QD methylPRED ISolone 4 ISolone 4 NISolone 4 MG MG MG Verapamil Verapamil No Verapamil HCl ER 120 HCl ER 120 HCl ER 120 MG MG MG Artemisia Artemisia No Artemisia ReliOn ReliOn No BID ReliOn Prime Test Prime Test Prime Test - - - Losartan Losartan No Losartan Potassium Potassium Potassium 100 MG 100 MG 100 MG Azithromyci Azithromyci No QD Azithromyc n 250 MG n 250 MG in 250 MG Vitamin D3 Vitamin D3 No Vitamin D3 Venlafaxine Venlafaxine No Venlafaxin HCl 75 MG HCl 75 MG e HCl 75 MG Pantoprazol Pantoprazol No Pantoprazo e Sodium 40 e Sodium 40 le Sodium MG MG 40 MG QUEtiapine QUEtiapine No 1{table QD QUEtiapine Fumarate Fumarate t} Fumarate 200 MG 200 MG 200 MG Spironolact Spironolact No Spironolac one 25 MG one 25 MG tone 25 MG ProAir HFA ProAir HFA No 2{puffs ProAir HFA 108 (90 108 (90 _as_nee 108 (90 Base) Base) ded} Base) MCG/ACT MCG/ACT MCG/ACT metFORMIN metFORMIN No metFORMIN HCl 500 MG HCl 500 MG HCl 500 MG Zinc 50 MG Zinc 50 MG No 1{table QD Zinc 50 MG t} Levothyroxi Levothyroxi No QD Levothyrox ne Sodium ne Sodium ine Sodium 100 MCG 100 MCG 100 MCG Levothyroxi Levothyroxi No Levothyrox ne Sodium ne Sodium ine Sodium 100 MCG 100 MCG 100 MCG rOPINIRole rOPINIRole No QD rOPINIRole HCl 2 MG HCl 2 MG HCl 2 MG Ferrous Ferrous No Ferrous Sulfate 325 Sulfate 325 Sulfate (65 Fe) MG (65 Fe) MG 325 (65 Fe) MG Benzonatate Benzonatate No 1{capsu Benzonatat 200 MG 200 MG le_as_n e 200 MG eeded} Breo Breo No 1{puff} BID Breo Ellipta Ellipta Ellipta 100-25 100-25 100-25 MCG/INH MCG/INH MCG/INH OneTouch OneTouch No OneTouch Verio - Verio - Verio - Temazepam Temazepam No 1{capsu QD Temazepam 30 MG 30 MG le_at_b 30 MG edtime_ as_need ed} CPAP CPAP No CPAP Machine max Machine max Machine pressure 9 pressure 9 max cm of water cm of water pressure 9 cm of water Accu-Chek Accu-Chek No Accu-Chek FastClix FastClix FastClix Lancets - Lancets - Lancets - Atorvastati Atorvastati No Atorvastat n Calcium n Calcium in Calcium 40 MG 40 MG 40 MG Tumersaid Tumersaid No Tumersaid Diclofenac Diclofenac No BID Diclofenac Sodium 1 % Sodium 1 % Sodium 1 % Venlafaxine Venlafaxine No 1{capsu QD Venlafaxin HCl ER 150 HCl ER 150 le_with e HCl ER MG MG _food} 150 MG Vitamin C Vitamin C No Vitamin C HYDROcodone HYDROcodone No 1{table HYDROcodon -Acetaminop -Acetaminop t_as_ne e-Acetamin hen 7.5-325 hen 7.5-325 eded} ophen MG MG 7.5-325 MG methylPREDN methylPREDN No QD methylPRED ISolone 4 ISolone 4 NISolone 4 MG MG MG Verapamil Verapamil No Verapamil HCl ER 120 HCl ER 120 HCl ER 120 MG MG MG Artemisia Artemisia No Artemisia ReliOn ReliOn No BID ReliOn Prime Test Prime Test Prime Test - - - Losartan Losartan No Losartan Potassium Potassium Potassium 100 MG 100 MG 100 MG Azithromyci Azithromyci No QD Azithromyc n 250 MG n 250 MG in 250 MG Vitamin D3 Vitamin D3 No Vitamin D3 Venlafaxine Venlafaxine No Venlafaxin HCl 75 MG HCl 75 MG e HCl 75 MG Pantoprazol Pantoprazol No Pantoprazo e Sodium 40 e Sodium 40 le Sodium MG MG 40 MG QUEtiapine QUEtiapine No 1{table QD QUEtiapine Fumarate Fumarate t} Fumarate 200 MG 200 MG 200 MG Benzonatate Benzonatate No Benzonatat 200 MG 200 MG e 200 MG QUEtiapine QUEtiapine No 1{table QD QUEtiapine Fumarate Fumarate t} Fumarate 200 MG 200 MG 200 MG Atorvastati Atorvastati No 1{table QD Atorvastat n Calcium n Calcium t} in Calcium 40 MG 40 MG 40 MG Tumersaid Tumersaid No Tumersaid Trelegy Trelegy No Trelegy Ellipta Ellipta Ellipta Breo Breo No 1{puff} BID Breo Ellipta Ellipta Ellipta 100-25 100-25 100-25 MCG/INH MCG/INH MCG/INH Verapamil Verapamil No 1{table QD Verapamil HCl ER 120 HCl ER 120 t} HCl ER 120 MG MG MG Azithromyci Azithromyci No QD Azithromyc n 250 MG n 250 MG in 250 MG Levothyroxi Levothyroxi No QD Levothyrox ne Sodium ne Sodium ine Sodium 100 MCG 100 MCG 100 MCG Spironolact Spironolact No Spironolac one 25 MG one 25 MG tone 25 MG Losartan Losartan No 1{table QD Losartan Potassium Potassium t} Potassium 100 MG 100 MG 100 MG methylPREDN methylPREDN No QD methylPRED ISolone 4 ISolone 4 NISolone 4 MG MG MG CPAP CPAP No CPAP Machine max Machine max Machine pressure 9 pressure 9 max cm of water cm of water pressure 9 cm of water ReliOn ReliOn No BID ReliOn Prime Test Prime Test Prime Test - - - Pantoprazol Pantoprazol No 1{table QD Pantoprazo e Sodium 40 e Sodium 40 t} le Sodium MG MG 40 MG Temazepam Temazepam No 1{capsu QD Temazepam 30 MG 30 MG le_at_b 30 MG edtime_ as_need ed} Spironolact Spironolact No Spironolac one 25 MG one 25 MG tone 25 MG rOPINIRole rOPINIRole No QD rOPINIRole HCl 2 MG HCl 2 MG HCl 2 MG Vitamin D3 Vitamin D3 No Vitamin D3 ProAir HFA ProAir HFA No 2{puffs ProAir HFA 108 (90 108 (90 _as_nee 108 (90 Base) Base) ded} Base) MCG/ACT MCG/ACT MCG/ACT metFORMIN metFORMIN No 1{table QD metFORMIN HCl 500 MG HCl 500 MG t_with_ HCl 500 MG a_meal} Zinc 50 MG Zinc 50 MG No 1{table QD Zinc 50 MG t} Venlafaxine Venlafaxine No 1{capsu QD Venlafaxin HCl ER 150 HCl ER 150 le_with e HCl ER MG MG _food} 150 MG Spironolact Spironolact No 1{table QD Spironolac one 25 MG one 25 MG t} tone 25 MG Venlafaxine Venlafaxine No Venlafaxin HCl 75 MG HCl 75 MG e HCl 75 MG Losartan Losartan No Losartan Potassium Potassium Potassium 100 MG 100 MG 100 MG Pantoprazol Pantoprazol No Pantoprazo e Sodium 40 e Sodium 40 le Sodium MG MG 40 MG Venlafaxine Venlafaxine No 1{table QD Venlafaxin HCl 75 MG HCl 75 MG t_with_ e HCl 75 food} MG Ferrous Ferrous No 1{table BID Ferrous Sulfate 325 Sulfate 325 t} Sulfate (65 Fe) MG (65 Fe) MG 325 (65 Fe) MG Atorvastati Atorvastati No Atorvastat n Calcium n Calcium in Calcium 40 MG 40 MG 40 MG metFORMIN metFORMIN No metFORMIN HCl 500 MG HCl 500 MG HCl 500 MG OneTouch OneTouch No OneTouch Verio - Verio - Verio - Accu-Chek Accu-Chek No Accu-Chek FastClix FastClix FastClix Lancets - Lancets - Lancets - Levothyroxi Levothyroxi No Levothyrox ne Sodium ne Sodium ine Sodium 100 MCG 100 MCG 100 MCG Ferrous Ferrous No Ferrous Sulfate 325 Sulfate 325 Sulfate (65 Fe) MG (65 Fe) MG 325 (65 Fe) MG ProAir HFA ProAir HFA No 2{puffs ProAir HFA 108 (90 108 (90 _as_nee 108 (90 Base) Base) ded} Base) MCG/ACT MCG/ACT MCG/ACT Verapamil Verapamil No Verapamil HCl ER 120 HCl ER 120 HCl ER 120 MG MG MG Diclofenac Diclofenac No BID Diclofenac Sodium 1 % Sodium 1 % Sodium 1 % metFORMIN metFORMIN No metFORMIN HCl 500 MG HCl 500 MG HCl 500 MG Vitamin C Vitamin C No Vitamin C HYDROcodone HYDROcodone No 1{table HYDROcodon -Acetaminop -Acetaminop t_as_ne e-Acetamin hen 7.5-325 hen 7.5-325 eded} ophen MG MG 7.5-325 MG Zinc 50 MG Zinc 50 MG No 1{table QD Zinc 50 MG t} Artemisia Artemisia No Artemisia Levothyroxi Levothyroxi No QD Levothyrox ne Sodium ne Sodium ine Sodium 100 MCG 100 MCG 100 MCG Levothyroxi Levothyroxi No Levothyrox ne Sodium ne Sodium ine Sodium 100 MCG 100 MCG 100 MCG rOPINIRole rOPINIRole No QD rOPINIRole HCl 2 MG HCl 2 MG HCl 2 MG Ferrous Ferrous No Ferrous Sulfate 325 Sulfate 325 Sulfate (65 Fe) MG (65 Fe) MG 325 (65 Fe) MG Benzonatate Benzonatate No 1{capsu Benzonatat 200 MG 200 MG le_as_n e 200 MG eeded} Breo Breo No 1{puff} BID Breo Ellipta Ellipta Ellipta 100-25 100-25 100-25 MCG/INH MCG/INH MCG/INH OneTouch OneTouch No OneTouch Verio - Verio - Verio - Temazepam Temazepam No 1{capsu QD Temazepam 30 MG 30 MG le_at_b 30 MG edtime_ as_need ed} CPAP CPAP No CPAP Machine max Machine max Machine pressure 9 pressure 9 max cm of water cm of water pressure 9 cm of water Immunizations Ordered Filled Immunization Date Status Comments Sourc e Immunization Name Name SARS-COV-2 COVID-19 2021-08-17 Completed Unive [facility]ity of [facility]NA [facility] 00:00:00 [facility] VACCINE Branch SARS-COV-2 COVID-19 2021-08-17 Completed Unive rsity of MODERNA BOOSTER 00:00:00 [facility] VACCINE Branch SARS-COV-2 COVID-19 2021-08-17 Completed Unive rsity of MODERNA BOOSTER 00:00:00 [facility] VACCINE Branch SARS-COV-2 COVID-19 2021-08-17 Completed Unive rsity of MODERNA BOOSTER 00:00:00 [facility] VACCINE Branch Afluria Afluria 2021-07-23 [facility]pleted [facility] Afluria Afluria 2021-07-23 Completed [facility] 11:[facility]:00 [facility] Afluria Afluria 2021-07-23 Completed [facility] 11:00:00 [facility] Afluria Afluria 2021-07-23 Completed [facility] 11:00:00 [facility] Afluria Afluria 2021-07-23 Completed [facility] 11:00:00 [facility] Afluria Afluria 2021-07-23 Completed [facility] 11:00:00 [facility] Afluria Afluria 2021-07-23 Completed [facility] 11:00:00 [facility] Afluria Afluria 2021-07-23 Completed [facility] 11:00:00 [facility] Afluria Afluria 2021-07-23 Completed [facility] 11:00:00 [facility] Afluria Afluria 2021-07-23 Completed [facility] 11:00:00 [facility] Afluria Afluria 2021-07-23 Completed [facility] 11:00:00 [facility] Afluria Afluria 2021-07-23 Completed [facility] 11:00:00 [facility] Afluria Afluria 2021-07-23 Completed [facility] 11:00:00 [facility] Afluria Afluria 2021-07-23 Completed [facility] 11:00:00 [facility] Afluria Afluria 2021-07-23 Completed [facility] 11:00:00 [facility] Afluria Afluria 2021-07-23 Completed [facility] 11:[facility]:00 [facility] Afluria Afluria 2021-07-23 Completed [facility] 11:[facility]:00 [facility] influenza, influenza, 2020-07-23 Completed [facility]able, injectable, 00:00:00 [facility] quadrivalent quadrivalent Shingrix Shingrix 2020-06-17 Completed [facility] - 15:05:00 [facility] Shingrix Shingrix 2020-06-17 Completed [facility] 15:05:00 [facility] Shingrix Shingrix 2020-06-17 Completed [facility] 15:05:00 [facility] Shingrix Shingrix 2020-06-17 Completed [facility] 15:05:00 [facility] Shingrix Shingrix 2020-06-17 Completed [facility] 15:05:00 [facility] Shingrix Shingrix 2020-06-17 Completed [facility] 15:05:00 [facility] Shingrix Shingrix 2020-06-17 Completed [facility] 15:05:00 [facility] Shingrix Shingrix 2020-06-17 Completed [facility] 15:05:00 [facility] Shingrix Shingrix 2020-06-17 Completed [facility] 15:05:00 [facility] Shingrix Shingrix 2020-06-17 Completed [facility] 15:05:00 [facility] Shingrix Shingrix 2020-06-17 Completed [facility] 15:05:00 [facility] Shingrix Shingrix 2020-06-17 Completed [facility] 15:05:00 [facility] Shingrix Shingrix 2020-06-17 Completed [facility] 15:05:00 [facility] Shingrix Shingrix 2020-06-17 Completed [facility] 15:05:00 [facility] Shingrix Shingrix 2020-06-17 Completed [facility] 15:05:00 [facility] Shingrix Shingrix 2020-06-17 Completed [facility] 15:05:00 [facility] Shingrix Shingrix 2020-06-17 Completed [facility] 15:05:00 [facility] Shingrix Shingrix 2020-06-17 Completed [facility] 15:05:00 [facility] Afluria single dose Afluria single dose 2020-06-16 Completed [facility] 15:05:00 [facility] Afluria single dose Afluria single dose 2020-06-16 Completed [facility] 15:05:00 [facility] Afluria single dose Afluria single dose 2020-06-16 Completed [facility] 15:05:00 [facility] Afluria single dose Afluria single dose 2020-06-16 Completed [facility] 15:05:00 [facility] Afluria single dose Afluria single dose 2020-06-16 Completed [facility] 15:05:00 [facility] Afluria single dose Afluria single dose 2020-06-16 Completed [facility] 15:05:00 [facility] Afluria single dose Afluria single dose 2020-06-16 Completed [facility] 15:05:00 [facility] Afluria single dose Afluria single dose 2020-06-16 Completed [facility] 15:05:00 [facility] Afluria single dose Afluria single dose 2020-06-16 Completed [facility] 15:05:00 [facility] Afluria single dose Afluria single dose 2020-06-16 Completed [facility] 15:05:00 [facility] Afluria single dose Afluria single dose 2020-06-16 Completed [facility] 15:05:00 [facility] Afluria single dose Afluria single dose 2020-06-16 Completed [facility] 15:05:00 [facility] Afluria single dose Afluria single dose 2020-06-16 Completed [facility] 15:05:00 [facility] Afluria single dose Afluria single dose 2020-06-16 Completed [facility] 15:05:00 [facility] Afluria single dose Afluria single dose 2020-06-16 Completed [facility] 15:05:00 [facility] Afluria single dose Afluria single dose 2020-06-16 Completed [facility] 15:05:00 [facility] Afluria single dose Afluria single dose 2020-06-16 Completed [facility] 15:05:00 [facility] Afluria single dose Afluria single dose 2020-06-16 Completed [facility] 15:05:00 [facility] Fluzone Fluzone 2019-08-01 Completed [facility] 15:06:00 [facility] Fluzone Fluzone 2019-08-01 Completed [facility] 15:06:00 [facility] Fluzone Fluzone 2019-08-01 Completed [facility] - 15:06:00 [facility] Fluzone Fluzone 2019-08-01 Completed [facility] 15:06:00 [facility] Fluzone Fluzone 2019-08-01 Completed [facility] 15:06:00 [facility] Fluzone Fluzone 2019-08-01 Completed [facility] 15:06:00 [facility] Fluzone Fluzone 2019-08-01 Completed [facility] 15:06:00 [facility] Fluzone Fluzone 2019-08-01 Completed [facility] 15:06:00 [facility] Fluzone Fluzone 2019-08-01 Completed [facility] 15:06:00 [facility] Fluzone Fluzone 2019-08-01 Completed [facility] 15:06:00 [facility] Fluzone Fluzone 2019-08-01 Completed [facility] 15:06:00 [facility] Fluzone Fluzone 2019-08-01 Completed [facility] 15:06:00 [facility] Fluzone Fluzone 2019-08-01 Completed [facility] 15:06:00 [facility] Fluzone Fluzone 2019-08-01 Completed [facility] 15:06:00 [facility] Fluzone Fluzone 2019-08-01 Completed [facility] 15:06:00 [facility] Fluzone Fluzone 2019-08-01 Completed [facility] 15:06:00 [facility] Fluzone Fluzone 2019-08-01 Completed [facility] 15:06:00 [facility] Fluzone Fluzone 2019-08-01 Completed [facility] 15:06:00 [facility] Pneumococcal 2019-01-08 Completed University o f Polysaccharide, [...] Completed University o f Polysaccharide, 00:00:00 [facility] ical PPSV23 (PNEUMOVAX) Branch Pneumococcal 2019-01-08 Completed [facility] Polysaccharide, 00:00[facility]00 [facility] PPSV23 (PNEUMOVAX) [facility] Pneumococcal 2019-01-08 Completed [facility] o [facility] Polysaccharide, 00:00:00 [place] [facility] PPSV23 (PNEUMOVAX) [facility] Pneumococcal 2019-01-08 Completed [facility] o f Polysaccharide, 00:00:00 [place] [facility] PPSV23 (PNEUMOVAX) Branch [facility] 2018-11-28 Completed [facility] - (Triamcinolone) (Triamcinolone) 15:20:00 [facility] 2018-11-28 Completed [facility] - (Triamcinolone) (Triamcinolone) 15:20:00 [facility] Vital Signs Vital Name Observation Time Observation Value Comments Source height 2022-09-22 15:10:00 62 [in_i] [facility] weight 2022-09-22 15:10:00 223.5 [lb_av] [facility] temperature 2022-09-22 15:10:00 97.5 [degF] [facility] bmi 2022-09-22 15:10:00 40.87 kg/m2 [facility] oximetry 2022-09-22 15:10:00 96 % [facility] respiratory rate 2022-09-22 15:10:00 17 /min [facility] on [facility] blood pressure 2022-09-22 15:10:00 131 mm[Hg] [facility] - systolic [facility] blood pressure 2022-09-22 15:10:00 67 mm[Hg] [facility] - diastolic [facility] height 2022-07-20 08:00:00 62 [in_i] [facility] weight 2022-07-20 08:00:00 227 [lb_av] [facility] bmi 2022-07-20 08:00:00 41.51 kg/m2 [facility] height 2022-06-08 14:20:00 62 [in_i] [facility] weight 2022-06-08 14:20:00 227 [lb_av] [facility] temperature 2022-06-08 14:20:00 98 [degF] [facility] bmi 2022-06-08 14:20:00 41.51 kg/m2 [facility] blood pressure 2022-06-08 14:20:00 130 mm[Hg] [facility] - systolic [facility] blood pressure 2022-06-08 14:20:00 67 mm[Hg] [facility] - diastolic [facility] height 2022-02-15 14:30:00 62 [in_i] [facility] weight 2022-02-15 14:30:00 229.5 [lb_av] [facility] temperature 2022-02-15 14:30:00 97.3 [degF] [facility] bmi 2022-02-15 14:30:00 41.97 kg/m2 [facility] oximetry 2022-02-15 14:30:00 97 % [facility] respiratory rate 2022-02-15 14:30:00 17 /min [facility] blood pressure 2022-02-15 14:30:00 135 mm[Hg] [facility] - systolic [facility] blood pressure 2022-02-15 14:30:00 77 mm[Hg] [facility] - diastolic [facility] height 2021-11-16 11:10:00 62 [in_i] [facility] weight 2021-11-16 11:10:00 234.5 [lb_av] [facility] temperature 2021-11-16 11:10:00 96.4 [degF] [facility] bmi 2021-11-16 11:10:00 42.89 kg/m2 [facility] 2021-11-16 11:10:00 95 % [facility] respiratory rate 2021-11-16 11:10:00 17 /min [facility] on [facility] blood pressure 2021-11-16 11:10:00 132 mm[Hg] [facility] - systolic [facility] blood pressure 2021-11-16 11:10:00 67 mm[Hg] [facility] - diastolic [facility] height 2021-11-16 11:00:00 62 [in_i] [facility] weight 2021-11-16 11:00:00 234.5 [lb_av] [facility] temperature 2021-11-16 11:00:00 96.4 [degF] [facility] bmi 2021-11-16 11:00:00 42.89 kg/m2 [facility] oximetry 2021-11-16 11:00:00 95 % [facility] respiratory rate 2021-11-16 11:00:00 17 /min [facility] on [facility] blood pressure 2021-11-16 11:00:00 132 mm[Hg] [facility] - systolic [facility] blood pressure 2021-11-16 11:00:00 67 mm[Hg] [facility] - diastolic [facility] respiratory rate 2021-08-16 11:00:00 18 /min [facility] blood pressure 2021-08-16 11:00:00 137 mm[Hg] [facility] - systolic [facility] blood pressure 2021-08-16 11:00:00 86 mm[Hg] [facility] - diastolic [facility] height 2021-08-16 11:00:00 62 [in_i] [facility] weight 2021-08-16 11:00:00 237.9 [lb_av] [facility] temperature 2021-08-16 11:00:00 97.1 [degF] [facility] bmi 2021-08-16 11:00:00 43.51 kg/m2 [facility] oximetry 2021-08-16 11:00:00 96 % [facility] Systolic blood 2021-07-29 18:49:00 135 mm[Hg] Univer sity of pressure [facility] Diastolic blood 2021-07-29 18:49:00 83 mm[Hg] Unive rsity of [facility] Heart rate 2021-07-29 18:49:00 72 /min [facility] Body temperature 2021-07-29 18:49:00 36.56 Macarena Univ ers[facility] of [facility] Respiratory rate 2021-07-29 18:49:00 20 /min Univ ers[facility] of [facility] Body height 2021-07-29 18:49:00 157.5 cm [facility] Body weight 2021-07-29 18:49:00 107.049 kg [facility] BMI 2021-07-29 18:49:00 43.16 kg/m2 [facility] Oxygen saturation in 2021-07-29 18:49:00 96 /min [facility] Arterial blood by [facility] Pulse oximetry Branch Systolic blood 2020-10-22 17:08:00 132 mm[Hg] Univer sity of pressure [facility] Diastolic blood 2020-10-22 17:08:00 80 mm[Hg] Unive rsity of pressure [facility] Heart rate 2020-10-22 17:07:00 73 /min [facility] Systolic blood 2020-10-22 17:08:00 132 mm[Hg] Univer sity of pressure [facility] Diastolic blood 2020-10-22 17:08:00 80 mm[Hg] Unive rsity of pressure [facility] Heart rate 2020-10-22 17:07:00 73 /min [facility]i [facility] Systolic blood 2020-04-24 15:41:00 132 mm[Hg] Univer sity of pressure [facility] Diastolic blood 2020-04-24 15:41:00 82 mm[Hg] Unive rsity of pressure [facility] Heart rate 2020-04-24 15:41:00 71 /min [facility] Body height 2020-04-24 15:41:00 157.5 cm [facility] Body weight 2020-04-24 15:41:00 109.317 kg [facility] BMI 2020-04-24 15:41:00 44.08 kg/m2 [facility] Systolic blood 2020-04-20 20:12:00 136 mm[Hg] Univer sity of pressure [facility] Diastolic blood 2020-04-20 20:12:00 88 mm[Hg] Unive rsity of pressure [facility] Heart rate 2020-04-20 20:08:00 80 /min [facility]i ty of [facility] Body weight 2020-04-20 20:08:00 112.492 kg [facility] BMI 2020-04-20 20:08:00 45.36 kg/m2 [facility] Systolic blood 2020-01-01 15:55:00 123 mm[Hg] Univer sity of pressure [facility] Diastolic blood 2020-01-01 15:55:00 80 mm[Hg] Unive rsity of pressure [facility] Heart rate 2020-01-01 15:55:00 83 /min [facility] Body height 2020-01-01 15:55:00 157.5 cm [facility]i [facility] Body weight 2020-01-01 15:55:00 112.492 kg [facility] BMI 2020-01-01 15:55:00 45.36 kg/m2 [facility] Systolic blood 2019-12-24 19:21:00 113 mm[Hg] Univer sity of pressure [facility] Diastolic blood 2019-12-24 19:21:00 84 mm[Hg] Unive rsity of pressure [facility] Body height 2019-12-24 19:21:00 157.5 cm [facility] Body weight 2019-12-24 19:21:00 112.492 kg [facility] BMI 2019-12-24 19:21:00 45.36 kg/m2 [facility] Body height 2019-12-17 19:15:00 157.5 cm [facility] Body weight 2019-12-17 19:15:00 112.492 kg [facility] BMI 2019-12-17 19:15:00 45.36 kg/m2 [facility] Systolic blood 2019-12-12 17:00:00 123 mm[Hg] Univer sity of pressure [facility] Diastolic blood 2019-12-12 17:00:00 58 mm[Hg] Unive rsity of pressure [facility] Heart rate 2019-12-12 17:00:00 67 /min [facility] Body temperature 2019-12-12 17:00:00 36.89 Macarena Univ [facility] Respiratory rate 2019-12-12 17:00:00 18 /min [facility] Oxygen saturation in 2019-12-12 17:00:00 94 /min University of Arterial blood by [employer] Pulse oximetry Branch Body height 2019-12-06 17:00:00 157.5 cm [facility] Body weight 2019-12-06 17:00:00 112.492 kg [facility] BMI 2019-12-06 17:00:00 45.36 kg/m2 [facility] Systolic blood 2019-01-01 15:28:00 129 mm[Hg] Univer sity of pressure [facility] Diastolic blood 2019-01-01 15:28:00 80 mm[Hg] Unive rsity of pressure [facility] Heart rate 2019-01-01 15:28:00 68 /min [facility] Respiratory rate 2019-01-01 15:28:00 20 /min [facility] Body height 2019-01-01 15:28:00 157.5 cm [facility] Body weight 2019-01-01 15:28:00 110.36 kg [facility] BMI 2019-01-01 15:28:00 44.50 kg/m2 [facility] Oxygen saturation in 2019-01-01 15:28:00 97 /min [facility] of Arterial blood by [employer] Pulse oximetry Branch Systolic blood 2019-11-14 20:56:00 124 mm[Hg] Univer sity of pressure [facility] Diastolic blood 2019-11-14 20:56:00 72 mm[Hg] [facility] Heart rate 2019-11-14 20:56:00 77 /min [facility] Body height 2019-11-14 20:56:00 157.5 cm [facility] Body weight 2019-11-14 20:56:00 109.317 kg [facility] BMI 2019-11-14 20:56:00 44.08 kg/m2 [facility] Procedures Procedure Date / Time Performing Clinician Source Performed DEXA AXIAL (HIP AND 2022-02-09 20:42:00 Requisition, [facility] SPINE) Medical Branch ASSIGNMENT OF BENEFITS 2022-02-09 19:39:03 Doctor Unassigned, [facility] AUTHORIZATION FOR RELEASE 2022-01-19 05:01:00 Doctor Unassigned, [facility] SARS-COV-2 COVID-19 2021-08-17 18:27:50 [facility] VACCINE BOOSTER,0.25ML,IM [facility] (MODERNA) XR CHEST 2 VW 2021-07-29 19:11:12 Katerina Azul [place] [facility] ASSIGNMENT OF BENEFITS 2021-07-29 18:44:44 Doctor Unassigned, [facility] INSURANCE CORRESPONDENCE 2020-11-27 06:01:00 Doctor Eduardo, [facility] BI DIAGNOSTIC MAMMOGRAM 2020-09-04 20:23:40 Iban Claros [facility] BILATERAL Medical Branch RADIOLOGY DOCUMENTATION 2020-09-04 06:01:00 Doctor Unassmolly, [facility] RADIOLOGY DOCUMENTATION 2020-08-19 05:01:00 Doctor Unassmolly, [facility] AUTHORIZATION TO RELEASE 2020-07-23 05:01:00 Doctor [place], [facility] PHI TO [facility] CBC WITH DIFFERENTIAL 2020-04-20 20:58:00 Jeanie Olivares [facility] [facility] [place] XR KNEE <3 VW LEFT 2020-04-20 18:44:02 Jeanie Olivares y [facility] HEALTH - OTHER 2020-01-10 05:01:00 Doctor [facility] XR KNEE <3 VW LEFT 2019-12-24 19:22:41 Madhav Cam [facility] HOME HEALTH 485 2019-12-13 06:01:00 Doctor Unassigned, [facility] [place] POCT GLUCOSE (AUTOMATED) 2019-12-12 17:18:00 Jeanie Olivares [facility] POCT GLUCOSE (AUTOMATED) 2019-12-12 13:36:00 Jeanie Olivares [facility] POCT GLUCOSE (AUTOMATED) 2019-12-12 02:35:00 Jeanie Olivares [facility] POCT GLUCOSE (AUTOMATED) 2019-12-11 21:29:00 Jeanie Olivares [facility] POCT GLUCOSE (AUTOMATED) 2019-12-11 17:49:00 Jeanie Olivares [facility] POCT GLUCOSE (AUTOMATED) 2019-12-11 13:37:00 Jeanie Olivares [facility] POCT GLUCOSE (AUTOMATED) 2019-12-11 01:35:00 Jeanie Olivares [facility] POCT GLUCOSE (AUTOMATED) 2019-12-10 22:04:00 Jeanie Olivares [facility] POCT GLUCOSE (AUTOMATED) 2019-12-10 13:27:00 Jeanie Olivares [facility] BASIC METABOLIC PANEL 2019-12-10 11:03:00 Alicia Cummings [facility] (NA, K, CL, CO2, GLUCOSE, Medica l Branch BUN, CREATININE, CA) CBC WITH DIFFERENTIAL 2019-12-10 11:03:00 Alicia Cummings Un [facility] POCT GLUCOSE (AUTOMATED) 2019-12-10 01:34:00 Jeanie Olivares [facility] POCT GLUCOSE (AUTOMATED) 2019-12-09 23:29:00 Jeanie [facility] GLYCOSYLATED HEMOGLOBIN 2019-12-09 21:54:00 Alicia Cummings [facility] (A1C) [facility] XR KNEE <3 VW LEFT 2019-12-09 17:24:03 Jeanie Olivares [facility] acute hospital NERVE BLOCK 2019-12-09 16:23:03 O [facility] Mabel Armenta [facility] TOTAL KNEE ARTHROPLASTY 2019-12-09 14:00:00 Jeanie Olivares Un [facility] HB ABO GROUPING 2019-12-09 13:41:00 Jeanie Olivares [facility] POCT GLUCOSE(AGE >30DAYS) 2019-12-09 13:38:00 [place] Pa [facility] HOSPITAL ADMISSION 2019-12-09 06:01:00 Doctor Unassigned, [facility] ASSIGNMENT OF BENEFITS 2019-12-06 20:12:00 Doctor Un[place], [facility] Name [facility] MEDICAL RELEASE/CLEARANCE 2019-12-02 06:01:00 Doctor Eduardo, [facility] FORMS [facility] REFERRAL- 2019-11-29 06:01:00 Doctor Eduardo, [facility] REQUEST/RESPONSE [facility] [place] INSURANCE CORRESPONDENCE 2019-11-15 06:01:00 Doctor Unassigned, [facility] [place] XR KNEE <3 VW LEFT 2019-11-14 21:28:52 Madhav Cam [facility] REFERRAL- 2019-11-04 06:01:00 Doctor Eduardo, [facility] REQUEST/RESPONSE [facility] EKG-12 LEAD 2019-01-01 15:46:22 [facility] Plan of Care Planned Activity Planned Date Details Comments Source Instructions [facility] Family Practice Encounters Start End Encounter Admission Attending Care Care Encounter Source Date/Time Date/Time Type Type Clinicians Facility Department ID 2022-09-22 Outpatient FarrisNAKUL liu [facility] [id number] Common 14:11:00 [facility] 2022-09-21 Outpatient FarrisNAKUL [facility] [id number] Common 09:39:00 [facility] 2022-07-19 Outpatient Farris, STLMLC STLC [id number] Common 15:25:00 Reji [facility] 2022-07-18 Outpatient Farris, STLMLC STLMLC [id number] Common 16:46:00 Reji [facility] 2022-06-07 Outpatient Farris, STLMLC STLMLC [id number] Common 15:03:00 Re[facility] 2021-11-17 Outpatient Farris, STLMLC STLC [id number] Common 14:39:28 [facility] 2021-11-17 Outpatient Farris, STLMLC STLC [id number] Common 14:03:56 [facility] 2021-11-17 Outpatient Farris, STLMLC STLC [id number] Common 14:00:52 Re[facility] 2021-11-17 Outpatient Farris, STLMLC STLC [id number] Common 13:58:35 [facility] 2021-11-17 Outpatient Farris, STLMLC STLC [id number] Common 13:57:02 Re[facility] 2021-11-17 Outpatient Farris, STLMLC STLC [id number] Common 13:06:10 Re[facility] 2021-11-17 Outpatient Farris, STLMLC STLC [id number] Common 12:34:42 Reji 83725 [facility] 2021-11-17 Outpatient Farris, STLMLC STLC [id number] Common 12:33:57 Reji [facility] 2021-11-17 Outpatient Farris, STLMLC STLC [id number] Common 12:09:48 Reji 74818 [facility] 2021-11-17 Outpatient Farris, STLMLC STLC [id number] Common 11:22:51 Reji 47771 [facility] 2021-11-17 Outpatient Farris, STLMLC STLMLC [id number] Common 11:17:29 Reji 27363 [facility] 2021-11-17 Outpatient Farris, STLMLC STLMLC [id number] Common 11:05:43 Reji 13380 [facility] 2021-11-17 Outpatient Farris, STLMLC STLMLC [id number] Common 11:01:56 Reji 79234 [facility] 2022-10-06 2022-10-06 Outpatient R RADIOLOGY [facility] [id number] Univers 00:00:00 00:00:00 ity [facility] 2022-09-22 2022-09-22 OFFICE STLMLC STLMLC [id number] Co mmon 00:00:00 00:00:00 VISIT [facility] ESTAB PT - [facility] LEVEL 4 [facility] 2022-09-05 2022-09-05 Outpatient [facility] [id number] Devoted 00:00:00 00:00:00 [id number] Medica l Group 2022-07-20 2022-07-20 OFFICE STLMLC STLMLC [id number] Co mmon 00:00:00 00:00:00 VISIT EST Spir it PT LEVEL [address] [facility] 2022-07-19 2022-07-19 (TEL) STLMLC STLMLC [id number] Co mmon 00:00:00 00:00:00 [facility] 2022-06-24 2022-06-24 (TEL) STLMLC STLMLC [id number] Co mmon 00:00:00 00:00:00 [facility] 2022-06-16 2022-06-16 (TEL) STLMLC STLMLC [id number] Co mmon 00:00:00 00:00:00 [facility] 2022-06-13 2022-06-13 (TEL) STLMLC STLMLC [id number] Co mmon 00:00:00 00:00:00 [facility] 2022-06-08 2022-06-08 (TELEAUD) STLMLC STLMLC [id number] Common 00:00:00 00:00:00 AUDIO Spirit TELEMEDICI - [facility]I NE [facility] 2022-06-06 2022-06-06 (TEL) STLMLC STLMLC [id number] Co mmon 00:00:00 00:00:[address] [facility] 2022-05-19 2022-05-19 (TEL) STLMLC STLMLC [id number] Co mmon 00:00:00 00:00:00 [facility] 2022-04-01 2022-04-01 (TEL) STLMLC STLMLC [id number] Co mmon 00:00:00 00:00:00 [facility] 2022-02-15 2022-02-15 OFFICE STLMLC STLMLC [id number] Co mmon 00:00:00 00:00:00 VISIT [facility] ESTAB PT - [facility]I LEVEL 4 [facility] 2022-02-09 2022-02-09 Outpatient R RADIOLOGY [facility] [id number] Univers 14:41:40 23:59:00 ity of [facility] 2022-02-09 2022-02-09 Hospital Radiology [facility] 1.2.840.114 [id number] Univers 14:41:40 23:59:00 Encounter [place] 350.1.13.10 ity of [place] 4.2.7.2.686 [facility] [phone] [facility] 800 Branch 2022-02-09 2022-02-09 Orders Doctor BREA 1.2.840.114 [id number] Univers 00:00:00 00:00:00 Only Unassigned, KARIN 350.1.13.10 ity of [facility] 4.2.7.2.686 Franco as [phone] [facility] 009 Branch 2022-01-19 2022-01-19 Orders Doctor BREA 1.2.840.114 [id number] Univers 00:00:00 00:00:00 Only Unassigned, KARIN 350.1.13.10 ity of [facility] 4.2.7.2.686 Franco as [phone] [facility] 009 Branch 2021-12-19 2021-12-19 (WEB) STLMLC STLMLC [id number] Co mmon 00:00:00 00:00:00 Spirit - [facility] 2021-11-16 2021-11-16 OFFICE STLMLC STLMLC [id number] Co mmon 00:00:00 00:00:00 VISIT Spirit ESTAB PT - CHI LEVEL 4 [facility] 2021-11-16 2021-11-16 SUB ANNUAL STLMLC STLMLC [id number] Common 00:00:00 00:00:00 MCR Spirit WELLNESS - CHI VISIT [facility] 2021-08-17 2021-08-17 Outpatient [facility] [id number] Univers 14:00:00 14:00:00 ity [facility] 2021-08-17 2021-08-17 Imm/Inj Nurse, Adc Pob Immunization [facility] 1.2.840.114 [id number] Univers 13:26:44 13:26:58 Visit Larry Banerjee 350.1.13 .10 ity [facility] 4.2.7.2.686 [place] [phone] Dc dical [facility] [address] [facility] 2021-08-16 2021-08-16 Outpatient [facility] [id number] Univers 16:10:00 16:10:00 ity [facility] 2021-08-16 2021-08-16 OFFICE STLMLC STLC [id number] Co mmon 00:00:00 00:00:00 VISIT Spirit ESTAB PT - CHI LEVEL 4 [facility] 2021-07-31 2021-07-31 Letter BREA Chanel 1.2.840.114 [id number] Univers 00:00:00 00:00:00 (Out) Elissa FRAZIER 350.1.13.10 it y of [facility] 4.2.7.2.686 Franco as [phone] [address] 2021-07-29 2021-07-29 [facility] 1.2.615.504 [id number] Univers 13:59:13 23:59:00 Encounter [facility] 350.1.13.10 ity [facility] 4.2.7.2.686 Franco as Matthew?Blea [phone] Me dicjose marques [address] [place] [facility] 2021-07-29 2021-07-29 Urgent Katerina Azul [facility] 1.2.840.114 [id number] Univers 13:44:55 14:13:54 Care Rhett, [facility] 350.1.13.10 ity of [place] 4.2.7.2.686 Franco as Matthew?Blea [phone] Dc dicjose marques [address] [place] [facility] 2021-07-29 2021-07-29 Outpatient R RHETT [facility] [id number] Univers 13:45:00 13:45:00 LOVE ity [facility] 2021-07-29 2021-07-29 (TEL) [facility] [id number] Co mmon 00:00:00 00:00:00 [facility] 2021-07-29 2021-07-29 Orders Doctor BREA 1.2.840.114 [id number] Univers 00:00:00 00:00:00 Only Unassigned, KARIN 350.1.13.10 ity of [place] [facility] 4.2.7.2.686 Franco as [phone] [address] 2021-07-29 2021-07-29 Telephone Pcp, [facility] 1.2.008.735 [id number] Univers 00:00:00 00:00:00 Patient Health 350.1.13.10 it y of Does Not Surgical [place].2.7.2.686 [place] Specialti [phone] Dc dicjose es 370 [facility] 2021-07-02 2021-07-02 Outpatient STLC STLC [id number] Common 00:00:00 00:00:00 [facility] 2021-05-14 2021-05-14 [facility] [id number] Common 00:00:00 00:00:00 [facility] 2021-04-08 2021-04-08 Outpatient Miller_S_AH VFP VFP [id number] [facility] 04:53:00 04:53:00 [id number] Family Practic e 2021-03-09 2021-03-09 Outpatient Lorraine-Mbayo VFP VFP [id number] Village 04:44:00 04:44:00 _A_ [id number] Family Practic e 2021-02-16 2021-02-16 Outpatient STLMLC STLMLC [id number] Common 00:00:00 00:00:00 [facility] 2021-01-26 2021-01-26 Outpatient STLMLC STLMLC [id number] Common 00:00:00 00:00:00 [facility] 2021-01-14 2021-01-14 Outpatient STLMLC STLMLC [id number] Common 00:00:00 00:00:00 [facility] 2020-12-30 2020-12-30 [facility] 1.2.840.114 [id number] Univers 00:00:00 00:00:00 Outreach [facility] 350.1.13.10 i [facility] 4.2.7.2.686 Paz WARD [phone] [facility] 2020 Outpatient [facility] [id number] Univers 14:30:00 14:30:00 [facility] 2020-12-21 2020-12-21 Outpatient STLMLC STLMLC [id number] Common 00:00:00 00:00:00 [facility] 2020-12-07 2020-12-07 Outpatient [facility] [id number] Univers 10:00:00 10:00:00 [facility] 2020-11-30 2020-11-30 Outpatient Mo [facility] [id number] Univers 11:00:00 11:00:00 [facility] 2020-11-30 2020-11-30 Outpatient STLMLC STLMLC [id number] Common 00:00:00 00:00:00 [facility] 2020-11-30 2020-11-30 Outpatient STLMLC STLMLC [id number] Common 00:00:00 00:00:00 [facility] 2020-11-27 2020-11-27 Orders Doctor BREA 1.2.840.114 [id number] Univers 00:00:00 00:00:00 Only Unassigned, KARIN 350.1.13.10 ity of [facility] 4.2.7.2.686 Franco as [phone] [address] 2020-11-23 2020-11-23 Outpatient STLMLC STLMLC [id number] Common 00:00:00 00:00:00 [facility] 2020-10-22 2020-10-22 Outpatient [facility] [id number] Univers 16:00:00 16:00:00 JEANIE [facility] 2020-10-22 2020-10-22 Office CamMadhav [facility] 1.2.840.114 [id number] Univers 10:58:24 11:13:24 Visit OlivaresJeanie romero [facility] 350.1.13.10 ity of Surgical 4.2.7.2.686 [place] as Specialti [phone] Me dical es 198 [facility] 2020-10-22 2020-10-22 Office [facility] 1.2.840.114 [id number] 10:58:24 11:13:24 Visit [facility] 350.1.13.10 Surgical 4.2.7.2.686 Specialti [phone] es 198 [place] 2020-10-19 2020-10-19 Refill [facility] 1.2.840.114 [id number] Univers 00:00:00 00:00:00 [facility] 350.1.13.10 it y of Surgical 4.2.7.2.686 [place] as Specialti [phone] Me dical es 198 [facility] 2020-09-22 2020-09-22 Outpatient Mo [facility] [id number] Univers 13:00:00 13:00:00 ROSSANA russo [facility] 2020-09-22 2020-09-22 Outpatient STLMLC STLMLC [id number] Common 00:00:00 00:00:00 [facility] 2020-09-16 2020-09-16 Outpatient STLMLC STLMLC [id number] Common 00:00:00 00:00:00 [facility] 2020-09-15 2020-09-15 [facility] 1.2.840.114 [id number] Univers 14:18:23 23:59:00 Encounter Rossana S SPECIALTY 350.1.13.10 ity of C[place].2.[place] [phone] Dc dicjose GONGORA 800 [facility] 2020-09-15 2020-09-15 [facility] 1.2.840.114 [id number] Univers 14:17:33 14:17:33 Encounter Rossana S SPECIALTY 350.1.13.10 it[place] of C[place].7.2.[place] [phone] Dc wilma GONOGRA 800 [facility] 2020-09-15 2020-09-[address] [facility] [id number] Univers 00:00:00 00:00:00 ROSSANA russo [facility] 2020-09-14 2020-09-14 [facility] 1.2.840.114 [id number] Univers 00:00:00 00:00:00 [facility] 350.1.13.10 it y of Surgical 4.2.7.2.686 Franco as Specialti [phone] Dc dical es 198 [facility] 2020-09-04 2020-09-04 [facility] 1.2.840.114 [id number] Univers 14:23:39 23:59:00 Encounter Iban A SPECIALTY 350.1.13.10 ity of CARE [place]2.7.2.686 [place] [phone] Dc dicjose AGUILARY 802 [facility] 2020-09-04 2020-09-04 Outpatient R [facility] [id number] Univers 14:23:39 14:23:39 IBAN russo [facility] 2020-09-04 2020-09-04 [facility] 1.2.840.114 [id number] Univers 00:00:00 00:00:00 Management Iban Martinez [place] 350.1.13.10 it[place] of [place].7.2.686 [place] Profess[place] [phone] Me dical nal [address] [facility] 2020-09-04 2020-09-04 Orders Doctor BREA 1.2.840.114 [id number] Univers 00:00:00 00:00:00 Only Unassigned, KARIN 350.1.13.10 ity of [facility] 4.2.7.2.686 Franco as [phone] [address] 2020-09-02 2020-09-02 Outpatient STLMLC STLC [id number] Common 00:00:00 00:00:00 Spirit - [facility] 2020-08-27 2020-08-27 [facility] OlivaresCount includes the [facility] 1.2.785.896 [id number] Univers 00:00:00 00:00:00 [facility] 350.1.13.10 it y of Surgical 4.2.7.2.686 [place] as Specialti [phone] Me dical es 198 [facility] 2020-08-25 2020-08-25 Outpatient [facility] [id number] [facility] 01:08:00 01:08:00 _J_AH 25723 Family Practic e 2020-08-19 2020-08-19 Orders Doctor BREA 1.2.840.114 [id number] Univers 00:00:00 00:00:00 Only Unassigned, KARIN 350.1.13.10 ity of [facility] 4.2.7.2.686 Franco as [phone] [address] 2020-08-18 2020-08-18 Outpatient R [facility] [id number] Univers 16:00:00 16:00:00 ROSSANA ity [facility] 2020-08-10 2020-08-10 Angle [facility] [place] - [id number] V illage 00:00:00 00:00:00 [facility] 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, [address] [address], [place] [address] , Ph. 2020-08-04 2020-08-04 Outpatient R [facility] [id number] Univers 14:15:00 14:15:00 ROSSANA ity [facility] 2020-07-23 2020-07-23 Outpatient STLMLC STLMLC [id number] Common 00:00:00 00:00:00 [facility] 2020-07-23 2020-07-23 Orders Doctor BREA 1.2.840.114 [id number] Univers 00:00:00 00:00:00 Only Unassigned, KARIN 350.1.13.10 ity [facility] 4.2.7.2.686 Franco as [phone] [address] 2020-07-14 2020-07-14 Outpatient STLMLC STLMLC [id number] Common 00:00:00 00:00:00 [facility] 2020-06-18 2020-06-18 [facility] [id number] Common 14:13:00 14:13:[address] Sp[address] [facility] 2020-06-17 2020-06-17 Outpatient [facility] [id number] Common 11:15:00 11:15:[address] Sp[address] [facility] 2020-06-17 2020-06-17 Outpatient [facility] [id number] Common 10:40:00 10:40:[address] Sp[address] [facility] 2020-06-16 2020-06-16 Outpatient [facility] [id number] Common 13:34:00 13:34:[address] Sp[address] [facility] 2020-06-08 2020-06-08 Outpatient [facility] [id number] Common 14:55:00 14:55:[address] Sp[address] [facility] 2020-05-25 2020-05-25 Outpatient Mo OLIVARES [facility] [id number] Univers 14:00:00 14:00:00 JEANIE ity [facility] 2020-04-28 2020-04-28 Outpatient [facility] [id number] Common 16:48:00 16:48:[address] Sp[address] [facility] 2020-04-24 2020-04-24 Office [facility] 1.2.485.089 [id number] Univers 10:15:34 10:56:19 Visit Jeanie Solorzano 350.1.13.10 it y of Surgical 4.2.7.2.686 [place] as Specialti [phone] Dc dical es 198 [facility] 2020-04-24 2020-04-24 Outpatient [facility] [id number] Univers 10:45:00 10:45:00 JEANIE ity of [facility] 2020-04-24 2020-04-24 Telephone [facility] 1.2.840.114 [id number] Univers 00:00:00 00:00:00 Jeanie Solorzano 350.1.13.10 it y of Surgical 4.2.7.2.686 [place] as Specialti [phone] Dc dical es 198 [facility] 2020-04-22 2020-04-22 Outpatient R [facility] [id number] Univers 14:00:00 14:00:00 ity of [facility] 2020-04-22 2020-04-22 Telephone [facility] 1.2.840.114 [id number] Univers 00:00:00 00:00:00 Jeanie Solorzano 350.1.13.10 it y of Surgical 4.2.7.2.686 [place] as Specialti [phone] Dc dical es 198 [facility] 2020-04-21 2020-04-21 Telephone [facility] 1.2.840.114 [id number] Univers 00:00:00 00:00:00 Jeanie Solorzano 350.1.13.10 it y of Surgical 4.2.7.2.686 [place] as Specialti [phone] Dc dical es 198 [facility] 2020-04-20 2020-04-20 [facility] 1.2.840.114 [id number] Univers 13:18:00 23:59:00 Encounter Jeanie Gibson 350.1.13.10 it[place] of [place] 4.2.7.2.686 [place] [phone] [facility] [address] [place] [address] 2020-04-20 2020-04-20 Public Health Program Manager Clif Alexis Lab Main [facility] 1.2.8 40.114 [id number] Univers 15:43:30 15:58:30 Visit Jeanie Olivares 350.1.13.10 ity of [place].2.[place] [phone] Me dical nal 353 [facility] 2020-04-20 2020-04-20 Office Olivares [facility] 1.2.089.176 [id number] Univers 14:51:38 15:28:40 Visit Jeanie Solorzano 350.1.13.10 it y of Surgical 4.2.7.2.686 Franco as Specialti [phone] Me dical es 198 [facility] 2020-04-20 2020-04-20 Outpatient R MARSHALL [facility] [id number] Univers 15:15:00 15:15:00 [facility] 2020-04-20 2020-04-20 Telephone [facility] 1.2.840.114 [id number] Univers 00:00:00 00:00:00 Jeanie Solorzano 350.1.13.10 it y of Surgical 4.2.7.2.686 [place] as Specialti [phone] Dc dical es 198 [facility] 2020-04-14 2020-04-14 Outpatient Mo CAM [facility] [id number] Univers 16:00:00 16:00:00 MADHAV ity [facility] 2020-04-08 2020-04-08 Ancillary Cristopher Reece [facility] 1.2.840. 114 [id number] Univers 16:28:21 17:08:21 Visit Jeanie Olivares 350.1.13.10 it[place] of [place].2.686 [place] [phone] Me dical nal 179 [facility] 2020-04-07 2020-04-07 Outpatient Vero Avelar [id number] Common 08:50:00 08:50:00 t [employer] Spir it Drive [facility] 2020-04-06 2020-04-06 Outpatient Vero Phamt [id number] Common 13:20:00 13:20:[address] Sp[address] [facility] 2020-04-03 2020-04-03 Ancillary Gloria Sena [facility] 1 .2.840.114 [id number] Univers 15:07:26 15:47:26 Visit Jeanie Olivares 350.1.13.10 it[place] of [place] 4.2.7.2.686 [place] [phone] Dc dical nal 179 [facility] 2020-04-03 2020-04-03 Outpatient [facility] [id number] Common 11:22:00 11:22:[address] Sp[address] [facility] 2020-03-26 2020-03-26 Ancillary Gloria Sena [facility] [id number] Univers 14:01:58 14:41:58 Visit Jeanie Olivares [id number] [facility] [id number] [phone] Dc dical nal 179 [facility] 2020-03-26 2020-03-26 Outpatient R MARSH[facility] [id number] Univers 14:00:00 14:00:00 JEANIE [email or web address] [facility] 2020-03-17 2020-03-17 [facility] [id number] Common 10:12:00 10:12:[address] [facility] 2020-03-17 2020-03-17 [facility] [id number] Common 09:45:00 09:45:[address] Sp[address] [facility] 2020-03-13 2020-03-13 [place] Cam [facility] 1.2.840.114 [id number] Univers 00:00:00 00:00:00 [facility] 350.1.13.10 it y of Surgical 4.2.7.2.686 Franco as Specialti [phone] Dc dical es 198 [facility] 2020-02-28 2020-02-28 Ancillary Claudine Reece [facility] 1.2.840 .114 [id number] Univers 13:40:00 14:20:00 Visit Jeanie Olivares 350.1.13.10 [place] [phone] Dc dical nal 179 [facility] 2020-02-24 2020-02-24 Ancillary Arelis Mancia [facility] 1.2.840. 114 [id number] Univers 13:46:56 14:26:56 Visit Jeanie Olivares 350.1.13.10 [place].7.2.[place] [phone] Dc dical nal 179 [facility] 2020-02-24 2020-02-24 Outpatient R MARSHALL [facility] [id number] Univers 13:40:00 13:40:00 [facility] 2020-02-18 2020-02-18 [facility] 1.2.840.114 [id number] Univers 00:00:00 00:00:00 [facility] 350.1.13.10 it y of Surgical 4.2.7.2.686 Franco as Specialti [phone] Dc dical es 198 [facility] 2020-01-27 2020-01-27 Outpatient Mo CAM [facility] [id number] Univers 14:45:00 14:45:00 [facility]-01[facility] 2020-01-24 [facility] 1.2.840.114 [id number] Univers 00:00:00 00:00:00 [facility] 350.1.13.10 it y of Surgical 4.2.7.2.686 Franco as Specialti [phone] Dc dical es 198 [facility] 2020-01-22 2020-01-22 [facility] 30 [id number] Common 08:39:00 08:39:00 t [employer] [facility] it Drive [facility] 2020-01-20 2020-01-20 [facility] [id number] Common 11:28:00 11:28:00 [employer] [facility] it Drive [facility] 2020-01-15 2020-01-15 Ancillary Gloria Sena [facility] 1 .2.840.114 [id number] Univers 14:13:47 15:21:49 Visit Jeanie Olivares 350.1.13.10 [place] [phone] Me dical nal 179 [facility] 2020-01-13 2020-01-13 Ancillary Cristopher Reece [facility] 1.2.840. 114 [id number] Univers 15:19:19 15:59:19 Visit Jeanie Olivares 350.1.13.10 [place].2.[place] [phone] Me dical nal 179 [facility] 2020-01-10 2020-01-10 Ancillary Claudine Reece [facility] 1.2.840 .114 [id number] Univers 11:22:12 12:16:12 Visit Jeanie Olivares 350.1.13.10 [place] 4[place].7.2.[place] [phone] Me dical nal 179 [facility] 2020-01-10 2020-01-10 Orders Doctor BREA 1.2.840.114 [id number] Univers 00:00:00 00:00:00 Only Unassigned, KARIN 350.1.13.10 ity of [place] [facility] 4.2.7.2.686 Franco as [phone] [address] 2020-01-06 2020-01-06 Telephone Marshall [facility] 1.2.840.114 [id number] Univers 00:00:00 00:00:00 Jeanie [facility] 350.1.13.10 it y of Surgical 4.2.7.2.686 Franco as Specialti [phone] Dc dical es 198 [facility] 2020-01-02 2020-01-02 [facility] [id number] Common 14:00:00 14:00:00 [employer] Spir it [address] [facility] 2020-01-01 2020-01-01 Ancillary Kathy Fontanez [facility] 1.2.840. 114 [id number] Univers 13:53:42 15:14:13 Visit Jeanie Olivares [place] 350.1.13.10 ity of [place] 4.2.7.2.686 Francojuan perkins Debra [phone] Me dical nal 179 [facility] 2020-01-01 2020-01-01 Outpatient R [facility] [id number] Univers 14:20:00 14:20:00 ity [facility] 2020-01-01 2020-01-01 Office [facility] 1.2.840.114 [id number] Univers 10:33:21 10:48:21 Visit [facility] 350.1.13.10 it y of Surgical 4.2.7.2.686 Franco as Specialti [phone] Me dical es 198 [facility] 2020-01-01 2020-01-01 [facility] [id number] Univers 10:30:00 10:30:00 [facility] 2019-12-24 2019-12-24 [facility] [id number] Univers 13:22:40 23:59:00 MADHAV ity [facility] 2019-12-24 2019-12-24 [facility] 1.2.840.114 [id number] Univers 13:22:00 23:59:00 Encounter [facility] 350.1.13.10 ity of Surgical 4.2.7.2.686 Franco as Specialti [phone] Me dical es 809 [facility] 2019-12-24 2019-12-24 Office [facility] 1.2.840.114 [id number] Univers 13:06:00 13:21:00 Visit [facility] 350.1.13.10 it y of Surgical 4.2.7.2.686 Franco as Specialti [phone] Me dical es 198 [facility] 2019-12-23 2019-12-23 Outpatient Brazyolande Phamt 29 [id number] Common 15:26:00 15:26:00 t [employer] Spir it [facility] 2019-12-18 2019-12-18 Patient Doctor [facility] 1.2.840.114 [id number] Univers 00:00:00 00:00:00 Secure Msg Unassigned, Health 350.1.13.10 ity of [place] Surgical 4.2.7.2.686 Franco as Specialti [phone] Me dical es 198 [facility] 2019-12-17 2019-12-17 Office [facility] 1.2.840.114 [id number] Univers 13:14:41 14:01:42 Visit Madhav ePrkins [facility] 350.1.13.10 it y of Surgical 4.2.7.2.686 Franco as Specialti [phone] Dc dical es 198 [facility] 2019-12-17 2019-12-17 [facility] [id number] Univers 13:30:00 13:30:00 MADHAV [facility] 2019-12-15 2019-12-15 Telephone [facility] 1.2.840.114 [id number] Univers 00:00:00 00:00:00 Jeanie Moon [facility] 350.1.13.10 it y of Surgical 4.2.7.2.686 Franco as Specialti [phone] Dc dical es 198 [facility] 2019-12-13 2019-12-13 Orders Doctor BREA 1.2.840.114 [id number] Univers 00:00:00 00:00:00 Only Unassigned, KARIN 350.1.13.10 ity of [place] [facility]OSPITAL 4.2.7.2.686 Franco as [phone] [facility] [address] [place] 2019-12-09 2019-12-12 Outpatient [facility] SOR [id number] Univers 07:00:00 13:20:00 JEANIE [facility] 2019-12-09 2019-12-12 [facility] 1.2.840.114 [id number] Univers 07:00:00 13:20:00 Encounter Jeanie [place] 350.1.13.10 it[place] 4.2.7.2.686 [place] [facility] [phone] [facility] [address] [place] 2019-12-11 2019-12-11 Outpatient [facility] VFP 798 [id number] [facility] 07:26:00 07:26:00 _J_ [id number] Family Practic e 2019-12-09 2019-12-09 Anesthesia Fariha [place] 1. 2.840.114 [id number] Univers 08:15:00 10:27:00 Mabel Priest 350.1.13.10 [place] 4.2.7.2.686 [place] [phone] [facility] [address] [place] 2019-12-09 2019-12-09 Orders Doctor BREA 1.2.840.114 [id number] Univers 00:00:00 00:00:00 Only Unassigned, KARIN 350.1.13.10 it[place] HOSPITAL 4.2.7.2.686 Franco as [phone] [address] 2019-12-06 2019-12-06 Public Health Program Manager Reuben, [facility] [place] 1.2.8 40.114 [id number] Univers 14:09:10 14:24:10 Visit Jeanie Olivares 350.1.13.10 [place].7.2.[place] [phone] Me dical nal 353 [facility] 2019-12-06 2019-12-06 Orders Doctor BREA 1.2.840.114 [id number] Univers 00:00:00 00:00:00 Only Unassigned, KARIN 350.1.13.10 ity of [place] HOSPITAL 4.2.7.2.686 Franco as [phone] [address] 2019-12-05 2019-12-05 Prep For Olivares [facility] 1.2.840.114 [id number] Univers 00:00:00 00:00:00 Surgery Jeaniemarco antonio Solorzano 350.1.13.10 it y of Surgical 4.2.7.2.686 Franco as Specialti [phone] Me dical es 198 [facility] 2019-12-05 2019-12-05 Telephone Marshall [facility] 1.2.840.114 [id number] Univers 00:00:00 00:00:00 Jeanie [facility] 350.1.13.10 it y of Surgical 4.2.7.2.686 Franco as Specialti [phone] Me dical es 198 [facility] 2019-12-04 2019-12-04 [facility] [id number] Common 13:45:00 13:45:00 [employer] Spir it Drive [facility] 2019-01-01 2019-12-02 Office [facility] 1.2.840.114 [id number] Univers 10:19:05 17:54:28 Visit Mauricio [place] 350.1.13.10 [place] 4.2.7.2.686 [place] [phone] Dc dical nal 059 [facility] 2019-12-02 2019-12-02 Letter [facility] 1.2.993.958 [id number] Univers 00:00:00 00:00:00 (Out) Jeanie Moon [employer] 350.1.13.10 it y of Surgical 4.2.7.2.686 Franco as Specialti [phone] Dc dical es 198 [facility] 2019-12-02 2019-12-02 Telephone [facility] 1.2.840.114 [id number] Univers 00:00:00 00:00:00 Jeanie [facility] 350.1.13.10 it y of Surgical 4.2.7.2.686 Franco as Specialti [phone] Dc dical es 198 [facility] 2019-12-02 2019-12-02 Letter OlivaresCount includes the [facility] 1.2.672.263 [id number] Univers 00:00:00 00:00:00 (Out) Jeanie Moon [employer] 350.1.13.10 it y of Surgical 4.2.7.2.686 Franco as Specialti [phone] Dc dical es 198 [facility] 2019-12-02 2019-12-02 Orders Doctor GUIDRY 1.2.840.114 [id number] Univers 00:00:00 00:00:00 Only Unassigned, KARIN 350.1.13.10 it[place] [facility] 4.2.7.2.686 Franco as [phone] [facility] [address] [place] 2019-11-29 2019-11-29 Orders Doctor GUIDRY 1.2.840.114 [id number] Univers 00:00:00 00:00:00 Only Unassigned, KARIN 350.1.13.10 it[place] of [place] HOSPITAL 4.2.7.2.686 Franco as [phone] [facility] [address] [place] 2019-11-27 2019-11-27 Outpatient Vero Avelar [id number] Common 11:15:00 11:15:00 [employer] Spir it [employer] [facility] 2019-11-15 2019-11-15 Orders Doctor BREA 1.2.840.114 [id number] Univers 00:00:00 00:00:00 Only Unassigned, KARIN 350.1.13.10 it[place] of [place] HOSPITAL 4.2.7.2.686 Franco as [phone] [facility] [address] [place] 2019-11-14 2019-11-14 Hospital [facility] 1.2.840.114 [id number] Univers 15:28:00 23:59:00 Encounter [facility] 350.1.13.10 ity of Surgical 4.2.7.2.686 Franco as Specialti [phone] Dc dical es 809 [facility] 2019-11-14 2019-11-14 [facility] [id number] Univers 14:45:00 15:38:34 [facility] 2019-11-14 2019-11-14 Office [facility] 1.2.840.114 [id number] Univers 14:50:54 15:05:54 Visit [facility] 350.1.13.10 it y of Surgical 4.2.7.2.686 Franco as Specialti [phone] Dc dical es 198 [facility] 2019-11-14 2019-11-14 [facility] [id number] Univers 10:30:00 10:30:00 JEANIE russo [facility] 2019-11-08 2019-11-08 [facility] [id number] Univers 08:15:00 08:15:00 JEANIE russo [facility] 2019-11-07 2019-11-07 [facility] [id number] Univers 10:30:00 10:30:00 JEANIE russo [facility] 2019-11-04 2019-11-04 Orders Doctor BREA 1.2.840.114 [id number] Univers 00:00:00 00:00:00 Only Unassigned, KARIN 350.1.13.10 it[place] [facility] 4.2.7.2.686 Franco as [phone] [address] 2019-10-31 2019-10-31 Outpatient Brazyolande Phamt [id number] Common 17:29:00 17:29:[address] [facility] 2019-09-30 2019-09-30 Outpatient Brazyolande Phamt [id number] Common 16:54:00 16:54:[address] [facility] 2019-09-04 2019-09-04 Outpatient Vero Phamt [id number] Common 09:00:00 09:00:[address] Sp[address] Drive [facility] 2019-06-13 2019-06-13 Jefferson Cam [facility] 1.2.840.114 [id number] [facility] 00:00:00 00:00:00 [facility] 350.1.13.10 it y of Surgical 4.2.7.2.686 Franco as Specialti [phone] Dc dical 198 [facility] 2019-05-30 2019-05-30 Outpatient Vero Phamt [id number] Common 10:45:00 10:45:00 t Specialty/U Sp ed[place] Specialty rology - [facility] 2019-05-20 2019-05-20 Outpatient Vero Avelar [id number] Common 15:00:00 15:00:[address] [facility] 2019-05-08 2019-05-08 Outpatient Brazyolande Phamt [id number] Common 09:45:00 09:45:[address] [facility] 2019-04-03 2019-04-03 Outpatient Brazyolande Phamt [id number] Common 12:00:00 12:00:[address] Sp[address] Drive [facility] 2019-03-01 2019-03-01 [facility] [id number] Common 09:51:00 09:51:[address] Sp[address] [facility] 2019-02-27 2019-02-27 [facility] [id number] Common 13:45:00 13:45:[address] Sp[address] [facility] 2019-02-11 2019-02-11 Outpatient Mo OLIVARES [facility] [id number] [facility] 16:00:00 16:54:05 [facility] 2019-02-04 2019-02-04 [facility] [id number] Common 14:34:00 14:34:[address] Sp[address] [facility] 2019-01-30 2019-01-30 [facility] [id number] Common 10:33:00 10:33:[address] [facility] 2019-01-29 2019-01-29 [facility] [id number] Common 14:00:00 14:00:[address] Sp[address] [facility] 2019-01-04 2019-01-04 Outpatient Mo OLIVARES [facility] [id number] Univers 14:45:00 14:45:00 [facility] 2018-12-26 2018-12-26 [facility] [id number] Common 16:11:00 16:11:[address] Sp[address] [facility] 2018 2018 [facility] [id number] Common 14:30:00 14:30:[address] Sp[address] [facility] 2018-12-12 2018-12-12 [facility] [id number] Common 14:31:00 14:31:[address] [facility] 2018-12-11 2018-12-11 [facility] [id number] Common 14:00:00 14:00:[address] Sp[address] [facility] 2018-12-11 2018-12-11 [facility] [id number] Common 09:30:00 09:30:00 [facility] 2018-12-05 2018-12-05 [facility] [id number] Common 09:21:00 09:21:[address] Sp[address] [facility] 2018-12-04 2018-12-04 [facility] [id number] Common 14:45:00 14:45:00 t [facility] 2018-12-04 2018-12-04 [facility] [id number] Common 12:18:00 12:18:[address] Sp[address] [facility] 2018-11-28 2018-11-28 [facility] [id number] Common 14:45:00 14:45:[address] [facility] 2018-11-27 2018-11-27 [facility] [id number] Common 12:23:00 12:23:[address] Sp[address] [facility] 2018-11-05 2018-11-05 [facility] [id number] Common 15:27:00 15:27:[address] Sp[address] [facility] 2018-10-29 2018-10-29 [facility] [id number] Common 15:06:00 15:06:[address] Sp[address] [facility] 2018-10-02 2018-10-02 [facility] [id number] Common 14:30:00 14:30:[address] Sp[address] Drive [facility] Results Test Description Test Time Test [...] 31.8 g/dL 31.6-35.1 RDW-SD (test code = 43589-2) 42.5 fL 39-49.9 RDW-CV (test code = 788-0) 13.2 % 12-15.5 PLT (test code = 777-3) See_Comment H [Au tomated message] The system which ge nerated this result transmit shyann reference range: 166 - 35 8 10*3/?L. The reference range was not used to interpret th is result as normal/abnormal . MPV (test code = 84536-0) 9.0 fL 9.5-12.9 L NRBC/100 WBC (test code = See_Comment [ Automated message] The 7711168529) system which [employer] nerated this result transmit shyann reference range: 0.0 - 10 .0 /100 WBCs. The reference r ronnie was not used to interpr et this result as normal/abnor mal. NRBC x10^3 (test code = <0.01 See_Comment [Au tomated message] The 3321223236) system which ge nerated this result transmit shyann reference range: 10*3/?L. The reference range was not u sed to interpret this result as normal/abnormal . GRAN MAT (NEUT) % (test code 81.5 % = 770-8) IMM GRAN % (test code = 0.60 % 6755463329) LYMPH % (test code = 736-9) 15.4 % MONO % (test code = 5905-5) 2.2 % EOS % (test code = 713-8) 0.1 % BASO % (test code = 706-2) 0.2 % GRAN MAT x10^3(ANC) (test 9.02 10*3/uL 1.88-7.09 H code = 2866382603) IMM GRAN x10^3 (test code = 0.07 10*3/uL 0-0.06 H 9029867068) LYMPH x10^3 (test code = 1.70 10*3/uL 1.32-3.29 731-0) MONO x10^3 (test code = 0.24 10*3/uL 0.33-0.92 L 742-7) EOS x10^3 (test code = <0.03 0.03-0.39 L 711-2) BASO x10^3 (test code = <0.03 0.01-0.07 704-7) Lab Interpretation (test Abnormal code = 00457-9) [facility] VW [id number] 19:50:00 No acute fracture. Small joint effusion [...] alignment of the knee arthroplasty without hardware [facility]Un[facility] <3 VW [id number] 19:52:13Status post total knee replacement with press-fit tibia and femur and excellent alignment no signs of periprosthetic fracture she does have a tibial tubercle osteophyte that is intact. ?[facility] GLUCOSE (AUTOMATED)2019-12-12 17:37:00 Test Item Value Reference Range Interpretation Comments POCT GLU (test code = 7722747876) 136 mg/dL 70-110 H Lab Interpretation (test code = Abnormal 22155-1) [facility] GLUCOSE (AUTOMATED)2019-12-12 14:18:00 Test Item Value Reference Range Interpretation Comments POCT GLU (test code = 5233741814) 102 mg/dL 70-110 Lab Interpretation (test code = Normal 18629-4) [facility] GLUCOSE (AUTOMATED)2019-12-12 02:54:00 Test Item Value Reference Range Interpretation Comments POCT GLU (test code = 9324563691) 111 mg/dL 70-110 H Lab Interpretation (test code = Abnormal 02765-5) [facility] GLUCOSE (AUTOMATED)2019-12-11 23:20:00 Test Item Value Reference Range Interpretation Comments POCT GLU (test code = 5774137039) 120 mg/dL 70-110 H Lab Interpretation (test code = Abnormal 36332-1) [facility] GLUCOSE (AUTOMATED)2019-12-11 17:55:00 Test Item Value Reference Range Interpretation Comments POCT GLU (test code = 2500757698) 122 mg/dL 70-110 H Lab Interpretation (test code = Abnormal 84337-2) [facility] GLUCOSE (AUTOMATED)2019-12-11 13:46:00 Test Item Value Reference Range Interpretation Comments POCT GLU (test code = 2447553119) 96 mg/dL 70-110 Lab Interpretation (test code = Normal 18032-1) [facility] GLUCOSE (AUTOMATED)2019-12-11 02:14:00 Test Item Value Reference Range Interpretation Comments POCT GLU (test code = 9259732637) 134 mg/dL 70-110 H Lab Interpretation (test code = Abnormal 80712-0) [facility] GLUCOSE (AUTOMATED)2019-12-10 22:28:00 Test Item Value Reference Range Interpretation Comments POCT GLU (test code = 4823728203) 126 mg/dL 70-110 H Lab Interpretation (test code = Abnormal 24910-8) [facility]2019-12-10 18:58:00 Test Item Value Reference Range Interpretation Comments POCT GLU (test code = 0439527555) 110 mg/dL 70-110 Lab Interpretation (test code = Normal 38652-2) [facility] METABOLIC PANEL (NA, K, CL, CO2, GLUCOSE, BUN, CREATININE, CA)2019-12-10 12:25:00 Test Item Value Reference Range Interpretation Comments NA (test code = 139 mmol/L 135-145 1384012504) K (test code = 3.9 mmol/L 3.5-5 2075610632) CL (test code = 101 mmol/L 98-108 7929401522) CO2 TOTAL (test code = 29 mmol/L 23-31 9431767848) AGAP (test code = 2-16 3085402467) BUN (test code = 11 mg/dL 7-23 1241761080) GLUCOSE (test code = 144 mg/dL 70-110 H 8976012016) CREATININE (test code = 0.54 mg/dL 0.5-1.04 6670958502) CALCIUM (test code = 9.3 mg/dL 8.6-10.6 0328599956) eGFR Calculation mL/min/1.73m2 (Non-) (test code = 7141718512) eGFR Calculation mL/min/1.73m2 () (test code = 4189477443) ALIDA (test code = ALIDA) Association of [...] tests). Lab Interpretation Abnormal (test code = 45653-0) [facility] WITH [id number] 12:16:00 Test Item Value Reference Range Interpretation Comments WBC (test code = See_Comment H [Automated 9622-2) message] The sy stem which generated this result transmitted reference range : 4.30 - 11.10 10*3/?L. The reference range was not used to interpret this result as normal/abnormal . RBC (test code = See_Comment [Automated 103-8) message] The sy stem which generated this [...] RDW-SD (test code = 41.1 fL 39-49.9 19500-8) RDW-CV (test code = 12.5 % 12-15.5 788-0) PLT (test code = See_Comment [Automated 977-3) message] The sy stem which generated this result transmitted reference range : 166 - 358 10*3/ ?L. The reference r ronnie was not used to interpret this result as normal/abnormal . MPV (test code = 9.9 fL 9.5-12.9 35492-3) NRBC/100 WBC (test See_Comment [Automat ed code = 1567046502) message] The system which generated this result transmitted reference range : 0.0 - 10.0 /100 WBCs. The refer ence range was not u sed to interpret th is result as normal/abnormal . NRBC x10^3 (test code <0.01 See_Comment [Auto mated = 9333511059) message] The s ystem which generated this result transmitted reference range : 10*3/?L. The reference range was not used to interpret this result as normal/abnormal . GRAN MAT (NEUT) % 76.5 % (test code = 770-8) IMM GRAN % (test code 0.60 % = 5612057587) LYMPH % (test code = 14.5 % 736-9) MONO % (test code = 8.3 % 5905-5) EOS % (test code = 0.0 % 713-8) BASO % (test code = 0.1 % 706-2) GRAN MAT x10^3(ANC) 8.91 10*3/uL 1.88-7.09 H (test code = 5461587517) IMM GRAN x10^3 (test 0.07 10*3/uL 0-0.06 H code = 9035233177) LYMPH x10^3 (test code 1.69 10*3/uL 1.32-3.29 = 731-0) MONO x10^3 (test code 0.97 10*3/uL 0.33-0.92 H = 742-7) EOS x10^3 (test code = <0.03 0.03-0.39 L 711-2) BASO x10^3 (test code <0.03 0.01-0.07 = 704-7) Lab Interpretation Abnormal (test code = 30703-7) [facility] GLUCOSE (AUTOMATED)2019-12-10 11:25:00 Test Item Value Reference Range Interpretation Comments POCT GLU (test code = [id number]) 169 mg/dL 70-110 H Lab Interpretation (test code = Abnormal 14606-2) [facility] 02:02:00 Test Item Value Reference Range Interpretation Comments POCT GLU (test code = 5988751766) 212 mg/dL 70-110 H Lab Interpretation (test code = Abnormal 75426-8) [facility] (A1C)2019-12-09 22:20:00 Test Item Value Reference Interpretation Comments Range HGB A1C (test code = See_Comment H [Autom ated 4548-4) message] The system which generated this result transmitted reference range : 4.0 - 6.0 % NGSP. The reference range was not used to interpret this result as normal/abnormal . ALIDA (test code = %A1C (NGSP) ALIAD) Interpretation (ADA)4.8-5.6 ? ? Normal or (Non-Diabetic Range)5.7-6.4 ? ? Increased Risk (Pre-Diabetic)>6.5 ?Diabetes Indicated Lab Interpretation Abnormal (test code = 51986-0) [facility] less than 3 views [id number] 19:04:07 Interval total knee arthroplasty without complication. [...] acute bony abnormality.Preliminary Report Dictated by Resident: Yi MD., have reviewed this study and agree with the abovereport. [facility]ressad[facility] canal canal [id number] 16:23:03 Mitchell Pa CRNA ? ? 12/09/2019 ?3:30 PM Nerve Block Laterality: LeftSurgical Anesthesia: no Start Time: 12/09/2019 10:02 AMEnd Time: 12/09/2019 10:20 Rynet/HARDIK: Mabel Nguyen CRNAPerformed by: resident/HARDIKPreanesthetic timeout completed [...] Additional Notes:Block performed by Nidia Shah CRNA [facility] canal canal [id number] 16:23:03Mitchell Pa CRNA ? ? 12/09/2019 ?3:30 PM Nerve Block Laterality: LeftSurgical Anesthesia: no Start Time: 12/09/2019 10:02 AMEnd Time: 12/09/2019 10:20 HARLEENesident/FUR FINISHER SEAMSTRESS: Mabel Nguyen CRNAPerformed by: resident/CRNAPreanesthetic timeout completed [...] mg/ml 1 mL Additional Notes:Block performed by Nidai Shah CRNA [facility]ressType and Screen - ONCE [id number] 14:40:06 Test Item Value Reference Range Interpretation Comments ABO & RH (test code A Negative Performe d at [facility] = 20) Laboratory Serv [facility] [place] [address] Free: [phone] A No. [id number] IAT (test code = Negative Performed a t [facility] 1185) Laboratory Serv [facility] [place], [place] [id number] Free: [phone] A No. [id number] [facility]PO[facility] GLUCOSE(AGE >30DAYS)2019-12-09 13:38:00 Test Item Value Reference Range Interpretation Comments POCT Glu (age>30days) (test code = 134 mg/dL 70-110 A 3342) Lab Interpretation (test code = Abnormal 23866-3) [facility]"
[2022-10-03] MEDS ORDERED: ALBUTEROL 2.5 MG/3 ML NEB SOL ONE ×5 (09:17→20:16)
[2022-10-03] MEDS ORDERED: IPRATROPIUM BROM 0.5MG/2.5ML ONE ×3 (09:17→18:11)
[2022-10-03 09:19] LABS: Absolute Lymphocytes (CBC) 2.1 K/uL (0.7-4.9); Hematocrit 40.2 % (36.0-45.0); Lymphocytes % 41.6 % (15.3-44.8); MCV 88.5 fL (80-100); MPV 6.8 fL (7.6-11.3); RBC Red Blood Cell Count 4.54 M/uL (3.86-4.86)
[2022-10-03 09:37] LABS: Potassium 3.4 mmol/L (3.5-5.1); Troponin High Sensitivity 10.9 pg/mL (<58.9)
--- NOTE | 2022-10-03 09:51 | RAD REPORT ---
EXAM DESCRIPTION: Constanza Single View10/03/2022 9:37 am CLINICAL HISTORY: Cough COMPARISON: June 2022 FINDINGS: The lungs appear clear of acute infiltrate. The heart is mildly to moderately enlarged IMPRESSION: No acute abnormalities displayed
[2022-10-03 10:17] LABS: SARS-COV-2 RT PCR NEGATIVE (NEGATIVE)
--- NOTE | 2022-10-03 10:33 | ER ---
Nurse's Notes [facility] Name: Eliza Hill Age: 61 yrs Sex: Female : 1960 Arrival Date: 10/03/2022 Time: 08:27 Bed 15 Private MD: Reji Farris Diagnosis: COPD/ Chronic obstructive pulmonary disease with (acute) exacerbation;Acute respiratory failure with hypoxia;Chest pain, unspecified;Hypokalemia;Essential (primary) hypertension Presentation: 10/03 08:38 Chief complaint: Patient states: cough X 2 weeks, SOB and wheezing, no fever , hx of iw COPD. 08:40 Coronavirus screen: Client presents with at least one sign or symptom that may indicate iw coronavirus-19. Ebola Screen: Patient negative for fever greater than or equal to 101.5 degrees Fahrenheit, and additional compatible Ebola Virus Disease symptoms Patient denies exposure to infectious person. Patient denies travel to an Ebola-affected area in the 21 days before illness onset. No symptoms or risks identified at this time. Initial Sepsis Screen: Does the patient meet any 2 criteria? No. Patient's initial sepsis screen is negative. Does the patient have a suspected source of infection? No. Patient's initial sepsis screen is negative. Risk Assessment: Do you want to hurt yourself or someone else? Patient reports no desire to harm self or others. Onset of symptoms was September 20, 2022. 08:40 Method Of Arrival: Wheelchair iw 08:40 Acuity: JENNA 3 iw Triage Assessment: 19:30 Respiratory: Onset: The symptoms/episode began/occurred Patient stated cough started pf1 for 2 weeks ago.. 19:30 Respiratory: Reports shortness of breath at rest on exertion cough that is productive. pf1 19:30 General: Appears in no apparent distress. comfortable, well groomed, well developed, pf1 Behavior is calm, cooperative, appropriate for age, quiet. Pain: Denies pain. EENT: No deficits noted. No signs and/or symptoms were reported regarding the EENT system. Neuro: No deficits noted. Level of Consciousness is awake, alert, obeys commands, Oriented to person, place, time, situation. Cardiovascular: No deficits noted. Capillary refill < 3 seconds. Respiratory:. Respiratory: Breath sounds with wheezes bilaterally. GI: No deficits noted. No signs and/or symptoms were reported involving the gastrointestinal system. Abdomen is round non-distended, Bowel sounds present X 4 quads. : No deficits noted. No signs and/or symptoms were reported regarding the genitourinary system. Derm: No deficits noted. No signs and/or symptoms reported regarding the dermatologic system. Musculoskeletal: No deficits noted. No signs and/or symptoms reported regarding the musculoskeletal system. 19:30 Respiratory: the patient has mild shortness of breath. pf1 Historical: - Allergies: 08:41 Latex, Natural Rubber; iw 08:41 Tramadol HCl; iw 08:41 Wellbutrin; iw - PMHx: 08:41 Arthritis; Chronic pain; COPD; Diabetes - NIDDM; Hypertension; Hypothyroidism; iw Osteoporosis; - PSHx: 08:41 idalmis knee; iw - Immunization history:: Adult Immunizations unknown, Client reports receiving the 2nd dose of the Covid vaccine. - Social history:: Smoking status: Patient/guardian denies using tobacco, the patient reports quitting approximately 5 years ago. Screenin:44 Abuse screen: Denies threats or abuse. Denies injuries from another. Nutritional db screening: No deficits noted. Tuberculosis screening: No symptoms or risk factors identified. Fall Risk No secondary diagnosis (0 pts). No IV (0 pts). Ambulatory Aid- None/Bed Rest/Nurse Assist (0 pts). Gait- Normal/Bed Rest/Wheelchair (0 pts) Mental Status- Oriented to own ability (0 pts). Total Edwards Fall Scale indicates No Risk (0-24 pts). Assessment: 08:42 Reassessment: Patient appears in no apparent distress at this time. Patient is alert, db oriented x 3, equal unlabored respirations, skin warm/dry/pink. cough, wheezing and SOB x 2 weeks. states took albuterol treatment prior to arrival but states is not feeling better. General: Appears in no apparent distress. comfortable, Behavior is calm, cooperative, appropriate for age, quiet. Pain: Complains of pain in chest. Neuro: No deficits noted. Level of Consciousness is awake, alert, obeys commands, Oriented to person, place, time, situation, Appropriate for age Speech is normal, Facial symmetry appears normal. Cardiovascular: Reports chest pain, shortness of breath, chest pain with cough Denies palpitations, Rhythm is sinus rhythm. Respiratory: Airway is patent Respiratory effort is even, unlabored, Respiratory pattern is regular, symmetrical, Sputum is thin, Breath sounds are coarse bilaterally. GI: No deficits noted. No signs and/or symptoms were reported involving the gastrointestinal system. : No deficits noted. No signs and/or symptoms were reported regarding the genitourinary system. EENT: No deficits noted. No signs and/or symptoms were reported regarding the EENT system. Derm: No deficits noted. No signs and/or symptoms reported regarding the dermatologic system. 10:26 Reassessment: patient O2 saturation drops to 60's and 70's when asleep. Once woken up db O2 increases back to 97%. Notified. Dr. Barreto. 12:01 Reassessment: Patient appears in no apparent distress at this time. Patient and/or db family updated on plan of care and expected duration. Pain level reassessed. Patient is alert, oriented x 3, equal unlabored respirations, skin warm/dry/pink. Patient states feeling better. Patient states symptoms have improved. 13:00 Reassessment: Patient appears in no apparent distress at this time. Patient and/or db family updated on plan of care and expected duration. Pain level reassessed. Patient is alert, oriented x 3, equal unlabored respirations, skin warm/dry/pink. 14:00 Reassessment: Patient appears in no apparent distress at this time. Patient and/or db family updated on plan of care and expected duration. Pain level reassessed. Patient is alert, oriented x 3, equal unlabored respirations, skin warm/dry/pink. 15:00 Reassessment: Patient appears in no apparent distress at this time. db Vital Signs: 08:40 BP 158 / 90; Pulse 62; Resp 20; Temp 99.2; Pulse Ox 95% on R/A; iw 09:00 BP 155 / 71; Pulse 57; Resp 18; Pulse Ox 99% on R/A; db 10:00 BP 143 / 59; Pulse 65; Resp 16; Pulse Ox 97% on R/A; db 11:01 BP 169 / 99; Pulse 64; Resp 18; Pulse Ox 95% on Nebulizer Mask; db 11:30 BP 166 / 81; Pulse 71; Resp 18; Pulse Ox 100% on Nebulizer Mask; db 14:30 BP 143 / 61; Pulse 69; Resp 16; Pulse Ox 96% on 2 lpm NC; db 19:00 BP 147 / 96; Pulse 66; Resp 18; Temp 98.5; Pulse Ox 98% on 2 lpm NC; Pain 0/10; pf1 ED Course: 08:27 Patient arrived in ED. rg4 08:27 Reji Farris DO is Private Physician. rg4 08:30 Balta Barreto DO is Attending Physician. ms3 08:33 Rosina Forman, RN is Primary Nurse. db 08:41 Triage completed. iw 08:41 Arm band placed on. iw 08:44 Patient has correct armband on for positive identification. Bed in low position. Call db light in reach. Side rails up X2. 09:00 Client placed on continuous cardiac and pulse oximetry monitoring. NIBP monitoring db applied. 09:08 Inserted saline lock: 20 gauge in right antecubital area, using aseptic technique. db Blood collected. 09:38 XRAY Chest (1 view) In Process Unspecified. EDMS 10:32 Cal Anand MD is Hospitalizing Provider. ms3 19:30 No provider procedures requiring assistance completed. pf1 19:44 Patient admitted, IV remains in place. pf1 Administered Medications: 09:20 Drug: Albuterol - atroVENT (ipratropium) (3:1) (2.5 mg - 0.5 mg) 3 ml Route: Nebulizer; db 10:27 Follow up: Response: No adverse reaction db 15:03 Follow up: Response: No adverse reaction db 10:54 Drug: SOLU-Medrol (methylPrednisoLONE) 125 mg Route: IVP; Site: right antecubital; db 15:04 Follow up: Response: No adverse reaction db 10:54 Drug: Albuterol 2.5 mg Route: Inhalation; db 10:54 Drug: Potassium Chloride 20 mEq Route: PO; db 15:04 Follow up: Response: No adverse reaction db 10:55 Drug: Magnesium Sulfate 2 grams Route: IVPB; Infused Over: 2 hrs; Site: right db antecubital; 11:59 Follow up: Response: No adverse reaction; IV Status: Completed infusion; IV Intake: db 100ml 11:33 Drug: Albuterol 2.5 mg Route: Inhalation; db 11:59 Drug: Albuterol 2.5 mg Route: Inhalation; db 15:04 Follow up: Response: No adverse reaction db Medication: 08:44 VIS not applicable for this client. db Intake: 11:59 IV: 100ml; Total: 100ml. db Outcome: 10:33 Decision to Hospitalize by Provider. ms3 19:44 Admitted to ER Hold. Please see [facility] for further documentation. pf1 19:44 Condition: stable 19:44 Instructed on the need for admit. 10/04 16:05 Patient left the ED. ll1 Signatures: Dispatcher [employer] EDKanwal Carvajal, RN RN Rachel Maynard 4 Ninfa Rosario RN RN ll1 Balta Barreto DO DO ms3 Rosina Forman, RN RN db Ana marie, RN RN pf1
--- NOTE | 2022-10-03 10:33 | EDPHYS ---
Physician Documentation [facility] Name: Eliza Hill Age: 61 yrs Sex: Female : 1960 Arrival Date: 10/03/2022 Time: 08:27 Bed 15 Private MD: [facility] ED Physician Balta Barreto HPI: 10/03 08:42 This 61 yrs old Female presents to ER via Wheelchair with complaints of Cough, ms3 Breathing Difficulty. 08:42 The patient or guardian reports cough, that is constant, described as severe, with no ms3 sputum. Onset: The symptoms/episode began/occurred acutely, 2 week(s) ago. Severity of symptoms: At their worst the symptoms were severe, in the emergency department the symptoms are unchanged. Modifying factors: The symptoms are alleviated by nothing, the symptoms are aggravated by nothing. Associated signs and symptoms: Pertinent positives: nausea, Pertinent negatives: chest pain, fever. Historical: - Allergies: 08:41 Latex, Natural Rubber; iw 08:41 Tramadol HCl; iw 08:41 Wellbutrin; iw - PMHx: 08:41 Arthritis; Chronic pain; COPD; Diabetes - NIDDM; Hypertension; Hypothyroidism; iw Osteoporosis; - PSHx: 08:41 idalmis knee; iw - Immunization history:: Adult Immunizations unknown, Client reports receiving the 2nd dose of the Covid vaccine. - Social history:: Smoking status: Patient/guardian denies using tobacco, the patient reports quitting approximately 5 years ago. ROS: 08:42 Constitutional: Negative for fever, and chills. ENT: Negative for injury, pain, and ms3 discharge, Neck: Negative for injury, pain, and swelling, Cardiovascular: Negative for chest pain, and palpitations. 08:42 Abdomen/GI: Negative for abdominal pain, nausea, vomiting, diarrhea, and constipation, MS/Extremity: Negative for injury and deformity, Skin: Negative for injury, rash, and discoloration. 08:42 Respiratory: Positive for cough, shortness of breath. 08:42 All other systems are negative. Exam: 08:42 Constitutional: This is a well developed, well nourished patient who is awake, alert, ms3 and in no acute distress. Head/Face: Normocephalic, atraumatic. Neck: Trachea midline, no cervical lymphadenopathy. Supple, full range of motion without nuchal rigidity, or vertebral point tenderness. No Meningismus. Chest/axilla: Normal chest wall appearance and motion. Nontender with no deformity. Cardiovascular: Regular rate and rhythm with a normal S1 and S2. No gallops, murmurs, or rubs. Normal PMI, no JVD. No pulse deficits. 08:42 Abdomen/GI: Soft, non-tender, with normal bowel sounds. No distension or tympany. No guarding or rebound. No evidence of tenderness throughout. Skin: Warm, dry with normal turgor. Normal color with no rashes, no lesions, and no evidence of cellulitis. MS/ Extremity: Pulses equal, no cyanosis. Neurovascular intact. Full, normal range of motion. 08:42 Respiratory: the patient does not display signs of respiratory distress, Respirations: normal, Breath sounds: wheezing: expiratory that is mild. 09:20 ECG was reviewed by the Attending Physician. ms3 Vital Signs: 08:40 BP 158 / 90; Pulse 62; Resp 20; Temp 99.2; Pulse Ox 95% on R/A; iw 09:00 BP 155 / 71; Pulse 57; Resp 18; Pulse Ox 99% on R/A; db 10:00 BP 143 / 59; Pulse 65; Resp 16; Pulse Ox 97% on R/A; db 11:01 BP 169 / 99; Pulse 64; Resp 18; Pulse Ox 95% on Nebulizer Mask; db 11:30 BP 166 / 81; Pulse 71; Resp 18; Pulse Ox 100% on Nebulizer Mask; db 14:30 BP 143 / 61; Pulse 69; Resp 16; Pulse Ox 96% on 2 lpm NC; db 19:00 BP 147 / 96; Pulse 66; Resp 18; Temp 98.5; Pulse Ox 98% on 2 lpm NC; Pain 0/10; pf1 MDM: 08:41 Patient medically screened. ms3 08:42 Differential Diagnosis: Bronchitis Influenza Upper Respiratory Infection Pneumonia. ms3 10:34 Data reviewed: vital signs, nurses notes, lab test result(s), EKG, radiologic studies, ms3 and as a result, I will admit patient. Data interpreted: teletypesetter monitor: rate is 65 beats/min, rhythm is normal sinus rhythm, regular, with no ectopy, Interpretation: normal rate, normal rhythm. Counseling: I had a detailed discussion with the patient and/or guardian regarding: the historical points, exam findings, and any diagnostic results supporting the discharge/admit diagnosis, lab results, radiology results, the need for further work-up and treatment in the hospital. ED course: Discussed labs, x-ray, EKG with patient and her . Patient with desaturation to 60% on room air while sleeping. Awake resting in bed patient's oxygen saturation 92%. Patient continues to have wheezing and mild respiratory distress despite breathing treatment at home and albuterol/Atrovent treatment in the emergency department. Magnesium and Solu-Medrol ordered. Discussed case with Jassi, and he accepts patient on behalf of Dr. Anand as observation.. 10/03 08:42 Order name: Basic Metabolic Panel; Complete Time: 09:57 ms3 10/03 08:42 Order name: CBC with Diff; Complete Time: 09:57 ms3 10/03 08:42 Order name: Troponin HS; Complete Time: 09:57 ms3 10/03 08:42 Order name: COVID-19/FLU A+B/RSV; Complete Time: 10:24 ms3 10/03 12:39 Order name: Troponin High Sensitivity; Complete Time: 16:31 EDMS 10/03 12:39 Order name: NT PRO-BNP; Complete Time: 16:31 EDMS 10/03 08:42 Order name: XRAY Chest (1 view); Complete Time: 09:57 ms3 10/04 00:19 Order name: Glucose, Ancillary Testing; Complete Time: 04:23 EDMS 10/04 03:02 Order name: CBC with Automated Diff; Complete Time: 04:23 EDMS 10/04 03:11 Order name: Basic Metabolic Panel; Complete Time: 04:23 EDMS 10/04 07:48 Order name: Glucose, Ancillary Testing EDMS 10/04 09:48 Order name: Glucose, Ancillary Testing EDMS 10/04 12:15 Order name: Glucose, Ancillary Testing EDMS 10/04 15:34 Order name: Glucose, Ancillary Testing EDMS 10/03 08:42 Order name: EKG; Complete Time: 08:42 ms3 10/03 08:42 Order name: Cardiac monitoring; Complete Time: 09:20 ms3 10/03 08:42 Order name: EKG - Nurse/Tech; Complete Time: 09:20 ms3 10/03 08:42 Order name: IV Saline Lock; Complete Time: 09:20 ms3 12 08:42 Order name: Labs collected and sent; Complete Time: 09:20 ms3 10/03 08:42 Order name: O2 Per Protocol; Complete Time: 09:20 ms3 10/03 08:42 Order name: O2 Sat Monitoring; Complete Time: 09:20 ms3 10/03 13:25 Order name: CT; Complete Time: 16:31 EDMS EC:20 Rate is 60 beats/min. Rhythm is regular. QRS Friona is Normal. RI interval is normal. QRS ms3 interval is normal. Clinical impression: Normal ECG. Interpreted by me. Reviewed by me. Administered Medications: 09:20 Drug: Albuterol - atroVENT (ipratropium) (3:1) (2.5 mg - 0.5 mg) 3 ml Route: Nebulizer; db 10:27 Follow up: Response: No adverse reaction db 15:03 Follow up: Response: No adverse reaction db 10:54 Drug: SOLU-Medrol (methylPrednisoLONE) 125 mg Route: IVP; Site: right antecubital; db 15:04 Follow up: Response: No adverse reaction db 10:54 Drug: Albuterol 2.5 mg Route: Inhalation; db 10:54 Drug: Potassium Chloride 20 mEq Route: PO; db 15:04 Follow up: Response: No adverse reaction db 10:55 Drug: Magnesium Sulfate 2 grams Route: IVPB; Infused Over: 2 hrs; Site: right db antecubital; 11:59 Follow up: Response: No adverse reaction; IV Status: Completed infusion; IV Intake: db 100ml 11:33 Drug: Albuterol 2.5 mg Route: Inhalation; db 11:59 Drug: Albuterol 2.5 mg Route: Inhalation; db 15:04 Follow up: Response: No adverse reaction db Disposition Summary: 10/03/22 10:33 Hospitalization Ordered Provider: Cal Anand ms3 Condition: Stable ms3 Problem: new ms3 Symptoms: are unchanged ms3 Bed/Room Type: Standard ms3 Hospitalization Status: Observation(10/03/22 10:33) ms3 Location: Telemetry/MedSurg (observation)(10/04/22 13:49) 1 Room Assignment: 201(10/04/22 13:49) ja1 Diagnosis - COPD/ Chronic obstructive pulmonary disease with (acute) exacerbation ms3 - Acute respiratory failure with hypoxia ms3 - Chest pain, unspecified ms3 - Hypokalemia ms3 - Essential (primary) hypertension ms3 Forms: - Medication Reconciliation Form ms3 - SBAR form ms3 Critical care time excluding procedures: 10:35 Critical care time: Bedside Care: 30 minutes, Consultation: 5 minutes. Total time: 35 ms3 minutes Signatures: Dispatcher [employer] EDKanwal Carvajal RN RN iw Rhea Maldonado RN ARTUR cg Arvind Ambrocio RN RN ja1 Balta Barreto DO DO ms3 Rosina Forman, RN RN Afia Valdivia PASimoneC PAArmani sb4 Corrections: (The following items were deleted from the chart) 10:33 10:33 Inpatient Admission ms3 ms3 10:33 10:33 Telemetry/MedSurg (Inpatient) ms3 ms3 10:33 10:33 ms3 ms3 19:44 10:33 Telemetry/MedSurg (observation) ms3 cg 19:44 10:33 ms3 cg 10/04 13:49 12 19:44 [facility] ER HOLD cg ja1 10/04 13:49 12 19:44 ERHOLD- cg ja1
[2022-10-03] MEDS ORDERED: METHYLPREDNISOLONE 125 MG INJ ONE (10:50)
[2022-10-03] MEDS ORDERED: POTASSIUM CL SA 10 MEQ TAB PO ONE (10:51)
[2022-10-03] MEDS ORDERED: Magnesium Sulfate 2gm IVPB 2 G/50 ML BAG IV ONE (10:51)
[2022-10-03] MEDS ORDERED: ACETAMINOPHEN 325 MG TABLET PO PRN (11:07)
[2022-10-03] MEDS ORDERED: HYDROCODONE/APAP 5/325 MG TAB PO PRN (11:07)
[2022-10-03] MEDS ORDERED: HYDRALAZINE HCL 20 MG/ML VIAL IV PRN (11:10)
[2022-10-03] MEDS ORDERED: ONDANSETRON 4 MG/2 ML VIAL IV PRN (11:13)
--- NOTE | 2022-10-03 11:15 | P.HP ---
Certification for Inpatient Patient admitted to: Observation With expected LOS: <2 Midnights Patient will require the following post-hospital care: None Practitioner: I am a practitioner with admitting privileges, knowledge of patient current condition, hospital course, and medical plan of care. Services: Services provided to patient in accordance with Admission requirements found in Title 42 Section 412.3 of the Code of Federal Regulations Patient History Date of Service: 10/03/22 Reason for admission: Shortness of breath and cough. History of Present Illness: Patient is a 61-year-old female with a past medical history significant for osteoarthritis, COPD, DM2, hypertension, insomnia, hypothyroidism, obesity, chronic pain syndrome who presents with complaint of shortness of breath and cough that has been ongoing for the past 2 weeks. Patient reported associated signs and symptoms of nausea, headache, dizziness and generalized malaise. Patient denies any other signs and symptoms. Symptoms are aggravated or relieved by nothing. Patient decided to present to the hospital due to worsening symptoms. Allergies bupropion HCl [From Wellbutrin] Allergy (Verified 09/10/14 16:26) Hives codeine Allergy (Unverified 02/26/15 19:38) Unknown diphenhydramine HCl [From Benadryl] Allergy (Unverified 02/26/15 19:38) Unknown ketorolac Allergy (Unverified 01/21/15 19:36) Unknown ketorolac tromethamine [From Toradol] Allergy (Verified 09/10/14 16:26) Hives Latex, Natural Rubber Allergy (Unverified 02/26/15 19:38) Unknown ondansetron HCl [From Zofran (as hydrochloride)] Allergy (Unverified 02/26/15 19:39) Unknown ropinirole HCl [From Requip] Allergy (Verified 09/10/14 16:26) Hives tramadol Allergy (Unverified 02/26/15 19:38) Unknown Tramadol HC Allergy (Uncoded 01/28/16 20:04) Unknown Home Medications: Atorvastatin Calcium [Lipitor*] 20 mg PO DAILY 09/10/14 Cyclosporine [Restasis] 1 gtt EACH EYE DAILY 09/10/14 Desvenlafaxine Succinate [Pristiq] 100 mg PO DAILY 09/10/14 Levothyroxine [Synthroid*] 75 mcg PO [id number] 09/10/14 Verapamil HCl [Verapamil ER] 120 mg PO DAILY 09/10/14 Albuterol Sulfate [Proair Hfa] 1 puff IH DAILY 03/05/15 Quetiapine Fumarate [Seroquel Xr] 200 mg PO DAILY 03/05/15 Trazodone HCl [Desyrel] 100 mg PO DAILY 03/05/15 lisinopriL [Prinivil*] 5 mg PO DAILY 03/05/15 - Past Medical/Surgical History Diabetic: No -: HTN -: Hypothyroidism -: Hyperlipidemia -: Depression -: Anxiety -: Insomnia -: Hysterectomy -: Tonsillectomy -: -: Breast Biopsy -: Knee Scope - Family History Father -: Heart disease, Other (see notes) (HLD) Mother -: Cancer, Other (see notes) (HLD) - Social History Smoking Status: Former smoker Alcohol use: No CD- Drugs: No Caffeine use: No Place of Residence: Home Review of Systems General: Malaise Eyes: Unremarkable ENT: Unremarkable Respiratory: Cough, Shortness of Breath Cardiovascular: Unremarkable Gastrointestinal: Nausea Genitourinary: Unremarkable Musculoskeletal: Unremarkable Integumentary: Unremarkable Neurological: Other (Headache, dizziness ) Lymphatics: Unremarkable Physical Examination - Physical Exam General: Alert, In no apparent distress, Cooperative, Mild distress HEENT: Atraumatic, PERRLA, Mucous membr. moist/pink, EOMI, Sclerae nonicteric Neck: Supple, 2+ carotid pulse no bruit, No LAD, Without JVD or thyroid abnor mality Respiratory: Diminished, Expiratory wheezes, Inspiratory wheezes Cardiovascular: No edema, Regular rate/rhythm, Normal S1 S2 Capillary refill: <2 Seconds Gastrointestinal: Normal bowel sounds, Soft and benign, No ascites, No tenderness, No rebound Musculoskeletal: No clubbing, No swelling, No tenderness Integumentary: No rashes, No breakdown, No significant lesion Neurological: Normal gait, Normal speech, Normal tone, Normal affect Lymphatics: No axilla or inguinal lymphadenopathy - Studies Laboratory Data (last 24 hrs) 10/03/22 09:08: WBC 5.10, Hgb 13.3, Hct 40.2, Plt Count 244 10/03/22 09:08: Sodium 137, Potassium 3.4 L, BUN 15, Creatinine 0.84, Glucose 103 Assessment and Plan - Plan -- Acute on chronic COPD exacerbation. CT chest indicates findings consistent with an infectious or inflammatory process. Patient placed on antibiotics. Continue steroids, neb treatment with Atrovent\albuterol and O2 therapy. --Sleep apnea. CPAP every bedtime. --DM2. BS monitoring with sliding scale insulin. --Hypertension. Poorly controlled. Continue home medications and hydralazine as needed. --Insomnia. Continue home medication. -- Hypothyroidism. Continue home medication. --Osteoarthritis\chronic pain syndrome. We will manage pain with current pain medication regimen. --Headache. Tylenol as needed. --Hypokalemia. Replete as needed. --CKD 2. Stable. We will continue to monitor renal functions --Obesity. Likely secondary to excess calories intake. Patient counseled on weight reduction, diet and excise therapy. --Anxiety disorder\depression. Continue home medications. --DVT prophylaxis with Lovenox subQ. Discharge Plan: Home Plan to discharge in: 48 Hours - Advance Directives Does patient have a Living Will: No Does patient have a Durable POA for Healthcare: No - Code Status/Comfort Care Code Status Assessed: Yes Physician Review: Patient Assessed, Agree with Above Assessment and Plan Critical Care: No
[2022-10-03] MEDS: INSULIN -REGULAR HUMAN 50 UNIT/0.5 ML ML SQ SCH ×2 (11:30→16:30)
[2022-10-03] MEDS: ASPIRIN 81 MG CHEWABLE TABLET PO SCH (12:00)
[2022-10-03] MEDS ORDERED: GUAIFENESIN/CODEINE 5ML UCUP PO PRN (12:49)
--- NOTE | 2022-10-03 13:25 | RAD REPORT ---
EXAM DESCRIPTION: CT - Thorax Wo Con - 10/03/2022 1:09 pm CLINICAL HISTORY: Persistent cough COMPARISON: No comparisons FINDINGS: Chest Wall: No suspicious thyroid nodules or pathologic lymphadenopathy. Lungs: Scattered nodularity and micro nodularity noted. This is mild. This is best seen the right low er lobe and caudal aspect of the left upper lobe. No consolidative pneumonia. No edema. Pleura: No significant effusions or pneumothorax. Mediastinum/vivienne: No pathologic lymphadenopathy. Pulmonary arteries/Aorta: Limited evaluation without contrast. No aortic aneurysm. Heart: No significant pericardial effusion. Normal heart size. Upper abdomen: No acute abnormality. Bones: No acute abnormality. Bridging osteophytes in the spine All CT scans are performed using dose optimization technique as appropriate and may include automated exposure control or mA/KV adjustment according to patient size. IMPRESSION: Mild nodularity present bilaterally consistent with a mild infectious or inflammatory pr ocess. No consolidative pneumonia. No suspicious lesions identified.
[2022-10-03] MEDS: ALBUTEROL 2.5 MG/3 ML NEB SOL NEB SCH ×2 (14:00→20:00)
[2022-10-03] MEDS: IPRATROPIUM BROM 0.5MG/2.5ML NEB SCH ×2 (14:00→20:00)
[2022-10-03] MEDS: Levofloxacin500mg IV 500 MG/100 ML BAG IV SCH (15:00)
[2022-10-03] MEDS: METHYLPREDNISOLONE 40 MG INJ IV SCH (17:00)
[2022-10-03] MEDS ORDERED: Levofloxacin500mg IV 500 MG/100 ML BAG IV ONE (19:03)
[2022-10-03] MEDS: ATORVASTATIN 20 MG TAB PO SCH (21:00)
[2022-10-03] MEDS: ALBUTEROL 2.5 MG/3 ML NEB SOL NEB PRN (22:15)
[2022-10-04] MEDS: INSULIN -REGULAR HUMAN 50 UNIT/0.5 ML ML SQ SCH ×5 (00:08→21:05)
[2022-10-04] MEDS: METHYLPREDNISOLONE 40 MG INJ IV SCH ×3 (01:00→16:43)
[2022-10-04] MEDS ORDERED: METHYLPREDNISOLONE 40 MG INJ ONE ×2 (01:29→08:30)
[2022-10-04] MEDS ORDERED: ATORVASTATIN 20 MG TAB ONE (01:29)
[2022-10-04] MEDS: TRAZODONE 50 MG TABLET PO SCH ×2 (02:10→21:05)
[2022-10-04] MEDS ORDERED: TRAZODONE 50 MG TABLET ONE (02:12)
[2022-10-04 03:00] LABS: Absolute Lymphocytes (CBC) 1.8 K/uL (0.7-4.9); Hematocrit 40.2 % (36.0-45.0); Lymphocytes % 30.9 % (15.3-44.8); MCV 87.5 fL (80-100); MPV 7.2 fL (7.6-11.3)
[2022-10-04 03:10] LABS: Potassium 4.5 mmol/L (3.5-5.1)
[2022-10-04 06:25] VITALS: BMI 39.9
[2022-10-04] MEDS ORDERED: lisinopriL 5 MG TAB ONE (08:30)
[2022-10-04] MEDS ORDERED: ASPIRIN 81 MG CHEWABLE TABLET ONE (08:30)
[2022-10-04] MEDS ORDERED: ENOXAPARIN 40 MG/0.4 ML SQ ONE (08:30)
[2022-10-04] MEDS: lisinopriL 5 MG TAB PO SCH (09:00)
[2022-10-04] MEDS: ENOXAPARIN 40 MG/0.4 ML SQ SCH (09:00)
[2022-10-04] MEDS: HOME MED 1 EA UNK (Cyclosporine [Restasis] Droperette) OPTH SCH (09:00)
[2022-10-04] MEDS: VERAPAMIL SR 240 MG TABLET PO SCH (09:00)
[2022-10-04] MEDS: QUETIAPINE FUMARATE 200 MG PO SCH (09:00)
[2022-10-04] MEDS: DESVENLAFAXINE SUCCINATE 50 MG ER TAB PO SCH (09:00)
[2022-10-04] MEDS: ASPIRIN 81 MG CHEWABLE TABLET PO SCH (09:00)
[2022-10-04] MEDS ORDERED: INSULIN -REGULAR HUMAN 50 UNIT/0.5 ML ML ONE ×2 (09:46→12:30)
[2022-10-04] MEDS: LEVOTHYROXINE SOD 0.075 MG TAB PO SCH (12:43)
--- NOTE | 2022-10-04 14:38 | EKG ---
Test Date: 2022-10-03 Test Time: 08:57:35 Stock Hanger: FRANK MEASUREMENT RESULTS: Intervals: Rate: 60 RI: 138 QRSD: 78 QT: 444 QTc: 444 Redford: P: 64 RI: 138 QRS: 28 T: 41 INTERPRETIVE STATEMENTS: Normal sinus rhythm Normal ECG Compared to ECG 07/17/2022 21:50:48 ST (T wave) deviation no longer present Possible ischemia no longer present Electronically Signed On 10-04-22 14:34:59 MANAGER TRANSPLANT by Jalen Chaves
[2022-10-04] MEDS: Levofloxacin500mg IV 500 MG/100 ML BAG IV SCH (15:00)
[2022-10-04] MEDS ORDERED: Levofloxacin500mg IV 500 MG/100 ML BAG IV ONE (15:16)
[2022-10-04] MEDS ORDERED: clonazePAM 1 MG TAB PO PRN (15:32)
--- NOTE | 2022-10-04 18:30 | P.PN ---
Subjective Date of Service: 10/04/22 Chief Complaint: Shortness of breath and cough. Patient states she feels much better today compared to yesterday. She stated her shortness of breath is better much better. She is complaining of anxiety. She also reported prior immediate reaction to steroid. She described her reaction as feeling cold and clammy. She has tolerated multiple doses of the steroid. Physical Examination - Vital Signs Temperature: 97.1 F Blood Pressure: 134/66 Pulse: 62 Respirations: 18 Pulse Ox (%): 97 Assessment And Plan - Current Problems (Diagnosis) (1) COPD exacerbation Current Visit: Yes Status: Acute (2) Acute respiratory failure with hypoxia Current Visit: Yes Status: Acute (3) Anxiety and depression Current Visit: Yes Status: Acute (4) Type 2 diabetes mellitus Current Visit: Yes Status: Acute - Plan Physical Exam General: Alert, In no apparent distress, Cooperative, NAD Neck: Supple, no elevated JVD. Respiratory: Diminished, clear to auscultation bilaterally. Cardiovascular: No edema, Regular rate/rhythm, Normal S1 S2 Gastrointestinal: Normal bowel sounds, Soft and benign, No ascites, No tenderness, No rebound Musculoskeletal: No clubbing, No swelling, No tenderness Integumentary: No rashes. Neurological: Normal speech, no focal motor deficit. Plan: Patient noted to be hypoxic on exertion today but overall clinically improved. Continue bronchodilators and nebs. Continue IV steroid for 1 more day. Resume home antihypertensives. Continue home medications for anxiety and depression. Klonopin as needed for anxiety. Insulin sliding scale for glucose management. Continue metformin. Watch for steroid-induced hyperglycemia. Physician Review: Patient Assessed, Agree with Above Assessment and Plan
[2022-10-04] MEDS: ATORVASTATIN 20 MG TAB PO SCH (21:05)
[2022-10-04] MEDS: VENLAFAXINE HCL 75 MG TABLET PO SCH (21:05)
[2022-10-05] MEDS: METHYLPREDNISOLONE 40 MG INJ IV SCH ×2 (00:25→09:20)
[2022-10-05] MEDS: LEVOTHYROXINE SOD 0.075 MG TAB PO SCH (05:38)
[2022-10-05 05:58] LABS: Absolute Lymphocytes (CBC) 1.6 K/uL (0.7-4.9); Hematocrit 42.9 % (36.0-45.0); Lymphocytes % 14.9 % (15.3-44.8); MPV 7.4 fL (7.6-11.3); RBC Red Blood Cell Count 4.87 M/uL (3.86-4.86)
[2022-10-05 06:15] LABS: Magnesium 2.5 mg/dL (1.6-2.4); Phosphorus 3.6 mg/dL (2.5-4.9)
[2022-10-05 06:18] LABS: Specific Gravity 1.024 (1.005-1.030); Transitional Epithelial <5 /HPF (None Seen); Urine Bilirubin NEGATIVE (Negative); Urine Blood Negative (Negative); Urine Clarity Clear (Clear); Urine Color Light-Yellow (Yellow); Urine Glucose NEGATIVE (Negative); Urine Mucus Slight /HPF (None Seen); Urine Protein TRACE (Negative); Urine RBC <5 /HPF (None Seen); Urine Urobilinogen Normal (Normal); Urine pH 5.5 (5.0-7.0)
[2022-10-05 06:22] LABS: Potassium 4.3 mmol/L (3.5-5.1); Thyroid Stimulating Hormone 0.243 uIU/mL (0.358-3.740)
[2022-10-05] MEDS: INSULIN -REGULAR HUMAN 50 UNIT/0.5 ML ML SQ SCH ×2 (07:30→11:30)
[2022-10-05] MEDS: ALBUTEROL 2.5 MG/3 ML NEB SOL NEB PRN (08:57)
[2022-10-05] MEDS ORDERED: BUPROPION HCL XL 150 MG TAB PO SCH (09:00)
[2022-10-05] MEDS ORDERED: METFORMIN HCL 500 MG TAB PO SCH (09:00)
[2022-10-05] MEDS ORDERED: HOME MED 1 EA UNK (Ropinirole Hcl [Ropinirole Hcl] 2 MG Tablet) PO SCH (09:00)
[2022-10-05] MEDS ORDERED: TEMAZEPAM 15 MG CAP PO SCH (09:00)
[2022-10-05] MEDS ORDERED: PANTOPRAZOLE 40MG TABLET PO SCH (09:00)
[2022-10-05] MEDS ORDERED: ROPINIROLE HCL 1 MG TAB PO SCH (09:00)
[2022-10-05] MEDS: HOME MED 1 EA UNK (Cyclosporine [Restasis] Droperette) OPTH SCH (09:00)
[2022-10-05] MEDS: QUETIAPINE FUMARATE 200 MG PO SCH (09:00)
[2022-10-05] MEDS ORDERED: TEMAZEPAM 30 MG PO SCH (09:00)
--- NOTE | 2022-10-05 09:09 | P.DS ---
Admission Date: 10/03/22 Discharge Date: 10/05/22 Disposition: ROUTINE DISCHARGE Discharge Condition: FAIR Reason for Admission: Shortness of breath and cough. - Problems (1) COPD exacerbation Current Visit: Yes Status: Acute (2) Acute respiratory failure with hypoxia Current Visit: Yes Status: Acute (3) Anxiety and depression Current Visit: Yes Status: Acute (4) Type 2 diabetes mellitus Current Visit: Yes Status: Acute Brief History of Present Illness: Patient is a 61-year-old female with a past medical history significant for osteoarthritis, COPD, DM2, hypertension, insomnia, hypothyroidism, obesity, chronic pain syndrome who presented with complaint of shortness of breath and cough that has been ongoing for the past 2 weeks. Patient reported associated signs and symptoms of nausea, headache, dizziness and generalized malaise. Patient decided to present to the hospital due to worsening symptoms. Chest x- ray done in the emergency department did not show any acute disease. Patient was hospitalized for further management. Hospital Course: Patient admitted to the medical floor and treated for COPD exacerbation with IV steroid, scheduled bronchodilators. CT chest was done which mild nodularity bilaterally consistent with a mild infectious or inflammatory process. Patient initially treated with Levaquin but she was complaining of itching. So Levaquin was discontinued. She was initially hypoxic with exertion.. Today her oxygen saturation is stable on room air both at rest and with exertion. Patient has clinically improved and deemed stable for discharge. He reported had new medications for anxiety and depression were not working. She states that she was previously on Seroquel which worked better. I discussed her concern with her psychiatrist, who agreed to switch back to Seroquel. CBC done during this admission was 0.2 indicating hyperthyroid state. Her 100 mcg Synthroid dose is decreased to 75 mcg on discharge. Patient informed to follow-up with his PCP within 1 to 2 weeks after discharge. Vital Signs/Physical Exam: Temp Pulse Resp BP Pulse Ox 97.7 F 52 16 132/71 96 10/05/22 08:00 10/05/22 08:00 10/05/22 08:00 10/05/22 08:00 10/05/22 08:00 General: Alert, In no apparent distress, Oriented x3 HEENT: Mucous membr. moist/pink Neck: JVD not distended Respiratory: Clear to auscultation bilaterally, Normal air movement Cardiovascular: Regular rate/rhythm, Normal S1 S2 Gastrointestinal: Soft and benign, Non-distended, No tenderness Musculoskeletal: No swelling Integumentary: No rashes Neurological: Normal strength at 5/5 x4 extr Laboratory Data at Discharge: WBC 10.60 K/uL (4.3-10.9) 10/05/22 05:25 Hgb 14.5 g/dL (12.0-15.0) 10/05/22 05:25 Hct 42.9 % (36.0-45.0) 10/05/22 05:25 Plt Count 369 K/uL (152-406) D 10/05/22 05:25 Sodium 136 mmol/L (136-145) 10/05/22 05:25 Potassium 4.3 mmol/L (3.5-5.1) 10/05/22 05:25 BUN 21 mg/dL (7-18) H 10/05/22 05:25 Creatinine 0.79 mg/dL (0.55-1.02) 10/05/22 05:25 Glucose 164 mg/dL (74-106) H 10/05/22 05:25 Phosphorus 3.6 mg/dL (2.5-4.9) 10/05/22 05:25 Magnesium 2.5 mg/dL (1.6-2.4) H 10/05/22 05:25 Home Medications: Atorvastatin Calcium [Lipitor*] 20 mg PO DAILY 09/10/14 Cyclosporine [Restasis] 1 gtt EACH EYE DAILY 09/10/14 Desvenlafaxine Succinate [Pristiq] 100 mg PO DAILY 09/10/14 Verapamil HCl [Verapamil ER] 120 mg PO DAILY 09/10/14 Quetiapine Fumarate [Seroquel Xr] 200 mg PO DAILY 03/05/15 lisinopriL [Prinivil*] 5 mg PO DAILY 03/05/15 Albuterol Neb [Proventil 0.083% Neb Soln] 1 unit NEB PRN PRN 10/04/22 Albuterol Sulfate [Proair Digihaler] 1 unit IN PRN PRN 10/04/22 Bupropion *Xl* [Wellbutrin XL*] 1 tab PO DAILY 10/04/22 Ferrous Sulfate [Ferrous Sulfate*] 325 mg PO DAILY 10/04/22 Losartan Potassium 100 mg PO DAILY 10/04/22 Metformin HCl 1 tab PO DAILY 10/04/22 Pantoprazole Sodium 1 tab PO DAILY 10/04/22 Ropinirole HCl 1 tab PO DAILY 10/04/22 Venlafaxine HCl 75 mg PO BID 10/04/22 Aspirin Chewable [Aspirin Chewable*] 81 mg PO DAILY #30 tab.chew 10/05/22 Fluticasone/Umeclidin/Vilanter [Trelegy Ellipta 200-62.5-25] 1 each IH DAILY 30 Days #1 kit 10/05/22 Guaifen W/Codeine Syrup [ROBITUSSIN A-C Syrup*] 10 ml PO QID PRN #1 bottle 10/05/22 Levothyroxine [Synthroid*] 0.075 mg PO [id number] #30 tab 10/05/22 clonazePAM [Clonazepam] 1 tab PO DAILY PRN #30 tab 10/05/22 predniSONE [Deltasone] 40 mg PO DAILY #10 tab 10/05/22 New Medications: Aspirin Chewable [Aspirin Chewable*] 81 mg PO DAILY #30 tab.chew clonazePAM [Clonazepam] 1 tab PO DAILY PRN #30 tab PRN Reason: Anxiety predniSONE [Deltasone] 40 mg PO DAILY #10 tab Guaifen W/Codeine Syrup [ROBITUSSIN A-C Syrup*] 10 ml PO QID PRN #1 bottle PRN Reason: Cough Levothyroxine [Synthroid*] 0.075 mg PO [id number] #30 tab Fluticasone/Umeclidin/Vilanter [Trelegy Ellipta 200-62.5-25] 1 each IH DAILY 30 Days #1 kit Diet: ADA Activity: Ad corina Followup: Reji Farris DO [Primary Care Provider] - 1-2 Weeks
[2022-10-05] MEDS: DESVENLAFAXINE SUCCINATE 50 MG ER TAB PO SCH (09:17)
[2022-10-05] MEDS: VERAPAMIL SR 240 MG TABLET PO SCH (09:18)
[2022-10-05] MEDS: VENLAFAXINE HCL 75 MG TABLET PO SCH (09:18)
[2022-10-05] MEDS: lisinopriL 5 MG TAB PO SCH (09:19)
[2022-10-05] MEDS: ASPIRIN 81 MG CHEWABLE TABLET PO SCH (09:20)
[2022-10-05] MEDS: ENOXAPARIN 40 MG/0.4 ML SQ SCH (09:20)
[2022-10-05 11:23] VITALS: O2SAT 98
[2022-10-05 13:14] VITALS: BP 118/61; TEMP 97.9
== END 2022-10-05 14:00 | disposition home or self-care (01) ==
LOC: ER 08:21 → ERHOLD 11:05 → 2ND 10-04 14:38
PROVIDERS: ADMIT Hospitalist; ATTEND Internal Medicine
DX: J44.1 Chronic obstructive pulmonary disease with (acute) exacerbation (principal); J96.01 Acute respiratory failure with hypoxia; E03.9 Hypothyroidism, unspecified; E66.9 Obesity, unspecified; G89.4 Chronic pain syndrome; G47.30 Sleep apnea, unspecified; R51.9 Headache, unspecified; E11.22 Type 2 diabetes mellitus with diabetic chronic kidney disease; I12.9 Hypertensive chronic kidney disease with stage 1 through stage 4 chronic kidney disease, or unspecified chronic kidney disease; N18.2 Chronic kidney disease, stage 2 (mild); F41.9 Anxiety disorder, unspecified; G47.00 Insomnia, unspecified; F32.A Depression, unspecified; Z88.6 Allergy status to analgesic agent; Z91.040 Latex allergy status; Z20.822 Contact with and (suspected) exposure to COVID-19
CPT/HCPCS: 96365; 93005; 85025 ×3; 81001; 80048 ×3; 36415 ×3; 83735; 84100; 82947 ×9; 84443; 84484 ×2; 83880; 0241U; 71250; 71045; 94640 ×2; 96375; 99285; J1815 ×3; J7613 ×6; J7644 ×3; J1650 ×2; J3475; J2930; J2920 ×5; G0378